=== PATIENT | male | born 1950 | race Two or more races ===

== ENCOUNTER 2018-09-27 13:56 | Inpatient (IN) | payer MEDICARE, OTHER ==
[~2018-09-27] VITALS: Ht 175.3 cm; Wt 74.4 kg
--- NOTE | 2018-09-27 13:52 | Emergency Room Report ---
History of Present Illness General Chief Complaint: Altered Mental Status Source: Patient Present Illness HPI Patient is a 68-year-old male brought in by EMS after increased altered mental status. Patient had recent increased lethargy. Patient a prior history of CVA with right-sided weakness as well as brain tumor. Patient had recently been discharged from [facility]. Patient had been noted to be increased confused for approximate 1 hour. He was noted to have some baseline alteration of his mental status but normally is able to eat as well as to follow simple commands and speak. Allergies: Coded Allergies: No Known Allergies (Unverified , 09/27/18) Patient History Past Medical History: see triage record Reviewed Nursing Documentation: PMH: Agreed; PSxH: Agreed Review of Systems All Other Systems: negative except mentioned in HPI Physical Exam Vital Signs Date Time Temp Pulse Resp B/P (MAP) Pulse Ox O2 Delivery O2 Flow Rate FiO2 09/27/18 13:39 97.5 82 16 118/70 96 Room Air Sp02 EP Interpretation: reviewed, normal General Appearance: alert, Chronically Ill Head: atraumatic ENT: normal ENT inspection, other - nonverbal Neck: supple, no bony tend, limited range of motion Respiratory: normal inspection, lungs clear, normal breath sounds, no respiratory distress, no retraction, no wheezing Cardiovascular #1: regular rate, rhythm, no edema Gastrointestinal: normal inspection, normal bowel sounds, non tender, soft, no guarding, no hernia Genitourinary: no CVA tenderness Neurologic: alert, aphasia, motor weakness - right upper extremity Psychiatric: normal inspection, judgement/insight normal, mood/affect normal Skin: normal inspection, normal color, no rash Medical Decision Making Diagnostic Impression: Primary Impression: Altered mental status Additional Impressions: Brain tumor Seizure disorder ER Course Patient presented for altered mental status. Differential diagnosis included but was not limited to ischemic stroke, subarachnoid hemorrhage, hypoglycemia, spinal cord injury, neurodegenerative disorder, urinary tract infection, hypoxemia. Because of complexity of patient's case laboratory testing and imaging studies were ordered.Laboratory testing was notable for increased Depakote level EKG interpreted by me showed normal sinus rhythm with a rate of [address] or T wave changes. Dr. Camacho Braun was contacted for inpatient management Labs Test 09/27/18 14:10 White Blood Count 6.1 K/UL (4.8-10.8) Red Blood Count 4.25 M/UL (4.70-6.10) Hemoglobin 13.5 G/DL (14.2-18.0) Hematocrit 38.1 % (42.0-52.0) Mean Corpuscular Volume 90 FL (80-99) Mean Corpuscular Hemoglobin 31.7 PG (27.0-31.0) Mean Corpuscular Hemoglobin Concent 35.3 G/DL (32.0-36.0) Red Cell Distribution Width 13.0 % (11.6-14.8) Platelet Count 78 K/UL (150-450) Mean Platelet Volume 8.1 FL (6.5-10.1) Neutrophils (%) (Auto) % (45.0-75.0) Lymphocytes (%) (Auto) % (20.0-45.0) Monocytes (%) (Auto) % (1.0-10.0) Eosinophils (%) (Auto) % (0.0-3.0) Basophils (%) (Auto) % (0.0-2.0) Differential Total Cells Counted 100 Neutrophils % (Manual) 91 % (45-75) Lymphocytes % (Manual) 5 % (20-45) Monocytes % (Manual) 4 % (1-10) Eosinophils % (Manual) 0 % (0-3) Basophils % (Manual) 0 % (0-2) Band Neutrophils 0 % (0-8) Platelet Estimate Decreased Platelet Morphology Normal Red Blood Cell Morphology Normal Prothrombin Time 11.6 SEC (9.30-11.50) Prothromb Time International Ratio 1.1 (0.9-1.1) Activated Partial Thromboplast Time 28 SEC (23-33) Sodium Level 134 MMOL/L (136-145) Potassium Level 4.4 MMOL/L (3.5-5.1) Chloride Level 98 MMOL/L (98-107) Carbon Dioxide Level 27 MMOL/L (21-32) Anion Gap 9 mmol/L (5-15) Blood Urea Nitrogen 18 mg/dL (7-18) Creatinine 0.7 MG/DL (0.55-1.30) Estimat Glomerular Filtration Rate > 60 mL/min (>60) Glucose Level 151 MG/DL (74-106) Lactic Acid Level 3.40 mmol/L (0.4-2.0) Calcium Level 8.4 MG/DL (8.5-10.1) Phosphorus Level 3.3 MG/DL (2.5-4.9) Magnesium Level 1.7 MG/DL (1.8-2.4) Total Bilirubin 0.5 MG/DL (0.2-1.0) Aspartate Amino Transf (AST/SGOT) 25 U/L (15-37) Alanine Aminotransferase (ALT/SGPT) 18 U/L (12-78) Alkaline Phosphatase 43 U/L (46-116) Ammonia 41 umol/L (11-32) Total Creatine Kinase 188 U/L (26-308) Creatine Kinase MB 2.4 NG/ML (0.0-3.6) Creatine Kinase MB Relative Index 1.2 Troponin I 0.165 ng/mL (0.000-0.056) Pro-B-Type Natriuretic Peptide 551 pg/mL (0-125) Total Protein 5.6 G/DL (6.4-8.2) Albumin 2.6 G/DL (3.4-5.0) Globulin 3.0 g/dL Albumin/Globulin Ratio 0.9 (1.0-2.7) Lipase 69 U/L (73-393) Valproic Acid (Depakene) Level 121 MCG/ML (50-100) EKG Diagnostic Results Rate: normal - 75 Rhythm: NSR ST Segments: no acute changes Last Vital Signs Date Time Temp Pulse Resp B/P (MAP) Pulse Ox O2 Delivery O2 Flow Rate FiO2 09/27/18 13:39 97.5 82 16 118/70 96 Room Air Status: unchanged Disposition: ADMITTED INPATIENT Condition: Serious Kristofer Talavera MD Sep 27, 2018 13:52
[2018-09-27 14:00] VITALS: BP 118/70
--- NOTE | 2018-09-27 14:00 | NUR ---
ED Nurse Note: pt brought in to ER by ambulance from [facility] due to AMS. per EMS they got report from [facility] staff that pt has lower mental status which started by 1200 during lunch time. pt non verbal and flat affect. mental status unable to determine at this moment. pt has stroke in the past and has Rt side weakness. pt is at room air and no skin issue noted in anteri Addendum: 09/27/18 at 1614 by [email or web address] ED Nurse Note: pt brought in to ER by ambulance from [facility] due to AMS. per EMS they got report from [facility] staff that pt has lower mental status which started by 1200 during lunch time. pt non verbal and flat affect. mental status unable to determine at this moment. pt has stroke in the past and has Rt side weakness. pt is at room air and no skin issue noted in anterior body. posterior body will be assessed after blood and urine sample collected.
--- NOTE | 2018-09-27 14:20 | NUR ---
ED Nurse Note: Coccyx redness noted. no opened skin lesion noted.
[2018-09-27 14:30] LABS: HEMATOCRIT 38.1 % (42.0-52.0); HEMOGLOBIN 13.5 G/DL (14.2-18.0); MEAN CORPUSCULAR VOLUME 90 FL (80-99); PLATELET COUNT 78 K/UL (150-450); RED BLOOD COUNT 4.25 M/UL (4.70-6.10); WHITE BLOOD COUNT 6.1 K/UL (4.8-10.8)
[2018-09-27 14:38] LABS: ANION GAP 9 mmol/L (5-15); BLOOD UREA NITROGEN 18 mg/dL (7-18); CALCIUM 8.4 MG/DL (8.5-10.1); CARBON DIOXIDE 27 MMOL/L (21-32); CHLORIDE 98 MMOL/L (98-107); CREATININE 0.7 MG/DL (0.55-1.30); INR 1.1 (0.9-1.1); POTASSIUM 4.4 MMOL/L (3.5-5.1); SODIUM 134 MMOL/L (136-145)
[2018-09-27 14:41] LABS: AMMONIA 41 umol/L (11-32)
[2018-09-27 14:55] LABS: ALANINE AMINOTRANSFERASE 18 U/L (12-78); ALBUMIN 2.6 G/DL (3.4-5.0); ALBUMIN/GLOBULIN RATIO 0.9 (1.0-2.7); ALKALINE PHOSPHATASE 43 U/L (46-116); ASPARTATE AMINO TRANSFERASE 25 U/L (15-37); BILIRUBIN,TOTAL 0.5 MG/DL (0.2-1.0); CKMB 2.4 NG/ML (0.0-3.6); CREATINE KINASE 188 U/L (26-308); PHOSPHORUS 3.3 MG/DL (2.5-4.9)
[2018-09-27 15:00] VITALS: BP 126/63
[2018-09-27 15:53] LABS: APPEARANCE,URINE CLEAR; BILIRUBIN, URINE NEGATIVE (NEGATIVE); GLUCOSE, URINE (UA) 1+ (NEGATIVE); KETONES,URINE 3+ (NEGATIVE); LEUKOCYTE ESTERASE ,URINE NEGATIVE (NEGATIVE); NITRITE,URINE NEGATIVE (NEGATIVE); PH,URINE 5 (4.5-8.0); PROTEIN,URINE 1+ (NEGATIVE); UROBILINOGEN,URINE 1 MG/DL (0.0-1.0)
[2018-09-27 15:54] LABS: COLOR,URINE YELLOW
[2018-09-27 16:00] VITALS: BP 129/74
--- NOTE | 2018-09-27 16:34 | NUR ---
ED Nurse Note: Report given to CHIDI Fischer
[2018-09-27] MEDS ORDERED: CARVEDILOL25 MG ORAL (16:55)
[2018-09-27] MEDS ORDERED: GLUCOPHAGE1000 MG ORAL (16:55)
[2018-09-27] MEDS ORDERED: DIVALPROEX SOD500 MG PO (16:55)
[2018-09-27] MEDS ORDERED: LOSARTAN POTAS100 MG ORAL (16:55)
[2018-09-27] MEDS ORDERED: VIMPAT200 MG PO (16:55)
[2018-09-27] MEDS ORDERED: VITAMIN D1000 UNI1 ORAL (16:55)
[2018-09-27] MEDS ORDERED: TEMOZOLOMIDE PO (16:55)
[2018-09-27] MEDS ORDERED: ZANTAC150 MG ORAL (16:55)
[2018-09-27] MEDS ORDERED: ELIQUIS5 MG PO (16:55)
[2018-09-27] MEDS ORDERED: DOCUSATE SODIU100 M2 ORAL (16:55)
[2018-09-27] MEDS ORDERED: LIPITOR80 MG ORAL (16:55)
[2018-09-27] MEDS ORDERED: MIRALAX17 G2 ORAL (16:55)
[2018-09-27] MEDS ORDERED: HUMALOG100 UNIT/4 SUBQ (16:55)
[2018-09-27] MEDS ORDERED: JANUVIA25 MG ORAL (16:55)
[2018-09-27] MEDS ORDERED: DEXAMETHASONE2 MG PO (16:55)
[2018-09-27] MEDS ORDERED: DEPAKOTE125 MG PO ×2 (16:55→16:56)
[2018-09-27 17:00] VITALS: BP 137/82
--- NOTE | 2018-09-27 17:00 | NUR ---
ED Nurse Note: Pt left department with 1 computer system technician and 1 RN in stable condition.
[2018-09-27] MEDS ORDERED: Morphine Sulfate 2mg/ml Inj(IV/IM USE ONLY) IVP PRN (17:45)
[2018-09-27] MEDS ORDERED: Mylanta II UD 30ml ORAL PRN (17:45)
[2018-09-27] MEDS ORDERED: Miralax 17gm pkt ORAL PRN (17:45)
[2018-09-27] MEDS ORDERED: LORazepam Inj 2mg/ml 1ml IV PRN (17:45)
[2018-09-27] MEDS ORDERED: Zolpidem 5mg tab ORAL PRN (17:45)
--- NOTE | 2018-09-27 19:30 | NUR ---
NURSE NOTES: Received report from CHIDI Goodrich. patient seen in bed in semi loza position. alert, but non verbal at this time. no S/Sx of pain is noted via FLACC scale. On room air, no SOB or respiratory distress is noted. IV site is to Left AC 20g and is intact. noted with carroll cath, urine is draining. Bed is in lowest position call light is within easy reach while in bed. will continue to monitor,
[2018-09-27 20:00] VITALS: BP 130/80
--- NOTE | 2018-09-27 20:43 | NUR ---
HAND-OFF: Report given to Radha MURILLO.
[2018-09-27] MEDS: Carvedilol 25mg Tab ORAL SCH (20:52)
[2018-09-27] MEDS: Depakote 500mg tab ORAL SCH (20:53)
[2018-09-27] MEDS: Heparin 5000 units/ml inj SUBQ SCH (20:54)
[2018-09-27] MEDS: NovoLOG Insulin Flexpen SUBQ SCH (20:56)
[2018-09-28] VITALS: BP 131/77
[2018-09-28 04:00] VITALS: BP 122/78
[2018-09-28] MEDS: NovoLOG Insulin Flexpen SUBQ SCH ×4 (06:30→21:33)
--- NOTE | 2018-09-28 07:22 | NUR ---
HAND-OFF: Report given to Jay Kerr RN.
--- NOTE | 2018-09-28 07:31 | NUR ---
NURSE NOTES: Received report from CHIDI Mckoy. Patient in bed resting, no active s/s cardiac, respiratory distress noticed at this time, patient on room air, SR with HR 74, patient nonverbal. Mota catheter draining well to gravity. IV on left AC 20G, asymptomatic, patent, intact. Bed in lowest position, side rails upx3, call light within reach. Will continue to monitor.
[2018-09-28 07:57] LABS: HEMATOCRIT 41.3 % (42.0-52.0); HEMOGLOBIN 14.6 G/DL (14.2-18.0); MEAN CORPUSCULAR VOLUME 89 FL (80-99); PLATELET COUNT 74 K/UL (150-450); RED BLOOD COUNT 4.63 M/UL (4.70-6.10); RED CELL DISTRIBUTION WIDTH 13.1 % (11.6-14.8); WHITE BLOOD COUNT 4.7 K/UL (4.8-10.8)
[2018-09-28 08:00] VITALS: BP 121/66
[2018-09-28 08:29] LABS: ALANINE AMINOTRANSFERASE 16 U/L (12-78); ALBUMIN 2.6 G/DL (3.4-5.0); ALBUMIN/GLOBULIN RATIO 0.9 (1.0-2.7); ALKALINE PHOSPHATASE 38 U/L (46-116); ANION GAP 5 mmol/L (5-15); ASPARTATE AMINO TRANSFERASE 21 U/L (15-37); BILIRUBIN,TOTAL 0.6 MG/DL (0.2-1.0); BLOOD UREA NITROGEN 15 mg/dL (7-18); CALCIUM 8.6 MG/DL (8.5-10.1); CARBON DIOXIDE 31 MMOL/L (21-32); CHLORIDE 100 MMOL/L (98-107); CHOLESTEROL 153 MG/DL (< 200); CREATININE 0.6 MG/DL (0.55-1.30); HDL CHOLESTEROL 29 MG/DL (40-60); POTASSIUM 3.9 MMOL/L (3.5-5.1); SODIUM 136 MMOL/L (136-145); TRIGLYCERIDES 100 MG/DL (30-150)
[2018-09-28] MEDS: Losartan 25mg tab ORAL SCH (08:33)
[2018-09-28] MEDS: sitaGLIPtin 50mg tab ORAL SCH (08:33)
[2018-09-28] MEDS: Heparin 5000 units/ml inj SUBQ SCH ×2 (08:34→21:00)
[2018-09-28] MEDS: Depakote 500mg tab ORAL SCH ×2 (08:34→21:35)
[2018-09-28] MEDS: Carvedilol 25mg Tab ORAL SCH ×2 (08:34→21:35)
--- NOTE | 2018-09-28 10:59 | Consultation ---
History of Present Illness General Date patient seen: Sep 28, 2018 Chief Complaint: Altered Mental Status Present Illness HPI Patient is a 68-year-old male brought in by EMS after increased altered mental status. Patient had recent increased lethargy. Patient a prior history of CVA with right-sided weakness as well as brain tumor. Patient had recently been discharged from [facility]. Patient had been noted to be increased confused for approximate 1 hour. He was noted to have some baseline alteration of his mental status but normally is able to eat as well as to follow simple commands and speak. Allergies: Coded Allergies: No Known Allergies (Unverified , 09/27/18) Medication History Scheduled Atorvastatin (Lipitor), 80 MG ORAL BEDTIME, (Reported) Carvedilol* (Carvedilol*), 25 MG ORAL EVERY 12 HOURS, (Reported) Cholecalciferol (Vitamin D3)* (Vitamin D*), 50,000 UNITS ORAL QWEEK, (Reported) Docusate Sodium (Docusate Sodium), 100 MG ORAL DAILY, (Reported) Lacosamide (Vimpat), 200 MG PO BID, (Reported) Losartan Potassium (Losartan Potassium), 25 MG ORAL DAILY, (Reported) Metformin Hcl (Glucophage), 1,000 MG ORAL DAILY, (Reported) Polyethylene Glycol 3350* (Miralax*), 17 GM ORAL DAILY, (Reported) Ranitidine Hcl* (Zantac*), 150 MG ORAL DAILY, (Reported) Sitagliptin* (Januvia*), 50 MG ORAL DAILY, (Reported) Miscellaneous Medications Apixaban (Eliquis), 5 MG PO, (Reported) Dexamethasone* (Decadron*), 4 MG PO, (Reported) Divalproex Sodium (Depakote), 500 MG PO, (Reported) Divalproex Sodium (Divalproex Sodium), 1,500 MG PO, (Reported) Divalproex Sodium (Depakote), 1,500 MG PO, (Reported) Insulin Lispro (Humalog), 0 SUBQ, (Reported) Temozolomide (Temozolomide), 5 MG PO, (Reported) Patient History Healthcare decision maker N Resuscitation status Full Code Advanced Directive on File No Past Medical/Surgical History Past Medical/Surgical History: (1) Diabetes mellitus (2) Hypertension (3) Brain tumor (4) Seizure disorder Review of Systems Hematologic/Lymphatic: Reports: no symptoms All Other Systems: negative except mentioned in HPI Physical Exam General Appearance: WD/WN Lines, tubes and drains: peripheral HEENT: normocephalic, atraumatic Neck: non-tender, normal alignment Respiratory/Chest: chest wall non-tender, lungs clear Breasts: no masses Cardiovascular/Chest: normal peripheral pulses Abdomen: normal bowel sounds, non tender Genitourinary/Rectal: normal genital exam Extremities: normal range of motion Skin Exam: normal pigmentation Neurologic: core carrier II-XII grossly normal Last 24 Hour Vital Signs Date Time Temp Pulse Resp B/P (MAP) Pulse Ox O2 Delivery O2 Flow Rate FiO2 09/28/18 09:00 Room Air 09/28/18 08:34 78 121/66 09/28/18 08:33 121/66 09/28/18 08:00 80 09/28/18 08:00 96.8 78 19 121/66 (84) 96 09/28/18 04:00 98.1 74 17 122/78 (93) 98 09/28/18 03:22 75 09/28/18 00:00 97.8 79 17 131/77 (95) 97 09/27/18 23:28 79 09/27/18 21:00 Room Air 09/27/18 20:52 90 140/79 09/27/18 20:00 98.0 90 18 130/80 (97) 98 09/27/18 19:40 79 09/27/18 18:00 Room Air 09/27/18 17:00 97.5 93 17 137/82 92 Room Air 09/27/18 17:00 97.5 93 17 137/82 92 Room Air 09/27/18 16:00 98.0 82 16 129/74 96 Room Air 09/27/18 15:00 97.7 80 16 126/63 98 Room Air 09/27/18 14:00 82 16 Room Air 09/27/18 14:00 97.5 73 16 118/70 96 Room Air 09/27/18 13:39 97.5 82 16 118/70 96 Room Air Intake and Output 09/27/18 09/28/18 19:00 07:00 Intake Total 1000 ml 50 ml Output Total 1400 ml 450 ml Balance -400 ml -400 ml Intake Oral 0 ml 50 ml IV Total 1000 ml Output Urine Total 1400 ml 450 ml Laboratory Tests Test 09/27/18 14:10 09/27/18 14:30 09/27/18 17:38 09/28/18 07:25 White Blood Count 6.1 K/UL (4.8-10.8) 4.7 K/UL (4.8-10.8) L Red Blood Count 4.25 M/UL (4.70-6.10) L 4.63 M/UL (4.70-6.10) L Hemoglobin 13.5 G/DL (14.2-18.0) L 14.6 G/DL (14.2-18.0) Hematocrit 38.1 % (42.0-52.0) L 41.3 % (42.0-52.0) L Mean Corpuscular Volume 90 FL (80-99) 89 FL (80-99) Mean Corpuscular Hemoglobin 31.7 PG (27.0-31.0) H 31.6 PG (27.0-31.0) H Mean Corpuscular Hemoglobin Concent 35.3 G/DL (32.0-36.0) 35.4 G/DL (32.0-36.0) Red Cell Distribution Width 13.0 % (11.6-14.8) 13.1 % (11.6-14.8) Platelet Count 78 K/UL (150-450) L 74 K/UL (150-450) L Mean Platelet Volume 8.1 FL (6.5-10.1) 6.9 FL (6.5-10.1) Neutrophils (%) (Auto) % (45.0-75.0) % (45.0-75.0) Lymphocytes (%) (Auto) % (20.0-45.0) % (20.0-45.0) Monocytes (%) (Auto) % (1.0-10.0) % (1.0-10.0) Eosinophils (%) (Auto) % (0.0-3.0) % (0.0-3.0) Basophils (%) (Auto) % (0.0-2.0) % (0.0-2.0) Differential Total Cells Counted 100 100 Neutrophils % (Manual) 91 % (45-75) H 66 % (45-75) Lymphocytes % (Manual) 5 % (20-45) L 8 % (20-45) L Monocytes % (Manual) 4 % (1-10) 15 % (1-10) H Eosinophils % (Manual) 0 % (0-3) 0 % (0-3) Basophils % (Manual) 0 % (0-2) 0 % (0-2) Band Neutrophils 0 % (0-8) 11 % (0-8) H Platelet Estimate Decreased L Decreased L Platelet Morphology Normal Normal Red Blood Cell Morphology Normal Normal Prothrombin Time 11.6 SEC (9.30-11.50) H Prothromb Time International Ratio 1.1 (0.9-1.1) Activated Partial Thromboplast Time 28 SEC (23-33) Sodium Level 134 MMOL/L (136-145) L 136 MMOL/L (136-145) Potassium Level 4.4 MMOL/L (3.5-5.1) 3.9 MMOL/L (3.5-5.1) Chloride Level 98 MMOL/L (98-107) 100 MMOL/L (98-107) Carbon Dioxide Level 27 MMOL/L (21-32) 31 MMOL/L (21-32) Anion Gap 9 mmol/L (5-15) 5 mmol/L (5-15) Blood Urea Nitrogen 18 mg/dL (7-18) 15 mg/dL (7-18) Creatinine 0.7 MG/DL (0.55-1.30) 0.6 MG/DL (0.55-1.30) Estimat Glomerular Filtration Rate > 60 mL/min (>60) > 60 mL/min (>60) Glucose Level 151 MG/DL (74-106) H 89 MG/DL (74-106) Lactic Acid Level 3.40 mmol/L (0.4-2.0) H 3.60 mmol/L (0.66-2.22) H Calcium Level 8.4 MG/DL (8.5-10.1) L 8.6 MG/DL (8.5-10.1) Phosphorus Level 3.3 MG/DL (2.5-4.9) Magnesium Level 1.7 MG/DL (1.8-2.4) L Total Bilirubin 0.5 MG/DL (0.2-1.0) 0.6 MG/DL (0.2-1.0) Aspartate Amino Transf (AST/SGOT) 25 U/L (15-37) 21 U/L (15-37) Alanine Aminotransferase (ALT/SGPT) 18 U/L (12-78) 16 U/L (12-78) Alkaline Phosphatase 43 U/L (46-116) L 38 U/L (46-116) L Ammonia 41 umol/L (11-32) H Total Creatine Kinase 188 U/L (26-308) Creatine Kinase MB 2.4 NG/ML (0.0-3.6) Creatine Kinase MB Relative Index 1.2 Troponin I 0.165 ng/mL (0.000-0.056) Pro-B-Type Natriuretic Peptide 551 pg/mL (0-125) H Total Protein 5.6 G/DL (6.4-8.2) L 5.5 G/DL (6.4-8.2) L Albumin 2.6 G/DL (3.4-5.0) L 2.6 G/DL (3.4-5.0) L Globulin 3.0 g/dL 2.9 g/dL Albumin/Globulin Ratio 0.9 (1.0-2.7) L 0.9 (1.0-2.7) L Lipase 69 U/L (73-393) L Valproic Acid (Depakene) Level 121 MCG/ML (50-100) *H Urine Color Yellow Urine Appearance Clear Urine pH 5 (4.5-8.0) Urine Specific [place] 1.020 (1.005-1.035) Urine Protein 1+ (NEGATIVE) H Urine Glucose (UA) 1+ (NEGATIVE) H Urine Ketones 3+ (NEGATIVE) H Urine Blood Negative (NEGATIVE) Urine Nitrite Negative (NEGATIVE) Urine Bilirubin Negative (NEGATIVE) Urine Urobilinogen 1 MG/DL (0.0-1.0) H Urine Leukocyte Esterase Negative (NEGATIVE) Urine RBC 0-2 /HPF (0 - 0) H Urine WBC 0-2 /HPF (0 - 0) Urine Squamous Epithelial Cells None /LPF (NONE/OCC) Urine Bacteria Few /HPF (NONE) Triglycerides Level 100 MG/DL (30-150) Cholesterol Level 153 MG/DL (< 200) LDL Cholesterol 104 mg/dL (<100) H HDL Cholesterol 29 MG/DL (40-60) L Cholesterol/HDL Ratio 5.3 (3.3-4.4) H Height (Feet): 5 Height (Inches): 9.00 Weight (Pounds): 165 Medications Current Medications Medications (Trade) Dose Ordered Sig/Chace Route PRN Reason Start Time Stop Time Status Last Admin Dose Admin Acetaminophen (Tylenol) 650 mg Q4H PRN ORAL fever 09/27/18 17:45 10/27/18 17:44 Al Hydroxide/Mg Hydroxide (Mylanta II) 30 ml Q6H PRN ORAL dyspepsia 09/27/18 17:45 10/27/18 17:44 Carvedilol (Coreg) 25 mg EVERY 12 HOURS ORAL 09/27/18 21:00 10/27/18 20:59 09/28/18 08:34 Dexamethasone (Decadron) 4 mg DAILY ORAL 09/28/18 09:00 10/28/18 08:59 09/28/18 08:34 Dextrose (Dextrose 50%) 25 ml Q30M PRN IV Hypoglycemia 09/27/18 17:45 10/27/18 17:44 Dextrose (Dextrose 50%) 50 ml Q30M PRN IV Hypoglycemia 09/27/18 17:45 10/27/18 17:44 Divalproex Sodium (Depakote) 1,500 mg EVERY 12 HOURS ORAL 09/27/18 21:00 10/27/18 20:59 09/28/18 08:34 Heparin Sodium (Porcine) (Heparin 5000 units/ml) 5,000 units EVERY 12 HOURS SUBQ 09/27/18 21:00 10/27/18 20:59 Insulin Aspart (NovoLOG) BEFORE MEALS AND HS SUBQ 09/27/18 21:00 10/27/18 20:59 09/27/18 20:56 Lorazepam (Ativan 2mg/ml 1ml) 0.5 mg Q4H PRN IV For Anxiety 09/27/18 17:45 10/04/18 17:44 Losartan Potassium (Cozaar) 25 mg DAILY ORAL 09/28/18 09:00 10/28/18 08:59 09/28/18 08:33 Morphine Sulfate (Morphine Sulfate) 1 mg Q4H PRN IVP For Pain 09/27/18 17:45 10/04/18 17:44 Ondansetron HCl (Zofran) 4 mg Q6H PRN IVP Nausea & Vomiting 09/27/18 17:45 10/27/18 17:44 Polyethylene Glycol (Miralax) 17 gm HSPRN PRN ORAL Constipation 09/27/18 17:45 10/27/18 17:44 Sitagliptin Phosphate (Januvia) 50 mg DAILY ORAL 09/28/18 09:00 10/28/18 08:59 09/28/18 08:33 Zolpidem Tartrate (Ambien) 5 mg HSPRN PRN ORAL Insomnia 09/27/18 17:45 10/04/18 17:44 Assessment/Plan Problem List: (1) Acute encephalopathy ICD Codes: G93.40 - Encephalopathy, unspecified SNOMED: 94871313, 403245898 (2) Seizure disorder ICD Codes: G40.909 - Epilepsy, unspecified, not intractable, without status epilepticus SNOMED: 572851177 (3) Brain tumor ICD Codes: D49.6 - Neoplasm of unspecified behavior of brain SNOMED: 484844447 (4) Hypertension ICD Codes: I10 - Essential (primary) hypertension SNOMED: 32727804 (5) Diabetes mellitus ICD Codes: E11.9 - Type 2 diabetes mellitus without complications SNOMED: 17655953 Assessment/Plan Neuro evaluation check cultures sliding scale unknown baseline mental status. currently not communicating, seems awake On Epixiban, high risk fo fall b/o seizure disorder. => get Echo and doppler of legs. Raul Feng MD Sep 28, 2018 10:59
--- NOTE | 2018-09-28 11:34 | Diagnostic Imaging Report ---
Indication: Chest pain, shortness of breath Technique: One view of the chest Comparison: none Findings: Lungs and pleural spaces are clear. Heart size is normal. Right hemidiaphragm is elevated. There are degenerative changes of the thoracic spine Impression: No acute process
--- NOTE | 2018-09-28 11:39 | Diagnostic Imaging Report ---
Indications: Altered mental status Technique: Spiral acquisitions obtained through the brain. Angled axial and coronal 5 x 5 mm slices were reconstructed. Total dose length product 1467.1 mGycm. CTDI vol(s) 70.38 mGy. Dose reduction achieved using automated exposure control Comparison: None. Findings: There is a large area of encephalomalacia involving the left parietal and temporal lobes, and to a slight extent the fourth posterior frontal lobe. This extends also slightly into the basal ganglia There is a calcification at the periphery of the area of encephalomalacia which may be dystrophic related to such. There is minimal ex vacuo dilatation of the body of the left lateral ventricle has resolved. No acute intracranial hemorrhage nor edema, mass effect, nor midline shift. There is generalized age-related enlargement of the ventricles and extra axial CSF spaces, former somewhat out of proportion to the latter. The calvarium demonstrates a small focal temporal craniotomy/craniectomy defect overlying the calcification and encephalomalacia. The mastoids are clear. The visualized orbits and sinuses are unremarkable. Impression: Negative for acute intracranial bleed or mass effect Evidence of left focal temporal craniotomy. Underlying encephalomalacia, suspect related to such, could also indicate an old infarct. Correlate with clinical and surgical history Small calcification at the periphery of the area of encephalomalacia, probably dystrophic related to such, but could also indicate old cysticercosis or small vascular malformation Ventriculomegaly, somewhat out of proportion to degree of sulcal dilatation. Probably due to predominantly central cerebral volume, normal pressure hydrocephalus also possible This agrees with the preliminary interpretation provided overnight by [facility] teleradiology service. The CT scanner at [facility] is accredited by the [employer] and the scans are performed using protocols designed to limit radiation exposure to as low as reasonably achievable to attain images of sufficient resolution adequate for diagnostic evaluation.
[2018-09-28 12:00] VITALS: BP_SYST 100; BP_SYST 101; BP_DIAS 58
--- NOTE | 2018-09-28 13:16 | NUR ---
CASE MANAGEMENT:REVIEW 68 YR OLD MALE BIBA FROM [facility]; AMS SI:AMS. SEIZURE DISORDER. BRAIN TUMOR 97.5 82 16 118/70 96% ON RA PLT-78 LACTIC ACID+3.40 TROPONIN(+) 0.165 IS: 1L NS BOLUS X1 CT HEAD CHEST XRAY BLOOD CX : TO TELEMETRY PLAN: NEURO CHECKS Q4HRS
[2018-09-28 16:00] VITALS: BP 106/64
--- NOTE | 2018-09-28 18:10 | Physician Query ---
--------- THIS DOCUMENT IS A PERMANENT PART OF THE MEDICAL RECORD --------- PLEASE COMPLETE DOCUMENT BEFORE SIGNING Dear Dr. ROMANO Date: 09/29/2018 Chief Substation Operator/CDS Name:RODOLFO LÓPEZ Exercise your independent professional judgment when responding to query. Question asked do not imply a particular answer is desired/expected. Clinical Documentation States: "Altered Mental Status / Confusion / ALOC" documented in Patient is a 68-year-old male brought in by EMS after increased altered mental status, was diagnosed per cons note with Epilepsy, unspecified, not intractable , without status epilepticus. Lactic acid: 3.4,3.6 H Ammonia: 41H Ca: 8.4L,8.6 Na:134 CT: Evidence of left focal temporal craniotomy. Underlying encephalomalacia, suspect related to such, could also indicate an old infarct. Past Medical/Surgical History: (1) Diabetes mellitus(2) Hypertension(3) Brain tumor (4) Seizure disorder Acute encephalopathy was mentioned as another diagnosis. Please indicate the nature and chronicity of the condition below: [x] Metabolic Encephalopathy [] Toxic Encephalopathy [] Toxic - Metabolic Encephalopathy [] Progressive Encephalopathy [] Encephalopathy, Other [] Other: [] Not Applicable Severity [] Acute [] Chronic [x] Acute on Chronic [] Unable to determine Condition Present on Admission: [x] Yes [] No []Clinically Undeterminable Please also document in your Progress Notes and/or Discharge Summary and indicate if the condition was present on admission. BASILIO ROMANO M.D. DATE & TIME [facility]
--- NOTE | 2018-09-28 19:08 | Cardiology Report ---
APPROVED REPORT EXAM: Two-dimensional and M-mode echocardiogram with Doppler and color Doppler. M-Mode DIMENSIONS IVSd0.8 (0.7-1.1cm)Left Atrium (MM)2.9 (1.6-4.0cm) LVDd5.2 (3.5-5.6cm)Aortic Root3.2 (2.0-3.7cm) PWd1.1 (0.7-1.1cm)Aortic Cusp Exc.1.7 (1.5-2.0cm) IVSs1.0 cm LVDs4.3 (2.5-4.0cm) PWs1.3 cm Other Information Technically limited study due to poor acoustical windows . Normal left ventricular chamber size, inferoseptal wall hypokinesis . Study quality precludes accurate assessment of regional wall motion. Mid to apical anteroseptal wall, apical cap and apical septal wall hypokinesia with left ventricular ejection fraction estimated at 45-50%. Ischemic cardiomyopathy cannot be excluded. Mild left ventricular hypertrophy by 2-D. Anterior Echo-free space, may be due to pericardial fat or effusion. All other cardiac chamber sizes are within normal limits . Aortic valve calcification with normal cusp excursion . Mildly thickened mitral valve leaflets with normal excursion. Mitral annulus and aortic root calcification. Pulmonic valve not well visualized. IVC at normal size with physiologic collapse . A color flow and spectral Doppler study was performed and revealed: No aortic insufficiency . Mitral diastolic velocities suggest reduced left ventricular relaxation c/w mild LV diastolic dysfunction (Grade I ) Trace mitral regurgitation. Trace tricuspid regurgitation. Tricuspid systolic velocities suggests peak right ventricular systolic pressure of 11 mmHg.
--- NOTE | 2018-09-28 19:40 | Cardiology Report ---
APPROVED REPORT EKG Measurement Heart [id number] Normal sinus rhythm Right axis deviation Anteroseptal infarct, age undetermined T wave abnormality, consider inferior ischemia Abnormal ECG
--- NOTE | 2018-09-28 19:42 | NUR ---
HAND-OFF: Report given to CHIDI Miner.
[2018-09-28 20:00] VITALS: BP 112/64
--- NOTE | 2018-09-28 20:53 | History & Physical ---
History and Physical History & Physicial Dictated for Int Med-Dr Carr no. Jesus Kidd MD Sep 28, 2018 20:53
[2018-09-29] VITALS: BP 101/64
--- NOTE | 2018-09-29 02:05 | NUR ---
NURSE NOTES:Patient Transferred from [facility] to [address] [place] [address] 2 received report from Kristofer NavasPatient A/A/OX1 . called by name only . patient non verbal. FLACC scale . no pain .no s/s of distress LAC G#20 H/L Patent and intact carroll catheter draining well to gravity 400cc yellow color urine . sacral redness photo taken by Kristofer Pineda IN [facility] nurse and states he will upload the photo in the computer .sizure precautions side rails are padded . no activity of seizure at this time . call light within reach . bed i low position at all times . Addendum: 09/29/18 at 0749 by JACK HALLMAN LVN Sacral wound cleaned with soap and water skin barrier cream applied and covered with Optifoam .
[2018-09-29 04:00] VITALS: BP 110/66
[2018-09-29] MEDS: NovoLOG Insulin Flexpen SUBQ SCH ×4 (06:30→22:05)
[2018-09-29 06:37] LABS: HEMATOCRIT 38.5 % (42.0-52.0); HEMOGLOBIN 13.6 G/DL (14.2-18.0); MEAN CORPUSCULAR VOLUME 90 FL (80-99); PLATELET COUNT 73 K/UL (150-450); RED BLOOD COUNT 4.28 M/UL (4.70-6.10); WHITE BLOOD COUNT 4.4 K/UL (4.8-10.8)
[2018-09-29 07:00] LABS: ALANINE AMINOTRANSFERASE 21 U/L (12-78); ALBUMIN 2.4 G/DL (3.4-5.0); ALBUMIN/GLOBULIN RATIO 0.8 (1.0-2.7); ALKALINE PHOSPHATASE 36 U/L (46-116); ANION GAP 2 mmol/L (5-15); ASPARTATE AMINO TRANSFERASE 25 U/L (15-37); BILIRUBIN,TOTAL 0.4 MG/DL (0.2-1.0); BLOOD UREA NITROGEN 16 mg/dL (7-18); CALCIUM 8.6 MG/DL (8.5-10.1); CARBON DIOXIDE 35 MMOL/L (21-32); CHLORIDE 102 MMOL/L (98-107); CREATININE 0.9 MG/DL (0.55-1.30); PHOSPHORUS 3.3 MG/DL (2.5-4.9); POTASSIUM 4.1 MMOL/L (3.5-5.1); SODIUM 139 MMOL/L (136-145)
--- NOTE | 2018-09-29 07:20 | NUR ---
HAND-OFF: Report given to SUZIE Pineda AND TO FOLLOW UP AND CONSULT WOUND CARE NURSE..
--- NOTE | 2018-09-29 07:42 | NUR ---
NURSE NOTES: Pt son called at start of shift inquiring on pt status and improvement. Pollo Alberts Jr wanted to know if his father was eating. Family member informed that breakfast has just started . Ocean Biologist informed family member to call back after assessment. Pt fed refused eggs toast required complete assistance, with meal time. Pt ate only hot cereal. Sacral Area redness , requires re-assessment . Wound consult in place , special mattress ordered
[2018-09-29 08:00] VITALS: BP 119/72
[2018-09-29] MEDS: sitaGLIPtin 50mg tab ORAL SCH (08:47)
[2018-09-29] MEDS: Carvedilol 25mg Tab ORAL SCH ×2 (08:47→21:00)
[2018-09-29] MEDS: Heparin 5000 units/ml inj SUBQ SCH (08:47)
[2018-09-29] MEDS: Losartan 25mg tab ORAL SCH (09:00)
--- NOTE | 2018-09-29 09:02 | NUR ---
NURSE NOTES: Dr Braun phoned to report pt platelet at 73, along with routine order of heparin. Heparin not given awaiting Dr phone call for approval. also phoned in [id number] to Depakote 1500 mg per report pt has difficulty swallowing, and Depakote is entercoated non crushable. Call placed to pharmacy for equivalent dose in liquid Depakene. 1500 mg. Pt has sz disorder, bed rails are padded
--- NOTE | 2018-09-29 09:10 | NUR ---
NURSE NOTES: Will reassess pt blood pressure . after use of Coreg , Cozaar not given to monitor potential risk of hypotensive episode
--- NOTE | 2018-09-29 10:08 | NUR ---
NURSE NOTES: Follow call made to Dr. Braun in regards Depakote medication, and Heparin order platelet currently 73
--- NOTE | 2018-09-29 11:01 | Diagnostic Imaging Report ---
APPROVED REPORT CPT Code: 73732 Present Symptoms Comments: BILATERAL LEGS PAIN. BILATERAL: Imaging reveals a patent deep venous system bilaterally. There is no evidence of thrombus within the femoral, popliteal or tibial segments. The greater saphenous veins are also within normal limits. Doppler indicates normal spontaneous flow within these segments.
--- NOTE | 2018-09-29 11:18 | NUR ---
NURSE NOTES: Dr Braun called for microbiology called pt has gram positive cocci in clusters. Mahad Timmydoug palced on ID consult. Pharmacy called typewriter assembly and parts inspector to recommend that dose be divided into Q8 . Depakote order requires clarification 2 to high Valproic Acid level. Pt currently does not have a fever, level of consciousness is clearer. Pt is responding verbally which is an improvement in condition , since pt has been nonverbal since admittance. Will update notes when necessary.
--- NOTE | 2018-09-29 11:49 | NUR ---
NURSE NOTES: Area to sacral area reassessed pictures on admittance note DTI. Measuring at 9.0 x 6.5 . Mattress is pending delivery orders will be clarified as DTI protocol measures
[2018-09-29 12:00] VITALS: BP 128/82
--- NOTE | 2018-09-29 12:05 | Pulmonology Progress Note ---
Assessment/Plan Problems: (1) Acute encephalopathy (2) Seizure disorder (3) Brain tumor (4) Hypertension (5) Diabetes mellitus Assessment/Plan decrease Depakote increase morphin swallow study sliding scale seizure precaution social service consult. Subjective ROS Limited/Unobtainable: No Interval Events: crying and begging, "please kill me" Allergies: Coded Allergies: No Known Allergies (Unverified , 09/27/18) Objective Last 24 Hour Vital Signs Date Time Temp Pulse Resp B/P (MAP) Pulse Ox O2 Delivery O2 Flow Rate FiO2 09/29/18 09:00 Room Air 09/29/18 09:00 119/72 09/29/18 08:47 77 119/72 09/29/18 08:00 97.8 18 119/72 (88) 97 09/29/18 04:00 97.3 80 20 110/66 (81) 97 09/29/18 00:00 97.7 83 20 101/64 (76) 98 09/29/18 00:00 83 09/28/18 21:35 81 112/64 09/28/18 21:00 Room Air 09/28/18 20:00 97.3 85 20 112/64 (80) 97 09/28/18 20:00 85 09/28/18 16:00 84 09/28/18 16:00 96.2 88 20 106/64 (78) 97 Intake and Output 09/28/18 09/29/18 19:00 07:00 Intake Total 720 ml 240 ml Output Total 300 ml 600 ml Balance 420 ml -360 ml Intake Oral 720 ml 240 ml Output Urine Total 300 ml 600 ml # Bowel Movements 1 General Appearance: cachetic HEENT: normocephalic, atraumatic Respiratory/Chest: chest wall non-tender, lungs clear Cardiovascular: normal peripheral pulses, normal rate Abdomen: normal bowel sounds, no organomegaly Genitourinary: normal external genitalia Skin: no rash Neurologic/Psychiatric: marriage performer II-XII grossly normal Lymphatic: no neck adenopathy Microbiology Date/Time Source Procedure Growth Status 09/27/18 14:10 Blood Blood Culture - Preliminary NO GROWTH AFTER 24 HOURS Resulted 09/27/18 13:55 Blood Blood Culture - Preliminary Resulted 09/27/18 16:30 Nasal Nares Left MRSA Culture - Final NO METHICILLIN RESISTANT STAPH AUREUS... Complete 09/27/18 16:30 Rectum VRE Culture - Final NO VANCOMYCIN RESISTANT ENTEROCOCCUS ... Complete 09/27/18 16:30 Rectum - Final NO CARBAPENEM-RESISTANT ENTEROBACTERI... Complete Laboratory Tests 09/29/18 06:00: White Blood Count 4.4L, Red Blood Count 4.28L, Hemoglobin 13.6L, Hematocrit 38.5L, Mean Corpuscular Volume 90, Mean Corpuscular Hemoglobin 31.7H, Mean Corpuscular Hemoglobin Concent 35.2, Red Cell Distribution Width 13.0, Platelet Count 73L, Mean Platelet Volume 7.2, Neutrophils (%) (Auto) , Lymphocytes (%) ( Auto) , Monocytes (%) (Auto) , Eosinophils (%) (Auto) , Basophils (%) (Auto) , Differential Total Cells Counted 100, Neutrophils % (Manual) 77H, Lymphocytes % (Manual) 11L, Monocytes % (Manual) 8, Eosinophils % (Manual) 4H, Basophils % ( Manual) 0, Band Neutrophils 0, Platelet Estimate DecreasedL, Platelet Morphology Normal, Red Blood Cell Morphology Normal, Erythrocyte Sedimentation Rate 8, Sodium Level 139, Potassium Level 4.1, Chloride Level 102, Carbon Dioxide Level 35H, Anion Gap 2L, Blood Urea Nitrogen 16, Creatinine 0.9, Estimat Glomerular Filtration Rate > 60, Glucose Level 110H, Calcium Level 8.6, Phosphorus Level 3.3, Magnesium Level 1.7L, Total Bilirubin 0.4, Aspartate Amino Transf (AST/SGOT) 25, Alanine Aminotransferase (ALT/SGPT) 21, Alkaline Phosphatase 36L, C-Reactive Protein, Quantitative 11.4H, Total Protein 5.3L, Albumin 2.4L, Globulin 2.9, Albumin/Globulin Ratio 0.8L Current Medications Medications (Trade) Dose Ordered Sig/Chace Route PRN Reason Start Time Stop Time Status Last Admin Dose Admin Acetaminophen (Tylenol) 650 mg Q4H PRN ORAL fever 09/27/18 17:45 10/27/18 17:44 Al Hydroxide/Mg Hydroxide (Mylanta II) 30 ml Q6H PRN ORAL dyspepsia 09/27/18 17:45 10/27/18 17:44 Carvedilol (Coreg) 25 mg EVERY 12 HOURS ORAL 09/27/18 21:00 10/27/18 20:59 09/29/18 08:47 Dexamethasone (Decadron) 4 mg DAILY ORAL 4/8/19 09:00 10/28/18 08:59 09/29/18 08:47 Dextrose (Dextrose 50%) 25 ml Q30M PRN IV Hypoglycemia 09/27/18 17:45 10/27/18 17:44 Dextrose (Dextrose 50%) 50 ml Q30M PRN IV Hypoglycemia 09/27/18 17:45 10/27/18 17:44 Heparin Sodium (Porcine) (Heparin 5000 units/ml) 5,000 units EVERY 12 HOURS SUBQ 09/27/18 21:00 10/27/18 20:59 Insulin Aspart (NovoLOG) BEFORE MEALS AND HS SUBQ 09/27/18 21:00 10/27/18 20:59 09/28/18 21:33 Lorazepam (Ativan 2mg/ml 1ml) 0.5 mg Q4H PRN IV For Anxiety 09/27/18 17:45 10/04/18 17:44 Losartan Potassium (Cozaar) 25 mg DAILY ORAL 09/28/18 09:00 10/28/18 08:59 09/28/18 08:33 Morphine Sulfate (Morphine Sulfate) 1 mg Q4H PRN IVP For Pain 09/27/18 17:45 10/04/18 17:44 Ondansetron HCl (Zofran) 4 mg Q6H PRN IVP Nausea & Vomiting 09/27/18 17:45 10/27/18 17:44 Polyethylene Glycol (Miralax) 17 gm HSPRN PRN ORAL Constipation 09/27/18 17:45 10/27/18 17:44 Sitagliptin Phosphate (Januvia) 50 mg DAILY ORAL 09/28/18 09:00 10/28/18 08:59 09/29/18 08:47 Valproic Acid (Depakene) 1,500 mg EVERY 12 HOURS NG 09/29/18 21:00 10/29/18 20:59 UNV Zolpidem Tartrate (Ambien) 5 mg HSPRN PRN ORAL Insomnia 09/27/18 17:45 10/04/18 17:44 Raul Feng MD Sep 29, 2018 12:05
--- NOTE | 2018-09-29 12:11 | NUR ---
NURSE NOTES: Dr Feng here orders reviewed , and changed. Heparin order discontinued DVT prevention changed to SCD. Dr also made aware DTI, and valporic acid level
--- NOTE | 2018-09-29 13:44 | NUR ---
NURSE NOTES: Pt given pain medication visibly restless , is able to verbalize that he is in pain yet unable to clearly understand ,numerical pain scale 1/10. FLACC scale used rated. Pain level 4 when assessment complete. Will reassess pain medication when indicated
[2018-09-29] MEDS ORDERED: Morphine Sulfate 2mg/ml Inj(IV/IM USE ONLY) IVP PRN (13:45)
[2018-09-29] MEDS ORDERED: Valproic Acid 250mg/5ml Liquid ORAL SCH (14:00)
--- NOTE | 2018-09-29 14:18 | NUR ---
NURSE NOTES:WOUND CARE NOTES:Pt presented on admission with DTPI with small opening over coccyx. Base of wound fluctuant,purple with maroon borders. (L)9cm x (W)6.5cm. Non-blanchable erythema without induration periwound. Bilat elbows and bilat heels are pink and blanchable.No other skin concerns noted. Tx.Plan: Cleanse sacral wound with Saline.Apply Triad Paste. Cover with Optifoam drsg. Change every 3 days and prn. Apply Cavilon Skin Barrier to both heels. Cover each heel with Optifoam drsg. Change every 7 days and prn. APM/ADRIAN Mattress overlay. Reposition at least every 2 hours or as tolerated. Off-load heels with pillow.
--- NOTE | 2018-09-29 14:36 | NUR ---
RD ASSESSMENT & RECOMMENDATIONS SEE CARE ACTIVITY FOR COMPLETE ASSESSMENT DAILY ESTIMATED NEEDS: Needs based on Wound, cardiac, DM/ 64.5kg 25-30 kcals/kg 8202-0983 total kcals 1.25-1.5 g protein/kg 80-96 g total protein 25-30 mL/kg 0621-0855 total fluid mLs NUTRITION DIAGNOSIS: * Increased kcal/prot needs R/T wound healing as evidenced by sacral wound, pending eval. * Altered nutrition related lab values R/T h/o DM, clinical condition as evidenced by elev POC glu (81-197), low mag (1.7), elev NH3 (41). CURRENT DIET:CCHO MED, regular PO DIET RECOMMENDATIONS: CCHO MED, LOW NA/ texture per CONCERT OR LECTURE HALL MANAGER ADDITIONAL RECOMMENDATIONS: * Calibrated bedscale wt for accurate CBW * Wound healing: add MVI x 1, Vit C 500mg QD, Ziyad 1pkt BID : f/up w/ WC eval * Monitor lytes, replete as needed (low mag) * Monitor BGs closely- h/o DM, on Decadron * A1C for eval of glycemic control
--- NOTE | 2018-09-29 15:20 | NUR ---
CASE MANAGEMENT:REVIEW 09/29/18 SI: ACUTE ENCEPHALOPATHY SEIZURE D/O 98.3 75 18 128/82 98% ON RA H/H-13.6/38.5 PLT-73 IS: DEPAKENE PO Q12 METHADONE PO Q4HRS PRN DECADRON PO QD : MED/SURG STATUS 3 EAST DCP: FROM [facility]: SWALLOW STUDY SEIZURE PRECAUTIONS
[2018-09-29 16:00] VITALS: BP 108/70
--- NOTE | 2018-09-29 18:50 | Consultation ---
History of Present Illness General Date patient seen: Sep 29, 2018 Chief Complaint: Altered Mental Status Present Illness HPI This is a 68-year-old male who was brought to [facility] for evaluation of altered level of consciousness and lethargy. Patient with history of CVA and brain tumor. On admission patient was identified to have a deep tissue pressure injury on the sacrum. Wound requiring care. Surgery called to evaluate and assist with management. Patient seen, patient evaluated , chart reviewed. Patient awake and alert. From report patient is at times talkative but currently he is not involved in examination or giving history. Allergies: Coded Allergies: No Known Allergies (Unverified , 09/27/18) Medication History Scheduled Atorvastatin (Lipitor), 80 MG ORAL BEDTIME, (Reported) Carvedilol* (Carvedilol*), 25 MG ORAL EVERY 12 HOURS, (Reported) Cholecalciferol (Vitamin D3)* (Vitamin D*), 50,000 UNITS ORAL QWEEK, (Reported) Docusate Sodium (Docusate Sodium), 100 MG ORAL DAILY, (Reported) Lacosamide (Vimpat), 200 MG PO BID, (Reported) Losartan Potassium (Losartan Potassium), 25 MG ORAL DAILY, (Reported) Metformin Hcl (Glucophage), 1,000 MG ORAL DAILY, (Reported) Polyethylene Glycol 3350* (Miralax*), 17 GM ORAL DAILY, (Reported) Ranitidine Hcl* (Zantac*), 150 MG ORAL DAILY, (Reported) Sitagliptin* (Januvia*), 50 MG ORAL DAILY, (Reported) Miscellaneous Medications Apixaban (Eliquis), 5 MG PO, (Reported) Dexamethasone* (Decadron*), 4 MG PO, (Reported) Divalproex Sodium (Depakote), 500 MG PO, (Reported) Divalproex Sodium (Divalproex Sodium), 1,500 MG PO, (Reported) Divalproex Sodium (Depakote), 1,500 MG PO, (Reported) Insulin Lispro (Humalog), 0 SUBQ, (Reported) Temozolomide (Temozolomide), 5 MG PO, (Reported) Patient History Limited by: medical condition History Provided By: Medical Record, PMD Healthcare decision maker N Resuscitation status Full Code Advanced Directive on File No Past Medical/Surgical History Past Medical/Surgical History: (1) Acute encephalopathy (2) Seizure disorder (3) Altered mental status (4) Brain tumor (5) Diabetes mellitus (6) Hypertension Review of Systems ROS Narrative Cannot obtain given patient's current medical condition. Physical Exam General Appearance: no apparent distress, confused Lines, tubes and drains: peripheral HEENT: mucous membranes moist Neck: normal inspection Respiratory/Chest: normal breath sounds, no respiratory distress, no accessory muscle use Cardiovascular/Chest: normal rate, regular rhythm Abdomen: soft, no organomegaly, no mass Extremities: non-tender, normal inspection Skin Exam: warm/dry Neurologic: alert Last 24 Hour Vital Signs Date Time Temp Pulse Resp B/P (MAP) Pulse Ox O2 Delivery O2 Flow Rate FiO2 09/29/18 16:00 98.0 79 18 108/70 (83) 98 09/29/18 12:00 98.3 75 18 128/82 (97) 98 09/29/18 09:00 Room Air 09/29/18 09:00 119/72 09/29/18 08:47 77 119/72 09/29/18 08:00 97.8 18 119/72 (88) 97 09/29/18 04:00 97.3 80 20 110/66 (81) 97 09/29/18 00:00 97.7 83 20 101/64 (76) 98 09/29/18 00:00 83 09/28/18 21:35 81 112/64 09/28/18 21:00 Room Air 09/28/18 20:00 97.3 85 20 112/64 (80) 97 09/28/18 20:00 85 Intake and Output 09/28/18 09/29/18 19:00 07:00 Intake Total 720 ml 240 ml Output Total 300 ml 600 ml Balance 420 ml -360 ml Intake Oral 720 ml 240 ml Output Urine Total 300 ml 600 ml # Bowel Movements 1 Laboratory Tests Test 09/29/18 06:00 White Blood Count 4.4 K/UL (4.8-10.8) L Red Blood Count 4.28 M/UL (4.70-6.10) L Hemoglobin 13.6 G/DL (14.2-18.0) L Hematocrit 38.5 % (42.0-52.0) L Mean Corpuscular Volume 90 FL (80-99) Mean Corpuscular Hemoglobin 31.7 PG (27.0-31.0) H Mean Corpuscular Hemoglobin Concent 35.2 G/DL (32.0-36.0) Red Cell Distribution Width 13.0 % (11.6-14.8) Platelet Count 73 K/UL (150-450) L Mean Platelet Volume 7.2 FL (6.5-10.1) Neutrophils (%) (Auto) % (45.0-75.0) Lymphocytes (%) (Auto) % (20.0-45.0) Monocytes (%) (Auto) % (1.0-10.0) Eosinophils (%) (Auto) % (0.0-3.0) Basophils (%) (Auto) % (0.0-2.0) Differential Total Cells Counted 100 Neutrophils % (Manual) 77 % (45-75) H Lymphocytes % (Manual) 11 % (20-45) L Monocytes % (Manual) 8 % (1-10) Eosinophils % (Manual) 4 % (0-3) H Basophils % (Manual) 0 % (0-2) Band Neutrophils 0 % (0-8) Platelet Estimate Decreased L Platelet Morphology Normal Red Blood Cell Morphology Normal Erythrocyte Sedimentation Rate 8 MM/HR (0-20) Sodium Level 139 MMOL/L (136-145) Potassium Level 4.1 MMOL/L (3.5-5.1) Chloride Level 102 MMOL/L (98-107) Carbon Dioxide Level 35 MMOL/L (21-32) H Anion Gap 2 mmol/L (5-15) L Blood Urea Nitrogen 16 mg/dL (7-18) Creatinine 0.9 MG/DL (0.55-1.30) Estimat Glomerular Filtration Rate > 60 mL/min (>60) Glucose Level 110 MG/DL (74-106) H Calcium Level 8.6 MG/DL (8.5-10.1) Phosphorus Level 3.3 MG/DL (2.5-4.9) Magnesium Level 1.7 MG/DL (1.8-2.4) L Total Bilirubin 0.4 MG/DL (0.2-1.0) Aspartate Amino Transf (AST/SGOT) 25 U/L (15-37) Alanine Aminotransferase (ALT/SGPT) 21 U/L (12-78) Alkaline Phosphatase 36 U/L (46-116) L C-Reactive Protein, Quantitative 11.4 mg/dL (0.00-0.90) H Total Protein 5.3 G/DL (6.4-8.2) L Albumin 2.4 G/DL (3.4-5.0) L Globulin 2.9 g/dL Albumin/Globulin Ratio 0.8 (1.0-2.7) L Height (Feet): 5 Height (Inches): 9.00 Weight (Pounds): 165 Medications Current Medications Medications (Trade) Dose Ordered Sig/Chace Route PRN Reason Start Time Stop Time Status Last Admin Dose Admin Acetaminophen (Tylenol) 650 mg Q4H PRN ORAL fever 09/27/18 17:45 10/27/18 17:44 Al Hydroxide/Mg Hydroxide (Mylanta II) 30 ml Q6H PRN ORAL dyspepsia 09/27/18 17:45 10/27/18 17:44 Carvedilol (Coreg) 25 mg EVERY 12 HOURS ORAL 09/27/18 21:00 10/27/18 20:59 09/29/18 08:47 Clonidine HCl (Catapres Tab) 0.1 mg Q4H PRN ORAL sbp> 160 09/29/18 12:00 10/29/18 11:59 Dexamethasone (Decadron) 4 mg DAILY ORAL 09/28/18 09:00 10/28/18 08:59 09/29/18 08:47 Dextrose (Dextrose 50%) 25 ml Q30M PRN IV Hypoglycemia 09/27/18 17:45 10/27/18 17:44 Dextrose (Dextrose 50%) 50 ml Q30M PRN IV Hypoglycemia 09/27/18 17:45 10/27/18 17:44 Insulin Aspart (NovoLOG) BEFORE MEALS AND HS SUBQ 09/27/18 21:00 10/27/18 20:59 09/29/18 17:39 Lorazepam (Ativan 2mg/ml 1ml) 0.5 mg Q4H PRN IV For Anxiety 09/27/18 17:45 10/04/18 17:44 Methadone HCl (Methadone HCl) 5 mg Q6H PRN ORAL PAIN 4-10 09/29/18 12:00 10/06/18 11:59 09/29/18 13:33 Morphine Sulfate (Morphine Sulfate) 2 mg Q4H PRN IVP SEVERE BREAKTHROUGH PAIN 09/29/18 13:45 10/04/18 17:44 Ondansetron HCl (Zofran) 4 mg Q6H PRN IVP Nausea & Vomiting 09/27/18 17:45 10/27/18 17:44 Polyethylene Glycol (Miralax) 17 gm HSPRN PRN ORAL Constipation 09/27/18 17:45 10/27/18 17:44 Sitagliptin Phosphate (Januvia) 50 mg DAILY ORAL 09/28/18 09:00 10/28/18 08:59 09/29/18 08:47 Valproic Acid (Depakene) 500 mg EVERY 12 HOURS ORAL 09/30/18 09:00 10/30/18 08:59 Valproic Acid (Depakene) 1,000 mg DAILY@1400 ORAL 09/29/18 14:00 10/29/18 13:59 09/29/18 13:28 Zolpidem Tartrate (Ambien) 5 mg HSPRN PRN ORAL Insomnia 09/27/18 17:45 10/04/18 17:44 Assessment/Plan Problem List: (1) Sacral decubitus ulcer Assessment & Plan: Pt presented on admission with DTPI with small opening over coccyx. Base of wound fluctuant,purple with maroon borders. (L)9cm x (W)6.5cm. Non-blanchable erythema without induration periwound. Bilat elbows and bilat heels are pink and blanchable.No other skin concerns noted. Tx.Plan: Cleanse sacral wound with Saline.Apply Triad Paste. Cover with Optifoam drsg. Change every 3 days and prn. Apply Cavilon Skin Barrier to both heels. Cover each heel with Optifoam drsg. Change every 7 days and prn. APM/ADRIAN Mattress overlay. Reposition at least every 2 hours or as tolerated. Off-load heels with pillow. ICD Codes: L89.159 - Pressure ulcer of sacral region, unspecified stage SNOMED: 017984398 (2) Deep tissue injury Assessment & Plan: Nutritional consult ICD Codes: T14.8XXA - Other injury of unspecified body region, initial encounter SNOMED: 902360281 (3) Altered mental status ICD Codes: R41.82 - Altered mental status, unspecified SNOMED: 280165855 (4) Acute encephalopathy ICD Codes: G93.40 - Encephalopathy, unspecified SNOMED: 40191597, 741847273 (5) Seizure disorder ICD Codes: G40.909 - Epilepsy, unspecified, not intractable, without status epilepticus SNOMED: 515926531 (6) Brain tumor ICD Codes: D49.6 - Neoplasm of unspecified behavior of brain SNOMED: 301245183 (7) Diabetes mellitus ICD Codes: E11.9 - Type 2 diabetes mellitus without complications SNOMED: 27574041 (8) Hypertension ICD Codes: I10 - Essential (primary) hypertension SNOMED: 60655953 Harry Rivas Sep 29, 2018 18:50
--- NOTE | 2018-09-29 19:14 | NUR ---
NURSE NOTES: As evening entered pt slightly confused no longer wanted to speak Maltese , began speaking Japanese
--- NOTE | 2018-09-29 19:30 | NUR ---
NURSE NOTES: Received report from CHIDI Gonzalez. Patient alert, oriented only to self. Reoriented to time, place and situation. Bed in low position, locked, side rails up x3, padded. Call light within reach. Communicating well with nurse, in Turkmen. Denies any pain at this time. Encouraged to call as needed.
[2018-09-29 20:00] VITALS: BP 146/90
--- NOTE | 2018-09-29 20:23 | NUR ---
HAND-OFF: Report given to Randall MURILLO.
[2018-09-29] MEDS ORDERED: Valproic Acid 250mg/5ml Liquid NG SCH ×2 (21:00)
[2018-09-30] VITALS: BP 133/93
--- NOTE | 2018-09-30 | History and Physical Report ---
DATE OF ADMISSION: 09/27/2018 CHIEF COMPLAINT: The patient is a 68-year-old male with history of brain tumor, who presents with a chief complaint of altered mental status. HISTORY OF PRESENT ILLNESS: The patient is a resident of [facility]. According to staff at [facility], the patient began to have altered mental status. The patient was transferred to [facility]. The patient was admitted for altered mental status to rule out acute cerebrovascular accident versus urinary tract infection. REVIEW OF SYSTEMS: Unable to assess secondary to the patient's mental status. 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 2. Seizure disorder. 3. Diabetes type 2. 4. History of cerebrovascular accident. 5. Right hemiparesis. 6. Hypertension. 7. Coronary artery disease. 8. Expressive aphasia. PAST SURGICAL HISTORY: Significant for craniotomy secondary to brain tumor as above. CURRENT MEDICATIONS: 1. Apixaban 5 mg p.o. daily. 2. Atorvastatin 80 mg p.o. at bedtime. 3. Carvedilol 25 mg p.o. twice daily. 4. Vitamin D 50,000 units p.o. every week. 5. Dexamethasone 4 mg p.o. daily. 6. Depakote 500 mg p.o. twice daily. 7. Depakote 1500 mg p.o. daily. 8. Lispro sliding scale. 9. Vimpat 200 mg p.o. twice daily. 10. Losartan 25 mg p.o. daily. 11. Metformin 1000 mg p.o. twice daily. 12. Zantac 150 mg p.o. daily. 13. Januvia 50 mg p.o. daily. 14. Temozolomide 5 mg p.o. daily. ALLERGIES: No known drug allergies. SOCIAL HISTORY: The patient is and lives at [facility] as above. The patient denies tobacco or alcohol use. PHYSICAL EXAMINATION: VITAL SIGNS: Temperature 97.5, respirations 16, pulse 82, and blood pressure 118/70. GENERAL: The patient is a well-developed and well-nourished male, in no apparent distress. HEENT: Eyes, pupils are equal and responsive to light and accommodation. Extraocular movements are intact. NECK: Supple without lymphadenopathy. CHEST: Lungs are clear to auscultation bilaterally without wheezes or rales. CARDIOVASCULAR: Regular rhythm and rate. S1 and S2 are normal without murmurs, rubs, or gallops. ABDOMEN: Soft, nontender, and nondistended. Positive bowel sounds. No evidence of hepatosplenomegaly. Currently, no rebound or guarding noted. EXTREMITIES: Negative for clubbing, cyanosis, or edema. RECTAL/GENITAL: Not performed. NEUROLOGICAL: The patient does have a right hemiparesis. Otherwise, cranial nerves II through XII are grossly intact without focal deficits. LABORATORY STUDIES: WBC 6.1, hemoglobin 13.5, hematocrit 38, and platelets 78,000. Sodium 134, potassium 4.4, chloride , CO2 27, BUN 18, creatinine 0.7, and glucose 151. A CT of the brain was reported as negative for acute intracranial bleed or mass effect. There was evidence of left focal temporal craniotomy noted. ASSESSMENT: This is a 68-year-old male. 1. Altered mental status. 2. Oligodendroglioma of the brain. 3. Seizure disorder. 4. Diabetes type 2. 5. Cerebrovascular accident. 6. Right hemiparesis. 7. Hypertension. 8. Coronary artery disease. 9. Expressive aphasia. TREATMENT: 1. Altered mental status. This may be secondary to urinary tract infection. Blood and urine cultures are pending. We will follow recommendations of Infectious Disease. 2. 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 The patient is status post craniotomy. 3. Seizure disorder. Continue Vimpat and Depakote as above. 4. Diabetes type 2. NovoLog sliding scale has been instituted. 5. Cerebrovascular disease. 6. Right hemiparesis. 7. Hypertension. Continue losartan as above. 8. Coronary artery disease. 9. Expressive aphasia. Jesus Kidd M.D. DR: ROXY JOB#: [id number] CC:
[2018-09-30 04:00] VITALS: BP 138/85
[2018-09-30] MEDS: NovoLOG Insulin Flexpen SUBQ SCH ×4 (06:30→21:33)
--- NOTE | 2018-09-30 07:30 | NUR ---
HAND-OFF: Report given to CHIDI Sotomayor. Notified day nurse and charge nurse that patient just now said that he wanted to , that he was "tired of feeling like this". Patient is alert, but oriented only to self. CHIDI Sotomayor will follow up.
--- NOTE | 2018-09-30 07:30 | NUR ---
NURSE NOTES: Patient is in bed awake and able to follow simple commands. Patient stable with no s/s acute distress. Denies pain or SOB at this time. Patient encouraged to use call light for assistance, nodded yes for understanding. Skin is clean and dry. Patient will be turned q2h. Patient is in good spirits with call light within reach. All safety measures provided, seizure precautions provided. Bed in locked and lowest position. Will continue to monitor.
[2018-09-30 08:00] VITALS: BP 118/71
--- NOTE | 2018-09-30 08:56 | NUR ---
ST NOTE: RECEIVED BEDSIDE SWALLOW EVAL ORDER CHART REVIEWED. ATTEMPTED TO SEE PT AT BEDSIDE THIS AM. HOWEVER, PT REFUSED TO PARTICIPATE IN THE EVAL AND HAVING A SUICIDAL THOUGHT, PT SAID,"LET ME ." RN, SIMRAN, MADE AWARE. REFER PT TO SOCIAL SERVICE HOLD OFF THE BEDSIDE SWALLOW EVAL AT THIS TIME.
[2018-09-30] MEDS ORDERED: Valproic Acid 250mg/5ml Liquid ORAL SCH (09:00)
[2018-09-30] MEDS: sitaGLIPtin 50mg tab ORAL SCH (09:04)
[2018-09-30] MEDS: Carvedilol 25mg Tab ORAL SCH ×2 (09:04→21:29)
--- NOTE | 2018-09-30 10:12 | Consultation ---
History of Present Illness General Date patient seen: Sep 30, 2018 Chief Complaint: Altered Mental Status Reason for Consultation: Positive blood Cx Present Illness HPI Mr. Crystal is a 68 yo male with PMHx of Brain CA, Seizures, DM, CVA with deficits and CAD who was sent to the ED for AMS on 09/27/18 from his [facility] home. The patient is still unable to give a history at this time. Per reprots he developed AMS with increased confusion. (baseline is able to follow commands and speak a little.) He was sent to the ED to r/o stroke. In the ED CT head did not show sigh of a stroke. His UA was negative and he had no fever or leukocytosis. Currently he is still confused but reports no N/V/D Abd pain, Fevers, chills or Dysuria. 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 HTN CAD SocHx Lives at a fdc FamHx Unable to obtain due to AMS Allergies: Coded Allergies: No Known Allergies (Unverified , 09/27/18) Medication History Scheduled Atorvastatin (Lipitor), 80 MG ORAL BEDTIME, (Reported) Carvedilol* (Carvedilol*), 25 MG ORAL EVERY 12 HOURS, (Reported) Cholecalciferol (Vitamin D3)* (Vitamin D*), 50,000 UNITS ORAL QWEEK, (Reported) Docusate Sodium (Docusate Sodium), 100 MG ORAL DAILY, (Reported) Lacosamide (Vimpat), 200 MG PO BID, (Reported) Losartan Potassium (Losartan Potassium), 25 MG ORAL DAILY, (Reported) Metformin Hcl (Glucophage), 1,000 MG ORAL DAILY, (Reported) Polyethylene Glycol 3350* (Miralax*), 17 GM ORAL DAILY, (Reported) Ranitidine Hcl* (Zantac*), 150 MG ORAL DAILY, (Reported) Sitagliptin* (Januvia*), 50 MG ORAL DAILY, (Reported) Miscellaneous Medications Apixaban (Eliquis), 5 MG PO, (Reported) Dexamethasone* (Decadron*), 4 MG PO, (Reported) Divalproex Sodium (Depakote), 500 MG PO, (Reported) Divalproex Sodium (Divalproex Sodium), 1,500 MG PO, (Reported) Divalproex Sodium (Depakote), 1,500 MG PO, (Reported) Insulin Lispro (Humalog), 0 SUBQ, (Reported) Temozolomide (Temozolomide), 5 MG PO, (Reported) Patient History Healthcare decision maker N Resuscitation status Full Code Advanced Directive on File No Review of Systems ROS Narrative Unable to obtain fully obtain due to AMS Physical Exam Last 24 Hour Vital Signs Date Time Temp Pulse Resp B/P (MAP) Pulse Ox O2 Delivery O2 Flow Rate FiO2 09/30/18 09:04 74 118/71 09/30/18 04:00 97.4 79 18 138/85 (102) 96 09/30/18 00:00 97.2 74 18 133/93 (106) 97 09/29/18 21:00 Room Air 09/29/18 21:00 82 146/91 09/29/18 20:00 97.6 82 18 146/90 (108) 96 09/29/18 16:00 98.0 79 18 108/70 (83) 98 09/29/18 12:00 98.3 75 18 128/82 (97) 98 Intake and Output 09/29/18 09/30/18 19:00 07:00 Intake Total 200 ml Output Total 700 ml 650 ml Balance -500 ml -650 ml Intake Oral 200 ml Output Urine Total 700 ml 650 ml Height (Feet): 5 Height (Inches): 9.00 Weight (Pounds): 164 Medications Current Medications Medications (Trade) Dose Ordered Sig/Chace Route PRN Reason Start Time Stop Time Status Last Admin Dose Admin Acetaminophen (Tylenol) 650 mg Q4H PRN ORAL fever 09/27/18 17:45 10/27/18 17:44 Al Hydroxide/Mg Hydroxide (Mylanta II) 30 ml Q6H PRN ORAL dyspepsia 09/27/18 17:45 10/27/18 17:44 Carvedilol (Coreg) 25 mg EVERY 12 HOURS ORAL 09/27/18 21:00 10/27/18 20:59 09/30/18 09:04 Clonidine HCl (Catapres Tab) 0.1 mg Q4H PRN ORAL sbp> 160 09/29/18 12:00 10/29/18 11:59 Dexamethasone (Decadron) 4 mg DAILY ORAL 09/28/18 09:00 10/28/18 08:59 09/30/18 09:04 Dextrose (Dextrose 50%) 25 ml Q30M PRN IV Hypoglycemia 09/27/18 17:45 10/27/18 17:44 Dextrose (Dextrose 50%) 50 ml Q30M PRN IV Hypoglycemia 09/27/18 17:45 10/27/18 17:44 Insulin Aspart (NovoLOG) BEFORE MEALS AND HS SUBQ 09/27/18 21:00 10/27/18 20:59 09/29/18 22:05 Lorazepam (Ativan 2mg/ml 1ml) 0.5 mg Q4H PRN IV For Anxiety 09/27/18 17:45 10/04/18 17:44 Methadone HCl (Methadone HCl) 5 mg Q6H PRN ORAL PAIN -09/29/18 12:00 10/06/18 11:59 09/29/18 13:33 Morphine Sulfate (Morphine Sulfate) 2 mg Q4H PRN IVP SEVERE BREAKTHROUGH PAIN 09/29/18 13:45 10/04/18 17:44 Ondansetron HCl (Zofran) 4 mg Q6H PRN IVP Nausea & Vomiting 09/27/18 17:45 10/27/18 17:44 Polyethylene Glycol (Miralax) 17 gm HSPRN PRN ORAL Constipation 09/27/18 17:45 10/27/18 17:44 Sitagliptin Phosphate (Januvia) 50 mg DAILY ORAL 09/28/18 09:00 10/28/18 08:59 09/30/18 09:04 Valproic Acid (Depakene) 500 mg EVERY 12 HOURS ORAL 09/30/18 09:00 10/30/18 08:59 09/30/18 09:04 Valproic Acid (Depakene) 1,000 mg DAILY@1400 ORAL 09/29/18 14:00 10/29/18 13:59 09/29/18 13:28 Zolpidem Tartrate (Ambien) 5 mg HSPRN PRN ORAL Insomnia 09/27/18 17:45 10/04/18 17:44 Objective Narrative Gen: NAD HEENT: NCAT, MMM, EOMI, PERRL, No Oral lesion, no scleral icterus NECK: full range of motion, supple, no meningismus, No LAD, No JVD LUNGS: CTAB, No W/C, No Accessory muscle use CARDS: RRR, S1, S2, No M/R/G, ABD: Soft, NT, ND, No R/G, + BS, No HSM, No Masses : Deferred Ext: C/C/E, Pulses 2+ B/L (DP, Rad): NEURO: Confused A/o x1 Name PSYCH: Mood/affect normal SKIN: Warm/dry, No rashes, Sacral ulcer stage 1 mild erythema Assessment/Plan Assessment/Plan 68 yo male with PMHx of Brain CA, Seizures, DM, CVA with deficits and CAD who was sent to the ED for AMS on 09/27/18 from his [facility]. 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 We will continue to follow the patient during this hospitalization. Ramon Blanca MD Sep 30, 2018 10:12
--- NOTE | 2018-09-30 11:38 | Consultation ---
History of Present Illness General Chief Complaint: Altered Mental Status Reason for Consultation: Positive blood Cx Present Illness HPI 68-year-old male who was brought to [facility] for evaluation of altered level of consciousness and lethargy, CVA and brain tumor. the pt is having memory impairment and waxing and waning of conciseness, The pt was lethargic and earlier he told the nurse that he wanted to . His VA was toxic. the pt was agitated earlier. Allergies: Coded Allergies: No Known Allergies (Unverified , 09/27/18) Medication History Scheduled Atorvastatin (Lipitor), 80 MG ORAL BEDTIME, (Reported) Carvedilol* (Carvedilol*), 25 MG ORAL EVERY 12 HOURS, (Reported) Cholecalciferol (Vitamin D3)* (Vitamin D*), 50,000 UNITS ORAL QWEEK, (Reported) Docusate Sodium (Docusate Sodium), 100 MG ORAL DAILY, (Reported) Lacosamide (Vimpat), 200 MG PO BID, (Reported) Losartan Potassium (Losartan Potassium), 25 MG ORAL DAILY, (Reported) Metformin Hcl (Glucophage), 1,000 MG ORAL DAILY, (Reported) Polyethylene Glycol 3350* (Miralax*), 17 GM ORAL DAILY, (Reported) Ranitidine Hcl* (Zantac*), 150 MG ORAL DAILY, (Reported) Sitagliptin* (Januvia*), 50 MG ORAL DAILY, (Reported) Miscellaneous Medications Apixaban (Eliquis), 5 MG PO, (Reported) Dexamethasone* (Decadron*), 4 MG PO, (Reported) Divalproex Sodium (Depakote), 500 MG PO, (Reported) Divalproex Sodium (Divalproex Sodium), 1,500 MG PO, (Reported) Divalproex Sodium (Depakote), 1,500 MG PO, (Reported) Insulin Lispro (Humalog), 0 SUBQ, (Reported) Temozolomide (Temozolomide), 5 MG PO, (Reported) Patient History Limited by: medical condition History Provided By: Medical Record, PMD Healthcare decision maker N Resuscitation status Full Code Advanced Directive on File No Past Medical/Surgical History Past Medical/Surgical History: (1) Acute encephalopathy (2) Sacral decubitus ulcer (3) Deep tissue injury (4) Valproic acid toxicity (5) acute toxic encephalopathy (6) Seizure disorder (7) Altered mental status (8) Brain tumor (9) Diabetes mellitus (10) Hypertension Review of Systems Psychiatric: Reports: prior hx, anxiety, depressed feelings, emotional problems , hallucinations Physical Exam General Appearance: lethargic, agitated Last 24 Hour Vital Signs Date Time Temp Pulse Resp B/P (MAP) Pulse Ox O2 Delivery O2 Flow Rate FiO2 09/30/18 09:04 74 118/71 09/30/18 08:00 98.1 74 19 118/71 (87) 98 09/30/18 04:00 97.4 79 18 138/85 (102) 96 09/30/18 00:00 97.2 74 18 133/93 (106) 97 09/29/18 21:00 Room Air 09/29/18 21:00 82 146/91 09/29/18 20:00 97.6 82 18 146/90 (108) 96 09/29/18 16:00 98.0 79 18 108/70 (83) 98 09/29/18 12:00 98.3 75 18 128/82 (97) 98 Intake and Output 09/29/18 09/30/18 19:00 07:00 Intake Total 200 ml Output Total 700 ml 650 ml Balance -500 ml -650 ml Intake Oral 200 ml Output Urine Total 700 ml 650 ml Height (Feet): 5 Height (Inches): 9.00 Weight (Pounds): 164 Medications Current Medications Medications (Trade) Dose Ordered Sig/Chace Route PRN Reason Start Time Stop Time Status Last Admin Dose Admin Acetaminophen (Tylenol) 650 mg Q4H PRN ORAL fever 09/27/18 17:45 10/27/18 17:44 Al Hydroxide/Mg Hydroxide (Mylanta II) 30 ml Q6H PRN ORAL dyspepsia 09/27/18 17:45 10/27/18 17:44 Carvedilol (Coreg) 25 mg EVERY 12 HOURS ORAL 09/27/18 21:00 10/27/18 20:59 09/30/18 09:04 Clonidine HCl (Catapres Tab) 0.1 mg Q4H PRN ORAL sbp> 160 09/29/18 12:00 10/29/18 11:59 Dexamethasone (Decadron) 4 mg DAILY ORAL 09/28/18 09:00 10/28/18 08:59 09/30/18 09:04 Dextrose (Dextrose 50%) 25 ml Q30M PRN IV Hypoglycemia 09/27/18 17:45 10/27/18 17:44 Dextrose (Dextrose 50%) 50 ml Q30M PRN IV Hypoglycemia 09/27/18 17:45 10/27/18 17:44 Insulin Aspart (NovoLOG) BEFORE MEALS AND HS SUBQ 09/27/18 21:00 10/27/18 20:59 09/29/18 22:05 Lorazepam (Ativan 2mg/ml 1ml) 0.5 mg Q4H PRN IV For Anxiety 09/27/18 17:45 10/04/18 17:44 Methadone HCl (Methadone HCl) 5 mg Q6H PRN ORAL PAIN 09-3009/29/18 12:00 10/06/18 11:59 09/29/18 13:33 Morphine Sulfate (Morphine Sulfate) 2 mg Q4H PRN IVP SEVERE BREAKTHROUGH PAIN 09/29/18 13:45 10/04/18 17:44 Ondansetron HCl (Zofran) 4 mg Q6H PRN IVP Nausea & Vomiting 09/27/18 17:45 10/27/18 17:44 Polyethylene Glycol (Miralax) 17 gm HSPRN PRN ORAL Constipation 09/27/18 17:45 10/27/18 17:44 Sitagliptin Phosphate (Januvia) 50 mg DAILY ORAL 09/28/18 09:00 10/28/18 08:59 09/30/18 09:04 Valproic Acid (Depakene) 500 mg EVERY 12 HOURS ORAL 09/30/18 09:00 10/30/18 08:59 09/30/18 09:04 Valproic Acid (Depakene) 1,000 mg DAILY@1400 ORAL 09/29/18 14:00 10/29/18 13:59 09/29/18 13:28 Zolpidem Tartrate (Ambien) 5 mg HSPRN PRN ORAL Insomnia 09/27/18 17:45 10/04/18 17:44 Assessment/Plan Problem List: (1) acute toxic encephalopathy (2) Valproic acid toxicity ICD Codes: T42.6X1A - Poisoning by other antiepileptic and sedative-hypnotic drugs, accidental (unintentional), initial encounter SNOMED: [id number] Status: unchanged Assessment/Plan dc Depakote Lexapro seroquekash lamictal repeat VA level tomorrow Kenn Loza MD Sep 30, 2018 11:38
[2018-09-30] MEDS ORDERED: Haloperidol 5mg/ml Inj IM PRN (11:45)
[2018-09-30 12:00] VITALS: BP 90/58
--- NOTE | 2018-09-30 12:40 | NUR ---
RD ASSESSMENT & RECOMMENDATIONS SEE CARE ACTIVITY FOR COMPLETE ASSESSMENT DAILY ESTIMATED NEEDS: Needs based on Wound, cardiac, DM/ 64.5kg 25-30 kcals/kg 0982-5244 total kcals 1.25-1.5 g protein/kg 80-96 g total protein 25-30 mL/kg 9797-9566 total fluid mLs NUTRITION DIAGNOSIS: * Increased kcal/prot needs R/T wound healing as evidenced by DTPI with small opening @ coccyx. * Altered nutrition related lab values R/T h/o DM, clinical condition as evidenced by elev POC glu (109-198), low mag (1.7), elev NH3 (41). CURRENT DIET:CCHO MED, regular PO DIET RECOMMENDATIONS: CCHO MED, LOW NA/ texture per DIE STAMPING PRESS OPERATOR + Glucerna 1 jackie BID in b/w meals ADDITIONAL RECOMMENDATIONS: * Calibrated bedscale wt for accurate CBW * Wound healing: add MVI x 1, Vit C 500mg QD, Ziyad 1pkt BID * Monitor lytes, replete as needed (low mag) * Monitor BGs closely- h/o DM, on Decadron * A1C for eval of glycemic control
--- NOTE | 2018-09-30 12:56 | Surgery Progress Note ---
Surgery Progress Note Subjective Additional Comments patient seen and examined. more cooperative today. able to assist and turn himself for wound care dressing change today. c/o pain at sacral area on palpation Objective Last 24 Hour Vital Signs Date Time Temp Pulse Resp B/P (MAP) Pulse Ox O2 Delivery O2 Flow Rate FiO2 09/30/18 09:04 74 118/71 09/30/18 09:00 Room Air 09/30/18 08:00 98.1 74 19 118/71 (87) 98 09/30/18 04:00 97.4 79 18 138/85 (102) 96 09/30/18 00:00 97.2 74 18 133/93 (106) 97 09/29/18 21:00 Room Air 09/29/18 21:00 82 146/91 09/29/18 20:00 97.6 82 18 146/90 (108) 96 09/29/18 16:00 98.0 79 18 108/70 (83) 98 I&O Intake and Output 09/29/18 09/30/18 19:00 07:00 Intake Total 200 ml Output Total 700 ml 650 ml Balance -500 ml -650 ml Intake Oral 200 ml Output Urine Total 700 ml 650 ml Dressing: dry Wound: clean Cardiovascular: RSR Respiratory: clear Abdomen: soft, flat, non-tender, non-distended Extremities: no tenderness, no cyanosis Plan Problems: (1) Sacral decubitus ulcer Assessment & Plan: Pt presented on admission with DTPI with small opening over coccyx. Base of wound fluctuant,purple with maroon borders. (L)9cm x (W)6.5cm. Non-blanchable erythema without induration periwound. Bilat elbows and bilat heels are pink and blanchable.No other skin concerns noted. Tx.Plan: Cleanse sacral wound with Saline.Apply Triad Paste. Cover with Optifoam drsg. Change every 3 days and prn. Apply Cavilon Skin Barrier to both heels. Cover each heel with Optifoam drsg. Change every 7 days and prn. APM/ADRIAN Mattress overlay. Reposition at least every 2 hours or as tolerated. Off-load heels with pillow. (2) Deep tissue injury Assessment & Plan: DAILY ESTIMATED NEEDS: Needs based on Wound, cardiac, DM/ 64.5kg 25-30 kcals/kg 0690-3355 total kcals 1.25-1.5 g protein/kg 80-96 g total protein 25-30 mL/kg 6827-5636 total fluid mLs NUTRITION DIAGNOSIS: * Increased kcal/prot needs R/T wound healing as evidenced by DTPI with small opening @ coccyx. * Altered nutrition related lab values R/T h/o DM, clinical condition as evidenced by elev POC glu (109-198), low mag (1.7), elev NH3 (41). CURRENT DIET:CCHO MED, regular PO DIET RECOMMENDATIONS: CCHO MED, LOW NA/ texture per BUSINESS DEVELOPMENT PROFESSIONAL + Glucerna 1 jackie BID in b/w meals ADDITIONAL RECOMMENDATIONS: * Calibrated bedscale wt for accurate CBW * Wound healing: add MVI x 1, Vit C 500mg QD, Ziyad 1pkt BID * Monitor lytes, replete as needed (low mag) * Monitor BGs closely- h/o DM, on Decadron * A1C for eval of glycemic control (3) Altered mental status (4) Acute encephalopathy (5) Seizure disorder (6) Brain tumor (7) Diabetes mellitus (8) Hypertension Harry Rivas Sep 30, 2018 12:56
--- NOTE | 2018-09-30 13:40 | Pulmonology Progress Note ---
Assessment/Plan Problems: (1) Acute encephalopathy (2) Seizure disorder (3) Brain tumor (4) Hypertension (5) Diabetes mellitus Assessment/Plan more awake decrease Depakote increase morphin sliding scale seizure precaution social service consult. Subjective ROS Limited/Unobtainable: No Constitutional: Reports: no symptoms HEENT: Repors: no symptoms Allergies: Coded Allergies: No Known Allergies (Unverified , 09/27/18) Objective Last 24 Hour Vital Signs Date Time Temp Pulse Resp B/P (MAP) Pulse Ox O2 Delivery O2 Flow Rate FiO2 09/30/18 12:00 98.7 78 19 90/58 (69) 97 09/30/18 09:04 74 118/71 09/30/18 09:00 Room Air 09/30/18 08:00 98.1 74 19 118/71 (87) 98 09/30/18 04:00 97.4 79 18 138/85 (102) 96 09/30/18 00:00 97.2 74 18 133/93 (106) 97 09/29/18 21:00 Room Air 09/29/18 21:00 82 146/91 09/29/18 20:00 97.6 82 18 146/90 (108) 96 09/29/18 16:00 98.0 79 18 108/70 (83) 98 Intake and Output 09/29/18 09/30/18 19:00 07:00 Intake Total 200 ml Output Total 700 ml 650 ml Balance -500 ml -650 ml Intake Oral 200 ml Output Urine Total 700 ml 650 ml General Appearance: WD/WN HEENT: normocephalic, atraumatic Respiratory/Chest: chest wall non-tender, normal breath sounds Cardiovascular: normal peripheral pulses, normal rate Abdomen: normal bowel sounds, no organomegaly Extremities: no cyanosis Skin: no lesions Microbiology Date/Time Source Procedure Growth Status 09/27/18 14:10 Blood Blood Culture - Preliminary NO GROWTH AFTER 48 HOURS Resulted 09/27/18 13:55 Blood Blood Culture - Preliminary Staphylococcus Sp Coag Neg Resulted 09/27/18 16:30 Nasal Nares Left MRSA Culture - Final NO METHICILLIN RESISTANT STAPH AUREUS... Complete 09/27/18 16:30 Rectum VRE Culture - Final NO VANCOMYCIN RESISTANT ENTEROCOCCUS ... Complete 09/27/18 16:30 Rectum - Final NO CARBAPENEM-RESISTANT ENTEROBACTERI... Complete Current Medications Medications (Trade) Dose Ordered Sig/Chace Route PRN Reason Start Time Stop Time Status Last Admin Dose Admin Acetaminophen (Tylenol) 650 mg Q4H PRN ORAL fever 09/27/18 17:45 10/27/18 17:44 Al Hydroxide/Mg Hydroxide (Mylanta II) 30 ml Q6H PRN ORAL dyspepsia 09/27/18 17:45 10/27/18 17:44 Ascorbic Acid (Vitamin C) 500 mg TWICE A DAY ORAL 09/30/18 18:00 10/30/18 17:59 Carvedilol (Coreg) 25 mg EVERY 12 HOURS ORAL 09/27/18 21:00 10/27/18 20:59 09/30/18 09:04 Clonidine HCl (Catapres Tab) 0.1 mg Q4H PRN ORAL sbp> 160 09/29/18 12:00 10/29/18 11:59 Dexamethasone (Decadron) 4 mg DAILY ORAL 09/28/18 09:00 10/28/18 08:59 09/30/18 09:04 Dextrose (Dextrose 50%) 25 ml Q30M PRN IV Hypoglycemia 09/27/18 17:45 10/27/18 17:44 Dextrose (Dextrose 50%) 50 ml Q30M PRN IV Hypoglycemia 09/27/18 17:45 10/27/18 17:44 Haloperidol Lactate (Haldol) 5 mg Q6H PRN IM Agitation 09/30/18 11:45 10/30/18 11:44 Insulin Aspart (NovoLOG) BEFORE MEALS AND HS SUBQ 09/27/18 21:00 10/27/18 20:59 09/30/18 11:56 Lorazepam (Ativan 2mg/ml 1ml) 0.5 mg Q4H PRN IV For Anxiety 09/27/18 17:45 10/04/18 17:44 Methadone HCl (Methadone HCl) 5 mg Q6H PRN ORAL PAIN 4-10 09/29/18 12:00 10/06/18 11:59 09/29/18 13:33 Morphine Sulfate (Morphine Sulfate) 2 mg Q4H PRN IVP SEVERE BREAKTHROUGH PAIN 09/29/18 13:45 10/04/18 17:44 Multivitamins (Multivitamins) 1 tab DAILY ORAL 10/01/18 09:00 10/31/18 08:59 Ondansetron HCl (Zofran) 4 mg Q6H PRN IVP Nausea & Vomiting 09/27/18 17:45 10/27/18 17:44 Polyethylene Glycol (Miralax) 17 gm HSPRN PRN ORAL Constipation 09/27/18 17:45 10/27/18 17:44 Sitagliptin Phosphate (Januvia) 50 mg DAILY ORAL 09/28/18 09:00 10/28/18 08:59 09/30/18 09:04 Zolpidem Tartrate (Ambien) 5 mg HSPRN PRN ORAL Insomnia 09/27/18 17:45 10/04/18 17:44 Raul Feng MD Sep 30, 2018 13:40
[2018-09-30 16:00] VITALS: BP 109/76
--- NOTE | 2018-09-30 16:32 | NUR ---
Social Service Note ELLE met with patient with CM coordinator for estonian translation. Patient is able to communicate in basic telugu but is more comfortable speaking in estonian. Patient expressed feelings of hopelessness and desperately wants to and be out of suffering. Patient denies suicidal ideations however wishes to . Patient states he has felt this way for 4 years. Patient was tearful. Patient states his family doesn't visit him and that he is alone. Patient asked SW to contact his family. SW provided patient emotional support. Patient is requesting DNR/DNI SW spoke with patient's son Pollo Crystal [phone]. Son confirms patient has expressed multiple times his desire to be DNR/DNI and the desire to . Patient has stopped treatment for his brain tumor. Son states different family members visit him throughout the week. Today his brother and niece visited. Son states family is unable to care for him at home and patient has expressed loneliness living in a facility. POLST provided to primary nurse to review with patient. Psych reviewing medications. Will monitor and assist as needed.
--- NOTE | 2018-09-30 17:45 | NUR ---
NURSE NOTES: Patient is in bed awake and stable. patient pulled carroll catheter out, blood draining into bag. Patient denies pain at this time. Applied pressure to area, patient is still bleeding. Called Dr. Braun to report incident. Awaiting response.
--- NOTE | 2018-09-30 18:00 | NUR ---
NURSE NOTES: Dr. Braun gave new orders to call Dr. Rousseau for urology consult. Paged Dr. Rousseau for orders, awaiting orders. Pt. is stable.
[2018-09-30] MEDS: Ascorbic Acid 500mg tab ORAL SCH (18:27)
--- NOTE | 2018-09-30 18:42 | Internal Med Progress Note ---
Subjective Date of Service: Sep 30, 2018 Physician Name Jesus Kidd Attending Physician Camacho Braun MD Current Medications Medications (Trade) Dose Ordered Sig/Chace Route PRN Reason Start Time Stop Time Status Last Admin Dose Admin Acetaminophen (Tylenol) 650 mg Q4H PRN ORAL fever 09/27/18 17:45 10/27/18 17:44 Al Hydroxide/Mg Hydroxide (Mylanta II) 30 ml Q6H PRN ORAL dyspepsia 09/27/18 17:45 10/27/18 17:44 Ascorbic Acid (Vitamin C) 500 mg TWICE A DAY ORAL 09/30/18 18:00 10/30/18 17:59 09/30/18 18:27 Carvedilol (Coreg) 25 mg EVERY 12 HOURS ORAL 09/27/18 21:00 10/27/18 20:59 09/30/18 09:04 Clonidine HCl (Catapres Tab) 0.1 mg Q4H PRN ORAL sbp> 160 09/29/18 12:00 10/29/18 11:59 Dexamethasone (Decadron) 4 mg DAILY ORAL 09/28/18 09:00 10/28/18 08:59 09/30/18 09:04 Dextrose (Dextrose 50%) 25 ml Q30M PRN IV Hypoglycemia 09/27/18 17:45 10/27/18 17:44 Dextrose (Dextrose 50%) 50 ml Q30M PRN IV Hypoglycemia 09/27/18 17:45 10/27/18 17:44 Haloperidol Lactate (Haldol) 5 mg Q6H PRN IM Agitation 09/30/18 11:45 10/30/18 11:44 Insulin Aspart (NovoLOG) BEFORE MEALS AND HS SUBQ 09/27/18 21:00 10/27/18 20:59 09/30/18 17:00 Lorazepam (Ativan 2mg/ml 1ml) 0.5 mg Q4H PRN IV For Anxiety 09/27/18 17:45 10/04/18 17:44 Methadone HCl (Methadone HCl) 5 mg Q6H PRN ORAL PAIN -09/29/18 12:00 10/06/18 11:59 09/29/18 13:33 Morphine Sulfate (Morphine Sulfate) 2 mg Q4H PRN IVP SEVERE BREAKTHROUGH PAIN 09/29/18 13:45 10/04/18 17:44 Multivitamins (Multivitamins) 1 tab DAILY ORAL 10/01/18 09:00 10/31/18 08:59 Ondansetron HCl (Zofran) 4 mg Q6H PRN IVP Nausea & Vomiting 09/27/18 17:45 10/27/18 17:44 Polyethylene Glycol (Miralax) 17 gm HSPRN PRN ORAL Constipation 09/27/18 17:45 10/27/18 17:44 Sitagliptin Phosphate (Januvia) 50 mg DAILY ORAL 09/28/18 09:00 10/28/18 08:59 09/30/18 09:04 Zolpidem Tartrate (Ambien) 5 mg HSPRN PRN ORAL Insomnia 09/27/18 17:45 10/04/18 17:44 Allergies: Coded Allergies: No Known Allergies (Unverified , 09/27/18) ROS Limited/Unobtainable: Yes Subjective 68 YO M with brain cancer admitted with altered mental status. Cover for Int Med-Dr Braun Objective Last Vital Signs Date Time Temp Pulse Resp B/P (MAP) Pulse Ox O2 Delivery O2 Flow Rate FiO2 09/30/18 16:00 98.0 69 19 109/76 (87) 98 09/30/18 09:00 Room Air Intake and Output 09/29/18 09/30/18 19:00 07:00 Intake Total 200 ml Output Total 700 ml 650 ml Balance -500 ml -650 ml Intake Oral 200 ml Output Urine Total 700 ml 650 ml Objective PHYSICAL EXAMINATION: GENERAL: The patient is a well-developed and well-nourished male, in no apparent distress. HEENT: Eyes, pupils are equal and responsive to light and accommodation. Extraocular movements are intact. NECK: Supple without lymphadenopathy. CHEST: Lungs are clear to auscultation bilaterally without wheezes or rales. CARDIOVASCULAR: Regular rhythm and rate. S1 and S2 are normal without murmurs, rubs, or gallops. ABDOMEN: Soft, nontender, and nondistended. Positive bowel sounds. No evidence of hepatosplenomegaly. Currently, no rebound or guarding noted. EXTREMITIES: Negative for clubbing, cyanosis, or edema. RECTAL/GENITAL: Not performed. NEUROLOGICAL: The patient does have a right hemiparesis. Otherwise, cranial nerves II through XII are grossly intact without focal deficits. Assessment/Plan Assessment/Plan ASSESSMENT: This is a 68-year-old male. 1. Altered mental status. 2. Oligodendroglioma of the brain. 3. Seizure disorder. 4. Diabetes type 2. 5. Cerebrovascular accident. 6. Right hemiparesis. 7. Hypertension. 8. Coronary artery disease. 9. Expressive aphasia. TREATMENT: 1. Altered mental status. This may be secondary to urinary tract infection. Blood and urine cultures are pending. We will follow recommendations of Infectious Disease. Blood Culture=Coag Neg Staph 2. 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 The patient is status post craniotomy. 3. Seizure disorder. Continue Vimpat and Depakote as above. 4. Diabetes type 2. NovoLog sliding scale has been instituted. 5. Cerebrovascular disease. 6. Right hemiparesis. 7. Hypertension. Continue losartan as above. 8. Coronary artery disease. 9. Expressive aphasia. Jesus Kidd MD Sep 30, 2018 18:42
--- NOTE | 2018-09-30 19:00 | NUR ---
NURSE NOTES: Dr. Rousseau reinserted carroll catheter. Patient is stable. Gave new orders to irrigate carroll catheter with NS as needed. Patient is in restraints as ordered. Will continue to monitor.
--- NOTE | 2018-09-30 19:30 | NUR ---
HAND-OFF: Report given to Neela LI. Pt stable.
[2018-09-30 20:00] VITALS: BP 133/88
--- NOTE | 2018-09-30 20:00 | NUR ---
NURSE NOTES: patient received from nila Sotomayor RN, patient pulled out carroll catheter. Dr. Rousseau, at bedside, inserted a new carroll catheter and ordered for bilateral soft wrist restraints to be applied, as well as a sitter to prevent pulling out carroll catheter. Will implement restraint protocol. Addendum: 10/01/18 at 0242 by JACK HALLMAN LVN Sitter 1:1 Tasia Mejias CNA At patient bedside at all times.
[2018-09-30] MEDS ORDERED: Tamsulosin 0.4mg cap ORAL SCH (21:00)
[2018-10-01] VITALS: BP 129/77
[2018-10-01 04:00] VITALS: BP 100/58
--- NOTE | 2018-10-01 05:30 | Consultation ---
DATE OF CONSULTATION: 09/30/2018 CONSULTING PHYSICIAN: Isael Rousseau M.D. REFERRING PHYSICIAN: Camacho Braun M.D. REASON FOR CONSULTATION: Evaluation of urinary retention, Mota trauma, hematuria. HISTORY OF PRESENT ILLNESS: This is a 68-year-old male. He has a history of brain tumor. He was admitted to the hospital because of altered mental status and confusion. Apparently, he had urinary retention and had a Mota catheter indwelling. The patient became confused and pulled the Mota out. Gross hematuria was noted. Nursing staff were not able to re-insert the Mota. Urology evaluation is requested. Most of the history was obtained from the chart. PAST MEDICAL HISTORY: Significant for above, oligodendroglioma, brain cancer, seizure disorder, diabetes, cerebrovascular accident, hypertension, hemiparesis on the right side, coronary artery disease, aphasia, and BPH. PAST SURGICAL HISTORY: He has a previous craniotomy. Other surgeries are unknown. CURRENT MEDICATIONS: Here in the hospital the patient is on multivitamins, Lexapro, , Seroquel, vitamin C, Haldol, morphine, methadone, Catapres, Decadron, Januvia, Coreg, Tylenol, MiraLAX, Zofran, and Ambien. ALLERGIES: No known drug allergies. SOCIAL HISTORY: He is a resident of a SNF. FAMILY HISTORY: Unable to obtain. REVIEW OF SYSTEMS: Unable to obtain. PHYSICAL EXAMINATION: GENERAL: Elderly male, confused. VITAL SIGNS: Temperature is 98, blood pressure is 109/76, pulse is 69, respirations 19. HEENT: Normocephalic. NECK: Supple. ABDOMEN: Soft. GENITOURINARY: Old blood at the meatus. EXTREMITIES: No clubbing or cyanosis. LABORATORY DATA: BUN is 16 and creatinine 0.9, and potassium 4.1. His white blood cell count is 4.4, hemoglobin 13.6, platelets are 73,000. UA on admission shows 1+ protein, 0 to 2 RBC. DIAGNOSTIC IMAGING STUDIES: The patient had a head CT scan, which was negative for acute intracranial bleed. There was evidence of previous craniotomy ventriculomegaly. I do not see any recent renal imaging studies. IMPRESSION: 1. Hematuria secondary to Mota trauma. 2. Urinary retention history. 3. BPH history. 4. Probable neurogenic bladder. 5. Proteinuria. 6. Possible urethral stricture. PLAN AND DISCUSSION: Again as noted above, the patient was evaluated on an urgent basis. I did attempt to pass a new Mota catheter, which was met with some resistance. The urethra was gently dilated. I was eventually able to pass a 20-Welsh Coude catheter into the bladder and it appeared to be in good position. I was able to irrigate it. There was mild bleeding, which did clear a bit with hand irrigation. There was small clots that was evacuated. At this time, I would recommend to keep the Mota catheter indwelling and I did discuss with the nursing staff that the patient will need restraints as well as mittens and possibly a sitter as he is confused and we will need to take all precautions so that he does not pull the catheter out again. I will also add Flomax 0.4 mg nightly and finasteride 5 mg daily and he can have a voiding trial when he is more alert. At this time, we will also try to recommend avoiding any anticoagulants. We will consider renal imaging study and a cystoscopy in the future. The above was also discussed with the patient's sons. Thank you for this consultation. Isael Rousseau M.D. DR: REJI JOB#: [id number] CC:
[2018-10-01] MEDS: NovoLOG Insulin Flexpen SUBQ SCH ×3 (05:58→17:03)
[2018-10-01 06:00] VITALS: BP 120/78
[2018-10-01 06:35] LABS: HEMATOCRIT 37.3 % (42.0-52.0); MEAN CORPUSCULAR VOLUME 89 FL (80-99); PLATELET COUNT 71 K/UL (150-450); RED BLOOD COUNT 4.19 M/UL (4.70-6.10); RED CELL DISTRIBUTION WIDTH 12.8 % (11.6-14.8); WHITE BLOOD COUNT 5.9 K/UL (4.8-10.8)
[2018-10-01 06:54] LABS: ANION GAP 5 mmol/L (5-15); BLOOD UREA NITROGEN 11 mg/dL (7-18); CALCIUM 8.3 MG/DL (8.5-10.1); CARBON DIOXIDE 31 MMOL/L (21-32); CHLORIDE 98 MMOL/L (98-107); CREATININE 0.7 MG/DL (0.55-1.30); POTASSIUM 3.8 MMOL/L (3.5-5.1); SODIUM 134 MMOL/L (136-145)
--- NOTE | 2018-10-01 07:20 | NUR ---
NURSE NOTES:HAND-OFF: Report given to lelia Pineda
[2018-10-01 07:58] VITALS: BP 125/81
[2018-10-01] MEDS: Ascorbic Acid 500mg tab ORAL SCH (09:31)
[2018-10-01] MEDS: Carvedilol 25mg Tab ORAL SCH (09:31)
--- NOTE | 2018-10-01 09:53 | Urology Progress Note ---
Assessment/Plan Assessment/Plan 1. Hematuria secondary to Carroll trauma. 2. Urinary retention history. 3. BPH history. 4. Probable neurogenic bladder. 5. Proteinuria. 6. Possible urethral stricture. keep carroll for now hand irrigated and do PRN small clots flomax and proscar voiding trial later cysto later f/u on blood cx d/w nursing staff Subjective Allergies: Coded Allergies: No Known Allergies (Unverified , 09/27/18) Subjective all noted Objective Last 24 Hour Vital Signs Date Time Temp Pulse Resp B/P (MAP) Pulse Ox O2 Delivery O2 Flow Rate FiO2 10/01/18 09:31 98 125/81 10/01/18 07:58 98.2 98 18 125/81 (96) 98 10/01/18 06:00 98.3 93 20 120/78 (92) 97 10/01/18 00:00 98.4 95 20 129/77 (94) 98 09/30/18 23:14 Room Air 09/30/18 21:29 100 133/88 09/30/18 20:00 99.2 100 17 133/88 (103) 96 09/30/18 16:00 98.0 69 19 109/76 (87) 98 09/30/18 12:00 98.7 78 19 90/58 (69) 97 Intake and Output 09/30/18 10/01/18 19:00 07:00 Intake Total 500 ml 720 ml Output Total 440 ml Balance 500 ml 280 ml Intake Oral 500 ml 660 ml Other 60 ml Output Urine Total 440 ml Microbiology Date/Time Source Procedure Growth Status 09/27/18 14:10 Blood Blood Culture - Preliminary NO GROWTH AFTER 72 HOURS Resulted 09/27/18 16:30 Nasal Nares Left MRSA Culture - Final NO METHICILLIN RESISTANT STAPH AUREUS... Complete 09/27/18 16:30 Rectum VRE Culture - Final NO VANCOMYCIN RESISTANT ENTEROCOCCUS ... Complete 09/27/18 16:30 Rectum - Final NO CARBAPENEM-RESISTANT ENTEROBACTERI... Complete Current Medications Medications (Trade) Dose Ordered Sig/Chace Route PRN Reason Start Time Stop Time Status Last Admin Dose Admin Acetaminophen (Tylenol) 650 mg Q4H PRN ORAL fever 09/27/18 17:45 10/27/18 17:44 Al Hydroxide/Mg Hydroxide (Mylanta II) 30 ml Q6H PRN ORAL dyspepsia 09/27/18 17:45 10/27/18 17:44 Ascorbic Acid (Vitamin C) 500 mg TWICE A DAY ORAL 09/30/18 18:00 10/30/18 17:59 10/01/18 09:31 Carvedilol (Coreg) 25 mg EVERY 12 HOURS ORAL 09/27/18 21:00 10/27/18 20:59 10/01/18 09:31 Clonidine HCl (Catapres Tab) 0.1 mg Q4H PRN ORAL sbp> 160 09/29/18 12:00 10/29/18 11:59 Dexamethasone (Decadron) 4 mg DAILY ORAL 09/28/18 09:00 10/28/18 08:59 10/01/18 09:31 Dextrose (Dextrose 50%) 25 ml Q30M PRN IV Hypoglycemia 09/27/18 17:45 10/27/18 17:44 Dextrose (Dextrose 50%) 50 ml Q30M PRN IV Hypoglycemia 09/27/18 17:45 10/27/18 17:44 Escitalopram Oxalate (Lexapro) 10 mg DAILY ORAL 10/01/18 09:00 10/31/18 08:59 10/01/18 09:31 Finasteride (Proscar) 5 mg DAILY@2100 ORAL 09/30/18 21:00 10/30/18 20:59 09/30/18 21:30 Haloperidol Lactate (Haldol) 5 mg Q6H PRN IM Agitation 09/30/18 11:45 10/30/18 11:44 Insulin Aspart (NovoLOG) BEFORE MEALS AND HS SUBQ 09/27/18 21:00 10/27/18 20:59 10/01/18 05:58 Lamotrigine (LaMICtal) 50 mg DAILY ORAL 10/01/18 09:00 10/31/18 08:59 10/01/18 09:31 Lorazepam (Ativan 2mg/ml 1ml) 0.5 mg Q4H PRN IV For Anxiety 09/27/18 17:45 10/04/18 17:44 09/30/18 19:25 Methadone HCl (Methadone HCl) 5 mg Q6H PRN ORAL PAIN 4-10 09/29/18 12:00 10/06/18 11:59 09/29/18 13:33 Morphine Sulfate (Morphine Sulfate) 2 mg Q4H PRN IVP SEVERE BREAKTHROUGH PAIN 09/29/18 13:45 10/04/18 17:44 10/01/18 09:33 Multivitamins (Multivitamins) 1 tab DAILY ORAL 10/01/18 09:00 10/31/18 08:59 Ondansetron HCl (Zofran) 4 mg Q6H PRN IVP Nausea & Vomiting 09/27/18 17:45 10/27/18 17:44 Polyethylene Glycol (Miralax) 17 gm HSPRN PRN ORAL Constipation 09/27/18 17:45 10/27/18 17:44 Quetiapine Fumarate (SEROquel) 25 mg Q12HR ORAL 09/30/18 21:00 10/30/18 20:59 10/01/18 09:31 Sitagliptin Phosphate (Januvia) 50 mg DAILY ORAL 09/28/18 09:00 10/28/18 08:59 09/30/18 09:04 Tamsulosin HCl (Flomax) 0.4 mg BEDTIME ORAL 09/30/18 21:00 10/30/18 20:59 09/30/18 21:23 Zolpidem Tartrate (Ambien) 5 mg HSPRN PRN ORAL Insomnia 09/27/18 17:45 10/04/18 17:44 Laboratory Tests 10/01/18 05:30: White Blood Count 5.9, Red Blood Count 4.19L, Hemoglobin 13.0L, Hematocrit 37.3L , Mean Corpuscular Volume 89, Mean Corpuscular Hemoglobin 31.1H, Mean Corpuscular Hemoglobin Concent 34.9, Red Cell Distribution Width 12.8, Platelet Count 71L, Mean Platelet Volume 7.9, Neutrophils (%) (Auto) , Lymphocytes (%) ( Auto) , Monocytes (%) (Auto) , Eosinophils (%) (Auto) , Basophils (%) (Auto) , Differential Total Cells Counted 100, Neutrophils % (Manual) 83H, Lymphocytes % (Manual) 6L, Monocytes % (Manual) 7, Eosinophils % (Manual) 0, Basophils % ( Manual) 0, Band Neutrophils 4, Platelet Estimate DecreasedL, Platelet Morphology Normal, Red Blood Cell Morphology Normal, Sodium Level 134L, Potassium Level 3.8, Chloride Level 98, Carbon Dioxide Level 31, Anion Gap 5, Blood Urea Nitrogen 11, Creatinine 0.7, Estimat Glomerular Filtration Rate > 60 , Glucose Level 149H, Calcium Level 8.3L, Valproic Acid (Depakene) Level 21L Height (Feet): 5 Height (Inches): 9.00 Weight (Pounds): 164 Objective exam stable carroll indwelling, blood-tinged urine Isael Rousseau MD Oct 01, 2018 09:53
--- NOTE | 2018-10-01 10:27 | Infectious Diseases Prog Note ---
Assessment/Plan Assessment/Plan 68 yo male with PMHx of Brain CA, Seizures, DM, CVA with deficits and CAD who was sent to the ED for AMS on 09/27/18 from his [facility]. 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 Seizure disorder DM Hx CVA with right hemiparesis and expressive aphasia HTN CAD Plan - Continue to monitor off abx as he is clinically stable - f/u repeat blood Cx - Monitor clinically - Wound care We will continue to follow the patient during this hospitalization. Subjective Allergies: Coded Allergies: No Known Allergies (Unverified , 09/27/18) Subjective Afebrile No leukoctyosis Talking but confused about location and history Objective Vital Signs Last 24 Hour Vital Signs Date Time Temp Pulse Resp B/P (MAP) Pulse Ox O2 Delivery O2 Flow Rate FiO2 10/01/18 09:31 98 125/81 10/01/18 07:58 98.2 98 18 125/81 (96) 98 10/01/18 06:00 98.3 93 20 120/78 (92) 97 10/01/18 00:00 98.4 95 20 129/77 (94) 98 09/30/18 23:14 Room Air 09/30/18 21:29 100 133/88 09/30/18 20:00 99.2 100 17 133/88 (103) 96 09/30/18 16:00 98.0 69 19 109/76 (87) 98 09/30/18 12:00 98.7 78 19 90/58 (69) 97 Height (Feet): 5 Height (Inches): 9.00 Weight (Pounds): 164 Objective Gen: NAD HEENT: NCAT, MMM, EOM LUNGS: CTAB, No W CARDS: RRR, S1, S2, No M/R/G, ABD: Soft, NT, ND, + BS SKIN: Warm/dry, No rashes, Sacral ulcer stage 1 mild erythema Laboratory Tests Test 10/01/18 05:30 White Blood Count 5.9 K/UL (4.8-10.8) Red Blood Count 4.19 M/UL (4.70-6.10) L Hemoglobin 13.0 G/DL (14.2-18.0) L Hematocrit 37.3 % (42.0-52.0) L Mean Corpuscular Volume 89 FL (80-99) Mean Corpuscular Hemoglobin 31.1 PG (27.0-31.0) H Mean Corpuscular Hemoglobin Concent 34.9 G/DL (32.0-36.0) Red Cell Distribution Width 12.8 % (11.6-14.8) Platelet Count 71 K/UL (150-450) L Mean Platelet Volume 7.9 FL (6.5-10.1) Neutrophils (%) (Auto) % (45.0-75.0) Lymphocytes (%) (Auto) % (20.0-45.0) Monocytes (%) (Auto) % (1.0-10.0) Eosinophils (%) (Auto) % (0.0-3.0) Basophils (%) (Auto) % (0.0-2.0) Differential Total Cells Counted 100 Neutrophils % (Manual) 83 % (45-75) H Lymphocytes % (Manual) 6 % (20-45) L Monocytes % (Manual) 7 % (1-10) Eosinophils % (Manual) 0 % (0-3) Basophils % (Manual) 0 % (0-2) Band Neutrophils 4 % (0-8) Platelet Estimate Decreased L Platelet Morphology Normal Red Blood Cell Morphology Normal Sodium Level 134 MMOL/L (136-145) L Potassium Level 3.8 MMOL/L (3.5-5.1) Chloride Level 98 MMOL/L (98-107) Carbon Dioxide Level 31 MMOL/L (21-32) Anion Gap 5 mmol/L (5-15) Blood Urea Nitrogen 11 mg/dL (7-18) Creatinine 0.7 MG/DL (0.55-1.30) Estimat Glomerular Filtration Rate > 60 mL/min (>60) Glucose Level 149 MG/DL (74-106) H Calcium Level 8.3 MG/DL (8.5-10.1) L Valproic Acid (Depakene) Level 21 MCG/ML (50-100) L Current Medications Medications (Trade) Dose Ordered Sig/Chace Route PRN Reason Start Time Stop Time Status Last Admin Dose Admin Acetaminophen (Tylenol) 650 mg Q4H PRN ORAL fever 4/7/19 17:45 10/27/18 17:44 Al Hydroxide/Mg Hydroxide (Mylanta II) 30 ml Q6H PRN ORAL dyspepsia 09/27/18 17:45 10/27/18 17:44 Ascorbic Acid (Vitamin C) 500 mg TWICE A DAY ORAL 09/30/18 18:00 10/30/18 17:59 10/01/18 09:31 Carvedilol (Coreg) 25 mg EVERY 12 HOURS ORAL 09/27/18 21:00 10/27/18 20:59 10/01/18 09:31 Clonidine HCl (Catapres Tab) 0.1 mg Q4H PRN ORAL sbp> 160 09/29/18 12:00 10/29/18 11:59 Dexamethasone (Decadron) 4 mg DAILY ORAL 09/28/18 09:00 10/28/18 08:59 10/01/18 09:31 Dextrose (Dextrose 50%) 25 ml Q30M PRN IV Hypoglycemia 09/27/18 17:45 10/27/18 17:44 Dextrose (Dextrose 50%) 50 ml Q30M PRN IV Hypoglycemia 09/27/18 17:45 10/27/18 17:44 Escitalopram Oxalate (Lexapro) 10 mg DAILY ORAL 10/01/18 09:00 10/31/18 08:59 10/01/18 09:31 Finasteride (Proscar) 5 mg DAILY@2100 ORAL 09/30/18 21:00 10/30/18 20:59 09/30/18 21:30 Haloperidol Lactate (Haldol) 5 mg Q6H PRN IM Agitation 09/30/18 11:45 10/30/18 11:44 Insulin Aspart (NovoLOG) BEFORE MEALS AND HS SUBQ 09/27/18 21:00 10/27/18 20:59 10/01/18 05:58 Lamotrigine (LaMICtal) 50 mg DAILY ORAL 10/01/18 09:00 10/31/18 08:59 10/01/18 09:31 Lorazepam (Ativan 2mg/ml 1ml) 0.5 mg Q4H PRN IV For Anxiety 09/27/18 17:45 10/04/18 17:44 09/30/18 19:25 Methadone HCl (Methadone HCl) 5 mg Q6H PRN ORAL PAIN -09/29/18 12:00 10/06/18 11:59 09/29/18 13:33 Morphine Sulfate (Morphine Sulfate) 2 mg Q4H PRN IVP SEVERE BREAKTHROUGH PAIN 09/29/18 13:45 10/04/18 17:44 10/01/18 09:33 Multivitamins (Multivitamins) 1 tab DAILY ORAL 10/01/18 09:00 10/31/18 08:59 Ondansetron HCl (Zofran) 4 mg Q6H PRN IVP Nausea & Vomiting 09/27/18 17:45 10/27/18 17:44 Polyethylene Glycol (Miralax) 17 gm HSPRN PRN ORAL Constipation 09/27/18 17:45 10/27/18 17:44 Quetiapine Fumarate (SEROquel) 25 mg Q12HR ORAL 09/30/18 21:00 10/30/18 20:59 10/01/18 09:31 Sitagliptin Phosphate (Januvia) 50 mg DAILY ORAL 09/28/18 09:00 10/28/18 08:59 09/30/18 09:04 Tamsulosin HCl (Flomax) 0.4 mg BEDTIME ORAL 09/30/18 21:00 10/30/18 20:59 09/30/18 21:23 Zolpidem Tartrate (Ambien) 5 mg HSPRN PRN ORAL Insomnia 09/27/18 17:45 10/04/18 17:44 Ramon Blanca MD Oct 01, 2018 10:26
[2018-10-01] MEDS: sitaGLIPtin 50mg tab ORAL SCH (10:58)
[2018-10-01 12:00] VITALS: BP 94/60
--- NOTE | 2018-10-01 12:54 | Pulmonology Progress Note ---
Assessment/Plan Problems: (1) Acute encephalopathy (2) Seizure disorder (3) Brain tumor (4) Hypertension (5) Diabetes mellitus Assessment/Plan more awake decrease Depakote increase morphine sliding scale seizure precaution social service consult. d/w niece at the bed site Subjective ROS Limited/Unobtainable: No Constitutional: Reports: no symptoms HEENT: Repors: no symptoms Respiratory: Reports: no symptoms Allergies: Coded Allergies: No Known Allergies (Unverified , 09/27/18) Objective Last 24 Hour Vital Signs Date Time Temp Pulse Resp B/P (MAP) Pulse Ox O2 Delivery O2 Flow Rate FiO2 10/01/18 12:00 98.5 95 18 94/60 (71) 98 10/01/18 10:03 98.2 10/01/18 09:31 98 125/81 10/01/18 07:58 98.2 98 18 125/81 (96) 98 10/01/18 06:00 98.3 93 20 120/78 (92) 97 10/01/18 00:00 98.4 95 20 129/77 (94) 98 09/30/18 23:14 Room Air 09/30/18 21:29 100 133/88 09/30/18 20:00 99.2 100 17 133/88 (103) 96 09/30/18 16:00 98.0 69 19 109/76 (87) 98 Intake and Output 09/30/18 10/01/18 19:00 07:00 Intake Total 500 ml 720 ml Output Total 440 ml Balance 500 ml 280 ml Intake Oral 500 ml 660 ml Other 60 ml Output Urine Total 440 ml General Appearance: WD/WN HEENT: normocephalic, anicteric Respiratory/Chest: chest wall non-tender, normal breath sounds Cardiovascular: normal peripheral pulses, regular rhythm Abdomen: non distended Extremities: no cyanosis, no clubbing Laboratory Tests 10/01/18 05:30: White Blood Count 5.9, Red Blood Count 4.19L, Hemoglobin 13.0L, Hematocrit 37.3L , Mean Corpuscular Volume 89, Mean Corpuscular Hemoglobin 31.1H, Mean Corpuscular Hemoglobin Concent 34.9, Red Cell Distribution Width 12.8, Platelet Count 71L, Mean Platelet Volume 7.9, Neutrophils (%) (Auto) , Lymphocytes (%) ( Auto) , Monocytes (%) (Auto) , Eosinophils (%) (Auto) , Basophils (%) (Auto) , Differential Total Cells Counted 100, Neutrophils % (Manual) 83H, Lymphocytes % (Manual) 6L, Monocytes % (Manual) 7, Eosinophils % (Manual) 0, Basophils % ( Manual) 0, Band Neutrophils 4, Platelet Estimate DecreasedL, Platelet Morphology Normal, Red Blood Cell Morphology Normal, Sodium Level 134L, Potassium Level 3.8, Chloride Level 98, Carbon Dioxide Level 31, Anion Gap 5, Blood Urea Nitrogen 11, Creatinine 0.7, Estimat Glomerular Filtration Rate > 60 , Glucose Level 149H, Calcium Level 8.3L, Valproic Acid (Depakene) Level 21L Current Medications Medications (Trade) Dose Ordered Sig/Chace Route PRN Reason Start Time Stop Time Status Last Admin Dose Admin Acetaminophen (Tylenol) 650 mg Q4H PRN ORAL fever 09/27/18 17:45 10/27/18 17:44 Al Hydroxide/Mg Hydroxide (Mylanta II) 30 ml Q6H PRN ORAL dyspepsia 09/27/18 17:45 10/27/18 17:44 Ascorbic Acid (Vitamin C) 500 mg TWICE A DAY ORAL 09/30/18 18:00 10/30/18 17:59 10/01/18 09:31 Carvedilol (Coreg) 25 mg EVERY 12 HOURS ORAL 09/27/18 21:00 10/27/18 20:59 10/01/18 09:31 Clonidine HCl (Catapres Tab) 0.1 mg Q4H PRN ORAL sbp> 160 09/29/18 12:00 10/29/18 11:59 Dexamethasone (Decadron) 4 mg DAILY ORAL 09/28/18 09:00 10/28/18 08:59 10/01/18 09:31 Dextrose (Dextrose 50%) 25 ml Q30M PRN IV Hypoglycemia 09/27/18 17:45 10/27/18 17:44 Dextrose (Dextrose 50%) 50 ml Q30M PRN IV Hypoglycemia 09/27/18 17:45 10/27/18 17:44 Escitalopram Oxalate (Lexapro) 10 mg DAILY ORAL 10/01/18 09:00 10/31/18 08:59 10/01/18 09:31 Finasteride (Proscar) 5 mg DAILY@2100 ORAL 09/30/18 21:00 5/10/19 20:59 09/30/18 21:30 Haloperidol Lactate (Haldol) 5 mg Q6H PRN IM Agitation 09/30/18 11:45 10/30/18 11:44 Insulin Aspart (NovoLOG) BEFORE MEALS AND HS SUBQ 09/27/18 21:00 10/27/18 20:59 10/01/18 11:22 Lamotrigine (LaMICtal) 50 mg DAILY ORAL 10/01/18 09:00 10/31/18 08:59 10/01/18 09:31 Lorazepam (Ativan 2mg/ml 1ml) 0.5 mg Q4H PRN IV For Anxiety 09/27/18 17:45 10/04/18 17:44 09/30/18 19:25 Methadone HCl (Methadone HCl) 5 mg Q6H PRN ORAL PAIN 09-3009/29/18 12:00 10/06/18 11:59 09/29/18 13:33 Morphine Sulfate (Morphine Sulfate) 2 mg Q4H PRN IVP SEVERE BREAKTHROUGH PAIN 09/29/18 13:45 10/04/18 17:44 10/01/18 09:33 Multivitamins (Multivitamins) 1 tab DAILY ORAL 10/01/18 09:00 10/31/18 08:59 10/01/18 10:58 Ondansetron HCl (Zofran) 4 mg Q6H PRN IVP Nausea & Vomiting 09/27/18 17:45 10/27/18 17:44 Polyethylene Glycol (Miralax) 17 gm HSPRN PRN ORAL Constipation 09/27/18 17:45 10/27/18 17:44 Quetiapine Fumarate (SEROquel) 25 mg Q12HR ORAL 09/30/18 21:00 10/30/18 20:59 10/01/18 09:31 Sitagliptin Phosphate (Januvia) 50 mg DAILY ORAL 09/28/18 09:00 10/28/18 08:59 10/01/18 10:58 Tamsulosin HCl (Flomax) 0.4 mg BEDTIME ORAL 09/30/18 21:00 10/30/18 20:59 09/30/18 21:23 Zolpidem Tartrate (Ambien) 5 mg HSPRN PRN ORAL Insomnia 09/27/18 17:45 10/04/18 17:44 Raul Feng MD Oct 01, 2018 12:54
--- NOTE | 2018-10-01 13:50 | NUR ---
Social Service Note Per Dr. Feng he spoke with patient's son Pollo [phone] and confirmed DNR/DNI status. Patient is anticipated to dc back to facility today.
[2018-10-01] MEDS ORDERED: LAMICTAL25 MG ORAL (13:53)
[2018-10-01] MEDS ORDERED: FLOMAX0.4 MG ORAL (13:53)
[2018-10-01] MEDS ORDERED: JANUVIA50 MG ORAL (13:53)
[2018-10-01] MEDS ORDERED: SEROQUEL25 MG ORAL (13:53)
[2018-10-01] MEDS ORDERED: DECADRON2 MG ORAL (13:53)
[2018-10-01] MEDS ORDERED: COREG25 MG ORAL (13:53)
[2018-10-01] MEDS ORDERED: FINASTERIDE5 MG ORAL (13:53)
--- NOTE | 2018-10-01 15:00 | NUR ---
DISCHARGE PLAN DISCHARGE ORDER NOTED FAXED [facility] TO [facility] T: [phone] F: [phone]
--- NOTE | 2018-10-01 15:24 | NUR ---
ST NOTE: BEDSIDE SWALLOW EVAL RECEIVED BEDSIDE SWALLOW EVAL CHART REVIEWED PRIOR THE EVALUATION PT IS A 68-YEAR-OLD GENTLEMAN WAS ADMITTED DUE TO ALTERED MENTAL STATUS AND BRAIN TUMOR. 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 Underlying encephalomalacia, suspect related to such, could also indicate an old infarct. H/O CRANIOTOMY, HTN, EXPRESSIVE APHASIA. PT RESIDES AT SNF FACILITY, PT WAS PUT ON JHON, CCHO REGULAR WITH THIN LIQUID DIET. PER PT'S PHYSICIAN ORDERS FOR LIFE-SUSTAINING TREATMENT(POLST), PT IS FULL CODE, FULL TREATMENT, OKAY FOR TRIAL PERIOD OF ARTIFICIAL NUTRITION, INCLUDING FEEDING TUBES. PT SEEN BEDSIDE IN PM. AWAKE WITH CUES, NURSING STAFF AT BEDSIDE. PER NURSING STAFF, PT ATE WELL FOR BREAKFAST AND LUNCH WITHOUT OVERT S/S OF ASPIRATION; HOWEVER, PT REQUIRED 1TO1 FEED. PO TRIALS: THIN(STRAW-SEQUENTIAL) ONLY, PT WAS VERY SLEEPY. PT DID NOT PARTICIPATE ORAL MOTOR EXAMINATION. INITIAL IMPRESSION: GOOD OROPHARYNGEAL TRANSIT TIME FROM MOUTH TO PHARYNX OR WHEN HYOID BONE ELEVATE(2 TO 3 SECONDS), LARYNGEAL ELEVATION APPEARS ADEQUATE, NO OVERT S/S OF ASPIRATION WAS NOTED. PER ELLE'S NOTE, SW spoke with patient's son. Son confirms patient has expressed multiple times his desire to be DNR/DNI and the desire to . Patient has stopped treatment for his brain tumor. Son states different family members visit him throughout the week. Today his brother and niece visited. Son states family is unable to care for him at home and patient has expressed loneliness living in a facility. RECOMMENDATIONS: 1. FOR QUALITY OF LIFE, CONTINUE REGULAR WITH THIN LIQUID DIET (MODIFIED/CHOP THE FOOD IN FRONT OF THE PT) 2. STRICT ASPIRATION PRECAUTIONS WITH 1TO1 FEEDING. 3. CONSIDER MODIFIED BARIUM SWALLOW STUDY IP OR OP. D/W THE STAFF POSTED ASPIRATION PRECAUTIONS SIGN.
--- NOTE | 2018-10-01 15:27 | NUR ---
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
[2018-10-01 16:00] VITALS: BP 99/58
--- NOTE | 2018-10-01 16:01 | Surgery Progress Note ---
Surgery Progress Note Subjective Additional Comments no acute events. comfortable. stable. not responsive today. sitter at bedside Objective Last 24 Hour Vital Signs Date Time Temp Pulse Resp B/P (MAP) Pulse Ox O2 Delivery O2 Flow Rate FiO2 10/01/18 12:00 98.5 95 18 94/60 (71) 98 10/01/18 10:03 98.2 10/01/18 09:31 98 125/81 10/01/18 09:00 Room Air 10/01/18 07:58 98.2 98 18 125/81 (96) 98 10/01/18 06:00 98.3 93 20 120/78 (92) 97 10/01/18 00:00 98.4 95 20 129/77 (94) 98 09/30/18 23:14 Room Air 09/30/18 21:29 100 133/88 09/30/18 20:00 99.2 100 17 133/88 (103) 96 I&O Intake and Output 09/30/18 10/01/18 19:00 07:00 Intake Total 500 ml 720 ml Output Total 440 ml Balance 500 ml 280 ml Intake Oral 500 ml 660 ml Other 60 ml Output Urine Total 440 ml Dressing: other Wound: other Drains: other Cardiovascular: RSR Respiratory: clear Abdomen: soft, present bowel sounds, non-distended Extremities: no tenderness, no cyanosis Laboratory Tests Test 10/01/18 05:30 White Blood Count 5.9 K/UL (4.8-10.8) Red Blood Count 4.19 M/UL (4.70-6.10) L Hemoglobin 13.0 G/DL (14.2-18.0) L Hematocrit 37.3 % (42.0-52.0) L Mean Corpuscular Volume 89 FL (80-99) Mean Corpuscular Hemoglobin 31.1 PG (27.0-31.0) H Mean Corpuscular Hemoglobin Concent 34.9 G/DL (32.0-36.0) Red Cell Distribution Width 12.8 % (11.6-14.8) Platelet Count 71 K/UL (150-450) L Mean Platelet Volume 7.9 FL (6.5-10.1) Neutrophils (%) (Auto) % (45.0-75.0) Lymphocytes (%) (Auto) % (20.0-45.0) Monocytes (%) (Auto) % (1.0-10.0) Eosinophils (%) (Auto) % (0.0-3.0) Basophils (%) (Auto) % (0.0-2.0) Differential Total Cells Counted 100 Neutrophils % (Manual) 83 % (45-75) H Lymphocytes % (Manual) 6 % (20-45) L Monocytes % (Manual) 7 % (1-10) Eosinophils % (Manual) 0 % (0-3) Basophils % (Manual) 0 % (0-2) Band Neutrophils 4 % (0-8) Platelet Estimate Decreased L Platelet Morphology Normal Red Blood Cell Morphology Normal Sodium Level 134 MMOL/L (136-145) L Potassium Level 3.8 MMOL/L (3.5-5.1) Chloride Level 98 MMOL/L (98-107) Carbon Dioxide Level 31 MMOL/L (21-32) Anion Gap 5 mmol/L (5-15) Blood Urea Nitrogen 11 mg/dL (7-18) Creatinine 0.7 MG/DL (0.55-1.30) Estimat Glomerular Filtration Rate > 60 mL/min (>60) Glucose Level 149 MG/DL (74-106) H Calcium Level 8.3 MG/DL (8.5-10.1) L Valproic Acid (Depakene) Level 21 MCG/ML (50-100) L Plan Problems: (1) Sacral decubitus ulcer Assessment & Plan: Pt presented on admission with DTPI with small opening over coccyx. Base of wound fluctuant,purple with maroon borders. (L)9cm x (W)6.5cm. Non-blanchable erythema without induration periwound. Bilat elbows and bilat heels are pink and blanchable.No other skin concerns noted. Tx.Plan: Cleanse sacral wound with Saline.Apply Triad Paste. Cover with Optifoam drsg. Change every 3 days and prn. Apply Cavilon Skin Barrier to both heels. Cover each heel with Optifoam drsg. Change every 7 days and prn. APM/ADRIAN Mattress overlay. Reposition at least every 2 hours or as tolerated. Off-load heels with pillow. (2) Deep tissue injury Assessment & Plan: DAILY ESTIMATED NEEDS: Needs based on Wound, cardiac, DM/ 64.5kg 25-30 kcals/kg 8926-3094 total kcals 1.25-1.5 g protein/kg 80-96 g total protein 25-30 mL/kg 5277-4983 total fluid mLs NUTRITION DIAGNOSIS: * Increased kcal/prot needs R/T wound healing as evidenced by DTPI with small opening @ coccyx. * Altered nutrition related lab values R/T h/o DM, clinical condition as evidenced by elev POC glu (109-198), low mag (1.7), elev NH3 (41). CURRENT DIET:CCHO MED, regular PO DIET RECOMMENDATIONS: CCHO MED, LOW NA/ texture per CUSTOMER SALES REPRESENTATIVE + Glucerna 1 jakcie BID in b/w meals ADDITIONAL RECOMMENDATIONS: * Calibrated bedscale wt for accurate CBW * Wound healing: add MVI x 1, Vit C 500mg QD, Ziyad 1pkt BID * Monitor lytes, replete as needed (low mag) * Monitor BGs closely- h/o DM, on Decadron * A1C for eval of glycemic control (3) Altered mental status (4) Acute encephalopathy (5) Seizure disorder (6) Brain tumor (7) Diabetes mellitus (8) Hypertension Harry Rivas Oct 01, 2018 16:01
--- NOTE | 2018-10-01 16:30 | NUR ---
NURSE NOTES: PATIENT REMAINS STABLE. TURNED Q2H. SITTER AT BEDSIDE.DISCHARGE ORDER RECEIVED. REPORT GIVEN TO LUIS ANGEL AT [facility]. PATIENT WILL BE DISCHARGED WITH [facility] IN PLACE PER MD ORDER. WILL BE TRANSFERRED VIA AMBULANCE.
--- NOTE | 2018-10-01 17:45 | NUR ---
NURSE NOTES: PATIENT READY FOR DISCHARGE VIA AMBULANCE.WOUND PHOTO TAKENED OF SACRAL AREA AND REPORTED TO RECEIVING NURSE @ SNF.
[2018-10-01] MEDS ORDERED: Sterile Water Irrig 1000ml IRRIG ONE (17:57)
[2018-10-01] MEDS ORDERED: NS Irrig 1000ml ONE (17:57)
--- NOTE | 2018-10-01 22:22 | General Progress Note ---
Assessment/Plan Problem List: (1) acute toxic encephalopathy (2) Valproic acid toxicity ICD Codes: T42.6X1A - Poisoning by other antiepileptic and sedative-hypnotic drugs, accidental (unintentional), initial encounter SNOMED: 736234479 Assessment/Plan iris Sotelorere marshall lamictal repeat [place] level tomorrow Subjective Neurologic/Psychiatric: Reports: anxiety, depressed, emotional problems Allergies: Coded Allergies: No Known Allergies (Unverified , 09/27/18) Objective Last 24 Hour Vital Signs Date Time Temp Pulse Resp B/P (MAP) Pulse Ox O2 Delivery O2 Flow Rate FiO2 10/01/18 16:00 98.8 94 18 99/58 (72) 96 10/01/18 12:00 98.5 95 18 94/60 (71) 98 10/01/18 10:03 98.2 10/01/18 09:31 98 125/81 10/01/18 09:00 Room Air 10/01/18 07:58 98.2 98 18 125/81 (96) 98 10/01/18 06:00 98.3 93 20 120/78 (92) 97 10/01/18 00:00 98.4 95 20 129/77 (94) 98 09/30/18 23:14 Room Air Intake and Output 09/30/18 10/01/18 19:00 07:00 Intake Total 500 ml 720 ml Output Total 440 ml Balance 500 ml 280 ml Intake Oral 500 ml 660 ml Other 60 ml Output Urine Total 440 ml Laboratory Tests 10/01/18 05:30: White Blood Count 5.9, Red Blood Count 4.19L, Hemoglobin 13.0L, Hematocrit 37.3L , Mean Corpuscular Volume 89, Mean Corpuscular Hemoglobin 31.1H, Mean Corpuscular Hemoglobin Concent 34.9, Red Cell Distribution Width 12.8, Platelet Count 71L, Mean Platelet Volume 7.9, Neutrophils (%) (Auto) , Lymphocytes (%) ( Auto) , Monocytes (%) (Auto) , Eosinophils (%) (Auto) , Basophils (%) (Auto) , Differential Total Cells Counted 100, Neutrophils % (Manual) 83H, Lymphocytes % (Manual) 6L, Monocytes % (Manual) 7, Eosinophils % (Manual) 0, Basophils % ( Manual) 0, Band Neutrophils 4, Platelet Estimate DecreasedL, Platelet Morphology Normal, Red Blood Cell Morphology Normal, Sodium Level 134L, Potassium Level 3.8, Chloride Level 98, Carbon Dioxide Level 31, Anion Gap 5, Blood Urea Nitrogen 11, Creatinine 0.7, Estimat Glomerular Filtration Rate > 60 , Glucose Level 149H, Calcium Level 8.3L, Valproic Acid (Depakene) Level 21L Height (Feet): 5 Height (Inches): 9.00 Weight (Pounds): 164 General Appearance: alert, confused, agitated Kenn Loza MD Oct 01, 2018 22:22
--- NOTE | 2018-10-01 22:23 | General Progress Note ---
Assessment/Plan Problem List: (1) acute toxic encephalopathy (2) Valproic acid toxicity ICD Codes: T42.6X1A - Poisoning by other antiepileptic and sedative-hypnotic drugs, accidental (unintentional), initial encounter SNOMED: 527011240 Status: stable Assessment/Plan Lexshayan marshall lamictal repeat [place] level tomorrow Subjective Date patient seen: Sep 29, 2018 Neurologic/Psychiatric: Reports: anxiety, depressed, emotional problems Allergies: Coded Allergies: No Known Allergies (Unverified , 09/27/18) Objective Last 24 Hour Vital Signs Date Time Temp Pulse Resp B/P (MAP) Pulse Ox O2 Delivery O2 Flow Rate FiO2 10/01/18 16:00 98.8 94 18 99/58 (72) 96 10/01/18 12:00 98.5 95 18 94/60 (71) 98 10/01/18 10:03 98.2 10/01/18 09:31 98 125/81 10/01/18 09:00 Room Air 10/01/18 07:58 98.2 98 18 125/81 (96) 98 10/01/18 06:00 98.3 93 20 120/78 (92) 97 10/01/18 00:00 98.4 95 20 129/77 (94) 98 09/30/18 23:14 Room Air Intake and Output 09/30/18 10/01/18 19:00 07:00 Intake Total 500 ml 720 ml Output Total 440 ml Balance 500 ml 280 ml Intake Oral 500 ml 660 ml Other 60 ml Output Urine Total 440 ml Laboratory Tests 10/01/18 05:30: White Blood Count 5.9, Red Blood Count 4.19L, Hemoglobin 13.0L, Hematocrit 37.3L , Mean Corpuscular Volume 89, Mean Corpuscular Hemoglobin 31.1H, Mean Corpuscular Hemoglobin Concent 34.9, Red Cell Distribution Width 12.8, Platelet Count 71L, Mean Platelet Volume 7.9, Neutrophils (%) (Auto) , Lymphocytes (%) ( Auto) , Monocytes (%) (Auto) , Eosinophils (%) (Auto) , Basophils (%) (Auto) , Differential Total Cells Counted 100, Neutrophils % (Manual) 83H, Lymphocytes % (Manual) 6L, Monocytes % (Manual) 7, Eosinophils % (Manual) 0, Basophils % ( Manual) 0, Band Neutrophils 4, Platelet Estimate DecreasedL, Platelet Morphology Normal, Red Blood Cell Morphology Normal, Sodium Level 134L, Potassium Level 3.8, Chloride Level 98, Carbon Dioxide Level 31, Anion Gap 5, Blood Urea Nitrogen 11, Creatinine 0.7, Estimat Glomerular Filtration Rate > 60 , Glucose Level 149H, Calcium Level 8.3L, Valproic Acid (Depakene) Level 21L Height (Feet): 5 Height (Inches): 9.00 Weight (Pounds): 164 General Appearance: WD/WN, no apparent distress, alert, confused, agitated Kenn Loza MD Oct 01, 2018 22:23
--- NOTE | 2018-10-05 12:01 | Discharge Summary ---
Discharge Summary Discharge Summary _ DATE OF ADMISSION: 09/27/2018 DATE OF DISCHARGE: 10/01/2018 ADMITTING MD: Dr. Camacho Braun DISCHARGED BY: Dr. Raul Feng CONSULTANTS: Dr. Raul Rousseau [facility] COU[facility]SE: Patient is a 68-year-old male, with history of brain tumor, presented to ED with chief complaint of altered mental status. The patient is a resident of [facility]. According to the [facility] at [facility], the patient began to have altered mental status. The patient was transferred to [facility]. He has medical history significant for brain cancer, seizure disorder, diabetes type 2, CVA with right hemiparesis , hypertension, coronary artery disease and expressive aphasia. On evaluation at ED, vital signs were stable. Blood work did not show any leukocytosis, hemoglobin and hematocrit were stable, platelet count was 78. Electrolytes were normal. Lactic acid was elevated to 3.4. Depakote level was elevated to 121. Showed +1 protein, +1 glucose, +3 ketones, negative nitrite, 0 -2 RBC, 0-2 WBC. EKG was in normal sinus rhythm with no acute changes. Head CT was negative for acute intracranial bleed, or mass-effect. There was evidence of left focal temporal craniotomy and underlying encephalomalacia and ventriculomegaly. Chest x-ray did not show any acute process. He was then admitted for evaluation of encephalopathy. He was placed on seizure precautions and frequent neuro checks. Depakote dose was decreased. He was noted to have deep tissue pressure injury of the sacrum. Surgery was called to evaluate and assist with care. He was given wound care. He was placed on APM/ADRIAN mattress overlay with frequent repositioning and offloading. Nutritional status was optimized. He had positive blood culture with coagulase-negative staph, most likely skin contaminant. Urinalysis was negative. Repeat blood culture was obtained. Sacral ulcer did not seem to be infected. Social service was consulted. CODE STATUS was confirmed. Patient DNR/DNI. He was diagnosed with valproic acid toxicity. Depakote was discontinued by psychiatrist. He was started on Lexapro, Seroquel and Lamictal. Patient was confused and pulled out Carroll catheter. There was gross hematuria noted. Nursing staff was unable to reinsert the Carroll. Urologist was consulted and inserted a 20 Ukrainian coud catheter. He was given Flomax and finasteride. He was placed on bilateral wrist restraints to keep him from pulling Carroll catheter. Bilateral venous duplex was negative for acute DVT. Echocardiogram showed mid apical anteroseptal wall hypokinesia with left ventricular ejection fraction estimated 45-50%. Repeat blood cultures did not isolate any growth. He was discharged back to group home with carroll catheter. 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 DISCHARGE MEDICATIONS: Refer to Discharge Medication List. I have been assigned to complete a discharge summary on this account, I was not involved with the patient's management. Rowan Singleton NP Oct 05, 2018 12:01
== END 2018-10-01 17:58 | DRG 71 ==
LOC: EDBD 13:56 → EMR 14:20 → 2E 15:02 → EDBEDREQ 15:32 → 3E 09-29 02:06
DX: G93.41 Metabolic encephalopathy (principal); C71.9 Malignant neoplasm of brain, unspecified; I69.351 Hemiplegia and hemiparesis following cerebral infarction affecting right dominant side; T42.6X1A Poisoning by other antiepileptic and sedative-hypnotic drugs, accidental (unintentional), initial encounter; L89.150 Pressure ulcer of sacral region, unstageable; E11.9 Type 2 diabetes mellitus without complications; I25.10 Atherosclerotic heart disease of native coronary artery without angina pectoris; G40.909 Epilepsy, unspecified, not intractable, without status epilepticus; I69.320 Aphasia following cerebral infarction; I10 Essential (primary) hypertension; R31.0 Gross hematuria; N40.1 Benign prostatic hyperplasia with lower urinary tract symptoms; R33.8 Other retention of urine; N31.9 Neuromuscular dysfunction of bladder, unspecified; N35.919 Unspecified urethral stricture, male, unspecified site; Z79.4 Long term (current) use of insulin
CPT/HCPCS: 36415; 70450; 71045; 80048; 80053; 80061; 80164; 81003; 82140; 82550; 82553; 82962; 83605; 83690; 83735; 83880; 84100; 84484; 85007; 85025; 85060; 85610; 85651; 85730; 86140; 87040; 87081; 87181; 93005; 93306; 93970; 96360; 99285; J1815

== ENCOUNTER 2018-10-10 10:48 | Inpatient (IN) | payer MEDICARE, OTHER ==
[~2018-10-10] VITALS: Ht 170.2 cm; Wt 70.4 kg
[~2018-10-10 10:48] MED LIST: CARVEDILOL25 MG ORAL; COREG25 MG ORAL; DECADRON2 MG ORAL; DEPAKOTE125 MG PO; DEXAMETHASONE2 MG PO; DIVALPROEX SOD500 MG PO; DOCUSATE SODIU100 M2 ORAL; ELIQUIS5 MG PO; FINASTERIDE5 MG ORAL; FLOMAX0.4 MG ORAL; GLUCOPHAGE1000 MG ORAL; HUMALOG100 UNIT/4 SUBQ; JANUVIA25 MG ORAL; JANUVIA50 MG ORAL; LAMICTAL25 MG ORAL; LIPITOR80 MG ORAL; LOSARTAN POTAS100 MG ORAL; MIRALAX17 G2 ORAL; SEROQUEL25 MG ORAL; TEMOZOLOMIDE PO; VIMPAT200 MG PO; VITAMIN D1000 UNI1 ORAL; ZANTAC150 MG ORAL
[2018-10-10] MEDS ORDERED: ACETAMINOPHEN325 M1 ORAL (10:55)
[2018-10-10] MEDS ORDERED: COREG12.5 MG ORAL (10:56)
[2018-10-10] MEDS ORDERED: VITAMIN D1000 UNI1 ORAL (10:56)
[2018-10-10 11:16] VITALS: BP 111/72
[2018-10-10 11:18] LABS: HEMATOCRIT 40.2 % (42.0-52.0); HEMOGLOBIN 13.7 G/DL (14.2-18.0); MEAN CORPUSCULAR VOLUME 91 FL (80-99); PLATELET COUNT 162 K/UL (150-450); RED BLOOD COUNT 4.42 M/UL (4.70-6.10); RED CELL DISTRIBUTION WIDTH 13.3 % (11.6-14.8); WHITE BLOOD COUNT 3.7 K/UL (4.8-10.8)
[2018-10-10 11:23] LABS: ANION GAP 2 mmol/L (5-15); BLOOD UREA NITROGEN 35 mg/dL (7-18); CALCIUM 9.1 MG/DL (8.5-10.1); CARBON DIOXIDE 33 MMOL/L (21-32); CHLORIDE 97 MMOL/L (98-107); CREATININE 0.9 MG/DL (0.55-1.30); POTASSIUM 4.4 MMOL/L (3.5-5.1); SODIUM 132 MMOL/L (136-145)
[2018-10-10 11:36] LABS: ALANINE AMINOTRANSFERASE 27 U/L (12-78); ALBUMIN 2.2 G/DL (3.4-5.0); ALBUMIN/GLOBULIN RATIO 0.5 (1.0-2.7); ALKALINE PHOSPHATASE 51 U/L (46-116); ASPARTATE AMINO TRANSFERASE 33 U/L (15-37); BILIRUBIN,TOTAL 0.6 MG/DL (0.2-1.0); CKMB 2.5 NG/ML (0.0-3.6); CREATINE KINASE 530 U/L (26-308)
[2018-10-10 11:50] VITALS: BP 112/71
[2018-10-10] MEDS ORDERED: cefTRIAXone 1 GM in NS 55 ML IVPB ONE (12:30)
[2018-10-10] MEDS ORDERED: FYCOMPA4 MG PO (12:40)
[2018-10-10] MEDS ORDERED: DEXAMETHASONE2 MG PO (12:40)
[2018-10-10] MEDS ORDERED: MIRALAX17 G2 ORAL (12:41)
--- NOTE | 2018-10-10 12:42 | Emergency Room Report ---
History of Present Illness General Chief Complaint: Altered Level of Consciousness Source: Medical Record Present Illness HPI Patient present from nursing facility with altered mental status The timing of the change in status is unclear From review of medical records patient appears to be getting treated for acute psychosis encephalopathy with different medication Patient himself is nonverbal History of present illness remains limited secondary to that There was no reports of vomiting or diarrhea Review of medical records also reveals a recent brain tumor removal in June with radiation Allergies: Coded Allergies: No Known Allergies (Unverified , 09/27/18) Patient History Limited by: medical condition Past Medical History: see triage record Pertinent Family History: unable to obtain Reviewed Nursing Documentation: PMH: Agreed; PSxH: Agreed Nursing Documentation-PMH Past Medical History: No History, Except For Hx Hypertension: Yes Hx Diabetes: Yes Hx Cancer: Yes - brain cancer Hx Gastrointestinal Problems: No Hx Neurological Problems: Yes - AMS, Brain tumor 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, expressive aphasia Hx Seizures: Yes Review of Systems All Other Systems: limited - Other than the ones mentioned in the history of present illness all others are reviewed however they do stay limited due to the patient's mental status Physical Exam Vital Signs Date Time Temp Pulse Resp B/P (MAP) Pulse Ox O2 Delivery O2 Flow Rate FiO2 10/10/18 10:37 97.0 118 14 103/69 96 Non-Rebreather 15.0 10/10/18 11:50 55 Sp02 EP Interpretation: reviewed, normal General Appearance: mild distress - Appears decreased mentation decreased responsiveness Procedures Critical Care Time Critical Care Time 50 minutes for multiple re-evaluations critical presentation concerning for respiratory, cardiac failure not including any procedural time Medical Decision Making Diagnostic Impression: Primary Impression: Sepsis Additional Impressions: Aspiration into airway Encephalopathy ER Course Patient is a fairly complex patient with multiple differential to consideration including but not limited to cardiac cardiopulmonary and vascular emergencies Other neurological neurovascular, vascular emergencies considered Patient also appears to have received different antipsychotic medications At this time patient's white blood cell count is low x-ray shows question of left lower lobe infiltrate Patient requiring increased oxygenation to maintain appropriate saturation And requires admission for further care Labs Test 10/10/18 11:00 10/10/18 11:05 10/10/18 12:17 10/10/18 12:30 White Blood Count 3.7 K/UL (4.8-10.8) Red Blood Count 4.42 M/UL (4.70-6.10) Hemoglobin 13.7 G/DL (14.2-18.0) Hematocrit 40.2 % (42.0-52.0) Mean Corpuscular Volume 91 FL (80-99) Mean Corpuscular Hemoglobin 31.1 PG (27.0-31.0) Mean Corpuscular Hemoglobin Concent 34.2 G/DL (32.0-36.0) Red Cell Distribution Width 13.3 % (11.6-14.8) Platelet Count 162 K/UL (150-450) Mean Platelet Volume 6.0 FL (6.5-10.1) Neutrophils (%) (Auto) % (45.0-75.0) Lymphocytes (%) (Auto) % (20.0-45.0) Monocytes (%) (Auto) % (1.0-10.0) Eosinophils (%) (Auto) % (0.0-3.0) Basophils (%) (Auto) % (0.0-2.0) Differential Total Cells Counted 100 Neutrophils % (Manual) 76 % (45-75) Lymphocytes % (Manual) 5 % (20-45) Monocytes % (Manual) 2 % (1-10) Eosinophils % (Manual) 0 % (0-3) Basophils % (Manual) 0 % (0-2) Band Neutrophils 17 % (0-8) Platelet Estimate Adequate Platelet Morphology Normal Red Blood Cell Morphology Normal Sodium Level 132 MMOL/L (136-145) Potassium Level 4.4 MMOL/L (3.5-5.1) Chloride Level 97 MMOL/L (98-107) Carbon Dioxide Level 33 MMOL/L (21-32) Anion Gap 2 mmol/L (5-15) Blood Urea Nitrogen 35 mg/dL (7-18) Creatinine 0.9 MG/DL (0.55-1.30) Estimat Glomerular Filtration Rate > 60 mL/min (>60) Glucose Level 213 MG/DL (74-106) Lactic Acid Level 2.20 mmol/L (0.4-2.0) 3.60 mmol/L (0.66-2.22) Calcium Level 9.1 MG/DL (8.5-10.1) Total Bilirubin 0.6 MG/DL (0.2-1.0) Aspartate Amino Transf (AST/SGOT) 33 U/L (15-37) Alanine Aminotransferase (ALT/SGPT) 27 U/L (12-78) Alkaline Phosphatase 51 U/L (46-116) Total Creatine Kinase 530 U/L (26-308) Creatine Kinase MB 2.5 NG/ML (0.0-3.6) Creatine Kinase MB Relative Index 0.4 Troponin I 0.209 ng/mL (0.000-0.056) Pro-B-Type Natriuretic Peptide 830 pg/mL (0-125) Total Protein 6.6 G/DL (6.4-8.2) Albumin 2.2 G/DL (3.4-5.0) Globulin 4.4 g/dL Albumin/Globulin Ratio 0.5 (1.0-2.7) Lipase 64 U/L (73-393) Arterial Blood pH 7.480 (7.350-7.450) Arterial Blood Partial Pressure CO2 43.5 mmHg (35.0-45.0) Arterial Blood Partial Pressure O2 61.4 mmHg (75.0-100.0) Arterial Blood HCO3 31.8 mmol/L (22.0-26.0) Arterial Blood Oxygen Saturation 91.1 % (95-100) Arterial Blood Base Excess 7.5 (-2-2) Martell Test Positive Urine Color Pale yellow Urine Appearance Slightly cloudy Urine pH 5 (4.5-8.0) Urine Specific [place] 1.020 (1.005-1.035) Urine Protein 2+ (NEGATIVE) Urine Glucose (UA) 3+ (NEGATIVE) Urine Ketones 2+ (NEGATIVE) Urine Blood 5+ (NEGATIVE) Urine Nitrite Positive (NEGATIVE) Urine Bilirubin Negative (NEGATIVE) Urine Urobilinogen Normal MG/DL (0.0-1.0) Urine Leukocyte Esterase 3+ (NEGATIVE) Urine RBC 10-15 /HPF (0 - 0) Urine WBC 30-40 /HPF (0 - 0) Urine Squamous Epithelial Cells Occasional /LPF Urine Bacteria Few /HPF (NONE) Test 10/10/18 20:00 10/10/18 22:25 10/11/18 04:40 Lactic Acid Level 2.30 mmol/L (0.4-2.0) 1.60 mmol/L (0.66-2.22) White Blood Count 3.0 K/UL (4.8-10.8) Red Blood Count 3.40 M/UL (4.70-6.10) Hemoglobin 10.8 G/DL (14.2-18.0) Hematocrit 31.1 % (42.0-52.0) Mean Corpuscular Volume 92 FL (80-99) Mean Corpuscular Hemoglobin 31.7 PG (27.0-31.0) Mean Corpuscular Hemoglobin Concent 34.6 G/DL (32.0-36.0) Red Cell Distribution Width 12.9 % (11.6-14.8) Platelet Count 95 K/UL (150-450) Mean Platelet Volume 6.1 FL (6.5-10.1) Neutrophils (%) (Auto) % (45.0-75.0) Lymphocytes (%) (Auto) % (20.0-45.0) Monocytes (%) (Auto) % (1.0-10.0) Eosinophils (%) (Auto) % (0.0-3.0) Basophils (%) (Auto) % (0.0-2.0) Sodium Level 137 MMOL/L (136-145) Potassium Level 3.6 MMOL/L (3.5-5.1) Chloride Level 100 MMOL/L (98-107) Carbon Dioxide Level 35 MMOL/L (21-32) Anion Gap 2 mmol/L (5-15) Blood Urea Nitrogen 15 mg/dL (7-18) Creatinine 0.6 MG/DL (0.55-1.30) Estimat Glomerular Filtration Rate > 60 mL/min (>60) Glucose Level 219 MG/DL (74-106) Calcium Level 8.2 MG/DL (8.5-10.1) Phosphorus Level 2.8 MG/DL (2.5-4.9) Albumin 1.7 G/DL (3.4-5.0) Rhythm Strip Diag. Results EP Interpretation: yes Rate: 88 Rhythm: NSR, no PVC's, no ectopy Chest X-Ray Diagnostic Results Chest X-Ray Diagnostic Results : Chest X-Ray Ordered: Yes # of Views/Limited/Complete: 1 View Indication: Shortness of Breath Interpretation: no effusion, no pneumothorax, other - Left lower lobe infiltrate Impression: Other - Left lower lobe infiltrate Electronically Signed by: Senthil Deras, DO CT/MRI/US Diagnostic Results CT/MRI/US Diagnostic Results : Impression CT head no acute disease Last Vital Signs Date Time Temp Pulse Resp B/P (MAP) Pulse Ox O2 Delivery O2 Flow Rate FiO2 10/10/18 11:50 99.2 113 23 112/71 100 Venturi Mask 14.0 55 Status: improved Disposition: ADMITTED INPATIENT Condition: Serious Referrals: Camacho Braun MD (PCP) Senthil Deras DO Oct 10, 2018 12:42
[2018-10-10 13:08] LABS: APPEARANCE,URINE SLIGHTLY CLOUDY; BILIRUBIN, URINE NEGATIVE (NEGATIVE); COLOR,URINE PALE YELLOW; GLUCOSE, URINE (UA) 3+ (NEGATIVE); KETONES,URINE 2+ (NEGATIVE); LEUKOCYTE ESTERASE ,URINE 3+ (NEGATIVE); NITRITE,URINE POSITIVE (NEGATIVE); PH,URINE 5 (4.5-8.0); PROTEIN,URINE 2+ (NEGATIVE); UROBILINOGEN,URINE NORMAL MG/DL (0.0-1.0)
[2018-10-10] MEDS ORDERED: Albuterol/Ipratropium 3ml neb HHN PRN (13:15)
[2018-10-10] MEDS ORDERED: Promethazine/Codeine 5ml UD ORAL PRN (13:15)
[2018-10-10] MEDS ORDERED: LORazepam Inj 2mg/ml 1ml IV PRN (13:15)
[2018-10-10] MEDS ORDERED: Miralax 17gm pkt ORAL PRN (13:15)
[2018-10-10] MEDS ORDERED: Morphine Sulfate 4mg/ml Inj (IV USE ONLY) IVP PRN (13:15)
[2018-10-10] MEDS ORDERED: Vancomycin 1.25gm Premix IVPB ONE (14:30)
--- NOTE | 2018-10-10 16:23 | Consultation ---
History of Present Illness General Date patient seen: Oct 10, 2018 Chief Complaint: Altered Level of Consciousness Referring physician: Dr. Camacho Braun Present Illness HPI Pollo Crystal is a right hand dominant 68-year-old male with a prior history of both primary brain cancer, left frontal oligodendroglioma, grade II s /p resection as well as left frontal stroke with a baseline right hemiplegia who [place] [facility] of altered mental status. He is currently a resident of [facility] and was previously admitted to [place] in September 2018 for episode of AMS and ddx of psychosis vs Encephalopathy. His CT Brain w/o contrast was abnormal for evidence of left temporal craniotomy as well as diffuse encephalomalacia At the time of his initial assessment he is accompanied by family member and eyes opening to voice. Allergies: Coded Allergies: No Known Allergies (Unverified , 09/27/18) Medication History Scheduled Apixaban (Eliquis), 5 MG PO BID, (Reported) Atorvastatin (Lipitor), 80 MG ORAL BEDTIME, (Reported) Carvedilol (Coreg), 25 MG ORAL EVERY 12 HOURS Carvedilol (Coreg), 12.5 MG ORAL EVERY 12 HOURS, (Reported) Cholecalciferol (Vitamin D3)* (Vitamin D*), 50,000 UNITS ORAL QWEEK, (Reported) Cholecalciferol (Vitamin D3)* (Vitamin D*), 50,000 UNITS ORAL ONCE A WEEK, ( Reported) Dexamethasone (Dexamethasone), 4 MG ORAL DAILY Dexamethasone* (Decadron*), 4 MG PO BID, (Reported) Docusate Sodium (Docusate Sodium), 100 MG ORAL DAILY, (Reported) Finasteride (Finasteride), 5 MG ORAL DAILY@2100 Lacosamide (Vimpat), 200 MG PO BID, (Reported) Lamotrigine* (Lamictal*), 50 MG ORAL DAILY Losartan Potassium (Losartan Potassium), 25 MG ORAL DAILY, (Reported) Metformin Hcl (Glucophage), 1,000 MG ORAL BID, (Reported) Perampanel (Fycompa), 4 MG PO DAILY, (Reported) Polyethylene Glycol 3350* (Miralax*), 17 GM ORAL DAILY, (Reported) Polyethylene Glycol 3350* (Miralax*), 17 GM ORAL DAILY, (Reported) Quetiapine Fumarate* (Seroquel*), 25 MG ORAL Q12HR Ranitidine Hcl* (Zantac*), 150 MG ORAL DAILY, (Reported) Sitagliptin (Januvia), 50 MG ORAL DAILY Tamsulosin HCl (Flomax), 0.4 MG ORAL BEDTIME Scheduled PRN Acetaminophen* (Acetaminophen 325MG Tablet*), 650 MG ORAL Q6H PRN for For Pain, (Reported) Miscellaneous Medications Divalproex Sodium (Depakote), 500 MG PO, (Reported) Divalproex Sodium (Divalproex Sodium), 1,500 MG PO, (Reported) Divalproex Sodium (Depakote), 1,500 MG PO, (Reported) Insulin Lispro (Humalog), 0 SUBQ, (Reported) Temozolomide (Temozolomide), 5 MG PO, (Reported) Patient History Healthcare decision maker Resuscitation status Advanced Directive on File Physical Exam General Appearance: WD/WN, no apparent distress, lethargic Lines, tubes and drains: peripheral HEENT: normocephalic, atraumatic, anicteric, mucous membranes moist, PERRL, EOMI, pharynx normal, supple, no JVD Neck: non-tender Respiratory/Chest: chest wall non-tender, lungs clear Cardiovascular/Chest: normal peripheral pulses, regular rhythm Extremities: trace edema Skin Exam: normal pigmentation, warm/dry Neurologic: no pronator, abnormal CN, motor weakness, sensory deficit, unresponsiveness, aphasia Physical Exam Narrative At present he is deeply obtunded, aphasic, and not opening eyes except to noxious stimuli. He is localizing to noxious stimuli with LUE/LLE and both appear antigravity. Right side appears both plegic, but does move, also appears to have dense sensory deficit. Pupils are PERRL bilaterally with both 1+ and sluggish. No visible facial asymmetry at this time. Aphasic. No muscle rigidity, spasticity or tremulousness. Some mild edema in RUE but no erythema/ pitting. Last 24 Hour Vital Signs Date Time Temp Pulse Resp B/P (MAP) Pulse Ox O2 Delivery O2 Flow Rate FiO2 10/10/18 13:14 99.2 113 23 112/71 100 Venturi Mask 14.0 55 10/10/18 11:50 99.2 113 23 112/71 100 Venturi Mask 14.0 55 10/10/18 11:16 209 28 Non-Rebreather 15.0 10/10/18 11:16 209 28 111/72 96 Non-Rebreather 15.0 10/10/18 10:37 97.0 118 14 103/69 96 Non-Rebreather 15.0 Laboratory Tests Test 10/10/18 11:00 10/10/18 11:05 10/10/18 12:17 10/10/18 12:30 White Blood Count 3.7 K/UL (4.8-10.8) L Red Blood Count 4.42 M/UL (4.70-6.10) L Hemoglobin 13.7 G/DL (14.2-18.0) L Hematocrit 40.2 % (42.0-52.0) L Mean Corpuscular Volume 91 FL (80-99) Mean Corpuscular Hemoglobin 31.1 PG (27.0-31.0) H Mean Corpuscular Hemoglobin Concent 34.2 G/DL (32.0-36.0) Red Cell Distribution Width 13.3 % (11.6-14.8) Platelet Count 162 K/UL (150-450) Mean Platelet Volume 6.0 FL (6.5-10.1) L Neutrophils (%) (Auto) % (45.0-75.0) Lymphocytes (%) (Auto) % (20.0-45.0) Monocytes (%) (Auto) % (1.0-10.0) Eosinophils (%) (Auto) % (0.0-3.0) Basophils (%) (Auto) % (0.0-2.0) Differential Total Cells Counted 100 Neutrophils % (Manual) 76 % (45-75) H Lymphocytes % (Manual) 5 % (20-45) L Monocytes % (Manual) 2 % (1-10) Eosinophils % (Manual) 0 % (0-3) Basophils % (Manual) 0 % (0-2) Band Neutrophils 17 % (0-8) H Platelet Estimate Adequate Platelet Morphology Normal Red Blood Cell Morphology Normal Sodium Level 132 MMOL/L (136-145) L Potassium Level 4.4 MMOL/L (3.5-5.1) Chloride Level 97 MMOL/L (98-107) L Carbon Dioxide Level 33 MMOL/L (21-32) H Anion Gap 2 mmol/L (5-15) L Blood Urea Nitrogen 35 mg/dL (7-18) H Creatinine 0.9 MG/DL (0.55-1.30) Estimat Glomerular Filtration Rate > 60 mL/min (>60) Glucose Level 213 MG/DL (74-106) H Lactic Acid Level 2.20 mmol/L (0.4-2.0) H 3.60 mmol/L (0.66-2.22) H Calcium Level 9.1 MG/DL (8.5-10.1) Total Bilirubin 0.6 MG/DL (0.2-1.0) Aspartate Amino Transf (AST/SGOT) 33 U/L (15-37) Alanine Aminotransferase (ALT/SGPT) 27 U/L (12-78) Alkaline Phosphatase 51 U/L (46-116) Total Creatine Kinase 530 U/L (26-308) H Creatine Kinase MB 2.5 NG/ML (0.0-3.6) Creatine Kinase MB Relative Index 0.4 Troponin I 0.209 ng/mL (0.000-0.056) Pro-B-Type Natriuretic Peptide 830 pg/mL (0-125) H Total Protein 6.6 G/DL (6.4-8.2) Albumin 2.2 G/DL (3.4-5.0) L Globulin 4.4 g/dL Albumin/Globulin Ratio 0.5 (1.0-2.7) L Lipase 64 U/L (73-393) L Arterial Blood pH 7.480 (7.350-7.450) Arterial Blood Partial Pressure CO2 43.5 mmHg (35.0-45.0) Arterial Blood Partial Pressure O2 61.4 mmHg (75.0-100.0) L Arterial Blood HCO3 31.8 mmol/L (22.0-26.0) H Arterial Blood Oxygen Saturation 91.1 % (95-100) L Arterial Blood Base Excess 7.5 (-2-2) H Martell Test Positive Urine Color Pale yellow Urine Appearance Slightly cloudy Urine pH 5 (4.5-8.0) Urine Specific [place] 1.020 (1.005-1.035) Urine Protein 2+ (NEGATIVE) H Urine Glucose (UA) 3+ (NEGATIVE) H Urine Ketones 2+ (NEGATIVE) H Urine Blood 5+ (NEGATIVE) H Urine Nitrite Positive (NEGATIVE) H Urine Bilirubin Negative (NEGATIVE) Urine Urobilinogen Normal MG/DL (0.0-1.0) Urine Leukocyte Esterase 3+ (NEGATIVE) H Urine RBC 10-15 /HPF (0 - 0) H Urine WBC 30-40 /HPF (0 - 0) H Urine Squamous Epithelial Cells Occasional /LPF Urine Bacteria Few /HPF (NONE) Height (Feet): 5 Height (Inches): 7.00 Weight (Pounds): 150 Medications Current Medications Medications (Trade) Dose Ordered Sig/Chace Route PRN Reason Start Time Stop Time Status Last Admin Dose Admin Acetaminophen (Tylenol) 650 mg Q4H PRN ORAL T>100.5 10/10/18 13:15 11/09/18 13:14 Albuterol/ Ipratropium (Albuterol/ Ipratropium) 3 ml Q4H PRN HHN Shortness of Breath 10/10/18 13:15 10/15/18 13:14 Carvedilol (Coreg) 12.5 mg EVERY 12 HOURS ORAL 10/10/18 21:00 11/09/18 20:59 Cefepime HCl 2 gm/ Dextrose 110 ml @ 220 mls/hr EVERY 12 HOURS IV 10/10/18 18:00 10/17/18 17:59 Dexamethasone (Decadron) 4 mg BID ORAL 10/10/18 18:00 11/09/18 17:59 Dextrose (Dextrose 50%) 25 ml Q30M PRN IV Hypoglycemia 10/10/18 13:15 11/09/18 13:14 Dextrose (Dextrose 50%) 50 ml Q30M PRN IV Hypoglycemia 10/10/18 13:15 11/09/18 13:14 Finasteride (Proscar) 5 mg DAILY@2100 ORAL 10/10/18 21:00 11/09/18 20:59 Heparin Sodium (Porcine) (Heparin 5000 units/ml) 5,000 units EVERY 12 HOURS SUBQ 10/10/18 21:00 11/09/18 20:59 Insulin Aspart (NovoLOG) BEFORE MEALS AND HS SUBQ 10/10/18 16:30 11/09/18 16:29 Lamotrigine (LaMICtal) 50 mg DAILY ORAL 10/11/18 09:00 11/10/18 08:59 Lorazepam (Ativan 2mg/ml 1ml) 2 mg Q2H PRN IV For Anxiety 10/10/18 13:15 10/17/18 13:14 Morphine Sulfate (Morphine Sulfate) 4 mg Q4H PRN IVP Severe Pain (Pain Scale 7-10) 10/10/18 13:15 10/17/18 13:14 Ondansetron HCl (Zofran) 4 mg Q6H PRN IVP Nausea & Vomiting 10/10/18 13:15 11/09/18 13:14 Polyethylene Glycol (Miralax) 17 gm DAILYPRN PRN ORAL Constipation 10/10/18 13:15 11/09/18 13:14 Promethazine HCl/ Codeine (Phenergan with Codeine) 5 ml Q4H PRN ORAL For Cough 10/10/18 13:15 11/09/18 13:14 Quetiapine Fumarate (SEROquel) 25 mg Q12HR ORAL 10/10/18 21:00 11/09/18 20:59 Sitagliptin Phosphate (Januvia) 50 mg ACBREAKFAST ORAL 10/11/18 06:30 11/10/18 06:29 Sodium Chloride 1,000 ml @ 50 mls/hr Q20H IV 10/10/18 14:00 11/09/18 13:59 10/10/18 14:33 Tamsulosin HCl (Flomax) 0.4 mg BEDTIME ORAL 10/10/18 21:00 11/09/18 20:59 Valproic Acid (Depakene) 500 mg Q6HR ORAL 10/10/18 18:00 11/09/18 17:59 Vancomycin HCl (Vanco rx to dose) 1 ea DAILY PRN MISC . 10/10/18 13:30 11/09/18 13:29 Vancomycin HCl 1 gm/Dextrose 275 ml @ 183.3 mls/ hr Q12HR@0200,1400 IVPB 10/11/18 02:00 10/16/18 01:59 Assessment/Plan Problem List: (1) Acute encephalopathy ICD Codes: G93.40 - Encephalopathy, unspecified SNOMED: 74804379, 085323564 (2) Deep tissue injury ICD Codes: T14.8XXA - Other injury of unspecified body region, initial encounter SNOMED: 263484516 (3) acute toxic encephalopathy Assessment & Plan: Frequent stimulation of patient Q 4 hour neuro obs (4) Altered level of consciousness Assessment & Plan: PT/ OT Eval Na 135-145 OOB to chair as soon as able. Abx as per ID team Maintain normothermia with Tylenol / coolling blanket as need. MRI Brain w/wo contrast EEG as outpatient ICD Codes: R40.4 - Transient alteration of awareness SNOMED: 4736546 (5) Sepsis Assessment & Plan: Treat with IV abx as per ID ICD Codes: A41.9 - Sepsis, unspecified organism SNOMED: 15569460 (6) Brain tumor Assessment & Plan: MRI Brain w/ Contrast for investigation of recurrent primary tumor . CT taken in September did not demonstrate mass effect but also not the most sensitive test for detecting intraparenchymal masses. ICD Codes: D49.6 - Neoplasm of unspecified behavior of brain SNOMED: 204230486 (7) History of CVA (cerebrovascular accident) Assessment & Plan: Dense right plegia at baseline, no rigidity or spasticity noted Localizing x 2 on left side to noxious stimuli but with dense sensory deficit on right side and limited response, although movement of right side is visible. MRI Brain w/wo for investigation of new CVA vs Mass ICD Codes: Z86.73 - Personal history of transient ischemic attack (TIA), and cerebral infarction without residual deficits SNOMED: 844977518 (8) Diabetes mellitus Assessment & Plan: Normoglycemia with ISS ICD Codes: E11.9 - Type 2 diabetes mellitus without complications SNOMED: 19421191 (9) Hypertension Assessment & Plan: Maintain SBP<140 with antiHTN meds. ICD Codes: I10 - Essential (primary) hypertension SNOMED: 49974825 Vidya Sun N.P. Oct 10, 2018 16:23
[2018-10-10] MEDS ORDERED: Gadavist 7.5mMol/7.5ml vial IV PRN (16:30)
[2018-10-10] MEDS: NovoLOG Insulin Flexpen SUBQ SCH ×2 (16:30→21:23)
--- NOTE | 2018-10-10 17:13 | Consultation ---
History of Present Illness General Date patient seen: Oct 10, 2018 Chief Complaint: Altered Level of Consciousness Present Illness HPI 68 year old male senior care resident with multiple medical comorbidities who is well known to me from recent admission presented with altered mental status and change in condition. Admitted for care and management. On admission noted to have acutely worsened sacral decubitus ulcer requiring care. surgery called to evaluate and assist with care. patient seen, chart reviewed, patient examined. patient unable to cooperate with exam given medical condition Allergies: Coded Allergies: No Known Allergies (Unverified , 09/27/18) Medication History Scheduled Apixaban (Eliquis), 5 MG PO BID, (Reported) Atorvastatin (Lipitor), 80 MG ORAL BEDTIME, (Reported) Carvedilol (Coreg), 25 MG ORAL EVERY 12 HOURS Carvedilol (Coreg), 12.5 MG ORAL EVERY 12 HOURS, (Reported) Cholecalciferol (Vitamin D3)* (Vitamin D*), 50,000 UNITS ORAL QWEEK, (Reported) Cholecalciferol (Vitamin D3)* (Vitamin D*), 50,000 UNITS ORAL ONCE A WEEK, ( Reported) Dexamethasone (Dexamethasone), 4 MG ORAL DAILY Dexamethasone* (Decadron*), 4 MG PO BID, (Reported) Docusate Sodium (Docusate Sodium), 100 MG ORAL DAILY, (Reported) Finasteride (Finasteride), 5 MG ORAL DAILY@2100 Lacosamide (Vimpat), 200 MG PO BID, (Reported) Lamotrigine* (Lamictal*), 50 MG ORAL DAILY Losartan Potassium (Losartan Potassium), 25 MG ORAL DAILY, (Reported) Metformin Hcl (Glucophage), 1,000 MG ORAL BID, (Reported) Perampanel (Fycompa), 4 MG PO DAILY, (Reported) Polyethylene Glycol 3350* (Miralax*), 17 GM ORAL DAILY, (Reported) Polyethylene Glycol 3350* (Miralax*), 17 GM ORAL DAILY, (Reported) Quetiapine Fumarate* (Seroquel*), 25 MG ORAL Q12HR Ranitidine Hcl* (Zantac*), 150 MG ORAL DAILY, (Reported) Sitagliptin (Januvia), 50 MG ORAL DAILY Tamsulosin HCl (Flomax), 0.4 MG ORAL BEDTIME Scheduled PRN Acetaminophen* (Acetaminophen 325MG Tablet*), 650 MG ORAL Q6H PRN for For Pain, (Reported) Miscellaneous Medications Divalproex Sodium (Depakote), 500 MG PO, (Reported) Divalproex Sodium (Divalproex Sodium), 1,500 MG PO, (Reported) Divalproex Sodium (Depakote), 1,500 MG PO, (Reported) Insulin Lispro (Humalog), 0 SUBQ, (Reported) Temozolomide (Temozolomide), 5 MG PO, (Reported) Patient History Limited by: medical condition History Provided By: Medical Record, PMD Healthcare decision maker Resuscitation status Advanced Directive on File Review of Systems ROS Narrative unable to obtain given medical condition Physical Exam General Appearance: no apparent distress Lines, tubes and drains: peripheral HEENT: mucous membranes moist Neck: normal inspection Respiratory/Chest: no respiratory distress, no accessory muscle use Cardiovascular/Chest: regular rhythm Abdomen: soft, no organomegaly, no mass Extremities: no cyanosis, other Skin Exam: warm/dry, other Last 24 Hour Vital Signs Date Time Temp Pulse Resp B/P (MAP) Pulse Ox O2 Delivery O2 Flow Rate FiO2 10/10/18 16:00 120 10/10/18 13:27 112 10/10/18 13:14 99.2 113 23 112/71 100 Venturi Mask 14.0 55 10/10/18 11:50 99.2 113 23 112/71 100 Venturi Mask 14.0 55 10/10/18 11:16 209 28 Non-Rebreather 15.0 10/10/18 11:16 209 28 111/72 96 Non-Rebreather 15.0 10/10/18 10:37 97.0 118 14 103/69 96 Non-Rebreather 15.0 Laboratory Tests Test 10/10/18 11:00 10/10/18 11:05 10/10/18 12:17 10/10/18 12:30 White Blood Count 3.7 K/UL (4.8-10.8) L Red Blood Count 4.42 M/UL (4.70-6.10) L Hemoglobin 13.7 G/DL (14.2-18.0) L Hematocrit 40.2 % (42.0-52.0) L Mean Corpuscular Volume 91 FL (80-99) Mean Corpuscular Hemoglobin 31.1 PG (27.0-31.0) H Mean Corpuscular Hemoglobin Concent 34.2 G/DL (32.0-36.0) Red Cell Distribution Width 13.3 % (11.6-14.8) Platelet Count 162 K/UL (150-450) Mean Platelet Volume 6.0 FL (6.5-10.1) L Neutrophils (%) (Auto) % (45.0-75.0) Lymphocytes (%) (Auto) % (20.0-45.0) Monocytes (%) (Auto) % (1.0-10.0) Eosinophils (%) (Auto) % (0.0-3.0) Basophils (%) (Auto) % (0.0-2.0) Differential Total Cells Counted 100 Neutrophils % (Manual) 76 % (45-75) H Lymphocytes % (Manual) 5 % (20-45) L Monocytes % (Manual) 2 % (1-10) Eosinophils % (Manual) 0 % (0-3) Basophils % (Manual) 0 % (0-2) Band Neutrophils 17 % (0-8) H Platelet Estimate Adequate Platelet Morphology Normal Red Blood Cell Morphology Normal Sodium Level 132 MMOL/L (136-145) L Potassium Level 4.4 MMOL/L (3.5-5.1) Chloride Level 97 MMOL/L (98-107) L Carbon Dioxide Level 33 MMOL/L (21-32) H Anion Gap 2 mmol/L (5-15) L Blood Urea Nitrogen 35 mg/dL (7-18) H Creatinine 0.9 MG/DL (0.55-1.30) Estimat Glomerular Filtration Rate > 60 mL/min (>60) Glucose Level 213 MG/DL (74-106) H Lactic Acid Level 2.20 mmol/L (0.4-2.0) H 3.60 mmol/L (0.66-2.22) H Calcium Level 9.1 MG/DL (8.5-10.1) Total Bilirubin 0.6 MG/DL (0.2-1.0) Aspartate Amino Transf (AST/SGOT) 33 U/L (15-37) Alanine Aminotransferase (ALT/SGPT) 27 U/L (12-78) Alkaline Phosphatase 51 U/L (46-116) Total Creatine Kinase 530 U/L (26-308) H Creatine Kinase MB 2.5 NG/ML (0.0-3.6) Creatine Kinase MB Relative Index 0.4 Troponin I 0.209 ng/mL (0.000-0.056) Pro-B-Type Natriuretic Peptide 830 pg/mL (0-125) H Total Protein 6.6 G/DL (6.4-8.2) Albumin 2.2 G/DL (3.4-5.0) L Globulin 4.4 g/dL Albumin/Globulin Ratio 0.5 (1.0-2.7) L Lipase 64 U/L (73-393) L Arterial Blood pH 7.480 (7.350-7.450) Arterial Blood Partial Pressure CO2 43.5 mmHg (35.0-45.0) Arterial Blood Partial Pressure O2 61.4 mmHg (75.0-100.0) L Arterial Blood HCO3 31.8 mmol/L (22.0-26.0) H Arterial Blood Oxygen Saturation 91.1 % (95-100) L Arterial Blood Base Excess 7.5 (-2-2) H Martell Test Positive Urine Color Pale yellow Urine Appearance Slightly cloudy Urine pH 5 (4.5-8.0) Urine Specific [place] 1.020 (1.005-1.035) Urine Protein 2+ (NEGATIVE) H Urine Glucose (UA) 3+ (NEGATIVE) H Urine Ketones 2+ (NEGATIVE) H Urine Blood 5+ (NEGATIVE) H Urine Nitrite Positive (NEGATIVE) H Urine Bilirubin Negative (NEGATIVE) Urine Urobilinogen Normal MG/DL (0.0-1.0) Urine Leukocyte Esterase 3+ (NEGATIVE) H Urine RBC 10-15 /HPF (0 - 0) H Urine WBC 30-40 /HPF (0 - 0) H Urine Squamous Epithelial Cells Occasional /LPF Urine Bacteria Few /HPF (NONE) Height (Feet): 5 Height (Inches): 7.00 Weight (Pounds): 150 Medications Current Medications Medications (Trade) Dose Ordered Sig/Chace Route PRN Reason Start Time Stop Time Status Last Admin Dose Admin Acetaminophen (Tylenol) 650 mg Q4H PRN ORAL T>100.5 10/10/18 13:15 11/09/18 13:14 Albuterol/ Ipratropium (Albuterol/ Ipratropium) 3 ml Q4H PRN HHN Shortness of Breath 10/10/18 13:15 10/15/18 13:14 Carvedilol (Coreg) 12.5 mg EVERY 12 HOURS ORAL 10/10/18 21:00 11/09/18 20:59 Cefepime HCl 2 gm/ Dextrose 110 ml @ 220 mls/hr EVERY 12 HOURS IV 10/10/18 18:00 10/17/18 17:59 Dexamethasone (Decadron) 4 mg BID ORAL 10/10/18 18:00 11/09/18 17:59 Dextrose (Dextrose 50%) 25 ml Q30M PRN IV Hypoglycemia 10/10/18 13:15 11/09/18 13:14 Dextrose (Dextrose 50%) 50 ml Q30M PRN IV Hypoglycemia 10/10/18 13:15 11/09/18 13:14 Finasteride (Proscar) 5 mg DAILY@2100 ORAL 10/10/18 21:00 11/09/18 20:59 Gadobutrol (Gadavist) 7.5 mmol NOW PRN IV Radiology Procedure 10/10/18 16:30 10/14/18 16:24 Heparin Sodium (Porcine) (Heparin 5000 units/ml) 5,000 units EVERY 12 HOURS SUBQ 10/10/18 21:00 11/09/18 20:59 Insulin Aspart (NovoLOG) BEFORE MEALS AND HS SUBQ 10/10/18 16:30 11/09/18 16:29 Lamotrigine (LaMICtal) 50 mg DAILY ORAL 10/11/18 09:00 11/10/18 08:59 Lorazepam (Ativan 2mg/ml 1ml) 2 mg Q2H PRN IV For Anxiety 10/10/18 13:15 10/17/18 13:14 Morphine Sulfate (Morphine Sulfate) 4 mg Q4H PRN IVP Severe Pain (Pain Scale 7-10) 10/10/18 13:15 10/17/18 13:14 Ondansetron HCl (Zofran) 4 mg Q6H PRN IVP Nausea & Vomiting 10/10/18 13:15 11/09/18 13:14 Polyethylene Glycol (Miralax) 17 gm DAILYPRN PRN ORAL Constipation 10/10/18 13:15 11/09/18 13:14 Promethazine HCl/ Codeine (Phenergan with Codeine) 5 ml Q4H PRN ORAL For Cough 10/10/18 13:15 11/09/18 13:14 Quetiapine Fumarate (SEROquel) 25 mg Q12HR ORAL 10/10/18 21:00 11/09/18 20:59 Sitagliptin Phosphate (Januvia) 50 mg ACBREAKFAST ORAL 10/11/18 06:30 11/10/18 06:29 Sodium Chloride 1,000 ml @ 50 mls/hr Q20H IV 10/10/18 14:00 11/09/18 13:59 10/10/18 14:33 Tamsulosin HCl (Flomax) 0.4 mg BEDTIME ORAL 10/10/18 21:00 11/09/18 20:59 Valproic Acid (Depakene) 500 mg Q6HR ORAL 10/10/18 18:00 11/09/18 17:59 Vancomycin HCl (Vanco rx to dose) 1 ea DAILY PRN MISC . 10/10/18 13:30 11/09/18 13:29 Vancomycin HCl 1 gm/Dextrose 275 ml @ 183.3 mls/ hr Q12HR@0200,1400 IVPB 10/11/18 02:00 10/16/18 01:59 Assessment/Plan Problem List: (1) Acute encephalopathy ICD Codes: G93.40 - Encephalopathy, unspecified SNOMED: 64680649, 421550464 (2) Sacral decubitus ulcer Assessment & Plan: Pt presented on admission with worsening sacral decubitus ulcer. Initially only a DTPI which has since opened and evolved into unstageable necrotic sacral decubitus ulcer. seems to likely be down to coccyx with periwound necrosis of the dermal aspecs and surrounding deep tissue injury. wound fluctuant,purple with maroon borders. no significant drainage or signs of active infection. approximately 12 x 9 cm now. Non-blanchable erythema without induration periwound. Bilat elbows and bilat heels are pink and blanchable.No other skin concerns noted. Tx.Plan: Cleanse sacral wound with Saline.Apply Triad Paste to periwound, apply hydrogel gauze to open portions of wound and Cover with Optifoam drsg. Change day and prn. Apply Cavilon Skin Barrier to both heels. Cover each heel with Optifoam drsg. Change every 7 days and prn. APM/ADRIAN Mattress overlay. Reposition at least every 2 hours or as tolerated. Off-load heels with pillow. Will discuss findings with patients family. recommend excisional debridement of wound for better evaluation and to allow for healing in such early stage. thank you ICD Codes: L89.159 - Pressure ulcer of sacral region, unspecified stage SNOMED: 404311311 (3) Deep tissue injury ICD Codes: T14.8XXA - Other injury of unspecified body region, initial encounter SNOMED: 425580899 (4) Valproic acid toxicity ICD Codes: T42.6X1A - Poisoning by other antiepileptic and sedative-hypnotic drugs, accidental (unintentional), initial encounter SNOMED: 180927414 (5) acute toxic encephalopathy (6) Sepsis Assessment & Plan: unlikely related to wound as not acutely infected cont with Rx as ordered will follow with recs trend labs thank you ICD Codes: A41.9 - Sepsis, unspecified organism SNOMED: 66371068 (7) Diabetes mellitus ICD Codes: E11.9 - Type 2 diabetes mellitus without complications SNOMED: 46942059 (8) Hypertension ICD Codes: I10 - Essential (primary) hypertension SNOMED: 77344011 Harry Rivas Oct 10, 2018 17:13
[2018-10-10] MEDS: Cefepime HCl 2 GM in D5W 110 ML IV SCH (18:56)
[2018-10-10 20:00] VITALS: BP 138/78
--- NOTE | 2018-10-10 20:30 | History and Physical Report ---
DATE OF ADMISSION: 10/10/2018 CHIEF COMPLAINT: The patient is a 68-year-old male who presents with complaint of altered mental status. The patient is a resident of [facility]. The patient was admitted to [facility] from 09/27/2018 to 10/01/2018. Please see history and physical and discharge summary dictated at that time. The patient presented to [facility]. The patient was sent to [facility] emergency room for altered mental status. The patient was evaluated in the emergency room. The patient was found to have acute psychosis versus encephalopathy. The patient was admitted for altered mental status. REVIEW OF SYSTEMS: Unable to assess secondary to the patient's mental status. PAST MEDICAL HISTORY: Significant for: 1. Oligodendroglioma grade 2, brain cancer. 2. Seizure disorder. 3. Diabetes type 2. 4. History of cerebrovascular accident. 5. Right hemiparesis. 6. Hypertension. 7. Coronary artery disease. 8. Expressive aphasia. PAST SURGICAL HISTORY: Significant for: 1. Craniotomy secondary to brain tumor as above. 2. Appendectomy. 3. Tonsillectomy. CURRENT MEDICATIONS: 1. Tylenol 650 mg one tablet p.o. q.6 hours p.r.n. 2. Apixaban 5 mg p.o. twice daily. 3. Lipitor 80 mg p.o. at bedtime. 4. Coreg 25 mg p.o. twice daily. 5. Vitamin D 50,000 units by mouth weekly. 6. Dexamethasone 4 mg p.o. daily. 7. Decadron mg p.o. twice daily. 8. Depakote 500 mg p.o. twice daily. 9. Finasteride 5 mg p.o. daily. 10. Lispro sliding scale. 11. Vimpat 200 mg p.o. twice daily. 12. Lamictal 50 mg p.o. daily. 13. Losartan 25 mg p.o. daily. 14. Glucophage 1000 mg p.o. twice daily. 15. Perampanel 4 mg p.o. daily. 16. Seroquel 25 mg p.o. twice daily. 17. Zantac 150 mg p.o. daily. 18. Januvia 50 mg p.o. daily. 19. Flomax 0.4 mg p.o. at bedtime. 20. Temozolomide 5 mg p.o. daily. ALLERGIES: No known drug allergies. SOCIAL HISTORY: The patient is . Lives at [facility], as above. The patient denies tobacco or alcohol use. PHYSICAL EXAMINATION: VITAL SIGNS: Temperature 97, respirations 14, pulse 118, blood pressure 103/59. GENERAL: The patient is well-developed and well-nourished male, in moderate respiratory distress. HEENT: Eyes, pupils are equal and responsive to light and accommodation. Extraocular movements are intact. NECK: Supple without lymphadenopathy. CHEST: Lungs are clear to auscultation bilaterally without wheezes or rales. CARDIOVASCULAR: Regular rhythm and rate. S1 and S2 normal without murmurs, rubs, or gallops. ABDOMEN: Soft, nontender, and nondistended. Positive bowel sounds. No evidence of hepatosplenomegaly. Currently, no rebound or guarding noted. EXTREMITIES: Negative for clubbing, cyanosis, or edema. RECTAL/GENITAL: Not performed. NEUROLOGICAL: Cranial nerves II through XII are grossly intact without focal deficits LABORATORY STUDIES: WBC 3.7, hemoglobin 13.7, hematocrit 40.2, platelets 162,000. Sodium 132, potassium 4.4, chloride 97, CO2 33, BUN 35, creatinine 0.9, glucose 213. Troponin elevated at 0.209. BNP elevated 830. Urinalysis showed 2+ protein, 3+ glucose 2+ ketones, 5+ blood. Positive nitrite and 30 to 40 wbc's. ASSESSMENT: This is a 68-year-old male. 1. Altered mental status. 2. Urinary tract infection. 3. Brain cancer. 4. Seizure disorder. 5. Diabetes type 2. 6. History of cerebrovascular accident. 7. Right hemiparesis. 8. Hypertension. 9. Coronary artery disease. 10. Expressive aphasia. 11. Hypercholesterolemia. TREATMENT: 1. Altered mental status. This may be secondary to urinary tract infection. Urine culture is pending. The patient has been started empirically on vancomycin and cefepime. Await urine cultures. 2. Urinary tract infection as above. Urine culture is pending. The patient has been started empirically on vancomycin and cefepime. We will follow recommendations of Infectious Diseases. 3. Brain cancer. 4. Seizure disorder. Continue Depakote and Lamictal as above. 5. Diabetes type 2. A NovoLog sliding scale has been instituted. 6. History of cerebrovascular accident. 7. Right hemiparesis. 8. Expressive aphasia. 9. Hypertension. The patient is currently hypotensive. 10. History of coronary artery disease. Jesus Kidd M.D. DR: Ankur JOB#: [id number] CC:
[2018-10-10] MEDS: Carvedilol 12.5mg tab ORAL SCH (20:51)
[2018-10-10] MEDS: Valproic Acid 250mg/5ml Liquid ORAL SCH (20:51)
[2018-10-10] MEDS: Tamsulosin 0.4mg cap ORAL SCH (20:52)
[2018-10-10] MEDS: Heparin 5000 units/ml inj SUBQ SCH (20:53)
[2018-10-11] VITALS: BP 111/78
[2018-10-11] MEDS: Valproic Acid 250mg/5ml Liquid ORAL SCH ×5 (02:28→23:46)
[2018-10-11] MEDS: Vancomycin 1 GM in D5W 275 ML IVPB SCH ×2 (02:28→13:46)
[2018-10-11 04:00] VITALS: BP 150/66
[2018-10-11] MEDS: sitaGLIPtin 50mg tab ORAL SCH (05:49)
[2018-10-11] MEDS: NovoLOG Insulin Flexpen SUBQ SCH ×4 (05:50→20:40)
[2018-10-11 05:51] LABS: HEMATOCRIT 31.1 % (42.0-52.0); HEMOGLOBIN 10.8 G/DL (14.2-18.0); MEAN CORPUSCULAR VOLUME 92 FL (80-99); PLATELET COUNT 95 K/UL (150-450); RED CELL DISTRIBUTION WIDTH 12.9 % (11.6-14.8)
[2018-10-11 06:04] LABS: ALBUMIN 1.7 G/DL (3.4-5.0); ANION GAP 2 mmol/L (5-15); BLOOD UREA NITROGEN 15 mg/dL (7-18); CALCIUM 8.2 MG/DL (8.5-10.1); CARBON DIOXIDE 35 MMOL/L (21-32); CHLORIDE 100 MMOL/L (98-107); CREATININE 0.6 MG/DL (0.55-1.30); PHOSPHORUS 2.8 MG/DL (2.5-4.9); POTASSIUM 3.6 MMOL/L (3.5-5.1); SODIUM 137 MMOL/L (136-145)
[2018-10-11 08:00] VITALS: BP 108/59
[2018-10-11 08:22] LABS: HEMOGLOBIN 10.8 G/DL (14.2-18.0); MEAN CORPUSCULAR VOLUME 91 FL (80-99); PLATELET COUNT 102 K/UL (150-450); WHITE BLOOD COUNT 2.8 K/UL (4.8-10.8)
[2018-10-11 08:51] LABS: ANION GAP 5 mmol/L (5-15); BLOOD UREA NITROGEN 13 mg/dL (7-18); CALCIUM 8.3 MG/DL (8.5-10.1); CARBON DIOXIDE 32 MMOL/L (21-32); CHLORIDE 101 MMOL/L (98-107); CREATININE 0.6 MG/DL (0.55-1.30); POTASSIUM 3.4 MMOL/L (3.5-5.1); SODIUM 138 MMOL/L (136-145)
[2018-10-11] MEDS: Carvedilol 12.5mg tab ORAL SCH ×2 (08:55→20:41)
[2018-10-11] MEDS: Heparin 5000 units/ml inj SUBQ SCH ×3 (08:56→20:37)
[2018-10-11] MEDS: Cefepime HCl 2 GM in D5W 110 ML IV SCH ×2 (08:58→20:37)
--- NOTE | 2018-10-11 09:36 | Consultation ---
History of Present Illness General Date patient seen: Oct 11, 2018 Time patient seen: 09:34 Chief Complaint: Altered Level of Consciousness Referring physician: dr Braun Reason for Consultation: resp failure Present Illness HPI 68 years old male with past medical history of CVA with right-sided hemiparesis and expressive aphasia, brain tumor, diabetes mellitus, hypertension, BPH, was sent from the group home facility for altered mental status. Patient by himself was unable to provide any information. Upon evaluation in emergency department patient was tachycardic and hypoxic. He initially required 100% nonrebreathing mask. Laboratory workup revealed leukopenia with WBC 3.7. Hemoglobin 10.8 hematocrit 21.1. Lactic acid 2.3 Sodium 132, BUN 35, creatinine 0.9. Stable LFT. Troponin elevated 0.209. Pro BNP 830. EKG revealed sinus tachycardia, no acute ischemic changes. Albumin 2.2 Urinalysis revealed evidence of possible UTI Chest x-ray with questionable left lower lobe infiltrate. CT of the head revealed no acute intracranial pathology. Patient was admitted to direct observational unit for further management. Pulmonary consult was requested for management of respiratory status Allergies: Coded Allergies: No Known Allergies (Unverified , 09/27/18) Medication History Scheduled Apixaban (Eliquis), 5 MG PO BID, (Reported) Atorvastatin (Lipitor), 80 MG ORAL BEDTIME, (Reported) Carvedilol (Coreg), 25 MG ORAL EVERY 12 HOURS Carvedilol (Coreg), 12.5 MG ORAL EVERY 12 HOURS, (Reported) Cholecalciferol (Vitamin D3)* (Vitamin D*), 50,000 UNITS ORAL QWEEK, (Reported) Cholecalciferol (Vitamin D3)* (Vitamin D*), 50,000 UNITS ORAL ONCE A WEEK, ( Reported) Dexamethasone (Dexamethasone), 4 MG ORAL DAILY Dexamethasone* (Decadron*), 4 MG PO BID, (Reported) Docusate Sodium (Docusate Sodium), 100 MG ORAL DAILY, (Reported) Finasteride (Finasteride), 5 MG ORAL DAILY@2100 Lacosamide (Vimpat), 200 MG PO BID, (Reported) Lamotrigine* (Lamictal*), 50 MG ORAL DAILY Losartan Potassium (Losartan Potassium), 25 MG ORAL DAILY, (Reported) Metformin Hcl (Glucophage), 1,000 MG ORAL BID, (Reported) Perampanel (Fycompa), 4 MG PO DAILY, (Reported) Polyethylene Glycol 3350* (Miralax*), 17 GM ORAL DAILY, (Reported) Polyethylene Glycol 3350* (Miralax*), 17 GM ORAL DAILY, (Reported) Quetiapine Fumarate* (Seroquel*), 25 MG ORAL Q12HR Ranitidine Hcl* (Zantac*), 150 MG ORAL DAILY, (Reported) Sitagliptin (Januvia), 50 MG ORAL DAILY Tamsulosin HCl (Flomax), 0.4 MG ORAL BEDTIME Scheduled PRN Acetaminophen* (Acetaminophen 325MG Tablet*), 650 MG ORAL Q6H PRN for For Pain, (Reported) Miscellaneous Medications Divalproex Sodium (Depakote), 500 MG PO, (Reported) Divalproex Sodium (Divalproex Sodium), 1,500 MG PO, (Reported) Divalproex Sodium (Depakote), 1,500 MG PO, (Reported) Insulin Lispro (Humalog), 0 SUBQ, (Reported) Temozolomide (Temozolomide), 5 MG PO, (Reported) Patient History History Provided By: Medical Record Healthcare decision maker Resuscitation status Full Code Advanced Directive on File Past Medical/Surgical History Past Medical/Surgical History: (1) History of CVA (cerebrovascular accident) (2) Brain tumor (3) Diabetes mellitus (4) Hypertension Review of Systems ROS Narrative ROS unavailable due to maylin's ALOC Physical Exam General Appearance: no apparent distress, lethargic Lines, tubes and drains: peripheral HEENT: normocephalic, atraumatic, anicteric, other - O2 10 L via VM Neck: normal inspection - trachea midline Respiratory/Chest: lungs clear - with moderate air exchange , no respiratory distress, no accessory muscle use Cardiovascular/Chest: normal rate - SR on tele Abdomen: normal bowel sounds, non tender, soft Neurologic: abnormal gait - bedridden , other - bedridden, R hemiparesis Musculoskeletal: atrophy - BLE Last 24 Hour Vital Signs Date Time Temp Pulse Resp B/P (MAP) Pulse Ox O2 Delivery O2 Flow Rate FiO2 10/11/18 08:55 92 108/59 10/11/18 08:00 97.0 92 21 108/59 (75) 99 10/11/18 08:00 Venturi Mask 10.0 Venturi Mask 10.0 10/11/18 07:01 100 Venturi Mask 10.0 45 10/11/18 07:01 Venturi Mask 10.0 45 10/11/18 04:00 97.5 103 29 150/66 (94) 98 10/11/18 04:00 Venturi Mask 14.0 10/11/18 04:00 103 10/11/18 00:00 Venturi Mask 14.0 10/11/18 00:00 105 10/11/18 00:00 97.5 118 18 111/78 (89) 99 10/10/18 20:51 120 112/71 10/10/18 20:00 Venturi Mask 14.0 10/10/18 20:00 118 10/10/18 20:00 98.2 118 23 138/78 (98) 98 10/10/18 19:55 Venturi Mask 10.0 45 10/10/18 19:54 97 Venturi Mask 10.0 45 10/10/18 16:00 Venturi Mask 14.0 10/10/18 16:00 120 10/10/18 14:00 Venturi Mask 14.0 10/10/18 13:27 112 10/10/18 13:14 99.2 113 23 112/71 100 Venturi Mask 14.0 55 10/10/18 11:50 99.2 113 23 112/71 100 Venturi Mask 14.0 55 10/10/18 11:16 209 28 Non-Rebreather 15.0 10/10/18 11:16 209 28 111/72 96 Non-Rebreather 15.0 10/10/18 10:37 97.0 118 14 103/69 96 Non-Rebreather 15.0 Intake and Output 10/10/18 10/11/18 18:59 06:59 Intake Total 2541.666 ml 990.0 ml Output Total 250 ml 600 ml Balance 2291.666 ml 390.0 ml Intake IV Total 2541.666 ml 960.0 ml Other 30 ml Output Urine Total 250 ml 600 ml # Voids 1 Laboratory Tests Test 10/10/18 11:00 10/10/18 11:05 10/10/18 12:17 10/10/18 12:30 White Blood Count 3.7 K/UL (4.8-10.8) L Red Blood Count 4.42 M/UL (4.70-6.10) L Hemoglobin 13.7 G/DL (14.2-18.0) L Hematocrit 40.2 % (42.0-52.0) L Mean Corpuscular Volume 91 FL (80-99) Mean Corpuscular Hemoglobin 31.1 PG (27.0-31.0) H Mean Corpuscular Hemoglobin Concent 34.2 G/DL (32.0-36.0) Red Cell Distribution Width 13.3 % (11.6-14.8) Platelet Count 162 K/UL (150-450) Mean Platelet Volume 6.0 FL (6.5-10.1) L Neutrophils (%) (Auto) % (45.0-75.0) Lymphocytes (%) (Auto) % (20.0-45.0) Monocytes (%) (Auto) % (1.0-10.0) Eosinophils (%) (Auto) % (0.0-3.0) Basophils (%) (Auto) % (0.0-2.0) Differential Total Cells Counted 100 Neutrophils % (Manual) 76 % (45-75) H Lymphocytes % (Manual) 5 % (20-45) L Monocytes % (Manual) 2 % (1-10) Eosinophils % (Manual) 0 % (0-3) Basophils % (Manual) 0 % (0-2) Band Neutrophils 17 % (0-8) H Platelet Estimate Adequate Platelet Morphology Normal Red Blood Cell Morphology Normal Sodium Level 132 MMOL/L (136-145) L Potassium Level 4.4 MMOL/L (3.5-5.1) Chloride Level 97 MMOL/L (98-107) L Carbon Dioxide Level 33 MMOL/L (21-32) H Anion Gap 2 mmol/L (5-15) L Blood Urea Nitrogen 35 mg/dL (7-18) H Creatinine 0.9 MG/DL (0.55-1.30) Estimat Glomerular Filtration Rate > 60 mL/min (>60) Glucose Level 213 MG/DL (74-106) H Lactic Acid Level 2.20 mmol/L (0.4-2.0) H 3.60 mmol/L (0.66-2.22) H Calcium Level 9.1 MG/DL (8.5-10.1) Total Bilirubin 0.6 MG/DL (0.2-1.0) Aspartate Amino Transf (AST/SGOT) 33 U/L (15-37) Alanine Aminotransferase (ALT/SGPT) 27 U/L (12-78) Alkaline Phosphatase 51 U/L (46-116) Total Creatine Kinase 530 U/L (26-308) H Creatine Kinase MB 2.5 NG/ML (0.0-3.6) Creatine Kinase MB Relative Index 0.4 Troponin I 0.209 ng/mL (0.000-0.056) Pro-B-Type Natriuretic Peptide 830 pg/mL (0-125) H Total Protein 6.6 G/DL (6.4-8.2) Albumin 2.2 G/DL (3.4-5.0) L Globulin 4.4 g/dL Albumin/Globulin Ratio 0.5 (1.0-2.7) L Lipase 64 U/L (73-393) L Arterial Blood pH 7.480 (7.350-7.450) Arterial Blood Partial Pressure CO2 43.5 mmHg (35.0-45.0) Arterial Blood Partial Pressure O2 61.4 mmHg (75.0-100.0) L Arterial Blood HCO3 31.8 mmol/L (22.0-26.0) H Arterial Blood Oxygen Saturation 91.1 % (95-100) L Arterial Blood Base Excess 7.5 (-2-2) H Martell Test Positive Urine Color Pale yellow Urine Appearance Slightly cloudy Urine pH 5 (4.5-8.0) Urine Specific [place] 1.020 (1.005-1.035) Urine Protein 2+ (NEGATIVE) H Urine Glucose (UA) 3+ (NEGATIVE) H Urine Ketones 2+ (NEGATIVE) H Urine Blood 5+ (NEGATIVE) H Urine Nitrite Positive (NEGATIVE) H Urine Bilirubin Negative (NEGATIVE) Urine Urobilinogen Normal MG/DL (0.0-1.0) Urine Leukocyte Esterase 3+ (NEGATIVE) H Urine RBC 10-15 /HPF (0 - 0) H Urine WBC 30-40 /HPF (0 - 0) H Urine Squamous Epithelial Cells Occasional /LPF Urine Bacteria Few /HPF (NONE) Test 10/10/18 20:00 10/10/18 22:25 10/11/18 04:40 10/11/18 08:05 Lactic Acid Level 2.30 mmol/L (0.4-2.0) H 1.60 mmol/L (0.66-2.22) White Blood Count 3.0 K/UL (4.8-10.8) L 2.8 K/UL (4.8-10.8) L Red Blood Count 3.40 M/UL (4.70-6.10) L 3.40 M/UL (4.70-6.10) L Hemoglobin 10.8 G/DL (14.2-18.0) L 10.8 G/DL (14.2-18.0) L Hematocrit 31.1 % (42.0-52.0) L 31.0 % (42.0-52.0) L Mean Corpuscular Volume 92 FL (80-99) 91 FL (80-99) Mean Corpuscular Hemoglobin 31.7 PG (27.0-31.0) H 31.6 PG (27.0-31.0) H Mean Corpuscular Hemoglobin Concent 34.6 G/DL (32.0-36.0) 34.8 G/DL (32.0-36.0) Red Cell Distribution Width 12.9 % (11.6-14.8) 13.0 % (11.6-14.8) Platelet Count 95 K/UL (150-450) L 102 K/UL (150-450) L Mean Platelet Volume 6.1 FL (6.5-10.1) L 5.8 FL (6.5-10.1) L Neutrophils (%) (Auto) % (45.0-75.0) % (45.0-75.0) Lymphocytes (%) (Auto) % (20.0-45.0) % (20.0-45.0) Monocytes (%) (Auto) % (1.0-10.0) % (1.0-10.0) Eosinophils (%) (Auto) % (0.0-3.0) % (0.0-3.0) Basophils (%) (Auto) % (0.0-2.0) % (0.0-2.0) Sodium Level 137 MMOL/L (136-145) 138 MMOL/L (136-145) Potassium Level 3.6 MMOL/L (3.5-5.1) 3.4 MMOL/L (3.5-5.1) L Chloride Level 100 MMOL/L (98-107) 101 MMOL/L (98-107) Carbon Dioxide Level 35 MMOL/L (21-32) H 32 MMOL/L (21-32) Anion Gap 2 mmol/L (5-15) L 5 mmol/L (5-15) Blood Urea Nitrogen 15 mg/dL (7-18) 13 mg/dL (7-18) Creatinine 0.6 MG/DL (0.55-1.30) 0.6 MG/DL (0.55-1.30) Estimat Glomerular Filtration Rate > 60 mL/min (>60) > 60 mL/min (>60) Glucose Level 219 MG/DL (74-106) H 135 MG/DL (74-106) H Calcium Level 8.2 MG/DL (8.5-10.1) L 8.3 MG/DL (8.5-10.1) L Phosphorus Level 2.8 MG/DL (2.5-4.9) Albumin 1.7 G/DL (3.4-5.0) L Differential Total Cells Counted 100 Neutrophils % (Manual) 57 % (45-75) Lymphocytes % (Manual) 12 % (20-45) L Monocytes % (Manual) 11 % (1-10) H Eosinophils % (Manual) 1 % (0-3) Basophils % (Manual) 0 % (0-2) Band Neutrophils 19 % (0-8) H Platelet Estimate Decreased L Platelet Morphology Normal Anisocytosis 1+ Troponin I 0.183 ng/mL (0.000-0.056) Microbiology Date/Time Source Procedure Growth Status 10/10/18 14:30 Sputum Gram Stain - Final Resulted 10/10/18 14:30 Sputum Sputum Culture - Preliminary NORMAL UPPER RESPIRATORY ADITYA AT 24 ... Resulted 10/10/18 12:30 Urine,Clean Catch Urine Culture - Preliminary Gram Negative Cecil Resulted Height (Feet): 5 Height (Inches): 7.00 Weight (Pounds): 131 Medications Current Medications Medications (Trade) Dose Ordered Sig/Chace Route PRN Reason Start Time Stop Time Status Last Admin Dose Admin Acetaminophen (Tylenol) 650 mg Q4H PRN ORAL T>100.5 10/10/18 13:15 11/09/18 13:14 Albuterol/ Ipratropium (Albuterol/ Ipratropium) 3 ml Q4H PRN HHN Shortness of Breath 10/10/18 13:15 10/15/18 13:14 Carvedilol (Coreg) 12.5 mg EVERY 12 HOURS ORAL 10/10/18 21:00 11/09/18 20:59 10/11/18 08:55 Cefepime HCl 2 gm/ Dextrose 110 ml @ 220 mls/hr EVERY 12 HOURS IV 10/10/18 18:00 10/17/18 17:59 10/11/18 08:58 Dexamethasone (Decadron) 4 mg BID ORAL 10/10/18 18:00 11/09/18 17:59 10/11/18 08:55 Dextrose (Dextrose 50%) 25 ml Q30M PRN IV Hypoglycemia 10/10/18 13:15 11/09/18 13:14 Dextrose (Dextrose 50%) 50 ml Q30M PRN IV Hypoglycemia 10/10/18 13:15 11/09/18 13:14 Finasteride (Proscar) 5 mg DAILY@2100 ORAL 10/10/18 21:00 11/09/18 20:59 10/10/18 20:52 Gadobutrol (Gadavist) 7.5 mmol NOW PRN IV Radiology Procedure 10/10/18 16:30 10/14/18 16:24 Heparin Sodium (Porcine) (Heparin 5000 units/ml) 5,000 units EVERY 12 HOURS SUBQ 10/10/18 21:00 11/09/18 20:59 10/11/18 09:29 Insulin Aspart (NovoLOG) BEFORE MEALS AND HS SUBQ 10/10/18 16:30 11/09/18 16:29 10/11/18 05:50 Lamotrigine (LaMICtal) 50 mg DAILY ORAL 10/11/18 09:00 11/10/18 08:59 10/11/18 08:55 Lorazepam (Ativan 2mg/ml 1ml) 2 mg Q2H PRN IV For Anxiety 10/10/18 13:15 10/17/18 13:14 Morphine Sulfate (Morphine Sulfate) 4 mg Q4H PRN IVP Severe Pain (Pain Scale 7-10) 10/10/18 13:15 10/17/18 13:14 Ondansetron HCl (Zofran) 4 mg Q6H PRN IVP Nausea & Vomiting 10/10/18 13:15 11/09/18 13:14 Polyethylene Glycol (Miralax) 17 gm DAILYPRN PRN ORAL Constipation 10/10/18 13:15 11/09/18 13:14 Promethazine HCl/ Codeine (Phenergan with Codeine) 5 ml Q4H PRN ORAL For Cough 10/10/18 13:15 11/09/18 13:14 Quetiapine Fumarate (SEROquel) 25 mg Q12HR ORAL 10/10/18 21:00 11/09/18 20:59 10/10/18 21:21 Sitagliptin Phosphate (Januvia) 50 mg ACBREAKFAST ORAL 10/11/18 06:30 11/10/18 06:29 10/11/18 05:49 Sodium Chloride 1,000 ml @ 50 mls/hr Q20H IV 10/10/18 14:00 11/09/18 13:59 10/10/18 14:33 Tamsulosin HCl (Flomax) 0.4 mg BEDTIME ORAL 10/10/18 21:00 11/09/18 20:59 10/10/18 20:52 Valproic Acid (Depakene) 500 mg Q6HR ORAL 10/10/18 18:00 11/09/18 17:59 10/11/18 06:38 Vancomycin HCl (Vanco rx to dose) 1 ea DAILY PRN MISC . 10/10/18 13:30 11/09/18 13:29 Vancomycin HCl 1 gm/Dextrose 275 ml @ 183.3 mls/ hr Q12HR@0200,1400 IVPB 10/11/18 02:00 10/16/18 01:59 10/11/18 02:28 Assessment/Plan Assessment: ASSESSMENT acute hypoxemic resp failure ( requiring NRM and VM) acute toxic metabolic encephalopathy ( likely due to infection on underlying brain tumor) UTI Possible aspiration PNA Lactic acidosis Possible sepsis Elevated troponin Dehydration Hx of CVA with right sided hemiparesis Seizure disorder Brain Ca DM Anemia Hx of HTN Severe protein calorie malnutrition Sacral decub POA PLAN OF CARE VICKIE NPO IVF empiric abx fup with cx, sputum cx negative, urine cx + GNB supplemental O2 to keep sat above 92%, currently on VM pulm toilet fup with CXR and ABG in am venous Duplex BLE troponin elevated trending down, and ECG abnormal check ECHO cardio eval per primary team give add KCL lactic acid trended down MRI brain pending neuro follows on Decadron seizure precautions continue Lamictal and Depakote BS management with SSI and Starlix , check HgA1c monitor HH with goal to keep Hgb above 7, anemia w/up, stool OB, CEA supportive care hold Seroquel today-lethargic wound care as per surgery recs case discussed and evaluated by supervising physician Sari Madrigal NP Oct 11, 2018 09:36
--- NOTE | 2018-10-11 09:43 | General Progress Note ---
Assessment/Plan Problem List: (1) Brain tumor ICD Codes: D49.6 - Neoplasm of unspecified behavior of brain SNOMED: 579056612 (2) Altered level of consciousness ICD Codes: R40.4 - Transient alteration of awareness SNOMED: 6928400 (3) Diabetes mellitus ICD Codes: E11.9 - Type 2 diabetes mellitus without complications SNOMED: 84331855 (4) Hypertension ICD Codes: I10 - Essential (primary) hypertension SNOMED: 94180686 Assessment: continue Januvia as is add Starlix 60 mg ac tid continue NISS ac / hs Subjective ROS Limited/Unobtainable: Yes Allergies: Coded Allergies: No Known Allergies (Unverified , 09/27/18) Subjective presented from [facility] with AMS glucose is elevated Item Value Date Time Bedside Blood Glucose 204 mg/dl H 10/11/18 0635 Bedside Blood Glucose 192 mg/dl H 10/10/18 2123 Bedside Blood Glucose 194 mg/dl H 10/10/18 1630 Objective Last 24 Hour Vital Signs Date Time Temp Pulse Resp B/P (MAP) Pulse Ox O2 Delivery O2 Flow Rate FiO2 10/11/18 08:55 92 108/59 10/11/18 08:00 97.0 92 21 108/59 (75) 99 10/11/18 08:00 Venturi Mask 10.0 Venturi Mask 10.0 10/11/18 07:51 89 10/11/18 07:01 100 Venturi Mask 10.0 45 10/11/18 07:01 Venturi Mask 10.0 45 10/11/18 04:00 97.5 103 29 150/66 (94) 98 10/11/18 04:00 Venturi Mask 14.0 10/11/18 04:00 103 10/11/18 00:00 Venturi Mask 14.0 10/11/18 00:00 105 10/11/18 00:00 97.5 118 18 111/78 (89) 99 10/10/18 20:51 120 112/71 10/10/18 20:00 Venturi Mask 14.0 10/10/18 20:00 118 10/10/18 20:00 98.2 118 23 138/78 (98) 98 10/10/18 19:55 Venturi Mask 10.0 45 10/10/18 19:54 97 Venturi Mask 10.0 45 10/10/18 16:00 Venturi Mask 14.0 10/10/18 16:00 120 10/10/18 14:00 Venturi Mask 14.0 10/10/18 13:27 112 10/10/18 13:14 99.2 113 23 112/71 100 Venturi Mask 14.0 55 10/10/18 11:50 99.2 113 23 112/71 100 Venturi Mask 14.0 55 10/10/18 11:16 209 28 Non-Rebreather 15.0 10/10/18 11:16 209 28 111/72 96 Non-Rebreather 15.0 10/10/18 10:37 97.0 118 14 103/69 96 Non-Rebreather 15.0 Intake and Output 10/10/18 10/11/18 18:59 06:59 Intake Total 2541.666 ml 990.0 ml Output Total 250 ml 600 ml Balance 2291.666 ml 390.0 ml Intake IV Total 2541.666 ml 960.0 ml Other 30 ml Output Urine Total 250 ml 600 ml # Voids 1 Laboratory Tests 10/10/18 11:00: White Blood Count 3.7L, Red Blood Count 4.42L, Hemoglobin 13.7L, Hematocrit 40.2L, Mean Corpuscular Volume 91, Mean Corpuscular Hemoglobin 31.1H, Mean Corpuscular Hemoglobin Concent 34.2, Red Cell Distribution Width 13.3, Platelet Count 162, Mean Platelet Volume 6.0L, Neutrophils (%) (Auto) , Lymphocytes (%) ( Auto) , Monocytes (%) (Auto) , Eosinophils (%) (Auto) , Basophils (%) (Auto) , Differential Total Cells Counted 100, Neutrophils % (Manual) 76H, Lymphocytes % (Manual) 5L, Monocytes % (Manual) 2, Eosinophils % (Manual) 0, Basophils % ( Manual) 0, Band Neutrophils 17H, Platelet Estimate Adequate, Platelet Morphology Normal, Red Blood Cell Morphology Normal, Sodium Level 132L, Potassium Level 4.4, Chloride Level 97L, Carbon Dioxide Level 33H, Anion Gap 2L , Blood Urea Nitrogen 35H, Creatinine 0.9, Estimat Glomerular Filtration Rate > 60, Glucose Level 213H, Lactic Acid Level 2.20H, Calcium Level 9.1, Total Bilirubin 0.6, Aspartate Amino Transf (AST/SGOT) 33, Alanine Aminotransferase ( ALT/SGPT) 27, Alkaline Phosphatase 51, Total Creatine Kinase 530H, Creatine Kinase MB 2.5, Creatine Kinase MB Relative Index 0.4, Troponin I 0.209H, Pro-B- Type Natriuretic Peptide 830H, Total Protein 6.6, Albumin 2.2L, Globulin 4.4, Albumin/Globulin Ratio 0.5L, Lipase 64L 10/10/18 11:05: Arterial Blood pH 7.480H, Arterial Blood Partial Pressure CO2 43.5, Arterial Blood Partial Pressure O2 61.4L, Arterial Blood HCO3 31.8H, Arterial Blood Oxygen Saturation 91.1L, Arterial Blood Base Excess 7.5H, Martell Test Positive 10/10/18 12:17: Lactic Acid Level 3.60H 10/10/18 12:30: Urine Color Pale yellow, Urine Appearance Slightly cloudy, Urine pH 5, Urine Specific [place] 1.020, Urine Protein 2+H, Urine Glucose (UA) 3+H, Urine Ketones 2+H, Urine Blood 5+H, Urine Nitrite PositiveH, Urine Bilirubin Negative , Urine Urobilinogen Normal, Urine Leukocyte Esterase 3+H, Urine RBC 10-15H, Urine WBC 30-40H, Urine Squamous Epithelial Cells Occasional, Urine Bacteria Few 10/10/18 20:00: Lactic Acid Level 2.30H 10/10/18 22:25: Lactic Acid Level 1.60 10/11/18 04:40: White Blood Count 3.0L, Red Blood Count 3.40L, Hemoglobin 10.8L, Hematocrit 31.1L, Mean Corpuscular Volume 92, Mean Corpuscular Hemoglobin 31.7H, Mean Corpuscular Hemoglobin Concent 34.6, Red Cell Distribution Width 12.9, Platelet Count 95L, Mean Platelet Volume 6.1L, Neutrophils (%) (Auto) , Lymphocytes (%) ( Auto) , Monocytes (%) (Auto) , Eosinophils (%) (Auto) , Basophils (%) (Auto) , Sodium Level 137, Potassium Level 3.6, Chloride Level 100, Carbon Dioxide Level 35H, Anion Gap 2L, Blood Urea Nitrogen 15, Creatinine 0.6, Estimat Glomerular Filtration Rate > 60, Glucose Level 219H, Calcium Level 8.2L, Phosphorus Level 2.8, Albumin 1.7L 10/11/18 08:05: White Blood Count 2.8L, Red Blood Count 3.40L, Hemoglobin 10.8L, Hematocrit 31.0L, Mean Corpuscular Volume 91, Mean Corpuscular Hemoglobin 31.6H, Mean Corpuscular Hemoglobin Concent 34.8, Red Cell Distribution Width 13.0, Platelet Count 102L, Mean Platelet Volume 5.8L, Neutrophils (%) (Auto) , Lymphocytes (%) (Auto) , Monocytes (%) (Auto) , Eosinophils (%) (Auto) , Basophils (%) (Auto) , Sodium Level 138, Potassium Level 3.4L, Chloride Level 101, Carbon Dioxide Level 32, Anion Gap 5, Blood Urea Nitrogen 13, Creatinine 0.6, Estimat Glomerular Filtration Rate > 60, Glucose Level 135H, Calcium Level 8.3L, Differential Total Cells Counted 100, Neutrophils % (Manual) 57, Lymphocytes % ( Manual) 12L, Monocytes % (Manual) 11H, Eosinophils % (Manual) 1, Basophils % ( Manual) 0, Band Neutrophils 19H, Platelet Estimate DecreasedL, Platelet Morphology Normal, Anisocytosis 1+, Troponin I 0.183H Height (Feet): 5 Height (Inches): 7.00 Weight (Pounds): 131 General Appearance: no apparent distress Neck: normal alignment Cardiovascular: normal rate Respiratory/Chest: lungs clear Abdomen: normal bowel sounds Pelvis: normal external exam Objective Current Medications Medications (Trade) Dose Ordered Sig/Chace Route PRN Reason Start Time Stop Time Status Last Admin Dose Admin Acetaminophen (Tylenol) 650 mg Q4H PRN ORAL T>100.5 10/10/18 13:15 11/09/18 13:14 Albuterol/ Ipratropium (Albuterol/ Ipratropium) 3 ml Q4H PRN HHN Shortness of Breath 10/10/18 13:15 10/15/18 13:14 Carvedilol (Coreg) 12.5 mg EVERY 12 HOURS ORAL 10/10/18 21:00 11/09/18 20:59 10/11/18 08:55 Cefepime HCl 2 gm/ Dextrose 110 ml @ 220 mls/hr EVERY 12 HOURS IV 10/10/18 18:00 10/17/18 17:59 10/11/18 08:58 Dexamethasone (Decadron) 4 mg BID ORAL 10/10/18 18:00 11/09/18 17:59 10/11/18 08:55 Dextrose (Dextrose 50%) 25 ml Q30M PRN IV Hypoglycemia 10/10/18 13:15 11/09/18 13:14 Dextrose (Dextrose 50%) 50 ml Q30M PRN IV Hypoglycemia 10/10/18 13:15 11/09/18 13:14 Finasteride (Proscar) 5 mg DAILY@2100 ORAL 10/10/18 21:00 11/09/18 20:59 10/10/18 20:52 Gadobutrol (Gadavist) 7.5 mmol NOW PRN IV Radiology Procedure 10/10/18 16:30 10/14/18 16:24 Heparin Sodium (Porcine) (Heparin 5000 units/ml) 5,000 units EVERY 12 HOURS SUBQ 10/10/18 21:00 11/09/18 20:59 10/11/18 09:29 Insulin Aspart (NovoLOG) BEFORE MEALS AND HS SUBQ 10/10/18 16:30 11/09/18 16:29 10/11/18 05:50 Lamotrigine (LaMICtal) 50 mg DAILY ORAL 10/11/18 09:00 11/10/18 08:59 10/11/18 08:55 Lorazepam (Ativan 2mg/ml 1ml) 2 mg Q2H PRN IV For Anxiety 10/10/18 13:15 10/17/18 13:14 Morphine Sulfate (Morphine Sulfate) 4 mg Q4H PRN IVP Severe Pain (Pain Scale 7-10) 10/10/18 13:15 10/17/18 13:14 Ondansetron HCl (Zofran) 4 mg Q6H PRN IVP Nausea & Vomiting 10/10/18 13:15 11/09/18 13:14 Polyethylene Glycol (Miralax) 17 gm DAILYPRN PRN ORAL Constipation 10/10/18 13:15 11/09/18 13:14 Promethazine HCl/ Codeine (Phenergan with Codeine) 5 ml Q4H PRN ORAL For Cough 10/10/18 13:15 11/09/18 13:14 Quetiapine Fumarate (SEROquel) 25 mg Q12HR ORAL 10/10/18 21:00 11/09/18 20:59 10/10/18 21:21 Sitagliptin Phosphate (Januvia) 50 mg ACBREAKFAST ORAL 10/11/18 06:30 11/10/18 06:29 10/11/18 05:49 Sodium Chloride 1,000 ml @ 50 mls/hr Q20H IV 10/10/18 14:00 11/09/18 13:59 10/11/18 09:33 Tamsulosin HCl (Flomax) 0.4 mg BEDTIME ORAL 10/10/18 21:00 11/09/18 20:59 10/10/18 20:52 Valproic Acid (Depakene) 500 mg Q6HR ORAL 10/10/18 18:00 11/09/18 17:59 10/11/18 06:38 Vancomycin HCl (Vanco rx to dose) 1 ea DAILY PRN MISC . 10/10/18 13:30 11/09/18 13:29 Vancomycin HCl 1 gm/Dextrose 275 ml @ 183.3 mls/ hr Q12HR@0200,1400 IVPB 10/11/18 02:00 10/16/18 01:59 10/11/18 02:28 Richard Lugo MD Oct 11, 2018 09:43
[2018-10-11 12:00] VITALS: BP 103/50
--- NOTE | 2018-10-11 13:10 | Internal Med Progress Note ---
Subjective Date of Service: Oct 11, 2018 Physician Name Jesus Kidd Attending Physician Camacho Braun MD Current Medications Medications (Trade) Dose Ordered Sig/Chace Route PRN Reason Start Time Stop Time Status Last Admin Dose Admin Acetaminophen (Tylenol) 650 mg Q4H PRN ORAL T>100.5 10/10/18 13:15 11/09/18 13:14 Albuterol/ Ipratropium (Albuterol/ Ipratropium) 3 ml Q4H PRN HHN Shortness of Breath 10/10/18 13:15 10/15/18 13:14 Carvedilol (Coreg) 12.5 mg EVERY 12 HOURS ORAL 10/10/18 21:00 11/09/18 20:59 10/11/18 08:55 Cefepime HCl 2 gm/ Dextrose 110 ml @ 220 mls/hr EVERY 12 HOURS IV 10/10/18 18:00 10/17/18 17:59 10/11/18 08:58 Dexamethasone (Decadron) 4 mg BID ORAL 10/10/18 18:00 11/09/18 17:59 10/11/18 08:55 Dextrose (Dextrose 50%) 25 ml Q30M PRN IV Hypoglycemia 10/10/18 13:15 11/09/18 13:14 Dextrose (Dextrose 50%) 50 ml Q30M PRN IV Hypoglycemia 10/10/18 13:15 11/09/18 13:14 Finasteride (Proscar) 5 mg DAILY@2100 ORAL 10/10/18 21:00 11/09/18 20:59 10/10/18 20:52 Gadobutrol (Gadavist) 7.5 mmol NOW PRN IV Radiology Procedure 10/10/18 16:30 10/14/18 16:24 Heparin Sodium (Porcine) (Heparin 5000 units/ml) 5,000 units EVERY 12 HOURS SUBQ 10/10/18 21:00 11/09/18 20:59 10/11/18 09:29 Insulin Aspart (NovoLOG) BEFORE MEALS AND HS SUBQ 10/10/18 16:30 11/09/18 16:29 10/11/18 05:50 Lamotrigine (LaMICtal) 50 mg DAILY ORAL 10/11/18 09:00 11/10/18 08:59 10/11/18 08:55 Lorazepam (Ativan 2mg/ml 1ml) 2 mg Q2H PRN IV For Anxiety 10/10/18 13:15 10/17/18 13:14 Morphine Sulfate (Morphine Sulfate) 4 mg Q4H PRN IVP Severe Pain (Pain Scale 7-10) 10/10/18 13:15 10/17/18 13:14 Ondansetron HCl (Zofran) 4 mg Q6H PRN IVP Nausea & Vomiting 10/10/18 13:15 11/09/18 13:14 Polyethylene Glycol (Miralax) 17 gm DAILYPRN PRN ORAL Constipation 10/10/18 13:15 11/09/18 13:14 Promethazine HCl/ Codeine (Phenergan with Codeine) 5 ml Q4H PRN ORAL For Cough 10/10/18 13:15 11/09/18 13:14 Quetiapine Fumarate (SEROquel) 25 mg Q12HR ORAL 10/10/18 21:00 11/09/18 20:59 10/10/18 21:21 Sitagliptin Phosphate (Januvia) 50 mg ACBREAKFAST ORAL 10/11/18 06:30 11/10/18 06:29 10/11/18 05:49 Sodium Chloride 1,000 ml @ 50 mls/hr Q20H IV 10/10/18 14:00 11/09/18 13:59 10/11/18 09:33 Tamsulosin HCl (Flomax) 0.4 mg BEDTIME ORAL 10/10/18 21:00 11/09/18 20:59 10/10/18 20:52 Valproic Acid (Depakene) 500 mg Q6HR ORAL 10/10/18 18:00 11/09/18 17:59 10/11/18 12:35 Vancomycin HCl (Vanco rx to dose) 1 ea DAILY PRN MISC . 10/10/18 13:30 11/09/18 13:29 Vancomycin HCl 1 gm/Dextrose 275 ml @ 183.3 mls/ hr Q12HR@0200,1400 IVPB 10/11/18 02:00 10/16/18 01:59 10/11/18 02:28 Allergies: Coded Allergies: No Known Allergies (Unverified , 09/27/18) ROS Limited/Unobtainable: Yes Subjective 68 YO M with history of brain cancer admitted with altered mental status. Now UTI. Cover for Int Nicole Braun Objective Last Vital Signs Date Time Temp Pulse Resp B/P (MAP) Pulse Ox O2 Delivery O2 Flow Rate FiO2 10/11/18 12:00 98.9 82 12 103/50 (67) 97 10/11/18 12:00 Venturi Mask 10.0 Venturi Mask 10.0 10/11/18 07:01 45 Laboratory Tests Test 10/10/18 20:00 10/10/18 22:25 10/11/18 04:40 10/11/18 08:05 Lactic Acid Level 2.30 mmol/L (0.4-2.0) H 1.60 mmol/L (0.66-2.22) White Blood Count 3.0 K/UL (4.8-10.8) L 2.8 K/UL (4.8-10.8) L Red Blood Count 3.40 M/UL (4.70-6.10) L 3.40 M/UL (4.70-6.10) L Hemoglobin 10.8 G/DL (14.2-18.0) L 10.8 G/DL (14.2-18.0) L Hematocrit 31.1 % (42.0-52.0) L 31.0 % (42.0-52.0) L Mean Corpuscular Volume 92 FL (80-99) 91 FL (80-99) Mean Corpuscular Hemoglobin 31.7 PG (27.0-31.0) H 31.6 PG (27.0-31.0) H Mean Corpuscular Hemoglobin Concent 34.6 G/DL (32.0-36.0) 34.8 G/DL (32.0-36.0) Red Cell Distribution Width 12.9 % (11.6-14.8) 13.0 % (11.6-14.8) Platelet Count 95 K/UL (150-450) L 102 K/UL (150-450) L Mean Platelet Volume 6.1 FL (6.5-10.1) L 5.8 FL (6.5-10.1) L Neutrophils (%) (Auto) % (45.0-75.0) % (45.0-75.0) Lymphocytes (%) (Auto) % (20.0-45.0) % (20.0-45.0) Monocytes (%) (Auto) % (1.0-10.0) % (1.0-10.0) Eosinophils (%) (Auto) % (0.0-3.0) % (0.0-3.0) Basophils (%) (Auto) % (0.0-2.0) % (0.0-2.0) Sodium Level 137 MMOL/L (136-145) 138 MMOL/L (136-145) Potassium Level 3.6 MMOL/L (3.5-5.1) 3.4 MMOL/L (3.5-5.1) L Chloride Level 100 MMOL/L (98-107) 101 MMOL/L (98-107) Carbon Dioxide Level 35 MMOL/L (21-32) H 32 MMOL/L (21-32) Anion Gap 2 mmol/L (5-15) L 5 mmol/L (5-15) Blood Urea Nitrogen 15 mg/dL (7-18) 13 mg/dL (7-18) Creatinine 0.6 MG/DL (0.55-1.30) 0.6 MG/DL (0.55-1.30) Estimat Glomerular Filtration Rate > 60 mL/min (>60) > 60 mL/min (>60) Glucose Level 219 MG/DL (74-106) H 135 MG/DL (74-106) H Calcium Level 8.2 MG/DL (8.5-10.1) L 8.3 MG/DL (8.5-10.1) L Phosphorus Level 2.8 MG/DL (2.5-4.9) Albumin 1.7 G/DL (3.4-5.0) L Differential Total Cells Counted 100 Neutrophils % (Manual) 57 % (45-75) Lymphocytes % (Manual) 12 % (20-45) L Monocytes % (Manual) 11 % (1-10) H Eosinophils % (Manual) 1 % (0-3) Basophils % (Manual) 0 % (0-2) Band Neutrophils 19 % (0-8) H Platelet Estimate Decreased L Platelet Morphology Normal Anisocytosis 1+ Troponin I 0.183 ng/mL (0.000-0.056) Microbiology Date/Time Source Procedure Growth Status 10/10/18 14:30 Sputum Gram Stain - Final Resulted 4/20/19 14:30 Sputum Sputum Culture - Preliminary NORMAL UPPER RESPIRATORY ADITYA AT 24 ... Resulted 10/10/18 12:30 Urine,Clean Catch Urine Culture - Preliminary Gram Negative Cecil Resulted Intake and Output 10/10/18 10/11/18 19:00 07:00 Intake Total 2591.666 ml 940.0 ml Output Total 250 ml 600 ml Balance 2341.666 ml 340.0 ml Intake IV Total 2591.666 ml 910.0 ml Other 30 ml Output Urine Total 250 ml 600 ml # Voids 1 Objective PHYSICAL EXAMINATION: GENERAL: The patient is well-developed and well-nourished male, in moderate respiratory distress. HEENT: Eyes, pupils are equal and responsive to light and accommodation. Extraocular movements are intact. NECK: Supple without lymphadenopathy. CHEST: Lungs are clear to auscultation bilaterally without wheezes or rales. CARDIOVASCULAR: Regular rhythm and rate. S1 and S2 normal without murmurs, rubs, or gallops. ABDOMEN: Soft, nontender, and nondistended. Positive bowel sounds. No evidence of hepatosplenomegaly, rebound or guarding noted. EXTREMITIES: Negative for clubbing, cyanosis, or edema. RECTAL/GENITAL: Not performed. NEUROLOGICAL: Cranial nerves II through XII are grossly intact without focal deficits Assessment/Plan Assessment/Plan ASSESSMENT: This is a 68-year-old male. 1. Altered mental status. 2. Urinary tract infection-Gram neg cecil 3. Brain cancer. 4. Seizure disorder. 5. Diabetes type 2. 6. History of cerebrovascular accident. 7. Right hemiparesis. 8. Hypertension. 9. Coronary artery disease. 10. Expressive aphasia. 11. Hypercholesterolemia. TREATMENT: 1. Altered mental status. This may be secondary to urinary tract infection. Urine culture is pending. The patient has been started empirically on vancomycin and cefepime. Await urine cultures. 2. Urinary tract infection-gram neg cecil. Urine culture ID and sensitivity is pending. The patient has been started empirically on vancomycin and cefepime. We will follow recommendations of Infectious Diseases. 3. Brain cancer. 4. Seizure disorder. Continue Depakote and Lamictal as above. 5. Diabetes type 2. A NovoLog sliding scale has been instituted. 6. History of cerebrovascular accident. 7. Right hemiparesis. 8. Expressive aphasia. 9. Hypertension. The patient is currently hypotensive. 10. History of coronary artery disease. 11. Urinary tract infection-gram neg Jesus Reynolds MD Oct 11, 2018 13:10
--- NOTE | 2018-10-11 14:58 | Consultation ---
Consult Note Consult Note Cardiology for Dr. Avalos Full consult dictated # [id number] Pt w/ multiple chronic med issues, adm w/ UTI/ urosepsis. Mild troponin elevation without acute ischemic ekg changes - c/w demand ischemia in setting of sepsis. ECHO w/ focal wma, EF 45-50% and EKG changes c/w old infarcts. Would manage medically - continue coreg, add asa, statin if no contraindication. He is not a candidate for invasive cardiac rx due to comorbidities. Dr Avalos to follow. eLsli Mclain MD Oct 11, 2018 14:58
--- NOTE | 2018-10-11 15:07 | Surgery Progress Note ---
Surgery Progress Note Subjective Additional Comments no acute events. exam unchanged. labs improved. comfortable appearing Objective Last 24 Hour Vital Signs Date Time Temp Pulse Resp B/P (MAP) Pulse Ox O2 Delivery O2 Flow Rate FiO2 10/11/18 12:00 98.9 82 12 103/50 (67) 97 10/11/18 12:00 Venturi Mask 10.0 Venturi Mask 10.0 10/11/18 11:38 82 10/11/18 08:55 92 108/59 10/11/18 08:00 97.0 92 21 108/59 (75) 99 10/11/18 08:00 Venturi Mask 10.0 Venturi Mask 10.0 10/11/18 07:51 89 10/11/18 07:01 100 Venturi Mask 10.0 45 10/11/18 07:01 Venturi Mask 10.0 45 10/11/18 04:00 97.5 103 29 150/66 (94) 98 10/11/18 04:00 Venturi Mask 14.0 10/11/18 04:00 103 10/11/18 00:00 Venturi Mask 14.0 10/11/18 00:00 105 10/11/18 00:00 97.5 118 18 111/78 (89) 99 10/10/18 20:51 120 112/71 10/10/18 20:00 Venturi Mask 14.0 10/10/18 20:00 118 10/10/18 20:00 98.2 118 23 138/78 (98) 98 10/10/18 19:55 Venturi Mask 10.0 45 10/10/18 19:54 97 Venturi Mask 10.0 45 10/10/18 16:00 Venturi Mask 14.0 10/10/18 16:00 120 I&O Intake and Output 10/10/18 10/11/18 19:00 07:00 Intake Total 2591.666 ml 990.0 ml Output Total 250 ml 600 ml Balance 2341.666 ml 390.0 ml Intake IV Total 2591.666 ml 960.0 ml Other 30 ml Output Urine Total 250 ml 600 ml # Voids 1 Dressing: saturated Wound: other Drains: other Cardiovascular: RSR Respiratory: decreased breath sounds Abdomen: soft, present bowel sounds, non-distended Extremities: edema, no cyanosis Laboratory Tests Test 10/10/18 20:00 4/20/19 22:25 10/11/18 04:40 10/11/18 08:05 Lactic Acid Level 2.30 mmol/L (0.4-2.0) H 1.60 mmol/L (0.66-2.22) White Blood Count 3.0 K/UL (4.8-10.8) L 2.8 K/UL (4.8-10.8) L Red Blood Count 3.40 M/UL (4.70-6.10) L 3.40 M/UL (4.70-6.10) L Hemoglobin 10.8 G/DL (14.2-18.0) L 10.8 G/DL (14.2-18.0) L Hematocrit 31.1 % (42.0-52.0) L 31.0 % (42.0-52.0) L Mean Corpuscular Volume 92 FL (80-99) 91 FL (80-99) Mean Corpuscular Hemoglobin 31.7 PG (27.0-31.0) H 31.6 PG (27.0-31.0) H Mean Corpuscular Hemoglobin Concent 34.6 G/DL (32.0-36.0) 34.8 G/DL (32.0-36.0) Red Cell Distribution Width 12.9 % (11.6-14.8) 13.0 % (11.6-14.8) Platelet Count 95 K/UL (150-450) L 102 K/UL (150-450) L Mean Platelet Volume 6.1 FL (6.5-10.1) L 5.8 FL (6.5-10.1) L Neutrophils (%) (Auto) % (45.0-75.0) % (45.0-75.0) Lymphocytes (%) (Auto) % (20.0-45.0) % (20.0-45.0) Monocytes (%) (Auto) % (1.0-10.0) % (1.0-10.0) Eosinophils (%) (Auto) % (0.0-3.0) % (0.0-3.0) Basophils (%) (Auto) % (0.0-2.0) % (0.0-2.0) Sodium Level 137 MMOL/L (136-145) 138 MMOL/L (136-145) Potassium Level 3.6 MMOL/L (3.5-5.1) 3.4 MMOL/L (3.5-5.1) L Chloride Level 100 MMOL/L (98-107) 101 MMOL/L (98-107) Carbon Dioxide Level 35 MMOL/L (21-32) H 32 MMOL/L (21-32) Anion Gap 2 mmol/L (5-15) L 5 mmol/L (5-15) Blood Urea Nitrogen 15 mg/dL (7-18) 13 mg/dL (7-18) Creatinine 0.6 MG/DL (0.55-1.30) 0.6 MG/DL (0.55-1.30) Estimat Glomerular Filtration Rate > 60 mL/min (>60) > 60 mL/min (>60) Glucose Level 219 MG/DL (74-106) H 135 MG/DL (74-106) H Calcium Level 8.2 MG/DL (8.5-10.1) L 8.3 MG/DL (8.5-10.1) L Phosphorus Level 2.8 MG/DL (2.5-4.9) Albumin 1.7 G/DL (3.4-5.0) L Differential Total Cells Counted 100 Neutrophils % (Manual) 57 % (45-75) Lymphocytes % (Manual) 12 % (20-45) L Monocytes % (Manual) 11 % (1-10) H Eosinophils % (Manual) 1 % (0-3) Basophils % (Manual) 0 % (0-2) Band Neutrophils 19 % (0-8) H Platelet Estimate Decreased L Platelet Morphology Normal Anisocytosis 1+ Troponin I 0.183 ng/mL (0.000-0.056) Plan Problems: (1) Acute encephalopathy (2) Sacral decubitus ulcer Assessment & Plan: Pt presented on admission with worsening sacral decubitus ulcer. Initially only a DTPI which has since opened and evolved into unstageable necrotic sacral decubitus ulcer. seems to likely be down to coccyx with periwound necrosis of the dermal aspecs and surrounding deep tissue injury. wound fluctuant,purple with maroon borders. no significant drainage or signs of active infection. approximately 12 x 9 cm now. Non-blanchable erythema without induration periwound. Bilat elbows and bilat heels are pink and blanchable.No other skin concerns noted. Tx.Plan: Cleanse sacral wound with Saline.Apply Triad Paste to periwound, apply hydrogel gauze to open portions of wound and Cover with Optifoam drsg. Change day and prn. Apply Cavilon Skin Barrier to both heels. Cover each heel with Optifoam drsg. Change every 7 days and prn. APM/ADRIAN Mattress overlay. Reposition at least every 2 hours or as tolerated. Off-load heels with pillow. Will discuss findings with patients family. recommend excisional debridement of wound for better evaluation and to allow for healing in such early stage. thank you (3) Deep tissue injury (4) Valproic acid toxicity (5) acute toxic encephalopathy (6) Sepsis Assessment & Plan: unlikely related to wound as not acutely infected cont with Rx as ordered will follow with recs trend labs thank you (7) Diabetes mellitus (8) Hypertension Harry Rivas Oct 11, 2018 15:07
[2018-10-11] MEDS ORDERED: Tubing IV Secondary IV ONE (15:22)
[2018-10-11] MEDS ORDERED: 1/2 NS 1000ml IV ONE (15:22)
[2018-10-11] MEDS ORDERED: NS 275ml ONE (15:22)
[2018-10-11 16:00] VITALS: BP 122/67
--- NOTE | 2018-10-11 19:00 | Consultation ---
DATE OF CONSULTATION: 10/11/2018 Cardiology consultation being done as coverage for Dr. Avalos. REASON FOR CONSULTATION: Elevated troponin. HISTORY OF PRESENT ILLNESS: History was obtained from the chart and treating providers as the patient is nonverbal and unable to give any history. The patient is a 68-year-old male with history of brain tumor resected in June 2018 and also treated with radiation therapy. History of CVA with right hemiparesis and aphasia, hypertension, diabetes and coronary artery disease who was admitted, transferred from the convalescent facility with altered mental status. He was found to have a pulse of 118, blood pressure 103/69, pulse oximeter 96% on non-rebreather mask. On admission, his lactic acid was elevated at 3.6. Troponin was elevated at 0.209. Urinalysis was positive for nitrite, leukocyte esterase, and white blood cells. He was admitted for treatment of urinary tract infection and sepsis. Cardiology evaluation was requested for evaluation of possible myocardial ischemia or infarction given the elevated troponin level. CURRENT MEDICATIONS: Lamictal 50 mg daily, Januvia 50 mg daily, vancomycin 1 g IV q.12 h., Coreg 12.5 mg q.12 hours, Proscar 5 mg by p.o. daily, Seroquel 25 mg q.12 hours, Flomax 0.4 mg at bedtime, subcutaneous heparin 5000 units every 12 hours, Decadron 4 mg p.o. b.i.d., Depakene 500 mg p.o. 6.h, cefepime 2 g IV q.12 hours, insulin sliding scale, Gadavist, vancomycin (discontinued), Zofran, MiraLAX, morphine, Tylenol, albuterol/ipratropium inhaler as needed. ALLERGIES: No known drug allergies. PAST MEDICAL HISTORY: As noted above. SOCIAL HISTORY: Not obtainable from the patient or chart. REVIEW OF SYSTEMS: Not obtainable from the patient or chart. PHYSICAL EXAMINATION: VITAL SIGNS: Blood pressure is 103/50, pulse 82 and regular, respirations 20, afebrile, oxygen saturation 97% on face mask oxygen. GENERAL: The patient is sedated but opens eyes to voice. No verbal responses. Follows few simple commands. HEENT: Normocephalic and atraumatic. Pupils are equal, round, and reactive to light. Oral mucosa are dry. NECK: Supple. There is no jugular venous distention. LUNGS: Few crackles at bases. Poor cooperation with deep inspiratory effort. HEART: Regular rate and rhythm. S1 and S2. No murmurs or S3. ABDOMEN: Soft, nontender. No palpable masses. EXTREMITIES: No cyanosis, clubbing, or edema. LABORATORY AND DIAGNOSTIC DATA: Hemoglobin 10.8, white blood count 2800, platelets 102,000. Sodium 138, potassium 3.4, chloride 101, bicarb 32, BUN 13, and creatinine 0.6. Troponin on admission 0.209 and repeat 0.183. Lactic acid on admission 3.6, repeat 1.6. Urine culture preliminary positive gram-negative rods. Urinalysis positive white blood cells, nitrate, and leukocyte esterase. EKG shows sinus rhythm, rate of 94 beats per minute, small inferior Q-waves, poor R-wave progression anteriorly, no ST-segment or T-wave changes. Chest x-ray shows clear lung joe, normal heart size. Echo showed inferior hypokinesis with apical and apical septal hypokinesis, ejection fraction 45% to 50%, mild left ventricular hypertrophy, trace mitral and tricuspid regurgitation. ASSESSMENT AND RECOMMENDATIONS: The patient is a 68-year-old man with multiple chronic medical problems as outlined above, who was admitted with altered mental status, urinary tract infection, urosepsis. In this setting, he has had a mild elevation of troponin level consistent with demand ischemia. His EKG shows old infarcts consistent with the echo findings with inferior septal and apical hypokinesis. He does not appear with evidence for acute ischemia, no acute ischemic ST-segment changes. I would favor continued medical therapy for urosepsis. We would supplement potassium, would give aspirin beta-radha, and statin for probable coronary artery disease. Further evaluation for ischemia will be deferred given the patient's comorbidities and overall functional status. Dr. Avalos will continue to follow the patient when he returns on 10/12/2018. Thank you for allowing us to participate in his care. Lesli Mclain M.D. DR: Lalo JOB#: [id number] CC:
[2018-10-11 20:00] VITALS: BP 120/66
[2018-10-11] MEDS: Tamsulosin 0.4mg cap ORAL SCH (20:40)
[2018-10-12] VITALS: BP 108/60
--- NOTE | 2018-10-12 01:26 | Neurology Progress Note ---
Interim History Interim History ROS Limited/Unobtainable: Yes Events: None reported - MS unchanged . Neuro exam stable. Review of Systems All Systems: reviewed and negative except above Objective Physical Exam Last Vital Signs Date Time Temp Pulse Resp B/P (MAP) Pulse Ox O2 Delivery O2 Flow Rate FiO2 10/11/18 20:41 90 120/66 10/11/18 20:00 Venturi Mask 10.0 Venturi Mask 10.0 10/11/18 20:00 97.9 22 100 10/11/18 19:45 45 Laboratory Tests Test 10/11/18 04:40 10/11/18 08:05 10/11/18 18:15 10/12/18 01:00 White Blood Count 3.0 K/UL (4.8-10.8) L 2.8 K/UL (4.8-10.8) L Red Blood Count 3.40 M/UL (4.70-6.10) L 3.40 M/UL (4.70-6.10) L Hemoglobin 10.8 G/DL (14.2-18.0) L 10.8 G/DL (14.2-18.0) L Hematocrit 31.1 % (42.0-52.0) L 31.0 % (42.0-52.0) L Mean Corpuscular Volume 92 FL (80-99) 91 FL (80-99) Mean Corpuscular Hemoglobin 31.7 PG (27.0-31.0) H 31.6 PG (27.0-31.0) H Mean Corpuscular Hemoglobin Concent 34.6 G/DL (32.0-36.0) 34.8 G/DL (32.0-36.0) Red Cell Distribution Width 12.9 % (11.6-14.8) 13.0 % (11.6-14.8) Platelet Count 95 K/UL (150-450) L 102 K/UL (150-450) L Mean Platelet Volume 6.1 FL (6.5-10.1) L 5.8 FL (6.5-10.1) L Neutrophils (%) (Auto) % (45.0-75.0) % (45.0-75.0) Lymphocytes (%) (Auto) % (20.0-45.0) % (20.0-45.0) Monocytes (%) (Auto) % (1.0-10.0) % (1.0-10.0) Eosinophils (%) (Auto) % (0.0-3.0) % (0.0-3.0) Basophils (%) (Auto) % (0.0-2.0) % (0.0-2.0) Sodium Level 137 MMOL/L (136-145) 138 MMOL/L (136-145) Potassium Level 3.6 MMOL/L (3.5-5.1) 3.4 MMOL/L (3.5-5.1) L Chloride Level 100 MMOL/L (98-107) 101 MMOL/L (98-107) Carbon Dioxide Level 35 MMOL/L (21-32) H 32 MMOL/L (21-32) Anion Gap 2 mmol/L (5-15) L 5 mmol/L (5-15) Blood Urea Nitrogen 15 mg/dL (7-18) 13 mg/dL (7-18) Creatinine 0.6 MG/DL (0.55-1.30) 0.6 MG/DL (0.55-1.30) Estimat Glomerular Filtration Rate > 60 mL/min (>60) > 60 mL/min (>60) Glucose Level 219 MG/DL (74-106) H 135 MG/DL (74-106) H Calcium Level 8.2 MG/DL (8.5-10.1) L 8.3 MG/DL (8.5-10.1) L Phosphorus Level 2.8 MG/DL (2.5-4.9) Albumin 1.7 G/DL (3.4-5.0) L Differential Total Cells Counted 100 Neutrophils % (Manual) 57 % (45-75) Lymphocytes % (Manual) 12 % (20-45) L Monocytes % (Manual) 11 % (1-10) H Eosinophils % (Manual) 1 % (0-3) Basophils % (Manual) 0 % (0-2) Band Neutrophils 19 % (0-8) H Platelet Estimate Decreased L Platelet Morphology Normal Anisocytosis 1+ Troponin I 0.183 ng/mL (0.000-0.056) Stool Occult Blood Pending Thyroid Stimulating Hormone (TSH) Pending Vancomycin Level Trough Pending General: well developed, well nourished Head: normocophalic Neck: no rigidity EENT: benign Neurologic Exam Mental Status: other Cranial Nerves III, IV, : EOMI, pupils Cranial Nerve VII: no facial asymmetry Cranial Nerve IX: normal palate elevation Cranial Nerve XI: SCM symmetric Motor System: normal muscle tone Deep Tendon Reflexes: 2+ bicep (L), 2+ bicep (R), 2+ tricep (L), 2+ tricep (R) , 2+ brachioradialis (L), 2+ brachioradialis (R), 2+ knee (L), 2+ knee (R), 2+ ankle (L), 2+ ankle (R) Stance: normal Gait: stable, normal regular, heel + toe gait Objective Continues to be drowsy only briefly opening eyes to noxious stimuli intermittently and grimacing with equal facial movements. Localizing briskly on left but w/d on RLE and RUE today Impression/Recommendations Problems: (1) Acute encephalopathy Assessment & Plan: CT Brain STAT for increased tone/ rigidity on right side and R pupil 4+ reactive and left pupil 2+ sluggishly reactive to rule out hemorrhage. (2) Deep tissue injury (3) acute toxic encephalopathy Assessment & Plan: Frequent stimulation of patient Q 4 hour neuro obs (4) Altered level of consciousness Assessment & Plan: PT/ OT Eval Na 135-145 OOB to chair as soon as able. Abx as per ID team Maintain normothermia with Tylenol / coolling blanket as need. MRI Brain w/wo contrast EEG as outpatient (5) Sepsis Assessment & Plan: Treat with IV abx as per ID (6) Brain tumor Assessment & Plan: MRI Brain w/ Contrast for investigation of recurrent primary tumor . CT taken in September did not demonstrate mass effect but also not the most sensitive test for detecting intraparenchymal masses. (7) History of CVA (cerebrovascular accident) Assessment & Plan: Dense right plegia at baseline, no rigidity or spasticity noted Localizing x 2 on left side to noxious stimuli but with dense sensory deficit on right side and limited response, although movement of right side is visible. MRI Brain w/wo for investigation of new CVA vs Mass (8) Diabetes mellitus Assessment & Plan: Normoglycemia with ISS (9) Hypertension Assessment & Plan: Maintain SBP<140 with antiHTN meds. CorinneVidya Whitten Oct 12, 2018 01:26
[2018-10-12 04:00] VITALS: BP 118/64
[2018-10-12] MEDS ORDERED: Vancomycin 1.25gm Premix q24h IVPB ONE (04:00)
[2018-10-12 04:41] LABS: HEMATOCRIT 29.8 % (42.0-52.0); HEMOGLOBIN 10.4 G/DL (14.2-18.0); MEAN CORPUSCULAR VOLUME 90 FL (80-99); PLATELET COUNT 103 K/UL (150-450); RED CELL DISTRIBUTION WIDTH 12.6 % (11.6-14.8); WHITE BLOOD COUNT 2.9 K/UL (4.8-10.8)
[2018-10-12 05:09] LABS: % IRON SATURATION 48 % (15-50); IRON 40 ug/dL (50-175); TOTAL IRON BINDING CAPACITY 83 ug/dL (250-450)
[2018-10-12 05:20] LABS: ANION GAP 5 mmol/L (5-15); BLOOD UREA NITROGEN 15 mg/dL (7-18); CALCIUM 8.3 MG/DL (8.5-10.1); CARBON DIOXIDE 33 MMOL/L (21-32); CHLORIDE 100 MMOL/L (98-107); CREATININE 0.5 MG/DL (0.55-1.30); FERRITIN 1470 NG/ML (8-388); POTASSIUM 3.6 MMOL/L (3.5-5.1); SODIUM 138 MMOL/L (136-145)
[2018-10-12] MEDS: Valproic Acid 250mg/5ml Liquid ORAL SCH ×4 (05:35→23:06)
--- NOTE | 2018-10-12 06:34 | General Progress Note ---
Assessment/Plan Problem List: (1) Brain tumor ICD Codes: D49.6 - Neoplasm of unspecified behavior of brain SNOMED: 998357527 (2) Altered level of consciousness ICD Codes: R40.4 - Transient alteration of awareness SNOMED: 6390434 (3) Diabetes mellitus ICD Codes: E11.9 - Type 2 diabetes mellitus without complications SNOMED: 02714261 (4) Hypertension ICD Codes: I10 - Essential (primary) hypertension SNOMED: 98783576 Assessment: continue Januvia as is continue Starlix 60 mg ac tid continue NISS ac / hs Subjective ROS Limited/Unobtainable: Yes Allergies: Coded Allergies: No Known Allergies (Unverified , 09/27/18) All Systems: reviewed and negative except above Subjective events noted Item Value Date Time Glucose Level 171 MG/DL H 10/12/18 0350 Bedside Blood Glucose 152 mg/dl H 10/11/18 2100 Bedside Blood Glucose 210 mg/dl H 10/11/18 1647 Bedside Blood Glucose 121 mg/dl H 10/11/18 1130 Bedside Blood Glucose 204 mg/dl H 10/11/18 0635 Objective Last 24 Hour Vital Signs Date Time Temp Pulse Resp B/P (MAP) Pulse Ox O2 Delivery O2 Flow Rate FiO2 10/12/18 04:00 96.6 80 22 118/64 (82) 100 10/12/18 04:00 Venturi Mask 10.0 Venturi Mask 10.0 10/12/18 04:00 87 10/12/18 00:00 Venturi Mask 10.0 Venturi Mask 10.0 10/12/18 00:00 79 10/12/18 00:00 97.6 79 22 108/60 (76) 100 10/11/18 20:41 90 120/66 10/11/18 20:00 Venturi Mask 10.0 Venturi Mask 10.0 10/11/18 20:00 90 10/11/18 20:00 90 10/11/18 20:00 97.9 90 22 120/66 (84) 100 10/11/18 19:45 Venturi Mask 10.0 45 10/11/18 19:44 100 Venturi Mask 10.0 45 10/11/18 16:00 90 10/11/18 16:00 97.8 92 22 122/67 (85) 100 10/11/18 16:00 Venturi Mask 10.0 Venturi Mask 10.0 10/11/18 12:00 98.9 82 12 103/50 (67) 97 10/11/18 12:00 Venturi Mask 10.0 Venturi Mask 10.0 10/11/18 11:38 82 10/11/18 08:55 92 108/59 10/11/18 08:00 97.0 92 21 108/59 (75) 99 10/11/18 08:00 Venturi Mask 10.0 Venturi Mask 10.0 10/11/18 07:51 89 10/11/18 07:01 100 Venturi Mask 10.0 45 10/11/18 07:01 Venturi Mask 10.0 45 Intake and Output 10/11/18 10/12/18 18:59 06:59 Intake Total 1115.0 ml 110 ml Output Total 300 ml 1000 ml Balance 815.0 ml -890 ml Intake IV Total 985.0 ml 50 ml Other 130 ml 60 ml Output Urine Total 300 ml 1000 ml # Bowel Movements 4 2 Laboratory Tests 10/11/18 08:05: White Blood Count 2.8L, Red Blood Count 3.40L, Hemoglobin 10.8L, Hematocrit 31.0L, Mean Corpuscular Volume 91, Mean Corpuscular Hemoglobin 31.6H, Mean Corpuscular Hemoglobin Concent 34.8, Red Cell Distribution Width 13.0, Platelet Count 102L, Mean Platelet Volume 5.8L, Neutrophils (%) (Auto) , Lymphocytes (%) (Auto) , Monocytes (%) (Auto) , Eosinophils (%) (Auto) , Basophils (%) (Auto) , Differential Total Cells Counted 100, Neutrophils % (Manual) 57, Lymphocytes % ( Manual) 12L, Monocytes % (Manual) 11H, Eosinophils % (Manual) 1, Basophils % ( Manual) 0, Band Neutrophils 19H, Platelet Estimate DecreasedL, Platelet Morphology Normal, Anisocytosis 1+, Sodium Level 138, Potassium Level 3.4L, Chloride Level 101, Carbon Dioxide Level 32, Anion Gap 5, Blood Urea Nitrogen 13 , Creatinine 0.6, Estimat Glomerular Filtration Rate > 60, Glucose Level 135H, Calcium Level 8.3L, Troponin I 0.183H 10/11/18 18:15: Stool Occult Blood [Pending] 10/12/18 01:00: Thyroid Stimulating Hormone (TSH) 0.808, Vancomycin Level Trough 8.9 10/12/18 03:50: White Blood Count 2.9L, Red Blood Count 3.30L, Hemoglobin 10.4L, Hematocrit 29.8L, Mean Corpuscular Volume 90, Mean Corpuscular Hemoglobin 31.5H, Mean Corpuscular Hemoglobin Concent 34.9, Red Cell Distribution Width 12.6, Platelet Count 103L, Mean Platelet Volume 6.2L, Neutrophils (%) (Auto) , Lymphocytes (%) (Auto) , Monocytes (%) (Auto) , Eosinophils (%) (Auto) , Basophils (%) (Auto) , Neutrophils % (Manual) [Pending], Lymphocytes % (Manual) [Pending], Platelet Estimate [Pending], Platelet Morphology [Pending], Sodium Level 138, Potassium Level 3.6, Chloride Level 100, Carbon Dioxide Level 33H, Anion Gap 5, Blood Urea Nitrogen 15, Creatinine 0.5L, Estimat Glomerular Filtration Rate > 60, Glucose Level 171H, Calcium Level 8.3L, Troponin I 0.187H, Hemoglobin A1c 6.8H, Magnesium Level 1.8, Iron Level 40L, Total Iron Binding Capacity 83L, Percent Iron Saturation 48, Unsaturated Iron Binding 43L, Ferritin 1470H, Carcinoembryonic Antigen [Pending], Vitamin B12 Level 1355H, RBC Folate Hemolysate [Pending], Red Blood Cell Folate [Pending], Valproic Acid (Depakene) Level 71 Height (Feet): 5 Height (Inches): 7.00 Weight (Pounds): 131 General Appearance: no apparent distress Neck: normal alignment Cardiovascular: normal peripheral pulses Respiratory/Chest: lungs clear Abdomen: normal bowel sounds Objective Current Medications Medications (Trade) Dose Ordered Sig/Chace Route PRN Reason Start Time Stop Time Status Last Admin Dose Admin Acetaminophen (Tylenol) 650 mg Q4H PRN ORAL T>100.5 10/10/18 13:15 11/09/18 13:14 Albuterol/ Ipratropium (Albuterol/ Ipratropium) 3 ml Q4H PRN HHN Shortness of Breath 10/10/18 13:15 10/15/18 13:14 Carvedilol (Coreg) 12.5 mg EVERY 12 HOURS ORAL 10/10/18 21:00 11/09/18 20:59 10/11/18 20:41 Cefepime HCl 2 gm/ Dextrose 110 ml @ 220 mls/hr EVERY 12 HOURS IV 10/10/18 18:00 10/17/18 17:59 10/11/18 20:37 Dexamethasone (Decadron) 4 mg BID ORAL 10/10/18 18:00 11/09/18 17:59 10/11/18 17:26 Dextrose (Dextrose 50%) 25 ml Q30M PRN IV Hypoglycemia 10/10/18 13:15 11/09/18 13:14 Dextrose (Dextrose 50%) 50 ml Q30M PRN IV Hypoglycemia 10/10/18 13:15 11/09/18 13:14 Finasteride (Proscar) 5 mg DAILY@2100 ORAL 10/10/18 21:00 11/09/18 20:59 10/11/18 20:40 Gadobutrol (Gadavist) 7.5 mmol NOW PRN IV Radiology Procedure 10/10/18 16:30 10/14/18 16:24 Heparin Sodium (Porcine) (Heparin 5000 units/ml) 5,000 units EVERY 12 HOURS SUBQ 10/10/18 21:00 11/09/18 20:59 10/11/18 20:37 Insulin Aspart (NovoLOG) BEFORE MEALS AND HS SUBQ 10/10/18 16:30 11/09/18 16:29 10/11/18 20:40 Lamotrigine (LaMICtal) 50 mg DAILY ORAL 10/11/18 09:00 11/10/18 08:59 10/11/18 08:55 Lorazepam (Ativan 2mg/ml 1ml) 2 mg Q2H PRN IV For Anxiety 10/10/18 13:15 10/17/18 13:14 Morphine Sulfate (Morphine Sulfate) 4 mg Q4H PRN IVP Severe Pain (Pain Scale 7-10) 10/10/18 13:15 10/17/18 13:14 Ondansetron HCl (Zofran) 4 mg Q6H PRN IVP Nausea & Vomiting 10/10/18 13:15 11/09/18 13:14 Polyethylene Glycol (Miralax) 17 gm DAILYPRN PRN ORAL Constipation 10/10/18 13:15 11/09/18 13:14 Promethazine HCl/ Codeine (Phenergan with Codeine) 5 ml Q4H PRN ORAL For Cough 10/10/18 13:15 11/09/18 13:14 Quetiapine Fumarate (SEROquel) 25 mg Q12HR ORAL 10/10/18 21:00 11/09/18 20:59 10/11/18 20:40 Sitagliptin Phosphate (Januvia) 50 mg ACBREAKFAST ORAL 10/11/18 06:30 11/10/18 06:29 10/11/18 05:49 Sodium Chloride 1,000 ml @ 50 mls/hr Q20H IV 10/10/18 14:00 11/09/18 13:59 10/11/18 09:33 Tamsulosin HCl (Flomax) 0.4 mg BEDTIME ORAL 10/10/18 21:00 11/09/18 20:59 10/11/18 20:40 Valproic Acid (Depakene) 500 mg Q6HR ORAL 10/10/18 18:00 11/09/18 17:59 10/12/18 05:35 Vancomycin HCl (Vanco rx to dose) 1 ea DAILY PRN MISC . 10/10/18 13:30 11/09/18 13:29 Richard Lugo MD Oct 12, 2018 06:34
[2018-10-12] MEDS: sitaGLIPtin 50mg tab ORAL SCH (06:38)
[2018-10-12] MEDS: NovoLOG Insulin Flexpen SUBQ SCH ×4 (06:38→20:40)
[2018-10-12 08:00] VITALS: BP 145/85
[2018-10-12] MEDS: Carvedilol 12.5mg tab ORAL SCH ×2 (08:54→20:33)
[2018-10-12] MEDS: Cefepime HCl 2 GM in D5W 110 ML IV SCH (08:55)
[2018-10-12] MEDS: Heparin 5000 units/ml inj SUBQ SCH ×2 (08:57→20:38)
--- NOTE | 2018-10-12 10:17 | Diagnostic Imaging Report ---
Indications: Altered level of consciousness Technique: Spiral acquisitions obtained through the brain. Angled axial and coronal 5 x 5 mm slices were reconstructed. Total dose length product 1390.11 mGycm. CTDI vol(s) 70.38 mGy. Dose reduction achieved using automated exposure control Comparison: For 2018 Findings: Again demonstrated is evidence of prior left temporal craniotomy. There is again demonstrated underlying temporal, parietal opercular, and posterior frontal encephalomalacia, with a single dystrophic calcification again noted. There is age-related enlargement of the ventricles and extra-axial CSF spaces. There is periventricular deep white matter low-attenuation consistent with chronic ischemic change. There is again demonstrated evidence of prior left optic globe cataract surgery. The mastoids are clear. The visualized sinuses are clear. The calvarium is otherwise intact. Findings are unchanged Impression: Chronic and age-related changes as described Postsurgical changes with underlying temporal, parietal, and frontal encephalomalacia. Correlate with surgical history Negative for acute intracranial bleed or mass effect This agrees with the preliminary interpretation provided overnight by [facility] teleradiology service. The CT scanner at [facility] is accredited by the [employer] and the scans are performed using protocols designed to limit radiation exposure to as low as reasonably achievable to attain images of sufficient resolution adequate for diagnostic evaluation.
--- NOTE | 2018-10-12 10:21 | Diagnostic Imaging Report ---
Indication: Cough, shortness of breath Technique: One view of the chest Comparison: 10/10/2018 Findings: Lungs and pleural spaces are clear. Heart size is normal. Interim placement of a nasogastric tube, which is coiled well within the stomach. A band of atelectasis is demonstrated in the left midlung. Heart size is normal. Impression: Minimal left midlung atelectasis. No acute process otherwise Satisfactory nasogastric intubation, also demonstrated on recent abdomen radiograph
--- NOTE | 2018-10-12 10:23 | Pulmonology Progress Note ---
Assessment/Plan Problems: (1) acute toxic encephalopathy (2) Sepsis (3) Brain tumor (4) Sacral decubitus ulcer (5) Hypertension (6) Diabetes mellitus (7) History of CVA (cerebrovascular accident) Assessment/Plan MRI of brain pending swallow study pending f/u cultures continue abx sliding scale monitor BP dvt prophylaxis DC seroquel and morphine Subjective ROS Limited/Unobtainable: No Constitutional: Reports: no symptoms HEENT: Repors: no symptoms Allergies: Coded Allergies: No Known Allergies (Unverified , 09/27/18) Objective Last 24 Hour Vital Signs Date Time Temp Pulse Resp B/P (MAP) Pulse Ox O2 Delivery O2 Flow Rate FiO2 10/12/18 08:54 87 145/85 10/12/18 04:00 96.6 80 22 118/64 (82) 100 10/12/18 04:00 Venturi Mask 10.0 Venturi Mask 10.0 10/12/18 04:00 87 10/12/18 00:00 Venturi Mask 10.0 Venturi Mask 10.0 10/12/18 00:00 79 10/12/18 00:00 97.6 79 22 108/60 (76) 100 10/11/18 20:41 90 120/66 10/11/18 20:00 Venturi Mask 10.0 Venturi Mask 10.0 10/11/18 20:00 90 10/11/18 20:00 90 10/11/18 20:00 97.9 90 22 120/66 (84) 100 10/11/18 19:45 Venturi Mask 10.0 45 10/11/18 19:44 100 Venturi Mask 10.0 45 10/11/18 16:00 90 10/11/18 16:00 97.8 92 22 122/67 (85) 100 10/11/18 16:00 Venturi Mask 10.0 Venturi Mask 10.0 10/11/18 12:00 98.9 82 12 103/50 (67) 97 10/11/18 12:00 Venturi Mask 10.0 Venturi Mask 10.0 10/11/18 11:38 82 Intake and Output 10/11/18 10/12/18 18:59 06:59 Intake Total 1115.0 ml 220 ml Output Total 300 ml 1000 ml Balance 815.0 ml -780 ml Intake IV Total 985.0 ml 160 ml Other 130 ml 60 ml Output Urine Total 300 ml 1000 ml # Bowel Movements 4 2 General Appearance: WD/WN HEENT: normocephalic Respiratory/Chest: chest wall non-tender, lungs clear Cardiovascular: normal peripheral pulses, normal rate Abdomen: normal bowel sounds, soft, non tender Genitourinary: normal external genitalia Extremities: no clubbing Skin: no lesions Microbiology Date/Time Source Procedure Growth Status 10/10/18 11:00 Blood Blood Culture - Preliminary Gram Positive Cocci Resulted 10/10/18 11:00 Blood Blood Culture - Preliminary Gram Positive Cocci Resulted 10/10/18 14:30 Sputum Gram Stain - Final Resulted 10/10/18 14:30 Sputum Culture - Preliminary Staphylococcus Aureus Usual Respiratory Ameena Resulted 10/10/18 12:21 Nasal Nares MRSA Culture - Final NO METHICILLIN RESISTANT STAPH AUREUS... Complete 10/10/18 12:30 Urine,Clean Catch Urine Culture - Final Escherichia Coli Complete 10/10/18 12:21 Rectum VRE Culture - Final NO VANCOMYCIN RESISTANT ENTEROCOCCUS ... Complete 10/10/18 12:21 Rectum - Final NO CARBAPENEM-RESISTANT ENTEROBACTERI... Complete Laboratory Tests 10/11/18 18:15: Stool Occult Blood Negative 10/12/18 01:00: Thyroid Stimulating Hormone (TSH) 0.808, Vancomycin Level Trough 8.9 10/12/18 03:50: White Blood Count 2.9L, Red Blood Count 3.30L, Hemoglobin 10.4L, Hematocrit 29.8L, Mean Corpuscular Volume 90, Mean Corpuscular Hemoglobin 31.5H, Mean Corpuscular Hemoglobin Concent 34.9, Red Cell Distribution Width 12.6, Platelet Count 103L, Mean Platelet Volume 6.2L, Neutrophils (%) (Auto) , Lymphocytes (%) (Auto) , Monocytes (%) (Auto) , Eosinophils (%) (Auto) , Basophils (%) (Auto) , Differential Total Cells Counted 100, Neutrophils % (Manual) 90H, Lymphocytes % (Manual) 4L, Monocytes % (Manual) 3, Eosinophils % (Manual) 0, Basophils % ( Manual) 0, Band Neutrophils 3, Platelet Estimate DecreasedL, Platelet Morphology Normal, Sodium Level 138, Potassium Level 3.6, Chloride Level 100, Carbon Dioxide Level 33H, Anion Gap 5, Blood Urea Nitrogen 15, Creatinine 0.5L, Estimat Glomerular Filtration Rate > 60, Glucose Level 171H, Hemoglobin A1c 6.8H , Calcium Level 8.3L, Magnesium Level 1.8, Iron Level 40L, Total Iron Binding Capacity 83L, Percent Iron Saturation 48, Unsaturated Iron Binding 43L, Ferritin 1470H, Troponin I 0.187H, Carcinoembryonic Antigen [Pending], Vitamin B12 Level 1355H, RBC Folate Hemolysate [Pending], Red Blood Cell Folate [Pending ], Valproic Acid (Depakene) Level 71 10/12/18 06:51: Arterial Blood pH 7.512H, Arterial Blood Partial Pressure CO2 42.3, Arterial Blood Partial Pressure O2 108.4H, Arterial Blood HCO3 33.1H, Arterial Blood Oxygen Saturation 97.5, Arterial Blood Base Excess 9.3*H, Martell Test Positive Current Medications Medications (Trade) Dose Ordered Sig/Chace Route PRN Reason Start Time Stop Time Status Last Admin Dose Admin Acetaminophen (Tylenol) 650 mg Q4H PRN ORAL T>100.5 10/10/18 13:15 11/09/18 13:14 Albuterol/ Ipratropium (Albuterol/ Ipratropium) 3 ml Q4H PRN HHN Shortness of Breath 10/10/18 13:15 10/15/18 13:14 Carvedilol (Coreg) 12.5 mg EVERY 12 HOURS ORAL 10/10/18 21:00 11/09/18 20:59 10/12/18 08:54 Cefepime HCl 2 gm/ Dextrose 110 ml @ 220 mls/hr EVERY 12 HOURS IV 10/10/18 18:00 10/17/18 17:59 10/12/18 08:55 Dexamethasone (Decadron) 4 mg BID ORAL 10/10/18 18:00 11/09/18 17:59 10/12/18 08:51 Dextrose (Dextrose 50%) 25 ml Q30M PRN IV Hypoglycemia 10/10/18 13:15 11/09/18 13:14 Dextrose (Dextrose 50%) 50 ml Q30M PRN IV Hypoglycemia 10/10/18 13:15 11/09/18 13:14 Finasteride (Proscar) 5 mg DAILY@2100 ORAL 10/10/18 21:00 11/09/18 20:59 10/11/18 20:40 Gadobutrol (Gadavist) 7.5 mmol NOW PRN IV Radiology Procedure 10/10/18 16:30 10/14/18 16:24 Heparin Sodium (Porcine) (Heparin 5000 units/ml) 5,000 units EVERY 12 HOURS SUBQ 10/10/18 21:00 11/09/18 20:59 10/12/18 08:57 Insulin Aspart (NovoLOG) BEFORE MEALS AND HS SUBQ 10/10/18 16:30 11/09/18 16:29 10/12/18 06:38 Lamotrigine (LaMICtal) 50 mg DAILY ORAL 10/11/18 09:00 11/10/18 08:59 10/12/18 08:55 Lorazepam (Ativan 2mg/ml 1ml) 2 mg Q2H PRN IV For Anxiety 10/10/18 13:15 10/17/18 13:14 Morphine Sulfate (Morphine Sulfate) 4 mg Q4H PRN IVP Severe Pain (Pain Scale 7-10) 10/10/18 13:15 10/17/18 13:14 Ondansetron HCl (Zofran) 4 mg Q6H PRN IVP Nausea & Vomiting 10/10/18 13:15 11/09/18 13:14 Polyethylene Glycol (Miralax) 17 gm DAILYPRN PRN ORAL Constipation 10/10/18 13:15 11/09/18 13:14 Promethazine HCl/ Codeine (Phenergan with Codeine) 5 ml Q4H PRN ORAL For Cough 10/10/18 13:15 11/09/18 13:14 Quetiapine Fumarate (SEROquel) 25 mg Q12HR ORAL 10/10/18 21:00 11/09/18 20:59 10/11/18 20:40 Sitagliptin Phosphate (Januvia) 50 mg ACBREAKFAST ORAL 10/11/18 06:30 11/10/18 06:29 10/12/18 06:38 Sodium Chloride 1,000 ml @ 50 mls/hr Q20H IV 10/10/18 14:00 11/09/18 13:59 10/11/18 09:33 Tamsulosin HCl (Flomax) 0.4 mg BEDTIME ORAL 10/10/18 21:00 11/09/18 20:59 10/11/18 20:40 Valproic Acid (Depakene) 500 mg Q6HR ORAL 10/10/18 18:00 11/09/18 17:59 10/12/18 05:35 Vancomycin HCl (Vanco rx to dose) 1 ea DAILY PRN MISC . 10/10/18 13:30 11/09/18 13:29 Raul Feng MD Oct 12, 2018 10:23
--- NOTE | 2018-10-12 11:13 | Diagnostic Imaging Report ---
APPROVED REPORT CPT Code: 31742 Present Symptoms Shortness of breath BILATERAL: Imaging reveals a patent deep venous system bilaterally. There is no evidence of thrombus within the common femoral, superficial femoral, popliteal or tibial segments. The greater saphenous veins are within normal limits. Doppler indicates normal spontaneous flow within these segments. INCIDENTAL FINDING: Large Bakers cyst noted near the right popliteal area, measuring (3.0 cm x 1.3 cm).
[2018-10-12 12:00] VITALS: BP 131/67
--- NOTE | 2018-10-12 12:37 | Cardiology Report ---
APPROVED REPORT EKG Measurement Heart [id number] Normal sinus rhythm Inferior infarct, age undetermined Anteroseptal infarct, age undetermined Abnormal ECG
--- NOTE | 2018-10-12 12:39 | Surgery Progress Note ---
Surgery Progress Note Subjective Additional Comments gas poor. comfortable appearing. labs noted. exam unchanged. Objective Last 24 Hour Vital Signs Date Time Temp Pulse Resp B/P (MAP) Pulse Ox O2 Delivery O2 Flow Rate FiO2 10/12/18 08:54 87 145/85 10/12/18 08:00 97.3 84 15 145/85 (105) 95 10/12/18 08:00 82 10/12/18 04:00 96.6 80 22 118/64 (82) 100 10/12/18 04:00 Venturi Mask 10.0 Venturi Mask 10.0 10/12/18 04:00 87 10/12/18 00:00 Venturi Mask 10.0 Venturi Mask 10.0 10/12/18 00:00 79 10/12/18 00:00 97.6 79 22 108/60 (76) 100 10/11/18 20:41 90 120/66 10/11/18 20:00 Venturi Mask 10.0 Venturi Mask 10.0 10/11/18 20:00 90 10/11/18 20:00 90 10/11/18 20:00 97.9 90 22 120/66 (84) 100 10/11/18 19:45 Venturi Mask 10.0 45 10/11/18 19:44 100 Venturi Mask 10.0 45 10/11/18 16:00 90 10/11/18 16:00 97.8 92 22 122/67 (85) 100 10/11/18 16:00 Venturi Mask 10.0 Venturi Mask 10.0 I&O Intake and Output 10/11/18 10/12/18 18:59 06:59 Intake Total 1115.0 ml 220 ml Output Total 300 ml 1000 ml Balance 815.0 ml -780 ml Intake IV Total 985.0 ml 160 ml Other 130 ml 60 ml Output Urine Total 300 ml 1000 ml # Bowel Movements 4 2 Dressing: saturated Wound: other Drains: other Cardiovascular: RSR Respiratory: decreased breath sounds Abdomen: soft, present bowel sounds, non-distended Extremities: no cyanosis Laboratory Tests Test 10/11/18 18:15 10/12/18 01:00 10/12/18 03:50 10/12/18 06:51 Stool Occult Blood Negative (NEGATIVE) Thyroid Stimulating Hormone (TSH) 0.808 uiU/mL (0.358-3.740) Vancomycin Level Trough 8.9 ug/mL (5.0-12.0) White Blood Count 2.9 K/UL (4.8-10.8) L Red Blood Count 3.30 M/UL (4.70-6.10) L Hemoglobin 10.4 G/DL (14.2-18.0) L Hematocrit 29.8 % (42.0-52.0) L Mean Corpuscular Volume 90 FL (80-99) Mean Corpuscular Hemoglobin 31.5 PG (27.0-31.0) H Mean Corpuscular Hemoglobin Concent 34.9 G/DL (32.0-36.0) Red Cell Distribution Width 12.6 % (11.6-14.8) Platelet Count 103 K/UL (150-450) L Mean Platelet Volume 6.2 FL (6.5-10.1) L Neutrophils (%) (Auto) % (45.0-75.0) Lymphocytes (%) (Auto) % (20.0-45.0) Monocytes (%) (Auto) % (1.0-10.0) Eosinophils (%) (Auto) % (0.0-3.0) Basophils (%) (Auto) % (0.0-2.0) Differential Total Cells Counted 100 Neutrophils % (Manual) 90 % (45-75) H Lymphocytes % (Manual) 4 % (20-45) L Monocytes % (Manual) 3 % (1-10) Eosinophils % (Manual) 0 % (0-3) Basophils % (Manual) 0 % (0-2) Band Neutrophils 3 % (0-8) Platelet Estimate Decreased L Platelet Morphology Normal Sodium Level 138 MMOL/L (136-145) Potassium Level 3.6 MMOL/L (3.5-5.1) Chloride Level 100 MMOL/L (98-107) Carbon Dioxide Level 33 MMOL/L (21-32) H Anion Gap 5 mmol/L (5-15) Blood Urea Nitrogen 15 mg/dL (7-18) Creatinine 0.5 MG/DL (0.55-1.30) L Estimat Glomerular Filtration Rate > 60 mL/min (>60) Glucose Level 171 MG/DL (74-106) H Hemoglobin A1c 6.8 % (4.3-6.0) H Calcium Level 8.3 MG/DL (8.5-10.1) L Magnesium Level 1.8 MG/DL (1.8-2.4) Iron Level 40 ug/dL (50-175) L Total Iron Binding Capacity 83 ug/dL (250-450) L Percent Iron Saturation 48 % (15-50) Unsaturated Iron Binding 43 ug/dL (112-346) L Ferritin 1470 NG/ML (8-388) H Troponin I 0.187 ng/mL (0.000-0.056) Carcinoembryonic Antigen Pending Vitamin B12 Level 1355 PG/ML (193-986) H RBC Folate Hemolysate Pending Red Blood Cell Folate Pending Valproic Acid (Depakene) Level 71 MCG/ML (50-100) Arterial Blood pH 7.512 (7.350-7.450) Arterial Blood Partial Pressure CO2 42.3 mmHg (35.0-45.0) Arterial Blood Partial Pressure O2 108.4 mmHg (75.0-100.0) H Arterial Blood HCO3 33.1 mmol/L (22.0-26.0) H Arterial Blood Oxygen Saturation 97.5 % (95-100) Arterial Blood Base Excess 9.3 (-2-2) *H Martell Test Positive Plan Problems: (1) Acute encephalopathy (2) Sacral decubitus ulcer Assessment & Plan: Pt presented on admission with worsening sacral decubitus ulcer. Initially only a DTPI which has since opened and evolved into unstageable necrotic sacral decubitus ulcer. seems to likely be down to coccyx with periwound necrosis of the dermal aspecs and surrounding deep tissue injury. wound fluctuant,purple with maroon borders. no significant drainage or signs of active infection. approximately 12 x 9 cm now. Non-blanchable erythema without induration periwound. Bilat elbows and bilat heels are pink and blanchable.No other skin concerns noted. Tx.Plan: Cleanse sacral wound with Saline.Apply Triad Paste to periwound, apply hydrogel gauze to open portions of wound and Cover with Optifoam drsg. Change day and prn. Apply Cavilon Skin Barrier to both heels. Cover each heel with Optifoam drsg. Change every 7 days and prn. APM/ADRIAN Mattress overlay. Reposition at least every 2 hours or as tolerated. Off-load heels with pillow. Will discuss findings with patients family. recommend excisional debridement of wound for better evaluation and to allow for healing in such early stage. thank you (3) Deep tissue injury (4) Valproic acid toxicity (5) acute toxic encephalopathy (6) Sepsis Assessment & Plan: unlikely related to wound as not acutely infected cont with Rx as ordered will follow with recs trend labs thank you (7) Diabetes mellitus (8) Hypertension Harry Rivas Oct 12, 2018 12:39
--- NOTE | 2018-10-12 14:47 | Consultation ---
History of Present Illness General Date patient seen: Oct 12, 2018 Chief Complaint: Altered Level of Consciousness Referring physician: Dr. 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 Upon admission found to be tachycardic to 118, BP 103/69, lactic acidosis to 3.6, leukopenic and elevated troponin. U/a was also concerning for infection. He required 100% NRB mask. Allergies: Coded Allergies: No Known Allergies (Unverified , 09/27/18) Medication History Scheduled Apixaban (Eliquis), 5 MG PO BID, (Reported) Atorvastatin (Lipitor), 80 MG ORAL BEDTIME, (Reported) Carvedilol (Coreg), 25 MG ORAL EVERY 12 HOURS Carvedilol (Coreg), 12.5 MG ORAL EVERY 12 HOURS, (Reported) Cholecalciferol (Vitamin D3)* (Vitamin D*), 50,000 UNITS ORAL QWEEK, (Reported) Cholecalciferol (Vitamin D3)* (Vitamin D*), 50,000 UNITS ORAL ONCE A WEEK, ( Reported) Dexamethasone (Dexamethasone), 4 MG ORAL DAILY Dexamethasone* (Decadron*), 4 MG PO BID, (Reported) Docusate Sodium (Docusate Sodium), 100 MG ORAL DAILY, (Reported) Finasteride (Finasteride), 5 MG ORAL DAILY@2100 Lacosamide (Vimpat), 200 MG PO BID, (Reported) Lamotrigine* (Lamictal*), 50 MG ORAL DAILY Losartan Potassium (Losartan Potassium), 25 MG ORAL DAILY, (Reported) Metformin Hcl (Glucophage), 1,000 MG ORAL BID, (Reported) Perampanel (Fycompa), 4 MG PO DAILY, (Reported) Polyethylene Glycol 3350* (Miralax*), 17 GM ORAL DAILY, (Reported) Polyethylene Glycol 3350* (Miralax*), 17 GM ORAL DAILY, (Reported) Quetiapine Fumarate* (Seroquel*), 25 MG ORAL Q12HR Ranitidine Hcl* (Zantac*), 150 MG ORAL DAILY, (Reported) Sitagliptin (Januvia), 50 MG ORAL DAILY Tamsulosin HCl (Flomax), 0.4 MG ORAL BEDTIME Scheduled PRN Acetaminophen* (Acetaminophen 325MG Tablet*), 650 MG ORAL Q6H PRN for For Pain, (Reported) Miscellaneous Medications Divalproex Sodium (Depakote), 500 MG PO, (Reported) Divalproex Sodium (Divalproex Sodium), 1,500 MG PO, (Reported) Divalproex Sodium (Depakote), 1,500 MG PO, (Reported) Insulin Lispro (Humalog), 0 SUBQ, (Reported) Temozolomide (Temozolomide), 5 MG PO, (Reported) Patient History Healthcare decision maker Resuscitation status Full Code Advanced Directive on File Patient History Narrative Pmhx: as above Shx: The patient is . Lives at [facility], as above. The patient denies tobacco or alcohol use. Fhx: non contributory Review of Systems All Other Systems: negative except mentioned in HPI Physical Exam Physical Exam Narrative GENERAL: The patient is well-developed and well-nourished male, in moderate respiratory distress. HEENT: Eyes, pupils are equal and responsive to light and accommodation. Extraocular movements are intact. NECK: Supple without lymphadenopathy. CHEST: Lungs are clear to auscultation bilaterally without wheezes or rales. CARDIOVASCULAR: Regular rhythm and rate. S1 and S2 normal without murmurs, rubs, or gallops. ABDOMEN: Soft, nontender, and nondistended. Positive bowel sounds. No evidence of hepatosplenomegaly.Currently, no rebound or guarding noted. EXTREMITIES: Negative for clubbing, cyanosis, or edema. NEUROLOGICAL: Cranial nerves II through XII are grossly intact without focal deficits Last 24 Hour Vital Signs Date Time Temp Pulse Resp B/P (MAP) Pulse Ox O2 Delivery O2 Flow Rate FiO2 10/12/18 12:00 Venturi Mask 10.0 Venturi Mask 10.0 10/12/18 08:54 87 145/85 10/12/18 08:00 Venturi Mask 10.0 Venturi Mask 10.0 10/12/18 08:00 97.3 84 15 145/85 (105) 95 10/12/18 08:00 82 10/12/18 04:00 96.6 80 22 118/64 (82) 100 10/12/18 04:00 Venturi Mask 10.0 Venturi Mask 10.0 10/12/18 04:00 87 10/12/18 00:00 Venturi Mask 10.0 Venturi Mask 10.0 10/12/18 00:00 79 10/12/18 00:00 97.6 79 22 108/60 (76) 100 10/11/18 20:41 90 120/66 10/11/18 20:00 Venturi Mask 10.0 Venturi Mask 10.0 10/11/18 20:00 90 10/11/18 20:00 90 10/11/18 20:00 97.9 90 22 120/66 (84) 100 10/11/18 19:45 Venturi Mask 10.0 45 10/11/18 19:44 100 Venturi Mask 10.0 45 10/11/18 16:00 90 10/11/18 16:00 97.8 92 22 122/67 (85) 100 10/11/18 16:00 Venturi Mask 10.0 Venturi Mask 10.0 Intake and Output 10/11/18 10/12/18 18:59 06:59 Intake Total 1115.0 ml 220 ml Output Total 300 ml 1000 ml Balance 815.0 ml -780 ml Intake IV Total 985.0 ml 160 ml Other 130 ml 60 ml Output Urine Total 300 ml 1000 ml # Bowel Movements 4 2 Laboratory Tests Test 10/11/18 18:15 10/12/18 01:00 10/12/18 03:50 10/12/18 06:51 Stool Occult Blood Negative (NEGATIVE) Thyroid Stimulating Hormone (TSH) 0.808 uiU/mL (0.358-3.740) Vancomycin Level Trough 8.9 ug/mL (5.0-12.0) White Blood Count 2.9 K/UL (4.8-10.8) L Red Blood Count 3.30 M/UL (4.70-6.10) L Hemoglobin 10.4 G/DL (14.2-18.0) L Hematocrit 29.8 % (42.0-52.0) L Mean Corpuscular Volume 90 FL (80-99) Mean Corpuscular Hemoglobin 31.5 PG (27.0-31.0) H Mean Corpuscular Hemoglobin Concent 34.9 G/DL (32.0-36.0) Red Cell Distribution Width 12.6 % (11.6-14.8) Platelet Count 103 K/UL (150-450) L Mean Platelet Volume 6.2 FL (6.5-10.1) L Neutrophils (%) (Auto) % (45.0-75.0) Lymphocytes (%) (Auto) % (20.0-45.0) Monocytes (%) (Auto) % (1.0-10.0) Eosinophils (%) (Auto) % (0.0-3.0) Basophils (%) (Auto) % (0.0-2.0) Differential Total Cells Counted 100 Neutrophils % (Manual) 90 % (45-75) H Lymphocytes % (Manual) 4 % (20-45) L Monocytes % (Manual) 3 % (1-10) Eosinophils % (Manual) 0 % (0-3) Basophils % (Manual) 0 % (0-2) Band Neutrophils 3 % (0-8) Platelet Estimate Decreased L Platelet Morphology Normal Sodium Level 138 MMOL/L (136-145) Potassium Level 3.6 MMOL/L (3.5-5.1) Chloride Level 100 MMOL/L (98-107) Carbon Dioxide Level 33 MMOL/L (21-32) H Anion Gap 5 mmol/L (5-15) Blood Urea Nitrogen 15 mg/dL (7-18) Creatinine 0.5 MG/DL (0.55-1.30) L Estimat Glomerular Filtration Rate > 60 mL/min (>60) Glucose Level 171 MG/DL (74-106) H Hemoglobin A1c 6.8 % (4.3-6.0) H Calcium Level 8.3 MG/DL (8.5-10.1) L Magnesium Level 1.8 MG/DL (1.8-2.4) Iron Level 40 ug/dL (50-175) L Total Iron Binding Capacity 83 ug/dL (250-450) L Percent Iron Saturation 48 % (15-50) Unsaturated Iron Binding 43 ug/dL (112-346) L Ferritin 1470 NG/ML (8-388) H Troponin I 0.187 ng/mL (0.000-0.056) Carcinoembryonic Antigen Pending Vitamin B12 Level 1355 PG/ML (193-986) H RBC Folate Hemolysate Pending Red Blood Cell Folate Pending Valproic Acid (Depakene) Level 71 MCG/ML (50-100) Arterial Blood pH 7.512 (7.350-7.450) Arterial Blood Partial Pressure CO2 42.3 mmHg (35.0-45.0) Arterial Blood Partial Pressure O2 108.4 mmHg (75.0-100.0) H Arterial Blood HCO3 33.1 mmol/L (22.0-26.0) H Arterial Blood Oxygen Saturation 97.5 % (95-100) Arterial Blood Base Excess 9.3 (-2-2) *H Martell Test Positive Height (Feet): 5 Height (Inches): 7.00 Weight (Pounds): 131 Medications Current Medications Medications (Trade) Dose Ordered Sig/Chace Route PRN Reason Start Time Stop Time Status Last Admin Dose Admin Acetaminophen (Tylenol) 650 mg Q4H PRN ORAL T>100.5 10/10/18 13:15 11/09/18 13:14 Albuterol/ Ipratropium (Albuterol/ Ipratropium) 3 ml Q4H PRN HHN Shortness of Breath 10/10/18 13:15 10/15/18 13:14 Carvedilol (Coreg) 12.5 mg EVERY 12 HOURS ORAL 10/10/18 21:00 11/09/18 20:59 10/12/18 08:54 Cefepime HCl 2 gm/ Dextrose 110 ml @ 220 mls/hr EVERY 12 HOURS IV 10/10/18 18:00 10/17/18 17:59 10/12/18 08:55 Dexamethasone (Decadron) 4 mg BID ORAL 10/10/18 18:00 11/09/18 17:59 10/12/18 08:51 Dextrose (Dextrose 50%) 25 ml Q30M PRN IV Hypoglycemia 10/10/18 13:15 11/09/18 13:14 Dextrose (Dextrose 50%) 50 ml Q30M PRN IV Hypoglycemia 10/10/18 13:15 11/09/18 13:14 Finasteride (Proscar) 5 mg DAILY@2100 ORAL 10/10/18 21:00 11/09/18 20:59 10/11/18 20:40 Gadobutrol (Gadavist) 7.5 mmol NOW PRN IV Radiology Procedure 10/10/18 16:30 10/14/18 16:24 Heparin Sodium (Porcine) (Heparin 5000 units/ml) 5,000 units EVERY 12 HOURS SUBQ 10/10/18 21:00 11/09/18 20:59 10/12/18 08:57 Insulin Aspart (NovoLOG) BEFORE MEALS AND HS SUBQ 10/10/18 16:30 11/09/18 16:29 10/12/18 06:38 Lamotrigine (LaMICtal) 50 mg DAILY ORAL 10/11/18 09:00 11/10/18 08:59 10/12/18 08:55 Lorazepam (Ativan 2mg/ml 1ml) 2 mg Q2H PRN IV For Anxiety 10/10/18 13:15 10/17/18 13:14 10/12/18 13:41 Ondansetron HCl (Zofran) 4 mg Q6H PRN IVP Nausea & Vomiting 10/10/18 13:15 11/09/18 13:14 Polyethylene Glycol (Miralax) 17 gm DAILYPRN PRN ORAL Constipation 10/10/18 13:15 11/09/18 13:14 Promethazine HCl/ Codeine (Phenergan with Codeine) 5 ml Q4H PRN ORAL For Cough 10/10/18 13:15 11/09/18 13:14 Sitagliptin Phosphate (Januvia) 50 mg ACBREAKFAST ORAL 10/11/18 06:30 11/10/18 06:29 10/12/18 06:38 Sodium Chloride 1,000 ml @ 50 mls/hr Q20H IV 10/10/18 14:00 11/09/18 13:59 10/11/18 09:33 Tamsulosin HCl (Flomax) 0.4 mg BEDTIME ORAL 10/10/18 21:00 11/09/18 20:59 10/11/18 20:40 Valproic Acid (Depakene) 500 mg Q6HR ORAL 10/10/18 18:00 11/09/18 17:59 10/12/18 12:12 Vancomycin HCl (Vanco rx to dose) 1 ea DAILY PRN MISC . 10/10/18 13:30 11/09/18 13:29 Assessment/Plan Assessment: Abx: IV vancomycin 10/10- Cefepime 10/10- Assessment: Sepsis Probable UTI -u/a wbc 30-40, nit neg, leuk +3; ucx >100K E.coli (R Cipro/Levo; otherwise) Gram positive bacteremia, high grade- r/o S. aureus- -10/10 BCx 09/24 GPC in clusters Infected Sacral decubitus ulcer (necrotic tissue, foul-odor smelling)- r/o OM Afebrile Pancytopenia Acute respiratory failure on VM- no obvious PNA on CXR -CXR: Minimal left midlung atelectasis. No acute process otherwise Satisfactory nasogastric intubation, also demonstrated on recent abdomen radiograph -sp cx S.aureus Acute encephalopathy -CT brain wo: Chronic and age-related changes as described. Postsurgical changes with underlying temporal, parietal, and frontal encephalomalacia. 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 Will continue to follow along with you. Discussed with Brandie Sharpe M.D. Oct 12, 2018 14:47
--- NOTE | 2018-10-12 15:23 | Diagnostic Imaging Report ---
Indication: Altered level of consciousness, abnormal recent head CT Technique: sagittal T1 fast spin echo, axial T1 and T2 FLAIR PROPELLER, axial T2 FS PROPELLER, T2* GRE, axial diffusion weighted images, post contrast axial and coronal T1 FLAIR PROPELLER images. ADC and exponential ADC maps generated Comparison: Head CT dated 10/12/2018. No comparison MRI Findings motion artifact degrades several sequences, particularly the postcontrast sequences. Small left temporal cranial defect is better appreciated on the previous CT scan. There is underlying encephalomalacia of the temporal lobe, extending into the parietal and frontal opercula, also demonstrated on recent CT. There are peripheral areas of susceptibility artifact seen on the GRE images, indicating old peripheral petechial hemorrhages. No acute intracranial hemorrhage nor edema. No mass effect nor midline shift.. No abnormal areas of restricted diffusion to suggest acute infarction. No abnormal contrast enhancement. There is age-related enlargement of the ventricles and extra axial CSF spaces. There is fairly extensive periventricular deep white matter low-attenuation, consistent with chronic microvascular ischemic change. There is evidence of prior cataract surgery on the left. The left internal carotid demonstrates presence of signal rather than a flow void. The included sinuses are clear.. . Impression: Encephalomalacia of the left anterior temporal lobe and adjacent frontal and parietal opercula; reportedly, this was for resection of an oligodendroglioma. No contrast enhancement to suggest recurrent tumor is evident currently. There is evidence of old peripheral hemorrhage, presumably related to the prior surgery. Absence of left internal carotid flow void, presumably indicating left internal carotid artery occlusion, acuity indeterminate Negative for acute intracranial bleed, mass effect, infarct, or contrast enhancing lesion Chronic and age-related changes, as described Findings discussed by phone with Dr. Feng at the time of interpretation
[2018-10-12 16:00] VITALS: BP 108/68
[2018-10-12] MEDS: cefTRIAXone 2 GM in D5W 55 ML IVPB SCH (16:46)
--- NOTE | 2018-10-12 18:24 | Internal Med Progress Note ---
Subjective Date of Service: Oct 12, 2018 Physician Name Jesus Kidd Attending Physician Camacho Braun MD Current Medications Medications (Trade) Dose Ordered Sig/Chace Route PRN Reason Start Time Stop Time Status Last Admin Dose Admin Acetaminophen (Tylenol) 650 mg Q4H PRN ORAL T>100.5 10/10/18 13:15 11/09/18 13:14 Albuterol/ Ipratropium (Albuterol/ Ipratropium) 3 ml Q4H PRN HHN Shortness of Breath 10/10/18 13:15 10/15/18 13:14 Carvedilol (Coreg) 12.5 mg EVERY 12 HOURS ORAL 10/10/18 21:00 11/09/18 20:59 10/12/18 08:54 Ceftriaxone Sodium 2 gm/ Dextrose 55 ml @ 110 mls/hr Q24H IVPB 10/12/18 16:00 10/19/18 15:59 10/12/18 16:46 Dexamethasone (Decadron) 4 mg BID ORAL 10/10/18 18:00 11/09/18 17:59 10/12/18 18:11 Dextrose (Dextrose 50%) 25 ml Q30M PRN IV Hypoglycemia 10/10/18 13:15 11/09/18 13:14 Dextrose (Dextrose 50%) 50 ml Q30M PRN IV Hypoglycemia 10/10/18 13:15 11/09/18 13:14 Finasteride (Proscar) 5 mg DAILY@2100 ORAL 10/10/18 21:00 11/09/18 20:59 10/11/18 20:40 Gadobutrol (Gadavist) 7.5 mmol NOW PRN IV Radiology Procedure 10/10/18 16:30 10/14/18 16:24 Heparin Sodium (Porcine) (Heparin 5000 units/ml) 5,000 units EVERY 12 HOURS SUBQ 10/10/18 21:00 11/09/18 20:59 10/12/18 08:57 Insulin Aspart (NovoLOG) BEFORE MEALS AND HS SUBQ 10/10/18 16:30 11/09/18 16:29 10/12/18 16:52 Lamotrigine (LaMICtal) 50 mg DAILY ORAL 10/11/18 09:00 11/10/18 08:59 10/12/18 08:55 Lorazepam (Ativan 2mg/ml 1ml) 2 mg Q2H PRN IV For Anxiety 10/10/18 13:15 10/17/18 13:14 10/12/18 13:41 Ondansetron HCl (Zofran) 4 mg Q6H PRN IVP Nausea & Vomiting 10/10/18 13:15 11/09/18 13:14 Polyethylene Glycol (Miralax) 17 gm DAILYPRN PRN ORAL Constipation 10/10/18 13:15 11/09/18 13:14 Promethazine HCl/ Codeine (Phenergan with Codeine) 5 ml Q4H PRN ORAL For Cough 10/10/18 13:15 11/09/18 13:14 Sitagliptin Phosphate (Januvia) 50 mg ACBREAKFAST ORAL 10/11/18 06:30 11/10/18 06:29 10/12/18 06:38 Sodium Chloride 1,000 ml @ 50 mls/hr Q20H IV 10/10/18 14:00 11/09/18 13:59 10/11/18 09:33 Tamsulosin HCl (Flomax) 0.4 mg BEDTIME ORAL 10/10/18 21:00 11/09/18 20:59 10/11/18 20:40 Valproic Acid (Depakene) 500 mg Q6HR ORAL 10/10/18 18:00 11/09/18 17:59 10/12/18 18:11 Vancomycin HCl (Vanco rx to dose) 1 ea DAILY PRN MISC . 10/10/18 13:30 11/09/18 13:29 Allergies: Coded Allergies: No Known Allergies (Unverified , 09/27/18) ROS Limited/Unobtainable: Yes Subjective 68 YO M with history of brain cancer admitted with altered mental status. Now UTI and sepsis. Cover for Int Patel-Dr Braun Objective Last Vital Signs Date Time Temp Pulse Resp B/P (MAP) Pulse Ox O2 Delivery O2 Flow Rate FiO2 10/12/18 16:00 97.2 94 23 108/68 (81) 99 10/12/18 16:00 Venturi Mask 10.0 Venturi Mask 10.0 10/11/18 19:45 45 Laboratory Tests Test 10/12/18 01:00 10/12/18 03:50 10/12/18 06:51 Thyroid Stimulating Hormone (TSH) 0.808 uiU/mL (0.358-3.740) Vancomycin Level Trough 8.9 ug/mL (5.0-12.0) White Blood Count 2.9 K/UL (4.8-10.8) L Red Blood Count 3.30 M/UL (4.70-6.10) L Hemoglobin 10.4 G/DL (14.2-18.0) L Hematocrit 29.8 % (42.0-52.0) L Mean Corpuscular Volume 90 FL (80-99) Mean Corpuscular Hemoglobin 31.5 PG (27.0-31.0) H Mean Corpuscular Hemoglobin Concent 34.9 G/DL (32.0-36.0) Red Cell Distribution Width 12.6 % (11.6-14.8) Platelet Count 103 K/UL (150-450) L Mean Platelet Volume 6.2 FL (6.5-10.1) L Neutrophils (%) (Auto) % (45.0-75.0) Lymphocytes (%) (Auto) % (20.0-45.0) Monocytes (%) (Auto) % (1.0-10.0) Eosinophils (%) (Auto) % (0.0-3.0) Basophils (%) (Auto) % (0.0-2.0) Differential Total Cells Counted 100 Neutrophils % (Manual) 90 % (45-75) H Lymphocytes % (Manual) 4 % (20-45) L Monocytes % (Manual) 3 % (1-10) Eosinophils % (Manual) 0 % (0-3) Basophils % (Manual) 0 % (0-2) Band Neutrophils 3 % (0-8) Platelet Estimate Decreased L Platelet Morphology Normal Sodium Level 138 MMOL/L (136-145) Potassium Level 3.6 MMOL/L (3.5-5.1) Chloride Level 100 MMOL/L (98-107) Carbon Dioxide Level 33 MMOL/L (21-32) H Anion Gap 5 mmol/L (5-15) Blood Urea Nitrogen 15 mg/dL (7-18) Creatinine 0.5 MG/DL (0.55-1.30) L Estimat Glomerular Filtration Rate > 60 mL/min (>60) Glucose Level 171 MG/DL (74-106) H Hemoglobin A1c 6.8 % (4.3-6.0) H Calcium Level 8.3 MG/DL (8.5-10.1) L Magnesium Level 1.8 MG/DL (1.8-2.4) Iron Level 40 ug/dL (50-175) L Total Iron Binding Capacity 83 ug/dL (250-450) L Percent Iron Saturation 48 % (15-50) Unsaturated Iron Binding 43 ug/dL (112-346) L Ferritin 1470 NG/ML (8-388) H Troponin I 0.187 ng/mL (0.000-0.056) Carcinoembryonic Antigen Pending Vitamin B12 Level 1355 PG/ML (193-986) H RBC Folate Hemolysate Pending Red Blood Cell Folate Pending Valproic Acid (Depakene) Level 71 MCG/ML (50-100) Arterial Blood pH 7.512 (7.350-7.450) Arterial Blood Partial Pressure CO2 42.3 mmHg (35.0-45.0) Arterial Blood Partial Pressure O2 108.4 mmHg (75.0-100.0) H Arterial Blood HCO3 33.1 mmol/L (22.0-26.0) H Arterial Blood Oxygen Saturation 97.5 % (95-100) Arterial Blood Base Excess 9.3 (-2-2) *H Martell Test Positive Microbiology Date/Time Source Procedure Growth Status 10/10/18 11:00 Blood Blood Culture - Preliminary Gram Positive Cocci Resulted 10/10/18 11:00 Blood Blood Culture - Preliminary Gram Positive Cocci Resulted 10/10/18 14:30 Sputum Gram Stain - Final Resulted 10/10/18 14:30 Sputum Culture - Preliminary Staphylococcus Aureus Usual Respiratory Ameena Resulted 10/10/18 12:21 Nasal Nares MRSA Culture - Final NO METHICILLIN RESISTANT STAPH AUREUS... Complete 10/10/18 12:30 Urine,Clean Catch Urine Culture - Final Escherichia Coli Complete 10/10/18 12:21 Rectum VRE Culture - Final NO VANCOMYCIN RESISTANT ENTEROCOCCUS ... Complete 10/10/18 12:21 Rectum - Final NO CARBAPENEM-RESISTANT ENTEROBACTERI... Complete Intake and Output 10/11/18 10/12/18 19:00 07:00 Intake Total 1115.0 ml 220 ml Output Total 300 ml 1000 ml Balance 815.0 ml -780 ml Intake IV Total 985.0 ml 160 ml Other 130 ml 60 ml Output Urine Total 300 ml 1000 ml # Bowel Movements 4 2 Objective PHYSICAL EXAMINATION: GENERAL: The patient is well-developed and well-nourished male, in moderate respiratory distress. HEENT: Eyes, pupils are equal and responsive to light and accommodation. Extraocular movements are intact. NECK: Supple without lymphadenopathy. CHEST: Lungs are clear to auscultation bilaterally without wheezes or rales. CARDIOVASCULAR: Regular rhythm and rate. S1 and S2 normal without murmurs, rubs, or gallops. ABDOMEN: Soft, nontender, and nondistended. Positive bowel sounds. No evidence of hepatosplenomegaly, rebound or guarding noted. EXTREMITIES: Negative for clubbing, cyanosis, or edema. RECTAL/GENITAL: Not performed. NEUROLOGICAL: Cranial nerves II through XII are grossly intact without focal deficits Assessment/Plan Assessment/Plan ASSESSMENT: This is a 68-year-old male. 1. Altered mental status. 2. Urinary tract infection-E. Coli 3. Brain cancer. 4. Seizure disorder. 5. Diabetes type 2. 6. History of cerebrovascular accident. 7. Right hemiparesis. 8. Hypertension. 9. Coronary artery disease. 10. Expressive aphasia. 11. Hypercholesterolemia. 12. Sepsis-gram pos cocci 13 Sacral decubitus ulcer TREATMENT: 1. Altered mental status. This may be secondary to urinary tract infection. Urine culture is pending. The patient has been started empirically on vancomycin and cefepime. Await urine cultures. 2. Urinary tract infection-E.Coli. Urine culture ID and sensitivity is pending. Abx=ceftriaxone per ID follow recommendations of Infectious Diseases. 3. Brain cancer. 4. Seizure disorder. Continue Depakote and Lamictal as above. 5. Diabetes type 2. A NovoLog sliding scale has been instituted. 6. History of cerebrovascular accident. 7. Right hemiparesis. 8. Expressive aphasia. 9. Hypertension. The patient is currently hypotensive. 10. History of coronary artery disease. 11. Sepsis=gram pos cocci; continue vanco per Jesus Armendariz MD Oct 12, 2018 18:24
--- NOTE | 2018-10-12 19:48 | Neurology Progress Note ---
Interim History Interim History ROS Limited/Unobtainable: Yes Events: No evidence of seizures Interim History Patient's Neurooncologist Naldo Wiseman would like to discuss reducing AEDs to improve LOC Review of Systems All Systems: reviewed and negative except above Objective Physical Exam Last Vital Signs Date Time Temp Pulse Resp B/P (MAP) Pulse Ox O2 Delivery O2 Flow Rate FiO2 10/12/18 16:00 97.2 94 23 108/68 (81) 99 10/12/18 16:00 Venturi Mask 10.0 Venturi Mask 10.0 10/11/18 19:45 45 Laboratory Tests Test 10/12/18 01:00 10/12/18 03:50 10/12/18 06:51 Thyroid Stimulating Hormone (TSH) 0.808 uiU/mL (0.358-3.740) Vancomycin Level Trough 8.9 ug/mL (5.0-12.0) White Blood Count 2.9 K/UL (4.8-10.8) L Red Blood Count 3.30 M/UL (4.70-6.10) L Hemoglobin 10.4 G/DL (14.2-18.0) L Hematocrit 29.8 % (42.0-52.0) L Mean Corpuscular Volume 90 FL (80-99) Mean Corpuscular Hemoglobin 31.5 PG (27.0-31.0) H Mean Corpuscular Hemoglobin Concent 34.9 G/DL (32.0-36.0) Red Cell Distribution Width 12.6 % (11.6-14.8) Platelet Count 103 K/UL (150-450) L Mean Platelet Volume 6.2 FL (6.5-10.1) L Neutrophils (%) (Auto) % (45.0-75.0) Lymphocytes (%) (Auto) % (20.0-45.0) Monocytes (%) (Auto) % (1.0-10.0) Eosinophils (%) (Auto) % (0.0-3.0) Basophils (%) (Auto) % (0.0-2.0) Differential Total Cells Counted 100 Neutrophils % (Manual) 90 % (45-75) H Lymphocytes % (Manual) 4 % (20-45) L Monocytes % (Manual) 3 % (1-10) Eosinophils % (Manual) 0 % (0-3) Basophils % (Manual) 0 % (0-2) Band Neutrophils 3 % (0-8) Platelet Estimate Decreased L Platelet Morphology Normal Sodium Level 138 MMOL/L (136-145) Potassium Level 3.6 MMOL/L (3.5-5.1) Chloride Level 100 MMOL/L (98-107) Carbon Dioxide Level 33 MMOL/L (21-32) H Anion Gap 5 mmol/L (5-15) Blood Urea Nitrogen 15 mg/dL (7-18) Creatinine 0.5 MG/DL (0.55-1.30) L Estimat Glomerular Filtration Rate > 60 mL/min (>60) Glucose Level 171 MG/DL (74-106) H Hemoglobin A1c 6.8 % (4.3-6.0) H Calcium Level 8.3 MG/DL (8.5-10.1) L Magnesium Level 1.8 MG/DL (1.8-2.4) Iron Level 40 ug/dL (50-175) L Total Iron Binding Capacity 83 ug/dL (250-450) L Percent Iron Saturation 48 % (15-50) Unsaturated Iron Binding 43 ug/dL (112-346) L Ferritin 1470 NG/ML (8-388) H Troponin I 0.187 ng/mL (0.000-0.056) Carcinoembryonic Antigen Pending Vitamin B12 Level 1355 PG/ML (193-986) H RBC Folate Hemolysate Pending Red Blood Cell Folate Pending Valproic Acid (Depakene) Level 71 MCG/ML (50-100) Arterial Blood pH 7.512 (7.350-7.450) Arterial Blood Partial Pressure CO2 42.3 mmHg (35.0-45.0) Arterial Blood Partial Pressure O2 108.4 mmHg (75.0-100.0) H Arterial Blood HCO3 33.1 mmol/L (22.0-26.0) H Arterial Blood Oxygen Saturation 97.5 % (95-100) Arterial Blood Base Excess 9.3 (-2-2) *H Martell Test Positive General: well developed, well nourished Head: normocophalic Neck: no rigidity EENT: benign Neurologic Exam Mental Status: other - REmains obtunded with intermittent eye opening and preferential gaze to the left - w/d x 4 PERLL - visual joe unable to be obtained but partial hemianopia also suspected on the right side. Impression/Recommendations Problems: (1) Acute encephalopathy Assessment & Plan: Q4 Hour Neuro OBs (2) acute toxic encephalopathy Assessment & Plan: Frequent stimulation of patient Q 4 hour neuro obs (3) Altered level of consciousness Assessment & Plan: PT/ OT Eval Na 135-145 OOB to chair as soon as able. Abx as per ID team Maintain normothermia with Tylenol / coolling blanket as need. MRI Brain w/wo contrast EEG as outpatient (4) Sepsis Assessment & Plan: Treat with IV abx as per ID (5) Brain tumor Assessment & Plan: MRI Brain w/ Contrast for investigation of recurrent primary tumor . CT taken in September did not demonstrate mass effect but also not the most sensitive test for detecting intraparenchymal masses. MRI 10/12/18 Encephalomalacia of the left anterior temporal lobe and adjacent frontal and parietal opercula; reportedly, this was for resection of an oligodendroglioma. No contrast enhancement to suggest recurrent tumor is evident currently. There is evidence of old peripheral hemorrhage, presumably related to the prior surgery. 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 MRI Brain w/wo for investigation of new CVA vs Mass (7) Diabetes mellitus Assessment & Plan: Normoglycemia with ISS (8) Hypertension Assessment & Plan: Maintain SBP<140 with antiHTN meds. 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 No contrast enhancement to suggest recurrent tumor is evident currently. There is evidence of old peripheral hemorrhage, presumably related to the prior surgery. Absence of left internal carotid flow void, presumably indicating left internal carotid artery occlusion, acuity indeterminate Negative for acute intracranial bleed, mass effect, infarct, or contrast enhancing lesion Chronic and age-related changes, as described Possibly recurrent disease Status: stable, not improved Vidya Sun N.P. Oct 12, 2018 19:48
[2018-10-12 20:00] VITALS: BP 137/66
[2018-10-12] MEDS: Tamsulosin 0.4mg cap ORAL SCH (20:34)
[2018-10-13] VITALS (15 sets, daily range): BP systolic 108–159; BP diastolic 66–92
--- NOTE | 2018-10-13 00:35 | Neurology Progress Note ---
Interim History Interim History ROS Limited/Unobtainable: Yes Complaints: Seizure/ AMS Events: None reported - no seizures or changes Review of Systems All Systems: reviewed and negative except above Objective Physical Exam Last Vital Signs Date Time Temp Pulse Resp B/P (MAP) Pulse Ox O2 Delivery O2 Flow Rate FiO2 10/13/18 00:00 97.9 92 23 149/74 (99) 100 10/13/18 00:00 Venturi Mask 10.0 Venturi Mask 10.0 10/11/18 19:45 45 Laboratory Tests Test 10/12/18 01:00 10/12/18 03:50 10/12/18 06:51 Thyroid Stimulating Hormone (TSH) 0.808 uiU/mL (0.358-3.740) Vancomycin Level Trough 8.9 ug/mL (5.0-12.0) White Blood Count 2.9 K/UL (4.8-10.8) L Red Blood Count 3.30 M/UL (4.70-6.10) L Hemoglobin 10.4 G/DL (14.2-18.0) L Hematocrit 29.8 % (42.0-52.0) L Mean Corpuscular Volume 90 FL (80-99) Mean Corpuscular Hemoglobin 31.5 PG (27.0-31.0) H Mean Corpuscular Hemoglobin Concent 34.9 G/DL (32.0-36.0) Red Cell Distribution Width 12.6 % (11.6-14.8) Platelet Count 103 K/UL (150-450) L Mean Platelet Volume 6.2 FL (6.5-10.1) L Neutrophils (%) (Auto) % (45.0-75.0) Lymphocytes (%) (Auto) % (20.0-45.0) Monocytes (%) (Auto) % (1.0-10.0) Eosinophils (%) (Auto) % (0.0-3.0) Basophils (%) (Auto) % (0.0-2.0) Differential Total Cells Counted 100 Neutrophils % (Manual) 90 % (45-75) H Lymphocytes % (Manual) 4 % (20-45) L Monocytes % (Manual) 3 % (1-10) Eosinophils % (Manual) 0 % (0-3) Basophils % (Manual) 0 % (0-2) Band Neutrophils 3 % (0-8) Platelet Estimate Decreased L Platelet Morphology Normal Sodium Level 138 MMOL/L (136-145) Potassium Level 3.6 MMOL/L (3.5-5.1) Chloride Level 100 MMOL/L (98-107) Carbon Dioxide Level 33 MMOL/L (21-32) H Anion Gap 5 mmol/L (5-15) Blood Urea Nitrogen 15 mg/dL (7-18) Creatinine 0.5 MG/DL (0.55-1.30) L Estimat Glomerular Filtration Rate > 60 mL/min (>60) Glucose Level 171 MG/DL (74-106) H Hemoglobin A1c 6.8 % (4.3-6.0) H Calcium Level 8.3 MG/DL (8.5-10.1) L Magnesium Level 1.8 MG/DL (1.8-2.4) Iron Level 40 ug/dL (50-175) L Total Iron Binding Capacity 83 ug/dL (250-450) L Percent Iron Saturation 48 % (15-50) Unsaturated Iron Binding 43 ug/dL (112-346) L Ferritin 1470 NG/ML (8-388) H Troponin I 0.187 ng/mL (0.000-0.056) Carcinoembryonic Antigen Pending Vitamin B12 Level 1355 PG/ML (193-986) H RBC Folate Hemolysate Pending Red Blood Cell Folate Pending Valproic Acid (Depakene) Level 71 MCG/ML (50-100) Arterial Blood pH 7.512 (7.350-7.450) Arterial Blood Partial Pressure CO2 42.3 mmHg (35.0-45.0) Arterial Blood Partial Pressure O2 108.4 mmHg (75.0-100.0) H Arterial Blood HCO3 33.1 mmol/L (22.0-26.0) H Arterial Blood Oxygen Saturation 97.5 % (95-100) Arterial Blood Base Excess 9.3 (-2-2) *H Martell Test Positive General: well developed, well nourished, no acute distress Head: normocophalic, atraumatic Neurologic Exam Mental Status: other - Patient's MS/ LOC - somewhat worse requiring increased stimulation to arouse withdrawal and now triple flexing only on left. Previously was localizing. Speech: other Cranial Nerve II: other Cranial Nerves III, IV, : pupils - Pupils R 4+ and Left is 2 sluggish - no additional correlating deficits Cranial Nerve VII: other Motor System: normal muscle tone, other - Baseline hemiplegia on right side with some preserved movement. Right side with increased tone/ rigidity on exam today. Impression/Recommendations Problems: (1) Acute encephalopathy Assessment & Plan: Stat CT Brain was normal - pupils have returned to PERRL. Likely toxic/ metabolic cause of temporary anisocoria. (2) Deep tissue injury (3) acute toxic encephalopathy Assessment & Plan: Frequent stimulation of patient Q 4 hour neuro obs (4) Altered level of consciousness Assessment & Plan: PT/ OT Eval Na 135-145 OOB to chair as soon as able. Abx as per ID team Maintain normothermia with Tylenol / coolling blanket as need. MRI Brain w/wo contrast EEG as outpatient (5) Sepsis Assessment & Plan: Treat with IV abx as per ID (6) Brain tumor Assessment & Plan: MRI October 12, 2018 Encephalomalacia of the left anterior temporal lobe and adjacent frontal and parietal opercula; reportedly, this was for resection of an oligodendroglioma. No contrast enhancement to suggest recurrent tumor is evident currently. There is evidence of old peripheral hemorrhage, presumably related to the prior surgery. Absence of left internal carotid flow void, presumably indicating left internal carotid artery occlusion, acuity indeterminate Negative for acute intracranial bleed, mass effect, infarct, or contrast enhancing lesion Chronic and age-related changes, as described CT taken in September did not demonstrate mass effect but also not the most sensitive test for detecting intraparenchymal masses. Reduced left ICA blood flow could be a source of ischemia and dysfunction, including expressive/ receptive aphasia increased density of right hemiparesis . May consider CTA Brain but not urgent at the moment given primary diagnosis. Currently on Lamictal 50mg QD and Valproic Acid 500mg Q 6 - could consider dropping doses of lamictal since Valproate dose is not high and now therapeutic at 71. (7) History of CVA (cerebrovascular accident) Assessment & Plan: Dense right plegia at baseline, no rigidity or spasticity noted Localizing x 2 on left side to noxious stimuli but with dense sensory deficit on right side and limited response, although movement of right side is visible. MRI Brain w/wo for investigation of new CVA vs Mass (8) Diabetes mellitus Assessment & Plan: Normoglycemia with ISS (9) Hypertension Assessment & Plan: Maintain SBP<140 with antiHTN meds. Status: stable, not improved Vidya Sun N.P. Oct 13, 2018 00:35
[2018-10-13 04:31] LABS: HEMATOCRIT 29.3 % (42.0-52.0); HEMOGLOBIN 10.3 G/DL (14.2-18.0); MEAN CORPUSCULAR VOLUME 91 FL (80-99); PLATELET COUNT 90 K/UL (150-450); RED BLOOD COUNT 3.24 M/UL (4.70-6.10); RED CELL DISTRIBUTION WIDTH 12.6 % (11.6-14.8); WHITE BLOOD COUNT 2.9 K/UL (4.8-10.8)
[2018-10-13 04:53] LABS: ANION GAP 4 mmol/L (5-15); BLOOD UREA NITROGEN 13 mg/dL (7-18); CALCIUM 8.2 MG/DL (8.5-10.1); CARBON DIOXIDE 34 MMOL/L (21-32); CHLORIDE 98 MMOL/L (98-107); CREATININE 0.4 MG/DL (0.55-1.30); POTASSIUM 3.6 MMOL/L (3.5-5.1); SODIUM 136 MMOL/L (136-145)
[2018-10-13] MEDS: NovoLOG Insulin Flexpen SUBQ SCH ×4 (05:49→20:50)
[2018-10-13] MEDS: Valproic Acid 250mg/5ml Liquid ORAL SCH ×3 (05:50→17:57)
[2018-10-13] MEDS: sitaGLIPtin 50mg tab ORAL SCH (05:50)
--- NOTE | 2018-10-13 06:37 | General Progress Note ---
Assessment/Plan Problem List: (1) Brain tumor ICD Codes: D49.6 - Neoplasm of unspecified behavior of brain SNOMED: 906689256 (2) Altered level of consciousness ICD Codes: R40.4 - Transient alteration of awareness SNOMED: 0664947 (3) Diabetes mellitus ICD Codes: E11.9 - Type 2 diabetes mellitus without complications SNOMED: 56763018 (4) Hypertension ICD Codes: I10 - Essential (primary) hypertension SNOMED: 14732398 Assessment: continue Januvia 50 mg daily continue Starlix 60 mg ac tid continue NISS ac / hs Subjective Allergies: Coded Allergies: No Known Allergies (Unverified , 09/27/18) All Systems: reviewed and negative except above Subjective events noted Item Value Date Time Bedside Blood Glucose 137 mg/dl H 10/13/18 0630 Bedside Blood Glucose 141 mg/dl H 10/12/18 2100 Bedside Blood Glucose 189 mg/dl H 10/12/18 1652 Bedside Blood Glucose 129 mg/dl H 10/12/18 1130 Bedside Blood Glucose 226 mg/dl H 10/12/18 0638 Objective Last 24 Hour Vital Signs Date Time Temp Pulse Resp B/P (MAP) Pulse Ox O2 Delivery O2 Flow Rate FiO2 10/13/18 04:00 98.2 93 20 143/84 (103) 99 10/13/18 04:00 91 10/13/18 04:00 Venturi Mask 10.0 Venturi Mask 10.0 10/13/18 01:00 99 Venturi Mask 10.0 45 10/13/18 01:00 Venturi Mask 10.0 45 10/13/18 00:00 97.9 92 23 149/74 (99) 100 10/13/18 00:00 94 10/13/18 00:00 Venturi Mask 10.0 Venturi Mask 10.0 10/12/18 20:33 90 137/66 10/12/18 20:00 97.6 90 24 137/66 (89) 100 10/12/18 20:00 92 10/12/18 20:00 Venturi Mask 10.0 Venturi Mask 10.0 10/12/18 20:00 92 10/12/18 16:00 97.2 94 23 108/68 (81) 99 10/12/18 16:00 93 10/12/18 16:00 Venturi Mask 10.0 Venturi Mask 10.0 10/12/18 12:00 80 10/12/18 12:00 Venturi Mask 10.0 Venturi Mask 10.0 10/12/18 12:00 97.0 93 26 131/67 (88) 100 10/12/18 08:54 87 145/85 10/12/18 08:00 Venturi Mask 10.0 Venturi Mask 10.0 10/12/18 08:00 97.3 84 15 145/85 (105) 95 10/12/18 08:00 82 Intake and Output 10/12/18 10/13/18 19:00 07:00 Intake Total 715 ml 460 ml Output Total 500 ml 750 ml Balance 215 ml -290 ml Intake Free Water 200 ml IV Total 615 ml 200 ml Tube Feeding 60 ml Other 100 ml Output Urine Total 500 ml 750 ml # Bowel Movements 1 Laboratory Tests 10/12/18 06:51: Arterial Blood pH 7.512H, Arterial Blood Partial Pressure CO2 42.3, Arterial Blood Partial Pressure O2 108.4H, Arterial Blood HCO3 33.1H, Arterial Blood Oxygen Saturation 97.5, Arterial Blood Base Excess 9.3*H, Martell Test Positive 10/13/18 03:05: White Blood Count 2.9L, Red Blood Count 3.24L, Hemoglobin 10.3L, Hematocrit 29.3L, Mean Corpuscular Volume 91, Mean Corpuscular Hemoglobin 31.7H, Mean Corpuscular Hemoglobin Concent 35.0, Red Cell Distribution Width 12.6, Platelet Count 90L, Mean Platelet Volume 6.2L, Neutrophils (%) (Auto) , Lymphocytes (%) ( Auto) , Monocytes (%) (Auto) , Eosinophils (%) (Auto) , Basophils (%) (Auto) , Neutrophils % (Manual) [Pending], Lymphocytes % (Manual) [Pending], Platelet Estimate [Pending], Platelet Morphology [Pending], Sodium Level 136, Potassium Level 3.6, Chloride Level 98, Carbon Dioxide Level 34H, Anion Gap 4L, Blood Urea Nitrogen 13, Creatinine 0.4L, Estimat Glomerular Filtration Rate > 60, Glucose Level 123H, Calcium Level 8.2L Height (Feet): 5 Height (Inches): 7.00 Weight (Pounds): 131 General Appearance: no apparent distress Neck: normal alignment Cardiovascular: normal rate Respiratory/Chest: lungs clear Abdomen: normal bowel sounds Pelvis: normal external exam Objective Current Medications Medications (Trade) Dose Ordered Sig/Chace Route PRN Reason Start Time Stop Time Status Last Admin Dose Admin Acetaminophen (Tylenol) 650 mg Q4H PRN ORAL T>100.5 10/10/18 13:15 11/09/18 13:14 Albuterol/ Ipratropium (Albuterol/ Ipratropium) 3 ml Q4H PRN HHN Shortness of Breath 10/10/18 13:15 10/15/18 13:14 Carvedilol (Coreg) 12.5 mg EVERY 12 HOURS ORAL 10/10/18 21:00 11/09/18 20:59 10/12/18 20:33 Ceftriaxone Sodium 2 gm/ Dextrose 55 ml @ 110 mls/hr Q24H IVPB 10/12/18 16:00 10/19/18 15:59 10/12/18 16:46 Dexamethasone (Decadron) 4 mg BID ORAL 10/10/18 18:00 11/09/18 17:59 10/12/18 18:11 Dextrose (Dextrose 50%) 25 ml Q30M PRN IV Hypoglycemia 10/10/18 13:15 11/09/18 13:14 Dextrose (Dextrose 50%) 50 ml Q30M PRN IV Hypoglycemia 10/10/18 13:15 11/09/18 13:14 Finasteride (Proscar) 5 mg DAILY@2100 ORAL 10/10/18 21:00 11/09/18 20:59 10/12/18 20:34 Gadobutrol (Gadavist) 7.5 mmol NOW PRN IV Radiology Procedure 10/10/18 16:30 10/14/18 16:24 Heparin Sodium (Porcine) (Heparin 5000 units/ml) 5,000 units EVERY 12 HOURS SUBQ 10/10/18 21:00 11/09/18 20:59 10/12/18 08:57 Insulin Aspart (NovoLOG) BEFORE MEALS AND HS SUBQ 10/10/18 16:30 11/09/18 16:29 10/13/18 05:49 Lamotrigine (LaMICtal) 25 mg DAILY ORAL 10/13/18 09:00 11/12/18 08:59 Lorazepam (Ativan 2mg/ml 1ml) 2 mg Q2H PRN IV For Anxiety 10/10/18 13:15 10/17/18 13:14 10/12/18 13:41 Ondansetron HCl (Zofran) 4 mg Q6H PRN IVP Nausea & Vomiting 10/10/18 13:15 11/09/18 13:14 Polyethylene Glycol (Miralax) 17 gm DAILYPRN PRN ORAL Constipation 10/10/18 13:15 11/09/18 13:14 Promethazine HCl/ Codeine (Phenergan with Codeine) 5 ml Q4H PRN ORAL For Cough 10/10/18 13:15 11/09/18 13:14 Sitagliptin Phosphate (Januvia) 50 mg ACBREAKFAST ORAL 10/11/18 06:30 11/10/18 06:29 10/13/18 05:50 Sodium Chloride 1,000 ml @ 50 mls/hr Q20H IV 10/10/18 14:00 11/09/18 13:59 10/13/18 01:05 Tamsulosin HCl (Flomax) 0.4 mg BEDTIME ORAL 10/10/18 21:00 11/09/18 20:59 10/12/18 20:34 Valproic Acid (Depakene) 500 mg Q6HR ORAL 10/10/18 18:00 11/09/18 17:59 10/13/18 05:50 Vancomycin HCl (Vanco rx to dose) 1 ea DAILY PRN MISC . 10/10/18 13:30 11/09/18 13:29 Richard Lugo MD Oct 13, 2018 06:37
[2018-10-13] MEDS ORDERED: Carvedilol 12.5mg tab NG SCH (09:00)
[2018-10-13] MEDS: Heparin 5000 units/ml inj SUBQ SCH ×2 (09:00→20:36)
[2018-10-13 09:26] LABS: INR 1.1 (0.9-1.1)
--- NOTE | 2018-10-13 10:51 | Pulmonology Progress Note ---
Assessment/Plan Problems: (1) acute toxic encephalopathy (2) Sepsis (3) Brain tumor (4) Sacral decubitus ulcer (5) Hypertension (6) Diabetes mellitus (7) History of CVA (cerebrovascular accident) Assessment/Plan MRI of brain done swallow study pending because pt is too lethargic f/u cultures continue abx sliding scale monitor BP dvt prophylaxis Subjective ROS Limited/Unobtainable: No Constitutional: Reports: no symptoms HEENT: Repors: no symptoms Allergies: Coded Allergies: No Known Allergies (Unverified , 09/27/18) Objective Last 24 Hour Vital Signs Date Time Temp Pulse Resp B/P (MAP) Pulse Ox O2 Delivery O2 Flow Rate FiO2 10/13/18 09:39 90 129/72 10/13/18 08:00 97.5 90 16 129/72 (91) 98 10/13/18 08:00 Venturi Mask 10.0 Venturi Mask 10.0 10/13/18 07:45 97 10/13/18 07:08 100 Venturi Mask 8.0 40 10/13/18 07:08 Venturi Mask 8.0 40 10/13/18 04:00 98.2 93 20 143/84 (103) 99 10/13/18 04:00 91 10/13/18 04:00 Venturi Mask 10.0 Venturi Mask 10.0 10/13/18 01:00 99 Venturi Mask 10.0 45 10/13/18 01:00 Venturi Mask 10.0 45 10/13/18 00:00 97.9 92 23 149/74 (99) 100 10/13/18 00:00 94 10/13/18 00:00 Venturi Mask 10.0 Venturi Mask 10.0 10/12/18 20:33 90 137/66 10/12/18 20:00 97.6 90 24 137/66 (89) 100 10/12/18 20:00 92 10/12/18 20:00 Venturi Mask 10.0 Venturi Mask 10.0 10/12/18 20:00 92 10/12/18 16:00 97.2 94 23 108/68 (81) 99 10/12/18 16:00 93 10/12/18 16:00 Venturi Mask 10.0 Venturi Mask 10.0 10/12/18 12:00 80 10/12/18 12:00 Venturi Mask 10.0 Venturi Mask 10.0 10/12/18 12:00 97.0 93 26 131/67 (88) 100 Intake and Output 10/12/18 10/13/18 18:59 06:59 Intake Total 765 ml 510 ml Output Total 500 ml 750 ml Balance 265 ml -240 ml Intake Free Water 200 ml IV Total 665 ml 250 ml Tube Feeding 60 ml Other 100 ml Output Urine Total 500 ml 750 ml # Bowel Movements 1 General Appearance: WD/WN HEENT: normocephalic, atraumatic Respiratory/Chest: chest wall non-tender, lungs clear Cardiovascular: normal peripheral pulses, regular rhythm Abdomen: normal bowel sounds, soft, non tender Extremities: no cyanosis Skin: no ulcers Neurologic/Psychiatric: home specialist II-XII grossly normal Lymphatic: no neck adenopathy Microbiology Date/Time Source Procedure Growth Status 10/10/18 11:00 Blood Blood Culture - Preliminary Staphylococcus Species Resulted 10/10/18 11:00 Blood Blood Culture - Preliminary Staphylococcus Species Resulted 10/10/18 14:30 Sputum Gram Stain - Final Resulted 10/10/18 14:30 Sputum Culture - Preliminary Staphylococcus Aureus - Mrsa Usual Respiratory Ameena Nadege Albicans Resulted 10/10/18 12:21 Nasal Nares MRSA Culture - Final NO METHICILLIN RESISTANT STAPH AUREUS... Complete 10/10/18 12:30 Urine,Clean Catch Urine Culture - Final Escherichia Coli Complete 10/10/18 12:21 Rectum VRE Culture - Final NO VANCOMYCIN RESISTANT ENTEROCOCCUS ... Complete 10/10/18 12:21 Rectum - Final NO CARBAPENEM-RESISTANT ENTEROBACTERI... Complete Laboratory Tests 10/13/18 03:05: White Blood Count 2.9L, Red Blood Count 3.24L, Hemoglobin 10.3L, Hematocrit 29.3L, Mean Corpuscular Volume 91, Mean Corpuscular Hemoglobin 31.7H, Mean Corpuscular Hemoglobin Concent 35.0, Red Cell Distribution Width 12.6, Platelet Count 90L, Mean Platelet Volume 6.2L, Neutrophils (%) (Auto) , Lymphocytes (%) ( Auto) , Monocytes (%) (Auto) , Eosinophils (%) (Auto) , Basophils (%) (Auto) , Differential Total Cells Counted 100, Neutrophils % (Manual) 87H, Lymphocytes % (Manual) 5L, Monocytes % (Manual) 8, Eosinophils % (Manual) 0, Basophils % ( Manual) 0, Band Neutrophils 0, Platelet Estimate DecreasedL, Platelet Morphology Normal, Hypochromasia 1+, Spherocytes 1+, Sodium Level 136, Potassium Level 3.6, Chloride Level 98, Carbon Dioxide Level 34H, Anion Gap 4L, Blood Urea Nitrogen 13, Creatinine 0.4L, Estimat Glomerular Filtration Rate > 60 , Glucose Level 123H, Calcium Level 8.2L 10/13/18 08:55: Prothrombin Time 11.4, Prothromb Time International Ratio 1.1, Activated Partial Thromboplast Time 33 Current Medications Medications (Trade) Dose Ordered Sig/Chace Route PRN Reason Start Time Stop Time Status Last Admin Dose Admin Acetaminophen (Tylenol) 650 mg Q4H PRN ORAL T>100.5 10/10/18 13:15 11/09/18 13:14 Albuterol/ Ipratropium (Albuterol/ Ipratropium) 3 ml Q4H PRN HHN Shortness of Breath 10/10/18 13:15 10/15/18 13:14 Carvedilol (Coreg) 12.5 mg EVERY 12 HOURS NG 10/13/18 09:00 11/12/18 08:59 10/13/18 09:39 Ceftriaxone Sodium 2 gm/ Dextrose 55 ml @ 110 mls/hr Q24H IVPB 10/12/18 16:00 10/19/18 15:59 10/12/18 16:46 Dexamethasone (Decadron) 4 mg BID NG 10/13/18 09:00 11/12/18 08:59 10/13/18 09:39 Dextrose (Dextrose 50%) 25 ml Q30M PRN IV Hypoglycemia 10/10/18 13:15 11/09/18 13:14 Dextrose (Dextrose 50%) 50 ml Q30M PRN IV Hypoglycemia 10/10/18 13:15 11/09/18 13:14 Finasteride (Proscar) 5 mg DAILY@2100 ORAL 10/10/18 21:00 11/09/18 20:59 10/12/18 20:34 Gadobutrol (Gadavist) 7.5 mmol NOW PRN IV Radiology Procedure 10/10/18 16:30 10/14/18 16:24 Heparin Sodium (Porcine) (Heparin 5000 units/ml) 5,000 units EVERY 12 HOURS SUBQ 10/10/18 21:00 11/09/18 20:59 10/12/18 08:57 Insulin Aspart (NovoLOG) BEFORE MEALS AND HS SUBQ 10/10/18 16:30 11/09/18 16:29 10/13/18 05:49 Lamotrigine (LaMICtal) 25 mg DAILY NG 10/13/18 09:00 11/12/18 08:59 10/13/18 09:39 Lorazepam (Ativan 2mg/ml 1ml) 2 mg Q2H PRN IV For Anxiety 10/10/18 13:15 10/17/18 13:14 10/12/18 13:41 Ondansetron HCl (Zofran) 4 mg Q6H PRN IVP Nausea & Vomiting 10/10/18 13:15 11/09/18 13:14 Polyethylene Glycol (Miralax) 17 gm DAILYPRN PRN ORAL Constipation 10/10/18 13:15 11/09/18 13:14 Promethazine HCl/ Codeine (Phenergan with Codeine) 5 ml Q4H PRN ORAL For Cough 10/10/18 13:15 11/09/18 13:14 Sitagliptin Phosphate (Januvia) 50 mg ACBREAKFAST ORAL 10/11/18 06:30 11/10/18 06:29 10/13/18 05:50 Sodium Chloride 1,000 ml @ 50 mls/hr Q20H IV 10/10/18 14:00 11/09/18 13:59 10/13/18 01:05 Tamsulosin HCl (Flomax) 0.4 mg BEDTIME ORAL 10/10/18 21:00 11/09/18 20:59 10/12/18 20:34 Valproic Acid (Depakene) 500 mg Q6HR ORAL 10/10/18 18:00 11/09/18 17:59 10/13/18 05:50 Vancomycin HCl (Vanco rx to dose) 1 ea DAILY PRN MISC . 10/10/18 13:30 11/09/18 13:29 Raul Feng MD Oct 13, 2018 10:51
--- NOTE | 2018-10-13 11:46 | Infectious Diseases Prog Note ---
Assessment/Plan Assessment/Plan Abx: IV vancomycin 10/10- Cefepime 10/10- Assessment: Sepsis Probable UTI -u/a wbc 30-40, nit neg, leuk +3; ucx >100K E.coli (R Cipro/Levo; otherwise) Gram positive bacteremia, high grade- r/o S. aureus- -10/10 BCx 09/24 Staph sp -2d Echo: no vegetations seen Infected Sacral decubitus ulcer (necrotic tissue, foul-odor smelling)- r/o OM Afebrile Pancytopenia Acute respiratory failure on VM- no obvious PNA on CXR -CXR: Minimal left midlung atelectasis. No acute process otherwise Satisfactory nasogastric intubation, also demonstrated on recent abdomen radiograph -sp cx MRSA, C. albicans (likely colonizers as no PNA on CXR) Acute encephalopathy -CT brain wo: Chronic and age-related changes as described. Postsurgical changes with underlying temporal, parietal, and frontal encephalomalacia. 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 No contrast enhancement to suggest recurrent tumor is evident currently. There is evidence of old peripheral hemorrhage, presumably related to the prior surgery. 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 Negative for acute intracranial bleed, mass effect, infarct, or contrast enhancing lesion. Chronic and age-related changes, as described CVA w/ R hemiparesis and aphasia HTN HLD BPH Dm2 s/p appendectomy s/p tonsillectomy CAD seizure disorder SNF resident Plan: -Continue IV Vancomycin #4 for GPC bacteremia pending ID and sensi -Continue Ceftriaxone #2 (abx d#4) for UTI -10/12 SP Cefepime #3 -f/u cx -Monitor CBC/CMP, temperatures -Bcx x2 (reordered) -wound care per surgical team -aspiration precautions -Sx f/u- for debridement today Thank you for this consultation. Will continue to follow along with you. Discussed with RN. Subjective Allergies: Coded Allergies: No Known Allergies (Unverified , 09/27/18) Subjective afebrile on venturi mask Objective Vital Signs Last 24 Hour Vital Signs Date Time Temp Pulse Resp B/P (MAP) Pulse Ox O2 Delivery O2 Flow Rate FiO2 10/13/18 09:39 90 129/72 10/13/18 08:00 97.5 90 16 129/72 (91) 98 10/13/18 08:00 Venturi Mask 10.0 Venturi Mask 10.0 10/13/18 07:45 97 10/13/18 07:08 100 Venturi Mask 8.0 40 10/13/18 07:08 Venturi Mask 8.0 40 10/13/18 04:00 98.2 93 20 143/84 (103) 99 10/13/18 04:00 91 10/13/18 04:00 Venturi Mask 10.0 Venturi Mask 10.0 10/13/18 01:00 99 Venturi Mask 10.0 45 10/13/18 01:00 Venturi Mask 10.0 45 10/13/18 00:00 97.9 92 23 149/74 (99) 100 10/13/18 00:00 94 10/13/18 00:00 Venturi Mask 10.0 Venturi Mask 10.0 10/12/18 20:33 90 137/66 10/12/18 20:00 97.6 90 24 137/66 (89) 100 10/12/18 20:00 92 10/12/18 20:00 Venturi Mask 10.0 Venturi Mask 10.0 10/12/18 20:00 92 10/12/18 16:00 97.2 94 23 108/68 (81) 99 10/12/18 16:00 93 10/12/18 16:00 Venturi Mask 10.0 Venturi Mask 10.0 10/12/18 12:00 80 10/12/18 12:00 Venturi Mask 10.0 Venturi Mask 10.0 10/12/18 12:00 97.0 93 26 131/67 (88) 100 Height (Feet): 5 Height (Inches): 7.00 Weight (Pounds): 131 Objective GENERAL: The patient is well-developed and well-nourished male, in moderate respiratory distress. HEENT: Eyes, pupils are equal and responsive to light and accommodation. Extraocular movements are intact. NECK: Supple without lymphadenopathy. CHEST: Lungs are clear to auscultation bilaterally without wheezes or rales. CARDIOVASCULAR: Regular rhythm and rate. S1 and S2 normal without murmurs, rubs, or gallops. ABDOMEN: Soft, nontender, and nondistended. Positive bowel sounds. No evidence of hepatosplenomegaly.Currently, no rebound or guarding noted. EXTREMITIES: Negative for clubbing, cyanosis, or edema. NEUROLOGICAL: Cranial nerves II through XII are grossly intact without focal deficits Microbiology Date/Time Source Procedure Growth Status 10/10/18 14:30 Sputum Gram Stain - Final Resulted 10/10/18 14:30 Sputum Culture - Preliminary Staphylococcus Aureus - Mrsa Usual Respiratory Ameena Nadege Albicans Resulted 10/10/18 12:21 Nasal Nares MRSA Culture - Final NO METHICILLIN RESISTANT STAPH AUREUS... Complete 10/10/18 12:30 Urine,Clean Catch Urine Culture - Final Escherichia Coli Complete 10/10/18 12:21 Rectum VRE Culture - Final NO VANCOMYCIN RESISTANT ENTEROCOCCUS ... Complete 10/10/18 12:21 Rectum - Final NO CARBAPENEM-RESISTANT ENTEROBACTERI... Complete Laboratory Tests Test 10/13/18 03:05 10/13/18 08:55 White Blood Count 2.9 K/UL (4.8-10.8) L Red Blood Count 3.24 M/UL (4.70-6.10) L Hemoglobin 10.3 G/DL (14.2-18.0) L Hematocrit 29.3 % (42.0-52.0) L Mean Corpuscular Volume 91 FL (80-99) Mean Corpuscular Hemoglobin 31.7 PG (27.0-31.0) H Mean Corpuscular Hemoglobin Concent 35.0 G/DL (32.0-36.0) Red Cell Distribution Width 12.6 % (11.6-14.8) Platelet Count 90 K/UL (150-450) L Mean Platelet Volume 6.2 FL (6.5-10.1) L Neutrophils (%) (Auto) % (45.0-75.0) Lymphocytes (%) (Auto) % (20.0-45.0) Monocytes (%) (Auto) % (1.0-10.0) Eosinophils (%) (Auto) % (0.0-3.0) Basophils (%) (Auto) % (0.0-2.0) Differential Total Cells Counted 100 Neutrophils % (Manual) 87 % (45-75) H Lymphocytes % (Manual) 5 % (20-45) L Monocytes % (Manual) 8 % (1-10) Eosinophils % (Manual) 0 % (0-3) Basophils % (Manual) 0 % (0-2) Band Neutrophils 0 % (0-8) Platelet Estimate Decreased L Platelet Morphology Normal Hypochromasia 1+ Spherocytes 1+ Sodium Level 136 MMOL/L (136-145) Potassium Level 3.6 MMOL/L (3.5-5.1) Chloride Level 98 MMOL/L (98-107) Carbon Dioxide Level 34 MMOL/L (21-32) H Anion Gap 4 mmol/L (5-15) L Blood Urea Nitrogen 13 mg/dL (7-18) Creatinine 0.4 MG/DL (0.55-1.30) L Estimat Glomerular Filtration Rate > 60 mL/min (>60) Glucose Level 123 MG/DL (74-106) H Calcium Level 8.2 MG/DL (8.5-10.1) L Prothrombin Time 11.4 SEC (9.30-11.50) Prothromb Time International Ratio 1.1 (0.9-1.1) Activated Partial Thromboplast Time 33 SEC (23-33) Current Medications Medications (Trade) Dose Ordered Sig/Chace Route PRN Reason Start Time Stop Time Status Last Admin Dose Admin Acetaminophen (Tylenol) 650 mg Q4H PRN ORAL T>100.5 10/10/18 13:15 11/09/18 13:14 Albuterol/ Ipratropium (Albuterol/ Ipratropium) 3 ml Q4H PRN HHN Shortness of Breath 10/10/18 13:15 10/15/18 13:14 Carvedilol (Coreg) 12.5 mg EVERY 12 HOURS NG 10/13/18 09:00 11/12/18 08:59 10/13/18 09:39 Ceftriaxone Sodium 2 gm/ Dextrose 55 ml @ 110 mls/hr Q24H IVPB 10/12/18 16:00 10/19/18 15:59 10/12/18 16:46 Dexamethasone (Decadron) 4 mg BID NG 10/13/18 09:00 11/12/18 08:59 10/13/18 09:39 Dextrose (Dextrose 50%) 25 ml Q30M PRN IV Hypoglycemia 10/10/18 13:15 11/09/18 13:14 Dextrose (Dextrose 50%) 50 ml Q30M PRN IV Hypoglycemia 10/10/18 13:15 11/09/18 13:14 Finasteride (Proscar) 5 mg DAILY@2100 ORAL 10/10/18 21:00 11/09/18 20:59 10/12/18 20:34 Gadobutrol (Gadavist) 7.5 mmol NOW PRN IV Radiology Procedure 10/10/18 16:30 10/14/18 16:24 Heparin Sodium (Porcine) (Heparin 5000 units/ml) 5,000 units EVERY 12 HOURS SUBQ 10/10/18 21:00 11/09/18 20:59 10/12/18 08:57 Insulin Aspart (NovoLOG) BEFORE MEALS AND HS SUBQ 10/10/18 16:30 11/09/18 16:29 10/13/18 05:49 Lamotrigine (LaMICtal) 25 mg DAILY NG 10/13/18 09:00 11/12/18 08:59 10/13/18 09:39 Lorazepam (Ativan 2mg/ml 1ml) 2 mg Q2H PRN IV For Anxiety 10/10/18 13:15 10/17/18 13:14 10/12/18 13:41 Ondansetron HCl (Zofran) 4 mg Q6H PRN IVP Nausea & Vomiting 10/10/18 13:15 11/09/18 13:14 Polyethylene Glycol (Miralax) 17 gm DAILYPRN PRN ORAL Constipation 10/10/18 13:15 11/09/18 13:14 Promethazine HCl/ Codeine (Phenergan with Codeine) 5 ml Q4H PRN ORAL For Cough 10/10/18 13:15 11/09/18 13:14 Sitagliptin Phosphate (Januvia) 50 mg ACBREAKFAST ORAL 10/11/18 06:30 11/10/18 06:29 10/13/18 05:50 Sodium Chloride 1,000 ml @ 50 mls/hr Q20H IV 10/10/18 14:00 11/09/18 13:59 10/13/18 01:05 Tamsulosin HCl (Flomax) 0.4 mg BEDTIME ORAL 10/10/18 21:00 11/09/18 20:59 10/12/18 20:34 Valproic Acid (Depakene) 500 mg Q6HR ORAL 10/10/18 18:00 11/09/18 17:59 10/13/18 05:50 Vancomycin HCl (Vanco rx to dose) 1 ea DAILY PRN MISC . 10/10/18 13:30 11/09/18 13:29 Brandie Carlos M.D. Oct 13, 2018 11:46
[2018-10-13] MEDS ORDERED: Lidocaine 1% 10mg/ml/Epi 0.005mg/ml 30ml vial INJ ONE (11:53)
[2018-10-13] MEDS ORDERED: Bacitracin Oint 15gm Tube TOPIC ONE (11:53)
[2018-10-13] MEDS ORDERED: Bupivacaine w/Epi 0.5% 30ml Vial INJ ONE (11:54)
[2018-10-13] MEDS ORDERED: Bacitracin 50000 Units Vial ONE (11:54)
[2018-10-13] MEDS ORDERED: Sterile Water Irrig 1000ml IRRIG ONE (12:00)
[2018-10-13] MEDS ORDERED: Alfentanil 2ml Inj ONE (12:00)
[2018-10-13] MEDS ORDERED: LR 1000ml ONE (12:00)
[2018-10-13] MEDS ORDERED: Lidocaine 1% Plain 30 ml INJ ONE (12:03)
[2018-10-13] MEDS ORDERED: Propofol 200mg/20ml IV ONE (12:03)
[2018-10-13] MEDS ORDERED: Sodium Chloride 10ml vial INJ ONE (12:04)
--- NOTE | 2018-10-13 12:11 | Pre-Procedure Note/Attestation ---
Pre-Procedure Note/Attestation Complete Prior to Procedure Procedure Narrative: excisional debridement of sacral decubitus ulcer Indications for Procedure Pre-Operative Diagnosis: sacral decubitus ulcer Attestation I attest that I discussed the nature of the procedure; its benefits; risks and complications; and alternatives (and the risks and benefits of such alternatives ), prior to the procedure, with the patient (or the patient's legal small business representative). I attest that, if there was a reasonable possibility of needing a blood transfusion, the patient (or the patient's legal small business representative) was given the [facility] standardized written summary, pursuant to the Jose Eb Blood Safety Act ([place] Health and Safety Code # 1645, as amended). I attest that I re-evaluated the patient just prior to the surgery and that there has been no change in the patient's H&P, except as documented below: Harry Rivas Oct 13, 2018 12:11
--- NOTE | 2018-10-13 12:15 | Anethesia Preoperative Eval ---
Anesthesia Pre-op PMH/ROS General Date of Evaluation: Oct 13, 2018 Time of Evaluation: 12:11 Anesthesiologist: Karol ASA Score: ASA 3 Mallampati Score Class I : Soft palate, uvula, fauces, pillars visible Class II: Soft palate, uvula, fauces visible Class III: Soft palate, base of uvula visible Class IV: Only hard plate visible Mallampati Classification: Class II Surgeon: Rob Diagnosis: Sacral Ulcer Surgical Procedure: Exsision Sacral Decubitus Ulcer Family History: no anesthesia problems Allergies: Coded Allergies: No Known Allergies (Unverified , 09/27/18) Medications: see eMAR Patient NPO?: Yes NPO Date: Oct 13, 2018 NPO Time: 0850 Past Medical History Cardiovascular: Reports: HTN, CAD Gastrointestinal/Genitourinary: Reports: ESRD - Dialysis, other - BPH Neurologic/Psychiatric: Reports: CVA - R Side Hemiparesis, other - AMS, Seizures Endocrine: Reports: DM Hematology/Immune: Reports: anemia, other - AMS, Brain CA, Heatstroke Anesthesia Pre-op Phys. Exam Physician Exam Last Vital Signs Date Time Temp Pulse Resp B/P (MAP) Pulse Ox O2 Delivery O2 Flow Rate FiO2 10/13/18 09:39 90 129/72 10/13/18 08:00 97.5 16 98 10/13/18 08:00 Venturi Mask 10.0 Venturi Mask 10.0 10/13/18 07:08 40 Constitutional: NAD Neurologic: CN 2-12 intact Cardiovascular: RRR Respiratory: CTA Gastrointestinal: S/NT/ND Airway Exam Mallampati Score: Class II MO: limited ROM: limited Teeth: missing, intact Anesthesia Pre-op A/P Labs Hematology Test 10/13/18 03:05 White Blood Count 2.9 K/UL (4.8-10.8) L Red Blood Count 3.24 M/UL (4.70-6.10) L Hemoglobin 10.3 G/DL (14.2-18.0) L Hematocrit 29.3 % (42.0-52.0) L Mean Corpuscular Volume 91 FL (80-99) Mean Corpuscular Hemoglobin 31.7 PG (27.0-31.0) H Mean Corpuscular Hemoglobin Concent 35.0 G/DL (32.0-36.0) Red Cell Distribution Width 12.6 % (11.6-14.8) Platelet Count 90 K/UL (150-450) L Mean Platelet Volume 6.2 FL (6.5-10.1) L Neutrophils (%) (Auto) % (45.0-75.0) Lymphocytes (%) (Auto) % (20.0-45.0) Monocytes (%) (Auto) % (1.0-10.0) Eosinophils (%) (Auto) % (0.0-3.0) Basophils (%) (Auto) % (0.0-2.0) Differential Total Cells Counted 100 Neutrophils % (Manual) 87 % (45-75) H Lymphocytes % (Manual) 5 % (20-45) L Monocytes % (Manual) 8 % (1-10) Eosinophils % (Manual) 0 % (0-3) Basophils % (Manual) 0 % (0-2) Band Neutrophils 0 % (0-8) Platelet Estimate Decreased L Platelet Morphology Normal Hypochromasia 1+ Spherocytes 1+ Coagulation Test 10/13/18 08:55 Prothrombin Time 11.4 SEC (9.30-11.50) Prothromb Time International Ratio 1.1 (0.9-1.1) Activated Partial Thromboplast Time 33 SEC (23-33) Chemistry Test 10/13/18 03:05 Sodium Level 136 MMOL/L (136-145) Potassium Level 3.6 MMOL/L (3.5-5.1) Chloride Level 98 MMOL/L (98-107) Carbon Dioxide Level 34 MMOL/L (21-32) H Anion Gap 4 mmol/L (5-15) L Blood Urea Nitrogen 13 mg/dL (7-18) Creatinine 0.4 MG/DL (0.55-1.30) L Estimat Glomerular Filtration Rate > 60 mL/min (>60) Glucose Level 123 MG/DL (74-106) H Calcium Level 8.2 MG/DL (8.5-10.1) L Risk Assessment & Plan Assessment: ASA 3 Plan: GA, SED Status Change Before Surgery: No Pre-Antibiotics Dru Gram Ancef IV Given Within 1 Hr of Incision: Yes Time Given: 12:37 Saqib Roberson MD Oct 13, 2018 12:15
[2018-10-13] MEDS ORDERED: Hydromorphone 0.5mg/0.5ml inj IVP PRN (12:19)
[2018-10-13] MEDS ORDERED: HYDROcodone/Acetamin 5/325 tab ORAL PRN (12:19)
[2018-10-13] MEDS ORDERED: fentaNYL 100 mcg/2 mL IV PRN (12:19)
[2018-10-13] MEDS ORDERED: HYDROcodone/Acetamin 7.5/325 tab ORAL PRN (12:20)
[2018-10-13] MEDS ORDERED: DiphenhydrAMINE 50mg/ml Inj IVP PRN (12:20)
[2018-10-13] MEDS ORDERED: Atropine Sulfate 0.4mg/ml inj IVP PRN (12:20)
[2018-10-13] MEDS ORDERED: oxyCODONE HCL/Acetaminophen 5/325mg ORAL PRN (12:21)
[2018-10-13] MEDS ORDERED: LR 1000ml 1,000 ML IVLG SCH ×2 (12:25→16:15)
[2018-10-13] MEDS ORDERED: Labetalol 5mg/ml 20ml vial IV PRN (12:25)
[2018-10-13] MEDS ORDERED: Meperidine 50mg/ml Inj(FOR RIGORS ONLY) IVP PRN (12:26)
--- NOTE | 2018-10-13 12:55 | Immediate Post-Op Evaluation ---
Immediate Post-Op Evalulation Immediate Post-Op Evalulation Procedure: Excision Sacral Ulcer Date of Evaluation: Oct 13, 2018 Time of Evaluation: 13:28 IV Fluids: 200 NS Blood Products: 0 Estimated Blood Loss: 20 Urinary Output: 0 Blood Pressure Systolic: 158 Blood Pressure Diastolic: 92 Pulse Rate: 101 Respiratory Rate: 18 O2 Sat by Pulse Oximetry: 94 Temperature (Fahrenheit): 97.8 Pain Score (1-10): 2 Nausea: No Vomiting: No Complications 0 Patient Status: awake, reacts, patent, none Hydration Status: adequate Dru Gram Ancef IV Given Within 1 Hr of Incision: Yes Time Given: 12:37 Saqib Roberson MD Oct 13, 2018 12:55
[2018-10-13] MEDS ORDERED: NS Irrig 1000ml IRRIG ONE (13:03)
--- NOTE | 2018-10-13 13:10 | Diagnostic Imaging Report ---
APPROVED REPORT CPT Code: 97833 Vascular Symptoms Comments: Altered LOC Doppler Spectral Velocity Analysis RightLeft arteries. The Doppler spectral flow analysis indicates the degree of stenosis is minimal (10%) in the common carotid artery, mild (30%) in the internal carotid artery, and minimal (10%) in the external carotid artery. VERTEBRAL/SUBCLAVIAN- The vertebral and subclavian arteries are within normal limits. LEFT SIDE: ICA - The Doppler spectral flow analysis is abnormal (resistive) in the proximal internal carotid artery, suggestive of an intracranial occlusion, remaining mid to distal segment of the internal carotid artery is occluded. CCA/ECA-Doppler spectral flow analysis indicates the degree of stenosis is minimal (10%) in the common carotid artery, and (10%) in the external carotid artery. VERTEBRAL/SUBCLAVIAN- The vertebral and subclavian arteries are within normal limits. CHIDI Bonilla was notified of abnormal results at 0830 hours.
--- NOTE | 2018-10-13 13:14 | Brief Operative Note ---
Immediate Post Operative Note Operative Note Pre-op Diagnosis: sacral decubitus ulcer Procedure: 1. excision of sacral pressure ulcer with coccygectomy and ostectomy Post-op Diagnosis: necrotic stage 4 sacral decubitus ulcer Surgeon: charly Anesthesiologist: leslie Anesthesia: general, local Specimen: yes Complications: none Condition: stable Fluids: see records Estimated Blood Loss: minimal Implant(s) used?: No Harry Rivas Oct 13, 2018 13:14
[2018-10-13] MEDS ORDERED: Albuterol/Ipratropium 3ml neb HHN PRN (14:30)
[2018-10-13] MEDS: cefTRIAXone 2 GM in D5W 55 ML IVPB SCH (15:07)
--- NOTE | 2018-10-13 15:18 | Cardiology Progress Note ---
Assessment/Plan Assessment/Plan history of brain tumor resected in June 2018 and also treated with radiation therapy. History of CVA with right hemiparesis and aphasia, hypertension, diabetes coronary artery disease abn cardiac enzymes demand related urosepsis pancytopenia labs ntoed tele sinus ekg somis apical infarction not vey communicative neuro following poor candidate for any cv intervention at this point echo doen inthe past 3 weeks noted swma noted being transferred to med surg Subjective ROS Limited/Unobtainable: Yes Objective Last 24 Hour Vital Signs Date Time Temp Pulse Resp B/P (MAP) Pulse Ox O2 Delivery O2 Flow Rate FiO2 10/13/18 14:18 97.2 103 18 117/75 (89) 94 10/13/18 14:10 98.0 101 23 122/80 97 Venturi Mask 10 35 10/13/18 14:00 102 16 113/78 97 Venturi Mask 10 35 10/13/18 13:47 104 19 113/80 97 Venturi Mask 10 35 10/13/18 13:37 104 19 112/83 99 Venturi Mask 10 35 10/13/18 13:27 105 18 108/77 99 Venturi Mask 10 35 10/13/18 13:22 106 23 115/69 99 Venturi Mask 10 35 10/13/18 13:17 97.8 107 31 158/92 95 Venturi Mask 10 35 10/13/18 13:17 101 18 94 10/13/18 12:00 94 10/13/18 12:00 Venturi Mask 10.0 Venturi Mask 10.0 10/13/18 12:00 97.7 93 18 127/77 (94) 96 10/13/18 09:39 90 129/72 10/13/18 08:00 97.5 90 16 129/72 (91) 98 10/13/18 08:00 Venturi Mask 10.0 Venturi Mask 10.0 10/13/18 07:45 97 10/13/18 07:08 100 Venturi Mask 8.0 40 10/13/18 07:08 Venturi Mask 8.0 40 10/13/18 04:00 98.2 93 20 143/84 (103) 99 10/13/18 04:00 91 10/13/18 04:00 Venturi Mask 10.0 Venturi Mask 10.0 10/13/18 01:00 99 Venturi Mask 10.0 45 10/13/18 01:00 Venturi Mask 10.0 45 10/13/18 00:00 97.9 92 23 149/74 (99) 100 10/13/18 00:00 94 10/13/18 00:00 Venturi Mask 10.0 Venturi Mask 10.0 10/12/18 20:33 90 137/66 10/12/18 20:00 97.6 90 24 137/66 (89) 100 10/12/18 20:00 92 10/12/18 20:00 Venturi Mask 10.0 Venturi Mask 10.0 10/12/18 20:00 92 10/12/18 16:00 97.2 94 23 108/68 (81) 99 10/12/18 16:00 93 10/12/18 16:00 Venturi Mask 10.0 Venturi Mask 10.0 Intake and Output 10/12/18 10/13/18 18:59 06:59 Intake Total 765 ml 510 ml Output Total 500 ml 750 ml Balance 265 ml -240 ml Intake Free Water 200 ml IV Total 665 ml 250 ml Tube Feeding 60 ml Other 100 ml Output Urine Total 500 ml 750 ml # Bowel Movements 1 Laboratory Tests Test 10/13/18 03:05 10/13/18 08:55 White Blood Count 2.9 K/UL (4.8-10.8) L Red Blood Count 3.24 M/UL (4.70-6.10) L Hemoglobin 10.3 G/DL (14.2-18.0) L Hematocrit 29.3 % (42.0-52.0) L Mean Corpuscular Volume 91 FL (80-99) Mean Corpuscular Hemoglobin 31.7 PG (27.0-31.0) H Mean Corpuscular Hemoglobin Concent 35.0 G/DL (32.0-36.0) Red Cell Distribution Width 12.6 % (11.6-14.8) Platelet Count 90 K/UL (150-450) L Mean Platelet Volume 6.2 FL (6.5-10.1) L Neutrophils (%) (Auto) % (45.0-75.0) Lymphocytes (%) (Auto) % (20.0-45.0) Monocytes (%) (Auto) % (1.0-10.0) Eosinophils (%) (Auto) % (0.0-3.0) Basophils (%) (Auto) % (0.0-2.0) Differential Total Cells Counted 100 Neutrophils % (Manual) 87 % (45-75) H Lymphocytes % (Manual) 5 % (20-45) L Monocytes % (Manual) 8 % (1-10) Eosinophils % (Manual) 0 % (0-3) Basophils % (Manual) 0 % (0-2) Band Neutrophils 0 % (0-8) Platelet Estimate Decreased L Platelet Morphology Normal Hypochromasia 1+ Spherocytes 1+ Sodium Level 136 MMOL/L (136-145) Potassium Level 3.6 MMOL/L (3.5-5.1) Chloride Level 98 MMOL/L (98-107) Carbon Dioxide Level 34 MMOL/L (21-32) H Anion Gap 4 mmol/L (5-15) L Blood Urea Nitrogen 13 mg/dL (7-18) Creatinine 0.4 MG/DL (0.55-1.30) L Estimat Glomerular Filtration Rate > 60 mL/min (>60) Glucose Level 123 MG/DL (74-106) H Calcium Level 8.2 MG/DL (8.5-10.1) L Prothrombin Time 11.4 SEC (9.30-11.50) Prothromb Time International Ratio 1.1 (0.9-1.1) Activated Partial Thromboplast Time 33 SEC (23-33) Scottie Avalos MD Oct 13, 2018 15:17
[2018-10-13] MEDS ORDERED: 1/2 NS 1000ml IV ONE (15:40)
[2018-10-13] MEDS ORDERED: NS 275ml ONE (15:40)
[2018-10-13] MEDS ORDERED: Tubing IV Secondary IV ONE (15:40)
[2018-10-13] MEDS ORDERED: Promethazine/Codeine 5ml UD ORAL PRN (16:30)
[2018-10-13] MEDS ORDERED: Miralax 17gm pkt ORAL PRN (16:30)
[2018-10-13] MEDS ORDERED: Gadavist 7.5mMol/7.5ml vial IV PRN (16:30)
[2018-10-13] MEDS ORDERED: LORazepam Inj 2mg/ml 1ml IV PRN (16:30)
--- NOTE | 2018-10-13 16:45 | Operative Note - Dictated ---
DATE OF OPERATION: 10/13/2018 PREOPERATIVE DIAGNOSIS: Sacral decubitus ulcer. POSTOPERATIVE DIAGNOSIS: Necrotic stage IV sacral decubitus ulcer. PROCEDURE PERFORMED: Excision of sacral pressure ulcer with coccygectomy and ostectomy. ATTENDING SURGEON: Harry Rivas M.D. ULTIMATE HOOPS SCOREBOARD OPERATOR: None. ANESTHESIOLOGIST: Saqib Roberson M.D. ANESTHESIA: General GETA plus local. ESTIMATED BLOOD LOSS: Minimal. IV FLUIDS: Please see anesthesia records. COMPLICATIONS: None. DRAINS: None. SPECIMENS: 1. Necrotic sacral decubitus tissue. 2. Coccyx and ostectomy from sacrum. DRAINS: None. COMPLICATIONS: None. DRESSINGS: Wet-to-dry packing and dressings. IMPLANTS: None. INDICATIONS FOR PROCEDURE: This is a 68-year-old male who was currently readmitted to [facility] for decompensated condition. The patient was recently admitted in early September where he was identified to have some erythema and skin breakdown near the sacral area and discharged in stable condition to outside facility at which time he returned decompensated approximately 2 to 3 weeks later at which time he was identified to have a worsening unstageable necrotic foul-smelling sacral decubitus ulcer that had significantly progressed since prior admission. Given these findings, excision with debridement and full care plan was initiated and recommended as well as indicated. I discussed with both the patient's sons regarding the condition and the deterioration and the recommendation for excision down to healthy tissue for allowing the viable tissue to granulate and perforate so that we could potentially graft or flap in near future given acute wound that can be managed fairly rapidly. After all risks, benefits, and alternatives were discussed with the patient's family in regards to patient's condition, care plan and potential deterioration or worsening in the future with our plans for active persistent and constant wound care. Consent was obtained for procedure, which was scheduled for October 13, 2018. OPERATIVE NOTE: The patient was taken to the operating room and placed on the operating room table in the prone position with all bony prominences well padded. SCDs were placed. The patient already had a Mota catheter prior to entering the operating room. The patient was given moderate sedation and made comfortable. Local anesthetic was infiltrated in the periwound for patient's comfort. Preoperative time-out taken identifying the patient, procedure, operative and surgical staff. The patient was monitored by the anesthesiologist and made comfortable. The sacral area was prepped and draped in standard surgical fashion. Once this was completed, the area was evaluated and identified, noted to be measuring approximately 10 cm x 7 cm with unknown depth, but clearly visible necrotic tissue with skin breakdown and opening down to likely the sacrum. At this time, a fresh #10 scalpel was used and the necrotic tissue was excised circumferentially around the wound at the level of healthy viable dermis. A minimal amount of healthy viable tissue was excised and was made to keep as much viable tissue as possible and only remove the necrotic tissue. Once passed the dermis and subcutaneous tissue, there was approximately 1 cm tunneling in the lateral aspect inferiorly mainly and some superiorly as well as approximately 0.6 mm tunneling in the superior aspect and no tunneling in the inferior aspect. The excision was carried down to the sacral bone through the subcutaneous tissue laterally to identifying healthy viable fatty tissue. Once the circumferential area of necrotic tissue was dissected down and excised, it was sent to pathology for review. At this time, we clearly identifying the healthy subcutaneous tissue and dermis and at the level of the apex, there was the sacrum and detached loose coccyx. Coccygectomy was performed using #15 scalpel without complication. Once the coccyx was removed, the sacrum was identified and noted to be fairly prominent. Ostectomy was performed of the distal portion of the sacrum was performed using a rongeur down finding the sacrum to minimize pressure. Furthermore, the periosteum of the sacrum was necrotic and required excision as well. Once this was completed and healthy sacral bone was identified, it was filed down to smoothed and flattened with a surgical file. Once this was completed, the remaining tissues were all with good viable backbleeding and no remaining necrotic tissue and only healthy bleeding. Hemostasis was achieved using minimal amount of electrocautery. Once this was completed, it seems very viable for potential skin flap in the near future once some granulation tissue had formed. Remaining subcutaneous tissues in the lateral aspects were fairly healthy, viable, and mobile. Following this, wet-to-dry gauze packing followed by ABD dressings were applied. At this time, we concluded the procedure. The patient was taken to the postanesthetic care unit in a stable condition. Harry Rivas M.D. DR: Florentino JOB#: [id number] CC: EDGAR
--- NOTE | 2018-10-13 18:32 | Internal Med Progress Note ---
Subjective Date of Service: Oct 13, 2018 Physician Name Kidd,Jesus Attending Physician Camacho Braun MD Current Medications Medications (Trade) Dose Ordered Sig/Chace Route PRN Reason Start Time Stop Time Status Last Admin Dose Admin Acetaminophen (Tylenol) 650 mg Q4H PRN ORAL T>100.5 10/13/18 16:30 11/09/18 16:29 Albuterol/ Ipratropium (Albuterol/ Ipratropium) 3 ml Q4H PRN HHN Shortness of Breath 10/13/18 14:30 10/15/18 14:29 Carvedilol (Coreg) 12.5 mg EVERY 12 HOURS NG 10/13/18 21:00 11/12/18 08:59 Ceftriaxone Sodium 2 gm/ Dextrose 55 ml @ 110 mls/hr Q24H IVPB 10/14/18 16:00 10/19/18 15:59 Dexamethasone (Decadron) 4 mg BID NG 10/13/18 18:00 11/12/18 08:59 10/13/18 17:57 Dextrose (Dextrose 50%) 25 ml Q30M PRN IV Hypoglycemia 10/13/18 16:15 11/09/18 13:14 Dextrose (Dextrose 50%) 50 ml Q30M PRN IV Hypoglycemia 10/13/18 16:15 11/09/18 13:14 Finasteride (Proscar) 5 mg DAILY@2100 ORAL 10/13/18 21:00 11/09/18 20:59 Gadobutrol (Gadavist) 7.5 mmol NOW PRN IV Radiology Procedure 10/13/18 16:30 10/14/18 16:24 Heparin Sodium (Porcine) (Heparin 5000 units/ml) 5,000 units EVERY 12 HOURS SUBQ 10/13/18 21:00 11/09/18 20:59 Insulin Aspart (NovoLOG) BEFORE MEALS AND HS SUBQ 10/13/18 16:30 11/09/18 16:29 10/13/18 17:35 Lamotrigine (LaMICtal) 25 mg DAILY NG 10/14/18 09:00 11/12/18 08:59 Lorazepam (Ativan 2mg/ml 1ml) 2 mg Q2H PRN IV For Anxiety 10/13/18 16:30 10/17/18 16:29 Ondansetron HCl (Zofran) 4 mg Q6H PRN IVP Nausea & Vomiting 10/13/18 16:30 11/09/18 16:29 Polyethylene Glycol (Miralax) 17 gm DAILYPRN PRN ORAL Constipation 10/13/18 16:30 11/12/18 16:29 Promethazine HCl/ Codeine (Phenergan with Codeine) 5 ml Q4H PRN ORAL For Cough 10/13/18 16:30 11/09/18 16:29 Sitagliptin Phosphate (Januvia) 50 mg ACBREAKFAST ORAL 10/14/18 06:30 11/10/18 06:29 Sodium Chloride 1,000 ml @ 50 mls/hr Q20H IV 10/13/18 16:15 11/09/18 13:59 10/13/18 17:25 Tamsulosin HCl (Flomax) 0.4 mg BEDTIME ORAL 10/13/18 21:00 11/09/18 20:59 Valproic Acid (Depakene) 500 mg Q6HR ORAL 10/13/18 18:00 11/09/18 17:59 10/13/18 17:57 Vancomycin HCl (Vanco rx to dose) 1 ea DAILY PRN MISC . 10/14/18 09:00 11/09/18 13:29 Allergies: Coded Allergies: No Known Allergies (Unverified , 09/27/18) ROS Limited/Unobtainable: Yes Subjective 68 YO M with history of brain cancer admitted with altered mental status. Now UTI and sepsis. Cover for Int Patel-Dr Braun Objective Last Vital Signs Date Time Temp Pulse Resp B/P (MAP) Pulse Ox O2 Delivery O2 Flow Rate FiO2 10/13/18 16:00 97.0 103 18 146/90 (108) 95 10/13/18 16:00 Venturi Mask 10.0 Venturi Mask 10.0 10/13/18 14:10 35 Laboratory Tests Test 10/13/18 03:05 10/13/18 08:55 White Blood Count 2.9 K/UL (4.8-10.8) L Red Blood Count 3.24 M/UL (4.70-6.10) L Hemoglobin 10.3 G/DL (14.2-18.0) L Hematocrit 29.3 % (42.0-52.0) L Mean Corpuscular Volume 91 FL (80-99) Mean Corpuscular Hemoglobin 31.7 PG (27.0-31.0) H Mean Corpuscular Hemoglobin Concent 35.0 G/DL (32.0-36.0) Red Cell Distribution Width 12.6 % (11.6-14.8) Platelet Count 90 K/UL (150-450) L Mean Platelet Volume 6.2 FL (6.5-10.1) L Neutrophils (%) (Auto) % (45.0-75.0) Lymphocytes (%) (Auto) % (20.0-45.0) Monocytes (%) (Auto) % (1.0-10.0) Eosinophils (%) (Auto) % (0.0-3.0) Basophils (%) (Auto) % (0.0-2.0) Differential Total Cells Counted 100 Neutrophils % (Manual) 87 % (45-75) H Lymphocytes % (Manual) 5 % (20-45) L Monocytes % (Manual) 8 % (1-10) Eosinophils % (Manual) 0 % (0-3) Basophils % (Manual) 0 % (0-2) Band Neutrophils 0 % (0-8) Platelet Estimate Decreased L Platelet Morphology Normal Hypochromasia 1+ Spherocytes 1+ Sodium Level 136 MMOL/L (136-145) Potassium Level 3.6 MMOL/L (3.5-5.1) Chloride Level 98 MMOL/L (98-107) Carbon Dioxide Level 34 MMOL/L (21-32) H Anion Gap 4 mmol/L (5-15) L Blood Urea Nitrogen 13 mg/dL (7-18) Creatinine 0.4 MG/DL (0.55-1.30) L Estimat Glomerular Filtration Rate > 60 mL/min (>60) Glucose Level 123 MG/DL (74-106) H Calcium Level 8.2 MG/DL (8.5-10.1) L Prothrombin Time 11.4 SEC (9.30-11.50) Prothromb Time International Ratio 1.1 (0.9-1.1) Activated Partial Thromboplast Time 33 SEC (23-33) Intake and Output 10/12/18 10/13/18 19:00 07:00 Intake Total 715 ml 530 ml Output Total 500 ml 750 ml Balance 215 ml -220 ml Intake Free Water 200 ml IV Total 615 ml 250 ml Tube Feeding 80 ml Other 100 ml Output Urine Total 500 ml 750 ml # Bowel Movements 1 Objective PHYSICAL EXAMINATION: GENERAL: The patient is well-developed and well-nourished male, in moderate respiratory distress. HEENT: Eyes, pupils are equal and responsive to light and accommodation. Extraocular movements are intact. NECK: Supple without lymphadenopathy. CHEST: Lungs are clear to auscultation bilaterally without wheezes or rales. CARDIOVASCULAR: Regular rhythm and rate. S1 and S2 normal without murmurs, rubs, or gallops. ABDOMEN: Soft, nontender, and nondistended. Positive bowel sounds. No evidence of hepatosplenomegaly, rebound or guarding noted. EXTREMITIES: Negative for clubbing, cyanosis, or edema. RECTAL/GENITAL: Not performed. NEUROLOGICAL: Cranial nerves II through XII are grossly intact without focal deficits Assessment/Plan Assessment/Plan ASSESSMENT: This is a 68-year-old male. 1. Altered mental status. 2. Urinary tract infection-E. Coli 3. Brain cancer. 4. Seizure disorder. 5. Diabetes type 2. 6. History of cerebrovascular accident. 7. Right hemiparesis. 8. Hypertension. 9. Coronary artery disease. 10. Expressive aphasia. 11. Hypercholesterolemia. 12. Sepsis-Staph species 13 Sacral decubitus ulcer TREATMENT: 1. Altered mental status. This may be secondary to urinary tract infection. Urine culture is pending. The patient has been started empirically on vancomycin and cefepime. Await urine cultures. 2. Urinary tract infection-E.Coli. Urine culture ID and sensitivity is pending. Abx=ceftriaxone per ID follow recommendations of Infectious Diseases. 3. Brain cancer. 4. Seizure disorder. Continue Depakote and Lamictal as above. 5. Diabetes type 2. A NovoLog sliding scale has been instituted. 6. History of cerebrovascular accident. 7. Right hemiparesis. 8. Expressive aphasia. 9. Hypertension. The patient is currently hypotensive. 10. History of coronary artery disease. 11. Sepsis=Staph species; continue vanco per Jesus Armendariz MD Oct 13, 2018 18:32
[2018-10-13] MEDS: Tamsulosin 0.4mg cap ORAL SCH (20:34)
[2018-10-13] MEDS: Carvedilol 12.5mg tab NG SCH (20:35)
[2018-10-14] VITALS: BP 146/95
[2018-10-14] MEDS: Valproic Acid 250mg/5ml Liquid ORAL SCH ×4 (00:25→17:13)
[2018-10-14 04:00] VITALS: BP 127/68
[2018-10-14] MEDS: NovoLOG Insulin Flexpen SUBQ SCH ×3 (06:02→17:15)
[2018-10-14] MEDS ORDERED: sitaGLIPtin 50mg tab ORAL SCH (06:30)
[2018-10-14 08:00] VITALS: BP 117/77
[2018-10-14 08:20] LABS: HEMATOCRIT 30.9 % (42.0-52.0); HEMOGLOBIN 10.7 G/DL (14.2-18.0); MEAN CORPUSCULAR VOLUME 90 FL (80-99); PLATELET COUNT 113 K/UL (150-450); RED BLOOD COUNT 3.45 M/UL (4.70-6.10); RED CELL DISTRIBUTION WIDTH 12.7 % (11.6-14.8); WHITE BLOOD COUNT 4.9 K/UL (4.8-10.8)
[2018-10-14 08:27] LABS: INR 1.1 (0.9-1.1)
[2018-10-14 08:51] LABS: ALANINE AMINOTRANSFERASE 20 U/L (12-78); ALBUMIN 1.6 G/DL (3.4-5.0); ALBUMIN/GLOBULIN RATIO 0.4 (1.0-2.7); ALKALINE PHOSPHATASE 50 U/L (46-116); ANION GAP 1 mmol/L (5-15); ASPARTATE AMINO TRANSFERASE 20 U/L (15-37); BILIRUBIN,TOTAL 0.3 MG/DL (0.2-1.0); BLOOD UREA NITROGEN 12 mg/dL (7-18); CALCIUM 8.2 MG/DL (8.5-10.1); CARBON DIOXIDE 36 MMOL/L (21-32); CHLORIDE 97 MMOL/L (98-107); CREATININE 0.6 MG/DL (0.55-1.30); PHOSPHORUS 1.2 MG/DL (2.5-4.9); POTASSIUM 3.9 MMOL/L (3.5-5.1); SODIUM 134 MMOL/L (136-145)
[2018-10-14] MEDS: Heparin 5000 units/ml inj SUBQ SCH ×2 (09:00→21:00)
[2018-10-14] MEDS: Carvedilol 12.5mg tab NG SCH ×2 (10:04→21:18)
[2018-10-14 12:00] VITALS: BP 127/79
[2018-10-14] MEDS ORDERED: Potassium Phosphate 30 MM in NS 275 ML IV SCH (12:00)
--- NOTE | 2018-10-14 13:07 | Pulmonology Progress Note ---
Assessment/Plan Problems: (1) acute toxic encephalopathy (2) Sepsis (3) Brain tumor (4) Sacral decubitus ulcer (5) Hypertension (6) Diabetes mellitus (7) History of CVA (cerebrovascular accident) Assessment/Plan MRI of brain done Encephalomalacia of the left anterior temporal lobe and adjacent frontal and parietal opercula; swallow study pending because pt is still too lethargic f/u cultures continue abx sliding scale monitor BP dvt prophylaxis Subjective ROS Limited/Unobtainable: No Constitutional: Reports: no symptoms HEENT: Repors: no symptoms Allergies: Coded Allergies: No Known Allergies (Unverified , 09/27/18) Objective Last 24 Hour Vital Signs Date Time Temp Pulse Resp B/P (MAP) Pulse Ox O2 Delivery O2 Flow Rate FiO2 10/14/18 10:04 112 122/66 10/14/18 09:45 Venturi Mask 10.0 40 10/14/18 09:45 96 Venturi Mask 10.0 40 10/14/18 09:00 Venturi Mask 10.0 Venturi Mask 10.0 10/14/18 08:00 98.1 106 22 117/77 (90) 96 10/14/18 04:00 97.2 63 18 127/68 (87) 10/14/18 03:49 Venturi Mask 10.0 Venturi Mask 10.0 10/14/18 00:04 Venturi Mask 10.0 Venturi Mask 10.0 10/14/18 00:00 97.7 111 19 146/95 (112) 10/13/18 22:04 97.1 105 18 155/91 (112) 10/13/18 20:35 105 155/91 10/13/18 20:00 Venturi Mask 10.0 Venturi Mask 10.0 10/13/18 20:00 97.1 105 18 159/66 (97) 10/13/18 19:47 96 Venturi Mask 10.0 40 10/13/18 19:47 Venturi Mask 10.0 40 10/13/18 16:00 97.0 103 18 146/90 (108) 95 10/13/18 16:00 Venturi Mask 10.0 Venturi Mask 10.0 10/13/18 14:18 97.2 103 18 117/75 (89) 94 10/13/18 14:10 98.0 101 23 122/80 97 Venturi Mask 10 35 10/13/18 14:00 102 16 113/78 97 Venturi Mask 10 35 10/13/18 13:47 104 19 113/80 97 Venturi Mask 10 35 10/13/18 13:37 104 19 112/83 99 Venturi Mask 10 35 10/13/18 13:27 105 18 108/77 99 Venturi Mask 10 35 10/13/18 13:22 106 23 115/69 99 Venturi Mask 10 35 10/13/18 13:17 97.8 107 31 158/92 95 Venturi Mask 10 35 10/13/18 13:17 101 18 94 Intake and Output 10/13/18 10/14/18 18:59 06:59 Intake Total 785 ml 1090 ml Output Total 770 ml 150 ml Balance 15 ml 940 ml Intake Free Water 30 ml 100 ml IV Total 655 ml 450 ml Tube Feeding 100 ml 540 ml Output Urine Total 750 ml 150 ml Estimated Blood Loss 20 ml General Appearance: WD/WN HEENT: normocephalic, atraumatic Respiratory/Chest: chest wall non-tender, lungs clear Cardiovascular: normal peripheral pulses, normal rate Abdomen: normal bowel sounds, no organomegaly Genitourinary: normal external genitalia Skin: no rash, no lesions Laboratory Tests 10/14/18 08:00: White Blood Count 4.9#, Red Blood Count 3.45L, Hemoglobin 10.7L, Hematocrit 30.9L, Mean Corpuscular Volume 90, Mean Corpuscular Hemoglobin 31.0, Mean Corpuscular Hemoglobin Concent 34.6, Red Cell Distribution Width 12.7, Platelet Count 113L, Mean Platelet Volume 6.7, Neutrophils (%) (Auto) , Lymphocytes (%) ( Auto) , Monocytes (%) (Auto) , Eosinophils (%) (Auto) , Basophils (%) (Auto) , Differential Total Cells Counted 100, Neutrophils % (Manual) 71, Lymphocytes % ( Manual) 13L, Monocytes % (Manual) 6, Eosinophils % (Manual) 0, Basophils % ( Manual) 0, Band Neutrophils 10H, Platelet Estimate DecreasedL, Platelet Morphology Normal, Red Blood Cell Morphology Normal, Prothrombin Time 11.5, Prothromb Time International Ratio 1.1, Activated Partial Thromboplast Time 31, Sodium Level 134L, Potassium Level 3.9, Chloride Level 97L, Carbon Dioxide Level 36H, Anion Gap 1L, Blood Urea Nitrogen 12, Creatinine 0.6, Estimat Glomerular Filtration Rate > 60, Glucose Level 217H, Calcium Level 8.2L, Phosphorus Level 1.2L, Magnesium Level 1.6L, Total Bilirubin 0.3, Aspartate Amino Transf (AST/SGOT) 20, Alanine Aminotransferase (ALT/SGPT) 20, Alkaline Phosphatase 50, Total Protein 5.4L, Albumin 1.6L, Globulin 3.8, Albumin/ Globulin Ratio 0.4L Current Medications Medications (Trade) Dose Ordered Sig/Chace Route PRN Reason Start Time Stop Time Status Last Admin Dose Admin Acetaminophen (Tylenol) 650 mg Q4H PRN ORAL T>100.5 10/13/18 16:30 11/09/18 16:29 Albuterol/ Ipratropium (Albuterol/ Ipratropium) 3 ml Q4H PRN HHN Shortness of Breath 10/13/18 14:30 10/15/18 14:29 Carvedilol (Coreg) 12.5 mg EVERY 12 HOURS NG 10/13/18 21:00 11/12/18 08:59 10/14/18 10:04 Ceftriaxone Sodium 2 gm/ Dextrose 55 ml @ 110 mls/hr Q24H IVPB 10/14/18 16:00 10/19/18 15:59 Dexamethasone (Decadron) 4 mg BID NG 10/13/18 18:00 11/12/18 08:59 10/14/18 10:14 Dextrose (Dextrose 50%) 25 ml Q30M PRN IV Hypoglycemia 10/13/18 16:15 11/09/18 13:14 Dextrose (Dextrose 50%) 50 ml Q30M PRN IV Hypoglycemia 10/13/18 16:15 11/09/18 13:14 Finasteride (Proscar) 5 mg DAILY@2100 ORAL 10/13/18 21:00 11/09/18 20:59 10/13/18 20:34 Gadobutrol (Gadavist) 7.5 mmol NOW PRN IV Radiology Procedure 10/13/18 16:30 10/14/18 16:24 Heparin Sodium (Porcine) (Heparin 5000 units/ml) 5,000 units EVERY 12 HOURS SUBQ 10/13/18 21:00 11/09/18 20:59 Insulin Aspart (NovoLOG) BEFORE MEALS AND HS SUBQ 4/23/19 16:30 11/09/18 16:29 10/14/18 12:09 Lamotrigine (LaMICtal) 25 mg DAILY NG 10/14/18 09:00 11/12/18 08:59 10/14/18 10:15 Lorazepam (Ativan 2mg/ml 1ml) 2 mg Q2H PRN IV For Anxiety 10/13/18 16:30 10/17/18 16:29 Ondansetron HCl (Zofran) 4 mg Q6H PRN IVP Nausea & Vomiting 10/13/18 16:30 11/09/18 16:29 Polyethylene Glycol (Miralax) 17 gm DAILYPRN PRN ORAL Constipation 10/13/18 16:30 11/12/18 16:29 Potassium Phosphate 30 mm/ Sodium Chloride 285 ml @ 47.5 mls/hr ONCE IV 10/14/18 12:00 10/14/18 18:00 10/14/18 12:52 Promethazine HCl/ Codeine (Phenergan with Codeine) 5 ml Q4H PRN ORAL For Cough 10/13/18 16:30 11/09/18 16:29 Sitagliptin Phosphate (Januvia) 50 mg ACBREAKFAST ORAL 10/14/18 06:30 11/10/18 06:29 10/14/18 05:59 Sodium Chloride 1,000 ml @ 50 mls/hr Q20H IV 10/13/18 16:15 11/09/18 13:59 10/14/18 12:52 Tamsulosin HCl (Flomax) 0.4 mg BEDTIME ORAL 10/13/18 21:00 11/09/18 20:59 10/13/18 20:34 Valproic Acid (Depakene) 500 mg Q6HR ORAL 10/13/18 18:00 11/09/18 17:59 10/14/18 12:08 Vancomycin HCl (Vanco rx to dose) 1 ea DAILY PRN MISC . 10/14/18 09:00 11/09/18 13:29 Raul Feng MD Oct 14, 2018 13:06
--- NOTE | 2018-10-14 13:28 | General Progress Note ---
Assessment/Plan Problem List: (1) Brain tumor ICD Codes: D49.6 - Neoplasm of unspecified behavior of brain SNOMED: 345131763 (2) Altered level of consciousness ICD Codes: R40.4 - Transient alteration of awareness SNOMED: 6499416 (3) Diabetes mellitus ICD Codes: E11.9 - Type 2 diabetes mellitus without complications SNOMED: 54672655 (4) Hypertension ICD Codes: I10 - Essential (primary) hypertension SNOMED: 60878334 Assessment: no need for oral diabetic agents since he is not on oral feed glucose values somewhat on higher side change NISS ac / hs to every 6 hours add Levemir 8 units qhs Subjective ROS Limited/Unobtainable: Yes Allergies: Coded Allergies: No Known Allergies (Unverified , 09/27/18) Subjective events noted Item Value Date Time Bedside Blood Glucose 243 mg/dl H 10/14/18 1209 Bedside Blood Glucose 242 mg/dl H 10/14/18 0611 Bedside Blood Glucose 171 mg/dl H 10/13/18 2100 Bedside Blood Glucose 176 mg/dl H 10/13/18 1735 Bedside Blood Glucose 130 mg/dl H 10/13/18 1130 Objective Last 24 Hour Vital Signs Date Time Temp Pulse Resp B/P (MAP) Pulse Ox O2 Delivery O2 Flow Rate FiO2 10/14/18 12:00 98.1 107 18 127/79 (95) 99 10/14/18 10:04 112 122/66 10/14/18 09:45 Venturi Mask 10.0 40 10/14/18 09:45 96 Venturi Mask 10.0 40 10/14/18 09:00 Venturi Mask 10.0 Venturi Mask 10.0 10/14/18 08:00 98.1 106 22 117/77 (90) 96 10/14/18 04:00 97.2 63 18 127/68 (87) 10/14/18 03:49 Venturi Mask 10.0 Venturi Mask 10.0 10/14/18 00:04 Venturi Mask 10.0 Venturi Mask 10.0 10/14/18 00:00 97.7 111 19 146/95 (112) 10/13/18 22:04 97.1 105 18 155/91 (112) 10/13/18 20:35 105 155/91 10/13/18 20:00 Venturi Mask 10.0 Venturi Mask 10.0 10/13/18 20:00 97.1 105 18 159/66 (97) 10/13/18 19:47 96 Venturi Mask 10.0 40 10/13/18 19:47 Venturi Mask 10.0 40 10/13/18 16:00 97.0 103 18 146/90 (108) 95 10/13/18 16:00 Venturi Mask 10.0 Venturi Mask 10.0 10/13/18 14:18 97.2 103 18 117/75 (89) 94 10/13/18 14:10 98.0 101 23 122/80 97 Venturi Mask 10 35 10/13/18 14:00 102 16 113/78 97 Venturi Mask 10 35 10/13/18 13:47 104 19 113/80 97 Venturi Mask 10 35 10/13/18 13:37 104 19 112/83 99 Venturi Mask 10 35 10/13/18 13:27 105 18 108/77 99 Venturi Mask 10 35 Intake and Output 10/13/18 10/14/18 19:00 07:00 Intake Total 785 ml 1070 ml Output Total 920 ml Balance -135 ml 1070 ml Intake Free Water 30 ml 100 ml IV Total 655 ml 450 ml Tube Feeding 100 ml 520 ml Output Urine Total 900 ml Estimated Blood Loss 20 ml Laboratory Tests 10/14/18 08:00: White Blood Count 4.9#, Red Blood Count 3.45L, Hemoglobin 10.7L, Hematocrit 30.9L, Mean Corpuscular Volume 90, Mean Corpuscular Hemoglobin 31.0, Mean Corpuscular Hemoglobin Concent 34.6, Red Cell Distribution Width 12.7, Platelet Count 113L, Mean Platelet Volume 6.7, Neutrophils (%) (Auto) , Lymphocytes (%) ( Auto) , Monocytes (%) (Auto) , Eosinophils (%) (Auto) , Basophils (%) (Auto) , Differential Total Cells Counted 100, Neutrophils % (Manual) 71, Lymphocytes % ( Manual) 13L, Monocytes % (Manual) 6, Eosinophils % (Manual) 0, Basophils % ( Manual) 0, Band Neutrophils 10H, Platelet Estimate DecreasedL, Platelet Morphology Normal, Red Blood Cell Morphology Normal, Prothrombin Time 11.5, Prothromb Time International Ratio 1.1, Activated Partial Thromboplast Time 31, Sodium Level 134L, Potassium Level 3.9, Chloride Level 97L, Carbon Dioxide Level 36H, Anion Gap 1L, Blood Urea Nitrogen 12, Creatinine 0.6, Estimat Glomerular Filtration Rate > 60, Glucose Level 217H, Calcium Level 8.2L, Phosphorus Level 1.2L, Magnesium Level 1.6L, Total Bilirubin 0.3, Aspartate Amino Transf (AST/SGOT) 20, Alanine Aminotransferase (ALT/SGPT) 20, Alkaline Phosphatase 50, Total Protein 5.4L, Albumin 1.6L, Globulin 3.8, Albumin/ Globulin Ratio 0.4L Height (Feet): 5 Height (Inches): 7.00 Weight (Pounds): 148 General Appearance: lethargic Neck: normal alignment Cardiovascular: normal rate Respiratory/Chest: decreased breath sounds Abdomen: normal bowel sounds Pelvis: normal external exam Edema: 1+ Arm (L), 1+ Arm (R), 1+ Leg (L), 1+ Leg (R), 1+ Pedal (L), 1+ Pedal ( R), 1+ Generalized Objective Current Medications Medications (Trade) Dose Ordered Sig/Chace Route PRN Reason Start Time Stop Time Status Last Admin Dose Admin Acetaminophen (Tylenol) 650 mg Q4H PRN ORAL T>100.5 10/13/18 16:30 11/09/18 16:29 Albuterol/ Ipratropium (Albuterol/ Ipratropium) 3 ml Q4H PRN HHN Shortness of Breath 10/13/18 14:30 10/15/18 14:29 Carvedilol (Coreg) 12.5 mg EVERY 12 HOURS NG 10/13/18 21:00 11/12/18 08:59 10/14/18 10:04 Ceftriaxone Sodium 2 gm/ Dextrose 55 ml @ 110 mls/hr Q24H IVPB 10/14/18 16:00 10/19/18 15:59 Dexamethasone (Decadron) 4 mg BID NG 10/13/18 18:00 11/12/18 08:59 10/14/18 10:14 Dextrose (Dextrose 50%) 25 ml Q30M PRN IV Hypoglycemia 10/13/18 16:15 11/09/18 13:14 Dextrose (Dextrose 50%) 50 ml Q30M PRN IV Hypoglycemia 10/13/18 16:15 11/09/18 13:14 Finasteride (Proscar) 5 mg DAILY@2100 ORAL 10/13/18 21:00 11/09/18 20:59 10/13/18 20:34 Gadobutrol (Gadavist) 7.5 mmol NOW PRN IV Radiology Procedure 10/13/18 16:30 10/14/18 16:24 Heparin Sodium (Porcine) (Heparin 5000 units/ml) 5,000 units EVERY 12 HOURS SUBQ 10/13/18 21:00 11/09/18 20:59 Insulin Aspart (NovoLOG) BEFORE MEALS AND HS SUBQ 10/13/18 16:30 11/09/18 16:29 10/14/18 12:09 Lamotrigine (LaMICtal) 25 mg DAILY NG 10/14/18 09:00 11/12/18 08:59 10/14/18 10:15 Lorazepam (Ativan 2mg/ml 1ml) 2 mg Q2H PRN IV For Anxiety 10/13/18 16:30 10/17/18 16:29 Ondansetron HCl (Zofran) 4 mg Q6H PRN IVP Nausea & Vomiting 10/13/18 16:30 11/09/18 16:29 Polyethylene Glycol (Miralax) 17 gm DAILYPRN PRN ORAL Constipation 10/13/18 16:30 11/12/18 16:29 Potassium Phosphate 30 mm/ Sodium Chloride 285 ml @ 47.5 mls/hr ONCE IV 10/14/18 12:00 10/14/18 18:00 10/14/18 12:52 Promethazine HCl/ Codeine (Phenergan with Codeine) 5 ml Q4H PRN ORAL For Cough 10/13/18 16:30 11/09/18 16:29 Sitagliptin Phosphate (Januvia) 50 mg ACBREAKFAST ORAL 10/14/18 06:30 11/10/18 06:29 10/14/18 05:59 Sodium Chloride 1,000 ml @ 50 mls/hr Q20H IV 10/13/18 16:15 11/09/18 13:59 10/14/18 12:52 Tamsulosin HCl (Flomax) 0.4 mg BEDTIME ORAL 10/13/18 21:00 11/09/18 20:59 10/13/18 20:34 Valproic Acid (Depakene) 500 mg Q6HR ORAL 10/13/18 18:00 11/09/18 17:59 10/14/18 12:08 Vancomycin HCl (Vanco rx to dose) 1 ea DAILY PRN MISC . 10/14/18 09:00 11/09/18 13:29 Richard Lugo MD Oct 14, 2018 13:28
--- NOTE | 2018-10-14 13:32 | Infectious Diseases Prog Note ---
Assessment/Plan Assessment/Plan Abx: IV vancomycin 10/10- Cefepime 10/10- Assessment: Sepsis Probable UTI -u/a wbc 30-40, nit neg, leuk +3; ucx >100K E.coli (R Cipro/Levo; otherwise) Gram positive bacteremia, -10/10 BCx 2/ S. hominis, 07/27 S. epi; 10/13 Bcx p -2d Echo: no vegetations seen Infected Sacral decubitus ulcer (necrotic tissue, foul-odor smelling)-chronic OM -10/13 SP Excision of sacral pressure ulcer with coccygectomy and ostectomy. Afebrile Pancytopenia Acute respiratory failure on VM- no obvious PNA on CXR -CXR: Minimal left midlung atelectasis. No acute process otherwise Satisfactory nasogastric intubation, also demonstrated on recent abdomen radiograph -sp cx MRSA, C. albicans (likely colonizers as no PNA on CXR) Acute encephalopathy -CT brain wo: Chronic and age-related changes as described. Postsurgical changes with underlying temporal, parietal, and frontal encephalomalacia. 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 No contrast enhancement to suggest recurrent tumor is evident currently. There is evidence of old peripheral hemorrhage, presumably related to the prior surgery. 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 Negative for acute intracranial bleed, mass effect, infarct, or contrast enhancing lesion. Chronic and age-related changes, as described CVA w/ R hemiparesis and aphasia HTN HLD BPH Dm2 s/p appendectomy s/p tonsillectomy CAD seizure disorder SNF resident Plan: -Continue IV Vancomycin #5 for GPC bacteremia andpending ID and sensi and repeat Bcx and for wound infection -Continue Ceftriaxone #3 (abx d#5) for UTI and for wound infection -10/12 SP Cefepime #3 -f/u cx -Monitor CBC/CMP, temperatures -f/u Bcx x2 (reordered) -wound care per surgical team -aspiration precautions -Sx f/u -f/u wound cx Thank you for this consultation. Will continue to follow along with you. Discussed with RN. Subjective Allergies: Coded Allergies: No Known Allergies (Unverified , 09/27/18) Subjective afebrile on venturi mask no leukocytosis s/p I+D wound yesterday Objective Vital Signs Last 24 Hour Vital Signs Date Time Temp Pulse Resp B/P (MAP) Pulse Ox O2 Delivery O2 Flow Rate FiO2 10/14/18 12:00 98.1 107 18 127/79 (95) 99 10/14/18 10:04 112 122/66 10/14/18 09:45 Venturi Mask 10.0 40 10/14/18 09:45 96 Venturi Mask 10.0 40 10/14/18 09:00 Venturi Mask 10.0 Venturi Mask 10.0 10/14/18 08:00 98.1 106 22 117/77 (90) 96 10/14/18 04:00 97.2 63 18 127/68 (87) 10/14/18 03:49 Venturi Mask 10.0 Venturi Mask 10.0 10/14/18 00:04 Venturi Mask 10.0 Venturi Mask 10.0 10/14/18 00:00 97.7 111 19 146/95 (112) 10/13/18 22:04 97.1 105 18 155/91 (112) 10/13/18 20:35 105 155/91 10/13/18 20:00 Venturi Mask 10.0 Venturi Mask 10.0 10/13/18 20:00 97.1 105 18 159/66 (97) 10/13/18 19:47 96 Venturi Mask 10.0 40 10/13/18 19:47 Venturi Mask 10.0 40 10/13/18 16:00 97.0 103 18 146/90 (108) 95 10/13/18 16:00 Venturi Mask 10.0 Venturi Mask 10.0 10/13/18 14:18 97.2 103 18 117/75 (89) 94 10/13/18 14:10 98.0 101 23 122/80 97 Venturi Mask 10 35 10/13/18 14:00 102 16 113/78 97 Venturi Mask 10 35 10/13/18 13:47 104 19 113/80 97 Venturi Mask 10 35 10/13/18 13:37 104 19 112/83 99 Venturi Mask 10 35 10/13/18 13:27 105 18 108/77 99 Venturi Mask 10 35 Height (Feet): 5 Height (Inches): 7.00 Weight (Pounds): 148 Objective GENERAL: The patient is well-developed and well-nourished male, in moderate respiratory distress. HEENT: Eyes, pupils are equal and responsive to light and accommodation. Extraocular movements are intact. NECK: Supple without lymphadenopathy. CHEST: Lungs are clear to auscultation bilaterally without wheezes or rales. CARDIOVASCULAR: Regular rhythm and rate. S1 and S2 normal without murmurs, rubs, or gallops. ABDOMEN: Soft, nontender, and nondistended. Positive bowel sounds. No evidence of hepatosplenomegaly.Currently, no rebound or guarding noted. EXTREMITIES: Negative for clubbing, cyanosis, or edema. NEUROLOGICAL: Cranial nerves II through XII are grossly intact without focal deficits Laboratory Tests Test 10/14/18 08:00 White Blood Count 4.9 K/UL (4.8-10.8) # Red Blood Count 3.45 M/UL (4.70-6.10) L Hemoglobin 10.7 G/DL (14.2-18.0) L Hematocrit 30.9 % (42.0-52.0) L Mean Corpuscular Volume 90 FL (80-99) Mean Corpuscular Hemoglobin 31.0 PG (27.0-31.0) Mean Corpuscular Hemoglobin Concent 34.6 G/DL (32.0-36.0) Red Cell Distribution Width 12.7 % (11.6-14.8) Platelet Count 113 K/UL (150-450) L Mean Platelet Volume 6.7 FL (6.5-10.1) Neutrophils (%) (Auto) % (45.0-75.0) Lymphocytes (%) (Auto) % (20.0-45.0) Monocytes (%) (Auto) % (1.0-10.0) Eosinophils (%) (Auto) % (0.0-3.0) Basophils (%) (Auto) % (0.0-2.0) Differential Total Cells Counted 100 Neutrophils % (Manual) 71 % (45-75) Lymphocytes % (Manual) 13 % (20-45) L Monocytes % (Manual) 6 % (1-10) Eosinophils % (Manual) 0 % (0-3) Basophils % (Manual) 0 % (0-2) Band Neutrophils 10 % (0-8) H Platelet Estimate Decreased L Platelet Morphology Normal Red Blood Cell Morphology Normal Prothrombin Time 11.5 SEC (9.30-11.50) Prothromb Time International Ratio 1.1 (0.9-1.1) Activated Partial Thromboplast Time 31 SEC (23-33) Sodium Level 134 MMOL/L (136-145) L Potassium Level 3.9 MMOL/L (3.5-5.1) Chloride Level 97 MMOL/L (98-107) L Carbon Dioxide Level 36 MMOL/L (21-32) H Anion Gap 1 mmol/L (5-15) L Blood Urea Nitrogen 12 mg/dL (7-18) Creatinine 0.6 MG/DL (0.55-1.30) Estimat Glomerular Filtration Rate > 60 mL/min (>60) Glucose Level 217 MG/DL (74-106) H Calcium Level 8.2 MG/DL (8.5-10.1) L Phosphorus Level 1.2 MG/DL (2.5-4.9) L Magnesium Level 1.6 MG/DL (1.8-2.4) L Total Bilirubin 0.3 MG/DL (0.2-1.0) Aspartate Amino Transf (AST/SGOT) 20 U/L (15-37) Alanine Aminotransferase (ALT/SGPT) 20 U/L (12-78) Alkaline Phosphatase 50 U/L (46-116) Total Protein 5.4 G/DL (6.4-8.2) L Albumin 1.6 G/DL (3.4-5.0) L Globulin 3.8 g/dL Albumin/Globulin Ratio 0.4 (1.0-2.7) L Current Medications Medications (Trade) Dose Ordered Sig/Chace Route PRN Reason Start Time Stop Time Status Last Admin Dose Admin Acetaminophen (Tylenol) 650 mg Q4H PRN ORAL T>100.5 10/13/18 16:30 11/09/18 16:29 Albuterol/ Ipratropium (Albuterol/ Ipratropium) 3 ml Q4H PRN HHN Shortness of Breath 10/13/18 14:30 10/15/18 14:29 Carvedilol (Coreg) 12.5 mg EVERY 12 HOURS NG 10/13/18 21:00 11/12/18 08:59 10/14/18 10:04 Ceftriaxone Sodium 2 gm/ Dextrose 55 ml @ 110 mls/hr Q24H IVPB 10/14/18 16:00 10/19/18 15:59 Dexamethasone (Decadron) 4 mg BID NG 10/13/18 18:00 11/12/18 08:59 10/14/18 10:14 Dextrose (Dextrose 50%) 25 ml Q30M PRN IV Hypoglycemia 10/13/18 16:15 11/09/18 13:14 Dextrose (Dextrose 50%) 50 ml Q30M PRN IV Hypoglycemia 10/13/18 16:15 11/09/18 13:14 Finasteride (Proscar) 5 mg DAILY@2100 ORAL 10/13/18 21:00 11/09/18 20:59 10/13/18 20:34 Gadobutrol (Gadavist) 7.5 mmol NOW PRN IV Radiology Procedure 10/13/18 16:30 10/14/18 16:24 Heparin Sodium (Porcine) (Heparin 5000 units/ml) 5,000 units EVERY 12 HOURS SUBQ 10/13/18 21:00 11/09/18 20:59 Insulin Aspart (NovoLOG) BEFORE MEALS AND HS SUBQ 10/13/18 16:30 11/09/18 16:29 10/14/18 12:09 Lamotrigine (LaMICtal) 25 mg DAILY NG 10/14/18 09:00 11/12/18 08:59 10/14/18 10:15 Lorazepam (Ativan 2mg/ml 1ml) 2 mg Q2H PRN IV For Anxiety 10/13/18 16:30 10/17/18 16:29 Ondansetron HCl (Zofran) 4 mg Q6H PRN IVP Nausea & Vomiting 10/13/18 16:30 11/09/18 16:29 Polyethylene Glycol (Miralax) 17 gm DAILYPRN PRN ORAL Constipation 10/13/18 16:30 11/12/18 16:29 Potassium Phosphate 30 mm/ Sodium Chloride 285 ml @ 47.5 mls/hr ONCE IV 10/14/18 12:00 10/14/18 18:00 10/14/18 12:52 Promethazine HCl/ Codeine (Phenergan with Codeine) 5 ml Q4H PRN ORAL For Cough 10/13/18 16:30 11/09/18 16:29 Sitagliptin Phosphate (Januvia) 50 mg ACBREAKFAST ORAL 10/14/18 06:30 11/10/18 06:29 10/14/18 05:59 Sodium Chloride 1,000 ml @ 50 mls/hr Q20H IV 10/13/18 16:15 11/09/18 13:59 10/14/18 12:52 Tamsulosin HCl (Flomax) 0.4 mg BEDTIME ORAL 10/13/18 21:00 11/09/18 20:59 10/13/18 20:34 Valproic Acid (Depakene) 500 mg Q6HR ORAL 10/13/18 18:00 11/09/18 17:59 10/14/18 12:08 Vancomycin HCl (Vanco rx to dose) 1 ea DAILY PRN MISC . 10/14/18 09:00 11/09/18 13:29 Brandie Carlos M.D. Oct 14, 2018 13:32
--- NOTE | 2018-10-14 13:37 | 48 Hour Post Anesthesia Eval ---
Post Anesthesia Evaluation Procedure: Excision Sacral Ulcer Date of Evaluation: Oct 14, 2018 Time of Evaluation: 13:35 Blood Pressure Systolic: 127 0: 79 Pulse Rate: 107 Respiratory Rate: 18 Temperature (Fahrenheit): 98.1 O2 Sat by Pulse Oximetry: 99 Airway: patent Nausea: No Vomiting: No Pain Intensity: 1 Hydration Status: adequate Cardiopulmonary Status: Stable Mental Status/LOC: patient returned to baseline Follow-up Care/Observations: 0 Post-Anesthesia Complications: 0 Follow-up care needed: N/A Saqib Roberson MD Oct 14, 2018 13:37
[2018-10-14] MEDS: cefTRIAXone 2 GM in D5W 55 ML IVPB SCH (15:18)
[2018-10-14 16:00] VITALS: BP 130/82
--- NOTE | 2018-10-14 16:37 | General Progress Note ---
Progress Note Progress Note Surgery: doing well. comfortable. no n/v/f/c. wound looks much better today. clean without necrotic tissue. no foul odor. good bleeding tissue noted nurses doing great job with dressings cont with dressing changes TID thank you Harry Rivas Oct 14, 2018 16:37
[2018-10-14] MEDS ORDERED: 1/2 NS 1000ml IV ONE (17:22)
[2018-10-14] MEDS ORDERED: Tubing IV Secondary IV ONE (17:22)
--- NOTE | 2018-10-14 19:31 | Internal Med Progress Note ---
Subjective Date of Service: Oct 14, 2018 Physician Name Jesus Kidd Attending Physician Camacho Braun MD Current Medications Medications (Trade) Dose Ordered Sig/Chace Route PRN Reason Start Time Stop Time Status Last Admin Dose Admin Acetaminophen (Tylenol) 650 mg Q4H PRN ORAL T>100.5 10/13/18 16:30 11/09/18 16:29 Albuterol/ Ipratropium (Albuterol/ Ipratropium) 3 ml Q4H PRN HHN Shortness of Breath 10/13/18 14:30 10/15/18 14:29 Carvedilol (Coreg) 12.5 mg EVERY 12 HOURS NG 10/13/18 21:00 11/12/18 08:59 10/14/18 10:04 Ceftriaxone Sodium 2 gm/ Dextrose 55 ml @ 110 mls/hr Q24H IVPB 10/14/18 16:00 10/19/18 15:59 10/14/18 15:18 Dexamethasone (Decadron) 4 mg BID NG 10/13/18 18:00 11/12/18 08:59 10/14/18 17:13 Dextrose (Dextrose 50%) 25 ml Q30M PRN IV Hypoglycemia 10/14/18 13:30 11/13/18 13:29 Dextrose (Dextrose 50%) 50 ml Q30M PRN IV Hypoglycemia 10/14/18 13:30 11/13/18 13:29 Finasteride (Proscar) 5 mg DAILY@2100 ORAL 10/13/18 21:00 11/09/18 20:59 10/13/18 20:34 Heparin Sodium (Porcine) (Heparin 5000 units/ml) 5,000 units EVERY 12 HOURS SUBQ 10/13/18 21:00 11/09/18 20:59 Insulin Aspart (NovoLOG) EVERY 6 HOURS SUBQ 10/14/18 18:00 11/09/18 16:29 10/14/18 17:15 Insulin Detemir (Levemir) 8 units BEDTIME SUBQ 10/14/18 21:00 11/13/18 20:59 Lamotrigine (LaMICtal) 25 mg DAILY NG 10/14/18 09:00 11/12/18 08:59 10/14/18 10:15 Lorazepam (Ativan 2mg/ml 1ml) 2 mg Q2H PRN IV For Anxiety 10/13/18 16:30 10/17/18 16:29 Ondansetron HCl (Zofran) 4 mg Q6H PRN IVP Nausea & Vomiting 10/13/18 16:30 11/09/18 16:29 Polyethylene Glycol (Miralax) 17 gm DAILYPRN PRN ORAL Constipation 10/13/18 16:30 11/12/18 16:29 Promethazine HCl/ Codeine (Phenergan with Codeine) 5 ml Q4H PRN ORAL For Cough 10/13/18 16:30 11/09/18 16:29 Sodium Chloride 1,000 ml @ 50 mls/hr Q20H IV 10/13/18 16:15 11/09/18 13:59 10/14/18 12:52 Tamsulosin HCl (Flomax) 0.4 mg BEDTIME ORAL 10/13/18 21:00 11/09/18 20:59 10/13/18 20:34 Valproic Acid (Depakene) 500 mg Q6HR ORAL 10/13/18 18:00 11/09/18 17:59 10/14/18 17:13 Vancomycin HCl (Vanco rx to dose) 1 ea DAILY PRN MISC . 10/14/18 09:00 11/09/18 13:29 Allergies: Coded Allergies: No Known Allergies (Unverified , 09/27/18) ROS Limited/Unobtainable: Yes Subjective 68 YO M with history of brain cancer admitted with altered mental status. Now UTI and sepsis. Cover for Int Patel-Dr Braun Objective Last Vital Signs Date Time Temp Pulse Resp B/P (MAP) Pulse Ox O2 Delivery O2 Flow Rate FiO2 10/14/18 16:00 97.7 102 20 130/82 (98) 97 10/14/18 09:45 Venturi Mask 10.0 40 Laboratory Tests Test 10/14/18 08:00 White Blood Count 4.9 K/UL (4.8-10.8) # Red Blood Count 3.45 M/UL (4.70-6.10) L Hemoglobin 10.7 G/DL (14.2-18.0) L Hematocrit 30.9 % (42.0-52.0) L Mean Corpuscular Volume 90 FL (80-99) Mean Corpuscular Hemoglobin 31.0 PG (27.0-31.0) Mean Corpuscular Hemoglobin Concent 34.6 G/DL (32.0-36.0) Red Cell Distribution Width 12.7 % (11.6-14.8) Platelet Count 113 K/UL (150-450) L Mean Platelet Volume 6.7 FL (6.5-10.1) Neutrophils (%) (Auto) % (45.0-75.0) Lymphocytes (%) (Auto) % (20.0-45.0) Monocytes (%) (Auto) % (1.0-10.0) Eosinophils (%) (Auto) % (0.0-3.0) Basophils (%) (Auto) % (0.0-2.0) Differential Total Cells Counted 100 Neutrophils % (Manual) 71 % (45-75) Lymphocytes % (Manual) 13 % (20-45) L Monocytes % (Manual) 6 % (1-10) Eosinophils % (Manual) 0 % (0-3) Basophils % (Manual) 0 % (0-2) Band Neutrophils 10 % (0-8) H Platelet Estimate Decreased L Platelet Morphology Normal Red Blood Cell Morphology Normal Prothrombin Time 11.5 SEC (9.30-11.50) Prothromb Time International Ratio 1.1 (0.9-1.1) Activated Partial Thromboplast Time 31 SEC (23-33) Sodium Level 134 MMOL/L (136-145) L Potassium Level 3.9 MMOL/L (3.5-5.1) Chloride Level 97 MMOL/L (98-107) L Carbon Dioxide Level 36 MMOL/L (21-32) H Anion Gap 1 mmol/L (5-15) L Blood Urea Nitrogen 12 mg/dL (7-18) Creatinine 0.6 MG/DL (0.55-1.30) Estimat Glomerular Filtration Rate > 60 mL/min (>60) Glucose Level 217 MG/DL (74-106) H Calcium Level 8.2 MG/DL (8.5-10.1) L Phosphorus Level 1.2 MG/DL (2.5-4.9) L Magnesium Level 1.6 MG/DL (1.8-2.4) L Total Bilirubin 0.3 MG/DL (0.2-1.0) Aspartate Amino Transf (AST/SGOT) 20 U/L (15-37) Alanine Aminotransferase (ALT/SGPT) 20 U/L (12-78) Alkaline Phosphatase 50 U/L (46-116) Total Protein 5.4 G/DL (6.4-8.2) L Albumin 1.6 G/DL (3.4-5.0) L Globulin 3.8 g/dL Albumin/Globulin Ratio 0.4 (1.0-2.7) L Intake and Output 10/13/18 10/14/18 18:59 06:59 Intake Total 785 ml 1090 ml Output Total 770 ml 150 ml Balance 15 ml 940 ml Intake Free Water 30 ml 100 ml IV Total 655 ml 450 ml Tube Feeding 100 ml 540 ml Output Urine Total 750 ml 150 ml Estimated Blood Loss 20 ml Objective PHYSICAL EXAMINATION: GENERAL: The patient is well-developed and well-nourished male, in moderate respiratory distress. HEENT: Eyes, pupils are equal and responsive to light and accommodation. Extraocular movements are intact. NECK: Supple without lymphadenopathy. CHEST: Lungs are clear to auscultation bilaterally without wheezes or rales. CARDIOVASCULAR: Regular rhythm and rate. S1 and S2 normal without murmurs, rubs, or gallops. ABDOMEN: Soft, nontender, and nondistended. Positive bowel sounds. No evidence of hepatosplenomegaly, rebound or guarding noted. EXTREMITIES: Negative for clubbing, cyanosis, or edema. RECTAL/GENITAL: Not performed. NEUROLOGICAL: Cranial nerves II through XII are grossly intact without focal deficits Assessment/Plan Assessment/Plan ASSESSMENT: This is a 68-year-old male. 1. Altered mental status. 2. Urinary tract infection-E. Coli 3. Brain cancer. 4. Seizure disorder. 5. Diabetes type 2. 6. History of cerebrovascular accident. 7. Right hemiparesis. 8. Hypertension. 9. Coronary artery disease. 10. Expressive aphasia. 11. Hypercholesterolemia. 12. Sepsis-Staph species 13 Sacral decubitus ulcer TREATMENT: 1. Altered mental status. This may be secondary to urinary tract infection. Urine culture is pending. The patient has been started empirically on vancomycin and cefepime. Await urine cultures. 2. Urinary tract infection-E.Coli. Urine culture ID and sensitivity is pending. Abx=ceftriaxone per ID follow recommendations of Infectious Diseases. 3. Brain cancer. 4. Seizure disorder. Continue Depakote and Lamictal as above. 5. Diabetes type 2. A NovoLog sliding scale has been instituted. 6. History of cerebrovascular accident. 7. Right hemiparesis. 8. Expressive aphasia. 9. Hypertension. The patient is currently hypotensive. 10. History of coronary artery disease. 11. Sepsis=Staph species; continue vanco per ID 12. Hospice Jesus Carranza MD Oct 14, 2018 19:31
[2018-10-14 20:00] VITALS: BP 126/73
[2018-10-14] MEDS ORDERED: Levemir Flexpen SUBQ SCH (21:00)
[2018-10-14] MEDS: Tamsulosin 0.4mg cap ORAL SCH (21:20)
[2018-10-15] VITALS (7 sets, daily range): BP systolic 109–119; BP diastolic 64–78
[2018-10-15] MEDS: NovoLOG Insulin Flexpen SUBQ SCH ×4 (01:06→17:50)
[2018-10-15] MEDS: Valproic Acid 250mg/5ml Liquid ORAL SCH ×4 (01:07→17:47)
--- NOTE | 2018-10-15 06:35 | General Progress Note ---
Assessment/Plan Problem List: (1) Brain tumor ICD Codes: D49.6 - Neoplasm of unspecified behavior of brain SNOMED: 110242946 (2) Altered level of consciousness ICD Codes: R40.4 - Transient alteration of awareness SNOMED: 1238133 (3) Diabetes mellitus ICD Codes: E11.9 - Type 2 diabetes mellitus without complications SNOMED: 51519547 (4) Hypertension ICD Codes: I10 - Essential (primary) hypertension SNOMED: 22137866 Status: stable, not improved Assessment/Plan: increase Levemir to 8 units bid continue NISS every 6 hours Subjective ROS Limited/Unobtainable: Yes Allergies: Coded Allergies: No Known Allergies (Unverified , 09/27/18) Subjective events noted Item Value Date Time Bedside Blood Glucose 227 mg/dl H 10/15/18 0617 Bedside Blood Glucose 262 mg/dl H 10/15/18 0106 Bedside Blood Glucose 256 mg/dl H 10/14/18 2120 Bedside Blood Glucose 294 mg/dl H 10/14/18 1715 Bedside Blood Glucose 243 mg/dl H 10/14/18 1209 Bedside Blood Glucose 242 mg/dl H 10/14/18 0611 Objective Last 24 Hour Vital Signs Date Time Temp Pulse Resp B/P (MAP) Pulse Ox O2 Delivery O2 Flow Rate FiO2 10/15/18 04:00 98.3 101 19 113/64 (80) 97 10/15/18 00:00 98.9 98 18 118/75 (89) 95 10/14/18 21:18 107 126/73 10/14/18 21:00 Venturi Mask 10.0 Venturi Mask 10.0 10/14/18 20:00 98.8 107 18 126/73 (90) 98 10/14/18 19:46 102 20 Venturi Mask 10.0 40 10/14/18 19:46 Venturi Mask 10.0 40 10/14/18 19:46 97 Venturi Mask 10.0 40 10/14/18 16:00 97.7 102 20 130/82 (98) 97 10/14/18 13:37 107 18 99 10/14/18 12:00 98.1 107 18 127/79 (95) 99 10/14/18 10:04 112 122/66 10/14/18 09:45 Venturi Mask 10.0 40 10/14/18 09:45 96 Venturi Mask 10.0 40 10/14/18 09:00 Venturi Mask 10.0 Venturi Mask 10.0 10/14/18 08:00 98.1 106 22 117/77 (90) 96 Intake and Output 10/14/18 10/15/18 18:59 06:59 Intake Total 367.5 ml 1395 ml Output Total 2200 ml 1600 ml Balance -1832.5 ml -205 ml Intake Free Water 200 ml 180 ml IV Total 102.5 ml 500 ml Tube Feeding 65 ml 715 ml Output Urine Total 2200 ml 1600 ml # Bowel Movements 1 Laboratory Tests 10/14/18 08:00: White Blood Count 4.9#, Red Blood Count 3.45L, Hemoglobin 10.7L, Hematocrit 30.9L, Mean Corpuscular Volume 90, Mean Corpuscular Hemoglobin 31.0, Mean Corpuscular Hemoglobin Concent 34.6, Red Cell Distribution Width 12.7, Platelet Count 113L, Mean Platelet Volume 6.7, Neutrophils (%) (Auto) , Lymphocytes (%) ( Auto) , Monocytes (%) (Auto) , Eosinophils (%) (Auto) , Basophils (%) (Auto) , Differential Total Cells Counted 100, Neutrophils % (Manual) 71, Lymphocytes % ( Manual) 13L, Monocytes % (Manual) 6, Eosinophils % (Manual) 0, Basophils % ( Manual) 0, Band Neutrophils 10H, Platelet Estimate DecreasedL, Platelet Morphology Normal, Red Blood Cell Morphology Normal, Prothrombin Time 11.5, Prothromb Time International Ratio 1.1, Activated Partial Thromboplast Time 31, Sodium Level 134L, Potassium Level 3.9, Chloride Level 97L, Carbon Dioxide Level 36H, Anion Gap 1L, Blood Urea Nitrogen 12, Creatinine 0.6, Estimat Glomerular Filtration Rate > 60, Glucose Level 217H, Calcium Level 8.2L, Phosphorus Level 1.2L, Magnesium Level 1.6L, Total Bilirubin 0.3, Aspartate Amino Transf (AST/SGOT) 20, Alanine Aminotransferase (ALT/SGPT) 20, Alkaline Phosphatase 50, Total Protein 5.4L, Albumin 1.6L, Globulin 3.8, Albumin/ Globulin Ratio 0.4L Height (Feet): 5 Height (Inches): 7.00 Weight (Pounds): 148 General Appearance: lethargic Neck: normal alignment Cardiovascular: normal rate Respiratory/Chest: decreased breath sounds Abdomen: normal bowel sounds Pelvis: normal external exam Objective Current Medications Medications (Trade) Dose Ordered Sig/Chace Route PRN Reason Start Time Stop Time Status Last Admin Dose Admin Acetaminophen (Tylenol) 650 mg Q4H PRN ORAL T>100.5 10/13/18 16:30 11/09/18 16:29 Albuterol/ Ipratropium (Albuterol/ Ipratropium) 3 ml Q4H PRN HHN Shortness of Breath 10/13/18 14:30 10/15/18 14:29 Carvedilol (Coreg) 12.5 mg EVERY 12 HOURS NG 10/13/18 21:00 11/12/18 08:59 10/14/18 21:18 Ceftriaxone Sodium 2 gm/ Dextrose 55 ml @ 110 mls/hr Q24H IVPB 10/14/18 16:00 10/19/18 15:59 10/14/18 15:18 Dexamethasone (Decadron) 4 mg BID NG 10/13/18 18:00 11/12/18 08:59 10/14/18 17:13 Dextrose (Dextrose 50%) 25 ml Q30M PRN IV Hypoglycemia 10/14/18 13:30 11/13/18 13:29 Dextrose (Dextrose 50%) 50 ml Q30M PRN IV Hypoglycemia 10/14/18 13:30 11/13/18 13:29 Finasteride (Proscar) 5 mg DAILY@2100 ORAL 10/13/18 21:00 11/09/18 20:59 10/14/18 21:18 Heparin Sodium (Porcine) (Heparin 5000 units/ml) 5,000 units EVERY 12 HOURS SUBQ 10/13/18 21:00 11/09/18 20:59 Insulin Aspart (NovoLOG) EVERY 6 HOURS SUBQ 10/14/18 18:00 11/09/18 16:29 10/15/18 06:09 Insulin Detemir (Levemir) 8 units BEDTIME SUBQ 10/14/18 21:00 11/13/18 20:59 10/14/18 21:20 Lamotrigine (LaMICtal) 25 mg DAILY NG 10/14/18 09:00 11/12/18 08:59 10/14/18 10:15 Lorazepam (Ativan 2mg/ml 1ml) 2 mg Q2H PRN IV For Anxiety 10/13/18 16:30 10/17/18 16:29 Ondansetron HCl (Zofran) 4 mg Q6H PRN IVP Nausea & Vomiting 10/13/18 16:30 11/09/18 16:29 Polyethylene Glycol (Miralax) 17 gm DAILYPRN PRN ORAL Constipation 10/13/18 16:30 11/12/18 16:29 Promethazine HCl/ Codeine (Phenergan with Codeine) 5 ml Q4H PRN ORAL For Cough 10/13/18 16:30 11/09/18 16:29 Sodium Chloride 1,000 ml @ 50 mls/hr Q20H IV 10/13/18 16:15 11/09/18 13:59 10/14/18 12:52 Tamsulosin HCl (Flomax) 0.4 mg BEDTIME ORAL 10/13/18 21:00 11/09/18 20:59 10/14/18 21:20 Valproic Acid (Depakene) 500 mg Q6HR ORAL 10/13/18 18:00 11/09/18 17:59 10/15/18 06:03 Vancomycin HCl (Vanco rx to dose) 1 ea DAILY PRN MISC . 10/14/18 09:00 11/09/18 13:29 Richard Lugo MD Oct 15, 2018 06:35
[2018-10-15 07:21] LABS: BASOPHILS % (AUTO) 1.1 % (0.0-2.0); EOSINOPHILS % (AUTO) 0.4 % (0.0-3.0); HEMATOCRIT 29.6 % (42.0-52.0); HEMOGLOBIN 10.1 G/DL (14.2-18.0); LYMPHOCYTES % (AUTO) 8.7 % (20.0-45.0); MEAN CORPUSCULAR VOLUME 91 FL (80-99); MONOCYTES % (AUTO) 6.9 % (1.0-10.0); NEUTROPHILS % (AUTO) 82.9 % (45.0-75.0); PLATELET COUNT 116 K/UL (150-450); RED BLOOD COUNT 3.26 M/UL (4.70-6.10); WHITE BLOOD COUNT 4.5 K/UL (4.8-10.8)
[2018-10-15 07:32] LABS: ANION GAP 3 mmol/L (5-15); BLOOD UREA NITROGEN 12 mg/dL (7-18); CALCIUM 8.4 MG/DL (8.5-10.1); CARBON DIOXIDE 34 MMOL/L (21-32); CHLORIDE 98 MMOL/L (98-107); CREATININE 0.6 MG/DL (0.55-1.30); POTASSIUM 4.2 MMOL/L (3.5-5.1); SODIUM 135 MMOL/L (136-145)
[2018-10-15] MEDS: Carvedilol 12.5mg tab NG SCH ×2 (08:47→21:51)
[2018-10-15] MEDS: Heparin 5000 units/ml inj SUBQ SCH ×2 (08:49→21:00)
[2018-10-15] MEDS: Levemir Flexpen SUBQ SCH ×2 (08:55→17:49)
[2018-10-15 11:17] LABS: PHOSPHORUS 2.6 MG/DL (2.5-4.9)
--- NOTE | 2018-10-15 12:51 | Infectious Diseases Prog Note ---
Assessment/Plan Assessment/Plan Abx: IV vancomycin 10/10- Cefepime 10/10- Assessment: Sepsis Probable UTI -u/a wbc 30-40, nit neg, leuk +3; ucx >100K E.coli (R Cipro/Levo; otherwise) Gram positive bacteremia, -10/10 BCx 09/24 S. hominis, S. epi; 10/13 Bcx NTD -2d Echo: no vegetations seen Infected Sacral decubitus ulcer (necrotic tissue, foul-odor smelling)-chronic OM -10/13 SP Excision of sacral pressure ulcer with coccygectomy and ostectomy. Afebrile Pancytopenia Acute respiratory failure on VM- no obvious PNA on CXR -CXR: Minimal left midlung atelectasis. No acute process otherwise Satisfactory nasogastric intubation, also demonstrated on recent abdomen radiograph -sp cx MRSA, C. albicans (likely colonizers as no PNA on CXR) Acute encephalopathy -CT brain wo: Chronic and age-related changes as described. Postsurgical changes with underlying temporal, parietal, and frontal encephalomalacia. 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 No contrast enhancement to suggest recurrent tumor is evident currently. There is evidence of old peripheral hemorrhage, presumably related to the prior surgery. 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 Negative for acute intracranial bleed, mass effect, infarct, or contrast enhancing lesion. Chronic and age-related changes, as described CVA w/ R hemiparesis and aphasia HTN HLD BPH Dm2 s/p appendectomy s/p tonsillectomy CAD seizure disorder SNF resident Plan: -Continue IV Vancomycin #11/30- for wound infection -Continue Ceftriaxone #4 (abx d#11/30-) for UTI and for wound infection -10/12 SP Cefepime #3 -f/u cx -Monitor CBC/CMP, temperatures -f/u Bcx x2 (reordered) -wound care per surgical team -aspiration precautions -Sx f/u -f/u wound cx Thank you for this consultation. Will continue to follow along with you. Discussed with RN. Subjective Allergies: Coded Allergies: No Known Allergies (Unverified , 09/27/18) Subjective afebrile no leukocytosis Objective Vital Signs Last 24 Hour Vital Signs Date Time Temp Pulse Resp B/P (MAP) Pulse Ox O2 Delivery O2 Flow Rate FiO2 10/15/18 09:00 Venturi Mask 10.0 Venturi Mask 10.0 10/15/18 08:47 96 115/68 10/15/18 08:20 98.1 96 19 115/68 (84) 96 10/15/18 07:25 105 18 Venturi Mask 10.0 40 10/15/18 07:25 97 Venturi Mask 10.0 40 10/15/18 07:25 Venturi Mask 10.0 40 10/15/18 04:00 98.3 101 19 113/64 (80) 97 10/15/18 00:00 98.9 98 18 118/75 (89) 95 10/14/18 21:18 107 126/73 10/14/18 21:00 Venturi Mask 10.0 Venturi Mask 10.0 10/14/18 20:00 98.8 107 18 126/73 (90) 98 10/14/18 19:46 102 20 Venturi Mask 10.0 40 10/14/18 19:46 Venturi Mask 10.0 40 10/14/18 19:46 97 Venturi Mask 10.0 40 10/14/18 16:00 97.7 102 20 130/82 (98) 97 10/14/18 13:37 107 18 99 Height (Feet): 5 Height (Inches): 7.00 Weight (Pounds): 148 Objective GENERAL: The patient is well-developed and well-nourished male, in moderate respiratory distress. HEENT: Eyes, pupils are equal and responsive to light and accommodation. Extraocular movements are intact. NECK: Supple without lymphadenopathy. CHEST: Lungs are clear to auscultation bilaterally without wheezes or rales. CARDIOVASCULAR: Regular rhythm and rate. S1 and S2 normal without murmurs, rubs, or gallops. ABDOMEN: Soft, nontender, and nondistended. Positive bowel sounds. No evidence of hepatosplenomegaly.Currently, no rebound or guarding noted. EXTREMITIES: Negative for clubbing, cyanosis, or edema. NEUROLOGICAL: Cranial nerves II through XII are grossly intact without focal deficits Microbiology Date/Time Source Procedure Growth Status 10/13/18 17:35 Blood Blood Culture - Preliminary NO GROWTH AFTER 24 HOURS Resulted 10/13/18 17:20 Blood Blood Culture - Preliminary NO GROWTH AFTER 24 HOURS Resulted Laboratory Tests Test 10/15/18 05:24 White Blood Count 4.5 K/UL (4.8-10.8) L Red Blood Count 3.26 M/UL (4.70-6.10) L Hemoglobin 10.1 G/DL (14.2-18.0) L Hematocrit 29.6 % (42.0-52.0) L Mean Corpuscular Volume 91 FL (80-99) Mean Corpuscular Hemoglobin 31.0 PG (27.0-31.0) Mean Corpuscular Hemoglobin Concent 34.2 G/DL (32.0-36.0) Red Cell Distribution Width 13.0 % (11.6-14.8) Platelet Count 116 K/UL (150-450) L Mean Platelet Volume 6.5 FL (6.5-10.1) Neutrophils (%) (Auto) 82.9 % (45.0-75.0) H Lymphocytes (%) (Auto) 8.7 % (20.0-45.0) L Monocytes (%) (Auto) 6.9 % (1.0-10.0) Eosinophils (%) (Auto) 0.4 % (0.0-3.0) Basophils (%) (Auto) 1.1 % (0.0-2.0) Sodium Level 135 MMOL/L (136-145) L Potassium Level 4.2 MMOL/L (3.5-5.1) Chloride Level 98 MMOL/L (98-107) Carbon Dioxide Level 34 MMOL/L (21-32) H Anion Gap 3 mmol/L (5-15) L Blood Urea Nitrogen 12 mg/dL (7-18) Creatinine 0.6 MG/DL (0.55-1.30) Estimat Glomerular Filtration Rate > 60 mL/min (>60) Glucose Level 251 MG/DL (74-106) H Calcium Level 8.4 MG/DL (8.5-10.1) L Phosphorus Level 2.6 MG/DL (2.5-4.9) Magnesium Level 1.8 MG/DL (1.8-2.4) Current Medications Medications (Trade) Dose Ordered Sig/Chace Route PRN Reason Start Time Stop Time Status Last Admin Dose Admin Acetaminophen (Tylenol) 650 mg Q4H PRN ORAL T>100.5 10/13/18 16:30 11/09/18 16:29 Albuterol/ Ipratropium (Albuterol/ Ipratropium) 3 ml Q4H PRN HHN Shortness of Breath 10/13/18 14:30 10/15/18 14:29 Carvedilol (Coreg) 12.5 mg EVERY 12 HOURS NG 10/13/18 21:00 11/12/18 08:59 10/15/18 08:47 Ceftriaxone Sodium 2 gm/ Dextrose 55 ml @ 110 mls/hr Q24H IVPB 10/14/18 16:00 10/19/18 15:59 10/14/18 15:18 Dexamethasone (Decadron) 4 mg BID NG 10/13/18 18:00 11/12/18 08:59 10/15/18 08:48 Dextrose (Dextrose 50%) 25 ml Q30M PRN IV Hypoglycemia 10/14/18 13:30 11/13/18 13:29 Dextrose (Dextrose 50%) 50 ml Q30M PRN IV Hypoglycemia 10/14/18 13:30 11/13/18 13:29 Finasteride (Proscar) 5 mg DAILY@2100 ORAL 10/13/18 21:00 11/09/18 20:59 10/14/18 21:18 Heparin Sodium (Porcine) (Heparin 5000 units/ml) 5,000 units EVERY 12 HOURS SUBQ 10/13/18 21:00 11/09/18 20:59 Insulin Aspart (NovoLOG) EVERY 6 HOURS SUBQ 10/14/18 18:00 11/09/18 16:29 10/15/18 06:09 Insulin Detemir (Levemir) 8 units BID SUBQ 10/15/18 09:00 11/13/18 20:59 10/15/18 08:55 Lamotrigine (LaMICtal) 25 mg DAILY NG 10/14/18 09:00 11/12/18 08:59 10/15/18 08:48 Lorazepam (Ativan 2mg/ml 1ml) 2 mg Q2H PRN IV For Anxiety 10/13/18 16:30 10/17/18 16:29 Ondansetron HCl (Zofran) 4 mg Q6H PRN IVP Nausea & Vomiting 10/13/18 16:30 11/09/18 16:29 Polyethylene Glycol (Miralax) 17 gm DAILYPRN PRN ORAL Constipation 10/13/18 16:30 11/12/18 16:29 Promethazine HCl/ Codeine (Phenergan with Codeine) 5 ml Q4H PRN ORAL For Cough 10/13/18 16:30 11/09/18 16:29 Sodium Chloride 1,000 ml @ 50 mls/hr Q20H IV 10/13/18 16:15 11/09/18 13:59 10/15/18 08:49 Tamsulosin HCl (Flomax) 0.4 mg BEDTIME ORAL 10/13/18 21:00 11/09/18 20:59 10/14/18 21:20 Valproic Acid (Depakene) 500 mg Q6HR ORAL 10/13/18 18:00 11/09/18 17:59 10/15/18 06:03 Vancomycin HCl (Vanco rx to dose) 1 ea DAILY PRN MISC . 10/14/18 09:00 11/09/18 13:29 Brandie Carlos M.D. Oct 15, 2018 12:51
--- NOTE | 2018-10-15 13:26 | Pulmonology Progress Note ---
Assessment/Plan Problems: (1) acute toxic encephalopathy (2) Sepsis (3) Brain tumor (4) Sacral decubitus ulcer (5) Hypertension (6) Diabetes mellitus (7) History of CVA (cerebrovascular accident) Assessment/Plan still somnolent ON NG tube feeding MRI of brain done Encephalomalacia of the left anterior temporal lobe and adjacent frontal and parietal opercula; swallow study pending because pt is still too lethargic f/u cultures continue abx sliding scale monitor BP dvt prophylaxis Subjective ROS Limited/Unobtainable: No Constitutional: Reports: no symptoms HEENT: Repors: no symptoms Allergies: Coded Allergies: No Known Allergies (Unverified , 09/27/18) Objective Last 24 Hour Vital Signs Date Time Temp Pulse Resp B/P (MAP) Pulse Ox O2 Delivery O2 Flow Rate FiO2 10/15/18 09:00 Venturi Mask 10.0 Venturi Mask 10.0 10/15/18 08:47 96 115/68 10/15/18 08:20 98.1 96 19 115/68 (84) 96 10/15/18 07:25 105 18 Venturi Mask 10.0 40 10/15/18 07:25 97 Venturi Mask 10.0 40 10/15/18 07:25 Venturi Mask 10.0 40 10/15/18 04:00 98.3 101 19 113/64 (80) 97 10/15/18 00:00 98.9 98 18 118/75 (89) 95 10/14/18 21:18 107 126/73 10/14/18 21:00 Venturi Mask 10.0 Venturi Mask 10.0 10/14/18 20:00 98.8 107 18 126/73 (90) 98 10/14/18 19:46 102 20 Venturi Mask 10.0 40 10/14/18 19:46 Venturi Mask 10.0 40 10/14/18 19:46 97 Venturi Mask 10.0 40 10/14/18 16:00 97.7 102 20 130/82 (98) 97 10/14/18 13:37 107 18 99 Intake and Output 10/14/18 10/15/18 19:00 07:00 Intake Total 482.5 ml 1445 ml Output Total 2200 ml 1600 ml Balance -1717.5 ml -155 ml Intake Free Water 200 ml 180 ml IV Total 152.5 ml 550 ml Tube Feeding 130 ml 715 ml Output Urine Total 2200 ml 1600 ml # Bowel Movements 1 General Appearance: WD/WN HEENT: normocephalic, atraumatic Respiratory/Chest: chest wall non-tender, lungs clear Cardiovascular: normal peripheral pulses, regular rhythm Abdomen: normal bowel sounds, soft, non tender Genitourinary: normal external genitalia Skin: no lesions Microbiology Date/Time Source Procedure Growth Status 10/13/18 17:35 Blood Blood Culture - Preliminary NO GROWTH AFTER 24 HOURS Resulted 10/13/18 17:20 Blood Blood Culture - Preliminary NO GROWTH AFTER 24 HOURS Resulted Laboratory Tests 10/15/18 05:24: White Blood Count 4.5L, Red Blood Count 3.26L, Hemoglobin 10.1L, Hematocrit 29.6L, Mean Corpuscular Volume 91, Mean Corpuscular Hemoglobin 31.0, Mean Corpuscular Hemoglobin Concent 34.2, Red Cell Distribution Width 13.0, Platelet Count 116L, Mean Platelet Volume 6.5, Neutrophils (%) (Auto) 82.9H, Lymphocytes (%) (Auto) 8.7L, Monocytes (%) (Auto) 6.9, Eosinophils (%) (Auto) 0.4, Basophils (%) (Auto) 1.1, Sodium Level 135L, Potassium Level 4.2, Chloride Level 98, Carbon Dioxide Level 34H, Anion Gap 3L, Blood Urea Nitrogen 12, Creatinine 0.6, Estimat Glomerular Filtration Rate > 60, Glucose Level 251H, Calcium Level 8.4L, Phosphorus Level 2.6, Magnesium Level 1.8 Current Medications Medications (Trade) Dose Ordered Sig/Chace Route PRN Reason Start Time Stop Time Status Last Admin Dose Admin Acetaminophen (Tylenol) 650 mg Q4H PRN ORAL T>100.5 10/13/18 16:30 11/09/18 16:29 Albuterol/ Ipratropium (Albuterol/ Ipratropium) 3 ml Q4H PRN HHN Shortness of Breath 10/13/18 14:30 10/15/18 14:29 Carvedilol (Coreg) 12.5 mg EVERY 12 HOURS NG 10/13/18 21:00 11/12/18 08:59 10/15/18 08:47 Ceftriaxone Sodium 2 gm/ Dextrose 55 ml @ 110 mls/hr Q24H IVPB 4/24/19 16:00 10/19/18 15:59 10/14/18 15:18 Dexamethasone (Decadron) 4 mg BID NG 10/13/18 18:00 11/12/18 08:59 10/15/18 08:48 Dextrose (Dextrose 50%) 25 ml Q30M PRN IV Hypoglycemia 10/14/18 13:30 11/13/18 13:29 Dextrose (Dextrose 50%) 50 ml Q30M PRN IV Hypoglycemia 10/14/18 13:30 11/13/18 13:29 Finasteride (Proscar) 5 mg DAILY@2100 ORAL 10/13/18 21:00 11/09/18 20:59 10/14/18 21:18 Heparin Sodium (Porcine) (Heparin 5000 units/ml) 5,000 units EVERY 12 HOURS SUBQ 10/13/18 21:00 11/09/18 20:59 Insulin Aspart (NovoLOG) EVERY 6 HOURS SUBQ 10/14/18 18:00 11/09/18 16:29 10/15/18 12:52 Insulin Detemir (Levemir) 8 units BID SUBQ 10/15/18 09:00 11/13/18 20:59 10/15/18 08:55 Lamotrigine (LaMICtal) 25 mg DAILY NG 10/14/18 09:00 11/12/18 08:59 10/15/18 08:48 Lorazepam (Ativan 2mg/ml 1ml) 2 mg Q2H PRN IV For Anxiety 10/13/18 16:30 10/17/18 16:29 Ondansetron HCl (Zofran) 4 mg Q6H PRN IVP Nausea & Vomiting 10/13/18 16:30 11/09/18 16:29 Polyethylene Glycol (Miralax) 17 gm DAILYPRN PRN ORAL Constipation 10/13/18 16:30 11/12/18 16:29 Promethazine HCl/ Codeine (Phenergan with Codeine) 5 ml Q4H PRN ORAL For Cough 10/13/18 16:30 11/09/18 16:29 Sodium Chloride 1,000 ml @ 50 mls/hr Q20H IV 10/13/18 16:15 11/09/18 13:59 10/15/18 08:49 Tamsulosin HCl (Flomax) 0.4 mg BEDTIME ORAL 10/13/18 21:00 11/09/18 20:59 10/14/18 21:20 Valproic Acid (Depakene) 500 mg Q6HR ORAL 10/13/18 18:00 11/09/18 17:59 10/15/18 12:53 Vancomycin HCl (Vanco rx to dose) 1 ea DAILY PRN MISC . 10/14/18 09:00 11/09/18 13:29 Raul Feng MD Oct 15, 2018 13:26
[2018-10-15] MEDS ORDERED: Vancomycin 1.25gm Premix IVPB SCH (16:00)
[2018-10-15] MEDS: cefTRIAXone 2 GM in D5W 55 ML IVPB SCH (16:21)
--- NOTE | 2018-10-15 18:40 | Neurology Progress Note ---
Interim History Interim History ROS Limited/Unobtainable: Yes Complaints: Seizure/ AMS Events: More alert and wakeful with eyes tracking now Interim History Lowered Lamictal by 25mg BID and today reduced Valproate from 2g / day to 1g/ day- no evidence of seizures at this time. Objective Physical Exam Last Vital Signs Date Time Temp Pulse Resp B/P (MAP) Pulse Ox O2 Delivery O2 Flow Rate FiO2 10/15/18 16:00 98.6 104 18 109/68 (82) 99 10/15/18 09:00 Venturi Mask 10.0 Venturi Mask 10.0 10/15/18 07:25 40 Laboratory Tests Test 10/15/18 05:24 White Blood Count 4.5 K/UL (4.8-10.8) L Red Blood Count 3.26 M/UL (4.70-6.10) L Hemoglobin 10.1 G/DL (14.2-18.0) L Hematocrit 29.6 % (42.0-52.0) L Mean Corpuscular Volume 91 FL (80-99) Mean Corpuscular Hemoglobin 31.0 PG (27.0-31.0) Mean Corpuscular Hemoglobin Concent 34.2 G/DL (32.0-36.0) Red Cell Distribution Width 13.0 % (11.6-14.8) Platelet Count 116 K/UL (150-450) L Mean Platelet Volume 6.5 FL (6.5-10.1) Neutrophils (%) (Auto) 82.9 % (45.0-75.0) H Lymphocytes (%) (Auto) 8.7 % (20.0-45.0) L Monocytes (%) (Auto) 6.9 % (1.0-10.0) Eosinophils (%) (Auto) 0.4 % (0.0-3.0) Basophils (%) (Auto) 1.1 % (0.0-2.0) Sodium Level 135 MMOL/L (136-145) L Potassium Level 4.2 MMOL/L (3.5-5.1) Chloride Level 98 MMOL/L (98-107) Carbon Dioxide Level 34 MMOL/L (21-32) H Anion Gap 3 mmol/L (5-15) L Blood Urea Nitrogen 12 mg/dL (7-18) Creatinine 0.6 MG/DL (0.55-1.30) Estimat Glomerular Filtration Rate > 60 mL/min (>60) Glucose Level 251 MG/DL (74-106) H Calcium Level 8.4 MG/DL (8.5-10.1) L Phosphorus Level 2.6 MG/DL (2.5-4.9) Magnesium Level 1.8 MG/DL (1.8-2.4) General: well developed, well nourished Head: normocophalic Neck: no rigidity EENT: benign Neurologic Exam Mental Status: awake, alert, other - Still non verbal and not following commands but significantly more alert than previously. Speech: other Cranial Nerve II: other Cranial Nerves III, IV, : PERRLA, EOMI, pupils Cranial Nerve VII: other - Some baseline facial asymmetry - due to previous infarct Cranial Nerve IX: normal palate elevation Cranial Nerve XI: SCM symmetric Motor System: normal muscle tone Sensory: normal pinprick, normal light touch, other - Some sensory loss on right side but not completely - requiring increased intensity of stimuli to be felt though. Deep Tendon Reflexes: 2+ bicep (L), 2+ bicep (R), 2+ tricep (L), 2+ tricep (R) , 2+ brachioradialis (L), 2+ brachioradialis (R), 2+ knee (L), 2+ knee (R), 2+ ankle (L), 2+ ankle (R) Stance: normal Gait: stable, normal regular, heel + toe gait Objective Awake and alert now but not following commands and non verbal- only making sounds Localizing on left side/ withdrawal only on right side . Impression/Recommendations Problems: (1) Acute encephalopathy Assessment & Plan: CT Brain normal and pupils have returned to PERLL Increasingly alert with AED reduction 10/13/18 Reduced Lamictal 25mg BID 10/15/18 Reduced Valproate 500mg QID to 500mg BID (2) Deep tissue injury (3) acute toxic encephalopathy Assessment & Plan: Frequent stimulation of patient Q 4 hour neuro obs (4) Altered level of consciousness Assessment & Plan: PT/ OT Eval Na 135-145 OOB to chair as soon as able. Abx as per ID team Maintain normothermia with Tylenol / coolling blanket as need. MRI Brain with no evidence of infact but questionable area of met disease recurrence within original resection site vs pseudoprogression (5) Sepsis Assessment & Plan: Treat with IV abx as per ID (6) Brain tumor Assessment & Plan: MRI Brain w/ Contrast for investigation of recurrent primary tumor . CT taken in September did not demonstrate mass effect but also not the most sensitive test for detecting intraparenchymal masses. (7) History of CVA (cerebrovascular accident) Assessment & Plan: Dense right plegia at baseline, no rigidity or spasticity noted Localizing x 2 on left side to noxious stimuli but with dense sensory deficit on right side and limited response, although movement of right side is visible. MRI Brain w/wo for investigation of new CVA vs Mass (8) Diabetes mellitus Assessment & Plan: Normoglycemia with ISS (9) Hypertension Assessment & Plan: Maintain SBP<140 with antiHTN meds. Status: stable, progressing, not improved Recommendations Reduced Valproic Acid dose today. Now on 500mg BID - Will monitor for seizure activity - Renewed Q4 hour neuro obs DR. JIMENEZ will discuss MRI and managment with patient's neuro-oncologist Dr. Naldo Wiseman at [facility] Vidya Sun N.P. Oct 15, 2018 18:40
--- NOTE | 2018-10-15 20:34 | Internal Med Progress Note ---
Subjective Date of Service: Oct 15, 2018 Physician Name Jesus Kidd Attending Physician Camacho Braun MD Current Medications Medications (Trade) Dose Ordered Sig/Chace Route PRN Reason Start Time Stop Time Status Last Admin Dose Admin Acetaminophen (Tylenol) 650 mg Q4H PRN ORAL T>100.5 10/13/18 16:30 11/09/18 16:29 Carvedilol (Coreg) 12.5 mg EVERY 12 HOURS NG 10/13/18 21:00 11/12/18 08:59 10/15/18 08:47 Ceftriaxone Sodium 2 gm/ Dextrose 55 ml @ 110 mls/hr Q24H IVPB 10/14/18 16:00 10/19/18 15:59 10/15/18 16:21 Dexamethasone (Decadron) 4 mg BID NG 10/13/18 18:00 11/12/18 08:59 10/15/18 17:47 Dextrose (Dextrose 50%) 25 ml Q30M PRN IV Hypoglycemia 10/14/18 13:30 11/13/18 13:29 Dextrose (Dextrose 50%) 50 ml Q30M PRN IV Hypoglycemia 10/14/18 13:30 11/13/18 13:29 Finasteride (Proscar) 5 mg DAILY@2100 ORAL 10/13/18 21:00 11/09/18 20:59 10/14/18 21:18 Heparin Sodium (Porcine) (Heparin 5000 units/ml) 5,000 units EVERY 12 HOURS SUBQ 10/13/18 21:00 11/09/18 20:59 Insulin Aspart (NovoLOG) EVERY 6 HOURS SUBQ 10/14/18 18:00 11/09/18 16:29 10/15/18 17:50 Insulin Detemir (Levemir) 8 units BID SUBQ 10/15/18 09:00 11/13/18 20:59 10/15/18 17:49 Lamotrigine (LaMICtal) 25 mg DAILY NG 10/14/18 09:00 11/12/18 08:59 10/15/18 08:48 Lorazepam (Ativan 2mg/ml 1ml) 2 mg Q2H PRN IV For Anxiety 10/13/18 16:30 10/17/18 16:29 Ondansetron HCl (Zofran) 4 mg Q6H PRN IVP Nausea & Vomiting 10/13/18 16:30 11/09/18 16:29 Polyethylene Glycol (Miralax) 17 gm DAILYPRN PRN ORAL Constipation 10/13/18 16:30 11/12/18 16:29 Promethazine HCl/ Codeine (Phenergan with Codeine) 5 ml Q4H PRN ORAL For Cough 10/13/18 16:30 11/09/18 16:29 Sodium Chloride 1,000 ml @ 50 mls/hr Q20H IV 10/13/18 16:15 11/09/18 13:59 10/15/18 08:49 Tamsulosin HCl (Flomax) 0.4 mg BEDTIME ORAL 10/13/18 21:00 11/09/18 20:59 10/14/18 21:20 Valproic Acid (Depakene) 500 mg BID ORAL 10/16/18 09:00 11/09/18 17:59 Vancomycin HCl (Vanco rx to dose) 1 ea DAILY PRN MISC . 10/14/18 09:00 11/09/18 13:29 Vancomycin HCl 750 mg/Sodium Chloride 275 ml @ 183.333 mls/hr Q8H IVPB 10/16/18 00:00 10/21/18 00:00 Allergies: Coded Allergies: No Known Allergies (Unverified , 09/27/18) Subjective 68 YO M with history of brain cancer admitted with altered mental status. Now UTI and sepsis. Cover for Int Med-Dr Braun Objective Last Vital Signs Date Time Temp Pulse Resp B/P (MAP) Pulse Ox O2 Delivery O2 Flow Rate FiO2 10/15/18 19:36 99 Venturi Mask 10.0 40 10/15/18 19:36 96 18 10/15/18 16:00 98.6 109/68 (82) Laboratory Tests Test 10/15/18 05:24 White Blood Count 4.5 K/UL (4.8-10.8) L Red Blood Count 3.26 M/UL (4.70-6.10) L Hemoglobin 10.1 G/DL (14.2-18.0) L Hematocrit 29.6 % (42.0-52.0) L Mean Corpuscular Volume 91 FL (80-99) Mean Corpuscular Hemoglobin 31.0 PG (27.0-31.0) Mean Corpuscular Hemoglobin Concent 34.2 G/DL (32.0-36.0) Red Cell Distribution Width 13.0 % (11.6-14.8) Platelet Count 116 K/UL (150-450) L Mean Platelet Volume 6.5 FL (6.5-10.1) Neutrophils (%) (Auto) 82.9 % (45.0-75.0) H Lymphocytes (%) (Auto) 8.7 % (20.0-45.0) L Monocytes (%) (Auto) 6.9 % (1.0-10.0) Eosinophils (%) (Auto) 0.4 % (0.0-3.0) Basophils (%) (Auto) 1.1 % (0.0-2.0) Sodium Level 135 MMOL/L (136-145) L Potassium Level 4.2 MMOL/L (3.5-5.1) Chloride Level 98 MMOL/L (98-107) Carbon Dioxide Level 34 MMOL/L (21-32) H Anion Gap 3 mmol/L (5-15) L Blood Urea Nitrogen 12 mg/dL (7-18) Creatinine 0.6 MG/DL (0.55-1.30) Estimat Glomerular Filtration Rate > 60 mL/min (>60) Glucose Level 251 MG/DL (74-106) H Calcium Level 8.4 MG/DL (8.5-10.1) L Phosphorus Level 2.6 MG/DL (2.5-4.9) Magnesium Level 1.8 MG/DL (1.8-2.4) Microbiology Date/Time Source Procedure Growth Status 10/13/18 17:35 Blood Blood Culture - Preliminary NO GROWTH AFTER 24 HOURS Resulted 10/13/18 17:20 Blood Blood Culture - Preliminary NO GROWTH AFTER 24 HOURS Resulted Intake and Output 10/14/18 10/15/18 18:59 06:59 Intake Total 367.5 ml 1560 ml Output Total 2200 ml 1600 ml Balance -1832.5 ml -40 ml Intake Free Water 200 ml 180 ml IV Total 102.5 ml 600 ml Tube Feeding 65 ml 780 ml Output Urine Total 2200 ml 1600 ml # Bowel Movements 1 Objective PHYSICAL EXAMINATION: GENERAL: The patient is well-developed and well-nourished male, in moderate respiratory distress. HEENT: Eyes, pupils are equal and responsive to light and accommodation. Extraocular movements are intact. NECK: Supple without lymphadenopathy. CHEST: Lungs are clear to auscultation bilaterally without wheezes or rales. CARDIOVASCULAR: Regular rhythm and rate. S1 and S2 normal without murmurs, rubs, or gallops. ABDOMEN: Soft, nontender, and nondistended. Positive bowel sounds. No evidence of hepatosplenomegaly, rebound or guarding noted. EXTREMITIES: Negative for clubbing, cyanosis, or edema. RECTAL/GENITAL: Not performed. NEUROLOGICAL: Cranial nerves II through XII are grossly intact without focal deficits Assessment/Plan Assessment/Plan ASSESSMENT: This is a 68-year-old male. 1. Altered mental status. 2. Urinary tract infection-E. Coli 3. Brain cancer. 4. Seizure disorder. 5. Diabetes type 2. 6. History of cerebrovascular accident. 7. Right hemiparesis. 8. Hypertension. 9. Coronary artery disease. 10. Expressive aphasia. 11. Hypercholesterolemia. 12. Sepsis-Staph Epidermidis and Staph Hominis 13 Sacral decubitus ulcer TREATMENT: 1. Altered mental status. This may be secondary to urinary tract infection. Urine culture is pending. The patient has been started empirically on vancomycin and cefepime. Await urine cultures. 2. Urinary tract infection-E.Coli. Urine culture ID and sensitivity is pending. Abx=ceftriaxone per ID follow recommendations of Infectious Diseases. 3. Brain cancer. 4. Seizure disorder. Continue Depakote and Lamictal as above. 5. Diabetes type 2. A NovoLog sliding scale has been instituted. 6. History of cerebrovascular accident. 7. Right hemiparesis. 8. Expressive aphasia. 9. Hypertension. The patient is currently hypotensive. 10. History of coronary artery disease. 11. Sepsis=Staph species; continue vanco per ID 12. Hospice Jesus Carranza MD Oct 15, 2018 20:34
[2018-10-15] MEDS: Tamsulosin 0.4mg cap ORAL SCH (21:50)
[2018-10-16] VITALS (7 sets, daily range): BP systolic 121–161; BP diastolic 69–95
[2018-10-16] MEDS: Vancomycin 750mg/NS 275ml IVPB SCH ×4 (00:48→08:33)
[2018-10-16] MEDS: NovoLOG Insulin Flexpen SUBQ SCH ×5 (01:29→23:58)
--- NOTE | 2018-10-16 06:50 | General Progress Note ---
Assessment/Plan Problem List: (1) Brain tumor ICD Codes: D49.6 - Neoplasm of unspecified behavior of brain SNOMED: 547535330 (2) Altered level of consciousness ICD Codes: R40.4 - Transient alteration of awareness SNOMED: 2905653 (3) Diabetes mellitus ICD Codes: E11.9 - Type 2 diabetes mellitus without complications SNOMED: 52285364 (4) Hypertension ICD Codes: I10 - Essential (primary) hypertension SNOMED: 63995019 Status: stable, not improved Assessment/Plan: increase Levemir to 10 units bid continue NISS every 6 hours Subjective ROS Limited/Unobtainable: Yes Allergies: Coded Allergies: No Known Allergies (Unverified , 09/27/18) Subjective events noted Item Value Date Time Bedside Blood Glucose 217 mg/dl H 10/16/18 0636 Bedside Blood Glucose 177 mg/dl H 10/16/18 0129 Bedside Blood Glucose 195 mg/dl H 10/15/18 2100 Bedside Blood Glucose 227 mg/dl H 10/15/18 1750 Bedside Blood Glucose 277 mg/dl H 10/15/18 1252 Bedside Blood Glucose 227 mg/dl H 10/15/18 0855 Bedside Blood Glucose 227 mg/dl H 10/15/18 0617 Bedside Blood Glucose 262 mg/dl H 10/15/18 0106 Objective Last 24 Hour Vital Signs Date Time Temp Pulse Resp B/P (MAP) Pulse Ox O2 Delivery O2 Flow Rate FiO2 10/16/18 04:00 98.3 111 18 161/95 (117) 99 10/16/18 00:00 97.3 106 19 121/71 (88) 99 10/15/18 21:51 96 109/68 10/15/18 21:00 98.0 18 119/78 (92) 96 10/15/18 21:00 Venturi Mask 10.0 Venturi Mask 10.0 10/15/18 20:00 98.0 103 18 119/78 (92) 96 10/15/18 19:36 99 Venturi Mask 10.0 40 10/15/18 19:36 96 18 Venturi Mask 10.0 40 10/15/18 19:36 Venturi Mask 10.0 40 10/15/18 16:00 98.6 104 18 109/68 (82) 99 10/15/18 12:00 98.1 100 18 115/72 (86) 98 10/15/18 09:00 Venturi Mask 10.0 Venturi Mask 10.0 10/15/18 08:47 96 115/68 10/15/18 08:20 98.1 96 19 115/ (84) 96 10/15/18 07:25 105 18 Venturi Mask 10.0 40 10/15/18 07:25 97 Venturi Mask 10.0 40 10/15/18 07:25 Venturi Mask 10.0 40 Intake and Output 10/15/18 10/16/18 19:00 07:00 Intake Total 190 ml 850 ml Output Total 2800 ml Balance -2610 ml 850 ml Intake Free Water 60 ml 200 ml Tube Feeding 130 ml 650 ml Output Urine Total 2800 ml # Bowel Movements 1 Laboratory Tests 10/16/18 05:35: White Blood Count [Pending], Red Blood Count [Pending], Hemoglobin [Pending], Hematocrit [Pending], Mean Corpuscular Volume [Pending], Mean Corpuscular Hemoglobin [Pending], Mean Corpuscular Hemoglobin Concent [Pending], Red Cell Distribution Width [Pending], Platelet Count [Pending], Mean Platelet Volume [ Pending], Neutrophils (%) (Auto) [Pending], Lymphocytes (%) (Auto) [Pending], Monocytes (%) (Auto) [Pending], Eosinophils (%) (Auto) [Pending], Basophils (%) (Auto) [Pending], Sodium Level [Pending], Potassium Level [Pending], Chloride Level [Pending], Carbon Dioxide Level [Pending], Blood Urea Nitrogen [Pending], Creatinine [Pending], Estimat Glomerular Filtration Rate [Pending], Glucose Level [Pending], Calcium Level [Pending] Height (Feet): 5 Height (Inches): 7.00 Weight (Pounds): 148 General Appearance: lethargic Neck: normal alignment Cardiovascular: normal rate Respiratory/Chest: decreased breath sounds Abdomen: normal bowel sounds Edema: 1+ Arm (L), 1+ Arm (R), 1+ Leg (L), 1+ Leg (R), 1+ Pedal (L), 1+ Pedal ( R), 1+ Generalized Objective Current Medications Medications (Trade) Dose Ordered Sig/Chace Route PRN Reason Start Time Stop Time Status Last Admin Dose Admin Acetaminophen (Tylenol) 650 mg Q4H PRN ORAL T>100.5 10/13/18 16:30 11/09/18 16:29 Carvedilol (Coreg) 12.5 mg EVERY 12 HOURS NG 10/13/18 21:00 11/12/18 08:59 10/15/18 21:51 Ceftriaxone Sodium 2 gm/ Dextrose 55 ml @ 110 mls/hr Q24H IVPB 10/14/18 16:00 10/19/18 15:59 10/15/18 16:21 Dexamethasone (Decadron) 4 mg BID NG 10/13/18 18:00 11/12/18 08:59 10/15/18 17:47 Dextrose (Dextrose 50%) 25 ml Q30M PRN IV Hypoglycemia 10/14/18 13:30 11/13/18 13:29 Dextrose (Dextrose 50%) 50 ml Q30M PRN IV Hypoglycemia 10/14/18 13:30 11/13/18 13:29 Finasteride (Proscar) 5 mg DAILY@2100 ORAL 10/13/18 21:00 11/09/18 20:59 10/15/18 21:50 Heparin Sodium (Porcine) (Heparin 5000 units/ml) 5,000 units EVERY 12 HOURS SUBQ 10/13/18 21:00 11/09/18 20:59 Insulin Aspart (NovoLOG) EVERY 6 HOURS SUBQ 10/14/18 18:00 11/09/18 16:29 10/16/18 06:36 Insulin Detemir (Levemir) 8 units BID SUBQ 10/15/18 09:00 11/13/18 20:59 10/15/18 17:49 Lamotrigine (LaMICtal) 25 mg DAILY NG 10/14/18 09:00 11/12/18 08:59 10/15/18 08:48 Lorazepam (Ativan 2mg/ml 1ml) 2 mg Q2H PRN IV For Anxiety 10/13/18 16:30 10/17/18 16:29 Ondansetron HCl (Zofran) 4 mg Q6H PRN IVP Nausea & Vomiting 10/13/18 16:30 11/09/18 16:29 Polyethylene Glycol (Miralax) 17 gm DAILYPRN PRN ORAL Constipation 10/13/18 16:30 11/12/18 16:29 Promethazine HCl/ Codeine (Phenergan with Codeine) 5 ml Q4H PRN ORAL For Cough 10/13/18 16:30 11/09/18 16:29 Sodium Chloride 1,000 ml @ 50 mls/hr Q20H IV 10/13/18 16:15 11/09/18 13:59 10/15/18 08:49 Tamsulosin HCl (Flomax) 0.4 mg BEDTIME ORAL 10/13/18 21:00 11/09/18 20:59 10/15/18 21:50 Valproic Acid (Depakene) 500 mg BID ORAL 10/16/18 09:00 11/09/18 17:59 Vancomycin HCl (Vanco rx to dose) 1 ea DAILY PRN MISC . 10/14/18 09:00 11/09/18 13:29 Vancomycin HCl 750 mg/Sodium Chloride 275 ml @ 183.333 mls/hr Q8H IVPB 10/16/18 00:00 10/21/18 00:00 10/16/18 00:48 Richard Lugo MD Oct 16, 2018 06:50
[2018-10-16 06:59] LABS: ANION GAP 2 mmol/L (5-15); BLOOD UREA NITROGEN 12 mg/dL (7-18); CALCIUM 8.5 MG/DL (8.5-10.1); CARBON DIOXIDE 34 MMOL/L (21-32); CHLORIDE 97 MMOL/L (98-107); CREATININE 0.6 MG/DL (0.55-1.30); HEMATOCRIT 31.4 % (42.0-52.0); HEMOGLOBIN 11.1 G/DL (14.2-18.0); MEAN CORPUSCULAR VOLUME 90 FL (80-99); PLATELET COUNT 125 K/UL (150-450); POTASSIUM 4.4 MMOL/L (3.5-5.1); RED BLOOD COUNT 3.48 M/UL (4.70-6.10); RED CELL DISTRIBUTION WIDTH 12.9 % (11.6-14.8); SODIUM 133 MMOL/L (136-145); WHITE BLOOD COUNT 5.5 K/UL (4.8-10.8)
[2018-10-16] MEDS: Carvedilol 12.5mg tab NG SCH ×2 (08:33→20:57)
[2018-10-16] MEDS: Heparin 5000 units/ml inj SUBQ SCH ×2 (08:49→20:58)
[2018-10-16] MEDS ORDERED: Valproic Acid 250mg/5ml Liquid ORAL SCH (09:00)
[2018-10-16] MEDS: Levemir Flexpen SUBQ SCH ×2 (09:26→18:20)
--- NOTE | 2018-10-16 15:07 | Cardiology Report ---
APPROVED REPORT EXAM: Two-dimensional and M-mode echocardiogram with Doppler and color Doppler. M-Mode DIMENSIONS IVSd1.1 (0.7-1.1cm)Left Atrium (MM)2.3 (1.6-4.0cm) LVDd3.3 (3.5-5.6cm)Aortic Root2.8 (2.0-3.7cm) PWd1.0 (0.7-1.1cm)Aortic Cusp Exc.1.7 (1.5-2.0cm) IVSs1.1 cm LVDs2.6 (2.5-4.0cm) PWs1.1 cm Other Information Technically limited study due to combative patient . Normal left ventricular chamber size with anteroseptal wall hypokinesis and apical akinesis . Left ventricular ejection fraction estimated to be 20-25 %. Mild left ventricular hypertrophy. Anterior Echo-free space, may be due to pericardial fat or effusion. All other cardiac chamber sizes are within normal limits. Focal aortic valve sclerosis with normal cusp excursion. Thickened mitral valve leaflets with normal excursion. Mitral annulus and aortic root calcification. Normal pulmonic valve structure. Normal tricuspid valve structure. IVC at normal size with physiologic collapse. A color flow and spectral Doppler study was performed and revealed: No aortic regurgitation. Trace mitral regurgitation. Mitral diastolic velocities suggest reduced left ventricular relaxation c/w mild LV diastolic dysfunction (Grade I ). Trace tricuspid regurgitation. Tricuspid systolic velocities suggests peak right ventricular systolic pressure of 14mmHg.
[2018-10-16] MEDS: cefTRIAXone 2 GM in D5W 55 ML IVPB SCH (15:47)
--- NOTE | 2018-10-16 16:03 | Cardiology Report ---
APPROVED REPORT EKG Measurement Heart [id number] Sinus tachycardia Left axis deviation Low voltage QRS Inferior infarct, age undetermined Cannot rule out Anteroseptal infarct, age undetermined Abnormal ECG
[2018-10-16] MEDS ORDERED: LORazepam Inj 2mg/ml 1ml IV PRN (16:22)
--- NOTE | 2018-10-16 16:30 | Pulmonology Progress Note ---
Assessment/Plan Problems: (1) acute toxic encephalopathy (2) Sepsis (3) Brain tumor (4) Sacral decubitus ulcer (5) Hypertension (6) Diabetes mellitus (7) History of CVA (cerebrovascular accident) Assessment/Plan more awake ON NG tube feeding MRI of brain done Encephalomalacia of the left anterior temporal lobe and adjacent frontal and parietal opercula; swallow study pending because pt is still too lethargic f/u cultures continue abx sliding scale monitor BP dvt prophylaxis talked to pts son, he doens't want his father to be on any seizure meds. Subjective ROS Limited/Unobtainable: No Constitutional: Reports: no symptoms HEENT: Repors: no symptoms Allergies: Coded Allergies: No Known Allergies (Unverified , 09/27/18) Objective Last 24 Hour Vital Signs Date Time Temp Pulse Resp B/P (MAP) Pulse Ox O2 Delivery O2 Flow Rate FiO2 10/16/18 12:00 98.6 101 18 149/87 (107) 99 10/16/18 10:55 99 Venturi Mask 10.0 40 10/16/18 10:55 99 18 Venturi Mask 10.0 40 10/16/18 10:55 Venturi Mask 10.0 40 10/16/18 09:00 Venturi Mask 10.0 Venturi Mask 10.0 10/16/18 08:33 100 133/80 10/16/18 08:00 98.3 99 18 155/89 (111) 99 10/16/18 05:23 100 133/80 (97) 10/16/18 04:00 98.3 111 18 161/95 (117) 99 10/16/18 00:00 97.3 106 19 121/71 (88) 99 10/15/18 21:51 96 109/68 10/15/18 21:00 98.0 18 119/78 (92) 96 10/15/18 21:00 Venturi Mask 10.0 Venturi Mask 10.0 10/15/18 20:00 98.0 103 18 119/78 (92) 96 10/15/18 19:36 99 Venturi Mask 10.0 40 10/15/18 19:36 96 18 Venturi Mask 10.0 40 10/15/18 19:36 Venturi Mask 10.0 40 Intake and Output 10/15/18 10/16/18 19:00 07:00 Intake Total 190 ml 850 ml Output Total 2800 ml Balance -2610 ml 850 ml Intake Free Water 60 ml 200 ml Tube Feeding 130 ml 650 ml Output Urine Total 2800 ml # Bowel Movements 1 Objective General Appearance: WD/WN HEENT: normocephalic, atraumatic Respiratory/Chest: chest wall non-tender, normal breath sounds Cardiovascular: normal peripheral pulses, normal rate Abdomen: normal bowel sounds, soft, non tender, no organomegaly, non distended Extremities: no cyanosis Skin: no rash, no lesions, no ulcers Microbiology Date/Time Source Procedure Growth Status 10/13/18 17:35 Blood Blood Culture - Preliminary NO GROWTH AFTER 48 HOURS Resulted 10/13/18 17:20 Blood Blood Culture - Preliminary NO GROWTH AFTER 48 HOURS Resulted Laboratory Tests 10/16/18 05:35: White Blood Count 5.5, Red Blood Count 3.48L, Hemoglobin 11.1L, Hematocrit 31.4L , Mean Corpuscular Volume 90, Mean Corpuscular Hemoglobin 31.8H, Mean Corpuscular Hemoglobin Concent 35.2, Red Cell Distribution Width 12.9, Platelet Count 125L, Mean Platelet Volume 6.0L, Neutrophils (%) (Auto) , Lymphocytes (%) (Auto) , Monocytes (%) (Auto) , Eosinophils (%) (Auto) , Basophils (%) (Auto) , Differential Total Cells Counted 100, Neutrophils % (Manual) 55, Lymphocytes % ( Manual) 7L, Monocytes % (Manual) 5, Eosinophils % (Manual) 0, Basophils % ( Manual) 0, Metamyelocytes % 1H, Myelocytes % 4H, Band Neutrophils 28H, Platelet Estimate DecreasedL, Platelet Morphology Normal, Red Blood Cell Morphology Normal, Sodium Level 133L, Potassium Level 4.4, Chloride Level 97L, Carbon Dioxide Level 34H, Anion Gap 2L, Blood Urea Nitrogen 12, Creatinine 0.6, Estimat Glomerular Filtration Rate > 60, Glucose Level 217H, Calcium Level 8.5 10/16/18 14:50: Vancomycin Level Trough 9.1 Current Medications Medications (Trade) Dose Ordered Sig/Chace Route PRN Reason Start Time Stop Time Status Last Admin Dose Admin Acetaminophen (Tylenol) 650 mg Q4H PRN ORAL T>100.5 10/13/18 16:30 11/09/18 16:29 Carvedilol (Coreg) 12.5 mg EVERY 12 HOURS NG 10/13/18 21:00 11/12/18 08:59 10/16/18 08:33 Ceftriaxone Sodium 2 gm/ Dextrose 55 ml @ 110 mls/hr Q24H IVPB 10/14/18 16:00 10/19/18 15:59 10/16/18 15:47 Dexamethasone (Decadron) 4 mg BID NG 10/13/18 18:00 11/12/18 08:59 10/16/18 08:33 Dextrose (Dextrose 50%) 25 ml Q30M PRN IV Hypoglycemia 10/14/18 13:30 11/13/18 13:29 Dextrose (Dextrose 50%) 50 ml Q30M PRN IV Hypoglycemia 10/14/18 13:30 11/13/18 13:29 Finasteride (Proscar) 5 mg DAILY@2100 ORAL 10/13/18 21:00 11/09/18 20:59 10/15/18 21:50 Heparin Sodium (Porcine) (Heparin 5000 units/ml) 5,000 units EVERY 12 HOURS SUBQ 10/13/18 21:00 11/09/18 20:59 Insulin Aspart (NovoLOG) EVERY 6 HOURS SUBQ 10/14/18 18:00 11/09/18 16:29 10/16/18 13:00 Insulin Detemir (Levemir) 10 units BID SUBQ 10/16/18 09:00 11/13/18 20:59 10/16/18 09:26 Lorazepam (Ativan 2mg/ml 1ml) 1 mg Q2H PRN IV For Anxiety 10/16/18 16:22 10/23/18 16:21 Ondansetron HCl (Zofran) 4 mg Q6H PRN IVP Nausea & Vomiting 10/13/18 16:30 11/09/18 16:29 Polyethylene Glycol (Miralax) 17 gm DAILYPRN PRN ORAL Constipation 10/13/18 16:30 11/12/18 16:29 Promethazine HCl/ Codeine (Phenergan with Codeine) 5 ml Q4H PRN ORAL For Cough 10/13/18 16:30 11/09/18 16:29 Sodium Chloride 1,000 ml @ 50 mls/hr Q20H IV 10/13/18 16:15 11/09/18 13:59 10/15/18 08:49 Tamsulosin HCl (Flomax) 0.4 mg BEDTIME ORAL 10/13/18 21:00 11/09/18 20:59 10/15/18 21:50 Vancomycin HCl (Vanco rx to dose) 1 ea DAILY PRN MISC . 10/14/18 09:00 11/09/18 13:29 Vancomycin HCl/ Dextrose 275 ml @ 183.333 mls/hr Q12HR@0500,1700 IVPB 10/16/18 17:00 10/21/18 16:59 Raul Feng MD Oct 16, 2018 16:30
--- NOTE | 2018-10-16 17:20 | Infectious Diseases Prog Note ---
Assessment/Plan Assessment/Plan Abx: IV vancomycin 10/10- Cefepime 10/10- Assessment: Sepsis Probable UTI -u/a wbc 30-40, nit neg, leuk +3; ucx >100K E.coli (R Cipro/Levo; otherwise) Gram positive bacteremia, -10/10 BCx 09/24 S. hominis, S. epi; 10/13 Bcx NTD -2d Echo: no vegetations seen Infected Sacral decubitus ulcer (necrotic tissue, foul-odor smelling)-chronic OM -10/13 SP Excision of sacral pressure ulcer with coccygectomy and ostectomy. Afebrile Pancytopenia Acute respiratory failure on VM- no obvious PNA on CXR -CXR: Minimal left midlung atelectasis. No acute process otherwise Satisfactory nasogastric intubation, also demonstrated on recent abdomen radiograph -sp cx MRSA, C. albicans (likely colonizers as no PNA on CXR) Acute encephalopathy -CT brain wo: Chronic and age-related changes as described. Postsurgical changes with underlying temporal, parietal, and frontal encephalomalacia. 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 No contrast enhancement to suggest recurrent tumor is evident currently. There is evidence of old peripheral hemorrhage, presumably related to the prior surgery. 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 Negative for acute intracranial bleed, mass effect, infarct, or contrast enhancing lesion. Chronic and age-related changes, as described CVA w/ R hemiparesis and aphasia HTN HLD BPH Dm2 s/p appendectomy s/p tonsillectomy CAD seizure disorder SNF resident Plan: -Continue IV Vancomycin #12/30- for wound infection -Continue Ceftriaxone #5 (abx d#12/30-) for UTI and for wound infection -10/12 SP Cefepime #3 -f/u cx -Monitor CBC/CMP, temperatures -f/u Bcx x2 (reordered) -wound care per surgical team -aspiration precautions -Sx f/u -f/u wound cx Thank you for this consultation. Will continue to follow along with you. Discussed with RN. Subjective Allergies: Coded Allergies: No Known Allergies (Unverified , 09/27/18) Subjective afebrile no leukocytosis Objective Vital Signs Last 24 Hour Vital Signs Date Time Temp Pulse Resp B/P (MAP) Pulse Ox O2 Delivery O2 Flow Rate FiO2 10/16/18 12:00 98.6 101 18 149/87 (107) 99 10/16/18 10:55 99 Venturi Mask 10.0 40 10/16/18 10:55 99 18 Venturi Mask 10.0 40 10/16/18 10:55 Venturi Mask 10.0 40 10/16/18 09:00 Venturi Mask 10.0 Venturi Mask 10.0 10/16/18 08:33 100 133/80 10/16/18 08:00 98.3 99 18 155/89 (111) 99 10/16/18 05:23 100 133/80 (97) 10/16/18 04:00 98.3 111 18 161/95 (117) 99 10/16/18 00:00 97.3 106 19 121/71 (88) 99 10/15/18 21:51 96 109/68 10/15/18 21:00 98.0 18 119/78 (92) 96 10/15/18 21:00 Venturi Mask 10.0 Venturi Mask 10.0 10/15/18 20:00 98.0 103 18 119/78 (92) 96 10/15/18 19:36 99 Venturi Mask 10.0 40 10/15/18 19:36 96 18 Venturi Mask 10.0 40 10/15/18 19:36 Venturi Mask 10.0 40 Height (Feet): 5 Height (Inches): 7.00 Weight (Pounds): 148 Objective GENERAL: The patient is well-developed and well-nourished male, in moderate respiratory distress. HEENT: Eyes, pupils are equal and responsive to light and accommodation. Extraocular movements are intact. NECK: Supple without lymphadenopathy. CHEST: Lungs are clear to auscultation bilaterally without wheezes or rales. CARDIOVASCULAR: Regular rhythm and rate. S1 and S2 normal without murmurs, rubs, or gallops. ABDOMEN: Soft, nontender, and nondistended. Positive bowel sounds. No evidence of hepatosplenomegaly.Currently, no rebound or guarding noted. EXTREMITIES: Negative for clubbing, cyanosis, or edema. NEUROLOGICAL: Cranial nerves II through XII are grossly intact without focal deficits Microbiology Date/Time Source Procedure Growth Status 10/13/18 17:35 Blood Blood Culture - Preliminary NO GROWTH AFTER 48 HOURS Resulted 10/13/18 17:20 Blood Blood Culture - Preliminary NO GROWTH AFTER 48 HOURS Resulted Laboratory Tests Test 10/16/18 05:35 10/16/18 14:50 White Blood Count 5.5 K/UL (4.8-10.8) Red Blood Count 3.48 M/UL (4.70-6.10) L Hemoglobin 11.1 G/DL (14.2-18.0) L Hematocrit 31.4 % (42.0-52.0) L Mean Corpuscular Volume 90 FL (80-99) Mean Corpuscular Hemoglobin 31.8 PG (27.0-31.0) H Mean Corpuscular Hemoglobin Concent 35.2 G/DL (32.0-36.0) Red Cell Distribution Width 12.9 % (11.6-14.8) Platelet Count 125 K/UL (150-450) L Mean Platelet Volume 6.0 FL (6.5-10.1) L Neutrophils (%) (Auto) % (45.0-75.0) Lymphocytes (%) (Auto) % (20.0-45.0) Monocytes (%) (Auto) % (1.0-10.0) Eosinophils (%) (Auto) % (0.0-3.0) Basophils (%) (Auto) % (0.0-2.0) Differential Total Cells Counted 100 Neutrophils % (Manual) 55 % (45-75) Lymphocytes % (Manual) 7 % (20-45) L Monocytes % (Manual) 5 % (1-10) Eosinophils % (Manual) 0 % (0-3) Basophils % (Manual) 0 % (0-2) Metamyelocytes % 1 % (0-0) H Myelocytes % 4 % (0-0) H Band Neutrophils 28 % (0-8) H Platelet Estimate Decreased L Platelet Morphology Normal Red Blood Cell Morphology Normal Sodium Level 133 MMOL/L (136-145) L Potassium Level 4.4 MMOL/L (3.5-5.1) Chloride Level 97 MMOL/L (98-107) L Carbon Dioxide Level 34 MMOL/L (21-32) H Anion Gap 2 mmol/L (5-15) L Blood Urea Nitrogen 12 mg/dL (7-18) Creatinine 0.6 MG/DL (0.55-1.30) Estimat Glomerular Filtration Rate > 60 mL/min (>60) Glucose Level 217 MG/DL (74-106) H Calcium Level 8.5 MG/DL (8.5-10.1) Vancomycin Level Trough 9.1 ug/mL (5.0-12.0) Current Medications Medications (Trade) Dose Ordered Sig/Chace Route PRN Reason Start Time Stop Time Status Last Admin Dose Admin Acetaminophen (Tylenol) 650 mg Q4H PRN ORAL T>100.5 10/13/18 16:30 11/09/18 16:29 Carvedilol (Coreg) 12.5 mg EVERY 12 HOURS NG 10/13/18 21:00 11/12/18 08:59 10/16/18 08:33 Ceftriaxone Sodium 2 gm/ Dextrose 55 ml @ 110 mls/hr Q24H IVPB 10/14/18 16:00 10/19/18 15:59 10/16/18 15:47 Dexamethasone (Decadron) 4 mg BID NG 10/13/18 18:00 11/12/18 08:59 10/16/18 08:33 Dextrose (Dextrose 50%) 25 ml Q30M PRN IV Hypoglycemia 10/14/18 13:30 11/13/18 13:29 Dextrose (Dextrose 50%) 50 ml Q30M PRN IV Hypoglycemia 10/14/18 13:30 11/13/18 13:29 Finasteride (Proscar) 5 mg DAILY@2100 ORAL 10/13/18 21:00 11/09/18 20:59 10/15/18 21:50 Heparin Sodium (Porcine) (Heparin 5000 units/ml) 5,000 units EVERY 12 HOURS SUBQ 10/13/18 21:00 11/09/18 20:59 Insulin Aspart (NovoLOG) EVERY 6 HOURS SUBQ 10/14/18 18:00 11/09/18 16:29 10/16/18 13:00 Insulin Detemir (Levemir) 10 units BID SUBQ 10/16/18 09:00 11/13/18 20:59 10/16/18 09:26 Lorazepam (Ativan 2mg/ml 1ml) 1 mg Q2H PRN IV For Anxiety 10/16/18 16:22 10/23/18 16:21 Ondansetron HCl (Zofran) 4 mg Q6H PRN IVP Nausea & Vomiting 10/13/18 16:30 11/09/18 16:29 Polyethylene Glycol (Miralax) 17 gm DAILYPRN PRN ORAL Constipation 10/13/18 16:30 11/12/18 16:29 Promethazine HCl/ Codeine (Phenergan with Codeine) 5 ml Q4H PRN ORAL For Cough 10/13/18 16:30 11/09/18 16:29 Sodium Chloride 1,000 ml @ 50 mls/hr Q20H IV 10/13/18 16:15 11/09/18 13:59 10/15/18 08:49 Tamsulosin HCl (Flomax) 0.4 mg BEDTIME ORAL 10/13/18 21:00 11/09/18 20:59 10/15/18 21:50 Vancomycin HCl (Vanco rx to dose) 1 ea DAILY PRN MISC . 10/14/18 09:00 11/09/18 13:29 Vancomycin HCl/ Dextrose 275 ml @ 183.333 mls/hr Q12HR@0500,1700 IVPB 10/16/18 17:00 10/21/18 16:59 Brandie Carlos M.D. Oct 16, 2018 17:20
[2018-10-16] MEDS: Vancomycin 1.25gm Premix IVPB SCH (17:49)
--- NOTE | 2018-10-16 18:16 | Internal Med Progress Note ---
Subjective Date of Service: Oct 16, 2018 Physician Name Jesus Kidd Attending Physician Camacho Braun MD Current Medications Medications (Trade) Dose Ordered Sig/Chace Route PRN Reason Start Time Stop Time Status Last Admin Dose Admin Acetaminophen (Tylenol) 650 mg Q4H PRN ORAL T>100.5 10/13/18 16:30 11/09/18 16:29 Carvedilol (Coreg) 12.5 mg EVERY 12 HOURS NG 10/13/18 21:00 11/12/18 08:59 10/16/18 08:33 Ceftriaxone Sodium 2 gm/ Dextrose 55 ml @ 110 mls/hr Q24H IVPB 10/14/18 16:00 10/19/18 15:59 10/16/18 15:47 Dexamethasone (Decadron) 4 mg BID NG 10/13/18 18:00 11/12/18 08:59 10/16/18 08:33 Dextrose (Dextrose 50%) 25 ml Q30M PRN IV Hypoglycemia 10/14/18 13:30 11/13/18 13:29 Dextrose (Dextrose 50%) 50 ml Q30M PRN IV Hypoglycemia 10/14/18 13:30 11/13/18 13:29 Finasteride (Proscar) 5 mg DAILY@2100 ORAL 10/13/18 21:00 11/09/18 20:59 10/15/18 21:50 Heparin Sodium (Porcine) (Heparin 5000 units/ml) 5,000 units EVERY 12 HOURS SUBQ 10/13/18 21:00 11/09/18 20:59 Insulin Aspart (NovoLOG) EVERY 6 HOURS SUBQ 10/14/18 18:00 11/09/18 16:29 10/16/18 13:00 Insulin Detemir (Levemir) 10 units BID SUBQ 10/16/18 09:00 11/13/18 20:59 10/16/18 09:26 Lorazepam (Ativan 2mg/ml 1ml) 1 mg Q2H PRN IV For Anxiety 10/16/18 16:22 10/23/18 16:21 Ondansetron HCl (Zofran) 4 mg Q6H PRN IVP Nausea & Vomiting 10/13/18 16:30 11/09/18 16:29 Polyethylene Glycol (Miralax) 17 gm DAILYPRN PRN ORAL Constipation 10/13/18 16:30 11/12/18 16:29 Promethazine HCl/ Codeine (Phenergan with Codeine) 5 ml Q4H PRN ORAL For Cough 10/13/18 16:30 11/09/18 16:29 Sodium Chloride 1,000 ml @ 50 mls/hr Q20H IV 10/13/18 16:15 11/09/18 13:59 10/15/18 08:49 Tamsulosin HCl (Flomax) 0.4 mg BEDTIME ORAL 10/13/18 21:00 11/09/18 20:59 10/15/18 21:50 Vancomycin HCl (Vanco rx to dose) 1 ea DAILY PRN MISC . 10/14/18 09:00 11/09/18 13:29 Vancomycin HCl/ Dextrose 275 ml @ 183.333 mls/hr Q12HR@0500,1700 IVPB 10/16/18 17:00 10/21/18 16:59 10/16/18 17:49 Allergies: Coded Allergies: No Known Allergies (Unverified , 09/27/18) ROS Limited/Unobtainable: Yes Subjective 68 YO M with history of brain cancer admitted with altered mental status. Now UTI and sepsis. Cover for Int Med-Dr Braun Objective Last Vital Signs Date Time Temp Pulse Resp B/P (MAP) Pulse Ox O2 Delivery O2 Flow Rate FiO2 10/16/18 16:00 98.0 70 18 125/69 (87) 97 10/16/18 10:55 Venturi Mask 10.0 40 Laboratory Tests Test 10/16/18 05:35 10/16/18 14:50 White Blood Count 5.5 K/UL (4.8-10.8) Red Blood Count 3.48 M/UL (4.70-6.10) L Hemoglobin 11.1 G/DL (14.2-18.0) L Hematocrit 31.4 % (42.0-52.0) L Mean Corpuscular Volume 90 FL (80-99) Mean Corpuscular Hemoglobin 31.8 PG (27.0-31.0) H Mean Corpuscular Hemoglobin Concent 35.2 G/DL (32.0-36.0) Red Cell Distribution Width 12.9 % (11.6-14.8) Platelet Count 125 K/UL (150-450) L Mean Platelet Volume 6.0 FL (6.5-10.1) L Neutrophils (%) (Auto) % (45.0-75.0) Lymphocytes (%) (Auto) % (20.0-45.0) Monocytes (%) (Auto) % (1.0-10.0) Eosinophils (%) (Auto) % (0.0-3.0) Basophils (%) (Auto) % (0.0-2.0) Differential Total Cells Counted 100 Neutrophils % (Manual) 55 % (45-75) Lymphocytes % (Manual) 7 % (20-45) L Monocytes % (Manual) 5 % (1-10) Eosinophils % (Manual) 0 % (0-3) Basophils % (Manual) 0 % (0-2) Metamyelocytes % 1 % (0-0) H Myelocytes % 4 % (0-0) H Band Neutrophils 28 % (0-8) H Platelet Estimate Decreased L Platelet Morphology Normal Red Blood Cell Morphology Normal Sodium Level 133 MMOL/L (136-145) L Potassium Level 4.4 MMOL/L (3.5-5.1) Chloride Level 97 MMOL/L (98-107) L Carbon Dioxide Level 34 MMOL/L (21-32) H Anion Gap 2 mmol/L (5-15) L Blood Urea Nitrogen 12 mg/dL (7-18) Creatinine 0.6 MG/DL (0.55-1.30) Estimat Glomerular Filtration Rate > 60 mL/min (>60) Glucose Level 217 MG/DL (74-106) H Calcium Level 8.5 MG/DL (8.5-10.1) Vancomycin Level Trough 9.1 ug/mL (5.0-12.0) Intake and Output 10/15/18 10/16/18 19:00 07:00 Intake Total 190 ml 850 ml Output Total 2800 ml Balance -2610 ml 850 ml Intake Free Water 60 ml 200 ml Tube Feeding 130 ml 650 ml Output Urine Total 2800 ml # Bowel Movements 1 Objective PHYSICAL EXAMINATION: GENERAL: The patient is well-developed and well-nourished male, in moderate respiratory distress. HEENT: Eyes, pupils are equal and responsive to light and accommodation. Extraocular movements are intact. NECK: Supple without lymphadenopathy. CHEST: venturi mask; Lungs with coarse breath sounds bilaterally CARDIOVASCULAR: Regular rhythm and rate. S1 and S2 normal without murmurs, rubs, or gallops. ABDOMEN: Soft, nontender, and nondistended. Positive bowel sounds. No evidence of hepatosplenomegaly, rebound or guarding noted. EXTREMITIES: Negative for clubbing, cyanosis, or edema. RECTAL/GENITAL: Not performed. NEUROLOGICAL: Cranial nerves II through XII are grossly intact without focal deficits Assessment/Plan Assessment/Plan ASSESSMENT: This is a 68-year-old male. 1. Altered mental status. 2. Urinary tract infection-E. Coli 3. Brain cancer. 4. Seizure disorder. 5. Diabetes type 2. 6. History of cerebrovascular accident. 7. Right hemiparesis. 8. Hypertension. 9. Coronary artery disease. 10. Expressive aphasia. 11. Hypercholesterolemia. 12. Sepsis-Staph Epidermidis and Staph Hominis 13 Sacral decubitus ulcer TREATMENT: 1. Altered mental status. This may be secondary to urinary tract infection. Urine culture is pending. The patient has been started empirically on vancomycin and cefepime. Await urine cultures. 2. Urinary tract infection-E.Coli. Abx=ceftriaxone per ID follow recommendations of Infectious Diseases. 3. Brain cancer. 4. Seizure disorder. Continue Depakote and Lamictal as above. 5. Diabetes type 2. A NovoLog sliding scale has been instituted. 6. History of cerebrovascular accident. 7. Right hemiparesis. 8. Expressive aphasia. 9. Hypertension. The patient is currently hypotensive. 10. History of coronary artery disease. 11. Sepsis=Staph species; continue vanco per ID 12. Hospice Jesus Carranza MD Oct 16, 2018 18:16
[2018-10-16] MEDS: Tamsulosin 0.4mg cap ORAL SCH (20:58)
[2018-10-17] VITALS: BP 134/87
[2018-10-17 04:00] VITALS: BP 125/72
[2018-10-17] MEDS: Vancomycin 1.25gm Premix IVPB SCH ×2 (05:54→17:23)
[2018-10-17] MEDS: NovoLOG Insulin Flexpen SUBQ SCH ×3 (06:03→17:34)
[2018-10-17 07:44] LABS: HEMATOCRIT 31.9 % (42.0-52.0); HEMOGLOBIN 11.3 G/DL (14.2-18.0); MEAN CORPUSCULAR VOLUME 89 FL (80-99); PLATELET COUNT 123 K/UL (150-450); RED BLOOD COUNT 3.59 M/UL (4.70-6.10); RED CELL DISTRIBUTION WIDTH 12.5 % (11.6-14.8); WHITE BLOOD COUNT 7.1 K/UL (4.8-10.8)
[2018-10-17 08:00] VITALS: BP 124/78
--- NOTE | 2018-10-17 08:03 | General Progress Note ---
Assessment/Plan Problem List: (1) Brain tumor ICD Codes: D49.6 - Neoplasm of unspecified behavior of brain SNOMED: 733277378 (2) Altered level of consciousness ICD Codes: R40.4 - Transient alteration of awareness SNOMED: 8693791 (3) Diabetes mellitus ICD Codes: E11.9 - Type 2 diabetes mellitus without complications SNOMED: 60462665 (4) Hypertension ICD Codes: I10 - Essential (primary) hypertension SNOMED: 90920958 Status: stable, not improved Assessment/Plan: DC Levemir - no longer on TF continue NISS every 6 hours Subjective ROS Limited/Unobtainable: Yes Allergies: Coded Allergies: No Known Allergies (Unverified , 09/27/18) Subjective events noted not on TF - he pulled his NGT Item Value Date Time Bedside Blood Glucose 139 mg/dl H 10/17/18 0603 Bedside Blood Glucose 150 mg/dl H 10/17/18 0000 Bedside Blood Glucose 214 mg/dl H 10/16/18 1820 Bedside Blood Glucose 285 mg/dl H 10/16/18 1300 Objective Last 24 Hour Vital Signs Date Time Temp Pulse Resp B/P (MAP) Pulse Ox O2 Delivery O2 Flow Rate FiO2 10/17/18 06:33 Venturi Mask 10.0 40 10/17/18 06:33 92 16 Venturi Mask 10.0 40 10/17/18 06:33 98 Venturi Mask 10.0 40 10/17/18 04:00 98.0 107 22 125/72 (89) 99 10/17/18 00:00 98.0 117 20 134/87 (103) 98 10/16/18 21:53 97 Venturi Mask 10.0 40 10/16/18 21:53 Venturi Mask 10.0 40 10/16/18 21:53 108 18 Venturi Mask 10.0 40 10/16/18 21:00 Venturi Mask 10.0 Venturi Mask 10.0 10/16/18 20:00 99.7 107 20 140/85 (103) 98 10/16/18 16:00 98.0 70 18 125/69 (87) 97 10/16/18 12:00 98.6 101 18 149/87 (107) 99 10/16/18 10:55 99 Venturi Mask 10.0 40 10/16/18 10:55 99 18 Venturi Mask 10.0 40 10/16/18 10:55 Venturi Mask 10.0 40 10/16/18 09:00 Venturi Mask 10.0 Venturi Mask 10.0 10/16/18 08:33 100 133/80 Intake and Output 10/16/18 10/17/18 19:00 07:00 Intake Total 670 ml 683.33 ml Output Total 1000 ml 350 ml Balance -330 ml 333.33 ml Intake Free Water 100 ml IV Total 50 ml 683.33 ml Tube Feeding 520 ml Output Urine Total 1000 ml 350 ml Laboratory Tests 10/16/18 14:50: Vancomycin Level Trough 9.1 10/17/18 05:30: White Blood Count 7.1, Red Blood Count 3.59L, Hemoglobin 11.3L, Hematocrit 31.9L , Mean Corpuscular Volume 89, Mean Corpuscular Hemoglobin 31.6H, Mean Corpuscular Hemoglobin Concent 35.6, Red Cell Distribution Width 12.5, Platelet Count 123L, Mean Platelet Volume 6.2L, Neutrophils (%) (Auto) , Lymphocytes (%) (Auto) , Monocytes (%) (Auto) , Eosinophils (%) (Auto) , Basophils (%) (Auto) , Neutrophils % (Manual) [Pending], Lymphocytes % (Manual) [Pending], Platelet Estimate [Pending], Platelet Morphology [Pending], Sodium Level [Pending], Potassium Level [Pending], Chloride Level [Pending], Carbon Dioxide Level [ Pending], Blood Urea Nitrogen [Pending], Creatinine [Pending], Estimat Glomerular Filtration Rate [Pending], Glucose Level [Pending], Calcium Level [ Pending] Height (Feet): 5 Height (Inches): 7.00 Weight (Pounds): 148 General Appearance: no apparent distress, lethargic Neck: normal alignment Cardiovascular: normal rate Respiratory/Chest: lungs clear Abdomen: normal bowel sounds Objective Current Medications Medications (Trade) Dose Ordered Sig/Chace Route PRN Reason Start Time Stop Time Status Last Admin Dose Admin Acetaminophen (Tylenol) 650 mg Q4H PRN ORAL T>100.5 10/13/18 16:30 11/09/18 16:29 Carvedilol (Coreg) 12.5 mg EVERY 12 HOURS NG 10/13/18 21:00 11/12/18 08:59 10/16/18 08:33 Ceftriaxone Sodium 2 gm/ Dextrose 55 ml @ 110 mls/hr Q24H IVPB 10/14/18 16:00 10/19/18 15:59 10/16/18 15:47 Dexamethasone (Decadron) 4 mg BID NG 10/13/18 18:00 11/12/18 08:59 10/16/18 08:33 Dextrose (Dextrose 50%) 25 ml Q30M PRN IV Hypoglycemia 10/14/18 13:30 11/13/18 13:29 Dextrose (Dextrose 50%) 50 ml Q30M PRN IV Hypoglycemia 10/14/18 13:30 11/13/18 13:29 Finasteride (Proscar) 5 mg DAILY@2100 ORAL 10/13/18 21:00 11/09/18 20:59 10/16/18 20:58 Heparin Sodium (Porcine) (Heparin 5000 units/ml) 5,000 units EVERY 12 HOURS SUBQ 10/13/18 21:00 11/09/18 20:59 Insulin Aspart (NovoLOG) EVERY 6 HOURS SUBQ 10/14/18 18:00 11/09/18 16:29 10/17/18 06:03 Insulin Detemir (Levemir) 10 units BID SUBQ 10/16/18 09:00 11/13/18 20:59 10/16/18 18:20 Lorazepam (Ativan 2mg/ml 1ml) 1 mg Q2H PRN IV For Anxiety 10/16/18 16:22 10/23/18 16:21 Ondansetron HCl (Zofran) 4 mg Q6H PRN IVP Nausea & Vomiting 10/13/18 16:30 11/09/18 16:29 Polyethylene Glycol (Miralax) 17 gm DAILYPRN PRN ORAL Constipation 10/13/18 16:30 11/12/18 16:29 Promethazine HCl/ Codeine (Phenergan with Codeine) 5 ml Q4H PRN ORAL For Cough 10/13/18 16:30 11/09/18 16:29 Sodium Chloride 1,000 ml @ 50 mls/hr Q20H IV 10/13/18 16:15 11/09/18 13:59 10/17/18 05:54 Tamsulosin HCl (Flomax) 0.4 mg BEDTIME ORAL 10/13/18 21:00 11/09/18 20:59 10/15/18 21:50 Vancomycin HCl (Vanco rx to dose) 1 ea DAILY PRN MISC . 10/14/18 09:00 11/09/18 13:29 Vancomycin HCl/ Dextrose 275 ml @ 183.333 mls/hr Q12HR@0500,1700 IVPB 10/16/18 17:00 10/21/18 16:59 10/17/18 05:54 Richard Lugo MD Oct 17, 2018 08:03
[2018-10-17 08:17] LABS: ANION GAP 2 mmol/L (5-15); BLOOD UREA NITROGEN 11 mg/dL (7-18); CALCIUM 8.5 MG/DL (8.5-10.1); CARBON DIOXIDE 34 MMOL/L (21-32); CHLORIDE 94 MMOL/L (98-107); CREATININE 0.5 MG/DL (0.55-1.30); SODIUM 130 MMOL/L (136-145)
[2018-10-17] MEDS ORDERED: NS 275ml ONE (08:54)
[2018-10-17] MEDS ORDERED: 1/2 NS 1000ml IV ONE (08:54)
[2018-10-17] MEDS: Carvedilol 12.5mg tab NG SCH ×2 (09:00→20:46)
--- NOTE | 2018-10-17 10:23 | Infectious Diseases Prog Note ---
Assessment/Plan Assessment/Plan Abx: IV vancomycin 10/10- Cefepime 10/10- Assessment: Sepsis Probable UTI -u/a wbc 30-40, nit neg, leuk +3; ucx >100K E.coli (R Cipro/Levo; otherwise) Gram positive bacteremia, -10/10 BCx 09/24 S. hominis, S. epi; 10/13 Bcx NTD -2d Echo: no vegetations seen Infected Sacral decubitus ulcer (necrotic tissue, foul-odor smelling)-chronic OM -10/13 SP Excision of sacral pressure ulcer with coccygectomy and ostectomy. Afebrile Pancytopenia Acute respiratory failure on VM- no obvious PNA on CXR -CXR: Minimal left midlung atelectasis. No acute process otherwise Satisfactory nasogastric intubation, also demonstrated on recent abdomen radiograph -sp cx MRSA, C. albicans (likely colonizers as no PNA on CXR) Acute encephalopathy -CT brain wo: Chronic and age-related changes as described. Postsurgical changes with underlying temporal, parietal, and frontal encephalomalacia. 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 No contrast enhancement to suggest recurrent tumor is evident currently. There is evidence of old peripheral hemorrhage, presumably related to the prior surgery. 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 Negative for acute intracranial bleed, mass effect, infarct, or contrast enhancing lesion. Chronic and age-related changes, as described CVA w/ R hemiparesis and aphasia HTN HLD BPH Dm2 s/p appendectomy s/p tonsillectomy CAD seizure disorder SNF resident Plan: -Continue IV Vancomycin #01/30- for wound infection -Continue Ceftriaxone #6 (abx d#01/30-) for UTI and for wound infection -10/12 SP Cefepime #3 -f/u cx -Monitor CBC/CMP, temperatures -f/u Bcx x2 (reordered) -wound care per surgical team -aspiration precautions -Sx f/u -f/u wound cx Thank you for this consultation. Will continue to follow along with you. Discussed with RN. Subjective Allergies: Coded Allergies: No Known Allergies (Unverified , 09/27/18) Subjective afebrile no leukocytosis Bcx NTD Objective Vital Signs Last 24 Hour Vital Signs Date Time Temp Pulse Resp B/P (MAP) Pulse Ox O2 Delivery O2 Flow Rate FiO2 10/17/18 09:00 98 124/78 10/17/18 08:45 Venturi Mask 10.0 Venturi Mask 10.0 10/17/18 08:00 98.2 98 20 124/78 (93) 98 10/17/18 06:33 Venturi Mask 10.0 40 10/17/18 06:33 92 16 Venturi Mask 10.0 40 10/17/18 06:33 98 Venturi Mask 10.0 40 10/17/18 04:00 98.0 107 22 125/72 (89) 99 10/17/18 00:00 98.0 117 20 134/87 (103) 98 10/16/18 21:53 97 Venturi Mask 10.0 40 10/16/18 21:53 Venturi Mask 10.0 40 10/16/18 21:53 108 18 Venturi Mask 10.0 40 10/16/18 21:00 Venturi Mask 10.0 Venturi Mask 10.0 10/16/18 20:00 99.7 107 20 140/85 (103) 98 10/16/18 16:00 98.0 70 18 125/69 (87) 97 10/16/18 12:00 98.6 101 18 149/87 (107) 99 10/16/18 10:55 99 Venturi Mask 10.0 40 10/16/18 10:55 99 18 Venturi Mask 10.0 40 10/16/18 10:55 Venturi Mask 10.0 40 Height (Feet): 5 Height (Inches): 7.00 Weight (Pounds): 148 Objective GENERAL: The patient is well-developed and well-nourished male, in moderate respiratory distress. HEENT: Eyes, pupils are equal and responsive to light and accommodation. Extraocular movements are intact. NECK: Supple without lymphadenopathy. CHEST: Lungs are clear to auscultation bilaterally without wheezes or rales. CARDIOVASCULAR: Regular rhythm and rate. S1 and S2 normal without murmurs, rubs, or gallops. ABDOMEN: Soft, nontender, and nondistended. Positive bowel sounds. No evidence of hepatosplenomegaly.Currently, no rebound or guarding noted. EXTREMITIES: Negative for clubbing, cyanosis, or edema. NEUROLOGICAL: Cranial nerves II through XII are grossly intact without focal deficits Laboratory Tests Test 10/16/18 14:50 10/17/18 05:30 Vancomycin Level Trough 9.1 ug/mL (5.0-12.0) White Blood Count 7.1 K/UL (4.8-10.8) Red Blood Count 3.59 M/UL (4.70-6.10) L Hemoglobin 11.3 G/DL (14.2-18.0) L Hematocrit 31.9 % (42.0-52.0) L Mean Corpuscular Volume 89 FL (80-99) Mean Corpuscular Hemoglobin 31.6 PG (27.0-31.0) H Mean Corpuscular Hemoglobin Concent 35.6 G/DL (32.0-36.0) Red Cell Distribution Width 12.5 % (11.6-14.8) Platelet Count 123 K/UL (150-450) L Mean Platelet Volume 6.2 FL (6.5-10.1) L Neutrophils (%) (Auto) % (45.0-75.0) Lymphocytes (%) (Auto) % (20.0-45.0) Monocytes (%) (Auto) % (1.0-10.0) Eosinophils (%) (Auto) % (0.0-3.0) Basophils (%) (Auto) % (0.0-2.0) Differential Total Cells Counted 100 Neutrophils % (Manual) 59 % (45-75) Lymphocytes % (Manual) 8 % (20-45) L Monocytes % (Manual) 6 % (1-10) Eosinophils % (Manual) 0 % (0-3) Basophils % (Manual) 0 % (0-2) Myelocytes % 3 % (0-0) H Band Neutrophils 24 % (0-8) H Platelet Estimate Decreased L Platelet Morphology Normal Red Blood Cell Morphology Normal Sodium Level 130 MMOL/L (136-145) L Potassium Level 4.0 MMOL/L (3.5-5.1) Chloride Level 94 MMOL/L (98-107) L Carbon Dioxide Level 34 MMOL/L (21-32) H Anion Gap 2 mmol/L (5-15) L Blood Urea Nitrogen 11 mg/dL (7-18) Creatinine 0.5 MG/DL (0.55-1.30) L Estimat Glomerular Filtration Rate > 60 mL/min (>60) Glucose Level 131 MG/DL (74-106) H Calcium Level 8.5 MG/DL (8.5-10.1) Current Medications Medications (Trade) Dose Ordered Sig/Chace Route PRN Reason Start Time Stop Time Status Last Admin Dose Admin Acetaminophen (Tylenol) 650 mg Q4H PRN ORAL T>100.5 10/13/18 16:30 11/09/18 16:29 Carvedilol (Coreg) 12.5 mg EVERY 12 HOURS NG 10/13/18 21:00 11/12/18 08:59 10/16/18 08:33 Ceftriaxone Sodium 2 gm/ Dextrose 55 ml @ 110 mls/hr Q24H IVPB 10/14/18 16:00 10/19/18 15:59 10/16/18 15:47 Dexamethasone (Decadron) 4 mg BID NG 10/13/18 18:00 11/12/18 08:59 10/16/18 08:33 Dextrose (Dextrose 50%) 25 ml Q30M PRN IV Hypoglycemia 10/14/18 13:30 11/13/18 13:29 Dextrose (Dextrose 50%) 50 ml Q30M PRN IV Hypoglycemia 10/14/18 13:30 11/13/18 13:29 Finasteride (Proscar) 5 mg DAILY@2100 ORAL 10/13/18 21:00 11/09/18 20:59 10/16/18 20:58 Heparin Sodium (Porcine) (Heparin 5000 units/ml) 5,000 units EVERY 12 HOURS SUBQ 10/13/18 21:00 11/09/18 20:59 Insulin Aspart (NovoLOG) EVERY 6 HOURS SUBQ 10/14/18 18:00 11/09/18 16:29 10/17/18 06:03 Lorazepam (Ativan 2mg/ml 1ml) 1 mg Q2H PRN IV For Anxiety 10/16/18 16:22 10/23/18 16:21 Ondansetron HCl (Zofran) 4 mg Q6H PRN IVP Nausea & Vomiting 10/13/18 16:30 11/09/18 16:29 Polyethylene Glycol (Miralax) 17 gm DAILYPRN PRN ORAL Constipation 10/13/18 16:30 11/12/18 16:29 Promethazine HCl/ Codeine (Phenergan with Codeine) 5 ml Q4H PRN ORAL For Cough 10/13/18 16:30 11/09/18 16:29 Sodium Chloride 1,000 ml @ 50 mls/hr Q20H IV 10/13/18 16:15 11/09/18 13:59 10/17/18 05:54 Tamsulosin HCl (Flomax) 0.4 mg BEDTIME ORAL 10/13/18 21:00 11/09/18 20:59 10/15/18 21:50 Vancomycin HCl (Vanco rx to dose) 1 ea DAILY PRN MISC . 10/14/18 09:00 11/09/18 13:29 Vancomycin HCl/ Dextrose 275 ml @ 183.333 mls/hr Q12HR@0500,1700 IVPB 10/16/18 17:00 10/21/18 16:59 10/17/18 05:54 Brandie Carlos M.D. Oct 17, 2018 10:23
[2018-10-17] MEDS: Heparin 5000 units/ml inj SUBQ SCH ×2 (10:33→20:52)
--- NOTE | 2018-10-17 11:24 | Pulmonology Progress Note ---
Assessment/Plan Problems: (1) acute toxic encephalopathy (2) Sepsis (3) Brain tumor (4) Sacral decubitus ulcer (5) Hypertension (6) Diabetes mellitus (7) History of CVA (cerebrovascular accident) Assessment/Plan more awake ON NG tube feeding MRI of brain done Encephalomalacia of the left anterior temporal lobe and adjacent frontal and parietal opercula; swallow study pending because pt is still too lethargic f/u cultures continue abx sliding scale monitor BP dvt prophylaxis talked to pts son, he doens't want his father to be on any seizure meds. Subjective ROS Limited/Unobtainable: No Constitutional: Reports: no symptoms HEENT: Repors: no symptoms Allergies: Coded Allergies: No Known Allergies (Unverified , 09/27/18) Objective Last 24 Hour Vital Signs Date Time Temp Pulse Resp B/P (MAP) Pulse Ox O2 Delivery O2 Flow Rate FiO2 10/17/18 09:00 98 124/78 10/17/18 08:45 Venturi Mask 10.0 Venturi Mask 10.0 10/17/18 08:00 98.2 98 20 124/78 (93) 98 10/17/18 06:33 Venturi Mask 10.0 40 10/17/18 06:33 92 16 Venturi Mask 10.0 40 10/17/18 06:33 98 Venturi Mask 10.0 40 10/17/18 04:00 98.0 107 22 125/72 (89) 99 10/17/18 00:00 98.0 117 20 134/87 (103) 98 10/16/18 21:53 97 Venturi Mask 10.0 40 10/16/18 21:53 Venturi Mask 10.0 40 10/16/18 21:53 108 18 Venturi Mask 10.0 40 10/16/18 21:00 Venturi Mask 10.0 Venturi Mask 10.0 10/16/18 20:00 99.7 107 20 140/85 (103) 98 10/16/18 16:00 98.0 70 18 125/69 (87) 97 10/16/18 12:00 98.6 101 18 149/87 (107) 99 Intake and Output 10/16/18 10/17/18 19:00 07:00 Intake Total 670 ml 683.33 ml Output Total 1000 ml 350 ml Balance -330 ml 333.33 ml Intake Free Water 100 ml IV Total 50 ml 683.33 ml Tube Feeding 520 ml Output Urine Total 1000 ml 350 ml Objective General Appearance: WD/WN HEENT: normocephalic, atraumatic Respiratory/Chest: chest wall non-tender, normal breath sounds Cardiovascular: normal peripheral pulses, normal rate Abdomen: normal bowel sounds, soft, non tender, no organomegaly, non distended Extremities: no cyanosis Skin: no rash, no lesions, no ulcers Laboratory Tests 10/16/18 14:50: Vancomycin Level Trough 9.1 10/17/18 05:30: White Blood Count 7.1, Red Blood Count 3.59L, Hemoglobin 11.3L, Hematocrit 31.9L , Mean Corpuscular Volume 89, Mean Corpuscular Hemoglobin 31.6H, Mean Corpuscular Hemoglobin Concent 35.6, Red Cell Distribution Width 12.5, Platelet Count 123L, Mean Platelet Volume 6.2L, Neutrophils (%) (Auto) , Lymphocytes (%) (Auto) , Monocytes (%) (Auto) , Eosinophils (%) (Auto) , Basophils (%) (Auto) , Differential Total Cells Counted 100, Neutrophils % (Manual) 59, Lymphocytes % ( Manual) 8L, Monocytes % (Manual) 6, Eosinophils % (Manual) 0, Basophils % ( Manual) 0, Myelocytes % 3H, Band Neutrophils 24H, Platelet Estimate DecreasedL, Platelet Morphology Normal, Red Blood Cell Morphology Normal, Sodium Level 130L , Potassium Level 4.0, Chloride Level 94L, Carbon Dioxide Level 34H, Anion Gap 2L, Blood Urea Nitrogen 11, Creatinine 0.5L, Estimat Glomerular Filtration Rate > 60, Glucose Level 131H, Calcium Level 8.5 Current Medications Medications (Trade) Dose Ordered Sig/Chace Route PRN Reason Start Time Stop Time Status Last Admin Dose Admin Acetaminophen (Tylenol) 650 mg Q4H PRN ORAL T>100.5 10/13/18 16:30 11/09/18 16:29 Carvedilol (Coreg) 12.5 mg EVERY 12 HOURS NG 10/13/18 21:00 11/12/18 08:59 10/16/18 08:33 Ceftriaxone Sodium 2 gm/ Dextrose 55 ml @ 110 mls/hr Q24H IVPB 10/14/18 16:00 10/19/18 15:59 10/16/18 15:47 Dexamethasone (Decadron) 4 mg BID NG 10/13/18 18:00 11/12/18 08:59 10/16/18 08:33 Dextrose (Dextrose 50%) 25 ml Q30M PRN IV Hypoglycemia 10/14/18 13:30 11/13/18 13:29 Dextrose (Dextrose 50%) 50 ml Q30M PRN IV Hypoglycemia 10/14/18 13:30 11/13/18 13:29 Finasteride (Proscar) 5 mg DAILY@2100 ORAL 10/13/18 21:00 11/09/18 20:59 10/16/18 20:58 Heparin Sodium (Porcine) (Heparin 5000 units/ml) 5,000 units EVERY 12 HOURS SUBQ 10/13/18 21:00 11/09/18 20:59 10/17/18 10:33 Insulin Aspart (NovoLOG) EVERY 6 HOURS SUBQ 10/14/18 18:00 11/09/18 16:29 10/17/18 06:03 Lorazepam (Ativan 2mg/ml 1ml) 1 mg Q2H PRN IV For Anxiety 10/16/18 16:22 10/23/18 16:21 Ondansetron HCl (Zofran) 4 mg Q6H PRN IVP Nausea & Vomiting 10/13/18 16:30 11/09/18 16:29 Polyethylene Glycol (Miralax) 17 gm DAILYPRN PRN ORAL Constipation 10/13/18 16:30 11/12/18 16:29 Promethazine HCl/ Codeine (Phenergan with Codeine) 5 ml Q4H PRN ORAL For Cough 10/13/18 16:30 11/09/18 16:29 Sodium Chloride 1,000 ml @ 50 mls/hr Q20H IV 10/13/18 16:15 11/09/18 13:59 10/17/18 05:54 Tamsulosin HCl (Flomax) 0.4 mg BEDTIME ORAL 10/13/18 21:00 11/09/18 20:59 10/15/18 21:50 Vancomycin HCl (Vanco rx to dose) 1 ea DAILY PRN MISC . 10/14/18 09:00 11/09/18 13:29 Vancomycin HCl/ Dextrose 275 ml @ 183.333 mls/hr Q12HR@0500,1700 IVPB 10/16/18 17:00 10/21/18 16:59 10/17/18 05:54 Raul Feng MD Oct 17, 2018 11:23
[2018-10-17 12:00] VITALS: BP 125/77
--- NOTE | 2018-10-17 15:57 | Internal Med Progress Note ---
Subjective Date of Service: Oct 17, 2018 Physician Name Jesus Kidd Attending Physician Camacho Braun MD Current Medications Medications (Trade) Dose Ordered Sig/Chace Route PRN Reason Start Time Stop Time Status Last Admin Dose Admin Acetaminophen (Tylenol) 650 mg Q4H PRN ORAL T>100.5 10/13/18 16:30 11/09/18 16:29 Carvedilol (Coreg) 12.5 mg EVERY 12 HOURS NG 10/13/18 21:00 11/12/18 08:59 10/16/18 08:33 Ceftriaxone Sodium 2 gm/ Dextrose 55 ml @ 110 mls/hr Q24H IVPB 10/14/18 16:00 10/19/18 15:59 10/16/18 15:47 Dexamethasone (Decadron) 4 mg BID NG 10/13/18 18:00 11/12/18 08:59 10/16/18 08:33 Dextrose (Dextrose 50%) 25 ml Q30M PRN IV Hypoglycemia 10/14/18 13:30 11/13/18 13:29 Dextrose (Dextrose 50%) 50 ml Q30M PRN IV Hypoglycemia 10/14/18 13:30 11/13/18 13:29 Finasteride (Proscar) 5 mg DAILY@2100 ORAL 10/13/18 21:00 11/09/18 20:59 10/16/18 20:58 Heparin Sodium (Porcine) (Heparin 5000 units/ml) 5,000 units EVERY 12 HOURS SUBQ 10/13/18 21:00 11/09/18 20:59 10/17/18 10:33 Insulin Aspart (NovoLOG) EVERY 6 HOURS SUBQ 10/14/18 18:00 11/09/18 16:29 10/17/18 06:03 Lorazepam (Ativan 2mg/ml 1ml) 1 mg Q2H PRN IV For Anxiety 10/16/18 16:22 10/23/18 16:21 Ondansetron HCl (Zofran) 4 mg Q6H PRN IVP Nausea & Vomiting 10/13/18 16:30 11/09/18 16:29 Polyethylene Glycol (Miralax) 17 gm DAILYPRN PRN ORAL Constipation 10/13/18 16:30 11/12/18 16:29 Promethazine HCl/ Codeine (Phenergan with Codeine) 5 ml Q4H PRN ORAL For Cough 10/13/18 16:30 11/09/18 16:29 Sodium Chloride 1,000 ml @ 50 mls/hr Q20H IV 10/13/18 16:15 11/09/18 13:59 10/17/18 05:54 Tamsulosin HCl (Flomax) 0.4 mg BEDTIME ORAL 10/13/18 21:00 11/09/18 20:59 10/15/18 21:50 Vancomycin HCl (Vanco rx to dose) 1 ea DAILY PRN MISC . 10/14/18 09:00 11/09/18 13:29 Vancomycin HCl/ Dextrose 275 ml @ 183.333 mls/hr Q12HR@0500,1700 IVPB 10/16/18 17:00 10/21/18 16:59 10/17/18 05:54 Allergies: Coded Allergies: No Known Allergies (Unverified , 09/27/18) ROS Limited/Unobtainable: Yes Subjective 68 YO M with history of brain cancer admitted with altered mental status. Now UTI and sepsis. On venturi mask. Cover for Int Med-Dr Braun Objective Last Vital Signs Date Time Temp Pulse Resp B/P (MAP) Pulse Ox O2 Delivery O2 Flow Rate FiO2 10/17/18 12:00 98.2 99 20 125/77 (93) 95 10/17/18 08:45 Venturi Mask 10.0 Venturi Mask 10.0 10/17/18 06:33 40 Laboratory Tests Test 10/17/18 05:30 White Blood Count 7.1 K/UL (4.8-10.8) Red Blood Count 3.59 M/UL (4.70-6.10) L Hemoglobin 11.3 G/DL (14.2-18.0) L Hematocrit 31.9 % (42.0-52.0) L Mean Corpuscular Volume 89 FL (80-99) Mean Corpuscular Hemoglobin 31.6 PG (27.0-31.0) H Mean Corpuscular Hemoglobin Concent 35.6 G/DL (32.0-36.0) Red Cell Distribution Width 12.5 % (11.6-14.8) Platelet Count 123 K/UL (150-450) L Mean Platelet Volume 6.2 FL (6.5-10.1) L Neutrophils (%) (Auto) % (45.0-75.0) Lymphocytes (%) (Auto) % (20.0-45.0) Monocytes (%) (Auto) % (1.0-10.0) Eosinophils (%) (Auto) % (0.0-3.0) Basophils (%) (Auto) % (0.0-2.0) Differential Total Cells Counted 100 Neutrophils % (Manual) 59 % (45-75) Lymphocytes % (Manual) 8 % (20-45) L Monocytes % (Manual) 6 % (1-10) Eosinophils % (Manual) 0 % (0-3) Basophils % (Manual) 0 % (0-2) Myelocytes % 3 % (0-0) H Band Neutrophils 24 % (0-8) H Platelet Estimate Decreased L Platelet Morphology Normal Red Blood Cell Morphology Normal Sodium Level 130 MMOL/L (136-145) L Potassium Level 4.0 MMOL/L (3.5-5.1) Chloride Level 94 MMOL/L (98-107) L Carbon Dioxide Level 34 MMOL/L (21-32) H Anion Gap 2 mmol/L (5-15) L Blood Urea Nitrogen 11 mg/dL (7-18) Creatinine 0.5 MG/DL (0.55-1.30) L Estimat Glomerular Filtration Rate > 60 mL/min (>60) Glucose Level 131 MG/DL (74-106) H Calcium Level 8.5 MG/DL (8.5-10.1) Intake and Output 10/16/18 10/17/18 19:00 07:00 Intake Total 670 ml 683.33 ml Output Total 1000 ml 350 ml Balance -330 ml 333.33 ml Intake Free Water 100 ml IV Total 50 ml 683.33 ml Tube Feeding 520 ml Output Urine Total 1000 ml 350 ml Objective PHYSICAL EXAMINATION: GENERAL: The patient is well-developed and well-nourished male, in moderate respiratory distress. HEENT: Eyes, pupils are equal and responsive to light and accommodation. Extraocular movements are intact. NECK: Supple without lymphadenopathy. CHEST: venturi mask; Lungs with coarse breath sounds bilaterally CARDIOVASCULAR: Regular rhythm and rate. S1 and S2 normal without murmurs, rubs, or gallops. ABDOMEN: Soft, nontender, and nondistended. Positive bowel sounds. No evidence of hepatosplenomegaly, rebound or guarding noted. EXTREMITIES: Negative for clubbing, cyanosis, or edema. RECTAL/GENITAL: Not performed. NEUROLOGICAL: Cranial nerves II through XII are grossly intact without focal deficits Assessment/Plan Assessment/Plan ASSESSMENT: This is a 68-year-old male. 1. Altered mental status. 2. Urinary tract infection-E. Coli 3. Brain cancer. 4. Seizure disorder. 5. Diabetes type 2. 6. History of cerebrovascular accident. 7. Right hemiparesis. 8. Hypertension. 9. Coronary artery disease. 10. Expressive aphasia. 11. Hypercholesterolemia. 12. Sepsis-Staph Epidermidis and Staph Hominis 13 Sacral decubitus ulcer TREATMENT: 1. Altered mental status. This may be secondary to urinary tract infection. Urine culture is pending. The patient has been started empirically on vancomycin and cefepime. Await urine cultures. 2. Urinary tract infection-E.Coli. Abx=ceftriaxone per ID follow recommendations of Infectious Diseases. 3. Brain cancer. 4. Seizure disorder. Continue Depakote and Lamictal as above. 5. Diabetes type 2. A NovoLog sliding scale has been instituted. 6. History of cerebrovascular accident. 7. Right hemiparesis. 8. Expressive aphasia. 9. Hypertension. The patient is currently hypotensive. 10. History of coronary artery disease. 11. Sepsis=Staph species; continue vanco per ID 12. Hospice Jesus Carranza MD Oct 17, 2018 15:57
[2018-10-17 16:00] VITALS: BP 109/73
[2018-10-17] MEDS: cefTRIAXone 2 GM in D5W 55 ML IVPB SCH (16:18)
[2018-10-17 20:00] VITALS: BP 124/81
[2018-10-17] MEDS: Tamsulosin 0.4mg cap ORAL SCH (20:46)
--- NOTE | 2018-10-17 23:05 | Neurology Progress Note ---
Interim History Interim History ROS Limited/Unobtainable: Yes Complaints: Seizure/ AMS Events: THIS VISIT WAS CONDUCTED ON OCTOBER 16, 2018. Interim History Request by family to remove all AED medications for patient. Objective Physical Exam Last Vital Signs Date Time Temp Pulse Resp B/P (MAP) Pulse Ox O2 Delivery O2 Flow Rate FiO2 10/17/18 21:00 Room Air Room Air 10/17/18 20:46 109 124/81 10/17/18 20:00 98.6 18 97 10/17/18 08:45 10.0 10.0 10/17/18 06:33 40 Laboratory Tests Test 10/17/18 05:30 White Blood Count 7.1 K/UL (4.8-10.8) Red Blood Count 3.59 M/UL (4.70-6.10) L Hemoglobin 11.3 G/DL (14.2-18.0) L Hematocrit 31.9 % (42.0-52.0) L Mean Corpuscular Volume 89 FL (80-99) Mean Corpuscular Hemoglobin 31.6 PG (27.0-31.0) H Mean Corpuscular Hemoglobin Concent 35.6 G/DL (32.0-36.0) Red Cell Distribution Width 12.5 % (11.6-14.8) Platelet Count 123 K/UL (150-450) L Mean Platelet Volume 6.2 FL (6.5-10.1) L Neutrophils (%) (Auto) % (45.0-75.0) Lymphocytes (%) (Auto) % (20.0-45.0) Monocytes (%) (Auto) % (1.0-10.0) Eosinophils (%) (Auto) % (0.0-3.0) Basophils (%) (Auto) % (0.0-2.0) Differential Total Cells Counted 100 Neutrophils % (Manual) 59 % (45-75) Lymphocytes % (Manual) 8 % (20-45) L Monocytes % (Manual) 6 % (1-10) Eosinophils % (Manual) 0 % (0-3) Basophils % (Manual) 0 % (0-2) Myelocytes % 3 % (0-0) H Band Neutrophils 24 % (0-8) H Platelet Estimate Decreased L Platelet Morphology Normal Red Blood Cell Morphology Normal Sodium Level 130 MMOL/L (136-145) L Potassium Level 4.0 MMOL/L (3.5-5.1) Chloride Level 94 MMOL/L (98-107) L Carbon Dioxide Level 34 MMOL/L (21-32) H Anion Gap 2 mmol/L (5-15) L Blood Urea Nitrogen 11 mg/dL (7-18) Creatinine 0.5 MG/DL (0.55-1.30) L Estimat Glomerular Filtration Rate > 60 mL/min (>60) Glucose Level 131 MG/DL (74-106) H Calcium Level 8.5 MG/DL (8.5-10.1) General: well developed, well nourished Head: normocophalic Neck: no rigidity EENT: benign Neurologic Exam Mental Status: other - REmains obtunded with intermittent eye opening and preferential gaze to the left - w/d x 4 PERLL - visual joe unable to be obtained but partial hemianopia also suspected on the right side. Speech: other Cranial Nerve II: other Cranial Nerves III, IV, : PERRLA, EOMI, pupils Cranial Nerve VII: other - Some baseline facial asymmetry - due to previous infarct Cranial Nerve IX: normal palate elevation Cranial Nerve XI: SCM symmetric Motor System: normal muscle tone Sensory: normal pinprick, normal light touch, other - Some sensory loss on right side but not completely - requiring increased intensity of stimuli to be felt though. Deep Tendon Reflexes: 2+ bicep (L), 2+ bicep (R), 2+ tricep (L), 2+ tricep (R) , 2+ brachioradialis (L), 2+ brachioradialis (R), 2+ knee (L), 2+ knee (R), 2+ ankle (L), 2+ ankle (R) Stance: normal Gait: stable, normal regular, heel + toe gait Objective Awake and alert now but not following commands and non verbal- only making sounds Localizing on left side/ withdrawal only on right side . Impression/Recommendations Problems: (1) Acute encephalopathy Assessment & Plan: Q4 Hour Neuro OBs (2) acute toxic encephalopathy Assessment & Plan: Frequent stimulation of patient Q 4 hour neuro obs (3) Altered level of consciousness Assessment & Plan: PT/ OT Eval Na 135-145 OOB to chair as soon as able. Abx as per ID team Maintain normothermia with Tylenol / coolling blanket as need. MRI Brain w/wo contrast EEG as outpatient (4) Sepsis Assessment & Plan: Treat with IV abx as per ID (5) Brain tumor Assessment & Plan: MRI Brain w/ Contrast for investigation of recurrent primary tumor . CT taken in September did not demonstrate mass effect but also not the most sensitive test for detecting intraparenchymal masses. MRI 10/12/18 Encephalomalacia of the left anterior temporal lobe and adjacent frontal and parietal opercula; reportedly, this was for resection of an oligodendroglioma. No contrast enhancement to suggest recurrent tumor is evident currently. There is evidence of old peripheral hemorrhage, presumably related to the prior surgery. 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 MRI Brain w/wo for investigation of new CVA vs Mass (7) Diabetes mellitus Assessment & Plan: Normoglycemia with ISS (8) Hypertension Assessment & Plan: Maintain SBP<140 with antiHTN meds. 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 No contrast enhancement to suggest recurrent tumor is evident currently. There is evidence of old peripheral hemorrhage, presumably related to the prior surgery. 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 Now on 500mg BID - Will monitor for seizure activity - Renewed Q4 hour neuro obs DR. JIMENEZ will discuss MRI and managment with patient's neuro-oncologist Dr. Naldo Wiseman at [facility] Vidya Sun N.P. Oct 17, 2018 23:05
[2018-10-18] VITALS: BP 128/80
[2018-10-18] MEDS: NovoLOG Insulin Flexpen SUBQ SCH ×4 (00:55→17:52)
[2018-10-18 04:00] VITALS: BP 121/80
[2018-10-18 04:27] LABS: HEMATOCRIT 29.2 % (42.0-52.0); HEMOGLOBIN 10.6 G/DL (14.2-18.0); MEAN CORPUSCULAR VOLUME 87 FL (80-99); PLATELET COUNT 124 K/UL (150-450); RED BLOOD COUNT 3.34 M/UL (4.70-6.10); RED CELL DISTRIBUTION WIDTH 12.2 % (11.6-14.8); WHITE BLOOD COUNT 6.5 K/UL (4.8-10.8)
[2018-10-18 04:40] LABS: ANION GAP 4 mmol/L (5-15); BLOOD UREA NITROGEN 12 mg/dL (7-18); CALCIUM 8.1 MG/DL (8.5-10.1); CARBON DIOXIDE 32 MMOL/L (21-32); CHLORIDE 93 MMOL/L (98-107); CREATININE 0.5 MG/DL (0.55-1.30); SODIUM 129 MMOL/L (136-145)
[2018-10-18] MEDS: Vancomycin 1.25gm Premix IVPB SCH (05:00)
[2018-10-18] MEDS: Vancomycin 750mg/NS 275ml IVPB SCH ×6 (06:23→21:10)
--- NOTE | 2018-10-18 07:41 | General Progress Note ---
Assessment/Plan Problem List: (1) Brain tumor ICD Codes: D49.6 - Neoplasm of unspecified behavior of brain SNOMED: 968215668 (2) Altered level of consciousness ICD Codes: R40.4 - Transient alteration of awareness SNOMED: 7039382 (3) Diabetes mellitus ICD Codes: E11.9 - Type 2 diabetes mellitus without complications SNOMED: 45046277 (4) Hypertension ICD Codes: I10 - Essential (primary) hypertension SNOMED: 02108822 Status: stable, not improved Assessment/Plan: no need for basal insulin continue NISS every 6 hours Subjective ROS Limited/Unobtainable: Yes Allergies: Coded Allergies: No Known Allergies (Unverified , 09/27/18) Subjective events noted continues to be off TF Item Value Date Time Bedside Blood Glucose 148 mg/dl H 10/18/18 0624 Bedside Blood Glucose 158 mg/dl H 10/18/18 0055 Bedside Blood Glucose 176 mg/dl H 10/17/18 1732 Bedside Blood Glucose 149 mg/dl H 10/17/18 1200 Objective Last 24 Hour Vital Signs Date Time Temp Pulse Resp B/P (MAP) Pulse Ox O2 Delivery O2 Flow Rate FiO2 10/18/18 07:12 Nasal Cannula 2.0 28 10/18/18 07:12 105 18 Nasal Cannula 2.0 28 10/18/18 07:12 97 Nasal Cannula 2.0 28 10/18/18 04:00 97.7 105 18 121/80 (94) 97 10/18/18 00:00 97.9 109 20 128/80 (96) 97 10/17/18 21:00 Room Air Room Air 10/17/18 20:46 109 124/81 10/17/18 20:00 98.6 109 18 124/81 (95) 97 10/17/18 16:00 97.7 109 20 109/73 (85) 96 10/17/18 12:00 98.2 99 20 125/77 (93) 95 10/17/18 09:00 98 124/78 10/17/18 08:45 Venturi Mask 10.0 Venturi Mask 10.0 10/17/18 08:00 98.2 98 20 124/78 (93) 98 Intake and Output 10/17/18 10/18/18 19:00 07:00 Intake Total 196.67 ml 500 ml Output Total 600 ml 650 ml Balance -403.33 ml -150 ml IV Total 196.67 ml 500 ml Output Urine Total 600 ml 650 ml Laboratory Tests 10/18/18 04:15: White Blood Count 6.5, Red Blood Count 3.34L, Hemoglobin 10.6L, Hematocrit 29.2L , Mean Corpuscular Volume 87, Mean Corpuscular Hemoglobin 31.8H, Mean Corpuscular Hemoglobin Concent 36.3H, Red Cell Distribution Width 12.2, Platelet Count 124L, Mean Platelet Volume 5.4L, Neutrophils (%) (Auto) , Lymphocytes (%) (Auto) , Monocytes (%) (Auto) , Eosinophils (%) (Auto) , Basophils (%) (Auto) , Differential Total Cells Counted 100, Neutrophils % ( Manual) 91H, Lymphocytes % (Manual) 5L, Monocytes % (Manual) 3, Eosinophils % ( Manual) 1, Basophils % (Manual) 0, Band Neutrophils 0, Platelet Estimate DecreasedL, Platelet Morphology Normal, Hypochromasia 1+, Anisocytosis 1+, Sodium Level 129L, Potassium Level 4.0, Chloride Level 93L, Carbon Dioxide Level 32, Anion Gap 4L, Blood Urea Nitrogen 12, Creatinine 0.5L, Estimat Glomerular Filtration Rate > 60, Glucose Level 145H, Calcium Level 8.1L, Vancomycin Level Trough 13.4H Height (Feet): 5 Height (Inches): 7.00 Weight (Pounds): 148 General Appearance: lethargic Neck: normal alignment Cardiovascular: normal rate Respiratory/Chest: lungs clear Abdomen: normal bowel sounds Edema: no edema noted Arm (L), no edema noted Arm (R), no edema noted Leg (L), no edema noted Leg (R), no edema noted Pedal (L), no edema noted Pedal (R), no edema noted Generalized Objective Current Medications Medications (Trade) Dose Ordered Sig/Chace Route PRN Reason Start Time Stop Time Status Last Admin Dose Admin Acetaminophen (Tylenol) 650 mg Q4H PRN ORAL T>100.5 10/13/18 16:30 11/09/18 16:29 Carvedilol (Coreg) 12.5 mg EVERY 12 HOURS NG 10/13/18 21:00 11/12/18 08:59 10/16/18 08:33 Ceftriaxone Sodium 2 gm/ Dextrose 55 ml @ 110 mls/hr Q24H IVPB 10/14/18 16:00 10/19/18 15:59 10/17/18 16:18 Dexamethasone (Decadron) 4 mg BID NG 10/13/18 18:00 11/12/18 08:59 10/16/18 08:33 Dextrose (Dextrose 50%) 25 ml Q30M PRN IV Hypoglycemia 10/14/18 13:30 11/13/18 13:29 Dextrose (Dextrose 50%) 50 ml Q30M PRN IV Hypoglycemia 10/14/18 13:30 11/13/18 13:29 Finasteride (Proscar) 5 mg DAILY@2100 ORAL 10/13/18 21:00 11/09/18 20:59 10/16/18 20:58 Heparin Sodium (Porcine) (Heparin 5000 units/ml) 5,000 units EVERY 12 HOURS SUBQ 10/13/18 21:00 11/09/18 20:59 10/17/18 20:52 Insulin Aspart (NovoLOG) EVERY 6 HOURS SUBQ 10/14/18 18:00 11/09/18 16:29 10/18/18 06:24 Lorazepam (Ativan 2mg/ml 1ml) 1 mg Q2H PRN IV For Anxiety 10/16/18 16:22 10/23/18 16:21 Ondansetron HCl (Zofran) 4 mg Q6H PRN IVP Nausea & Vomiting 10/13/18 16:30 11/09/18 16:29 Polyethylene Glycol (Miralax) 17 gm DAILYPRN PRN ORAL Constipation 10/13/18 16:30 11/12/18 16:29 Promethazine HCl/ Codeine (Phenergan with Codeine) 5 ml Q4H PRN ORAL For Cough 10/13/18 16:30 11/09/18 16:29 Sodium Chloride 1,000 ml @ 50 mls/hr Q20H IV 10/17/18 16:00 11/16/18 15:59 10/17/18 16:18 Tamsulosin HCl (Flomax) 0.4 mg BEDTIME ORAL 10/13/18 21:00 11/09/18 20:59 10/15/18 21:50 Vancomycin HCl (Vanco rx to dose) 1 ea DAILY PRN MISC . 10/14/18 09:00 11/09/18 13:29 Vancomycin HCl 750 mg/Sodium Chloride 275 ml @ 183.333 mls/hr Q8H IVPB 10/18/18 06:00 10/23/18 05:59 10/18/18 06:23 Richard Lugo MD Oct 18, 2018 07:41
[2018-10-18 08:00] VITALS: BP 136/85
[2018-10-18] MEDS: Carvedilol 12.5mg tab NG SCH ×2 (08:05→21:00)
[2018-10-18] MEDS: Heparin 5000 units/ml inj SUBQ SCH ×2 (08:28→21:13)
[2018-10-18 12:00] VITALS: BP 147/96
--- NOTE | 2018-10-18 14:38 | Pulmonology Progress Note ---
Assessment/Plan Problems: (1) acute toxic encephalopathy (2) Sepsis (3) Brain tumor (4) Sacral decubitus ulcer (5) Hypertension (6) Diabetes mellitus (7) History of CVA (cerebrovascular accident) Assessment/Plan more awake ON NG tube feeding MRI of brain done Encephalomalacia of the left anterior temporal lobe and adjacent frontal and parietal opercula; swallow study pending because pt is still too lethargic f/u cultures continue abx sliding scale monitor BP dvt prophylaxis talked to pts son, he doens't want his father to be on any seizure meds. Subjective ROS Limited/Unobtainable: No Constitutional: Reports: no symptoms HEENT: Repors: no symptoms Allergies: Coded Allergies: No Known Allergies (Unverified , 09/27/18) Objective Last 24 Hour Vital Signs Date Time Temp Pulse Resp B/P (MAP) Pulse Ox O2 Delivery O2 Flow Rate FiO2 10/18/18 08:00 Venturi Mask 10.0 Venturi Mask 10.0 10/18/18 08:00 97.2 107 20 136/85 (102) 98 10/18/18 07:12 Nasal Cannula 2.0 28 10/18/18 07:12 105 18 Nasal Cannula 2.0 28 10/18/18 07:12 97 Nasal Cannula 2.0 28 10/18/18 04:00 97.7 105 18 121/80 (94) 97 10/18/18 00:00 97.9 109 20 128/80 (96) 97 10/17/18 21:00 Room Air Room Air 10/17/18 20:46 109 124/81 10/17/18 20:00 98.6 109 18 124/81 (95) 97 10/17/18 16:00 97.7 109 20 109/73 (85) 96 Intake and Output 10/17/18 10/18/18 19:00 07:00 Intake Total 196.67 ml 500 ml Output Total 600 ml 650 ml Balance -403.33 ml -150 ml IV Total 196.67 ml 500 ml Output Urine Total 600 ml 650 ml Objective General Appearance: WD/WN HEENT: normocephalic, atraumatic Respiratory/Chest: chest wall non-tender, normal breath sounds Cardiovascular: normal peripheral pulses, normal rate Abdomen: normal bowel sounds, soft, non tender, no organomegaly, non distended Extremities: no cyanosis Skin: no rash, no lesions, no ulcers Laboratory Tests 10/18/18 04:15: White Blood Count 6.5, Red Blood Count 3.34L, Hemoglobin 10.6L, Hematocrit 29.2L , Mean Corpuscular Volume 87, Mean Corpuscular Hemoglobin 31.8H, Mean Corpuscular Hemoglobin Concent 36.3H, Red Cell Distribution Width 12.2, Platelet Count 124L, Mean Platelet Volume 5.4L, Neutrophils (%) (Auto) , Lymphocytes (%) (Auto) , Monocytes (%) (Auto) , Eosinophils (%) (Auto) , Basophils (%) (Auto) , Differential Total Cells Counted 100, Neutrophils % ( Manual) 91H, Lymphocytes % (Manual) 5L, Monocytes % (Manual) 3, Eosinophils % ( Manual) 1, Basophils % (Manual) 0, Band Neutrophils 0, Platelet Estimate DecreasedL, Platelet Morphology Normal, Hypochromasia 1+, Anisocytosis 1+, Sodium Level 129L, Potassium Level 4.0, Chloride Level 93L, Carbon Dioxide Level 32, Anion Gap 4L, Blood Urea Nitrogen 12, Creatinine 0.5L, Estimat Glomerular Filtration Rate > 60, Glucose Level 145H, Calcium Level 8.1L, Vancomycin Level Trough 13.4H Current Medications Medications (Trade) Dose Ordered Sig/Chace Route PRN Reason Start Time Stop Time Status Last Admin Dose Admin Acetaminophen (Tylenol) 650 mg Q4H PRN ORAL T>100.5 10/13/18 16:30 11/09/18 16:29 Carvedilol (Coreg) 12.5 mg EVERY 12 HOURS NG 10/13/18 21:00 11/12/18 08:59 10/16/18 08:33 Ceftriaxone Sodium 2 gm/ Dextrose 55 ml @ 110 mls/hr Q24H IVPB 10/14/18 16:00 10/19/18 23:59 10/17/18 16:18 Dexamethasone (Decadron) 4 mg BID NG 10/13/18 18:00 11/12/18 08:59 10/16/18 08:33 Dextrose (Dextrose 50%) 25 ml Q30M PRN IV Hypoglycemia 10/14/18 13:30 11/13/18 13:29 Dextrose (Dextrose 50%) 50 ml Q30M PRN IV Hypoglycemia 10/14/18 13:30 11/13/18 13:29 Finasteride (Proscar) 5 mg DAILY@2100 ORAL 10/13/18 21:00 11/09/18 20:59 10/16/18 20:58 Heparin Sodium (Porcine) (Heparin 5000 units/ml) 5,000 units EVERY 12 HOURS SUBQ 10/13/18 21:00 11/09/18 20:59 10/18/18 08:28 Insulin Aspart (NovoLOG) EVERY 6 HOURS SUBQ 10/14/18 18:00 11/09/18 16:29 10/18/18 06:24 Lorazepam (Ativan 2mg/ml 1ml) 1 mg Q2H PRN IV For Anxiety 10/16/18 16:22 10/23/18 16:21 Ondansetron HCl (Zofran) 4 mg Q6H PRN IVP Nausea & Vomiting 10/13/18 16:30 11/09/18 16:29 Polyethylene Glycol (Miralax) 17 gm DAILYPRN PRN ORAL Constipation 10/13/18 16:30 11/12/18 16:29 Promethazine HCl/ Codeine (Phenergan with Codeine) 5 ml Q4H PRN ORAL For Cough 10/13/18 16:30 11/09/18 16:29 Sodium Chloride 1,000 ml @ 50 mls/hr Q20H IV 10/17/18 16:00 11/16/18 15:59 10/18/18 12:58 Tamsulosin HCl (Flomax) 0.4 mg BEDTIME ORAL 10/13/18 21:00 11/09/18 20:59 10/15/18 21:50 Vancomycin HCl (Vanco rx to dose) 1 ea DAILY PRN MISC . 10/14/18 09:00 11/09/18 13:29 Vancomycin HCl 750 mg/Sodium Chloride 275 ml @ 183.333 mls/hr Q8H IVPB 10/18/18 06:00 10/23/18 05:59 10/18/18 14:16 Raul Feng MD Oct 18, 2018 14:38
[2018-10-18 16:00] VITALS: BP 140/76
[2018-10-18] MEDS: cefTRIAXone 2 GM in D5W 55 ML IVPB SCH (16:11)
--- NOTE | 2018-10-18 16:14 | Internal Med Progress Note ---
Subjective Date of Service: Oct 18, 2018 Physician Name Jesus Kidd Attending Physician Camacho Braun MD Current Medications Medications (Trade) Dose Ordered Sig/Chace Route PRN Reason Start Time Stop Time Status Last Admin Dose Admin Acetaminophen (Tylenol) 650 mg Q4H PRN ORAL T>100.5 10/13/18 16:30 11/09/18 16:29 Carvedilol (Coreg) 12.5 mg EVERY 12 HOURS NG 10/13/18 21:00 11/12/18 08:59 10/16/18 08:33 Ceftriaxone Sodium 2 gm/ Dextrose 55 ml @ 110 mls/hr Q24H IVPB 10/14/18 16:00 10/19/18 23:59 10/18/18 16:11 Dexamethasone (Decadron) 4 mg BID NG 10/13/18 18:00 11/12/18 08:59 10/16/18 08:33 Dextrose (Dextrose 50%) 25 ml Q30M PRN IV Hypoglycemia 10/14/18 13:30 11/13/18 13:29 Dextrose (Dextrose 50%) 50 ml Q30M PRN IV Hypoglycemia 10/14/18 13:30 11/13/18 13:29 Finasteride (Proscar) 5 mg DAILY@2100 ORAL 10/13/18 21:00 11/09/18 20:59 10/16/18 20:58 Heparin Sodium (Porcine) (Heparin 5000 units/ml) 5,000 units EVERY 12 HOURS SUBQ 10/13/18 21:00 11/09/18 20:59 10/18/18 08:28 Insulin Aspart (NovoLOG) EVERY 6 HOURS SUBQ 10/14/18 18:00 11/09/18 16:29 10/18/18 06:24 Lorazepam (Ativan 2mg/ml 1ml) 1 mg Q2H PRN IV For Anxiety 10/16/18 16:22 10/23/18 16:21 Ondansetron HCl (Zofran) 4 mg Q6H PRN IVP Nausea & Vomiting 10/13/18 16:30 11/09/18 16:29 Polyethylene Glycol (Miralax) 17 gm DAILYPRN PRN ORAL Constipation 10/13/18 16:30 11/12/18 16:29 Promethazine HCl/ Codeine (Phenergan with Codeine) 5 ml Q4H PRN ORAL For Cough 10/13/18 16:30 11/09/18 16:29 Sodium Chloride 1,000 ml @ 50 mls/hr Q20H IV 10/17/18 16:00 11/16/18 15:59 10/18/18 12:58 Tamsulosin HCl (Flomax) 0.4 mg BEDTIME ORAL 10/13/18 21:00 11/09/18 20:59 10/15/18 21:50 Vancomycin HCl (Vanco rx to dose) 1 ea DAILY PRN MISC . 10/14/18 09:00 11/09/18 13:29 Vancomycin HCl 750 mg/Sodium Chloride 275 ml @ 183.333 mls/hr Q8H IVPB 10/18/18 06:00 10/23/18 05:59 10/18/18 14:16 Allergies: Coded Allergies: No Known Allergies (Unverified , 09/27/18) ROS Limited/Unobtainable: Yes Subjective 68 YO M with history of brain cancer admitted with altered mental status. Now UTI and sepsis. On venturi mask. Cover for Int Med-Dr Braun Objective Last Vital Signs Date Time Temp Pulse Resp B/P (MAP) Pulse Ox O2 Delivery O2 Flow Rate FiO2 10/18/18 12:00 98.1 114 20 147/96 (113) 100 10/18/18 08:00 Venturi Mask 10.0 Venturi Mask 10.0 10/18/18 07:12 28 Laboratory Tests Test 10/18/18 04:15 White Blood Count 6.5 K/UL (4.8-10.8) Red Blood Count 3.34 M/UL (4.70-6.10) L Hemoglobin 10.6 G/DL (14.2-18.0) L Hematocrit 29.2 % (42.0-52.0) L Mean Corpuscular Volume 87 FL (80-99) Mean Corpuscular Hemoglobin 31.8 PG (27.0-31.0) H Mean Corpuscular Hemoglobin Concent 36.3 G/DL (32.0-36.0) H Red Cell Distribution Width 12.2 % (11.6-14.8) Platelet Count 124 K/UL (150-450) L Mean Platelet Volume 5.4 FL (6.5-10.1) L Neutrophils (%) (Auto) % (45.0-75.0) Lymphocytes (%) (Auto) % (20.0-45.0) Monocytes (%) (Auto) % (1.0-10.0) Eosinophils (%) (Auto) % (0.0-3.0) Basophils (%) (Auto) % (0.0-2.0) Differential Total Cells Counted 100 Neutrophils % (Manual) 91 % (45-75) H Lymphocytes % (Manual) 5 % (20-45) L Monocytes % (Manual) 3 % (1-10) Eosinophils % (Manual) 1 % (0-3) Basophils % (Manual) 0 % (0-2) Band Neutrophils 0 % (0-8) Platelet Estimate Decreased L Platelet Morphology Normal Hypochromasia 1+ Anisocytosis 1+ Sodium Level 129 MMOL/L (136-145) L Potassium Level 4.0 MMOL/L (3.5-5.1) Chloride Level 93 MMOL/L (98-107) L Carbon Dioxide Level 32 MMOL/L (21-32) Anion Gap 4 mmol/L (5-15) L Blood Urea Nitrogen 12 mg/dL (7-18) Creatinine 0.5 MG/DL (0.55-1.30) L Estimat Glomerular Filtration Rate > 60 mL/min (>60) Glucose Level 145 MG/DL (74-106) H Calcium Level 8.1 MG/DL (8.5-10.1) L Vancomycin Level Trough 13.4 ug/mL (5.0-12.0) H Intake and Output 10/17/18 10/18/18 19:00 07:00 Intake Total 196.67 ml 500 ml Output Total 600 ml 650 ml Balance -403.33 ml -150 ml IV Total 196.67 ml 500 ml Output Urine Total 600 ml 650 ml Objective PHYSICAL EXAMINATION: GENERAL: The patient is well-developed and well-nourished male, in moderate respiratory distress. HEENT: Eyes, pupils are equal and responsive to light and accommodation. Extraocular movements are intact. NECK: Supple without lymphadenopathy. CHEST: venturi mask; Lungs with coarse breath sounds bilaterally CARDIOVASCULAR: Regular rhythm and rate. S1 and S2 normal without murmurs, rubs, or gallops. ABDOMEN: Soft, nontender, and nondistended. Positive bowel sounds. No evidence of hepatosplenomegaly, rebound or guarding noted. EXTREMITIES: Negative for clubbing, cyanosis, or edema. RECTAL/GENITAL: Not performed. NEUROLOGICAL: Cranial nerves II through XII are grossly intact without focal deficits Assessment/Plan Assessment/Plan ASSESSMENT: This is a 68-year-old male. 1. Altered mental status. 2. Urinary tract infection-E. Coli 3. Brain cancer. 4. Seizure disorder. 5. Diabetes type 2. 6. History of cerebrovascular accident. 7. Right hemiparesis. 8. Hypertension. 9. Coronary artery disease. 10. Expressive aphasia. 11. Hypercholesterolemia. 12. Sepsis-Staph Epidermidis and Staph Hominis 13 Sacral decubitus ulcer TREATMENT: 1. Altered mental status. This may be secondary to urinary tract infection. Urine culture is pending. The patient has been started empirically on vancomycin and cefepime. Await urine cultures. 2. Urinary tract infection-E.Coli. Abx=ceftriaxone per ID follow recommendations of Infectious Diseases. 3. Brain cancer. 4. Seizure disorder. D/C Depakote and Lamictal per family request 5. Diabetes type 2. A NovoLog sliding scale has been instituted. 6. History of cerebrovascular accident. 7. Right hemiparesis. 8. Expressive aphasia. 9. Hypertension. The patient is currently hypotensive. 10. History of coronary artery disease. 11. Sepsis=Staph species; continue vanco per ID 12. Hospice Jesus Carranza MD Oct 18, 2018 16:14
--- NOTE | 2018-10-18 18:15 | Consultation ---
Consult Note Consult Note asked to eval for HypoNatremia admitted 8 days ago 68 years old male with past medical history of CVA with right-sided hemiparesis and expressive aphasia, brain tumor, diabetes mellitus, hypertension, BPH, was sent from the halfway facility for altered mental status. Patient by himself was unable to provide any information. Upon evaluation in emergency department patient was tachycardic and hypoxic. He initially required 100% nonrebreathing mask. examined data reviewed Assessment/Plan HypoNatremia, ? Etiology further comments after intial blood and urine test results Cardiomyopathy with Ej Fx 25% HypoAlbuminemia Anemia Previously low Phos and Mag UTI Proteinuria other significant conditions: Altered mental status. Brain cancer. Seizure disorder. Diabetes type 2. History of cerebrovascular accident. Right hemiparesis. Hypertension. Coronary artery disease. Expressive aphasia. Hypercholesterolemia. Sepsis-Staph Epidermidis and Staph Hominis Sacral decubitus ulcer Plan: at this time patient has no NGT due ST in am Will change PO meds to IV Low Na downs ordered Per orders Juan Hopkins MD Oct 18, 2018 18:14
[2018-10-18] MEDS: D5NS 1,000 ML IV SCH (18:48)
[2018-10-18 20:00] VITALS: BP 147/96
[2018-10-18] MEDS: Pantoprazole Inj IVP SCH (21:10)
--- NOTE | 2018-10-18 23:38 | Neurology Progress Note ---
Interim History Interim History ROS Limited/Unobtainable: Yes Complaints: Seizure/ AMS Events: THIS VISIT WAS CONDUCTED ON OCTOBER 18, 2018. Objective Physical Exam Last Vital Signs Date Time Temp Pulse Resp B/P (MAP) Pulse Ox O2 Delivery O2 Flow Rate FiO2 10/18/18 21:00 Room Air Room Air 10/18/18 21:00 108 147/96 10/18/18 20:00 97.9 18 100 10/18/18 08:00 10.0 10.0 10/18/18 07:12 28 Laboratory Tests Test 10/18/18 04:15 White Blood Count 6.5 K/UL (4.8-10.8) Red Blood Count 3.34 M/UL (4.70-6.10) L Hemoglobin 10.6 G/DL (14.2-18.0) L Hematocrit 29.2 % (42.0-52.0) L Mean Corpuscular Volume 87 FL (80-99) Mean Corpuscular Hemoglobin 31.8 PG (27.0-31.0) H Mean Corpuscular Hemoglobin Concent 36.3 G/DL (32.0-36.0) H Red Cell Distribution Width 12.2 % (11.6-14.8) Platelet Count 124 K/UL (150-450) L Mean Platelet Volume 5.4 FL (6.5-10.1) L Neutrophils (%) (Auto) % (45.0-75.0) Lymphocytes (%) (Auto) % (20.0-45.0) Monocytes (%) (Auto) % (1.0-10.0) Eosinophils (%) (Auto) % (0.0-3.0) Basophils (%) (Auto) % (0.0-2.0) Differential Total Cells Counted 100 Neutrophils % (Manual) 91 % (45-75) H Lymphocytes % (Manual) 5 % (20-45) L Monocytes % (Manual) 3 % (1-10) Eosinophils % (Manual) 1 % (0-3) Basophils % (Manual) 0 % (0-2) Band Neutrophils 0 % (0-8) Platelet Estimate Decreased L Platelet Morphology Normal Hypochromasia 1+ Anisocytosis 1+ Sodium Level 129 MMOL/L (136-145) L Potassium Level 4.0 MMOL/L (3.5-5.1) Chloride Level 93 MMOL/L (98-107) L Carbon Dioxide Level 32 MMOL/L (21-32) Anion Gap 4 mmol/L (5-15) L Blood Urea Nitrogen 12 mg/dL (7-18) Creatinine 0.5 MG/DL (0.55-1.30) L Estimat Glomerular Filtration Rate > 60 mL/min (>60) Glucose Level 145 MG/DL (74-106) H Calcium Level 8.1 MG/DL (8.5-10.1) L Vancomycin Level Trough 13.4 ug/mL (5.0-12.0) H General: well developed, well nourished Head: normocophalic Neck: no rigidity EENT: benign Neurologic Exam Mental Status: other - REmains obtunded with intermittent eye opening and preferential gaze to the left - w/d x 4 PERLL - visual joe unable to be obtained but partial hemianopia also suspected on the right side. Speech: other Cranial Nerve II: other Cranial Nerves III, IV, : PERRLA, EOMI, pupils Cranial Nerve VII: other - Some baseline facial asymmetry - due to previous infarct Cranial Nerve IX: normal palate elevation Cranial Nerve XI: SCM symmetric Motor System: normal muscle tone Sensory: normal pinprick, normal light touch, other - Some sensory loss on right side but not completely - requiring increased intensity of stimuli to be felt though. Deep Tendon Reflexes: 2+ bicep (L), 2+ bicep (R), 2+ tricep (L), 2+ tricep (R) , 2+ brachioradialis (L), 2+ brachioradialis (R), 2+ knee (L), 2+ knee (R), 2+ ankle (L), 2+ ankle (R) Stance: normal Gait: stable, normal regular, heel + toe gait Objective Awake and alert now but not following commands and non verbal- only making sounds Localizing on left side/ withdrawal only on right side . Impression/Recommendations Problems: (1) Acute encephalopathy Assessment & Plan: Q4 Hour Neuro OBs (2) acute toxic encephalopathy Assessment & Plan: Frequent stimulation of patient Q 4 hour neuro obs (3) Altered level of consciousness Assessment & Plan: PT/ OT Eval Na 135-145 OOB to chair as soon as able. Abx as per ID team Maintain normothermia with Tylenol / coolling blanket as need. MRI Brain w/wo contrast EEG as outpatient (4) Sepsis Assessment & Plan: Treat with IV abx as per ID (5) Brain tumor Assessment & Plan: MRI Brain w/ Contrast for investigation of recurrent primary tumor . CT taken in September did not demonstrate mass effect but also not the most sensitive test for detecting intraparenchymal masses. MRI 10/12/18 Encephalomalacia of the left anterior temporal lobe and adjacent frontal and parietal opercula; reportedly, this was for resection of an oligodendroglioma. No contrast enhancement to suggest recurrent tumor is evident currently. There is evidence of old peripheral hemorrhage, presumably related to the prior surgery. 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 MRI Brain w/wo for investigation of new CVA vs Mass (7) Diabetes mellitus Assessment & Plan: Normoglycemia with ISS (8) Hypertension Assessment & Plan: Maintain SBP<140 with antiHTN meds. 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 No contrast enhancement to suggest recurrent tumor is evident currently. There is evidence of old peripheral hemorrhage, presumably related to the prior surgery. 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 Now on 500mg BID - Will monitor for seizure activity - Renewed Q4 hour neuro obs DR. JIMENEZ will discuss MRI and managment with patient's neuro-oncologist Dr. Naldo Wiseman at [facility] Vidya Sun N.P. Oct 18, 2018 23:38
[2018-10-19] VITALS: BP 128/77
[2018-10-19] MEDS: NovoLOG Insulin Flexpen SUBQ SCH ×4 (00:13→18:00)
[2018-10-19 04:00] VITALS: BP 131/83
[2018-10-19 06:10] LABS: HEMATOCRIT 27.9 % (42.0-52.0); MEAN CORPUSCULAR VOLUME 88 FL (80-99); PLATELET COUNT 129 K/UL (150-450); RED BLOOD COUNT 3.15 M/UL (4.70-6.10); RED CELL DISTRIBUTION WIDTH 12.4 % (11.6-14.8); WHITE BLOOD COUNT 5.7 K/UL (4.8-10.8)
[2018-10-19 06:32] LABS: CREATINE KINASE 61 U/L (26-308); GAMMA GLUTAMYL TRANSPEPTIDASE 23 U/L (5-85); PHOSPHORUS 2.5 MG/DL (2.5-4.9)
--- NOTE | 2018-10-19 06:39 | General Progress Note ---
Assessment/Plan Problem List: (1) Brain tumor ICD Codes: D49.6 - Neoplasm of unspecified behavior of brain SNOMED: 824011747 (2) Altered level of consciousness ICD Codes: R40.4 - Transient alteration of awareness SNOMED: 3524486 (3) Diabetes mellitus ICD Codes: E11.9 - Type 2 diabetes mellitus without complications SNOMED: 04150366 (4) Hypertension ICD Codes: I10 - Essential (primary) hypertension SNOMED: 82493169 Status: stable, not improved Assessment/Plan: no need for basal insulin continue NISS every 6 hours Subjective ROS Limited/Unobtainable: Yes Allergies: Coded Allergies: No Known Allergies (Unverified , 09/27/18) Subjective events noted Item Value Date Time Bedside Blood Glucose 151 mg/dl H 10/19/18 0615 Bedside Blood Glucose 170 mg/dl H 10/19/18 0013 Bedside Blood Glucose 159 mg/dl H 10/18/18 1752 Bedside Blood Glucose 147 mg/dl H 10/18/18 1200 Bedside Blood Glucose 148 mg/dl H 10/18/18 0624 Bedside Blood Glucose 158 mg/dl H 10/18/18 0055 Objective Last 24 Hour Vital Signs Date Time Temp Pulse Resp B/P (MAP) Pulse Ox O2 Delivery O2 Flow Rate FiO2 10/19/18 04:00 97.6 110 18 131/83 (99) 96 10/19/18 00:00 98.5 111 18 128/77 (94) 98 10/18/18 21:00 Room Air Room Air 10/18/18 21:00 108 147/96 10/18/18 20:00 97.9 108 18 147/96 (113) 100 10/18/18 16:00 98.2 103 20 140/76 (97) 98 10/18/18 12:00 98.1 114 20 147/96 (113) 100 10/18/18 08:00 Venturi Mask 10.0 Venturi Mask 10.0 10/18/18 08:00 97.2 107 20 136/85 (102) 98 10/18/18 07:12 Nasal Cannula 2.0 28 10/18/18 07:12 105 18 Nasal Cannula 2.0 28 10/18/18 07:12 97 Nasal Cannula 2.0 28 Intake and Output 10/18/18 10/19/18 18:59 06:59 Intake Total 630 ml 816.6 ml Output Total 600 ml 1400 ml Balance 30 ml -583.4 ml IV Total 630 ml 816.6 ml Output Urine Total 600 ml 1400 ml Laboratory Tests 10/18/18 23:48: Urine Osmolality 456H, Urine Random Sodium 73 10/19/18 05:00: White Blood Count 5.7, Red Blood Count 3.15L, Hemoglobin 10.0L, Hematocrit 27.9L , Mean Corpuscular Volume 88, Mean Corpuscular Hemoglobin 31.7H, Mean Corpuscular Hemoglobin Concent 35.8, Red Cell Distribution Width 12.4, Platelet Count 129L, Mean Platelet Volume 5.1L, Neutrophils (%) (Auto) , Lymphocytes (%) (Auto) , Monocytes (%) (Auto) , Eosinophils (%) (Auto) , Basophils (%) (Auto) , Neutrophils % (Manual) [Pending], Lymphocytes % (Manual) [Pending], Platelet Estimate [Pending], Platelet Morphology [Pending], Sodium Level [Pending], Potassium Level [Pending], Chloride Level [Pending], Carbon Dioxide Level [ Pending], Blood Urea Nitrogen [Pending], Creatinine [Pending], Estimat Glomerular Filtration Rate [Pending], Glucose Level [Pending], Hemoglobin A1c 7.4H, Osmolality [Pending], Uric Acid 2.4L, Calcium Level [Pending], Phosphorus Level 2.5, Magnesium Level 1.6L, Iron Level [Pending], Unsaturated Iron Binding [Pending], Ferritin [Pending], Total Bilirubin [Pending], Gamma Glutamyl Transpeptidase 23, Aspartate Amino Transf (AST/SGOT) [Pending], Alanine Aminotransferase (ALT/SGPT) [Pending], Alkaline Phosphatase [Pending], Total Creatine Kinase 61, C-Reactive Protein, Quantitative 16.2H, Pro-B-Type Natriuretic Peptide 1221H, Total Protein [Pending], Albumin [Pending], Globulin [Pending], Triglycerides Level [Pending], Cholesterol Level [Pending], LDL Cholesterol [Pending], HDL Cholesterol [Pending], Cholesterol/HDL Ratio [Pending ], Vitamin B12 Level [Pending], Folate [Pending], Thyroid Stimulating Hormone ( TSH) [Pending], Cortisol AM Sample [Pending], Vancomycin Level Trough [Pending] Height (Feet): 5 Height (Inches): 7.00 Weight (Pounds): 148 General Appearance: no apparent distress Neck: normal alignment Cardiovascular: normal rate Respiratory/Chest: decreased breath sounds Abdomen: normal bowel sounds Pelvis: normal external exam Edema: no edema noted Arm (L), no edema noted Arm (R), no edema noted Leg (L), no edema noted Leg (R), no edema noted Pedal (L), no edema noted Pedal (R), no edema noted Generalized Objective Current Medications Medications (Trade) Dose Ordered Sig/Chace Route PRN Reason Start Time Stop Time Status Last Admin Dose Admin Acetaminophen (Tylenol) 650 mg Q4H PRN ORAL T>100.5 10/13/18 16:30 11/09/18 16:29 Carvedilol (Coreg) 12.5 mg EVERY 12 HOURS NG 10/13/18 21:00 11/12/18 08:59 10/16/18 08:33 Ceftriaxone Sodium 2 gm/ Dextrose 55 ml @ 110 mls/hr Q24H IVPB 10/14/18 16:00 10/19/18 23:59 10/18/18 16:11 Dexamethasone (Decadron) 4 mg BID NG 10/13/18 18:00 11/12/18 08:59 10/16/18 08:33 Dextrose (Dextrose 50%) 25 ml Q30M PRN IV Hypoglycemia 10/14/18 13:30 11/13/18 13:29 Dextrose (Dextrose 50%) 50 ml Q30M PRN IV Hypoglycemia 10/14/18 13:30 11/13/18 13:29 Dextrose/Sodium Chloride 1,000 ml @ 50 mls/hr Q20H IV 10/18/18 18:30 11/17/18 18:29 10/18/18 18:48 Heparin Sodium (Porcine) (Heparin 5000 units/ml) 5,000 units EVERY 12 HOURS SUBQ 10/13/18 21:00 11/09/18 20:59 10/18/18 21:13 Insulin Aspart (NovoLOG) EVERY 6 HOURS SUBQ 10/14/18 18:00 11/09/18 16:29 10/19/18 06:10 Lorazepam (Ativan 2mg/ml 1ml) 1 mg Q2H PRN IV For Anxiety 10/16/18 16:22 10/23/18 16:21 Ondansetron HCl (Zofran) 4 mg Q6H PRN IVP Nausea & Vomiting 10/13/18 16:30 11/09/18 16:29 Pantoprazole (Protonix) 40 mg EVERY 12 HOURS IVP 10/18/18 21:00 11/17/18 20:59 10/18/18 21:10 Polyethylene Glycol (Miralax) 17 gm DAILYPRN PRN ORAL Constipation 10/13/18 16:30 11/12/18 16:29 Promethazine HCl/ Codeine (Phenergan with Codeine) 5 ml Q4H PRN ORAL For Cough 10/13/18 16:30 11/09/18 16:29 Vancomycin HCl (Vanco rx to dose) 1 ea DAILY PRN MISC . 10/14/18 09:00 11/09/18 13:29 Vancomycin HCl 750 mg/Sodium Chloride 275 ml @ 183.333 mls/hr Q8H IVPB 10/18/18 06:00 10/23/18 05:59 10/18/18 21:10 Richard Lugo MD Oct 19, 2018 06:39
[2018-10-19 06:50] LABS: ALANINE AMINOTRANSFERASE 20 U/L (12-78); ALBUMIN 1.6 G/DL (3.4-5.0); ALBUMIN/GLOBULIN RATIO 0.4 (1.0-2.7); ALKALINE PHOSPHATASE 54 U/L (46-116); ANION GAP 4 mmol/L (5-15); ASPARTATE AMINO TRANSFERASE 23 U/L (15-37); BILIRUBIN,TOTAL 0.4 MG/DL (0.2-1.0); BLOOD UREA NITROGEN 8 mg/dL (7-18); CALCIUM 7.9 MG/DL (8.5-10.1); CARBON DIOXIDE 31 MMOL/L (21-32); CHLORIDE 97 MMOL/L (98-107); CHOLESTEROL 90 MG/DL (< 200); CREATININE 0.5 MG/DL (0.55-1.30); HDL CHOLESTEROL 24 MG/DL (40-60); POTASSIUM 3.6 MMOL/L (3.5-5.1); SODIUM 132 MMOL/L (136-145); TRIGLYCERIDES 89 MG/DL (30-150)
[2018-10-19 07:29] LABS: FERRITIN 1105 NG/ML (8-388)
[2018-10-19] MEDS: Vancomycin 750mg/NS 275ml IVPB SCH ×6 (07:34→23:22)
[2018-10-19 08:00] VITALS: BP 130/79
[2018-10-19 08:15] LABS: % IRON SATURATION 27 % (15-50); IRON 26 ug/dL (50-175); TOTAL IRON BINDING CAPACITY 96 ug/dL (250-450)
[2018-10-19] MEDS: Heparin 5000 units/ml inj SUBQ SCH ×2 (09:00→23:30)
[2018-10-19] MEDS: Carvedilol 12.5mg tab NG SCH ×2 (09:00→21:00)
[2018-10-19] MEDS: Pantoprazole Inj IVP SCH ×2 (10:44→21:00)
--- NOTE | 2018-10-19 10:46 | Nephrology Progress Note ---
Assessment/Plan Problem List: (1) Hyponatremia (2) Cardiomyopathy (3) Diabetes mellitus (4) Encephalopathy (5) Anemia Assessment HypoNatremia, ? Etiology further comments after intial blood and urine test results Cardiomyopathy with Ej Fx 25% HypoAlbuminemia Anemia Previously low Phos and Mag UTI Proteinuria other significant conditions: Altered mental status. Brain cancer. Seizure disorder. Diabetes type 2. History of cerebrovascular accident. Right hemiparesis. Hypertension. Coronary artery disease. Expressive aphasia. Hypercholesterolemia. Sepsis-Staph Epidermidis and Staph Hominis Sacral decubitus ulcer Plan Plan: at this time patient has no NGT due ST Will change PO meds to IV Low Na downs ordered, likely related to low Albumin and cardiomyopathy trial 3% and Lasix start digoxin Per orders Subjective ROS Limited/Unobtainable: No Constitutional: Reports: malaise, weakness Objective Objective Last 24 Hour Vital Signs Date Time Temp Pulse Resp B/P (MAP) Pulse Ox O2 Delivery O2 Flow Rate FiO2 10/19/18 09:00 100 130/79 10/19/18 08:12 Nasal Cannula 2.0 28 10/19/18 08:11 96 Nasal Cannula 2.0 28 10/19/18 04:00 97.6 110 18 131/83 (99) 96 10/19/18 00:00 98.5 111 18 128/77 (94) 98 10/18/18 21:00 Room Air Room Air 10/18/18 21:00 108 147/96 10/18/18 20:00 97.9 108 18 147/96 (113) 100 10/18/18 16:00 98.2 103 20 140/76 (97) 98 10/18/18 12:00 98.1 114 20 147/96 (113) 100 Intake and Output 10/18/18 10/19/18 19:00 07:00 Intake Total 580 ml 941.6 ml Output Total 600 ml 1400 ml Balance -20 ml -458.4 ml IV Total 580 ml 941.6 ml Output Urine Total 600 ml 1400 ml Laboratory Tests 10/18/18 23:48: Urine Osmolality 456H, Urine Random Sodium 73 10/19/18 05:00: White Blood Count 5.7, Red Blood Count 3.15L, Hemoglobin 10.0L, Hematocrit 27.9L , Mean Corpuscular Volume 88, Mean Corpuscular Hemoglobin 31.7H, Mean Corpuscular Hemoglobin Concent 35.8, Red Cell Distribution Width 12.4, Platelet Count 129L, Mean Platelet Volume 5.1L, Neutrophils (%) (Auto) , Lymphocytes (%) (Auto) , Monocytes (%) (Auto) , Eosinophils (%) (Auto) , Basophils (%) (Auto) , Differential Total Cells Counted 100, Neutrophils % (Manual) 85H, Lymphocytes % (Manual) 4L, Monocytes % (Manual) 4, Eosinophils % (Manual) 1, Basophils % ( Manual) 0, Band Neutrophils 6, Platelet Estimate DecreasedL, Platelet Morphology Normal, Polychromasia 1+, Sodium Level 132L, Potassium Level 3.6, Chloride Level 97L, Carbon Dioxide Level 31, Anion Gap 4L, Blood Urea Nitrogen 8 , Creatinine 0.5L, Estimat Glomerular Filtration Rate > 60, Glucose Level 140H, Hemoglobin A1c 7.4H, Osmolality 273L, Uric Acid 2.4L, Calcium Level 7.9L, Phosphorus Level 2.5, Magnesium Level 1.6L, Iron Level 26L, Total Iron Binding Capacity 96L, Percent Iron Saturation 27, Unsaturated Iron Binding 70L, Ferritin 1105H, Total Bilirubin 0.4, Gamma Glutamyl Transpeptidase 23, Aspartate Amino Transf (AST/SGOT) 23, Alanine Aminotransferase (ALT/SGPT) 20, Alkaline Phosphatase 54, Total Creatine Kinase 61, C-Reactive Protein, Quantitative 16.2H, Pro-B-Type Natriuretic Peptide 1221H, Total Protein 5.6L, Albumin 1.6L, Globulin 4.0, Albumin/Globulin Ratio 0.4L, Triglycerides Level 89 , Cholesterol Level 90, LDL Cholesterol 60, HDL Cholesterol 24L, Cholesterol/ HDL Ratio 3.8, Vitamin B12 Level > 2000H, Folate 9.9, Thyroid Stimulating Hormone (TSH) 1.939, Cortisol AM Sample [Pending], Vancomycin Level Trough 14.9H Height (Feet): 5 Height (Inches): 7.00 Weight (Pounds): 148 General Appearance: no apparent distress Cardiovascular: tachycardia Respiratory/Chest: decreased breath sounds Abdomen: soft Juan Hopkins MD Oct 19, 2018 10:46
--- NOTE | 2018-10-19 10:50 | Infectious Diseases Prog Note ---
Assessment/Plan Assessment/Plan ssessment: Sepsis Probable UTI -u/a wbc 30-40, nit neg, leuk +3; ucx >100K E.coli (R Cipro/Levo; otherwise) Gram positive bacteremia, -10/10 BCx 09/24 S. hominis, S. epi; 10/13 Bcx NTD -2d Echo: no vegetations seen Infected Sacral decubitus ulcer ( Path findings : acute OM ) -10/13 SP Excision of sacral pressure ulcer with coccygectomy and ostectomy. Afebrile Pancytopenia Acute respiratory failure on VM- no obvious PNA on CXR -CXR: Minimal left midlung atelectasis. No acute process otherwise Satisfactory nasogastric intubation, also demonstrated on recent abdomen radiograph -sp cx MRSA, C. albicans (likely colonizers as no PNA on CXR) Acute encephalopathy -CT brain wo: Chronic and age-related changes as described. Postsurgical changes with underlying temporal, parietal, and frontal encephalomalacia. 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 No contrast enhancement to suggest recurrent tumor is evident currently. There is evidence of old peripheral hemorrhage, presumably related to the prior surgery. 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 Negative for acute intracranial bleed, mass effect, infarct, or contrast enhancing lesion. Chronic and age-related changes, as described CVA w/ R hemiparesis and aphasia HTN HLD BPH Dm2 s/p appendectomy s/p tonsillectomy CAD seizure disorder SNF resident Plan: - Continue IV Vancomycin # and start IV zosyn d# 07/22 - DC Ceftriaxone #8 (abx d# 04/01-) for UTI and for wound infection -10/12 SP Cefepime #3 -Monitor CBC/CMP, temperatures -f/u Bcx x2 (reordered) -wound care per surgical team -aspiration precautions -Sx f/u -f/u wound cx case was DW Surg. Subjective Allergies: Coded Allergies: No Known Allergies (Unverified , 09/27/18) Subjective Afebrile Objective Vital Signs Last 24 Hour Vital Signs Date Time Temp Pulse Resp B/P (MAP) Pulse Ox O2 Delivery O2 Flow Rate FiO2 10/19/18 08:12 Nasal Cannula 2.0 10/19/18 08:11 96 Nasal Cannula 2.0 10/19/18 04:00 97.6 110 18 131/83 (99) 96 10/19/18 00:00 98.5 111 18 128/77 (94) 98 10/18/18 21:00 Room Air Room Air 10/18/18 21:00 108 147/96 10/18/18 20:00 97.9 108 18 147/96 (113) 100 10/18/18 16:00 98.2 103 20 140/76 (97) 98 10/18/18 12:00 98.1 114 20 147/96 (113) 100 Height (Feet): 5 Height (Inches): 7.00 Weight (Pounds): 148 HEENT: anicteric Respiratory/Chest: normal breath sounds Cardiovascular: regularly irregular Laboratory Tests Test 10/18/18 23:48 10/19/18 05:00 Urine Osmolality 456 mOsm/kg (429-449) H Urine Random Sodium 73 mmol/L (20-110) White Blood Count 5.7 K/UL (4.8-10.8) Red Blood Count 3.15 M/UL (4.70-6.10) L Hemoglobin 10.0 G/DL (14.2-18.0) L Hematocrit 27.9 % (42.0-52.0) L Mean Corpuscular Volume 88 FL (80-99) Mean Corpuscular Hemoglobin 31.7 PG (27.0-31.0) H Mean Corpuscular Hemoglobin Concent 35.8 G/DL (32.0-36.0) Red Cell Distribution Width 12.4 % (11.6-14.8) Platelet Count 129 K/UL (150-450) L Mean Platelet Volume 5.1 FL (6.5-10.1) L Neutrophils (%) (Auto) % (45.0-75.0) Lymphocytes (%) (Auto) % (20.0-45.0) Monocytes (%) (Auto) % (1.0-10.0) Eosinophils (%) (Auto) % (0.0-3.0) Basophils (%) (Auto) % (0.0-2.0) Differential Total Cells Counted 100 Neutrophils % (Manual) 85 % (45-75) H Lymphocytes % (Manual) 4 % (20-45) L Monocytes % (Manual) 4 % (1-10) Eosinophils % (Manual) 1 % (0-3) Basophils % (Manual) 0 % (0-2) Band Neutrophils 6 % (0-8) Platelet Estimate Decreased L Platelet Morphology Normal Polychromasia 1+ Sodium Level 132 MMOL/L (136-145) L Potassium Level 3.6 MMOL/L (3.5-5.1) Chloride Level 97 MMOL/L (98-107) L Carbon Dioxide Level 31 MMOL/L (21-32) Anion Gap 4 mmol/L (5-15) L Blood Urea Nitrogen 8 mg/dL (7-18) Creatinine 0.5 MG/DL (0.55-1.30) L Estimat Glomerular Filtration Rate > 60 mL/min (>60) Glucose Level 140 MG/DL (74-106) H Hemoglobin A1c 7.4 % (4.3-6.0) H Osmolality 273 mOsm/kg (297-317) L Uric Acid 2.4 MG/DL (2.6-7.2) L Calcium Level 7.9 MG/DL (8.5-10.1) L Phosphorus Level 2.5 MG/DL (2.5-4.9) Magnesium Level 1.6 MG/DL (1.8-2.4) L Iron Level 26 ug/dL (50-175) L Total Iron Binding Capacity 96 ug/dL (250-450) L Percent Iron Saturation 27 % (15-50) Unsaturated Iron Binding 70 ug/dL (112-346) L Ferritin 1105 NG/ML (8-388) H Total Bilirubin 0.4 MG/DL (0.2-1.0) Gamma Glutamyl Transpeptidase 23 U/L (5-85) Aspartate Amino Transf (AST/SGOT) 23 U/L (15-37) Alanine Aminotransferase (ALT/SGPT) 20 U/L (12-78) Alkaline Phosphatase 54 U/L (46-116) Total Creatine Kinase 61 U/L (26-308) C-Reactive Protein, Quantitative 16.2 mg/dL (0.00-0.90) H Pro-B-Type Natriuretic Peptide 1221 pg/mL (0-125) H Total Protein 5.6 G/DL (6.4-8.2) L Albumin 1.6 G/DL (3.4-5.0) L Globulin 4.0 g/dL Albumin/Globulin Ratio 0.4 (1.0-2.7) L Triglycerides Level 89 MG/DL (30-150) Cholesterol Level 90 MG/DL (< 200) LDL Cholesterol 60 mg/dL (<100) HDL Cholesterol 24 MG/DL (40-60) L Cholesterol/HDL Ratio 3.8 (3.3-4.4) Vitamin B12 Level > 2000 PG/ML (193-986) H Folate 9.9 NG/ML (8.6-58.9) Thyroid Stimulating Hormone (TSH) 1.939 uiU/mL (0.358-3.740) Cortisol AM Sample Pending Vancomycin Level Trough 14.9 ug/mL (5.0-12.0) H Current Medications Medications (Trade) Dose Ordered Sig/Chace Route PRN Reason Start Time Stop Time Status Last Admin Dose Admin Acetaminophen (Tylenol) 650 mg Q4H PRN ORAL T>100.5 10/13/18 16:30 11/09/18 16:29 Carvedilol (Coreg) 12.5 mg EVERY 12 HOURS NG 10/13/18 21:00 11/12/18 08:59 10/16/18 08:33 Ceftriaxone Sodium 2 gm/ Dextrose 55 ml @ 110 mls/hr Q24H IVPB 10/14/18 16:00 10/23/18 15:59 10/18/18 16:11 Dexamethasone (Decadron) 4 mg BID NG 10/13/18 18:00 11/12/18 08:59 10/16/18 08:33 Dextrose (Dextrose 50%) 25 ml Q30M PRN IV Hypoglycemia 10/14/18 13:30 11/13/18 13:29 Dextrose (Dextrose 50%) 50 ml Q30M PRN IV Hypoglycemia 10/14/18 13:30 11/13/18 13:29 Dextrose/Sodium Chloride 1,000 ml @ 50 mls/hr Q20H IV 10/18/18 18:30 11/17/18 18:29 10/18/18 18:48 Heparin Sodium (Porcine) (Heparin 5000 units/ml) 5,000 units EVERY 12 HOURS SUBQ 10/13/18 21:00 11/09/18 20:59 10/18/18 21:13 Insulin Aspart (NovoLOG) EVERY 6 HOURS SUBQ 10/14/18 18:00 11/09/18 16:29 10/19/18 06:10 Lorazepam (Ativan 2mg/ml 1ml) 1 mg Q2H PRN IV For Anxiety 10/16/18 16:22 10/23/18 16:21 Ondansetron HCl (Zofran) 4 mg Q6H PRN IVP Nausea & Vomiting 10/13/18 16:30 11/09/18 16:29 Pantoprazole (Protonix) 40 mg EVERY 12 HOURS IVP 10/18/18 21:00 11/17/18 20:59 10/18/18 21:10 Polyethylene Glycol (Miralax) 17 gm DAILYPRN PRN ORAL Constipation 10/13/18 16:30 11/12/18 16:29 Promethazine HCl/ Codeine (Phenergan with Codeine) 5 ml Q4H PRN ORAL For Cough 10/13/18 16:30 11/09/18 16:29 Vancomycin HCl (Vanco rx to dose) 1 ea DAILY PRN MISC . 10/14/18 09:00 11/09/18 13:29 Vancomycin HCl 750 mg/Sodium Chloride 275 ml @ 183.333 mls/hr Q8H IVPB 10/18/18 06:00 10/23/18 05:59 10/19/18 07:34 Alex Carias MD Oct 19, 2018 10:50
[2018-10-19 12:09] VITALS: BP 136/84
--- NOTE | 2018-10-19 12:50 | Pulmonology Progress Note ---
Assessment/Plan Problems: (1) acute toxic encephalopathy (2) Sepsis (3) Brain tumor (4) Sacral decubitus ulcer (5) Hypertension (6) Diabetes mellitus (7) History of CVA (cerebrovascular accident) Assessment/Plan talked to pts son, Juan, he needs to talk to his brother, Denis Garcia [phone] to make a decision about Gtube ON NG tube feeding MRI of brain done Encephalomalacia of the left anterior temporal lobe and adjacent frontal and parietal opercula; f/u cultures continue abx sliding scale monitor BP Subjective ROS Limited/Unobtainable: No Constitutional: Reports: no symptoms HEENT: Repors: no symptoms Respiratory: Reports: no symptoms Allergies: Coded Allergies: No Known Allergies (Unverified , 09/27/18) Objective Last 24 Hour Vital Signs Date Time Temp Pulse Resp B/P (MAP) Pulse Ox O2 Delivery O2 Flow Rate FiO2 10/19/18 12:09 98.9 103 18 136/84 (101) 98 10/19/18 09:00 100 130/79 10/19/18 09:00 Room Air Room Air 10/19/18 08:12 Nasal Cannula 2.0 28 10/19/18 08:11 96 Nasal Cannula 2.0 28 10/19/18 08:00 96.8 100 130/79 (96) 10/19/18 04:00 97.6 110 18 131/83 (99) 96 10/19/18 00:00 98.5 111 18 128/77 (94) 98 10/18/18 21:00 Room Air Room Air 10/18/18 21:00 108 147/96 10/18/18 20:00 97.9 108 18 147/96 (113) 100 10/18/18 16:00 98.2 103 20 140/76 (97) 98 Intake and Output 10/18/18 10/19/18 19:00 07:00 Intake Total 580 ml 941.6 ml Output Total 600 ml 1400 ml Balance -20 ml -458.4 ml IV Total 580 ml 941.6 ml Output Urine Total 600 ml 1400 ml Objective General Appearance: WD/WN HEENT: normocephalic, atraumatic Respiratory/Chest: chest wall non-tender, normal breath sounds Cardiovascular: normal peripheral pulses, normal rate Abdomen: normal bowel sounds, soft, non tender, no organomegaly, non distended Extremities: no cyanosis Skin: no rash, no lesions, no ulcers Laboratory Tests 10/18/18 23:48: Urine Osmolality 456H, Urine Random Sodium 73 10/19/18 05:00: White Blood Count 5.7, Red Blood Count 3.15L, Hemoglobin 10.0L, Hematocrit 27.9L , Mean Corpuscular Volume 88, Mean Corpuscular Hemoglobin 31.7H, Mean Corpuscular Hemoglobin Concent 35.8, Red Cell Distribution Width 12.4, Platelet Count 129L, Mean Platelet Volume 5.1L, Neutrophils (%) (Auto) , Lymphocytes (%) (Auto) , Monocytes (%) (Auto) , Eosinophils (%) (Auto) , Basophils (%) (Auto) , Differential Total Cells Counted 100, Neutrophils % (Manual) 85H, Lymphocytes % (Manual) 4L, Monocytes % (Manual) 4, Eosinophils % (Manual) 1, Basophils % ( Manual) 0, Band Neutrophils 6, Platelet Estimate DecreasedL, Platelet Morphology Normal, Polychromasia 1+, Sodium Level 132L, Potassium Level 3.6, Chloride Level 97L, Carbon Dioxide Level 31, Anion Gap 4L, Blood Urea Nitrogen 8 , Creatinine 0.5L, Estimat Glomerular Filtration Rate > 60, Glucose Level 140H, Hemoglobin A1c 7.4H, Osmolality 273L, Uric Acid 2.4L, Calcium Level 7.9L, Phosphorus Level 2.5, Magnesium Level 1.6L, Iron Level 26L, Total Iron Binding Capacity 96L, Percent Iron Saturation 27, Unsaturated Iron Binding 70L, Ferritin 1105H, Total Bilirubin 0.4, Gamma Glutamyl Transpeptidase 23, Aspartate Amino Transf (AST/SGOT) 23, Alanine Aminotransferase (ALT/SGPT) 20, Alkaline Phosphatase 54, Total Creatine Kinase 61, C-Reactive Protein, Quantitative 16.2H, Pro-B-Type Natriuretic Peptide 1221H, Total Protein 5.6L, Albumin 1.6L, Globulin 4.0, Albumin/Globulin Ratio 0.4L, Triglycerides Level 89 , Cholesterol Level 90, LDL Cholesterol 60, HDL Cholesterol 24L, Cholesterol/ HDL Ratio 3.8, Vitamin B12 Level > 2000H, Folate 9.9, Thyroid Stimulating Hormone (TSH) 1.939, Cortisol AM Sample [Pending], Vancomycin Level Trough 14.9H Current Medications Medications (Trade) Dose Ordered Sig/Chace Route PRN Reason Start Time Stop Time Status Last Admin Dose Admin Acetaminophen (Tylenol) 650 mg Q4H PRN ORAL T>100.5 10/13/18 16:30 11/09/18 16:29 Carvedilol (Coreg) 12.5 mg EVERY 12 HOURS NG 10/13/18 21:00 11/12/18 08:59 10/16/18 08:33 Dexamethasone (Decadron) 4 mg EVERY 6 HOURS NG 10/19/18 12:00 11/12/18 08:59 Dextrose (Dextrose 50%) 25 ml Q30M PRN IV Hypoglycemia 10/14/18 13:30 11/13/18 13:29 Dextrose (Dextrose 50%) 50 ml Q30M PRN IV Hypoglycemia 10/14/18 13:30 11/13/18 13:29 Dextrose/Sodium Chloride 1,000 ml @ 50 mls/hr Q20H IV 10/18/18 18:30 11/17/18 18:29 10/18/18 18:48 Digoxin (Lanoxin) 0.25 mg DAILY ORAL 10/20/18 09:00 11/19/18 08:59 Furosemide (Lasix) 10 mg EVERY 8 HOURS IV 10/19/18 14:00 11/18/18 13:59 Heparin Sodium (Porcine) (Heparin 5000 units/ml) 5,000 units EVERY 12 HOURS SUBQ 10/13/18 21:00 11/09/18 20:59 10/18/18 21:13 Insulin Aspart (NovoLOG) EVERY 6 HOURS SUBQ 10/14/18 18:00 11/09/18 16:29 10/19/18 06:10 Lorazepam (Ativan 2mg/ml 1ml) 1 mg Q2H PRN IV For Anxiety 10/16/18 16:22 10/23/18 16:21 Ondansetron HCl (Zofran) 4 mg Q6H PRN IVP Nausea & Vomiting 10/13/18 16:30 11/09/18 16:29 Pantoprazole (Protonix) 40 mg EVERY 12 HOURS IVP 10/18/18 21:00 11/17/18 20:59 10/19/18 10:44 Piperacillin Sod/ Tazobactam Sod 3.375 gm/Sodium Chloride 110 ml @ 27.5 mls/hr EVERY 8 HOURS IVPB 10/19/18 14:00 10/24/18 13:59 Polyethylene Glycol (Miralax) 17 gm DAILYPRN PRN ORAL Constipation 10/13/18 16:30 11/12/18 16:29 Promethazine HCl/ Codeine (Phenergan with Codeine) 5 ml Q4H PRN ORAL For Cough 10/13/18 16:30 11/09/18 16:29 Vancomycin HCl (Vanco rx to dose) 1 ea DAILY PRN MISC . 10/14/18 09:00 11/09/18 13:29 Vancomycin HCl 750 mg/Sodium Chloride 275 ml @ 183.333 mls/hr Q8H IVPB 10/18/18 06:00 10/23/18 05:59 10/19/18 07:34 Raul Feng MD Oct 19, 2018 12:50
[2018-10-19] MEDS: D5NS 1,000 ML IV SCH (14:30)
[2018-10-19 16:17] VITALS: BP 100/60
[2018-10-19] MEDS: Piperacillin/Tazobactam 3.375 GM in NS 110 ML IVPB SCH (16:30)
--- NOTE | 2018-10-19 19:15 | Internal Med Progress Note ---
Subjective Date of Service: Oct 19, 2018 Physician Name Jesus Kidd Attending Physician Camacho Braun MD Current Medications Medications (Trade) Dose Ordered Sig/Chace Route PRN Reason Start Time Stop Time Status Last Admin Dose Admin Acetaminophen (Tylenol) 650 mg Q4H PRN ORAL T>100.5 10/13/18 16:30 11/09/18 16:29 Carvedilol (Coreg) 12.5 mg EVERY 12 HOURS NG 10/13/18 21:00 11/12/18 08:59 10/16/18 08:33 Dexamethasone (Decadron) 4 mg EVERY 6 HOURS NG 10/19/18 12:00 11/12/18 08:59 Dextrose (Dextrose 50%) 25 ml Q30M PRN IV Hypoglycemia 10/14/18 13:30 11/13/18 13:29 Dextrose (Dextrose 50%) 50 ml Q30M PRN IV Hypoglycemia 10/14/18 13:30 11/13/18 13:29 Dextrose/Sodium Chloride 1,000 ml @ 50 mls/hr Q20H IV 10/18/18 18:30 11/17/18 18:29 10/18/18 18:48 Digoxin (Lanoxin) 0.25 mg DAILY ORAL 10/20/18 09:00 11/19/18 08:59 Furosemide (Lasix) 10 mg EVERY 8 HOURS IV 10/19/18 14:00 11/18/18 13:59 Heparin Sodium (Porcine) (Heparin 5000 units/ml) 5,000 units EVERY 12 HOURS SUBQ 10/13/18 21:00 11/09/18 20:59 10/18/18 21:13 Insulin Aspart (NovoLOG) EVERY 6 HOURS SUBQ 10/14/18 18:00 11/09/18 16:29 10/19/18 06:10 Lorazepam (Ativan 2mg/ml 1ml) 1 mg Q2H PRN IV For Anxiety 10/16/18 16:22 10/23/18 16:21 Ondansetron HCl (Zofran) 4 mg Q6H PRN IVP Nausea & Vomiting 10/13/18 16:30 11/09/18 16:29 Pantoprazole (Protonix) 40 mg EVERY 12 HOURS IVP 10/18/18 21:00 11/17/18 20:59 10/19/18 10:44 Piperacillin Sod/ Tazobactam Sod 3.375 gm/Sodium Chloride 110 ml @ 27.5 mls/hr EVERY 8 HOURS IVPB 10/19/18 14:00 10/24/18 13:59 10/19/18 16:30 Polyethylene Glycol (Miralax) 17 gm DAILYPRN PRN ORAL Constipation 10/13/18 16:30 11/12/18 16:29 Promethazine HCl/ Codeine (Phenergan with Codeine) 5 ml Q4H PRN ORAL For Cough 10/13/18 16:30 11/09/18 16:29 Vancomycin HCl (Vanco rx to dose) 1 ea DAILY PRN MISC . 10/14/18 09:00 11/09/18 13:29 Vancomycin HCl 750 mg/Sodium Chloride 275 ml @ 183.333 mls/hr Q8H IVPB 10/18/18 06:00 10/23/18 05:59 10/19/18 15:10 Allergies: Coded Allergies: No Known Allergies (Unverified , 09/27/18) ROS Limited/Unobtainable: Yes Subjective 68 YO M with history of brain cancer admitted with altered mental status. Now UTI and sepsis. On venturi mask. Cover for Int Med-Dr Braun Objective Last Vital Signs Date Time Temp Pulse Resp B/P (MAP) Pulse Ox O2 Delivery O2 Flow Rate FiO2 10/19/18 16:17 99.3 112 18 100/60 (73) 97 10/19/18 09:00 Room Air Room Air 10/19/18 08:12 2.0 28 Laboratory Tests Test 10/18/18 23:48 10/19/18 05:00 Urine Osmolality 456 mOsm/kg (429-449) H Urine Random Sodium 73 mmol/L (20-110) White Blood Count 5.7 K/UL (4.8-10.8) Red Blood Count 3.15 M/UL (4.70-6.10) L Hemoglobin 10.0 G/DL (14.2-18.0) L Hematocrit 27.9 % (42.0-52.0) L Mean Corpuscular Volume 88 FL (80-99) Mean Corpuscular Hemoglobin 31.7 PG (27.0-31.0) H Mean Corpuscular Hemoglobin Concent 35.8 G/DL (32.0-36.0) Red Cell Distribution Width 12.4 % (11.6-14.8) Platelet Count 129 K/UL (150-450) L Mean Platelet Volume 5.1 FL (6.5-10.1) L Neutrophils (%) (Auto) % (45.0-75.0) Lymphocytes (%) (Auto) % (20.0-45.0) Monocytes (%) (Auto) % (1.0-10.0) Eosinophils (%) (Auto) % (0.0-3.0) Basophils (%) (Auto) % (0.0-2.0) Differential Total Cells Counted 100 Neutrophils % (Manual) 85 % (45-75) H Lymphocytes % (Manual) 4 % (20-45) L Monocytes % (Manual) 4 % (1-10) Eosinophils % (Manual) 1 % (0-3) Basophils % (Manual) 0 % (0-2) Band Neutrophils 6 % (0-8) Platelet Estimate Decreased L Platelet Morphology Normal Polychromasia 1+ Sodium Level 132 MMOL/L (136-145) L Potassium Level 3.6 MMOL/L (3.5-5.1) Chloride Level 97 MMOL/L (98-107) L Carbon Dioxide Level 31 MMOL/L (21-32) Anion Gap 4 mmol/L (5-15) L Blood Urea Nitrogen 8 mg/dL (7-18) Creatinine 0.5 MG/DL (0.55-1.30) L Estimat Glomerular Filtration Rate > 60 mL/min (>60) Glucose Level 140 MG/DL (74-106) H Hemoglobin A1c 7.4 % (4.3-6.0) H Osmolality 273 mOsm/kg (297-317) L Uric Acid 2.4 MG/DL (2.6-7.2) L Calcium Level 7.9 MG/DL (8.5-10.1) L Phosphorus Level 2.5 MG/DL (2.5-4.9) Magnesium Level 1.6 MG/DL (1.8-2.4) L Iron Level 26 ug/dL (50-175) L Total Iron Binding Capacity 96 ug/dL (250-450) L Percent Iron Saturation 27 % (15-50) Unsaturated Iron Binding 70 ug/dL (112-346) L Ferritin 1105 NG/ML (8-388) H Total Bilirubin 0.4 MG/DL (0.2-1.0) Gamma Glutamyl Transpeptidase 23 U/L (5-85) Aspartate Amino Transf (AST/SGOT) 23 U/L (15-37) Alanine Aminotransferase (ALT/SGPT) 20 U/L (12-78) Alkaline Phosphatase 54 U/L (46-116) Total Creatine Kinase 61 U/L (26-308) C-Reactive Protein, Quantitative 16.2 mg/dL (0.00-0.90) H Pro-B-Type Natriuretic Peptide 1221 pg/mL (0-125) H Total Protein 5.6 G/DL (6.4-8.2) L Albumin 1.6 G/DL (3.4-5.0) L Globulin 4.0 g/dL Albumin/Globulin Ratio 0.4 (1.0-2.7) L Triglycerides Level 89 MG/DL (30-150) Cholesterol Level 90 MG/DL (< 200) LDL Cholesterol 60 mg/dL (<100) HDL Cholesterol 24 MG/DL (40-60) L Cholesterol/HDL Ratio 3.8 (3.3-4.4) Vitamin B12 Level > 2000 PG/ML (193-986) H Folate 9.9 NG/ML (8.6-58.9) Thyroid Stimulating Hormone (TSH) 1.939 uiU/mL (0.358-3.740) Cortisol AM Sample 14.1 UG/DL Vancomycin Level Trough 14.9 ug/mL (5.0-12.0) H Intake and Output 10/18/18 10/19/18 19:00 07:00 Intake Total 580 ml 941.6 ml Output Total 600 ml 1400 ml Balance -20 ml -458.4 ml IV Total 580 ml 941.6 ml Output Urine Total 600 ml 1400 ml Objective PHYSICAL EXAMINATION: GENERAL: The patient is well-developed and well-nourished male, in moderate respiratory distress. HEENT: Eyes, pupils are equal and responsive to light and accommodation. Extraocular movements are intact. NECK: Supple without lymphadenopathy. CHEST: venturi mask; Lungs with coarse breath sounds bilaterally CARDIOVASCULAR: Regular rhythm and rate. S1 and S2 normal without murmurs, rubs, or gallops. ABDOMEN: Soft, nontender, and nondistended. Positive bowel sounds. No evidence of hepatosplenomegaly, rebound or guarding noted. EXTREMITIES: Negative for clubbing, cyanosis, or edema. RECTAL/GENITAL: Not performed. NEUROLOGICAL: Cranial nerves II through XII are grossly intact without focal deficits Assessment/Plan Assessment/Plan ASSESSMENT: This is a 68-year-old male. 1. Altered mental status. 2. Urinary tract infection-E. Coli 3. Brain cancer. 4. Seizure disorder. 5. Diabetes type 2. 6. History of cerebrovascular accident. 7. Right hemiparesis. 8. Hypertension. 9. Coronary artery disease. 10. Expressive aphasia. 11. Hypercholesterolemia. 12. Sepsis-Staph Epidermidis and Staph Hominis 13 Sacral decubitus ulcer TREATMENT: 1. Altered mental status. This may be secondary to urinary tract infection. Urine culture is pending. The patient has been started empirically on vancomycin and cefepime. Await urine cultures. 2. Urinary tract infection-E.Coli. Abx=zosyn and vanco per ID follow recommendations of Infectious Diseases. 3. Brain cancer. 4. Seizure disorder. D/C Depakote and Lamictal per family request 5. Diabetes type 2. A NovoLog sliding scale has been instituted. 6. History of cerebrovascular accident. 7. Right hemiparesis. 8. Expressive aphasia. 9. Hypertension. The patient is currently hypotensive. 10. History of coronary artery disease. 11. Sepsis=Staph species; continue vanco per ID 12. Hospice Jesus Carranza MD Oct 19, 2018 19:15
[2018-10-19 20:00] VITALS: BP 105/69
--- NOTE | 2018-10-19 21:27 | Neurology Progress Note ---
Interim History Interim History ROS Limited/Unobtainable: Yes Complaints: Seizure/ AMS Events: THIS VISIT WAS CONDUCTED ON OCTOBER 19, 2018. Objective Physical Exam Last Vital Signs Date Time Temp Pulse Resp B/P (MAP) Pulse Ox O2 Delivery O2 Flow Rate FiO2 10/19/18 16:17 99.3 112 18 100/60 (73) 97 10/19/18 09:00 Room Air Room Air 10/19/18 08:12 2.0 28 Laboratory Tests Test 10/18/18 23:48 10/19/18 05:00 Urine Osmolality 456 mOsm/kg (429-449) H Urine Random Sodium 73 mmol/L (20-110) White Blood Count 5.7 K/UL (4.8-10.8) Red Blood Count 3.15 M/UL (4.70-6.10) L Hemoglobin 10.0 G/DL (14.2-18.0) L Hematocrit 27.9 % (42.0-52.0) L Mean Corpuscular Volume 88 FL (80-99) Mean Corpuscular Hemoglobin 31.7 PG (27.0-31.0) H Mean Corpuscular Hemoglobin Concent 35.8 G/DL (32.0-36.0) Red Cell Distribution Width 12.4 % (11.6-14.8) Platelet Count 129 K/UL (150-450) L Mean Platelet Volume 5.1 FL (6.5-10.1) L Neutrophils (%) (Auto) % (45.0-75.0) Lymphocytes (%) (Auto) % (20.0-45.0) Monocytes (%) (Auto) % (1.0-10.0) Eosinophils (%) (Auto) % (0.0-3.0) Basophils (%) (Auto) % (0.0-2.0) Differential Total Cells Counted 100 Neutrophils % (Manual) 85 % (45-75) H Lymphocytes % (Manual) 4 % (20-45) L Monocytes % (Manual) 4 % (1-10) Eosinophils % (Manual) 1 % (0-3) Basophils % (Manual) 0 % (0-2) Band Neutrophils 6 % (0-8) Platelet Estimate Decreased L Platelet Morphology Normal Polychromasia 1+ Sodium Level 132 MMOL/L (136-145) L Potassium Level 3.6 MMOL/L (3.5-5.1) Chloride Level 97 MMOL/L (98-107) L Carbon Dioxide Level 31 MMOL/L (21-32) Anion Gap 4 mmol/L (5-15) L Blood Urea Nitrogen 8 mg/dL (7-18) Creatinine 0.5 MG/DL (0.55-1.30) L Estimat Glomerular Filtration Rate > 60 mL/min (>60) Glucose Level 140 MG/DL (74-106) H Hemoglobin A1c 7.4 % (4.3-6.0) H Osmolality 273 mOsm/kg (297-317) L Uric Acid 2.4 MG/DL (2.6-7.2) L Calcium Level 7.9 MG/DL (8.5-10.1) L Phosphorus Level 2.5 MG/DL (2.5-4.9) Magnesium Level 1.6 MG/DL (1.8-2.4) L Iron Level 26 ug/dL (50-175) L Total Iron Binding Capacity 96 ug/dL (250-450) L Percent Iron Saturation 27 % (15-50) Unsaturated Iron Binding 70 ug/dL (112-346) L Ferritin 1105 NG/ML (8-388) H Total Bilirubin 0.4 MG/DL (0.2-1.0) Gamma Glutamyl Transpeptidase 23 U/L (5-85) Aspartate Amino Transf (AST/SGOT) 23 U/L (15-37) Alanine Aminotransferase (ALT/SGPT) 20 U/L (12-78) Alkaline Phosphatase 54 U/L (46-116) Total Creatine Kinase 61 U/L (26-308) C-Reactive Protein, Quantitative 16.2 mg/dL (0.00-0.90) H Pro-B-Type Natriuretic Peptide 1221 pg/mL (0-125) H Total Protein 5.6 G/DL (6.4-8.2) L Albumin 1.6 G/DL (3.4-5.0) L Globulin 4.0 g/dL Albumin/Globulin Ratio 0.4 (1.0-2.7) L Triglycerides Level 89 MG/DL (30-150) Cholesterol Level 90 MG/DL (< 200) LDL Cholesterol 60 mg/dL (<100) HDL Cholesterol 24 MG/DL (40-60) L Cholesterol/HDL Ratio 3.8 (3.3-4.4) Vitamin B12 Level > 2000 PG/ML (193-986) H Folate 9.9 NG/ML (8.6-58.9) Thyroid Stimulating Hormone (TSH) 1.939 uiU/mL (0.358-3.740) Cortisol AM Sample 14.1 UG/DL Vancomycin Level Trough 14.9 ug/mL (5.0-12.0) H General: well developed, well nourished Head: normocophalic Neck: no rigidity EENT: benign Neurologic Exam Mental Status: other - REmains obtunded with intermittent eye opening and preferential gaze to the left - w/d x 4 PERLL - visual joe unable to be obtained but partial hemianopia also suspected on the right side. Speech: other Cranial Nerve II: other Cranial Nerves III, IV, : PERRLA, EOMI, pupils Cranial Nerve VII: other - Some baseline facial asymmetry - due to previous infarct Cranial Nerve IX: normal palate elevation Cranial Nerve XI: SCM symmetric Motor System: normal muscle tone Sensory: normal pinprick, normal light touch, other - Some sensory loss on right side but not completely - requiring increased intensity of stimuli to be felt though. Deep Tendon Reflexes: 2+ bicep (L), 2+ bicep (R), 2+ tricep (L), 2+ tricep (R) , 2+ brachioradialis (L), 2+ brachioradialis (R), 2+ knee (L), 2+ knee (R), 2+ ankle (L), 2+ ankle (R) Stance: normal Gait: stable, normal regular, heel + toe gait Objective Awake and alert now but not following commands and non verbal- only making sounds Localizing on left side/ withdrawal only on right side . Impression/Recommendations Problems: (1) Acute encephalopathy Assessment & Plan: Q4 Hour Neuro OBs (2) acute toxic encephalopathy Assessment & Plan: Frequent stimulation of patient Q 4 hour neuro obs (3) Altered level of consciousness Assessment & Plan: PT/ OT Eval Na 135-145 OOB to chair as soon as able. Abx as per ID team Maintain normothermia with Tylenol / coolling blanket as need. MRI Brain w/wo contrast EEG as outpatient (4) Sepsis Assessment & Plan: Treat with IV abx as per ID (5) Brain tumor Assessment & Plan: MRI Brain w/ Contrast for investigation of recurrent primary tumor . CT taken in September did not demonstrate mass effect but also not the most sensitive test for detecting intraparenchymal masses. MRI 10/12/18 Encephalomalacia of the left anterior temporal lobe and adjacent frontal and parietal opercula; reportedly, this was for resection of an oligodendroglioma. No contrast enhancement to suggest recurrent tumor is evident currently. There is evidence of old peripheral hemorrhage, presumably related to the prior surgery. 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 MRI Brain w/wo for investigation of new CVA vs Mass (7) Diabetes mellitus Assessment & Plan: Normoglycemia with ISS (8) Hypertension Assessment & Plan: Maintain SBP<140 with antiHTN meds. 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 No contrast enhancement to suggest recurrent tumor is evident currently. There is evidence of old peripheral hemorrhage, presumably related to the prior surgery. 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 Now on 500mg BID - Will monitor for seizure activity - Renewed Q4 hour neuro obs DR. JIMENEZ will discuss MRI and managment with patient's neuro-oncologist Dr. Naldo Wiseman at [facility] Vidya Sun N.P. Oct 19, 2018 21:27
[2018-10-20] VITALS: BP 120/77
[2018-10-20] MEDS: Piperacillin/Tazobactam 3.375 GM in NS 110 ML IVPB SCH ×3 (01:29→16:21)
[2018-10-20] MEDS: D5NS 1,000 ML IV SCH (01:29)
[2018-10-20] MEDS: NovoLOG Insulin Flexpen SUBQ SCH ×4 (01:30→19:05)
[2018-10-20 04:00] VITALS: BP 109/74
[2018-10-20] MEDS: Vancomycin 750mg/NS 275ml IVPB SCH ×4 (05:44→14:19)
--- NOTE | 2018-10-20 06:23 | General Progress Note ---
Assessment/Plan Problem List: (1) Brain tumor ICD Codes: D49.6 - Neoplasm of unspecified behavior of brain SNOMED: 231245577 (2) Altered level of consciousness ICD Codes: R40.4 - Transient alteration of awareness SNOMED: 6216974 (3) Diabetes mellitus ICD Codes: E11.9 - Type 2 diabetes mellitus without complications SNOMED: 29676011 (4) Hypertension ICD Codes: I10 - Essential (primary) hypertension SNOMED: 03377326 Status: stable, not improved Assessment/Plan: no need for basal insulin continue NISS every 6 hours Subjective ROS Limited/Unobtainable: Yes Allergies: Coded Allergies: No Known Allergies (Unverified , 09/27/18) Subjective events noted Item Value Date Time Bedside Blood Glucose 171 mg/dl H 10/20/18 0546 Bedside Blood Glucose 177 mg/dl H 10/20/18 0130 Bedside Blood Glucose 170 mg/dl H 10/19/18 1845 Bedside Blood Glucose 143 mg/dl H 10/19/18 1205 Objective Last 24 Hour Vital Signs Date Time Temp Pulse Resp B/P (MAP) Pulse Ox O2 Delivery O2 Flow Rate FiO2 10/20/18 00:00 98.3 100 17 120/77 (91) 99 10/19/18 21:00 106 105/69 10/19/18 21:00 Venturi Mask 10.0 Venturi Mask 10.0 10/19/18 20:10 Venturi Mask 10.0 40 10/19/18 20:10 97 Venturi Mask 10.0 40 10/19/18 20:00 98.3 106 18 105/69 (81) 99 10/19/18 16:17 99.3 112 18 100/60 (73) 97 10/19/18 12:09 98.9 103 18 136/84 (101) 98 10/19/18 10:52 112 10/19/18 09:00 100 130/79 10/19/18 09:00 Room Air Room Air 10/19/18 08:12 Nasal Cannula 2.0 28 10/19/18 08:11 96 Nasal Cannula 2.0 28 10/19/18 08:00 96.8 100 130/79 (96) Intake and Output 10/19/18 10/20/18 19:00 07:00 Intake Total 1145 ml 621.666 ml Output Total 750 ml Balance 1145 ml -128.334 ml Intake Oral 820 ml IV Total 325 ml 621.666 ml Output Urine Total 750 ml # Voids 7 # Bowel Movements 2 Height (Feet): 5 Height (Inches): 7.00 Weight (Pounds): 148 General Appearance: no apparent distress Neck: normal alignment Cardiovascular: normal rate Respiratory/Chest: decreased breath sounds Abdomen: normal bowel sounds Objective Current Medications Medications (Trade) Dose Ordered Sig/Chace Route PRN Reason Start Time Stop Time Status Last Admin Dose Admin Acetaminophen (Tylenol) 650 mg Q4H PRN ORAL T>100.5 10/13/18 16:30 11/09/18 16:29 Carvedilol (Coreg) 12.5 mg EVERY 12 HOURS NG 10/13/18 21:00 11/12/18 08:59 10/16/18 08:33 Dexamethasone (Decadron) 4 mg EVERY 6 HOURS NG 10/19/18 12:00 11/12/18 08:59 Dextrose (Dextrose 50%) 25 ml Q30M PRN IV Hypoglycemia 10/14/18 13:30 11/13/18 13:29 Dextrose (Dextrose 50%) 50 ml Q30M PRN IV Hypoglycemia 10/14/18 13:30 11/13/18 13:29 Dextrose/Sodium Chloride 1,000 ml @ 50 mls/hr Q20H IV 10/18/18 18:30 11/17/18 18:29 10/20/18 01:29 Digoxin (Lanoxin) 0.25 mg DAILY ORAL 10/20/18 09:00 11/19/18 08:59 Furosemide (Lasix) 10 mg EVERY 8 HOURS IV 10/19/18 14:00 11/18/18 13:59 10/20/18 05:44 Heparin Sodium (Porcine) (Heparin 5000 units/ml) 5,000 units EVERY 12 HOURS SUBQ 10/13/18 21:00 11/09/18 20:59 10/19/18 23:30 Insulin Aspart (NovoLOG) EVERY 6 HOURS SUBQ 10/14/18 18:00 11/09/18 16:29 10/20/18 05:46 Lorazepam (Ativan 2mg/ml 1ml) 1 mg Q2H PRN IV For Anxiety 10/16/18 16:22 10/23/18 16:21 Ondansetron HCl (Zofran) 4 mg Q6H PRN IVP Nausea & Vomiting 10/13/18 16:30 11/09/18 16:29 Pantoprazole (Protonix) 40 mg EVERY 12 HOURS IVP 10/18/18 21:00 11/17/18 20:59 10/19/18 10:44 Piperacillin Sod/ Tazobactam Sod 3.375 gm/Sodium Chloride 110 ml @ 27.5 mls/hr EVERY 8 HOURS IVPB 10/19/18 14:00 10/24/18 13:59 10/20/18 01:29 Polyethylene Glycol (Miralax) 17 gm DAILYPRN PRN ORAL Constipation 10/13/18 16:30 11/12/18 16:29 Promethazine HCl/ Codeine (Phenergan with Codeine) 5 ml Q4H PRN ORAL For Cough 10/13/18 16:30 11/09/18 16:29 Vancomycin HCl (Vanco rx to dose) 1 ea DAILY PRN MISC . 10/14/18 09:00 11/09/18 13:29 Vancomycin HCl 750 mg/Sodium Chloride 275 ml @ 183.333 mls/hr Q8H IVPB 10/18/18 06:00 10/23/18 05:59 10/20/18 05:44 Richard Lugo MD Oct 20, 2018 06:23
[2018-10-20 07:05] LABS: HEMATOCRIT 29.1 % (42.0-52.0); HEMOGLOBIN 10.4 G/DL (14.2-18.0); MEAN CORPUSCULAR VOLUME 88 FL (80-99); PLATELET COUNT 149 K/UL (150-450); RED BLOOD COUNT 3.31 M/UL (4.70-6.10); RED CELL DISTRIBUTION WIDTH 12.6 % (11.6-14.8); WHITE BLOOD COUNT 5.2 K/UL (4.8-10.8)
[2018-10-20 07:06] LABS: ALANINE AMINOTRANSFERASE 18 U/L (12-78); ALBUMIN 1.7 G/DL (3.4-5.0); ALBUMIN/GLOBULIN RATIO 0.4 (1.0-2.7); ALKALINE PHOSPHATASE 62 U/L (46-116); ANION GAP 3 mmol/L (5-15); ASPARTATE AMINO TRANSFERASE 20 U/L (15-37); BILIRUBIN,TOTAL 0.6 MG/DL (0.2-1.0); BLOOD UREA NITROGEN 8 mg/dL (7-18); CALCIUM 8.1 MG/DL (8.5-10.1); CARBON DIOXIDE 33 MMOL/L (21-32); CHLORIDE 99 MMOL/L (98-107); CREATININE 0.5 MG/DL (0.55-1.30); PHOSPHORUS 2.9 MG/DL (2.5-4.9); POTASSIUM 3.2 MMOL/L (3.5-5.1); SODIUM 135 MMOL/L (136-145)
[2018-10-20 08:00] VITALS: BP 105/70
[2018-10-20] MEDS: Carvedilol 12.5mg tab NG SCH ×2 (09:00→21:00)
[2018-10-20] MEDS: Pantoprazole Inj IVP SCH ×2 (10:04→21:19)
[2018-10-20] MEDS: Heparin 5000 units/ml inj SUBQ SCH ×2 (10:09→21:21)
[2018-10-20 12:00] VITALS: BP 129/68
--- NOTE | 2018-10-20 12:47 | Pulmonology Progress Note ---
Assessment/Plan Problems: (1) acute toxic encephalopathy (2) Sepsis (3) Brain tumor (4) Sacral decubitus ulcer (5) Hypertension (6) Diabetes mellitus (7) History of CVA (cerebrovascular accident) Assessment/Plan talked to pts son, Juan, he needs to talk to his brother, Denis Garcia [phone] to make a decision about Gtube ON NG tube feeding MRI of brain done Encephalomalacia of the left anterior temporal lobe and adjacent frontal and parietal opercula; f/u cultures continue abx sliding scale monitor BP Subjective ROS Limited/Unobtainable: Yes Constitutional: Reports: no symptoms HEENT: Repors: no symptoms Allergies: Coded Allergies: No Known Allergies (Unverified , 09/27/18) Objective Last 24 Hour Vital Signs Date Time Temp Pulse Resp B/P (MAP) Pulse Ox O2 Delivery O2 Flow Rate FiO2 10/20/18 09:00 Room Air Room Air 10/20/18 08:00 98.3 105 16 105/70 (82) 99 10/20/18 04:00 97.7 105 17 109/74 (86) 99 10/20/18 00:00 98.3 100 17 120/77 (91) 99 10/19/18 21:00 106 105/69 10/19/18 21:00 Venturi Mask 10.0 Venturi Mask 10.0 10/19/18 20:10 Venturi Mask 10.0 40 10/19/18 20:10 97 Venturi Mask 10.0 40 10/19/18 20:00 98.3 106 18 105/69 (81) 99 10/19/18 16:17 99.3 112 18 100/60 (73) 97 Intake and Output 10/19/18 10/20/18 18:59 06:59 Intake Total 1095 ml 1059.999 ml Output Total 2750 ml Balance 1095 ml -1690.001 ml Intake Oral 820 ml IV Total 275 ml 1059.999 ml Output Urine Total 2750 ml # Voids 7 # Bowel Movements 2 Objective General Appearance: WD/WN HEENT: normocephalic, atraumatic Respiratory/Chest: chest wall non-tender, normal breath sounds Cardiovascular: normal peripheral pulses, normal rate Abdomen: normal bowel sounds, soft, non tender, no organomegaly, non distended Extremities: no cyanosis Skin: no rash, no lesions, no ulcers Laboratory Tests 10/20/18 06:15: White Blood Count 5.2, Red Blood Count 3.31L, Hemoglobin 10.4L, Hematocrit 29.1L , Mean Corpuscular Volume 88, Mean Corpuscular Hemoglobin 31.3H, Mean Corpuscular Hemoglobin Concent 35.7, Red Cell Distribution Width 12.6, Platelet Count 149L, Mean Platelet Volume 5.5L, Neutrophils (%) (Auto) , Lymphocytes (%) (Auto) , Monocytes (%) (Auto) , Eosinophils (%) (Auto) , Basophils (%) (Auto) , Differential Total Cells Counted 100, Neutrophils % (Manual) 85H, Lymphocytes % (Manual) 5L, Monocytes % (Manual) 8, Eosinophils % (Manual) 0, Basophils % ( Manual) 0, Band Neutrophils 2, Platelet Estimate DecreasedL, Platelet Morphology Normal, Hypochromasia 1+, Anisocytosis 1+, Spherocytes 2+, Sodium Level 135L, Potassium Level 3.2L, Chloride Level 99, Carbon Dioxide Level 33H, Anion Gap 3L, Blood Urea Nitrogen 8, Creatinine 0.5L, Estimat Glomerular Filtration Rate > 60, Glucose Level 170H, Uric Acid 1.7L, Calcium Level 8.1L, Phosphorus Level 2.9, Magnesium Level 1.5L, Total Bilirubin 0.6, Aspartate Amino Transf (AST/SGOT) 20, Alanine Aminotransferase (ALT/SGPT) 18, Alkaline Phosphatase 62, Total Protein 6.0L, Albumin 1.7L, Globulin 4.3, Albumin/ Globulin Ratio 0.4L Current Medications Medications (Trade) Dose Ordered Sig/Chace Route PRN Reason Start Time Stop Time Status Last Admin Dose Admin Acetaminophen (Tylenol) 650 mg Q4H PRN ORAL T>100.5 10/13/18 16:30 11/09/18 16:29 Carvedilol (Coreg) 12.5 mg EVERY 12 HOURS NG 10/13/18 21:00 11/12/18 08:59 10/16/18 08:33 Dexamethasone (Decadron) 4 mg EVERY 6 HOURS NG 10/19/18 12:00 11/12/18 08:59 Dextrose (Dextrose 50%) 25 ml Q30M PRN IV Hypoglycemia 10/14/18 13:30 11/13/18 13:29 Dextrose (Dextrose 50%) 50 ml Q30M PRN IV Hypoglycemia 10/14/18 13:30 11/13/18 13:29 Dextrose/Sodium Chloride 1,000 ml @ 50 mls/hr Q20H IV 10/18/18 18:30 11/17/18 18:29 10/20/18 01:29 Digoxin (Lanoxin) 0.25 mg DAILY ORAL 10/20/18 09:00 11/19/18 08:59 Furosemide (Lasix) 10 mg EVERY 8 HOURS IV 10/19/18 14:00 11/18/18 13:59 10/20/18 05:44 Heparin Sodium (Porcine) (Heparin 5000 units/ml) 5,000 units EVERY 12 HOURS SUBQ 10/13/18 21:00 11/09/18 20:59 10/20/18 10:09 Insulin Aspart (NovoLOG) EVERY 6 HOURS SUBQ 10/14/18 18:00 11/09/18 16:29 10/20/18 12:41 Lorazepam (Ativan 2mg/ml 1ml) 1 mg Q2H PRN IV For Anxiety 10/16/18 16:22 10/23/18 16:21 Magnesium Sulfate 100 ml @ 100 mls/hr Q1H IVPB 10/20/18 11:00 10/20/18 13:59 10/20/18 11:55 Ondansetron HCl (Zofran) 4 mg Q6H PRN IVP Nausea & Vomiting 10/13/18 16:30 11/09/18 16:29 Pantoprazole (Protonix) 40 mg EVERY 12 HOURS IVP 10/18/18 21:00 11/17/18 20:59 10/20/18 10:04 Piperacillin Sod/ Tazobactam Sod 3.375 gm/Sodium Chloride 110 ml @ 27.5 mls/hr EVERY 8 HOURS IVPB 10/19/18 14:00 10/24/18 13:59 10/20/18 07:30 Polyethylene Glycol (Miralax) 17 gm DAILYPRN PRN ORAL Constipation 10/13/18 16:30 11/12/18 16:29 Potassium Chloride 100 ml @ 100 mls/hr Q1HR IVPB 10/20/18 11:00 10/20/18 13:59 Promethazine HCl/ Codeine (Phenergan with Codeine) 5 ml Q4H PRN ORAL For Cough 10/13/18 16:30 11/09/18 16:29 Vancomycin HCl (Vanco rx to dose) 1 ea DAILY PRN MISC . 10/14/18 09:00 11/09/18 13:29 Vancomycin HCl 750 mg/Sodium Chloride 275 ml @ 183.333 mls/hr Q8H IVPB 10/18/18 06:00 10/23/18 05:59 10/20/18 05:44 Raul Feng MD Oct 20, 2018 12:47
--- NOTE | 2018-10-20 13:25 | GI Initial Consult Note ---
History of Present Illness General Date patient seen: Oct 20, 2018 Time patient seen: 13:12 Reason for Hospitalization: Altered Level of Consciousness Referring physician: Dr. Camacho Braun Reason for Consultation: PEG evaluation Present Illness HPI Patient present from nursing facility with altered mental status The timing of the change in status is unclear From review of medical records patient appears to be getting treated for acute psychosis encephalopathy with different medication Patient himself is nonverbal History of present illness remains limited secondary to that There was no reports of vomiting or diarrhea Review of medical records also reveals a recent brain tumor removal in June with radiation GI consulted for PEG evaluation. ROS limited, patient seen awake alert NAD with no active s/sx of N/V/D. Per ST report, patient has unable to participate in video swallow study. Currently receiving non oral feedings at this time. Labs reviewed, Hgb 10.4, K-3.2, OB negative. Unknown history of endoscopy and colonoscopy at this time. Home Meds Active Scripts Quetiapine Fumarate* (SEROQUEL*) 25 Mg Tablet, 25 MG ORAL Q12HR for 30 Days, TAB Prov:Raul Feng MD 10/01/18 Sitagliptin (Januvia) 50 Mg Tablet, 50 MG ORAL DAILY for 30 Days, TAB Prov:Raul Feng MD 10/01/18 Tamsulosin HCl (Flomax) 0.4 Mg Cap.er.24h, 0.4 MG ORAL BEDTIME for 30 Days, CAP Prov:Raul Feng MD 10/01/18 Lamotrigine* (LAMICTAL*) 25 Mg Tablet, 50 MG ORAL DAILY for 30 Days, TAB Prov:Raul Feng MD 10/01/18 Finasteride (FINASTERIDE) 5 Mg Tablet, 5 MG ORAL DAILY@2100 for 30 Days, TAB Prov:Raul Feng MD 10/01/18 Dexamethasone (Dexamethasone) 2 Mg Tablet, 4 MG ORAL DAILY for 30 Days, TAB Prov:Raul Feng MD 10/01/18 Carvedilol (Coreg) 25 Mg Tablet, 25 MG ORAL EVERY 12 HOURS for 30 Days, TAB Prov:Raul Feng MD 10/01/18 Reported Medications Polyethylene Glycol 3350* (MIRALAX*) 17 Gm Powd.pack, 17 GM ORAL DAILY, PACKET 10/10/18 Perampanel (Fycompa) 4 Mg Tablet, 4 MG PO DAILY, TAB 10/10/18 Dexamethasone* (DECADRON*) 2 Mg Tablet, 4 MG PO BID, TAB 10/10/18 Cholecalciferol (Vitamin D3)* (VITAMIN D*) 1,000 Unit Tablet, 34271 UNITS ORAL ONCE A WEEK, TAB 10/10/18 Carvedilol (Coreg) 12.5 Mg Tablet, 12.5 MG ORAL EVERY 12 HOURS, TAB 10/10/18 Acetaminophen* (ACETAMINOPHEN 325MG TABLET*) 325 Mg Tablet, 650 MG ORAL Q6H PRN for For Pain, TAB 10/10/18 Divalproex Sodium (DEPAKOTE) 125 Mg Tablet.dr, 1500 MG PO, TAB 09/27/18 Insulin Lispro (HUMALOG) 100 Unit/1 Ml Cartridge, 0 SUBQ, #1 UNITS 0 Refills 09/27/18 Polyethylene Glycol 3350* (MIRALAX*) 17 Gm Powd.pack, 17 GM ORAL DAILY, PACKET 09/27/18 Lacosamide (VIMPAT) 200 Mg Tablet, 200 MG PO BID, TAB 09/27/18 Temozolomide (Temozolomide) 5 Mg Capsule, 5 MG PO, CAP 09/27/18 Ranitidine Hcl* (ZANTAC*) 150 Mg Tablet, 150 MG ORAL DAILY, #30 TAB 0 Refills 09/27/18 Metformin Hcl (GLUCOPHAGE) 1,000 Mg Tablet, 1000 MG ORAL BID, TAB 09/27/18 Losartan Potassium (LOSARTAN POTASSIUM) 100 Mg Tablet, 25 MG ORAL DAILY, TAB 09/27/18 Docusate Sodium (DOCUSATE SODIUM) 100 Mg Tablet, 100 MG ORAL DAILY, #30 TAB 0 Refills 09/27/18 Divalproex Sodium (DIVALPROEX SODIUM) 500 Mg Tablet.dr, 1500 MG PO, TAB 09/27/18 Divalproex Sodium (DEPAKOTE) 125 Mg Tablet.dr, 500 MG PO, TAB 09/27/18 Cholecalciferol (Vitamin D3)* (VITAMIN D*) 1,000 Unit Tablet, 93170 UNITS ORAL QWEEK, TAB 09/27/18 Atorvastatin (Lipitor) 80 Mg Tablet, 80 MG ORAL BEDTIME, #30 TAB 0 Refills 09/27/18 Apixaban (ELIQUIS) 5 Mg Tablet, 5 MG PO BID, TAB 09/27/18 Med list reviewed/reconciled: Yes Allergies: Coded Allergies: No Known Allergies (Unverified , 09/27/18) Patient History Limited by: medical condition History Provided By: Patient, Medical Record PMH Narrative Limited by: medical condition Past Medical History: see triage record Pertinent Family History: unable to obtain Reviewed Nursing Documentation: PMH: Agreed; PSxH: Agreed Nursing Documentation-PMH Past Medical History: No History, Except For Hx Hypertension: Yes Hx Diabetes: Yes Hx Cancer: Yes - brain cancer Hx Gastrointestinal Problems: No Hx Neurological Problems: Yes - AMS, Brain tumor 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, expressive aphasia Hx Seizures: Yes Social History: Denies: smoking, alcohol use, drug use, other Review of Systems All Other Systems: negative except mentioned in HPI Physical Exam Vital Signs Date Time Temp Pulse Resp B/P (MAP) Pulse Ox O2 Delivery O2 Flow Rate FiO2 10/16/18 08:00 98.3 99 18 155/89 (111) 99 10/16/18 09:00 Venturi Mask 10.0 Venturi Mask 10.0 10/16/18 10:55 40 Sp02 EP Interpretation: reviewed, normal Labs Laboratory Tests Test 10/20/18 06:15 White Blood Count 5.2 K/UL (4.8-10.8) Red Blood Count 3.31 M/UL (4.70-6.10) L Hemoglobin 10.4 G/DL (14.2-18.0) L Hematocrit 29.1 % (42.0-52.0) L Mean Corpuscular Volume 88 FL (80-99) Mean Corpuscular Hemoglobin 31.3 PG (27.0-31.0) H Mean Corpuscular Hemoglobin Concent 35.7 G/DL (32.0-36.0) Red Cell Distribution Width 12.6 % (11.6-14.8) Platelet Count 149 K/UL (150-450) L Mean Platelet Volume 5.5 FL (6.5-10.1) L Neutrophils (%) (Auto) % (45.0-75.0) Lymphocytes (%) (Auto) % (20.0-45.0) Monocytes (%) (Auto) % (1.0-10.0) Eosinophils (%) (Auto) % (0.0-3.0) Basophils (%) (Auto) % (0.0-2.0) Differential Total Cells Counted 100 Neutrophils % (Manual) 85 % (45-75) H Lymphocytes % (Manual) 5 % (20-45) L Monocytes % (Manual) 8 % (1-10) Eosinophils % (Manual) 0 % (0-3) Basophils % (Manual) 0 % (0-2) Band Neutrophils 2 % (0-8) Platelet Estimate Decreased L Platelet Morphology Normal Hypochromasia 1+ Anisocytosis 1+ Spherocytes 2+ Sodium Level 135 MMOL/L (136-145) L Potassium Level 3.2 MMOL/L (3.5-5.1) L Chloride Level 99 MMOL/L (98-107) Carbon Dioxide Level 33 MMOL/L (21-32) H Anion Gap 3 mmol/L (5-15) L Blood Urea Nitrogen 8 mg/dL (7-18) Creatinine 0.5 MG/DL (0.55-1.30) L Estimat Glomerular Filtration Rate > 60 mL/min (>60) Glucose Level 170 MG/DL (74-106) H Uric Acid 1.7 MG/DL (2.6-7.2) L Calcium Level 8.1 MG/DL (8.5-10.1) L Phosphorus Level 2.9 MG/DL (2.5-4.9) Magnesium Level 1.5 MG/DL (1.8-2.4) L Total Bilirubin 0.6 MG/DL (0.2-1.0) Aspartate Amino Transf (AST/SGOT) 20 U/L (15-37) Alanine Aminotransferase (ALT/SGPT) 18 U/L (12-78) Alkaline Phosphatase 62 U/L (46-116) Total Protein 6.0 G/DL (6.4-8.2) L Albumin 1.7 G/DL (3.4-5.0) L Globulin 4.3 g/dL Albumin/Globulin Ratio 0.4 (1.0-2.7) L General Appearance: well appearing, no apparent distress, alert Head: normocephalic EENT: PERRL/EOMI, normal ENT inspection Neck: supple Respiratory: normal breath sounds, no respiratory distress Cardiovascular: normal rate Gastrointestinal: normal inspection, non tender, soft, normal bowel sounds, non -distended Rectal: deferred Genitourinary: deferred Musculoskeletal: normal inspection, back normal Neurologic: alert, responsive Skin: normal inspection, normal color, no rash, warm/dry, palpation normal, well hydrated Current Medications Current Medications Medications (Trade) Dose Ordered Sig/Chace Route PRN Reason Start Time Stop Time Status Last Admin Dose Admin Acetaminophen (Tylenol) 650 mg Q4H PRN ORAL T>100.5 10/13/18 16:30 11/09/18 16:29 Carvedilol (Coreg) 12.5 mg EVERY 12 HOURS NG 10/13/18 21:00 11/12/18 08:59 10/16/18 08:33 Dexamethasone (Decadron) 4 mg EVERY 6 HOURS NG 10/19/18 12:00 11/12/18 08:59 Dextrose (Dextrose 50%) 25 ml Q30M PRN IV Hypoglycemia 10/14/18 13:30 11/13/18 13:29 Dextrose (Dextrose 50%) 50 ml Q30M PRN IV Hypoglycemia 10/14/18 13:30 11/13/18 13:29 Dextrose/Sodium Chloride 1,000 ml @ 50 mls/hr Q20H IV 10/18/18 18:30 11/17/18 18:29 10/20/18 01:29 Digoxin (Lanoxin) 0.25 mg DAILY ORAL 10/20/18 09:00 11/19/18 08:59 Furosemide (Lasix) 10 mg EVERY 8 HOURS IV 10/19/18 14:00 11/18/18 13:59 10/20/18 05:44 Heparin Sodium (Porcine) (Heparin 5000 units/ml) 5,000 units EVERY 12 HOURS SUBQ 10/13/18 21:00 11/09/18 20:59 10/20/18 10:09 Insulin Aspart (NovoLOG) EVERY 6 HOURS SUBQ 10/14/18 18:00 11/09/18 16:29 10/20/18 12:41 Lorazepam (Ativan 2mg/ml 1ml) 1 mg Q2H PRN IV For Anxiety 10/16/18 16:22 10/23/18 16:21 Magnesium Sulfate 100 ml @ 100 mls/hr Q1H IVPB 10/20/18 11:00 10/20/18 13:59 10/20/18 11:55 Ondansetron HCl (Zofran) 4 mg Q6H PRN IVP Nausea & Vomiting 10/13/18 16:30 11/09/18 16:29 Pantoprazole (Protonix) 40 mg EVERY 12 HOURS IVP 10/18/18 21:00 11/17/18 20:59 10/20/18 10:04 Piperacillin Sod/ Tazobactam Sod 3.375 gm/Sodium Chloride 110 ml @ 27.5 mls/hr EVERY 8 HOURS IVPB 10/19/18 14:00 10/24/18 13:59 10/20/18 07:30 Polyethylene Glycol (Miralax) 17 gm DAILYPRN PRN ORAL Constipation 10/13/18 16:30 11/12/18 16:29 Potassium Chloride 100 ml @ 100 mls/hr Q1HR IVPB 10/20/18 11:00 10/20/18 13:59 Promethazine HCl/ Codeine (Phenergan with Codeine) 5 ml Q4H PRN ORAL For Cough 10/13/18 16:30 11/09/18 16:29 Vancomycin HCl (Vanco rx to dose) 1 ea DAILY PRN MISC . 10/14/18 09:00 11/09/18 13:29 Vancomycin HCl 750 mg/Sodium Chloride 275 ml @ 183.333 mls/hr Q8H IVPB 10/18/18 06:00 10/23/18 05:59 10/20/18 05:44 GI: Plan Problems: (1) PEG (percutaneous endoscopic gastrostomy) adjustment/replacement/removal (2) Dysphagia (3) Severe malnutrition (4) Anemia Plan PEG on hold, daughter refuses at this time. patient needs ST follow up, possible video swallow study. cont non-oral feedings prn transfusions ppi GTFs per RD follow labs Discussed with Dr. Burnett. Thank you for this patient referral, we will follow. The patient was seen and examined at bedside and all new and available data was reviewed in the patients chart. I agree with the above findings, impression and plan. (Patient seen earlier today. Signature stamp does not reflect patient encounter time.). - MD Vero Blevins,[facility] PROCEDURE ANALYST Oct 20, 2018 13:24
--- NOTE | 2018-10-20 14:04 | Neurology Progress Note ---
Interim History Interim History ROS Limited/Unobtainable: Yes Complaints: Seizure/ AMS Events: THIS VISIT WAS CONDUCTED ON OCTOBER 19, 2018. Objective Physical Exam Last Vital Signs Date Time Temp Pulse Resp B/P (MAP) Pulse Ox O2 Delivery O2 Flow Rate FiO2 10/20/18 09:00 Room Air Room Air 10/20/18 08:00 98.3 105 16 105/70 (82) 99 10/19/18 21:00 10.0 10.0 10/19/18 20:10 40 Laboratory Tests Test 10/20/18 06:15 White Blood Count 5.2 K/UL (4.8-10.8) Red Blood Count 3.31 M/UL (4.70-6.10) L Hemoglobin 10.4 G/DL (14.2-18.0) L Hematocrit 29.1 % (42.0-52.0) L Mean Corpuscular Volume 88 FL (80-99) Mean Corpuscular Hemoglobin 31.3 PG (27.0-31.0) H Mean Corpuscular Hemoglobin Concent 35.7 G/DL (32.0-36.0) Red Cell Distribution Width 12.6 % (11.6-14.8) Platelet Count 149 K/UL (150-450) L Mean Platelet Volume 5.5 FL (6.5-10.1) L Neutrophils (%) (Auto) % (45.0-75.0) Lymphocytes (%) (Auto) % (20.0-45.0) Monocytes (%) (Auto) % (1.0-10.0) Eosinophils (%) (Auto) % (0.0-3.0) Basophils (%) (Auto) % (0.0-2.0) Differential Total Cells Counted 100 Neutrophils % (Manual) 85 % (45-75) H Lymphocytes % (Manual) 5 % (20-45) L Monocytes % (Manual) 8 % (1-10) Eosinophils % (Manual) 0 % (0-3) Basophils % (Manual) 0 % (0-2) Band Neutrophils 2 % (0-8) Platelet Estimate Decreased L Platelet Morphology Normal Hypochromasia 1+ Anisocytosis 1+ Spherocytes 2+ Sodium Level 135 MMOL/L (136-145) L Potassium Level 3.2 MMOL/L (3.5-5.1) L Chloride Level 99 MMOL/L (98-107) Carbon Dioxide Level 33 MMOL/L (21-32) H Anion Gap 3 mmol/L (5-15) L Blood Urea Nitrogen 8 mg/dL (7-18) Creatinine 0.5 MG/DL (0.55-1.30) L Estimat Glomerular Filtration Rate > 60 mL/min (>60) Glucose Level 170 MG/DL (74-106) H Uric Acid 1.7 MG/DL (2.6-7.2) L Calcium Level 8.1 MG/DL (8.5-10.1) L Phosphorus Level 2.9 MG/DL (2.5-4.9) Magnesium Level 1.5 MG/DL (1.8-2.4) L Total Bilirubin 0.6 MG/DL (0.2-1.0) Aspartate Amino Transf (AST/SGOT) 20 U/L (15-37) Alanine Aminotransferase (ALT/SGPT) 18 U/L (12-78) Alkaline Phosphatase 62 U/L (46-116) Total Protein 6.0 G/DL (6.4-8.2) L Albumin 1.7 G/DL (3.4-5.0) L Globulin 4.3 g/dL Albumin/Globulin Ratio 0.4 (1.0-2.7) L General: well developed, well nourished Head: normocophalic Neck: no rigidity EENT: benign Neurologic Exam Mental Status: other - REmains obtunded with intermittent eye opening and preferential gaze to the left - w/d x 4 PERLL - visual joe unable to be obtained but partial hemianopia also suspected on the right side. Speech: other Cranial Nerve II: other Cranial Nerves III, IV, : PERRLA, EOMI, pupils Cranial Nerve VII: other - Some baseline facial asymmetry - due to previous infarct Cranial Nerve IX: normal palate elevation Cranial Nerve XI: SCM symmetric Motor System: normal muscle tone Sensory: normal pinprick, normal light touch, other - Some sensory loss on right side but not completely - requiring increased intensity of stimuli to be felt though. Deep Tendon Reflexes: 2+ bicep (L), 2+ bicep (R), 2+ tricep (L), 2+ tricep (R) , 2+ brachioradialis (L), 2+ brachioradialis (R), 2+ knee (L), 2+ knee (R), 2+ ankle (L), 2+ ankle (R) Stance: normal Gait: stable, normal regular, heel + toe gait Objective Awake and alert now but not following commands and non verbal- only making sounds Localizing on left side/ withdrawal only on right side . Impression/Recommendations Problems: (1) Acute encephalopathy Assessment & Plan: Q4 Hour Neuro OBs (2) acute toxic encephalopathy Assessment & Plan: Frequent stimulation of patient Q 4 hour neuro obs (3) Altered level of consciousness Assessment & Plan: PT/ OT Eval Na 135-145 OOB to chair as soon as able. Abx as per ID team Maintain normothermia with Tylenol / coolling blanket as need. MRI Brain w/wo contrast EEG as outpatient (4) Sepsis Assessment & Plan: Treat with IV abx as per ID (5) Brain tumor Assessment & Plan: MRI Brain w/ Contrast for investigation of recurrent primary tumor . CT taken in September did not demonstrate mass effect but also not the most sensitive test for detecting intraparenchymal masses. MRI 10/12/18 Encephalomalacia of the left anterior temporal lobe and adjacent frontal and parietal opercula; reportedly, this was for resection of an oligodendroglioma. No contrast enhancement to suggest recurrent tumor is evident currently. There is evidence of old peripheral hemorrhage, presumably related to the prior surgery. 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 MRI Brain w/wo for investigation of new CVA vs Mass (7) Diabetes mellitus Assessment & Plan: Normoglycemia with ISS (8) Hypertension Assessment & Plan: Maintain SBP<140 with antiHTN meds. 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 No contrast enhancement to suggest recurrent tumor is evident currently. There is evidence of old peripheral hemorrhage, presumably related to the prior surgery. 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 Now on 500mg BID - Will monitor for seizure activity - Renewed Q4 hour neuro obs DR. JIMENEZ will discuss MRI and managment with patient's neuro-oncologist Dr. Naldo Wiseman at [facility] Vidya Sun N.P. Oct 20, 2018 14:04
[2018-10-20] MEDS ORDERED: Dexamethasone 4mg/ml vial IVP SCH (14:30)
[2018-10-20] MEDS: Dexamethasone 4mg/ml vial IVP SCH ×2 (14:43→21:18)
--- NOTE | 2018-10-20 14:53 | Nephrology Progress Note ---
Assessment/Plan Problem List: (1) Hyponatremia (2) Cardiomyopathy (3) Diabetes mellitus (4) Encephalopathy (5) Anemia Assessment HypoNatremia, ? Etiology further comments after intial blood and urine test results Cardiomyopathy with Ej Fx 25% HypoAlbuminemia Anemia Previously low Phos and Mag UTI Proteinuria other significant conditions: Altered mental status. Brain cancer. Seizure disorder. Diabetes type 2. History of cerebrovascular accident. Right hemiparesis. Hypertension. Coronary artery disease. Expressive aphasia. Hypercholesterolemia. Sepsis-Staph Epidermidis and Staph Hominis Sacral decubitus ulcer Plan Plan: at this time patient has no NGT due ST Will change PO meds to IV Low Na downs ordered, likely related to low Albumin and cardiomyopathy trial 3% and Lasix start digoxin Per orders due PEG Subjective ROS Limited/Unobtainable: No Constitutional: Reports: malaise, weakness Objective Objective Last 24 Hour Vital Signs Date Time Temp Pulse Resp B/P (MAP) Pulse Ox O2 Delivery O2 Flow Rate FiO2 10/20/18 09:00 105 10/20/18 09:00 Room Air Room Air 10/20/18 08:00 98.3 105 16 105/70 (82) 99 10/20/18 04:00 97.7 105 17 109/74 (86) 99 10/20/18 00:00 98.3 100 17 120/77 (91) 99 10/19/18 21:00 106 105/69 10/19/18 21:00 Venturi Mask 10.0 Venturi Mask 10.0 10/19/18 20:10 Venturi Mask 10.0 40 10/19/18 20:10 97 Venturi Mask 10.0 40 10/19/18 20:00 98.3 106 18 105/69 (81) 99 10/19/18 16:17 99.3 112 18 100/60 (73) 97 Intake and Output 10/19/18 10/20/18 19:00 07:00 Intake Total 1145 ml 1009.999 ml Output Total 2750 ml Balance 1145 ml -1740.001 ml Intake Oral 820 ml IV Total 325 ml 1009.999 ml Output Urine Total 2750 ml # Voids 7 # Bowel Movements 2 Laboratory Tests 10/20/18 06:15: White Blood Count 5.2, Red Blood Count 3.31L, Hemoglobin 10.4L, Hematocrit 29.1L , Mean Corpuscular Volume 88, Mean Corpuscular Hemoglobin 31.3H, Mean Corpuscular Hemoglobin Concent 35.7, Red Cell Distribution Width 12.6, Platelet Count 149L, Mean Platelet Volume 5.5L, Neutrophils (%) (Auto) , Lymphocytes (%) (Auto) , Monocytes (%) (Auto) , Eosinophils (%) (Auto) , Basophils (%) (Auto) , Differential Total Cells Counted 100, Neutrophils % (Manual) 85H, Lymphocytes % (Manual) 5L, Monocytes % (Manual) 8, Eosinophils % (Manual) 0, Basophils % ( Manual) 0, Band Neutrophils 2, Platelet Estimate DecreasedL, Platelet Morphology Normal, Hypochromasia 1+, Anisocytosis 1+, Spherocytes 2+, Sodium Level 135L, Potassium Level 3.2L, Chloride Level 99, Carbon Dioxide Level 33H, Anion Gap 3L, Blood Urea Nitrogen 8, Creatinine 0.5L, Estimat Glomerular Filtration Rate > 60, Glucose Level 170H, Uric Acid 1.7L, Calcium Level 8.1L, Phosphorus Level 2.9, Magnesium Level 1.5L, Total Bilirubin 0.6, Aspartate Amino Transf (AST/SGOT) 20, Alanine Aminotransferase (ALT/SGPT) 18, Alkaline Phosphatase 62, Total Protein 6.0L, Albumin 1.7L, Globulin 4.3, Albumin/ Globulin Ratio 0.4L Height (Feet): 5 Height (Inches): 7.00 Weight (Pounds): 148 Cardiovascular: tachycardia Respiratory/Chest: decreased breath sounds Abdomen: distended Juan Hopkins MD Oct 20, 2018 14:53
[2018-10-20] MEDS ORDERED: NS 500ML ONE (14:58)
[2018-10-20] MEDS ORDERED: Tubing IV Secondary IV ONE (14:58)
[2018-10-20] MEDS ORDERED: D5 1/2NS 1000ml IV ONE ×2 (14:58)
[2018-10-20 16:00] VITALS: BP 122/75
--- NOTE | 2018-10-20 17:51 | Internal Med Progress Note ---
Subjective Date of Service: Oct 20, 2018 Physician Name Jesus Kidd Attending Physician Camacho Braun MD Current Medications Medications (Trade) Dose Ordered Sig/Chace Route PRN Reason Start Time Stop Time Status Last Admin Dose Admin Acetaminophen (Tylenol) 650 mg Q4H PRN ORAL T>100.5 10/13/18 16:30 11/09/18 16:29 Carvedilol (Coreg) 12.5 mg EVERY 12 HOURS NG 10/13/18 21:00 11/12/18 08:59 10/16/18 08:33 Dexamethasone Sodium Phosphate (Decadron 4mg/ml vial) 4 mg Q6H IVP 10/20/18 14:30 11/19/18 14:29 10/20/18 14:43 Dextrose (Dextrose 50%) 25 ml Q30M PRN IV Hypoglycemia 10/14/18 13:30 11/13/18 13:29 Dextrose (Dextrose 50%) 50 ml Q30M PRN IV Hypoglycemia 10/14/18 13:30 11/13/18 13:29 Dextrose/Sodium Chloride 1,000 ml @ 50 mls/hr Q20H IV 10/18/18 18:30 11/17/18 18:29 10/20/18 01:29 Digoxin (Lanoxin) 0.25 mg DAILY ORAL 10/20/18 09:00 11/19/18 08:59 Heparin Sodium (Porcine) (Heparin 5000 units/ml) 5,000 units EVERY 12 HOURS SUBQ 10/13/18 21:00 11/09/18 20:59 10/20/18 10:09 Insulin Aspart (NovoLOG) EVERY 6 HOURS SUBQ 10/14/18 18:00 11/09/18 16:29 10/20/18 12:41 Lorazepam (Ativan 2mg/ml 1ml) 1 mg Q2H PRN IV For Anxiety 10/16/18 16:22 10/23/18 16:21 Ondansetron HCl (Zofran) 4 mg Q6H PRN IVP Nausea & Vomiting 10/13/18 16:30 11/09/18 16:29 Pantoprazole (Protonix) 40 mg EVERY 12 HOURS IVP 10/18/18 21:00 11/17/18 20:59 10/20/18 10:04 Piperacillin Sod/ Tazobactam Sod 3.375 gm/Sodium Chloride 110 ml @ 27.5 mls/hr EVERY 8 HOURS IVPB 10/19/18 14:00 10/24/18 13:59 10/20/18 16:21 Polyethylene Glycol (Miralax) 17 gm DAILYPRN PRN ORAL Constipation 10/13/18 16:30 11/12/18 16:29 Potassium Chloride 100 ml @ 100 mls/hr Q1H IVPB 10/20/18 17:15 10/20/18 20:14 10/20/18 17:37 Promethazine HCl/ Codeine (Phenergan with Codeine) 5 ml Q4H PRN ORAL For Cough 10/13/18 16:30 11/09/18 16:29 Vancomycin HCl (Vanco rx to dose) 1 ea DAILY PRN MISC . 10/14/18 09:00 11/09/18 13:29 Vancomycin HCl 750 mg/Sodium Chloride 275 ml @ 183.333 mls/hr Q8H IVPB 10/18/18 06:00 10/23/18 05:59 10/20/18 14:19 Allergies: Coded Allergies: No Known Allergies (Unverified , 09/27/18) ROS Limited/Unobtainable: Yes Subjective 68 YO M with history of brain cancer admitted with altered mental status. Now UTI and sepsis. On venturi mask. Cover for Int Patel-Dr Braun Objective Last Vital Signs Date Time Temp Pulse Resp B/P (MAP) Pulse Ox O2 Delivery O2 Flow Rate FiO2 10/20/18 16:00 99.1 99 19 122/75 (91) 99 10/20/18 09:00 Room Air Room Air 10/19/18 21:00 10.0 10.0 10/19/18 20:10 40 Laboratory Tests Test 10/20/18 06:15 White Blood Count 5.2 K/UL (4.8-10.8) Red Blood Count 3.31 M/UL (4.70-6.10) L Hemoglobin 10.4 G/DL (14.2-18.0) L Hematocrit 29.1 % (42.0-52.0) L Mean Corpuscular Volume 88 FL (80-99) Mean Corpuscular Hemoglobin 31.3 PG (27.0-31.0) H Mean Corpuscular Hemoglobin Concent 35.7 G/DL (32.0-36.0) Red Cell Distribution Width 12.6 % (11.6-14.8) Platelet Count 149 K/UL (150-450) L Mean Platelet Volume 5.5 FL (6.5-10.1) L Neutrophils (%) (Auto) % (45.0-75.0) Lymphocytes (%) (Auto) % (20.0-45.0) Monocytes (%) (Auto) % (1.0-10.0) Eosinophils (%) (Auto) % (0.0-3.0) Basophils (%) (Auto) % (0.0-2.0) Differential Total Cells Counted 100 Neutrophils % (Manual) 85 % (45-75) H Lymphocytes % (Manual) 5 % (20-45) L Monocytes % (Manual) 8 % (1-10) Eosinophils % (Manual) 0 % (0-3) Basophils % (Manual) 0 % (0-2) Band Neutrophils 2 % (0-8) Platelet Estimate Decreased L Platelet Morphology Normal Hypochromasia 1+ Anisocytosis 1+ Spherocytes 2+ Sodium Level 135 MMOL/L (136-145) L Potassium Level 3.2 MMOL/L (3.5-5.1) L Chloride Level 99 MMOL/L (98-107) Carbon Dioxide Level 33 MMOL/L (21-32) H Anion Gap 3 mmol/L (5-15) L Blood Urea Nitrogen 8 mg/dL (7-18) Creatinine 0.5 MG/DL (0.55-1.30) L Estimat Glomerular Filtration Rate > 60 mL/min (>60) Glucose Level 170 MG/DL (74-106) H Uric Acid 1.7 MG/DL (2.6-7.2) L Calcium Level 8.1 MG/DL (8.5-10.1) L Phosphorus Level 2.9 MG/DL (2.5-4.9) Magnesium Level 1.5 MG/DL (1.8-2.4) L Total Bilirubin 0.6 MG/DL (0.2-1.0) Aspartate Amino Transf (AST/SGOT) 20 U/L (15-37) Alanine Aminotransferase (ALT/SGPT) 18 U/L (12-78) Alkaline Phosphatase 62 U/L (46-116) Total Protein 6.0 G/DL (6.4-8.2) L Albumin 1.7 G/DL (3.4-5.0) L Globulin 4.3 g/dL Albumin/Globulin Ratio 0.4 (1.0-2.7) L Intake and Output 10/19/18 10/20/18 19:00 07:00 Intake Total 1145 ml 1009.999 ml Output Total 2750 ml Balance 1145 ml -1740.001 ml Intake Oral 820 ml IV Total 325 ml 1009.999 ml Output Urine Total 2750 ml # Voids 7 # Bowel Movements 2 Objective PHYSICAL EXAMINATION: GENERAL: The patient is well-developed and well-nourished male, in moderate respiratory distress. HEENT: Eyes, pupils are equal and responsive to light and accommodation. Extraocular movements are intact. NECK: Supple without lymphadenopathy. CHEST: venturi mask; Lungs with coarse breath sounds bilaterally CARDIOVASCULAR: Regular rhythm and rate. S1 and S2 normal without murmurs, rubs, or gallops. ABDOMEN: Soft, nontender, and nondistended. Positive bowel sounds. No evidence of hepatosplenomegaly, rebound or guarding noted. EXTREMITIES: Negative for clubbing, cyanosis, or edema. RECTAL/GENITAL: Not performed. NEUROLOGICAL: Cranial nerves II through XII are grossly intact without focal deficits Assessment/Plan Assessment/Plan ASSESSMENT: This is a 68-year-old male. 1. Altered mental status. 2. Urinary tract infection-E. Coli 3. Brain cancer. 4. Seizure disorder. 5. Diabetes type 2. 6. History of cerebrovascular accident. 7. Right hemiparesis. 8. Hypertension. 9. Coronary artery disease. 10. Expressive aphasia. 11. Hypercholesterolemia. 12. Sepsis-Staph Epidermidis and Staph Hominis 13 Sacral decubitus ulcer TREATMENT: 1. Altered mental status. This may be secondary to urinary tract infection. Urine culture is pending. The patient has been started empirically on vancomycin and cefepime. Await urine cultures. 2. Urinary tract infection-E.Coli. Abx=zosyn and vanco per ID follow recommendations of Infectious Diseases. 3. Brain cancer. 4. Seizure disorder. D/C Depakote and Lamictal per family request 5. Diabetes type 2. A NovoLog sliding scale has been instituted. 6. History of cerebrovascular accident. 7. Right hemiparesis. 8. Expressive aphasia. 9. Hypertension. The patient is currently hypotensive. 10. History of coronary artery disease. 11. Sepsis=Staph species; continue vanco per ID 12. Hospice Jesus Carranza MD Oct 20, 2018 17:51
--- NOTE | 2018-10-20 18:13 | Infectious Diseases Prog Note ---
Assessment/Plan Assessment/Plan ssessment: Sepsis Probable UTI -u/a wbc 30-40, nit neg, leuk +3; ucx >100K E.coli (R Cipro/Levo; otherwise) Gram positive bacteremia, -10/10 BCx 09/24 S. hominis, S. epi; 10/13 Bcx NTD -2d Echo: no vegetations seen Infected Sacral decubitus ulcer ( Path findings : acute OM ) -10/13 SP Excision of sacral pressure ulcer with coccygectomy and ostectomy. Afebrile Pancytopenia Acute respiratory failure on VM- no obvious PNA on CXR -CXR: Minimal left midlung atelectasis. No acute process otherwise Satisfactory nasogastric intubation, also demonstrated on recent abdomen radiograph -sp cx MRSA, C. albicans (likely colonizers as no PNA on CXR) Acute encephalopathy -CT brain wo: Chronic and age-related changes as described. Postsurgical changes with underlying temporal, parietal, and frontal encephalomalacia. 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 No contrast enhancement to suggest recurrent tumor is evident currently. There is evidence of old peripheral hemorrhage, presumably related to the prior surgery. 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 Negative for acute intracranial bleed, mass effect, infarct, or contrast enhancing lesion. Chronic and age-related changes, as described CVA w/ R hemiparesis and aphasia HTN HLD BPH Dm2 s/p appendectomy s/p tonsillectomy CAD seizure disorder SNF resident Plan: - Continue IV Vancomycin # and start IV zosyn d# - 10/19 Sp Ceftriaxone #8 (abx d# 04/01-14) for UTI and for wound infection -10/12 SP Cefepime #3 -Monitor CBC/CMP, temperatures -f/u Bcx x2 (reordered) -wound care per surgical team -aspiration precautions -Sx f/u -f/u wound cx Subjective Constitutional: Denies: no symptoms, fever, chills, fatigue, anorexia, drenching sweats, other Allergies: Coded Allergies: No Known Allergies (Unverified , 09/27/18) Subjective Afebrile Objective Vital Signs Last 24 Hour Vital Signs Date Time Temp Pulse Resp B/P (MAP) Pulse Ox O2 Delivery O2 Flow Rate FiO2 10/20/18 16:00 99.1 99 19 122/75 (91) 99 10/20/18 12:00 98.1 108 20 129/68 (88) 100 10/20/18 09:00 105 10/20/18 09:00 Room Air Room Air 10/20/18 08:00 98.3 105 16 105/70 (82) 99 10/20/18 04:00 97.7 105 17 109/74 (86) 99 10/20/18 00:00 98.3 100 17 120/77 (91) 99 10/19/18 21:00 106 105/69 10/19/18 21:00 Venturi Mask 10.0 Venturi Mask 10.0 10/19/18 20:10 Venturi Mask 10.0 40 10/19/18 20:10 97 Venturi Mask 10.0 40 10/19/18 20:00 98.3 106 18 105/69 (81) 99 Height (Feet): 5 Height (Inches): 7.00 Weight (Pounds): 148 Respiratory/Chest: lungs clear Cardiovascular: regular rhythm Abdomen: no organomegaly Laboratory Tests Test 10/20/18 06:15 White Blood Count 5.2 K/UL (4.8-10.8) Red Blood Count 3.31 M/UL (4.70-6.10) L Hemoglobin 10.4 G/DL (14.2-18.0) L Hematocrit 29.1 % (42.0-52.0) L Mean Corpuscular Volume 88 FL (80-99) Mean Corpuscular Hemoglobin 31.3 PG (27.0-31.0) H Mean Corpuscular Hemoglobin Concent 35.7 G/DL (32.0-36.0) Red Cell Distribution Width 12.6 % (11.6-14.8) Platelet Count 149 K/UL (150-450) L Mean Platelet Volume 5.5 FL (6.5-10.1) L Neutrophils (%) (Auto) % (45.0-75.0) Lymphocytes (%) (Auto) % (20.0-45.0) Monocytes (%) (Auto) % (1.0-10.0) Eosinophils (%) (Auto) % (0.0-3.0) Basophils (%) (Auto) % (0.0-2.0) Differential Total Cells Counted 100 Neutrophils % (Manual) 85 % (45-75) H Lymphocytes % (Manual) 5 % (20-45) L Monocytes % (Manual) 8 % (1-10) Eosinophils % (Manual) 0 % (0-3) Basophils % (Manual) 0 % (0-2) Band Neutrophils 2 % (0-8) Platelet Estimate Decreased L Platelet Morphology Normal Hypochromasia 1+ Anisocytosis 1+ Spherocytes 2+ Sodium Level 135 MMOL/L (136-145) L Potassium Level 3.2 MMOL/L (3.5-5.1) L Chloride Level 99 MMOL/L (98-107) Carbon Dioxide Level 33 MMOL/L (21-32) H Anion Gap 3 mmol/L (5-15) L Blood Urea Nitrogen 8 mg/dL (7-18) Creatinine 0.5 MG/DL (0.55-1.30) L Estimat Glomerular Filtration Rate > 60 mL/min (>60) Glucose Level 170 MG/DL (74-106) H Uric Acid 1.7 MG/DL (2.6-7.2) L Calcium Level 8.1 MG/DL (8.5-10.1) L Phosphorus Level 2.9 MG/DL (2.5-4.9) Magnesium Level 1.5 MG/DL (1.8-2.4) L Total Bilirubin 0.6 MG/DL (0.2-1.0) Aspartate Amino Transf (AST/SGOT) 20 U/L (15-37) Alanine Aminotransferase (ALT/SGPT) 18 U/L (12-78) Alkaline Phosphatase 62 U/L (46-116) Total Protein 6.0 G/DL (6.4-8.2) L Albumin 1.7 G/DL (3.4-5.0) L Globulin 4.3 g/dL Albumin/Globulin Ratio 0.4 (1.0-2.7) L Current Medications Medications (Trade) Dose Ordered Sig/Chace Route PRN Reason Start Time Stop Time Status Last Admin Dose Admin Acetaminophen (Tylenol) 650 mg Q4H PRN ORAL T>100.5 10/13/18 16:30 11/09/18 16:29 Carvedilol (Coreg) 12.5 mg EVERY 12 HOURS NG 10/13/18 21:00 11/12/18 08:59 10/16/18 08:33 Dexamethasone Sodium Phosphate (Decadron 4mg/ml vial) 4 mg Q6H IVP 10/20/18 14:30 11/19/18 14:29 10/20/18 14:43 Dextrose (Dextrose 50%) 25 ml Q30M PRN IV Hypoglycemia 10/14/18 13:30 11/13/18 13:29 Dextrose (Dextrose 50%) 50 ml Q30M PRN IV Hypoglycemia 10/14/18 13:30 11/13/18 13:29 Dextrose/ Electrolytes 1,000 ml @ 50 mls/hr Q20H IV 10/20/18 19:30 11/19/18 19:29 Digoxin (Lanoxin) 0.25 mg DAILY ORAL 10/20/18 09:00 11/19/18 08:59 Heparin Sodium (Porcine) (Heparin 5000 units/ml) 5,000 units EVERY 12 HOURS SUBQ 10/13/18 21:00 11/09/18 20:59 10/20/18 10:09 Insulin Aspart (NovoLOG) EVERY 6 HOURS SUBQ 10/14/18 18:00 11/09/18 16:29 10/20/18 12:41 Lorazepam (Ativan 2mg/ml 1ml) 1 mg Q2H PRN IV For Anxiety 10/16/18 16:22 10/23/18 16:21 Ondansetron HCl (Zofran) 4 mg Q6H PRN IVP Nausea & Vomiting 10/13/18 16:30 11/09/18 16:29 Pantoprazole (Protonix) 40 mg EVERY 12 HOURS IVP 10/18/18 21:00 11/17/18 20:59 10/20/18 10:04 Piperacillin Sod/ Tazobactam Sod 3.375 gm/Sodium Chloride 110 ml @ 27.5 mls/hr EVERY 8 HOURS IVPB 10/19/18 14:00 10/24/18 13:59 10/20/18 16:21 Polyethylene Glycol (Miralax) 17 gm DAILYPRN PRN ORAL Constipation 10/13/18 16:30 11/12/18 16:29 Potassium Chloride 100 ml @ 100 mls/hr Q1H IVPB 10/20/18 17:15 10/20/18 20:14 10/20/18 17:37 Promethazine HCl/ Codeine (Phenergan with Codeine) 5 ml Q4H PRN ORAL For Cough 10/13/18 16:30 11/09/18 16:29 Vancomycin HCl (Vanco rx to dose) 1 ea DAILY PRN MISC . 10/14/18 09:00 11/09/18 13:29 Vancomycin HCl 750 mg/Sodium Chloride 275 ml @ 183.333 mls/hr Q8H IVPB 10/18/18 06:00 10/23/18 05:59 10/20/18 14:19 Alex Carias MD Oct 20, 2018 18:13
[2018-10-20 20:00] VITALS: BP 133/73
[2018-10-21] VITALS: BP 111/72
[2018-10-21] MEDS: Vancomycin 750mg/NS 275ml IVPB SCH ×8 (00:31→22:40)
[2018-10-21] MEDS: Piperacillin/Tazobactam 3.375 GM in NS 110 ML IVPB SCH ×4 (00:34→22:40)
[2018-10-21] MEDS: NovoLOG Insulin Flexpen SUBQ SCH ×4 (00:43→17:36)
[2018-10-21 04:00] VITALS: BP 108/71
[2018-10-21] MEDS: Dexamethasone 4mg/ml vial IVP SCH ×4 (04:03→22:39)
[2018-10-21 05:45] LABS: HEMATOCRIT 24.4 % (42.0-52.0); HEMOGLOBIN 8.6 G/DL (14.2-18.0); MEAN CORPUSCULAR VOLUME 90 FL (80-99); PLATELET COUNT 169 K/UL (150-450); RED BLOOD COUNT 2.72 M/UL (4.70-6.10); RED CELL DISTRIBUTION WIDTH 12.7 % (11.6-14.8); WHITE BLOOD COUNT 4.1 K/UL (4.8-10.8)
[2018-10-21 05:58] LABS: ANION GAP 3 mmol/L (5-15); BLOOD UREA NITROGEN 11 mg/dL (7-18); CARBON DIOXIDE 31 MMOL/L (21-32); CHLORIDE 101 MMOL/L (98-107); CREATININE 0.6 MG/DL (0.55-1.30); SODIUM 135 MMOL/L (136-145)
[2018-10-21 06:00] LABS: INR 1.1 (0.9-1.1)
--- NOTE | 2018-10-21 06:42 | General Progress Note ---
Assessment/Plan Problem List: (1) Brain tumor ICD Codes: D49.6 - Neoplasm of unspecified behavior of brain SNOMED: 567823731 (2) Altered level of consciousness ICD Codes: R40.4 - Transient alteration of awareness SNOMED: 7357014 (3) Diabetes mellitus ICD Codes: E11.9 - Type 2 diabetes mellitus without complications SNOMED: 47705696 (4) Hypertension ICD Codes: I10 - Essential (primary) hypertension SNOMED: 26384322 Status: stable, not improved Assessment/Plan: add Levemir 6 units daily continue NISS every 6 hours Subjective ROS Limited/Unobtainable: Yes Allergies: Coded Allergies: No Known Allergies (Unverified , 09/27/18) Subjective events noted glucose values on higher side Item Value Date Time Bedside Blood Glucose 235 mg/dl H 10/21/18 0619 Bedside Blood Glucose 248 mg/dl H 10/21/18 0043 Bedside Blood Glucose 183 mg/dl H 10/20/18 1905 Bedside Blood Glucose 183 mg/dl H 10/20/18 1858 Bedside Blood Glucose 174 mg/dl H 10/20/18 1241 Bedside Blood Glucose 171 mg/dl H 10/20/18 0600 Objective Last 24 Hour Vital Signs Date Time Temp Pulse Resp B/P (MAP) Pulse Ox O2 Delivery O2 Flow Rate FiO2 10/21/18 04:00 98.2 94 18 108/71 (83) 96 10/21/18 00:00 97.2 90 18 111/72 (85) 96 10/20/18 21:00 Room Air Room Air 10/20/18 21:00 96 133/73 10/20/18 20:00 98.5 96 17 133/73 (93) 96 10/20/18 16:00 99.1 99 19 122/75 (91) 99 10/20/18 12:00 98.1 108 20 129/68 (88) 100 10/20/18 09:00 105 10/20/18 09:00 Room Air Room Air 10/20/18 08:00 98.3 105 16 105/70 (82) 99 Intake and Output 10/20/18 10/21/18 19:00 07:00 Intake Total 491.667 ml Output Total 1400 ml Balance -908.333 ml IV Total 491.667 ml Output Urine Total 1400 ml Laboratory Tests 10/21/18 04:47: White Blood Count 4.1L, Red Blood Count 2.72L, Hemoglobin 8.6L, Hematocrit 24.4L , Mean Corpuscular Volume 90, Mean Corpuscular Hemoglobin 31.7H, Mean Corpuscular Hemoglobin Concent 35.4, Red Cell Distribution Width 12.7, Platelet Count 169, Mean Platelet Volume 5.5L, Neutrophils (%) (Auto) , Lymphocytes (%) ( Auto) , Monocytes (%) (Auto) , Eosinophils (%) (Auto) , Basophils (%) (Auto) , Neutrophils % (Manual) [Pending], Lymphocytes % (Manual) [Pending], Platelet Estimate [Pending], Platelet Morphology [Pending], Prothrombin Time 11.9H, Prothromb Time International Ratio 1.1, Activated Partial Thromboplast Time 39H , Sodium Level 135L, Potassium Level 4.0, Chloride Level 101, Carbon Dioxide Level 31, Anion Gap 3L, Blood Urea Nitrogen 11, Creatinine 0.6, Estimat Glomerular Filtration Rate > 60, Glucose Level 239H, Calcium Level 8.0L Height (Feet): 5 Height (Inches): 7.00 Weight (Pounds): 148 General Appearance: no apparent distress Neck: normal alignment Cardiovascular: normal rate Respiratory/Chest: decreased breath sounds Abdomen: normal bowel sounds Pelvis: normal external exam Objective Current Medications Medications (Trade) Dose Ordered Sig/Chace Route PRN Reason Start Time Stop Time Status Last Admin Dose Admin Acetaminophen (Tylenol) 650 mg Q4H PRN ORAL T>100.5 10/13/18 16:30 11/09/18 16:29 Carvedilol (Coreg) 12.5 mg EVERY 12 HOURS NG 10/13/18 21:00 11/12/18 08:59 10/16/18 08:33 Dexamethasone Sodium Phosphate (Decadron 4mg/ml vial) 4 mg Q6H IVP 10/20/18 14:30 11/19/18 14:29 10/21/18 04:03 Dextrose (Dextrose 50%) 25 ml Q30M PRN IV Hypoglycemia 10/14/18 13:30 11/13/18 13:29 Dextrose (Dextrose 50%) 50 ml Q30M PRN IV Hypoglycemia 10/14/18 13:30 11/13/18 13:29 Dextrose/ Electrolytes 1,000 ml @ 50 mls/hr Q20H IV 10/20/18 19:30 11/19/18 19:29 10/20/18 21:19 Digoxin (Lanoxin) 0.25 mg DAILY ORAL 10/20/18 09:00 11/19/18 08:59 Heparin Sodium (Porcine) (Heparin 5000 units/ml) 5,000 units EVERY 12 HOURS SUBQ 10/13/18 21:00 11/09/18 20:59 10/20/18 21:21 Insulin Aspart (NovoLOG) EVERY 6 HOURS SUBQ 10/14/18 18:00 11/09/18 16:29 10/21/18 06:19 Lorazepam (Ativan 2mg/ml 1ml) 1 mg Q2H PRN IV For Anxiety 10/16/18 16:22 10/23/18 16:21 Ondansetron HCl (Zofran) 4 mg Q6H PRN IVP Nausea & Vomiting 10/13/18 16:30 11/09/18 16:29 Pantoprazole (Protonix) 40 mg EVERY 12 HOURS IVP 10/18/18 21:00 11/17/18 20:59 10/20/18 21:19 Piperacillin Sod/ Tazobactam Sod 3.375 gm/Sodium Chloride 110 ml @ 27.5 mls/hr EVERY 8 HOURS IVPB 10/19/18 14:00 10/24/18 13:59 10/21/18 06:18 Polyethylene Glycol (Miralax) 17 gm DAILYPRN PRN ORAL Constipation 10/13/18 16:30 11/12/18 16:29 Promethazine HCl/ Codeine (Phenergan with Codeine) 5 ml Q4H PRN ORAL For Cough 10/13/18 16:30 11/09/18 16:29 Vancomycin HCl (Vanco rx to dose) 1 ea DAILY PRN MISC . 10/14/18 09:00 11/09/18 13:29 Vancomycin HCl 750 mg/Sodium Chloride 275 ml @ 183.333 mls/hr Q8H IVPB 10/18/18 06:00 10/23/18 05:59 10/21/18 06:18 Richard Lugo MD October 21, 2018 06:42
[2018-10-21 08:00] VITALS: BP 132/80
[2018-10-21] MEDS ORDERED: Levemir Flexpen SUBQ SCH (09:00)
[2018-10-21] MEDS: Carvedilol 12.5mg tab NG SCH ×2 (09:42→22:39)
[2018-10-21] MEDS: Pantoprazole Inj IVP SCH (09:43)
[2018-10-21] MEDS: Heparin 5000 units/ml inj SUBQ SCH ×2 (09:44→22:41)
--- NOTE | 2018-10-21 10:45 | GI Progress Note ---
Assessment/Plan Problems: (1) PEG (percutaneous endoscopic gastrostomy) adjustment/replacement/removal ICD Codes: Z43.1 - Encounter for attention to gastrostomy SNOMED: 929658185, 010316500 (2) Severe malnutrition ICD Codes: E43 - Unspecified severe protein-calorie malnutrition SNOMED: 95931002 (3) Dysphagia ICD Codes: R13.10 - Dysphagia, unspecified SNOMED: 56611982, 057066775 (4) Anemia ICD Codes: D64.9 - Anemia, unspecified SNOMED: 002304317 Status: stable Status Narrative Discussed with Dr. Burnett Assessment/Plan Patient passed ST evaluation, on mechanical soft diet Will defer PEG, family also wishing to advance diet Okay to advance diet per ST PT evaluation Strict aspiration precautions prn transfusions ppi follow labs dc planning The patient was seen and examined at bedside and all new and available data was reviewed in the patients chart. I agree with the above findings, impression and plan. (Patient seen earlier today. Signature stamp does not reflect patient encounter time.). - Baldev Burnett MD Subjective Gastrointestinal/Abdominal: Reports: no symptoms Objective Last 24 Hour Vital Signs Date Time Temp Pulse Resp B/P (MAP) Pulse Ox O2 Delivery O2 Flow Rate FiO2 10/21/18 09:42 100 10/21/18 09:42 100 132/80 10/21/18 09:00 Room Air Room Air 10/21/18 08:00 97.5 100 18 132/80 (97) 98 10/21/18 04:00 98.2 94 18 108/71 (83) 96 10/21/18 00:00 97.2 90 18 111/72 (85) 96 10/20/18 21:00 Room Air Room Air 10/20/18 21:00 96 133/73 10/20/18 20:00 98.5 96 17 133/73 (93) 96 10/20/18 16:00 99.1 99 19 122/75 (91) 99 10/20/18 12:00 98.1 108 20 129/68 (88) 100 Intake and Output 10/20/18 10/21/18 19:00 07:00 Intake Total 491.667 ml 2161.666 ml Output Total 1400 ml 970 ml Balance -908.333 ml 1191.666 ml Intake Oral 820 ml Free Water 100 ml IV Total 491.667 ml 1076.666 ml Tube Feeding 65 ml Other 100 ml Output Urine Total 1400 ml 950 ml Estimated Blood Loss 20 ml # Voids 2 # Bowel Movements 2 Laboratory Tests Test 10/21/18 04:47 White Blood Count 4.1 K/UL (4.8-10.8) L Red Blood Count 2.72 M/UL (4.70-6.10) L Hemoglobin 8.6 G/DL (14.2-18.0) L Hematocrit 24.4 % (42.0-52.0) L Mean Corpuscular Volume 90 FL (80-99) Mean Corpuscular Hemoglobin 31.7 PG (27.0-31.0) H Mean Corpuscular Hemoglobin Concent 35.4 G/DL (32.0-36.0) Red Cell Distribution Width 12.7 % (11.6-14.8) Platelet Count 169 K/UL (150-450) Mean Platelet Volume 5.5 FL (6.5-10.1) L Neutrophils (%) (Auto) % (45.0-75.0) Lymphocytes (%) (Auto) % (20.0-45.0) Monocytes (%) (Auto) % (1.0-10.0) Eosinophils (%) (Auto) % (0.0-3.0) Basophils (%) (Auto) % (0.0-2.0) Differential Total Cells Counted 100 Neutrophils % (Manual) 92 % (45-75) H Lymphocytes % (Manual) 6 % (20-45) L Monocytes % (Manual) 2 % (1-10) Eosinophils % (Manual) 0 % (0-3) Basophils % (Manual) 0 % (0-2) Band Neutrophils 0 % (0-8) Platelet Estimate Adequate Platelet Morphology Normal Polychromasia 1+ Prothrombin Time 11.9 SEC (9.30-11.50) H Prothromb Time International Ratio 1.1 (0.9-1.1) Activated Partial Thromboplast Time 39 SEC (23-33) H Sodium Level 135 MMOL/L (136-145) L Potassium Level 4.0 MMOL/L (3.5-5.1) Chloride Level 101 MMOL/L (98-107) Carbon Dioxide Level 31 MMOL/L (21-32) Anion Gap 3 mmol/L (5-15) L Blood Urea Nitrogen 11 mg/dL (7-18) Creatinine 0.6 MG/DL (0.55-1.30) Estimat Glomerular Filtration Rate > 60 mL/min (>60) Glucose Level 239 MG/DL (74-106) H Calcium Level 8.0 MG/DL (8.5-10.1) L Height (Feet): 5 Height (Inches): 7.00 Weight (Pounds): 155 General Appearance: WD/WN, no apparent distress, alert Cardiovascular: normal rate Respiratory/Chest: normal breath sounds, no respiratory distress Abdominal Exam: normal bowel sounds, non tender, soft Extremities: non-tender Benny Pham NP October 21, 2018 10:45
[2018-10-21 12:00] VITALS: BP 125/76
--- NOTE | 2018-10-21 12:35 | Internal Med Progress Note ---
Subjective Date of Service: October 21, 2018 Physician Name Jesus Kidd Attending Physician Camacho Braun MD Current Medications Medications (Trade) Dose Ordered Sig/Chace Route PRN Reason Start Time Stop Time Status Last Admin Dose Admin Acetaminophen (Tylenol) 650 mg Q4H PRN ORAL T>100.5 10/13/18 16:30 11/09/18 16:29 Carvedilol (Coreg) 12.5 mg EVERY 12 HOURS NG 10/13/18 21:00 11/12/18 08:59 10/21/18 09:42 Dexamethasone Sodium Phosphate (Decadron 4mg/ml vial) 4 mg Q6H IVP 10/20/18 14:30 11/19/18 14:29 10/21/18 09:58 Dextrose (Dextrose 50%) 25 ml Q30M PRN IV Hypoglycemia 10/21/18 06:45 11/20/18 06:44 Dextrose (Dextrose 50%) 50 ml Q30M PRN IV Hypoglycemia 10/21/18 06:45 11/20/18 06:44 Dextrose/ Electrolytes 1,000 ml @ 50 mls/hr Q20H IV 10/20/18 19:30 11/19/18 19:29 10/20/18 21:19 Digoxin (Lanoxin) 0.25 mg DAILY ORAL 10/20/18 09:00 11/19/18 08:59 10/21/18 09:42 Heparin Sodium (Porcine) (Heparin 5000 units/ml) 5,000 units EVERY 12 HOURS SUBQ 10/13/18 21:00 11/09/18 20:59 10/21/18 09:44 Insulin Aspart (NovoLOG) EVERY 6 HOURS SUBQ 10/14/18 18:00 11/09/18 16:29 10/21/18 06:19 Insulin Detemir (Levemir) 6 units DAILY SUBQ 10/21/18 09:00 11/20/18 08:59 10/21/18 09:45 Lorazepam (Ativan 2mg/ml 1ml) 1 mg Q2H PRN IV For Anxiety 10/16/18 16:22 10/23/18 16:21 Ondansetron HCl (Zofran) 4 mg Q6H PRN IVP Nausea & Vomiting 10/13/18 16:30 11/09/18 16:29 Pantoprazole (Protonix) 40 mg EVERY 12 HOURS IVP 4/28/19 21:00 11/17/18 20:59 10/21/18 09:43 Piperacillin Sod/ Tazobactam Sod 3.375 gm/Sodium Chloride 110 ml @ 27.5 mls/hr EVERY 8 HOURS IVPB 10/19/18 14:00 10/24/18 13:59 10/21/18 06:18 Polyethylene Glycol (Miralax) 17 gm DAILYPRN PRN ORAL Constipation 10/13/18 16:30 11/12/18 16:29 Promethazine HCl/ Codeine (Phenergan with Codeine) 5 ml Q4H PRN ORAL For Cough 10/13/18 16:30 11/09/18 16:29 Vancomycin HCl (Vanco rx to dose) 1 ea DAILY PRN MISC . 10/14/18 09:00 11/09/18 13:29 Vancomycin HCl 750 mg/Sodium Chloride 275 ml @ 183.333 mls/hr Q8H IVPB 10/18/18 06:00 10/23/18 05:59 10/21/18 06:18 Allergies: Coded Allergies: No Known Allergies (Unverified , 09/27/18) ROS Limited/Unobtainable: Yes Subjective 68 YO M with history of brain cancer admitted with altered mental status. Now UTI and sepsis. On venturi mask. Cover for Int Patel-Dr Braun Objective Last Vital Signs Date Time Temp Pulse Resp B/P (MAP) Pulse Ox O2 Delivery O2 Flow Rate FiO2 10/21/18 12:00 97.5 94 20 125/76 (92) 97 10/21/18 09:00 Room Air Room Air 10/19/18 21:00 10.0 10.0 10/19/18 20:10 40 Laboratory Tests Test 10/21/18 04:47 White Blood Count 4.1 K/UL (4.8-10.8) L Red Blood Count 2.72 M/UL (4.70-6.10) L Hemoglobin 8.6 G/DL (14.2-18.0) L Hematocrit 24.4 % (42.0-52.0) L Mean Corpuscular Volume 90 FL (80-99) Mean Corpuscular Hemoglobin 31.7 PG (27.0-31.0) H Mean Corpuscular Hemoglobin Concent 35.4 G/DL (32.0-36.0) Red Cell Distribution Width 12.7 % (11.6-14.8) Platelet Count 169 K/UL (150-450) Mean Platelet Volume 5.5 FL (6.5-10.1) L Neutrophils (%) (Auto) % (45.0-75.0) Lymphocytes (%) (Auto) % (20.0-45.0) Monocytes (%) (Auto) % (1.0-10.0) Eosinophils (%) (Auto) % (0.0-3.0) Basophils (%) (Auto) % (0.0-2.0) Differential Total Cells Counted 100 Neutrophils % (Manual) 92 % (45-75) H Lymphocytes % (Manual) 6 % (20-45) L Monocytes % (Manual) 2 % (1-10) Eosinophils % (Manual) 0 % (0-3) Basophils % (Manual) 0 % (0-2) Band Neutrophils 0 % (0-8) Platelet Estimate Adequate Platelet Morphology Normal Polychromasia 1+ Prothrombin Time 11.9 SEC (9.30-11.50) H Prothromb Time International Ratio 1.1 (0.9-1.1) Activated Partial Thromboplast Time 39 SEC (23-33) H Sodium Level 135 MMOL/L (136-145) L Potassium Level 4.0 MMOL/L (3.5-5.1) Chloride Level 101 MMOL/L (98-107) Carbon Dioxide Level 31 MMOL/L (21-32) Anion Gap 3 mmol/L (5-15) L Blood Urea Nitrogen 11 mg/dL (7-18) Creatinine 0.6 MG/DL (0.55-1.30) Estimat Glomerular Filtration Rate > 60 mL/min (>60) Glucose Level 239 MG/DL (74-106) H Calcium Level 8.0 MG/DL (8.5-10.1) L Intake and Output 10/20/18 10/21/18 18:59 06:59 Intake Total 491.667 ml 2161.666 ml Output Total 1400 ml 970 ml Balance -908.333 ml 1191.666 ml Intake Oral 820 ml Free Water 100 ml IV Total 491.667 ml 1076.666 ml Tube Feeding 65 ml Other 100 ml Output Urine Total 1400 ml 950 ml Estimated Blood Loss 20 ml # Voids 2 # Bowel Movements 2 Objective PHYSICAL EXAMINATION: GENERAL: The patient is well-developed and well-nourished male, in moderate respiratory distress. HEENT: Eyes, pupils are equal and responsive to light and accommodation. Extraocular movements are intact. NECK: Supple without lymphadenopathy. CHEST: venturi mask; Lungs with coarse breath sounds bilaterally CARDIOVASCULAR: Regular rhythm and rate. S1 and S2 normal without murmurs, rubs, or gallops. ABDOMEN: Soft, nontender, and nondistended. Positive bowel sounds. No evidence of hepatosplenomegaly, rebound or guarding noted. EXTREMITIES: Negative for clubbing, cyanosis, or edema. RECTAL/GENITAL: Not performed. NEUROLOGICAL: Cranial nerves II through XII are grossly intact without focal deficits Assessment/Plan Assessment/Plan ASSESSMENT: This is a 68-year-old male. 1. Altered mental status. 2. Urinary tract infection-E. Coli 3. Brain cancer. 4. Seizure disorder. 5. Diabetes type 2. 6. History of cerebrovascular accident. 7. Right hemiparesis. 8. Hypertension. 9. Coronary artery disease. 10. Expressive aphasia. 11. Hypercholesterolemia. 12. Sepsis-Staph Epidermidis and Staph Hominis 13 Sacral decubitus ulcer TREATMENT: 1. Altered mental status. This may be secondary to urinary tract infection. Urine culture is pending. The patient has been started empirically on vancomycin and cefepime. Await urine cultures. 2. Urinary tract infection-E.Coli. Abx=zosyn and vanco per ID follow recommendations of Infectious Diseases. 3. Brain cancer. 4. Seizure disorder. D/C Depakote and Lamictal per family request 5. Diabetes type 2. A NovoLog sliding scale has been instituted. 6. History of cerebrovascular accident. 7. Right hemiparesis. 8. Expressive aphasia. 9. Hypertension. The patient is currently hypotensive. 10. History of coronary artery disease. 11. Sepsis=Staph species; continue vanco per ID 12. Hospice eval 13. PEG Jesus Carranza MD October 21, 2018 12:35
[2018-10-21] MEDS ORDERED: LEVEMIR FL100 UNIT/1 SUBQ (13:26)
[2018-10-21] MEDS ORDERED: DIGOXIN250 MCG ORAL (13:26)
[2018-10-21] MEDS ORDERED: NOVOLOG100 UNITS1 SUBQ (13:26)
--- NOTE | 2018-10-21 13:29 | Pulmonology Progress Note ---
Assessment/Plan Problems: (1) acute toxic encephalopathy (2) Sepsis (3) Brain tumor (4) Sacral decubitus ulcer (5) Hypertension (6) Diabetes mellitus (7) History of CVA (cerebrovascular accident) Assessment/Plan pt woke up. eating well. MRI of brain done Encephalomalacia of the left anterior temporal lobe and adjacent frontal and parietal opercula; f/u cultures continue abx sliding scale monitor BP dc to long-term Subjective ROS Limited/Unobtainable: No Constitutional: Reports: no symptoms HEENT: Repors: no symptoms Allergies: Coded Allergies: No Known Allergies (Unverified , 09/27/18) Objective Last 24 Hour Vital Signs Date Time Temp Pulse Resp B/P (MAP) Pulse Ox O2 Delivery O2 Flow Rate FiO2 10/21/18 12:00 97.5 94 20 125/76 (92) 97 10/21/18 09:42 100 10/21/18 09:42 100 132/80 10/21/18 09:00 Room Air Room Air 10/21/18 08:00 97.5 100 18 132/80 (97) 98 10/21/18 04:00 98.2 94 18 108/71 (83) 96 10/21/18 00:00 97.2 90 18 111/72 (85) 96 10/20/18 21:00 Room Air Room Air 10/20/18 21:00 96 133/73 10/20/18 20:00 98.5 96 17 133/73 (93) 96 10/20/18 16:00 99.1 99 19 122/75 (91) 99 Intake and Output 10/20/18 10/21/18 18:59 06:59 Intake Total 491.667 ml 2161.666 ml Output Total 1400 ml 970 ml Balance -908.333 ml 1191.666 ml Intake Oral 820 ml Free Water 100 ml IV Total 491.667 ml 1076.666 ml Tube Feeding 65 ml Other 100 ml Output Urine Total 1400 ml 950 ml Estimated Blood Loss 20 ml # Voids 2 # Bowel Movements 2 Objective General Appearance: WD/WN HEENT: normocephalic, atraumatic Respiratory/Chest: chest wall non-tender, normal breath sounds Cardiovascular: normal peripheral pulses, normal rate Abdomen: normal bowel sounds, soft, non tender, no organomegaly, non distended Extremities: no cyanosis Skin: no rash, no lesions, no ulcers Laboratory Tests 10/21/18 04:47: White Blood Count 4.1L, Red Blood Count 2.72L, Hemoglobin 8.6L, Hematocrit 24.4L , Mean Corpuscular Volume 90, Mean Corpuscular Hemoglobin 31.7H, Mean Corpuscular Hemoglobin Concent 35.4, Red Cell Distribution Width 12.7, Platelet Count 169, Mean Platelet Volume 5.5L, Neutrophils (%) (Auto) , Lymphocytes (%) ( Auto) , Monocytes (%) (Auto) , Eosinophils (%) (Auto) , Basophils (%) (Auto) , Differential Total Cells Counted 100, Neutrophils % (Manual) 92H, Lymphocytes % (Manual) 6L, Monocytes % (Manual) 2, Eosinophils % (Manual) 0, Basophils % ( Manual) 0, Band Neutrophils 0, Platelet Estimate Adequate, Platelet Morphology Normal, Polychromasia 1+, Prothrombin Time 11.9H, Prothromb Time International Ratio 1.1, Activated Partial Thromboplast Time 39H, Sodium Level 135L, Potassium Level 4.0, Chloride Level 101, Carbon Dioxide Level 31, Anion Gap 3L, Blood Urea Nitrogen 11, Creatinine 0.6, Estimat Glomerular Filtration Rate > 60 , Glucose Level 239H, Calcium Level 8.0L Current Medications Medications (Trade) Dose Ordered Sig/Chace Route PRN Reason Start Time Stop Time Status Last Admin Dose Admin Acetaminophen (Tylenol) 650 mg Q4H PRN ORAL T>100.5 10/13/18 16:30 11/09/18 16:29 Carvedilol (Coreg) 12.5 mg EVERY 12 HOURS NG 10/13/18 21:00 11/12/18 08:59 10/21/18 09:42 Dexamethasone Sodium Phosphate (Decadron 4mg/ml vial) 4 mg Q6H IVP 10/20/18 14:30 11/19/18 14:29 10/21/18 09:58 Dextrose (Dextrose 50%) 25 ml Q30M PRN IV Hypoglycemia 10/21/18 06:45 11/20/18 06:44 Dextrose (Dextrose 50%) 50 ml Q30M PRN IV Hypoglycemia 10/21/18 06:45 11/20/18 06:44 Dextrose/ Electrolytes 1,000 ml @ 50 mls/hr Q20H IV 10/20/18 19:30 11/19/18 19:29 10/20/18 21:19 Digoxin (Lanoxin) 0.25 mg DAILY ORAL 10/20/18 09:00 11/19/18 08:59 10/21/18 09:42 Heparin Sodium (Porcine) (Heparin 5000 units/ml) 5,000 units EVERY 12 HOURS SUBQ 10/13/18 21:00 11/09/18 20:59 10/21/18 09:44 Insulin Aspart (NovoLOG) EVERY 6 HOURS SUBQ 10/14/18 18:00 11/09/18 16:29 10/21/18 13:02 Insulin Detemir (Levemir) 6 units DAILY SUBQ 10/21/18 09:00 11/20/18 08:59 10/21/18 09:45 Lorazepam (Ativan 2mg/ml 1ml) 1 mg Q2H PRN IV For Anxiety 10/16/18 16:22 10/23/18 16:21 Ondansetron HCl (Zofran) 4 mg Q6H PRN IVP Nausea & Vomiting 10/13/18 16:30 11/09/18 16:29 Pantoprazole (Protonix) 40 mg EVERY 12 HOURS IVP 10/18/18 21:00 11/17/18 20:59 10/21/18 09:43 Piperacillin Sod/ Tazobactam Sod 3.375 gm/Sodium Chloride 110 ml @ 27.5 mls/hr EVERY 8 HOURS IVPB 10/19/18 14:00 10/24/18 13:59 10/21/18 13:04 Polyethylene Glycol (Miralax) 17 gm DAILYPRN PRN ORAL Constipation 10/13/18 16:30 11/12/18 16:29 Promethazine HCl/ Codeine (Phenergan with Codeine) 5 ml Q4H PRN ORAL For Cough 10/13/18 16:30 11/09/18 16:29 Vancomycin HCl (Vanco rx to dose) 1 ea DAILY PRN MISC . 10/14/18 09:00 11/09/18 13:29 Vancomycin HCl 750 mg/Sodium Chloride 275 ml @ 183.333 mls/hr Q8H IVPB 10/18/18 06:00 10/23/18 05:59 10/21/18 06:18 Raul Feng MD October 21, 2018 13:29
--- NOTE | 2018-10-21 14:46 | Nephrology Progress Note ---
Assessment/Plan Problem List: (1) Hyponatremia (2) Cardiomyopathy (3) Diabetes mellitus (4) Encephalopathy (5) Anemia Assessment HypoNatremia, ? Etiology further comments after intial blood and urine test results Cardiomyopathy with Ej Fx 25% HypoAlbuminemia Anemia Previously low Phos and Mag UTI Proteinuria other significant conditions: Altered mental status. Brain cancer. Seizure disorder. Diabetes type 2. History of cerebrovascular accident. Right hemiparesis. Hypertension. Coronary artery disease. Expressive aphasia. Hypercholesterolemia. Sepsis-Staph Epidermidis and Staph Hominis Sacral decubitus ulcer Plan Plan: at this time patient back on po intake Low Na downs ordered, likely related to low Albumin and cardiomyopathy trial 3% and Lasix as needed start digoxin Per orders Subjective ROS Limited/Unobtainable: No Constitutional: Reports: malaise Objective Objective Last 24 Hour Vital Signs Date Time Temp Pulse Resp B/P (MAP) Pulse Ox O2 Delivery O2 Flow Rate FiO2 10/21/18 12:00 97.5 94 20 125/76 (92) 97 10/21/18 09:42 100 10/21/18 09:42 100 132/80 10/21/18 09:00 Room Air Room Air 10/21/18 08:00 97.5 100 18 132/80 (97) 98 10/21/18 04:00 98.2 94 18 108/71 (83) 96 10/21/18 00:00 97.2 90 18 111/72 (85) 96 10/20/18 21:00 Room Air Room Air 10/20/18 21:00 96 133/73 10/20/18 20:00 98.5 96 17 133/73 (93) 96 10/20/18 16:00 99.1 99 19 122/75 (91) 99 Intake and Output 10/20/18 10/21/18 18:59 06:59 Intake Total 491.667 ml 2161.666 ml Output Total 1400 ml 970 ml Balance -908.333 ml 1191.666 ml Intake Oral 820 ml Free Water 100 ml IV Total 491.667 ml 1076.666 ml Tube Feeding 65 ml Other 100 ml Output Urine Total 1400 ml 950 ml Estimated Blood Loss 20 ml # Voids 2 # Bowel Movements 2 Laboratory Tests 10/21/18 04:47: White Blood Count 4.1L, Red Blood Count 2.72L, Hemoglobin 8.6L, Hematocrit 24.4L , Mean Corpuscular Volume 90, Mean Corpuscular Hemoglobin 31.7H, Mean Corpuscular Hemoglobin Concent 35.4, Red Cell Distribution Width 12.7, Platelet Count 169, Mean Platelet Volume 5.5L, Neutrophils (%) (Auto) , Lymphocytes (%) ( Auto) , Monocytes (%) (Auto) , Eosinophils (%) (Auto) , Basophils (%) (Auto) , Differential Total Cells Counted 100, Neutrophils % (Manual) 92H, Lymphocytes % (Manual) 6L, Monocytes % (Manual) 2, Eosinophils % (Manual) 0, Basophils % ( Manual) 0, Band Neutrophils 0, Platelet Estimate Adequate, Platelet Morphology Normal, Polychromasia 1+, Prothrombin Time 11.9H, Prothromb Time International Ratio 1.1, Activated Partial Thromboplast Time 39H, Sodium Level 135L, Potassium Level 4.0, Chloride Level 101, Carbon Dioxide Level 31, Anion Gap 3L, Blood Urea Nitrogen 11, Creatinine 0.6, Estimat Glomerular Filtration Rate > 60 , Glucose Level 239H, Calcium Level 8.0L Height (Feet): 5 Height (Inches): 7.00 Weight (Pounds): 155 General Appearance: no apparent distress Cardiovascular: tachycardia Respiratory/Chest: decreased breath sounds Abdomen: soft Juan Hopkins MD October 21, 2018 14:46
--- NOTE | 2018-10-21 14:56 | Diagnostic Imaging Report ---
APPROVED REPORT CPT Code: 35773 Present Symptoms Comments: RIGHT ARM SWELLING. RIGHT UPPER EXTREMITY: Venous imaging reveals patency of the internal jugular, subclavian, axillary and brachial veins. The cephalic and basilic veins are also patent. Doppler indicates normal spontaneous flow within these venous segments.
[2018-10-21 16:00] VITALS: BP 116/70
--- NOTE | 2018-10-21 16:18 | Infectious Diseases Prog Note ---
Assessment/Plan Assessment/Plan ssessment: Sepsis Probable UTI -u/a wbc 30-40, nit neg, leuk +3; ucx >100K E.coli (R Cipro/Levo; otherwise) Gram positive bacteremia, -10/10 BCx 09/24 S. hominis, S. epi; 10/13 Bcx NTD -2d Echo: no vegetations seen Infected Sacral decubitus ulcer ( Path findings : acute OM ) -10/13 SP Excision of sacral pressure ulcer with coccygectomy and ostectomy. Afebrile Pancytopenia Acute respiratory failure on VM- no obvious PNA on CXR -CXR: Minimal left midlung atelectasis. No acute process otherwise Satisfactory nasogastric intubation, also demonstrated on recent abdomen radiograph -sp cx MRSA, C. albicans (likely colonizers as no PNA on CXR) Acute encephalopathy -CT brain wo: Chronic and age-related changes as described. Postsurgical changes with underlying temporal, parietal, and frontal encephalomalacia. 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 No contrast enhancement to suggest recurrent tumor is evident currently. There is evidence of old peripheral hemorrhage, presumably related to the prior surgery. 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 Negative for acute intracranial bleed, mass effect, infarct, or contrast enhancing lesion. Chronic and age-related changes, as described CVA w/ R hemiparesis and aphasia HTN HLD BPH Dm2 s/p appendectomy s/p tonsillectomy CAD seizure disorder SNF resident Plan: - Continue IV Vancomycin # and cont IV zosyn d# 09/19 - 10/19 Sp Ceftriaxone #8 (abx d# 04/01-14) for UTI and for wound infection -10/12 SP Cefepime #3 -Monitor CBC/CMP, temperatures -wound care per surgical team -aspiration precautions -Sx f/u -f/u wound cx Subjective Allergies: Coded Allergies: No Known Allergies (Unverified , 09/27/18) Subjective Afebrile Objective Vital Signs Last 24 Hour Vital Signs Date Time Temp Pulse Resp B/P (MAP) Pulse Ox O2 Delivery O2 Flow Rate FiO2 10/21/18 15:06 94 10/21/18 12:00 97.5 94 20 125/76 (92) 97 10/21/18 09:42 100 10/21/18 09:42 100 132/80 10/21/18 09:00 Room Air Room Air 10/21/18 08:00 97.5 100 18 132/80 (97) 98 10/21/18 04:00 98.2 94 18 108/71 (83) 96 10/21/18 00:00 97.2 90 18 111/72 (85) 96 10/20/18 21:00 Room Air Room Air 10/20/18 21:00 96 133/73 10/20/18 20:00 98.5 96 17 133/73 (93) 96 Height (Feet): 5 Height (Inches): 7.00 Weight (Pounds): 155 HEENT: anicteric Respiratory/Chest: no accessory muscle use Cardiovascular: regularly irregular Abdomen: no organomegaly Laboratory Tests Test 10/21/18 04:47 White Blood Count 4.1 K/UL (4.8-10.8) L Red Blood Count 2.72 M/UL (4.70-6.10) L Hemoglobin 8.6 G/DL (14.2-18.0) L Hematocrit 24.4 % (42.0-52.0) L Mean Corpuscular Volume 90 FL (80-99) Mean Corpuscular Hemoglobin 31.7 PG (27.0-31.0) H Mean Corpuscular Hemoglobin Concent 35.4 G/DL (32.0-36.0) Red Cell Distribution Width 12.7 % (11.6-14.8) Platelet Count 169 K/UL (150-450) Mean Platelet Volume 5.5 FL (6.5-10.1) L Neutrophils (%) (Auto) % (45.0-75.0) Lymphocytes (%) (Auto) % (20.0-45.0) Monocytes (%) (Auto) % (1.0-10.0) Eosinophils (%) (Auto) % (0.0-3.0) Basophils (%) (Auto) % (0.0-2.0) Differential Total Cells Counted 100 Neutrophils % (Manual) 92 % (45-75) H Lymphocytes % (Manual) 6 % (20-45) L Monocytes % (Manual) 2 % (1-10) Eosinophils % (Manual) 0 % (0-3) Basophils % (Manual) 0 % (0-2) Band Neutrophils 0 % (0-8) Platelet Estimate Adequate Platelet Morphology Normal Polychromasia 1+ Prothrombin Time 11.9 SEC (9.30-11.50) H Prothromb Time International Ratio 1.1 (0.9-1.1) Activated Partial Thromboplast Time 39 SEC (23-33) H Sodium Level 135 MMOL/L (136-145) L Potassium Level 4.0 MMOL/L (3.5-5.1) Chloride Level 101 MMOL/L (98-107) Carbon Dioxide Level 31 MMOL/L (21-32) Anion Gap 3 mmol/L (5-15) L Blood Urea Nitrogen 11 mg/dL (7-18) Creatinine 0.6 MG/DL (0.55-1.30) Estimat Glomerular Filtration Rate > 60 mL/min (>60) Glucose Level 239 MG/DL (74-106) H Calcium Level 8.0 MG/DL (8.5-10.1) L Current Medications Medications (Trade) Dose Ordered Sig/Chace Route PRN Reason Start Time Stop Time Status Last Admin Dose Admin Acetaminophen (Tylenol) 650 mg Q4H PRN ORAL T>100.5 10/13/18 16:30 11/09/18 16:29 Carvedilol (Coreg) 12.5 mg EVERY 12 HOURS NG 10/13/18 21:00 11/12/18 08:59 10/21/18 09:42 Dexamethasone Sodium Phosphate (Decadron 4mg/ml vial) 4 mg Q6H IVP 10/20/18 14:30 11/19/18 14:29 10/21/18 14:42 Dextrose (Dextrose 50%) 25 ml Q30M PRN IV Hypoglycemia 10/21/18 06:45 11/20/18 06:44 Dextrose (Dextrose 50%) 50 ml Q30M PRN IV Hypoglycemia 10/21/18 06:45 11/20/18 06:44 Digoxin (Lanoxin) 0.25 mg DAILY ORAL 10/20/18 09:00 11/19/18 08:59 10/21/18 09:42 Heparin Sodium (Porcine) (Heparin 5000 units/ml) 5,000 units EVERY 12 HOURS SUBQ 10/13/18 21:00 11/09/18 20:59 10/21/18 09:44 Insulin Aspart (NovoLOG) EVERY 6 HOURS SUBQ 10/14/18 18:00 11/09/18 16:29 10/21/18 13:02 Insulin Detemir (Levemir) 6 units DAILY SUBQ 10/21/18 09:00 11/20/18 08:59 10/21/18 09:45 Lorazepam (Ativan 2mg/ml 1ml) 1 mg Q2H PRN IV For Anxiety 10/16/18 16:22 10/23/18 16:21 Ondansetron HCl (Zofran) 4 mg Q6H PRN IVP Nausea & Vomiting 10/13/18 16:30 11/09/18 16:29 Pantoprazole (Protonix) 40 mg EVERY 12 HOURS ORAL 10/21/18 21:00 11/20/18 20:59 Piperacillin Sod/ Tazobactam Sod 3.375 gm/Sodium Chloride 110 ml @ 27.5 mls/hr EVERY 8 HOURS IVPB 10/19/18 14:00 10/24/18 13:59 10/21/18 13:04 Polyethylene Glycol (Miralax) 17 gm DAILYPRN PRN ORAL Constipation 10/13/18 16:30 11/12/18 16:29 Promethazine HCl/ Codeine (Phenergan with Codeine) 5 ml Q4H PRN ORAL For Cough 10/13/18 16:30 11/09/18 16:29 Vancomycin HCl (Vanco rx to dose) 1 ea DAILY PRN MISC . 10/14/18 09:00 11/09/18 13:29 Vancomycin HCl 750 mg/Sodium Chloride 275 ml @ 183.333 mls/hr Q8H IVPB 10/18/18 06:00 10/23/18 05:59 10/21/18 14:43 Alex Carias MD October 21, 2018 16:18
[2018-10-21] MEDS ORDERED: VANCOMYCIN HCL125 MG PO (19:07)
[2018-10-21] MEDS ORDERED: VANCOMYCIN HCL125 MG IV (19:09)
[2018-10-21 20:00] VITALS: BP 121/74
--- NOTE | 2018-10-21 23:24 | Neurology Progress Note ---
Interim History Interim History ROS Limited/Unobtainable: No Complaints: Seizure/ AMS Events: THIS VISIT WAS CONDUCTED ON October 21, 2018. Objective Physical Exam Last Vital Signs Date Time Temp Pulse Resp B/P (MAP) Pulse Ox O2 Delivery O2 Flow Rate FiO2 10/21/18 22:39 96 121/74 10/21/18 21:00 Room Air Room Air 10/21/18 20:00 98.5 20 97 10/19/18 21:00 10.0 10.0 10/19/18 20:10 40 Laboratory Tests Test 10/21/18 04:47 White Blood Count 4.1 K/UL (4.8-10.8) L Red Blood Count 2.72 M/UL (4.70-6.10) L Hemoglobin 8.6 G/DL (14.2-18.0) L Hematocrit 24.4 % (42.0-52.0) L Mean Corpuscular Volume 90 FL (80-99) Mean Corpuscular Hemoglobin 31.7 PG (27.0-31.0) H Mean Corpuscular Hemoglobin Concent 35.4 G/DL (32.0-36.0) Red Cell Distribution Width 12.7 % (11.6-14.8) Platelet Count 169 K/UL (150-450) Mean Platelet Volume 5.5 FL (6.5-10.1) L Neutrophils (%) (Auto) % (45.0-75.0) Lymphocytes (%) (Auto) % (20.0-45.0) Monocytes (%) (Auto) % (1.0-10.0) Eosinophils (%) (Auto) % (0.0-3.0) Basophils (%) (Auto) % (0.0-2.0) Differential Total Cells Counted 100 Neutrophils % (Manual) 92 % (45-75) H Lymphocytes % (Manual) 6 % (20-45) L Monocytes % (Manual) 2 % (1-10) Eosinophils % (Manual) 0 % (0-3) Basophils % (Manual) 0 % (0-2) Band Neutrophils 0 % (0-8) Platelet Estimate Adequate Platelet Morphology Normal Polychromasia 1+ Prothrombin Time 11.9 SEC (9.30-11.50) H Prothromb Time International Ratio 1.1 (0.9-1.1) Activated Partial Thromboplast Time 39 SEC (23-33) H Sodium Level 135 MMOL/L (136-145) L Potassium Level 4.0 MMOL/L (3.5-5.1) Chloride Level 101 MMOL/L (98-107) Carbon Dioxide Level 31 MMOL/L (21-32) Anion Gap 3 mmol/L (5-15) L Blood Urea Nitrogen 11 mg/dL (7-18) Creatinine 0.6 MG/DL (0.55-1.30) Estimat Glomerular Filtration Rate > 60 mL/min (>60) Glucose Level 239 MG/DL (74-106) H Calcium Level 8.0 MG/DL (8.5-10.1) L General: well developed, well nourished Head: normocophalic Neck: no rigidity EENT: benign Neurologic Exam Mental Status: other - REmains obtunded with intermittent eye opening and preferential gaze to the left - w/d x 4 PERLL - visual joe unable to be obtained but partial hemianopia also suspected on the right side. Speech: other Cranial Nerve II: other Cranial Nerves III, IV, : PERRLA, EOMI, pupils Cranial Nerve VII: other - Some baseline facial asymmetry - due to previous infarct Cranial Nerve IX: normal palate elevation Cranial Nerve XI: SCM symmetric Motor System: normal muscle tone Sensory: normal pinprick, normal light touch, other - Some sensory loss on right side but not completely - requiring increased intensity of stimuli to be felt though. Deep Tendon Reflexes: 2+ bicep (L), 2+ bicep (R), 2+ tricep (L), 2+ tricep (R) , 2+ brachioradialis (L), 2+ brachioradialis (R), 2+ knee (L), 2+ knee (R), 2+ ankle (L), 2+ ankle (R) Stance: normal Gait: stable, normal regular, heel + toe gait Objective Awake and alert now but not following commands and non verbal- only making sounds Localizing on left side/ withdrawal only on right side . Impression/Recommendations Problems: (1) Acute encephalopathy Assessment & Plan: Q4 Hour Neuro OBs (2) acute toxic encephalopathy Assessment & Plan: Frequent stimulation of patient Q 4 hour neuro obs (3) Altered level of consciousness Assessment & Plan: PT/ OT Eval Na 135-145 OOB to chair as soon as able. Abx as per ID team Maintain normothermia with Tylenol / coolling blanket as need. MRI Brain w/wo contrast EEG as outpatient (4) Sepsis Assessment & Plan: Treat with IV abx as per ID (5) Brain tumor Assessment & Plan: MRI Brain w/ Contrast for investigation of recurrent primary tumor . CT taken in September did not demonstrate mass effect but also not the most sensitive test for detecting intraparenchymal masses. MRI 10/12/18 Encephalomalacia of the left anterior temporal lobe and adjacent frontal and parietal opercula; reportedly, this was for resection of an oligodendroglioma. No contrast enhancement to suggest recurrent tumor is evident currently. There is evidence of old peripheral hemorrhage, presumably related to the prior surgery. 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 MRI Brain w/wo for investigation of new CVA vs Mass (7) Diabetes mellitus Assessment & Plan: Normoglycemia with ISS (8) Hypertension Assessment & Plan: Maintain SBP<140 with antiHTN meds. 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 No contrast enhancement to suggest recurrent tumor is evident currently. There is evidence of old peripheral hemorrhage, presumably related to the prior surgery. 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 Now on 500mg BID - Will monitor for seizure activity - Renewed Q4 hour neuro obs DR. JIMENEZ will discuss MRI and managment with patient's neuro-oncologist Dr. Naldo Wiseman at [facility] Vidya Sun N.P. October 21, 2018 23:24
[2018-10-22] VITALS: BP 129/76
[2018-10-22] MEDS: Dexamethasone 4mg/ml vial IVP SCH ×2 (02:33→09:27)
[2018-10-22 04:00] VITALS: BP 151/77
[2018-10-22] MEDS: Piperacillin/Tazobactam 3.375 GM in NS 110 ML IVPB SCH (05:23)
[2018-10-22] MEDS: Vancomycin 750mg/NS 275ml IVPB SCH ×2 (05:24)
[2018-10-22] MEDS: NovoLOG Insulin Flexpen SUBQ SCH ×3 (05:24→12:00)
--- NOTE | 2018-10-22 06:49 | General Progress Note ---
Assessment/Plan Problem List: (1) Brain tumor ICD Codes: D49.6 - Neoplasm of unspecified behavior of brain SNOMED: 132475297 (2) Altered level of consciousness ICD Codes: R40.4 - Transient alteration of awareness SNOMED: 1634779 (3) Diabetes mellitus ICD Codes: E11.9 - Type 2 diabetes mellitus without complications SNOMED: 92669412 (4) Hypertension ICD Codes: I10 - Essential (primary) hypertension SNOMED: 45632117 Status: stable Assessment/Plan: increase Levemir to 10 units daily continue NISS every 6 hours Subjective ROS Limited/Unobtainable: Yes Allergies: Coded Allergies: No Known Allergies (Unverified , 09/27/18) Subjective events noted Item Value Date Time Bedside Blood Glucose 190 mg/dl H 10/22/18 0524 Bedside Blood Glucose 185 mg/dl H 10/21/18 1736 Bedside Blood Glucose 254 mg/dl H 10/21/18 1302 Bedside Blood Glucose 235 mg/dl H 10/21/18 0945 Bedside Blood Glucose 235 mg/dl H 10/21/18 0619 Bedside Blood Glucose 248 mg/dl H 10/21/18 0043 Objective Last 24 Hour Vital Signs Date Time Temp Pulse Resp B/P (MAP) Pulse Ox O2 Delivery O2 Flow Rate FiO2 10/22/18 04:00 98.4 72 18 151/77 (101) 100 10/22/18 00:00 98.6 77 17 129/76 (93) 98 10/21/18 22:39 96 121/74 10/21/18 21:00 Room Air Room Air 10/21/18 20:00 98.5 96 20 121/74 (90) 97 10/21/18 16:00 97.5 82 20 116/70 (85) 97 10/21/18 15:06 94 10/21/18 12:00 97.5 94 20 125/76 (92) 97 10/21/18 09:42 100 10/21/18 09:42 100 132/80 10/21/18 09:00 Room Air Room Air 10/21/18 08:00 97.5 100 18 132/80 (97) 98 Intake and Output 10/21/18 10/22/18 19:00 07:00 Intake Total 1543.332 ml 385.000 ml Output Total 600 ml Balance 943.332 ml 385.000 ml Intake Oral 240 ml IV Total 1303.332 ml 385.000 ml Output Urine Total 600 ml # Bowel Movements 2 Height (Feet): 5 Height (Inches): 7.00 Weight (Pounds): 155 General Appearance: no apparent distress Neck: normal alignment Cardiovascular: normal rate Respiratory/Chest: decreased breath sounds Abdomen: normal bowel sounds Objective Current Medications Medications (Trade) Dose Ordered Sig/Chace Route PRN Reason Start Time Stop Time Status Last Admin Dose Admin Acetaminophen (Tylenol) 650 mg Q4H PRN ORAL T>100.5 10/13/18 16:30 11/09/18 16:29 Carvedilol (Coreg) 12.5 mg EVERY 12 HOURS NG 10/13/18 21:00 11/12/18 08:59 10/21/18 22:39 Dexamethasone Sodium Phosphate (Decadron 4mg/ml vial) 4 mg Q6H IVP 10/20/18 14:30 11/19/18 14:29 10/22/18 02:33 Dextrose (Dextrose 50%) 25 ml Q30M PRN IV Hypoglycemia 10/21/18 06:45 11/20/18 06:44 Dextrose (Dextrose 50%) 50 ml Q30M PRN IV Hypoglycemia 10/21/18 06:45 11/20/18 06:44 Digoxin (Lanoxin) 0.25 mg DAILY ORAL 10/20/18 09:00 11/19/18 08:59 10/21/18 09:42 Heparin Sodium (Porcine) (Heparin 5000 units/ml) 5,000 units EVERY 12 HOURS SUBQ 10/13/18 21:00 11/09/18 20:59 10/21/18 22:41 Insulin Aspart (NovoLOG) EVERY 6 HOURS SUBQ 10/14/18 18:00 11/09/18 16:29 10/22/18 05:24 Insulin Detemir (Levemir) 6 units DAILY SUBQ 10/21/18 09:00 11/20/18 08:59 10/21/18 09:45 Lorazepam (Ativan 2mg/ml 1ml) 1 mg Q2H PRN IV For Anxiety 10/16/18 16:22 10/23/18 16:21 Ondansetron HCl (Zofran) 4 mg Q6H PRN IVP Nausea & Vomiting 10/13/18 16:30 11/09/18 16:29 Pantoprazole (Protonix) 40 mg EVERY 12 HOURS ORAL 10/21/18 21:00 11/20/18 20:59 10/21/18 22:39 Piperacillin Sod/ Tazobactam Sod 3.375 gm/Sodium Chloride 110 ml @ 27.5 mls/hr EVERY 8 HOURS IVPB 10/19/18 14:00 10/24/18 13:59 10/22/18 05:23 Polyethylene Glycol (Miralax) 17 gm DAILYPRN PRN ORAL Constipation 10/13/18 16:30 11/12/18 16:29 Promethazine HCl/ Codeine (Phenergan with Codeine) 5 ml Q4H PRN ORAL For Cough 10/13/18 16:30 11/09/18 16:29 Vancomycin HCl (Vanco rx to dose) 1 ea DAILY PRN MISC . 10/14/18 09:00 11/09/18 13:29 Vancomycin HCl 750 mg/Sodium Chloride 275 ml @ 183.333 mls/hr Q8H IVPB 10/18/18 06:00 10/23/18 05:59 10/22/18 05:24 Richard Lugo MD October 22, 2018 06:49
[2018-10-22 08:00] VITALS: BP 132/78
[2018-10-22] MEDS ORDERED: Levemir Flexpen SUBQ SCH (09:00)
[2018-10-22] MEDS: Carvedilol 12.5mg tab NG SCH (09:28)
[2018-10-22] MEDS: Heparin 5000 units/ml inj SUBQ SCH (09:29)
[2018-10-22 09:53] LABS: HEMATOCRIT 27.1 % (42.0-52.0); HEMOGLOBIN 9.3 G/DL (14.2-18.0); MEAN CORPUSCULAR VOLUME 90 FL (80-99); PLATELET COUNT 251 K/UL (150-450); RED CELL DISTRIBUTION WIDTH 12.9 % (11.6-14.8); WHITE BLOOD COUNT 5.4 K/UL (4.8-10.8)
[2018-10-22 10:15] LABS: ANION GAP 2 mmol/L (5-15); BLOOD UREA NITROGEN 13 mg/dL (7-18); CALCIUM 8.2 MG/DL (8.5-10.1); CARBON DIOXIDE 33 MMOL/L (21-32); CHLORIDE 103 MMOL/L (98-107); CREATININE 0.6 MG/DL (0.55-1.30); POTASSIUM 4.1 MMOL/L (3.5-5.1); SODIUM 138 MMOL/L (136-145)
[2018-10-22 10:46] LABS: ALANINE AMINOTRANSFERASE 19 U/L (12-78); ALBUMIN 1.7 G/DL (3.4-5.0); ALKALINE PHOSPHATASE 58 U/L (46-116); ASPARTATE AMINO TRANSFERASE 19 U/L (15-37); BILIRUBIN,DIRECT 0.1 MG/DL (0.0-0.3); BILIRUBIN,TOTAL 0.4 MG/DL (0.2-1.0); PHOSPHORUS 2.7 MG/DL (2.5-4.9)
--- NOTE | 2018-10-22 11:31 | GI Progress Note ---
Assessment/Plan Problems: (1) PEG (percutaneous endoscopic gastrostomy) adjustment/replacement/removal ICD Codes: Z43.1 - Encounter for attention to gastrostomy SNOMED: 023636678, 115121957 (2) Severe malnutrition ICD Codes: E43 - Unspecified severe protein-calorie malnutrition SNOMED: 24496345 (3) Dysphagia ICD Codes: R13.10 - Dysphagia, unspecified SNOMED: 18267574, 577346712 (4) Anemia ICD Codes: D64.9 - Anemia, unspecified SNOMED: 615555357 Status: stable Status Narrative Discussed with Dr. Burnett Assessment/Plan Patient passed ST evaluation, on mechanical soft diet Will defer PEG, family also wishing to advance diet Okay to advance diet per ST PT evaluation Strict aspiration precautions prn transfusions ppi follow labs dc planning The patient was seen and examined at bedside and all new and available data was reviewed in the patients chart. I agree with the above findings, impression and plan. (Patient seen earlier today. Signature stamp does not reflect patient encounter time.). - Baldev Burnett MD Subjective Gastrointestinal/Abdominal: Reports: no symptoms Objective Last 24 Hour Vital Signs Date Time Temp Pulse Resp B/P (MAP) Pulse Ox O2 Delivery O2 Flow Rate FiO2 10/22/18 09:28 69 132/78 10/22/18 09:27 69 10/22/18 08:30 Room Air Room Air 10/22/18 08:00 98.4 69 18 132/78 (96) 95 10/22/18 04:00 98.4 72 18 151/77 (101) 100 10/22/18 00:00 98.6 77 17 129/76 (93) 98 10/21/18 22:39 96 121/74 10/21/18 21:00 Room Air Room Air 10/21/18 20:00 98.5 96 20 121/74 (90) 97 10/21/18 16:00 97.5 82 20 116/70 (85) 97 10/21/18 15:06 94 10/21/18 12:00 97.5 94 20 125/76 (92) 97 Intake and Output 10/21/18 10/22/18 19:00 07:00 Intake Total 1543.332 ml 835.833 ml Output Total 600 ml 1200 ml Balance 943.332 ml -364.167 ml Intake Oral 240 ml 240 ml IV Total 1303.332 ml 595.833 ml Output Urine Total 600 ml 1200 ml # Bowel Movements 2 Laboratory Tests Test 10/22/18 09:30 White Blood Count 5.4 K/UL (4.8-10.8) Red Blood Count 3.00 M/UL (4.70-6.10) L Hemoglobin 9.3 G/DL (14.2-18.0) L Hematocrit 27.1 % (42.0-52.0) L Mean Corpuscular Volume 90 FL (80-99) Mean Corpuscular Hemoglobin 31.1 PG (27.0-31.0) H Mean Corpuscular Hemoglobin Concent 34.5 G/DL (32.0-36.0) Red Cell Distribution Width 12.9 % (11.6-14.8) Platelet Count 251 K/UL (150-450) Mean Platelet Volume 5.4 FL (6.5-10.1) L Neutrophils (%) (Auto) % (45.0-75.0) Lymphocytes (%) (Auto) % (20.0-45.0) Monocytes (%) (Auto) % (1.0-10.0) Eosinophils (%) (Auto) % (0.0-3.0) Basophils (%) (Auto) % (0.0-2.0) Neutrophils % (Manual) Pending Lymphocytes % (Manual) Pending Platelet Estimate Pending Platelet Morphology Pending Sodium Level 138 MMOL/L (136-145) Potassium Level 4.1 MMOL/L (3.5-5.1) Chloride Level 103 MMOL/L (98-107) Carbon Dioxide Level 33 MMOL/L (21-32) H Anion Gap 2 mmol/L (5-15) L Blood Urea Nitrogen 13 mg/dL (7-18) Creatinine 0.6 MG/DL (0.55-1.30) Estimat Glomerular Filtration Rate > 60 mL/min (>60) Glucose Level 179 MG/DL (74-106) H Osmolality 294 mOsm/kg (297-317) L Uric Acid 1.3 MG/DL (2.6-7.2) L Calcium Level 8.2 MG/DL (8.5-10.1) L Phosphorus Level 2.7 MG/DL (2.5-4.9) Magnesium Level 1.9 MG/DL (1.8-2.4) Total Bilirubin 0.4 MG/DL (0.2-1.0) Direct Bilirubin 0.1 MG/DL (0.0-0.3) Aspartate Amino Transf (AST/SGOT) 19 U/L (15-37) Alanine Aminotransferase (ALT/SGPT) 19 U/L (12-78) Alkaline Phosphatase 58 U/L (46-116) Total Protein 5.8 G/DL (6.4-8.2) L Albumin 1.7 G/DL (3.4-5.0) L Microbiology Date/Time Source Procedure Growth Status 10/21/18 18:20 Sacral Abscess Gram Stain - Final Resulted 10/21/18 18:20 Sacral Abscess Wound Culture Pending Resulted Height (Feet): 5 Height (Inches): 7.00 Weight (Pounds): 155 General Appearance: WD/WN, no apparent distress, alert Cardiovascular: normal rate Respiratory/Chest: normal breath sounds, no respiratory distress Abdominal Exam: normal bowel sounds, non tender, soft Extremities: non-tender Benny Pham FUSION ANALYST October 22, 2018 11:30
[2018-10-22 12:00] VITALS: BP 129/74
--- NOTE | 2018-10-22 12:36 | Pulmonology Progress Note ---
Assessment/Plan Problems: (1) acute toxic encephalopathy (2) Sepsis (3) Brain tumor (4) Sacral decubitus ulcer (5) Hypertension (6) Diabetes mellitus (7) History of CVA (cerebrovascular accident) Assessment/Plan pt woke up. eating well. MRI of brain done Encephalomalacia of the left anterior temporal lobe and adjacent frontal and parietal opercula; f/u cultures continue abx sliding scale monitor BP dc to intermediate Subjective ROS Limited/Unobtainable: No Constitutional: Reports: no symptoms HEENT: Repors: no symptoms Allergies: Coded Allergies: No Known Allergies (Unverified , 09/27/18) Objective Last 24 Hour Vital Signs Date Time Temp Pulse Resp B/P (MAP) Pulse Ox O2 Delivery O2 Flow Rate FiO2 10/22/18 12:00 97.9 70 18 129/74 (92) 96 10/22/18 09:28 69 132/78 10/22/18 09:27 69 10/22/18 08:30 Room Air Room Air 10/22/18 08:00 98.4 69 18 132/78 (96) 95 10/22/18 04:00 98.4 72 18 151/77 (101) 100 10/22/18 00:00 98.6 77 17 129/76 (93) 98 10/21/18 22:39 96 121/74 10/21/18 21:00 Room Air Room Air 10/21/18 20:00 98.5 96 20 121/74 (90) 97 10/21/18 16:00 97.5 82 20 116/70 (85) 97 10/21/18 15:06 94 Intake and Output 10/21/18 10/22/18 19:00 07:00 Intake Total 1543.332 ml 835.833 ml Output Total 600 ml 1200 ml Balance 943.332 ml -364.167 ml Intake Oral 240 ml 240 ml IV Total 1303.332 ml 595.833 ml Output Urine Total 600 ml 1200 ml # Bowel Movements 2 Objective General Appearance: WD/WN HEENT: normocephalic, atraumatic Respiratory/Chest: chest wall non-tender, normal breath sounds Cardiovascular: normal peripheral pulses, normal rate Abdomen: normal bowel sounds, soft, non tender, no organomegaly, non distended Extremities: no cyanosis Skin: no rash, no lesions, no ulcers Microbiology Date/Time Source Procedure Growth Status 10/21/18 18:20 Sacral Abscess Gram Stain - Final Resulted 10/21/18 18:20 Wound Culture - Preliminary Gram Negative Bacillus 1 Resulted Laboratory Tests 10/22/18 09:30: White Blood Count 5.4, Red Blood Count 3.00L, Hemoglobin 9.3L, Hematocrit 27.1L , Mean Corpuscular Volume 90, Mean Corpuscular Hemoglobin 31.1H, Mean Corpuscular Hemoglobin Concent 34.5, Red Cell Distribution Width 12.9, Platelet Count 251, Mean Platelet Volume 5.4L, Neutrophils (%) (Auto) , Lymphocytes (%) ( Auto) , Monocytes (%) (Auto) , Eosinophils (%) (Auto) , Basophils (%) (Auto) , Neutrophils % (Manual) [Pending], Lymphocytes % (Manual) [Pending], Platelet Estimate [Pending], Platelet Morphology [Pending], Sodium Level 138, Potassium Level 4.1, Chloride Level 103, Carbon Dioxide Level 33H, Anion Gap 2L, Blood Urea Nitrogen 13, Creatinine 0.6, Estimat Glomerular Filtration Rate > 60, Glucose Level 179H, Osmolality 294L, Uric Acid 1.3L, Calcium Level 8.2L, Phosphorus Level 2.7, Magnesium Level 1.9, Total Bilirubin 0.4, Direct Bilirubin 0.1, Aspartate Amino Transf (AST/SGOT) 19, Alanine Aminotransferase ( ALT/SGPT) 19, Alkaline Phosphatase 58, Total Protein 5.8L, Albumin 1.7L Current Medications Medications (Trade) Dose Ordered Sig/Chace Route PRN Reason Start Time Stop Time Status Last Admin Dose Admin Acetaminophen (Tylenol) 650 mg Q4H PRN ORAL T>100.5 10/13/18 16:30 11/09/18 16:29 Carvedilol (Coreg) 12.5 mg EVERY 12 HOURS NG 10/13/18 21:00 11/12/18 08:59 10/22/18 09:28 Dexamethasone Sodium Phosphate (Decadron 4mg/ml vial) 4 mg Q6H IVP 10/20/18 14:30 11/19/18 14:29 10/22/18 09:27 Dextrose (Dextrose 50%) 25 ml Q30M PRN IV Hypoglycemia 10/21/18 06:45 11/20/18 06:44 Dextrose (Dextrose 50%) 50 ml Q30M PRN IV Hypoglycemia 10/21/18 06:45 11/20/18 06:44 Digoxin (Lanoxin) 0.25 mg DAILY ORAL 10/20/18 09:00 11/19/18 08:59 10/22/18 09:27 Heparin Sodium (Porcine) (Heparin 5000 units/ml) 5,000 units EVERY 12 HOURS SUBQ 10/13/18 21:00 11/09/18 20:59 10/22/18 09:29 Insulin Aspart (NovoLOG) EVERY 6 HOURS SUBQ 10/14/18 18:00 11/09/18 16:29 10/22/18 05:24 Insulin Detemir (Levemir) 10 units DAILY SUBQ 10/22/18 09:00 11/20/18 08:59 10/22/18 09:00 Lorazepam (Ativan 2mg/ml 1ml) 1 mg Q2H PRN IV For Anxiety 10/16/18 16:22 10/23/18 16:21 Ondansetron HCl (Zofran) 4 mg Q6H PRN IVP Nausea & Vomiting 10/13/18 16:30 11/09/18 16:29 Pantoprazole (Protonix) 40 mg EVERY 12 HOURS ORAL 10/21/18 21:00 11/20/18 20:59 10/22/18 09:28 Piperacillin Sod/ Tazobactam Sod 3.375 gm/Sodium Chloride 110 ml @ 27.5 mls/hr EVERY 8 HOURS IVPB 10/19/18 14:00 10/24/18 13:59 10/22/18 05:23 Polyethylene Glycol (Miralax) 17 gm DAILYPRN PRN ORAL Constipation 10/13/18 16:30 11/12/18 16:29 Promethazine HCl/ Codeine (Phenergan with Codeine) 5 ml Q4H PRN ORAL For Cough 10/13/18 16:30 11/09/18 16:29 Vancomycin HCl (Vanco rx to dose) 1 ea DAILY PRN MISC . 10/14/18 09:00 11/09/18 13:29 Vancomycin HCl 750 mg/Sodium Chloride 275 ml @ 183.333 mls/hr Q8H IVPB 10/18/18 06:00 10/23/18 05:59 10/22/18 05:24 Raul Feng MD October 22, 2018 12:36
--- NOTE | 2018-10-22 13:16 | Infectious Diseases Prog Note ---
Assessment/Plan Assessment/Plan Assessment: Sepsis Probable UTI -u/a wbc 30-40, nit neg, leuk +3; ucx >100K E.coli (R Cipro/Levo; otherwise) Gram positive bacteremia, -10/10 BCx 09/24 S. hominis, S. epi; 10/13 Bcx NTD -2d Echo: no vegetations seen Infected Sacral decubitus ulcer ( Path findings : acute OM ) Wnd CX : GNR -10/13 SP Excision of sacral pressure ulcer with coccygectomy and ostectomy. Afebrile Pancytopenia Acute respiratory failure on VM- no obvious PNA on CXR -CXR: Minimal left midlung atelectasis. No acute process otherwise Satisfactory nasogastric intubation, also demonstrated on recent abdomen radiograph -sp cx MRSA, C. albicans (likely colonizers as no PNA on CXR) passed ST evaluation, Acute encephalopathy -CT brain wo: Chronic and age-related changes as described. Postsurgical changes with underlying temporal, parietal, and frontal encephalomalacia. 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 No contrast enhancement to suggest recurrent tumor is evident currently. There is evidence of old peripheral hemorrhage, presumably related to the prior surgery. 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 Negative for acute intracranial bleed, mass effect, infarct, or contrast enhancing lesion. Chronic and age-related changes, as described CVA w/ R hemiparesis and aphasia HTN HLD BPH Dm2 s/p appendectomy s/p tonsillectomy CAD seizure disorder SNF resident Plan: - Continue IV Vancomycin # / and cont IV Zosyn d# 10/20 - 10/19 Sp Ceftriaxone #8 (abx d# 04/01-14) for UTI and for wound infection -10/12 SP Cefepime #3 -Monitor CBC/CMP, temperatures -wound care per surgical team -aspiration precautions -Sx f/u -f/u wound cx Subjective Allergies: Coded Allergies: No Known Allergies (Unverified , 09/27/18) Subjective comfortable Afebrile Objective Vital Signs Last 24 Hour Vital Signs Date Time Temp Pulse Resp B/P (MAP) Pulse Ox O2 Delivery O2 Flow Rate FiO2 10/22/18 12:00 97.9 70 18 129/74 (92) 96 10/22/18 09:28 69 132/78 10/22/18 09:27 69 10/22/18 08:30 Room Air Room Air 10/22/18 08:00 98.4 69 18 132/78 (96) 95 10/22/18 04:00 98.4 72 18 151/77 (101) 100 10/22/18 00:00 98.6 77 17 129/76 (93) 98 10/21/18 22:39 96 121/74 10/21/18 21:00 Room Air Room Air 10/21/18 20:00 98.5 96 20 121/74 (90) 97 10/21/18 16:00 97.5 82 20 116/70 (85) 97 10/21/18 15:06 94 Height (Feet): 5 Height (Inches): 7.00 Weight (Pounds): 155 HEENT: atraumatic Respiratory/Chest: no respiratory distress Cardiovascular: regularly irregular Microbiology Date/Time Source Procedure Growth Status 10/21/18 18:20 Sacral Abscess Gram Stain - Final Resulted 10/21/18 18:20 Wound Culture - Preliminary Gram Negative Bacillus 1 Resulted Laboratory Tests Test 10/22/18 09:30 White Blood Count 5.4 K/UL (4.8-10.8) Red Blood Count 3.00 M/UL (4.70-6.10) L Hemoglobin 9.3 G/DL (14.2-18.0) L Hematocrit 27.1 % (42.0-52.0) L Mean Corpuscular Volume 90 FL (80-99) Mean Corpuscular Hemoglobin 31.1 PG (27.0-31.0) H Mean Corpuscular Hemoglobin Concent 34.5 G/DL (32.0-36.0) Red Cell Distribution Width 12.9 % (11.6-14.8) Platelet Count 251 K/UL (150-450) Mean Platelet Volume 5.4 FL (6.5-10.1) L Neutrophils (%) (Auto) % (45.0-75.0) Lymphocytes (%) (Auto) % (20.0-45.0) Monocytes (%) (Auto) % (1.0-10.0) Eosinophils (%) (Auto) % (0.0-3.0) Basophils (%) (Auto) % (0.0-2.0) Differential Total Cells Counted 100 Neutrophils % (Manual) 82 % (45-75) H Lymphocytes % (Manual) 7 % (20-45) L Monocytes % (Manual) 3 % (1-10) Eosinophils % (Manual) 0 % (0-3) Basophils % (Manual) 0 % (0-2) Band Neutrophils 8 % (0-8) Platelet Estimate Adequate Platelet Morphology Normal Red Blood Cell Morphology Normal Sodium Level 138 MMOL/L (136-145) Potassium Level 4.1 MMOL/L (3.5-5.1) Chloride Level 103 MMOL/L (98-107) Carbon Dioxide Level 33 MMOL/L (21-32) H Anion Gap 2 mmol/L (5-15) L Blood Urea Nitrogen 13 mg/dL (7-18) Creatinine 0.6 MG/DL (0.55-1.30) Estimat Glomerular Filtration Rate > 60 mL/min (>60) Glucose Level 179 MG/DL (74-106) H Osmolality 294 mOsm/kg (297-317) L Uric Acid 1.3 MG/DL (2.6-7.2) L Calcium Level 8.2 MG/DL (8.5-10.1) L Phosphorus Level 2.7 MG/DL (2.5-4.9) Magnesium Level 1.9 MG/DL (1.8-2.4) Total Bilirubin 0.4 MG/DL (0.2-1.0) Direct Bilirubin 0.1 MG/DL (0.0-0.3) Aspartate Amino Transf (AST/SGOT) 19 U/L (15-37) Alanine Aminotransferase (ALT/SGPT) 19 U/L (12-78) Alkaline Phosphatase 58 U/L (46-116) Total Protein 5.8 G/DL (6.4-8.2) L Albumin 1.7 G/DL (3.4-5.0) L Current Medications Medications (Trade) Dose Ordered Sig/Chace Route PRN Reason Start Time Stop Time Status Last Admin Dose Admin Acetaminophen (Tylenol) 650 mg Q4H PRN ORAL T>100.5 10/13/18 16:30 11/09/18 16:29 Carvedilol (Coreg) 12.5 mg EVERY 12 HOURS NG 10/13/18 21:00 11/12/18 08:59 10/22/18 09:28 Dexamethasone Sodium Phosphate (Decadron 4mg/ml vial) 4 mg Q6H IVP 10/20/18 14:30 11/19/18 14:29 10/22/18 09:27 Dextrose (Dextrose 50%) 25 ml Q30M PRN IV Hypoglycemia 10/21/18 06:45 11/20/18 06:44 Dextrose (Dextrose 50%) 50 ml Q30M PRN IV Hypoglycemia 10/21/18 06:45 11/20/18 06:44 Digoxin (Lanoxin) 0.25 mg DAILY ORAL 10/20/18 09:00 11/19/18 08:59 10/22/18 09:27 Heparin Sodium (Porcine) (Heparin 5000 units/ml) 5,000 units EVERY 12 HOURS SUBQ 10/13/18 21:00 11/09/18 20:59 10/22/18 09:29 Insulin Aspart (NovoLOG) EVERY 6 HOURS SUBQ 10/14/18 18:00 11/09/18 16:29 10/22/18 05:24 Insulin Detemir (Levemir) 10 units DAILY SUBQ 10/22/18 09:00 11/20/18 08:59 10/22/18 09:00 Lorazepam (Ativan 2mg/ml 1ml) 1 mg Q2H PRN IV For Anxiety 10/16/18 16:22 10/23/18 16:21 Ondansetron HCl (Zofran) 4 mg Q6H PRN IVP Nausea & Vomiting 10/13/18 16:30 11/09/18 16:29 Pantoprazole (Protonix) 40 mg EVERY 12 HOURS ORAL 10/21/18 21:00 11/20/18 20:59 10/22/18 09:28 Piperacillin Sod/ Tazobactam Sod 3.375 gm/Sodium Chloride 110 ml @ 27.5 mls/hr EVERY 8 HOURS IVPB 10/19/18 14:00 10/24/18 13:59 10/22/18 05:23 Polyethylene Glycol (Miralax) 17 gm DAILYPRN PRN ORAL Constipation 10/13/18 16:30 11/12/18 16:29 Promethazine HCl/ Codeine (Phenergan with Codeine) 5 ml Q4H PRN ORAL For Cough 10/13/18 16:30 11/09/18 16:29 Vancomycin HCl (Vanco rx to dose) 1 ea DAILY PRN MISC . 10/14/18 09:00 11/09/18 13:29 Vancomycin HCl 750 mg/Sodium Chloride 275 ml @ 183.333 mls/hr Q8H IVPB 10/18/18 06:00 10/23/18 05:59 10/22/18 05:24 Alex Carias MD October 22, 2018 13:16
--- NOTE | 2018-10-22 13:41 | Nephrology Progress Note ---
Assessment/Plan Problem List: (1) Hyponatremia (2) Cardiomyopathy (3) Diabetes mellitus (4) Encephalopathy (5) Anemia Assessment HypoNatremia, ? Etiology further comments after intial blood and urine test results Cardiomyopathy with Ej Fx 25% HypoAlbuminemia Anemia Previously low Phos and Mag UTI Proteinuria other significant conditions: Altered mental status. Brain cancer. Seizure disorder. Diabetes type 2. History of cerebrovascular accident. Right hemiparesis. Hypertension. Coronary artery disease. Expressive aphasia. Hypercholesterolemia. Sepsis-Staph Epidermidis and Staph Hominis Sacral decubitus ulcer Plan Plan: at this time patient back on po intake Low Na downs ordered, likely related to low Albumin and cardiomyopathy trial 3% and Lasix as needed on digoxin Dc plan Per orders Subjective ROS Limited/Unobtainable: No Interval Events/Complaints seen at 10.30 am Objective Objective Last 24 Hour Vital Signs Date Time Temp Pulse Resp B/P (MAP) Pulse Ox O2 Delivery O2 Flow Rate FiO2 10/22/18 12:00 97.9 70 18 129/74 (92) 96 10/22/18 09:28 69 132/78 10/22/18 09:27 69 10/22/18 08:30 Room Air Room Air 10/22/18 08:00 98.4 69 18 132/78 (96) 95 10/22/18 04:00 98.4 72 18 151/77 (101) 100 10/22/18 00:00 98.6 77 17 129/76 (93) 98 10/21/18 22:39 96 121/74 10/21/18 21:00 Room Air Room Air 10/21/18 20:00 98.5 96 20 121/74 (90) 97 10/21/18 16:00 97.5 82 20 116/70 (85) 97 10/21/18 15:06 94 Intake and Output 10/21/18 10/22/18 19:00 07:00 Intake Total 1543.332 ml 835.833 ml Output Total 600 ml 1200 ml Balance 943.332 ml -364.167 ml Intake Oral 240 ml 240 ml IV Total 1303.332 ml 595.833 ml Output Urine Total 600 ml 1200 ml # Bowel Movements 2 Laboratory Tests 10/22/18 09:30: White Blood Count 5.4, Red Blood Count 3.00L, Hemoglobin 9.3L, Hematocrit 27.1L , Mean Corpuscular Volume 90, Mean Corpuscular Hemoglobin 31.1H, Mean Corpuscular Hemoglobin Concent 34.5, Red Cell Distribution Width 12.9, Platelet Count 251, Mean Platelet Volume 5.4L, Neutrophils (%) (Auto) , Lymphocytes (%) ( Auto) , Monocytes (%) (Auto) , Eosinophils (%) (Auto) , Basophils (%) (Auto) , Differential Total Cells Counted 100, Neutrophils % (Manual) 82H, Lymphocytes % (Manual) 7L, Monocytes % (Manual) 3, Eosinophils % (Manual) 0, Basophils % ( Manual) 0, Band Neutrophils 8, Platelet Estimate Adequate, Platelet Morphology Normal, Red Blood Cell Morphology Normal, Sodium Level 138, Potassium Level 4.1 , Chloride Level 103, Carbon Dioxide Level 33H, Anion Gap 2L, Blood Urea Nitrogen 13, Creatinine 0.6, Estimat Glomerular Filtration Rate > 60, Glucose Level 179H, Osmolality 294L, Uric Acid 1.3L, Calcium Level 8.2L, Phosphorus Level 2.7, Magnesium Level 1.9, Total Bilirubin 0.4, Direct Bilirubin 0.1, Aspartate Amino Transf (AST/SGOT) 19, Alanine Aminotransferase (ALT/SGPT) 19, Alkaline Phosphatase 58, Total Protein 5.8L, Albumin 1.7L Height (Feet): 5 Height (Inches): 7.00 Weight (Pounds): 155 General Appearance: no apparent distress Cardiovascular: normal rate Respiratory/Chest: decreased breath sounds Abdomen: soft Juan Hopkins MD October 22, 2018 13:41
--- NOTE | 2018-10-23 12:34 | Discharge Summary ---
Discharge Summary Discharge Summary _ DATE OF ADMISSION: 10/10/2018 DATE OF DISCHARGE: 10/22/2018 ADMITTING MD: Dr. Camacho Braun DISCHARGED BY: Dr. Raul Feng CONSULTANTS: Dr. Raul Dias [facility] HOSPITAL COURSE: Patient is a 68-year-old gentleman, who presented with chief complaint of altered mental status. Patient is a resident of [facility]. Patient was admitted to [facility] from 0 09/27/2018 to 10/01/2018. At the nursing facility, patient was sent to [place] for evaluation of altered mental status. He has medical history significant for oligodendroglioma brain CA, seizure disorder, type 2 diabetes mellitus, CVA with right hemiparesis, hypertension, coronary artery disease and expressive aphasia. On evaluation at the ED, patient had decreased mentation and decreased responsiveness. Blood pressure was 103/69, heart rate was 118. He was saturating 96% on 15 L nonrebreather mask. Blood work showed WBC of 3.7, hemoglobin 14, hematocrit 40. Sodium was 132, potassium 4.4. Carbon dioxide 33 , anion gap of 2 oh. BUN was elevated to 35. Lactic acid was 2.2. Troponin elevated to 0.209. proBNP 830. Urinalysis showed 30-40 WBC, 10-15 RBC, 2+ leukocyte esterase, positive nitrite. Chest x-ray showed left lower lobe infiltrate as read by ED physician. CT of the head did not show any acute disease. He was started on IV Rocephin. He was then admitted to [facility] for sepsis and encephalopathy. Patient was placed on Ventimask. Surety Bond Agent was consulted. Patient was placed on n.p.o. He was given nebulizer treatment and pulmonary toilet. [employer] Tube Bender was consulted for evaluation of troponin elevation. EKG did not show any acute ischemic changes. Consistent with demand ischemia in the setting of sepsis. Echocardiogram showed inferior hypokinesis with apical and apical septal hypokinesis, EF 45 to 50% with EKG changes consistent with old infarcts. Patient did not have evidence of acute ischemia and there were no acute ischemic ST changes seen. He was given medical management. He was given aspirin, Coreg and statin. Patient is not a candidate for invasive cardiac therapy due to morbidities. ID was consulted. Urine culture showed growth of E. coli. Blood culture showed gram-positive bacteremia /. Patient had acute respiratory failure, on Ventimask, although no obvious pneumonia on x-ray. Sputum culture with growth of staph aureus. He was given IV vancomycin. Cefepime was switched to ceftriaxone. Surveillance blood cultures obtained. Hyponatremia work-up was done. Hyponatremia was likely related to low albumin and cardiomyopathy. He was given trial of 3% saline and Lasix. Blood glucose was monitored. He was given Levemir and NovoLog. He came in with sacral decubitus ulcer. Initially DTPI, which has since opened and evolved into unstageable necrotic sacral decubitus ulcer. Surgeon was called to assist with care. He was provided wound care. He underwent excision of sacral pressure ulcer with coccygectomy and ostectomy. 10/13/2018. Patient was unable to participate with swallow evaluation. GI was consulted possible PEG placement. NGT was inserted. Family refused PEG. Repeat blood culture did not isolate any growth. Echocardiogram done did not show any vegetations. Patient was finally able to participate with swallow evaluation patient passed and was a started on mechanical soft diet. He was placed on strict aspiration precautions. Pathology results showed no acute osteomyelitis. Wound culture with gram- negative rods. Patient would require prolonged IV antibiotic treatment. Zosyn was added to his regimen. FINAL DIAGNOSES: Sepsis Probable UTI with E. coli Gram-positive bacteremia Infected unstageable sacral decubitus ulcer, present on admission, status post excisional debridement on 10/13/2018 Acute osteomyelitis of coccyx Pancytopenia Acute respiratory failure, resolved Acute toxic metabolic encephalopathy Brain tumor status post resection on June 2018 and radiation therapy Severe protein calorie malnutrition Dysphasia Anemia Old CVA with right hemiparesis and aphasia Hypertension Hyperlipidemia BPH Type 2 diabetes mellitus Coronary artery disease Abnormal elevation in troponin, demand related Seizure disorder Status post appendectomy Status post tonsillectomy SNF resident DISPOSITION: Patient was discharged to a SNF. DISCHARGE MEDICATIONS: Refer to Discharge Medication List. To continue IV vancomycin for 30 more days. Weekly CBC and BMP x4 weeks. I have been assigned to complete a discharge summary on this account, I was not involved with the patient's management. Rowan Singleton NP October 23, 2018 12:34
== END 2018-10-22 13:25 | DRG 853 ==
LOC: EDBD 10:48 → EMR 12:26 → EDBEDREQ 12:42 → 2W 12:53 → 4E 10-13 16:09
PROC: 0QBS0ZZ Excision of Coccyx, Open Approach (ICD-10-PCS; principal; 2018-10-13 13:00)
PROC: 0QB10ZZ Excision of Sacrum, Open Approach (ICD-10-PCS; principal; 2018-10-13 13:00)
DX: A41.9 Sepsis, unspecified organism (principal); L89.154 Pressure ulcer of sacral region, stage 4; G92 Toxic encephalopathy; E43 Unspecified severe protein-calorie malnutrition; J96.01 Acute respiratory failure with hypoxia; J69.0 Pneumonitis due to inhalation of food and vomit; N39.0 Urinary tract infection, site not specified; I69.951 Hemiplegia and hemiparesis following unspecified cerebrovascular disease affecting right dominant side; I24.8 Other forms of acute ischemic heart disease; D61.818 Other pancytopenia; E87.1 Hypo-osmolality and hyponatremia; M86.18 Other acute osteomyelitis, other site; Z85.841 Personal history of malignant neoplasm of brain; G40.909 Epilepsy, unspecified, not intractable, without status epilepticus; E11.9 Type 2 diabetes mellitus without complications; I69.920 Aphasia following unspecified cerebrovascular disease; I10 Essential (primary) hypertension; I25.10 Atherosclerotic heart disease of native coronary artery without angina pectoris; B96.20 Unspecified Escherichia coli [E. coli] as the cause of diseases classified elsewhere; E78.00 Pure hypercholesterolemia, unspecified; G93.89 Other specified disorders of brain; Z68.24 Body mass index [BMI] 24.0-24.9, adult; E86.0 Dehydration; N40.0 Benign prostatic hyperplasia without lower urinary tract symptoms; R13.10 Dysphagia, unspecified; D64.9 Anemia, unspecified
CPT/HCPCS: 36415; 36600; 70450; 70553; 71045; 74018; 80048; 80053; 80061; 80069; 80076; 80164; 80202; 81003; 82270; 82378; 82533; 82550; 82553; 82607; 82728; 82746; 82747; 82803; 82962; 82977; 83036; 83540; 83550; 83605; 83690; 83735; 83880; 83930; 83935; 84100; 84300; 84443; 84484; 84550; 85007; 85025; 85610; 85730; 86140; 87040; 87070; 87081; 87086; 87181; 87205; 93005; 93306; 93880; 93970; 93971; 94003; 94150; 94664; 94760; 96361; 96365; 97802; 99291; A9585; J1815; J3490; S5561

== ENCOUNTER 2018-11-04 11:12 | Inpatient (IN) | payer MEDICARE, OTHER ==
[~2018-11-04] VITALS: Ht 165.1 cm; Wt 68.0 kg
[~2018-11-04 11:12] MED LIST changes: +ACETAMINOPHEN325 M1 ORAL; +COREG12.5 MG ORAL; +DIGOXIN250 MCG ORAL; +FYCOMPA4 MG PO; +LEVEMIR FL100 UNIT/1 SUBQ; +NOVOLOG100 UNITS1 SUBQ; +VANCOMYCIN HCL125 MG IV; +VANCOMYCIN HCL125 MG PO
--- NOTE | 2018-11-04 11:31 | NUR ---
ED Nurse Note: Spoke to CHIDI Lebron at the facility and patient was sent for G-tube placement.
[2018-11-04] MEDS ORDERED: VITAMIN D250000 UNI1 ORAL (11:34)
[2018-11-04] MEDS ORDERED: VIMPAT200 MG PO (11:36)
[2018-11-04] MEDS ORDERED: GLUCOPHAGE500 MG ORAL (11:36)
[2018-11-04] MEDS ORDERED: MULTIVITAMINS1 EAC8 ORAL (11:38)
[2018-11-04] MEDS ORDERED: VITAMIN C500 M1 ORAL (11:38)
[2018-11-04] MEDS ORDERED: ZINC SULFATE220 M1 ORAL (11:38)
[2018-11-04] MEDS ORDERED: Morphine Sulfate 4mg/ml Inj (IV USE ONLY) IVP ONE (11:45)
--- NOTE | 2018-11-04 11:49 | Emergency Room Report ---
History of Present Illness General Chief Complaint: General Complaint Source: Patient, Medical Record, PMD Present Illness HPI 68-year-old male with a history of stroke, toxic Metabolic encephalopathy, sent for failure to thrive in need of PEG tube by Dr. Braun. History is very limited secondary to patient's history of encephalopathy, but patient does report discomfort in his sacral area has a known decubitus ulcer. Allergies: Coded Allergies: No Known Allergies (Unverified , 09/27/18) Patient History Past Medical History: see triage record Reviewed Nursing Documentation: PMH: Agreed; PSxH: Agreed Nursing Documentation-PMH Past Medical History: No History, Except For Hx Hypertension: Yes Hx Diabetes: Yes Hx Cancer: Yes - brain cancer Hx Gastrointestinal Problems: No - GERD, pancreatits Hx Neurological Problems: Yes - AMS, cerebral edema 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, expressive aphasia Hx Seizures: Yes Review of Systems All Other Systems: limited - 2/2 medical condition Physical Exam Vital Signs Date Time Temp Pulse Resp B/P (MAP) Pulse Ox O2 Delivery O2 Flow Rate FiO2 11/04/18 11:16 97.7 109 19 94 Room Air Sp02 EP Interpretation: reviewed, normal General Appearance: no apparent distress, alert, non-toxic Head: normocephalic Eyes: bilateral eye normal inspection, bilateral eye PERRL, bilateral eye EOMI ENT: normal ENT inspection, hearing grossly normal, normal pharynx, no angioedema, normal voice, moist mucus membranes Neck: normal inspection, full range of motion, supple, supple/symm/no masses Respiratory: chest non-tender, lungs clear, normal breath sounds, chest symmetrical, palpation of chest normal Cardiovascular #1: normal peripheral pulses, regular rate, rhythm, tachycardia Cardiovascular #2: 2+ radial (R), 2+ radial (L) Gastrointestinal: normal inspection, non tender, soft, no mass, no guarding, no rebound Rectal: deferred Genitourinary: normal inspection, no CVA tenderness Musculoskeletal: back normal, normal range of motion, non-tender, no calf tenderness Neurologic: alert, responsive, brush machine setter III-XII nml as tested - R facial droop, motor strength/tone normal, sensory intact, speech normal Psychiatric: judgement/insight normal, memory normal, mood/affect normal Skin: normal color, no rash, warm/dry, normal turgor, other - sacral decubitus without odor, banadaged cleanly, no purulence Lymphatic: no adenopathy Medical Decision Making Diagnostic Impression: Primary Impression: Dysphagia ER Course Patient given IV fluids, IV analgesics due to pain from his sacral decubitus ulcer, will be admitted for feeding tube placement for failure to thrive, stable for MedSurg. Rhythm Strip Diag. Results Rhythm Strip Time: 11:49 EP Interpretation: yes Rate: 49 Rhythm: NSR, no PVC's, no ectopy Last Vital Signs Date Time Temp Pulse Resp B/P (MAP) Pulse Ox O2 Delivery O2 Flow Rate FiO2 11/04/18 11:16 97.7 109 19 94 Room Air Disposition: ADMITTED INPATIENT Condition: Stable Signed Out To: MARQUISE Lorenzo M.D November 04, 2018 11:49
--- NOTE | 2018-11-04 11:55 | NUR ---
ED Nurse Note: Pt. brought in by ambulance from [facility] for possible GT placement with Dr. Burnett.Pt.'s PCP is Dr. Braun. Per EMS, pt. is confused and has decubitus wound on the coccyx area. Pt. is here for G-tube placement due to FTT
--- NOTE | 2018-11-04 12:13 | NUR ---
ED Nurse Note: called lab for labdraw
[2018-11-04 12:26] LABS: APPEARANCE,URINE CLOUDY; BILIRUBIN, URINE NEGATIVE (NEGATIVE); GLUCOSE, URINE (UA) 2+ (NEGATIVE); KETONES,URINE NEGATIVE (NEGATIVE); LEUKOCYTE ESTERASE ,URINE 3+ (NEGATIVE); NITRITE,URINE POSITIVE (NEGATIVE); PH,URINE 6 (4.5-8.0); PROTEIN,URINE 2+ (NEGATIVE); UROBILINOGEN,URINE 4 MG/DL (0.0-1.0)
[2018-11-04 12:28] LABS: COLOR,URINE YELLOW
--- NOTE | 2018-11-04 12:53 | NUR ---
ED Nurse Note: lab drawn by track laborer, sent to lab
[2018-11-04 12:55] VITALS: BP 117/79
[2018-11-04 13:00] LABS: HEMATOCRIT 30.3 % (42.0-52.0); HEMOGLOBIN 10.1 G/DL (14.2-18.0); MEAN CORPUSCULAR VOLUME 93 FL (80-99); PLATELET COUNT 176 K/UL (150-450); RED BLOOD COUNT 3.27 M/UL (4.70-6.10); RED CELL DISTRIBUTION WIDTH 15.1 % (11.6-14.8); WHITE BLOOD COUNT 5.7 K/UL (4.8-10.8)
[2018-11-04 13:09] LABS: INR 1.1 (0.9-1.1)
[2018-11-04 13:11] LABS: ANION GAP 6 mmol/L (5-15); BLOOD UREA NITROGEN 19 mg/dL (7-18); CALCIUM 8.5 MG/DL (8.5-10.1); CARBON DIOXIDE 33 MMOL/L (21-32); CHLORIDE 103 MMOL/L (98-107); CREATININE 0.5 MG/DL (0.55-1.30); POTASSIUM 3.5 MMOL/L (3.5-5.1); SODIUM 141 MMOL/L (136-145)
--- NOTE | 2018-11-04 13:13 | NUR ---
ED Nurse Note: attempted to take wound care photo but unable to, due to no battery in the camera CN made aware, called IT for battery replacement.
[2018-11-04 13:16] LABS: ALANINE AMINOTRANSFERASE 19 U/L (12-78); ALBUMIN 2.1 G/DL (3.4-5.0); ALBUMIN/GLOBULIN RATIO 0.6 (1.0-2.7); ALKALINE PHOSPHATASE 68 U/L (46-116); ASPARTATE AMINO TRANSFERASE 19 U/L (15-37); BILIRUBIN,TOTAL 0.7 MG/DL (0.2-1.0)
--- NOTE | 2018-11-04 13:39 | NUR ---
ED Nurse Note: Dr. Purcell ok for the patient to go up to 4E. Called 4 E spoke with Criselda, nurse Ramon is going to take the patient, but on break now, unable to get report, was told to call back in 15 minutes
[2018-11-04] MEDS ORDERED: D5 1/2NS 1,000 ML IV SCH (14:06)
--- NOTE | 2018-11-04 14:06 | NUR ---
ED Nurse Note: report given to Ramon MURILLO Endorsed all care to RAMON MURILLO
--- NOTE | 2018-11-04 14:10 | Consultation ---
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 Previously pt has failed swallow studies, but family didn't agree with Gtube feeding. It seems now that they changed their mind. Allergies: Coded Allergies: No Known Allergies (Unverified , 09/27/18) Medication History Scheduled Apixaban (Eliquis), 5 MG PO BID, (Reported) Ascorbic Acid* (Vitamin C*), 500 MG ORAL DAILY, (Reported) Atorvastatin (Lipitor), 80 MG ORAL BEDTIME, (Reported) Carvedilol (Coreg), 25 MG ORAL EVERY 12 HOURS Carvedilol (Coreg), 12.5 MG ORAL EVERY 12 HOURS, (Reported) Cholecalciferol (Vitamin D3)* (Vitamin D*), 50,000 UNITS ORAL QWEEK, (Reported) Cholecalciferol (Vitamin D3)* (Vitamin D*), 50,000 UNITS ORAL ONCE A WEEK, ( Reported) Dexamethasone (Dexamethasone), 4 MG ORAL DAILY Dexamethasone* (Decadron*), 4 MG PO BID, (Reported) Digoxin* (Digoxin*), 0.25 MG ORAL DAILY Divalproex Sodium (Depakote), 500 MG PO BID, (Reported) Docusate Sodium (Docusate Sodium), 100 MG ORAL DAILY, (Reported) Ergocalciferol (Vitamin D2)* (Vitamin D*), 50,000 UNIT ORAL ONCE A WEEK, ( Reported) Finasteride (Finasteride), 5 MG ORAL DAILY@2100 Insulin Aspart (Novolog Flexpen), 0 UNITS SUBQ EVERY 6 HOURS Insulin Detemir (Levemir Flexpen), 6 UNITS SUBQ DAILY Lacosamide (Vimpat), 200 MG PO BID, (Reported) Lacosamide (Vimpat), 200 MG PO BID, (Reported) Lamotrigine* (Lamictal*), 50 MG ORAL DAILY Losartan Potassium (Losartan Potassium), 25 MG ORAL DAILY, (Reported) Metformin Hcl (Glucophage), 1,000 MG ORAL BID, (Reported) Metformin Hcl* (Glucophage*), 100 MG ORAL TWICE A DAY, (Reported) Multivitamin With Minerals (Multivitamins With Minerals*), 1 TAB ORAL DAILY, ( Reported) Perampanel (Fycompa), 4 MG PO DAILY, (Reported) Polyethylene Glycol 3350* (Miralax*), 17 GM ORAL DAILY, (Reported) Polyethylene Glycol 3350* (Miralax*), 17 GM ORAL DAILY, (Reported) Quetiapine Fumarate* (Seroquel*), 25 MG ORAL Q12HR Ranitidine Hcl* (Zantac*), 150 MG ORAL DAILY, (Reported) Sitagliptin (Januvia), 50 MG ORAL DAILY Tamsulosin HCl (Flomax), 0.4 MG ORAL BEDTIME Temozolomide (Temozolomide), 5 MG PO DAILY, (Reported) Vancomycin Hcl (Vancomycin Hcl), 125 MG PO DAILY, (Reported) Vancomycin Hcl (Vancomycin Hcl), 125 MG IV DAILY, (Reported) Zinc Sulfate (Zinc Sulfate*), 220 MG ORAL DAILY, (Reported) Scheduled PRN Acetaminophen* (Acetaminophen 325MG Tablet*), 650 MG ORAL Q6H PRN for For Pain, (Reported) Miscellaneous Medications Divalproex Sodium (Divalproex Sodium), 1,500 MG PO, (Reported) Divalproex Sodium (Depakote), 1,500 MG PO, (Reported) Insulin Lispro (Humalog), 0 SUBQ, (Reported) Patient History Healthcare decision maker Resuscitation status Advanced Directive on File Past Medical/Surgical History Past Medical/Surgical History: (1) Anemia (2) Severe malnutrition (3) History of CVA (cerebrovascular accident) (4) Sacral decubitus ulcer (5) Cardiomyopathy (6) Brain tumor (7) Oligodendroglioma (8) Diabetes mellitus (9) Hypertension Review of Systems All Other Systems: negative except mentioned in HPI Physical Exam General Appearance: cachetic, thin Lines, tubes and drains: peripheral HEENT: normocephalic, atraumatic Neck: non-tender, normal alignment Respiratory/Chest: chest wall non-tender, lungs clear Breasts: no masses Cardiovascular/Chest: normal rate Abdomen: normal bowel sounds Genitourinary/Rectal: normal genital exam Extremities: normal range of motion Last 24 Hour Vital Signs Date Time Temp Pulse Resp B/P (MAP) Pulse Ox O2 Delivery O2 Flow Rate FiO2 11/04/18 12:56 102 19 Room Air 11/04/18 12:55 97.7 102 19 117/79 100 Room Air 11/04/18 12:48 97.7 11/04/18 11:16 97.7 109 19 94 Room Air Laboratory Tests Test 11/04/18 12:14 11/04/18 12:50 Urine Color Yellow Urine Appearance Cloudy Urine pH 6 (4.5-8.0) Urine Specific [place] 1.010 (1.005-1.035) Urine Protein 2+ (NEGATIVE) H Urine Glucose (UA) 2+ (NEGATIVE) H Urine Ketones Negative (NEGATIVE) Urine Blood 5+ (NEGATIVE) H Urine Nitrite Positive (NEGATIVE) H Urine Bilirubin Negative (NEGATIVE) Urine Urobilinogen 4 MG/DL (0.0-1.0) H Urine Leukocyte Esterase 3+ (NEGATIVE) H Urine RBC 10-15 /HPF (0 - 0) H Urine WBC 30-40 /HPF (0 - 0) H Urine Squamous Epithelial Cells None /LPF (NONE/OCC) Urine Bacteria Moderate /HPF (NONE) H White Blood Count 5.7 K/UL (4.8-10.8) Red Blood Count 3.27 M/UL (4.70-6.10) L Hemoglobin 10.1 G/DL (14.2-18.0) L Hematocrit 30.3 % (42.0-52.0) L Mean Corpuscular Volume 93 FL (80-99) Mean Corpuscular Hemoglobin 30.8 PG (27.0-31.0) Mean Corpuscular Hemoglobin Concent 33.3 G/DL (32.0-36.0) Red Cell Distribution Width 15.1 % (11.6-14.8) H Platelet Count 176 K/UL (150-450) Mean Platelet Volume 6.5 FL (6.5-10.1) Neutrophils (%) (Auto) % (45.0-75.0) Lymphocytes (%) (Auto) % (20.0-45.0) Monocytes (%) (Auto) % (1.0-10.0) Eosinophils (%) (Auto) % (0.0-3.0) Basophils (%) (Auto) % (0.0-2.0) Differential Total Cells Counted 100 Neutrophils % (Manual) 95 % (45-75) H Lymphocytes % (Manual) 3 % (20-45) L Monocytes % (Manual) 2 % (1-10) Eosinophils % (Manual) 0 % (0-3) Basophils % (Manual) 0 % (0-2) Band Neutrophils 0 % (0-8) Platelet Estimate Adequate Platelet Morphology Normal Hypochromasia 1+ Anisocytosis 1+ Spherocytes 1+ Prothrombin Time 11.3 SEC (9.30-11.50) Prothromb Time International Ratio 1.1 (0.9-1.1) Activated Partial Thromboplast Time 33 SEC (23-33) Sodium Level 141 MMOL/L (136-145) Potassium Level 3.5 MMOL/L (3.5-5.1) Chloride Level 103 MMOL/L (98-107) Carbon Dioxide Level 33 MMOL/L (21-32) H Anion Gap 6 mmol/L (5-15) Blood Urea Nitrogen 19 mg/dL (7-18) H Creatinine 0.5 MG/DL (0.55-1.30) L Estimat Glomerular Filtration Rate > 60 mL/min (>60) Glucose Level 115 MG/DL (74-106) H Calcium Level 8.5 MG/DL (8.5-10.1) Total Bilirubin 0.7 MG/DL (0.2-1.0) Aspartate Amino Transf (AST/SGOT) 19 U/L (15-37) Alanine Aminotransferase (ALT/SGPT) 19 U/L (12-78) Alkaline Phosphatase 68 U/L (46-116) Total Protein 5.8 G/DL (6.4-8.2) L Albumin 2.1 G/DL (3.4-5.0) L Globulin 3.7 g/dL Albumin/Globulin Ratio 0.6 (1.0-2.7) L Lipase 150 U/L (73-393) Height (Feet): 5 Height (Inches): 8.00 Weight (Pounds): 160 Medications Current Medications Medications (Trade) Dose Ordered Sig/Chace Route PRN Reason Start Time Stop Time Status Last Admin Dose Admin Sodium Chloride 1,000 ml @ 100 mls/hr Q10H ONCE IV 11/04/18 11:44 11/04/18 21:43 11/04/18 12:38 Assessment/Plan Problem List: (1) Severe malnutrition ICD Codes: E43 - Unspecified severe protein-calorie malnutrition SNOMED: 02929942 (2) Sacral decubitus ulcer ICD Codes: L89.159 - Pressure ulcer of sacral region, unspecified stage SNOMED: 328483063 (3) Oligodendroglioma ICD Codes: C71.9 - Malignant neoplasm of brain, unspecified SNOMED: 31145702, 791659613 (4) History of CVA (cerebrovascular accident) ICD Codes: Z86.73 - Personal history of transient ischemic attack (TIA), and cerebral infarction without residual deficits SNOMED: 299742544 (5) Cardiomyopathy ICD Codes: I42.9 - Cardiomyopathy, unspecified SNOMED: 68343956 (6) Diabetes mellitus ICD Codes: E11.9 - Type 2 diabetes mellitus without complications SNOMED: 30686052 (7) Hypertension ICD Codes: I10 - Essential (primary) hypertension SNOMED: 05027648 (8) Brain tumor ICD Codes: D49.6 - Neoplasm of unspecified behavior of brain SNOMED: 517243902 Assessment/Plan: iv fluids NPO GI evaluation seizure precaution family doesn't want any seizure meds nutrition evaluation dvt prophylaxis check coagulation family not amenable to comfort care Raul Feng MD November 04, 2018 14:10
[2018-11-04] MEDS ORDERED: LORazepam Inj 2mg/ml 1ml IV PRN (14:15)
[2018-11-04] MEDS ORDERED: cefTRIAXone 1 GM in D5W 55 ML IVPB ONE (14:15)
[2018-11-04] MEDS ORDERED: Morphine Sulfate 2mg/ml Inj(IV/IM USE ONLY) IVP PRN (14:15)
--- NOTE | 2018-11-04 14:15 | NUR ---
ED Nurse Note: patient transferred to 4E with PLUG GROWERIVETTE BUNN endorsed all care to Ramon MURILLO
--- NOTE | 2018-11-04 15:07 | GI Initial Consult Note ---
History of Present Illness General Date patient seen: November 04, 2018 Time patient seen: 15:06 Reason for Hospitalization: General Complaint Referring physician: MJ WHITE Reason for Consultation: PEG EVALUATION Present Illness HPI 68-year-old male with a history of stroke, toxic Metabolic encephalopathy, sent for failure to thrive in need of PEG tube by Dr. Braun. History is very limited secondary to patient's history of encephalopathy, but patient does report discomfort in his sacral area has a known decubitus ulcer. GI consulted for PEG evaluation. ROS limited, patient seen awake alert with no apparent distress with no active signs symptoms of nausea vomiting. The patient had a recent admission here at [facility] in which the patient passed the swallow evaluation and was placed on a mechanical soft diet and discharged. The patient presents today with a diagnosis of failure to thrive, reported poor p.o. intake and weight loss. Home Meds Active Scripts Digoxin* (DIGOXIN*) 250 Mcg Tablet, 0.25 MG ORAL DAILY for 30 Days, TAB Prov:Mj Feng MD 10/21/18 Insulin Aspart (Novolog Flexpen) 100 Unit/1 Ml Insuln.pen, 0 UNITS SUBQ EVERY 6 HOURS for 30 Days, EA Prov:Mj Feng MD 10/21/18 Insulin Detemir (LEVEMIR FLEXPEN) 100 Unit/1 Ml Insuln.pen, 6 UNITS SUBQ DAILY for 30 Days, EA Prov:Mj eFng MD 10/21/18 Quetiapine Fumarate* (SEROQUEL*) 25 Mg Tablet, 25 MG ORAL Q12HR for 30 Days, TAB Prov:Mj Feng MD 10/01/18 Sitagliptin (Januvia) 50 Mg Tablet, 50 MG ORAL DAILY for 30 Days, TAB Prov:Mj Feng MD 10/01/18 Tamsulosin HCl (Flomax) 0.4 Mg Cap.er.24h, 0.4 MG ORAL BEDTIME for 30 Days, CAP Prov:Mj Feng MD 10/01/18 Lamotrigine* (LAMICTAL*) 25 Mg Tablet, 50 MG ORAL DAILY for 30 Days, TAB Prov:Mj Feng MD 10/01/18 Finasteride (FINASTERIDE) 5 Mg Tablet, 5 MG ORAL DAILY@2100 for 30 Days, TAB Prov:Mj Feng MD 10/01/18 Dexamethasone (Dexamethasone) 2 Mg Tablet, 4 MG ORAL DAILY for 30 Days, TAB Prov:Mj Feng MD 10/01/18 Carvedilol (Coreg) 25 Mg Tablet, 25 MG ORAL EVERY 12 HOURS for 30 Days, TAB Prov:Mj Feng MD 10/01/18 Reported Medications Ascorbic Acid* (VITAMIN C*) 500 Mg Tablet, 500 MG ORAL DAILY, #30 TAB 0 Refills 11/04/18 Zinc Sulfate (ZINC SULFATE*) 220 Mg Capsule, 220 MG ORAL DAILY, CAP 0 Refills 11/04/18 Multivitamin With Minerals (MULTIVITAMINS WITH MINERALS*) 1 Each Tablet, 1 TAB ORAL DAILY, TAB 11/04/18 Metformin Hcl* (GLUCOPHAGE*) 500 Mg Tablet, 100 MG ORAL TWICE A DAY, TAB 11/04/18 Lacosamide (VIMPAT) 200 Mg Tablet, 200 MG PO BID, TAB 11/04/18 Ergocalciferol (Vitamin D2)* (VITAMIN D*) 50,000 Unit Capsule, 48942 UNIT ORAL ONCE A WEEK, CAP 11/04/18 Vancomycin Hcl (VANCOMYCIN HCL) 125 Mg Capsule, 125 MG IV DAILY for pahrmacy to dose for 30 Days, CAP 10/21/18 Vancomycin Hcl (VANCOMYCIN HCL) 125 Mg Capsule, 125 MG PO DAILY for frequency to dose for 30 Days, CAP 10/21/18 Polyethylene Glycol 3350* (MIRALAX*) 17 Gm Powd.pack, 17 GM ORAL DAILY, PACKET 10/10/18 Perampanel (Fycompa) 4 Mg Tablet, 4 MG PO DAILY, TAB 10/10/18 Dexamethasone* (DECADRON*) 2 Mg Tablet, 4 MG PO BID, TAB 10/10/18 Cholecalciferol (Vitamin D3)* (VITAMIN D*) 1,000 Unit Tablet, 96256 UNITS ORAL ONCE A WEEK, TAB 10/10/18 Carvedilol (Coreg) 12.5 Mg Tablet, 12.5 MG ORAL EVERY 12 HOURS, TAB 10/10/18 Acetaminophen* (ACETAMINOPHEN 325MG TABLET*) 325 Mg Tablet, 650 MG ORAL Q6H PRN for For Pain, TAB 10/10/18 Divalproex Sodium (DEPAKOTE) 125 Mg Tablet.dr, 1500 MG PO, TAB 09/27/18 Insulin Lispro (HUMALOG) 100 Unit/1 Ml Cartridge, 0 SUBQ, #1 UNITS 0 Refills 09/27/18 Polyethylene Glycol 3350* (MIRALAX*) 17 Gm Powd.pack, 17 GM ORAL DAILY, PACKET 09/27/18 Lacosamide (VIMPAT) 200 Mg Tablet, 200 MG PO BID, TAB 09/27/18 Temozolomide (Temozolomide) 5 Mg Capsule, 5 MG PO DAILY, CAP 09/27/18 Ranitidine Hcl* (ZANTAC*) 150 Mg Tablet, 150 MG ORAL DAILY, #30 TAB 0 Refills 09/27/18 Metformin Hcl (GLUCOPHAGE) 1,000 Mg Tablet, 1000 MG ORAL BID, TAB 09/27/18 Losartan Potassium (LOSARTAN POTASSIUM) 100 Mg Tablet, 25 MG ORAL DAILY, TAB 09/27/18 Docusate Sodium (DOCUSATE SODIUM) 100 Mg Tablet, 100 MG ORAL DAILY, #30 TAB 0 Refills 09/27/18 Divalproex Sodium (DIVALPROEX SODIUM) 500 Mg Tablet.dr, 1500 MG PO, TAB 09/27/18 Divalproex Sodium (DEPAKOTE) 125 Mg Tablet.dr, 500 MG PO BID, TAB 09/27/18 Cholecalciferol (Vitamin D3)* (VITAMIN D*) 1,000 Unit Tablet, 98672 UNITS ORAL QWEEK, TAB 09/27/18 Atorvastatin (Lipitor) 80 Mg Tablet, 80 MG ORAL BEDTIME, #30 TAB 0 Refills 09/27/18 Apixaban (ELIQUIS) 5 Mg Tablet, 5 MG PO BID, TAB 09/27/18 Med list reviewed/reconciled: Yes Allergies: Coded Allergies: No Known Allergies (Unverified , 09/27/18) Patient History Limited by: medical condition History Provided By: Medical Record [facility] Narrative Past Medical History: No History, Except For Hx Hypertension: Yes Hx Diabetes: Yes Hx Cancer: Yes - brain cancer Hx Gastrointestinal Problems: No - GERD, pancreatits Hx Neurological Problems: Yes - AMS, cerebral edema 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, expressive aphasia Hx Seizures: Yes Social History: Denies: smoking, alcohol use, drug use, other Review of Systems All Other Systems: limited Physical Exam Vital Signs Date Time Temp Pulse Resp B/P (MAP) Pulse Ox O2 Delivery O2 Flow Rate FiO2 11/04/18 11:16 97.7 109 19 94 Room Air 11/04/18 12:55 117/79 Labs Laboratory Tests Test 11/04/18 12:14 11/04/18 12:50 Urine Color Yellow Urine Appearance Cloudy Urine pH 6 (4.5-8.0) Urine Specific [place] 1.010 (1.005-1.035) Urine Protein 2+ (NEGATIVE) H Urine Glucose (UA) 2+ (NEGATIVE) H Urine Ketones Negative (NEGATIVE) Urine Blood 5+ (NEGATIVE) H Urine Nitrite Positive (NEGATIVE) H Urine Bilirubin Negative (NEGATIVE) Urine Urobilinogen 4 MG/DL (0.0-1.0) H Urine Leukocyte Esterase 3+ (NEGATIVE) H Urine RBC 10-15 /HPF (0 - 0) H Urine WBC 30-40 /HPF (0 - 0) H Urine Squamous Epithelial Cells None /LPF (NONE/OCC) Urine Bacteria Moderate /HPF (NONE) H White Blood Count 5.7 K/UL (4.8-10.8) Red Blood Count 3.27 M/UL (4.70-6.10) L Hemoglobin 10.1 G/DL (14.2-18.0) L Hematocrit 30.3 % (42.0-52.0) L Mean Corpuscular Volume 93 FL (80-99) Mean Corpuscular Hemoglobin 30.8 PG (27.0-31.0) Mean Corpuscular Hemoglobin Concent 33.3 G/DL (32.0-36.0) Red Cell Distribution Width 15.1 % (11.6-14.8) H Platelet Count 176 K/UL (150-450) Mean Platelet Volume 6.5 FL (6.5-10.1) Neutrophils (%) (Auto) % (45.0-75.0) Lymphocytes (%) (Auto) % (20.0-45.0) Monocytes (%) (Auto) % (1.0-10.0) Eosinophils (%) (Auto) % (0.0-3.0) Basophils (%) (Auto) % (0.0-2.0) Differential Total Cells Counted 100 Neutrophils % (Manual) 95 % (45-75) H Lymphocytes % (Manual) 3 % (20-45) L Monocytes % (Manual) 2 % (1-10) Eosinophils % (Manual) 0 % (0-3) Basophils % (Manual) 0 % (0-2) Band Neutrophils 0 % (0-8) Platelet Estimate Adequate Platelet Morphology Normal Hypochromasia 1+ Anisocytosis 1+ Spherocytes 1+ Prothrombin Time 11.3 SEC (9.30-11.50) Prothromb Time International Ratio 1.1 (0.9-1.1) Activated Partial Thromboplast Time 33 SEC (23-33) Sodium Level 141 MMOL/L (136-145) Potassium Level 3.5 MMOL/L (3.5-5.1) Chloride Level 103 MMOL/L (98-107) Carbon Dioxide Level 33 MMOL/L (21-32) H Anion Gap 6 mmol/L (5-15) Blood Urea Nitrogen 19 mg/dL (7-18) H Creatinine 0.5 MG/DL (0.55-1.30) L Estimat Glomerular Filtration Rate > 60 mL/min (>60) Glucose Level 115 MG/DL (74-106) H Calcium Level 8.5 MG/DL (8.5-10.1) Total Bilirubin 0.7 MG/DL (0.2-1.0) Aspartate Amino Transf (AST/SGOT) 19 U/L (15-37) Alanine Aminotransferase (ALT/SGPT) 19 U/L (12-78) Alkaline Phosphatase 68 U/L (46-116) Total Protein 5.8 G/DL (6.4-8.2) L Albumin 2.1 G/DL (3.4-5.0) L Globulin 3.7 g/dL Albumin/Globulin Ratio 0.6 (1.0-2.7) L Lipase 150 U/L (73-393) General Appearance: no apparent distress, thin Head: normocephalic Neck: supple Respiratory: no respiratory distress Musculoskeletal: other - Generalized weakness Neurologic: alert Skin: normal color Lymphatic: normal inspection Current Medications Current Medications Medications (Trade) Dose Ordered Sig/Chace Route PRN Reason Start Time Stop Time Status Last Admin Dose Admin Dexamethasone (Decadron) 4 mg BID ORAL 11/04/18 18:00 12/04/18 17:59 Dextrose (Dextrose 50%) 25 ml Q30M PRN IV Hypoglycemia 11/04/18 14:15 12/04/18 14:14 Dextrose (Dextrose 50%) 50 ml Q30MIN PRN IV Hypoglycemia 11/04/18 14:15 12/04/18 14:14 Dextrose/Sodium Chloride 1,000 ml @ 50 mls/hr Q20H IV 11/04/18 14:06 12/04/18 14:05 Digoxin (Lanoxin) 0.25 mg DAILY ORAL 11/05/18 09:00 12/05/18 08:59 Finasteride (Proscar) 5 mg DAILY@2100 ORAL 11/04/18 21:00 12/04/18 20:59 Heparin Sodium (Porcine) (Heparin 5000 units/ml) 5,000 units EVERY 12 HOURS SUBQ 11/04/18 21:00 12/04/18 20:59 Lorazepam (Ativan 2mg/ml 1ml) 0.5 mg Q4H PRN IV For Anxiety 11/04/18 14:15 11/11/18 14:14 Morphine Sulfate (Morphine Sulfate) 1 mg Q4H PRN IVP For Pain 11/04/18 14:15 11/11/18 14:14 Ondansetron HCl (Zofran) 4 mg Q6H PRN IVP Nausea & Vomiting 11/04/18 14:15 12/04/18 14:14 Sitagliptin Phosphate (Januvia) 50 mg DAILY ORAL 11/05/18 09:00 12/05/18 08:59 GI: Plan Problems: (1) Severe malnutrition (2) Dysphagia (3) Anemia (4) PEG (percutaneous endoscopic gastrostomy) adjustment/replacement/removal (5) Failure to thrive (6) Dehydration Plan Patient to be scheduled for PEG tomorrow -Puree diet now, NPO @ CO. - hold all blood thinners -Okay for patient to be on mechanical soft diet post procedure for oral gratification with strict aspiration precautions PRN transfusions PPI We will follow with additional recommendations postprocedure Discussed with Dr. Burnett. Thank you for this patient referral, we will follow. The patient was seen and examined at bedside and all new and available data was reviewed in the patients chart. I agree with the above findings, impression and plan. (Patient seen earlier today. Signature stamp does not reflect patient encounter time.). - MD Vero Blevins Anh-Brendan MANAGER OF COMPENSATION November 04, 2018 15:07
--- NOTE | 2018-11-04 15:16 | NUR ---
NURSE NOTES:WOUND CARE NOTES:Pt presented on admission with full thickness sacral pressure injury with undermining. Base of viable with trace amt of slough .Bone is visible. undermining clockwise 9-6o'clock ,at 12 o'clock base of wound is necrotic.mixed slough and soft necrosis noted along borders. Periwound erythematous and indurated.Mild odor resolved after cleansing of wound. No exudate noted. Both heels are firm and blanchable. No evidence of skin breakdown noted to all other bony prominences. Tx.Plan: Cleanse wound with Saline. Loosely pack with Hydrogel impregnated Kerlix packing .Apply Triad paste periwound. Cover with Optifoam drsg Every shift (Q12Hr). Apply Cavilon Skin Barrier to both heels .Cover each heel with Optifoam drsg. Change every 7 days and prn Apply Cavilon Skin Barrier to both hips. Cover each hip with Optifoam drsg. Change every 7 days and prn. Air fluidized mattress. Reposition at least every 2hours or as tolerated. Off-load heels with pillow.
[2018-11-04 16:00] VITALS: BP 112/73
--- NOTE | 2018-11-04 17:12 | Consultation ---
History of Present Illness General Date patient seen: November 04, 2018 Chief Complaint: General Complaint Referring physician: MJ WHITE Present Illness HPI 68 year old male known to me from prior admissions where he requiring care and wound management. Has been at outside facility until requiring readmission for care. He has not been taking in much oral intake, dehydrated, and weak. on this admission noted to have worsening wound and surgery called to evaluate. patient seen, chart reviewed, patient examined. he is seemingly comfortable but does look ill compared to prior visits. Allergies: Coded Allergies: No Known Allergies (Unverified , 09/27/18) Medication History Scheduled Apixaban (Eliquis), 5 MG PO BID, (Reported) Ascorbic Acid* (Vitamin C*), 500 MG ORAL DAILY, (Reported) Atorvastatin (Lipitor), 80 MG ORAL BEDTIME, (Reported) Carvedilol (Coreg), 25 MG ORAL EVERY 12 HOURS Carvedilol (Coreg), 12.5 MG ORAL EVERY 12 HOURS, (Reported) Cholecalciferol (Vitamin D3)* (Vitamin D*), 50,000 UNITS ORAL QWEEK, (Reported) Cholecalciferol (Vitamin D3)* (Vitamin D*), 50,000 UNITS ORAL ONCE A WEEK, ( Reported) Dexamethasone (Dexamethasone), 4 MG ORAL DAILY Dexamethasone* (Decadron*), 4 MG PO BID, (Reported) Digoxin* (Digoxin*), 0.25 MG ORAL DAILY Divalproex Sodium (Depakote), 500 MG PO BID, (Reported) Docusate Sodium (Docusate Sodium), 100 MG ORAL DAILY, (Reported) Ergocalciferol (Vitamin D2)* (Vitamin D*), 50,000 UNIT ORAL ONCE A WEEK, ( Reported) Finasteride (Finasteride), 5 MG ORAL DAILY@2100 Insulin Aspart (Novolog Flexpen), 0 UNITS SUBQ EVERY 6 HOURS Insulin Detemir (Levemir Flexpen), 6 UNITS SUBQ DAILY Lacosamide (Vimpat), 200 MG PO BID, (Reported) Lacosamide (Vimpat), 200 MG PO BID, (Reported) Lamotrigine* (Lamictal*), 50 MG ORAL DAILY Losartan Potassium (Losartan Potassium), 25 MG ORAL DAILY, (Reported) Metformin Hcl (Glucophage), 1,000 MG ORAL BID, (Reported) Metformin Hcl* (Glucophage*), 100 MG ORAL TWICE A DAY, (Reported) Multivitamin With Minerals (Multivitamins With Minerals*), 1 TAB ORAL DAILY, ( Reported) Perampanel (Fycompa), 4 MG PO DAILY, (Reported) Polyethylene Glycol 3350* (Miralax*), 17 GM ORAL DAILY, (Reported) Polyethylene Glycol 3350* (Miralax*), 17 GM ORAL DAILY, (Reported) Quetiapine Fumarate* (Seroquel*), 25 MG ORAL Q12HR Ranitidine Hcl* (Zantac*), 150 MG ORAL DAILY, (Reported) Sitagliptin (Januvia), 50 MG ORAL DAILY Tamsulosin HCl (Flomax), 0.4 MG ORAL BEDTIME Temozolomide (Temozolomide), 5 MG PO DAILY, (Reported) Vancomycin Hcl (Vancomycin Hcl), 125 MG PO DAILY, (Reported) Vancomycin Hcl (Vancomycin Hcl), 125 MG IV DAILY, (Reported) Zinc Sulfate (Zinc Sulfate*), 220 MG ORAL DAILY, (Reported) Scheduled PRN Acetaminophen* (Acetaminophen 325MG Tablet*), 650 MG ORAL Q6H PRN for For Pain, (Reported) Miscellaneous Medications Divalproex Sodium (Divalproex Sodium), 1,500 MG PO, (Reported) Divalproex Sodium (Depakote), 1,500 MG PO, (Reported) Insulin Lispro (Humalog), 0 SUBQ, (Reported) Patient History Limited by: medical condition History Provided By: Medical Record, PMD Healthcare decision maker Son Resuscitation status Full Code Advanced Directive on File No Past Medical/Surgical History Past Medical/Surgical History: (1) Diabetes mellitus (2) Hypertension (3) Dysphagia (4) Oligodendroglioma (5) Brain tumor (6) Cardiomyopathy (7) Sacral decubitus ulcer (8) History of CVA (cerebrovascular accident) (9) Severe malnutrition (10) Anemia (11) PEG (percutaneous endoscopic gastrostomy) adjustment/replacement/removal (12) Sepsis (13) Acute encephalopathy (14) acute toxic encephalopathy (15) Failure to thrive Review of Systems ROS Narrative cannot obtain given medical condition Physical Exam General Appearance: no apparent distress Lines, tubes and drains: peripheral HEENT: mucous membranes moist Neck: normal inspection Respiratory/Chest: normal breath sounds, no respiratory distress, no accessory muscle use Cardiovascular/Chest: normal rate, regular rhythm Abdomen: normal bowel sounds, soft, no organomegaly, no mass Extremities: normal inspection Skin Exam: other Neurologic: alert Last 24 Hour Vital Signs Date Time Temp Pulse Resp B/P (MAP) Pulse Ox O2 Delivery O2 Flow Rate FiO2 11/04/18 15:43 Room Air 11/04/18 14:47 97.7 95 17 115/72 98 Room Air 11/04/18 12:56 102 19 Room Air 11/04/18 12:55 97.7 102 19 117/79 100 Room Air 11/04/18 12:48 97.7 11/04/18 11:16 97.7 109 19 94 Room Air Laboratory Tests Test 11/04/18 12:14 11/04/18 12:50 Urine Color Yellow Urine Appearance Cloudy Urine pH 6 (4.5-8.0) Urine Specific [place] 1.010 (1.005-1.035) Urine Protein 2+ (NEGATIVE) H Urine Glucose (UA) 2+ (NEGATIVE) H Urine Ketones Negative (NEGATIVE) Urine Blood 5+ (NEGATIVE) H Urine Nitrite Positive (NEGATIVE) H Urine Bilirubin Negative (NEGATIVE) Urine Urobilinogen 4 MG/DL (0.0-1.0) H Urine Leukocyte Esterase 3+ (NEGATIVE) H Urine RBC 10-15 /HPF (0 - 0) H Urine WBC 30-40 /HPF (0 - 0) H Urine Squamous Epithelial Cells None /LPF (NONE/OCC) Urine Bacteria Moderate /HPF (NONE) H White Blood Count 5.7 K/UL (4.8-10.8) Red Blood Count 3.27 M/UL (4.70-6.10) L Hemoglobin 10.1 G/DL (14.2-18.0) L Hematocrit 30.3 % (42.0-52.0) L Mean Corpuscular Volume 93 FL (80-99) Mean Corpuscular Hemoglobin 30.8 PG (27.0-31.0) Mean Corpuscular Hemoglobin Concent 33.3 G/DL (32.0-36.0) Red Cell Distribution Width 15.1 % (11.6-14.8) H Platelet Count 176 K/UL (150-450) Mean Platelet Volume 6.5 FL (6.5-10.1) Neutrophils (%) (Auto) % (45.0-75.0) Lymphocytes (%) (Auto) % (20.0-45.0) Monocytes (%) (Auto) % (1.0-10.0) Eosinophils (%) (Auto) % (0.0-3.0) Basophils (%) (Auto) % (0.0-2.0) Differential Total Cells Counted 100 Neutrophils % (Manual) 95 % (45-75) H Lymphocytes % (Manual) 3 % (20-45) L Monocytes % (Manual) 2 % (1-10) Eosinophils % (Manual) 0 % (0-3) Basophils % (Manual) 0 % (0-2) Band Neutrophils 0 % (0-8) Platelet Estimate Adequate Platelet Morphology Normal Hypochromasia 1+ Anisocytosis 1+ Spherocytes 1+ Prothrombin Time 11.3 SEC (9.30-11.50) Prothromb Time International Ratio 1.1 (0.9-1.1) Activated Partial Thromboplast Time 33 SEC (23-33) Sodium Level 141 MMOL/L (136-145) Potassium Level 3.5 MMOL/L (3.5-5.1) Chloride Level 103 MMOL/L (98-107) Carbon Dioxide Level 33 MMOL/L (21-32) H Anion Gap 6 mmol/L (5-15) Blood Urea Nitrogen 19 mg/dL (7-18) H Creatinine 0.5 MG/DL (0.55-1.30) L Estimat Glomerular Filtration Rate > 60 mL/min (>60) Glucose Level 115 MG/DL (74-106) H Calcium Level 8.5 MG/DL (8.5-10.1) Total Bilirubin 0.7 MG/DL (0.2-1.0) Aspartate Amino Transf (AST/SGOT) 19 U/L (15-37) Alanine Aminotransferase (ALT/SGPT) 19 U/L (12-78) Alkaline Phosphatase 68 U/L (46-116) Total Protein 5.8 G/DL (6.4-8.2) L Albumin 2.1 G/DL (3.4-5.0) L Globulin 3.7 g/dL Albumin/Globulin Ratio 0.6 (1.0-2.7) L Lipase 150 U/L (73-393) Height (Feet): 5 Height (Inches): 8.00 Weight (Pounds): 160 Medications Current Medications Medications (Trade) Dose Ordered Sig/Chace Route PRN Reason Start Time Stop Time Status Last Admin Dose Admin Dexamethasone (Decadron) 4 mg BID ORAL 11/04/18 18:00 12/04/18 17:59 Dextrose (Dextrose 50%) 25 ml Q30M PRN IV Hypoglycemia 11/04/18 14:15 12/04/18 14:14 Dextrose (Dextrose 50%) 50 ml Q30MIN PRN IV Hypoglycemia 11/04/18 14:15 12/04/18 14:14 Dextrose/Sodium Chloride 1,000 ml @ 50 mls/hr Q20H IV 11/04/18 14:06 12/04/18 14:05 Digoxin (Lanoxin) 0.25 mg DAILY ORAL 11/05/18 09:00 12/05/18 08:59 Finasteride (Proscar) 5 mg DAILY@2100 ORAL 11/04/18 21:00 12/04/18 20:59 Heparin Sodium (Porcine) (Heparin 5000 units/ml) 5,000 units EVERY 12 HOURS SUBQ 11/04/18 21:00 12/04/18 20:59 Lorazepam (Ativan 2mg/ml 1ml) 0.5 mg Q4H PRN IV For Anxiety 11/04/18 14:15 11/11/18 14:14 Morphine Sulfate (Morphine Sulfate) 1 mg Q4H PRN IVP For Pain 11/04/18 14:15 11/11/18 14:14 Ondansetron HCl (Zofran) 4 mg Q6H PRN IVP Nausea & Vomiting 11/04/18 14:15 12/04/18 14:14 Sitagliptin Phosphate (Januvia) 50 mg DAILY ORAL 11/05/18 09:00 12/05/18 08:59 Assessment/Plan Problem List: (1) Valproic acid toxicity ICD Codes: T42.6X1A - Poisoning by other antiepileptic and sedative-hypnotic drugs, accidental (unintentional), initial encounter SNOMED: 910664595 (2) Acute encephalopathy ICD Codes: G93.40 - Encephalopathy, unspecified SNOMED: 81352831, 204065498 (3) Deep tissue injury ICD Codes: T14.8XXA - Other injury of unspecified body region, initial encounter SNOMED: 784745661 (4) acute toxic encephalopathy (5) Altered level of consciousness ICD Codes: R40.4 - Transient alteration of awareness SNOMED: 6519270 (6) Sepsis ICD Codes: A41.9 - Sepsis, unspecified organism SNOMED: 72266671 (7) Hyponatremia ICD Codes: E87.1 - Hypo-osmolality and hyponatremia SNOMED: 16615767 (8) Dysphagia ICD Codes: R13.10 - Dysphagia, unspecified SNOMED: 91674090, 602687195 (9) Oligodendroglioma ICD Codes: C71.9 - Malignant neoplasm of brain, unspecified SNOMED: 85278534, 170562924 (10) Brain tumor ICD Codes: D49.6 - Neoplasm of unspecified behavior of brain SNOMED: 613774762 (11) Cardiomyopathy ICD Codes: I42.9 - Cardiomyopathy, unspecified SNOMED: 76463079 (12) Sacral decubitus ulcer Assessment & Plan: Pt presented on admission with full thickness sacral pressure injury with undermining. Base of viable with trace amt of slough .Bone is visible. undermining clockwise 9-6o'clock ,at 12 o'clock base of wound is necrotic.mixed slough and soft necrosis noted along borders. Periwound erythematous and indurated.Mild odor resolved after cleansing of wound. No exudate noted. Both heels are firm and blanchable. No evidence of skin breakdown noted to all other bony prominences. Tx.Plan: Cleanse wound with Saline. Loosely pack with Hydrogel impregnated Kerlix packing .Apply Triad paste periwound. Cover with Optifoam drsg Every shift ( Q12Hr). Apply Cavilon Skin Barrier to both heels .Cover each heel with Optifoam drsg. Change every 7 days and prn Apply Cavilon Skin Barrier to both hips. Cover each hip with Optifoam drsg. Change every 7 days and prn. Air fluidized mattress. Reposition at least every 2hours or as tolerated. Off-load heels with pillow. ICD Codes: L89.159 - Pressure ulcer of sacral region, unspecified stage SNOMED: 773304651 (13) History of CVA (cerebrovascular accident) ICD Codes: Z86.73 - Personal history of transient ischemic attack (TIA), and cerebral infarction without residual deficits SNOMED: 120825470 (14) Severe malnutrition Assessment & Plan: Needs PEG. planned for tomorrow. appreciate GI input nutrition input ICD Codes: E43 - Unspecified severe protein-calorie malnutrition SNOMED: 91156931 (15) Anemia ICD Codes: D64.9 - Anemia, unspecified SNOMED: 246536492 (16) PEG (percutaneous endoscopic gastrostomy) adjustment/replacement/removal ICD Codes: Z43.1 - Encounter for attention to gastrostomy SNOMED: 334614066, 292239181 (17) Dehydration ICD Codes: E86.0 - Dehydration SNOMED: 12968763 (18) Failure to thrive SNOMED: 53036300 (19) Diabetes mellitus ICD Codes: E11.9 - Type 2 diabetes mellitus without complications SNOMED: 37952406 (20) Hypertension ICD Codes: I10 - Essential (primary) hypertension SNOMED: 56467212 Harry Rivas November 04, 2018 17:12
--- NOTE | 2018-11-04 19:31 | NUR ---
HAND-OFF: Report given to CHIDI Sheth.
--- NOTE | 2018-11-04 19:37 | History & Physical ---
History and Physical History & Physicial Dictated for Int Med-Dr Braun no. [id number]. Jesus Kidd MD November 04, 2018 19:37
--- NOTE | 2018-11-04 19:51 | NUR ---
NURSE NOTES: Pt is in bed, asleep. No acute distress noted. D5 1/2 NS running at 50ml/hr. Mota draining yellow urine. Pt on room air. Pt is scheduled for EGD with PEG placement tomorrow. Consent signed. Bed locked low in position,side rails up, call light within reach. Bed alarm on. Wound dressing dry and intact. Fall precaution implemented.
[2018-11-04 20:00] VITALS: BP 122/73
[2018-11-04] MEDS: Heparin 5000 units/ml inj SUBQ SCH (21:00)
--- NOTE | 2018-11-04 21:00 | History and Physical Report ---
DATE OF ADMISSION: 11/04/2018 CHIEF COMPLAINT: The patient is a 68-year-old male with history of brain cancer, who presents with chief complaint of dysphagia and need for PEG placement. HISTORY OF PRESENT ILLNESS: The patient has history of oligodendroglioma, WHO grade 2 brain cancer. The patient was admitted to [facility] in September 2018. Please see history and physical and discharge summary dictated at that time. The patient presented to [facility]. The patient has been unable to eat at home. The patient was evaluated in [facility]. The patient is admitted for failure to thrive and PEG placement evaluation. REVIEW OF SYSTEMS: Unable to assess secondary to the patient's mental status. PAST MEDICAL HISTORY: Significant for: 1. Oligodendroglioma, WHO grade 2 brain cancer. 2. Seizure disorder. 3. Diabetes type 2. 4. History of cerebrovascular accident. 5. Right hemiparesis. 6. Hypertension. 7. Coronary artery disease. 8. Expressive aphasia. PAST SURGICAL HISTORY: Significant for: 1. Craniotomy secondary to brain tumor as above. 2. Appendectomy. 3. Tonsillectomy. 4. Debridement of sacral decubitus ulcer on October 13, 2018, at [facility]. CURRENT MEDICATIONS: 1. Eliquis 5 mg one tablet p.o. twice daily. 2. Vitamin C 500 mg p.o. daily. 3. Lipitor 80 mg p.o. nightly. 4. Carvedilol 25 mg p.o. twice daily. 5. Vitamin D 50,000 units p.o. weekly. 6. Dexamethasone 4 mg p.o. daily. 7. Digoxin 0.25 mg p.o. daily. 8. Depakote 500 mg p.o. twice daily. 9. Finasteride 5 mg p.o. daily. 10. Insulin sliding scale. 11. Levemir 6 units subcutaneously daily. 12. Vimpat 200 mg p.o. twice daily. 13. Lamotrigine 25 mg p.o. daily. 14. Losartan 25 mg p.o. daily. 15. Glucophage 1000 mg p.o. twice daily. 16. Fycompa 4 mg p.o. daily. 17. Seroquel 25 mg p.o. twice daily. 18. Zantac 150 mg p.o. daily. 19. Januvia 50 mg p.o. daily. 20. Flomax 0.4 mg p.o. nightly. 21. Temozolomide 5 mg p.o. daily. 22. Zinc sulfate 220 mg p.o. daily. ALLERGIES: No known drug allergies. SOCIAL HISTORY: The patient is . The patient is currently a resident of [facility]. The patient denies tobacco or alcohol use. PHYSICAL EXAMINATION: VITAL SIGNS: Temperature 97.7, respirations 19, pulse 102, blood pressure 117/79. GENERAL: The patient is a well-developed, well-nourished male, in no apparent distress. HEENT: Eyes, pupils are equal and responsive to light and accommodation. Extraocular movements are intact. NECK: Supple without lymphadenopathy. CHEST: Lungs are clear to auscultation bilaterally without wheezes or rales. CARDIOVASCULAR: Regular rhythm and rate. S1 and S2 are normal without murmurs, rubs, or gallops. ABDOMEN: Soft, nontender, nondistended. Positive bowel sounds. No evidence of hepatosplenomegaly. Currently, no rebound or guarding noted. RECTAL: Not performed. GENITAL: Not performed. NEUROLOGIC: Unable to assess secondary to the patient's mental status. LABORATORY STUDIES: WBC 5.7, hemoglobin 10.1, hematocrit 30.3, platelets 176,000. Sodium 141, potassium 3.5, chloride 103, CO2 33, BUN 19, creatinine 0.5, glucose 115. ASSESSMENT: This is a 68-year-old male with: 1. Dysphagia. 2. Failure to thrive. 3. Oligodendroglioma, WHO grade 2 brain cancer. 4. Seizure disorder. 5. History of cerebrovascular accident. 6. Right hemiparesis. 7. Hypertension. 8. Coronary artery disease. 9. Expressive aphasia. TREATMENT: 1. Dysphagia. A Gastroenterology consultation has been obtained with Dr. Baldev Burnett. The patient may require PEG placement for parenteral feeding. We will follow recommendation of Gastroenterology. 2. Oligodendroglioma, WHO grade 2 brain cancer. The patient is status post resection at [facility]. The patient is followed by Neurology. 3. Seizure disorder. Continue Vimpat as above. 4. Diabetes type 2. Continue NovoLog sliding scale. 5. History of cerebrovascular accident. 6. Right hemiparesis. 7. Hypertension. Continue losartan as above. 8. Coronary artery disease. 9. Expressive aphasia. Jesus Kidd M.D. DR: Shweta JOB#: [id number] CC:
[2018-11-05] VITALS (13 sets, daily range): BP systolic 117–152; BP diastolic 76–97
[2018-11-05 05:10] LABS: HEMATOCRIT 28.8 % (42.0-52.0); HEMOGLOBIN 9.6 G/DL (14.2-18.0); MEAN CORPUSCULAR VOLUME 94 FL (80-99); PLATELET COUNT 146 K/UL (150-450); RED BLOOD COUNT 3.08 M/UL (4.70-6.10); RED CELL DISTRIBUTION WIDTH 14.8 % (11.6-14.8); WHITE BLOOD COUNT 4.4 K/UL (4.8-10.8)
[2018-11-05 05:31] LABS: ALANINE AMINOTRANSFERASE 18 U/L (12-78); ALBUMIN 1.9 G/DL (3.4-5.0); ALBUMIN/GLOBULIN RATIO 0.5 (1.0-2.7); ALKALINE PHOSPHATASE 68 U/L (46-116); ANION GAP 4 mmol/L (5-15); ASPARTATE AMINO TRANSFERASE 18 U/L (15-37); BILIRUBIN,TOTAL 0.5 MG/DL (0.2-1.0); BLOOD UREA NITROGEN 13 mg/dL (7-18); CALCIUM 8.3 MG/DL (8.5-10.1); CARBON DIOXIDE 32 MMOL/L (21-32); CHLORIDE 103 MMOL/L (98-107); CREATININE 0.5 MG/DL (0.55-1.30); SODIUM 139 MMOL/L (136-145)
--- NOTE | 2018-11-05 06:00 | NUR ---
NURSE NOTES: Pt is in bed, awake and verbal. No acute distress noted. Sacral wound care provided, dressing changed. Morphine 1mg IVP given for pain as ordered PRN. Pt is now NPO for EGD today. D5 1/2 Ns running at 50ml/hr. Pt is on a p200 matrass. Fall precaution in place. Pt will be monitored.
--- NOTE | 2018-11-05 07:20 | NUR ---
HAND-OFF: Report given to Leo Bailey RN.
--- NOTE | 2018-11-05 07:45 | NUR ---
NURSE NOTES: Patient awake, on room air, no sign of distress and shortness of breath; IV Left-Wrist D51/2NS running at 50cc; plan for EGD and G-Tube placement, consent of file; NPO for EGD; side rails up x2, breaks engaged, bed at lowest position. call light within reach; will keep monitoring.
[2018-11-05] MEDS: sitaGLIPtin 50mg tab ORAL SCH (08:28)
[2018-11-05] MEDS: Heparin 5000 units/ml inj SUBQ SCH ×2 (08:29→21:00)
--- NOTE | 2018-11-05 08:29 | NUR ---
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 UTI VS: BP 129/81, P 109, T 97.7, RR 19, SpO2 94 WBC 4.4, RBC 3.08, H&H 9.6/28.8, BUIN 19, CR 0.5, URINE: Protein, Blood 5+, Nitrite POSITIVE IS:MORPHINE SULFATE 4mg IVP NS x1L IV ADMITTED TO MED/SURG
--- NOTE | 2018-11-05 09:30 | Pre-Procedure Note/Attestation ---
Pre-Procedure Note/Attestation Complete Prior to Procedure Planned Procedure: not applicable Procedure Narrative: egd/peg Indications for Procedure Pre-Operative Diagnosis: dysphagia Attestation I attest that I discussed the nature of the procedure; its benefits; risks and complications; and alternatives (and the risks and benefits of such alternatives ), prior to the procedure, with the patient (or the patient's legal office services representative). I attest that, if there was a reasonable possibility of needing a blood transfusion, the patient (or the patient's legal office services representative) was given the [facility] standardized written summary, pursuant to the Jose Eb Blood Safety Act ([place] Health and Safety Code # 1645, as amended). I attest that I re-evaluated the patient just prior to the surgery and that there has been no change in the patient's H&P, except as documented below: Baldev Burnett MD November 05, 2018 09:30
--- NOTE | 2018-11-05 09:31 | General Progress Note ---
Assessment/Plan Problem List: (1) Hypertension ICD Codes: I10 - Essential (primary) hypertension SNOMED: 86550244 (2) Diabetes mellitus ICD Codes: E11.9 - Type 2 diabetes mellitus without complications SNOMED: 40012562 (3) Failure to thrive SNOMED: 11007682 Assessment/Plan: plan PEG for today Subjective ROS Limited/Unobtainable: No Allergies: Coded Allergies: No Known Allergies (Unverified , 09/27/18) Objective Last 24 Hour Vital Signs Date Time Temp Pulse Resp B/P (MAP) Pulse Ox O2 Delivery O2 Flow Rate FiO2 11/05/18 09:00 Room Air 11/05/18 08:00 98.5 96 20 125/80 (95) 99 11/05/18 04:00 98.3 99 20 120/83 (95) 100 11/05/18 00:00 98.6 106 18 117/76 (90) 100 11/04/18 21:00 Room Air 11/04/18 20:00 98.4 102 18 122/73 (89) 95 11/04/18 16:00 98.0 101 18 112/73 (86) 95 11/04/18 15:43 Room Air 11/04/18 14:47 97.7 95 17 115/72 98 Room Air 11/04/18 12:56 102 19 Room Air 11/04/18 12:55 97.7 102 19 117/79 100 Room Air 11/04/18 12:48 97.7 11/04/18 11:16 97.7 109 19 94 Room Air Intake and Output 11/04/18 11/05/18 18:59 06:59 Intake Total 50 ml 600 ml Output Total 200 ml 500 ml Balance -150 ml 100 ml Intake IV Total 50 ml 600 ml Output Urine Total 200 ml 500 ml # Bowel Movements 2 Laboratory Tests 11/04/18 12:14: Urine Color Yellow, Urine Appearance Cloudy, Urine pH 6, Urine Specific [place] 1.010, Urine Protein 2+H, Urine Glucose (UA) 2+H, Urine Ketones Negative, Urine Blood 5+H, Urine Nitrite PositiveH, Urine Bilirubin Negative, Urine Urobilinogen 4H, Urine Leukocyte Esterase 3+H, Urine RBC 10-15H, Urine WBC 30- 40H, Urine Squamous Epithelial Cells None, Urine Bacteria ModerateH 11/04/18 12:50: White Blood Count 5.7, Red Blood Count 3.27L, Hemoglobin 10.1L, Hematocrit 30.3L , Mean Corpuscular Volume 93, Mean Corpuscular Hemoglobin 30.8, Mean Corpuscular Hemoglobin Concent 33.3, Red Cell Distribution Width 15.1H, Platelet Count 176, Mean Platelet Volume 6.5, Neutrophils (%) (Auto) , Lymphocytes (%) (Auto) , Monocytes (%) (Auto) , Eosinophils (%) (Auto) , Basophils (%) (Auto) , Differential Total Cells Counted 100, Neutrophils % ( Manual) 95H, Lymphocytes % (Manual) 3L, Monocytes % (Manual) 2, Eosinophils % ( Manual) 0, Basophils % (Manual) 0, Band Neutrophils 0, Platelet Estimate Adequate, Platelet Morphology Normal, Hypochromasia 1+, Anisocytosis 1+, Spherocytes 1+, Prothrombin Time 11.3, Prothromb Time International Ratio 1.1, Activated Partial Thromboplast Time 33, Sodium Level 141, Potassium Level 3.5, Chloride Level 103, Carbon Dioxide Level 33H, Anion Gap 6, Blood Urea Nitrogen 19H, Creatinine 0.5L, Estimat Glomerular Filtration Rate > 60, Glucose Level 115H, Calcium Level 8.5, Total Bilirubin 0.7, Aspartate Amino Transf (AST/SGOT) 19, Alanine Aminotransferase (ALT/SGPT) 19, Alkaline Phosphatase 68, Total Protein 5.8L, Albumin 2.1L, Globulin 3.7, Albumin/Globulin Ratio 0.6L, Lipase 150 11/05/18 04:37: White Blood Count 4.4L, Red Blood Count 3.08L, Hemoglobin 9.6L, Hematocrit 28.8L , Mean Corpuscular Volume 94, Mean Corpuscular Hemoglobin 31.2H, Mean Corpuscular Hemoglobin Concent 33.4, Red Cell Distribution Width 14.8, Platelet Count 146L, Mean Platelet Volume 7.2, Neutrophils (%) (Auto) , Lymphocytes (%) ( Auto) , Monocytes (%) (Auto) , Eosinophils (%) (Auto) , Basophils (%) (Auto) , Neutrophils % (Manual) [Pending], Lymphocytes % (Manual) [Pending], Platelet Estimate [Pending], Platelet Morphology [Pending], Prothrombin Time 11.0, Prothromb Time International Ratio 1.0, Activated Partial Thromboplast Time 32, Sodium Level 139, Potassium Level 4.0, Chloride Level 103, Carbon Dioxide Level 32, Anion Gap 4L, Blood Urea Nitrogen 13, Creatinine 0.5L, Estimat Glomerular Filtration Rate > 60, Glucose Level 264#H, Calcium Level 8.3L, Total Bilirubin 0.5, Aspartate Amino Transf (AST/SGOT) 18, Alanine Aminotransferase (ALT/SGPT) 18, Alkaline Phosphatase 68, Total Protein 5.7L, Albumin 1.9L, Globulin 3.8, Albumin/Globulin Ratio 0.5L Height (Feet): 5 Height (Inches): 5.00 Weight (Pounds): 150 General Appearance: no apparent distress EENT: normal ENT inspection Neck: supple Cardiovascular: normal rate Respiratory/Chest: decreased breath sounds Abdomen: normal bowel sounds, non tender, soft Extremities: non-tender Baldev Burnett MD November 05, 2018 09:31
--- NOTE | 2018-11-05 09:59 | NUR ---
NURSE NOTES: I received a call from GI lab, that Adam RICO, ordered NS 1000cc; I communicated MD Feng regarding this new order. Patient been getting D51/2NS 1000cc which is ordered by MD Feng. I asked MD Feng that wether I need to DC the previous D51/2NS 1000cc bag; or patient is going to get the NS at the GI lab?
--- NOTE | 2018-11-05 10:25 | NUR ---
NURSE NOTES: Order received from MD Feng to EMI D51/2NS and rhiannon ANTUNEZ. Order carried out as MD's order.
[2018-11-05] MEDS ORDERED: cefOXitin Sod 1 GM in D5W 55 ML IVPB ONE (12:00)
--- NOTE | 2018-11-05 12:14 | NUR ---
RD ASSESSMENT & RECOMMENDATIONS SEE CARE ACTIVITY FOR COMPLETE ASSESSMENT DAILY ESTIMATED NEEDS: Needs based on Advanced wound, wt loss/ 56kg 30-35 kcals/kg 6041-1629 total kcals 1.5-2.0 g protein/kg 84-112 g total protein 25-30 mL/kg 8555-2171 total fluid mLs NUTRITION DIAGNOSIS: * Increased kcal/prot needs R/T wound healing, wt loss as evidenced by sacral stage 4 wound, possible significant wt loss of 19lbs/ 13.4% in <1 month. * Swallowing difficulty R/T dysphagia w/ h/o brain tumor and CVA as evidenced by pt on [facility] soft texture, NTL GRINDER, admitted w/ FTT, now NPO, pending PEG placement. CURRENT TF:NPO ENTERAL NUTRITION RECOMMENDATIONS: Glucerna 1.5 @ 50ml/hr x 24 hrs to provide 1200ml, 1800kcal, 99g prot, 911ml free water * S/p PEG placement, as medically appropriate, initiate TF * Initiate Glucerna 1.5 @ 10ml/hr x 6 hrs, advance 10ml q 4-6 hrs as tolerated to goal rate. * HOB over 30 degrees/ water fluhs per MD ADDITIONAL RECOMMENDATIONS: * TXR PT TO BED WITH BEDSCALE, OBTAIN CALIBRATED BEDSCALE WT * Check lytes daily w/ TF, replete as needed - PT AT HIGH RISK FOR REFEEDING SYNDROME * Wound healing: add Vit C 500mg BID and Ziyad 1pkt BID * Add accucheck w/ SSI once TF initiates -> Monitor BGs closely- h/o DM, on decadron, on TF
--- NOTE | 2018-11-05 12:49 | Pulmonology Progress Note ---
Assessment/Plan Problems: (1) Severe malnutrition (2) Sacral decubitus ulcer (3) Oligodendroglioma (4) History of CVA (cerebrovascular accident) (5) Cardiomyopathy (6) Diabetes mellitus (7) Hypertension (8) Brain tumor Assessment/Plan all reviewediv fluids NPO GI evaluation appreciated seizure precaution, no seizures so far family doesn't want any seizure meds nutrition evaluation dvt prophylaxis check coagulation family not amenable to comfort care Subjective ROS Limited/Unobtainable: Yes Interval Events: awake, not coherent Allergies: Coded Allergies: No Known Allergies (Unverified , 09/27/18) Objective Last 24 Hour Vital Signs Date Time Temp Pulse Resp B/P (MAP) Pulse Ox O2 Delivery O2 Flow Rate FiO2 11/05/18 09:00 Room Air 11/05/18 08:00 98.5 96 20 125/80 (95) 99 11/05/18 04:00 98.3 99 20 120/83 (95) 100 11/05/18 00:00 98.6 106 18 117/76 (90) 100 11/04/18 21:00 Room Air 11/04/18 20:00 98.4 102 18 122/73 (89) 95 11/04/18 16:00 98.0 101 18 112/73 (86) 95 11/04/18 15:43 Room Air 11/04/18 14:47 97.7 95 17 115/72 98 Room Air 11/04/18 12:56 102 19 Room Air 11/04/18 12:55 97.7 102 19 117/79 100 Room Air Intake and Output 11/04/18 11/05/18 19:00 07:00 Intake Total 50 ml 600 ml Output Total 200 ml 500 ml Balance -150 ml 100 ml Intake IV Total 50 ml 600 ml Output Urine Total 200 ml 500 ml # Bowel Movements 2 General Appearance: WD/WN HEENT: normocephalic, atraumatic Respiratory/Chest: chest wall non-tender, lungs clear Cardiovascular: normal peripheral pulses, normal rate Abdomen: normal bowel sounds, soft, non tender Genitourinary: normal external genitalia Extremities: no clubbing Skin: no lesions 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 normal Microbiology Date/Time Source Procedure Growth Status 11/04/18 12:14 Urine,Clean Catch Urine Culture - Preliminary Gram Negative Bacillus 1 Resulted Laboratory Tests 11/04/18 12:50: White Blood Count 5.7, Red Blood Count 3.27L, Hemoglobin 10.1L, Hematocrit 30.3L , Mean Corpuscular Volume 93, Mean Corpuscular Hemoglobin 30.8, Mean Corpuscular Hemoglobin Concent 33.3, Red Cell Distribution Width 15.1H, Platelet Count 176, Mean Platelet Volume 6.5, Neutrophils (%) (Auto) , Lymphocytes (%) (Auto) , Monocytes (%) (Auto) , Eosinophils (%) (Auto) , Basophils (%) (Auto) , Differential Total Cells Counted 100, Neutrophils % ( Manual) 95H, Lymphocytes % (Manual) 3L, Monocytes % (Manual) 2, Eosinophils % ( Manual) 0, Basophils % (Manual) 0, Band Neutrophils 0, Platelet Estimate Adequate, Platelet Morphology Normal, Hypochromasia 1+, Anisocytosis 1+, Spherocytes 1+, Prothrombin Time 11.3, Prothromb Time International Ratio 1.1, Activated Partial Thromboplast Time 33, Sodium Level 141, Potassium Level 3.5, Chloride Level 103, Carbon Dioxide Level 33H, Anion Gap 6, Blood Urea Nitrogen 19H, Creatinine 0.5L, Estimat Glomerular Filtration Rate > 60, Glucose Level 115H, Calcium Level 8.5, Total Bilirubin 0.7, Aspartate Amino Transf (AST/SGOT) 19, Alanine Aminotransferase (ALT/SGPT) 19, Alkaline Phosphatase 68, Total Protein 5.8L, Albumin 2.1L, Globulin 3.7, Albumin/Globulin Ratio 0.6L, Lipase 150 11/05/18 04:37: White Blood Count 4.4L, Red Blood Count 3.08L, Hemoglobin 9.6L, Hematocrit 28.8L , Mean Corpuscular Volume 94, Mean Corpuscular Hemoglobin 31.2H, Mean Corpuscular Hemoglobin Concent 33.4, Red Cell Distribution Width 14.8, Platelet Count 146L, Mean Platelet Volume 7.2, Neutrophils (%) (Auto) , Lymphocytes (%) ( Auto) , Monocytes (%) (Auto) , Eosinophils (%) (Auto) , Basophils (%) (Auto) , Differential Total Cells Counted 100, Neutrophils % (Manual) 90H, Lymphocytes % (Manual) 6L, Monocytes % (Manual) 4, Eosinophils % (Manual) 0, Basophils % ( Manual) 0, Band Neutrophils 0, Platelet Estimate DecreasedL, Platelet Morphology Normal, Hypochromasia 2+, Prothrombin Time 11.0, Prothromb Time International Ratio 1.0, Activated Partial Thromboplast Time 32, Sodium Level 139, Potassium Level 4.0, Chloride Level 103, Carbon Dioxide Level 32, Anion Gap 4L, Blood Urea Nitrogen 13, Creatinine 0.5L, Estimat Glomerular Filtration Rate > 60, Glucose Level 264#H, Calcium Level 8.3L, Total Bilirubin 0.5, Aspartate Amino Transf (AST/SGOT) 18, Alanine Aminotransferase (ALT/SGPT) 18, Alkaline Phosphatase 68, Total Protein 5.7L, Albumin 1.9L, Globulin 3.8, Albumin /Globulin Ratio 0.5L Current Medications Medications (Trade) Dose Ordered Sig/Chace Route PRN Reason Start Time Stop Time Status Last Admin Dose Admin Dexamethasone (Decadron) 4 mg BID ORAL 11/04/18 18:00 12/04/18 17:59 11/04/18 17:44 Dextrose (Dextrose 50%) 25 ml Q30M PRN IV Hypoglycemia 11/04/18 14:15 12/04/18 14:14 Dextrose (Dextrose 50%) 50 ml Q30MIN PRN IV Hypoglycemia 11/04/18 14:15 12/04/18 14:14 Digoxin (Lanoxin) 0.25 mg DAILY ORAL 11/05/18 09:00 12/05/18 08:59 Finasteride (Proscar) 5 mg DAILY@2100 ORAL 11/04/18 21:00 12/04/18 20:59 11/04/18 21:23 Heparin Sodium (Porcine) (Heparin 5000 units/ml) 5,000 units EVERY 12 HOURS SUBQ 11/04/18 21:00 12/04/18 20:59 Lorazepam (Ativan 2mg/ml 1ml) 0.5 mg Q4H PRN IV For Anxiety 11/04/18 14:15 11/11/18 14:14 Morphine Sulfate (Morphine Sulfate) 1 mg Q4H PRN IVP For Pain 11/04/18 14:15 11/11/18 14:14 11/05/18 05:50 Ondansetron HCl (Zofran) 4 mg Q6H PRN IVP Nausea & Vomiting 11/04/18 14:15 12/04/18 14:14 Sitagliptin Phosphate (Januvia) 50 mg DAILY ORAL 11/05/18 09:00 12/05/18 08:59 Sodium Chloride 1,000 ml @ 50 mls/hr Q20H IV 11/05/18 09:30 11/05/18 15:00 11/05/18 09:30 Raul Feng MD November 05, 2018 12:49
--- NOTE | 2018-11-05 12:55 | NUR ---
NURSE NOTES: Wound care provided, patient tolerated well. Patient left for EGD and PEG placement.
[2018-11-05] MEDS ORDERED: Propofol 200mg/20ml IV ONE (13:00)
[2018-11-05] MEDS ORDERED: Lidocaine 1% MPF 10mg/ml 5ml ONE (13:00)
[2018-11-05] MEDS ORDERED: fentaNYL 100 mcg/2 mL IV ONE (13:01)
--- NOTE | 2018-11-05 13:45 | Anethesia Preoperative Eval ---
Anesthesia Pre-op PMH/ROS General Date of Evaluation: November 05, 2018 Time of Evaluation: 12:45 Anesthesiologist: Rubina Edwards CRNA ASA Score: ASA 3 Mallampati Score Class I : Soft palate, uvula, fauces, pillars visible Class II: Soft palate, uvula, fauces visible Class III: Soft palate, base of uvula visible Class IV: Only hard plate visible Mallampati Classification: Class II Surgeon: Hortencia Diagnosis: FTT, dysphagia Surgical Procedure: EGD, PEG insertion Anesthesia History: none Social History: smoking Family History: no anesthesia problems Allergies: Coded Allergies: No Known Allergies (Unverified , 09/27/18) Medications: see eMAR Patient NPO?: Yes NPO Date: November 05, 2018 NPO Time: 00:00 Past Medical History Cardiovascular: Reports: HTN, other - cardiomyopathy; Denies: CAD, [place], valve dz, arrhythmia Pulmonary: Denies: asthma, COPD, MELANIA, other Gastrointestinal/Genitourinary: Denies: GERD, CRI, ESRD, other Neurologic/Psychiatric: Reports: dementia, other - Brain tumor, encephalopathy , CVA; Denies: CVA, depression/anxiety, TIA Endocrine: Denies: DM, hypothyroidism, steroids, other HEENT: Denies: cataract (L), cataract (R), glaucoma, [place] (L), [place] (R), other Hematology/Immune: Denies: anemia, DVT, bleeding disorder, other Musculoskeletal/Integumentary: Reports: OA, other - Decubitus ulcer; Denies: RA, DJD, DDD, edema PMH Narrative: as noted above PSxH Narrative: see H & P Anesthesia Pre-op Phys. Exam Physician Exam Last Vital Signs Date Time Temp Pulse Resp B/P (MAP) Pulse Ox O2 Delivery O2 Flow Rate FiO2 11/05/18 12:00 98.0 90 20 120/77 (91) 99 11/05/18 09:00 Room Air Constitutional: NAD Neurologic: other - dementia, confused Cardiovascular: RRR Respiratory: CTA Gastrointestinal: S/NT/ND Airway Exam Mallampati Score: Class II MO: full Neck: FROM TMD: > 3 FB ROM: full Teeth: intact Dentures: no upper, no lower Anesthesia Pre-op A/P Labs Hematology Test 11/05/18 04:37 White Blood Count 4.4 K/UL (4.8-10.8) L Red Blood Count 3.08 M/UL (4.70-6.10) L Hemoglobin 9.6 G/DL (14.2-18.0) L Hematocrit 28.8 % (42.0-52.0) L Mean Corpuscular Volume 94 FL (80-99) Mean Corpuscular Hemoglobin 31.2 PG (27.0-31.0) H Mean Corpuscular Hemoglobin Concent 33.4 G/DL (32.0-36.0) Red Cell Distribution Width 14.8 % (11.6-14.8) Platelet Count 146 K/UL (150-450) L Mean Platelet Volume 7.2 FL (6.5-10.1) Neutrophils (%) (Auto) % (45.0-75.0) Lymphocytes (%) (Auto) % (20.0-45.0) Monocytes (%) (Auto) % (1.0-10.0) Eosinophils (%) (Auto) % (0.0-3.0) Basophils (%) (Auto) % (0.0-2.0) Differential Total Cells Counted 100 Neutrophils % (Manual) 90 % (45-75) H Lymphocytes % (Manual) 6 % (20-45) L Monocytes % (Manual) 4 % (1-10) Eosinophils % (Manual) 0 % (0-3) Basophils % (Manual) 0 % (0-2) Band Neutrophils 0 % (0-8) Platelet Estimate Decreased L Platelet Morphology Normal Hypochromasia 2+ Coagulation Test 11/05/18 04:37 Prothrombin Time 11.0 SEC (9.30-11.50) Prothromb Time International Ratio 1.0 (0.9-1.1) Activated Partial Thromboplast Time 32 SEC (23-33) Chemistry Test 11/05/18 04:37 Sodium Level 139 MMOL/L (136-145) Potassium Level 4.0 MMOL/L (3.5-5.1) Chloride Level 103 MMOL/L (98-107) Carbon Dioxide Level 32 MMOL/L (21-32) Anion Gap 4 mmol/L (5-15) L Blood Urea Nitrogen 13 mg/dL (7-18) Creatinine 0.5 MG/DL (0.55-1.30) L Estimat Glomerular Filtration Rate > 60 mL/min (>60) Glucose Level 264 MG/DL (74-106) #H Calcium Level 8.3 MG/DL (8.5-10.1) L Total Bilirubin 0.5 MG/DL (0.2-1.0) Aspartate Amino Transf (AST/SGOT) 18 U/L (15-37) Alanine Aminotransferase (ALT/SGPT) 18 U/L (12-78) Alkaline Phosphatase 68 U/L (46-116) Total Protein 5.7 G/DL (6.4-8.2) L Albumin 1.9 G/DL (3.4-5.0) L Globulin 3.8 g/dL Albumin/Globulin Ratio 0.5 (1.0-2.7) L Studies Pre-op Studies: CXR - LEFT atelectasis, no acute disease Risk Assessment & Plan Assessment: ASA 3, OK to proceed Plan: MAC Status Change Before Surgery: No Pre-Antibiotics Given Within 1 Hr of Incision: No Rubina Edwards CRNA November 05, 2018 13:45
--- NOTE | 2018-11-05 13:46 | Immediate Post-Op Evaluation ---
Immediate Post-Op Evalulation Immediate Post-Op Evalulation Procedure: EGD, PEG insertion Date of Evaluation: November 05, 2018 Time of Evaluation: 13:25 IV Fluids: 0.9 NS 50 ml Blood Pressure Systolic: 119 Blood Pressure Diastolic: 93 Pulse Rate: 102 Respiratory Rate: 16 O2 Sat by Pulse Oximetry: 99 Temperature (Fahrenheit): 97.0 Pain Score (1-10): 0 Nausea: No Vomiting: No Complications none Patient Status: awake, reacts Hydration Status: adequate Drug: Cefoxitin 1 gm IV Given Within 1 Hr of Incision: Yes Time Given: 13:05 Rubina Edwards CRNA November 05, 2018 13:46
--- NOTE | 2018-11-05 14:01 | Endoscopy Procedure Note ---
Endoscopy Procedure Note General Indication for Procedure: dysphagia Procedures Performed: EGD, PEG Operative Findings/Diagnosis: same Specimen: yes Pt Tolerated Procedure Well: Yes Estimated Blood Loss: none Anesthesia Anesthesiologist: khadar Anesthesia: MAC Inserted Devices Implant(s) used?: No GI Core Measures 50 yrs or older w/o bx or poly: Not Applicable 10yrs. F/U recommended: Not Applicable Baldev Burnett MD November 05, 2018 14:01
--- NOTE | 2018-11-05 14:25 | Surgery Progress Note ---
Surgery Progress Note Subjective Additional Comments no acute events. comfortable. planned for PEG today. Objective Last 24 Hour Vital Signs Date Time Temp Pulse Resp B/P (MAP) Pulse Ox O2 Delivery O2 Flow Rate FiO2 11/05/18 13:46 102 16 99 11/05/18 12:00 98.0 90 20 120/77 (91) 99 11/05/18 09:00 Room Air 11/05/18 08:00 98.5 96 20 125/80 (95) 99 11/05/18 04:00 98.3 99 20 120/83 (95) 100 11/05/18 00:00 98.6 106 18 117/76 (90) 100 11/04/18 21:00 Room Air 11/04/18 20:00 98.4 102 18 122/73 (89) 95 11/04/18 16:00 98.0 101 18 112/73 (86) 95 11/04/18 15:43 Room Air 11/04/18 14:47 97.7 95 17 115/72 98 Room Air I&O Intake and Output 11/04/18 11/05/18 19:00 07:00 Intake Total 50 ml 600 ml Output Total 200 ml 500 ml Balance -150 ml 100 ml Intake IV Total 50 ml 600 ml Output Urine Total 200 ml 500 ml # Bowel Movements 2 Dressing: saturated Wound: other Drains: other Cardiovascular: RSR Respiratory: clear Abdomen: soft, present bowel sounds, non-distended Extremities: no tenderness, no cyanosis Laboratory Tests Test 11/05/18 04:37 White Blood Count 4.4 K/UL (4.8-10.8) L Red Blood Count 3.08 M/UL (4.70-6.10) L Hemoglobin 9.6 G/DL (14.2-18.0) L Hematocrit 28.8 % (42.0-52.0) L Mean Corpuscular Volume 94 FL (80-99) Mean Corpuscular Hemoglobin 31.2 PG (27.0-31.0) H Mean Corpuscular Hemoglobin Concent 33.4 G/DL (32.0-36.0) Red Cell Distribution Width 14.8 % (11.6-14.8) Platelet Count 146 K/UL (150-450) L Mean Platelet Volume 7.2 FL (6.5-10.1) Neutrophils (%) (Auto) % (45.0-75.0) Lymphocytes (%) (Auto) % (20.0-45.0) Monocytes (%) (Auto) % (1.0-10.0) Eosinophils (%) (Auto) % (0.0-3.0) Basophils (%) (Auto) % (0.0-2.0) Differential Total Cells Counted 100 Neutrophils % (Manual) 90 % (45-75) H Lymphocytes % (Manual) 6 % (20-45) L Monocytes % (Manual) 4 % (1-10) Eosinophils % (Manual) 0 % (0-3) Basophils % (Manual) 0 % (0-2) Band Neutrophils 0 % (0-8) Platelet Estimate Decreased L Platelet Morphology Normal Hypochromasia 2+ Prothrombin Time 11.0 SEC (9.30-11.50) Prothromb Time International Ratio 1.0 (0.9-1.1) Activated Partial Thromboplast Time 32 SEC (23-33) Sodium Level 139 MMOL/L (136-145) Potassium Level 4.0 MMOL/L (3.5-5.1) Chloride Level 103 MMOL/L (98-107) Carbon Dioxide Level 32 MMOL/L (21-32) Anion Gap 4 mmol/L (5-15) L Blood Urea Nitrogen 13 mg/dL (7-18) Creatinine 0.5 MG/DL (0.55-1.30) L Estimat Glomerular Filtration Rate > 60 mL/min (>60) Glucose Level 264 MG/DL (74-106) #H Calcium Level 8.3 MG/DL (8.5-10.1) L Total Bilirubin 0.5 MG/DL (0.2-1.0) Aspartate Amino Transf (AST/SGOT) 18 U/L (15-37) Alanine Aminotransferase (ALT/SGPT) 18 U/L (12-78) Alkaline Phosphatase 68 U/L (46-116) Total Protein 5.7 G/DL (6.4-8.2) L Albumin 1.9 G/DL (3.4-5.0) L Globulin 3.8 g/dL Albumin/Globulin Ratio 0.5 (1.0-2.7) L Plan Problems: (1) Acute encephalopathy (2) acute toxic encephalopathy (3) Sepsis (4) Dysphagia (5) Oligodendroglioma (6) Brain tumor (7) Cardiomyopathy (8) Sacral decubitus ulcer Assessment & Plan: Pt presented on admission with full thickness sacral pressure injury with undermining. Base of viable with trace amt of slough .Bone is visible. undermining clockwise 9-6o'clock ,at 12 o'clock base of wound is necrotic.mixed slough and soft necrosis noted along borders. Periwound erythematous and indurated.Mild odor resolved after cleansing of wound. No exudate noted. Both heels are firm and blanchable. No evidence of skin breakdown noted to all other bony prominences. Tx.Plan: Cleanse wound with Saline. Loosely pack with Hydrogel impregnated Kerlix packing .Apply Triad paste periwound. Cover with Optifoam drsg Every shift ( Q12Hr). Apply Cavilon Skin Barrier to both heels .Cover each heel with Optifoam drsg. Change every 7 days and prn Apply Cavilon Skin Barrier to both hips. Cover each hip with Optifoam drsg. Change every 7 days and prn. Air fluidized mattress. Reposition at least every 2hours or as tolerated. Off-load heels with pillow. (9) History of CVA (cerebrovascular accident) (10) Severe malnutrition Assessment & Plan: Needs PEG. planned for today appreciate GI input nutrition input (11) Anemia (12) PEG (percutaneous endoscopic gastrostomy) adjustment/replacement/removal (13) Failure to thrive Assessment & Plan: DAILY ESTIMATED NEEDS: Needs based on Advanced wound, wt loss/ 56kg 30-35 kcals/kg 2253-2431 total kcals 1.5-2.0 g protein/kg 84-112 g total protein 25-30 mL/kg 2610-2106 total fluid mLs NUTRITION DIAGNOSIS: * Increased kcal/prot needs R/T wound healing, wt loss as evidenced by sacral stage 4 wound, possible significant wt loss of 19lbs/ 13.4% in <1 month. * Swallowing difficulty R/T dysphagia w/ h/o brain tumor and CVA as evidenced by pt on [facility] soft texture, NTL [employer], admitted w/ FTT, now NPO, pending PEG placement. CURRENT TF:NPO ENTERAL NUTRITION RECOMMENDATIONS: Glucerna 1.5 @ 50ml/hr x 24 hrs to provide 1200ml, 1800kcal, 99g prot, 911ml free water * S/p PEG placement, as medically appropriate, initiate TF * Initiate Glucerna 1.5 @ 10ml/hr x 6 hrs, advance 10ml q 4-6 hrs as tolerated to goal rate. * HOB over 30 degrees/ water fluhs per MD ADDITIONAL RECOMMENDATIONS: * TXR PT TO BED WITH BEDSCALE, OBTAIN CALIBRATED BEDSCALE WT * Check lytes daily w/ TF, replete as needed - PT AT HIGH RISK FOR REFEEDING SYNDROME * Wound healing: add Vit C 500mg BID and Ziyad 1pkt BID * Add accucheck w/ SSI once TF initiates -> Monitor BGs closely- h/o DM, on decadron, on TF (14) Diabetes mellitus (15) Hypertension Harry Rivas November 05, 2018 14:25
--- NOTE | 2018-11-05 16:22 | NUR ---
NURSE NOTES: G-Tube started running at 1600 rate of 20, the goal for the rate 50cc; will advance the rate as tolerated.
--- NOTE | 2018-11-05 18:39 | Internal Med Progress Note ---
Subjective Date of Service: November 05, 2018 Physician Name Jesus Kidd Attending Physician Camacho Braun MD Current Medications Medications (Trade) Dose Ordered Sig/Chace Route PRN Reason Start Time Stop Time Status Last Admin Dose Admin Dexamethasone (Decadron) 4 mg BID ORAL 11/04/18 18:00 12/04/18 17:59 11/05/18 17:00 Dextrose (Dextrose 50%) 25 ml Q30M PRN IV Hypoglycemia 11/04/18 14:15 12/04/18 14:14 Dextrose (Dextrose 50%) 50 ml Q30MIN PRN IV Hypoglycemia 11/04/18 14:15 12/04/18 14:14 Digoxin (Lanoxin) 0.25 mg DAILY ORAL 11/05/18 09:00 12/05/18 08:59 Finasteride (Proscar) 5 mg DAILY@2100 ORAL 11/04/18 21:00 12/04/18 20:59 11/04/18 21:23 Heparin Sodium (Porcine) (Heparin 5000 units/ml) 5,000 units EVERY 12 HOURS SUBQ 11/04/18 21:00 12/04/18 20:59 Lorazepam (Ativan 2mg/ml 1ml) 0.5 mg Q4H PRN IV For Anxiety 11/04/18 14:15 11/11/18 14:14 Morphine Sulfate (Morphine Sulfate) 1 mg Q4H PRN IVP For Pain 11/04/18 14:15 11/11/18 14:14 11/05/18 05:50 Ondansetron HCl (Zofran) 4 mg Q6H PRN IVP Nausea & Vomiting 11/04/18 14:15 12/04/18 14:14 Sitagliptin Phosphate (Januvia) 50 mg DAILY ORAL 11/05/18 09:00 12/05/18 08:59 Allergies: Coded Allergies: No Known Allergies (Unverified , 09/27/18) ROS Limited/Unobtainable: Yes Subjective 68 YO M with brain cancer admitted for failure to thrive. Cover for Int med-Dr Braun. S/P PEG 11/05/18 Objective Last Vital Signs Date Time Temp Pulse Resp B/P (MAP) Pulse Ox O2 Delivery O2 Flow Rate FiO2 11/05/18 16:00 97.6 88 19 128/80 (96) 99 11/05/18 14:30 Room Air 11/05/18 13:45 6 Laboratory Tests Test 11/05/18 04:37 White Blood Count 4.4 K/UL (4.8-10.8) L Red Blood Count 3.08 M/UL (4.70-6.10) L Hemoglobin 9.6 G/DL (14.2-18.0) L Hematocrit 28.8 % (42.0-52.0) L Mean Corpuscular Volume 94 FL (80-99) Mean Corpuscular Hemoglobin 31.2 PG (27.0-31.0) H Mean Corpuscular Hemoglobin Concent 33.4 G/DL (32.0-36.0) Red Cell Distribution Width 14.8 % (11.6-14.8) Platelet Count 146 K/UL (150-450) L Mean Platelet Volume 7.2 FL (6.5-10.1) Neutrophils (%) (Auto) % (45.0-75.0) Lymphocytes (%) (Auto) % (20.0-45.0) Monocytes (%) (Auto) % (1.0-10.0) Eosinophils (%) (Auto) % (0.0-3.0) Basophils (%) (Auto) % (0.0-2.0) Differential Total Cells Counted 100 Neutrophils % (Manual) 90 % (45-75) H Lymphocytes % (Manual) 6 % (20-45) L Monocytes % (Manual) 4 % (1-10) Eosinophils % (Manual) 0 % (0-3) Basophils % (Manual) 0 % (0-2) Band Neutrophils 0 % (0-8) Platelet Estimate Decreased L Platelet Morphology Normal Hypochromasia 2+ Prothrombin Time 11.0 SEC (9.30-11.50) Prothromb Time International Ratio 1.0 (0.9-1.1) Activated Partial Thromboplast Time 32 SEC (23-33) Sodium Level 139 MMOL/L (136-145) Potassium Level 4.0 MMOL/L (3.5-5.1) Chloride Level 103 MMOL/L (98-107) Carbon Dioxide Level 32 MMOL/L (21-32) Anion Gap 4 mmol/L (5-15) L Blood Urea Nitrogen 13 mg/dL (7-18) Creatinine 0.5 MG/DL (0.55-1.30) L Estimat Glomerular Filtration Rate > 60 mL/min (>60) Glucose Level 264 MG/DL (74-106) #H Calcium Level 8.3 MG/DL (8.5-10.1) L Total Bilirubin 0.5 MG/DL (0.2-1.0) Aspartate Amino Transf (AST/SGOT) 18 U/L (15-37) Alanine Aminotransferase (ALT/SGPT) 18 U/L (12-78) Alkaline Phosphatase 68 U/L (46-116) Total Protein 5.7 G/DL (6.4-8.2) L Albumin 1.9 G/DL (3.4-5.0) L Globulin 3.8 g/dL Albumin/Globulin Ratio 0.5 (1.0-2.7) L Microbiology Date/Time Source Procedure Growth Status 11/04/18 12:14 Urine,Clean Catch Urine Culture - Preliminary Gram Negative Bacillus 1 Resulted Intake and Output 11/04/18 11/05/18 19:00 07:00 Intake Total 50 ml 600 ml Output Total 200 ml 500 ml Balance -150 ml 100 ml IV Total 50 ml 600 ml Output Urine Total 200 ml 500 ml # Bowel Movements 2 Objective PHYSICAL EXAMINATION: GENERAL: The patient is a well-developed, well-nourished male, in no apparent distress. HEENT: Eyes, pupils are equal and responsive to light and accommodation. Extraocular movements are intact. NECK: Supple without lymphadenopathy. CHEST: Lungs are clear to auscultation bilaterally without wheezes or rales. CARDIOVASCULAR: Regular rhythm and rate. S1 and S2 are normal without murmurs, rubs, or gallops. ABDOMEN: Soft, nontender, nondistended. Positive bowel sounds. No evidence of hepatosplenomegaly. Currently, no rebound or guarding noted. RECTAL: Not performed. GENITAL: Not performed. NEUROLOGIC: Unable to assess secondary to the patient's mental status. Assessment/Plan Assessment/Plan ASSESSMENT: This is a 68-year-old male with: 1. Dysphagia. 2. Failure to thrive. 3. Oligodendroglioma, WHO grade 2 brain cancer. 4. Seizure disorder. 5. History of cerebrovascular accident. 6. Right hemiparesis. 7. Hypertension. 8. Coronary artery disease. 9. Expressive aphasia. TREATMENT: 1. Dysphagia. A Gastroenterology consultation has been obtained with Dr. Baldev Burnett. S/P PEG placement 11/05/18. We will follow recommendation of Gastroenterology. 2. Oligodendroglioma, WHO grade 2 brain cancer. The patient is status post resection at [facility]. The patient is followed by Neurology. 3. Seizure disorder. Continue Vimpat as above. 4. Diabetes type 2. Continue NovoLog sliding scale. 5. History of cerebrovascular accident. 6. Right hemiparesis. 7. Hypertension. Continue losartan as above. 8. Coronary artery disease. 9. Expressive aphasia. Jesus Kidd MD November 05, 2018 18:39
--- NOTE | 2018-11-05 19:41 | NUR ---
HAND-OFF: Report given to CHIDI Cook.
--- NOTE | 2018-11-05 19:45 | Procedure Note ---
DATE OF PROCEDURE: 11/05/2018 SURGEON: Baldev Burnett M.D. REFERRING PHYSICIAN: Camacho Braun M.D. PROCEDURE: Upper endoscopy with biopsy and PEG placement. ANESTHESIA: Per Rubina RICO. INSTRUMENT: Olympus adult flexible upper endoscope. INDICATIONS: 1. Dysphagia. 2. Failure to thrive. REASON FOR PROCEDURE: The procedure, risks, benefits, and possible consequences, including hemorrhage, aspiration, perforation and infection, and alternative treatments, were explained to the patient/legal guardian by Dr. Baldev Burnett and the patient/legal guardian understood and accepted these risks. PROCEDURE IN DETAIL: After informed consent was obtained and the patient was adequately sedated, Olympus upper endoscope was advanced from mouth into the second portion of duodenum and retroflexion was performed in the stomach. The patient with one small gastric polyp, which was biopsied. Then under endoscopic guidance and under sterile condition, a 20-Hungarian pull type of G-tube was successfully placed in the epigastric area. The distance from the tip of the tube to skin was about 3 cm in size. The patient tolerated the procedure very well without any complication. SUMMARY OF FINDINGS: 1. Gastric polyp, status post biopsy. 2. Status post successful percutaneous endoscopic gastrostomy placement. RECOMMENDATIONS: 1. Abdominal binder. 2. Elevate the head of the bed at all times. 3. G-tube flush. 4. G-tube care. 5. Start tube feeding later today. 6. The patient received a dose of antibiotics prior to this procedure. I want to thank Dr. Braun for this kind referral. Baldev Burnett M.D. DR: MAYKEL JOB#: [id number] CC:
--- NOTE | 2018-11-05 20:05 | NUR ---
NURSE NOTES: Received patient in bed, bed bound, total care, on p 200 mattress, no acute distress at this time, VSS, afebrile. On g tube feeding. Call light is within reach, bed is in low position, locked and alarm is on, will continue to monitor for safety and comfort.
[2018-11-06] VITALS: BP 144/81
[2018-11-06 04:00] VITALS: BP 134/93
[2018-11-06 05:58] LABS: HEMATOCRIT 32.6 % (42.0-52.0); HEMOGLOBIN 11.2 G/DL (14.2-18.0); MEAN CORPUSCULAR VOLUME 93 FL (80-99); PLATELET COUNT 215 K/UL (150-450); RED BLOOD COUNT 3.52 M/UL (4.70-6.10); RED CELL DISTRIBUTION WIDTH 14.5 % (11.6-14.8); WHITE BLOOD COUNT 4.5 K/UL (4.8-10.8)
[2018-11-06 06:12] LABS: ANION GAP 6 mmol/L (5-15); BLOOD UREA NITROGEN 12 mg/dL (7-18); CALCIUM 8.7 MG/DL (8.5-10.1); CARBON DIOXIDE 32 MMOL/L (21-32); CHLORIDE 100 MMOL/L (98-107); CREATININE 0.5 MG/DL (0.55-1.30); POTASSIUM 3.6 MMOL/L (3.5-5.1); SODIUM 138 MMOL/L (136-145)
--- NOTE | 2018-11-06 06:53 | NUR ---
HAND-OFF: Report given to Jaqueline MURILLO.
--- NOTE | 2018-11-06 07:31 | NUR ---
NURSE NOTES: Patient received resting in bed. Breathing unlabored on room air. No signs of pain or respiratory distress observed. Glucerna 1.5 running at 50cc/hr with abdominal binder in place. Mota catheter patent and intact. Bed alarm on. Bed locked in lowest position with hob elevated for aspiration precaution. Call light within reach, will continue to monitor.
[2018-11-06 08:00] VITALS: BP 141/85
[2018-11-06] MEDS: sitaGLIPtin 50mg tab ORAL SCH (08:50)
[2018-11-06] MEDS: Heparin 5000 units/ml inj SUBQ SCH ×2 (09:08→21:32)
--- NOTE | 2018-11-06 10:01 | GI Progress Note ---
Assessment/Plan Problems: (1) Failure to thrive SNOMED: 17059264 (2) Anemia ICD Codes: D64.9 - Anemia, unspecified SNOMED: 720896189 (3) PEG (percutaneous endoscopic gastrostomy) adjustment/replacement/removal ICD Codes: Z43.1 - Encounter for attention to gastrostomy SNOMED: 541024180, 406952551 (4) Dysphagia ICD Codes: R13.10 - Dysphagia, unspecified SNOMED: 28212850, 981367224 Status: stable Status Narrative Discussed with Dr. Burnett. Assessment/Plan SUMMARY OF FINDINGS: 1. Gastric polyp, status post biopsy. 2. Status post successful percutaneous endoscopic gastrostomy placement. RECOMMENDATIONS: Okay for patient to be on mechanical soft diet for oral gratification with strict aspiration precautions PRN transfusions PPI GT site care daily/prn follow labs dc planning The patient was seen and examined at bedside and all new and available data was reviewed in the patients chart. I agree with the above findings, impression and plan. (Patient seen earlier today. Signature stamp does not reflect patient encounter time.). - Baldev Burnett MD Subjective Subjective limited Objective Last 24 Hour Vital Signs Date Time Temp Pulse Resp B/P (MAP) Pulse Ox O2 Delivery O2 Flow Rate FiO2 11/06/18 09:00 Room Air 11/06/18 08:48 95 11/06/18 08:00 97.8 121 18 141/85 (103) 95 11/06/18 04:00 97.8 95 19 134/93 (107) 11/06/18 00:00 98.0 113 18 144/81 (102) 11/05/18 21:00 Room Air 11/05/18 20:00 98.0 99 19 130/81 (97) 11/05/18 16:00 97.6 88 19 128/80 (96) 99 11/05/18 14:30 97.0 101 18 132/87 97 Room Air 11/05/18 14:15 103 16 147/88 95 Room Air 11/05/18 14:00 104 17 137/97 95 Room Air 11/05/18 13:46 102 16 99 11/05/18 13:45 103 18 147/87 98 Simple Mask 6 11/05/18 13:35 109 16 140/96 98 Simple Mask 6 11/05/18 13:30 109 15 152/87 98 Simple Mask 6 11/05/18 13:25 97.0 102 16 119/93 99 Simple Mask 6 11/05/18 12:00 98.0 90 20 120/77 (91) 99 Intake and Output 11/05/18 11/06/18 18:59 06:59 Intake Total 505 ml 340 ml Output Total 450 ml Balance 505 ml -110 ml Intake Free Water 150 ml 150 ml IV Total 325 ml Tube Feeding 30 ml 190 ml Output Urine Total 450 ml # Bowel Movements 1 Laboratory Tests Test 11/06/18 05:15 White Blood Count 4.5 K/UL (4.8-10.8) L Red Blood Count 3.52 M/UL (4.70-6.10) L Hemoglobin 11.2 G/DL (14.2-18.0) L Hematocrit 32.6 % (42.0-52.0) L Mean Corpuscular Volume 93 FL (80-99) Mean Corpuscular Hemoglobin 31.8 PG (27.0-31.0) H Mean Corpuscular Hemoglobin Concent 34.3 G/DL (32.0-36.0) Red Cell Distribution Width 14.5 % (11.6-14.8) Platelet Count 215 K/UL (150-450) Mean Platelet Volume 6.9 FL (6.5-10.1) Neutrophils (%) (Auto) % (45.0-75.0) Lymphocytes (%) (Auto) % (20.0-45.0) Monocytes (%) (Auto) % (1.0-10.0) Eosinophils (%) (Auto) % (0.0-3.0) Basophils (%) (Auto) % (0.0-2.0) Differential Total Cells Counted 100 Neutrophils % (Manual) 91 % (45-75) H Lymphocytes % (Manual) 5 % (20-45) L Monocytes % (Manual) 4 % (1-10) Eosinophils % (Manual) 0 % (0-3) Basophils % (Manual) 0 % (0-2) Band Neutrophils 0 % (0-8) Platelet Estimate Adequate Platelet Morphology Normal Anisocytosis 1+ Sodium Level 138 MMOL/L (136-145) Potassium Level 3.6 MMOL/L (3.5-5.1) Chloride Level 100 MMOL/L (98-107) Carbon Dioxide Level 32 MMOL/L (21-32) Anion Gap 6 mmol/L (5-15) Blood Urea Nitrogen 12 mg/dL (7-18) Creatinine 0.5 MG/DL (0.55-1.30) L Estimat Glomerular Filtration Rate > 60 mL/min (>60) Glucose Level 273 MG/DL (74-106) H Calcium Level 8.7 MG/DL (8.5-10.1) Height (Feet): 5 Height (Inches): 5.00 Weight (Pounds): 150 General Appearance: WD/WN, no apparent distress, alert Cardiovascular: normal rate Respiratory/Chest: normal breath sounds, no respiratory distress Abdominal Exam: normal bowel sounds, non tender, soft, GT site - c/d/i Extremities: non-tender Benny Pham NP November 06, 2018 10:01
--- NOTE | 2018-11-06 11:25 | Surgery Progress Note ---
Surgery Progress Note Subjective Additional Comments no acute events. on his side today. wound evaluated and dressings being changed. fortunately patient able to assist with off loading, incontinent Objective Last 24 Hour Vital Signs Date Time Temp Pulse Resp B/P (MAP) Pulse Ox O2 Delivery O2 Flow Rate FiO2 11/06/18 09:00 Room Air 11/06/18 08:48 95 11/06/18 08:00 97.8 121 18 141/85 (103) 95 11/06/18 04:00 97.8 95 19 134/93 (107) 11/06/18 00:00 98.0 113 18 144/81 (102) 11/05/18 21:00 Room Air 11/05/18 20:00 98.0 99 19 130/81 (97) 11/05/18 16:00 97.6 88 19 128/80 (96) 99 11/05/18 14:30 97.0 101 18 132/87 97 Room Air 11/05/18 14:15 103 16 147/88 95 Room Air 11/05/18 14:00 104 17 137/97 95 Room Air 11/05/18 13:46 102 16 99 11/05/18 13:45 103 18 147/87 98 Simple Mask 6 11/05/18 13:35 109 16 140/96 98 Simple Mask 6 11/05/18 13:30 109 15 152/87 98 Simple Mask 6 11/05/18 13:25 97.0 102 16 119/93 99 Simple Mask 6 11/05/18 12:00 98.0 90 20 120/77 (91) 99 I&O Intake and Output 11/05/18 11/06/18 18:59 06:59 Intake Total 505 ml 340 ml Output Total 450 ml Balance 505 ml -110 ml Intake Free Water 150 ml 150 ml IV Total 325 ml Tube Feeding 30 ml 190 ml Output Urine Total 450 ml # Bowel Movements 1 Dressing: saturated Wound: other Drains: other Cardiovascular: RSR Respiratory: clear Abdomen: soft, present bowel sounds, non-distended Extremities: no tenderness, no cyanosis Laboratory Tests Test 11/06/18 05:15 White Blood Count 4.5 K/UL (4.8-10.8) L Red Blood Count 3.52 M/UL (4.70-6.10) L Hemoglobin 11.2 G/DL (14.2-18.0) L Hematocrit 32.6 % (42.0-52.0) L Mean Corpuscular Volume 93 FL (80-99) Mean Corpuscular Hemoglobin 31.8 PG (27.0-31.0) H Mean Corpuscular Hemoglobin Concent 34.3 G/DL (32.0-36.0) Red Cell Distribution Width 14.5 % (11.6-14.8) Platelet Count 215 K/UL (150-450) Mean Platelet Volume 6.9 FL (6.5-10.1) Neutrophils (%) (Auto) % (45.0-75.0) Lymphocytes (%) (Auto) % (20.0-45.0) Monocytes (%) (Auto) % (1.0-10.0) Eosinophils (%) (Auto) % (0.0-3.0) Basophils (%) (Auto) % (0.0-2.0) Differential Total Cells Counted 100 Neutrophils % (Manual) 91 % (45-75) H Lymphocytes % (Manual) 5 % (20-45) L Monocytes % (Manual) 4 % (1-10) Eosinophils % (Manual) 0 % (0-3) Basophils % (Manual) 0 % (0-2) Band Neutrophils 0 % (0-8) Platelet Estimate Adequate Platelet Morphology Normal Anisocytosis 1+ Sodium Level 138 MMOL/L (136-145) Potassium Level 3.6 MMOL/L (3.5-5.1) Chloride Level 100 MMOL/L (98-107) Carbon Dioxide Level 32 MMOL/L (21-32) Anion Gap 6 mmol/L (5-15) Blood Urea Nitrogen 12 mg/dL (7-18) Creatinine 0.5 MG/DL (0.55-1.30) L Estimat Glomerular Filtration Rate > 60 mL/min (>60) Glucose Level 273 MG/DL (74-106) H Calcium Level 8.7 MG/DL (8.5-10.1) Plan Problems: (1) Acute encephalopathy (2) acute toxic encephalopathy (3) Sepsis (4) Dysphagia (5) Oligodendroglioma (6) Brain tumor (7) Cardiomyopathy (8) Sacral decubitus ulcer Assessment & Plan: Pt presented on admission with full thickness sacral pressure injury with undermining. Base of viable with trace amt of slough .Bone is visible. undermining clockwise 9-6o'clock ,at 12 o'clock base of wound is necrotic.mixed slough and soft necrosis noted along borders. Periwound erythematous and indurated.Mild odor resolved after cleansing of wound. No exudate noted. Both heels are firm and blanchable. No evidence of skin breakdown noted to all other bony prominences. Tx.Plan: Cleanse wound with Saline. Loosely pack with Hydrogel impregnated Kerlix packing .Apply Triad paste periwound. Cover with Optifoam drsg Every shift ( Q12Hr). Apply Cavilon Skin Barrier to both heels .Cover each heel with Optifoam drsg. Change every 7 days and prn Apply Cavilon Skin Barrier to both hips. Cover each hip with Optifoam drsg. Change every 7 days and prn. Air fluidized mattress. Reposition at least every 2hours or as tolerated. Off-load heels with pillow. Can plan for continued care based on above recommendations when discharged. (9) History of CVA (cerebrovascular accident) (10) Severe malnutrition Assessment & Plan: s/p PEG appreciate GI input nutrition input (11) Anemia (12) PEG (percutaneous endoscopic gastrostomy) adjustment/replacement/removal (13) Failure to thrive Assessment & Plan: DAILY ESTIMATED NEEDS: Needs based on Advanced wound, wt loss/ 56kg 30-35 kcals/kg 1353-7678 total kcals 1.5-2.0 g protein/kg 84-112 g total protein 25-30 mL/kg 6070-9421 total fluid mLs NUTRITION DIAGNOSIS: * Increased kcal/prot needs R/T wound healing, wt loss as evidenced by sacral stage 4 wound, possible significant wt loss of 19lbs/ 13.4% in <1 month. * Swallowing difficulty R/T dysphagia w/ h/o brain tumor and CVA as evidenced by pt on [facility] soft texture, [facility], admitted w/ FTT, now NPO, pending PEG placement. CURRENT TF:NPO ENTERAL NUTRITION RECOMMENDATIONS: Glucerna 1.5 @ 50ml/hr x 24 hrs to provide 1200ml, 1800kcal, 99g prot, 911ml free water * S/p PEG placement, as medically appropriate, initiate TF * Initiate Glucerna 1.5 @ 10ml/hr x 6 hrs, advance 10ml q 4-6 hrs as tolerated to goal rate. * HOB over 30 degrees/ water fluhs per MD ADDITIONAL RECOMMENDATIONS: * TXR PT TO BED WITH BEDSCALE, OBTAIN CALIBRATED BEDSCALE WT * Check lytes daily w/ TF, replete as needed - PT AT HIGH RISK FOR REFEEDING SYNDROME * Wound healing: add Vit C 500mg BID and Ziyad 1pkt BID * Add accucheck w/ SSI once TF initiates -> Monitor BGs closely- h/o DM, on decadron, on TF (14) Diabetes mellitus (15) Hypertension Harry Rivas November 06, 2018 11:25
--- NOTE | 2018-11-06 11:46 | Internal Med Progress Note ---
Subjective Physician Name Camacho Braun Attending Physician Camacho Braun MD Current Medications Medications (Trade) Dose Ordered Sig/Chace Route PRN Reason Start Time Stop Time Status Last Admin Dose Admin Dexamethasone (Decadron) 4 mg BID ORAL 11/04/18 18:00 12/04/18 17:59 11/06/18 08:47 Dextrose (Dextrose 50%) 25 ml Q30M PRN IV Hypoglycemia 11/04/18 14:15 12/04/18 14:14 Dextrose (Dextrose 50%) 50 ml Q30MIN PRN IV Hypoglycemia 11/04/18 14:15 12/04/18 14:14 Digoxin (Lanoxin) 0.25 mg DAILY ORAL 11/05/18 09:00 12/05/18 08:59 11/06/18 08:48 Finasteride (Proscar) 5 mg DAILY@2100 ORAL 11/04/18 21:00 12/04/18 20:59 11/05/18 21:50 Heparin Sodium (Porcine) (Heparin 5000 units/ml) 5,000 units EVERY 12 HOURS SUBQ 11/04/18 21:00 12/04/18 20:59 11/06/18 09:08 Lorazepam (Ativan 2mg/ml 1ml) 0.5 mg Q4H PRN IV For Anxiety 11/04/18 14:15 11/11/18 14:14 Morphine Sulfate (Morphine Sulfate) 1 mg Q4H PRN IVP For Pain 11/04/18 14:15 11/11/18 14:14 11/05/18 05:50 Ondansetron HCl (Zofran) 4 mg Q6H PRN IVP Nausea & Vomiting 11/04/18 14:15 12/04/18 14:14 Sitagliptin Phosphate (Januvia) 50 mg DAILY ORAL 11/05/18 09:00 12/05/18 08:59 11/06/18 08:50 Allergies: Coded Allergies: No Known Allergies (Unverified , 09/27/18) Subjective Awake, alert, responsive, no acute distress, tolerated tube feeding. Objective Last Vital Signs Date Time Temp Pulse Resp B/P (MAP) Pulse Ox O2 Delivery O2 Flow Rate FiO2 11/06/18 09:00 Room Air 11/06/18 08:48 95 11/06/18 08:00 97.8 18 141/85 (103) 95 11/05/18 13:45 6 Laboratory Tests Test 11/06/18 05:15 White Blood Count 4.5 K/UL (4.8-10.8) L Red Blood Count 3.52 M/UL (4.70-6.10) L Hemoglobin 11.2 G/DL (14.2-18.0) L Hematocrit 32.6 % (42.0-52.0) L Mean Corpuscular Volume 93 FL (80-99) Mean Corpuscular Hemoglobin 31.8 PG (27.0-31.0) H Mean Corpuscular Hemoglobin Concent 34.3 G/DL (32.0-36.0) Red Cell Distribution Width 14.5 % (11.6-14.8) Platelet Count 215 K/UL (150-450) Mean Platelet Volume 6.9 FL (6.5-10.1) Neutrophils (%) (Auto) % (45.0-75.0) Lymphocytes (%) (Auto) % (20.0-45.0) Monocytes (%) (Auto) % (1.0-10.0) Eosinophils (%) (Auto) % (0.0-3.0) Basophils (%) (Auto) % (0.0-2.0) Differential Total Cells Counted 100 Neutrophils % (Manual) 91 % (45-75) H Lymphocytes % (Manual) 5 % (20-45) L Monocytes % (Manual) 4 % (1-10) Eosinophils % (Manual) 0 % (0-3) Basophils % (Manual) 0 % (0-2) Band Neutrophils 0 % (0-8) Platelet Estimate Adequate Platelet Morphology Normal Anisocytosis 1+ Sodium Level 138 MMOL/L (136-145) Potassium Level 3.6 MMOL/L (3.5-5.1) Chloride Level 100 MMOL/L (98-107) Carbon Dioxide Level 32 MMOL/L (21-32) Anion Gap 6 mmol/L (5-15) Blood Urea Nitrogen 12 mg/dL (7-18) Creatinine 0.5 MG/DL (0.55-1.30) L Estimat Glomerular Filtration Rate > 60 mL/min (>60) Glucose Level 273 MG/DL (74-106) H Calcium Level 8.7 MG/DL (8.5-10.1) Microbiology Date/Time Source Procedure Growth Status 11/04/18 14:10 Nasal Nares MRSA Culture - Final Staphylococcus Aureus - Mrsa Complete 11/04/18 12:14 Urine,Clean Catch Urine Culture - Final Pseudomonas Aeruginosa Complete 11/04/18 14:10 Rectum VRE Culture - Final Enterococcus Faecium - Vre Resulted 11/04/18 14:10 Rectum Pending Resulted Intake and Output 11/05/18 11/06/18 18:59 06:59 Intake Total 505 ml 340 ml Output Total 450 ml Balance 505 ml -110 ml Intake Free Water 150 ml 150 ml IV Total 325 ml Tube Feeding 30 ml 190 ml Output Urine Total 450 ml # Bowel Movements 1 Objective General: No acute distress, awake and alert HEENT: NCAT, sclera anicteric, PERRL, EOMI. Neck: Supple, no significant jugular venous distention, Lungs: Fair inspiratory effort, decreased air at the bases, no Wheeze or Rales. Heart: Regular rate and rhythm, normal S1/S2, no murmur. Abdomen: soft, nontender, nondistended. Normoactive bowel sounds, PEG site is intact. : Mota catheter. Extremities: No Cyanosis , clubbing or edema. Muscle atrophy bilateral lower extremity. Neuro: A&O x 3, Able to move all extremities. Assessment/Plan Assessment/Plan ASSESSMENT: This is a 68-year-old male with: 1. Dysphagia. 2. Failure to thrive. 3. Oligodendroglioma, WHO grade 2 brain cancer. 4. Seizure disorder. 5. History of cerebrovascular accident. 6. Right hemiparesis. 7. Hypertension. 8. Coronary artery disease. 9. Expressive aphasia. 10. Severe protein calorie malnutrition. TREATMENT: 1. Dysphagia. A Gastroenterology consultation has been obtained with Dr. Baldev Burnett. S/P PEG placement 11/05/18. We will follow recommendation of Gastroenterology. 2. Oligodendroglioma, WHO grade 2 brain cancer. The patient is status post resection at [facility]. The patient is followed by Neurology. 3. Seizure disorder. Continue Vimpat as above. 4. Diabetes type 2. Continue NovoLog sliding scale. 5. History of cerebrovascular accident. 6. Right hemiparesis. 7. Hypertension. Continue losartan as above. 8. Coronary artery disease. 9. Expressive aphasia. DC planning to SNF. Continue tube feeding at the rate of 50 cc/hr Kade,Camacho MD November 06, 2018 11:46
[2018-11-06 12:00] VITALS: BP 134/82
--- NOTE | 2018-11-06 13:07 | Pulmonology Progress Note ---
Assessment/Plan Problems: (1) Severe malnutrition (2) Sacral decubitus ulcer (3) Oligodendroglioma (4) History of CVA (cerebrovascular accident) (5) Cardiomyopathy (6) Diabetes mellitus (7) Hypertension (8) Brain tumor Assessment/Plan all reviewediv fluids tolerated Gtube very well seizure precaution, no seizures so far family doesn't want any seizure meds nutrition evaluation dvt prophylaxis check coagulation family not amenable to comfort care Subjective ROS Limited/Unobtainable: No Constitutional: Reports: no symptoms HEENT: Repors: no symptoms Respiratory: Reports: no symptoms Allergies: Coded Allergies: No Known Allergies (Unverified , 09/27/18) Objective Last 24 Hour Vital Signs Date Time Temp Pulse Resp B/P (MAP) Pulse Ox O2 Delivery O2 Flow Rate FiO2 11/06/18 12:00 98.2 119 19 134/82 (99) 95 11/06/18 09:00 Room Air 11/06/18 08:48 95 11/06/18 08:00 97.8 121 18 141/85 (103) 95 11/06/18 04:00 97.8 95 19 134/93 (107) 11/06/18 00:00 98.0 113 18 144/81 (102) 11/05/18 21:00 Room Air 11/05/18 20:00 98.0 99 19 130/81 (97) 11/05/18 16:00 97.6 88 19 128/80 (96) 99 11/05/18 14:30 97.0 101 18 132/87 97 Room Air 11/05/18 14:15 103 16 147/88 95 Room Air 11/05/18 14:00 104 17 137/97 95 Room Air 11/05/18 13:46 102 16 99 11/05/18 13:45 103 18 147/87 98 Simple Mask 6 11/05/18 13:35 109 16 140/96 98 Simple Mask 6 11/05/18 13:30 109 15 152/87 98 Simple Mask 6 11/05/18 13:25 97.0 102 16 119/93 99 Simple Mask 6 Intake and Output 11/05/18 11/06/18 18:59 06:59 Intake Total 505 ml 340 ml Output Total 450 ml Balance 505 ml -110 ml Intake Free Water 150 ml 150 ml IV Total 325 ml Tube Feeding 30 ml 190 ml Output Urine Total 450 ml # Bowel Movements 1 General Appearance: WD/WN Respiratory/Chest: chest wall non-tender, lungs clear Cardiovascular: normal peripheral pulses, regular rhythm Abdomen: normal bowel sounds, soft, non tender Genitourinary: normal external genitalia Extremities: no clubbing Skin: no rash Microbiology Date/Time Source Procedure Growth Status 11/04/18 14:10 Nasal Nares MRSA Culture - Final Staphylococcus Aureus - Mrsa Complete 11/04/18 12:14 Urine,Clean Catch Urine Culture - Final Pseudomonas Aeruginosa Complete 11/04/18 14:10 Rectum VRE Culture - Final Enterococcus Faecium - Vre Resulted 11/04/18 14:10 Rectum Pending Resulted Laboratory Tests 11/06/18 05:15: White Blood Count 4.5L, Red Blood Count 3.52L, Hemoglobin 11.2L, Hematocrit 32.6L, Mean Corpuscular Volume 93, Mean Corpuscular Hemoglobin 31.8H, Mean Corpuscular Hemoglobin Concent 34.3, Red Cell Distribution Width 14.5, Platelet Count 215, Mean Platelet Volume 6.9, Neutrophils (%) (Auto) , Lymphocytes (%) ( Auto) , Monocytes (%) (Auto) , Eosinophils (%) (Auto) , Basophils (%) (Auto) , Differential Total Cells Counted 100, Neutrophils % (Manual) 91H, Lymphocytes % (Manual) 5L, Monocytes % (Manual) 4, Eosinophils % (Manual) 0, Basophils % ( Manual) 0, Band Neutrophils 0, Platelet Estimate Adequate, Platelet Morphology Normal, Anisocytosis 1+, Sodium Level 138, Potassium Level 3.6, Chloride Level 100, Carbon Dioxide Level 32, Anion Gap 6, Blood Urea Nitrogen 12, Creatinine 0.5L, Estimat Glomerular Filtration Rate > 60, Glucose Level 273H, Calcium Level 8.7 Current Medications Medications (Trade) Dose Ordered Sig/Chace Route PRN Reason Start Time Stop Time Status Last Admin Dose Admin Dexamethasone (Decadron) 4 mg BID ORAL 11/04/18 18:00 12/04/18 17:59 11/06/18 08:47 Dextrose (Dextrose 50%) 25 ml Q30M PRN IV Hypoglycemia 11/06/18 12:00 12/06/18 11:59 Dextrose (Dextrose 50%) 50 ml Q30M PRN IV Hypoglycemia 11/06/18 12:00 12/06/18 11:59 Digoxin (Lanoxin) 0.25 mg DAILY ORAL 11/05/18 09:00 12/05/18 08:59 11/06/18 08:48 Finasteride (Proscar) 5 mg DAILY@2100 ORAL 11/04/18 21:00 12/04/18 20:59 11/05/18 21:50 Heparin Sodium (Porcine) (Heparin 5000 units/ml) 5,000 units EVERY 12 HOURS SUBQ 11/04/18 21:00 12/04/18 20:59 11/06/18 09:08 Insulin Aspart (NovoLOG) BEFORE MEALS AND HS SUBQ 11/06/18 16:30 12/06/18 16:29 Lorazepam (Ativan 2mg/ml 1ml) 0.5 mg Q4H PRN IV For Anxiety 11/04/18 14:15 11/11/18 14:14 Morphine Sulfate (Morphine Sulfate) 1 mg Q4H PRN IVP For Pain 11/04/18 14:15 11/11/18 14:14 11/05/18 05:50 Ondansetron HCl (Zofran) 4 mg Q6H PRN IVP Nausea & Vomiting 11/04/18 14:15 12/04/18 14:14 Sitagliptin Phosphate (Januvia) 50 mg DAILY ORAL 11/05/18 09:00 12/05/18 08:59 11/06/18 08:50 Raul Feng MD November 06, 2018 13:07
[2018-11-06 16:00] VITALS: BP 122/80
[2018-11-06] MEDS: NovoLOG Insulin Flexpen SUBQ SCH ×2 (17:10→21:33)
--- NOTE | 2018-11-06 19:15 | NUR ---
HAND-OFF: Report given to Cathi RN.
--- NOTE | 2018-11-06 19:20 | NUR ---
NURSE NOTES: RECEIVED PT FROM CHIDI BARRAZA. PT IS AWAKE, RESTING IN BED. AAOX3. FALL RISK PRECAUTION, YELLOW SOCKS, YELLOW GOWN IMPLEMENTED. SIDE RAILS ARE PADDED FOR SEIZURE PRECAUTION. HOB >35 DEGREES IMPLEMENTED FOR ASPIRATION PRECAUTION. PT IS ON TUBE FEEDING GLUCERNA 1.5 50CC/HR, TOLERATING WELL. ENCOURAGED PT TO EAT HIS [facility] DINNER. DRESSINGS ON A SACRAL IS DRY AND INTACT. OPTIFOAM NOTED ON BILATERAL HEELS, AND BILATERAL HIPS. PT IS ON P200 MATTRESS. CHANG CATH IS INTACT, DRAINING WELL, CHANG ANCHOR IS IN PLACE. IV ON L WRIST 22G IS INTACT AND PATENT. BED IS LOCKED AT THE LOWEST POSITION, BED ALARMS ACTIVE, SIDE RAILS UP X2, AND CALL LIGHT IS WITHIN REACH. WILL CONTINUE TO MONITOR.
[2018-11-06 20:00] VITALS: BP 105/74
[2018-11-06] MEDS ORDERED: DEXAMETHASONE4 MG PO (20:33)
[2018-11-06] MEDS ORDERED: LOSARTAN POTASS25 MG ORAL (20:33)
[2018-11-07] VITALS (7 sets, daily range): BP systolic 101–167; BP diastolic 65–105
--- NOTE | 2018-11-07 03:30 | NUR ---
NURSE NOTES: D/C IV ON LEFT WRIST D/T LEAKING. UNABLE TO OBTAIN NEW IV ACCESS AFTER MULTIPLE ATTEMPTS. CHARGE NURSE AWARE.
--- NOTE | 2018-11-07 03:40 | NUR ---
NURSE NOTES: CHANGED DRESSINGS ON SACRAL WOUND. NEW DRESSING INTACT AND DRY. WILL CONTINUE TO MONITOR.
[2018-11-07 06:14] LABS: HEMATOCRIT 28.9 % (42.0-52.0); HEMOGLOBIN 9.8 G/DL (14.2-18.0); MEAN CORPUSCULAR VOLUME 93 FL (80-99); PLATELET COUNT 197 K/UL (150-450); RED BLOOD COUNT 3.11 M/UL (4.70-6.10); RED CELL DISTRIBUTION WIDTH 14.4 % (11.6-14.8); WHITE BLOOD COUNT 5.1 K/UL (4.8-10.8)
[2018-11-07 06:21] LABS: ANION GAP 4 mmol/L (5-15); BLOOD UREA NITROGEN 17 mg/dL (7-18); CALCIUM 8.9 MG/DL (8.5-10.1); CARBON DIOXIDE 34 MMOL/L (21-32); CHLORIDE 104 MMOL/L (98-107); CREATININE 0.5 MG/DL (0.55-1.30); POTASSIUM 4.3 MMOL/L (3.5-5.1); SODIUM 142 MMOL/L (136-145)
[2018-11-07] MEDS: NovoLOG Insulin Flexpen SUBQ SCH ×4 (07:17→22:01)
--- NOTE | 2018-11-07 07:45 | General Progress Note ---
Assessment/Plan Problem List: (1) Hypertension ICD Codes: I10 - Essential (primary) hypertension SNOMED: 42889619 (2) Diabetes mellitus ICD Codes: E11.9 - Type 2 diabetes mellitus without complications SNOMED: 15967321 (3) Failure to thrive SNOMED: 29800588 Status: stable Assessment/Plan: SUMMARY OF FINDINGS: 1. Gastric polyp, status post biopsy. 2. Status post successful percutaneous endoscopic gastrostomy placement. RECOMMENDATIONS: Okay for patient to be on mechanical soft diet for oral gratification with strict aspiration precautions PRN transfusions PPI GT site care daily/prn follow labs GTF dc planning Subjective ROS Limited/Unobtainable: No Allergies: Coded Allergies: No Known Allergies (Unverified , 09/27/18) Objective Last 24 Hour Vital Signs Date Time Temp Pulse Resp B/P (MAP) Pulse Ox O2 Delivery O2 Flow Rate FiO2 11/07/18 04:00 98.2 110 19 101/65 (77) 100 11/07/18 00:54 120 110/70 (83) 11/07/18 00:00 98.3 114 19 167/105 (125) 95 11/06/18 21:00 Room Air 11/06/18 20:00 98.5 120 19 105/74 (84) 11/06/18 16:00 98.0 119 19 122/80 (94) 98 11/06/18 12:00 98.2 119 19 134/82 (99) 95 11/06/18 09:00 Room Air 11/06/18 08:48 95 11/06/18 08:00 97.8 121 18 141/85 (103) 95 Intake and Output 11/06/18 11/07/18 19:00 07:00 Output Total 800 ml 900 ml Balance -800 ml -900 ml Output Urine Total 800 ml 900 ml # Voids 1 # Bowel Movements 2 5 Laboratory Tests 11/07/18 05:05: White Blood Count 5.1, Red Blood Count 3.11L, Hemoglobin 9.8L, Hematocrit 28.9L , Mean Corpuscular Volume 93, Mean Corpuscular Hemoglobin 31.4H, Mean Corpuscular Hemoglobin Concent 33.8, Red Cell Distribution Width 14.4, Platelet Count 197, Mean Platelet Volume 6.8, Neutrophils (%) (Auto) , Lymphocytes (%) ( Auto) , Monocytes (%) (Auto) , Eosinophils (%) (Auto) , Basophils (%) (Auto) , Differential Total Cells Counted 100, Neutrophils % (Manual) 90H, Lymphocytes % (Manual) 6L, Monocytes % (Manual) 4, Eosinophils % (Manual) 0, Basophils % ( Manual) 0, Band Neutrophils 0, Platelet Estimate Adequate, Platelet Morphology Normal, Anisocytosis 1+, Sodium Level 142, Potassium Level 4.3, Chloride Level 104, Carbon Dioxide Level 34H, Anion Gap 4L, Blood Urea Nitrogen 17, Creatinine 0.5L, Estimat Glomerular Filtration Rate > 60, Glucose Level 234H, Calcium Level 8.9 Height (Feet): 5 Height (Inches): 5.00 Weight (Pounds): 150 General Appearance: no apparent distress, alert EENT: normal ENT inspection Neck: supple Cardiovascular: normal rate Respiratory/Chest: decreased breath sounds Abdomen: normal bowel sounds, non tender, soft Extremities: non-tender Baldev Burnett MD November 07, 2018 07:45
--- NOTE | 2018-11-07 07:50 | NUR ---
HAND-OFF: Report given to CHIDI BARRAZA. ENDORSED TO CHRISTI TO OBTAIN NEW IV ACCESS IF NEEDED.
--- NOTE | 2018-11-07 08:32 | Pulmonology Progress Note ---
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 hypertension coronary artery disease severe protein calorie malnutrition sacral decubitus ulcer present on admission anemia PLAN OF CARE MS floor s/p PEG strict aspiration precaution G-tube feeding , G-tube site care tube feeding type , goal rate and protein supplements as per RD recommendation BS management with Januvia and SSI prn seizure precaution, continue Vimpat, Lamictal and Depakote follow-up with neurologist as outpatient, continue Decadron BP management with BB and ARB and optimize further as needed continue digoxin urine culture with Pseudomonas,start on Zosyn wound care as per surgeon recommendation pain management bowel regimen supportive care monitor H&H with goal to keep hemoglobin above 7 , monitor renal parameters and electrolytes , correct electrolytes as needed case discussed and evaluated by supervising physician Subjective Allergies: Coded Allergies: No Known Allergies (Unverified , 09/27/18) Subjective weak, awake, no signs of resp distress, pulse ox stable on RA Objective Last 24 Hour Vital Signs Date Time Temp Pulse Resp B/P (MAP) Pulse Ox O2 Delivery O2 Flow Rate FiO2 11/07/18 04:00 98.2 110 19 101/65 (77) 100 11/07/18 00:54 120 110/70 (83) 11/07/18 00:00 98.3 114 19 167/105 (125) 95 11/06/18 21:00 Room Air 11/06/18 20:00 98.5 120 19 105/74 (84) 11/06/18 16:00 98.0 119 19 122/80 (94) 98 11/06/18 12:00 98.2 119 19 134/82 (99) 95 11/06/18 09:00 Room Air 11/06/18 08:48 95 Intake and Output 11/06/18 11/07/18 19:00 07:00 Output Total 800 ml 900 ml Balance -800 ml -900 ml Output Urine Total 800 ml 900 ml # Voids 1 # Bowel Movements 2 5 General Appearance: no acute distress, other - weak, chronically ill looking male, awake, HEENT: normocephalic, anicteric, PERRL Respiratory/Chest: lungs clear, no respiratory distress Abdomen: soft, non tender, non distended Extremities: no edema, pedal pulses normal Skin: other - sacral decub Neurologic/Psychiatric: abnormal gait, other - awake, , not able to verbalize needs Musculoskeletal: atrophy - BLE Microbiology Date/Time Source Procedure Growth Status 11/04/18 14:10 Nasal Nares MRSA Culture - Final Staphylococcus Aureus - Mrsa Complete 11/04/18 12:14 Urine,Clean Catch Urine Culture - Final Pseudomonas Aeruginosa Complete 11/04/18 14:10 Rectum VRE Culture - Final Enterococcus Faecium - Vre Complete 11/04/18 14:10 Rectum - Final NO CARBAPENEM-RESISTANT ENTEROBACTERI... Complete Laboratory Tests 11/07/18 05:05: White Blood Count 5.1, Red Blood Count 3.11L, Hemoglobin 9.8L, Hematocrit 28.9L , Mean Corpuscular Volume 93, Mean Corpuscular Hemoglobin 31.4H, Mean Corpuscular Hemoglobin Concent 33.8, Red Cell Distribution Width 14.4, Platelet Count 197, Mean Platelet Volume 6.8, Neutrophils (%) (Auto) , Lymphocytes (%) ( Auto) , Monocytes (%) (Auto) , Eosinophils (%) (Auto) , Basophils (%) (Auto) , Differential Total Cells Counted 100, Neutrophils % (Manual) 90H, Lymphocytes % (Manual) 6L, Monocytes % (Manual) 4, Eosinophils % (Manual) 0, Basophils % ( Manual) 0, Band Neutrophils 0, Platelet Estimate Adequate, Platelet Morphology Normal, Anisocytosis 1+, Sodium Level 142, Potassium Level 4.3, Chloride Level 104, Carbon Dioxide Level 34H, Anion Gap 4L, Blood Urea Nitrogen 17, Creatinine 0.5L, Estimat Glomerular Filtration Rate > 60, Glucose Level 234H, Calcium Level 8.9 Current Medications Medications (Trade) Dose Ordered Sig/Chace Route PRN Reason Start Time Stop Time Status Last Admin Dose Admin Dexamethasone (Decadron) 4 mg BID ORAL 11/04/18 18:00 12/04/18 17:59 11/06/18 17:06 Dextrose (Dextrose 50%) 25 ml Q30M PRN IV Hypoglycemia 11/06/18 12:00 12/06/18 11:59 Dextrose (Dextrose 50%) 50 ml Q30M PRN IV Hypoglycemia 11/06/18 12:00 12/06/18 11:59 Digoxin (Lanoxin) 0.25 mg DAILY ORAL 11/05/18 09:00 12/05/18 08:59 11/06/18 08:48 Finasteride (Proscar) 5 mg DAILY@2100 ORAL 11/04/18 21:00 12/04/18 20:59 11/06/18 21:33 Heparin Sodium (Porcine) (Heparin 5000 units/ml) 5,000 units EVERY 12 HOURS SUBQ 11/04/18 21:00 12/04/18 20:59 11/06/18 21:32 Insulin Aspart (NovoLOG) BEFORE MEALS AND HS SUBQ 11/06/18 16:30 12/06/18 16:29 11/07/18 07:17 Lorazepam (Ativan 2mg/ml 1ml) 0.5 mg Q4H PRN IV For Anxiety 11/04/18 14:15 11/11/18 14:14 11/07/18 00:53 Morphine Sulfate (Morphine Sulfate) 1 mg Q4H PRN IVP For Pain 11/04/18 14:15 11/11/18 14:14 11/05/18 05:50 Ondansetron HCl (Zofran) 4 mg Q6H PRN IVP Nausea & Vomiting 11/04/18 14:15 12/04/18 14:14 Sitagliptin Phosphate (Januvia) 50 mg DAILY ORAL 11/05/18 09:00 12/05/18 08:59 11/06/18 08:50 Sari Madrigal NP November 07, 2018 08:32
[2018-11-07] MEDS: Heparin 5000 units/ml inj SUBQ SCH ×2 (09:00→20:52)
[2018-11-07] MEDS: sitaGLIPtin 50mg tab ORAL SCH (09:26)
[2018-11-07] MEDS ORDERED: D5 1/2NS 1000ml IV ONE (10:08)
--- NOTE | 2018-11-07 11:29 | Surgery Progress Note ---
Surgery Progress Note Subjective Additional Comments doing well. comfortable labs okay path with hyperplastic polyp Objective Last 24 Hour Vital Signs Date Time Temp Pulse Resp B/P (MAP) Pulse Ox O2 Delivery O2 Flow Rate FiO2 11/07/18 09:26 120 11/07/18 09:00 Room Air 11/07/18 08:00 97.9 120 19 132/93 (106) 100 11/07/18 04:00 98.2 110 19 101/65 (77) 100 11/07/18 00:54 120 110/70 (83) 11/07/18 00:00 98.3 114 19 167/105 (125) 95 11/06/18 21:00 Room Air 11/06/18 20:00 98.5 120 19 105/74 (84) 11/06/18 16:00 98.0 119 19 122/80 (94) 98 11/06/18 12:00 98.2 119 19 134/82 (99) 95 I&O Intake and Output 11/06/18 11/07/18 18:59 06:59 Output Total 800 ml 900 ml Balance -800 ml -900 ml Output Urine Total 800 ml 900 ml # Voids 1 # Bowel Movements 2 5 Dressing: saturated Wound: clean Drains: other Cardiovascular: RSR Respiratory: decreased breath sounds Abdomen: soft, non-tender, present bowel sounds, non-distended Extremities: no cyanosis Laboratory Tests Test 11/07/18 05:05 White Blood Count 5.1 K/UL (4.8-10.8) Red Blood Count 3.11 M/UL (4.70-6.10) L Hemoglobin 9.8 G/DL (14.2-18.0) L Hematocrit 28.9 % (42.0-52.0) L Mean Corpuscular Volume 93 FL (80-99) Mean Corpuscular Hemoglobin 31.4 PG (27.0-31.0) H Mean Corpuscular Hemoglobin Concent 33.8 G/DL (32.0-36.0) Red Cell Distribution Width 14.4 % (11.6-14.8) Platelet Count 197 K/UL (150-450) Mean Platelet Volume 6.8 FL (6.5-10.1) Neutrophils (%) (Auto) % (45.0-75.0) Lymphocytes (%) (Auto) % (20.0-45.0) Monocytes (%) (Auto) % (1.0-10.0) Eosinophils (%) (Auto) % (0.0-3.0) Basophils (%) (Auto) % (0.0-2.0) Differential Total Cells Counted 100 Neutrophils % (Manual) 90 % (45-75) H Lymphocytes % (Manual) 6 % (20-45) L Monocytes % (Manual) 4 % (1-10) Eosinophils % (Manual) 0 % (0-3) Basophils % (Manual) 0 % (0-2) Band Neutrophils 0 % (0-8) Platelet Estimate Adequate Platelet Morphology Normal Anisocytosis 1+ Sodium Level 142 MMOL/L (136-145) Potassium Level 4.3 MMOL/L (3.5-5.1) Chloride Level 104 MMOL/L (98-107) Carbon Dioxide Level 34 MMOL/L (21-32) H Anion Gap 4 mmol/L (5-15) L Blood Urea Nitrogen 17 mg/dL (7-18) Creatinine 0.5 MG/DL (0.55-1.30) L Estimat Glomerular Filtration Rate > 60 mL/min (>60) Glucose Level 234 MG/DL (74-106) H Calcium Level 8.9 MG/DL (8.5-10.1) Plan Problems: (1) Acute encephalopathy (2) acute toxic encephalopathy (3) Sepsis (4) Dysphagia (5) Oligodendroglioma (6) Brain tumor (7) Cardiomyopathy (8) Sacral decubitus ulcer Assessment & Plan: Pt presented on admission with full thickness sacral pressure injury with undermining. Base of viable with trace amt of slough .Bone is visible. undermining clockwise 9-6o'clock ,at 12 o'clock base of wound is necrotic.mixed slough and soft necrosis noted along borders. Periwound erythematous and indurated.Mild odor resolved after cleansing of wound. No exudate noted. Both heels are firm and blanchable. No evidence of skin breakdown noted to all other bony prominences. Tx.Plan: Cleanse wound with Saline. Loosely pack with Hydrogel impregnated Kerlix packing .Apply Triad paste periwound. Cover with Optifoam drsg Every shift ( Q12Hr). Apply Cavilon Skin Barrier to both heels .Cover each heel with Optifoam drsg. Change every 7 days and prn Apply Cavilon Skin Barrier to both hips. Cover each hip with Optifoam drsg. Change every 7 days and prn. Air fluidized mattress. Reposition at least every 2hours or as tolerated. Off-load heels with pillow. Can plan for continued care based on above recommendations when discharged. (9) History of CVA (cerebrovascular accident) (10) Severe malnutrition Assessment & Plan: s/p PEG appreciate GI input nutrition input (11) Anemia (12) PEG (percutaneous endoscopic gastrostomy) adjustment/replacement/removal (13) Failure to thrive Assessment & Plan: DAILY ESTIMATED NEEDS: Needs based on Advanced wound, wt loss/ 56kg 30-35 kcals/kg 1076-2656 total kcals 1.5-2.0 g protein/kg 84-112 g total protein 25-30 mL/kg 8592-6264 total fluid mLs NUTRITION DIAGNOSIS: * Increased kcal/prot needs R/T wound healing, wt loss as evidenced by sacral stage 4 wound, possible significant wt loss of 19lbs/ 13.4% in <1 month. * Swallowing difficulty R/T dysphagia w/ h/o brain tumor and CVA as evidenced by pt on [facility] soft texture, [employer], admitted w/ FTT, now NPO, pending PEG placement. CURRENT TF:NPO ENTERAL NUTRITION RECOMMENDATIONS: Glucerna 1.5 @ 50ml/hr x 24 hrs to provide 1200ml, 1800kcal, 99g prot, 911ml free water * S/p PEG placement, as medically appropriate, initiate TF * Initiate Glucerna 1.5 @ 10ml/hr x 6 hrs, advance 10ml q 4-6 hrs as tolerated to goal rate. * HOB over 30 degrees/ water fluhs per MD ADDITIONAL RECOMMENDATIONS: * TXR PT TO BED WITH BEDSCALE, OBTAIN CALIBRATED BEDSCALE WT * Check lytes daily w/ TF, replete as needed - PT AT HIGH RISK FOR REFEEDING SYNDROME * Wound healing: add Vit C 500mg BID and Ziyad 1pkt BID * Add accucheck w/ SSI once TF initiates -> Monitor BGs closely- h/o DM, on decadron, on TF (14) Diabetes mellitus (15) Hypertension Harry Rivas November 07, 2018 11:28
[2018-11-07] MEDS: Lacosamide 50mg tablet ORAL SCH ×2 (12:31→21:55)
[2018-11-07] MEDS ORDERED: Piperacillin/Tazobactam 3.375 GM in NS 110 ML IVPB SCH (14:00)
--- NOTE | 2018-11-07 15:46 | Internal Med Progress Note ---
Subjective Date of Service: November 07, 2018 Physician Name Jesus Kidd Attending Physician Camacho Braun MD Current Medications Medications (Trade) Dose Ordered Sig/Chace Route PRN Reason Start Time Stop Time Status Last Admin Dose Admin Carvedilol (Coreg) 25 mg EVERY 12 HOURS ORAL 11/07/18 21:00 12/07/18 20:59 Ciprofloxacin (Cipro 500mg tab) 500 mg EVERY 12 HOURS ORAL 11/07/18 21:00 11/14/18 21:00 Dexamethasone (Decadron) 4 mg BID ORAL 11/04/18 18:00 12/04/18 17:59 11/07/18 09:26 Dextrose (Dextrose 50%) 25 ml Q30M PRN IV Hypoglycemia 11/06/18 12:00 12/06/18 11:59 Dextrose (Dextrose 50%) 50 ml Q30M PRN IV Hypoglycemia 11/06/18 12:00 12/06/18 11:59 Digoxin (Lanoxin) 0.25 mg DAILY ORAL 11/05/18 09:00 12/05/18 08:59 11/07/18 09:26 Divalproex Sodium (Depakote) 500 mg Q12HR ORAL 11/07/18 21:00 12/07/18 20:59 Finasteride (Proscar) 5 mg DAILY@2100 ORAL 11/04/18 21:00 12/04/18 20:59 11/06/18 21:33 Heparin Sodium (Porcine) (Heparin 5000 units/ml) 5,000 units EVERY 12 HOURS SUBQ 11/04/18 21:00 12/04/18 20:59 11/07/18 09:00 Insulin Aspart (NovoLOG) BEFORE MEALS AND HS SUBQ 11/06/18 16:30 12/06/18 16:29 11/07/18 12:12 Lacosamide (Vimpat) 200 mg Q12HR ORAL 11/07/18 12:30 12/07/18 12:29 11/07/18 12:31 Lamotrigine (LaMICtal) 50 mg DAILY ORAL 11/08/18 09:00 12/08/18 08:59 Lorazepam (Ativan 2mg/ml 1ml) 0.5 mg Q4H PRN IV For Anxiety 11/04/18 14:15 11/11/18 14:14 11/07/18 00:53 Losartan Potassium (Cozaar) 25 mg DAILY ORAL 11/08/18 09:00 12/08/18 08:59 Morphine Sulfate (Morphine Sulfate) 1 mg Q4H PRN IVP For Pain 11/04/18 14:15 11/11/18 14:14 11/05/18 05:50 Ondansetron HCl (Zofran) 4 mg Q6H PRN IVP Nausea & Vomiting 11/04/18 14:15 12/04/18 14:14 Sitagliptin Phosphate (Januvia) 50 mg DAILY ORAL 11/05/18 09:00 12/05/18 08:59 11/07/18 09:26 Tamsulosin HCl (Flomax) 0.4 mg BEDTIME ORAL 11/07/18 21:00 12/07/18 20:59 Allergies: Coded Allergies: No Known Allergies (Unverified , 09/27/18) ROS Limited/Unobtainable: Yes Subjective 68 YO M with brain cancer admitted for failure to thrive. Cover for Int med-Dr Braun. S/P PEG 11/05/18 Objective Last Vital Signs Date Time Temp Pulse Resp B/P (MAP) Pulse Ox O2 Delivery O2 Flow Rate FiO2 11/07/18 12:00 97.8 125 18 152/94 (113) 99 11/07/18 09:00 Room Air 11/05/18 13:45 6 Laboratory Tests Test 11/07/18 05:05 White Blood Count 5.1 K/UL (4.8-10.8) Red Blood Count 3.11 M/UL (4.70-6.10) L Hemoglobin 9.8 G/DL (14.2-18.0) L Hematocrit 28.9 % (42.0-52.0) L Mean Corpuscular Volume 93 FL (80-99) Mean Corpuscular Hemoglobin 31.4 PG (27.0-31.0) H Mean Corpuscular Hemoglobin Concent 33.8 G/DL (32.0-36.0) Red Cell Distribution Width 14.4 % (11.6-14.8) Platelet Count 197 K/UL (150-450) Mean Platelet Volume 6.8 FL (6.5-10.1) Neutrophils (%) (Auto) % (45.0-75.0) Lymphocytes (%) (Auto) % (20.0-45.0) Monocytes (%) (Auto) % (1.0-10.0) Eosinophils (%) (Auto) % (0.0-3.0) Basophils (%) (Auto) % (0.0-2.0) Differential Total Cells Counted 100 Neutrophils % (Manual) 90 % (45-75) H Lymphocytes % (Manual) 6 % (20-45) L Monocytes % (Manual) 4 % (1-10) Eosinophils % (Manual) 0 % (0-3) Basophils % (Manual) 0 % (0-2) Band Neutrophils 0 % (0-8) Platelet Estimate Adequate Platelet Morphology Normal Anisocytosis 1+ Sodium Level 142 MMOL/L (136-145) Potassium Level 4.3 MMOL/L (3.5-5.1) Chloride Level 104 MMOL/L (98-107) Carbon Dioxide Level 34 MMOL/L (21-32) H Anion Gap 4 mmol/L (5-15) L Blood Urea Nitrogen 17 mg/dL (7-18) Creatinine 0.5 MG/DL (0.55-1.30) L Estimat Glomerular Filtration Rate > 60 mL/min (>60) Glucose Level 234 MG/DL (74-106) H Calcium Level 8.9 MG/DL (8.5-10.1) Intake and Output 11/06/18 11/07/18 18:59 06:59 Output Total 800 ml 900 ml Balance -800 ml -900 ml Output Urine Total 800 ml 900 ml # Voids 1 # Bowel Movements 2 5 Objective PHYSICAL EXAMINATION: GENERAL: The patient is a well-developed, well-nourished male, in no apparent distress. HEENT: Eyes, pupils are equal and responsive to light and accommodation. Extraocular movements are intact. NECK: Supple without lymphadenopathy. CHEST: Lungs are clear to auscultation bilaterally without wheezes or rales. CARDIOVASCULAR: Regular rhythm and rate. S1 and S2 are normal without murmurs, rubs, or gallops. ABDOMEN: Soft, nontender, nondistended. Positive bowel sounds. No evidence of hepatosplenomegaly. Currently, no rebound or guarding noted. RECTAL: Not performed. GENITAL: Not performed. NEUROLOGIC: Unable to assess secondary to the patient's mental status. Assessment/Plan Assessment/Plan ASSESSMENT: This is a 68-year-old male with: 1. Dysphagia. 2. Failure to thrive. 3. Oligodendroglioma, WHO grade 2 brain cancer. 4. Seizure disorder. 5. History of cerebrovascular accident. 6. Right hemiparesis. 7. Hypertension. 8. Coronary artery disease. 9. Expressive aphasia. TREATMENT: 1. Dysphagia. A Gastroenterology consultation has been obtained with Dr. Baldev Burnett. S/P PEG placement 11/05/18. We will follow recommendation of Gastroenterology. 2. Oligodendroglioma, WHO grade 2 brain cancer. The patient is status post resection at [facility]. The patient is followed by Neurology. 3. Seizure disorder. Continue Vimpat as above. 4. Diabetes type 2. Continue NovoLog sliding scale. 5. History of cerebrovascular accident. 6. Right hemiparesis. 7. Hypertension. Continue losartan as above. 8. Coronary artery disease. 9. Expressive aphasia. Jesus Kidd MD November 07, 2018 15:46
[2018-11-07] MEDS ORDERED: LORazepam 0.5mg tab ORAL PRN (17:00)
--- NOTE | 2018-11-07 19:30 | NUR ---
NURSE NOTES: RECEIVED PATIENT LYING IN BED, AWAKE, NON VERBAL, HEAD OF BED ELEVATED/ASPIRATION PRECAUTION. NO SIGNS OF PAIN. NO SIGNS AND SYMPTOMS OF ACUTE CARDIO RESPIRATORY DISTRESS/SHORTNESS OF BREATH, NO PERIPHERAL EDEMA NOTED. ABDOMEN SOFT/AUDIBLE SOUNDS IN ALL QUADRANTS/G TUBE INTACT, TOLERATING FEEDING, NO GASTRIC RESIDUAL ASPIRATED/ABDOMINAL BINDER INTACT. SKIN ASSESSMENT; SACRAL DRESSING DRY AND INTACT/OPTIFOAM BILATERAL HEELS/BILATERAL HIPS/P200 MATTRESS. REPOSITIONED FOR COMFORT/PRESSURE RELIEF, TOLERATED WELL. SEIZURE PRECAUTIONS OBSERVED/SIDE RAILS PADDED. SIDE RAILS UP X3/BED IN LOWEST POSITION FOR SAFETY. CALL LIGHT WITHIN REACH. FREQUENT ROUNDING FOR SAFETY/NEEDS. NAD.
[2018-11-07] MEDS: Depakote 500mg tab ORAL SCH (20:48)
[2018-11-07] MEDS: Ciprofloxacin 500mg tab ORAL SCH (20:49)
[2018-11-07] MEDS: Tamsulosin 0.4mg cap ORAL SCH (20:49)
[2018-11-07] MEDS: Carvedilol 25mg Tab ORAL SCH (20:49)
[2018-11-07] MEDS ORDERED: Lacosamide 50mg tablet ORAL SCH (21:00)
[2018-11-07] MEDS ORDERED: Ciprofloxacin 500mg tab ORAL SCH (21:00)
--- NOTE | 2018-11-07 22:30 | NUR ---
NURSE NOTES: PM SACRAL WOUND CARE; NOTED WITH FOUL ODER, MINIMAL DRAINAGE, CLEANSED WITH NSS, PAT DRY, LIGHTLY PACKED WITH HYDROGEL IMPREGNATED KERLIX PACKING, TRIAD PASTE TO YANNICK WOUND, COVERED WITH OPTIFOAM DRESSING, TOLERATED WELL, REPOSITIONED FOR COMFORT/PRESSURE RELIEF.
[2018-11-08] VITALS: BP 139/94
[2018-11-08 04:00] VITALS: BP 104/71
[2018-11-08] MEDS: NovoLOG Insulin Flexpen SUBQ SCH ×4 (06:20→21:53)
--- NOTE | 2018-11-08 06:40 | NUR ---
NURSE NOTES: BLOOD GLUCOSE LEVEL MONITORED VIA GLUCOMETER WITH RESULT 285MG/DL, ASSESSED FOR SIGNS AND SYMPTOMS OF HYPERGLYCEMIA, NONE NOTED, ADM. 8 UNITS NOVOLOG INSULIN VIA SLIDING SCALE, TOLERATED WELL, NO ADVERSE REACTION NOTED AFTER 15 MINUTES. RESTING WELL.
--- NOTE | 2018-11-08 07:10 | NUR ---
HAND-OFF: Report given to CHIDI LINTON.
[2018-11-08 08:00] VITALS: BP 121/62
--- NOTE | 2018-11-08 08:15 | General Progress Note ---
Assessment/Plan Problem List: (1) Hypertension ICD Codes: I10 - Essential (primary) hypertension SNOMED: 13567866 (2) Diabetes mellitus ICD Codes: E11.9 - Type 2 diabetes mellitus without complications SNOMED: 92550076 (3) Failure to thrive SNOMED: 23366372 Status: stable Assessment/Plan: SUMMARY OF FINDINGS: 1. Gastric polyp, status post biopsy. 2. Status post successful percutaneous endoscopic gastrostomy placement. RECOMMENDATIONS: Okay for patient to be on mechanical soft diet for oral gratification with strict aspiration precautions PRN transfusions PPI GT site care daily/prn follow labs GTF dc planning Subjective ROS Limited/Unobtainable: No Allergies: Coded Allergies: No Known Allergies (Unverified , 09/27/18) Objective Last 24 Hour Vital Signs Date Time Temp Pulse Resp B/P (MAP) Pulse Ox O2 Delivery O2 Flow Rate FiO2 11/08/18 04:00 97.0 88 18 104/71 (82) 97 11/08/18 00:00 97.3 112 19 139/94 (109) 99 11/07/18 21:00 Room Air 11/07/18 20:49 106 162/85 11/07/18 20:00 98.3 106 19 117/77 (90) 100 11/07/18 16:00 98.0 118 19 134/88 (103) 98 11/07/18 12:00 97.8 125 18 152/94 (113) 99 11/07/18 09:26 120 11/07/18 09:00 Room Air Intake and Output 11/07/18 11/08/18 19:00 07:00 Intake Total 660 ml 850 ml Output Total 850 ml 800 ml Balance -190 ml 50 ml Intake Free Water 60 ml 300 ml Tube Feeding 600 ml 550 ml Output Urine Total 850 ml 800 ml # Bowel Movements 2 2 Height (Feet): 5 Height (Inches): 5.00 Weight (Pounds): 150 General Appearance: no apparent distress EENT: normal ENT inspection Neck: supple Cardiovascular: normal rate Respiratory/Chest: decreased breath sounds Abdomen: normal bowel sounds, non tender, soft Extremities: non-tender Baldev Burnett MD November 08, 2018 08:15
[2018-11-08] MEDS: Carvedilol 25mg Tab ORAL SCH ×2 (09:00→21:47)
--- NOTE | 2018-11-08 09:01 | Pulmonology Progress Note ---
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 hypertension coronary artery disease severe protein calorie malnutrition sacral decubitus ulcer present on admission anemia PLAN OF CARE MS floor s/p PEG strict aspiration precaution G-tube feeding , G-tube site care tube feeding type , goal rate and protein supplements as per RD recommendation BS management with Januvia and SSI prn seizure precaution, continue Vimpat, Lamictal and Depakote follow-up with neurologist as outpatient, continue Decadron BP management with BB and ARB and optimize further as needed continue digoxin urine culture with Pseudomonas, no IV access, Zosyn changed to Cipro wound care as per surgeon recommendation pain management bowel regimen supportive care monitor H&H with goal to keep hemoglobin above 7 , monitor renal parameters and electrolytes , correct electrolytes as needed case discussed and evaluated by supervising physician Subjective Allergies: Coded Allergies: No Known Allergies (Unverified , 09/27/18) Subjective weak, awake, no signs of resp distress, pulse ox stable on RA Objective Last 24 Hour Vital Signs Date Time Temp Pulse Resp B/P (MAP) Pulse Ox O2 Delivery O2 Flow Rate FiO2 11/08/18 08:00 98.7 89 18 121/62 (81) 96 11/08/18 04:00 97.0 88 18 104/71 (82) 97 11/08/18 00:00 97.3 112 19 139/94 (109) 99 11/07/18 21:00 Room Air 11/07/18 20:49 106 162/85 11/07/18 20:00 98.3 106 19 117/77 (90) 100 11/07/18 16:00 98.0 118 19 134/88 (103) 98 11/07/18 12:00 97.8 125 18 152/94 (113) 99 11/07/18 09:26 120 11/07/18 09:00 Room Air Intake and Output 11/07/18 11/08/18 19:00 07:00 Intake Total 660 ml 850 ml Output Total 850 ml 800 ml Balance -190 ml 50 ml Intake Free Water 60 ml 300 ml Tube Feeding 600 ml 550 ml Output Urine Total 850 ml 800 ml # Bowel Movements 2 2 Objective General Appearance: no acute distress, weak, chronically ill looking male, awake, HEENT: normocephalic, anicteric, PERRL Respiratory/Chest: lungs clear, no respiratory distress Abdomen: soft, non tender, non distended Extremities: no edema, pedal pulses normal Skin: sacral decub Neurologic/Psychiatric: abnormal gait, awake, but not able to verbalize needs Musculoskeletal: atrophy - BLE Current Medications Medications (Trade) Dose Ordered Sig/Chace Route PRN Reason Start Time Stop Time Status Last Admin Dose Admin Carvedilol (Coreg) 25 mg EVERY 12 HOURS ORAL 11/07/18 21:00 12/07/18 20:59 11/07/18 20:49 Ciprofloxacin (Cipro 500mg tab) 500 mg EVERY 12 HOURS ORAL 11/07/18 21:00 11/14/18 21:00 11/07/18 20:49 Dexamethasone (Decadron) 4 mg BID ORAL 11/04/18 18:00 12/04/18 17:59 11/07/18 17:12 Dextrose (Dextrose 50%) 25 ml Q30M PRN IV Hypoglycemia 11/06/18 12:00 12/06/18 11:59 Dextrose (Dextrose 50%) 50 ml Q30M PRN IV Hypoglycemia 11/06/18 12:00 12/06/18 11:59 Digoxin (Lanoxin) 0.25 mg DAILY ORAL 11/05/18 09:00 12/05/18 08:59 11/07/18 09:26 Divalproex Sodium (Depakote) 500 mg Q12HR ORAL 11/07/18 21:00 12/07/18 20:59 11/07/18 20:48 Finasteride (Proscar) 5 mg DAILY@2100 ORAL 11/04/18 21:00 12/04/18 20:59 11/07/18 20:49 Heparin Sodium (Porcine) (Heparin 5000 units/ml) 5,000 units EVERY 12 HOURS SUBQ 11/04/18 21:00 12/04/18 20:59 11/07/18 20:52 Insulin Aspart (NovoLOG) BEFORE MEALS AND HS SUBQ 11/06/18 16:30 12/06/18 16:29 11/08/18 06:20 Lacosamide (Vimpat) 200 mg Q12HR ORAL 11/07/18 12:30 12/07/18 12:29 11/07/18 21:55 Lamotrigine (LaMICtal) 50 mg DAILY ORAL 11/08/18 09:00 12/08/18 08:59 Lorazepam (Ativan) 0.5 mg Q4H PRN ORAL For Anxiety 11/07/18 17:00 11/14/18 16:59 Losartan Potassium (Cozaar) 25 mg DAILY ORAL 11/08/18 09:00 12/08/18 08:59 Morphine Sulfate (Morphine Sulfate) 1 mg Q4H PRN IVP For Pain 11/04/18 14:15 11/11/18 14:14 11/05/18 05:50 Ondansetron HCl (Zofran) 4 mg Q6H PRN IVP Nausea & Vomiting 11/04/18 14:15 12/04/18 14:14 Sitagliptin Phosphate (Januvia) 50 mg DAILY ORAL 11/05/18 09:00 12/05/18 08:59 11/07/18 09:26 Tamsulosin HCl (Flomax) 0.4 mg BEDTIME ORAL 11/07/18 21:00 12/07/18 20:59 11/07/18 20:49 Sari Madrigal NP November 08, 2018 09:01
[2018-11-08] MEDS: Losartan 25mg tab ORAL SCH (09:10)
[2018-11-08] MEDS: Depakote 500mg tab ORAL SCH ×2 (09:10→21:47)
[2018-11-08] MEDS: Lacosamide 50mg tablet ORAL SCH ×2 (09:11→21:46)
[2018-11-08] MEDS: sitaGLIPtin 50mg tab ORAL SCH (09:11)
[2018-11-08] MEDS: Ciprofloxacin 500mg tab ORAL SCH ×2 (09:11→21:46)
[2018-11-08] MEDS: Heparin 5000 units/ml inj SUBQ SCH ×2 (09:13→21:52)
[2018-11-08 09:57] LABS: HEMATOCRIT 28.3 % (42.0-52.0); HEMOGLOBIN 9.5 G/DL (14.2-18.0); MEAN CORPUSCULAR VOLUME 93 FL (80-99); PLATELET COUNT 171 K/UL (150-450); RED BLOOD COUNT 3.05 M/UL (4.70-6.10); RED CELL DISTRIBUTION WIDTH 14.1 % (11.6-14.8); WHITE BLOOD COUNT 5.5 K/UL (4.8-10.8)
[2018-11-08 10:19] LABS: ANION GAP 3 mmol/L (5-15); BLOOD UREA NITROGEN 17 mg/dL (7-18); CALCIUM 8.7 MG/DL (8.5-10.1); CARBON DIOXIDE 33 MMOL/L (21-32); CHLORIDE 101 MMOL/L (98-107); CREATININE 0.5 MG/DL (0.55-1.30); POTASSIUM 4.5 MMOL/L (3.5-5.1); SODIUM 137 MMOL/L (136-145)
[2018-11-08 12:00] VITALS: BP 121/69
--- NOTE | 2018-11-08 14:32 | Internal Med Progress Note ---
Subjective Date of Service: November 08, 2018 Physician Name Jesus Kidd Attending Physician Camacho Braun MD Current Medications Medications (Trade) Dose Ordered Sig/Chace Route PRN Reason Start Time Stop Time Status Last Admin Dose Admin Carvedilol (Coreg) 25 mg EVERY 12 HOURS ORAL 11/07/18 21:00 12/07/18 20:59 11/07/18 20:49 Ciprofloxacin (Cipro 500mg tab) 500 mg EVERY 12 HOURS ORAL 11/07/18 21:00 11/14/18 21:00 11/08/18 09:11 Dexamethasone (Decadron) 4 mg BID ORAL 11/04/18 18:00 12/04/18 17:59 11/08/18 09:09 Dextrose (Dextrose 50%) 25 ml Q30M PRN IV Hypoglycemia 11/06/18 12:00 12/06/18 11:59 Dextrose (Dextrose 50%) 50 ml Q30M PRN IV Hypoglycemia 11/06/18 12:00 12/06/18 11:59 Digoxin (Lanoxin) 0.25 mg DAILY ORAL 11/05/18 09:00 12/05/18 08:59 11/08/18 09:10 Divalproex Sodium (Depakote) 500 mg Q12HR ORAL 11/07/18 21:00 12/07/18 20:59 11/08/18 09:10 Finasteride (Proscar) 5 mg DAILY@2100 ORAL 11/04/18 21:00 12/04/18 20:59 11/07/18 20:49 Heparin Sodium (Porcine) (Heparin 5000 units/ml) 5,000 units EVERY 12 HOURS SUBQ 11/04/18 21:00 12/04/18 20:59 11/08/18 09:13 Insulin Aspart (NovoLOG) BEFORE MEALS AND HS SUBQ 11/06/18 16:30 12/06/18 16:29 11/08/18 11:40 Lacosamide (Vimpat) 200 mg Q12HR ORAL 11/07/18 12:30 12/07/18 12:29 11/08/18 09:11 Lamotrigine (LaMICtal) 50 mg DAILY ORAL 11/08/18 09:00 12/08/18 08:59 11/08/18 09:11 Lorazepam (Ativan) 0.5 mg Q4H PRN ORAL For Anxiety 11/07/18 17:00 11/14/18 16:59 Losartan Potassium (Cozaar) 25 mg DAILY ORAL 11/08/18 09:00 12/08/18 08:59 11/08/18 09:10 Morphine Sulfate (Morphine Sulfate) 1 mg Q4H PRN IVP For Pain 11/04/18 14:15 11/11/18 14:14 11/05/18 05:50 Ondansetron HCl (Zofran) 4 mg Q6H PRN IVP Nausea & Vomiting 11/04/18 14:15 12/04/18 14:14 Sitagliptin Phosphate (Januvia) 50 mg DAILY ORAL 11/05/18 09:00 12/05/18 08:59 11/08/18 09:11 Tamsulosin HCl (Flomax) 0.4 mg BEDTIME ORAL 11/07/18 21:00 12/07/18 20:59 11/07/18 20:49 Allergies: Coded Allergies: No Known Allergies (Unverified , 09/27/18) ROS Limited/Unobtainable: No Constitutional: Reports: no symptoms HEENT: Reports: no symptoms Cardiovascular: Reports: no symptoms Respiratory: Reports: no symptoms Gastrointestinal/Abdominal: Reports: no symptoms Genitourinary: Reports: no symptoms Neurologic/Psychiatric: Reports: no symptoms Subjective 68 YO M with brain cancer admitted for failure to thrive. Cover for Int gage-Dr Braun. S/P PEG 11/05/18 Objective Last Vital Signs Date Time Temp Pulse Resp B/P (MAP) Pulse Ox O2 Delivery O2 Flow Rate FiO2 11/08/18 12:00 98.5 76 18 121/69 (86) 97 11/08/18 09:00 Room Air 11/05/18 13:45 6 Laboratory Tests Test 11/08/18 08:00 White Blood Count 5.5 K/UL (4.8-10.8) Red Blood Count 3.05 M/UL (4.70-6.10) L Hemoglobin 9.5 G/DL (14.2-18.0) L Hematocrit 28.3 % (42.0-52.0) L Mean Corpuscular Volume 93 FL (80-99) Mean Corpuscular Hemoglobin 31.1 PG (27.0-31.0) H Mean Corpuscular Hemoglobin Concent 33.6 G/DL (32.0-36.0) Red Cell Distribution Width 14.1 % (11.6-14.8) Platelet Count 171 K/UL (150-450) Mean Platelet Volume 7.5 FL (6.5-10.1) Neutrophils (%) (Auto) % (45.0-75.0) Lymphocytes (%) (Auto) % (20.0-45.0) Monocytes (%) (Auto) % (1.0-10.0) Eosinophils (%) (Auto) % (0.0-3.0) Basophils (%) (Auto) % (0.0-2.0) Differential Total Cells Counted 100 Neutrophils % (Manual) 71 % (45-75) Lymphocytes % (Manual) 5 % (20-45) L Monocytes % (Manual) 6 % (1-10) Eosinophils % (Manual) 0 % (0-3) Basophils % (Manual) 0 % (0-2) Band Neutrophils 18 % (0-8) H Platelet Estimate Adequate Platelet Morphology Normal Anisocytosis 1+ Sodium Level 137 MMOL/L (136-145) Potassium Level 4.5 MMOL/L (3.5-5.1) Chloride Level 101 MMOL/L (98-107) Carbon Dioxide Level 33 MMOL/L (21-32) H Anion Gap 3 mmol/L (5-15) L Blood Urea Nitrogen 17 mg/dL (7-18) Creatinine 0.5 MG/DL (0.55-1.30) L Estimat Glomerular Filtration Rate > 60 mL/min (>60) Glucose Level 232 MG/DL (74-106) H Calcium Level 8.7 MG/DL (8.5-10.1) Intake and Output 11/07/18 11/08/18 18:59 06:59 Intake Total 600 ml 960 ml Output Total 850 ml 800 ml Balance -250 ml 160 ml Intake Free Water 360 ml Tube Feeding 600 ml 600 ml Output Urine Total 850 ml 800 ml # Bowel Movements 2 2 Objective PHYSICAL EXAMINATION: GENERAL: The patient is a well-developed, well-nourished male, in no apparent distress. HEENT: Eyes, pupils are equal and responsive to light and accommodation. Extraocular movements are intact. NECK: Supple without lymphadenopathy. CHEST: Lungs are clear to auscultation bilaterally without wheezes or rales. CARDIOVASCULAR: Regular rhythm and rate. S1 and S2 are normal without murmurs, rubs, or gallops. ABDOMEN: Soft, nontender, nondistended. Positive bowel sounds. No evidence of hepatosplenomegaly. Currently, no rebound or guarding noted. RECTAL: Not performed. GENITAL: Not performed. NEUROLOGIC: Unable to assess secondary to the patient's mental status. Assessment/Plan Assessment/Plan ASSESSMENT: This is a 68-year-old male with: 1. Dysphagia. 2. Failure to thrive. 3. Oligodendroglioma, WHO grade 2 brain cancer. 4. Seizure disorder. 5. History of cerebrovascular accident. 6. Right hemiparesis. 7. Hypertension. 8. Coronary artery disease. 9. Expressive aphasia. TREATMENT: 1. Dysphagia. A Gastroenterology consultation has been obtained with Dr. Baldev Burnett. S/P PEG placement 11/05/18. We will follow recommendation of Gastroenterology. 2. Oligodendroglioma, WHO grade 2 brain cancer. The patient is status post resection at [facility]. The patient is followed by Neurology. 3. Seizure disorder. Continue Vimpat as above. 4. Diabetes type 2. Continue NovoLog sliding scale. 5. History of cerebrovascular accident. 6. Right hemiparesis. 7. Hypertension. Continue losartan as above. 8. Coronary artery disease. 9. Expressive aphasia. Jesus Kidd MD November 08, 2018 14:32
[2018-11-08 16:00] VITALS: BP 126/74
--- NOTE | 2018-11-08 16:25 | NUR ---
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
--- NOTE | 2018-11-08 17:24 | Surgery Progress Note ---
Surgery Progress Note Subjective Additional Comments no acute events. stable. comfortable. Objective Last 24 Hour Vital Signs Date Time Temp Pulse Resp B/P (MAP) Pulse Ox O2 Delivery O2 Flow Rate FiO2 11/08/18 16:00 97.5 97 18 126/74 (91) 97 11/08/18 12:00 98.5 76 18 121/69 (86) 97 11/08/18 09:10 121/62 11/08/18 09:10 89 11/08/18 09:00 89 121/62 11/08/18 09:00 Room Air 11/08/18 08:00 98.7 89 18 121/62 (81) 96 11/08/18 04:00 97.0 88 18 104/71 (82) 97 11/08/18 00:00 97.3 112 19 139/94 (109) 99 11/07/18 21:00 Room Air 11/07/18 20:49 106 162/85 11/07/18 20:00 98.3 106 19 117/77 (90) 100 I&O Intake and Output 11/07/18 11/08/18 18:59 06:59 Intake Total 600 ml 960 ml Output Total 850 ml 800 ml Balance -250 ml 160 ml Intake Free Water 360 ml Tube Feeding 600 ml 600 ml Output Urine Total 850 ml 800 ml # Bowel Movements 2 2 Dressing: saturated Wound: clean, other Drains: other Cardiovascular: RSR Respiratory: clear Abdomen: soft, present bowel sounds, non-distended Extremities: no tenderness, no cyanosis Laboratory Tests Test 11/08/18 08:00 White Blood Count 5.5 K/UL (4.8-10.8) Red Blood Count 3.05 M/UL (4.70-6.10) L Hemoglobin 9.5 G/DL (14.2-18.0) L Hematocrit 28.3 % (42.0-52.0) L Mean Corpuscular Volume 93 FL (80-99) Mean Corpuscular Hemoglobin 31.1 PG (27.0-31.0) H Mean Corpuscular Hemoglobin Concent 33.6 G/DL (32.0-36.0) Red Cell Distribution Width 14.1 % (11.6-14.8) Platelet Count 171 K/UL (150-450) Mean Platelet Volume 7.5 FL (6.5-10.1) Neutrophils (%) (Auto) % (45.0-75.0) Lymphocytes (%) (Auto) % (20.0-45.0) Monocytes (%) (Auto) % (1.0-10.0) Eosinophils (%) (Auto) % (0.0-3.0) Basophils (%) (Auto) % (0.0-2.0) Differential Total Cells Counted 100 Neutrophils % (Manual) 71 % (45-75) Lymphocytes % (Manual) 5 % (20-45) L Monocytes % (Manual) 6 % (1-10) Eosinophils % (Manual) 0 % (0-3) Basophils % (Manual) 0 % (0-2) Band Neutrophils 18 % (0-8) H Platelet Estimate Adequate Platelet Morphology Normal Anisocytosis 1+ Sodium Level 137 MMOL/L (136-145) Potassium Level 4.5 MMOL/L (3.5-5.1) Chloride Level 101 MMOL/L (98-107) Carbon Dioxide Level 33 MMOL/L (21-32) H Anion Gap 3 mmol/L (5-15) L Blood Urea Nitrogen 17 mg/dL (7-18) Creatinine 0.5 MG/DL (0.55-1.30) L Estimat Glomerular Filtration Rate > 60 mL/min (>60) Glucose Level 232 MG/DL (74-106) H Calcium Level 8.7 MG/DL (8.5-10.1) Plan Problems: (1) Acute encephalopathy (2) acute toxic encephalopathy (3) Sepsis (4) Dysphagia (5) Oligodendroglioma (6) Brain tumor (7) Cardiomyopathy (8) Sacral decubitus ulcer Assessment & Plan: Pt presented on admission with full thickness sacral pressure injury with undermining. Base of viable with trace amt of slough .Bone is visible. undermining clockwise 9-6o'clock ,at 12 o'clock base of wound is necrotic.mixed slough and soft necrosis noted along borders. Periwound erythematous and indurated.Mild odor resolved after cleansing of wound. No exudate noted. Both heels are firm and blanchable. No evidence of skin breakdown noted to all other bony prominences. Tx.Plan: Cleanse wound with Saline. Loosely pack with Hydrogel impregnated Kerlix packing .Apply Triad paste periwound. Cover with Optifoam drsg Every shift ( Q12Hr). Apply Cavilon Skin Barrier to both heels .Cover each heel with Optifoam drsg. Change every 7 days and prn Apply Cavilon Skin Barrier to both hips. Cover each hip with Optifoam drsg. Change every 7 days and prn. Air fluidized mattress. Reposition at least every 2hours or as tolerated. Off-load heels with pillow. Can plan for continued care based on above recommendations when discharged. (9) History of CVA (cerebrovascular accident) (10) Severe malnutrition Assessment & Plan: s/p PEG appreciate GI input nutrition input (11) Anemia (12) PEG (percutaneous endoscopic gastrostomy) adjustment/replacement/removal (13) Failure to thrive Assessment & Plan: DAILY ESTIMATED NEEDS: Needs based on Advanced wound, wt loss/ 56kg 30-35 kcals/kg 6478-2499 total kcals 1.5-2.0 g protein/kg 84-112 g total protein 25-30 mL/kg 9875-1504 total fluid mLs NUTRITION DIAGNOSIS: * Increased kcal/prot needs R/T wound healing, wt loss as evidenced by sacral stage 4 wound, possible significant wt loss of 19lbs/ 13.4% in <1 month. 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 CURRENT TF:NPO ENTERAL NUTRITION RECOMMENDATIONS: Glucerna 1.5 @ 50ml/hr x 24 hrs to provide 1200ml, 1800kcal, 99g prot, 911ml free water * S/p PEG placement, as medically appropriate, initiate TF * Initiate Glucerna 1.5 @ 10ml/hr x 6 hrs, advance 10ml q 4-6 hrs as tolerated to goal rate. * HOB over 30 degrees/ water fluhs per MD ADDITIONAL RECOMMENDATIONS: * TXR PT TO BED WITH BEDSCALE, OBTAIN CALIBRATED BEDSCALE WT * Check lytes daily w/ TF, replete as needed - PT AT HIGH RISK FOR REFEEDING SYNDROME * Wound healing: add Vit C 500mg BID and Ziyad 1pkt BID * Add accucheck w/ SSI once TF initiates -> Monitor BGs closely- h/o DM, on decadron, on TF (14) Diabetes mellitus (15) Hypertension Benyamini,Harry November 08, 2018 17:24
--- NOTE | 2018-11-08 18:58 | NUR ---
HAND-OFF: Report given to GUILLERMO Palafox.
--- NOTE | 2018-11-08 19:30 | NUR ---
NURSE NOTES: RECEIVED PATIENT LYING IN BED, AWAKE, EYES OPEN, NON VERBAL, HEAD OF BED ELEVATED/ASPIRATION PRECAUTION, ALL NEEDS ANTICIPATED AND MET BY NURSING STAFF. NO SIGNS AND SYMPTOMS OF PAIN, NO FACIAL GRIMACING NOTED. NO SIGNS AND SYMPTOMS OF ACUTE CARDIO RESPIRATORY DISTRESS/SHORTNESS OF BREATH, NO EDEMA NOTED. G TUBE INTACT/PATENT, TOLERATING G TUBE FEEDING, NO GASTRIC RESIDUAL ASPIRATED, NO REPORT OF N/V. DRESSINGS DRY AND INTACT TO SACRAL/BILATERAL HIPS/BILATERAL HEELS/LEFT MEDIAL KNEE. SIDE RAILS UP X3/BED IN LOWEST POSITION FOR SAFETY. FREQUENT ROUNDING FOR SAFETY/NEEDS. NAD.
[2018-11-08 20:00] VITALS: BP 121/75
[2018-11-08] MEDS: Tamsulosin 0.4mg cap ORAL SCH (21:47)
--- NOTE | 2018-11-08 22:00 | NUR ---
NURSE NOTES: SACRAL WOUND CARE, TOLERATED WELL. NAD.
[2018-11-09] VITALS: BP 115/67
[2018-11-09 04:00] VITALS: BP 117/66
--- NOTE | 2018-11-09 06:17 | NUR ---
NURSE NOTES: MONITORED BLOOD GLUCOSE LEVEL VIA GLUCOMETER WITH RESULT 331MG/DL, ASSESSED FOR SIGNS AND SYMPTOMS OF HYPERGLYCEMIA, NONE NOTED. ADM. 10 UNITS NOVOLOG INSULIN VIA SLIDING SCALE, TOLERATED WELL, NO ADVERSE REACTION NOTED AFTER 15 MINUTES.
[2018-11-09] MEDS: NovoLOG Insulin Flexpen SUBQ SCH ×2 (06:25→11:35)
[2018-11-09 07:17] LABS: HEMATOCRIT 31.8 % (42.0-52.0); HEMOGLOBIN 10.7 G/DL (14.2-18.0); MEAN CORPUSCULAR VOLUME 93 FL (80-99); PLATELET COUNT 200 K/UL (150-450); RED BLOOD COUNT 3.41 M/UL (4.70-6.10); RED CELL DISTRIBUTION WIDTH 14.2 % (11.6-14.8); WHITE BLOOD COUNT 6.9 K/UL (4.8-10.8)
[2018-11-09 07:44] LABS: ANION GAP 5 mmol/L (5-15); BLOOD UREA NITROGEN 21 mg/dL (7-18); CALCIUM 9.2 MG/DL (8.5-10.1); CARBON DIOXIDE 33 MMOL/L (21-32); CHLORIDE 98 MMOL/L (98-107); CREATININE 0.7 MG/DL (0.55-1.30); PHOSPHORUS 2.5 MG/DL (2.5-4.9); POTASSIUM 4.5 MMOL/L (3.5-5.1); SODIUM 136 MMOL/L (136-145)
--- NOTE | 2018-11-09 07:46 | NUR ---
NURSE NOTES: RN received pt in stable condition. No acute distress or SOB. Pt tolerating G-Tube feeding well; tube flushing without resistance; no residual. Head of bed elevated for aspiration precautions. Wound dressings dry and intact. Will continue to turn pt Q2. Case management consult for SNF placement; RN to f/u. Will continue plan of care.
[2018-11-09 08:00] VITALS: BP 121/79
[2018-11-09] MEDS: Lacosamide 50mg tablet ORAL SCH (09:04)
[2018-11-09] MEDS: Depakote 500mg tab ORAL SCH (09:05)
[2018-11-09] MEDS: Carvedilol 25mg Tab ORAL SCH (09:05)
[2018-11-09] MEDS: sitaGLIPtin 50mg tab ORAL SCH (09:05)
[2018-11-09] MEDS: Ciprofloxacin 500mg tab ORAL SCH (09:05)
[2018-11-09] MEDS: Losartan 25mg tab ORAL SCH (09:05)
[2018-11-09] MEDS: Heparin 5000 units/ml inj SUBQ SCH (09:08)
--- NOTE | 2018-11-09 11:41 | GI Progress Note ---
Assessment/Plan Problems: (1) Failure to thrive SNOMED: 21949513 (2) Anemia ICD Codes: D64.9 - Anemia, unspecified SNOMED: 797671355 (3) PEG (percutaneous endoscopic gastrostomy) adjustment/replacement/removal ICD Codes: Z43.1 - Encounter for attention to gastrostomy SNOMED: 974840144, 237823846 (4) Dysphagia ICD Codes: R13.10 - Dysphagia, unspecified SNOMED: 73831690, 213973447 Status: stable Status Narrative Discussed with Dr. Burnett. Assessment/Plan SUMMARY OF FINDINGS: 1. Gastric polyp, status post biopsy. 2. Status post successful percutaneous endoscopic gastrostomy placement. RECOMMENDATIONS: Okay for patient to be on mechanical soft diet for oral gratification with strict aspiration precautions PRN transfusions PPI GT site care daily/prn follow labs dc planning The patient was seen and examined at bedside and all new and available data was reviewed in the patients chart. I agree with the above findings, impression and plan. (Patient seen earlier today. Signature stamp does not reflect patient encounter time.). - Baldev Burnett MD Subjective Subjective limited Objective Last 24 Hour Vital Signs Date Time Temp Pulse Resp B/P (MAP) Pulse Ox O2 Delivery O2 Flow Rate FiO2 11/09/18 09:09 90 11/09/18 09:05 121/79 11/09/18 09:05 90 121/79 11/09/18 09:00 Room Air 11/09/18 08:00 98.0 90 20 121/79 (93) 98 11/09/18 04:00 97.4 88 18 117/66 (83) 98 11/09/18 00:00 96.9 86 18 115/67 (83) 96 11/08/18 21:47 95 129/78 11/08/18 21:00 Room Air 11/08/18 20:00 95.8 98 18 121/75 (90) 98 11/08/18 16:00 97.5 97 18 126/74 (91) 97 11/08/18 12:00 98.5 76 18 121/69 (86) 97 Intake and Output 11/08/18 11/09/18 19:00 07:00 Intake Total 50 ml 850 ml Output Total 850 ml 1000 ml Balance -800 ml -150 ml Intake Free Water 300 ml Tube Feeding 50 ml 550 ml Output Urine Total 850 ml 1000 ml # Bowel Movements 1 4 Laboratory Tests Test 11/09/18 06:35 White Blood Count 6.9 K/UL (4.8-10.8) Red Blood Count 3.41 M/UL (4.70-6.10) L Hemoglobin 10.7 G/DL (14.2-18.0) L Hematocrit 31.8 % (42.0-52.0) L Mean Corpuscular Volume 93 FL (80-99) Mean Corpuscular Hemoglobin 31.3 PG (27.0-31.0) H Mean Corpuscular Hemoglobin Concent 33.5 G/DL (32.0-36.0) Red Cell Distribution Width 14.2 % (11.6-14.8) Platelet Count 200 K/UL (150-450) Mean Platelet Volume 7.0 FL (6.5-10.1) Neutrophils (%) (Auto) % (45.0-75.0) Lymphocytes (%) (Auto) % (20.0-45.0) Monocytes (%) (Auto) % (1.0-10.0) Eosinophils (%) (Auto) % (0.0-3.0) Basophils (%) (Auto) % (0.0-2.0) Differential Total Cells Counted 100 Neutrophils % (Manual) 89 % (45-75) H Lymphocytes % (Manual) 7 % (20-45) L Monocytes % (Manual) 4 % (1-10) Eosinophils % (Manual) 0 % (0-3) Basophils % (Manual) 0 % (0-2) Band Neutrophils 0 % (0-8) Platelet Estimate Adequate Platelet Morphology Normal Anisocytosis 1+ Sodium Level 136 MMOL/L (136-145) Potassium Level 4.5 MMOL/L (3.5-5.1) Chloride Level 98 MMOL/L (98-107) Carbon Dioxide Level 33 MMOL/L (21-32) H Anion Gap 5 mmol/L (5-15) Blood Urea Nitrogen 21 mg/dL (7-18) H Creatinine 0.7 MG/DL (0.55-1.30) Estimat Glomerular Filtration Rate > 60 mL/min (>60) Glucose Level 347 MG/DL (74-106) #H Calcium Level 9.2 MG/DL (8.5-10.1) Phosphorus Level 2.5 MG/DL (2.5-4.9) Height (Feet): 5 Height (Inches): 5.00 Weight (Pounds): 150 General Appearance: WD/WN, no apparent distress, alert Cardiovascular: normal rate Respiratory/Chest: normal breath sounds, no respiratory distress Abdominal Exam: normal bowel sounds, non tender, soft, GT site - c/d/i Extremities: non-tender Benny Pham NP November 09, 2018 11:40
[2018-11-09 12:00] VITALS: BP 129/86
--- NOTE | 2018-11-09 12:33 | Surgery Progress Note ---
Surgery Progress Note Subjective Symptoms: improved, tolerating diet, passing flatus, BM Objective Last 24 Hour Vital Signs Date Time Temp Pulse Resp B/P (MAP) Pulse Ox O2 Delivery O2 Flow Rate FiO2 11/09/18 12:00 98.0 83 20 129/86 (100) 98 11/09/18 09:09 90 11/09/18 09:05 121/79 11/09/18 09:05 90 121/79 11/09/18 09:00 Room Air 11/09/18 08:00 98.0 90 20 121/79 (93) 98 11/09/18 04:00 97.4 88 18 117/66 (83) 98 11/09/18 00:00 96.9 86 18 115/67 (83) 96 11/08/18 21:47 95 129/78 11/08/18 21:00 Room Air 11/08/18 20:00 95.8 98 18 121/75 (90) 98 11/08/18 16:00 97.5 97 18 126/74 (91) 97 I&O Intake and Output 11/08/18 11/09/18 19:00 07:00 Intake Total 50 ml 850 ml Output Total 850 ml 1000 ml Balance -800 ml -150 ml Intake Free Water 300 ml Tube Feeding 50 ml 550 ml Output Urine Total 850 ml 1000 ml # Bowel Movements 1 4 Dressing: saturated Wound: clean, other Cardiovascular: RSR Respiratory: clear Abdomen: soft, present bowel sounds, non-distended Extremities: no tenderness, no cyanosis Laboratory Tests Test 11/09/18 06:35 White Blood Count 6.9 K/UL (4.8-10.8) Red Blood Count 3.41 M/UL (4.70-6.10) L Hemoglobin 10.7 G/DL (14.2-18.0) L Hematocrit 31.8 % (42.0-52.0) L Mean Corpuscular Volume 93 FL (80-99) Mean Corpuscular Hemoglobin 31.3 PG (27.0-31.0) H Mean Corpuscular Hemoglobin Concent 33.5 G/DL (32.0-36.0) Red Cell Distribution Width 14.2 % (11.6-14.8) Platelet Count 200 K/UL (150-450) Mean Platelet Volume 7.0 FL (6.5-10.1) Neutrophils (%) (Auto) % (45.0-75.0) Lymphocytes (%) (Auto) % (20.0-45.0) Monocytes (%) (Auto) % (1.0-10.0) Eosinophils (%) (Auto) % (0.0-3.0) Basophils (%) (Auto) % (0.0-2.0) Differential Total Cells Counted 100 Neutrophils % (Manual) 89 % (45-75) H Lymphocytes % (Manual) 7 % (20-45) L Monocytes % (Manual) 4 % (1-10) Eosinophils % (Manual) 0 % (0-3) Basophils % (Manual) 0 % (0-2) Band Neutrophils 0 % (0-8) Platelet Estimate Adequate Platelet Morphology Normal Anisocytosis 1+ Sodium Level 136 MMOL/L (136-145) Potassium Level 4.5 MMOL/L (3.5-5.1) Chloride Level 98 MMOL/L (98-107) Carbon Dioxide Level 33 MMOL/L (21-32) H Anion Gap 5 mmol/L (5-15) Blood Urea Nitrogen 21 mg/dL (7-18) H Creatinine 0.7 MG/DL (0.55-1.30) Estimat Glomerular Filtration Rate > 60 mL/min (>60) Glucose Level 347 MG/DL (74-106) #H Calcium Level 9.2 MG/DL (8.5-10.1) Phosphorus Level 2.5 MG/DL (2.5-4.9) Plan Problems: (1) Acute encephalopathy (2) acute toxic encephalopathy (3) Sepsis (4) Dysphagia (5) Oligodendroglioma (6) Brain tumor (7) Cardiomyopathy (8) Sacral decubitus ulcer Assessment & Plan: Pt presented on admission with full thickness sacral pressure injury with undermining. Base of viable with trace amt of slough .Bone is visible. undermining clockwise 9-6o'clock ,at 12 o'clock base of wound is necrotic.mixed slough and soft necrosis noted along borders. Periwound erythematous and indurated.Mild odor resolved after cleansing of wound. No exudate noted. Both heels are firm and blanchable. No evidence of skin breakdown noted to all other bony prominences. Tx.Plan: Cleanse wound with Saline. Loosely pack with Hydrogel impregnated Kerlix packing .Apply Triad paste periwound. Cover with Optifoam drsg Every shift ( Q12Hr). Apply Cavilon Skin Barrier to both heels .Cover each heel with Optifoam drsg. Change every 7 days and prn Apply Cavilon Skin Barrier to both hips. Cover each hip with Optifoam drsg. Change every 7 days and prn. Air fluidized mattress. Reposition at least every 2hours or as tolerated. Off-load heels with pillow. Can plan for continued care based on above recommendations when discharged. (9) History of CVA (cerebrovascular accident) (10) Severe malnutrition Assessment & Plan: s/p PEG appreciate GI input nutrition input (11) Anemia (12) PEG (percutaneous endoscopic gastrostomy) adjustment/replacement/removal (13) Failure to thrive Assessment & Plan: DAILY ESTIMATED NEEDS: Needs based on Advanced wound, wt loss/ 56kg 30-35 kcals/kg 7865-1943 total kcals 1.5-2.0 g protein/kg 84-112 g total protein 25-30 mL/kg 9044-9098 total fluid mLs NUTRITION DIAGNOSIS: * Increased kcal/prot needs R/T wound healing, wt loss as evidenced by sacral stage 4 wound, possible significant wt loss of 19lbs/ 13.4% in <1 month. * Swallowing difficulty R/T dysphagia w/ h/o brain tumor and CVA as evidenced by pt on [facility] soft texture, [employer], admitted w/ FTT, now NPO, pending PEG placement. CURRENT TF:NPO ENTERAL NUTRITION RECOMMENDATIONS: Glucerna 1.5 @ 50ml/hr x 24 hrs to provide 1200ml, 1800kcal, 99g prot, 911ml free water * S/p PEG placement, as medically appropriate, initiate TF * Initiate Glucerna 1.5 @ 10ml/hr x 6 hrs, advance 10ml q 4-6 hrs as tolerated to goal rate. * HOB over 30 degrees/ water fluhs per MD ADDITIONAL RECOMMENDATIONS: * TXR PT TO BED WITH BEDSCALE, OBTAIN CALIBRATED BEDSCALE WT * Check lytes daily w/ TF, replete as needed - PT AT HIGH RISK FOR REFEEDING SYNDROME * Wound healing: add Vit C 500mg BID and Ziyad 1pkt BID * Add accucheck w/ SSI once TF initiates -> Monitor BGs closely- h/o DM, on decadron, on TF (14) Diabetes mellitus (15) Hypertension Harry Rivas November 09, 2018 12:33
--- NOTE | 2018-11-09 13:23 | Pulmonology Progress Note ---
Assessment/Plan Problems: (1) Severe malnutrition (2) Sacral decubitus ulcer (3) Oligodendroglioma (4) History of CVA (cerebrovascular accident) (5) Cardiomyopathy (6) Diabetes mellitus (7) Hypertension (8) Brain tumor Assessment/Plan all reviewediv fluids tolerated Gtube very well seizure precaution, no seizures so far family doesn't want any seizure meds nutrition evaluation dvt prophylaxis check coagulation dc planning All medications and treatment were reviewed.r family not amenable to comfort care Subjective ROS Limited/Unobtainable: No Constitutional: Reports: no symptoms HEENT: Repors: no symptoms Respiratory: Reports: no symptoms Allergies: Coded Allergies: No Known Allergies (Unverified , 09/27/18) Objective Last 24 Hour Vital Signs Date Time Temp Pulse Resp B/P (MAP) Pulse Ox O2 Delivery O2 Flow Rate FiO2 11/09/18 12:00 98.0 83 20 129/86 (100) 98 11/09/18 09:09 90 11/09/18 09:05 121/79 11/09/18 09:05 90 121/79 11/09/18 09:00 Room Air 11/09/18 08:00 98.0 90 20 121/79 (93) 98 11/09/18 04:00 97.4 88 18 117/66 (83) 98 11/09/18 00:00 96.9 86 18 115/67 (83) 96 11/08/18 21:47 95 129/78 11/08/18 21:00 Room Air 11/08/18 20:00 95.8 98 18 121/75 (90) 98 11/08/18 16:00 97.5 97 18 126/74 (91) 97 Intake and Output 11/08/18 11/09/18 19:00 07:00 Intake Total 50 ml 850 ml Output Total 850 ml 1000 ml Balance -800 ml -150 ml Intake Free Water 300 ml Tube Feeding 50 ml 550 ml Output Urine Total 850 ml 1000 ml # Bowel Movements 1 4 General Appearance: cachetic HEENT: normocephalic, atraumatic Respiratory/Chest: chest wall non-tender, lungs clear Cardiovascular: normal peripheral pulses, normal rate Abdomen: normal bowel sounds, soft, non tender Genitourinary: normal external genitalia Skin: no rash Laboratory Tests 11/09/18 06:35: White Blood Count 6.9, Red Blood Count 3.41L, Hemoglobin 10.7L, Hematocrit 31.8L , Mean Corpuscular Volume 93, Mean Corpuscular Hemoglobin 31.3H, Mean Corpuscular Hemoglobin Concent 33.5, Red Cell Distribution Width 14.2, Platelet Count 200, Mean Platelet Volume 7.0, Neutrophils (%) (Auto) , Lymphocytes (%) ( Auto) , Monocytes (%) (Auto) , Eosinophils (%) (Auto) , Basophils (%) (Auto) , Differential Total Cells Counted 100, Neutrophils % (Manual) 89H, Lymphocytes % (Manual) 7L, Monocytes % (Manual) 4, Eosinophils % (Manual) 0, Basophils % ( Manual) 0, Band Neutrophils 0, Platelet Estimate Adequate, Platelet Morphology Normal, Anisocytosis 1+, Sodium Level 136, Potassium Level 4.5, Chloride Level 98, Carbon Dioxide Level 33H, Anion Gap 5, Blood Urea Nitrogen 21H, Creatinine 0.7, Estimat Glomerular Filtration Rate > 60, Glucose Level 347#H, Calcium Level 9.2, Phosphorus Level 2.5 Current Medications Medications (Trade) Dose Ordered Sig/Chace Route PRN Reason Start Time Stop Time Status Last Admin Dose Admin Carvedilol (Coreg) 25 mg EVERY 12 HOURS ORAL 11/07/18 21:00 12/07/18 20:59 11/09/18 09:05 Ciprofloxacin (Cipro 500mg tab) 500 mg EVERY 12 HOURS ORAL 11/07/18 21:00 11/14/18 21:00 11/09/18 09:05 Dexamethasone (Decadron) 4 mg BID ORAL 11/04/18 18:00 12/04/18 17:59 11/09/18 09:06 Dextrose (Dextrose 50%) 25 ml Q30M PRN IV Hypoglycemia 11/06/18 12:00 12/06/18 11:59 Dextrose (Dextrose 50%) 50 ml Q30M PRN IV Hypoglycemia 11/06/18 12:00 12/06/18 11:59 Digoxin (Lanoxin) 0.25 mg DAILY ORAL 11/05/18 09:00 12/05/18 08:59 11/09/18 09:09 Divalproex Sodium (Depakote) 500 mg Q12HR ORAL 11/07/18 21:00 12/07/18 20:59 11/09/18 09:05 Finasteride (Proscar) 5 mg DAILY@2100 ORAL 11/04/18 21:00 12/04/18 20:59 11/08/18 21:46 Heparin Sodium (Porcine) (Heparin 5000 units/ml) 5,000 units EVERY 12 HOURS SUBQ 11/04/18 21:00 12/04/18 20:59 11/09/18 09:08 Insulin Aspart (NovoLOG) BEFORE MEALS AND HS SUBQ 11/06/18 16:30 12/06/18 16:29 11/09/18 11:35 Lacosamide (Vimpat) 200 mg Q12HR ORAL 11/07/18 12:30 12/07/18 12:29 11/09/18 09:04 Lamotrigine (LaMICtal) 50 mg DAILY ORAL 11/08/18 09:00 12/08/18 08:59 11/09/18 09:05 Lorazepam (Ativan) 0.5 mg Q4H PRN ORAL For Anxiety 11/07/18 17:00 11/14/18 16:59 Losartan Potassium (Cozaar) 25 mg DAILY ORAL 11/08/18 09:00 12/08/18 08:59 11/09/18 09:05 Morphine Sulfate (Morphine Sulfate) 1 mg Q4H PRN IVP For Pain 11/04/18 14:15 11/11/18 14:14 11/05/18 05:50 Ondansetron HCl (Zofran) 4 mg Q6H PRN IVP Nausea & Vomiting 11/04/18 14:15 12/04/18 14:14 Sitagliptin Phosphate (Januvia) 50 mg DAILY ORAL 11/05/18 09:00 12/05/18 08:59 11/09/18 09:05 Tamsulosin HCl (Flomax) 0.4 mg BEDTIME ORAL 11/07/18 21:00 12/07/18 20:59 11/08/18 21:47 Raul Feng MD November 09, 2018 13:23
--- NOTE | 2018-11-09 14:06 | NUR ---
RD ASSESSMENT & RECOMMENDATIONS SEE CARE ACTIVITY FOR COMPLETE ASSESSMENT DAILY ESTIMATED NEEDS: Needs based on Advanced wound, wt loss/ 56kg 30-35 kcals/kg 0940-3081 total kcals 1.5-2.0 g protein/kg 84-112 g total protein 25-30 mL/kg 9554-0365 total fluid mLs NUTRITION DIAGNOSIS: * Increased kcal/prot needs R/T wound healing, wt loss as evidenced by sacral stage 4 wound, possible significant wt loss of 19lbs/ 13.4% in <1 month. * Swallowing difficulty R/T dysphagia w/ h/o brain tumor and CVA as evidenced by pt on [facility] soft texture, [employer], admitted w/ FTT, now s/p PEG placement. CURRENT DIET: ms chopped diet - oral grat CURRENT TF: Glucerna 1.5 @50ml ENTERAL NUTRITION RECOMMENDATIONS: Glucerna 1.5 @ 50ml/hr x 24 hrs to provide 1200ml, 1800kcal, 99g prot, 911ml free water * S/p PEG placement, as medically appropriate, initiate TF * Initiate Glucerna 1.5 @ 10ml/hr x 6 hrs, advance 10ml q 4-6 hrs as tolerated to goal rate. * HOB over 30 degrees/ water fluhs per MD ADDITIONAL RECOMMENDATIONS: * TXR PT TO BED WITH BEDSCALE, OBTAIN CALIBRATED WT * Check lytes daily w/ TF, replete as needed -PT AT HIGH RISK FOR REFEEDING SYNDROME * Wound healing: add Vit C 500mg BID and Ziyad 1pkt BID * Add accucheck w/ SSI once TF initiates -> Monitor BGs closely- h/o DM, on decadron, on TF * REC additional hypoglycemics- BG in 200's, 300's.
--- NOTE | 2018-11-09 16:16 | NUR ---
NURSE NOTES: Pt discharged in stable condition. Report given to River at [facility]; notified pt admission status FTT with G-tube placement on 11/04. Running Glucerna 1.5 continuous with water flush of 150 cc Q6. Pt arrived and is returning with stage 4 sacral wound; clean with saline, hydrogel - impregnate kerlex, pack wound, cover with Optifoam. Dressing cleaned and changed prior to departure, pt tolerated well. Photo of wound taken on discharge. Last BM on 11/09. Pt alert x 1, non-verbal, fall risk, aspiration precautions, seizure precautions. Pt had no belongings. Family notified via VM by RN. Case Management note states family was notified and agreed to discharge plan. Discharge packet with medication list sent with [facility]. No IV, arm band removed.
--- NOTE | 2018-11-10 12:54 | Discharge Summary ---
Discharge Summary Discharge Summary _ DATE OF ADMISSION: 11/04/2018 DATE OF DISCHARGE: 11/09/2018 DISCHARGED BY: Dr. Braun REASON FOR ADMISSION: 68 years old male with past medical history of CVA with right-sided hemiparesis , expressive aphasia, brain tumor, diabetes mellitus, hypertension, BPH, was sent from the alf facility for evaluation due to poor oral intake and weight loss. Patient previously failed swallow evaluation , but family did not agree to G- tube feeding. Apparently they changed their mind at this time , since patient was losing weight and was not eating. Upon evaluation patient was mildly tachycardic. Urinalysis revealed +2 protein, and was grossly consistent with UTI. No leukocytosis , hemoglobin 10.1 , hematocrit 30.3. Platelet count 176. Stable electrolytes . Glucose 115. Stable LFT. Albumin 2.1. EKG revealed sinus rhythm , no PVC no ectopy. BUN 19 , creatinine 0.5. Patient started on the IV fluids, pancultured and started on empiric antibiotic for UTI . Patient was admitted for further management. CONSULTANTS: pulmonary Dr. Feng GI specialist Dr. Burnett psychiatrist Dr. Rivas HOSPITAL COURSE: Patient admitted to medical surgical floor and started on the IV hydration. Supportive care provided. GI consult was requested. Patient subsequently undergone on 11/05 upper endoscopy with biopsy and PEG placement due to dysphagia and failure to thrive. Patient tolerated procedure well. During procedure also found gastric polyp, status post biopsy. Abdominal binder was applied. Head of bed was elevated at all times. G-tube site care and G-tube flushes provided. Patient later started on tube feeding according to telemetry registered nurse recommendation to meet patient's nutritional needs. Protein supplements implemented in plan of care as per telemetry registered nurse recommendation. Biopsy of gastric polyp revealed hyperplastic polyp. Hemoglobin and hematocrit were closely monitored with goal to keep hemoglobin above 7. Hemoglobin and hematocrit remained at baseline, prior to discharge hemoglobin 10.7, hematocrit 31.8. Strict aspiration precaution maintained. Patient also started on oral diet for oral gratification with strict aspiration precaution and one-to-one supervision. Blood sugar was managed with Januvia and sliding scale of insulin as needed. Seizure precaution maintained. Vimpat, Lamictal, and Depakote were continued. Follow-up with neurologist as outpatient. Decadron was continued. Blood pressure was managed with beta-radha and ARB and further optimized as needed. Digoxin continued. Urine culture revealed Pseudomonas aeruginosa. Patient initially was started on IV antibiotic and then changed to oral, since he had no IV access. Wound care provided as per surgeon recommendation. Decubitus ulcer did not appear to be infected. Pain management was addressed , and pain was controlled. Bowel regimen instituted. Renal parameters and electrolytes were closely monitored, electrolytes corrected as needed, and nephrotoxins were avoided. Patient clinically stabilized and was ready for transfer to alf facility for continuation of care. 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 DISCHARGE INSTRUCTIONS: Patient was discharged to the alf facility. Follow up with medical doctor at the facility. Sari Madrigal NP November 10, 2018 12:54
== END 2018-11-09 16:15 | DRG 391 ==
LOC: EDBD 11:12 → EDBEDREQ 12:05 → EMR 13:12 → 4E 13:22 → EDBEDREQ 13:40 → 4E 14:32
PROC: 0DB68ZX Excision of Stomach, Via Natural or Artificial Opening Endoscopic, Diagnostic (ICD-10-PCS; principal; 2018-11-05 13:10)
PROC: 0DH63UZ Insertion of Feeding Device into Stomach, Percutaneous Approach (ICD-10-PCS; principal; 2018-11-05 13:10)
DX: R13.10 Dysphagia, unspecified (principal); L89.154 Pressure ulcer of sacral region, stage 4; G92 Toxic encephalopathy; E43 Unspecified severe protein-calorie malnutrition; C71.9 Malignant neoplasm of brain, unspecified; E87.1 Hypo-osmolality and hyponatremia; N39.0 Urinary tract infection, site not specified; I69.351 Hemiplegia and hemiparesis following cerebral infarction affecting right dominant side; I42.9 Cardiomyopathy, unspecified; Z68.1 Body mass index [BMI] 19.9 or less, adult; I69.320 Aphasia following cerebral infarction; Z68.25 Body mass index [BMI] 25.0-25.9, adult; E86.0 Dehydration; Z86.73 Personal history of transient ischemic attack (TIA), and cerebral infarction without residual deficits; D64.9 Anemia, unspecified; E11.9 Type 2 diabetes mellitus without complications; I10 Essential (primary) hypertension; I25.10 Atherosclerotic heart disease of native coronary artery without angina pectoris; B96.5 Pseudomonas (aeruginosa) (mallei) (pseudomallei) as the cause of diseases classified elsewhere; L89.159 Pressure ulcer of sacral region, unspecified stage; R62.7 Adult failure to thrive; Z79.01 Long term (current) use of anticoagulants; G40.909 Epilepsy, unspecified, not intractable, without status epilepticus; Z79.4 Long term (current) use of insulin; K31.7 Polyp of stomach and duodenum
CPT/HCPCS: 36415; 80048; 80053; 81003; 82962; 83690; 84100; 85007; 85025; 85610; 85730; 87081; 87086; 87181; 94003; 94150; 96361; 96374; 99285; J1815

== ENCOUNTER 2018-11-10 13:58 | Inpatient (IN) | payer MEDICARE, OTHER ==
[~2018-11-10] VITALS: Ht 167.6 cm; Wt 68.1 kg
[~2018-11-10 13:58] MED LIST changes: +DEXAMETHASONE4 MG PO; +GLUCOPHAGE500 MG ORAL; +LOSARTAN POTASS25 MG ORAL; +MULTIVITAMINS1 EAC8 ORAL; +VITAMIN C500 M1 ORAL; +VITAMIN D250000 UNI1 ORAL; +ZINC SULFATE220 M1 ORAL
--- NOTE | 2018-11-10 14:13 | NUR ---
CALLED [facility] TO GET THE CODE STATUS OF PT. PER CHIDI MOSLEY. PT. IS FULL CODE AND WILL FAX US THE COPY POLST
[2018-11-10] MEDS ORDERED: Sodium Chloride 2,200 ML IVLG ONE (14:15)
[2018-11-10] MEDS ORDERED: D5 1/2NS 1,000 ML IV SCH (14:22)
[2018-11-10] MEDS ORDERED: LORazepam Inj 2mg/ml 1ml IV PRN (14:30)
[2018-11-10] MEDS ORDERED: Morphine Sulfate 2mg/ml Inj(IV/IM USE ONLY) IVP PRN (14:30)
--- NOTE | 2018-11-10 14:30 | NUR ---
ED Nurse Note:pt. was BIBA from SNF with ALOC and apnea hypotension, pt. is lethargic on arrival, BP 71/47, given IV fluids and blood with cultures and urine sent to labs
--- NOTE | 2018-11-10 14:35 | NUR ---
ED Nurse Note:pt. has sacral decube with dry dressing
[2018-11-10 14:47] LABS: APPEARANCE,URINE CLEAR; BILIRUBIN, URINE NEGATIVE (NEGATIVE); GLUCOSE, URINE (UA) 4+ (NEGATIVE); KETONES,URINE 1+ (NEGATIVE); LEUKOCYTE ESTERASE ,URINE 3+ (NEGATIVE); NITRITE,URINE NEGATIVE (NEGATIVE); PH,URINE 5 (4.5-8.0); PROTEIN,URINE 3+ (NEGATIVE); UROBILINOGEN,URINE 4 MG/DL (0.0-1.0)
--- NOTE | 2018-11-10 14:50 | Emergency Room Report ---
History of Present Illness General Chief Complaint: Altered Level of Consciousness Source: Medical Record, EMS Present Illness HPI 68-year-old male presents ED for evaluation. [facility] Noted to be altered more than baseline since this morning. Patient was discharged yesterday from [facility]. On arrival patient is nonverbal. Unable to provide any additional history at this time. Per EMS patient was hypoxic and was placed on oxygen. Was also noted be hypotensive. No reported fevers or chills. No other aggravating relieving factors. No other associated symptoms Allergies: Coded Allergies: No Known Allergies (Unverified , 09/27/18) Patient History Past Medical History: DM, dementia, other - brain cancer Pertinent Family History: none Social History: Denies: smoking, alcohol use, drug use Immunizations: UTD Reviewed Nursing Documentation: PMH: Agreed; PSxH: Agreed Nursing Documentation-PMH Past Medical History: No History, Except For Hx Cardiac Problems: Yes - CAD, hyperlipidemia Hx Hypertension: Yes Hx Diabetes: Yes Hx Cancer: Yes - brain cancer Hx Gastrointestinal Problems: Yes - GERD, pancreatits Hx Neurological Problems: Yes - AMS, cerebral edema 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, expressive aphasia Hx Seizures: Yes Review of Systems All Other Systems: limited Physical Exam Vital Signs Date Time Temp Pulse Resp B/P (MAP) Pulse Ox O2 Delivery O2 Flow Rate FiO2 11/10/18 13:53 98.2 110 16 97 Non-Rebreather 15.0 Sp02 EP Interpretation: reviewed, abnormal General Appearance: cachetic, lethargic Head: normocephalic, atraumatic Eyes: bilateral eye normal inspection, bilateral eye PERRL ENT: hearing grossly normal, normal pharynx, no angioedema, normal voice Neck: full range of motion, supple/symm/no masses Respiratory: chest non-tender, lungs clear, normal breath sounds, speaking full sentences Cardiovascular #1: regular rate, rhythm, no edema Cardiovascular #2: 2+ carotid (R), 2+ carotid (L), 2+ radial (R), 2+ radial (L) , 2+ dorsalis pedis (R), 2+ dorsalis pedis (L) Gastrointestinal: normal bowel sounds, non tender, soft, non-distended, no guarding, no rebound Rectal: deferred Genitourinary: normal inspection, no CVA tenderness Musculoskeletal: back normal Neurologic: other - nonverbal Psychiatric: other - nonverbal Reflexes: 3+ bicep (R), 3+ bicep (L), 3+ tricep (R), 3+ tricep (L), 3+ knee (R) , 3+ knee (L) Skin: normal color, no rash, warm/dry, well hydrated Lymphatic: no adenopathy Procedures Critical Care Time Critical Care Time i. I feel this is a highly complex case requiring extensive working including EKG/Rhythm strip, Xray/CT/US, Blood/urine lab work, repeat exams while in ED, and administration of strong opiates/narcotics for pain control, admission to hospital or close patient follow up. Total time: 60 min bedside evaluation and treatment excludes procedures (EKG). Reason for critical care: hypotensive, sepsis, elevated troponin Possible complications: hypotension, hypertension, IL, shock, arrhythmias, metabolic acidosis, end organ damage, respiratory failure. Interventions: labs, IVFS, EKG, CXR, central line, broad spectrum abx. discussion with [facility] Course: Patient presenting with hypoxia, hypotension. History of brain cancer. Labs show significant leukopenia, potassium 5.7 troponin 0.297, BNP greater than 9000. Chest x-ray shows no acute infiltrate. Central line placed by surgery. broad spectrum abx given. Discussed with [facility] for possible transfer for higher level of care. No beds available patient will be kept here Consultations: nursing staff, EMS, family Performed by: Dr Rocha Tolerated well condition = critical j. because of unstable vital signs this patient had a condition that could potentially threaten life or limb. I feel this is a critical patient who required my full attention while patient was considered critical. Total Critical Care Time excluding procedures was greater than 60 minutes Medical Decision Making Diagnostic Impression: Primary Impression: Hypotension Qualified Codes: I95.9 - Hypotension, unspecified Additional Impressions: Elevated troponin CHF (congestive heart failure) Qualified Codes: I50.9 - Heart failure, unspecified UTI (urinary tract infection) Qualified Codes: N39.0 - Urinary tract infection, site not specified Acute encephalopathy Sepsis Qualified Codes: A41.9 - Sepsis, unspecified organism Brain tumor ER Course Hospital Course 68-year-old male comes [facility] with hypoxia, [facility]ensive [facility]. History of brain tumor. Discharged from here yesterday Differential diagnoses include: Pneumonia, UTI, sepsis, dehydration, IL/ unstable angina Clinical course Patient placed on stretcher. On monitoring coordinator with hypotension, hypoxia. Oxygen started. abg ordered. After initial history and physical, I ordered labs , IV fluids, EKG, chest x-ray, blood cultures, UA. Labs - significant leukopenia, hb/hct stable, K 5.7, Trop 0.297, lactic > 3, BNP > 9000, UA + bacteria EKG - NSR, no acute ischemic changes interpreted by va Dr Rivas at bedside - placed subclavian central line CXR - no acute process. central line in place Abx given. Given 30 mL per Kg bolus with blood pressure improved Discussed case with [facility] for higher level of care and continuity of care because patient requires oncology service. States that beds are not available at this time. Case discussed with Dr Braun and they agreed to admit patient to their service for further care and support I feel this is a highly complex case requiring extensive working including EKG/ Rhythm strip, Xray/CT/US, Blood/urine lab work, repeat exams while in ED, and administration of strong opiates/narcotics for pain control, admission to hospital or close patient follow up. Diagnosis - hypotension, elevated troponin, CHF, UTI, acute encpehlopathy, sepsis, brain tumor Patient admitted to SDU in critical condition Labs Test 11/10/18 14:30 11/10/18 14:35 11/10/18 14:40 11/10/18 15:40 Urine Color Yellow Urine Appearance Clear Urine pH 5 (4.5-8.0) Urine Specific [place] 1.010 (1.005-1.035) Urine Protein 3+ (NEGATIVE) Urine Glucose (UA) 4+ (NEGATIVE) Urine Ketones 1+ (NEGATIVE) Urine Blood 5+ (NEGATIVE) Urine Nitrite Negative (NEGATIVE) Urine Bilirubin Negative (NEGATIVE) Urine Urobilinogen 4 MG/DL (0.0-1.0) Urine Leukocyte Esterase 3+ (NEGATIVE) Urine RBC 10-15 /HPF (0 - 0) Urine WBC 10-15 /HPF (0 - 0) Urine Squamous Epithelial Cells Occasional /LPF Urine Bacteria Few /HPF (NONE) Arterial Blood pH 7.515 (7.350-7.450) Arterial Blood Partial Pressure CO2 33.8 mmHg (35.0-45.0) Arterial Blood Partial Pressure O2 78.9 mmHg (75.0-100.0) Arterial Blood HCO3 26.7 mmol/L (22.0-26.0) Arterial Blood Oxygen Saturation 95.6 % (95-100) Arterial Blood Base Excess 3.8 (-2-2) Martell Test Positive White Blood Count 1.4 K/UL (4.8-10.8) Red Blood Count 3.59 M/UL (4.70-6.10) Hemoglobin 11.1 G/DL (14.2-18.0) Hematocrit 33.2 % (42.0-52.0) Mean Corpuscular Volume 93 FL (80-99) Mean Corpuscular Hemoglobin 30.9 PG (27.0-31.0) Mean Corpuscular Hemoglobin Concent 33.3 G/DL (32.0-36.0) Red Cell Distribution Width 14.6 % (11.6-14.8) Platelet Count 191 K/UL (150-450) Mean Platelet Volume 7.2 FL (6.5-10.1) Neutrophils (%) (Auto) % (45.0-75.0) Lymphocytes (%) (Auto) % (20.0-45.0) Monocytes (%) (Auto) % (1.0-10.0) Eosinophils (%) (Auto) % (0.0-3.0) Basophils (%) (Auto) % (0.0-2.0) Differential Total Cells Counted 50 Neutrophils % (Manual) 48 % (45-75) Lymphocytes % (Manual) 20 % (20-45) Monocytes % (Manual) 6 % (1-10) Eosinophils % (Manual) 0 % (0-3) Basophils % (Manual) 0 % (0-2) Band Neutrophils 26 % (0-8) Nucleated Red Blood Cells 5 /100 WBC Platelet Estimate Adequate Platelet Morphology Normal Polychromasia 1+ Anisocytosis 1+ Sodium Level 131 MMOL/L (136-145) Potassium Level 5.7 MMOL/L (3.5-5.1) Chloride Level 98 MMOL/L (98-107) Carbon Dioxide Level 31 MMOL/L (21-32) Anion Gap 2 mmol/L (5-15) Blood Urea Nitrogen 35 mg/dL (7-18) Creatinine 0.9 MG/DL (0.55-1.30) Estimat Glomerular Filtration Rate > 60 mL/min (>60) Glucose Level 271 MG/DL (74-106) Lactic Acid Level 3.10 mmol/L (0.4-2.0) 2.30 mmol/L (0.66-2.22) Calcium Level 8.9 MG/DL (8.5-10.1) Total Bilirubin 0.6 MG/DL (0.2-1.0) Aspartate Amino Transf (AST/SGOT) 34 U/L (15-37) Alanine Aminotransferase (ALT/SGPT) 24 U/L (12-78) Alkaline Phosphatase 95 U/L (46-116) Ammonia 38 umol/L (11-32) Total Creatine Kinase 56 U/L (26-308) Creatine Kinase MB 3.0 NG/ML (0.0-3.6) Creatine Kinase MB Relative Index 5.3 Troponin I 0.297 ng/mL (0.000-0.056) Pro-B-Type Natriuretic Peptide 9398 pg/mL (0-125) Total Protein 5.9 G/DL (6.4-8.2) Albumin 1.8 G/DL (3.4-5.0) Globulin 4.1 g/dL Albumin/Globulin Ratio 0.4 (1.0-2.7) EKG Diagnostic Results Rate: tachycardiac Rhythm: NSR ST Segments: no acute changes ASA given to the pt in ED: No Rhythm Strip Diag. Results EP Interpretation: yes Rhythm: NSR, no PVC's, no ectopy Chest X-Ray Diagnostic Results Chest X-Ray Diagnostic Results : Chest X-Ray Ordered: Yes # of Views/Limited/Complete: 1 View Indication: Other EP Interpretation: Yes Interpretation: no consolidation, no effusion, no pneumothorax, no acute cardiopulmonary disease, other - subclavian line in place Impression: No acute disease Electronically Signed by: Electronically signed by Romeo Rocha MD Last Vital Signs Date Time Temp Pulse Resp B/P (MAP) Pulse Ox O2 Delivery O2 Flow Rate FiO2 11/10/18 14:39 110 16 Non-Rebreather 15.0 11/10/18 13:53 98.2 97 Status: improved Disposition: ADMITTED INPATIENT Condition: Critical Referrals: Camacho Braun MD (PCP) Romeo Rocha MD November 10, 2018 14:50
[2018-11-10 14:55] LABS: COLOR,URINE YELLOW
--- NOTE | 2018-11-10 15:00 | NUR ---
ED Nurse Note:left subclavian central line was placed by Dr. Cardoza
[2018-11-10 15:12] LABS: HEMATOCRIT 33.2 % (42.0-52.0); HEMOGLOBIN 11.1 G/DL (14.2-18.0); MEAN CORPUSCULAR VOLUME 93 FL (80-99); PLATELET COUNT 191 K/UL (150-450); RED BLOOD COUNT 3.59 M/UL (4.70-6.10); RED CELL DISTRIBUTION WIDTH 14.6 % (11.6-14.8)
[2018-11-10 15:16] LABS: WHITE BLOOD COUNT 1.4 K/UL (4.8-10.8)
[2018-11-10 15:20] VITALS: BP 117/64
[2018-11-10 15:26] LABS: AMMONIA 38 umol/L (11-32); ANION GAP 2 mmol/L (5-15); BLOOD UREA NITROGEN 35 mg/dL (7-18); CALCIUM 8.9 MG/DL (8.5-10.1); CARBON DIOXIDE 31 MMOL/L (21-32); CHLORIDE 98 MMOL/L (98-107); CREATININE 0.9 MG/DL (0.55-1.30); POTASSIUM 5.7 MMOL/L (3.5-5.1); SODIUM 131 MMOL/L (136-145)
--- NOTE | 2018-11-10 15:28 | Operative Note - PDOC ---
Operative Note Operative Note Date of Operation/Procedure: November 10, 2018 Pre-op Diagnosis: hypotension, tachycardia, poor venous access Procedure: left subclavian central venous catheter insertion Post-op Diagnosis: same as pre-op Surgeon: charly Anesthesia: local Specimen: none Complications: none Condition: unstable Estimated Blood Loss: minimal Drains: none Implant(s) used?: No Indications for Procedure 68M presented to ED for evaluation and was noted to be hypotensive, tachycardic , unresponsive with abnormal labs. poor peripheral access and multiple attempts to obtain peripheral venous line unsuccessful. surgery called to assist with central venous line placement. patient unresponsive, patient full code, procedure medically necessary and emergency. Description of Procedure patient made comfortable at bedside in ED in supine position. placed in Trendelenburg. systolic BP in the 60's and HR in the 110's. left chest wall prepped and draped in standard surgical fashion. 1% lido infiltrated. using finder needle the left subclavian vein cannulated with dark venous flow. guide wire placed and needle removed. small skin incision made and dilator used. triple lumen catheter placed and guidewire discarded. all ports flushed and aspirated. line sutured in place and dressings applied. CXR with line in good position and no complication. okay to use line. dressings daily and prn. okay for pressors Harry Rivas November 10, 2018 15:28
[2018-11-10 15:41] LABS: ALANINE AMINOTRANSFERASE 24 U/L (12-78); ALBUMIN 1.8 G/DL (3.4-5.0); ALBUMIN/GLOBULIN RATIO 0.4 (1.0-2.7); ALKALINE PHOSPHATASE 95 U/L (46-116); ASPARTATE AMINO TRANSFERASE 34 U/L (15-37); BILIRUBIN,TOTAL 0.6 MG/DL (0.2-1.0); CREATINE KINASE 56 U/L (26-308)
--- NOTE | 2018-11-10 15:44 | NUR ---
ED Nurse Note:BP 117/64, sent lactic reflax to labs
--- NOTE | 2018-11-10 15:49 | Diagnostic Imaging Report ---
Indication: Dyspnea Comparison: 10/12/2018 A single view chest radiograph was obtained. Findings: Development of mild atelectasis in the right midlung noted. Borderline cardiomegaly is present. A left subclavian stent is present in good position. There is no pneumothorax. IMPRESSION: Subclavian line in good position. Mild right basal atelectasis
[2018-11-10] MEDS ORDERED: Piperacillin/Tazobactam 3.375 GM in NS 110 ML IVPB ONE (16:15)
[2018-11-10] MEDS ORDERED: NovoLOG Insulin Flexpen SUBQ SCH (16:30)
[2018-11-10 16:43] VITALS: BP 126/62
--- NOTE | 2018-11-10 17:13 | NUR ---
ED Nurse Note: REPORT GIVEN TO CHIDI BRIDGES
[2018-11-10 17:30] VITALS: BP 125/93
--- NOTE | 2018-11-10 17:30 | NUR ---
NURSE NOTES: Patient arrived to unit via gurney accompanied with RN. Report received from CHIDI Valenzuela from ER. Patient is open eyes spontaneously but non-verbal. No s/s of pain at this time. Vitals are stable. No belongings noted. personnel monitor applied to the patient. Skin assessment done and noted with sacral area pressure ulcer. Wound photo uploaded. GT site and F/C intact and patent. TLC noted on left subclavian and IV site on right hand intact and patent. Bed in lowest position. Call light within reach. Will continue to monitor.
--- NOTE | 2018-11-10 17:32 | NUR ---
ED Nurse Note: TRANSFERREDPT. TO SDU WITH TEA BAG PACKER OM. ENDORSED PT. CARE TO CHIDI BRIDGES
--- NOTE | 2018-11-10 17:42 | History & Physical ---
History and Physical History & Physicial Dictated for Int Med-Dr Braun no. [id number]. Jesus Kidd MD November 10, 2018 17:42
[2018-11-10] MEDS: NovoLOG Insulin Flexpen SUBQ SCH ×2 (18:49→23:58)
--- NOTE | 2018-11-10 19:20 | NUR ---
HAND-OFF: Report given to CHIDI Bradford. Stable condition.
--- NOTE | 2018-11-10 19:21 | NUR ---
NURSE NOTES: Received patient from Heather MURILLO. Patient is awake in bed and nonverbal with no signs of acute distress. Bed is at its lowest position, call light in reach and X3 bed rails up.
[2018-11-10 20:00] VITALS: BP 108/70
[2018-11-10] MEDS ORDERED: Dyna-Hex 2% Top Sol 2oz TOPIC SCH (20:00)
[2018-11-10] MEDS ORDERED: Tamsulosin 0.4mg cap ORAL SCH (21:00)
--- NOTE | 2018-11-10 21:30 | History and Physical Report ---
DATE OF ADMISSION: 11/10/2018 CHIEF COMPLAINT: The patient is a 68-year-old male, who presents with a chief complaint of altered mental status. HISTORY OF PRESENT ILLNESS: The patient was admitted to [facility] from 09/04/2018 to 11/09/2018. The patient is status post PEG placement on 11/05/2018 for failure to thrive. 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 The patient is a resident of [facility]. According to staff at [facility], the patient was more altered than usual after arriving on 11/09/2018. The patient was sent to [facility] for evaluation. The patient is admitted for altered mental status and hypotension. REVIEW OF SYSTEMS: Unable to assess secondary to the patient's mental status. 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 2. Seizure disorder. 3. Diabetes type 2. 4. History of cerebrovascular accident. 5. Right hemiparesis. 6. Hypertension. 7. Coronary artery disease. 8. Expressive aphasia. PAST SURGICAL HISTORY: Significant for, 1. Craniotomy secondary to brain tumor as above. 2. Appendectomy. 3. Tonsillectomy. 4. Debridement of sacral decubitus ulcer on 10/13/2018 at [facility]. 5. PEG placement on 11/05/2018 at [facility]. CURRENT MEDICATIONS: 1. Apixaban 5 mg p.o. twice daily. 2. Atorvastatin 80 mg p.o. at bedtime. 3. Carvedilol 25 mg p.o. twice daily. 4. Dexamethasone 4 mg p.o. twice daily. 5. Depakote 500 mg p.o. twice daily. 6. Finasteride 5 mg p.o. daily. 7. Humalog sliding scale. 8. Vimpat 200 mg p.o. twice daily. 9. Lamictal 50 mg p.o. daily. 10. Losartan 25 mg p.o. daily. 11. Glucophage 1000 mg p.o. twice daily. 12. Fycompa 4 mg p.o. daily. 13. Seroquel 25 mg p.o. twice daily. 14. Zantac 150 mg p.o. daily. 15. Januvia 50 mg p.o. daily. 16. Flomax 0.4 mg p.o. at bedtime. 17. Temozolomide 5 mg p.o. daily. 18. Zinc sulfate 220 mg p.o. daily. ALLERGIES: No known drug allergies. SOCIAL HISTORY: The patient is and has 2 grown children. The patient is currently a resident of [facility]. The patient denies tobacco or alcohol use. PHYSICAL EXAMINATION: VITAL SIGNS: Temperature 98.2, respirations 16, pulse 110, and blood pressure 117/64. GENERAL: The patient is a well-developed and well-nourished male, in no apparent distress. HEENT: Eyes, pupils are equal and responsive to light and accommodation. Extraocular movements are intact. NECK: Supple without lymphadenopathy. CHEST: Lungs are clear to auscultation bilaterally without wheezes or rales. CARDIOVASCULAR: Regular rhythm and rate. S1 and S2 are normal without murmurs, rubs, or gallops. ABDOMEN: Soft, nontender, and nondistended. Positive bowel sounds. No evidence of hepatosplenomegaly. Currently, no rebound or guarding noted. EXTREMITIES: Negative for clubbing, cyanosis, or edema. RECTAL/GENITAL: Not performed. NEUROLOGIC: Unable to assess. LABORATORY STUDIES: WBC 1.4, hemoglobin 11.1, hematocrit 33.2, and platelets 191,000. Sodium 131, potassium 5.7, chloride 98, CO2 31, BUN 35, creatinine 0.9, and glucose 271. Troponin 0.297. BNP elevated at 9398. ASSESSMENT: This is a 68-year-old male. 1. Altered mental status. 2. Respiratory failure. 3. Hypertension. 4. Dysphagia. 5. Failure to thrive. 6. Encephalopathy. 7. Brain cancer. 8. Seizure disorder. 9. Diabetes type 2. 10. Cerebrovascular disease. 11. Right hemiparesis. 12. Hypertension. 13. Coronary artery disease. 14. Expressive aphasia. TREATMENT: 1. Respiratory failure. Pulmonary consultation has been obtained with Dr. Raul Feng. The patient is currently on a non-rebreather mask. We will follow recommendations of Pulmonary. 2. Altered mental status is probably secondary to hypoxia as above. 3. Dysphagia. The patient is status post PEG placement on 11/05/2018. 4. Failure to thrive. 5. Encephalopathy. 6. Brain cancer. 7. Seizure disorder. Continue Depakote and Vimpat as above. 8. Diabetes type 2. Continue Humalog sliding scale as above. 9. Cerebrovascular disease. 10. Right hemiparesis. 11. Hypertension. 12. Coronary artery disease. 13. Expressive aphasia. Jesus Kidd M.D. DR: ROXY JOB#: [id number] CC:
[2018-11-10] MEDS: Heparin 5000 units/ml inj SUBQ SCH (21:40)
[2018-11-11] VITALS (24 sets, daily range): BP systolic 74–182; BP diastolic 45–84
--- NOTE | 2018-11-11 00:30 | NUR ---
NURSE NOTES: [id number]/46 levo drip .30 mcg/min tube feeding off on flat on bed
[2018-11-11 05:13] LABS: HEMATOCRIT 27.1 % (42.0-52.0); HEMOGLOBIN 9.3 G/DL (14.2-18.0); MEAN CORPUSCULAR VOLUME 92 FL (80-99); PLATELET COUNT 140 K/UL (150-450); RED BLOOD COUNT 2.96 M/UL (4.70-6.10); RED CELL DISTRIBUTION WIDTH 14.5 % (11.6-14.8)
[2018-11-11 05:53] LABS: ALANINE AMINOTRANSFERASE 23 U/L (12-78); ALBUMIN 1.6 G/DL (3.4-5.0); ALBUMIN/GLOBULIN RATIO 0.5 (1.0-2.7); ALKALINE PHOSPHATASE 72 U/L (46-116); ANION GAP 1 mmol/L (5-15); ASPARTATE AMINO TRANSFERASE 25 U/L (15-37); BILIRUBIN,TOTAL 0.5 MG/DL (0.2-1.0); BLOOD UREA NITROGEN 21 mg/dL (7-18); CALCIUM 8.3 MG/DL (8.5-10.1); CARBON DIOXIDE 36 MMOL/L (21-32); CHLORIDE 99 MMOL/L (98-107); CREATININE 0.6 MG/DL (0.55-1.30); POTASSIUM 3.6 MMOL/L (3.5-5.1); SODIUM 136 MMOL/L (136-145)
[2018-11-11] MEDS: NovoLOG Insulin Flexpen SUBQ SCH ×3 (06:01→18:00)
--- NOTE | 2018-11-11 07:22 | NUR ---
HAND-OFF: Report given to Heather MURILLO.
--- NOTE | 2018-11-11 07:45 | NUR ---
NURSE NOTES: received patient from CHIDI Bradford. patient is awake and A/O X1, nonverbal but responds to name. no s/s of pain at this time. Patient is on 2 liters of oxygen via nasal cannula. G-tube is patent and intact with ongoing feeding. HOB elevated, no residual noted. F/C is patent and draining well. TLC is patent and intact. no signs or symptoms of distress noted. bed in lowest position and locked, padded siderails up X3, call light within reach. will continue to monitor.
[2018-11-11] MEDS ORDERED: Vancomycin 750mg/NS 275ml IVPB SCH ×2 (08:00)
[2018-11-11] MEDS: Heparin 5000 units/ml inj SUBQ SCH ×2 (08:59→22:00)
[2018-11-11] MEDS ORDERED: sitaGLIPtin 50mg tab ORAL SCH (09:00)
--- NOTE | 2018-11-11 09:01 | NUR ---
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 HYPOTENSION . ELEVATED TROPONIN I VS: BP 117/64, P 110, T 98.2, RR 16, SpO2 97 on NON-REBREATHER 15.0L O2 WBC 1.4, RBC 3.59, H&H 11.1/33.2, Na 131, K 5.7, BUN 35, TROPONIN I 0.297 CXR:Mild right basal atelectasis IS:NS x1L IV ZOSYN 110ml IVPB D5/NS x1L IV ADMITTED TO SDU DCP: [facility]
--- NOTE | 2018-11-11 10:43 | Consultation ---
History of Present Illness General Date patient seen: November 11, 2018 Chief Complaint: Altered Level of Consciousness Present Illness HPI 68 years old male with past medical history of CVA with right-sided hemiparesis and expressive aphasia, brain tumor, diabetes mellitus, hypertension, BPH, recent PEG placement, with chronic seizure, off seizure meds as requested by family members, she was sent from the nursing home facility for altered mental status and possible seizures. Patient was unable to provide any information on admission. He is still lethargic. Allergies: Coded Allergies: No Known Allergies (Unverified , 09/27/18) Medication History Scheduled Apixaban (Eliquis), 5 MG PO BID, (Reported) Atorvastatin (Lipitor), 80 MG ORAL BEDTIME, (Reported) Carvedilol (Coreg), 25 MG ORAL EVERY 12 HOURS Dexamethasone* (Dexamethasone*), 4 MG PO BID, (Reported) Divalproex Sodium (Divalproex Sodium), 500 MG PO BID, (Reported) Ergocalciferol (Vitamin D2)* (Vitamin D*), 50,000 UNIT ORAL ONCE A WEEK, ( Reported) Finasteride (Finasteride), 5 MG ORAL DAILY@2100 Lacosamide (Vimpat), 200 MG PO BID, (Reported) Lamotrigine* (Lamictal*), 50 MG ORAL DAILY Losartan Potassium* (Losartan Potassium*), 25 MG ORAL DAILY, (Reported) Metformin Hcl (Glucophage), 1,000 MG ORAL BID, (Reported) Perampanel (Fycompa), 4 MG PO DAILY, (Reported) Quetiapine Fumarate* (Seroquel*), 25 MG ORAL Q12HR Ranitidine Hcl* (Zantac*), 150 MG ORAL DAILY, (Reported) Sitagliptin (Januvia), 50 MG ORAL DAILY Tamsulosin HCl (Flomax), 0.4 MG ORAL BEDTIME Temozolomide (Temozolomide), 5 MG PO DAILY, (Reported) Zinc Sulfate (Zinc Sulfate*), 220 MG ORAL DAILY, (Reported) Scheduled PRN Acetaminophen* (Acetaminophen 325MG Tablet*), 650 MG ORAL Q6H PRN for For Pain, (Reported) Miscellaneous Medications Insulin Lispro (Humalog), 0 SUBQ, (Reported) Discontinued Medications Ascorbic Acid* (Vitamin C*), 500 MG ORAL DAILY, (Reported) Discontinued Reason: Pt had allergic rxn Carvedilol (Coreg), 12.5 MG ORAL EVERY 12 HOURS, (Reported) Discontinued Reason: Therapy completed Cholecalciferol (Vitamin D3)* (Vitamin D*), 50,000 UNITS ORAL QWEEK, (Reported) Discontinued Reason: Therapy completed Dexamethasone (Dexamethasone), 4 MG ORAL DAILY Discontinued Reason: Therapy completed Dexamethasone* (Decadron*), 4 MG PO BID, (Reported) Discontinued Reason: Prescription changed Digoxin* (Digoxin*), 0.25 MG ORAL DAILY Discontinued Reason: Therapy completed Divalproex Sodium (Depakote), 500 MG PO BID, (Reported) Discontinued Reason: Therapy completed Divalproex Sodium (Depakote), 1,500 MG PO, (Reported) Discontinued Reason: Therapy completed Docusate Sodium (Docusate Sodium), 100 MG ORAL DAILY, (Reported) Discontinued Reason: Therapy completed Insulin Aspart (Novolog Flexpen), 0 UNITS SUBQ EVERY 6 HOURS Discontinued Reason: Therapy completed Insulin Detemir (Levemir Flexpen), 6 UNITS SUBQ DAILY Discontinued Reason: Therapy completed Losartan Potassium (Losartan Potassium), 25 MG ORAL DAILY, (Reported) Discontinued Reason: Prescription changed Metformin Hcl* (Glucophage*), 100 MG ORAL TWICE A DAY, (Reported) Discontinued Reason: Therapy completed Multivitamin With Minerals (Multivitamins With Minerals*), 1 TAB ORAL DAILY, ( Reported) Discontinued Reason: Therapy completed Polyethylene Glycol 3350* (Miralax*), 17 GM ORAL DAILY, (Reported) Discontinued Reason: Therapy completed Polyethylene Glycol 3350* (Miralax*), 17 GM ORAL DAILY, (Reported) Discontinued Reason: Therapy completed Vancomycin Hcl (Vancomycin Hcl), 125 MG PO DAILY, (Reported) Discontinued Reason: Therapy completed Vancomycin Hcl (Vancomycin Hcl), 125 MG IV DAILY, (Reported) Discontinued Reason: Therapy completed Patient History Healthcare decision maker Resuscitation status Full Code Advanced Directive on File Yes Past Medical/Surgical History Past Medical/Surgical History: (1) Diabetes mellitus (2) Hypertension (3) Dysphagia (4) Oligodendroglioma (5) Brain tumor (6) Sacral decubitus ulcer (7) History of CVA (cerebrovascular accident) (8) Severe malnutrition Review of Systems All Other Systems: negative except mentioned in HPI Physical Exam General Appearance: cachetic, thin Lines, tubes and drains: peripheral HEENT: normocephalic, anicteric Neck: non-tender, normal alignment Respiratory/Chest: chest wall non-tender, lungs clear Breasts: no masses Cardiovascular/Chest: normal peripheral pulses Abdomen: normal bowel sounds, non tender Genitourinary/Rectal: normal genital exam, normal rectal exam Extremities: normal range of motion, non-tender Skin Exam: normal pigmentation 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 Last 24 Hour Vital Signs Date Time Temp Pulse Resp B/P (MAP) Pulse Ox O2 Delivery O2 Flow Rate FiO2 11/11/18 08:00 120 11/11/18 08:00 2.0 11/11/18 08:00 97.5 113 26 96/56 (69) 95 11/11/18 08:00 Nasal Cannula 2.0 11/11/18 05:16 2.0 11/11/18 04:00 98.7 105 22 106/60 (75) 100 11/11/18 04:00 Nasal Cannula 2.0 11/11/18 03:24 102 11/11/18 00:00 98.4 110 21 106/59 (75) 100 11/11/18 00:00 Nasal Cannula 2.0 11/10/18 23:39 110 11/10/18 20:00 Nasal Cannula 2.0 11/10/18 20:00 4.0 11/10/18 20:00 97.5 105 20 108/70 (83) 100 11/10/18 19:04 105 11/10/18 18:25 Simple Mask 4.0 11/10/18 17:30 97.9 109 24 125/93 (104) 100 11/10/18 17:17 98.2 115 18 126/62 100 Simple Mask 6.0 11/10/18 16:43 98.2 115 18 126/62 100 Simple Mask 6.0 11/10/18 15:20 98.2 108 18 117/64 100 Simple Mask 6.0 11/10/18 15:18 107 18 Simple Mask 6.0 11/10/18 14:45 98.2 110 16 94 Simple Mask 6.0 11/10/18 13:53 98.2 110 16 97 Non-Rebreather 15.0 Intake and Output 11/10/18 11/11/18 19:00 07:00 Intake Total 210 ml 60 ml Output Total 550 ml 850 ml Balance -340 ml -790 ml Intake Free Water 100 ml IV Total 50 ml Tube Feeding 60 ml 60 ml Output Urine Total 550 ml 850 ml # Bowel Movements 2 1 Laboratory Tests Test 11/10/18 14:30 11/10/18 14:35 11/10/18 14:40 11/10/18 15:40 Urine Color Yellow Urine Appearance Clear Urine pH 5 (4.5-8.0) Urine Specific [place] 1.010 (1.005-1.035) Urine Protein 3+ (NEGATIVE) H Urine Glucose (UA) 4+ (NEGATIVE) H Urine Ketones 1+ (NEGATIVE) H Urine Blood 5+ (NEGATIVE) H Urine Nitrite Negative (NEGATIVE) Urine Bilirubin Negative (NEGATIVE) Urine Urobilinogen 4 MG/DL (0.0-1.0) H Urine Leukocyte Esterase 3+ (NEGATIVE) H Urine RBC 10-15 /HPF (0 - 0) H Urine WBC 10-15 /HPF (0 - 0) H Urine Squamous Epithelial Cells Occasional /LPF Urine Bacteria Few /HPF (NONE) Arterial Blood pH 7.515 (7.350-7.450) Arterial Blood Partial Pressure CO2 33.8 mmHg (35.0-45.0) L Arterial Blood Partial Pressure O2 78.9 mmHg (75.0-100.0) Arterial Blood HCO3 26.7 mmol/L (22.0-26.0) H Arterial Blood Oxygen Saturation 95.6 % (95-100) Arterial Blood Base Excess 3.8 (-2-2) H Martell Test Positive White Blood Count 1.4 K/UL (4.8-10.8) #*L Red Blood Count 3.59 M/UL (4.70-6.10) L Hemoglobin 11.1 G/DL (14.2-18.0) L Hematocrit 33.2 % (42.0-52.0) L Mean Corpuscular Volume 93 FL (80-99) Mean Corpuscular Hemoglobin 30.9 PG (27.0-31.0) Mean Corpuscular Hemoglobin Concent 33.3 G/DL (32.0-36.0) Red Cell Distribution Width 14.6 % (11.6-14.8) Platelet Count 191 K/UL (150-450) Mean Platelet Volume 7.2 FL (6.5-10.1) Neutrophils (%) (Auto) % (45.0-75.0) Lymphocytes (%) (Auto) % (20.0-45.0) Monocytes (%) (Auto) % (1.0-10.0) Eosinophils (%) (Auto) % (0.0-3.0) Basophils (%) (Auto) % (0.0-2.0) Differential Total Cells Counted 50 Neutrophils % (Manual) 48 % (45-75) Lymphocytes % (Manual) 20 % (20-45) Monocytes % (Manual) 6 % (1-10) Eosinophils % (Manual) 0 % (0-3) Basophils % (Manual) 0 % (0-2) Band Neutrophils 26 % (0-8) H Nucleated Red Blood Cells 5 /100 WBC Platelet Estimate Adequate Platelet Morphology Normal Polychromasia 1+ Anisocytosis 1+ Sodium Level 131 MMOL/L (136-145) L Potassium Level 5.7 MMOL/L (3.5-5.1) H Chloride Level 98 MMOL/L (98-107) Carbon Dioxide Level 31 MMOL/L (21-32) Anion Gap 2 mmol/L (5-15) L Blood Urea Nitrogen 35 mg/dL (7-18) H Creatinine 0.9 MG/DL (0.55-1.30) Estimat Glomerular Filtration Rate > 60 mL/min (>60) Glucose Level 271 MG/DL (74-106) H Lactic Acid Level 3.10 mmol/L (0.4-2.0) H 2.30 mmol/L (0.66-2.22) H Calcium Level 8.9 MG/DL (8.5-10.1) Total Bilirubin 0.6 MG/DL (0.2-1.0) Aspartate Amino Transf (AST/SGOT) 34 U/L (15-37) Alanine Aminotransferase (ALT/SGPT) 24 U/L (12-78) Alkaline Phosphatase 95 U/L (46-116) Ammonia 38 umol/L (11-32) H Total Creatine Kinase 56 U/L (26-308) Creatine Kinase MB 3.0 NG/ML (0.0-3.6) Creatine Kinase MB Relative Index 5.3 Troponin I 0.297 ng/mL (0.000-0.056) Pro-B-Type Natriuretic Peptide 9398 pg/mL (0-125) H Total Protein 5.9 G/DL (6.4-8.2) L Albumin 1.8 G/DL (3.4-5.0) L Globulin 4.1 g/dL Albumin/Globulin Ratio 0.4 (1.0-2.7) L Test 11/11/18 04:00 White Blood Count 3.0 K/UL (4.8-10.8) #L Red Blood Count 2.96 M/UL (4.70-6.10) L Hemoglobin 9.3 G/DL (14.2-18.0) L Hematocrit 27.1 % (42.0-52.0) L Mean Corpuscular Volume 92 FL (80-99) Mean Corpuscular Hemoglobin 31.4 PG (27.0-31.0) H Mean Corpuscular Hemoglobin Concent 34.3 G/DL (32.0-36.0) Red Cell Distribution Width 14.5 % (11.6-14.8) Platelet Count 140 K/UL (150-450) L Mean Platelet Volume 7.7 FL (6.5-10.1) Neutrophils (%) (Auto) % (45.0-75.0) Lymphocytes (%) (Auto) % (20.0-45.0) Monocytes (%) (Auto) % (1.0-10.0) Eosinophils (%) (Auto) % (0.0-3.0) Basophils (%) (Auto) % (0.0-2.0) Differential Total Cells Counted 100 Neutrophils % (Manual) 67 % (45-75) Lymphocytes % (Manual) 7 % (20-45) L Monocytes % (Manual) 5 % (1-10) Eosinophils % (Manual) 0 % (0-3) Basophils % (Manual) 0 % (0-2) Band Neutrophils 21 % (0-8) H Platelet Estimate Decreased L Platelet Morphology Normal Hypochromasia 2+ Anisocytosis 1+ Spherocytes 2+ Sodium Level 136 MMOL/L (136-145) Potassium Level 3.6 MMOL/L (3.5-5.1) Chloride Level 99 MMOL/L (98-107) Carbon Dioxide Level 36 MMOL/L (21-32) H Anion Gap 1 mmol/L (5-15) L Blood Urea Nitrogen 21 mg/dL (7-18) H Creatinine 0.6 MG/DL (0.55-1.30) Estimat Glomerular Filtration Rate > 60 mL/min (>60) Glucose Level 210 MG/DL (74-106) H Calcium Level 8.3 MG/DL (8.5-10.1) L Total Bilirubin 0.5 MG/DL (0.2-1.0) Aspartate Amino Transf (AST/SGOT) 25 U/L (15-37) Alanine Aminotransferase (ALT/SGPT) 23 U/L (12-78) Alkaline Phosphatase 72 U/L (46-116) Total Protein 5.1 G/DL (6.4-8.2) L Albumin 1.6 G/DL (3.4-5.0) L Globulin 3.5 g/dL Albumin/Globulin Ratio 0.5 (1.0-2.7) L Microbiology Date/Time Source Procedure Growth Status 11/10/18 14:30 Urine,Clean Catch Urine Culture - Preliminary NO GROWTH Resulted Height (Feet): 5 Height (Inches): 6.00 Weight (Pounds): 137 Medications Current Medications Medications (Trade) Dose Ordered Sig/Chace Route PRN Reason Start Time Stop Time Status Last Admin Dose Admin Chlorhexidine Gluconate (Susannah-Hex 2%) 1 applic DAILY@2000 TOPIC 11/10/18 20:00 12/10/18 19:59 11/10/18 20:07 Dextrose (Dextrose 50%) 25 ml Q30M PRN IV Hypoglycemia 11/10/18 14:30 12/10/18 14:29 Dextrose (Dextrose 50%) 50 ml Q30MIN PRN IV Hypoglycemia 11/10/18 14:30 12/10/18 14:29 Dextrose/Sodium Chloride 1,000 ml @ 50 mls/hr Q20H IV 11/10/18 14:22 12/10/18 14:21 11/10/18 17:53 Heparin Sodium (Porcine) (Heparin 5000 units/ml) 5,000 units EVERY 12 HOURS SUBQ 11/10/18 21:00 12/10/18 20:59 11/11/18 08:59 Insulin Aspart (NovoLOG) EVERY 6 HOURS SUBQ 11/10/18 18:00 12/10/18 17:59 11/11/18 06:01 Lorazepam (Ativan 2mg/ml 1ml) 0.5 mg Q4H PRN IV For Anxiety 11/10/18 14:30 11/17/18 14:29 Morphine Sulfate (Morphine Sulfate) 1 mg Q4H PRN IVP For Pain 11/10/18 14:30 11/17/18 14:29 Ondansetron HCl (Zofran) 4 mg Q6H PRN IVP Nausea & Vomiting 11/10/18 14:30 12/10/18 14:29 Sitagliptin Phosphate (Januvia) 50 mg DAILY ORAL 11/11/18 09:00 12/11/18 08:59 11/11/18 08:58 Tamsulosin HCl (Flomax) 0.4 mg BEDTIME ORAL 11/10/18 21:00 12/10/18 20:59 11/10/18 21:39 Assessment/Plan Problem List: (1) Acute encephalopathy ICD Codes: G93.40 - Encephalopathy, unspecified SNOMED: 84518424, 399424431 (2) Uncontrolled seizures ICD Codes: R56.9 - Unspecified convulsions SNOMED: 59452258 (3) Sacral decubitus ulcer ICD Codes: L89.159 - Pressure ulcer of sacral region, unspecified stage SNOMED: 767053480 (4) Severe malnutrition ICD Codes: E43 - Unspecified severe protein-calorie malnutrition SNOMED: 70007896 (5) History of CVA (cerebrovascular accident) ICD Codes: Z86.73 - Personal history of transient ischemic attack (TIA), and cerebral infarction without residual deficits SNOMED: 672297466 (6) Brain tumor ICD Codes: D49.6 - Neoplasm of unspecified behavior of brain SNOMED: 054506265 (7) Oligodendroglioma ICD Codes: C71.9 - Malignant neoplasm of brain, unspecified SNOMED: 98068149, 925339408 (8) Hypertension ICD Codes: I10 - Essential (primary) hypertension SNOMED: 56917064 (9) Diabetes mellitus ICD Codes: E11.9 - Type 2 diabetes mellitus without complications SNOMED: 84710041 (10) Anemia ICD Codes: D64.9 - Anemia, unspecified SNOMED: 043360093 Assessment/Plan: Neuro evaluation symptomatic treatment Gtube site care resume Gtube wound care f/u electrolytes dvt prphylaxis. Raul Feng MD November 11, 2018 10:43
--- NOTE | 2018-11-11 11:00 | NUR ---
NURSE NOTES: Informed Dr. Feng regarding elevated HR 120' with no new order at this time.
--- NOTE | 2018-11-11 11:48 | NUR ---
RD ASSESSMENT & RECOMMENDATIONS SEE CARE ACTIVITY FOR COMPLETE ASSESSMENT DAILY ESTIMATED NEEDS: Needs based on Advanced wound, wt loss/ 57kg 30-35 kcals/kg 6502-4329 total kcals 1.5-2.0 g protein/kg 86-114 g total protein 25-30 mL/kg 3118-4306 total fluid mLs NUTRITION DIAGNOSIS: * Increased kcal/prot needs R/T wound healing, wt loss as evidenced by sacral stage 4 wound, possible significant wt loss of 19lbs/ 13.4% in ~1 month. * Swallowing difficulty R/T dysphagia w/ h/o brain tumor and CVA as evidenced by s/p recent PEG placement, on GT feeding. CURRENT TF:Glucerna 1.2 @ 30ml/hr x 24 hrs- meets 51% est kcal, 50% est prot needs ENTERAL NUTRITION RECOMMENDATIONS: Glucerna 1.5 @ 50ml/hr x 24 hrs to provide 1200ml, 1800kcal, 99g prot, 911ml free water * Rec TF change to Glucerna 1.5 for increased kcal/prot needs * Initiate Glucerna 1.5 @ 20ml/hr x 6 hrs, advance 10ml q 4-6 hrs as tolerated to goal rate. * HOB over 30 degrees/ water fluhs per MD ADDITIONAL RECOMMENDATIONS: * Calibrated bedscale wt for accurate CBW- w/ added P200 mattress * Check lytes daily w/ TF, replete as needed * Wound healing: add Vit C 500mg BID and Ziyad 1pkt BID * Monitor BGs closely, need for tighter regimen (BGs in the 200's) . .
--- NOTE | 2018-11-11 12:00 | NUR ---
NURSE NOTES: Noted with episode of desaturation with 4L of oxygen via N/C. O2 saturation was in between 88-90%. RT called and changed oxygen to non-rebreather 100%. O2 saturation went up to 94% with non-rebreather mask. Informed Dr. Feng with new order of STAT chest x-ray and ABG. Order carried out.
--- NOTE | 2018-11-11 12:42 | NUR ---
NURSE NOTES: Called and left message to Dr. Feng regarding result of ABG. Awaiting for call back.
--- NOTE | 2018-11-11 13:23 | Diagnostic Imaging Report ---
Indication: Dyspnea Comparison: 11/10/2018 A single view chest radiograph was obtained. Findings: There is density at the retrocardiac aspect of the left lung base with faint air bronchograms. A left subclavian line is noted unchanged in good position. Heart size remains normal. IMPRESSION: Development of pneumonia versus atelectasis at the left lung base. Correlate clinically
--- NOTE | 2018-11-11 14:30 | Consultation ---
History of Present Illness General Date patient seen: November 11, 2018 Chief Complaint: Altered Level of Consciousness Present Illness HPI 68 year old male shelter resident with multiple medical comorbidities who is well known to me from recent admission presented with altered mental status and change in condition with possible seizures. On admission was hypotensive, tachycardic, and unresponsive. Initially urgent central venous catheter placed in ED at request for meds, fluids, pressors prn. since he was admitted for care and management. On admission noted to have acutely worsened sacral decubitus ulcer requiring care. surgery called to evaluate and assist with care. patient seen, chart reviewed, patient examined. patient unable to cooperate with exam given medical condition. wound with necrotic edges now. Allergies: Coded Allergies: No Known Allergies (Unverified , 09/27/18) Medication History Scheduled Apixaban (Eliquis), 5 MG PO BID, (Reported) Atorvastatin (Lipitor), 80 MG ORAL BEDTIME, (Reported) Carvedilol (Coreg), 25 MG ORAL EVERY 12 HOURS Dexamethasone* (Dexamethasone*), 4 MG PO BID, (Reported) Divalproex Sodium (Divalproex Sodium), 500 MG PO BID, (Reported) Ergocalciferol (Vitamin D2)* (Vitamin D*), 50,000 UNIT ORAL ONCE A WEEK, ( Reported) Finasteride (Finasteride), 5 MG ORAL DAILY@2100 Lacosamide (Vimpat), 200 MG PO BID, (Reported) Lamotrigine* (Lamictal*), 50 MG ORAL DAILY Losartan Potassium* (Losartan Potassium*), 25 MG ORAL DAILY, (Reported) Metformin Hcl (Glucophage), 1,000 MG ORAL BID, (Reported) Perampanel (Fycompa), 4 MG PO DAILY, (Reported) Quetiapine Fumarate* (Seroquel*), 25 MG ORAL Q12HR Ranitidine Hcl* (Zantac*), 150 MG ORAL DAILY, (Reported) Sitagliptin (Januvia), 50 MG ORAL DAILY Tamsulosin HCl (Flomax), 0.4 MG ORAL BEDTIME Temozolomide (Temozolomide), 5 MG PO DAILY, (Reported) Zinc Sulfate (Zinc Sulfate*), 220 MG ORAL DAILY, (Reported) Scheduled PRN Acetaminophen* (Acetaminophen 325MG Tablet*), 650 MG ORAL Q6H PRN for For Pain, (Reported) Miscellaneous Medications Insulin Lispro (Humalog), 0 SUBQ, (Reported) Discontinued Medications Ascorbic Acid* (Vitamin C*), 500 MG ORAL DAILY, (Reported) Discontinued Reason: Pt had allergic rxn Carvedilol (Coreg), 12.5 MG ORAL EVERY 12 HOURS, (Reported) Discontinued Reason: Therapy completed Cholecalciferol (Vitamin D3)* (Vitamin D*), 50,000 UNITS ORAL QWEEK, (Reported) Discontinued Reason: Therapy completed Dexamethasone (Dexamethasone), 4 MG ORAL DAILY Discontinued Reason: Therapy completed Dexamethasone* (Decadron*), 4 MG PO BID, (Reported) Discontinued Reason: Prescription changed Digoxin* (Digoxin*), 0.25 MG ORAL DAILY Discontinued Reason: Therapy completed Divalproex Sodium (Depakote), 500 MG PO BID, (Reported) Discontinued Reason: Therapy completed Divalproex Sodium (Depakote), 1,500 MG PO, (Reported) Discontinued Reason: Therapy completed Docusate Sodium (Docusate Sodium), 100 MG ORAL DAILY, (Reported) Discontinued Reason: Therapy completed Insulin Aspart (Novolog Flexpen), 0 UNITS SUBQ EVERY 6 HOURS Discontinued Reason: Therapy completed Insulin Detemir (Levemir Flexpen), 6 UNITS SUBQ DAILY Discontinued Reason: Therapy completed Losartan Potassium (Losartan Potassium), 25 MG ORAL DAILY, (Reported) Discontinued Reason: Prescription changed Metformin Hcl* (Glucophage*), 100 MG ORAL TWICE A DAY, (Reported) Discontinued Reason: Therapy completed Multivitamin With Minerals (Multivitamins With Minerals*), 1 TAB ORAL DAILY, ( Reported) Discontinued Reason: Therapy completed Polyethylene Glycol 3350* (Miralax*), 17 GM ORAL DAILY, (Reported) Discontinued Reason: Therapy completed Polyethylene Glycol 3350* (Miralax*), 17 GM ORAL DAILY, (Reported) Discontinued Reason: Therapy completed Vancomycin Hcl (Vancomycin Hcl), 125 MG PO DAILY, (Reported) Discontinued Reason: Therapy completed Vancomycin Hcl (Vancomycin Hcl), 125 MG IV DAILY, (Reported) Discontinued Reason: Therapy completed Patient History Limited by: medical condition History Provided By: Medical Record, PMD Healthcare decision maker Resuscitation status Full Code Advanced Directive on File Yes Past Medical/Surgical History Past Medical/Surgical History: (1) Uncontrolled seizures (2) Diabetes mellitus (3) Hypertension (4) Dysphagia (5) Oligodendroglioma (6) Brain tumor (7) Sacral decubitus ulcer (8) History of CVA (cerebrovascular accident) (9) Severe malnutrition (10) Anemia (11) PEG (percutaneous endoscopic gastrostomy) adjustment/replacement/removal (12) Sepsis (13) Acute encephalopathy (14) acute toxic encephalopathy (15) Failure to thrive (16) UTI (urinary tract infection) (17) Hypotension Review of Systems ROS Narrative cannot obtain given medical condition Physical Exam General Appearance: no apparent distress Lines, tubes and drains: central line HEENT: mucous membranes moist Neck: normal inspection Respiratory/Chest: no respiratory distress, no accessory muscle use Cardiovascular/Chest: tachycardia Abdomen: soft, no organomegaly, no mass, other Extremities: normal inspection Skin Exam: other Neurologic: unresponsiveness Last 24 Hour Vital Signs Date Time Temp Pulse Resp B/P (MAP) Pulse Ox O2 Delivery O2 Flow Rate FiO2 11/11/18 12:00 98.4 120 24 113/58 (76) 93 11/11/18 12:00 Non-Rebreather 15.0 11/11/18 12:00 121 11/11/18 12:00 15.0 100 11/11/18 08:00 120 11/11/18 08:00 2.0 11/11/18 08:00 97.5 113 26 96/56 (69) 95 11/11/18 08:00 Nasal Cannula 2.0 11/11/18 05:16 2.0 11/11/18 04:00 98.7 105 22 106/60 (75) 100 11/11/18 04:00 Nasal Cannula 2.0 11/11/18 03:24 102 11/11/18 00:00 98.4 110 21 106/59 (75) 100 11/11/18 00:00 Nasal Cannula 2.0 11/10/18 23:39 110 11/10/18 20:00 Nasal Cannula 2.0 11/10/18 20:00 4.0 11/10/18 20:00 97.5 105 20 108/70 (83) 100 11/10/18 19:04 105 11/10/18 18:25 Simple Mask 4.0 11/10/18 17:30 97.9 109 24 125/93 (104) 100 11/10/18 17:17 98.2 115 18 126/62 100 Simple Mask 6.0 11/10/18 16:43 98.2 115 18 126/62 100 Simple Mask 6.0 11/10/18 15:20 98.2 108 18 117/64 100 Simple Mask 6.0 11/10/18 15:18 107 18 Simple Mask 6.0 11/10/18 14:45 98.2 110 16 94 Simple Mask 6.0 Intake and Output 11/10/18 11/11/18 19:00 07:00 Intake Total 210 ml 60 ml Output Total 550 ml 850 ml Balance -340 ml -790 ml Intake Free Water 100 ml IV Total 50 ml Tube Feeding 60 ml 60 ml Output Urine Total 550 ml 850 ml # Bowel Movements 2 1 Laboratory Tests Test 11/10/18 14:30 11/10/18 14:35 11/10/18 14:40 11/10/18 15:40 Urine Color Yellow Urine Appearance Clear Urine pH 5 (4.5-8.0) Urine Specific [place] 1.010 (1.005-1.035) Urine Protein 3+ (NEGATIVE) H Urine Glucose (UA) 4+ (NEGATIVE) H Urine Ketones 1+ (NEGATIVE) H Urine Blood 5+ (NEGATIVE) H Urine Nitrite Negative (NEGATIVE) Urine Bilirubin Negative (NEGATIVE) Urine Urobilinogen 4 MG/DL (0.0-1.0) H Urine Leukocyte Esterase 3+ (NEGATIVE) H Urine RBC 10-15 /HPF (0 - 0) H Urine WBC 10-15 /HPF (0 - 0) H Urine Squamous Epithelial Cells Occasional /LPF Urine Bacteria Few /HPF (NONE) Arterial Blood pH 7.515 (7.350-7.450) Arterial Blood Partial Pressure CO2 33.8 mmHg (35.0-45.0) L Arterial Blood Partial Pressure O2 78.9 mmHg (75.0-100.0) Arterial Blood HCO3 26.7 mmol/L (22.0-26.0) H Arterial Blood Oxygen Saturation 95.6 % (95-100) Arterial Blood Base Excess 3.8 (-2-2) H Martell Test Positive White Blood Count 1.4 K/UL (4.8-10.8) #*L Red Blood Count 3.59 M/UL (4.70-6.10) L Hemoglobin 11.1 G/DL (14.2-18.0) L Hematocrit 33.2 % (42.0-52.0) L Mean Corpuscular Volume 93 FL (80-99) Mean Corpuscular Hemoglobin 30.9 PG (27.0-31.0) Mean Corpuscular Hemoglobin Concent 33.3 G/DL (32.0-36.0) Red Cell Distribution Width 14.6 % (11.6-14.8) Platelet Count 191 K/UL (150-450) Mean Platelet Volume 7.2 FL (6.5-10.1) Neutrophils (%) (Auto) % (45.0-75.0) Lymphocytes (%) (Auto) % (20.0-45.0) Monocytes (%) (Auto) % (1.0-10.0) Eosinophils (%) (Auto) % (0.0-3.0) Basophils (%) (Auto) % (0.0-2.0) Differential Total Cells Counted 50 Neutrophils % (Manual) 48 % (45-75) Lymphocytes % (Manual) 20 % (20-45) Monocytes % (Manual) 6 % (1-10) Eosinophils % (Manual) 0 % (0-3) Basophils % (Manual) 0 % (0-2) Band Neutrophils 26 % (0-8) H Nucleated Red Blood Cells 5 /100 WBC Platelet Estimate Adequate Platelet Morphology Normal Polychromasia 1+ Anisocytosis 1+ Sodium Level 131 MMOL/L (136-145) L Potassium Level 5.7 MMOL/L (3.5-5.1) H Chloride Level 98 MMOL/L (98-107) Carbon Dioxide Level 31 MMOL/L (21-32) Anion Gap 2 mmol/L (5-15) L Blood Urea Nitrogen 35 mg/dL (7-18) H Creatinine 0.9 MG/DL (0.55-1.30) Estimat Glomerular Filtration Rate > 60 mL/min (>60) Glucose Level 271 MG/DL (74-106) H Lactic Acid Level 3.10 mmol/L (0.4-2.0) H 2.30 mmol/L (0.66-2.22) H Calcium Level 8.9 MG/DL (8.5-10.1) Total Bilirubin 0.6 MG/DL (0.2-1.0) Aspartate Amino Transf (AST/SGOT) 34 U/L (15-37) Alanine Aminotransferase (ALT/SGPT) 24 U/L (12-78) Alkaline Phosphatase 95 U/L (46-116) Ammonia 38 umol/L (11-32) H Total Creatine Kinase 56 U/L (26-308) Creatine Kinase MB 3.0 NG/ML (0.0-3.6) Creatine Kinase MB Relative Index 5.3 Troponin I 0.297 ng/mL (0.000-0.056) Pro-B-Type Natriuretic Peptide 9398 pg/mL (0-125) H Total Protein 5.9 G/DL (6.4-8.2) L Albumin 1.8 G/DL (3.4-5.0) L Globulin 4.1 g/dL Albumin/Globulin Ratio 0.4 (1.0-2.7) L Test 11/11/18 04:00 11/11/18 12:16 White Blood Count 3.0 K/UL (4.8-10.8) #L Red Blood Count 2.96 M/UL (4.70-6.10) L Hemoglobin 9.3 G/DL (14.2-18.0) L Hematocrit 27.1 % (42.0-52.0) L Mean Corpuscular Volume 92 FL (80-99) Mean Corpuscular Hemoglobin 31.4 PG (27.0-31.0) H Mean Corpuscular Hemoglobin Concent 34.3 G/DL (32.0-36.0) Red Cell Distribution Width 14.5 % (11.6-14.8) Platelet Count 140 K/UL (150-450) L Mean Platelet Volume 7.7 FL (6.5-10.1) Neutrophils (%) (Auto) % (45.0-75.0) Lymphocytes (%) (Auto) % (20.0-45.0) Monocytes (%) (Auto) % (1.0-10.0) Eosinophils (%) (Auto) % (0.0-3.0) Basophils (%) (Auto) % (0.0-2.0) Differential Total Cells Counted 100 Neutrophils % (Manual) 67 % (45-75) Lymphocytes % (Manual) 7 % (20-45) L Monocytes % (Manual) 5 % (1-10) Eosinophils % (Manual) 0 % (0-3) Basophils % (Manual) 0 % (0-2) Band Neutrophils 21 % (0-8) H Platelet Estimate Decreased L Platelet Morphology Normal Hypochromasia 2+ Anisocytosis 1+ Spherocytes 2+ Sodium Level 136 MMOL/L (136-145) Potassium Level 3.6 MMOL/L (3.5-5.1) Chloride Level 99 MMOL/L (98-107) Carbon Dioxide Level 36 MMOL/L (21-32) H Anion Gap 1 mmol/L (5-15) L Blood Urea Nitrogen 21 mg/dL (7-18) H Creatinine 0.6 MG/DL (0.55-1.30) Estimat Glomerular Filtration Rate > 60 mL/min (>60) Glucose Level 210 MG/DL (74-106) H Calcium Level 8.3 MG/DL (8.5-10.1) L Total Bilirubin 0.5 MG/DL (0.2-1.0) Aspartate Amino Transf (AST/SGOT) 25 U/L (15-37) Alanine Aminotransferase (ALT/SGPT) 23 U/L (12-78) Alkaline Phosphatase 72 U/L (46-116) Total Protein 5.1 G/DL (6.4-8.2) L Albumin 1.6 G/DL (3.4-5.0) L Globulin 3.5 g/dL Albumin/Globulin Ratio 0.5 (1.0-2.7) L Arterial Blood pH 7.513 (7.350-7.450) Arterial Blood Partial Pressure CO2 34.7 mmHg (35.0-45.0) L Arterial Blood Partial Pressure O2 68.7 mmHg (75.0-100.0) L Arterial Blood HCO3 27.3 mmol/L (22.0-26.0) H Arterial Blood Oxygen Saturation 93.0 % (95-100) L Arterial Blood Base Excess 4.3 (-2-2) H Martell Test Positive Microbiology Date/Time Source Procedure Growth Status 11/10/18 14:30 Urine,Clean Catch Urine Culture - Preliminary NO GROWTH Resulted Height (Feet): 5 Height (Inches): 6.00 Weight (Pounds): 137 Medications Current Medications Medications (Trade) Dose Ordered Sig/Chace Route PRN Reason Start Time Stop Time Status Last Admin Dose Admin Chlorhexidine Gluconate (Susannah-Hex 2%) 1 applic DAILY@1999 TOPIC 11/10/18 20:00 12/10/18 19:59 11/10/18 20:07 Dextrose (Dextrose 50%) 25 ml Q30M PRN IV Hypoglycemia 11/10/18 14:30 12/10/18 14:29 Dextrose (Dextrose 50%) 50 ml Q30MIN PRN IV Hypoglycemia 11/10/18 14:30 12/10/18 14:29 Heparin Sodium (Porcine) (Heparin 5000 units/ml) 5,000 units EVERY 12 HOURS SUBQ 11/10/18 21:00 12/10/18 20:59 11/11/18 08:59 Insulin Aspart (NovoLOG) EVERY 6 HOURS SUBQ 11/10/18 18:00 12/10/18 17:59 11/11/18 11:51 Lorazepam (Ativan 2mg/ml 1ml) 0.5 mg Q4H PRN IV For Anxiety 11/10/18 14:30 11/17/18 14:29 Morphine Sulfate (Morphine Sulfate) 1 mg Q4H PRN IVP For Pain 11/10/18 14:30 11/17/18 14:29 Ondansetron HCl (Zofran) 4 mg Q6H PRN IVP Nausea & Vomiting 11/10/18 14:30 12/10/18 14:29 Sitagliptin Phosphate (Januvia) 50 mg DAILY ORAL 11/11/18 09:00 12/11/18 08:59 11/11/18 08:58 Sodium Chloride 1,000 ml @ 50 mls/hr Q20H IV 11/11/18 11:00 12/11/18 10:59 11/11/18 11:36 Tamsulosin HCl (Flomax) 0.4 mg BEDTIME ORAL 11/10/18 21:00 12/10/18 20:59 11/10/18 21:39 Assessment/Plan Problem List: (1) Sacral decubitus ulcer Assessment & Plan: Pt presented on admission with 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 Base is viable with some slough .Bone is palpable. undermining clockwise 9-6o'clock ,at 12 o'clock base of wound is necrotic.mixed slough and soft necrosis noted along borders. Periwound erythematous and indurated.Mild odor resolved after cleansing of wound. No exudate noted. Both heels are firm and blanchable. No evidence of skin breakdown noted to all other bony prominences. Tx.Plan: Cleanse wound with Saline. pleurogel q3day .Apply Triad paste periwound. Cover with Optifoam drsg Apply Cavilon Skin Barrier to both heels .Cover each heel with Optifoam drsg. Change every 7 days and prn Apply Cavilon Skin Barrier to both hips. Cover each hip with Optifoam drsg. Change every 7 days and prn. Air fluidized mattress. Reposition at least every 2hours or as tolerated. Off-load heels with pillow. Can plan for continued care based on above recommendations when discharged. ICD Codes: L89.159 - Pressure ulcer of sacral region, unspecified stage SNOMED: 495172837 (2) Severe malnutrition Assessment & Plan: DAILY ESTIMATED NEEDS: Needs based on Advanced wound, wt loss/ 57kg 30-35 kcals/kg 7558-6468 total kcals 1.5-2.0 g protein/kg 86-114 g total protein 25-30 mL/kg 1750-2166 total fluid mLs NUTRITION DIAGNOSIS: * Increased kcal/prot needs R/T wound healing, wt loss as evidenced by sacral stage 4 wound, possible significant wt loss of 19lbs/ 13.4% in ~1 month. * Swallowing difficulty R/T dysphagia w/ h/o brain tumor and CVA as evidenced by s/p recent PEG placement, on GT feeding. CURRENT TF:Glucerna 1.2 @ 30ml/hr x 24 hrs- meets 51% est kcal, 50% est prot needs ENTERAL NUTRITION RECOMMENDATIONS: Glucerna 1.5 @ 50ml/hr x 24 hrs to provide 1200ml, 1800kcal, 99g prot, 911ml free water * Rec TF change to Glucerna 1.5 for increased kcal/prot needs * Initiate Glucerna 1.5 @ 20ml/hr x 6 hrs, advance 10ml q 4-6 hrs as tolerated to goal rate. * HOB over 30 degrees/ water fluhs per MD ADDITIONAL RECOMMENDATIONS: * Calibrated bedscale wt for accurate CBW- w/ added P200 mattress * Check lytes daily w/ TF, replete as needed * Wound healing: add Vit C 500mg BID and Ziyad 1pkt BID * Monitor BGs closely, need for tighter regimen (BGs in the 200's) . ICD Codes: E43 - Unspecified severe protein-calorie malnutrition SNOMED: 97282192 (3) Failure to thrive SNOMED: [id number] Harry Rivas November 11, 2018 14:29
--- NOTE | 2018-11-11 14:43 | NUR ---
NURSE NOTES: Called and left message to Dr. Feng again regarding ABG result, elevated HR, and became more lethargic. Still awaiting for call back.
[2018-11-11] MEDS ORDERED: [UNRECOGNIZED DRUG - SUPPLY] TOPIC SCH (16:00)
--- NOTE | 2018-11-11 16:00 | NUR ---
NURSE NOTES: Dr. Feng ordered BIPAP and transfer the patient to ICU. Order carried out.
--- NOTE | 2018-11-11 16:57 | NUR ---
NURSE NOTES: Received call from Charli Crystal (son) that he wants to change code status to DNR/DNI. Called and left message to Dr. Feng. Awaiting for call back.
--- NOTE | 2018-11-11 17:18 | Cardiac Electrophysiology PN ---
Subjective Subjective [id number] Objective Last 24 Hour Vital Signs Date Time Temp Pulse Resp B/P (MAP) Pulse Ox O2 Delivery O2 Flow Rate FiO2 11/11/18 17:07 139 16 100 Facial 80 11/11/18 16:33 138 31 100 Bi-pap 100 11/11/18 16:23 138 31 100 Facial 100 11/11/18 16:00 131 11/11/18 16:00 100 11/11/18 16:00 98.2 131 30 121/62 (81) 100 11/11/18 16:00 Bi-pap 11/11/18 12:00 98.4 120 24 113/58 (76) 93 11/11/18 12:00 Non-Rebreather 15.0 11/11/18 12:00 121 11/11/18 12:00 15.0 100 11/11/18 08:00 120 11/11/18 08:00 2.0 11/11/18 08:00 97.5 113 26 96/56 (69) 95 11/11/18 08:00 Nasal Cannula 2.0 11/11/18 05:16 2.0 11/11/18 04:00 98.7 105 22 106/60 (75) 100 11/11/18 04:00 Nasal Cannula 2.0 11/11/18 03:24 102 11/11/18 00:00 98.4 110 21 106/59 (75) 100 11/11/18 00:00 Nasal Cannula 2.0 11/10/18 23:39 110 11/10/18 20:00 Nasal Cannula 2.0 11/10/18 20:00 4.0 11/10/18 20:00 97.5 105 20 108/70 (83) 100 11/10/18 19:04 105 11/10/18 18:25 Simple Mask 4.0 11/10/18 17:30 97.9 109 24 125/93 (104) 100 Intake and Output 11/10/18 11/11/18 19:00 07:00 Intake Total 210 ml 60 ml Output Total 550 ml 850 ml Balance -340 ml -790 ml Intake Free Water 100 ml IV Total 50 ml Tube Feeding 60 ml 60 ml Output Urine Total 550 ml 850 ml # Bowel Movements 2 1 Laboratory Tests Test 11/11/18 04:00 11/11/18 12:16 White Blood Count 3.0 K/UL (4.8-10.8) #L Red Blood Count 2.96 M/UL (4.70-6.10) L Hemoglobin 9.3 G/DL (14.2-18.0) L Hematocrit 27.1 % (42.0-52.0) L Mean Corpuscular Volume 92 FL (80-99) Mean Corpuscular Hemoglobin 31.4 PG (27.0-31.0) H Mean Corpuscular Hemoglobin Concent 34.3 G/DL (32.0-36.0) Red Cell Distribution Width 14.5 % (11.6-14.8) Platelet Count 140 K/UL (150-450) L Mean Platelet Volume 7.7 FL (6.5-10.1) Neutrophils (%) (Auto) % (45.0-75.0) Lymphocytes (%) (Auto) % (20.0-45.0) Monocytes (%) (Auto) % (1.0-10.0) Eosinophils (%) (Auto) % (0.0-3.0) Basophils (%) (Auto) % (0.0-2.0) Differential Total Cells Counted 100 Neutrophils % (Manual) 67 % (45-75) Lymphocytes % (Manual) 7 % (20-45) L Monocytes % (Manual) 5 % (1-10) Eosinophils % (Manual) 0 % (0-3) Basophils % (Manual) 0 % (0-2) Band Neutrophils 21 % (0-8) H Platelet Estimate Decreased L Platelet Morphology Normal Hypochromasia 2+ Anisocytosis 1+ Spherocytes 2+ Sodium Level 136 MMOL/L (136-145) Potassium Level 3.6 MMOL/L (3.5-5.1) Chloride Level 99 MMOL/L (98-107) Carbon Dioxide Level 36 MMOL/L (21-32) H Anion Gap 1 mmol/L (5-15) L Blood Urea Nitrogen 21 mg/dL (7-18) H Creatinine 0.6 MG/DL (0.55-1.30) Estimat Glomerular Filtration Rate > 60 mL/min (>60) Glucose Level 210 MG/DL (74-106) H Calcium Level 8.3 MG/DL (8.5-10.1) L Total Bilirubin 0.5 MG/DL (0.2-1.0) Aspartate Amino Transf (AST/SGOT) 25 U/L (15-37) Alanine Aminotransferase (ALT/SGPT) 23 U/L (12-78) Alkaline Phosphatase 72 U/L (46-116) Total Protein 5.1 G/DL (6.4-8.2) L Albumin 1.6 G/DL (3.4-5.0) L Globulin 3.5 g/dL Albumin/Globulin Ratio 0.5 (1.0-2.7) L Arterial Blood pH 7.513 (7.350-7.450) Arterial Blood Partial Pressure CO2 34.7 mmHg (35.0-45.0) L Arterial Blood Partial Pressure O2 68.7 mmHg (75.0-100.0) L Arterial Blood HCO3 27.3 mmol/L (22.0-26.0) H Arterial Blood Oxygen Saturation 93.0 % (95-100) L Arterial Blood Base Excess 4.3 (-2-2) H Martell Test Positive Microbiology Date/Time Source Procedure Growth Status 11/10/18 14:30 Urine,Clean Catch Urine Culture - Preliminary NO GROWTH Resulted Huy Valladares MD November 11, 2018 17:18
--- NOTE | 2018-11-11 17:53 | NUR ---
TRANSFER TO FLOOR: Patient transferred to ICU via hospital bed. Report given to CHIDI Ortega. Belongings and medications given to RN. Family informed of transfer.
--- NOTE | 2018-11-11 17:59 | NUR ---
NURSE NOTES: Report received from Pam MURILLO. Pt asleep, does not respond. Pt connected to court monitor, ST 130s. Pt on bipap 25/5, 100% fiO2 100% saturating 100%. GT noted and intact with glucerna 1.2 running at 30 cc/hr. Mota noted and intact with clear, yellow urine to gravity. Pt has sacral stage 4 ulcer with dressing clear, dry and intact and redness on heels. Left subclavian TLC noted with NS running at 50 cc/hr. Safety measures in place with bed locked and in lowest position, padded siderails x3 up and bed alarm on. Will continue to monitor and continue plan of care.
[2018-11-11] MEDS ORDERED: Morphine Sulfate 2mg/ml Inj(IV/IM USE ONLY) IVP PRN (18:30)
[2018-11-11] MEDS ORDERED: LORazepam Inj 2mg/ml 1ml IV PRN (18:30)
--- NOTE | 2018-11-11 18:33 | NUR ---
NURSE NOTES: Dr Kidd here to see pt. Son is here visiting with pt. Son is considering DNR with intubation ok but needs to discuss with his brother the other power of litigation attorney associate before making that kind of decision. Pt still sinus tach at 130s. Will continue to monitor.
--- NOTE | 2018-11-11 18:35 | Internal Med Progress Note ---
Subjective Date of Service: November 11, 2018 Physician Name Jesus Kidd Attending Physician Camacho Braun MD Current Medications Medications (Trade) Dose Ordered Sig/Chace Route PRN Reason Start Time Stop Time Status Last Admin Dose Admin Chlorhexidine Gluconate (Susannah-Hex 2%) 1 applic DAILY@2000 TOPIC 11/11/18 20:00 12/10/18 19:59 Dextrose (Dextrose 50%) 25 ml Q30M PRN IV Hypoglycemia 11/11/18 18:00 12/10/18 14:29 Dextrose (Dextrose 50%) 50 ml Q30M PRN IV Hypoglycemia 11/11/18 18:00 12/11/18 17:59 Heparin Sodium (Porcine) (Heparin 5000 units/ml) 5,000 units EVERY 12 HOURS SUBQ 11/11/18 21:00 12/10/18 20:59 Insulin Aspart (NovoLOG) EVERY 6 HOURS SUBQ 11/11/18 18:00 12/10/18 17:59 Lorazepam (Ativan 2mg/ml 1ml) 0.5 mg Q4H PRN IV For Anxiety 11/11/18 18:30 11/17/18 14:29 Metoprolol Tartrate (Lopressor) 25 mg Q12HR PEG 11/11/18 21:00 12/11/18 20:59 Morphine Sulfate (Morphine Sulfate) 1 mg Q4H PRN IVP For Pain 11/11/18 18:30 11/17/18 14:29 Ondansetron HCl (Zofran) 4 mg Q6H PRN IVP Nausea & Vomiting 11/11/18 18:30 12/10/18 18:29 Poloxamer (PluroGel) 1 applic Q3D TOPIC 11/14/18 16:00 12/11/18 15:59 Sitagliptin Phosphate (Januvia) 50 mg DAILY ORAL 11/12/18 09:00 12/11/18 08:59 Sodium Chloride 1,000 ml @ 50 mls/hr Q20H IV 11/11/18 18:00 12/11/18 10:59 Tamsulosin HCl (Flomax) 0.4 mg BEDTIME ORAL 11/11/18 21:00 12/10/18 20:59 Allergies: Coded Allergies: No Known Allergies (Unverified , 09/27/18) ROS Limited/Unobtainable: Yes Subjective 68 YO M admitted with respiratory failure. Now Pneumonia and sinus tachycardia. Cover for Int Med-Dr Braun. On BIPAP Objective Last Vital Signs Date Time Temp Pulse Resp B/P (MAP) Pulse Ox O2 Delivery O2 Flow Rate FiO2 11/11/18 17:07 139 16 100 Facial 80 11/11/18 16:00 98.2 121/62 (81) 11/11/18 12:00 15.0 General Appearance: WD/WN, moderate distress EENT: PERRL/EOMI, normal ENT inspection Neck: non-tender, normal alignment, supple, normal inspection Cardiovascular: normal peripheral pulses, regular rhythm, no gallop/murmur, no JVD, tachycardia Respiratory/Chest: chest wall non-tender, crackles/rales, rhonchi - bilaterally , expiratory wheezing Abdomen: normal bowel sounds, non tender, soft, no organomegaly, no mass Extremities: normal range of motion, non-tender Neurologic: 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 II-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 grossly normal Skin: normal pigmentation Laboratory Tests Test 11/11/18 04:00 11/11/18 12:16 White Blood Count 3.0 K/UL (4.8-10.8) #L Red Blood Count 2.96 M/UL (4.70-6.10) L Hemoglobin 9.3 G/DL (14.2-18.0) L Hematocrit 27.1 % (42.0-52.0) L Mean Corpuscular Volume 92 FL (80-99) Mean Corpuscular Hemoglobin 31.4 PG (27.0-31.0) H Mean Corpuscular Hemoglobin Concent 34.3 G/DL (32.0-36.0) Red Cell Distribution Width 14.5 % (11.6-14.8) Platelet Count 140 K/UL (150-450) L Mean Platelet Volume 7.7 FL (6.5-10.1) Neutrophils (%) (Auto) % (45.0-75.0) Lymphocytes (%) (Auto) % (20.0-45.0) Monocytes (%) (Auto) % (1.0-10.0) Eosinophils (%) (Auto) % (0.0-3.0) Basophils (%) (Auto) % (0.0-2.0) Differential Total Cells Counted 100 Neutrophils % (Manual) 67 % (45-75) Lymphocytes % (Manual) 7 % (20-45) L Monocytes % (Manual) 5 % (1-10) Eosinophils % (Manual) 0 % (0-3) Basophils % (Manual) 0 % (0-2) Band Neutrophils 21 % (0-8) H Platelet Estimate Decreased L Platelet Morphology Normal Hypochromasia 2+ Anisocytosis 1+ Spherocytes 2+ Sodium Level 136 MMOL/L (136-145) Potassium Level 3.6 MMOL/L (3.5-5.1) Chloride Level 99 MMOL/L (98-107) Carbon Dioxide Level 36 MMOL/L (21-32) H Anion Gap 1 mmol/L (5-15) L Blood Urea Nitrogen 21 mg/dL (7-18) H Creatinine 0.6 MG/DL (0.55-1.30) Estimat Glomerular Filtration Rate > 60 mL/min (>60) Glucose Level 210 MG/DL (74-106) H Calcium Level 8.3 MG/DL (8.5-10.1) L Total Bilirubin 0.5 MG/DL (0.2-1.0) Aspartate Amino Transf (AST/SGOT) 25 U/L (15-37) Alanine Aminotransferase (ALT/SGPT) 23 U/L (12-78) Alkaline Phosphatase 72 U/L (46-116) Total Protein 5.1 G/DL (6.4-8.2) L Albumin 1.6 G/DL (3.4-5.0) L Globulin 3.5 g/dL Albumin/Globulin Ratio 0.5 (1.0-2.7) L Arterial Blood pH 7.513 (7.350-7.450) Arterial Blood Partial Pressure CO2 34.7 mmHg (35.0-45.0) L Arterial Blood Partial Pressure O2 68.7 mmHg (75.0-100.0) L Arterial Blood HCO3 27.3 mmol/L (22.0-26.0) H Arterial Blood Oxygen Saturation 93.0 % (95-100) L Arterial Blood Base Excess 4.3 (-2-2) H Martell Test Positive Microbiology Date/Time Source Procedure Growth Status 11/10/18 14:30 Urine,Clean Catch Urine Culture - Preliminary NO GROWTH Resulted Intake and Output 11/10/18 11/11/18 19:00 07:00 Intake Total 210 ml 60 ml Output Total 550 ml 850 ml Balance -340 ml -790 ml Intake Free Water 100 ml IV Total 50 ml Tube Feeding 60 ml 60 ml Output Urine Total 550 ml 850 ml # Bowel Movements 2 1 Assessment/Plan Assessment/Plan ASSESSMENT: This is a 68-year-old male. 1. Altered mental status. 2. Respiratory failure. 3. Hypertension. 4. Dysphagia. 5. Failure to thrive. 6. Encephalopathy. 7. Brain cancer. 8. Seizure disorder. 9. Diabetes type 2. 10. Cerebrovascular disease. 11. Right hemiparesis. 12. Hypertension. 13. Coronary artery disease. 14. Expressive aphasia. 15. Pneumonia TREATMENT: 1. Respiratory failure. BIPAP. Pulmonary consultation has been obtained with Dr. Raul Feng. The patient is currently on a non-rebreather mask. We will follow recommendations of Pulmonary. 2. Altered mental status is probably secondary to hypoxia as above. 3. Dysphagia. The patient is status post PEG placement on 11/05/2018. 4. Failure to thrive. 5. Encephalopathy. 6. Brain cancer. 7. Seizure disorder. Continue Depakote and Vimpat as above. 8. Diabetes type 2. Continue Humalog sliding scale as above. 9. Cerebrovascular disease. 10. Right hemiparesis. 11. Hypertension. 12. Coronary artery disease. 13. Expressive aphasia. 14. Start vanco and cefepime; await ID consult 15. D/W son Charli at bedside Jesus Kidd MD November 11, 2018 18:35
--- NOTE | 2018-11-11 18:52 | NUR ---
NURSE NOTES: Pt's son along with his brother decided to change pt status to DNR/DNI. Dr Kidd placed order. Polst signed by and pt's son. Will continue to monitor.
--- NOTE | 2018-11-11 19:06 | NUR ---
RESPIRATORY NOTE: Received pt on BiPAP 25/5, backup rate 16, 80%. Pt on a Facial mask, skin intact, no redness/breakdowns noted. Foam tape applied on pt's nosebridge/cheeks/chin to prevent any mask irritations. Pt drowsy/lethargic, responds to stimuli. B/S ayana. diminished, nonproductive cough. BiPAP plugged into red outlet. Pt tolerating current settings, in no apparent distress at this time. Will continue to monitor pt.
--- NOTE | 2018-11-11 19:30 | Consultation ---
DATE OF CONSULTATION: 11/11/2018 CARDIOLOGY CONSULTATION CONSULTING PHYSICIAN: Huy Valladares M.D. REFERRING PHYSICIAN: Camacho Braun M.D. REASON FOR CONSULTATION: Tachycardia. HISTORY OF PRESENT ILLNESS: The patient is a 68-year-old gentleman who was admitted to [facility] from September 04 through November 09, 2018, and underwent PEG placement on November 05, 2018, for failure to thrive. The patient has history of oligodendroglioma, WHO grade 2 brain cancer and resident of [facility]. The patient was more altered than usual after arriving on November 09, 2018, and was sent to [facility] for reevaluation. The patient is on telemetry and initially was mildly tachycardic with heart rate of 110. Today, he was severely tachycardic with heart rate of 140. At the time of my evaluation, the patient is altered, on BiPAP, and is unable to provide any information. REVIEW OF SYSTEMS: Cannot be obtained. PAST MEDICAL HISTORY: Includes: 1. Hypertension. 2. Diabetes. 3. History of CVA. 4. Oligodendroglioma brain cancer. 5. Seizure disorder. 6. Coronary artery disease. 7. Expressive aphasia. 8. Status post G-tube placement. PAST SURGICAL HISTORY: Includes craniotomy for brain tumor as above, appendectomy, tonsillectomy, sacral decubitus debridement on October 13 at [facility], and PEG placement on November 05, 2018, at [facility]. MEDICATIONS: Per reconciliation. SOCIAL HISTORY: He is , has 2 grown children, and lives in a cardiac rehab shelter facility. Does not smoke or drink alcohol. PHYSICAL EXAMINATION: VITAL SIGNS: Show blood pressure of 120/62, pulse 139, respirations 18, and temperature 98.2. HEAD AND NECK: Shows no JVD. He has BiPAP on. LUNGS: Coarse rhonchi bilaterally. CARDIOVASCULAR: Shows tachycardic S1, S2 with no gallop or murmur. ABDOMEN: Soft. Status post G-tube. EXTREMITIES: No pitting edema. LABORATORY AND DIAGNOSTIC DATA: His labs show white count initially was 1.4 and today it is 3, hemoglobin 9.2, hematocrit of 27.1, and platelet count of 140,000. Sodium is 136, potassium 3.6, BUN of 21, creatinine 0.6, and glucose of 210. Lactic acid is 3.1. Troponin is 0.297. Urinalysis showed 3+ leukocyte esterase and many bacteria. ASSESSMENT AND PLAN: 1. Tachycardia. Telemetry strip shows actually the patient has sinus tachycardia, rate of 140. This is likely secondary to underlying respiratory sepsis. Currently on BiPAP. We will completely rule out DC protocol for further evaluation as the patient's troponin is elevated. 2. Troponin elevation at 0.297. The patient does not have renal failure. We will repeat cardiac enzymes. We will repeat EKG and echocardiogram for further evaluation. 3. Brain tumor, status post surgery. 4. Diabetes. 5. History of CVA. 6. Dysphagia, status post PEG placement. 7. Status post sacral decubitus debridement. 8. Seizure disorder, on Depakote. 9. Hypertension. The patient is to be on losartan 25 mg daily and Coreg 25 mg b.i.d. This may be due to beta-radha withdrawal. Resume his Coreg and do further evaluation. Thank you very much, Dr. Braun, for allowing me to participate in the care of this patient. Please do not hesitate to contact me for any questions regarding my evaluation. Huy Valladares M.D. DR: Issa JOB#: [id number] CC:
--- NOTE | 2018-11-11 19:35 | NUR ---
HAND-OFF: Report given to Emilee MURILLO.
[2018-11-11] MEDS ORDERED: Vancomycin 1.25gm Premix IVPB SCH (20:00)
--- NOTE | 2018-11-11 20:00 | NUR ---
NURSE NOTE pt transfer fr sdu resp distress and hypotention dr hilton was notify with made levo drip stared at 20mcg/min on b-pap 25/ with 02 sat 100 iv infusing well dressing dry and intact lt ij tlc reposition and suction
--- NOTE | 2018-11-11 20:23 | Cardiology Report ---
APPROVED REPORT EKG Measurement Heart [id number] Sinus tachycardia Left axis deviation Low voltage QRS Inferior infarct, age undetermined Cannot rule out Anteroseptal infarct, age undetermined Abnormal ECG
[2018-11-11] MEDS: Vancomycin 750mg/NS 275ml IVPB SCH ×4 (20:47→20:52)
[2018-11-11] MEDS: Dyna-Hex 2% Top Sol 2oz TOPIC SCH (20:49)
[2018-11-11] MEDS ORDERED: Tamsulosin 0.4mg cap ORAL SCH (21:00)
[2018-11-11] MEDS ORDERED: Metoprolol 25mg tab PEG SCH ×2 (21:00)
[2018-11-11] MEDS: Metoprolol 25mg tab PEG SCH (21:00)
[2018-11-11] MEDS: Cefepime HCl 1 GM in D5W 55 ML IVPB SCH (21:57)
--- NOTE | 2018-11-11 22:00 | NUR ---
NURSE NOTES: b- pap 70 0/0 fio2 o2 sat 100o/o urinary output 10-20 per/hr nan verbal responsive to pain
[2018-11-12] VITALS (22 sets, daily range): BP systolic 77–150; BP diastolic 49–82
--- NOTE | 2018-11-12 | NUR ---
NURSE NOTES: BP 76/56 LEVO DRIP .30MCG /MIN TUBE FEEDING OFF
[2018-11-12] MEDS: NovoLOG Insulin Flexpen SUBQ SCH ×4 (00:10→18:09)
--- NOTE | 2018-11-12 04:00 | NUR ---
NURSE NOTES: COMPLETE BED BATH ORAL CARE DONE REPOSITION AND SUCTION LEVO DRIP AT 20 MCG /MIN REPOSITION AND SUCTION
[2018-11-12 05:08] LABS: HEMATOCRIT 24.3 % (42.0-52.0); HEMOGLOBIN 8.3 G/DL (14.2-18.0); MEAN CORPUSCULAR VOLUME 91 FL (80-99); PLATELET COUNT 154 K/UL (150-450); RED BLOOD COUNT 2.66 M/UL (4.70-6.10); WHITE BLOOD COUNT 5.7 K/UL (4.8-10.8)
[2018-11-12 05:40] LABS: ALANINE AMINOTRANSFERASE 22 U/L (12-78); ALBUMIN 1.3 G/DL (3.4-5.0); ALBUMIN/GLOBULIN RATIO 0.4 (1.0-2.7); ALKALINE PHOSPHATASE 80 U/L (46-116); ANION GAP 8 mmol/L (5-15); ASPARTATE AMINO TRANSFERASE 28 U/L (15-37); BILIRUBIN,TOTAL 1.1 MG/DL (0.2-1.0); BLOOD UREA NITROGEN 19 mg/dL (7-18); CALCIUM 7.4 MG/DL (8.5-10.1); CARBON DIOXIDE 28 MMOL/L (21-32); CHLORIDE 99 MMOL/L (98-107); CREATININE 0.6 MG/DL (0.55-1.30); PHOSPHORUS 2.4 MG/DL (2.5-4.9); POTASSIUM 3.6 MMOL/L (3.5-5.1); SODIUM 135 MMOL/L (136-145)
[2018-11-12 05:42] LABS: BILIRUBIN,DIRECT 0.6 MG/DL (0.0-0.3)
--- NOTE | 2018-11-12 06:00 | NUR ---
NURSE NOTES: levo drip at 5mcg with bp 120/60
--- NOTE | 2018-11-12 06:31 | NUR ---
RESPIRATORY NOTE: Received pt on Bipap 25/5 rate 16- 50%FiO2, pt is sleeping, tolerating well the setting, no SOB or resp distress noted. No redness or skin breakdown noted on pt's face, foam tapes are applied on nose bridge, cheeks and chin to prevent skin breakdown. Alarms are on and audible, Bipap is plugged into the red outlet, ambu bag is at bedside. Will continue to monitor pt.
--- NOTE | 2018-11-12 07:28 | NUR ---
HAND-OFF: Report given to .miky wharton using sbar
--- NOTE | 2018-11-12 08:00 | NUR ---
RESPIRATORY NOTE: Took pt off Bipap and placed on 4L NC 36%FiO2 per Dr. Feng's order due to ABG result. Bipap standby, pt is tolerating well, no SOB or resp distress noted. Will continue to monitor pt closely.
--- NOTE | 2018-11-12 08:00 | NUR ---
NURSE NOTES: Opens eyes, non responsive. Levophed on 5 mcg/hr. NS at 50. Off bipap, now on 4 L NC saturating 100%. L subclavian TLC. VSS at this time. 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 Glucerna 1.5 at 30 cc/hr. Lung sounds diminished bilaterally. Will continue plan of care.
--- NOTE | 2018-11-12 08:22 | NUR ---
RADIOLOGY DEPT., CHEST X-RAY DONE.-P.DYE
[2018-11-12] MEDS: Metoprolol 25mg tab PEG SCH (08:44)
[2018-11-12] MEDS: Cefepime HCl 1 GM in D5W 55 ML IVPB SCH (08:52)
[2018-11-12] MEDS: Heparin 5000 units/ml inj SUBQ SCH ×2 (08:57→21:10)
[2018-11-12] MEDS ORDERED: sitaGLIPtin 50mg tab ORAL SCH (09:00)
--- NOTE | 2018-11-12 10:00 | NUR ---
NURSE NOTES: Turned and repositioned. No new orders at this time. 2Decho has been done. Dr. Valladares notified of troponin level. Will continue plan of care.
--- NOTE | 2018-11-12 10:19 | Cardiac Electrophysiology PN ---
Assessment/Plan Assessment/Plan 1. Sinus tachycardia at rate of 140. This is likely secondary to underlying respiratory sepsis. Was on BiPAP. ECG no acute ST-T changes 2. Troponin elevation at 0.297 increased to 0.86. The patient does not have renal failure. Echocardiogram pending. 3. Septic shock on Levophed and Abx. Echo pending 4. Diabetes. 5. History of CVA. 6. Dysphagia, status post PEG placement. 7. Status post sacral decubitus debridement. 8. Seizure disorder, on Depakote. 9. Hypertension. Was on losartan 25 mg daily and Coreg 25 mg b.i.d. that were DCed 10. Brain tumor, status post surgery. 11. DNR DW RN Subjective Subjective Transferred to ICU on Levophed 5 mcg. Nonverbal. Remained in SR. On NS 50cc/hr Objective Last 24 Hour Vital Signs Date Time Temp Pulse Resp B/P (MAP) Pulse Ox O2 Delivery O2 Flow Rate FiO2 11/12/18 09:22 4 Nasal Cannula 4.0 36 11/12/18 08:44 105 96/58 11/12/18 08:00 102 23 100 11/12/18 07:00 96/50 11/12/18 06:31 97 16 100 Facial 50 11/12/18 06:00 122/45 11/12/18 05:10 110 17 100 Facial 50 11/12/18 05:00 94 16 136/73 (94) 100 11/12/18 05:00 136/73 11/12/18 04:45 97 16 135/71 (92) 100 11/12/18 04:30 91 16 136/70 (92) 100 11/12/18 04:15 91 15 138/64 (88) 100 11/12/18 04:00 Bi-pap 11/12/18 04:00 138/64 11/12/18 04:00 94 11/12/18 04:00 50 11/12/18 04:00 98.6 94 16 129/64 (85) 100 11/12/18 03:45 95 17 127/66 (86) 100 11/12/18 03:30 93 16 112/67 (82) 100 11/12/18 03:23 87/54 11/12/18 03:15 103 16 99/66 (77) 100 11/12/18 03:12 104 16 100 Facial 50 11/12/18 03:00 113 138/82 (100) 100 11/12/18 02:45 112 17 89/70 (76) 100 11/12/18 02:30 99 16 150/71 (97) 100 11/12/18 02:15 107 18 150/76 (100) 99 11/12/18 02:00 101 16 130/73 (92) 99 11/12/18 02:00 150/76 11/12/18 01:45 98 16 136/68 (90) 100 11/12/18 01:30 95 17 135/68 (90) 100 11/12/18 01:15 106 77/49 (58) 100 11/12/18 01:11 107 16 100 Facial 60 11/12/18 01:00 108 28 111/60 (77) 100 11/12/18 01:00 150/76 11/12/18 00:45 108 17 99/61 (74) 100 11/12/18 00:30 109 25 97/64 (75) 100 11/12/18 00:15 107 15 119/62 (81) 100 11/12/18 00:00 98.0 113 26 97/64 (75) 100 11/12/18 00:00 60 11/12/18 00:00 Bi-pap 11/12/18 00:00 108 11/12/18 00:00 112/62 11/11/18 23:45 115 24 109/67 (81) 100 11/11/18 23:30 116 23 111/63 (79) 100 11/11/18 23:15 115 21 106/62 (77) 100 11/11/18 23:04 115 24 100 Facial 60 11/11/18 23:00 113 22 103/67 (79) 100 11/11/18 23:00 106/62 11/11/18 22:45 115 25 110/61 (77) 100 11/11/18 22:30 116 31 96/63 (74) 100 11/11/18 22:15 114 30 112/63 (79) 100 11/11/18 22:15 114 30 112/63 (79) 100 11/11/18 22:00 112/63 11/11/18 22:00 Bi-pap 11/11/18 22:00 116 25 102/59 (73) 100 11/11/18 21:45 118 27 106/62 (77) 100 11/11/18 21:30 117 23 86/52 (63) 100 11/11/18 21:15 119 28 90/57 (68) 100 11/11/18 21:00 117 24 108/65 (79) 100 11/11/18 21:00 86/57 11/11/18 21:00 110 84/40 11/11/18 20:59 118 20 100 Facial 70 11/11/18 20:49 84/47 11/11/18 20:45 117 24 78/49 (59) 100 11/11/18 20:30 105 18 182/84 (116) 100 11/11/18 20:15 124 20 74/50 (58) 100 11/11/18 20:00 70 11/11/18 20:00 98.4 126 22 74/45 (55) 100 11/11/18 20:00 129 11/11/18 20:00 Bi-pap 11/11/18 19:04 135 22 100 Facial 80 11/11/18 19:00 134 26 82/57 (65) 100 11/11/18 18:00 137 27 75/52 (60) 100 11/11/18 17:30 98.0 139 25 86/56 (66) 100 11/11/18 17:07 139 16 100 Facial 80 11/11/18 16:33 138 31 100 Bi-pap 100 11/11/18 16:23 138 31 100 Facial 100 11/11/18 16:00 131 11/11/18 16:00 100 11/11/18 16:00 98.2 131 30 121/62 (81) 100 11/11/18 16:00 Bi-pap 11/11/18 12:00 98.4 120 24 113/58 (76) 93 11/11/18 12:00 Non-Rebreather 15.0 11/11/18 12:00 121 11/11/18 12:00 15.0 100 Intake and Output 11/11/18 11/12/18 19:00 07:00 Intake Total 770 ml 1983.250 ml Balance 770 ml 1983.250 ml Intake Free Water 160 ml 300 ml IV Total 250 ml 1394.250 ml Tube Feeding 360 ml 290 ml # Voids 435 # Bowel Movements 1 4 Laboratory Tests Test 11/11/18 12:16 11/11/18 23:45 11/12/18 04:10 11/12/18 07:35 Arterial Blood pH 7.513 (7.350-7.450) 7.655 (7.350-7.450) Arterial Blood Partial Pressure CO2 34.7 mmHg (35.0-45.0) L 22.0 mmHg (35.0-45.0) *L Arterial Blood Partial Pressure O2 68.7 mmHg (75.0-100.0) L 188.1 mmHg (75.0-100.0) H Arterial Blood HCO3 27.3 mmol/L (22.0-26.0) H 24.0 mmol/L (22.0-26.0) Arterial Blood Oxygen Saturation 93.0 % (95-100) L 99.0 % (95-100) Arterial Blood Base Excess 4.3 (-2-2) H 3.7 (-2-2) H Martell Test Positive Positive Lactic Acid Level 1.70 mmol/L (0.4-2.0) White Blood Count 5.7 K/UL (4.8-10.8) # Red Blood Count 2.66 M/UL (4.70-6.10) L Hemoglobin 8.3 G/DL (14.2-18.0) L Hematocrit 24.3 % (42.0-52.0) L Mean Corpuscular Volume 91 FL (80-99) Mean Corpuscular Hemoglobin 31.1 PG (27.0-31.0) H Mean Corpuscular Hemoglobin Concent 34.1 G/DL (32.0-36.0) Red Cell Distribution Width 14.0 % (11.6-14.8) Platelet Count 154 K/UL (150-450) Mean Platelet Volume 7.1 FL (6.5-10.1) Neutrophils (%) (Auto) % (45.0-75.0) Lymphocytes (%) (Auto) % (20.0-45.0) Monocytes (%) (Auto) % (1.0-10.0) Eosinophils (%) (Auto) % (0.0-3.0) Basophils (%) (Auto) % (0.0-2.0) Differential Total Cells Counted 100 Neutrophils % (Manual) 62 % (45-75) Lymphocytes % (Manual) 7 % (20-45) L Monocytes % (Manual) 4 % (1-10) Eosinophils % (Manual) 0 % (0-3) Basophils % (Manual) 0 % (0-2) Band Neutrophils 27 % (0-8) H Platelet Estimate Adequate Platelet Morphology Normal Anisocytosis 1+ Sodium Level 135 MMOL/L (136-145) L Potassium Level 3.6 MMOL/L (3.5-5.1) Chloride Level 99 MMOL/L (98-107) Carbon Dioxide Level 28 MMOL/L (21-32) Anion Gap 8 mmol/L (5-15) Blood Urea Nitrogen 19 mg/dL (7-18) H Creatinine 0.6 MG/DL (0.55-1.30) Estimat Glomerular Filtration Rate > 60 mL/min (>60) Glucose Level 366 MG/DL (74-106) #H Calcium Level 7.4 MG/DL (8.5-10.1) L Phosphorus Level 2.4 MG/DL (2.5-4.9) L Magnesium Level 1.4 MG/DL (1.8-2.4) L Total Bilirubin 1.1 MG/DL (0.2-1.0) H Direct Bilirubin 0.6 MG/DL (0.0-0.3) H Aspartate Amino Transf (AST/SGOT) 28 U/L (15-37) Alanine Aminotransferase (ALT/SGPT) 22 U/L (12-78) Alkaline Phosphatase 80 U/L (46-116) Troponin I 0.869 ng/mL (0.000-0.056) Pro-B-Type Natriuretic Peptide 5426 pg/mL (0-125) H Total Protein 4.2 G/DL (6.4-8.2) L Albumin 1.3 G/DL (3.4-5.0) L Globulin 2.9 g/dL Albumin/Globulin Ratio 0.4 (1.0-2.7) L Microbiology Date/Time Source Procedure Growth Status 11/10/18 15:05 Blood Blood Culture - Preliminary NO GROWTH AFTER 24 HOURS Resulted 11/10/18 14:48 Blood Blood Culture - Preliminary NO GROWTH AFTER 24 HOURS Resulted 11/10/18 14:30 Urine,Clean Catch Urine Culture - Preliminary Gram Negative Cecil Resulted Objective HEAD AND NECK: No JVD. Off BiPAP on Nasal cannula 4 liters. LUNGS: Coarse rhonchi bilaterally. CARDIOVASCULAR: Tachycardic S1, S2 with no gallop or murmur. ABDOMEN: Soft. Status post G-tube. EXTREMITIES: No pitting edema. Huy Valladares MD November 12, 2018 10:19
--- NOTE | 2018-11-12 11:06 | Pulmonolgy Critical Care Note ---
Critical Care - Asmt/Plan Problems: (1) Acute respiratory failure (2) acute toxic encephalopathy (3) Oligodendroglioma (4) Diabetes mellitus (5) Sacral decubitus ulcer (6) History of CVA (cerebrovascular accident) (7) Severe malnutrition (8) Failure to thrive Respiratory: monitor respiratory rate, adjust FIO2, CXR Cardiac: continue pressors - taper off Levophed, continue to monitor HR/BP Renal: F/U I&O Infectious Disease: check cultures Gastrointestinal: continue feedings/current rate Endocrine: monitor blood sugar Hematologic: monitor H/H Neurologic: PRN Ativan Affect: PRN ativan Prophylaxis: Protonix Notes Reviewed: cna ltc, renal Discussed with: nurses, mental health case manager, other - family signed DNR form, will transfer to floor once pt is off levophed drip. Critical Care - Objective Last 24 Hour Vital Signs Date Time Temp Pulse Resp B/P (MAP) Pulse Ox O2 Delivery O2 Flow Rate FiO2 11/12/18 09:22 4 Nasal Cannula 4.0 36 11/12/18 08:44 105 96/58 11/12/18 08:00 Bi-pap 11/12/18 08:00 102 23 100 11/12/18 08:00 110 11/12/18 07:00 96/50 11/12/18 06:31 97 16 100 Facial 50 11/12/18 06:00 122/45 11/12/18 05:10 110 17 100 Facial 50 11/12/18 05:00 94 16 136/73 (94) 100 11/12/18 05:00 136/73 11/12/18 04:45 97 16 135/71 (92) 100 11/12/18 04:30 91 16 136/70 (92) 100 11/12/18 04:15 91 15 138/64 (88) 100 11/12/18 04:00 Bi-pap 11/12/18 04:00 138/64 11/12/18 04:00 94 11/12/18 04:00 50 11/12/18 04:00 98.6 94 16 129/64 (85) 100 11/12/18 03:45 95 17 127/66 (86) 100 11/12/18 03:30 93 16 112/67 (82) 100 11/12/18 03:23 87/54 11/12/18 03:15 103 16 99/66 (77) 100 11/12/18 03:12 104 16 100 Facial 50 11/12/18 03:00 113 138/82 (100) 100 11/12/18 02:45 112 17 89/70 (76) 100 11/12/18 02:30 99 16 150/71 (97) 100 11/12/18 02:15 107 18 150/76 (100) 99 11/12/18 02:00 101 16 130/73 (92) 99 11/12/18 02:00 150/76 11/12/18 01:45 98 16 136/68 (90) 100 11/12/18 01:30 95 17 135/68 (90) 100 11/12/18 01:15 106 77/49 (58) 100 11/12/18 01:11 107 16 100 Facial 60 11/12/18 01:00 108 28 111/60 (77) 100 11/12/18 01:00 150/76 11/12/18 00:45 108 17 99/61 (74) 100 11/12/18 00:30 109 25 97/64 (75) 100 11/12/18 00:15 107 15 119/62 (81) 100 11/12/18 00:00 98.0 113 26 97/64 (75) 100 11/12/18 00:00 60 11/12/18 00:00 Bi-pap 11/12/18 00:00 108 11/12/18 00:00 112/62 11/11/18 23:45 115 24 109/67 (81) 100 11/11/18 23:30 116 23 111/63 (79) 100 11/11/18 23:15 115 21 106/62 (77) 100 11/11/18 23:04 115 24 100 Facial 60 11/11/18 23:00 113 22 103/67 (79) 100 11/11/18 23:00 106/62 11/11/18 22:45 115 25 110/61 (77) 100 11/11/18 22:30 116 31 96/63 (74) 100 11/11/18 22:15 114 30 112/63 (79) 100 11/11/18 22:15 114 30 112/63 (79) 100 11/11/18 22:00 112/63 11/11/18 22:00 Bi-pap 11/11/18 22:00 116 25 102/59 (73) 100 11/11/18 21:45 118 27 106/62 (77) 100 11/11/18 21:30 117 23 86/52 (63) 100 11/11/18 21:15 119 28 90/57 (68) 100 11/11/18 21:00 117 24 108/65 (79) 100 11/11/18 21:00 86/57 11/11/18 21:00 110 84/40 11/11/18 20:59 118 20 100 Facial 70 11/11/18 20:49 84/47 11/11/18 20:45 117 24 78/49 (59) 100 11/11/18 20:30 105 18 182/84 (116) 100 11/11/18 20:15 124 20 74/50 (58) 100 11/11/18 20:00 70 11/11/18 20:00 98.4 126 22 74/45 (55) 100 11/11/18 20:00 129 11/11/18 20:00 Bi-pap 11/11/18 19:04 135 22 100 Facial 80 11/11/18 19:00 134 26 82/57 (65) 100 11/11/18 18:00 137 27 75/52 (60) 100 11/11/18 17:30 98.0 139 25 86/56 (66) 100 11/11/18 17:07 139 16 100 Facial 80 11/11/18 16:33 138 31 100 Bi-pap 100 11/11/18 16:23 138 31 100 Facial 100 11/11/18 16:00 131 11/11/18 16:00 100 11/11/18 16:00 98.2 131 30 121/62 (81) 100 11/11/18 16:00 Bi-pap 11/11/18 12:00 98.4 120 24 113/58 (76) 93 11/11/18 12:00 Non-Rebreather 15.0 11/11/18 12:00 121 11/11/18 12:00 15.0 100 Status: awake Condition: critical, improving HEENT: atraumatic Neck: full ROM Lungs: chest wall tender Heart: HR/BP stable, HR/BP unstable Abdomen: soft, feeding tube Extremities: edema Decubiti: stage Micro: Microbiology Date/Time Source Procedure Growth Status 11/10/18 15:05 Blood Blood Culture - Preliminary NO GROWTH AFTER 24 HOURS Resulted 11/10/18 14:48 Blood Blood Culture - Preliminary NO GROWTH AFTER 24 HOURS Resulted 11/10/18 14:30 Urine,Clean Catch Urine Culture - Preliminary Gram Negative Cecil Resulted Accucheck: 353 Critical Care - Subjective ROS Limited/Unobtainable: Yes ICU Day: 2 FI02: 36 Vent Support Mode: BiLevel Sputum Amount: None Fluids: NS 50 cc/hour Tube Feeding Amount: 30 I&O: Intake and Output 11/11/18 11/12/18 19:00 07:00 Intake Total 770 ml 1983.250 ml Balance 770 ml 1983.250 ml Intake Free Water 160 ml 300 ml IV Total 250 ml 1394.250 ml Tube Feeding 360 ml 290 ml # Voids 435 # Bowel Movements 1 4 CXR: no infiltrate Labs: Laboratory Tests Test 11/11/18 12:16 11/11/18 23:45 11/12/18 04:10 11/12/18 07:35 Arterial Blood pH 7.513 (7.350-7.450) 7.655 (7.350-7.450) Arterial Blood Partial Pressure CO2 34.7 mmHg (35.0-45.0) L 22.0 mmHg (35.0-45.0) *L Arterial Blood Partial Pressure O2 68.7 mmHg (75.0-100.0) L 188.1 mmHg (75.0-100.0) H Arterial Blood HCO3 27.3 mmol/L (22.0-26.0) H 24.0 mmol/L (22.0-26.0) Arterial Blood Oxygen Saturation 93.0 % (95-100) L 99.0 % (95-100) Arterial Blood Base Excess 4.3 (-2-2) H 3.7 (-2-2) H Martell Test Positive Positive Lactic Acid Level 1.70 mmol/L (0.4-2.0) White Blood Count 5.7 K/UL (4.8-10.8) # Red Blood Count 2.66 M/UL (4.70-6.10) L Hemoglobin 8.3 G/DL (14.2-18.0) L Hematocrit 24.3 % (42.0-52.0) L Mean Corpuscular Volume 91 FL (80-99) Mean Corpuscular Hemoglobin 31.1 PG (27.0-31.0) H Mean Corpuscular Hemoglobin Concent 34.1 G/DL (32.0-36.0) Red Cell Distribution Width 14.0 % (11.6-14.8) Platelet Count 154 K/UL (150-450) Mean Platelet Volume 7.1 FL (6.5-10.1) Neutrophils (%) (Auto) % (45.0-75.0) Lymphocytes (%) (Auto) % (20.0-45.0) Monocytes (%) (Auto) % (1.0-10.0) Eosinophils (%) (Auto) % (0.0-3.0) Basophils (%) (Auto) % (0.0-2.0) Differential Total Cells Counted 100 Neutrophils % (Manual) 62 % (45-75) Lymphocytes % (Manual) 7 % (20-45) L Monocytes % (Manual) 4 % (1-10) Eosinophils % (Manual) 0 % (0-3) Basophils % (Manual) 0 % (0-2) Band Neutrophils 27 % (0-8) H Platelet Estimate Adequate Platelet Morphology Normal Anisocytosis 1+ Sodium Level 135 MMOL/L (136-145) L Potassium Level 3.6 MMOL/L (3.5-5.1) Chloride Level 99 MMOL/L (98-107) Carbon Dioxide Level 28 MMOL/L (21-32) Anion Gap 8 mmol/L (5-15) Blood Urea Nitrogen 19 mg/dL (7-18) H Creatinine 0.6 MG/DL (0.55-1.30) Estimat Glomerular Filtration Rate > 60 mL/min (>60) Glucose Level 366 MG/DL (74-106) #H Calcium Level 7.4 MG/DL (8.5-10.1) L Phosphorus Level 2.4 MG/DL (2.5-4.9) L Magnesium Level 1.4 MG/DL (1.8-2.4) L Total Bilirubin 1.1 MG/DL (0.2-1.0) H Direct Bilirubin 0.6 MG/DL (0.0-0.3) H Aspartate Amino Transf (AST/SGOT) 28 U/L (15-37) Alanine Aminotransferase (ALT/SGPT) 22 U/L (12-78) Alkaline Phosphatase 80 U/L (46-116) Troponin I 0.869 ng/mL (0.000-0.056) Pro-B-Type Natriuretic Peptide 5426 pg/mL (0-125) H Total Protein 4.2 G/DL (6.4-8.2) L Albumin 1.3 G/DL (3.4-5.0) L Globulin 2.9 g/dL Albumin/Globulin Ratio 0.4 (1.0-2.7) L Raul Feng MD November 12, 2018 11:06
--- NOTE | 2018-11-12 12:00 | NUR ---
NURSE NOTES: VSS. No distress noted. Will continue plan of care.
--- NOTE | 2018-11-12 12:10 | Diagnostic Imaging Report ---
Indication: Dyspnea Comparison: 11/11/2018 A single view chest radiograph was obtained. Findings: There is increasing infiltrate at both lung bases. Correlate clinically for pneumonia. Subclavian line is stable. Heart size is stable. IMPRESSION: Suspicion of basilar pneumonia increasing over the last day. Please correlate clinically.
--- NOTE | 2018-11-12 12:22 | Consultation ---
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 Patient admitted to ICU Of note, patient recently admitted here from 10/10-10/22 for AMS, sepsis, UTI, infected sacral ulcer/OM s/p debridemetn was sent to SNF to complate a total of 6 weeks of IV abx. Allergies: Coded Allergies: No Known Allergies (Unverified , 09/27/18) Medication History Scheduled Apixaban (Eliquis), 5 MG PO BID, (Reported) Atorvastatin (Lipitor), 80 MG ORAL BEDTIME, (Reported) Carvedilol (Coreg), 25 MG ORAL EVERY 12 HOURS Dexamethasone* (Dexamethasone*), 4 MG PO BID, (Reported) Divalproex Sodium (Divalproex Sodium), 500 MG PO BID, (Reported) Ergocalciferol (Vitamin D2)* (Vitamin D*), 50,000 UNIT ORAL ONCE A WEEK, ( Reported) Finasteride (Finasteride), 5 MG ORAL DAILY@2100 Lacosamide (Vimpat), 200 MG PO BID, (Reported) Lamotrigine* (Lamictal*), 50 MG ORAL DAILY Losartan Potassium* (Losartan Potassium*), 25 MG ORAL DAILY, (Reported) Metformin Hcl (Glucophage), 1,000 MG ORAL BID, (Reported) Perampanel (Fycompa), 4 MG PO DAILY, (Reported) Quetiapine Fumarate* (Seroquel*), 25 MG ORAL Q12HR Ranitidine Hcl* (Zantac*), 150 MG ORAL DAILY, (Reported) Sitagliptin (Januvia), 50 MG ORAL DAILY Tamsulosin HCl (Flomax), 0.4 MG ORAL BEDTIME Temozolomide (Temozolomide), 5 MG PO DAILY, (Reported) Scheduled PRN Acetaminophen* (Acetaminophen 325MG Tablet*), 650 MG ORAL Q6H PRN for For Pain, (Reported) Miscellaneous Medications Insulin Lispro (Humalog), 0 SUBQ, (Reported) Discontinued Medications Ascorbic Acid* (Vitamin C*), 500 MG ORAL DAILY, (Reported) Discontinued Reason: Pt had allergic rxn Carvedilol (Coreg), 12.5 MG ORAL EVERY 12 HOURS, (Reported) Discontinued Reason: Therapy completed Cholecalciferol (Vitamin D3)* (Vitamin D*), 50,000 UNITS ORAL QWEEK, (Reported) Discontinued Reason: Therapy completed Dexamethasone (Dexamethasone), 4 MG ORAL DAILY Discontinued Reason: Therapy completed Dexamethasone* (Decadron*), 4 MG PO BID, (Reported) Discontinued Reason: Prescription changed Digoxin* (Digoxin*), 0.25 MG ORAL DAILY Discontinued Reason: Therapy completed Divalproex Sodium (Depakote), 500 MG PO BID, (Reported) Discontinued Reason: Therapy completed Divalproex Sodium (Depakote), 1,500 MG PO, (Reported) Discontinued Reason: Therapy completed Docusate Sodium (Docusate Sodium), 100 MG ORAL DAILY, (Reported) Discontinued Reason: Therapy completed Insulin Aspart (Novolog Flexpen), 0 UNITS SUBQ EVERY 6 HOURS Discontinued Reason: Therapy completed Insulin Detemir (Levemir Flexpen), 6 UNITS SUBQ DAILY Discontinued Reason: Therapy completed Losartan Potassium (Losartan Potassium), 25 MG ORAL DAILY, (Reported) Discontinued Reason: Prescription changed Metformin Hcl* (Glucophage*), 100 MG ORAL TWICE A DAY, (Reported) Discontinued Reason: Therapy completed Multivitamin With Minerals (Multivitamins With Minerals*), 1 TAB ORAL DAILY, ( Reported) Discontinued Reason: Therapy completed Polyethylene Glycol 3350* (Miralax*), 17 GM ORAL DAILY, (Reported) Discontinued Reason: Therapy completed Polyethylene Glycol 3350* (Miralax*), 17 GM ORAL DAILY, (Reported) Discontinued Reason: Therapy completed Vancomycin Hcl (Vancomycin Hcl), 125 MG PO DAILY, (Reported) Discontinued Reason: Therapy completed Vancomycin Hcl (Vancomycin Hcl), 125 MG IV DAILY, (Reported) Discontinued Reason: Therapy completed Zinc Sulfate (Zinc Sulfate*), 220 MG ORAL DAILY, (Reported) Discontinued Reason: Therapy completed Patient History Healthcare decision maker Resuscitation status Full Code Advanced Directive on File Yes Patient History Narrative PMhx: as above Shx: He is , has 2 grown children, and lives in a cardiac rehab group home facility. Does not smoke or drink alcohol. Fhx: non contributory Review of Systems All Other Systems: negative except mentioned in HPI Physical Exam Physical Exam Narrative GENERAL: The patient is a well-developed and well-nourished male, in no apparent distress. HEENT: Eyes, pupils are equal and responsive to light and accommodation. Extraocular movements are intact. NECK: Supple without lymphadenopathy. CHEST: Lungs are clear to auscultation bilaterally without wheezes or rales. CARDIOVASCULAR: Regular rhythm and rate. S1 and S2 are normal without murmurs, rubs, or gallops. ABDOMEN: Soft, nontender, and nondistended. Positive bowel sounds. No evidence of hepatosplenomegaly. Currently, no rebound or guarding noted. EXTREMITIES: Negative for clubbing, cyanosis, or edema. RECTAL/GENITAL: Not performed. NEUROLOGIC: Unable to assess. Last 24 Hour Vital Signs Date Time Temp Pulse Resp B/P (MAP) Pulse Ox O2 Delivery O2 Flow Rate FiO2 11/12/18 09:22 4 Nasal Cannula 4.0 36 11/12/18 08:44 105 96/58 11/12/18 08:00 Bi-pap 11/12/18 08:00 102 23 100 11/12/18 08:00 110 11/12/18 07:00 96/50 11/12/18 06:31 97 16 100 Facial 50 11/12/18 06:00 122/45 11/12/18 05:10 110 17 100 Facial 50 11/12/18 05:00 94 16 136/73 (94) 100 11/12/18 05:00 136/73 11/12/18 04:45 97 16 135/71 (92) 100 11/12/18 04:30 91 16 136/70 (92) 100 11/12/18 04:15 91 15 138/64 (88) 100 11/12/18 04:00 Bi-pap 11/12/18 04:00 138/64 11/12/18 04:00 94 11/12/18 04:00 50 11/12/18 04:00 98.6 94 16 129/64 (85) 100 11/12/18 03:45 95 17 127/66 (86) 100 11/12/18 03:30 93 16 112/67 (82) 100 11/12/18 03:23 87/54 11/12/18 03:15 103 16 99/66 (77) 100 11/12/18 03:12 104 16 100 Facial 50 11/12/18 03:00 113 138/82 (100) 100 11/12/18 02:45 112 17 89/70 (76) 100 11/12/18 02:30 99 16 150/71 (97) 100 11/12/18 02:15 107 18 150/76 (100) 99 11/12/18 02:00 101 16 130/73 (92) 99 11/12/18 02:00 150/76 11/12/18 01:45 98 16 136/68 (90) 100 11/12/18 01:30 95 17 135/68 (90) 100 11/12/18 01:15 106 77/49 (58) 100 11/12/18 01:11 107 16 100 Facial 60 11/12/18 01:00 108 28 111/60 (77) 100 11/12/18 01:00 150/76 11/12/18 00:45 108 17 99/61 (74) 100 11/12/18 00:30 109 25 97/64 (75) 100 11/12/18 00:15 107 15 119/62 (81) 100 11/12/18 00:00 98.0 113 26 97/64 (75) 100 11/12/18 00:00 60 11/12/18 00:00 Bi-pap 11/12/18 00:00 108 11/12/18 00:00 112/62 11/11/18 23:45 115 24 109/67 (81) 100 11/11/18 23:30 116 23 111/63 (79) 100 11/11/18 23:15 115 21 106/62 (77) 100 11/11/18 23:04 115 24 100 Facial 60 11/11/18 23:00 113 22 103/67 (79) 100 11/11/18 23:00 106/62 11/11/18 22:45 115 25 110/61 (77) 100 11/11/18 22:30 116 31 96/63 (74) 100 11/11/18 22:15 114 30 112/63 (79) 100 11/11/18 22:15 114 30 112/63 (79) 100 11/11/18 22:00 112/63 11/11/18 22:00 Bi-pap 11/11/18 22:00 116 25 102/59 (73) 100 11/11/18 21:45 118 27 106/62 (77) 100 11/11/18 21:30 117 23 86/52 (63) 100 11/11/18 21:15 119 28 90/57 (68) 100 11/11/18 21:00 117 24 108/65 (79) 100 11/11/18 21:00 86/57 11/11/18 21:00 110 84/40 11/11/18 20:59 118 20 100 Facial 70 11/11/18 20:49 84/47 11/11/18 20:45 117 24 78/49 (59) 100 11/11/18 20:30 105 18 182/84 (116) 100 11/11/18 20:15 124 20 74/50 (58) 100 11/11/18 20:00 70 11/11/18 20:00 98.4 126 22 74/45 (55) 100 11/11/18 20:00 129 11/11/18 20:00 Bi-pap 11/11/18 19:04 135 22 100 Facial 80 11/11/18 19:00 134 26 82/57 (65) 100 11/11/18 18:00 137 27 75/52 (60) 100 11/11/18 17:30 98.0 139 25 86/56 (66) 100 11/11/18 17:07 139 16 100 Facial 80 11/11/18 16:33 138 31 100 Bi-pap 100 11/11/18 16:23 138 31 100 Facial 100 11/11/18 16:00 131 11/11/18 16:00 100 11/11/18 16:00 98.2 131 30 121/62 (81) 100 11/11/18 16:00 Bi-pap 11/11/18 12:00 98.4 120 24 113/58 (76) 93 11/11/18 12:00 Non-Rebreather 15.0 11/11/18 12:00 121 11/11/18 12:00 15.0 100 Intake and Output 11/11/18 11/12/18 19:00 07:00 Intake Total 770 ml 1983.250 ml Balance 770 ml 1983.250 ml Intake Free Water 160 ml 300 ml IV Total 250 ml 1394.250 ml Tube Feeding 360 ml 290 ml # Voids 435 # Bowel Movements 1 4 Laboratory Tests Test 11/11/18 12:16 11/11/18 23:45 11/12/18 04:10 11/12/18 07:35 Arterial Blood pH 7.513 (7.350-7.450) 7.655 (7.350-7.450) Arterial Blood Partial Pressure CO2 34.7 mmHg (35.0-45.0) L 22.0 mmHg (35.0-45.0) *L Arterial Blood Partial Pressure O2 68.7 mmHg (75.0-100.0) L 188.1 mmHg (75.0-100.0) H Arterial Blood HCO3 27.3 mmol/L (22.0-26.0) H 24.0 mmol/L (22.0-26.0) Arterial Blood Oxygen Saturation 93.0 % (95-100) L 99.0 % (95-100) Arterial Blood Base Excess 4.3 (-2-2) H 3.7 (-2-2) H Martell Test Positive Positive Lactic Acid Level 1.70 mmol/L (0.4-2.0) White Blood Count 5.7 K/UL (4.8-10.8) # Red Blood Count 2.66 M/UL (4.70-6.10) L Hemoglobin 8.3 G/DL (14.2-18.0) L Hematocrit 24.3 % (42.0-52.0) L Mean Corpuscular Volume 91 FL (80-99) Mean Corpuscular Hemoglobin 31.1 PG (27.0-31.0) H Mean Corpuscular Hemoglobin Concent 34.1 G/DL (32.0-36.0) Red Cell Distribution Width 14.0 % (11.6-14.8) Platelet Count 154 K/UL (150-450) Mean Platelet Volume 7.1 FL (6.5-10.1) Neutrophils (%) (Auto) % (45.0-75.0) Lymphocytes (%) (Auto) % (20.0-45.0) Monocytes (%) (Auto) % (1.0-10.0) Eosinophils (%) (Auto) % (0.0-3.0) Basophils (%) (Auto) % (0.0-2.0) Differential Total Cells Counted 100 Neutrophils % (Manual) 62 % (45-75) Lymphocytes % (Manual) 7 % (20-45) L Monocytes % (Manual) 4 % (1-10) Eosinophils % (Manual) 0 % (0-3) Basophils % (Manual) 0 % (0-2) Band Neutrophils 27 % (0-8) H Platelet Estimate Adequate Platelet Morphology Normal Anisocytosis 1+ Sodium Level 135 MMOL/L (136-145) L Potassium Level 3.6 MMOL/L (3.5-5.1) Chloride Level 99 MMOL/L (98-107) Carbon Dioxide Level 28 MMOL/L (21-32) Anion Gap 8 mmol/L (5-15) Blood Urea Nitrogen 19 mg/dL (7-18) H Creatinine 0.6 MG/DL (0.55-1.30) Estimat Glomerular Filtration Rate > 60 mL/min (>60) Glucose Level 366 MG/DL (74-106) #H Calcium Level 7.4 MG/DL (8.5-10.1) L Phosphorus Level 2.4 MG/DL (2.5-4.9) L Magnesium Level 1.4 MG/DL (1.8-2.4) L Total Bilirubin 1.1 MG/DL (0.2-1.0) H Direct Bilirubin 0.6 MG/DL (0.0-0.3) H Aspartate Amino Transf (AST/SGOT) 28 U/L (15-37) Alanine Aminotransferase (ALT/SGPT) 22 U/L (12-78) Alkaline Phosphatase 80 U/L (46-116) Troponin I 0.869 ng/mL (0.000-0.056) Pro-B-Type Natriuretic Peptide 5426 pg/mL (0-125) H Total Protein 4.2 G/DL (6.4-8.2) L Albumin 1.3 G/DL (3.4-5.0) L Globulin 2.9 g/dL Albumin/Globulin Ratio 0.4 (1.0-2.7) L Height (Feet): 5 Height (Inches): 6.00 Weight (Pounds): 150 Medications Current Medications Medications (Trade) Dose Ordered Sig/Chace Route PRN Reason Start Time Stop Time Status Last Admin Dose Admin Cefepime HCl 1 gm/ Dextrose 55 ml @ 110 mls/hr EVERY 12 HOURS IVPB 11/11/18 21:00 11/18/18 20:59 11/12/18 08:52 Chlorhexidine Gluconate (Susannah-Hex 2%) 1 applic DAILY@2000 TOPIC 11/11/18 20:00 12/10/18 19:59 11/11/18 20:49 Dextrose (Dextrose 50%) 25 ml Q30M PRN IV Hypoglycemia 11/11/18 18:00 12/10/18 14:29 Dextrose (Dextrose 50%) 50 ml Q30M PRN IV Hypoglycemia 11/11/18 18:00 12/11/18 17:59 Heparin Sodium (Porcine) (Heparin 5000 units/ml) 5,000 units EVERY 12 HOURS SUBQ 11/11/18 21:00 12/10/18 20:59 11/12/18 08:57 Insulin Aspart (NovoLOG) EVERY 6 HOURS SUBQ 11/11/18 18:00 12/10/18 17:59 11/12/18 06:02 Lorazepam (Ativan 2mg/ml 1ml) 0.5 mg Q4H PRN IV For Anxiety 11/11/18 18:30 11/17/18 14:29 Midodrine (Pro-Amatine) 10 mg THREE TIMES A DAY ORAL 11/12/18 13:00 12/12/18 12:59 Morphine Sulfate (Morphine Sulfate) 1 mg Q4H PRN IVP For Pain 11/11/18 18:30 11/17/18 14:29 Norepinephrine Bitartrate 4 mg/ Dextrose 250 ml @ 0 mls/hr Q24H IV 11/11/18 20:15 12/11/18 20:14 11/12/18 03:23 Ondansetron HCl (Zofran) 4 mg Q6H PRN IVP Nausea & Vomiting 11/11/18 18:30 12/10/18 18:29 Poloxamer (PluroGel) 1 applic Q3D TOPIC 11/14/18 16:00 12/11/18 15:59 Sitagliptin Phosphate (Januvia) 50 mg DAILY ORAL 11/12/18 09:00 12/11/18 08:59 11/12/18 08:51 Sodium Chloride 1,000 ml @ 100 mls/hr Q10H IV 11/12/18 11:08 12/11/18 11:07 11/12/18 11:10 Tamsulosin HCl (Flomax) 0.4 mg BEDTIME ORAL 11/11/18 21:00 12/10/18 20:59 11/11/18 21:00 Vancomycin HCl (Vanco rx to dose) 1 ea DAILY PRN MISC Per rx protocol 11/11/18 18:30 12/11/18 18:29 Vancomycin HCl 750 mg/Sodium Chloride 275 ml @ 183.333 mls/hr Q12H IVPB 11/12/18 08:00 11/17/18 07:59 11/11/18 20:52 Assessment/Plan Assessment/Plan: Abx: IV Vancomycin 11/11- Cefepime 11/11- Zosyn x1 11/10 Assessment: Septic Shock- 2ry to UTI and PNA -u/a wbc 10-15, nit neg, leuk +3; ucx 50-60k GNR -CXR" Development of pneumonia versus atelectasis at the left lung base. Correlate clinically -BCx NTD Afebrile Leukopenia, SP Acute respiratory failure s/p Bipap- now on NC Recent Sepsis 2ry to UTI (09/2018) -u/a wbc 30-40, nit neg, leuk +3; ucx >100K E.coli (R Cipro/Levo; otherwise) Recent Gram positive bacteremia, likely contaminant -10/10 BCx 09/24 S. hominis, S. epi; 10/13 Bcx Neg -2d Echo: no vegetations seen Recent Infected Sacral decubitus ulcer ( Path findings : acute OM ) Wnd CX : PsA (R Ceftazidime; I Cefepime; S Cipro/levo, meropenem) -10/13 SP Excision of sacral pressure ulcer with coccygectomy and ostectomy. 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 No contrast enhancement to suggest recurrent tumor is evident currently. There is evidence of old peripheral hemorrhage, presumably related to the prior surgery. 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 Negative for acute intracranial bleed, mass effect, infarct, or contrast enhancing lesion. 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 HTN HLD BPH Dm2 s/p appendectomy s/p tonsillectomy CAD seizure disorder SNF resident sacral decubitus ulcer, FTT s/p PEG 11/05/18 Plan: -Continue empiric IV Vancomycin #2 for PNA pending sp cx -Switch Empiric Cefepime #2 to MEropenem for UTI and pNA (abx d #24/42 for PsA sacral OM) -11/10 SP IV Vancomycin #32, Zosyn #23 - 10/19 Sp Ceftriaxone #8 -10/12/18 SP Cefepime #3 -sp cx -f/u cx -Monitor CBC/CMP, temperatures -wound care per surgical team -ICU/PEG care -aspiration precautions Thank you for this consulation. [facility] continue to follow along with you. Discussed with Brandie Douglas M.D. November 12, 2018 12:22
[2018-11-12] MEDS: Midodrine 10mg tab ORAL SCH ×2 (12:41→18:08)
[2018-11-12] MEDS ORDERED: Meropenem 1 GM in NS 55 ML IVPB SCH (14:00)
--- NOTE | 2018-11-12 14:00 | NUR ---
NURSE NOTES: Patient pulled out Subclavian TLC. R hand 20 inserted. Patent flushing. Fluids connected. Levophed titrated off. BP stable.
--- NOTE | 2018-11-12 15:35 | NUR ---
Social Service Note SW familiar with patient from previous admissions. Code status occurred multiple times with patient sons. 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 Patient will return to [facility] upon discharge. Possible hospice. Will continue to monitor and assist as needed.
--- NOTE | 2018-11-12 16:00 | NUR ---
NURSE NOTES: VSS. No distress noted. Will continue plan of care.
--- NOTE | 2018-11-12 17:02 | Surgery Progress Note ---
Surgery Progress Note Subjective Procedure Performed left subclavian central venous catheter insertion Additional Comments patient ill appearing in ICU labs noted exam stable. line okay Objective Last 24 Hour Vital Signs Date Time Temp Pulse Resp B/P (MAP) Pulse Ox O2 Delivery O2 Flow Rate FiO2 11/12/18 16:00 4.0 11/12/18 16:00 Bi-pap 11/12/18 16:00 108 11/12/18 16:00 96 11/12/18 12:00 112 11/12/18 12:00 Bi-pap 11/12/18 09:22 4 Nasal Cannula 4.0 36 11/12/18 08:44 105 96/58 11/12/18 08:00 Bi-pap 11/12/18 08:00 102 23 100 11/12/18 08:00 110 11/12/18 07:00 96/50 11/12/18 06:31 97 16 100 Facial 50 11/12/18 06:00 122/45 11/12/18 05:10 110 17 100 Facial 50 11/12/18 05:00 94 16 136/73 (94) 100 11/12/18 05:00 136/73 11/12/18 04:45 97 16 135/71 (92) 100 11/12/18 04:30 91 16 136/70 (92) 100 11/12/18 04:15 91 15 138/64 (88) 100 11/12/18 04:00 Bi-pap 11/12/18 04:00 138/64 11/12/18 04:00 94 11/12/18 04:00 50 11/12/18 04:00 98.6 94 16 129/64 (85) 100 11/12/18 03:45 95 17 127/66 (86) 100 11/12/18 03:30 93 16 112/67 (82) 100 11/12/18 03:23 87/54 11/12/18 03:15 103 16 99/66 (77) 100 11/12/18 03:12 104 16 100 Facial 50 11/12/18 03:00 113 138/82 (100) 100 11/12/18 02:45 112 17 89/70 (76) 100 11/12/18 02:30 99 16 150/71 (97) 100 11/12/18 02:15 107 18 150/76 (100) 99 11/12/18 02:00 101 16 130/73 (92) 99 11/12/18 02:00 150/76 11/12/18 01:45 98 16 136/68 (90) 100 11/12/18 01:30 95 17 135/68 (90) 100 11/12/18 01:15 106 77/49 (58) 100 11/12/18 01:11 107 16 100 Facial 60 11/12/18 01:00 108 28 111/60 (77) 100 11/12/18 01:00 150/76 11/12/18 00:45 108 17 99/61 (74) 100 11/12/18 00:30 109 25 97/64 (75) 100 11/12/18 00:15 107 15 119/62 (81) 100 11/12/18 00:00 98.0 113 26 97/64 (75) 100 11/12/18 00:00 60 11/12/18 00:00 Bi-pap 11/12/18 00:00 108 11/12/18 00:00 112/62 11/11/18 23:45 115 24 109/67 (81) 100 11/11/18 23:30 116 23 111/63 (79) 100 11/11/18 23:15 115 21 106/62 (77) 100 11/11/18 23:04 115 24 100 Facial 60 11/11/18 23:00 113 22 103/67 (79) 100 11/11/18 23:00 106/62 11/11/18 22:45 115 25 110/61 (77) 100 11/11/18 22:30 116 31 96/63 (74) 100 11/11/18 22:15 114 30 112/63 (79) 100 11/11/18 22:15 114 30 112/63 (79) 100 11/11/18 22:00 112/63 11/11/18 22:00 Bi-pap 11/11/18 22:00 116 25 102/59 (73) 100 11/11/18 21:45 118 27 106/62 (77) 100 11/11/18 21:30 117 23 86/52 (63) 100 11/11/18 21:15 119 28 90/57 (68) 100 11/11/18 21:00 117 24 108/65 (79) 100 11/11/18 21:00 86/57 11/11/18 21:00 110 84/40 11/11/18 20:59 118 20 100 Facial 70 11/11/18 20:49 84/47 11/11/18 20:45 117 24 78/49 (59) 100 11/11/18 20:30 105 18 182/84 (116) 100 11/11/18 20:15 124 20 74/50 (58) 100 11/11/18 20:00 70 11/11/18 20:00 98.4 126 22 74/45 (55) 100 11/11/18 20:00 129 11/11/18 20:00 Bi-pap 11/11/18 19:04 135 22 100 Facial 80 11/11/18 19:00 134 26 82/57 (65) 100 11/11/18 18:00 137 27 75/52 (60) 100 11/11/18 17:30 98.0 139 25 86/56 (66) 100 11/11/18 17:07 139 16 100 Facial 80 I&O Intake and Output 11/11/18 11/12/18 19:00 07:00 Intake Total 770 ml 1983.250 ml Balance 770 ml 1983.250 ml Intake Free Water 160 ml 300 ml IV Total 250 ml 1394.250 ml Tube Feeding 360 ml 290 ml # Voids 435 # Bowel Movements 1 4 Dressing: saturated Wound: other Drains: other Cardiovascular: RSR Respiratory: clear, decreased breath sounds Abdomen: soft, present bowel sounds, non-distended Extremities: no tenderness, no cyanosis Laboratory Tests Test 11/11/18 23:45 11/12/18 04:10 11/12/18 07:35 Lactic Acid Level 1.70 mmol/L (0.4-2.0) White Blood Count 5.7 K/UL (4.8-10.8) # Red Blood Count 2.66 M/UL (4.70-6.10) L Hemoglobin 8.3 G/DL (14.2-18.0) L Hematocrit 24.3 % (42.0-52.0) L Mean Corpuscular Volume 91 FL (80-99) Mean Corpuscular Hemoglobin 31.1 PG (27.0-31.0) H Mean Corpuscular Hemoglobin Concent 34.1 G/DL (32.0-36.0) Red Cell Distribution Width 14.0 % (11.6-14.8) Platelet Count 154 K/UL (150-450) Mean Platelet Volume 7.1 FL (6.5-10.1) Neutrophils (%) (Auto) % (45.0-75.0) Lymphocytes (%) (Auto) % (20.0-45.0) Monocytes (%) (Auto) % (1.0-10.0) Eosinophils (%) (Auto) % (0.0-3.0) Basophils (%) (Auto) % (0.0-2.0) Differential Total Cells Counted 100 Neutrophils % (Manual) 62 % (45-75) Lymphocytes % (Manual) 7 % (20-45) L Monocytes % (Manual) 4 % (1-10) Eosinophils % (Manual) 0 % (0-3) Basophils % (Manual) 0 % (0-2) Band Neutrophils 27 % (0-8) H Platelet Estimate Adequate Platelet Morphology Normal Anisocytosis 1+ Sodium Level 135 MMOL/L (136-145) L Potassium Level 3.6 MMOL/L (3.5-5.1) Chloride Level 99 MMOL/L (98-107) Carbon Dioxide Level 28 MMOL/L (21-32) Anion Gap 8 mmol/L (5-15) Blood Urea Nitrogen 19 mg/dL (7-18) H Creatinine 0.6 MG/DL (0.55-1.30) Estimat Glomerular Filtration Rate > 60 mL/min (>60) Glucose Level 366 MG/DL (74-106) #H Calcium Level 7.4 MG/DL (8.5-10.1) L Phosphorus Level 2.4 MG/DL (2.5-4.9) L Magnesium Level 1.4 MG/DL (1.8-2.4) L Total Bilirubin 1.1 MG/DL (0.2-1.0) H Direct Bilirubin 0.6 MG/DL (0.0-0.3) H Aspartate Amino Transf (AST/SGOT) 28 U/L (15-37) Alanine Aminotransferase (ALT/SGPT) 22 U/L (12-78) Alkaline Phosphatase 80 U/L (46-116) Troponin I 0.869 ng/mL (0.000-0.056) Pro-B-Type Natriuretic Peptide 5426 pg/mL (0-125) H Total Protein 4.2 G/DL (6.4-8.2) L Albumin 1.3 G/DL (3.4-5.0) L Globulin 2.9 g/dL Albumin/Globulin Ratio 0.4 (1.0-2.7) L Arterial Blood pH 7.655 (7.350-7.450) Arterial Blood Partial Pressure CO2 22.0 mmHg (35.0-45.0) *L Arterial Blood Partial Pressure O2 188.1 mmHg (75.0-100.0) H Arterial Blood HCO3 24.0 mmol/L (22.0-26.0) Arterial Blood Oxygen Saturation 99.0 % (95-100) Arterial Blood Base Excess 3.7 (-2-2) H Martell Test Positive Plan Problems: (1) Sacral decubitus ulcer Assessment & Plan: Pt presented on admission with 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 Base is viable with some slough .Bone is palpable. undermining clockwise 9-6o'clock ,at 12 o'clock base of wound is necrotic.mixed slough and soft necrosis noted along borders. Periwound erythematous and indurated.Mild odor resolved after cleansing of wound. No exudate noted. Both heels are firm and blanchable. No evidence of skin breakdown noted to all other bony prominences. Tx.Plan: Cleanse wound with Saline. pleurogel q3day .Apply Triad paste periwound. Cover with Optifoam drsg Apply Cavilon Skin Barrier to both heels .Cover each heel with Optifoam drsg. Change every 7 days and prn Apply Cavilon Skin Barrier to both hips. Cover each hip with Optifoam drsg. Change every 7 days and prn. Air fluidized mattress. Reposition at least every 2hours or as tolerated. Off-load heels with pillow. Can plan for continued care based on above recommendations when discharged. (2) Severe malnutrition Assessment & Plan: DAILY ESTIMATED NEEDS: Needs based on Advanced wound, wt loss/ 57kg 30-35 kcals/kg 5334-5280 total kcals 1.5-2.0 g protein/kg 86-114 g total protein 25-30 mL/kg 1530-7969 total fluid mLs NUTRITION DIAGNOSIS: * Increased kcal/prot needs R/T wound healing, wt loss as evidenced by sacral stage 4 wound, possible significant wt loss of 19lbs/ 13.4% in ~1 month. * Swallowing difficulty R/T dysphagia w/ h/o brain tumor and CVA as evidenced by s/p recent PEG placement, on GT feeding. CURRENT TF:Glucerna 1.2 @ 30ml/hr x 24 hrs- meets 51% est kcal, 50% est prot needs ENTERAL NUTRITION RECOMMENDATIONS: Glucerna 1.5 @ 50ml/hr x 24 hrs to provide 1200ml, 1800kcal, 99g prot, 911ml free water * Rec TF change to Glucerna 1.5 for increased kcal/prot needs * Initiate Glucerna 1.5 @ 20ml/hr x 6 hrs, advance 10ml q 4-6 hrs as tolerated to goal rate. * HOB over 30 degrees/ water fluhs per MD ADDITIONAL RECOMMENDATIONS: * Calibrated bedscale wt for accurate CBW- w/ added P200 mattress * Check lytes daily w/ TF, replete as needed * Wound healing: add Vit C 500mg BID and Ziyad 1pkt BID * Monitor BGs closely, need for tighter regimen (BGs in the 200's) . (3) Failure to thrive (4) Sepsis Assessment & Plan: Cont IV Abx Care as per ICU Harry Rivas November 12, 2018 17:02
--- NOTE | 2018-11-12 18:00 | NUR ---
NURSE NOTES: No new orders at this time. Will continue plan of care.
--- NOTE | 2018-11-12 18:11 | Internal Med Progress Note ---
Subjective Date of Service: November 12, 2018 Physician Name Jesus Kidd Attending Physician Camacho Braun MD Current Medications Medications (Trade) Dose Ordered Sig/Chace Route PRN Reason Start Time Stop Time Status Last Admin Dose Admin Chlorhexidine Gluconate (Susannah-Hex 2%) 1 applic DAILY@2000 TOPIC 11/11/18 20:00 12/10/18 19:59 11/11/18 20:49 Dextrose (Dextrose 50%) 25 ml Q30M PRN IV Hypoglycemia 11/11/18 18:00 12/10/18 14:29 Dextrose (Dextrose 50%) 50 ml Q30M PRN IV Hypoglycemia 11/11/18 18:00 12/11/18 17:59 Heparin Sodium (Porcine) (Heparin 5000 units/ml) 5,000 units EVERY 12 HOURS SUBQ 11/11/18 21:00 12/10/18 20:59 11/12/18 08:57 Insulin Aspart (NovoLOG) EVERY 6 HOURS SUBQ 11/11/18 18:00 12/10/18 17:59 11/12/18 12:00 Lorazepam (Ativan 2mg/ml 1ml) 0.5 mg Q4H PRN IV For Anxiety 11/11/18 18:30 11/17/18 14:29 Meropenem 1 gm/ Sodium Chloride 55 ml @ 110 mls/hr Q8HR IVPB 11/12/18 14:00 11/17/18 13:59 11/12/18 14:14 Midodrine (Pro-Amatine) 10 mg THREE TIMES A DAY ORAL 11/12/18 13:00 12/12/18 12:59 11/12/18 12:41 Morphine Sulfate (Morphine Sulfate) 1 mg Q4H PRN IVP For Pain 11/11/18 18:30 11/17/18 14:29 Norepinephrine Bitartrate 4 mg/ Dextrose 250 ml @ 0 mls/hr Q24H IV 11/11/18 20:15 12/11/18 20:14 11/12/18 03:23 Ondansetron HCl (Zofran) 4 mg Q6H PRN IVP Nausea & Vomiting 11/11/18 18:30 12/10/18 18:29 Poloxamer (PluroGel) 1 applic Q3D TOPIC 11/14/18 16:00 12/11/18 15:59 Sitagliptin Phosphate (Januvia) 50 mg DAILY ORAL 11/12/18 09:00 12/11/18 08:59 11/12/18 08:51 Sodium Chloride 1,000 ml @ 100 mls/hr Q10H IV 11/12/18 11:08 12/11/18 11:07 11/12/18 11:10 Tamsulosin HCl (Flomax) 0.4 mg BEDTIME ORAL 11/11/18 21:00 12/10/18 20:59 11/11/18 21:00 Vancomycin HCl (Vanco rx to dose) 1 ea DAILY PRN MISC Per rx protocol 11/11/18 18:30 12/11/18 18:29 Vancomycin HCl 750 mg/Sodium Chloride 275 ml @ 183.333 mls/hr Q12H IVPB 11/12/18 08:00 11/17/18 07:59 11/11/18 20:52 Zinc Sulfate (Zinc Sulfate) 220 mg DAILY ORAL 11/13/18 09:00 11/23/18 08:59 Allergies: Coded Allergies: No Known Allergies (Unverified , 09/27/18) Subjective 68 YO M admitted with respiratory failure. Now Pneumonia and sinus tachycardia. Cover for Int Med-Dr Braun. On BIPAP. ICU Objective Last Vital Signs Date Time Temp Pulse Resp B/P (MAP) Pulse Ox O2 Delivery O2 Flow Rate FiO2 11/12/18 16:00 4.0 11/12/18 16:00 Bi-pap 11/12/18 16:00 108 11/12/18 09:22 4 36 11/12/18 08:44 96/58 11/12/18 08:00 23 11/12/18 04:00 98.6 Laboratory Tests Test 11/11/18 23:45 11/12/18 04:10 11/12/18 07:35 Lactic Acid Level 1.70 mmol/L (0.4-2.0) White Blood Count 5.7 K/UL (4.8-10.8) # Red Blood Count 2.66 M/UL (4.70-6.10) L Hemoglobin 8.3 G/DL (14.2-18.0) L Hematocrit 24.3 % (42.0-52.0) L Mean Corpuscular Volume 91 FL (80-99) Mean Corpuscular Hemoglobin 31.1 PG (27.0-31.0) H Mean Corpuscular Hemoglobin Concent 34.1 G/DL (32.0-36.0) Red Cell Distribution Width 14.0 % (11.6-14.8) Platelet Count 154 K/UL (150-450) Mean Platelet Volume 7.1 FL (6.5-10.1) Neutrophils (%) (Auto) % (45.0-75.0) Lymphocytes (%) (Auto) % (20.0-45.0) Monocytes (%) (Auto) % (1.0-10.0) Eosinophils (%) (Auto) % (0.0-3.0) Basophils (%) (Auto) % (0.0-2.0) Differential Total Cells Counted 100 Neutrophils % (Manual) 62 % (45-75) Lymphocytes % (Manual) 7 % (20-45) L Monocytes % (Manual) 4 % (1-10) Eosinophils % (Manual) 0 % (0-3) Basophils % (Manual) 0 % (0-2) Band Neutrophils 27 % (0-8) H Platelet Estimate Adequate Platelet Morphology Normal Anisocytosis 1+ Sodium Level 135 MMOL/L (136-145) L Potassium Level 3.6 MMOL/L (3.5-5.1) Chloride Level 99 MMOL/L (98-107) Carbon Dioxide Level 28 MMOL/L (21-32) Anion Gap 8 mmol/L (5-15) Blood Urea Nitrogen 19 mg/dL (7-18) H Creatinine 0.6 MG/DL (0.55-1.30) Estimat Glomerular Filtration Rate > 60 mL/min (>60) Glucose Level 366 MG/DL (74-106) #H Calcium Level 7.4 MG/DL (8.5-10.1) L Phosphorus Level 2.4 MG/DL (2.5-4.9) L Magnesium Level 1.4 MG/DL (1.8-2.4) L Total Bilirubin 1.1 MG/DL (0.2-1.0) H Direct Bilirubin 0.6 MG/DL (0.0-0.3) H Aspartate Amino Transf (AST/SGOT) 28 U/L (15-37) Alanine Aminotransferase (ALT/SGPT) 22 U/L (12-78) Alkaline Phosphatase 80 U/L (46-116) Troponin I 0.869 ng/mL (0.000-0.056) Pro-B-Type Natriuretic Peptide 5426 pg/mL (0-125) H Total Protein 4.2 G/DL (6.4-8.2) L Albumin 1.3 G/DL (3.4-5.0) L Globulin 2.9 g/dL Albumin/Globulin Ratio 0.4 (1.0-2.7) L Arterial Blood pH 7.655 (7.350-7.450) Arterial Blood Partial Pressure CO2 22.0 mmHg (35.0-45.0) *L Arterial Blood Partial Pressure O2 188.1 mmHg (75.0-100.0) H Arterial Blood HCO3 24.0 mmol/L (22.0-26.0) Arterial Blood Oxygen Saturation 99.0 % (95-100) Arterial Blood Base Excess 3.7 (-2-2) H Martell Test Positive Microbiology Date/Time Source Procedure Growth Status 11/10/18 15:05 Blood Blood Culture - Preliminary NO GROWTH AFTER 24 HOURS Resulted 11/10/18 14:48 Blood Blood Culture - Preliminary NO GROWTH AFTER 24 HOURS Resulted 11/10/18 14:30 Urine,Clean Catch Urine Culture - Preliminary Gram Negative Cecil Resulted Intake and Output 11/11/18 11/12/18 19:00 07:00 Intake Total 770 ml 1983.250 ml Balance 770 ml 1983.250 ml Intake Free Water 160 ml 300 ml IV Total 250 ml 1394.250 ml Tube Feeding 360 ml 290 ml # Voids 435 # Bowel Movements 1 4 Assessment/Plan Assessment/Plan ASSESSMENT: This is a 68-year-old male. 1. Altered mental status. 2. Respiratory failure. 3. Hypertension. 4. Dysphagia. 5. Failure to thrive. 6. Encephalopathy. 7. Brain cancer. 8. Seizure disorder. 9. Diabetes type 2. 10. Cerebrovascular disease. 11. Right hemiparesis. 12. Hypertension. 13. Coronary artery disease. 14. Expressive aphasia. 15. Pneumonia TREATMENT: 1. Respiratory failure. BIPAP. Pulmonary consultation has been obtained with Dr. Raul Feng. The patient is currently on a non-rebreather mask. We will follow recommendations of Pulmonary. 2. Altered mental status is probably secondary to hypoxia as above. 3. Dysphagia. The patient is status post PEG placement on 11/05/2018. 4. Failure to thrive. 5. Encephalopathy. 6. Brain cancer. 7. Seizure disorder. Continue Depakote and Vimpat as above. 8. Diabetes type 2. Continue Humalog sliding scale as above. 9. Cerebrovascular disease. 10. Right hemiparesis. 11. Hypertension. 12. Coronary artery disease. 13. Expressive aphasia. 14. Continue vanco and meropenem per Inf Dis 15. D/W son Charli at bedside Jesus Kidd MD November 12, 2018 18:11
--- NOTE | 2018-11-12 19:18 | NUR ---
HAND-OFF: Report given to Mila MURILLO using SBAR. VSS. No distres noted.
--- NOTE | 2018-11-12 19:30 | NUR ---
NURSE NOTES: Received report from Sharoni RN. Patient awake alert with slurred speech. Off Levophed. On midodrine tablet. on 4 L NC saturating 100%. Right wrist #20 intact running NS at 100cc/hr. No s/s of acute distress. HOB elevated. ST on teletypesetter monitor. Glucerna 1.5 at 30 cc/hr no residual. Mota draining. Lung sounds diminished bilaterally. Contact isolation maintained and observed. Will continue plan of care.
[2018-11-12] MEDS: Dyna-Hex 2% Top Sol 2oz TOPIC SCH (20:00)
--- NOTE | 2018-11-12 20:23 | NUR ---
TRANSFER TO FLOOR: Patient transferred to [address] [place] [address], per . Report given to . No Belongings and medications given to . Family and or S/O informed of transfer.
--- NOTE | 2018-11-12 20:24 | NUR ---
NURSE NOTES: Pt transferred to med surg from ICU to bed 415-1. Patient awake, yet confused, slightly slurred speech, mostly nods in agreement, withdraws to pain , on 4 L NC saturating at 97%. Right wrist #20 intact, yet IV was not fully on. Resumed and flushed and now IV patent running NS at 100ml./h. No s/s of acute distress. HOB elevated. GT tube clamped. Carroll draining, carroll anchor in place. Lung sounds diminished bilaterally. No belongings, HOB elevated, aspiration precautions maintained. Contact isolation maintained and observed. Will continue plan of care, monitor BP which was reported as low. Upon entrance to the unit 100/63. Will continue to monitor.
[2018-11-12] MEDS ORDERED: Morphine Sulfate 2mg/ml Inj(IV/IM USE ONLY) IVP PRN (20:30)
[2018-11-12] MEDS ORDERED: LORazepam Inj 2mg/ml 1ml IV PRN (20:30)
[2018-11-12] MEDS: Tamsulosin 0.4mg cap ORAL SCH ×2 (20:51→21:00)
[2018-11-12] MEDS: Meropenem 1 GM in NS 55 ML IVPB SCH (21:16)
--- NOTE | 2018-11-12 21:22 | NUR ---
RESPIRATORY NOTE: Patient was moved to 4th floor [id number] bed 1 which room does not have a red outlet for Bipap. Patient on 4L nasal canula sating 98%. I told nurse to move patient to room with red outlet for Bipap use. RN made aware. Will continue to monitor.
--- NOTE | 2018-11-12 21:30 | NUR ---
NURSE NOTES: Informed charge nurse that respiratory said we need to move patient to a room with a red outlet as patient has bipap q hs and prn. At this point satting well but may need it in the future.
[2018-11-13] MEDS: NovoLOG Insulin Flexpen SUBQ SCH ×5 (01:09→23:17)
[2018-11-13] MEDS: Meropenem 1 GM in NS 55 ML IVPB SCH ×3 (05:15→22:20)
--- NOTE | 2018-11-13 07:00 | NUR ---
NURSE NOTES: pt awake alert, no distress. no residual on gtf , hob elevated 30 degrees, dressing intact, iv patent and intact, call light within reach. will monitor. bed in lowest position locked.
--- NOTE | 2018-11-13 07:33 | NUR ---
HAND-OFF: Report given to CHIDI Liu.
[2018-11-13 08:00] VITALS: BP 109/70
[2018-11-13] MEDS ORDERED: Vancomycin 750 MG in NS 275 ML IVPB SCH ×2 (08:00→09:00)
[2018-11-13] MEDS: sitaGLIPtin 50mg tab ORAL SCH (08:10)
[2018-11-13] MEDS: Zinc Sulfate 220mg cap ORAL SCH (08:10)
[2018-11-13] MEDS: Midodrine 10mg tab ORAL SCH ×3 (08:10→17:16)
[2018-11-13] MEDS: Heparin 5000 units/ml inj SUBQ SCH ×2 (08:14→20:52)
[2018-11-13] MEDS ORDERED: Zinc Sulfate 220mg cap ORAL SCH (09:00)
--- NOTE | 2018-11-13 11:43 | Cardiac Electrophysiology PN ---
Assessment/Plan Assessment/Plan 1. Sinus tachycardia at rate of 140 likely secondary to underlying respiratory sepsis. Was on BiPAP. ECG no acute ST-T changes 2. Troponin elevation at 0.297 increased to 0.86. The patient does not have renal failure. Echocardiogram pending. 3. S/P Septic shock . Echo EF 45-50%. On iv Abx per ID 4. Diabetes. 5. History of CVA. 6. Dysphagia, status post PEG placement. 7. Status post sacral decubitus debridement. 8. Seizure disorder, on Depakote. 9. Hypertension. Losartan and Coreg were DCed 10. Brain tumor, status post surgery. 11. DNR DW RN Subjective Subjective Transferred to nonmonitored bed. Nonverbal. Objective Last 24 Hour Vital Signs Date Time Temp Pulse Resp B/P (MAP) Pulse Ox O2 Delivery O2 Flow Rate FiO2 11/13/18 08:00 98.6 100 18 109/70 (83) 97 11/13/18 08:00 96 Nasal Cannula 4.0 36 11/13/18 07:56 Bi-pap 11/13/18 04:55 111 20 97 11/13/18 04:24 4.0 11/13/18 03:41 Bi-pap 11/13/18 03:07 110 20 99 11/13/18 00:32 105 19 100 Facial 50 11/13/18 00:00 Bi-pap 11/13/18 00:00 50 11/12/18 20:20 98.4 100 18 103/63 (76) 97 11/12/18 20:06 100 Nasal Cannula 4.0 36 11/12/18 20:00 Bi-pap 11/12/18 20:00 4.0 11/12/18 20:00 100 11/12/18 16:00 4.0 11/12/18 16:00 Bi-pap 11/12/18 16:00 108 11/12/18 16:00 96 11/12/18 12:00 112 11/12/18 12:00 Bi-pap Intake and Output 11/12/18 11/13/18 19:00 07:00 Intake Total 360 ml 1340 ml Output Total 350 ml Balance 360 ml 990 ml IV Total 1010 ml Tube Feeding 360 ml 330 ml Output Urine Total 350 ml # Voids 750 50 # Bowel Movements 3 Laboratory Tests Test 11/13/18 06:45 Vancomycin Level Trough 0.8 ug/mL (5.0-12.0) L Microbiology Date/Time Source Procedure Growth Status 11/10/18 15:05 Blood Blood Culture - Preliminary NO GROWTH AFTER 48 HOURS Resulted 11/10/18 14:48 Blood Blood Culture - Preliminary NO GROWTH AFTER 48 HOURS Resulted 11/12/18 18:00 Sputum Induced Gram Stain - Final Resulted 11/12/18 18:00 Sputum Induced Sputum Culture Pending Resulted 11/10/18 14:30 Urine,Clean Catch Urine Culture - Final Pseudomonas Aeruginosa Complete Objective HEAD AND NECK: No JVD on Nasal cannula . LUNGS: Coarse rhonchi bilaterally. CARDIOVASCULAR: Regular S1, S2 with no gallop or murmur. ABDOMEN: Soft. Status post G-tube. EXTREMITIES: No pitting edema. Huy Valladares MD November 13, 2018 11:43
--- NOTE | 2018-11-13 11:45 | NUR ---
NURSE NOTES: pt is pulling n gt and iv and removing nasal cannula multiple times, reorientation ineffective. made aware rec'd order for restraint on left wrist.
--- NOTE | 2018-11-13 11:53 | Pulmonology Progress Note ---
Assessment/Plan Problems: (1) Acute encephalopathy (2) Uncontrolled seizures (3) Sacral decubitus ulcer (4) Severe malnutrition (5) History of CVA (cerebrovascular accident) (6) Brain tumor (7) Oligodendroglioma (8) Hypertension (9) Diabetes mellitus (10) Anemia Assessment/Plan mental status better needs restrains, since pulling on Gtube no more seizures for the last 24 hours getting abx every 3 hours Subjective ROS Limited/Unobtainable: Yes Interval Events: awake, confused Constitutional: Reports: no symptoms HEENT: Repors: no symptoms Respiratory: Reports: no symptoms Allergies: Coded Allergies: No Known Allergies (Unverified , 09/27/18) Objective Last 24 Hour Vital Signs Date Time Temp Pulse Resp B/P (MAP) Pulse Ox O2 Delivery O2 Flow Rate FiO2 11/13/18 08:00 98.6 100 18 109/70 (83) 97 11/13/18 08:00 96 Nasal Cannula 4.0 36 11/13/18 07:56 Bi-pap 11/13/18 04:55 111 20 97 11/13/18 04:24 4.0 11/13/18 03:41 Bi-pap 11/13/18 03:07 110 20 99 11/13/18 00:32 105 19 100 Facial 50 11/13/18 00:00 Bi-pap 11/13/18 00:00 50 11/12/18 20:20 98.4 100 18 103/63 (76) 97 11/12/18 20:06 100 Nasal Cannula 4.0 36 11/12/18 20:00 Bi-pap 11/12/18 20:00 4.0 11/12/18 20:00 100 11/12/18 16:00 4.0 11/12/18 16:00 Bi-pap 11/12/18 16:00 108 11/12/18 16:00 96 11/12/18 12:00 112 11/12/18 12:00 Bi-pap Intake and Output 11/12/18 11/13/18 19:00 07:00 Intake Total 360 ml 1340 ml Output Total 350 ml Balance 360 ml 990 ml IV Total 1010 ml Tube Feeding 360 ml 330 ml Output Urine Total 350 ml # Voids 750 50 # Bowel Movements 3 General Appearance: cachetic HEENT: normocephalic, atraumatic Respiratory/Chest: chest wall non-tender, lungs clear Cardiovascular: normal peripheral pulses, normal rate Abdomen: normal bowel sounds, no organomegaly Extremities: no cyanosis Skin: no lesions Microbiology Date/Time Source Procedure Growth Status 11/10/18 15:05 Blood Blood Culture - Preliminary NO GROWTH AFTER 48 HOURS Resulted 11/10/18 14:48 Blood Blood Culture - Preliminary NO GROWTH AFTER 48 HOURS Resulted 11/12/18 18:00 Sputum Induced Gram Stain - Final Resulted 11/12/18 18:00 Sputum Induced Sputum Culture Pending Resulted 11/10/18 14:30 Urine,Clean Catch Urine Culture - Final Pseudomonas Aeruginosa Complete Laboratory Tests 11/13/18 06:45: Vancomycin Level Trough 0.8L Current Medications Medications (Trade) Dose Ordered Sig/Chace Route PRN Reason Start Time Stop Time Status Last Admin Dose Admin Chlorhexidine Gluconate (Susannah-Hex 2%) 1 applic DAILY@2000 TOPIC 11/13/18 20:00 12/10/18 19:59 Dextrose (Dextrose 50%) 25 ml Q30M PRN IV Hypoglycemia 11/12/18 20:30 12/10/18 14:29 Dextrose (Dextrose 50%) 50 ml Q30M PRN IV Hypoglycemia 11/12/18 20:30 12/11/18 17:59 Heparin Sodium (Porcine) (Heparin 5000 units/ml) 5,000 units EVERY 12 HOURS SUBQ 11/12/18 21:00 12/10/18 20:59 11/13/18 08:14 Insulin Aspart (NovoLOG) EVERY 6 HOURS SUBQ 11/13/18 00:00 12/10/18 17:59 11/13/18 05:51 Lorazepam (Ativan 2mg/ml 1ml) 0.5 mg Q4H PRN IV For Anxiety 11/12/18 20:30 11/17/18 20:29 Meropenem 1 gm/ Sodium Chloride 55 ml @ 110 mls/hr Q8HR IVPB 11/12/18 22:00 11/17/18 13:59 11/13/18 05:15 Midodrine (Pro-Amatine) 10 mg THREE TIMES A DAY ORAL 11/13/18 09:00 12/12/18 12:59 11/13/18 08:10 Morphine Sulfate (Morphine Sulfate) 1 mg Q4H PRN IVP For Pain 11/12/18 20:30 11/17/18 20:29 Ondansetron HCl (Zofran) 4 mg Q6H PRN IVP Nausea & Vomiting 11/12/18 20:30 12/12/18 20:29 Poloxamer (PluroGel) 1 applic Q3D TOPIC 11/14/18 16:00 12/11/18 15:59 Sitagliptin Phosphate (Januvia) 50 mg DAILY ORAL 11/13/18 09:00 12/11/18 08:59 11/13/18 08:10 Sodium Chloride 1,000 ml @ 100 mls/hr Q10H IV 11/12/18 20:30 12/11/18 11:07 11/13/18 05:50 Tamsulosin HCl (Flomax) 0.4 mg BEDTIME ORAL 11/12/18 21:00 12/10/18 20:59 Vancomycin HCl (Vanco rx to dose) 1 ea DAILY PRN MISC Per rx protocol 11/12/18 20:30 12/12/18 20:29 Vancomycin HCl 750 mg/Sodium Chloride 275 ml @ 183.333 mls/hr Q12HR IVPB 11/13/18 21:00 11/18/18 20:59 Zinc Sulfate (Zinc Sulfate) 220 mg DAILY ORAL 11/13/18 09:00 11/23/18 08:59 11/13/18 08:10 Raul Feng MD November 13, 2018 11:53
[2018-11-13 11:55] VITALS: BP 110/72
--- NOTE | 2018-11-13 12:07 | Infectious Diseases Prog Note ---
Assessment/Plan Assessment/Plan Abx: IV Vancomycin 11/11- Cefepime 11/11- Zosyn x1 11/10 Assessment: Septic Shock- 2ry to UTI and PNA- n ow off pressors -u/a wbc 10-15, nit neg, leuk +3; ucx 50-60k Psa (dsouza S) -CXR" Development of pneumonia versus atelectasis at the left lung base. Correlate clinically -BCx NTD -sp cx p Afebrile Leukopenia, SP Acute respiratory failure s/p Bipap- now on NC Recent Sepsis 2ry to UTI (09/2018) -u/a wbc 30-40, nit neg, leuk +3; ucx >100K E.coli (R Cipro/Levo; otherwise) Recent Gram positive bacteremia, likely contaminant -10/10 BCx 09/24 S. hominis, S. epi; 10/13 Bcx Neg -2d Echo: no vegetations seen Recent Infected Sacral decubitus ulcer ( Path findings : acute OM ) Wnd CX : PsA (R Ceftazidime; I Cefepime; S Cipro/levo, meropenem) -10/13 SP Excision of sacral pressure ulcer with coccygectomy and ostectomy. 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 No contrast enhancement to suggest recurrent tumor is evident currently. There is evidence of old peripheral hemorrhage, presumably related to the prior surgery. 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 Negative for acute intracranial bleed, mass effect, infarct, or contrast enhancing lesion. 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 Willc continue to follow along with you. Discussed with RN Subjective Allergies: Coded Allergies: No Known Allergies (Unverified , 09/27/18) Subjective afebrile transferred out of ICU to [facility] Objective Vital Signs Last 24 Hour Vital Signs Date Time Temp Pulse Resp B/P (MAP) Pulse Ox O2 Delivery O2 Flow Rate FiO2 11/13/18 08:00 98.6 100 18 109/70 (83) 97 11/13/18 08:00 96 Nasal Cannula 4.0 36 11/13/18 07:56 Bi-pap 11/13/18 04:55 111 20 97 11/13/18 04:24 4.0 11/13/18 03:41 Bi-pap 11/13/18 03:07 110 20 99 11/13/18 00:32 105 19 100 Facial 50 11/13/18 00:00 Bi-pap 11/13/18 00:00 50 11/12/18 20:20 98.4 100 18 103/63 (76) 97 11/12/18 20:06 100 Nasal Cannula 4.0 36 11/12/18 20:00 Bi-pap 11/12/18 20:00 4.0 11/12/18 20:00 100 11/12/18 16:00 4.0 11/12/18 16:00 Bi-pap 11/12/18 16:00 108 11/12/18 16:00 96 11/12/18 12:00 112 11/12/18 12:00 Bi-pap Height (Feet): 5 Height (Inches): 6.00 Weight (Pounds): 150 Objective GENERAL: The patient is a well-developed and well-nourished male, in no apparent distress. HEENT: Eyes, pupils are equal and responsive to light and accommodation. Extraocular movements are intact. NECK: Supple without lymphadenopathy. CHEST: Lungs are clear to auscultation bilaterally without wheezes or rales. CARDIOVASCULAR: Regular rhythm and rate. S1 and S2 are normal without murmurs, rubs, or gallops. ABDOMEN: Soft, nontender, and nondistended. Positive bowel sounds. No evidence of hepatosplenomegaly. Currently, no rebound or guarding noted. EXTREMITIES: Negative for clubbing, cyanosis, or edema. NEUROLOGIC: Unable to assess. Microbiology Date/Time Source Procedure Growth Status 11/10/18 15:05 Blood Blood Culture - Preliminary NO GROWTH AFTER 48 HOURS Resulted 11/10/18 14:48 Blood Blood Culture - Preliminary NO GROWTH AFTER 48 HOURS Resulted 11/12/18 18:00 Sputum Induced Gram Stain - Final Resulted 11/12/18 18:00 Sputum Induced Sputum Culture Pending Resulted 11/10/18 14:30 Urine,Clean Catch Urine Culture - Final Pseudomonas Aeruginosa Complete Laboratory Tests Test 11/13/18 06:45 Vancomycin Level Trough 0.8 ug/mL (5.0-12.0) L Current Medications Medications (Trade) Dose Ordered Sig/Chace Route PRN Reason Start Time Stop Time Status Last Admin Dose Admin Chlorhexidine Gluconate (Susannah-Hex 2%) 1 applic DAILY@2000 TOPIC 11/13/18 20:00 12/10/18 19:59 Dextrose (Dextrose 50%) 25 ml Q30M PRN IV Hypoglycemia 11/12/18 20:30 12/10/18 14:29 Dextrose (Dextrose 50%) 50 ml Q30M PRN IV Hypoglycemia 11/12/18 20:30 12/11/18 17:59 Heparin Sodium (Porcine) (Heparin 5000 units/ml) 5,000 units EVERY 12 HOURS SUBQ 11/12/18 21:00 12/10/18 20:59 11/13/18 08:14 Insulin Aspart (NovoLOG) EVERY 6 HOURS SUBQ 11/13/18 00:00 12/10/18 17:59 11/13/18 11:52 Lorazepam (Ativan 2mg/ml 1ml) 0.5 mg Q4H PRN IV For Anxiety 11/12/18 20:30 11/17/18 20:29 Meropenem 1 gm/ Sodium Chloride 55 ml @ 110 mls/hr Q8HR IVPB 11/12/18 22:00 11/17/18 13:59 11/13/18 05:15 Midodrine (Pro-Amatine) 10 mg THREE TIMES A DAY ORAL 11/13/18 09:00 12/12/18 12:59 11/13/18 08:10 Morphine Sulfate (Morphine Sulfate) 1 mg Q4H PRN IVP For Pain 11/12/18 20:30 11/17/18 20:29 Ondansetron HCl (Zofran) 4 mg Q6H PRN IVP Nausea & Vomiting 11/12/18 20:30 12/12/18 20:29 Poloxamer (PluroGel) 1 applic Q3D TOPIC 11/14/18 16:00 12/11/18 15:59 Sitagliptin Phosphate (Januvia) 50 mg DAILY ORAL 11/13/18 09:00 12/11/18 08:59 11/13/18 08:10 Sodium Chloride 1,000 ml @ 100 mls/hr Q10H IV 11/12/18 20:30 12/11/18 11:07 11/13/18 05:50 Tamsulosin HCl (Flomax) 0.4 mg BEDTIME ORAL 11/12/18 21:00 12/10/18 20:59 Vancomycin HCl (Vanco rx to dose) 1 ea DAILY PRN MISC Per rx protocol 11/12/18 20:30 12/12/18 20:29 Vancomycin HCl 750 mg/Sodium Chloride 275 ml @ 183.333 mls/hr Q12HR IVPB 11/13/18 21:00 11/18/18 20:59 Zinc Sulfate (Zinc Sulfate) 220 mg DAILY ORAL 11/13/18 09:00 11/23/18 08:59 11/13/18 08:10 Brandie Carlos M.D. November 13, 2018 12:07
--- NOTE | 2018-11-13 13:12 | NUR ---
RD ASSESSMENT & RECOMMENDATIONS SEE CARE ACTIVITY FOR COMPLETE ASSESSMENT DAILY ESTIMATED NEEDS: Needs based on Advanced wound, wt loss/ 57kg 30-35 kcals/kg 2812-0109 total kcals 1.5-2.0 g protein/kg 86-114 g total protein 25-30 mL/kg 9137-0786 total fluid mLs NUTRITION DIAGNOSIS: * Increased kcal/prot needs R/T wound healing, wt loss as evidenced by sacral stage 4 wound, possible significant wt loss of 19lbs/ 13.4% in ~1 month. * Swallowing difficulty R/T dysphagia w/ h/o brain tumor and CVA as evidenced by s/p recent PEG placement, on GT feeding. CURRENT TF:Glucerna 1.2 @ 30ml/hr x 24 hrs- meets 51% est kcal, 50% est prot needs ENTERAL NUTRITION RECOMMENDATIONS: Glucerna 1.5 @ 50ml/hr x 24 hrs to provide 1200ml, 1800kcal, 99g prot, 911ml free water * Rec TF change to Glucerna 1.5 for increased kcal/prot needs * Initiate Glucerna 1.5 @ 20ml/hr x 6 hrs, advance 10ml q 4-6 hrs as tolerated to goal rate. * HOB over 30 degrees/ water flush per MD ADDITIONAL RECOMMENDATIONS: * Calibrated bedscale wt for accurate CBW- w/ added P200 mattress * Check lytes daily w/ TF, replete as needed * Wound healing: add Vit C 500mg BID and Ziyad 1pkt BID + Zn so4 220 mg daily x10 days. * Monitor BGs closely, need for tighter regimen (BGs in the 200's) -> consider long acting insulin
--- NOTE | 2018-11-13 13:45 | Surgery Progress Note ---
Surgery Progress Note Subjective Procedure Performed left subclavian central venous catheter insertion Additional Comments no acute events. stable. comfortable no complaints Objective Last 24 Hour Vital Signs Date Time Temp Pulse Resp B/P (MAP) Pulse Ox O2 Delivery O2 Flow Rate FiO2 11/13/18 11:55 98.6 94 18 110/72 (85) 97 11/13/18 08:00 98.6 100 18 109/70 (83) 97 11/13/18 08:00 96 Nasal Cannula 4.0 36 11/13/18 07:56 Bi-pap 11/13/18 04:55 111 20 97 11/13/18 04:24 4.0 11/13/18 03:41 Bi-pap 11/13/18 03:07 110 20 99 11/13/18 00:32 105 19 100 Facial 50 11/13/18 00:00 Bi-pap 11/13/18 00:00 50 11/12/18 20:20 98.4 100 18 103/63 (76) 97 11/12/18 20:06 100 Nasal Cannula 4.0 36 11/12/18 20:00 Bi-pap 11/12/18 20:00 4.0 11/12/18 20:00 100 11/12/18 16:00 4.0 11/12/18 16:00 Bi-pap 11/12/18 16:00 108 11/12/18 16:00 96 I&O Intake and Output 11/12/18 11/13/18 19:00 07:00 Intake Total 360 ml 1340 ml Output Total 350 ml Balance 360 ml 990 ml IV Total 1010 ml Tube Feeding 360 ml 330 ml Output Urine Total 350 ml # Voids 750 50 # Bowel Movements 3 Dressing: saturated Wound: clean Cardiovascular: RSR Respiratory: clear Abdomen: soft, present bowel sounds, other - feeding tube , non-distended Extremities: no tenderness, no cyanosis Laboratory Tests Test 11/13/18 06:45 Vancomycin Level Trough 0.8 ug/mL (5.0-12.0) L Plan Problems: (1) Sacral decubitus ulcer Assessment & Plan: Pt presented on admission with 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 Base is viable with some slough .Bone is palpable. undermining clockwise 9-6o'clock ,at 12 o'clock base of wound is necrotic.mixed slough and soft necrosis noted along borders. Periwound erythematous and indurated.Mild odor resolved after cleansing of wound. No exudate noted. Both heels are firm and blanchable. No evidence of skin breakdown noted to all other bony prominences. Tx.Plan: Cleanse wound with Saline. pleurogel q3day .Apply Triad paste periwound. Cover with Optifoam drsg Apply Cavilon Skin Barrier to both heels .Cover each heel with Optifoam drsg. Change every 7 days and prn Apply Cavilon Skin Barrier to both hips. Cover each hip with Optifoam drsg. Change every 7 days and prn. Air fluidized mattress. Reposition at least every 2hours or as tolerated. Off-load heels with pillow. Can plan for continued care based on above recommendations when discharged. (2) Severe malnutrition Assessment & Plan: DAILY ESTIMATED NEEDS: Needs based on Advanced wound, wt loss/ 57kg 30-35 kcals/kg 2396-4539 total kcals 1.5-2.0 g protein/kg 86-114 g total protein 25-30 mL/kg 1012-6431 total fluid mLs NUTRITION DIAGNOSIS: * Increased kcal/prot needs R/T wound healing, wt loss as evidenced by sacral stage 4 wound, possible significant wt loss of 19lbs/ 13.4% in ~1 month. * Swallowing difficulty R/T dysphagia w/ h/o brain tumor and CVA as evidenced by s/p recent PEG placement, on GT feeding. CURRENT TF:Glucerna 1.2 @ 30ml/hr x 24 hrs- meets 51% est kcal, 50% est prot needs ENTERAL NUTRITION RECOMMENDATIONS: Glucerna 1.5 @ 50ml/hr x 24 hrs to provide 1200ml, 1800kcal, 99g prot, 911ml free water * Rec TF change to Glucerna 1.5 for increased kcal/prot needs * Initiate Glucerna 1.5 @ 20ml/hr x 6 hrs, advance 10ml q 4-6 hrs as tolerated to goal rate. * HOB over 30 degrees/ water fluhs per MD ADDITIONAL RECOMMENDATIONS: * Calibrated bedscale wt for accurate CBW- w/ added P200 mattress * Check lytes daily w/ TF, replete as needed * Wound healing: add Vit C 500mg BID and Ziyad 1pkt BID * Monitor BGs closely, need for tighter regimen (BGs in the 200's) . (3) Failure to thrive (4) Sepsis Assessment & Plan: Cont IV Abx cont tube feeds improving Harry Rivas November 13, 2018 13:45
--- NOTE | 2018-11-13 15:21 | Cardiology Report ---
APPROVED REPORT EXAM: Two-dimensional and M-mode echocardiogram with Doppler and color Doppler. INDICATION Tachycardia M-Mode DIMENSIONS IVSd0.8 (0.7-1.1cm)Left Atrium (MM)3.0 (1.6-4.0cm) LVDd4.5 (3.5-5.6cm)Aortic Root3.1 (2.0-3.7cm) PWd0.9 (0.7-1.1cm)Aortic Cusp Exc.1.5 (1.5-2.0cm) IVSs0.9 cm LVDs3.2 (2.5-4.0cm) PWs1.4 cm Normal left ventricular chamber size . Apical inferolateral and anteroseptal wall hypokinesia along with apical cap akinesia. Left ventricular ejection fraction is estimated to be 45-50%. Ischemic cardiomyopathy cannot be excluded. No evidence of left ventricular hypertrophy . Small posterior pericardial effusion along with RV wall . All other cardiac chamber sizes are within normal limits. Aortic valve calcification with normal cusp excursion . Mildly thickened mitral valve leaflets with normal excursion. Mild mitral annulus and aortic root calcification. Echogenic material noted in apex . Pulmonic valve not well visualized. IVC at normal size without physiologic collapse. A color flow and spectral Doppler study was performed and revealed: No aortic insufficiency . Mitral diastolic velocities suggest reduced left ventricular relaxation c/w mild LV diastolic dysfunction (Grade I ) Trace mitral regurgitation. Mild tricuspid regurgitation. Tricuspid systolic velocities suggests peak right ventricular systolic pressure of 26mmHg.
--- NOTE | 2018-11-13 15:28 | Cardiology Report ---
APPROVED REPORT EKG Measurement Heart [id number] CA [id number] Sinus tachycardia Low voltage QRS Cannot rule out Anteroseptal infarct, age undetermined Abnormal ECG
[2018-11-13 16:12] VITALS: BP 118/82
--- NOTE | 2018-11-13 16:30 | Internal Med Progress Note ---
Subjective Date of Service: November 13, 2018 Physician Name Jesus Kidd Attending Physician Camacho Braun MD Current Medications Medications (Trade) Dose Ordered Sig/Chace Route PRN Reason Start Time Stop Time Status Last Admin Dose Admin Chlorhexidine Gluconate (Susannah-Hex 2%) 1 applic DAILY@2000 TOPIC 11/13/18 20:00 12/10/18 19:59 Dextrose (Dextrose 50%) 25 ml Q30M PRN IV Hypoglycemia 11/12/18 20:30 12/10/18 14:29 Dextrose (Dextrose 50%) 50 ml Q30M PRN IV Hypoglycemia 11/12/18 20:30 12/11/18 17:59 Heparin Sodium (Porcine) (Heparin 5000 units/ml) 5,000 units EVERY 12 HOURS SUBQ 11/12/18 21:00 12/10/18 20:59 11/13/18 08:14 Insulin Aspart (NovoLOG) EVERY 6 HOURS SUBQ 11/13/18 00:00 12/10/18 17:59 11/13/18 11:52 Lorazepam (Ativan 2mg/ml 1ml) 0.5 mg Q4H PRN IV For Anxiety 11/12/18 20:30 11/17/18 20:29 Meropenem 1 gm/ Sodium Chloride 55 ml @ 110 mls/hr Q8HR IVPB 11/12/18 22:00 11/17/18 13:59 11/13/18 13:17 Midodrine (Pro-Amatine) 10 mg THREE TIMES A DAY ORAL 11/13/18 09:00 12/12/18 12:59 11/13/18 13:17 Morphine Sulfate (Morphine Sulfate) 1 mg Q4H PRN IVP For Pain 11/12/18 20:30 11/17/18 20:29 Ondansetron HCl (Zofran) 4 mg Q6H PRN IVP Nausea & Vomiting 11/12/18 20:30 12/12/18 20:29 Poloxamer (PluroGel) 1 applic Q3D TOPIC 11/14/18 16:00 12/11/18 15:59 Sitagliptin Phosphate (Januvia) 50 mg DAILY ORAL 11/13/18 09:00 12/11/18 08:59 11/13/18 08:10 Sodium Chloride 1,000 ml @ 100 mls/hr Q10H IV 11/12/18 20:30 12/11/18 11:07 11/13/18 05:50 Tamsulosin HCl (Flomax) 0.4 mg BEDTIME ORAL 11/12/18 21:00 12/10/18 20:59 Vancomycin HCl (Vanco rx to dose) 1 ea DAILY PRN MISC Per rx protocol 11/12/18 20:30 12/12/18 20:29 Vancomycin HCl 750 mg/Sodium Chloride 275 ml @ 183.333 mls/hr Q12HR IVPB 11/13/18 21:00 11/18/18 20:59 Zinc Sulfate (Zinc Sulfate) 220 mg DAILY ORAL 11/13/18 09:00 11/23/18 08:59 11/13/18 08:10 Allergies: Coded Allergies: No Known Allergies (Unverified , 09/27/18) ROS Limited/Unobtainable: Yes Subjective 68 YO M admitted with respiratory failure. Now Pneumonia and sinus tachycardia. Cover for Int Med-Dr Braun. Off BIPAP. Objective Last Vital Signs Date Time Temp Pulse Resp B/P (MAP) Pulse Ox O2 Delivery O2 Flow Rate FiO2 11/13/18 16:12 98.6 86 18 118/82 (94) 97 11/13/18 16:00 Bi-pap 11/13/18 16:00 4.0 11/13/18 08:00 Laboratory Tests Test 11/13/18 06:45 Vancomycin Level Trough 0.8 ug/mL (5.0-12.0) L Microbiology Date/Time Source Procedure Growth Status 11/12/18 18:00 Sputum Induced Gram Stain - Final Resulted 11/12/18 18:00 Sputum Induced Sputum Culture Pending Resulted Intake and Output 11/12/18 11/13/18 19:00 07:00 Intake Total 360 ml 1340 ml Output Total 350 ml Balance 360 ml 990 ml IV Total 1010 ml Tube Feeding 360 ml 330 ml Output Urine Total 350 ml # Voids 750 50 # Bowel Movements 3 Objective General Appearance: WD/WN, moderate distress EENT: PERRL/EOMI, normal ENT inspection Neck: non-tender, normal alignment, supple, normal inspection Cardiovascular: normal peripheral pulses, regular rhythm, no gallop/murmur, no JVD, tachycardia Respiratory/Chest: chest wall non-tender, crackles/rales, rhonchi - bilaterally , expiratory wheezing Abdomen: normal bowel sounds, non tender, soft, no organomegaly, no mass Extremities: normal range of motion, non-tender Neurologic: brush hand II-XII grossly normal Skin: normal pigmentation Assessment/Plan Assessment/Plan ASSESSMENT: This is a 68-year-old male. 1. Altered mental status. 2. Respiratory failure. 3. Hypertension. 4. Dysphagia. 5. Failure to thrive. 6. Encephalopathy. 7. Brain cancer. 8. Seizure disorder. 9. Diabetes type 2. 10. Cerebrovascular disease. 11. Right hemiparesis. 12. Hypertension. 13. Coronary artery disease. 14. Expressive aphasia. 15. Pneumonia TREATMENT: 1. Respiratory failure. Off BIPAP. Pulmonary consultation has been obtained with Dr. Raul Feng. The patient is currently on a non-rebreather mask. We will follow recommendations of Pulmonary. 2. Altered mental status is probably secondary to hypoxia as above. 3. Dysphagia. The patient is status post PEG placement on 11/05/2018. 4. Failure to thrive. 5. Encephalopathy. 6. Brain cancer. 7. Seizure disorder. Continue Depakote and Vimpat as above. 8. Diabetes type 2. Continue Humalog sliding scale as above. 9. Cerebrovascular disease. 10. Right hemiparesis. 11. Hypertension. 12. Coronary artery disease. 13. Expressive aphasia. 14. Continue vanco and meropenem per Inf Dis 15. D/W son Charli at bedside Jesus Kidd MD November 13, 2018 16:30
--- NOTE | 2018-11-13 19:34 | NUR ---
HAND-OFF: Report given to JEANIE MURILLO.
[2018-11-13 20:00] VITALS: BP 128/79
[2018-11-13] MEDS ORDERED: Dyna-Hex 2% Top Sol 2oz TOPIC SCH (20:00)
--- NOTE | 2018-11-13 20:00 | NUR ---
NURSE NOTES: PATIENT IN BED. ON 4L O2 VIA N/C. NO SOB, NO ACUTE DISTRESS, NO S/SX OF PAIN. ON GT FEEDING, TOLERATING WELL. HOB REMAINING UP. ABAD SOFT RESTRAINTS IN USE. CIRCULATION CHECKED. F/C DRAINING CLEAR YELLOWISH URINE BY GRAVITY. RH IV INTACT PATENT RUNNING FLUIDS. BED IN LOWEST POSITION, LOCKED, ALARMS ON, SIDE RAILS PADDED. CALL LIGHT IN REACH.
[2018-11-13] MEDS: Tamsulosin 0.4mg cap ORAL SCH (20:42)
[2018-11-13] MEDS: Vancomycin 750 MG in NS 275 ML IVPB SCH (20:43)
[2018-11-14] VITALS: BP 123/78
[2018-11-14 04:00] VITALS: BP 120/77
[2018-11-14] MEDS: Meropenem 1 GM in NS 55 ML IVPB SCH ×3 (06:32→21:41)
[2018-11-14] MEDS: NovoLOG Insulin Flexpen SUBQ SCH ×3 (06:37→17:27)
--- NOTE | 2018-11-14 07:24 | NUR ---
HAND-OFF: Report given to Patt Mancera RN.
--- NOTE | 2018-11-14 07:30 | NUR ---
NURSE NOTES: Received patient in bed, awake, patient opens his eyes but does not answer to questions. No s/s of pain or discomfort per FLACC pain scale. On restraints, no swelling, bruise or skin break on wrists. Will continue to monitor. Mota intact, draining well to gravity and GT intact, HOB elevated. on P200 mattress. side rails padded for seizure precaution. Will continue plan of care.
[2018-11-14 08:00] VITALS: BP 127/76
[2018-11-14] MEDS: sitaGLIPtin 50mg tab ORAL SCH (09:05)
[2018-11-14] MEDS: Midodrine 10mg tab ORAL SCH ×3 (09:05→17:25)
[2018-11-14] MEDS: Zinc Sulfate 220mg cap ORAL SCH (09:05)
[2018-11-14] MEDS: Heparin 5000 units/ml inj SUBQ SCH ×2 (09:06→21:58)
[2018-11-14] MEDS: Vancomycin 750 MG in NS 275 ML IVPB SCH ×2 (09:57→22:34)
--- NOTE | 2018-11-14 10:00 | NUR ---
NURSE NOTES: RN changed sacral wound dressing. No changes in wound. Picture obtained.
[2018-11-14] MEDS ORDERED: NS 275ml ONE ×2 (10:52→10:55)
[2018-11-14] MEDS ORDERED: Tubing IV Secondary IV ONE ×2 (10:52→10:55)
[2018-11-14] MEDS ORDERED: NS 500ML ONE (10:55)
[2018-11-14 12:00] VITALS: BP 141/84
--- NOTE | 2018-11-14 15:01 | Internal Med Progress Note ---
Subjective Date of Service: November 14, 2018 Physician Name Jesus Kidd Attending Physician Camacho Braun MD Current Medications Medications (Trade) Dose Ordered Sig/Chace Route PRN Reason Start Time Stop Time Status Last Admin Dose Admin Dextrose (Dextrose 50%) 25 ml Q30M PRN IV Hypoglycemia 11/12/18 20:30 12/10/18 14:29 Dextrose (Dextrose 50%) 50 ml Q30M PRN IV Hypoglycemia 11/12/18 20:30 12/11/18 17:59 Heparin Sodium (Porcine) (Heparin 5000 units/ml) 5,000 units EVERY 12 HOURS SUBQ 11/12/18 21:00 12/10/18 20:59 11/14/18 09:06 Insulin Aspart (NovoLOG) EVERY 6 HOURS SUBQ 11/13/18 00:00 12/10/18 17:59 11/14/18 12:14 Lorazepam (Ativan 2mg/ml 1ml) 0.5 mg Q4H PRN IV For Anxiety 11/12/18 20:30 11/17/18 20:29 Meropenem 1 gm/ Sodium Chloride 55 ml @ 110 mls/hr Q8HR IVPB 11/12/18 22:00 11/17/18 13:59 11/14/18 13:05 Midodrine (Pro-Amatine) 10 mg THREE TIMES A DAY ORAL 11/13/18 09:00 12/12/18 12:59 11/14/18 13:05 Morphine Sulfate (Morphine Sulfate) 1 mg Q4H PRN IVP For Pain 11/12/18 20:30 11/17/18 20:29 Ondansetron HCl (Zofran) 4 mg Q6H PRN IVP Nausea & Vomiting 11/12/18 20:30 12/12/18 20:29 Poloxamer (PluroGel) 1 applic Q3D TOPIC 11/14/18 16:00 12/11/18 15:59 Sitagliptin Phosphate (Januvia) 50 mg DAILY ORAL 11/13/18 09:00 12/11/18 08:59 11/14/18 09:05 Sodium Chloride 1,000 ml @ 100 mls/hr Q10H IV 11/12/18 20:30 12/11/18 11:07 11/14/18 06:00 Tamsulosin HCl (Flomax) 0.4 mg BEDTIME ORAL 11/12/18:00 12/10/18 20:59 11/13/18 20:42 Vancomycin HCl (Vanco rx to dose) 1 ea DAILY PRN MISC Per rx protocol 11/12/18 20:30 12/12/18 20:29 Vancomycin HCl 750 mg/Sodium Chloride 275 ml @ 183.333 mls/hr Q12HR IVPB 11/13/18 21:00 11/18/18 20:59 11/14/18 09:57 Zinc Sulfate (Zinc Sulfate) 220 mg DAILY ORAL 11/13/18 09:00 11/23/18 08:59 11/14/18 09:05 Allergies: Coded Allergies: No Known Allergies (Unverified , 09/27/18) ROS Limited/Unobtainable: Yes Subjective 68 YO M admitted with respiratory failure. Now Pneumonia and sinus tachycardia. Cover for Int Med-Dr Braun. Off BIPAP; tolerating nasal canula Objective Last Vital Signs Date Time Temp Pulse Resp B/P (MAP) Pulse Ox O2 Delivery O2 Flow Rate FiO2 11/14/18 12:00 98.6 111 22 141/84 (103) 97 11/14/18 12:00 4.0 11/14/18 09:00 Nasal Cannula 11/14/18 07:40 36 Microbiology Date/Time Source Procedure Growth Status 11/12/18 18:00 Sputum Induced Gram Stain - Final Resulted 11/12/18 18:00 Sputum Culture - Preliminary Staphylococcus Aureus Resulted Intake and Output 11/13/18 11/14/18 19:00 07:00 Intake Total 520 ml 950 ml Output Total 500 ml 500 ml Balance 20 ml 450 ml Intake Free Water 200 ml 200 ml IV Total 100 ml Tube Feeding 320 ml 650 ml Output Urine Total 500 ml 500 ml # Bowel Movements 1 Objective General Appearance: WD/WN, moderate distress EENT: PERRL/EOMI, normal ENT inspection Neck: non-tender, normal alignment, supple, normal inspection Cardiovascular: normal peripheral pulses, regular rhythm, no gallop/murmur, no JVD, tachycardia Respiratory/Chest: Nasal canula; chest wall non-tender, crackles/rales, rhonchi - bilaterally, expiratory wheezing Abdomen: normal bowel sounds, non tender, soft, no organomegaly, no mass Extremities: normal range of motion, non-tender Neurologic: executive legal secretary II-XII grossly normal Skin: normal pigmentation Assessment/Plan Assessment/Plan ASSESSMENT: This is a 68-year-old male. 1. Altered mental status. 2. Respiratory failure. 3. Hypertension. 4. Dysphagia. 5. Failure to thrive. 6. Encephalopathy. 7. Brain cancer. 8. Seizure disorder. 9. Diabetes type 2. 10. Cerebrovascular disease. 11. Right hemiparesis. 12. Hypertension. 13. Coronary artery disease. 14. Expressive aphasia. 15. Pneumonia=staph aureus 16. UTI=pseudamonas TREATMENT: 1. Respiratory failure. Off BIPAP; tolerating nasal canula. Pulmonary consultation has been obtained with Dr. Raul Feng. We will follow recommendations of Pulmonary. 2. Altered mental status is probably secondary to hypoxia as above. 3. Dysphagia. The patient is status post PEG placement on 11/05/2018. 4. Failure to thrive. 5. Encephalopathy. 6. Brain cancer. 7. Seizure disorder. Continue Depakote and Vimpat as above. 8. Diabetes type 2. Continue Humalog sliding scale as above. 9. Cerebrovascular disease. 10. Right hemiparesis. 11. Hypertension. 12. Coronary artery disease. 13. Expressive aphasia. 14. Continue vanco and meropenem per Inf Dis 15. D/W son Charli at bedside Jesus Kidd MD November 14, 2018 15:01
--- NOTE | 2018-11-14 15:21 | Cardiac Electrophysiology PN ---
Assessment/Plan Assessment/Plan 1. Sinus tachycardia at rate of 140 likely secondary to underlying respiratory sepsis. Was on BiPAP. ECG no acute ST-T changes 2. Troponin elevation at 0.297 increased to 0.86. The patient does not have renal failure. Echo EF 45% 3. S/P Septic shock . Echo EF 45-50%. On iv Abx per ID 4. Diabetes. 5. History of CVA. 6. Dysphagia, status post PEG placement. 7. Status post sacral decubitus debridement. 8. Seizure disorder, on Depakote. 9. Hypertension. Losartan and Coreg were DCed 10. Brain tumor, status post surgery. 11. DNR DW RN Subjective Subjective Nonverbal. Awaiting placement Objective Last 24 Hour Vital Signs Date Time Temp Pulse Resp B/P (MAP) Pulse Ox O2 Delivery O2 Flow Rate FiO2 11/14/18 12:00 98.6 111 22 141/84 (103) 97 11/14/18 12:00 4.0 11/14/18 09:00 Nasal Cannula 4.0 11/14/18 08:00 97.8 103 19 127/76 (93) 97 11/14/18 08:00 4.0 11/14/18 07:40 95 Nasal Cannula 4.0 36 11/14/18 05:08 101 19 100 Facial 45 11/14/18 04:00 4.0 11/14/18 04:00 99.0 107 18 120/77 (91) 99 11/14/18 01:29 97 20 99 Facial 50 11/14/18 00:00 98.9 103 18 123/78 (93) 98 11/13/18 23:12 108 21 97 Facial 50 11/13/18 20:59 95 Nasal Cannula 4.0 36 11/13/18 20:00 4.0 11/13/18 20:00 97.5 100 20 128/79 (95) 97 11/13/18 20:00 Bi-pap 11/13/18 16:12 98.6 86 18 118/82 (94) 97 11/13/18 16:00 Bi-pap 11/13/18 16:00 4.0 Intake and Output 11/13/18 11/14/18 19:00 07:00 Intake Total 520 ml 950 ml Output Total 500 ml 500 ml Balance 20 ml 450 ml Intake Free Water 200 ml 200 ml IV Total 100 ml Tube Feeding 320 ml 650 ml Output Urine Total 500 ml 500 ml # Bowel Movements 1 Microbiology Date/Time Source Procedure Growth Status 11/12/18 18:00 Sputum Induced Gram Stain - Final Resulted 11/12/18 18:00 Sputum Culture - Preliminary Staphylococcus Aureus Resulted Objective HEAD AND NECK: No JVD on Nasal cannula . LUNGS: Coarse rhonchi bilaterally. CARDIOVASCULAR: Regular S1, S2 with no gallop or murmur. ABDOMEN: Soft. Status post G-tube. EXTREMITIES: No pitting edema. Huy Valladares MD November 14, 2018 15:21
[2018-11-14 16:00] VITALS: BP 131/76
[2018-11-14] MEDS ORDERED: [UNRECOGNIZED DRUG - SUPPLY] TOPIC SCH (16:00)
[2018-11-14] MEDS: [UNRECOGNIZED DRUG - SUPPLY] TOPIC SCH (16:50)
--- NOTE | 2018-11-14 18:00 | NUR ---
NURSE NOTES: Re-position done Q 2hr, oral care, restraint care, wound care done. IV intact, no s/s of infiltration.
--- NOTE | 2018-11-14 19:22 | Pulmonology Progress Note ---
Assessment/Plan Problems: (1) Acute encephalopathy (2) Uncontrolled seizures (3) Sacral decubitus ulcer (4) Severe malnutrition (5) History of CVA (cerebrovascular accident) (6) Brain tumor (7) Oligodendroglioma (8) Hypertension (9) Diabetes mellitus (10) Anemia Assessment/Plan mental status better needs restrains, since pulling on Gtube no more seizures for the last 24 hours no new complains continue current regimen Subjective ROS Limited/Unobtainable: No Allergies: Coded Allergies: No Known Allergies (Unverified , 09/27/18) Objective Last 24 Hour Vital Signs Date Time Temp Pulse Resp B/P (MAP) Pulse Ox O2 Delivery O2 Flow Rate FiO2 11/14/18 16:00 98.0 76 18 131/76 (94) 97 11/14/18 16:00 4.0 11/14/18 12:00 98.6 111 22 141/84 (103) 97 11/14/18 12:00 4.0 11/14/18 09:00 Nasal Cannula 4.0 11/14/18 08:00 97.8 103 19 127/76 (93) 97 11/14/18 08:00 4.0 11/14/18 07:40 95 Nasal Cannula 4.0 36 11/14/18 05:08 101 19 100 Facial 45 11/14/18 04:00 4.0 11/14/18 04:00 99.0 107 18 120/77 (91) 99 11/14/18 01:29 97 20 99 Facial 50 11/14/18 00:00 98.9 103 18 123/78 (93) 98 11/13/18 23:12 108 21 97 Facial 50 11/13/18 20:59 95 Nasal Cannula 4.0 36 11/13/18 20:00 4.0 11/13/18 20:00 97.5 100 20 128/79 (95) 97 11/13/18 20:00 Bi-pap Intake and Output 11/13/18 11/14/18 19:00 07:00 Intake Total 520 ml 950 ml Output Total 500 ml 500 ml Balance 20 ml 450 ml Intake Free Water 200 ml 200 ml IV Total 100 ml Tube Feeding 320 ml 650 ml Output Urine Total 500 ml 500 ml # Bowel Movements 1 Objective General Appearance: cachetic HEENT: normocephalic, atraumatic Respiratory/Chest: chest wall non-tender, lungs clear Cardiovascular: normal peripheral pulses, normal rate Abdomen: normal bowel sounds, no organomegaly Extremities: no cyanosis Skin: no lesions Microbiology Date/Time Source Procedure Growth Status 11/12/18 18:00 Sputum Induced Gram Stain - Final Resulted 11/12/18 18:00 Sputum Culture - Preliminary Staphylococcus Aureus Resulted Current Medications Medications (Trade) Dose Ordered Sig/Chace Route PRN Reason Start Time Stop Time Status Last Admin Dose Admin Dextrose (Dextrose 50%) 25 ml Q30M PRN IV Hypoglycemia 11/12/18 20:30 12/10/18 14:29 Dextrose (Dextrose 50%) 50 ml Q30M PRN IV Hypoglycemia 11/12/18 20:30 12/11/18 17:59 Heparin Sodium (Porcine) (Heparin 5000 units/ml) 5,000 units EVERY 12 HOURS SUBQ 11/12/18 21:00 12/10/18 20:59 11/14/18 09:06 Insulin Aspart (NovoLOG) EVERY 6 HOURS SUBQ 11/13/18 00:00 12/10/18 17:59 11/14/18 17:27 Lorazepam (Ativan 2mg/ml 1ml) 0.5 mg Q4H PRN IV For Anxiety 11/12/18 20:30 11/17/18 20:29 Meropenem 1 gm/ Sodium Chloride 55 ml @ 110 mls/hr Q8HR IVPB 11/12/18 22:00 11/17/18 13:59 11/14/18 13:05 Midodrine (Pro-Amatine) 10 mg THREE TIMES A DAY ORAL 11/13/18 09:00 12/12/18 12:59 11/14/18 17:25 Morphine Sulfate (Morphine Sulfate) 1 mg Q4H PRN IVP For Pain 11/12/18 20:30 11/17/18 20:29 Ondansetron HCl (Zofran) 4 mg Q6H PRN IVP Nausea & Vomiting 11/12/18 20:30 12/12/18 20:29 Poloxamer (PluroGel) 1 applic Q3D TOPIC 11/14/18 16:00 12/11/18 15:59 11/14/18 16:50 Sitagliptin Phosphate (Januvia) 50 mg DAILY ORAL 11/13/18 09:00 12/11/18 08:59 11/14/18 09:05 Sodium Chloride 1,000 ml @ 100 mls/hr Q10H IV 11/12/18 20:30 12/11/18 11:07 11/14/18 18:56 Tamsulosin HCl (Flomax) 0.4 mg BEDTIME ORAL 11/12/18 21:00 12/10/18 20:59 11/13/18 20:42 Vancomycin HCl (Vanco rx to dose) 1 ea DAILY PRN MISC Per rx protocol 11/12/18 20:30 12/12/18 20:29 Vancomycin HCl 750 mg/Sodium Chloride 275 ml @ 183.333 mls/hr Q12HR IVPB 11/13/18 21:00 11/18/18 20:59 11/14/18 09:57 Zinc Sulfate (Zinc Sulfate) 220 mg DAILY ORAL 11/13/18 09:00 11/23/18 08:59 11/14/18 09:05 Raul Feng MD November 14, 2018 19:22
--- NOTE | 2018-11-14 19:28 | NUR ---
HAND-OFF: Report given to Kinza.
[2018-11-14 20:00] VITALS: BP 125/80
--- NOTE | 2018-11-14 20:00 | NUR ---
NURSE NOTES: PATIENT IN BED. ON GT FEEDING, TOLERATING WELL. HOB REMAINING UP. ON 4L O2 VIA N/C. NO SOB, NO ACUTE DISTRESS, NO S/SX OF PAIN. ABAD SOFT RESTRAINTS IN USE. CIRCULATION CHECKED. F/C DRAINING CLEAR YELLOWISH URINE BY GRAVITY. RH IV INTACT PATENT RUNNING FLUIDS. BED IN LOWEST POSITION, LOCKED, ALARMS ON, SIDE RAILS PADDED. CALL LIGHT IN REACH.
[2018-11-14] MEDS: Tamsulosin 0.4mg cap ORAL SCH (21:49)
[2018-11-15] VITALS (7 sets, daily range): BP systolic 119–141; BP diastolic 77–89
[2018-11-15] MEDS: NovoLOG Insulin Flexpen SUBQ SCH ×5 (00:16→23:28)
[2018-11-15] MEDS: Meropenem 1 GM in NS 55 ML IVPB SCH ×3 (05:05→20:45)
[2018-11-15] MEDS: Vancomycin 750 MG in NS 275 ML IVPB SCH ×2 (05:32→15:10)
--- NOTE | 2018-11-15 07:20 | NUR ---
HAND-OFF: Report given to KATINA BAIRES RN.
--- NOTE | 2018-11-15 07:25 | NUR ---
NURSE NOTES: Received patient in bed, awake, patient opens his eyes but does not answer to questions. No s/s of pain or discomfort per FLACC pain scale. On restraints, no swelling, bruise or skin break on left wrist. Will continue to monitor. Mota intact, draining well to gravity and GT intact, HOB elevated. on P200 mattress. side rails padded for seizure precaution. IV Will continue plan of care.
--- NOTE | 2018-11-15 08:00 | NUR ---
NURSE NOTES: V/S obtained, heart rate is 121,Blood pressure stable. Patient is calm, no s/s of pain or discomfort per FLACC pain scale. Afebrile. Re-position done.No SOB. Patient unable to do vagal maneuver. Dr. Valladares was paged. Will follow up.
[2018-11-15 08:09] LABS: MEAN CORPUSCULAR VOLUME 92 FL (80-99); PLATELET COUNT 180 K/UL (150-450); RED BLOOD COUNT 2.61 M/UL (4.70-6.10); RED CELL DISTRIBUTION WIDTH 14.4 % (11.6-14.8); WHITE BLOOD COUNT 5.3 K/UL (4.8-10.8)
[2018-11-15] MEDS: Zinc Sulfate 220mg cap ORAL SCH (08:09)
[2018-11-15] MEDS: sitaGLIPtin 50mg tab ORAL SCH (08:09)
[2018-11-15] MEDS: Midodrine 10mg tab ORAL SCH ×3 (08:09→17:51)
[2018-11-15 08:15] LABS: ANION GAP 4 mmol/L (5-15); BLOOD UREA NITROGEN 16 mg/dL (7-18); CALCIUM 7.7 MG/DL (8.5-10.1); CARBON DIOXIDE 31 MMOL/L (21-32); CHLORIDE 106 MMOL/L (98-107); CREATININE 0.5 MG/DL (0.55-1.30); POTASSIUM 3.7 MMOL/L (3.5-5.1); SODIUM 141 MMOL/L (136-145)
[2018-11-15] MEDS: Heparin 5000 units/ml inj SUBQ SCH ×2 (08:18→20:52)
--- NOTE | 2018-11-15 09:00 | NUR ---
NURSE NOTES: Re checked pulse rate. Pulse rate is 115, patient is calm, No SOB, or s/s of distress. Will continue to monitor.
--- NOTE | 2018-11-15 13:00 | NUR ---
NURSE NOTES: Patient was seen by Dr. Valladares and EKG was done. He checked the EKG and will take care of it.
--- NOTE | 2018-11-15 13:06 | Cardiac Electrophysiology PN ---
Assessment/Plan Assessment/Plan 1. Sinus tachycardia at rate of 140 likely secondary to underlying respiratory sepsis. Was on BiPAP. ECG no acute ST-T changes. Repeat ECG today 11/15/18 showed sinus tach 110. Likely Beta radha withdrawal. Start Metoprolol 25 GT bid 2. Troponin elevation at 0.297 increased to 0.86. The patient does not have renal failure. Echo EF 45% 3. S/P Septic shock . Echo EF 45-50%. On iv Abx per ID 4. Diabetes. 5. History of CVA. 6. Dysphagia, status post PEG placement. 7. Status post sacral decubitus debridement. 8. Seizure disorder, on Depakote. 9. Hypertension. Start Metoprolol 25 bid 10. Brain tumor, status post surgery. 11. DNR DW RN Subjective Subjective Nonverbal.Mildly tachycardic. Placement pending Objective Last 24 Hour Vital Signs Date Time Temp Pulse Resp B/P (MAP) Pulse Ox O2 Delivery O2 Flow Rate FiO2 11/15/18 09:00 98.3 115 16 140/82 (101) 94 11/15/18 09:00 Nasal Cannula 4.0 11/15/18 08:15 98 Nasal Cannula 4.0 36 11/15/18 08:00 4.0 11/15/18 08:00 97.6 119 16 140/88 (105) 94 11/15/18 05:16 105 17 98 Facial 45 11/15/18 04:00 98.6 102 16 119/77 (91) 97 11/15/18 04:00 4.0 11/15/18 02:51 107 17 98 Facial 45 11/15/18 01:14 105 16 98 Facial 45 11/15/18 00:00 99.2 100 20 128/85 (99) 95 11/14/18 23:24 111 18 97 Facial 45 11/14/18 21:00 Nasal Cannula 4.0 11/14/18 20:00 4.0 11/14/18 20:00 97.8 108 16 125/80 (95) 99 11/14/18 19:25 97 Nasal Cannula 4.0 36 11/14/18 16:00 98.0 76 18 131/76 (94) 97 11/14/18 16:00 4.0 Intake and Output 11/14/18 11/15/18 18:59 06:59 Intake Total 2080.000 ml 800 ml Output Total 1000 ml 600 ml Balance 1080.000 ml 200 ml Intake Free Water 150 ml 200 ml IV Total 1330.000 ml Tube Feeding 600 ml 600 ml Output Urine Total 1000 ml 600 ml Laboratory Tests Test 11/14/18 20:18 11/15/18 06:48 Vancomycin Level Trough 7.2 ug/mL (5.0-12.0) White Blood Count 5.3 K/UL (4.8-10.8) Red Blood Count 2.61 M/UL (4.70-6.10) L Hemoglobin 8.0 G/DL (14.2-18.0) L Hematocrit 24.0 % (42.0-52.0) L Mean Corpuscular Volume 92 FL (80-99) Mean Corpuscular Hemoglobin 30.5 PG (27.0-31.0) Mean Corpuscular Hemoglobin Concent 33.3 G/DL (32.0-36.0) Red Cell Distribution Width 14.4 % (11.6-14.8) Platelet Count 180 K/UL (150-450) Mean Platelet Volume 6.9 FL (6.5-10.1) Neutrophils (%) (Auto) % (45.0-75.0) Lymphocytes (%) (Auto) % (20.0-45.0) Monocytes (%) (Auto) % (1.0-10.0) Eosinophils (%) (Auto) % (0.0-3.0) Basophils (%) (Auto) % (0.0-2.0) Differential Total Cells Counted 100 Neutrophils % (Manual) 92 % (45-75) H Lymphocytes % (Manual) 4 % (20-45) L Monocytes % (Manual) 4 % (1-10) Eosinophils % (Manual) 0 % (0-3) Basophils % (Manual) 0 % (0-2) Band Neutrophils 0 % (0-8) Platelet Estimate Adequate Platelet Morphology Normal Polychromasia 1+ Anisocytosis 1+ Sodium Level 141 MMOL/L (136-145) Potassium Level 3.7 MMOL/L (3.5-5.1) Chloride Level 106 MMOL/L (98-107) Carbon Dioxide Level 31 MMOL/L (21-32) Anion Gap 4 mmol/L (5-15) L Blood Urea Nitrogen 16 mg/dL (7-18) Creatinine 0.5 MG/DL (0.55-1.30) L Estimat Glomerular Filtration Rate > 60 mL/min (>60) Glucose Level 256 MG/DL (74-106) H Calcium Level 7.7 MG/DL (8.5-10.1) L Microbiology Date/Time Source Procedure Growth Status 11/12/18 18:00 Sputum Induced Gram Stain - Final Resulted 11/12/18 18:00 Sputum Culture - Preliminary Staphylococcus Aureus - Mrsa Gram Negative Bacillus 1 Gram Negative Bacillus 2 Resulted Objective HEAD AND NECK: No JVD on Nasal cannula . LUNGS: Coarse rhonchi bilaterally. CARDIOVASCULAR: Regular S1, S2 with no gallop or murmur. ABDOMEN: Soft. Status post G-tube. EXTREMITIES: No pitting edema. Huy Valladares MD November 15, 2018 13:06
--- NOTE | 2018-11-15 13:34 | Internal Med Progress Note ---
Subjective Date of Service: November 15, 2018 Physician Name Jesus Kidd Attending Physician Camacho Braun MD Current Medications Medications (Trade) Dose Ordered Sig/Chace Route PRN Reason Start Time Stop Time Status Last Admin Dose Admin Dextrose (Dextrose 50%) 25 ml Q30M PRN IV Hypoglycemia 11/12/18 20:30 12/10/18 14:29 Dextrose (Dextrose 50%) 50 ml Q30M PRN IV Hypoglycemia 11/12/18 20:30 12/11/18 17:59 Heparin Sodium (Porcine) (Heparin 5000 units/ml) 5,000 units EVERY 12 HOURS SUBQ 11/12/18 21:00 12/10/18 20:59 11/15/18 08:18 Insulin Aspart (NovoLOG) EVERY 6 HOURS SUBQ 11/13/18 00:00 12/10/18 17:59 11/15/18 12:15 Lorazepam (Ativan 2mg/ml 1ml) 0.5 mg Q4H PRN IV For Anxiety 11/12/18 20:30 11/17/18 20:29 Meropenem 1 gm/ Sodium Chloride 55 ml @ 110 mls/hr Q8HR IVPB 11/12/18 22:00 11/17/18 13:59 11/15/18 05:05 Midodrine (Pro-Amatine) 10 mg THREE TIMES A DAY ORAL 11/13/18 09:00 12/12/18 12:59 11/15/18 12:14 Morphine Sulfate (Morphine Sulfate) 1 mg Q4H PRN IVP For Pain 11/12/18 20:30 11/17/18 20:29 Ondansetron HCl (Zofran) 4 mg Q6H PRN IVP Nausea & Vomiting 11/12/18 20:30 12/12/18 20:29 Poloxamer (PluroGel) 1 applic Q3D TOPIC 11/14/18 16:00 12/11/18 15:59 11/14/18 16:50 Sitagliptin Phosphate (Januvia) 50 mg DAILY ORAL 11/13/18 09:00 12/11/18 08:59 11/15/18 08:09 Sodium Chloride 1,000 ml @ 100 mls/hr Q10H IV 11/12/18 20:30 12/11/18 11:07 11/15/18 06:30 Tamsulosin HCl (Flomax) 0.4 mg BEDTIME ORAL 11/12/18 21:00 12/10/18 20:59 11/14/18 21:49 Vancomycin HCl (Vanco rx to dose) 1 ea DAILY PRN MISC Per rx protocol 11/12/18 20:30 12/12/18 20:29 Vancomycin HCl 750 mg/Sodium Chloride 275 ml @ 183.333 mls/hr Q8HR IVPB 11/14/18 22:30 11/19/18 22:29 11/15/18 05:32 Zinc Sulfate (Zinc Sulfate) 220 mg DAILY ORAL 11/13/18 09:00 11/23/18 08:59 11/15/18 08:09 Allergies: Coded Allergies: No Known Allergies (Unverified , 09/27/18) ROS Limited/Unobtainable: Yes Subjective 68 YO M admitted with respiratory failure. Now Pneumonia and sinus tachycardia. Cover for Int Med-Dr Braun. Off BIPAP; tolerating nasal canula Objective Last Vital Signs Date Time Temp Pulse Resp B/P (MAP) Pulse Ox O2 Delivery O2 Flow Rate FiO2 11/15/18 09:00 98.3 115 16 140/82 (101) 94 11/15/18 09:00 Nasal Cannula 4.0 11/15/18 08:15 36 Laboratory Tests Test 11/14/18 20:18 11/15/18 06:48 Vancomycin Level Trough 7.2 ug/mL (5.0-12.0) White Blood Count 5.3 K/UL (4.8-10.8) Red Blood Count 2.61 M/UL (4.70-6.10) L Hemoglobin 8.0 G/DL (14.2-18.0) L Hematocrit 24.0 % (42.0-52.0) L Mean Corpuscular Volume 92 FL (80-99) Mean Corpuscular Hemoglobin 30.5 PG (27.0-31.0) Mean Corpuscular Hemoglobin Concent 33.3 G/DL (32.0-36.0) Red Cell Distribution Width 14.4 % (11.6-14.8) Platelet Count 180 K/UL (150-450) Mean Platelet Volume 6.9 FL (6.5-10.1) Neutrophils (%) (Auto) % (45.0-75.0) Lymphocytes (%) (Auto) % (20.0-45.0) Monocytes (%) (Auto) % (1.0-10.0) Eosinophils (%) (Auto) % (0.0-3.0) Basophils (%) (Auto) % (0.0-2.0) Differential Total Cells Counted 100 Neutrophils % (Manual) 92 % (45-75) H Lymphocytes % (Manual) 4 % (20-45) L Monocytes % (Manual) 4 % (1-10) Eosinophils % (Manual) 0 % (0-3) Basophils % (Manual) 0 % (0-2) Band Neutrophils 0 % (0-8) Platelet Estimate Adequate Platelet Morphology Normal Polychromasia 1+ Anisocytosis 1+ Sodium Level 141 MMOL/L (136-145) Potassium Level 3.7 MMOL/L (3.5-5.1) Chloride Level 106 MMOL/L (98-107) Carbon Dioxide Level 31 MMOL/L (21-32) Anion Gap 4 mmol/L (5-15) L Blood Urea Nitrogen 16 mg/dL (7-18) Creatinine 0.5 MG/DL (0.55-1.30) L Estimat Glomerular Filtration Rate > 60 mL/min (>60) Glucose Level 256 MG/DL (74-106) H Calcium Level 7.7 MG/DL (8.5-10.1) L Microbiology Date/Time Source Procedure Growth Status 11/12/18 18:00 Sputum Induced Gram Stain - Final Resulted 11/12/18 18:00 Sputum Culture - Preliminary Staphylococcus Aureus - Mrsa Gram Negative Bacillus 1 Gram Negative Bacillus 2 Resulted Intake and Output 11/14/18 11/15/18 18:59 06:59 Intake Total 2080.000 ml 800 ml Output Total 1000 ml 600 ml Balance 1080.000 ml 200 ml Intake Free Water 150 ml 200 ml IV Total 1330.000 ml Tube Feeding 600 ml 600 ml Output Urine Total 1000 ml 600 ml Objective General Appearance: WD/WN, moderate distress EENT: PERRL/EOMI, normal ENT inspection Neck: non-tender, normal alignment, supple, normal inspection Cardiovascular: normal peripheral pulses, regular rhythm, no gallop/murmur, no JVD, tachycardia Respiratory/Chest: Nasal canula; chest wall non-tender, crackles/rales, rhonchi - bilaterally, expiratory wheezing Abdomen: normal bowel sounds, non tender, soft, no organomegaly, no mass Extremities: normal range of motion, non-tender Neurologic: government affairs fellow II-XII grossly normal Skin: normal pigmentation Assessment/Plan Assessment/Plan ASSESSMENT: This is a 68-year-old male. 1. Altered mental status. 2. Respiratory failure. 3. Hypertension. 4. Dysphagia. 5. Failure to thrive. 6. Encephalopathy. 7. Brain cancer. 8. Seizure disorder. 9. Diabetes type 2. 10. Cerebrovascular disease. 11. Right hemiparesis. 12. Hypertension. 13. Coronary artery disease. 14. Expressive aphasia. 15. Pneumonia=staph aureus 16. UTI=pseudamonas TREATMENT: 1. Respiratory failure. Off BIPAP; tolerating nasal canula. Pulmonary consultation has been obtained with Dr. Raul Feng. We will follow recommendations of Pulmonary. 2. Altered mental status is probably secondary to hypoxia as above. 3. Dysphagia. The patient is status post PEG placement on 11/05/2018. 4. Failure to thrive. 5. Encephalopathy. 6. Brain cancer. 7. Seizure disorder. Continue Depakote and Vimpat as above. 8. Diabetes type 2. Continue Humalog sliding scale as above. 9. Cerebrovascular disease. 10. Right hemiparesis. 11. Hypertension. 12. Coronary artery disease. 13. Expressive aphasia. 14. Continue vanco and meropenem per Inf Dis 15. D/W son Charli at bedside Jesus Kidd MD November 15, 2018 13:34
--- NOTE | 2018-11-15 16:11 | Surgery Progress Note ---
Surgery Progress Note Subjective Procedure Performed left subclavian central venous catheter insertion Additional Comments no acute events. comfortable. stable. Objective Last 24 Hour Vital Signs Date Time Temp Pulse Resp B/P (MAP) Pulse Ox O2 Delivery O2 Flow Rate FiO2 11/15/18 16:00 98.7 112 20 137/86 (103) 94 11/15/18 16:00 4.0 11/15/18 12:00 4.0 11/15/18 12:00 97.7 115 18 141/89 (106) 97 11/15/18 09:00 98.3 115 16 140/82 (101) 94 11/15/18 09:00 Nasal Cannula 4.0 11/15/18 08:15 98 Nasal Cannula 4.0 36 11/15/18 08:00 4.0 11/15/18 08:00 97.6 119 16 140/88 (105) 94 11/15/18 05:16 105 17 98 Facial 45 11/15/18 04:00 98.6 102 16 119/77 (91) 97 11/15/18 04:00 4.0 11/15/18 02:51 107 17 98 Facial 45 11/15/18 01:14 105 16 98 Facial 45 11/15/18 00:00 99.2 100 20 128/85 (99) 95 11/14/18 23:24 111 18 97 Facial 45 11/14/18 21:00 Nasal Cannula 4.0 11/14/18 20:00 4.0 11/14/18 20:00 97.8 108 16 125/80 (95) 99 11/14/18 19:25 97 Nasal Cannula 4.0 36 I&O Intake and Output 11/14/18 11/15/18 18:59 06:59 Intake Total 2080.000 ml 800 ml Output Total 1000 ml 600 ml Balance 1080.000 ml 200 ml Intake Free Water 150 ml 200 ml IV Total 1330.000 ml Tube Feeding 600 ml 600 ml Output Urine Total 1000 ml 600 ml Dressing: saturated Wound: other Drains: other Cardiovascular: RSR Respiratory: clear Abdomen: soft, non-tender, present bowel sounds, non-distended Extremities: no tenderness, no cyanosis Laboratory Tests Test 11/14/18 20:18 11/15/18 06:48 Vancomycin Level Trough 7.2 ug/mL (5.0-12.0) White Blood Count 5.3 K/UL (4.8-10.8) Red Blood Count 2.61 M/UL (4.70-6.10) L Hemoglobin 8.0 G/DL (14.2-18.0) L Hematocrit 24.0 % (42.0-52.0) L Mean Corpuscular Volume 92 FL (80-99) Mean Corpuscular Hemoglobin 30.5 PG (27.0-31.0) Mean Corpuscular Hemoglobin Concent 33.3 G/DL (32.0-36.0) Red Cell Distribution Width 14.4 % (11.6-14.8) Platelet Count 180 K/UL (150-450) Mean Platelet Volume 6.9 FL (6.5-10.1) Neutrophils (%) (Auto) % (45.0-75.0) Lymphocytes (%) (Auto) % (20.0-45.0) Monocytes (%) (Auto) % (1.0-10.0) Eosinophils (%) (Auto) % (0.0-3.0) Basophils (%) (Auto) % (0.0-2.0) Differential Total Cells Counted 100 Neutrophils % (Manual) 92 % (45-75) H Lymphocytes % (Manual) 4 % (20-45) L Monocytes % (Manual) 4 % (1-10) Eosinophils % (Manual) 0 % (0-3) Basophils % (Manual) 0 % (0-2) Band Neutrophils 0 % (0-8) Platelet Estimate Adequate Platelet Morphology Normal Polychromasia 1+ Anisocytosis 1+ Sodium Level 141 MMOL/L (136-145) Potassium Level 3.7 MMOL/L (3.5-5.1) Chloride Level 106 MMOL/L (98-107) Carbon Dioxide Level 31 MMOL/L (21-32) Anion Gap 4 mmol/L (5-15) L Blood Urea Nitrogen 16 mg/dL (7-18) Creatinine 0.5 MG/DL (0.55-1.30) L Estimat Glomerular Filtration Rate > 60 mL/min (>60) Glucose Level 256 MG/DL (74-106) H Calcium Level 7.7 MG/DL (8.5-10.1) L Plan Problems: (1) Sacral decubitus ulcer Assessment & Plan: Pt presented on admission with 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 Base is viable with some slough .Bone is palpable. undermining clockwise 9-6o'clock ,at 12 o'clock base of wound is necrotic.mixed slough and soft necrosis noted along borders. Periwound erythematous and indurated.Mild odor resolved after cleansing of wound. No exudate noted. Both heels are firm and blanchable. No evidence of skin breakdown noted to all other bony prominences. Tx.Plan: Cleanse wound with Saline. pleurogel q3day .Apply Triad paste periwound. Cover with Optifoam drsg Apply Cavilon Skin Barrier to both heels .Cover each heel with Optifoam drsg. Change every 7 days and prn Apply Cavilon Skin Barrier to both hips. Cover each hip with Optifoam drsg. Change every 7 days and prn. Air fluidized mattress. Reposition at least every 2hours or as tolerated. Off-load heels with pillow. Can plan for continued care based on above recommendations when discharged. (2) Severe malnutrition Assessment & Plan: DAILY ESTIMATED NEEDS: Needs based on Advanced wound, wt loss/ 57kg 30-35 kcals/kg 9538-1163 total kcals 1.5-2.0 g protein/kg 86-114 g total protein 25-30 mL/kg 3175-1140 total fluid mLs NUTRITION DIAGNOSIS: * Increased kcal/prot needs R/T wound healing, wt loss as evidenced by sacral stage 4 wound, possible significant wt loss of 19lbs/ 13.4% in ~1 month. * Swallowing difficulty R/T dysphagia w/ h/o brain tumor and CVA as evidenced by s/p recent PEG placement, on GT feeding. CURRENT TF:Glucerna 1.2 @ 30ml/hr x 24 hrs- meets 51% est kcal, 50% est prot needs ENTERAL NUTRITION RECOMMENDATIONS: Glucerna 1.5 @ 50ml/hr x 24 hrs to provide 1200ml, 1800kcal, 99g prot, 911ml free water * Rec TF change to Glucerna 1.5 for increased kcal/prot needs * Initiate Glucerna 1.5 @ 20ml/hr x 6 hrs, advance 10ml q 4-6 hrs as tolerated to goal rate. * HOB over 30 degrees/ water fluhs per MD ADDITIONAL RECOMMENDATIONS: * Calibrated bedscale wt for accurate CBW- w/ added P200 mattress * Check lytes daily w/ TF, replete as needed * Wound healing: add Vit C 500mg BID and Ziyad 1pkt BID * Monitor BGs closely, need for tighter regimen (BGs in the 200's) . (3) Failure to thrive (4) Sepsis Assessment & Plan: Cont IV Abx cont tube feeds improving Harry Rivas November 15, 2018 16:11
--- NOTE | 2018-11-15 17:10 | NUR ---
NURSE NOTES: Rn received order from Dr. Valladares to start metoprolol tartrate 25mg BID due to elevated pulse rate. Order read back and carried out.
[2018-11-15] MEDS ORDERED: Metoprolol 25mg tab ORAL SCH ×2 (18:30→21:00)
--- NOTE | 2018-11-15 19:25 | NUR ---
HAND-OFF: Report given to Kinza.
--- NOTE | 2018-11-15 20:00 | NUR ---
NURSE NOTES: PATIENT IN BED. NO SOB, NO ACUTE DISTRESS, ON 4L O2 VIA N/C. IV ON RH INTACT, PATENT RUNNING IVF. ON GT FEEDING, TOLERATING WELL. HOB UP. F/C DRAINING URINE BY GRAVITY. BED IN LOWEST POSITION, LOCKED, ALARMS ON. CALL LIGHT IN REACH.
--- NOTE | 2018-11-15 20:03 | Infectious Diseases Prog Note ---
Assessment/Plan Assessment/Plan Assessment: Septic Shock- 2ry to UTI - n ow off pressors -u/a wbc 10-15, nit neg, leuk +3; ucx 50-60k Psa (dsouza S) Pneum -CXR" Development of pneumonia versus atelectasis at the left lung base. Correlate clinically -BCx NTD -sp cx MRSA and GNRx 2 Afebrile Leukopenia, SP Acute respiratory failure s/p Bipap- now on NC Recent Sepsis 2ry to UTI (09/2018) -u/a wbc 30-40, nit neg, leuk +3; ucx >100K E.coli (R Cipro/Levo; otherwise) Recent Gram positive bacteremia, likely contaminant -10/10 BCx 09/24 S. hominis, S. epi; 10/13 Bcx Neg -2d Echo: no vegetations seen Recent Infected Sacral decubitus ulcer ( Path findings : acute OM ) Wnd CX : PsA (R Ceftazidime; I Cefepime; S Cipro/levo, meropenem) -10/13 SP Excision of sacral pressure ulcer with coccygectomy and ostectomy. 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 No contrast enhancement to suggest recurrent tumor is evident currently. There is evidence of old peripheral hemorrhage, presumably related to the prior surgery. 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 Negative for acute intracranial bleed, mass effect, infarct, or contrast enhancing lesion. 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 HTN HLD BPH Dm2 s/p appendectomy s/p tonsillectomy CAD seizure disorder [facility] resident sacral decubitus ulcer, FTT s/p PEG 11/05/18 Plan: -Continue empiric IV Vancomycin #11/03 for PNA pending sp cx -Cont Empiric MEropenem #4/ for UTI and pNA (abx d #/ for PsA sacral OM) -11/12 SP Cefepime #2 -11/10 SP IV Vancomycin #32, Zosyn #23 - 10/19 Sp Ceftriaxone #8 -10/12/18 SP Cefepime #3 -f/u sp cx -Monitor CBC/CMP, temperatures -wound care per surgical team -PEG care -aspiration precautions Subjective Constitutional: Denies: no symptoms, fever, chills, fatigue, anorexia, drenching sweats, other Allergies: Coded Allergies: No Known Allergies (Unverified , 09/27/18) Objective Vital Signs Last 24 Hour Vital Signs Date Time Temp Pulse Resp B/P (MAP) Pulse Ox O2 Delivery O2 Flow Rate FiO2 11/15/18 19:16 96 Nasal Cannula 4.0 36 11/15/18 18:48 118 134/81 11/15/18 16:00 98.7 112 20 137/86 (103) 94 11/15/18 16:00 4.0 11/15/18 12:00 4.0 11/15/18 12:00 97.7 115 18 141/89 (106) 97 11/15/18 09:00 98.3 115 16 140/82 (101) 94 11/15/18 09:00 Nasal Cannula 4.0 11/15/18 08:15 98 Nasal Cannula 4.0 36 11/15/18 08:00 4.0 11/15/18 08:00 97.6 119 16 140/88 (105) 94 11/15/18 05:16 105 17 98 Facial 45 11/15/18 04:00 98.6 102 16 119/77 (91) 97 11/15/18 04:00 4.0 11/15/18 02:51 107 17 98 Facial 45 11/15/18 01:14 105 16 98 Facial 45 11/15/18 00:00 99.2 100 20 128/85 (99) 95 11/14/18 23:24 111 18 97 Facial 45 11/14/18 21:00 Nasal Cannula 4.0 Height (Feet): 5 Height (Inches): 6.00 Weight (Pounds): 150 HEENT: atraumatic Respiratory/Chest: no accessory muscle use Cardiovascular: regularly irregular Abdomen: no organomegaly Laboratory Tests Test 11/14/18 20:18 11/15/18 06:48 Vancomycin Level Trough 7.2 ug/mL (5.0-12.0) White Blood Count 5.3 K/UL (4.8-10.8) Red Blood Count 2.61 M/UL (4.70-6.10) L Hemoglobin 8.0 G/DL (14.2-18.0) L Hematocrit 24.0 % (42.0-52.0) L Mean Corpuscular Volume 92 FL (80-99) Mean Corpuscular Hemoglobin 30.5 PG (27.0-31.0) Mean Corpuscular Hemoglobin Concent 33.3 G/DL (32.0-36.0) Red Cell Distribution Width 14.4 % (11.6-14.8) Platelet Count 180 K/UL (150-450) Mean Platelet Volume 6.9 FL (6.5-10.1) Neutrophils (%) (Auto) % (45.0-75.0) Lymphocytes (%) (Auto) % (20.0-45.0) Monocytes (%) (Auto) % (1.0-10.0) Eosinophils (%) (Auto) % (0.0-3.0) Basophils (%) (Auto) % (0.0-2.0) Differential Total Cells Counted 100 Neutrophils % (Manual) 92 % (45-75) H Lymphocytes % (Manual) 4 % (20-45) L Monocytes % (Manual) 4 % (1-10) Eosinophils % (Manual) 0 % (0-3) Basophils % (Manual) 0 % (0-2) Band Neutrophils 0 % (0-8) Platelet Estimate Adequate Platelet Morphology Normal Polychromasia 1+ Anisocytosis 1+ Sodium Level 141 MMOL/L (136-145) Potassium Level 3.7 MMOL/L (3.5-5.1) Chloride Level 106 MMOL/L (98-107) Carbon Dioxide Level 31 MMOL/L (21-32) Anion Gap 4 mmol/L (5-15) L Blood Urea Nitrogen 16 mg/dL (7-18) Creatinine 0.5 MG/DL (0.55-1.30) L Estimat Glomerular Filtration Rate > 60 mL/min (>60) Glucose Level 256 MG/DL (74-106) H Calcium Level 7.7 MG/DL (8.5-10.1) L Current Medications Medications (Trade) Dose Ordered Sig/Chace Route PRN Reason Start Time Stop Time Status Last Admin Dose Admin Dextrose (Dextrose 50%) 25 ml Q30M PRN IV Hypoglycemia 11/12/18 20:30 12/10/18 14:29 Dextrose (Dextrose 50%) 50 ml Q30M PRN IV Hypoglycemia 11/12/18 20:30 12/11/18 17:59 Heparin Sodium (Porcine) (Heparin 5000 units/ml) 5,000 units EVERY 12 HOURS SUBQ 11/12/18 21:00 12/10/18 20:59 11/15/18 08:18 Insulin Aspart (NovoLOG) EVERY 6 HOURS SUBQ 11/13/18 00:00 12/10/18 17:59 11/15/18 17:54 Lorazepam (Ativan 2mg/ml 1ml) 0.5 mg Q4H PRN IV For Anxiety 11/12/18 20:30 11/17/18 20:29 Meropenem 1 gm/ Sodium Chloride 55 ml @ 110 mls/hr Q8HR IVPB 11/12/18 22:00 11/17/18 13:59 11/15/18 14:15 Metoprolol Tartrate (Lopressor) 25 mg Q12HR GT 11/16/18 09:00 12/15/18 20:59 Midodrine (Pro-Amatine) 10 mg THREE TIMES A DAY GT 11/16/18 09:00 12/12/18 12:59 Morphine Sulfate (Morphine Sulfate) 1 mg Q4H PRN IVP For Pain 11/12/18 20:30 11/17/18 20:29 Ondansetron HCl (Zofran) 4 mg Q6H PRN IVP Nausea & Vomiting 11/12/18 20:30 12/12/18 20:29 Poloxamer (PluroGel) 1 applic Q3D TOPIC 11/14/18 16:00 12/11/18 15:59 11/14/18 16:50 Sitagliptin Phosphate (Januvia) 50 mg DAILY GT 11/16/18 09:00 12/11/18 08:59 Sodium Chloride 1,000 ml @ 100 mls/hr Q10H IV 11/12/18 20:30 12/11/18 11:07 11/15/18 06:30 Tamsulosin HCl (Flomax) 0.4 mg BEDTIME ORAL 11/12/18 21:00 12/10/18 20:59 11/14/18 21:49 Vancomycin HCl (Vanco rx to dose) 1 ea DAILY PRN MISC Per rx protocol 11/12/18 20:30 6/22/19 20:29 Vancomycin HCl 750 mg/Sodium Chloride 275 ml @ 183.333 mls/hr Q8HR IVPB 11/14/18 22:30 11/19/18 22:29 11/15/18 15:10 Zinc Sulfate (Zinc Sulfate) 220 mg DAILY GT 11/16/18 09:00 11/22/18 08:59 Alex Carias MD November 15, 2018 20:03
--- NOTE | 2018-11-15 20:40 | NUR ---
NURSE NOTES: PATIENT NOTED WITH FEVER OF 100.7, NOTIFIED DR BARBOZA, RECEIVED ORDER FOR STAT BLOOD CULTURE. CARRIED OUT. TYLENOL GIVEN WITH COOLING MEASURES.
[2018-11-15] MEDS: Tamsulosin 0.4mg cap ORAL SCH (20:45)
[2018-11-15] MEDS ORDERED: Metoprolol 25mg tab GT SCH (21:00)
--- NOTE | 2018-11-15 21:20 | NUR ---
NURSE NOTES: TEMP DROPPED TO 99.5, WILL CONT MONITOR CLOSELY.
[2018-11-15] MEDS: Vancomycin 1gm/D5W 275ml IVPB SCH ×2 (22:47)
[2018-11-16] VITALS (7 sets, daily range): BP systolic 104–149; BP diastolic 66–97
[2018-11-16] MEDS: Vancomycin 1gm/D5W 275ml IVPB SCH ×6 (00:18→15:27)
[2018-11-16] MEDS: Meropenem 1 GM in NS 55 ML IVPB SCH ×3 (04:52→21:54)
[2018-11-16] MEDS: NovoLOG Insulin Flexpen SUBQ SCH ×3 (05:25→18:16)
[2018-11-16 06:48] LABS: HEMATOCRIT 23.8 % (42.0-52.0); MEAN CORPUSCULAR VOLUME 92 FL (80-99); PLATELET COUNT 199 K/UL (150-450); RED BLOOD COUNT 2.58 M/UL (4.70-6.10); RED CELL DISTRIBUTION WIDTH 14.7 % (11.6-14.8); WHITE BLOOD COUNT 5.7 K/UL (4.8-10.8)
[2018-11-16 07:09] LABS: ANION GAP 3 mmol/L (5-15); BLOOD UREA NITROGEN 15 mg/dL (7-18); CALCIUM 7.9 MG/DL (8.5-10.1); CARBON DIOXIDE 32 MMOL/L (21-32); CHLORIDE 104 MMOL/L (98-107); CREATININE 0.6 MG/DL (0.55-1.30); POTASSIUM 4.1 MMOL/L (3.5-5.1); SODIUM 139 MMOL/L (136-145)
--- NOTE | 2018-11-16 07:24 | NUR ---
NURSE NOTES: received report from CHIDI Kohler. patient in bed. non verbal. alert. no respiratory distress noted with O2 4L via NC. GTF running at 50/hr. dressing intact. F/c for retention draining. IV RH running NS100/hr. HOB at all times. bed in the lowest position . call light within reach. alarm on. will continue to monitor.
[2018-11-16] MEDS: Midodrine 10mg tab GT SCH ×3 (08:45→18:12)
[2018-11-16] MEDS: sitaGLIPtin 50mg tab GT SCH (08:45)
[2018-11-16] MEDS: Zinc Sulfate 220mg cap GT SCH (08:45)
[2018-11-16] MEDS: Metoprolol 25mg tab GT SCH ×2 (08:46→21:53)
[2018-11-16] MEDS: Heparin 5000 units/ml inj SUBQ SCH ×2 (08:47→21:54)
--- NOTE | 2018-11-16 11:00 | NUR ---
NURSE NOTES: RN changed the dressing on sacral area pressure injury d/t soiled. provide tx as ordered. keep dressing clean and dry.
--- NOTE | 2018-11-16 13:34 | Internal Med Progress Note ---
Subjective Date of Service: November 16, 2018 Physician Name Jesus Kidd Attending Physician Camacho Braun MD Current Medications Medications (Trade) Dose Ordered Sig/Chace Route PRN Reason Start Time Stop Time Status Last Admin Dose Admin Acetaminophen (Tylenol) 650 mg Q4H PRN ORAL Mild Pain/Temp > 100.5 11/15/18 20:45 12/15/18 20:44 11/15/18 20:45 Dextrose (Dextrose 50%) 25 ml Q30M PRN IV Hypoglycemia 11/12/18 20:30 12/10/18 14:29 Dextrose (Dextrose 50%) 50 ml Q30M PRN IV Hypoglycemia 11/12/18 20:30 12/11/18 17:59 Heparin Sodium (Porcine) (Heparin 5000 units/ml) 5,000 units EVERY 12 HOURS SUBQ 11/12/18 21:00 12/10/18 20:59 11/16/18 08:47 Insulin Aspart (NovoLOG) EVERY 6 HOURS SUBQ 11/13/18 00:00 12/10/18 17:59 11/16/18 12:02 Lorazepam (Ativan 2mg/ml 1ml) 0.5 mg Q4H PRN IV For Anxiety 11/12/18 20:30 11/17/18 20:29 Meropenem 1 gm/ Sodium Chloride 55 ml @ 110 mls/hr Q8HR IVPB 11/12/18 22:00 11/17/18 13:59 11/16/18 13:29 Metoprolol Tartrate (Lopressor) 25 mg Q12HR GT 11/16/18 09:00 12/15/18 20:59 11/16/18 08:46 Midodrine (Pro-Amatine) 10 mg THREE TIMES A DAY GT 11/16/18 09:00 12/12/18 12:59 11/16/18 12:56 Morphine Sulfate (Morphine Sulfate) 1 mg Q4H PRN IVP For Pain 11/12/18 20:30 11/17/18 20:29 11/16/18 11:56 Ondansetron HCl (Zofran) 4 mg Q6H PRN IVP Nausea & Vomiting 11/12/18 20:30 12/12/18 20:29 Poloxamer (PluroGel) 1 applic Q3D TOPIC 11/14/18 16:00 12/11/18 15:59 11/14/18 16:50 Sitagliptin Phosphate (Januvia) 50 mg DAILY GT 11/16/18 09:00 12/11/18 08:59 11/16/18 08:45 Sodium Chloride 1,000 ml @ 100 mls/hr Q10H IV 11/12/18 20:30 12/11/18 11:07 11/16/18 04:47 Tamsulosin HCl (Flomax) 0.4 mg BEDTIME ORAL 11/12/18 21:00 12/10/18 20:59 11/15/18 20:45 Vancomycin HCl (Vanco rx to dose) 1 ea DAILY PRN MISC Per rx protocol 11/12/18 20:30 12/12/18 20:29 Vancomycin HCl 1 gm/Dextrose 275 ml @ 183.708 mls/hr Q8H IVPB 11/15/18 23:00 11/20/18 22:59 11/16/18 06:00 Zinc Sulfate (Zinc Sulfate) 220 mg DAILY GT 11/16/18 09:00 11/22/18 08:59 11/16/18 08:45 Allergies: Coded Allergies: No Known Allergies (Unverified , 09/27/18) ROS Limited/Unobtainable: Yes Subjective 68 YO M admitted with respiratory failure. Now Pneumonia and sinus tachycardia. Cover for Int Med-Dr Braun. Off BIPAP; tolerating nasal canula Objective Last Vital Signs Date Time Temp Pulse Resp B/P (MAP) Pulse Ox O2 Delivery O2 Flow Rate FiO2 11/16/18 12:59 98.3 105 21 104/66 (79) 93 11/16/18 12:00 4.0 11/16/18 09:00 Nasal Cannula 11/16/18 06:58 36 Laboratory Tests Test 11/15/18 21:10 11/16/18 05:25 Vancomycin Level Trough 12.3 ug/mL (5.0-12.0) H White Blood Count 5.7 K/UL (4.8-10.8) Red Blood Count 2.58 M/UL (4.70-6.10) L Hemoglobin 8.0 G/DL (14.2-18.0) L Hematocrit 23.8 % (42.0-52.0) L Mean Corpuscular Volume 92 FL (80-99) Mean Corpuscular Hemoglobin 30.9 PG (27.0-31.0) Mean Corpuscular Hemoglobin Concent 33.5 G/DL (32.0-36.0) Red Cell Distribution Width 14.7 % (11.6-14.8) Platelet Count 199 K/UL (150-450) Mean Platelet Volume 7.1 FL (6.5-10.1) Neutrophils (%) (Auto) % (45.0-75.0) Lymphocytes (%) (Auto) % (20.0-45.0) Monocytes (%) (Auto) % (1.0-10.0) Eosinophils (%) (Auto) % (0.0-3.0) Basophils (%) (Auto) % (0.0-2.0) Differential Total Cells Counted 100 Neutrophils % (Manual) 73 % (45-75) Lymphocytes % (Manual) 6 % (20-45) L Monocytes % (Manual) 5 % (1-10) Eosinophils % (Manual) 1 % (0-3) Basophils % (Manual) 0 % (0-2) Band Neutrophils 15 % (0-8) H Platelet Estimate Adequate Platelet Morphology Normal Polychromasia 1+ Anisocytosis 1+ Sodium Level 139 MMOL/L (136-145) Potassium Level 4.1 MMOL/L (3.5-5.1) Chloride Level 104 MMOL/L (98-107) Carbon Dioxide Level 32 MMOL/L (21-32) Anion Gap 3 mmol/L (5-15) L Blood Urea Nitrogen 15 mg/dL (7-18) Creatinine 0.6 MG/DL (0.55-1.30) Estimat Glomerular Filtration Rate > 60 mL/min (>60) Glucose Level 259 MG/DL (74-106) H Calcium Level 7.9 MG/DL (8.5-10.1) L Intake and Output 11/15/18 11/16/18 19:00 07:00 Intake Total 1560.000 ml 750 ml Output Total 700 ml 600 ml Balance 860.000 ml 150 ml Intake Free Water 230 ml 200 ml IV Total 730.000 ml Tube Feeding 600 ml 550 ml Output Urine Total 700 ml 600 ml Objective General Appearance: WD/WN, moderate distress EENT: PERRL/EOMI, normal ENT inspection Neck: non-tender, normal alignment, supple, normal inspection Cardiovascular: normal peripheral pulses, regular rhythm, no gallop/murmur, no JVD, tachycardia Respiratory/Chest: Nasal canula; chest wall non-tender, crackles/rales, rhonchi - bilaterally, expiratory wheezing Abdomen: normal bowel sounds, non tender, soft, no organomegaly, no mass Extremities: normal range of motion, non-tender 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 1. Altered mental status. 2. Respiratory failure. 3. Hypertension. 4. Dysphagia. 5. Failure to thrive. 6. Encephalopathy. 7. Brain cancer. 8. Seizure disorder. 9. Diabetes type 2. 10. Cerebrovascular disease. 11. Right hemiparesis. 12. Hypertension. 13. Coronary artery disease. 14. Expressive aphasia. 15. Pneumonia=staph aureus 16. UTI=pseudamonas TREATMENT: 1. Respiratory failure. Off BIPAP; tolerating nasal canula. Pulmonary consultation has been obtained with Dr. Raul Feng. We will follow recommendations of Pulmonary. 2. Altered mental status is probably secondary to hypoxia as above. 3. Dysphagia. The patient is status post PEG placement on 11/05/2018. 4. Failure to thrive. 5. Encephalopathy. 6. Brain cancer. 7. Seizure disorder. Continue Depakote and Vimpat as above. 8. Diabetes type 2. Continue Humalog sliding scale as above. 9. Cerebrovascular disease. 10. Right hemiparesis. 11. Hypertension. 12. Coronary artery disease. 13. Expressive aphasia. 14. Continue vanco and meropenem per Inf Dis 15. D/W son Charli at bedside Jesus Kidd MD November 16, 2018 13:34
--- NOTE | 2018-11-16 13:59 | Cardiac Electrophysiology PN ---
Assessment/Plan Assessment/Plan 1. Sinus tachycardia 140s due to sepsis. Was on BiPAP. ECG no acute ST-T changes. Repeat ECG 11/15/18 showed sinus tach 110. Likely Beta radha withdrawal. Better on Metoprolol 25 GT bid 2. Troponin elevation at 0.297 increased to 0.86. The patient does not have renal failure. Echo EF 45% 3. S/P Septic shock . Echo EF 45-50%. On iv Abx per ID 4. Diabetes. 5. History of CVA. 6. Dysphagia, status post PEG placement. 7. Status post sacral decubitus debridement. 8. Seizure disorder, on Depakote. 9. Hypertension.On Metoprolol 25 bid 10. Brain tumor, status post surgery. 11. DNR DW RN Subjective Subjective Nonverbal. No events. Placement pending Objective Last 24 Hour Vital Signs Date Time Temp Pulse Resp B/P (MAP) Pulse Ox O2 Delivery O2 Flow Rate FiO2 11/16/18 12:59 98.3 105 21 104/66 (79) 93 11/16/18 12:00 4.0 11/16/18 12:00 98.3 105 21 149/97 (114) 93 11/16/18 09:00 Nasal Cannula 4.0 11/16/18 08:46 105 129/80 11/16/18 08:00 98.8 105 21 129/80 (96) 96 11/16/18 08:00 4.0 11/16/18 06:58 95 Nasal Cannula 4.0 36 11/16/18 04:40 102 17 97 Facial 45 11/16/18 04:00 4.0 11/16/18 04:00 99.1 104 18 122/75 (91) 100 11/16/18 03:22 101 16 96 Facial 45 11/16/18 01:27 106 16 94 Facial 45 11/16/18 00:00 98.5 102 18 107/69 (82) 98 11/15/18 23:09 104 22 94 Facial 45 11/15/18 21:15 99.5 11/15/18 21:15 99.5 11/15/18 21:00 Nasal Cannula 4.0 11/15/18 20:00 4.0 11/15/18 20:00 100.7 102 20 132/77 (95) 94 11/15/18 19:16 96 Nasal Cannula 4.0 36 11/15/18 18:48 118 134/81 11/15/18 16:00 98.7 112 20 137/86 (103) 94 11/15/18 16:00 4.0 Intake and Output 11/15/18 11/16/18 18:59 06:59 Intake Total 1560.000 ml 800 ml Output Total 700 ml 600 ml Balance 860.000 ml 200 ml Intake Free Water 230 ml 200 ml IV Total 730.000 ml Tube Feeding 600 ml 600 ml Output Urine Total 700 ml 600 ml Laboratory Tests Test 11/15/18 21:10 11/16/18 05:25 Vancomycin Level Trough 12.3 ug/mL (5.0-12.0) H White Blood Count 5.7 K/UL (4.8-10.8) Red Blood Count 2.58 M/UL (4.70-6.10) L Hemoglobin 8.0 G/DL (14.2-18.0) L Hematocrit 23.8 % (42.0-52.0) L Mean Corpuscular Volume 92 FL (80-99) Mean Corpuscular Hemoglobin 30.9 PG (27.0-31.0) Mean Corpuscular Hemoglobin Concent 33.5 G/DL (32.0-36.0) Red Cell Distribution Width 14.7 % (11.6-14.8) Platelet Count 199 K/UL (150-450) Mean Platelet Volume 7.1 FL (6.5-10.1) Neutrophils (%) (Auto) % (45.0-75.0) Lymphocytes (%) (Auto) % (20.0-45.0) Monocytes (%) (Auto) % (1.0-10.0) Eosinophils (%) (Auto) % (0.0-3.0) Basophils (%) (Auto) % (0.0-2.0) Differential Total Cells Counted 100 Neutrophils % (Manual) 73 % (45-75) Lymphocytes % (Manual) 6 % (20-45) L Monocytes % (Manual) 5 % (1-10) Eosinophils % (Manual) 1 % (0-3) Basophils % (Manual) 0 % (0-2) Band Neutrophils 15 % (0-8) H Platelet Estimate Adequate Platelet Morphology Normal Polychromasia 1+ Anisocytosis 1+ Sodium Level 139 MMOL/L (136-145) Potassium Level 4.1 MMOL/L (3.5-5.1) Chloride Level 104 MMOL/L (98-107) Carbon Dioxide Level 32 MMOL/L (21-32) Anion Gap 3 mmol/L (5-15) L Blood Urea Nitrogen 15 mg/dL (7-18) Creatinine 0.6 MG/DL (0.55-1.30) Estimat Glomerular Filtration Rate > 60 mL/min (>60) Glucose Level 259 MG/DL (74-106) H Calcium Level 7.9 MG/DL (8.5-10.1) L Objective HEAD AND NECK: No JVD on Nasal cannula . LUNGS: Coarse rhonchi bilaterally. CARDIOVASCULAR: Regular S1, S2 with no gallop or murmur. ABDOMEN: Soft. Status post G-tube. EXTREMITIES: No pitting edema. Huy Valladares MD November 16, 2018 13:59
--- NOTE | 2018-11-16 15:34 | Pulmonology Progress Note ---
Assessment/Plan Problems: (1) Acute encephalopathy (2) Uncontrolled seizures (3) Sacral decubitus ulcer (4) Severe malnutrition (5) History of CVA (cerebrovascular accident) (6) Brain tumor (7) Oligodendroglioma (8) Hypertension (9) Diabetes mellitus (10) Anemia Assessment/Plan mental status better needs restrains, since pulling on Gtube no more seizures for the last 24 hours no new complains continue current regimen dc planning Subjective ROS Limited/Unobtainable: No Constitutional: Reports: no symptoms HEENT: Repors: no symptoms Respiratory: Reports: no symptoms Allergies: Coded Allergies: No Known Allergies (Unverified , 09/27/18) Objective Last 24 Hour Vital Signs Date Time Temp Pulse Resp B/P (MAP) Pulse Ox O2 Delivery O2 Flow Rate FiO2 11/16/18 12:59 98.3 105 21 104/66 (79) 93 11/16/18 12:00 4.0 11/16/18 12:00 98.3 105 21 149/97 (114) 93 11/16/18 09:00 Nasal Cannula 4.0 11/16/18 08:46 105 129/80 11/16/18 08:00 98.8 105 21 129/80 (96) 96 11/16/18 08:00 4.0 11/16/18 06:58 95 Nasal Cannula 4.0 36 11/16/18 04:40 102 17 97 Facial 45 11/16/18 04:00 4.0 11/16/18 04:00 99.1 104 18 122/75 (91) 100 11/16/18 03:22 101 16 96 Facial 45 11/16/18 01:27 106 16 94 Facial 45 11/16/18 00:00 98.5 102 18 107/69 (82) 98 11/15/18 23:09 104 22 94 Facial 45 11/15/18 21:15 99.5 11/15/18 21:15 99.5 11/15/18 21:00 Nasal Cannula 4.0 11/15/18 20:00 4.0 11/15/18 20:00 100.7 102 20 132/77 (95) 94 11/15/18 19:16 96 Nasal Cannula 4.0 36 11/15/18 18:48 118 134/81 11/15/18 16:00 98.7 112 20 137/86 (103) 94 11/15/18 16:00 4.0 Intake and Output 11/15/18 11/16/18 18:59 06:59 Intake Total 1560.000 ml 800 ml Output Total 700 ml 600 ml Balance 860.000 ml 200 ml Intake Free Water 230 ml 200 ml IV Total 730.000 ml Tube Feeding 600 ml 600 ml Output Urine Total 700 ml 600 ml Objective General Appearance: cachetic HEENT: normocephalic, atraumatic Respiratory/Chest: chest wall non-tender, lungs clear Cardiovascular: normal peripheral pulses, normal rate Abdomen: normal bowel sounds, no organomegaly Extremities: no cyanosis Skin: no lesions Laboratory Tests 11/15/18 21:10: Vancomycin Level Trough 12.3H 11/16/18 05:25: White Blood Count 5.7, Red Blood Count 2.58L, Hemoglobin 8.0L, Hematocrit 23.8L , Mean Corpuscular Volume 92, Mean Corpuscular Hemoglobin 30.9, Mean Corpuscular Hemoglobin Concent 33.5, Red Cell Distribution Width 14.7, Platelet Count 199, Mean Platelet Volume 7.1, Neutrophils (%) (Auto) , Lymphocytes (%) ( Auto) , Monocytes (%) (Auto) , Eosinophils (%) (Auto) , Basophils (%) (Auto) , Differential Total Cells Counted 100, Neutrophils % (Manual) 73, Lymphocytes % ( Manual) 6L, Monocytes % (Manual) 5, Eosinophils % (Manual) 1, Basophils % ( Manual) 0, Band Neutrophils 15H, Platelet Estimate Adequate, Platelet Morphology Normal, Polychromasia 1+, Anisocytosis 1+, Sodium Level 139, Potassium Level 4.1, Chloride Level 104, Carbon Dioxide Level 32, Anion Gap 3L, Blood Urea Nitrogen 15, Creatinine 0.6, Estimat Glomerular Filtration Rate > 60 , Glucose Level 259H, Calcium Level 7.9L Current Medications Medications (Trade) Dose Ordered Sig/Chace Route PRN Reason Start Time Stop Time Status Last Admin Dose Admin Acetaminophen (Tylenol) 650 mg Q4H PRN ORAL Mild Pain/Temp > 100.5 11/15/18 20:45 12/15/18 20:44 11/15/18 20:45 Dextrose (Dextrose 50%) 25 ml Q30M PRN IV Hypoglycemia 11/12/18 20:30 12/10/18 14:29 Dextrose (Dextrose 50%) 50 ml Q30M PRN IV Hypoglycemia 11/12/18 20:30 12/11/18 17:59 Heparin Sodium (Porcine) (Heparin 5000 units/ml) 5,000 units EVERY 12 HOURS SUBQ 11/12/18 21:00 12/10/18 20:59 11/16/18 08:47 Insulin Aspart (NovoLOG) EVERY 6 HOURS SUBQ 11/13/18 00:00 12/10/18 17:59 11/16/18 12:02 Lorazepam (Ativan 2mg/ml 1ml) 0.5 mg Q4H PRN IV For Anxiety 11/12/18 20:30 11/17/18 20:29 Meropenem 1 gm/ Sodium Chloride 55 ml @ 110 mls/hr Q8HR IVPB 11/12/18 22:00 11/21/18 21:59 11/16/18 13:29 Metoprolol Tartrate (Lopressor) 25 mg Q12HR GT 11/16/18 09:00 12/15/18 20:59 11/16/18 08:46 Midodrine (Pro-Amatine) 10 mg THREE TIMES A DAY GT 11/16/18 09:00 12/12/18 12:59 11/16/18 12:56 Morphine Sulfate (Morphine Sulfate) 1 mg Q4H PRN IVP For Pain 11/12/18 20:30 11/17/18 20:29 11/16/18 11:56 Ondansetron HCl (Zofran) 4 mg Q6H PRN IVP Nausea & Vomiting 11/12/18 20:30 12/12/18 20:29 Poloxamer (PluroGel) 1 applic Q3D TOPIC 11/14/18 16:00 12/11/18 15:59 11/14/18 16:50 Sitagliptin Phosphate (Januvia) 50 mg DAILY GT 11/16/18 09:00 12/11/18 08:59 11/16/18 08:45 Sodium Chloride 1,000 ml @ 100 mls/hr Q10H IV 11/12/18 20:30 12/11/18 11:07 11/16/18 14:26 Tamsulosin HCl (Flomax) 0.4 mg BEDTIME ORAL 11/12/18 21:00 12/10/18 20:59 11/15/18 20:45 Vancomycin HCl (Vanco rx to dose) 1 ea DAILY PRN MISC Per rx protocol 11/12/18 20:30 12/12/18 20:29 Vancomycin HCl 1 gm/Dextrose 275 ml @ 183.708 mls/hr Q8H IVPB 11/15/18 23:00 11/20/18 22:59 11/16/18 15:27 Zinc Sulfate (Zinc Sulfate) 220 mg DAILY GT 11/16/18 09:00 11/22/18 08:59 11/16/18 08:45 Raul Feng MD November 16, 2018 15:34
--- NOTE | 2018-11-16 19:28 | NUR ---
HAND-OFF: Report given to CHIDI Murrell.
--- NOTE | 2018-11-16 19:29 | NUR ---
NURSE NOTES: PATIENT IN BED. NO SOB, NO ACUTE DISTRESS, ON 4L O2 VIA N/C. IV ON Right hand INTACT, PATENT RUNNING IVF. ON GT FEEDING, TOLERATING WELL. HOB UP. F/C DRAINING URINE BY GRAVITY. BED IN LOWEST POSITION, LOCKED, ALARMS ON. CALL LIGHT IN REACH.
--- NOTE | 2018-11-16 19:39 | Surgery Progress Note ---
Surgery Progress Note Subjective Procedure Performed left subclavian central venous catheter insertion Additional Comments afebrile, HD Stable, tachy, labs improved. no n/v/f/c. tolerating feeds. no complaints. Objective Last 24 Hour Vital Signs Date Time Temp Pulse Resp B/P (MAP) Pulse Ox O2 Delivery O2 Flow Rate FiO2 11/16/18 16:00 98.8 104 21 122/67 (85) 96 11/16/18 16:00 4.0 11/16/18 12:59 98.3 105 21 104/66 (79) 93 11/16/18 12:00 4.0 11/16/18 12:00 98.3 105 21 149/97 (114) 93 11/16/18 09:00 Nasal Cannula 4.0 11/16/18 08:46 105 129/80 11/16/18 08:00 98.8 105 21 129/80 (96) 96 11/16/18 08:00 4.0 11/16/18 06:58 95 Nasal Cannula 4.0 36 11/16/18 04:40 102 17 97 Facial 45 11/16/18 04:00 4.0 11/16/18 04:00 99.1 104 18 122/75 (91) 100 11/16/18 03:22 101 16 96 Facial 45 11/16/18 01:27 106 16 94 Facial 45 11/16/18 00:00 98.5 102 18 107/69 (82) 98 11/15/18 23:09 104 22 94 Facial 45 11/15/18 21:15 99.5 11/15/18 21:15 99.5 11/15/18 21:00 Nasal Cannula 4.0 11/15/18 20:00 4.0 11/15/18 20:00 100.7 102 20 132/77 (95) 94 I&O Intake and Output 11/15/18 11/16/18 18:59 06:59 Intake Total 1560.000 ml 800 ml Output Total 700 ml 600 ml Balance 860.000 ml 200 ml Intake Free Water 230 ml 200 ml IV Total 730.000 ml Tube Feeding 600 ml 600 ml Output Urine Total 700 ml 600 ml Dressing: saturated Wound: other Drains: other Cardiovascular: RSR Respiratory: clear Abdomen: soft, present bowel sounds, non-distended Extremities: no cyanosis Laboratory Tests Test 11/15/18 21:10 11/16/18 05:25 Vancomycin Level Trough 12.3 ug/mL (5.0-12.0) H White Blood Count 5.7 K/UL (4.8-10.8) Red Blood Count 2.58 M/UL (4.70-6.10) L Hemoglobin 8.0 G/DL (14.2-18.0) L Hematocrit 23.8 % (42.0-52.0) L Mean Corpuscular Volume 92 FL (80-99) Mean Corpuscular Hemoglobin 30.9 PG (27.0-31.0) Mean Corpuscular Hemoglobin Concent 33.5 G/DL (32.0-36.0) Red Cell Distribution Width 14.7 % (11.6-14.8) Platelet Count 199 K/UL (150-450) Mean Platelet Volume 7.1 FL (6.5-10.1) Neutrophils (%) (Auto) % (45.0-75.0) Lymphocytes (%) (Auto) % (20.0-45.0) Monocytes (%) (Auto) % (1.0-10.0) Eosinophils (%) (Auto) % (0.0-3.0) Basophils (%) (Auto) % (0.0-2.0) Differential Total Cells Counted 100 Neutrophils % (Manual) 73 % (45-75) Lymphocytes % (Manual) 6 % (20-45) L Monocytes % (Manual) 5 % (1-10) Eosinophils % (Manual) 1 % (0-3) Basophils % (Manual) 0 % (0-2) Band Neutrophils 15 % (0-8) H Platelet Estimate Adequate Platelet Morphology Normal Polychromasia 1+ Anisocytosis 1+ Sodium Level 139 MMOL/L (136-145) Potassium Level 4.1 MMOL/L (3.5-5.1) Chloride Level 104 MMOL/L (98-107) Carbon Dioxide Level 32 MMOL/L (21-32) Anion Gap 3 mmol/L (5-15) L Blood Urea Nitrogen 15 mg/dL (7-18) Creatinine 0.6 MG/DL (0.55-1.30) Estimat Glomerular Filtration Rate > 60 mL/min (>60) Glucose Level 259 MG/DL (74-106) H Calcium Level 7.9 MG/DL (8.5-10.1) L Plan Problems: (1) Sacral decubitus ulcer Assessment & Plan: Pt presented on admission with 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 Base is viable with some slough .Bone is palpable. undermining clockwise 9-6o'clock ,at 12 o'clock base of wound is necrotic.mixed slough and soft necrosis noted along borders. Periwound erythematous and indurated.Mild odor resolved after cleansing of wound. No exudate noted. Both heels are firm and blanchable. No evidence of skin breakdown noted to all other bony prominences. Tx.Plan: Cleanse wound with Saline. pleurogel q3day .Apply Triad paste periwound. Cover with Optifoam drsg Apply Cavilon Skin Barrier to both heels .Cover each heel with Optifoam drsg. Change every 7 days and prn Apply Cavilon Skin Barrier to both hips. Cover each hip with Optifoam drsg. Change every 7 days and prn. Air fluidized mattress. Reposition at least every 2hours or as tolerated. Off-load heels with pillow. Can plan for continued care based on above recommendations when discharged. (2) Severe malnutrition Assessment & Plan: DAILY ESTIMATED NEEDS: Needs based on Advanced wound, wt loss/ 57kg 30-35 kcals/kg 1216-2287 total kcals 1.5-2.0 g protein/kg 86-114 g total protein 25-30 mL/kg 9660-0557 total fluid mLs NUTRITION DIAGNOSIS: * Increased kcal/prot needs R/T wound healing, wt loss as evidenced by sacral stage 4 wound, possible significant wt loss of 19lbs/ 13.4% in ~1 month. * Swallowing difficulty R/T dysphagia w/ h/o brain tumor and CVA as evidenced by s/p recent PEG placement, on GT feeding. CURRENT TF:Glucerna 1.2 @ 30ml/hr x 24 hrs- meets 51% est kcal, 50% est prot needs ENTERAL NUTRITION RECOMMENDATIONS: Glucerna 1.5 @ 50ml/hr x 24 hrs to provide 1200ml, 1800kcal, 99g prot, 911ml free water * Rec TF change to Glucerna 1.5 for increased kcal/prot needs * Initiate Glucerna 1.5 @ 20ml/hr x 6 hrs, advance 10ml q 4-6 hrs as tolerated to goal rate. * HOB over 30 degrees/ water fluhs per MD ADDITIONAL RECOMMENDATIONS: * Calibrated bedscale wt for accurate CBW- w/ added P200 mattress * Check lytes daily w/ TF, replete as needed * Wound healing: add Vit C 500mg BID and Ziyad 1pkt BID * Monitor BGs closely, need for tighter regimen (BGs in the 200's) . (3) Failure to thrive (4) Sepsis Assessment & Plan: Cont IV Abx cont tube feeds labs improved Micro with sputum culture improving Harry Rivas November 16, 2018 19:39
--- NOTE | 2018-11-16 20:41 | NUR ---
RESPIRATORY NOTE: UPON DOING O2 ROUNDS PT WAS FOUND WITH AN INCREASED HR OF 118 -121. SPO2 WAS WNL WELL RR. OK DOES NOT APPEAR IN DISTRESS. CHIDI BLOOD WAS NOTIFIED OF INCREASED HR. WILL CONTINNUE TO CLOSELY MONITOR PT.
[2018-11-16] MEDS: Tamsulosin 0.4mg cap ORAL SCH (21:53)
--- NOTE | 2018-11-16 23:48 | NUR ---
RESPIRATORY NOTE: PT PLACED ON BIPAP WITH CURRENT SETTINGS. 25/5, BACK UP RATE OF 16, 45% FIO2. ALARMS ON AND AUDIBLE. PT PLACED ON FACIAL MASK. NO WOUNDS OR REDNESS FOUND UPON FACIAL INSPECTION. NO S/S PF RESPIRATORY DISTRESS NOTED AT THIS TIME. WILL CONTINUE TO MONITOR.
[2018-11-17] VITALS: BP 98/61
[2018-11-17] MEDS: NovoLOG Insulin Flexpen SUBQ SCH ×4 (00:21→18:14)
[2018-11-17 04:00] VITALS: BP 131/86
[2018-11-17] MEDS: Meropenem 1 GM in NS 55 ML IVPB SCH (05:18)
--- NOTE | 2018-11-17 05:42 | NUR ---
RESPIRATORY NOTE: PT TOLERATED NOC BIPAP WELL. FOAM TAPE REMOVED, NO WOUNDS OR REDNESS WERE FOUND UPON FACIAL INSPECTION. PT PLACED ON 4LPM N/C. ALL VS WNL. NO S/S OF RESPIRATORY DISTRESS NOTED AT THIS TIME.
[2018-11-17] MEDS: Vancomycin 1gm/D5W 275ml IVPB SCH ×4 (06:00→14:30)
[2018-11-17 06:23] LABS: HEMATOCRIT 23.5 % (42.0-52.0); HEMOGLOBIN 7.9 G/DL (14.2-18.0); MEAN CORPUSCULAR VOLUME 92 FL (80-99); PLATELET COUNT 219 K/UL (150-450); RED BLOOD COUNT 2.55 M/UL (4.70-6.10); RED CELL DISTRIBUTION WIDTH 14.5 % (11.6-14.8); WHITE BLOOD COUNT 6.9 K/UL (4.8-10.8)
[2018-11-17 07:13] LABS: ANION GAP 5 mmol/L (5-15); BLOOD UREA NITROGEN 13 mg/dL (7-18); CALCIUM 7.8 MG/DL (8.5-10.1); CARBON DIOXIDE 29 MMOL/L (21-32); CHLORIDE 100 MMOL/L (98-107); CREATININE 0.7 MG/DL (0.55-1.30); POTASSIUM 4.2 MMOL/L (3.5-5.1); SODIUM 134 MMOL/L (136-145)
--- NOTE | 2018-11-17 07:40 | NUR ---
NURSE NOTES: Received patient on bed, awake. IV site intact and patent. Dressing dry and intact. Soft wrist restraint on left hand present. Pulse present, no redness or swelling observed. temperature and sensation is normal. Bed in low and locked position, call light in reach. Gtube present and intact and patent. Mota catheter intact and patent. No signs of respiratory distress or pain. Room board updated, will continue to monitor.
--- NOTE | 2018-11-17 07:45 | NUR ---
NURSE NOTES: Received patient on bed, awake. Family at bedside, IV site intact and patent. Bed in low and locked position, call light in reach. No signs of respiratory distress or pain. Room board updated, will continue to monitor.
[2018-11-17 08:00] VITALS: BP 111/75
[2018-11-17] MEDS: Midodrine 10mg tab GT SCH ×3 (09:35→18:13)
[2018-11-17] MEDS: Zinc Sulfate 220mg cap GT SCH (09:35)
[2018-11-17] MEDS: sitaGLIPtin 50mg tab GT SCH (09:35)
[2018-11-17] MEDS: Metoprolol 25mg tab GT SCH (09:36)
[2018-11-17] MEDS: Heparin 5000 units/ml inj SUBQ SCH (09:37)
--- NOTE | 2018-11-17 09:40 | NUR ---
NURSE NOTES: Sacral dressing was changed. Heels and hips dressing also intact
--- NOTE | 2018-11-17 10:40 | NUR ---
NURSE NOTES: MD Valladares made aware of heartrate at 0800 hours (114). Awaiting any new orders.
--- NOTE | 2018-11-17 10:47 | Cardiac Electrophysiology PN ---
Assessment/Plan Assessment/Plan 1. Sinus tachycardia 140s due to sepsis. Was on BiPAP. ECG no acute ST-T changes. Repeat ECG 11/15/18 showed sinus tach 110. Likely Beta radha withdrawal. Now better on Metoprolol 25 bid 2. Troponin elevation at 0.297 increased to 0.86. The patient does not have renal failure. Echo EF 45%. On Lopressor 3. S/P Septic shock . Echo EF 45-50%. On iv Abx per ID 4. Diabetes. 5. History of CVA. 6. Dysphagia, status post PEG placement. 7. Status post sacral decubitus debridement. 8. Seizure disorder, on Depakote. 9. Hypertension.On Metoprolol 25 bid 10. Brain tumor, status post surgery. 11. 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 Was slightly tachycardic earlier Objective Last 24 Hour Vital Signs Date Time Temp Pulse Resp B/P (MAP) Pulse Ox O2 Delivery O2 Flow Rate FiO2 11/17/18 09:36 114 111/75 11/17/18 09:00 95 Nasal Cannula 4.0 36 11/17/18 09:00 Nasal Cannula 4.0 11/17/18 08:00 4.0 11/17/18 08:00 97.1 114 24 111/75 (87) 99 11/17/18 05:42 107 16 94 11/17/18 04:35 105 16 96 Facial 45 11/17/18 04:00 50 11/17/18 04:00 98.9 110 20 131/86 (101) 98 11/17/18 03:05 102 16 93 Facial 45 11/17/18 01:06 96 16 95 Facial 45 11/17/18 00:00 50 11/17/18 00:00 99.8 99 16 98/61 (73) 97 11/16/18 23:48 98 17 93 Facial 45 11/16/18 21:53 114 118/73 11/16/18 21:00 Nasal Cannula 4.0 11/16/18 20:41 118 22 94 Nasal Cannula 4.0 36 11/16/18 20:41 94 Nasal Cannula 4.0 36 11/16/18 20:00 99.8 114 20 118/73 (88) 96 11/16/18 20:00 4.0 11/16/18 16:00 98.8 104 21 122/67 (85) 96 11/16/18 16:00 4.0 11/16/18 12:59 98.3 105 21 104/66 (79) 93 11/16/18 12:00 4.0 11/16/18 12:00 98.3 105 21 149/97 (114) 93 Intake and Output 11/16/18 11/17/18 19:00 07:00 Intake Total 2161.124 ml Output Total 1850 ml Balance 2161.124 ml -1850 ml Intake Free Water 200 ml IV Total 1361.124 ml Tube Feeding 600 ml Output Urine Total 1850 ml Laboratory Tests Test 11/17/18 05:40 White Blood Count 6.9 K/UL (4.8-10.8) Red Blood Count 2.55 M/UL (4.70-6.10) L Hemoglobin 7.9 G/DL (14.2-18.0) L Hematocrit 23.5 % (42.0-52.0) L Mean Corpuscular Volume 92 FL (80-99) Mean Corpuscular Hemoglobin 30.9 PG (27.0-31.0) Mean Corpuscular Hemoglobin Concent 33.5 G/DL (32.0-36.0) Red Cell Distribution Width 14.5 % (11.6-14.8) Platelet Count 219 K/UL (150-450) Mean Platelet Volume 6.9 FL (6.5-10.1) Neutrophils (%) (Auto) % (45.0-75.0) Lymphocytes (%) (Auto) % (20.0-45.0) Monocytes (%) (Auto) % (1.0-10.0) Eosinophils (%) (Auto) % (0.0-3.0) Basophils (%) (Auto) % (0.0-2.0) Differential Total Cells Counted 100 Neutrophils % (Manual) 88 % (45-75) H Lymphocytes % (Manual) 3 % (20-45) L Monocytes % (Manual) 4 % (1-10) Eosinophils % (Manual) 0 % (0-3) Basophils % (Manual) 0 % (0-2) Band Neutrophils 5 % (0-8) Platelet Estimate Adequate Platelet Morphology Normal Polychromasia 1+ Sodium Level 134 MMOL/L (136-145) L Potassium Level 4.2 MMOL/L (3.5-5.1) Chloride Level 100 MMOL/L (98-107) Carbon Dioxide Level 29 MMOL/L (21-32) Anion Gap 5 mmol/L (5-15) Blood Urea Nitrogen 13 mg/dL (7-18) Creatinine 0.7 MG/DL (0.55-1.30) Estimat Glomerular Filtration Rate > 60 mL/min (>60) Glucose Level 247 MG/DL (74-106) H Calcium Level 7.8 MG/DL (8.5-10.1) L Microbiology Date/Time Source Procedure Growth Status 11/15/18 21:10 Blood Blood Culture - Preliminary NO GROWTH AFTER 24 HOURS Resulted Objective HEAD AND NECK: No JVD on Nasal cannula . LUNGS: Coarse rhonchi CARDIOVASCULAR: Regular S1, S2 with no gallop or murmur. ABDOMEN: Soft. Status post G-tube. EXTREMITIES: No pitting edema. Huy Valladares MD November 17, 2018 10:47
[2018-11-17 12:00] VITALS: BP 130/79
--- NOTE | 2018-11-17 13:00 | Pulmonology Progress Note ---
Assessment/Plan Problems: (1) Acute encephalopathy (2) Uncontrolled seizures (3) Sacral decubitus ulcer (4) Severe malnutrition (5) History of CVA (cerebrovascular accident) (6) Brain tumor (7) Oligodendroglioma (8) Hypertension (9) Diabetes mellitus (10) Anemia Assessment/Plan mental status better needs restrains, since pulling on Gtube no more seizures for the last 24 hours no new complains continue current regimen dc planning Subjective ROS Limited/Unobtainable: No Constitutional: Reports: no symptoms HEENT: Repors: no symptoms Respiratory: Reports: no symptoms Allergies: Coded Allergies: No Known Allergies (Unverified , 09/27/18) Objective Last 24 Hour Vital Signs Date Time Temp Pulse Resp B/P (MAP) Pulse Ox O2 Delivery O2 Flow Rate FiO2 11/17/18 09:36 114 111/75 11/17/18 09:00 95 Nasal Cannula 4.0 36 11/17/18 09:00 Nasal Cannula 4.0 11/17/18 08:00 4.0 11/17/18 08:00 97.1 114 24 111/75 (87) 99 11/17/18 05:42 107 16 94 11/17/18 04:35 105 16 96 Facial 45 11/17/18 04:00 50 11/17/18 04:00 98.9 110 20 131/86 (101) 98 11/17/18 03:05 102 16 93 Facial 45 11/17/18 01:06 96 16 95 Facial 45 11/17/18 00:00 50 11/17/18 00:00 99.8 99 16 98/61 (73) 97 11/16/18 23:48 98 17 93 Facial 45 11/16/18 21:53 114 118/73 11/16/18 21:00 Nasal Cannula 4.0 11/16/18 20:41 118 22 94 Nasal Cannula 4.0 36 11/16/18 20:41 94 Nasal Cannula 4.0 36 11/16/18 20:00 99.8 114 20 118/73 (88) 96 11/16/18 20:00 4.0 11/16/18 16:00 98.8 104 21 122/67 (85) 96 11/16/18 16:00 4.0 Intake and Output 11/16/18 11/17/18 19:00 07:00 Intake Total 2161.124 ml 183.708 ml Output Total 1850 ml Balance 2161.124 ml -1666.292 ml Intake Free Water 200 ml IV Total 1361.124 ml 183.708 ml Tube Feeding 600 ml Output Urine Total 1850 ml Objective General Appearance: cachetic HEENT: normocephalic, atraumatic Respiratory/Chest: chest wall non-tender, lungs clear Cardiovascular: normal peripheral pulses, normal rate Abdomen: normal bowel sounds, no organomegaly Extremities: no cyanosis Skin: no lesions Microbiology Date/Time Source Procedure Growth Status 11/15/18 21:10 Blood Blood Culture - Preliminary NO GROWTH AFTER 24 HOURS Resulted Laboratory Tests 11/17/18 05:40: White Blood Count 6.9, Red Blood Count 2.55L, Hemoglobin 7.9L, Hematocrit 23.5L , Mean Corpuscular Volume 92, Mean Corpuscular Hemoglobin 30.9, Mean Corpuscular Hemoglobin Concent 33.5, Red Cell Distribution Width 14.5, Platelet Count 219, Mean Platelet Volume 6.9, Neutrophils (%) (Auto) , Lymphocytes (%) ( Auto) , Monocytes (%) (Auto) , Eosinophils (%) (Auto) , Basophils (%) (Auto) , Differential Total Cells Counted 100, Neutrophils % (Manual) 88H, Lymphocytes % (Manual) 3L, Monocytes % (Manual) 4, Eosinophils % (Manual) 0, Basophils % ( Manual) 0, Band Neutrophils 5, Platelet Estimate Adequate, Platelet Morphology Normal, Polychromasia 1+, Sodium Level 134L, Potassium Level 4.2, Chloride Level 100, Carbon Dioxide Level 29, Anion Gap 5, Blood Urea Nitrogen 13, Creatinine 0.7, Estimat Glomerular Filtration Rate > 60, Glucose Level 247H, Calcium Level 7.8L Current Medications Medications (Trade) Dose Ordered Sig/Chace Route PRN Reason Start Time Stop Time Status Last Admin Dose Admin Acetaminophen (Tylenol) 650 mg Q4H PRN ORAL Mild Pain/Temp > 100.5 11/15/18 20:45 12/15/18 20:44 11/15/18 20:45 Dextrose (Dextrose 50%) 25 ml Q30M PRN IV Hypoglycemia 11/12/18 20:30 12/10/18 14:29 Dextrose (Dextrose 50%) 50 ml Q30M PRN IV Hypoglycemia 11/12/18 20:30 12/11/18 17:59 Heparin Sodium (Porcine) (Heparin 5000 units/ml) 5,000 units EVERY 12 HOURS SUBQ 11/12/18 21:00 12/10/18 20:59 11/17/18 09:37 Insulin Aspart (NovoLOG) EVERY 6 HOURS SUBQ 11/13/18 00:00 12/10/18 17:59 11/17/18 12:50 Lorazepam (Ativan 2mg/ml 1ml) 0.5 mg Q4H PRN IV For Anxiety 11/12/18 20:30 11/17/18 20:29 Meropenem 1 gm/ Sodium Chloride 55 ml @ 110 mls/hr Q8HR IVPB 11/12/18 22:00 11/21/18 21:59 11/17/18 05:18 Metoprolol Tartrate (Lopressor) 25 mg Q12HR GT 11/16/18 09:00 12/15/18 20:59 11/17/18 09:36 Midodrine (Pro-Amatine) 10 mg THREE TIMES A DAY GT 11/16/18 09:00 12/12/18 12:59 11/17/18 12:45 Morphine Sulfate (Morphine Sulfate) 1 mg Q4H PRN IVP For Pain 11/12/18 20:30 11/17/18 20:29 11/16/18 11:56 Ondansetron HCl (Zofran) 4 mg Q6H PRN IVP Nausea & Vomiting 11/12/18 20:30 12/12/18 20:29 Poloxamer (PluroGel) 1 applic Q3D TOPIC 11/14/18 16:00 12/11/18 15:59 11/14/18 16:50 Sitagliptin Phosphate (Januvia) 50 mg DAILY GT 11/16/18 09:00 12/11/18 08:59 11/17/18 09:35 Sodium Chloride 1,000 ml @ 100 mls/hr Q10H IV 11/12/18 20:30 12/11/18 11:07 11/17/18 00:19 Tamsulosin HCl (Flomax) 0.4 mg BEDTIME ORAL 11/12/18 21:00 12/10/18 20:59 11/16/18 21:53 Vancomycin HCl (Vanco rx to dose) 1 ea DAILY PRN MISC Per rx protocol 11/12/18 20:30 12/12/18 20:29 Vancomycin HCl 1 gm/Dextrose 275 ml @ 183.708 mls/hr Q8H IVPB 11/15/18 23:00 11/20/18 22:59 11/17/18 06:00 Zinc Sulfate (Zinc Sulfate) 220 mg DAILY GT 11/16/18 09:00 11/22/18 08:59 11/17/18 09:35 Raul Feng MD November 17, 2018 13:00
--- NOTE | 2018-11-17 13:13 | Infectious Diseases Prog Note ---
Assessment/Plan Assessment/Plan Assessment: Septic Shock- 2ry to UTI - n ow off pressors -u/a wbc 10-15, nit neg, leuk +3; ucx 50-60k Psa (dsouza S) Pneum -CXR" Development of pneumonia versus atelectasis at the left lung base. Correlate clinically -BCx NTD -sp cx MRSA and )PsA #1 and #2 (S Cefepime) Fever, improving Leukopenia, SP Acute respiratory failure s/p Bipap- now on UT Recent Sepsis 2ry to UTI (09/2018) -u/a wbc 30-40, nit neg, leuk +3; ucx >100K E.coli (R Cipro/Levo; otherwise) Recent Gram positive bacteremia, likely contaminant -10/10 BCx 09/24 S. hominis, S. epi; 10/13 Bcx Neg -2d Echo: no vegetations seen Recent Infected Sacral decubitus ulcer ( Path findings : acute OM ) Wnd CX : PsA (R Ceftazidime; I Cefepime; S Cipro/levo, meropenem) -10/13 SP Excision of sacral pressure ulcer with coccygectomy and ostectomy. 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 No contrast enhancement to suggest recurrent tumor is evident currently. There is evidence of old peripheral hemorrhage, presumably related to the prior surgery. 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 Negative for acute intracranial bleed, mass effect, infarct, or contrast enhancing lesion. 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 HTN HLD BPH Dm2 s/p appendectomy s/p tonsillectomy CAD seizure disorder [facility] resident sacral decubitus ulcer, FTT s/p PEG 11/05/18 Plan: -Continue IV Vancomycin #7/ for MRSA PNA -Switch MEropenem #6 to PO Cipro for PsA UTI and pNA (abx d #/ for PsA sacral OM) -11/12 SP Cefepime #2 -11/10 SP IV Vancomycin #32, Zosyn #23 - 10/19 Sp Ceftriaxone #8 -10/12/18 SP Cefepime #3 -f/u sp cx -Monitor CBC/CMP, temperatures -wound care per surgical team -PEG care -aspiration precautions Subjective Allergies: Coded Allergies: No Known Allergies (Unverified , 09/27/18) Subjective afebrile transferred out of ICU to [facility] Objective Vital Signs Last 24 Hour Vital Signs Date Time Temp Pulse Resp B/P (MAP) Pulse Ox O2 Delivery O2 Flow Rate FiO2 11/17/18 09:36 114 111/75 11/17/18 09:00 95 Nasal Cannula 4.0 36 11/17/18 09:00 Nasal Cannula 4.0 11/17/18 08:00 4.0 11/17/18 08:00 97.1 114 24 111/75 (87) 99 11/17/18 05:42 107 16 94 11/17/18 04:35 105 16 96 Facial 45 11/17/18 04:00 50 11/17/18 04:00 98.9 110 20 131/86 (101) 98 11/17/18 03:05 102 16 93 Facial 45 11/17/18 01:06 96 16 95 Facial 45 11/17/18 00:00 50 11/17/18 00:00 99.8 99 16 98/61 (73) 97 11/16/18 23:48 98 17 93 Facial 45 11/16/18 21:53 114 118/73 11/16/18 21:00 Nasal Cannula 4.0 11/16/18 20:41 118 22 94 Nasal Cannula 4.0 36 11/16/18 20:41 94 Nasal Cannula 4.0 36 11/16/18 20:00 99.8 114 20 118/73 (88) 96 11/16/18 20:00 4.0 11/16/18 16:00 98.8 104 21 122/67 (85) 96 11/16/18 16:00 4.0 Height (Feet): 5 Height (Inches): 6.00 Weight (Pounds): 150 Objective GENERAL: The patient is a well-developed and well-nourished male, in no apparent distress. HEENT: Eyes, pupils are equal and responsive to light and accommodation. Extraocular movements are intact. NECK: Supple without lymphadenopathy. CHEST: Lungs are clear to auscultation bilaterally without wheezes or rales. CARDIOVASCULAR: Regular rhythm and rate. S1 and S2 are normal without murmurs, rubs, or gallops. ABDOMEN: Soft, nontender, and nondistended. Positive bowel sounds. No evidence of hepatosplenomegaly. Currently, no rebound or guarding noted. EXTREMITIES: Negative for clubbing, cyanosis, or edema. NEUROLOGIC: Unable to assess. Microbiology Date/Time Source Procedure Growth Status 11/15/18 21:10 Blood Blood Culture - Preliminary NO GROWTH AFTER 24 HOURS Resulted Laboratory Tests Test 11/17/18 05:40 White Blood Count 6.9 K/UL (4.8-10.8) Red Blood Count 2.55 M/UL (4.70-6.10) L Hemoglobin 7.9 G/DL (14.2-18.0) L Hematocrit 23.5 % (42.0-52.0) L Mean Corpuscular Volume 92 FL (80-99) Mean Corpuscular Hemoglobin 30.9 PG (27.0-31.0) Mean Corpuscular Hemoglobin Concent 33.5 G/DL (32.0-36.0) Red Cell Distribution Width 14.5 % (11.6-14.8) Platelet Count 219 K/UL (150-450) Mean Platelet Volume 6.9 FL (6.5-10.1) Neutrophils (%) (Auto) % (45.0-75.0) Lymphocytes (%) (Auto) % (20.0-45.0) Monocytes (%) (Auto) % (1.0-10.0) Eosinophils (%) (Auto) % (0.0-3.0) Basophils (%) (Auto) % (0.0-2.0) Differential Total Cells Counted 100 Neutrophils % (Manual) 88 % (45-75) H Lymphocytes % (Manual) 3 % (20-45) L Monocytes % (Manual) 4 % (1-10) Eosinophils % (Manual) 0 % (0-3) Basophils % (Manual) 0 % (0-2) Band Neutrophils 5 % (0-8) Platelet Estimate Adequate Platelet Morphology Normal Polychromasia 1+ Sodium Level 134 MMOL/L (136-145) L Potassium Level 4.2 MMOL/L (3.5-5.1) Chloride Level 100 MMOL/L (98-107) Carbon Dioxide Level 29 MMOL/L (21-32) Anion Gap 5 mmol/L (5-15) Blood Urea Nitrogen 13 mg/dL (7-18) Creatinine 0.7 MG/DL (0.55-1.30) Estimat Glomerular Filtration Rate > 60 mL/min (>60) Glucose Level 247 MG/DL (74-106) H Calcium Level 7.8 MG/DL (8.5-10.1) L Current Medications Medications (Trade) Dose Ordered Sig/Chace Route PRN Reason Start Time Stop Time Status Last Admin Dose Admin Acetaminophen (Tylenol) 650 mg Q4H PRN ORAL Mild Pain/Temp > 100.5 11/15/18 20:45 12/15/18 20:44 11/15/18 20:45 Dextrose (Dextrose 50%) 25 ml Q30M PRN IV Hypoglycemia 11/12/18 20:30 12/10/18 14:29 Dextrose (Dextrose 50%) 50 ml Q30M PRN IV Hypoglycemia 11/12/18 20:30 12/11/18 17:59 Heparin Sodium (Porcine) (Heparin 5000 units/ml) 5,000 units EVERY 12 HOURS SUBQ 11/12/18 21:00 12/10/18 20:59 11/17/18 09:37 Insulin Aspart (NovoLOG) EVERY 6 HOURS SUBQ 11/13/18 00:00 12/10/18 17:59 11/17/18 12:50 Lorazepam (Ativan 2mg/ml 1ml) 0.5 mg Q4H PRN IV For Anxiety 11/12/18 20:30 11/17/18 20:29 Meropenem 1 gm/ Sodium Chloride 55 ml @ 110 mls/hr Q8HR IVPB 11/12/18 22:00 11/21/18 21:59 11/17/18 05:18 Metoprolol Tartrate (Lopressor) 25 mg Q12HR GT 11/16/18 09:00 12/15/18 20:59 11/17/18 09:36 Midodrine (Pro-Amatine) 10 mg THREE TIMES A DAY GT 11/16/18 09:00 12/12/18 12:59 11/17/18 12:45 Poloxamer (PluroGel) 1 applic Q3D TOPIC 11/14/18 16:00 12/11/18 15:59 11/14/18 16:50 Sitagliptin Phosphate (Januvia) 50 mg DAILY GT 11/16/18 09:00 12/11/18 08:59 11/17/18 09:35 Tamsulosin HCl (Flomax) 0.4 mg BEDTIME ORAL 11/12/18 21:00 12/10/18 20:59 11/16/18 21:53 Vancomycin HCl (Vanco rx to dose) 1 ea DAILY PRN MISC Per rx protocol 11/12/18 20:30 12/12/18 20:29 Vancomycin HCl 1 gm/Dextrose 275 ml @ 183.708 mls/hr Q8H IVPB 11/15/18 23:00 11/20/18 22:59 11/17/18 06:00 Brandie Carlos M.D. November 17, 2018 13:13
[2018-11-17] MEDS ORDERED: Ciprofloxacin 500mg tab ORAL SCH (14:00)
--- NOTE | 2018-11-17 15:21 | NUR ---
RD ASSESSMENT & RECOMMENDATIONS SEE CARE ACTIVITY FOR COMPLETE ASSESSMENT DAILY ESTIMATED NEEDS: Needs based on Advanced wound, wt loss/ 57kg 30-35 kcals/kg 1430-5825 total kcals 1.5-2.0 g protein/kg 86-114 g total protein 25-30 mL/kg 9676-8132 total fluid mLs NUTRITION DIAGNOSIS: * Increased kcal/prot needs R/T wound healing, wt loss as evidenced by sacral stage 4 wound, possible significant wt loss of 19lbs/ 13.4% in ~1 month. * Swallowing difficulty R/T dysphagia w/ h/o brain tumor and CVA as evidenced by s/p recent PEG placement, on GT feeding. ENTERAL NUTRITION RECOMMENDATIONS: Glucerna 1.5 @ 50ml/hr x 24 hrs to provide 1200ml, 1800kcal, 99g prot, 911ml free water * Maintain Glucerna 1.5 as tolerated * HOB over 30 degrees/ water flush per MD ------ ADDITIONAL RECOMMENDATIONS: * Calibrated bedscale wt for accurate CBW- w/ added P200 mattress * Check lytes daily w/ TF, replete as needed * Wound healing: add Vit C 500mg BID and Ziyad 1pkt BID + Zn so4 220 mg daily x10 days. * Monitor BGs closely, need for tighter regimen (BGs in the 200's) -> consider long acting insulin
--- NOTE | 2018-11-17 15:26 | NUR ---
CLERK TRAVEL RESERVATIONS NOTES PT ACCEPTED BACK TO [facility] ROOM [address] BED B. [facility] TO TRANSPORT PT.NCM TO SCHEDULE RESIDENCE DIRECTOR. MOLDED [employer]ER [employer] CUTTER LEVEL OF CARE.
[2018-11-17 16:00] VITALS: BP 128/76
[2018-11-17] MEDS ORDERED: HEPARIN SO5000 UNIT2 SUBQ (16:35)
[2018-11-17] MEDS ORDERED: CIPRO500 MG/51 GT (16:35)
[2018-11-17] MEDS ORDERED: NOVOLOG100 UNITS1 SUBQ (16:36)
[2018-11-17] MEDS ORDERED: METOPROLOL TART25 MG ORAL (16:37)
[2018-11-17] MEDS ORDERED: PRO-AMATINE10 MG GT (16:38)
[2018-11-17] MEDS ORDERED: [UNRECOGNIZED DRUG - OTHER] TOPIC (16:40)
--- NOTE | 2018-11-17 16:59 | Surgery Progress Note ---
Surgery Progress Note Subjective Procedure Performed left subclavian central venous catheter insertion Additional Comments no acute events. comfortable. stable. labs noted. exam unchanged. Objective Last 24 Hour Vital Signs Date Time Temp Pulse Resp B/P (MAP) Pulse Ox O2 Delivery O2 Flow Rate FiO2 11/17/18 12:00 98.1 96 18 130/79 (96) 95 11/17/18 12:00 4.0 11/17/18 09:36 114 111/75 11/17/18 09:00 95 Nasal Cannula 4.0 36 11/17/18 09:00 Nasal Cannula 4.0 11/17/18 08:00 4.0 11/17/18 08:00 97.1 114 24 111/75 (87) 99 11/17/18 05:42 107 16 94 11/17/18 04:35 105 16 96 Facial 45 11/17/18 04:00 50 11/17/18 04:00 98.9 110 20 131/86 (101) 98 11/17/18 03:05 102 16 93 Facial 45 11/17/18 01:06 96 16 95 Facial 45 11/17/18 00:00 50 11/17/18 00:00 99.8 99 16 98/61 (73) 97 11/16/18 23:48 98 17 93 Facial 45 11/16/18 21:53 114 118/73 11/16/18 21:00 Nasal Cannula 4.0 11/16/18 20:41 118 22 94 Nasal Cannula 4.0 36 11/16/18 20:41 94 Nasal Cannula 4.0 36 11/16/18 20:00 99.8 114 20 118/73 (88) 96 11/16/18 20:00 4.0 I&O Intake and Output 11/16/18 11/17/18 19:00 07:00 Intake Total 2161.124 ml 183.708 ml Output Total 1850 ml Balance 2161.124 ml -1666.292 ml Intake Free Water 200 ml IV Total 1361.124 ml 183.708 ml Tube Feeding 600 ml Output Urine Total 1850 ml Dressing: saturated Wound: other Drains: other Cardiovascular: RSR Respiratory: decreased breath sounds Abdomen: soft, non-tender, present bowel sounds, other, non-distended Extremities: no tenderness, no cyanosis Laboratory Tests Test 11/17/18 05:40 White Blood Count 6.9 K/UL (4.8-10.8) Red Blood Count 2.55 M/UL (4.70-6.10) L Hemoglobin 7.9 G/DL (14.2-18.0) L Hematocrit 23.5 % (42.0-52.0) L Mean Corpuscular Volume 92 FL (80-99) Mean Corpuscular Hemoglobin 30.9 PG (27.0-31.0) Mean Corpuscular Hemoglobin Concent 33.5 G/DL (32.0-36.0) Red Cell Distribution Width 14.5 % (11.6-14.8) Platelet Count 219 K/UL (150-450) Mean Platelet Volume 6.9 FL (6.5-10.1) Neutrophils (%) (Auto) % (45.0-75.0) Lymphocytes (%) (Auto) % (20.0-45.0) Monocytes (%) (Auto) % (1.0-10.0) Eosinophils (%) (Auto) % (0.0-3.0) Basophils (%) (Auto) % (0.0-2.0) Differential Total Cells Counted 100 Neutrophils % (Manual) 88 % (45-75) H Lymphocytes % (Manual) 3 % (20-45) L Monocytes % (Manual) 4 % (1-10) Eosinophils % (Manual) 0 % (0-3) Basophils % (Manual) 0 % (0-2) Band Neutrophils 5 % (0-8) Platelet Estimate Adequate Platelet Morphology Normal Polychromasia 1+ Sodium Level 134 MMOL/L (136-145) L Potassium Level 4.2 MMOL/L (3.5-5.1) Chloride Level 100 MMOL/L (98-107) Carbon Dioxide Level 29 MMOL/L (21-32) Anion Gap 5 mmol/L (5-15) Blood Urea Nitrogen 13 mg/dL (7-18) Creatinine 0.7 MG/DL (0.55-1.30) Estimat Glomerular Filtration Rate > 60 mL/min (>60) Glucose Level 247 MG/DL (74-106) H Calcium Level 7.8 MG/DL (8.5-10.1) L Plan Problems: (1) Sacral decubitus ulcer Assessment & Plan: Pt presented on admission with 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 Base is viable with some slough .Bone is palpable. undermining clockwise 9-6o'clock ,at 12 o'clock base of wound is necrotic.mixed slough and soft necrosis noted along borders. Periwound erythematous and indurated.Mild odor resolved after cleansing of wound. No exudate noted. Both heels are firm and blanchable. No evidence of skin breakdown noted to all other bony prominences. Tx.Plan: Cleanse wound with Saline. pleurogel q3day .Apply Triad paste periwound. Cover with Optifoam drsg Apply Cavilon Skin Barrier to both heels .Cover each heel with Optifoam drsg. Change every 7 days and prn Apply Cavilon Skin Barrier to both hips. Cover each hip with Optifoam drsg. Change every 7 days and prn. Air fluidized mattress. Reposition at least every 2hours or as tolerated. Off-load heels with pillow. Can plan for continued care based on above recommendations when discharged. (2) Severe malnutrition Assessment & Plan: DAILY ESTIMATED NEEDS: Needs based on Advanced wound, wt loss/ 57kg 30-35 kcals/kg 2667-2454 total kcals 1.5-2.0 g protein/kg 86-114 g total protein 25-30 mL/kg 7620-3569 total fluid mLs NUTRITION DIAGNOSIS: * Increased kcal/prot needs R/T wound healing, wt loss as evidenced by sacral stage 4 wound, possible significant wt loss of 19lbs/ 13.4% in ~1 month. * Swallowing difficulty R/T dysphagia w/ h/o brain tumor and CVA as evidenced by s/p recent PEG placement, on GT feeding. CURRENT TF:Glucerna 1.2 @ 30ml/hr x 24 hrs- meets 51% est kcal, 50% est prot needs ENTERAL NUTRITION RECOMMENDATIONS: Glucerna 1.5 @ 50ml/hr x 24 hrs to provide 1200ml, 1800kcal, 99g prot, 911ml free water * Rec TF change to Glucerna 1.5 for increased kcal/prot needs * Initiate Glucerna 1.5 @ 20ml/hr x 6 hrs, advance 10ml q 4-6 hrs as tolerated to goal rate. * HOB over 30 degrees/ water fluhs per MD ADDITIONAL RECOMMENDATIONS: * Calibrated bedscale wt for accurate CBW- w/ added P200 mattress * Check lytes daily w/ TF, replete as needed * Wound healing: add Vit C 500mg BID and Ziyad 1pkt BID * Monitor BGs closely, need for tighter regimen (BGs in the 200's) . (3) Failure to thrive (4) Sepsis Assessment & Plan: Cont IV Abx cont tube feeds labs improved Micro with sputum culture overall improving with care plan Harry Rivas November 17, 2018 16:59
[2018-11-17] MEDS: [UNRECOGNIZED DRUG - SUPPLY] TOPIC SCH (17:12)
--- NOTE | 2018-11-17 18:37 | Internal Med Progress Note ---
Subjective Date of Service: November 17, 2018 Physician Name Jesus Kidd Attending Physician Camacho Braun MD Current Medications Medications (Trade) Dose Ordered Sig/Chace Route PRN Reason Start Time Stop Time Status Last Admin Dose Admin Acetaminophen (Tylenol) 650 mg Q4H PRN ORAL Mild Pain/Temp > 100.5 11/15/18 20:45 12/15/18 20:44 11/15/18 20:45 Ciprofloxacin (Cipro 500mg tab) 750 mg EVERY 12 HOURS ORAL 11/17/18 14:00 11/24/18 13:59 11/17/18 14:30 Dextrose (Dextrose 50%) 25 ml Q30M PRN IV Hypoglycemia 11/12/18 20:30 12/10/18 14:29 Dextrose (Dextrose 50%) 50 ml Q30M PRN IV Hypoglycemia 11/12/18 20:30 12/11/18 17:59 Heparin Sodium (Porcine) (Heparin 5000 units/ml) 5,000 units EVERY 12 HOURS SUBQ 11/12/18 21:00 12/10/18 20:59 11/17/18 09:37 Insulin Aspart (NovoLOG) EVERY 6 HOURS SUBQ 11/13/18 00:00 12/10/18 17:59 11/17/18 18:14 Lorazepam (Ativan 2mg/ml 1ml) 0.5 mg Q4H PRN IV For Anxiety 11/12/18 20:30 11/17/18 20:29 Metoprolol Tartrate (Lopressor) 25 mg Q12HR GT 11/16/18 09:00 12/15/18 20:59 11/17/18 09:36 Midodrine (Pro-Amatine) 10 mg THREE TIMES A DAY GT 11/16/18 09:00 12/12/18 12:59 11/17/18 18:13 Poloxamer (PluroGel) 1 applic Q3D TOPIC 11/14/18 16:00 12/11/18 15:59 11/17/18 17:12 Sitagliptin Phosphate (Januvia) 50 mg DAILY GT 11/16/18 09:00 12/11/18 08:59 11/17/18 09:35 Tamsulosin HCl (Flomax) 0.4 mg BEDTIME ORAL 11/12/18 21:00 12/10/18 20:59 11/16/18 21:53 Vancomycin HCl (Vanco rx to dose) 1 ea DAILY PRN MISC Per rx protocol 11/12/18 20:30 12/12/18 20:29 Vancomycin HCl 1 gm/Dextrose 275 ml @ 183.708 mls/hr Q8H IVPB 11/15/18 23:00 11/20/18 22:59 11/17/18 14:30 Allergies: Coded Allergies: No Known Allergies (Unverified , 09/27/18) ROS Limited/Unobtainable: Yes Subjective 68 YO M admitted with respiratory failure. Now Pneumonia and sinus tachycardia. Cover for Int Med-Dr Braun. Off BIPAP; tolerating nasal canula Objective Last Vital Signs Date Time Temp Pulse Resp B/P (MAP) Pulse Ox O2 Delivery O2 Flow Rate FiO2 11/17/18 16:00 98.3 99 18 128/76 (93) 97 11/17/18 16:00 4.0 11/17/18 09:00 Nasal Cannula 36 Laboratory Tests Test 11/17/18 05:40 White Blood Count 6.9 K/UL (4.8-10.8) Red Blood Count 2.55 M/UL (4.70-6.10) L Hemoglobin 7.9 G/DL (14.2-18.0) L Hematocrit 23.5 % (42.0-52.0) L Mean Corpuscular Volume 92 FL (80-99) Mean Corpuscular Hemoglobin 30.9 PG (27.0-31.0) Mean Corpuscular Hemoglobin Concent 33.5 G/DL (32.0-36.0) Red Cell Distribution Width 14.5 % (11.6-14.8) Platelet Count 219 K/UL (150-450) Mean Platelet Volume 6.9 FL (6.5-10.1) Neutrophils (%) (Auto) % (45.0-75.0) Lymphocytes (%) (Auto) % (20.0-45.0) Monocytes (%) (Auto) % (1.0-10.0) Eosinophils (%) (Auto) % (0.0-3.0) Basophils (%) (Auto) % (0.0-2.0) Differential Total Cells Counted 100 Neutrophils % (Manual) 88 % (45-75) H Lymphocytes % (Manual) 3 % (20-45) L Monocytes % (Manual) 4 % (1-10) Eosinophils % (Manual) 0 % (0-3) Basophils % (Manual) 0 % (0-2) Band Neutrophils 5 % (0-8) Platelet Estimate Adequate Platelet Morphology Normal Polychromasia 1+ Sodium Level 134 MMOL/L (136-145) L Potassium Level 4.2 MMOL/L (3.5-5.1) Chloride Level 100 MMOL/L (98-107) Carbon Dioxide Level 29 MMOL/L (21-32) Anion Gap 5 mmol/L (5-15) Blood Urea Nitrogen 13 mg/dL (7-18) Creatinine 0.7 MG/DL (0.55-1.30) Estimat Glomerular Filtration Rate > 60 mL/min (>60) Glucose Level 247 MG/DL (74-106) H Calcium Level 7.8 MG/DL (8.5-10.1) L Microbiology Date/Time Source Procedure Growth Status 11/15/18 21:10 Blood Blood Culture - Preliminary NO GROWTH AFTER 24 HOURS Resulted Intake and Output 11/16/18 11/17/18 18:59 06:59 Intake Total 2444.832 ml 50 ml Output Total 1850 ml Balance 2444.832 ml -1800 ml Intake Free Water 200 ml IV Total 1644.832 ml Tube Feeding 600 ml 50 ml Output Urine Total 1850 ml Objective General Appearance: WD/WN, moderate distress EENT: PERRL/EOMI, normal ENT inspection Neck: non-tender, normal alignment, supple, normal inspection Cardiovascular: normal peripheral pulses, regular rhythm, no gallop/murmur, no JVD, tachycardia Respiratory/Chest: Nasal canula; chest wall non-tender, crackles/rales, rhonchi - bilaterally, expiratory wheezing Abdomen: normal bowel sounds, non tender, soft, no organomegaly, no mass Extremities: normal range of motion, non-tender Neurologic: extension professor II-XII grossly normal Skin: normal pigmentation Assessment/Plan Assessment/Plan ASSESSMENT: This is a 68-year-old male. 1. Altered mental status. 2. Respiratory failure. 3. Hypertension. 4. Dysphagia. 5. Failure to thrive. 6. Encephalopathy. 7. Brain cancer. 8. Seizure disorder. 9. Diabetes type 2. 10. Cerebrovascular disease. 11. Right hemiparesis. 12. Hypertension. 13. Coronary artery disease. 14. Expressive aphasia. 15. Pneumonia=staph aureus 16. UTI=pseudamonas TREATMENT: 1. Respiratory failure. Tolerating nasal canula. Pulmonary consultation has been obtained with Dr. Raul Feng. We will follow recommendations of Pulmonary. 2. Altered mental status is probably secondary to hypoxia as above. 3. Dysphagia. The patient is status post PEG placement on 11/05/2018. 4. Failure to thrive. 5. Encephalopathy. 6. Brain cancer. 7. Seizure disorder. Continue Depakote and Vimpat as above. 8. Diabetes type 2. Continue Humalog sliding scale as above. 9. Cerebrovascular disease. 10. Right hemiparesis. 11. Hypertension. 12. Coronary artery disease. 13. Expressive aphasia. 14. Continue vanco and meropenem per Inf Dis 15. D/W son Charli at bedside Jesus Kidd MD November 17, 2018 18:37
--- NOTE | 2018-11-17 19:29 | NUR ---
NURSE NOTES: Patient discharged. IV removed and site covered. No personal belongigns. Mota catheter left in by MD order. Patient kept comfortable at all times and patient needs met. Patient departed in BLS ambulance.
--- NOTE | 2018-11-18 07:49 | Discharge Summary ---
Discharge Summary Discharge Summary _ DATE OF ADMISSION: 11/10/2018 DATE OF DISCHARGE: 11/17/2018 DISCHARGED BY: Dr. Braun REASON FOR ADMISSION: 68 years old male with past medical history of hypertension, diabetes mellitus, coronary artery disease, hyperlipidemia, brain cancer/oligodendroglioma, dementia, DNR status, presented from the [facility] facility for evaluation. Patient noted to be altered more than his baseline since the supplemental oxygen. Patient also noted to be hypotensive. No reported fever and chills. Upon arrival patient had 100% nonrebreathing mask and was tachycardic and hypotensive. Laboratory work-up revealed leukopenia, stable hemoglobin and hematocrit. Potassium 5.7. Troponin- 0.297. ProBNP more than 9000. EKG revealed normal sinus rhythm, no acute ischemic changes. Lactic acid more than 3. Urinalysis with evidence of UTI. Surgeon at the bedside in the emergency department placed left subclavian catheter in anticipation for pressors. Chest x-ray revealed no acute process and confirmed correct placement of central line. Septic work-up initiated in emergency department. Patient received fluid challenge with improvement in blood pressure. Patient pancultured and started on empiric antibiotics. Case was discussed with the [facility] medical personnel for transfer to higher level of care , since patient required oncology service, which was not available at this facility. However per [facility] report, no beds were available at this time. Patient subsequently was admitted for further management. CONSULTANTS: resolution rep Dr. Gutierrez pulmonary Dr. Feng ID specialist Dr. Carias wildlife technician/oncologist surgery Dr. Rivas [facility] COURSE: Patient admitted and started on Levophed for hemodynamic support to keep mean arterial blood pressure above 65. Patient started on empiric antibiotic as per ID specialist recommendations. [employer] Report Developer closely followed. Hemodynamic status was closely monitored. Patient was able soon to be weaned from pressors and started on midodrine. Blood pressure was closely monitored Second troponin elevated- 0.869. Echocardiogram revealed reduced ejection fraction 45 to 50% ; ischemic cardiomyopathy could not be excluded. No evidence of left ventricular hypertrophy. Apical inferolateral and anteroseptal wall hypokinesia along with apical hypokinesia. Right ventricular systolic pressure of 26. Patient exhibited tachycardia up to 140s due to sepsis, as per resolution rep. EKG revealed no acute ST changes. Repeated EKG showed sinus tachycardia. After blood pressure stabilized, patient was placed on beta-radha. Heart rate and blood pressure stabilized . Medical Aides Teacher followed. Supplemental oxygen titrated to keep pulse oximetry above 92%. Patient was followed -up with ABGs. Patient was on nonrebreathing mask , on face mask , on the BiPAP , and prior to discharge was able to be weaned to oxygen via nasal cannula. Pulmonary toilet provided. Follow-up chest x-ray revealed development of pneumonia versus atelectasis at the left lung base. Patient was continued on antibiotic as per ID recommendations. Follow-up chest x-ray revealed increasing infiltrate in both lung bases with suspicion of basilar pneumonia. Urine culture revealed Pseudomonas Aeruginosa. Blood cultures were negative. Sputum culture revealed MRSA and Pseudomonas Aeruginosa /2 different species. Patient was on IV antibiotics while in the hospital . Antibiotic regimen further adjusted as per ID specialist recommendation to complete the course of treatment at the facility. Aspiration precaution maintained. G-tube feeding continued with input from registered art therapist as to the type of the tube formula and goal rate. Protein supplements implemented in plan of care. Patient was able to tolerate tube feeding Hemoglobin and hematocrit were closely monitored with goal to keep hemoglobin above 7. Leukopenia resolved, WBC 6.9 prior to discharge. Renal parameter and electrolytes were closely monitored , and electrolytes were corrected as needed. Nephrotoxins were avoided. Blood sugar was managed with sliding scale of insulin and Januvia. DVT prophylaxis provided. Wound care provided as per surgeon recommendation. Continue wound care at the facility. Seizure precautions maintained. Patient clinically stabilized. Prior to discharge heart rate 99 , blood pressure 128/76. Pulse oximetry on 4 L of oxygen via nasal cannula 95%. Pro-BNP down to 5426. Patient subsequently was discharged to [facility] facility for continuation of care. Patient with DNR status, overall prognosis poor. FINAL DIAGNOSES: Septic shock ( due to pneumoniae and UTI) Respiratory failure ( present on admission0 , requiring nonrebreathing mask and BiPAP Elevated troponin Sinus tachycardia, likely due to sepsis Pseudomonas UTI MRSA pneumonia Acute encephalopathy Brain tumor/oligodendroglioma Coronary artery disease Severe protein calorie malnutrition Cerebrovascular disease with history of CVA and right hemiparesis Dysphasia status , s/p PEG placement Seizure disorder Sacral decubitus ulcer, stage IV, present on admission Expressive aphasia DISCHARGE MEDICATIONS: See Medication Reconciliation list. DISCHARGE INSTRUCTIONS: Patient was discharged to the [facility] facility. Follow up with medical doctor at the facility. I have been assigned to dictate discharge summary for this account. I was not involved in the patient's management. Sari Madrigal NP November 18, 2018 07:49
== END 2018-11-17 19:20 | DRG 871 ==
LOC: EDBD 13:58 → EMR 14:30 → 2W 15:18 → EDBEDREQ 16:28 → ICU 11-11 16:42 → 4E 11-12 20:19
PROC: 05H633Z Insertion of Infusion Device into Left Subclavian Vein, Percutaneous Approach (ICD-10-PCS; principal; 2018-11-10)
DX: A41.02 Sepsis due to Methicillin resistant Staphylococcus aureus (principal); L89.154 Pressure ulcer of sacral region, stage 4; E43 Unspecified severe protein-calorie malnutrition; R65.21 Severe sepsis with septic shock; J15.212 Pneumonia due to Methicillin resistant Staphylococcus aureus; J96.01 Acute respiratory failure with hypoxia; G92 Toxic encephalopathy; N39.0 Urinary tract infection, site not specified; I69.951 Hemiplegia and hemiparesis following unspecified cerebrovascular disease affecting right dominant side; A41.52 Sepsis due to Pseudomonas; Z85.841 Personal history of malignant neoplasm of brain; G40.909 Epilepsy, unspecified, not intractable, without status epilepticus; E11.9 Type 2 diabetes mellitus without complications; I69.920 Aphasia following unspecified cerebrovascular disease; I11.0 Hypertensive heart disease with heart failure; I50.9 Heart failure, unspecified; R13.10 Dysphagia, unspecified; D64.9 Anemia, unspecified; R62.7 Adult failure to thrive; Z68.24 Body mass index [BMI] 24.0-24.9, adult; N40.0 Benign prostatic hyperplasia without lower urinary tract symptoms; Z93.1 Gastrostomy status; Z66 Do not resuscitate; I25.10 Atherosclerotic heart disease of native coronary artery without angina pectoris; R79.89 Other specified abnormal findings of blood chemistry
CPT/HCPCS: 36415; 36600; 71045; 80048; 80053; 80202; 81003; 82140; 82248; 82550; 82553; 82803; 82962; 83605; 83735; 83880; 84100; 84484; 85007; 85025; 87040; 87070; 87086; 87181; 87205; 93005; 93306; 94660; 94664; 96361; 96365; 99291; J1815

== ENCOUNTER 2018-12-10 01:02 | Inpatient (IN) | payer MEDICARE, OTHER ==
[~2018-12-10] VITALS: Ht 177.8 cm; Wt 57.6 kg
[2018-12-10] VITALS (18 sets, daily range): BP systolic 85–129; BP diastolic 55–109
[~2018-12-10 01:02] MED LIST changes: +CIPRO500 MG/51 GT; +HEPARIN SO5000 UNIT2 SUBQ; +METOPROLOL TART25 MG ORAL; +PRO-AMATINE10 MG GT; +[UNRECOGNIZED DRUG - OTHER] TOPIC
--- NOTE | 2018-12-10 01:05 | NUR ---
ED Nurse Note: Received report. Pt LEA from [facility] on iesha Wilman . Ambulance personnel states that he had elevated temp of 102 but was given tylenol at SNF and is now 97.9 upon arrival. Pt also has gross hematuria as observed in Mota and elevated WBC. Will assess and carry out ER MD's orders.
[2018-12-10 01:45] LABS: APPEARANCE,URINE CLOUDY; BILIRUBIN, URINE NEGATIVE (NEGATIVE); GLUCOSE, URINE (UA) NEGATIVE (NEGATIVE); KETONES,URINE 1+ (NEGATIVE); LEUKOCYTE ESTERASE ,URINE 3+ (NEGATIVE); NITRITE,URINE NEGATIVE (NEGATIVE); PH,URINE 5 (4.5-8.0); PROTEIN,URINE 3+ (NEGATIVE); UROBILINOGEN,URINE 1 MG/DL (0.0-1.0)
[2018-12-10 01:58] LABS: COLOR,URINE AMBER
[2018-12-10 02:33] LABS: HEMOGLOBIN 11.8 G/DL (14.2-18.0); MEAN CORPUSCULAR VOLUME 92 FL (80-99); PLATELET COUNT 239 K/UL (150-450); RED BLOOD COUNT 3.93 M/UL (4.70-6.10); RED CELL DISTRIBUTION WIDTH 15.7 % (11.6-14.8); WHITE BLOOD COUNT 21.2 K/UL (4.8-10.8)
[2018-12-10] MEDS ORDERED: cefTRIAXone 1 GM in NS 55 ML IVPB ONE (02:45)
[2018-12-10 02:47] LABS: ANION GAP 9 mmol/L (5-15); BLOOD UREA NITROGEN 22 mg/dL (7-18); CALCIUM 9.3 MG/DL (8.5-10.1); CARBON DIOXIDE 28 MMOL/L (21-32); CHLORIDE 93 MMOL/L (98-107); CREATININE 0.7 MG/DL (0.55-1.30); SODIUM 130 MMOL/L (136-145)
--- NOTE | 2018-12-10 03:00 | NUR ---
ED Nurse Note: Pt in bed resting with IVF running at prescribed rate. Will continue to monitor.
[2018-12-10 03:01] LABS: ALANINE AMINOTRANSFERASE 28 U/L (12-78); ALBUMIN 2.3 G/DL (3.4-5.0); ALBUMIN/GLOBULIN RATIO 0.5 (1.0-2.7); ALKALINE PHOSPHATASE 116 U/L (46-116); ASPARTATE AMINO TRANSFERASE 45 U/L (15-37); BILIRUBIN,TOTAL 0.4 MG/DL (0.2-1.0); CKMB 20.9 NG/ML (0.0-3.6); CREATINE KINASE 239 U/L (26-308)
--- NOTE | 2018-12-10 03:57 | NUR ---
ED Nurse Note: Report given to Hannah MURILLO. Endorsed admit to tele unit once room assigned, reflex lactic blood draw and sacral wound photo to rn shift mgr RN. Pt stable.
--- NOTE | 2018-12-10 04:45 | NUR ---
ED Nurse Note: Pt transferred to telemetry unit. Pt connected to concrete bucket unloader and accompanied by RN and pin cleaner. No belongings present. IV patent and asymptomatic. VSS aside from noted tachycardia of 105.
--- NOTE | 2018-12-10 04:48 | Emergency Room Report ---
History of Present Illness General Chief Complaint: Fever Source: Medical Record, EMS Present Illness HPI 68-year-old male presents ED for evaluation. Patient sent in from [facility] for abnormal labs. Noted to have hematuria and elevated white cell count and fever today. On arrival patient not in distress. States he feels weak. Denies chest pain or shortness of breath. Denies abdominal pain. No other aggravating relieving factors. Denies any other associated symptoms Allergies: Coded Allergies: No Known Allergies (Unverified , 09/27/18) Patient History Past Medical History: DM, HTN, CVA/TIA, seizures, other - encephalopathy Past Surgical History: none Pertinent Family History: none Social History: Denies: smoking, alcohol use, drug use Immunizations: UTD Reviewed Nursing Documentation: PMH: Agreed; PSxH: Agreed Nursing Documentation-PMH Past Medical History: No History, Except For Hx Cardiac Problems: Yes - hyperlipidemia Hx Hypertension: Yes Hx Diabetes: Yes Hx Cancer: Yes - brain cancer Hx Gastrointestinal Problems: Yes Hx Neurological Problems: Yes - AMS, cerebral edema 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, expressive aphasia Hx Seizures: Yes Review of Systems All Other Systems: negative except mentioned in HPI Physical Exam Vital Signs Date Time Temp Pulse Resp B/P (MAP) Pulse Ox O2 Delivery O2 Flow Rate FiO2 12/10/18 01:03 97.7 78 14 104/71 (82) 98 Room Air 12/10/18 01:08 2.0 100 Sp02 EP Interpretation: reviewed, normal General Appearance: alert, GCS 15, non-toxic, cachetic Head: normocephalic Eyes: bilateral eye normal inspection, bilateral eye PERRL ENT: normal ENT inspection Neck: normal inspection Respiratory: chest non-tender, lungs clear, normal breath sounds, speaking full sentences Cardiovascular #1: regular rate, rhythm, no edema Gastrointestinal: normal bowel sounds, non tender, soft, non-distended, no guarding, no rebound Rectal: deferred Genitourinary: no CVA tenderness Musculoskeletal: normal inspection Neurologic: alert, oriented x3, responsive, motor strength/tone normal, sensory intact, speech normal Psychiatric: mood/affect normal, no suicidal/homicidal ideation, no delusions Skin: normal inspection Lymphatic: normal inspection Medical Decision Making Diagnostic Impression: Primary Impression: UTI (urinary tract infection) Qualified Codes: N39.0 - Urinary tract infection, site not specified; R31.9 - Hematuria, unspecified Additional Impressions: Elevated troponin Sepsis Qualified Codes: A41.9 - Sepsis, unspecified organism Pneumonia Qualified Codes: J18.1 - Lobar pneumonia, unspecified organism ER Course Hospital Course 68 yo M presents to ED with hematuria. fever. Differential diagnoses include: Pneumonia, UTI, sepsis, dehydration, PA/ unstable angina Clinical course Patient placed on stretcher. On study hall supervisor with stable vitals are ED course. After initial history and physical, I ordered labs, IV fluids, EKG, chest x-ray, blood cultures, UA. Labs - electrolytes ok, noted leukocytosis, troponins 0.197, UA grossly positive for UTI, lactic 2.8 EKg - NSR, no acute ischemic changes interpreted by me CXR - haziness in lower lung joe no reported chest pain. Abx given. given 30cc/kg fluid bolus. given aspirin Case discussed with Dr Braun and they agreed to admit patient to their service for further care and support I feel this is a highly complex case requiring extensive working including EKG/ Rhythm strip, Xray/CT/US, Blood/urine lab work, repeat exams while in ED, and administration of strong opiates/narcotics for pain control, admission to hospital or close patient follow up. Diagnosis - UTI, elevated troponin, sepsis, pneumonia Patient admitted to telemetry in serious condition Labs Test 12/10/18 01:30 12/10/18 02:21 12/10/18 02:45 12/10/18 04:00 Urine Color Dionne Urine Appearance Cloudy Urine pH 5 (4.5-8.0) Urine Specific [place] 1.020 (1.005-1.035) Urine Protein 3+ (NEGATIVE) Urine Glucose (UA) Negative (NEGATIVE) Urine Ketones 1+ (NEGATIVE) Urine Blood 5+ (NEGATIVE) Urine Nitrite Negative (NEGATIVE) Urine Bilirubin Negative (NEGATIVE) Urine Ictotest Negative (NEGATIVE) Urine Urobilinogen 1 MG/DL (0.0-1.0) Urine Leukocyte Esterase 3+ (NEGATIVE) Urine RBC Tntc /HPF (0 - 0) Urine WBC 30-40 /HPF (0 - 0) Urine Squamous Epithelial Cells None /LPF (NONE/OCC) Urine Bacteria Few /HPF (NONE) White Blood Count 21.2 K/UL (4.8-10.8) Red Blood Count 3.93 M/UL (4.70-6.10) Hemoglobin 11.8 G/DL (14.2-18.0) Hematocrit 36.0 % (42.0-52.0) Mean Corpuscular Volume 92 FL (80-99) Mean Corpuscular Hemoglobin 30.0 PG (27.0-31.0) Mean Corpuscular Hemoglobin Concent 32.7 G/DL (32.0-36.0) Red Cell Distribution Width 15.7 % (11.6-14.8) Platelet Count 239 K/UL (150-450) Mean Platelet Volume 5.8 FL (6.5-10.1) Neutrophils (%) (Auto) % (45.0-75.0) Lymphocytes (%) (Auto) % (20.0-45.0) Monocytes (%) (Auto) % (1.0-10.0) Eosinophils (%) (Auto) % (0.0-3.0) Basophils (%) (Auto) % (0.0-2.0) Sodium Level 130 MMOL/L (136-145) Potassium Level 5.0 MMOL/L (3.5-5.1) Chloride Level 93 MMOL/L (98-107) Carbon Dioxide Level 28 MMOL/L (21-32) Anion Gap 9 mmol/L (5-15) Blood Urea Nitrogen 22 mg/dL (7-18) Creatinine 0.7 MG/DL (0.55-1.30) Estimat Glomerular Filtration Rate > 60 mL/min (>60) Glucose Level 293 MG/DL (74-106) Calcium Level 9.3 MG/DL (8.5-10.1) Total Bilirubin 0.4 MG/DL (0.2-1.0) Aspartate Amino Transf (AST/SGOT) 45 U/L (15-37) Alanine Aminotransferase (ALT/SGPT) 28 U/L (12-78) Alkaline Phosphatase 116 U/L (46-116) Total Creatine Kinase 239 U/L (26-308) Creatine Kinase MB 20.9 NG/ML (0.0-3.6) Creatine Kinase MB Relative Index 8.7 Troponin I 0.178 ng/mL (0.000-0.056) Pro-B-Type Natriuretic Peptide 2434 pg/mL (0-125) Total Protein 6.9 G/DL (6.4-8.2) Albumin 2.3 G/DL (3.4-5.0) Globulin 4.6 g/dL Albumin/Globulin Ratio 0.5 (1.0-2.7) Lactic Acid Level 2.80 mmol/L (0.4-2.0) EKG Diagnostic Results Rate: normal Rhythm: NSR ST Segments: no acute changes ASA given to the pt in ED: No Rhythm Strip Diag. Results EP Interpretation: yes Rhythm: NSR, no PVC's, no ectopy Chest X-Ray Diagnostic Results Chest X-Ray Diagnostic Results : Chest X-Ray Ordered: Yes # of Views/Limited/Complete: 1 View Indication: Other EP Interpretation: Yes Interpretation: no pneumothorax, other - atelectasis lower lung joe Impression: Other - ? pneumonia Electronically Signed by: Electronically signed by Romeo Rocha MD Last Vital Signs Date Time Temp Pulse Resp B/P (MAP) Pulse Ox O2 Delivery O2 Flow Rate FiO2 12/10/18 03:30 97.7 103 17 115/70 100 Room Air 2.0 12/10/18 01:08 100 Status: improved Disposition: ADMITTED INPATIENT Condition: Serious Referrals: Camacho Braun MD (PCP) Romeo Rocha MD Dec 10, 2018 04:48
--- NOTE | 2018-12-10 05:10 | NUR ---
NURSE NOTES: Received pt. and report from Abimbola from ED via iesha. Patient awake AOx1. No signs of acute distress. Pt. afebrile, V/S stable. Pt. came in with 2L NC O2. No sob noted. Respiration even and non labored. GT patent and intact. IV on Left hand running on NS @500cc/hr. environmental monitoring technician on showing SR. Oriented to room and location. Bed in lowest position, wheels locked, alarm on. Call light within reach. All needs attended and met. Called Dr. Braun for admission orders. Awaiting call back.
[2018-12-10] MEDS: NovoLOG Insulin Flexpen SUBQ SCH ×4 (06:30→21:00)
--- NOTE | 2018-12-10 07:30 | NUR ---
nurse note received patient resting in bed, breathing even and unlabored on 2 L NC. oriented x1-2. denies pain. ST on monitor 120-130. call light in reach.
--- NOTE | 2018-12-10 08:00 | NUR ---
HAND-OFF: Report given to CHIDI Calderon.
[2018-12-10] MEDS ORDERED: metFORMIN 500mg tab ORAL SCH (09:00)
[2018-12-10] MEDS ORDERED: Midodrine 10mg tab GT SCH ×2 (09:00→13:00)
[2018-12-10] MEDS ORDERED: Cefepime HCl 1 GM in D5W 55 ML IVPB SCH (09:00)
[2018-12-10] MEDS ORDERED: sitaGLIPtin 50mg tab ORAL SCH (09:00)
[2018-12-10] MEDS ORDERED: Losartan 25mg tab ORAL SCH (09:00)
[2018-12-10] MEDS ORDERED: Depakote 500mg tab ORAL SCH (09:00)
--- NOTE | 2018-12-10 09:30 | NUR ---
nurse note pending RD rec for tube feeding. Glytrol not available, pending equivalent. held anti-glycemic meds d/t feeding not starting.
--- NOTE | 2018-12-10 09:51 | NUR ---
RD ASSESSMENT & RECOMMENDATIONS SEE CARE ACTIVITY FOR COMPLETE ASSESSMENT DAILY ESTIMATED NEEDS: Needs based on wound, wasting, DM / 59kg 30-35 kcals/kg 8638-2864 total kcals 1.25-2 g protein/kg 74-118 g total protein 25-30 mL/kg 7017-7611 total fluid mLs NUTRITION DIAGNOSIS: * Increased kcal/prot needs R/T wound healing, wt loss as evidenced by recent history of sacral stage 4 wound, severe BL LE wasting, 91% [place] Body Weight. month. * Swallowing difficulty R/T dysphagia w/ h/o brain tumor and CVA as evidenced by s/p recent PEG placement, pending GT feeding. (CURRENT TF:Glytrol @45) ENTERAL NUTRITION RECOMMENDATIONS: Glucerna 1.5 @ 50ml/hr x 24 hrs to provide 1200ml, 1800kcal, 99g prot, 911ml free water * Start @30ml/hr, advance as tolerated 10ml/hr q4-6 hrs to goal * HOB over 30 degrees/ water flush per MD ------ ADDITIONAL RECOMMENDATIONS: * Calibrated bedscale wt for accurate CBW * Check lytes daily w/ TF, replete as needed * Wound healing: Ziyad 1pkt BID F/up w/ WC eval * Monitor BGs closely, need for tighter regimen (BGs in the 200's) -> consider long acting insulin
[2018-12-10] MEDS ORDERED: Morphine Sulfate 4mg/ml Inj (IV USE ONLY) IVP PRN ×2 (10:10→13:00)
[2018-12-10] MEDS ORDERED: dilTIAZem HCl 25mg/5ml Inj IVP SCH ×2 (10:10→13:30)
--- NOTE | 2018-12-10 10:50 | NUR ---
NURSE NOTES: Librado Vo called md Feng, due to the patient heart rate was 208. Pt was also in pain, ordered Cardizem for heart rate and Morphine sulfate 4mg for pain. Also ordered for the patient to go to the ICU
[2018-12-10] MEDS ORDERED: dilTIAZem HCl 50mg/10ml Inj IVP SCH (11:00)
--- NOTE | 2018-12-10 11:00 | NUR ---
Transfer Note Gave report to CHIDI Tovar in ICU.
--- NOTE | 2018-12-10 11:01 | NUR ---
NURSE NOTES: Received patient from CHIDI Calderon. Patient HR 142, blood pressure 94/55, temp 103, and oxygen saturation 99%. Patient sweating and covered in multiple blankets. All blankets taken off of patient. Patient has been given tylenol on telemetry. Cooling blanket ordered for this patient. Will apply when possible. Patient denies pain at this time. Patient is on 2L NC with no sign of respiratory distress. Patient has gastrostomy tube that is patent with reddened area around the g-tube insertion site. Patient NPO at this time. The tube feeding ordered for the patient is not stocked in this hospital. Will follow up with roadability machine operator regarding their recommendation for a substitute. Patient has carroll that was inserted prior to admission. Patient was admitted with hematuria. No evidence of hematuria at this time. Patient has sacral full thickness pressure ulcer with undermining and slough. Patient has bilateral heel stage one pressure ulcer. Dressing placed for protection. Patient bed in low position with bed alarm on and call light in reach.
--- NOTE | 2018-12-10 11:10 | Consultation ---
History of Present Illness General Date patient seen: Dec 10, 2018 Chief Complaint: Fever Present Illness HPI 68-year-old male with DM, HTN, CVA/TIA, seizures, Glioblastoma, s/p radiation presented to ED last night for evaluation of high temperature and leucocytosis. He was also noted to have hematuria. On arrival to ER he denied chest pain or shortness of breath. Denies abdominal pain. No other aggravating relieving factors. This morning he developed tachycardia of 180's, which seemed to be SVT. He got cardizem 10 mg IV and transferred to ICU. Allergies: Coded Allergies: No Known Allergies (Unverified , 09/27/18) Medication History Scheduled Apixaban (Eliquis), 5 MG PO BID, (Reported) Atorvastatin (Lipitor), 80 MG ORAL BEDTIME, (Reported) Carvedilol (Coreg), 25 MG ORAL EVERY 12 HOURS Ciprofloxacin (Cipro), 750 MG GT Q12HR, (Reported) Dexamethasone* (Dexamethasone*), 4 MG PO BID, (Reported) Divalproex Sodium (Divalproex Sodium), 500 MG PO BID, (Reported) Ergocalciferol (Vitamin D2)* (Vitamin D*), 50,000 UNIT ORAL ONCE A WEEK, ( Reported) Finasteride (Finasteride), 5 MG ORAL DAILY@2100 Heparin Sod (Porcine) (Heparin Sodium*), 5,000 UNITS SUBQ EVERY 12 HOURS, ( Reported) Lacosamide (Vimpat), 200 MG PO BID, (Reported) Lamotrigine* (Lamictal*), 50 MG ORAL DAILY Losartan Potassium* (Losartan Potassium*), 25 MG ORAL DAILY, (Reported) Metformin Hcl (Glucophage), 1,000 MG ORAL BID, (Reported) Metoprolol Tartrate* (Metoprolol Tartrate*), 25 MG ORAL EVERY 12 HOURS, ( Reported) Midodrine (Midodrine HCl), 10 MG GT THREE TIMES A DAY, (Reported) Perampanel (Fycompa), 4 MG PO DAILY, (Reported) Poloxamer (Poloxamer 407), 2,500 GM TOPIC Q3days, (Reported) Quetiapine Fumarate* (Seroquel*), 25 MG ORAL Q12HR Ranitidine Hcl* (Zantac*), 150 MG ORAL DAILY, (Reported) Sitagliptin (Januvia), 50 MG ORAL DAILY Tamsulosin HCl (Flomax), 0.4 MG ORAL BEDTIME Temozolomide (Temozolomide), 5 MG PO DAILY, (Reported) Scheduled PRN Acetaminophen* (Acetaminophen 325MG Tablet*), 650 MG ORAL Q6H PRN for For Pain, (Reported) Insulin Aspart (Novolog Flexpen), SUBQ Q6HR PRN for Per rx protocol, (Reported) Miscellaneous Medications Insulin Lispro (Humalog), 0 SUBQ, (Reported) Patient History Healthcare decision maker Resuscitation status Full Code Advanced Directive on File Past Medical/Surgical History Past Medical/Surgical History: (1) Diabetes mellitus (2) Hypertension (3) Oligodendroglioma (4) Sacral decubitus ulcer (5) History of CVA (cerebrovascular accident) (6) Anemia (7) PEG (percutaneous endoscopic gastrostomy) adjustment/replacement/removal (8) Uncontrolled seizures Review of Systems All Other Systems: negative except mentioned in HPI Physical Exam General Appearance: cachetic, thin Lines, tubes and drains: peripheral, central line HEENT: normocephalic, atraumatic Neck: non-tender, normal alignment, supple Respiratory/Chest: chest wall non-tender, lungs clear Breasts: no masses Cardiovascular/Chest: normal peripheral pulses Abdomen: normal bowel sounds, non tender Genitourinary/Rectal: normal genital exam Extremities: normal range of motion Skin Exam: normal pigmentation Last 24 Hour Vital Signs Date Time Temp Pulse Resp B/P (MAP) Pulse Ox O2 Delivery O2 Flow Rate FiO2 12/10/18 10:20 98.6 180 30 129/109 (116) 12/10/18 10:19 190 129/109 12/10/18 10:01 95 Room Air 21 12/10/18 09:15 123/78 12/10/18 08:00 97.5 124 20 123/78 (93) 93 12/10/18 05:30 Nasal Cannula 2.0 12/10/18 05:19 110 12/10/18 04:45 98.6 105 22 115/69 99 Nasal Cannula 2.0 12/10/18 03:30 97.7 103 17 115/70 100 Room Air 2.0 12/10/18 02:10 97.7 96 17 105/65 100 Room Air 2.0 12/10/18 01:08 97.7 105 18 100/76 100 Room Air 2.0 12/10/18 01:08 2.0 100 12/10/18 01:03 97.7 78 14 104/71 (82) 98 Room Air Intake and Output 12/09/18 12/10/18 18:59 06:59 # Voids 1 Laboratory Tests Test 12/10/18 01:30 12/10/18 02:21 12/10/18 02:45 12/10/18 04:00 Urine Color Dionne Urine Appearance Cloudy Urine pH 5 (4.5-8.0) Urine Specific [place] 1.020 (1.005-1.035) Urine Protein 3+ (NEGATIVE) H Urine Glucose (UA) Negative (NEGATIVE) Urine Ketones 1+ (NEGATIVE) H Urine Blood 5+ (NEGATIVE) H Urine Nitrite Negative (NEGATIVE) Urine Bilirubin Negative (NEGATIVE) Urine Ictotest Negative (NEGATIVE) Urine Urobilinogen 1 MG/DL (0.0-1.0) H Urine Leukocyte Esterase 3+ (NEGATIVE) H Urine RBC Tntc /HPF (0 - 0) H Urine WBC 30-40 /HPF (0 - 0) H Urine Squamous Epithelial Cells None /LPF (NONE/OCC) Urine Bacteria Few /HPF (NONE) White Blood Count 21.2 K/UL (4.8-10.8) H Red Blood Count 3.93 M/UL (4.70-6.10) L Hemoglobin 11.8 G/DL (14.2-18.0) L Hematocrit 36.0 % (42.0-52.0) L Mean Corpuscular Volume 92 FL (80-99) Mean Corpuscular Hemoglobin 30.0 PG (27.0-31.0) Mean Corpuscular Hemoglobin Concent 32.7 G/DL (32.0-36.0) Red Cell Distribution Width 15.7 % (11.6-14.8) H Platelet Count 239 K/UL (150-450) Mean Platelet Volume 5.8 FL (6.5-10.1) L Neutrophils (%) (Auto) % (45.0-75.0) Lymphocytes (%) (Auto) % (20.0-45.0) Monocytes (%) (Auto) % (1.0-10.0) Eosinophils (%) (Auto) % (0.0-3.0) Basophils (%) (Auto) % (0.0-2.0) Sodium Level 130 MMOL/L (136-145) L Potassium Level 5.0 MMOL/L (3.5-5.1) Chloride Level 93 MMOL/L (98-107) L Carbon Dioxide Level 28 MMOL/L (21-32) Anion Gap 9 mmol/L (5-15) Blood Urea Nitrogen 22 mg/dL (7-18) H Creatinine 0.7 MG/DL (0.55-1.30) Estimat Glomerular Filtration Rate > 60 mL/min (>60) Glucose Level 293 MG/DL (74-106) H Calcium Level 9.3 MG/DL (8.5-10.1) Total Bilirubin 0.4 MG/DL (0.2-1.0) Aspartate Amino Transf (AST/SGOT) 45 U/L (15-37) H Alanine Aminotransferase (ALT/SGPT) 28 U/L (12-78) Alkaline Phosphatase 116 U/L (46-116) Total Creatine Kinase 239 U/L (26-308) Creatine Kinase MB 20.9 NG/ML (0.0-3.6) H Creatine Kinase MB Relative Index 8.7 Troponin I 0.178 ng/mL (0.000-0.056) Pro-B-Type Natriuretic Peptide 2434 pg/mL (0-125) H Total Protein 6.9 G/DL (6.4-8.2) Albumin 2.3 G/DL (3.4-5.0) L Globulin 4.6 g/dL Albumin/Globulin Ratio 0.5 (1.0-2.7) L Lactic Acid Level 2.80 mmol/L (0.4-2.0) H 2.80 mmol/L (0.66-2.22) H Microbiology Date/Time Source Procedure Growth Status 12/10/18 03:24 Rectum Received Height (Feet): 5 Height (Inches): 10.00 Weight (Pounds): 150 Medications Current Medications Medications (Trade) Dose Ordered Sig/Chace Route PRN Reason Start Time Stop Time Status Last Admin Dose Admin Acetaminophen (Tylenol) 650 mg Q4H PRN ORAL Mild Pain/Temp > 100.5 12/10/18 07:45 01/09/19 07:44 12/10/18 10:03 Atorvastatin Calcium (Lipitor) 80 mg BEDTIME ORAL 12/10/18 21:00 01/09/19 20:59 Cefepime HCl 1 gm/ Dextrose 55 ml @ 110 mls/hr EVERY 12 HOURS IVPB 12/10/18 09:00 12/17/18 08:59 Dextrose (Dextrose 50%) 25 ml Q30M PRN IV Hypoglycemia 12/10/18 06:30 01/09/19 06:29 Dextrose (Dextrose 50%) 50 ml Q30M PRN IV Hypoglycemia 12/10/18 06:30 01/09/19 06:29 Diltiazem HCl (Cardizem) 10 mg ONCE IVP 12/10/18 11:00 12/10/18 12:00 Divalproex Sodium (Depakote) 500 mg BID ORAL 12/10/18 09:00 01/09/19 08:59 12/10/18 09:15 Finasteride (Proscar) 5 mg DAILY@2100 ORAL 12/10/18 21:00 01/09/19 20:59 Insulin Aspart (NovoLOG) BEFORE MEALS AND HS SUBQ 12/10/18 06:30 01/09/19 06:29 Lamotrigine (LaMICtal) 50 mg DAILY ORAL 12/10/18 09:00 01/09/19 08:59 12/10/18 09:14 Losartan Potassium (Cozaar) 25 mg DAILY ORAL 12/10/18 09:00 01/09/19 08:59 12/10/18 09:15 Metformin HCl (Glucophage) 1,000 mg BID ORAL 12/10/18 09:00 01/09/19 08:59 Metronidazole 100 ml @ 100 mls/hr Q8HR@0000,0800,1600 IVPB 12/10/18 08:00 12/17/18 07:59 12/10/18 09:09 Midodrine (Pro-Amatine) 10 mg THREE TIMES A DAY GT 12/10/18 09:00 01/09/19 08:59 UNV Morphine Sulfate (Morphine Sulfate) 4 mg Q6H PRN IVP Severe Pain (Pain Scale 7-10) 12/10/18 10:10 12/17/18 10:09 12/10/18 10:15 Sitagliptin Phosphate (Januvia) 50 mg DAILY ORAL 12/10/18 09:00 01/09/19 08:59 Tamsulosin HCl (Flomax) 0.4 mg BEDTIME ORAL 12/10/18 21:00 01/09/19 20:59 Assessment/Plan Problem List: (1) Sepsis ICD Codes: A41.9 - Sepsis, unspecified organism SNOMED: 11510591 Qualifiers: Qualified Codes: A41.9 - Sepsis, unspecified organism (2) Tachycardia ICD Codes: R00.0 - Tachycardia, unspecified SNOMED: 0916553 (3) Acute encephalopathy ICD Codes: G93.40 - Encephalopathy, unspecified SNOMED: 41099930, 846772962 (4) Hematuria ICD Codes: R31.9 - Hematuria, unspecified SNOMED: 56716369 (5) Oligodendroglioma ICD Codes: C71.9 - Malignant neoplasm of brain, unspecified SNOMED: 88081673, 024796383 (6) Severe malnutrition ICD Codes: E43 - Unspecified severe protein-calorie malnutrition SNOMED: 02464759 (7) Diabetes mellitus ICD Codes: E11.9 - Type 2 diabetes mellitus without complications SNOMED: 75356539 (8) Hypertension ICD Codes: I10 - Essential (primary) hypertension SNOMED: 23889335 (9) History of CVA (cerebrovascular accident) ICD Codes: Z86.73 - Personal history of transient ischemic attack (TIA), and cerebral infarction without residual deficits SNOMED: 791413983 Assessment/Plan: iv fluids iv abx cardiac evaluation ID evaluation resume seizure meds prn analgesics dvt prophylaxis Raul Feng MD Dec 10, 2018 11:10
--- NOTE | 2018-12-10 11:10 | NUR ---
NURSE NOTES: Cooling blanket placed under patient. Patient rectal temp 101.3. Will continue to monitor.
--- NOTE | 2018-12-10 12:00 | NUR ---
NURSE NOTES: Patient temp now 98.8. HR 133. blood pressure 77/51. Dr Feng ordered 1 liter bolus of NS. Will administer at this time. Patient bed in low position with bed alarm on and call light in reach.
--- NOTE | 2018-12-10 12:46 | NUR ---
CASE MANAGEMENT:REVIEW 12/10/18 68YR OLD MALE BIBA FROM [facility] CC: FEVER OF 102.0 AND WBC OF 18.7 SI: SEPSIS. PNA. UTI. ELEVATED TROPONIN 97.7 78 14 104/51 98% ON RA WBC+21.2 NA-130 TROPONIN(+) 0.178 IS: TYLENOL GIVEN AT [facility] 1L NS BOLUS IV ROCEPHIN ASA PO IV LEVAQUIN URINE CX BLOOD CX : TO TELEMETRY UNIT @ 0510 TRANSFERRED TO ICU @ 1100 SI: SVT HR~190 IS: IV CARDIZEM X2 1L NS BOLUS IV CEFEPIME Q12 IV FLAGYL Q8HRS INTERQUAL CRITERIA MET
[2018-12-10] MEDS ORDERED: Heparin1,000 units/500ml Premix(Conc:2 units/ml) IV PRN (13:00)
[2018-12-10] MEDS ORDERED: Lidocaine 1% Plain 30 ml INJ PRN (13:00)
--- NOTE | 2018-12-10 13:09 | NUR ---
NURSE NOTES: Obtained consent for PICC from Patient's son Pollo Crystal.
--- NOTE | 2018-12-10 14:30 | NUR ---
NURSE NOTES: Lactic acid 6.0. Redraw ordered for 1800. Dr Feng notified. Received order for consult for infectious disease, Dr Carias. Order placed.
--- NOTE | 2018-12-10 15:16 | NUR ---
NURSE NOTES: Patient's blood pressure is 88/[address] Feng notified. No new orders.
--- NOTE | 2018-12-10 15:32 | NUR ---
NURSE NOTES:WOUND CARE NOTES:Pt presented on admission with full thickness sacral pressure injury with undermining and bone visible at base of wound.Base of wound 90% granular with an area of 10% loose slough noted at undermined area at 11-12o'clock. Wound is malodorous. Small amt. brown exudate noted. Dark brown borders noted. (L)8.5cm x (W)7cm x (D)1.9cm undermining 9-5 by 3.5cm @9o'clock. Bilat groin areas and scrotum erythematous. Non-blanchable erythema without fluctuance noted to R heel and plantar R heel. Non-blanchable erythema without fluctuance noted to L heel. Tx.Plan:Cleanse sacral wound with Saline. Loosely pack with Hydrogel infused Kerlix. Apply Moisture Barrier periwound. Cover with Optifoam.Change Twice Daily and PRN. Apply Moisture Barrier Paste to Bilat groin areas and Scrotum with each Incontinence care. Apply Cavilon Skin Barrier to both Heels. Cover each heel with Optifoam drsg. Change every 7 days and prn. Dolphin Air Fluidized Mattress. Reposition at least every 2hours or as tolerated. Position with Pillow between knees. Off-load heels with Pillow.
--- NOTE | 2018-12-10 15:44 | Diagnostic Imaging Report ---
Indication: Shortness of breath Technique: One view of the chest Comparison: 11/12/2018 Findings: There is atelectasis and possibly some reticular infiltrate at the right lung base. The lungs and pleural spaces are otherwise clear. The heart size is normal. There are degenerative changes of the thoracic spine again noted. Previously demonstrated left subclavian central venous catheter has been removed Impression: Right basilar atelectasis and possibly some reticular infiltrate.
--- NOTE | 2018-12-10 16:10 | Cardiac Electrophysiology PN ---
Subjective Subjective [id number] Objective Last 24 Hour Vital Signs Date Time Temp Pulse Resp B/P (MAP) Pulse Ox O2 Delivery O2 Flow Rate FiO2 12/10/18 13:37 131 106/61 12/10/18 12:00 98.8 133 13 106/61 (76) 100 12/10/18 11:20 Nasal Cannula 2.0 12/10/18 10:45 98.6 12/10/18 10:33 98.6 12/10/18 10:20 98.6 180 30 129/109 (116) 12/10/18 10:19 190 129/109 12/10/18 10:01 95 Room Air 21 12/10/18 09:15 123/78 12/10/18 08:00 97.5 124 20 123/78 (93) 93 12/10/18 05:30 Nasal Cannula 2.0 12/10/18 05:19 110 12/10/18 04:45 98.6 105 22 115/69 99 Nasal Cannula 2.0 12/10/18 03:30 97.7 103 17 115/70 100 Room Air 2.0 12/10/18 02:10 97.7 96 17 105/65 100 Room Air 2.0 12/10/18 01:08 97.7 105 18 100/76 100 Room Air 2.0 12/10/18 01:08 2.0 100 12/10/18 01:03 97.7 78 14 104/71 (82) 98 Room Air Intake and Output 12/09/18 12/10/18 18:59 06:59 # Voids 1 Laboratory Tests Test 12/10/18 01:30 12/10/18 02:21 12/10/18 02:45 12/10/18 04:00 Urine Color [place] Urine Appearance Cloudy Urine pH 5 (4.5-8.0) Urine Specific [place] 1.020 (1.005-1.035) Urine Protein 3+ (NEGATIVE) H Urine Glucose (UA) Negative (NEGATIVE) Urine Ketones 1+ (NEGATIVE) H Urine Blood 5+ (NEGATIVE) H Urine Nitrite Negative (NEGATIVE) Urine Bilirubin Negative (NEGATIVE) Urine Ictotest Negative (NEGATIVE) Urine Urobilinogen 1 MG/DL (0.0-1.0) H Urine Leukocyte Esterase 3+ (NEGATIVE) H Urine RBC Tntc /HPF (0 - 0) H Urine WBC 30-40 /HPF (0 - 0) H Urine Squamous Epithelial Cells None /LPF (NONE/OCC) Urine Bacteria Few /HPF (NONE) White Blood Count 21.2 K/UL (4.8-10.8) H Red Blood Count 3.93 M/UL (4.70-6.10) L Hemoglobin 11.8 G/DL (14.2-18.0) L Hematocrit 36.0 % (42.0-52.0) L Mean Corpuscular Volume 92 FL (80-99) Mean Corpuscular Hemoglobin 30.0 PG (27.0-31.0) Mean Corpuscular Hemoglobin Concent 32.7 G/DL (32.0-36.0) Red Cell Distribution Width 15.7 % (11.6-14.8) H Platelet Count 239 K/UL (150-450) Mean Platelet Volume 5.8 FL (6.5-10.1) L Neutrophils (%) (Auto) % (45.0-75.0) Lymphocytes (%) (Auto) % (20.0-45.0) Monocytes (%) (Auto) % (1.0-10.0) Eosinophils (%) (Auto) % (0.0-3.0) Basophils (%) (Auto) % (0.0-2.0) Sodium Level 130 MMOL/L (136-145) L Potassium Level 5.0 MMOL/L (3.5-5.1) Chloride Level 93 MMOL/L (98-107) L Carbon Dioxide Level 28 MMOL/L (21-32) Anion Gap 9 mmol/L (5-15) Blood Urea Nitrogen 22 mg/dL (7-18) H Creatinine 0.7 MG/DL (0.55-1.30) Estimat Glomerular Filtration Rate > 60 mL/min (>60) Glucose Level 293 MG/DL (74-106) H Calcium Level 9.3 MG/DL (8.5-10.1) Total Bilirubin 0.4 MG/DL (0.2-1.0) Aspartate Amino Transf (AST/SGOT) 45 U/L (15-37) H Alanine Aminotransferase (ALT/SGPT) 28 U/L (12-78) Alkaline Phosphatase 116 U/L (46-116) Total Creatine Kinase 239 U/L (26-308) Creatine Kinase MB 20.9 NG/ML (0.0-3.6) H Creatine Kinase MB Relative Index 8.7 Troponin I 0.178 ng/mL (0.000-0.056) Pro-B-Type Natriuretic Peptide 2434 pg/mL (0-125) H Total Protein 6.9 G/DL (6.4-8.2) Albumin 2.3 G/DL (3.4-5.0) L Globulin 4.6 g/dL Albumin/Globulin Ratio 0.5 (1.0-2.7) L Lactic Acid Level 2.80 mmol/L (0.4-2.0) H 2.80 mmol/L (0.66-2.22) H Test 12/10/18 12:15 12/10/18 14:55 Lactic Acid Level 6.00 mmol/L (0.4-2.0) H 4.90 mmol/L (0.66-2.22) H Microbiology Date/Time Source Procedure Growth Status 12/10/18 03:24 Rectum Received Huy Valladares MD Dec 10, 2018 16:10
--- NOTE | 2018-12-10 16:20 | Diagnostic Imaging Report ---
Indications: Needs long-term IV access Technique: Procedure performed at bedside. Procedural timeout performed. Ultrasound confirms patent compressible left basilic vein. Total sterile technique, including sterile probe cover and sterile gel, sterile gloves, hand hygiene, hat, mask,, sterile gown, large sterile drape, and preparation with 2% chlorhexidine utilized. Local anesthesia with 1% lidocaine. Under real-time ultrasound guidance, puncture basilic vein using 21-gauge needle, passage 0.018 guidewire, exchange for 4 Wolof peel-away sheath. 4 Wolof Bard dual-lumen power PICC cut to 46 cm. It was inserted through the peel-away sheath. Peel-away sheath and guidewire removed. Catheter fixed to the skin. Both catheter ports aspirated and flushed. Patient tolerated procedure well, without immediate complication. Followup chest x-ray obtained, documents catheter tip position at the deep right atrium. The catheter was withdrawn 3 cm, and a repeat chest radiograph obtained demonstrating catheter tip position at the cavoatrial junction Impression: Successful bedside placement of left arm PICC under sonographic guidance, as described above.
--- NOTE | 2018-12-10 17:30 | NUR ---
NURSE NOTES: Patient complaining of sacral pain at this time. Patient only has tylenol and morphine ordered. Patient blood pressure too low for morphine to be given. Will follow up with Dr Kidd for medication order.
[2018-12-10] MEDS: dilTIAZem HCl 60mg tab ORAL SCH ×2 (18:00→18:16)
--- NOTE | 2018-12-10 18:00 | NUR ---
NURSE NOTES: Notified Dr Valladares regarding patient's low blood pressure.
--- NOTE | 2018-12-10 18:22 | History & Physical ---
History and Physical History & Physicial Dictated for Int Med-Dr Braun no. [id number]. ICU Jesus Kidd MD Dec 10, 2018 18:22
[2018-12-10] MEDS: HYDROcodone/Acetamin 5/325 tab ORAL PRN (18:57)
--- NOTE | 2018-12-10 19:00 | NUR ---
NURSE NOTES: Dr Kidd ordered Plato 5mg Q4Hr as needed. Will administer medication at this time. Patient repositioned and states that he feels more comfortable at this time.
--- NOTE | 2018-12-10 19:15 | NUR ---
HAND-OFF: Report given to CHIDI Hebert. Patient blood pressure 98/71. Temperature 98.6. HR 124. Patient restless and tossing around in the bed and complaining of pain. Medication already given. Endorsed to follow up.
[2018-12-10] MEDS ORDERED: Dyna-Hex 2% Top Sol 2oz TOPIC SCH (20:00)
--- NOTE | 2018-12-10 20:00 | NUR ---
NURSE NOTES: pt transfer from tele with hr 120 -130 stachy pt confuse and restless infusing well reposition and oral care done
--- NOTE | 2018-12-10 20:00 | Consultation ---
DATE OF CONSULTATION: 12/10/2018 CARDIOLOGY CONSULTATION CONSULTING PHYSICIAN: Huy Valladares M.D. REFERRING PHYSICIAN: Camacho Braun M.D. REASON FOR CONSULTATION: SVT at a rate up to 200s. HISTORY OF PRESENT ILLNESS: The patient is a 68-year-old gentleman with history of hypertension, diabetes, coronary artery disease, prior myocardial infarction as well as history of CVA, TIA, seizures, and glioblastoma status post radiation as well as dysphagia, status post PEG placement who presented to the emergency room for leukocytosis and fever. He was noted to have hematuria. The patient did not have any chest pain or shortness of breath on arrival to the emergency room. In the morning, the patient developed tachycardia with heart rate 180 to 200. The patient received 10 mg IV Cardizem and transferred to intensive care unit. Eliquis as well as metoprolol. Stated that he might have atrial fibrillation before. REVIEW OF SYSTEMS: Negative other than what is mentioned in the history of present illness. PAST MEDICAL HISTORY: As mentioned above. FAMILY HISTORY: Noncontributory. PHYSICAL EXAMINATION: VITAL SIGNS: Show blood pressure of 106/61, pulse was in the 180s, currently 110 to 120, respirations 18, temperature 98.8. HEAD AND NECK: No JVD. LUNGS: Clear. CARDIOVASCULAR: Tachycardic. S1 and S2 with no gallop or murmur. ABDOMEN: Status post G-tube. EXTREMITIES: No pitting edema. LABORATORY DATA: White count 21,000, hemoglobin of 11.8, hematocrit 36, and platelet count is 239. His troponin is 0.178. Sodium 130, potassium 5, BUN of 22, creatinine 0.7, glucose of 293. Bilirubin is 0.4. BNP is 2434. ASSESSMENT AND PLAN: 1. SVT with rapid ventricular response. The patient received Cardizem. We will discontinue Cozaar and maximize his AV-veto radha with Cardizem. We will get an echocardiogram and completely rule out IA protocol. 2. Hypertension. Discontinue losartan. Start on Cardizem 60 t.i.d. 3. History of glioblastoma. 4. Dysphagia, status post PEG placement. 5. Diabetes. 6. Encephalopathy. Thank you very much for allowing me to participate in the care of this patient. Please do not hesitate to contact me for any questions regarding my evaluation. Huy Valladares M.D. DR: OXANA JOB#: [id number] CC:
--- NOTE | 2018-12-10 20:45 | History and Physical Report ---
DATE OF ADMISSION: 12/10/2018 CHIEF COMPLAINT: The patient is a 68-year-old male with history of brain cancer presents with a chief complaint of hematuria, fever, and abnormal laboratories. HISTORY OF PRESENT ILLNESS: The patient was admitted to [facility] from 11/10/2018 to 11/17/2018. Please see history and physical and discharge summary dictated at that time. The patient is a resident of [facility]. According to staff at [facility], the patient began to experience fevers on 12/09/2018. The patient also had hematuria through his Mota. The patient also was noted to have leukocytosis. The patient was transferred to [facility] emergency room. The patient was admitted for fever, hematuria, and leukocytosis to rule out sepsis. REVIEW OF SYSTEMS: Unable to assess secondary to the patient's mental status. 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 2. Seizure disorder. 3. Diabetes type 2. 4. History of cerebrovascular accident. 5. Right hemiparesis. 6. Hypertension. 7. Coronary artery disease. 8. Expressive aphasia. PAST SURGICAL HISTORY: Significant for: 1. Craniotomy secondary to the brain tumor as above. 2. Appendectomy. 3. Tonsillectomy. 4. Debridement of sacral decubitus ulcer on 10/13/2018 at [facility]. 5. PEG placement on 11/05/2018 at [facility]. CURRENT MEDICATIONS: 1. Apixaban 5 mg p.o. twice daily. 2. Atorvastatin 80 mg p.o. at bedtime. 3. Coreg 25 mg p.o. twice daily. 4. Dexamethasone 4 mg p.o. twice daily. 5. Depakote 500 mg p.o. twice daily. 6. Vitamin D 50,000 units. p.o. weekly. 7. Finasteride 5 mg p.o. daily. 8. NovoLog sliding scale. 9. Vimpat 200 mg p.o. twice daily. 10. Lamictal 50 mg p.o. daily. 11. Losartan 25 mg p.o. daily. 12. Metformin 1000 mg p.o. twice daily. 13. Metoprolol 25 mg p.o. twice daily. 14. Midodrine 10 mg per G-tube 3 times daily. 15. Fycompa 4 mg per G-tube daily. 16. Poloxamer 25,000 grams topically every 3 days. 17. Seroquel 25 mg p.o. twice daily. 18. Zantac 150 mg p.o. daily. 19. Januvia 50 mg p.o. daily. 20. Flomax 0.4 mg p.o. at bedtime. 21. Temozolomide 5 mg p.o. daily. ALLERGIES: No known drug allergies. SOCIAL HISTORY: The patient is and has 2 grown sons. The patient is currently a resident of [facility]. The patient denies tobacco or alcohol use. PHYSICAL EXAMINATION: VITAL SIGNS: Temperature 98.6, respirations 30, pulse 130, and blood pressure 129/109. GENERAL: The patient is a well-developed and well-nourished thin-appearing male, in no apparent distress. HEENT: Eyes, pupils are equal and responsive to light and accommodation. Extraocular movements are intact. NECK: Supple without lymphadenopathy. CHEST: Lungs are clear to auscultation bilaterally without wheezes or rales. CARDIOVASCULAR: Regular rhythm and rate. S1 and S2 are normal without murmurs, rubs, or gallops. ABDOMEN: Soft, nontender, and nondistended. Positive bowel sounds. No evidence of hepatosplenomegaly. Currently, no rebound or guarding noted. EXTREMITIES: Negative for clubbing, cyanosis, or edema. RECTAL/GENITAL: Not performed. NEUROLOGIC: Cranial nerves II through XII are grossly intact without focal deficits. LABORATORY STUDIES: WBC 21.2, hemoglobin 11.8, hematocrit 36.0, and platelets 239,000. Sodium 130, potassium 5.0, chloride 93, CO2 28, BUN 22, creatinine 0.7, and glucose 293. Troponin 0.178. BNP elevated at 34. Urinalysis showed 3+ protein, 1+ ketones, 5+ blood, 3+ leukocyte esterase, rbc's too numerous to count, and 30 to 40 wbc's. ASSESSMENT: This is a 68-year-old male. 1. Fever. 2. Hematuria. 3. Leukocytosis. 4. Brain cancer. 5. Seizure disorder. 6. Diabetes type 2. 7. Cerebrovascular disease. 8. Right hemiparesis. 9. Hypertension. 10. Coronary artery disease. 11. Expressive aphasia. TREATMENT: 1. Fever/hematuria/leukocytosis, may be secondary to urinary tract infection versus sepsis. Urine culture is pending. The patient has been started empirically on intravenous cefepime. Await urine culture results. 2. Brain cancer. 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 3. Seizure disorder. Continue Depakote and Vimpat as above. 4. Diabetes type 2. NovoLog sliding scale has been instituted. 5. Cerebrovascular disease/right hemiparesis. 6. Hypertension. 7. Coronary artery disease. 8. Expressive aphasia. Jesus Kidd M.D. DR: ROXY JOB#: [id number] CC:
[2018-12-10] MEDS: Depakote 500mg tab ORAL SCH (21:00)
[2018-12-10] MEDS: Cefepime HCl 1 GM in D5W 55 ML IVPB SCH (21:00)
[2018-12-10] MEDS ORDERED: Atorvastatin 80mg tab ORAL SCH (21:00)
[2018-12-10] MEDS ORDERED: Tamsulosin 0.4mg cap ORAL SCH ×2 (21:00)
--- NOTE | 2018-12-10 22:00 | NUR ---
NURSE NOTES: dr epstein in and seen pt and reposition carroll cath and order restraints andpain medication`
--- NOTE | 2018-12-10 23:11 | Diagnostic Imaging Report ---
APPROVED REPORT CPT Code: 39693 Present Symptoms Comments: BILATERAL LEGS PAIN. BILATERAL: Imaging reveals a patent deep venous system bilaterally. There is no evidence of thrombus within the femoral, popliteal or tibial segments. The greater saphenous veins are also within normal limits. Doppler indicates normal spontaneous flow within these segments.
--- NOTE | 2018-12-10 23:15 | Consultation ---
DATE OF CONSULTATION: 12/10/2018 CONSULTING PHYSICIAN: Isael Rousseau M.D. REFERRING PHYSICIAN: Camacho Braun M.D. REASON FOR CONSULTATION: Evaluation of hematuria. HISTORY OF PRESENT ILLNESS: This is a 68-year-old male who [facility] a [facility]. The patient has a history of BPH, urinary retention, and chronic Mota. He was brought to the hospital because of fevers and hematuria. Urology evaluation is requested. The patient's Mota is draining. Urine has been reportedly felipe. He is confused. He had some tachycardia and was transferred to the ICU. Most of the history was obtained from the chart. PAST MEDICAL HISTORY: Significant for oligodendroglioma, seizure disorder, diabetes, cerebrovascular accident, hemiparesis, hypertension, coronary artery disease, and expressive aphasia. PAST SURGICAL HISTORY: He has had craniotomy, appendectomy, tonsillectomy, debridement of decubitus ulcers, and PEG placement. CURRENT MEDICATIONS: Here in the hospital, the patient is on Lamictal and Januvia. He is on cefepime, Depakote, finasteride, Proscar, [place], Cardizem, Tylenol, and subcutaneous heparin. ALLERGIES: No known drug allergies. SOCIAL HISTORY: He is a resident of [facility]. FAMILY HISTORY: Unable to obtain. REVIEW OF SYSTEMS: Unable to obtain. PHYSICAL EXAMINATION: GENERAL: An elderly male, confused. VITAL SIGNS: Temperature is 97.9, blood pressure 92/56, and pulse 121. HEENT: Normocephalic. NECK: Supple. ABDOMEN: Soft. GENITOURINARY: A 16-Welsh Mota in place. Urine is felipe. LABORATORY DATA: UA showed too numerous to count rbc's, 30 to 40 wbc's, and 3+ protein. White count is 21.2, hemoglobin 11.8, and platelets 239. BUN is 22, creatinine 0.7. DIAGNOSTIC IMAGING STUDIES: There are no renal imaging studies here at [place]. IMPRESSION: 1. Hematuria. 2. Benign prostatic hypertrophy. 3. Urinary retention. 4. Probable neurogenic bladder. 5. Pyuria. 6. Proteinuria. PLAN AND DISCUSSION: The patient was evaluated upon initial inspection. It appeared that the Mota catheter was not in the bladder and as such I deflated the balloon. I was able to push it back into the bladder in correct position and irrigated. There was some mild bleeding noted at the meatus probably from his urethral trauma, but the urine in the bladder appears to be felipe yellow without active bleeding. The patient is confused and I did talk to the nursing staff to place the patient in restraints so that he would not pull the catheter out and cause trauma. At this time, I would recommend to continue with Flomax and finasteride as well as antibiotics as ordered, and I would limit his anticoagulation. He is currently not on subcutaneous heparin. He can be watched, his Mota catheter can be irrigated, as needed cystoscopy in the future, and we will consider renal imaging studies. Thank you for this consultation. Isael Rousseau M.D. DR: NISSA JOB#: [id number] CC:
[2018-12-11] VITALS (19 sets, daily range): BP systolic 89–121; BP diastolic 40–89
--- NOTE | 2018-12-11 | NUR ---
NURSE NOTES: asleep at interval
[2018-12-11] MEDS: dilTIAZem HCl 60mg tab ORAL SCH ×5 (00:17→23:53)
--- NOTE | 2018-12-11 04:00 | NUR ---
NURSE NOTES: complete bed bath and wound care done
[2018-12-11] MEDS: NovoLOG Insulin Flexpen SUBQ SCH ×4 (05:47→20:53)
[2018-12-11 06:25] LABS: HEMATOCRIT 30.2 % (42.0-52.0); HEMOGLOBIN 9.8 G/DL (14.2-18.0); MEAN CORPUSCULAR VOLUME 93 FL (80-99); PLATELET COUNT 276 K/UL (150-450); RED BLOOD COUNT 3.26 M/UL (4.70-6.10); RED CELL DISTRIBUTION WIDTH 15.3 % (11.6-14.8); WHITE BLOOD COUNT 18.7 K/UL (4.8-10.8)
[2018-12-11 06:42] LABS: ALANINE AMINOTRANSFERASE 22 U/L (12-78); ALBUMIN 2.1 G/DL (3.4-5.0); ALBUMIN/GLOBULIN RATIO 0.7 (1.0-2.7); ALKALINE PHOSPHATASE 92 U/L (46-116); ANION GAP 8 mmol/L (5-15); ASPARTATE AMINO TRANSFERASE 25 U/L (15-37); BILIRUBIN,TOTAL 0.3 MG/DL (0.2-1.0); BLOOD UREA NITROGEN 11 mg/dL (7-18); CALCIUM 8.3 MG/DL (8.5-10.1); CARBON DIOXIDE 29 MMOL/L (21-32); CHLORIDE 103 MMOL/L (98-107); CREATININE 0.4 MG/DL (0.55-1.30); POTASSIUM 3.7 MMOL/L (3.5-5.1); SODIUM 140 MMOL/L (136-145)
--- NOTE | 2018-12-11 07:32 | NUR ---
HAND-OFF: Report give jairo parekh
--- NOTE | 2018-12-11 08:06 | NUR ---
NURSE NOTES: Patient received from CHIDI Hebert. Patient awake and restless when received.Saturate well on the monitor at 98% and HR at 124 t this time.On Cardizem tablet 60mg Q6hrs. GT in place and placement intact with no residual.Patient NPO at this time with feeding recommendation by 21 dealer of Glucereliecer 1.5 at 50cc, will follow up with MD. Mota catheter in place and draining yellowish urine with no hematuria nor sediment noted. Turned and repositioned for skin management.Bilateral lower extremities floated on pillows.Bilateral soft wrist restraint with no skin impairment due to removal of device.Bed in lower position,kept clean dry and comfortable.Will continue to monitor.
[2018-12-11] MEDS: Depakote 500mg tab ORAL SCH (08:24)
[2018-12-11] MEDS: HYDROcodone/Acetamin 5/325 tab ORAL PRN (08:26)
[2018-12-11] MEDS ORDERED: Losartan 25mg tab ORAL SCH (09:00)
[2018-12-11] MEDS ORDERED: sitaGLIPtin 50mg tab ORAL SCH (09:00)
--- NOTE | 2018-12-11 09:58 | Cardiac Electrophysiology PN ---
Assessment/Plan Assessment/Plan 1. SVT with rapid ventricular response. No recurrence on Cardizem 60 q 6. Echocardiogram report pending 2. Troponin leak 1.7> 1.3 2. Hypertension. On Cardizem 60 q6 3. History of glioblastoma. 4. Dysphagia, status post PEG placement. 5. Diabetes. 6. Encephalopathy. 7. Hematuria. Resolved after Mota was advanced and positioned in bladder by Dr Rousseau OK to transfer to [facility] Subjective Subjective In ICU. HR better on PO Cardizem. In SR. Hematuria resolved after Mota advanced Objective Last 24 Hour Vital Signs Date Time Temp Pulse Resp B/P (MAP) Pulse Ox O2 Delivery O2 Flow Rate FiO2 12/11/18 06:00 124 24 107/42 (63) 98 12/11/18 05:47 114 103/69 12/11/18 05:00 106 22 100/42 (61) 98 12/11/18 04:00 124 12/11/18 04:00 98.0 122 16 103/42 (62) 98 12/11/18 03:00 120 18 120/40 (66) 98 12/11/18 02:00 115 19 103/42 (62) 98 12/11/18 01:00 106 22 93/42 (59) 98 12/11/18 00:17 113 116/36 12/11/18 00:00 110 12/11/18 00:00 Nasal Cannula 2.0 12/11/18 00:00 98.0 124 22 116/66 (83) 98 12/10/18 23:00 125 22 113/64 (80) 98 12/10/18 22:00 120 22 101/58 (72) 98 12/10/18 21:00 122 20 113/56 (75) 98 12/10/18 20:36 97 Room Air 21 12/10/18 20:00 98.6 120 21 113/57 (75) 98 12/10/18 20:00 Nasal Cannula 2.0 12/10/18 20:00 120 12/10/18 19:00 121 20 93/56 (68) 98 12/10/18 18:00 121 21 93/56 (68) 100 12/10/18 18:00 118 93/56 12/10/18 17:00 114 18 97/62 (74) 100 12/10/18 16:00 110 12/10/18 16:00 97.9 115 19 98/55 (69) 100 12/10/18 15:00 117 15 85/61 (69) 100 12/10/18 14:00 124 19 101/58 (72) 100 12/10/18 13:37 131 106/61 12/10/18 13:00 132 16 106/61 (76) 100 12/10/18 12:00 98.8 133 13 106/61 (76) 100 12/10/18 12:00 131 12/10/18 11:20 Nasal Cannula 2.0 12/10/18 11:00 101.3 142 20 94/55 (68) 99 12/10/18 11:00 142 12/10/18 10:45 98.6 12/10/18 10:33 98.6 12/10/18 10:20 98.6 180 30 129/109 (116) 12/10/18 10:19 190 129/109 12/10/18 10:01 95 Room Air 21 Intake and Output 12/10/18 12/11/18 19:00 07:00 Intake Total 1155 ml 55 ml Output Total 600 ml 476 ml Balance 555 ml -421 ml Intake Oral 0 ml 0 ml IV Total 1155 ml 55 ml Output Urine Total 600 ml 476 ml # Bowel Movements 1 2 Laboratory Tests Test 12/10/18 12:15 12/10/18 14:55 12/10/18 17:58 12/11/18 00:10 Lactic Acid Level 6.00 mmol/L (0.4-2.0) H 4.90 mmol/L (0.66-2.22) H 3.20 mmol/L (0.4-2.0) H 1.30 mmol/L (0.4-2.0) Test 12/11/18 06:00 White Blood Count 18.7 K/UL (4.8-10.8) H Red Blood Count 3.26 M/UL (4.70-6.10) L Hemoglobin 9.8 G/DL (14.2-18.0) L Hematocrit 30.2 % (42.0-52.0) L Mean Corpuscular Volume 93 FL (80-99) Mean Corpuscular Hemoglobin 30.1 PG (27.0-31.0) Mean Corpuscular Hemoglobin Concent 32.5 G/DL (32.0-36.0) Red Cell Distribution Width 15.3 % (11.6-14.8) H Platelet Count 276 K/UL (150-450) Mean Platelet Volume 6.2 FL (6.5-10.1) L Neutrophils (%) (Auto) % (45.0-75.0) Lymphocytes (%) (Auto) % (20.0-45.0) Monocytes (%) (Auto) % (1.0-10.0) Eosinophils (%) (Auto) % (0.0-3.0) Basophils (%) (Auto) % (0.0-2.0) Differential Total Cells Counted 100 Neutrophils % (Manual) 91 % (45-75) H Lymphocytes % (Manual) 5 % (20-45) L Monocytes % (Manual) 4 % (1-10) Eosinophils % (Manual) 0 % (0-3) Basophils % (Manual) 0 % (0-2) Band Neutrophils 0 % (0-8) Platelet Estimate Adequate Platelet Morphology Normal Anisocytosis 1+ Sodium Level 140 MMOL/L (136-145) Potassium Level 3.7 MMOL/L (3.5-5.1) Chloride Level 103 MMOL/L (98-107) Carbon Dioxide Level 29 MMOL/L (21-32) Anion Gap 8 mmol/L (5-15) Blood Urea Nitrogen 11 mg/dL (7-18) Creatinine 0.4 MG/DL (0.55-1.30) L Estimat Glomerular Filtration Rate > 60 mL/min (>60) Glucose Level 96 MG/DL (74-106) # Lactic Acid Level 1.30 mmol/L (0.4-2.0) Calcium Level 8.3 MG/DL (8.5-10.1) L Phosphorus Level 3.0 MG/DL (2.5-4.9) Magnesium Level 1.7 MG/DL (1.8-2.4) L Total Bilirubin 0.3 MG/DL (0.2-1.0) Aspartate Amino Transf (AST/SGOT) 25 U/L (15-37) Alanine Aminotransferase (ALT/SGPT) 22 U/L (12-78) Alkaline Phosphatase 92 U/L (46-116) Troponin I 0.129 ng/mL (0.000-0.056) Total Protein 5.3 G/DL (6.4-8.2) L Albumin 2.1 G/DL (3.4-5.0) L Globulin 3.2 g/dL Albumin/Globulin Ratio 0.7 (1.0-2.7) L Microbiology Date/Time Source Procedure Growth Status 12/10/18 01:30 Urine,Clean Catch Urine Culture - Preliminary Gram Negative Bacillus 1 Resulted 12/10/18 03:24 Rectum Received Objective HEAD AND NECK: No JVD. LUNGS: Clear. CARDIOVASCULAR: Regular S1 and S2 with no gallop or murmur. ABDOMEN: Status post G-tube. EXTREMITIES: No pitting edema. Huy Valladares MD Dec 11, 2018 09:58
--- NOTE | 2018-12-11 09:58 | NUR ---
NURSE NOTES: Seen by Dr Valladares order to transfer to [facility].Received call from Dr Rousseau and update given on pt status.Will continue to monitor
--- NOTE | 2018-12-11 10:01 | Urology Progress Note ---
Assessment/Plan Assessment/Plan: 1. Hematuria. 2. Benign prostatic hypertrophy. 3. Urinary retention. 4. Probable neurogenic bladder. 5. Pyuria. 6. Proteinuria. keep carroll hand irrigated and do PRN restraints to prevent carroll trauma flomax and proscar abx as ordered f/u on urine cx consider renal imaging cysto later Subjective Allergies: Coded Allergies: No Known Allergies (Unverified , 09/27/18) Subjective all noted Objective Last 24 Hour Vital Signs Date Time Temp Pulse Resp B/P (MAP) Pulse Ox O2 Delivery O2 Flow Rate FiO2 12/11/18 06:00 124 24 107/42 (63) 98 12/11/18 05:47 114 103/69 12/11/18 05:00 106 22 100/42 (61) 98 12/11/18 04:00 124 12/11/18 04:00 98.0 122 16 103/42 (62) 98 12/11/18 03:00 120 18 120/40 (66) 98 12/11/18 02:00 115 19 103/42 (62) 98 12/11/18 01:00 106 22 93/42 (59) 98 12/11/18 00:17 113 116/36 12/11/18 00:00 110 12/11/18 00:00 Nasal Cannula 2.0 12/11/18 00:00 98.0 124 22 116/66 (83) 98 12/10/18 23:00 125 22 113/64 (80) 98 12/10/18 22:00 120 22 101/58 (72) 98 12/10/18 21:00 122 20 113/56 (75) 98 12/10/18 20:36 97 Room Air 21 12/10/18 20:00 98.6 120 21 113/57 (75) 98 12/10/18 20:00 Nasal Cannula 2.0 12/10/18 20:00 120 12/10/18 19:00 121 20 93/56 (68) 98 12/10/18 18:00 121 21 93/56 (68) 100 12/10/18 18:00 118 93/56 12/10/18 17:00 114 18 97/62 (74) 100 12/10/18 16:00 110 12/10/18 16:00 97.9 115 19 98/55 (69) 100 12/10/18 15:00 117 15 85/61 (69) 100 12/10/18 14:00 124 19 101/58 (72) 100 12/10/18 13:37 131 106/61 12/10/18 13:00 132 16 106/61 (76) 100 12/10/18 12:00 98.8 133 13 106/61 (76) 100 12/10/18 12:00 131 12/10/18 11:20 Nasal Cannula 2.0 12/10/18 11:00 101.3 142 20 94/55 (68) 99 12/10/18 11:00 142 12/10/18 10:45 98.6 12/10/18 10:33 98.6 12/10/18 10:20 98.6 180 30 129/109 (116) 12/10/18 10:19 190 129/109 Intake and Output 12/10/18 12/11/18 19:00 07:00 Intake Total 1155 ml 55 ml Output Total 600 ml 476 ml Balance 555 ml -421 ml Intake Oral 0 ml 0 ml IV Total 1155 ml 55 ml Output Urine Total 600 ml 476 ml # Bowel Movements 1 2 Microbiology Date/Time Source Procedure Growth Status 12/10/18 01:30 Urine,Clean Catch Urine Culture - Preliminary Gram Negative Bacillus 1 Resulted 12/10/18 03:24 Rectum Received Current Medications Medications (Trade) Dose Ordered Sig/Chace Route PRN Reason Start Time Stop Time Status Last Admin Dose Admin Acetaminophen (Tylenol) 650 mg Q4H PRN ORAL Mild Pain/Temp > 100.5 12/10/18 13:00 01/09/19 12:59 Acetaminophen/ Hydrocodone Bitart ([place] 5/325) 1 tab Q4H PRN ORAL Severe Pain (Pain Scale 7-10) 12/10/18 19:00 12/17/18 18:59 12/11/18 08:26 Cefepime HCl 1 gm/ Dextrose 55 ml @ 110 mls/hr EVERY 12 HOURS IVPB 12/10/18 21:00 12/17/18 08:59 12/10/18 21:00 Chlorhexidine Gluconate (Susannah-Hex 2%) 1 applic DAILY@2000 TOPIC 12/10/18 20:00 01/09/19 19:59 12/10/18 20:00 Dextrose (Dextrose 50%) 25 ml Q30M PRN IV Hypoglycemia 12/10/18 12:30 01/09/19 06:29 Dextrose (Dextrose 50%) 50 ml Q30M PRN IV Hypoglycemia 12/10/18 12:30 01/09/19 06:29 Diltiazem HCl (Cardizem) 60 mg EVERY 6 HOURS ORAL 12/10/18 18:00 01/09/19 17:59 12/11/18 05:47 Divalproex Sodium (Depakote) 500 mg Q12HR ORAL 12/10/18 21:00 01/09/19 20:59 12/11/18 08:24 Finasteride (Proscar) 5 mg DAILY@2100 ORAL 12/10/18 21:00 01/09/19 20:59 12/10/18 21:00 Insulin Aspart (NovoLOG) BEFORE MEALS AND HS SUBQ 12/10/18 16:30 01/09/19 06:29 12/10/18 21:00 Lamotrigine (LaMICtal) 50 mg DAILY ORAL 12/11/18 09:00 01/09/19 08:59 12/11/18 08:22 Metronidazole 100 ml @ 100 mls/hr Q8HR@0000,0800,1600 IVPB 12/10/18 16:00 12/17/18 07:59 12/11/18 08:21 Morphine Sulfate (Morphine Sulfate) 4 mg Q6H PRN IVP Severe Pain (Pain Scale 7-10) 12/10/18 13:00 12/17/18 12:59 12/10/18 22:44 Sitagliptin Phosphate (Januvia) 50 mg DAILY ORAL 12/11/18 09:00 01/09/19 08:59 12/11/18 08:22 Tamsulosin HCl (Flomax) 0.4 mg BEDTIME ORAL 12/10/18 21:00 01/09/19 20:59 12/10/18 21:00 Laboratory Tests 12/10/18 12:15: Lactic Acid Level 6.00H 12/10/18 14:55: Lactic Acid Level 4.90H 12/10/18 17:58: Lactic Acid Level 3.20H 12/11/18 00:10: Lactic Acid Level 1.30 12/11/18 06:00: White Blood Count 18.7H, Red Blood Count 3.26L, Hemoglobin 9.8L, Hematocrit 30.2L, Mean Corpuscular Volume 93, Mean Corpuscular Hemoglobin 30.1, Mean Corpuscular Hemoglobin Concent 32.5, Red Cell Distribution Width 15.3H, Platelet Count 276, Mean Platelet Volume 6.2L, Neutrophils (%) (Auto) , Lymphocytes (%) (Auto) , Monocytes (%) (Auto) , Eosinophils (%) (Auto) , Basophils (%) (Auto) , Differential Total Cells Counted 100, Neutrophils % ( Manual) 91H, Lymphocytes % (Manual) 5L, Monocytes % (Manual) 4, Eosinophils % ( Manual) 0, Basophils % (Manual) 0, Band Neutrophils 0, Platelet Estimate Adequate, Platelet Morphology Normal, Anisocytosis 1+, Sodium Level 140, Potassium Level 3.7, Chloride Level 103, Carbon Dioxide Level 29, Anion Gap 8, Blood Urea Nitrogen 11, Creatinine 0.4L, Estimat Glomerular Filtration Rate > 60 , Glucose Level 96#, Lactic Acid Level 1.30, Calcium Level 8.3L, Phosphorus Level 3.0, Magnesium Level 1.7L, Total Bilirubin 0.3, Aspartate Amino Transf ( AST/SGOT) 25, Alanine Aminotransferase (ALT/SGPT) 22, Alkaline Phosphatase 92, Troponin I 0.129H, Total Protein 5.3L, Albumin 2.1L, Globulin 3.2, Albumin/ Globulin Ratio 0.7L Height (Feet): 5 Height (Inches): 10.00 Weight (Pounds): 123 Objective exam stable, urine felipe, old blood at [facility],Isael Licona MD Dec 11, 2018 10:01
[2018-12-11] MEDS: Cefepime HCl 1 GM in D5W 55 ML IVPB SCH ×2 (10:10→21:03)
--- NOTE | 2018-12-11 10:12 | NUR ---
NURSE NOTES: Patient turned and repositioned.HOB elevated to prevent aspiration.Kept clean dry and comfortable.Will continue to monitor, call light within easy raech.
--- NOTE | 2018-12-11 10:45 | Pulmonolgy Critical Care Note ---
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, 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 Discussed with: nurses, consultants, 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 - Objective Last 24 Hour Vital Signs Date Time Temp Pulse Resp B/P (MAP) Pulse Ox O2 Delivery O2 Flow Rate FiO2 12/11/18 09:00 118 19 97/54 (68) 99 12/11/18 08:00 124 12/11/18 08:00 113 27 91/54 (66) 99 12/11/18 07:00 98.2 121 24 100/50 (67) 99 12/11/18 06:00 124 24 107/42 (63) 98 12/11/18 05:47 114 103/69 12/11/18 05:00 106 22 100/42 (61) 98 12/11/18 04:00 124 12/11/18 04:00 98.0 122 16 103/42 (62) 98 12/11/18 03:00 120 18 120/40 (66) 98 12/11/18 02:00 115 19 103/42 (62) 98 12/11/18 01:00 106 22 93/42 (59) 98 12/11/18 00:17 113 116/36 12/11/18 00:00 110 12/11/18 00:00 Nasal Cannula 2.0 12/11/18 00:00 98.0 124 22 116/66 (83) 98 12/10/18 23:00 125 22 113/64 (80) 98 12/10/18 22:00 120 22 101/58 (72) 98 12/10/18 21:00 122 20 113/56 (75) 98 12/10/18 20:36 97 Room Air 21 12/10/18 20:00 98.6 120 21 113/57 (75) 98 12/10/18 20:00 Nasal Cannula 2.0 12/10/18 20:00 120 12/10/18 19:00 121 20 93/56 (68) 98 12/10/18 18:00 121 21 93/56 (68) 100 12/10/18 18:00 118 93/56 12/10/18 17:00 114 18 97/62 (74) 100 12/10/18 16:00 110 12/10/18 16:00 97.9 115 19 98/55 (69) 100 12/10/18 15:00 117 15 85/61 (69) 100 12/10/18 14:00 124 19 101/58 (72) 100 12/10/18 13:37 131 106/61 12/10/18 13:00 132 16 106/61 (76) 100 12/10/18 12:00 98.8 133 13 106/61 (76) 100 12/10/18 12:00 131 12/10/18 11:20 Nasal Cannula 2.0 12/10/18 11:00 101.3 142 20 94/55 (68) 99 12/10/18 11:00 142 12/10/18 10:45 98.6 Status: awake Condition: improving HEENT: atraumatic Lungs: clear Heart: HR/BP stable Abdomen: soft, active bowel sounds Extremities: edema Decubiti: stage Micro: Microbiology Date/Time Source Procedure Growth Status 12/10/18 01:30 Urine,Clean Catch Urine Culture - Preliminary Gram Negative Bacillus 1 Resulted 12/10/18 03:24 Rectum Received Accucheck: 110 Critical Care - Subjective ROS Limited/Unobtainable: Yes Interval Events: heart rate is controlled Condition: critical FI02: 21 I&O: Intake and Output 12/10/18 12/11/18 19:00 07:00 Intake Total 1155 ml 55 ml Output Total 600 ml 476 ml Balance 555 ml -421 ml Intake Oral 0 ml 0 ml IV Total 1155 ml 55 ml Output Urine Total 600 ml 476 ml # Bowel Movements 1 2 CXR: no change Labs: Laboratory Tests Test 12/10/18 12:15 12/10/18 14:55 12/10/18 17:58 12/11/18 00:10 Lactic Acid Level 6.00 mmol/L (0.4-2.0) H 4.90 mmol/L (0.66-2.22) H 3.20 mmol/L (0.4-2.0) H 1.30 mmol/L (0.4-2.0) Test 12/11/18 06:00 White Blood Count 18.7 K/UL (4.8-10.8) H Red Blood Count 3.26 M/UL (4.70-6.10) L Hemoglobin 9.8 G/DL (14.2-18.0) L Hematocrit 30.2 % (42.0-52.0) L Mean Corpuscular Volume 93 FL (80-99) Mean Corpuscular Hemoglobin 30.1 PG (27.0-31.0) Mean Corpuscular Hemoglobin Concent 32.5 G/DL (32.0-36.0) Red Cell Distribution Width 15.3 % (11.6-14.8) H Platelet Count 276 K/UL (150-450) Mean Platelet Volume 6.2 FL (6.5-10.1) L Neutrophils (%) (Auto) % (45.0-75.0) Lymphocytes (%) (Auto) % (20.0-45.0) Monocytes (%) (Auto) % (1.0-10.0) Eosinophils (%) (Auto) % (0.0-3.0) Basophils (%) (Auto) % (0.0-2.0) Differential Total Cells Counted 100 Neutrophils % (Manual) 91 % (45-75) H Lymphocytes % (Manual) 5 % (20-45) L Monocytes % (Manual) 4 % (1-10) Eosinophils % (Manual) 0 % (0-3) Basophils % (Manual) 0 % (0-2) Band Neutrophils 0 % (0-8) Platelet Estimate Adequate Platelet Morphology Normal Anisocytosis 1+ Sodium Level 140 MMOL/L (136-145) Potassium Level 3.7 MMOL/L (3.5-5.1) Chloride Level 103 MMOL/L (98-107) Carbon Dioxide Level 29 MMOL/L (21-32) Anion Gap 8 mmol/L (5-15) Blood Urea Nitrogen 11 mg/dL (7-18) Creatinine 0.4 MG/DL (0.55-1.30) L Estimat Glomerular Filtration Rate > 60 mL/min (>60) Glucose Level 96 MG/DL (74-106) # Lactic Acid Level 1.30 mmol/L (0.4-2.0) Calcium Level 8.3 MG/DL (8.5-10.1) L Phosphorus Level 3.0 MG/DL (2.5-4.9) Magnesium Level 1.7 MG/DL (1.8-2.4) L Total Bilirubin 0.3 MG/DL (0.2-1.0) Aspartate Amino Transf (AST/SGOT) 25 U/L (15-37) Alanine Aminotransferase (ALT/SGPT) 22 U/L (12-78) Alkaline Phosphatase 92 U/L (46-116) Troponin I 0.129 ng/mL (0.000-0.056) Total Protein 5.3 G/DL (6.4-8.2) L Albumin 2.1 G/DL (3.4-5.0) L Globulin 3.2 g/dL Albumin/Globulin Ratio 0.7 (1.0-2.7) L Raul Feng MD Dec 11, 2018 10:45
--- NOTE | 2018-12-11 11:29 | Consultation ---
History of Present Illness General Date patient seen: Dec 11, 2018 Chief Complaint: Fever Reason for Consultation: UTI Present Illness HPI Mr. 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 He was d/c to a SNF but is now returning with fever and hematuria. History obtained form the chart as he has aphasia. In the ED he was afebrile ( Had a single high temp of 101.3) but WBCs were elevated a 21. He was started on Cefepime and Flagyl. Leukocytosis is now improving. He was admitted to the ICU with hypotension. ID was consulted for fever and leukocytosis PMHx/PSHx SocHx Lives in a cardiac rehab detention facility No E/T/D FamHx Unable to Allergies: Coded Allergies: No Known Allergies (Unverified , 09/27/18) Medication History Scheduled Apixaban (Eliquis), 5 MG PO BID, (Reported) Atorvastatin (Lipitor), 80 MG ORAL BEDTIME, (Reported) Carvedilol (Coreg), 25 MG ORAL EVERY 12 HOURS Ciprofloxacin (Cipro), 750 MG GT Q12HR, (Reported) Dexamethasone* (Dexamethasone*), 4 MG PO BID, (Reported) Divalproex Sodium (Divalproex Sodium), 500 MG PO BID, (Reported) Ergocalciferol (Vitamin D2)* (Vitamin D*), 50,000 UNIT ORAL ONCE A WEEK, ( Reported) Finasteride (Finasteride), 5 MG ORAL DAILY@2100 Heparin Sod (Porcine) (Heparin Sodium*), 5,000 UNITS SUBQ EVERY 12 HOURS, ( Reported) Lacosamide (Vimpat), 200 MG PO BID, (Reported) Lamotrigine* (Lamictal*), 50 MG ORAL DAILY Losartan Potassium* (Losartan Potassium*), 25 MG ORAL DAILY, (Reported) Metformin Hcl (Glucophage), 1,000 MG ORAL BID, (Reported) Metoprolol Tartrate* (Metoprolol Tartrate*), 25 MG ORAL EVERY 12 HOURS, ( Reported) Midodrine (Midodrine HCl), 10 MG GT THREE TIMES A DAY, (Reported) Perampanel (Fycompa), 4 MG PO DAILY, (Reported) Poloxamer (Poloxamer 407), 2,500 GM TOPIC Q3days, (Reported) Quetiapine Fumarate* (Seroquel*), 25 MG ORAL Q12HR Ranitidine Hcl* (Zantac*), 150 MG ORAL DAILY, (Reported) Sitagliptin (Januvia), 50 MG ORAL DAILY Tamsulosin HCl (Flomax), 0.4 MG ORAL BEDTIME Temozolomide (Temozolomide), 5 MG PO DAILY, (Reported) Scheduled PRN Acetaminophen* (Acetaminophen 325MG Tablet*), 650 MG ORAL Q6H PRN for For Pain, (Reported) Insulin Aspart (Novolog Flexpen), SUBQ Q6HR PRN for Per rx protocol, (Reported) Miscellaneous Medications Insulin Lispro (Humalog), 0 SUBQ, (Reported) Patient History Healthcare decision maker Resuscitation status Full Code Advanced Directive on File Review of Systems ROS Narrative Unable to obtain as patient aphasic Physical Exam Last 24 Hour Vital Signs Date Time Temp Pulse Resp B/P (MAP) Pulse Ox O2 Delivery O2 Flow Rate FiO2 12/11/18 09:00 118 19 97/54 (68) 99 12/11/18 08:56 98.2 12/11/18 08:00 124 12/11/18 08:00 113 27 91/54 (66) 99 12/11/18 07:00 98.2 121 24 100/50 (67) 99 12/11/18 06:00 124 24 107/42 (63) 98 12/11/18 05:47 114 103/69 12/11/18 05:00 106 22 100/42 (61) 98 12/11/18 04:00 124 12/11/18 04:00 98.0 122 16 103/42 (62) 98 12/11/18 03:00 120 18 120/40 (66) 98 12/11/18 02:00 115 19 103/42 (62) 98 12/11/18 01:00 106 22 93/42 (59) 98 12/11/18 00:17 113 116/36 12/11/18 00:00 110 12/11/18 00:00 Nasal Cannula 2.0 12/11/18 00:00 98.0 124 22 116/66 (83) 98 12/10/18 23:00 125 22 113/64 (80) 98 12/10/18 22:00 120 22 101/58 (72) 98 12/10/18 21:00 122 20 113/56 (75) 98 12/10/18 20:36 97 Room Air 21 12/10/18 20:00 98.6 120 21 113/57 (75) 98 12/10/18 20:00 Nasal Cannula 2.0 12/10/18 20:00 120 12/10/18 19:00 121 20 93/56 (68) 98 12/10/18 18:00 121 21 93/56 (68) 100 12/10/18 18:00 118 93/56 12/10/18 17:00 114 18 97/62 (74) 100 12/10/18 16:00 110 12/10/18 16:00 97.9 115 19 98/55 (69) 100 12/10/18 15:00 117 15 85/61 (69) 100 12/10/18 14:00 124 19 101/58 (72) 100 12/10/18 13:37 131 106/61 12/10/18 13:00 132 16 106/61 (76) 100 12/10/18 12:00 98.8 133 13 106/61 (76) 100 12/10/18 12:00 131 Intake and Output 12/10/18 12/11/18 19:00 07:00 Intake Total 1155 ml 55 ml Output Total 600 ml 476 ml Balance 555 ml -421 ml Intake Oral 0 ml 0 ml IV Total 1155 ml 55 ml Output Urine Total 600 ml 476 ml # Bowel Movements 1 2 Laboratory Tests Test 12/10/18 12:15 12/10/18 14:55 12/10/18 17:58 12/11/18 00:10 Lactic Acid Level 6.00 mmol/L (0.4-2.0) H 4.90 mmol/L (0.66-2.22) H 3.20 mmol/L (0.4-2.0) H 1.30 mmol/L (0.4-2.0) Test 12/11/18 06:00 White Blood Count 18.7 K/UL (4.8-10.8) H Red Blood Count 3.26 M/UL (4.70-6.10) L Hemoglobin 9.8 G/DL (14.2-18.0) L Hematocrit 30.2 % (42.0-52.0) L Mean Corpuscular Volume 93 FL (80-99) Mean Corpuscular Hemoglobin 30.1 PG (27.0-31.0) Mean Corpuscular Hemoglobin Concent 32.5 G/DL (32.0-36.0) Red Cell Distribution Width 15.3 % (11.6-14.8) H Platelet Count 276 K/UL (150-450) Mean Platelet Volume 6.2 FL (6.5-10.1) L Neutrophils (%) (Auto) % (45.0-75.0) Lymphocytes (%) (Auto) % (20.0-45.0) Monocytes (%) (Auto) % (1.0-10.0) Eosinophils (%) (Auto) % (0.0-3.0) Basophils (%) (Auto) % (0.0-2.0) Differential Total Cells Counted 100 Neutrophils % (Manual) 91 % (45-75) H Lymphocytes % (Manual) 5 % (20-45) L Monocytes % (Manual) 4 % (1-10) Eosinophils % (Manual) 0 % (0-3) Basophils % (Manual) 0 % (0-2) Band Neutrophils 0 % (0-8) Platelet Estimate Adequate Platelet Morphology Normal Anisocytosis 1+ Sodium Level 140 MMOL/L (136-145) Potassium Level 3.7 MMOL/L (3.5-5.1) Chloride Level 103 MMOL/L (98-107) Carbon Dioxide Level 29 MMOL/L (21-32) Anion Gap 8 mmol/L (5-15) Blood Urea Nitrogen 11 mg/dL (7-18) Creatinine 0.4 MG/DL (0.55-1.30) L Estimat Glomerular Filtration Rate > 60 mL/min (>60) Glucose Level 96 MG/DL (74-106) # Lactic Acid Level 1.30 mmol/L (0.4-2.0) Calcium Level 8.3 MG/DL (8.5-10.1) L Phosphorus Level 3.0 MG/DL (2.5-4.9) Magnesium Level 1.7 MG/DL (1.8-2.4) L Total Bilirubin 0.3 MG/DL (0.2-1.0) Aspartate Amino Transf (AST/SGOT) 25 U/L (15-37) Alanine Aminotransferase (ALT/SGPT) 22 U/L (12-78) Alkaline Phosphatase 92 U/L (46-116) Troponin I 0.129 ng/mL (0.000-0.056) Total Protein 5.3 G/DL (6.4-8.2) L Albumin 2.1 G/DL (3.4-5.0) L Globulin 3.2 g/dL Albumin/Globulin Ratio 0.7 (1.0-2.7) L Height (Feet): 5 Height (Inches): 10.00 Weight (Pounds): 123 Medications Current Medications Medications (Trade) Dose Ordered Sig/Chace Route PRN Reason Start Time Stop Time Status Last Admin Dose Admin Acetaminophen (Tylenol) 650 mg Q4H PRN ORAL Mild Pain/Temp > 100.5 12/10/18 13:00 01/09/19 12:59 Acetaminophen/ Hydrocodone Bitart ([place] 5/325) 1 tab Q4H PRN ORAL Severe Pain (Pain Scale 7-10) 12/10/18 19:00 12/17/18 18:59 12/11/18 08:26 Cefepime HCl 1 gm/ Dextrose 55 ml @ 110 mls/hr EVERY 12 HOURS IVPB 12/10/18 21:00 12/17/18 08:59 12/11/18 10:10 Chlorhexidine Gluconate (Susannah-Hex 2%) 1 applic DAILY@2000 TOPIC 12/10/18 20:00 01/09/19 19:59 12/10/18 20:00 Dextrose (Dextrose 50%) 25 ml Q30M PRN IV Hypoglycemia 12/10/18 12:30 01/09/19 06:29 Dextrose (Dextrose 50%) 50 ml Q30M PRN IV Hypoglycemia 12/10/18 12:30 01/09/19 06:29 Diltiazem HCl (Cardizem) 60 mg EVERY 6 HOURS ORAL 12/10/18 18:00 01/09/19 17:59 12/11/18 05:47 Divalproex Sodium (Depakote) 500 mg Q12HR ORAL 12/10/18 21:00 01/09/19 20:59 12/11/18 08:24 Finasteride (Proscar) 5 mg DAILY@2100 ORAL 12/10/18 21:00 01/09/19 20:59 12/10/18 21:00 Insulin Aspart (NovoLOG) BEFORE MEALS AND HS SUBQ 12/10/18 16:30 01/09/19 06:29 12/10/18 21:00 Lamotrigine (LaMICtal) 50 mg DAILY ORAL 12/11/18 09:00 01/09/19 08:59 12/11/18 08:22 Metronidazole 100 ml @ 100 mls/hr Q8HR@0000,0800,1600 IVPB 12/10/18 16:00 12/17/18 07:59 12/11/18 08:21 Morphine Sulfate (Morphine Sulfate) 4 mg Q6H PRN IVP Severe Pain (Pain Scale 7-10) 12/10/18 13:00 12/17/18 12:59 12/10/18 22:44 Sitagliptin Phosphate (Januvia) 50 mg DAILY ORAL 12/11/18 09:00 01/09/19 08:59 12/11/18 08:22 Tamsulosin HCl (Flomax) 0.4 mg BEDTIME ORAL 12/10/18 21:00 01/09/19 20:59 12/10/18 21:00 Objective Narrative Gen: NAD on NC HEENT: NCAT, MMM, EOMI, PERRL, No Oral lesion, no scleral icterus NECK: full range of motion, supple, no meningismus, No LAD, No JVD LUNGS: CTAB, No W/C, No Accessory muscle use CARDS: RRR, S1, S2, No M/R/G, ABD: Soft, NT, ND, No R/G, + BS, No HSM, No Masses, PEG ( No e/p) : Deferred Ext: C/C/E, Pulses 2+ B/L (DP, Rad): NEURO: A/O x 1, Strength and Sensation Grossly intact PSYCH: Normal mood and affect SKIN: Warm/dry, No rashes Assessment/Plan Assessment/Plan: 68 yo male who was recently admitted 11/12/18 - 11/17/18 with PNA, UTI and sacral OM. Now returing with Fever and hematuria Sepsis Likely Secondary to UTI UCx 12/10/18 - GNR UCx 11/10/18 - P.a. 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 No contrast enhancement to suggest recurrent tumor is evident currently. There is evidence of old peripheral hemorrhage, presumably related to the prior surgery. 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 Negative for acute intracranial bleed, mass effect, infarct, or contrast enhancing lesion. 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 HTN HLD BPH Dm2 s/p appendectomy s/p tonsillectomy CAD seizure disorder SNF resident sacral decubitus ulcer, FTT s/p PEG 11/05/18 S/P Peg Plan: - Continue Cefepime #1 and flagyl #1 - pending Cx - f/u cultures - Monitor CBC and Temps - /10 S/P Meropenem #6 to PO Cipro for PsA UTI and PNA (abx d # for PsA sacral OM) - 6/ S/P Vancomycin #14 -11/12 SP Cefepime #2 -11/10 SP IV Vancomycin #32, Zosyn #23 - 10/19 Sp Ceftriaxone #8 -10/12/18 SP Cefepime #3 -wound care per surgical team -PEG care -aspiration precautions Thank you for this consult. We will continue to follow the patient during this hospitalization. Ramon Blanca MD Dec 11, 2018 11:29
--- NOTE | 2018-12-11 12:04 | NUR ---
NURSE NOTES: ADLS done, turned and repositioned.Kept clean and dry.Mouth care provided.Bilateral soft wrist restraints release with no skin impairment.
--- NOTE | 2018-12-11 14:10 | NUR ---
NURSE NOTES: Patient turned and repositioned.Spoke with Anais from Dr Anderson office and made aware of blood culture result.Kept clean dry and comfortable.Will continue to monitor.Call light within easy reach.
--- NOTE | 2018-12-11 14:50 | NUR ---
NURSE NOTES: Left message to Dr Blanca for blood culture result.Awaiting call back
--- NOTE | 2018-12-11 15:16 | NUR ---
NURSE NOTES: Seen by Dr Braun,will follow up with new order
--- NOTE | 2018-12-11 15:29 | Internal Med Progress Note ---
Subjective Physician Name Camacho Braun Attending Physician Camacho Braun MD Current Medications Medications (Trade) Dose Ordered Sig/Chace Route PRN Reason Start Time Stop Time Status Last Admin Dose Admin Acetaminophen (Tylenol) 650 mg Q4H PRN ORAL Mild Pain/Temp > 100.5 12/10/18 13:00 01/09/19 12:59 Acetaminophen/ Hydrocodone Bitart ([place] 5/325) 1 tab Q4H PRN ORAL Severe Pain (Pain Scale 7-10) 12/10/18 19:00 12/17/18 18:59 12/11/18 08:26 Cefepime HCl 1 gm/ Dextrose 55 ml @ 110 mls/hr EVERY 12 HOURS IVPB 12/10/18 21:00 12/17/18 08:59 12/11/18 10:10 Chlorhexidine Gluconate (Susannah-Hex 2%) 1 applic DAILY@2000 TOPIC 12/10/18 20:00 01/09/19 19:59 12/10/18 20:00 Dextrose (Dextrose 50%) 25 ml Q30M PRN IV Hypoglycemia 12/10/18 12:30 01/09/19 06:29 Dextrose (Dextrose 50%) 50 ml Q30M PRN IV Hypoglycemia 12/10/18 12:30 01/09/19 06:29 Diltiazem HCl (Cardizem) 60 mg EVERY 6 HOURS ORAL 12/10/18 18:00 01/09/19 17:59 12/11/18 12:00 Divalproex Sodium (Depakote) 500 mg Q12HR ORAL 12/10/18 21:00 01/09/19 20:59 12/11/18 08:24 Finasteride (Proscar) 5 mg DAILY@2100 ORAL 12/10/18 21:00 01/09/19 20:59 12/10/18 21:00 Insulin Aspart (NovoLOG) BEFORE MEALS AND HS SUBQ 12/10/18 16:30 01/09/19 06:29 12/10/18 21:00 Lamotrigine (LaMICtal) 50 mg DAILY ORAL 12/11/18 09:00 01/09/19 08:59 12/11/18 08:22 Metronidazole 100 ml @ 100 mls/hr Q8HR@0000,0800,1600 IVPB 12/10/18 16:00 12/17/18 07:59 12/11/18 08:21 Morphine Sulfate (Morphine Sulfate) 4 mg Q6H PRN IVP Severe Pain (Pain Scale 7-10) 12/10/18 13:00 12/17/18 12:59 12/10/18 22:44 Sitagliptin Phosphate (Januvia) 50 mg DAILY ORAL 12/11/18 09:00 01/09/19 08:59 12/11/18 08:22 Tamsulosin HCl (Flomax) 0.4 mg BEDTIME ORAL 12/10/18 21:00 01/09/19 20:59 12/10/18 21:00 Allergies: Coded Allergies: No Known Allergies (Unverified , 09/27/18) Subjective In ICU, awake, alert, responsive, denies any headache, no chest pain or shortness of breath, no hematuria. Friends at the bedside. Objective Last Vital Signs Date Time Temp Pulse Resp B/P (MAP) Pulse Ox O2 Delivery O2 Flow Rate FiO2 12/11/18 14:00 92 19 91/53 (66) 99 12/11/18 13:00 98.0 12/11/18 00:00 Nasal Cannula 2.0 12/10/18 20:36 21 Laboratory Tests Test 12/10/18 17:58 12/11/18 00:10 12/11/18 06:00 Lactic Acid Level 3.20 mmol/L (0.4-2.0) H 1.30 mmol/L (0.4-2.0) 1.30 mmol/L (0.4-2.0) White Blood Count 18.7 K/UL (4.8-10.8) H Red Blood Count 3.26 M/UL (4.70-6.10) L Hemoglobin 9.8 G/DL (14.2-18.0) L Hematocrit 30.2 % (42.0-52.0) L Mean Corpuscular Volume 93 FL (80-99) Mean Corpuscular Hemoglobin 30.1 PG (27.0-31.0) Mean Corpuscular Hemoglobin Concent 32.5 G/DL (32.0-36.0) Red Cell Distribution Width 15.3 % (11.6-14.8) H Platelet Count 276 K/UL (150-450) Mean Platelet Volume 6.2 FL (6.5-10.1) L Neutrophils (%) (Auto) % (45.0-75.0) Lymphocytes (%) (Auto) % (20.0-45.0) Monocytes (%) (Auto) % (1.0-10.0) Eosinophils (%) (Auto) % (0.0-3.0) Basophils (%) (Auto) % (0.0-2.0) Differential Total Cells Counted 100 Neutrophils % (Manual) 91 % (45-75) H Lymphocytes % (Manual) 5 % (20-45) L Monocytes % (Manual) 4 % (1-10) Eosinophils % (Manual) 0 % (0-3) Basophils % (Manual) 0 % (0-2) Band Neutrophils 0 % (0-8) Platelet Estimate Adequate Platelet Morphology Normal Anisocytosis 1+ Sodium Level 140 MMOL/L (136-145) Potassium Level 3.7 MMOL/L (3.5-5.1) Chloride Level 103 MMOL/L (98-107) Carbon Dioxide Level 29 MMOL/L (21-32) Anion Gap 8 mmol/L (5-15) Blood Urea Nitrogen 11 mg/dL (7-18) Creatinine 0.4 MG/DL (0.55-1.30) L Estimat Glomerular Filtration Rate > 60 mL/min (>60) Glucose Level 96 MG/DL (74-106) # Calcium Level 8.3 MG/DL (8.5-10.1) L Phosphorus Level 3.0 MG/DL (2.5-4.9) Magnesium Level 1.7 MG/DL (1.8-2.4) L Total Bilirubin 0.3 MG/DL (0.2-1.0) Aspartate Amino Transf (AST/SGOT) 25 U/L (15-37) Alanine Aminotransferase (ALT/SGPT) 22 U/L (12-78) Alkaline Phosphatase 92 U/L (46-116) Troponin I 0.129 ng/mL (0.000-0.056) Total Protein 5.3 G/DL (6.4-8.2) L Albumin 2.1 G/DL (3.4-5.0) L Globulin 3.2 g/dL Albumin/Globulin Ratio 0.7 (1.0-2.7) L Microbiology Date/Time Source Procedure Growth Status 12/10/18 02:45 Blood Blood Culture - Preliminary Resulted 12/10/18 02:30 Blood Blood Culture - Preliminary Resulted 12/10/18 01:30 Urine,Clean Catch Urine Culture - Preliminary Gram Negative Bacillus 1 Resulted 12/10/18 03:24 Rectum Received Intake and Output 12/10/18 12/11/18 18:59 06:59 Intake Total 1055 ml 155 ml Output Total 550 ml 526 ml Balance 505 ml -371 ml Intake Oral 0 ml 0 ml IV Total 1055 ml 155 ml Output Urine Total 550 ml 526 ml # Bowel Movements 1 2 Objective General: No acute distress, awake and alert HEENT: NCAT, sclera anicteric, PERRL, EOMI. Neck: Supple, no significant jugular venous distention, Lungs: Fair inspiratory effort, clear to auscultation bilaterally, no Wheeze or Rales. Heart: Regular rate and rhythm, normal S1/S2, no murmur. Abdomen: soft, nontender, nondistended. Normoactive bowel sounds, PEG site intact. : Mota catheter without any blood, yellow urine. Extremities: No Cyanosis , clubbing or edema. Neuro: A&O x 3, Able to move all extremities spontaneously. Skin: warm, no rash. 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 Seizure disorder. 3. Diabetes type 2. 4. History of cerebrovascular accident. 5. Right hemiparesis. 6. Hypertension. 7. Coronary artery disease. 8. Expressive aphasia. 9. Debridement of sacral decubitus ulcer on 10/13/2018 at [facility], [place]. 10. PEG placement on 11/05/2018 at [facility], [place]. 11. Hematuria. 12. Sepsis secondary to gram-negative bacilli urinary tract infection. Plan: Transferred from ICU to [facility]. Follow-up with the urine culture. Monitor laboratory. Start DVT prophylaxis with heparin subcu every 8 hours. Antibiotic: Cefepime IV. F/U with ID recommendation. Restart the tube feeding in conjunction to oral feeding. Camacho Braun MD Dec 11, 2018 15:29
--- NOTE | 2018-12-11 15:44 | Consultation ---
History of Present Illness General Date patient seen: Dec 11, 2018 Chief Complaint: Fever Present Illness HPI 68 yo male with multiple medical comorbidities such as prior CVA w/ R hemiparesis and aphasia and R side hemiparesis, HTN, HLD, BPH, DM, sacral decubitus ulcer, CVA w/ expressive aphasia, failure to thrive with PEG, hx ofappendectomy, hx of tonsillectomy, CAD, seizure disorder, brain tumor( oligodendroglioma) s/p resection Jun 2018 and radiation therapy who presents with fever and hematuria. Patient well known to me from prior visits. has wounds requiring care. surgery called to evaluate and assist with care. patient seen, chart reviewed, patient examined Allergies: Coded Allergies: No Known Allergies (Unverified , 09/27/18) Medication History Scheduled Apixaban (Eliquis), 5 MG PO BID, (Reported) Atorvastatin (Lipitor), 80 MG ORAL BEDTIME, (Reported) Carvedilol (Coreg), 25 MG ORAL EVERY 12 HOURS Ciprofloxacin (Cipro), 750 MG GT Q12HR, (Reported) Dexamethasone* (Dexamethasone*), 4 MG PO BID, (Reported) Divalproex Sodium (Divalproex Sodium), 500 MG PO BID, (Reported) Ergocalciferol (Vitamin D2)* (Vitamin D*), 50,000 UNIT ORAL ONCE A WEEK, ( Reported) Finasteride (Finasteride), 5 MG ORAL DAILY@2100 Heparin Sod (Porcine) (Heparin Sodium*), 5,000 UNITS SUBQ EVERY 12 HOURS, ( Reported) Lacosamide (Vimpat), 200 MG PO BID, (Reported) Lamotrigine* (Lamictal*), 50 MG ORAL DAILY Losartan Potassium* (Losartan Potassium*), 25 MG ORAL DAILY, (Reported) Metformin Hcl (Glucophage), 1,000 MG ORAL BID, (Reported) Metoprolol Tartrate* (Metoprolol Tartrate*), 25 MG ORAL EVERY 12 HOURS, ( Reported) Midodrine (Midodrine HCl), 10 MG GT THREE TIMES A DAY, (Reported) Perampanel (Fycompa), 4 MG PO DAILY, (Reported) Poloxamer (Poloxamer 407), 2,500 GM TOPIC Q3days, (Reported) Quetiapine Fumarate* (Seroquel*), 25 MG ORAL Q12HR Ranitidine Hcl* (Zantac*), 150 MG ORAL DAILY, (Reported) Sitagliptin (Januvia), 50 MG ORAL DAILY Tamsulosin HCl (Flomax), 0.4 MG ORAL BEDTIME Temozolomide (Temozolomide), 5 MG PO DAILY, (Reported) Scheduled PRN Acetaminophen* (Acetaminophen 325MG Tablet*), 650 MG ORAL Q6H PRN for For Pain, (Reported) Insulin Aspart (Novolog Flexpen), SUBQ Q6HR PRN for Per rx protocol, (Reported) Miscellaneous Medications Insulin Lispro (Humalog), 0 SUBQ, (Reported) Patient History Limited by: medical condition History Provided By: Medical Record, PMD Healthcare decision maker Resuscitation status Full Code Advanced Directive on File Past Medical/Surgical History Past Medical/Surgical History: (1) Lactic acid increased (2) Diabetes mellitus (3) Hypertension (4) Dysphagia (5) Oligodendroglioma (6) Sacral decubitus ulcer (7) History of CVA (cerebrovascular accident) (8) Severe malnutrition (9) Anemia (10) PEG (percutaneous endoscopic gastrostomy) adjustment/replacement/removal (11) Sepsis (12) Acute encephalopathy (13) acute toxic encephalopathy (14) Uncontrolled seizures (15) Tachycardia (16) Acute respiratory failure (17) UTI (urinary tract infection) (18) Hematuria Review of Systems ROS Narrative cannot obtain given medical condition Physical Exam General Appearance: no apparent distress Lines, tubes and drains: other HEENT: other Neck: normal inspection, other Respiratory/Chest: no respiratory distress, decreased breath sounds Cardiovascular/Chest: irregularly irregular Abdomen: normal bowel sounds, no organomegaly, no mass, feeding tube Extremities: other Skin Exam: other Neurologic: unresponsiveness Last 24 Hour Vital Signs Date Time Temp Pulse Resp B/P (MAP) Pulse Ox O2 Delivery O2 Flow Rate FiO2 12/11/18 15:00 107 19 98/55 (69) 99 12/11/18 14:00 92 19 91/53 (66) 99 12/11/18 13:00 98.0 88 16 89/51 (64) 98 12/11/18 12:00 99 12/11/18 12:00 100 19 97/53 (68) 99 12/11/18 12:00 106 100/60 12/11/18 11:00 101 19 100/60 (73) 99 12/11/18 10:00 101 19 100/60 (73) 99 12/11/18 09:00 118 19 97/54 (68) 99 12/11/18 08:56 98.2 12/11/18 08:00 124 12/11/18 08:00 113 27 91/54 (66) 99 12/11/18 07:00 98.2 121 24 100/50 (67) 99 12/11/18 06:00 124 24 107/42 (63) 98 12/11/18 05:47 114 103/69 12/11/18 05:00 106 22 100/42 (61) 98 12/11/18 04:00 124 12/11/18 04:00 98.0 122 16 103/42 (62) 98 12/11/18 03:00 120 18 120/40 (66) 98 12/11/18 02:00 115 19 103/42 (62) 98 12/11/18 01:00 106 22 93/42 (59) 98 12/11/18 00:17 113 116/36 12/11/18 00:00 110 12/11/18 00:00 Nasal Cannula 2.0 12/11/18 00:00 98.0 124 22 116/66 (83) 98 12/10/18 23:00 125 22 113/64 (80) 98 12/10/18 22:00 120 22 101/58 (72) 98 12/10/18 21:00 122 20 113/56 (75) 98 12/10/18 20:36 97 Room Air 21 12/10/18 20:00 98.6 120 21 113/57 (75) 98 12/10/18 20:00 Nasal Cannula 2.0 12/10/18 20:00 120 12/10/18 19:00 121 20 93/56 (68) 98 12/10/18 18:00 121 21 93/56 (68) 100 12/10/18 18:00 118 93/56 12/10/18 17:00 114 18 97/62 (74) 100 12/10/18 16:00 110 12/10/18 16:00 97.9 115 19 98/55 (69) 100 Intake and Output 12/10/18 12/11/18 18:59 06:59 Intake Total 1055 ml 155 ml Output Total 550 ml 526 ml Balance 505 ml -371 ml Intake Oral 0 ml 0 ml IV Total 1055 ml 155 ml Output Urine Total 550 ml 526 ml # Bowel Movements 1 2 Laboratory Tests Test 12/10/18 17:58 12/11/18 00:10 12/11/18 06:00 Lactic Acid Level 3.20 mmol/L (0.4-2.0) H 1.30 mmol/L (0.4-2.0) 1.30 mmol/L (0.4-2.0) White Blood Count 18.7 K/UL (4.8-10.8) H Red Blood Count 3.26 M/UL (4.70-6.10) L Hemoglobin 9.8 G/DL (14.2-18.0) L Hematocrit 30.2 % (42.0-52.0) L Mean Corpuscular Volume 93 FL (80-99) Mean Corpuscular Hemoglobin 30.1 PG (27.0-31.0) Mean Corpuscular Hemoglobin Concent 32.5 G/DL (32.0-36.0) Red Cell Distribution Width 15.3 % (11.6-14.8) H Platelet Count 276 K/UL (150-450) Mean Platelet Volume 6.2 FL (6.5-10.1) L Neutrophils (%) (Auto) % (45.0-75.0) Lymphocytes (%) (Auto) % (20.0-45.0) Monocytes (%) (Auto) % (1.0-10.0) Eosinophils (%) (Auto) % (0.0-3.0) Basophils (%) (Auto) % (0.0-2.0) Differential Total Cells Counted 100 Neutrophils % (Manual) 91 % (45-75) H Lymphocytes % (Manual) 5 % (20-45) L Monocytes % (Manual) 4 % (1-10) Eosinophils % (Manual) 0 % (0-3) Basophils % (Manual) 0 % (0-2) Band Neutrophils 0 % (0-8) Platelet Estimate Adequate Platelet Morphology Normal Anisocytosis 1+ Sodium Level 140 MMOL/L (136-145) Potassium Level 3.7 MMOL/L (3.5-5.1) Chloride Level 103 MMOL/L (98-107) Carbon Dioxide Level 29 MMOL/L (21-32) Anion Gap 8 mmol/L (5-15) Blood Urea Nitrogen 11 mg/dL (7-18) Creatinine 0.4 MG/DL (0.55-1.30) L Estimat Glomerular Filtration Rate > 60 mL/min (>60) Glucose Level 96 MG/DL (74-106) # Calcium Level 8.3 MG/DL (8.5-10.1) L Phosphorus Level 3.0 MG/DL (2.5-4.9) Magnesium Level 1.7 MG/DL (1.8-2.4) L Total Bilirubin 0.3 MG/DL (0.2-1.0) Aspartate Amino Transf (AST/SGOT) 25 U/L (15-37) Alanine Aminotransferase (ALT/SGPT) 22 U/L (12-78) Alkaline Phosphatase 92 U/L (46-116) Troponin I 0.129 ng/mL (0.000-0.056) Total Protein 5.3 G/DL (6.4-8.2) L Albumin 2.1 G/DL (3.4-5.0) L Globulin 3.2 g/dL Albumin/Globulin Ratio 0.7 (1.0-2.7) L Height (Feet): 5 Height (Inches): 10.00 Weight (Pounds): 123 Medications Current Medications Medications (Trade) Dose Ordered Sig/Chace Route PRN Reason Start Time Stop Time Status Last Admin Dose Admin Acetaminophen (Tylenol) 650 mg Q4H PRN ORAL Mild Pain/Temp > 100.5 12/10/18 13:00 01/09/19 12:59 Acetaminophen/ Hydrocodone Bitart ([place] 5/325) 1 tab Q4H PRN ORAL Severe Pain (Pain Scale 7-10) 12/10/18 19:00 12/17/18 18:59 12/11/18 08:26 Cefepime HCl 1 gm/ Dextrose 55 ml @ 110 mls/hr EVERY 12 HOURS IVPB 12/10/18 21:00 12/17/18 08:59 12/11/18 10:10 Chlorhexidine Gluconate ([place]-Hex 2%) 1 applic DAILY@2000 TOPIC 12/10/18 20:00 01/09/19 19:59 12/10/18 20:00 Dextrose (Dextrose 50%) 25 ml Q30M PRN IV Hypoglycemia 12/10/18 12:30 01/09/19 06:29 Dextrose (Dextrose 50%) 50 ml Q30M PRN IV Hypoglycemia 12/10/18 12:30 01/09/19 06:29 Diltiazem HCl (Cardizem) 60 mg EVERY 6 HOURS ORAL 12/10/18 18:00 01/09/19 17:59 12/11/18 12:00 Divalproex Sodium (Depakote) 500 mg Q12HR ORAL 12/10/18 21:00 01/09/19 20:59 12/11/18 08:24 Finasteride (Proscar) 5 mg DAILY@2100 ORAL 12/10/18 21:00 01/09/19 20:59 12/10/18 21:00 Heparin Sodium (Porcine) (Heparin 5000 units/ml) 5,000 units EVERY 8 HOURS SUBQ 12/11/18 22:00 01/10/19 21:59 Insulin Aspart (NovoLOG) BEFORE MEALS AND HS SUBQ 12/10/18 16:30 01/09/19 06:29 12/10/18 21:00 Lamotrigine (LaMICtal) 50 mg DAILY ORAL 12/11/18 09:00 01/09/19 08:59 12/11/18 08:22 Metronidazole 100 ml @ 100 mls/hr Q8HR@0000,0800,1600 IVPB 12/10/18 16:00 12/17/18 07:59 12/11/18 08:21 Morphine Sulfate (Morphine Sulfate) 4 mg Q6H PRN IVP Severe Pain (Pain Scale 7-10) 12/10/18 13:00 12/17/18 12:59 12/10/18 22:44 Sitagliptin Phosphate (Januvia) 50 mg DAILY ORAL 12/11/18 09:00 01/09/19 08:59 12/11/18 08:22 Tamsulosin HCl (Flomax) 0.4 mg BEDTIME ORAL 12/10/18 21:00 01/09/19 20:59 12/10/18 21:00 Assessment/Plan Problem List: (1) Lactic acid increased ICD Codes: E87.2 - Acidosis SNOMED: 82779107 (2) Diabetes mellitus ICD Codes: E11.9 - Type 2 diabetes mellitus without complications SNOMED: 79416267 (3) Hypertension ICD Codes: I10 - Essential (primary) hypertension SNOMED: 25204586 (4) Dysphagia ICD Codes: R13.10 - Dysphagia, unspecified SNOMED: 15924680, 902259026 (5) Oligodendroglioma ICD Codes: C71.9 - Malignant neoplasm of brain, unspecified SNOMED: 22671393, 328600347 (6) Sacral decubitus ulcer Assessment & Plan: Pt presented on admission with full thickness sacral pressure injury with undermining and bone visible at base of wound.Base of wound 90% granular with an area of 10% loose slough noted at undermined area at 11-12o'clock. Wound is malodorous. Small amt. brown exudate noted. Dark brown borders noted. (L)8.5cm x (W)7cm x (D)1.9cm undermining 9-5 by 3.5cm @9o'clock. Bilat groin areas and scrotum erythematous. Non-blanchable erythema without fluctuance noted to R heel and plantar R heel. Non-blanchable erythema without fluctuance noted to L heel. Tx.Plan: Cleanse sacral wound with Saline. Loosely pack with Hydrogel infused Kerlix. Apply Moisture Barrier periwound. Cover with Optifoam.Change Twice Daily and PRN. Apply Moisture Barrier Paste to Bilat groin areas and Scrotum with each Incontinence care. Apply Cavilon Skin Barrier to both Heels. Cover each heel with Optifoam drsg. Change every 7 days and prn. Air Fluidized Mattress. Reposition at least every 2hours or as tolerated. Position with Pillow between knees. Off-load heels with Pillow. ICD Codes: L89.159 - Pressure ulcer of sacral region, unspecified stage SNOMED: 806435411 (7) History of CVA (cerebrovascular accident) ICD Codes: Z86.73 - Personal history of transient ischemic attack (TIA), and cerebral infarction without residual deficits SNOMED: 777463176 (8) Severe malnutrition Assessment & Plan: DAILY ESTIMATED NEEDS: Needs based on wound, wasting, DM / 59kg 30-35 kcals/kg 7983-1479 total kcals 1.25-2 g protein/kg 74-118 g total protein 25-30 mL/kg 7269-9765 total fluid mLs NUTRITION DIAGNOSIS: * Increased kcal/prot needs R/T wound healing, wt loss as evidenced by recent history of sacral stage 4 wound, severe BL LE wasting, 91% [place] Body Weight. month. * Swallowing difficulty R/T dysphagia w/ h/o brain tumor and CVA as evidenced by s/p recent PEG placement, pending GT feeding. (CURRENT TF:Glytrol @45) ENTERAL NUTRITION RECOMMENDATIONS: Glucerna 1.5 @ 50ml/hr x 24 hrs to provide 1200ml, 1800kcal, 99g prot, 911ml free water * Start @30ml/hr, advance as tolerated 10ml/hr q4-6 hrs to goal * HOB over 30 degrees/ water flush per MD ------ ADDITIONAL RECOMMENDATIONS: * Calibrated bedscale wt for accurate CBW * Check lytes daily w/ TF, replete as needed * Wound healing: Ziyad 1pkt BID F/up w/ WC eval * Monitor BGs closely, need for tighter regimen (BGs in the 200's) -> consider long acting insulin ICD Codes: E43 - Unspecified severe protein-calorie malnutrition SNOMED: 71852615 (9) Anemia ICD Codes: D64.9 - Anemia, unspecified SNOMED: 412962145 (10) PEG (percutaneous endoscopic gastrostomy) adjustment/replacement/removal ICD Codes: Z43.1 - Encounter for attention to gastrostomy SNOMED: 868392326, 896377456 (11) Sepsis Assessment & Plan: leukocytosis anemia lactic acidosis on IV abx improving wounds unlikely etiology as chronic no acute infection noted in wounds will monitor ICD Codes: A41.9 - Sepsis, unspecified organism SNOMED: 99602143 Qualifiers: Qualified Codes: A41.9 - Sepsis, unspecified organism (12) Acute encephalopathy ICD Codes: G93.40 - Encephalopathy, unspecified SNOMED: 61995033, 943175099 (13) acute toxic encephalopathy (14) Uncontrolled seizures ICD Codes: R56.9 - Unspecified convulsions SNOMED: 56272765 (15) Tachycardia ICD Codes: R00.0 - Tachycardia, unspecified SNOMED: 4768421 (16) Acute respiratory failure ICD Codes: J96.00 - Acute respiratory failure, unspecified whether with hypoxia or hypercapnia SNOMED: 77387770 (17) UTI (urinary tract infection) ICD Codes: N39.0 - Urinary tract infection, site not specified SNOMED: 70751945, 912002460, 126523095 Qualifiers: Qualified Codes: N39.0 - Urinary tract infection, site not specified; R31.9 - Hematuria, unspecified (18) Hematuria ICD Codes: R31.9 - Hematuria, unspecified SNOMED: 95982059 Harry Rivas Dec 11, 2018 15:44
--- NOTE | 2018-12-11 16:08 | NUR ---
NURSE NOTES: ADls done,turned and repositioned,Feeding Glucerna 1.5 started goal 5occ/hr.Per Dr Braun pt was on regular diabetic diet and can have both.Order noted and carried out. To be transfer to [facility].
--- NOTE | 2018-12-11 16:36 | NUR ---
CASE MANAGEMENT:REVIEW 12/11/18 SI: SEPSIS. ELEVATED TROPONIN 98.0 107 19 98/55 99% ON RA WBC+18.7 H/H-9.8/30.2 TROPONIN(+) 0.129 IS: IV CEFEPIME Q12 IV FLAGYL Q8HRS CARDIZEM GT Q6HRS HEPARIN SQ Q8HRS : ICU STATUS DCP: FROM [facility]
--- NOTE | 2018-12-11 17:50 | NUR ---
NURSE NOTES: Transferred to [facility] and report given to CHIDI Nicolas
--- NOTE | 2018-12-11 18:13 | NUR ---
Social Service Note SW very familiar with patient and family. On previous admission patient's son Denis signed a POLST indicating DNR/DNI on 11/11 and code status was changed. SW contacted [facility] [phone] medical records and they couldn't locate and updated POLST. SW at [facility] unavailable to discuss. Message left for Joseph [phone], no return call at this time. SW discussed with Dr. Feng. Code status to be readdressed with family. Patient will continue to require jail placement upon discharge. Will continue to monitor and follow up with code status.
--- NOTE | 2018-12-11 18:51 | NUR ---
NURSE NOTES: Received pt from CHIDI Teixeira in stable condition with no cardiopulmonary distress noted. Pt is AAOx2 on RA, hooked to cubing machine tender 115bpm, GT noted running Glucerna 1.5 at 30cc/hr. F/C noted draining yellow urine. Skin alterations noted, pictures taken and uploaded, wound care performed. Pt has a PHILLIP PICC. Pt belongings at bedside. Side rails padded per seizure precaution, bed is in lowest position with alarm on, call light within reach. Will continue to monitor. Addendum: 12/11/18 at 1942 by Maria Isabel Nolasco RN Late entry: Pt has bilat soft wrist restraints and mittens. Skin of bilat wrists intact. Pulses present bilat.
[2018-12-11] MEDS ORDERED: HYDROcodone/Acetamin 5/325 tab ORAL PRN (19:00)
--- NOTE | 2018-12-11 19:51 | NUR ---
HAND-OFF: Report given to CHIDI Abad. Pt in stable condition.
[2018-12-11] MEDS ORDERED: Dyna-Hex 2% Top Sol 2oz TOPIC SCH (20:00)
--- NOTE | 2018-12-11 20:00 | NUR ---
NURSE NOTES: Received pt from CHIDI Nicolas Patient in stable condition with no cardiopulmonary distress noted. Pt is AAOx2, patient is confused,agitated, restless. hooked to environmental monitoring technician 111bpm, GT noted running Glucerna 1.5 at 30cc/hr. F/C noted draining yellow urine. Skin alterations noted. Pt has a PHILLIP PICC. Peripheral IV noted. Pt belongings at bedside. Side rails padded per seizure precaution, bed is in lowest position with alarm on, call light within reach. Patient closes to nurses station, Will continue to monitor. Addendum: 12/12/18 at 0736 by DAYTON LOCKE RN Patient also has bilateral soft wrist restraints, pulses noted, skin intact, no swelling. Active range of motion provided.
[2018-12-11] MEDS: Morphine Sulfate 4mg/ml Inj (IV USE ONLY) IVP PRN (20:18)
--- NOTE | 2018-12-11 20:18 | NUR ---
NURSE NOTES: Morphine 4mg IVP provided for pain 10/10 pain scale.
--- NOTE | 2018-12-11 20:30 | NUR ---
NURSE NOTES: Patient is able to take in PO meds by mouth, no gag or coughing noted.
[2018-12-11] MEDS ORDERED: Tamsulosin 0.4mg cap ORAL SCH (21:00)
[2018-12-11] MEDS ORDERED: Depakote 500mg tab ORAL SCH (21:00)
--- NOTE | 2018-12-11 21:00 | NUR ---
NURSE NOTES: Glucoses noted to be 95, no coverage needed. Patient remained agitated and restless, RN at bedside as a sitter.
[2018-12-11] MEDS: Heparin 5000 units/ml inj SUBQ SCH (21:04)
[2018-12-11] MEDS ORDERED: Heparin 5000 units/ml inj SUBQ SCH (22:00)
--- NOTE | 2018-12-11 22:00 | NUR ---
NURSE NOTES: Patient repositioned, given nectar thick water. Patient is less agitated but awake. Remains on bilateral wrist restraints. Pulse noted, skin at wrist remains in intact, no swelling. Feed increased by 10ml/hr. Now at 40ml/hr.
[2018-12-12] VITALS: BP 120/66
[2018-12-12] MEDS: Morphine Sulfate 4mg/ml Inj (IV USE ONLY) IVP PRN ×2 (03:03→14:59)
--- NOTE | 2018-12-12 03:03 | NUR ---
NURSE NOTES: Morphine 4mg IVP provided for pain 10/10 pain scale. Patient VSS at this time.
[2018-12-12 04:01] VITALS: BP 113/64
[2018-12-12] MEDS: dilTIAZem HCl 60mg tab ORAL SCH ×3 (05:06→17:19)
[2018-12-12] MEDS: Heparin 5000 units/ml inj SUBQ SCH ×3 (05:07→22:02)
[2018-12-12] MEDS: NovoLOG Insulin Flexpen SUBQ SCH ×4 (05:07→22:00)
[2018-12-12 06:01] LABS: HEMATOCRIT 27.4 % (42.0-52.0); HEMOGLOBIN 9.1 G/DL (14.2-18.0); MEAN CORPUSCULAR VOLUME 92 FL (80-99); PLATELET COUNT 229 K/UL (150-450); RED BLOOD COUNT 2.99 M/UL (4.70-6.10); RED CELL DISTRIBUTION WIDTH 15.1 % (11.6-14.8)
--- NOTE | 2018-12-12 06:01 | Pulmonology Progress Note ---
Assessment/Plan Problems: (1) Bacteremia (2) Sepsis (3) Acute encephalopathy (4) Hematuria (5) Oligodendroglioma (6) Severe malnutrition (7) Diabetes mellitus (8) Hypertension (9) History of CVA (cerebrovascular accident) (10) Sacral decubitus ulcer Assessment/Plan sinus rhythm now wbc decreasing continue abx check electrolytes no more seizure tolerating feeding Subjective ROS Limited/Unobtainable: No Constitutional: Reports: no symptoms Respiratory: Reports: no symptoms Allergies: Coded Allergies: No Known Allergies (Unverified , 09/27/18) Objective Last 24 Hour Vital Signs Date Time Temp Pulse Resp B/P (MAP) Pulse Ox O2 Delivery O2 Flow Rate FiO2 12/12/18 05:06 114 113/64 12/12/18 04:01 97.8 114 20 113/64 (80) 96 12/12/18 04:00 95 12/12/18 02:30 98 Room Air 21 12/12/18 00:00 97.8 100 20 120/66 (84) 99 12/12/18 00:00 Nasal Cannula 2.0 12/12/18 00:00 109 12/11/18 23:53 116 121/70 12/11/18 20:00 116 12/11/18 20:00 97.8 113 20 121/70 (87) 99 12/11/18 20:00 Nasal Cannula 2.0 12/11/18 17:06 106 114/64 12/11/18 17:00 113 19 114/64 (81) 99 12/11/18 16:00 98.0 108 16 116/89 (98) 98 12/11/18 16:00 88 12/11/18 16:00 Room Air 12/11/18 15:00 107 19 98/55 (69) 99 12/11/18 14:00 92 19 91/53 (66) 99 12/11/18 13:00 98.0 88 16 89/51 (64) 98 12/11/18 12:00 99 12/11/18 12:00 Room Air 12/11/18 12:00 100 19 97/53 (68) 99 12/11/18 12:00 106 100/60 12/11/18 11:00 101 19 100/60 (73) 99 12/11/18 10:00 101 19 100/60 (73) 99 12/11/18 09:00 118 19 97/54 (68) 99 12/11/18 08:56 98.2 12/11/18 08:00 Room Air 12/11/18 08:00 124 12/11/18 08:00 113 27 91/54 (66) 99 12/11/18 07:00 98.2 121 24 100/50 (67) 99 12/11/18 06:00 124 24 107/42 (63) 98 Intake and Output 12/11/18 12/12/18 19:00 07:00 Intake Total 265 ml 115 ml Output Total 360 ml 700 ml Balance -95 ml -585 ml Intake Oral 0 ml Free Water 50 ml IV Total 155 ml 55 ml Tube Feeding 60 ml 60 ml Output Urine Total 360 ml 700 ml General Appearance: WD/WN HEENT: normocephalic, atraumatic Respiratory/Chest: lungs clear, normal breath sounds Cardiovascular: normal peripheral pulses, regular rhythm Abdomen: normal bowel sounds, no organomegaly 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 Lymphatic: no neck adenopathy Microbiology Date/Time Source Procedure Growth Status 12/10/18 02:45 Blood Blood Culture - Preliminary Resulted 12/10/18 02:30 Blood Blood Culture - Preliminary Resulted 12/10/18 03:24 Nasal Nares MRSA Culture - Final Staphylococcus Aureus - Mrsa Complete 12/10/18 01:30 Urine,Clean Catch Urine Culture - Preliminary Gram Negative Bacillus 1 Resulted 12/10/18 03:24 Rectum Received Laboratory Tests 12/11/18 06:00: White Blood Count 18.7H, Red Blood Count 3.26L, Hemoglobin 9.8L, Hematocrit 30.2L, Mean Corpuscular Volume 93, Mean Corpuscular Hemoglobin 30.1, Mean Corpuscular Hemoglobin Concent 32.5, Red Cell Distribution Width 15.3H, Platelet Count 276, Mean Platelet Volume 6.2L, Neutrophils (%) (Auto) , Lymphocytes (%) (Auto) , Monocytes (%) (Auto) , Eosinophils (%) (Auto) , Basophils (%) (Auto) , Differential Total Cells Counted 100, Neutrophils % ( Manual) 91H, Lymphocytes % (Manual) 5L, Monocytes % (Manual) 4, Eosinophils % ( Manual) 0, Basophils % (Manual) 0, Band Neutrophils 0, Platelet Estimate Adequate, Platelet Morphology Normal, Anisocytosis 1+, Sodium Level 140, Potassium Level 3.7, Chloride Level 103, Carbon Dioxide Level 29, Anion Gap 8, Blood Urea Nitrogen 11, Creatinine 0.4L, Estimat Glomerular Filtration Rate > 60 , Glucose Level 96#, Lactic Acid Level 1.30, Calcium Level 8.3L, Phosphorus Level 3.0, Magnesium Level 1.7L, Total Bilirubin 0.3, Aspartate Amino Transf ( AST/SGOT) 25, Alanine Aminotransferase (ALT/SGPT) 22, Alkaline Phosphatase 92, Troponin I 0.129H, Total Protein 5.3L, Albumin 2.1L, Globulin 3.2, Albumin/ Globulin Ratio 0.7L 12/12/18 05:00: White Blood Count [Pending], Red Blood Count [Pending], Hemoglobin [Pending], Hematocrit [Pending], Mean Corpuscular Volume [Pending], Mean Corpuscular Hemoglobin [Pending], Mean Corpuscular Hemoglobin Concent [Pending], Red Cell Distribution Width [Pending], Platelet Count [Pending], Mean Platelet Volume [ Pending], Neutrophils (%) (Auto) [Pending], Lymphocytes (%) (Auto) [Pending], Monocytes (%) (Auto) [Pending], Eosinophils (%) (Auto) [Pending], Basophils (%) (Auto) [Pending], Sodium Level [Pending], Potassium Level [Pending], Chloride Level [Pending], Carbon Dioxide Level [Pending], Blood Urea Nitrogen [Pending], Creatinine [Pending], Estimat Glomerular Filtration Rate [Pending], Glucose Level [Pending], Calcium Level [Pending], Phosphorus Level [Pending], Magnesium Level [Pending], Total Bilirubin [Pending], Aspartate Amino Transf (AST/SGOT) [ Pending], Alanine Aminotransferase (ALT/SGPT) [Pending], Alkaline Phosphatase [ Pending], Total Protein [Pending], Albumin [Pending], Globulin [Pending], Erythrocyte Sedimentation Rate [Pending], C-Reactive Protein, Quantitative [ Pending] Current Medications Medications (Trade) Dose Ordered Sig/Chace Route PRN Reason Start Time Stop Time Status Last Admin Dose Admin Acetaminophen (Tylenol) 650 mg Q4H PRN ORAL Mild Pain/Temp > 100.5 12/11/18 19:00 7/20/19 18:59 Acetaminophen/ Hydrocodone Bitart ([place] 5/325) 1 tab Q4H PRN ORAL Severe Pain (Pain Scale 7-10) 12/11/18 19:00 12/17/18 18:59 Cefepime HCl 1 gm/ Dextrose 55 ml @ 110 mls/hr EVERY 12 HOURS IVPB 12/11/18 21:00 12/17/18 08:59 12/11/18 21:03 Chlorhexidine Gluconate ([place]-Hex 2%) 1 applic DAILY@2000 TOPIC 12/11/18 20:00 01/09/19 19:59 12/11/18 20:19 Dextrose (Dextrose 50%) 25 ml Q30M PRN IV Hypoglycemia 12/11/18 18:30 01/09/19 06:29 Dextrose (Dextrose 50%) 50 ml Q30M PRN IV Hypoglycemia 12/11/18 18:30 01/09/19 06:29 Diltiazem HCl (Cardizem) 60 mg EVERY 6 HOURS ORAL 12/12/18 00:00 01/09/19 17:59 12/12/18 05:06 Divalproex Sodium (Depakote) 500 mg Q12HR ORAL 12/11/18 21:00 01/09/19 20:59 12/11/18 20:18 Finasteride (Proscar) 5 mg DAILY@2100 ORAL 12/11/18 21:00 01/09/19 20:59 12/11/18 20:19 Heparin Sodium (Porcine) (Heparin 5000 units/ml) 5,000 units EVERY 8 HOURS SUBQ 12/11/18 22:00 01/10/19 21:59 12/12/18 05:07 Insulin Aspart (NovoLOG) BEFORE MEALS AND HS SUBQ 12/11/18 21:00 01/09/19 06:29 12/12/18 05:07 Lamotrigine (LaMICtal) 50 mg DAILY ORAL 12/12/18 09:00 01/09/19 08:59 Metronidazole 100 ml @ 100 mls/hr Q8HR@0000,0800,1600 IVPB 12/12/18 00:00 12/17/18 07:59 12/11/18 23:54 Morphine Sulfate (Morphine Sulfate) 4 mg Q6H PRN IVP Severe Pain (Pain Scale 7-10) 12/11/18 19:00 12/17/18 12:59 12/12/18 03:03 Sitagliptin Phosphate (Januvia) 50 mg DAILY ORAL 12/12/18 09:00 01/09/19 08:59 Tamsulosin HCl (Flomax) 0.4 mg BEDTIME ORAL 12/11/18 21:00 01/09/19 20:59 12/11/18 20:18 Raul Feng MD Dec 12, 2018 06:01
[2018-12-12 06:24] LABS: ALANINE AMINOTRANSFERASE 18 U/L (12-78); ALBUMIN 1.9 G/DL (3.4-5.0); ALBUMIN/GLOBULIN RATIO 0.5 (1.0-2.7); ALKALINE PHOSPHATASE 87 U/L (46-116); ANION GAP 6 mmol/L (5-15); ASPARTATE AMINO TRANSFERASE 17 U/L (15-37); BILIRUBIN,TOTAL 0.3 MG/DL (0.2-1.0); BLOOD UREA NITROGEN 7 mg/dL (7-18); CALCIUM 8.4 MG/DL (8.5-10.1); CARBON DIOXIDE 30 MMOL/L (21-32); CHLORIDE 104 MMOL/L (98-107); CREATININE 0.4 MG/DL (0.55-1.30); PHOSPHORUS 2.5 MG/DL (2.5-4.9); POTASSIUM 3.1 MMOL/L (3.5-5.1); SODIUM 140 MMOL/L (136-145)
--- NOTE | 2018-12-12 07:10 | NUR ---
NURSE NOTES: Received pt from CHIDI Abad in stable condition with no cardiopulmonary distress noted. Pt is asleep on 2L NC, hooked to athletic monitor 113 bpm. GT noted running Glucerna 1.5 at 50cc/hr. F/C noted draining yellow urine. Skin alterations noted. Pt has a PHILLIP PICC and L hand 20g IV. Side rails padded per seizure precaution and up x3, bed is in lowest position with alarm on, call light within reach. Will continue to monitor. Addendum: 12/12/18 at 0739 by Maria Isabel Nolasco RN Addition: Bilt soft wrist restraints noted, bilat wrist skin intact and radial pulses present.
--- NOTE | 2018-12-12 07:34 | NUR ---
HAND-OFF: Report given to Corinne Nolasco RN.
[2018-12-12 08:00] VITALS: BP 107/66
[2018-12-12] MEDS ORDERED: sitaGLIPtin 50mg tab ORAL SCH (09:00)
[2018-12-12] MEDS: Cefepime HCl 1 GM in D5W 55 ML IVPB SCH ×2 (09:43→22:04)
[2018-12-12 12:00] VITALS: BP 104/64
--- NOTE | 2018-12-12 12:46 | Cardiac Electrophysiology PN ---
Assessment/Plan Assessment/Plan 1. SVT with rapid ventricular response. No recurrence on Cardizem 60 q 6. EF 50% 2. Troponin leak 1.7> 1.3 2. Hypertension. On Cardizem 60 q6 3. History of glioblastoma. 4. Dysphagia, status post PEG placement. 5. Diabetes. 6. Encephalopathy. 7. Hematuria. Resolved after Mota was advanced and positioned in bladder by Dr Soham arango Subjective Subjective Transferred to [facility]. HR better on PO Cardizem. In SR. Objective Last 24 Hour Vital Signs Date Time Temp Pulse Resp B/P (MAP) Pulse Ox O2 Delivery O2 Flow Rate FiO2 12/12/18 12:00 97.3 103 18 104/64 (77) 97 12/12/18 12:00 Nasal Cannula 2.0 12/12/18 11:48 109 110/71 12/12/18 08:00 Nasal Cannula 2.0 12/12/18 08:00 97.3 107 20 107/66 (80) 100 12/12/18 07:46 116 12/12/18 05:06 114 113/64 12/12/18 04:01 97.8 114 20 113/64 (80) 96 12/12/18 04:00 Nasal Cannula 2.0 12/12/18 04:00 95 12/12/18 02:30 98 Room Air 21 12/12/18 00:00 97.8 100 20 120/66 (84) 99 12/12/18 00:00 Nasal Cannula 2.0 12/12/18 00:00 109 12/11/18 23:53 116 121/70 12/11/18 20:00 116 12/11/18 20:00 97.8 113 20 121/70 (87) 99 12/11/18 20:00 Nasal Cannula 2.0 12/11/18 17:06 106 114/64 12/11/18 17:00 113 19 114/64 (81) 99 12/11/18 16:00 98.0 108 16 116/89 (98) 98 12/11/18 16:00 88 12/11/18 16:00 Room Air 12/11/18 15:00 107 19 98/55 (69) 99 12/11/18 14:00 92 19 91/53 (66) 99 12/11/18 13:00 98.0 88 16 89/51 (64) 98 Intake and Output 12/11/18 12/12/18 19:00 07:00 Intake Total 265 ml 775 ml Output Total 360 ml 700 ml Balance -95 ml 75 ml Intake Oral 0 ml Free Water 50 ml 200 ml IV Total 155 ml 55 ml Tube Feeding 60 ml 520 ml Output Urine Total 360 ml 700 ml Laboratory Tests Test 12/12/18 05:00 White Blood Count 10.0 K/UL (4.8-10.8) Red Blood Count 2.99 M/UL (4.70-6.10) L Hemoglobin 9.1 G/DL (14.2-18.0) L Hematocrit 27.4 % (42.0-52.0) L Mean Corpuscular Volume 92 FL (80-99) Mean Corpuscular Hemoglobin 30.3 PG (27.0-31.0) Mean Corpuscular Hemoglobin Concent 33.1 G/DL (32.0-36.0) Red Cell Distribution Width 15.1 % (11.6-14.8) H Platelet Count 229 K/UL (150-450) Mean Platelet Volume 6.0 FL (6.5-10.1) L Neutrophils (%) (Auto) % (45.0-75.0) Lymphocytes (%) (Auto) % (20.0-45.0) Monocytes (%) (Auto) % (1.0-10.0) Eosinophils (%) (Auto) % (0.0-3.0) Basophils (%) (Auto) % (0.0-2.0) Differential Total Cells Counted 100 Neutrophils % (Manual) 82 % (45-75) H Lymphocytes % (Manual) 8 % (20-45) L Monocytes % (Manual) 9 % (1-10) Eosinophils % (Manual) 0 % (0-3) Basophils % (Manual) 0 % (0-2) Band Neutrophils 1 % (0-8) Platelet Estimate Adequate Platelet Morphology Normal Anisocytosis 1+ Erythrocyte Sedimentation Rate 95 MM/HR (0-20) H Sodium Level 140 MMOL/L (136-145) Potassium Level 3.1 MMOL/L (3.5-5.1) L Chloride Level 104 MMOL/L (98-107) Carbon Dioxide Level 30 MMOL/L (21-32) Anion Gap 6 mmol/L (5-15) Blood Urea Nitrogen 7 mg/dL (7-18) Creatinine 0.4 MG/DL (0.55-1.30) L Estimat Glomerular Filtration Rate > 60 mL/min (>60) Glucose Level 154 MG/DL (74-106) H Calcium Level 8.4 MG/DL (8.5-10.1) L Phosphorus Level 2.5 MG/DL (2.5-4.9) Magnesium Level 1.7 MG/DL (1.8-2.4) L Total Bilirubin 0.3 MG/DL (0.2-1.0) Aspartate Amino Transf (AST/SGOT) 17 U/L (15-37) Alanine Aminotransferase (ALT/SGPT) 18 U/L (12-78) Alkaline Phosphatase 87 U/L (46-116) C-Reactive Protein, Quantitative 17.0 mg/dL (0.00-0.90) H Total Protein 5.4 G/DL (6.4-8.2) L Albumin 1.9 G/DL (3.4-5.0) L Globulin 3.5 g/dL Albumin/Globulin Ratio 0.5 (1.0-2.7) L Microbiology Date/Time Source Procedure Growth Status 12/10/18 02:45 Blood Blood Culture - Preliminary Resulted 12/10/18 02:30 Blood Blood Culture - Preliminary Resulted 12/10/18 03:24 Nasal Nares MRSA Culture - Final Staphylococcus Aureus - Mrsa Complete 12/10/18 01:30 Urine,Clean Catch Urine Culture - Final Escherichia Coli Complete 12/10/18 03:24 Rectum - Final NO CARBAPENEM-RESISTANT ENTEROBACTERI... Complete 12/10/18 03:24 Rectum VRE Culture - Final Enterococcus Faecium - Vre Complete Objective HEAD AND NECK: No JVD. LUNGS: Clear. CARDIOVASCULAR: Regular S1 and S2 with no gallop or murmur. ABDOMEN: Status post G-tube. EXTREMITIES: No pitting edema. Huy Valladares MD Dec 12, 2018 12:46
[2018-12-12] MEDS ORDERED: HYDROcodone/Acetamin 5/325 tab ORAL PRN (14:07)
--- NOTE | 2018-12-12 14:16 | Internal Med Progress Note ---
Subjective Date of Service: Dec 12, 2018 Physician Name Jesus Kidd Attending Physician Camacho Braun MD Current Medications Medications (Trade) Dose Ordered Sig/Chace Route PRN Reason Start Time Stop Time Status Last Admin Dose Admin Acetaminophen (Tylenol) 650 mg Q4H PRN ORAL Mild Pain/Temp > 100.5 12/12/18 14:06 01/11/19 14:05 Acetaminophen/ Hydrocodone Bitart ([place] 5/325) 1 tab Q4H PRN ORAL Severe Pain (Pain Scale 7-10) 12/12/18 14:07 12/19/18 14:06 Cefepime HCl 1 gm/ Dextrose 55 ml @ 110 mls/hr EVERY 12 HOURS IVPB 12/12/18 21:00 12/17/18 08:59 UNV Chlorhexidine Gluconate (Susannah-Hex 2%) 1 applic DAILY@2000 TOPIC 12/12/18 20:00 01/09/19 19:59 Dextrose (Dextrose 50%) 25 ml Q30M PRN IV Hypoglycemia 12/12/18 14:30 01/09/19 06:29 Dextrose (Dextrose 50%) 50 ml Q30M PRN IV Hypoglycemia 12/12/18 14:30 01/09/19 06:29 Diltiazem HCl (Cardizem) 60 mg EVERY 6 HOURS ORAL 12/12/18 18:00 01/09/19 17:59 UNV Divalproex Sodium (Depakote) 500 mg Q12HR ORAL 12/12/18 21:00 01/09/19 20:59 Finasteride (Proscar) 5 mg DAILY@2100 ORAL 12/12/18 21:00 01/09/19 20:59 Heparin Sodium (Porcine) (Heparin 5000 units/ml) 5,000 units EVERY 8 HOURS SUBQ 12/12/18 22:00 01/10/19 21:59 Insulin Aspart (NovoLOG) BEFORE MEALS AND HS SUBQ 12/12/18 16:30 01/09/19 06:29 UNV Lamotrigine (LaMICtal) 50 mg DAILY ORAL 12/13/18 09:00 01/09/19 08:59 Metronidazole 100 ml @ 100 mls/hr Q8HR@0000,0800,1600 IVPB 12/12/18 16:00 12/17/18 07:59 UNV Morphine Sulfate (Morphine Sulfate) 4 mg Q6H PRN IVP Severe Pain (Pain Scale 7-10) 12/12/18 14:07 12/19/18 14:06 Sitagliptin Phosphate (Januvia) 50 mg Q24H ORAL 12/13/18 06:30 01/12/19 06:29 Tamsulosin HCl (Flomax) 0.4 mg BEDTIME ORAL 12/12/18 21:00 01/09/19 20:59 Allergies: Coded Allergies: No Known Allergies (Unverified , 09/27/18) ROS Limited/Unobtainable: No Constitutional: Reports: no symptoms HEENT: Reports: no symptoms Cardiovascular: Reports: no symptoms Respiratory: Reports: no symptoms Gastrointestinal/Abdominal: Reports: no symptoms Genitourinary: Reports: no symptoms Neurologic/Psychiatric: Reports: no symptoms Subjective 68 YO M admitted with hematuria and fever, Now UTI. Cover for Int gage-Dr Braun Objective Last Vital Signs Date Time Temp Pulse Resp B/P (MAP) Pulse Ox O2 Delivery O2 Flow Rate FiO2 12/12/18 12:00 97.3 103 18 104/64 (77) 97 12/12/18 12:00 Nasal Cannula 2.0 12/12/18 02:30 21 Laboratory Tests Test 12/12/18 05:00 White Blood Count 10.0 K/UL (4.8-10.8) Red Blood Count 2.99 M/UL (4.70-6.10) L Hemoglobin 9.1 G/DL (14.2-18.0) L Hematocrit 27.4 % (42.0-52.0) L Mean Corpuscular Volume 92 FL (80-99) Mean Corpuscular Hemoglobin 30.3 PG (27.0-31.0) Mean Corpuscular Hemoglobin Concent 33.1 G/DL (32.0-36.0) Red Cell Distribution Width 15.1 % (11.6-14.8) H Platelet Count 229 K/UL (150-450) Mean Platelet Volume 6.0 FL (6.5-10.1) L Neutrophils (%) (Auto) % (45.0-75.0) Lymphocytes (%) (Auto) % (20.0-45.0) Monocytes (%) (Auto) % (1.0-10.0) Eosinophils (%) (Auto) % (0.0-3.0) Basophils (%) (Auto) % (0.0-2.0) Differential Total Cells Counted 100 Neutrophils % (Manual) 82 % (45-75) H Lymphocytes % (Manual) 8 % (20-45) L Monocytes % (Manual) 9 % (1-10) Eosinophils % (Manual) 0 % (0-3) Basophils % (Manual) 0 % (0-2) Band Neutrophils 1 % (0-8) Platelet Estimate Adequate Platelet Morphology Normal Anisocytosis 1+ Erythrocyte Sedimentation Rate 95 MM/HR (0-20) H Sodium Level 140 MMOL/L (136-145) Potassium Level 3.1 MMOL/L (3.5-5.1) L Chloride Level 104 MMOL/L (98-107) Carbon Dioxide Level 30 MMOL/L (21-32) Anion Gap 6 mmol/L (5-15) Blood Urea Nitrogen 7 mg/dL (7-18) Creatinine 0.4 MG/DL (0.55-1.30) L Estimat Glomerular Filtration Rate > 60 mL/min (>60) Glucose Level 154 MG/DL (74-106) H Calcium Level 8.4 MG/DL (8.5-10.1) L Phosphorus Level 2.5 MG/DL (2.5-4.9) Magnesium Level 1.7 MG/DL (1.8-2.4) L Total Bilirubin 0.3 MG/DL (0.2-1.0) Aspartate Amino Transf (AST/SGOT) 17 U/L (15-37) Alanine Aminotransferase (ALT/SGPT) 18 U/L (12-78) Alkaline Phosphatase 87 U/L (46-116) C-Reactive Protein, Quantitative 17.0 mg/dL (0.00-0.90) H Total Protein 5.4 G/DL (6.4-8.2) L Albumin 1.9 G/DL (3.4-5.0) L Globulin 3.5 g/dL Albumin/Globulin Ratio 0.5 (1.0-2.7) L Microbiology Date/Time Source Procedure Growth Status 12/10/18 02:45 Blood Blood Culture - Preliminary Resulted 12/10/18 02:30 Blood Blood Culture - Preliminary Resulted 12/10/18 03:24 Nasal Nares MRSA Culture - Final Staphylococcus Aureus - Mrsa Complete 12/10/18 01:30 Urine,Clean Catch Urine Culture - Final Escherichia Coli Complete 12/10/18 03:24 Rectum - Final NO CARBAPENEM-RESISTANT ENTEROBACTERI... Complete 12/10/18 03:24 Rectum VRE Culture - Final Enterococcus Faecium - Vre Complete Intake and Output 12/11/18 12/12/18 19:00 07:00 Intake Total 265 ml 775 ml Output Total 360 ml 700 ml Balance -95 ml 75 ml Intake Oral 0 ml Free Water 50 ml 200 ml IV Total 155 ml 55 ml Tube Feeding 60 ml 520 ml Output Urine Total 360 ml 700 ml Objective PHYSICAL EXAMINATION: GENERAL: The patient is a well-developed and well-nourished thin-appearing male, in no apparent distress. HEENT: Eyes, pupils are equal and responsive to light and accommodation. Extraocular movements are intact. NECK: Supple without lymphadenopathy. CHEST: Lungs are clear to auscultation bilaterally without wheezes or rales. CARDIOVASCULAR: Regular rhythm and rate. S1 and S2 are normal without murmurs, rubs, or gallops. ABDOMEN: Soft, nontender, and nondistended. Positive bowel sounds. No evidence of hepatosplenomegaly. Currently, no rebound or guarding noted. EXTREMITIES: Negative for clubbing, cyanosis, or edema. RECTAL/GENITAL: Not performed. NEUROLOGIC: Cranial nerves II through XII are grossly intact without focal deficits. Assessment/Plan Assessment/Plan ASSESSMENT: This is a 68-year-old male. 1. Fever. 2. Hematuria. 3. Leukocytosis. 4. Brain cancer. 5. Seizure disorder. 6. Diabetes type 2. 7. Cerebrovascular disease. 8. Right hemiparesis. 9. Hypertension. 10. Coronary artery disease. 11. Expressive aphasia. 12. Urinary tract infection=E. Coli TREATMENT: 1. Fever/hematuria/leukocytosis, may be secondary to urinary tract infection versus sepsis. Urine culture is pending. The patient has been started empirically on intravenous cefepime. Await urine culture results. 2. Brain cancer. 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 3. Seizure disorder. Continue Depakote and Vimpat as above. 4. Diabetes type 2. NovoLog sliding scale has been instituted. 5. Cerebrovascular disease/right hemiparesis. 6. Hypertension. 7. Coronary artery disease. 8. Expressive aphasia. 9. aBX=cefepime Kidd,Jesus MD Dec 12, 2018 14:16
--- NOTE | 2018-12-12 14:30 | NUR ---
TRANSFER TO FLOOR: Patient transferred to [facility] in stable condition, per Dr. Valladares via hospital bed and O2 tank, cardiac catheterization technician remains on. Report given to CHIDI Kerr. Belongings and medications given to CHIDI Kerr.
--- NOTE | 2018-12-12 14:33 | NUR ---
NURSE NOTES: Received report from CHIDI Nicolas. Patient on 2L oxygen via NC, no active s/s cardiac, respiratory distress noticed at this time. Patient belonging checked with RN, IV on left hand 20G, asymptomatic, patent, intact. PICC line on left upper arm inserted on 12/10/18, dressing changed on 12/11/18, asymptomatic, patent, intact. Patient on Bilateral soft wrist restraints, cap refill <3 sec, able to move, Patient on Mota Catheter, draining well to gravity, scant amount of blood around the Mota Catheter due to trauma from insertion, Picture taken for wound, sacral stage 4, 9cm x 7cm x 2cm, undermining 9-5 o'clock. Bilateral heels unbalanceable redness, Optifoam applied. VS at the time of arrival, T 98.7, HR 112, RR 19, BP 103/70, O2 sat 98%. Bed in lowest position, side rails upx3, call light within reach. Will continue to monitor.
[2018-12-12 16:00] VITALS: BP 103/70
--- NOTE | 2018-12-12 16:38 | Surgery Progress Note ---
Surgery Progress Note Subjective Additional Comments afebrile, tachycardic, leukocytosis resolved Objective Last 24 Hour Vital Signs Date Time Temp Pulse Resp B/P (MAP) Pulse Ox O2 Delivery O2 Flow Rate FiO2 12/12/18 12:00 97.3 103 18 104/64 (77) 97 12/12/18 12:00 103 12/12/18 12:00 Nasal Cannula 2.0 12/12/18 11:48 109 110/71 12/12/18 08:00 Nasal Cannula 2.0 12/12/18 08:00 97.3 107 20 107/66 (80) 100 12/12/18 07:46 116 12/12/18 05:06 114 113/64 12/12/18 04:01 97.8 114 20 113/64 (80) 96 12/12/18 04:00 Nasal Cannula 2.0 12/12/18 04:00 95 12/12/18 02:30 98 Room Air 21 12/12/18 00:00 97.8 100 20 120/66 (84) 99 12/12/18 00:00 Nasal Cannula 2.0 12/12/18 00:00 109 12/11/18 23:53 116 121/70 12/11/18 20:00 116 12/11/18 20:00 97.8 113 20 121/70 (87) 99 12/11/18 20:00 Nasal Cannula 2.0 12/11/18 17:06 106 114/64 12/11/18 17:00 113 19 114/64 (81) 99 I&O Intake and Output 12/11/18 12/12/18 19:00 07:00 Intake Total 265 ml 775 ml Output Total 360 ml 700 ml Balance -95 ml 75 ml Intake Oral 0 ml Free Water 50 ml 200 ml IV Total 155 ml 55 ml Tube Feeding 60 ml 520 ml Output Urine Total 360 ml 700 ml Dressing: saturated Wound: other Drains: other Cardiovascular: RSR Respiratory: decreased breath sounds Abdomen: soft, present bowel sounds, non-distended Extremities: other Laboratory Tests Test 12/12/18 05:00 White Blood Count 10.0 K/UL (4.8-10.8) Red Blood Count 2.99 M/UL (4.70-6.10) L Hemoglobin 9.1 G/DL (14.2-18.0) L Hematocrit 27.4 % (42.0-52.0) L Mean Corpuscular Volume 92 FL (80-99) Mean Corpuscular Hemoglobin 30.3 PG (27.0-31.0) Mean Corpuscular Hemoglobin Concent 33.1 G/DL (32.0-36.0) Red Cell Distribution Width 15.1 % (11.6-14.8) H Platelet Count 229 K/UL (150-450) Mean Platelet Volume 6.0 FL (6.5-10.1) L Neutrophils (%) (Auto) % (45.0-75.0) Lymphocytes (%) (Auto) % (20.0-45.0) Monocytes (%) (Auto) % (1.0-10.0) Eosinophils (%) (Auto) % (0.0-3.0) Basophils (%) (Auto) % (0.0-2.0) Differential Total Cells Counted 100 Neutrophils % (Manual) 82 % (45-75) H Lymphocytes % (Manual) 8 % (20-45) L Monocytes % (Manual) 9 % (1-10) Eosinophils % (Manual) 0 % (0-3) Basophils % (Manual) 0 % (0-2) Band Neutrophils 1 % (0-8) Platelet Estimate Adequate Platelet Morphology Normal Anisocytosis 1+ Erythrocyte Sedimentation Rate 95 MM/HR (0-20) H Sodium Level 140 MMOL/L (136-145) Potassium Level 3.1 MMOL/L (3.5-5.1) L Chloride Level 104 MMOL/L (98-107) Carbon Dioxide Level 30 MMOL/L (21-32) Anion Gap 6 mmol/L (5-15) Blood Urea Nitrogen 7 mg/dL (7-18) Creatinine 0.4 MG/DL (0.55-1.30) L Estimat Glomerular Filtration Rate > 60 mL/min (>60) Glucose Level 154 MG/DL (74-106) H Calcium Level 8.4 MG/DL (8.5-10.1) L Phosphorus Level 2.5 MG/DL (2.5-4.9) Magnesium Level 1.7 MG/DL (1.8-2.4) L Total Bilirubin 0.3 MG/DL (0.2-1.0) Aspartate Amino Transf (AST/SGOT) 17 U/L (15-37) Alanine Aminotransferase (ALT/SGPT) 18 U/L (12-78) Alkaline Phosphatase 87 U/L (46-116) C-Reactive Protein, Quantitative 17.0 mg/dL (0.00-0.90) H Total Protein 5.4 G/DL (6.4-8.2) L Albumin 1.9 G/DL (3.4-5.0) L Globulin 3.5 g/dL Albumin/Globulin Ratio 0.5 (1.0-2.7) L Plan Problems: (1) Lactic acid increased (2) Diabetes mellitus (3) Hypertension (4) Dysphagia (5) Oligodendroglioma (6) Sacral decubitus ulcer Assessment & Plan: Pt presented on admission with full thickness sacral pressure injury with undermining and bone visible at base of wound.Base of wound 90% granular with an area of 10% loose slough noted at undermined area at 11-12o'clock. Wound is malodorous. Small amt. brown exudate noted. Dark brown borders noted. (L)8.5cm x (W)7cm x (D)1.9cm undermining 9-5 by 3.5cm @9o'clock. Bilat groin areas and scrotum erythematous. Non-blanchable erythema without fluctuance noted to R heel and plantar R heel. Non-blanchable erythema without fluctuance noted to L heel. Tx.Plan: Cleanse sacral wound with Saline. Loosely pack with Hydrogel infused Kerlix. Apply Moisture Barrier periwound. Cover with Optifoam.Change Twice Daily and PRN. Apply Moisture Barrier Paste to Bilat groin areas and Scrotum with each Incontinence care. Apply Cavilon Skin Barrier to both Heels. Cover each heel with Optifoam drsg. Change every 7 days and prn. Air Fluidized Mattress. Reposition at least every 2hours or as tolerated. Position with Pillow between knees. Off-load heels with Pillow. (7) History of CVA (cerebrovascular accident) (8) Severe malnutrition Assessment & Plan: DAILY ESTIMATED NEEDS: Needs based on wound, wasting, DM / 59kg 30-35 kcals/kg 3879-5138 total kcals 1.25-2 g protein/kg 74-118 g total protein 25-30 mL/kg 1046-2482 total fluid mLs NUTRITION DIAGNOSIS: * Increased kcal/prot needs R/T wound healing, wt loss as evidenced by recent history of sacral stage 4 wound, severe BL LE wasting, 91% [place] Body Weight. month. * Swallowing difficulty R/T dysphagia w/ h/o brain tumor and CVA as evidenced by s/p recent PEG placement, pending GT feeding. (CURRENT TF:Glytrol @45) ENTERAL NUTRITION RECOMMENDATIONS: Glucerna 1.5 @ 50ml/hr x 24 hrs to provide 1200ml, 1800kcal, 99g prot, 911ml free water * Start @30ml/hr, advance as tolerated 10ml/hr q4-6 hrs to goal * HOB over 30 degrees/ water flush per MD ------ ADDITIONAL RECOMMENDATIONS: * Calibrated bedscale wt for accurate CBW * Check lytes daily w/ TF, replete as needed * Wound healing: Ziyad 1pkt BID F/up w/ WC eval * Monitor BGs closely, need for tighter regimen (BGs in the 200's) -> consider long acting insulin (9) Anemia (10) PEG (percutaneous endoscopic gastrostomy) adjustment/replacement/removal (11) Sepsis Assessment & Plan: leukocytosis - resolved anemia lactic acidosis - resolved on IV abx improving wounds unlikely etiology as chronic no acute infection noted in wounds will monitor (12) Acute encephalopathy (13) acute toxic encephalopathy (14) Uncontrolled seizures (15) Tachycardia (16) Acute respiratory failure (17) UTI (urinary tract infection) (18) Hematuria Harry Rivas Dec 12, 2018 16:38
[2018-12-12] MEDS ORDERED: JANUVIA50 MG GT (17:47)
[2018-12-12] MEDS ORDERED: ACETAMINOP160 MG/5 M GT ×2 (17:52→17:53)
[2018-12-12] MEDS ORDERED: MULTI-DELYN237 ML GT (17:54)
[2018-12-12] MEDS ORDERED: VITAMIN C GT (17:56)
[2018-12-12] MEDS ORDERED: ZINC SULFATE220 M1 GT (17:57)
[2018-12-12] MEDS ORDERED: NORCO 5-325 TA1 EACH GT ×2 (18:02→18:04)
--- NOTE | 2018-12-12 19:35 | Cardiology Report ---
APPROVED REPORT EKG Measurement Heart [id number] Normal sinus rhythm Low voltage QRS Left anterior fascicular block Inferior infarct, age undetermined Cannot rule out Anteroseptal infarct, age undetermined Abnormal ECG
--- NOTE | 2018-12-12 19:41 | NUR ---
HAND-OFF: Report given to CHIDI San.
--- NOTE | 2018-12-12 19:45 | NUR ---
NURSE NOTES: Received report from CHIDI Kerr. Patient in bed showing no signs of acute distress. AOx2. Cardiac rhythm showing ST. Respiration even and non labored on 2L NC 02. No SOB noted. PICC line at is patent and intact. no signs of infection. IV on left hand 20g patent and intact. Bilateral soft wrist restraints are on, cap refill <3sec. Pt. on air mattress for sacral stage 4 press. ulcer. Optifoam dressing intact. Mota cath patent and intact, draining. Urine Clear yellow noted. Bed in lowest position, wheels locked, and alarm on. All needs attended and met. Will continue plan of care.
[2018-12-12 20:00] VITALS: BP 111/71
[2018-12-12] MEDS: Dyna-Hex 2% Top Sol 2oz TOPIC SCH (21:57)
[2018-12-12] MEDS: Tamsulosin 0.4mg cap ORAL SCH (21:58)
--- NOTE | 2018-12-12 22:01 | Consultation ---
History of Present Illness General Date patient seen: Dec 12, 2018 Chief Complaint: AMS Referring physician: Dr. Camacho Braun Present Illness HPI Pollo Crystal is a 68-year-old male with history of brain cancer presents who presents with a chief complaint of hematuria, fever , and abnormal laboratories. He is a resident of [facility]. According to staff at [facility], the patient began to experience fevers on 12/09/2018. The patient also had hematuria through his Mota. The patient also was noted to have leukocytosis. The patient was transferred to [facility] emergency room. The patient was admitted for fever, hematuria, and leukocytosis to rule out sepsis. Allergies: Coded Allergies: No Known Allergies (Unverified , 09/27/18) Medication History Scheduled Heparin Sod (Porcine) (Heparin Sodium*), 5,000 UNITS SUBQ EVERY 12 HOURS, ( Reported) Hydrocodone Bit/Acetaminophen 5-325* (Morley 5-325*), 1 TAB GT 30-60MIN, ( Reported) Metoprolol Tartrate* (Metoprolol Tartrate*), 25 MG ORAL EVERY 12 HOURS, ( Reported) Midodrine (Midodrine HCl), 10 MG GT THREE TIMES A DAY, (Reported) Multivitamin Liquid* (Multi-Delyn*), 5 ML GT DAILY, (Reported) Sitagliptin (Januvia), 50 MG GT DAILY, (Reported) Tamsulosin HCl (Flomax), 0.4 MG ORAL BEDTIME Zinc Sulfate (Zinc Sulfate*), 220 MG GT DAILY, (Reported) [Vitamin C 500MG/5ML ], 5 ML GT DAILY, (Reported) Scheduled PRN Acetaminophen 160MG/5ML* (Acetaminophen*), 16 ML GT Q6HR PRN for Mild Pain ( Pain Scale 1-3), (Reported) Acetaminophen 160MG/5ML* (Acetaminophen*), 21 ML GT Q6HR PRN for Moderate Pain ( Pain Scale 4-6), (Reported) Hydrocodone Bit/Acetaminophen 5-325* (Morley 5-325*), 1 TAB GT Q6H PRN for Severe Pain (Pain Scale 7-10), (Reported) Insulin Aspart (Novolog Flexpen), SUBQ Q6HR PRN for Per rx protocol, (Reported) Discontinued Medications Acetaminophen 160MG/5ML* (Acetaminophen*), 32 ML GT Q6HR PRN for Severe Pain ( Pain Scale 7-10), (Reported) Discontinued Reason: MD discontinued med Ciprofloxacin (Cipro), 750 MG GT Q12HR, (Reported) Discontinued Reason: Therapy completed Poloxamer (Poloxamer 407), 2,500 GM TOPIC Q3days, (Reported) Discontinued Reason: MD discontinued med Patient History Limited by: medical condition History Provided By: Medical Record Healthcare decision maker Resuscitation status Full Code Advanced Directive on File Past Medical/Surgical History Past Medical/Surgical History: (1) Diabetes mellitus (2) Hypertension (3) Dysphagia (4) Oligodendroglioma (5) Sacral decubitus ulcer (6) History of CVA (cerebrovascular accident) (7) Anemia (8) Severe malnutrition (9) PEG (percutaneous endoscopic gastrostomy) adjustment/replacement/removal (10) Uncontrolled seizures Review of Systems Constitutional: Denies: no symptoms, see HPI, chills, sweats, fever, malaise, weakness, other Eye: Denies: no symptoms, see HPI, eye pain, blurred vision, tearing, double vision, nose pain, nose congestion, acuity changes, discharge, other ENT: Denies: no symptoms, see HPI, ear pain, ear discharge, nose pain, nose congestion, throat pain, throat swelling, mouth pain, hearing loss, nasal discharge, other Respiratory: Denies: no symptoms, see HPI, cough, orthopnea, shortness of breath, stridor, wheezing, QUINONES, sputum, other Cardiovascular: Denies: no symptoms, see HPI, chest pain, edema, palpitations, syncope, PND, other Gastrointestinal: Denies: no symptoms, see HPI, abdominal pain, constipation, diarrhea, nausea, vomiting, melena, hematemesis, other Genitourinary: Denies: no symptoms, see HPI, discharge, dysuria, frequency, hematuria, pain, retention, incontinence, urgency, vag bleed/dc, other Musculoskeletal: Denies: no symptoms, see HPI, back pain, gout, joint pain, joint swelling, muscle pain, muscle stiffness, other Skin: Denies: no symptoms, see HPI, rash, change in color, change in hair/nails , dryness, lesions, other Psychiatric: Denies: no symptoms, see HPI, prior hx, anxiety, depressed feelings, emotional problems, SI, HI, hallucinations, other Neurological: Denies: no symptoms, see HPI, headache, numbness, paresthesia, seizure, tingling, tremors, focal weakness, syncope, dizziness, other Endocrine: Denies: no symptoms, see HPI, excessive sweating, flushing, intolerance to temperature, increased thirst, increased urine, unexplained weight loss, other Hematologic/Lymphatic: Denies: no symptoms, see HPI, anemia, blood clots, easy bleeding, easy bruising, swollen glands, diathesis, other All Other Systems: negative except mentioned in HPI Physical Exam General Appearance: WD/WN, alert, lethargic, confused Lines, tubes and drains: peripheral HEENT: normocephalic, atraumatic, anicteric, mucous membranes moist, PERRL, EOMI, pharynx normal, supple, no JVD Neck: non-tender, normal alignment, supple, normal inspection Respiratory/Chest: normal breath sounds, no respiratory distress, no accessory muscle use Cardiovascular/Chest: normal peripheral pulses, regular rhythm Extremities: normal inspection, no calf tenderness, normal capillary refill, non-pitting Skin Exam: normal pigmentation, warm/dry Neurologic: abnormal CN, motor weakness, sensory deficit, unresponsiveness, aphasia, other Musculoskeletal: normal muscle bulk, no effusion Physical Exam Narrative left frontal oligodendroglioma, grade II s/p resection as well as left frontal stroke with a baseline right hemiplegia intermittent eye opening and preferential gaze to the left - w/d x 4 PERLL - visual joe unable to be obtained but partial hemianopia also suspected on the right side. Does not follow commands. Last 24 Hour Vital Signs Date Time Temp Pulse Resp B/P (MAP) Pulse Ox O2 Delivery O2 Flow Rate FiO2 12/12/18 17:19 112 103/70 12/12/18 16:00 98.7 112 19 103/70 (81) 96 12/12/18 16:00 106 12/12/18 16:00 Nasal Cannula 2.0 12/12/18 12:00 97.3 103 18 104/64 (77) 97 12/12/18 12:00 103 12/12/18 12:00 Nasal Cannula 2.0 12/12/18 11:48 109 110/71 12/12/18 08:00 Nasal Cannula 2.0 12/12/18 08:00 97.3 107 20 107/66 (80) 100 12/12/18 07:46 116 12/12/18 05:06 114 113/64 12/12/18 04:01 97.8 114 20 113/64 (80) 96 12/12/18 04:00 Nasal Cannula 2.0 12/12/18 04:00 95 12/12/18 02:30 98 Room Air 21 12/12/18 00:00 97.8 100 20 120/66 (84) 99 12/12/18 00:00 Nasal Cannula 2.0 12/12/18 00:00 109 12/11/18 23:53 116 121/70 Intake and Output 12/11/18 12/12/18 18:59 06:59 Intake Total 235 ml 755 ml Output Total 360 ml 700 ml Balance -125 ml 55 ml Intake Oral 0 ml Free Water 50 ml 200 ml IV Total 155 ml 55 ml Tube Feeding 30 ml 500 ml Output Urine Total 360 ml 700 ml Laboratory Tests Test 12/12/18 05:00 White Blood Count 10.0 K/UL (4.8-10.8) Red Blood Count 2.99 M/UL (4.70-6.10) L Hemoglobin 9.1 G/DL (14.2-18.0) L Hematocrit 27.4 % (42.0-52.0) L Mean Corpuscular Volume 92 FL (80-99) Mean Corpuscular Hemoglobin 30.3 PG (27.0-31.0) Mean Corpuscular Hemoglobin Concent 33.1 G/DL (32.0-36.0) Red Cell Distribution Width 15.1 % (11.6-14.8) H Platelet Count 229 K/UL (150-450) Mean Platelet Volume 6.0 FL (6.5-10.1) L Neutrophils (%) (Auto) % (45.0-75.0) Lymphocytes (%) (Auto) % (20.0-45.0) Monocytes (%) (Auto) % (1.0-10.0) Eosinophils (%) (Auto) % (0.0-3.0) Basophils (%) (Auto) % (0.0-2.0) Differential Total Cells Counted 100 Neutrophils % (Manual) 82 % (45-75) H Lymphocytes % (Manual) 8 % (20-45) L Monocytes % (Manual) 9 % (1-10) Eosinophils % (Manual) 0 % (0-3) Basophils % (Manual) 0 % (0-2) Band Neutrophils 1 % (0-8) Platelet Estimate Adequate Platelet Morphology Normal Anisocytosis 1+ Erythrocyte Sedimentation Rate 95 MM/HR (0-20) H Sodium Level 140 MMOL/L (136-145) Potassium Level 3.1 MMOL/L (3.5-5.1) L Chloride Level 104 MMOL/L (98-107) Carbon Dioxide Level 30 MMOL/L (21-32) Anion Gap 6 mmol/L (5-15) Blood Urea Nitrogen 7 mg/dL (7-18) Creatinine 0.4 MG/DL (0.55-1.30) L Estimat Glomerular Filtration Rate > 60 mL/min (>60) Glucose Level 154 MG/DL (74-106) H Calcium Level 8.4 MG/DL (8.5-10.1) L Phosphorus Level 2.5 MG/DL (2.5-4.9) Magnesium Level 1.7 MG/DL (1.8-2.4) L Total Bilirubin 0.3 MG/DL (0.2-1.0) Aspartate Amino Transf (AST/SGOT) 17 U/L (15-37) Alanine Aminotransferase (ALT/SGPT) 18 U/L (12-78) Alkaline Phosphatase 87 U/L (46-116) C-Reactive Protein, Quantitative 17.0 mg/dL (0.00-0.90) H Total Protein 5.4 G/DL (6.4-8.2) L Albumin 1.9 G/DL (3.4-5.0) L Globulin 3.5 g/dL Albumin/Globulin Ratio 0.5 (1.0-2.7) L Height (Feet): 5 Height (Inches): 10.00 Weight (Pounds): 123 Medications Current Medications Medications (Trade) Dose Ordered Sig/Chace Route PRN Reason Start Time Stop Time Status Last Admin Dose Admin Acetaminophen (Tylenol) 650 mg Q4H PRN ORAL Mild Pain/Temp > 100.5 12/12/18 14:06 01/11/19 14:05 Acetaminophen/ Hydrocodone Bitart (Morley 5/325) 1 tab Q4H PRN ORAL Severe Pain (Pain Scale 7-10) 12/12/18 14:07 12/19/18 14:06 Cefepime HCl 1 gm/ Dextrose 55 ml @ 110 mls/hr EVERY 12 HOURS IVPB 12/12/18 21:00 12/17/18 08:59 Chlorhexidine Gluconate (Susannah-Hex 2%) 1 applic DAILY@2000 TOPIC 12/12/18 20:00 01/09/19 19:59 Dextrose (Dextrose 50%) 25 ml Q30M PRN IV Hypoglycemia 12/12/18 14:30 01/09/19 06:29 Dextrose (Dextrose 50%) 50 ml Q30M PRN IV Hypoglycemia 12/12/18 14:30 01/09/19 06:29 Diltiazem HCl (Cardizem) 60 mg EVERY 6 HOURS ORAL 12/12/18 18:00 01/09/19 17:59 12/12/18 17:19 Divalproex Sodium (Depakote) 500 mg Q12HR ORAL 12/12/18 21:00 01/09/19 20:59 Finasteride (Proscar) 5 mg DAILY@2100 ORAL 12/12/18 21:00 01/09/19 20:59 Heparin Sodium (Porcine) (Heparin 5000 units/ml) 5,000 units EVERY 8 HOURS SUBQ 12/12/18 22:00 01/10/19 21:59 Insulin Aspart (NovoLOG) BEFORE MEALS AND HS SUBQ 12/12/18 16:30 01/09/19 06:29 12/12/18 16:46 Lamotrigine (LaMICtal) 50 mg DAILY ORAL 12/13/18 09:00 01/09/19 08:59 Metronidazole 100 ml @ 100 mls/hr Q8HR@0000,0800,1600 IVPB 12/12/18 16:00 12/17/18 07:59 12/12/18 16:44 Morphine Sulfate (Morphine Sulfate) 4 mg Q6H PRN IVP Severe Pain (Pain Scale 7-10) 12/12/18 14:07 12/19/18 14:06 12/12/18 14:59 Sitagliptin Phosphate (Januvia) 50 mg Q24H ORAL 12/13/18 06:30 01/12/19 06:29 Tamsulosin HCl (Flomax) 0.4 mg BEDTIME ORAL 12/12/18 21:00 01/09/19 20:59 Assessment/Plan Problem List: (1) Lactic acid increased ICD Codes: E87.2 - Acidosis SNOMED: 85249924 (2) Bacteremia ICD Codes: R78.81 - Bacteremia SNOMED: 9419316 (3) Diabetes mellitus ICD Codes: E11.9 - Type 2 diabetes mellitus without complications SNOMED: 39061125 (4) Hypertension ICD Codes: I10 - Essential (primary) hypertension SNOMED: 19361300 (5) Dysphagia ICD Codes: R13.10 - Dysphagia, unspecified SNOMED: 84303327, 982490551 (6) Oligodendroglioma ICD Codes: C71.9 - Malignant neoplasm of brain, unspecified SNOMED: 19439133, 619957873 (7) Sacral decubitus ulcer ICD Codes: L89.159 - Pressure ulcer of sacral region, unspecified stage SNOMED: 657907397 (8) History of CVA (cerebrovascular accident) ICD Codes: Z86.73 - Personal history of transient ischemic attack (TIA), and cerebral infarction without residual deficits SNOMED: 366396346 (9) Severe malnutrition ICD Codes: E43 - Unspecified severe protein-calorie malnutrition SNOMED: 53041887 (10) Anemia ICD Codes: D64.9 - Anemia, unspecified SNOMED: 771258388 (11) PEG (percutaneous endoscopic gastrostomy) adjustment/replacement/removal ICD Codes: Z43.1 - Encounter for attention to gastrostomy SNOMED: 139114650, 142159263 (12) Sepsis ICD Codes: A41.9 - Sepsis, unspecified organism SNOMED: 62309219 Qualifiers: Qualified Codes: A41.9 - Sepsis, unspecified organism (13) Acute encephalopathy ICD Codes: G93.40 - Encephalopathy, unspecified SNOMED: 71799875, 043223838 (14) acute toxic encephalopathy (15) Uncontrolled seizures ICD Codes: R56.9 - Unspecified convulsions SNOMED: 77046590 (16) Tachycardia ICD Codes: R00.0 - Tachycardia, unspecified SNOMED: 3993261 (17) Acute respiratory failure ICD Codes: J96.00 - Acute respiratory failure, unspecified whether with hypoxia or hypercapnia SNOMED: 42319860 (18) UTI (urinary tract infection) ICD Codes: N39.0 - Urinary tract infection, site not specified SNOMED: 74440610, 094056153, 262567505 Qualifiers: Qualified Codes: N39.0 - Urinary tract infection, site not specified; R31.9 - Hematuria, unspecified (19) Hematuria ICD Codes: R31.9 - Hematuria, unspecified SNOMED: 92191785 Status: unchanged Assessment/Plan: Maintain normoglycemia with ISS Na 135-145 HgB>8Maintain SBP<140 Na 135-145 PT Eval w/ oxygen Maintain normothermia with Tylenol Ensure patient has Respiratory therapy/chest physiotherapy Prevent Delirium: Frequently reorient patient Maintain good sleep hygiene by making room dark and quiet at night and minimizing non essential care during evening. Vidya Sun N.P. Dec 12, 2018 22:01
[2018-12-13] VITALS: BP 115/72
[2018-12-13] MEDS: dilTIAZem HCl 60mg tab ORAL SCH ×4 (00:34→17:15)
[2018-12-13 04:00] VITALS: BP 109/75
[2018-12-13] MEDS: sitaGLIPtin 50mg tab ORAL SCH (06:08)
[2018-12-13] MEDS: NovoLOG Insulin Flexpen SUBQ SCH ×4 (06:11→20:32)
[2018-12-13] MEDS: Heparin 5000 units/ml inj SUBQ SCH ×3 (06:12→21:13)
--- NOTE | 2018-12-13 07:17 | NUR ---
HAND-OFF: Report given to CHIDI Kerr.
[2018-12-13 07:22] LABS: HEMOGLOBIN 10.1 G/DL (14.2-18.0); MEAN CORPUSCULAR VOLUME 92 FL (80-99); PLATELET COUNT 231 K/UL (150-450); RED BLOOD COUNT 3.37 M/UL (4.70-6.10); RED CELL DISTRIBUTION WIDTH 15.3 % (11.6-14.8); WHITE BLOOD COUNT 19.4 K/UL (4.8-10.8)
--- NOTE | 2018-12-13 07:27 | NUR ---
NURSE NOTES: Received report from CHIDI Park. Patient in bed resting, no active s/s cardiac, respiratory distress noticed at this time. Patient on 2L oxygen via NC, AOx1, ST with HR 122. Patient on bilateral soft restraints, cap refill <3 sec, able to move, Mota Catheter draining well to gravity, G-tube feeding, running as prescribed, 20ml residual, HOB elevated. IV on left hand 20G, asymptomatic, patent, intact, PICC line on left upper arm, asymptomatic, patent, intact. Bed in lowest position, on air mattress, side rails upx3, call light within reach. Will continue to monitor.
[2018-12-13 07:36] LABS: ALANINE AMINOTRANSFERASE 11 U/L (12-78); ALBUMIN 1.9 G/DL (3.4-5.0); ALBUMIN/GLOBULIN RATIO 0.5 (1.0-2.7); ALKALINE PHOSPHATASE 90 U/L (46-116); ANION GAP 7 mmol/L (5-15); ASPARTATE AMINO TRANSFERASE 15 U/L (15-37); BILIRUBIN,TOTAL 0.2 MG/DL (0.2-1.0); BLOOD UREA NITROGEN 8 mg/dL (7-18); CALCIUM 8.6 MG/DL (8.5-10.1); CARBON DIOXIDE 32 MMOL/L (21-32); CHLORIDE 100 MMOL/L (98-107); CREATININE 0.5 MG/DL (0.55-1.30); PHOSPHORUS 2.1 MG/DL (2.5-4.9); POTASSIUM 3.9 MMOL/L (3.5-5.1); SODIUM 139 MMOL/L (136-145)
[2018-12-13 08:00] VITALS: BP 124/78
--- NOTE | 2018-12-13 08:26 | Infectious Diseases Prog Note ---
Assessment/Plan Assessment/Plan 68 yo male who was recently admitted 11/12/18 - 11/17/18 with PNA, UTI and sacral OM. Now returning with Fever and hematuria Sepsis - Urosepsis Likely Secondary to UTI UCx 12/10/18 - E. coli Blood Cx 12/10/18 - E .coli UCx 11/10/18 - P.a. 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 No contrast enhancement to suggest recurrent tumor is evident currently. There is evidence of old peripheral hemorrhage, presumably related to the prior surgery. 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 Negative for acute intracranial bleed, mass effect, infarct, or contrast enhancing lesion. 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 We will continue to follow the patient during this hospitalization. Subjective Allergies: Coded Allergies: No Known Allergies (Unverified , 09/27/18) Subjective Blood and Urine Cx growing E. coli No Afebrile WBCs not checked today Objective Vital Signs Last 24 Hour Vital Signs Date Time Temp Pulse Resp B/P (MAP) Pulse Ox O2 Delivery O2 Flow Rate FiO2 12/13/18 06:09 122 109/75 12/13/18 04:00 Nasal Cannula 2.0 12/13/18 04:00 122 12/13/18 04:00 97.1 111 18 109/75 (86) 97 12/13/18 00:34 123 115/72 12/13/18 00:00 98.0 123 19 115/72 (86) 99 12/13/18 00:00 Nasal Cannula 2.0 12/13/18 00:00 119 12/12/18 20:00 98.3 109 19 111/71 (84) 96 12/12/18 20:00 Nasal Cannula 2.0 12/12/18 20:00 105 12/12/18 17:19 112 103/70 12/12/18 16:00 98.7 112 19 103/70 (81) 96 12/12/18 16:00 106 12/12/18 16:00 Nasal Cannula 2.0 12/12/18 12:00 97.3 103 18 104/64 (77) 97 12/12/18 12:00 103 12/12/18 12:00 Nasal Cannula 2.0 12/12/18 11:48 109 110/71 Height (Feet): 5 Height (Inches): 10.00 Weight (Pounds): 123 Objective Gen: NAD on NC HEENT: NCAT, MMM, EOMI LUNGS: CTAB, No W CARDS: RRR, S1, S2 ABD: Soft, NT, ND, PEG ( No e/p) Laboratory Tests Test 12/13/18 06:15 White Blood Count 19.4 K/UL (4.8-10.8) #H Red Blood Count 3.37 M/UL (4.70-6.10) L Hemoglobin 10.1 G/DL (14.2-18.0) L Hematocrit 31.0 % (42.0-52.0) L Mean Corpuscular Volume 92 FL (80-99) Mean Corpuscular Hemoglobin 29.8 PG (27.0-31.0) Mean Corpuscular Hemoglobin Concent 32.4 G/DL (32.0-36.0) Red Cell Distribution Width 15.3 % (11.6-14.8) H Platelet Count 231 K/UL (150-450) Mean Platelet Volume 6.3 FL (6.5-10.1) L Neutrophils (%) (Auto) % (45.0-75.0) Lymphocytes (%) (Auto) % (20.0-45.0) Monocytes (%) (Auto) % (1.0-10.0) Eosinophils (%) (Auto) % (0.0-3.0) Basophils (%) (Auto) % (0.0-2.0) Neutrophils % (Manual) Pending Lymphocytes % (Manual) Pending Platelet Estimate Pending Platelet Morphology Pending Sodium Level 139 MMOL/L (136-145) Potassium Level 3.9 MMOL/L (3.5-5.1) Chloride Level 100 MMOL/L (98-107) Carbon Dioxide Level 32 MMOL/L (21-32) Anion Gap 7 mmol/L (5-15) Blood Urea Nitrogen 8 mg/dL (7-18) Creatinine 0.5 MG/DL (0.55-1.30) L Estimat Glomerular Filtration Rate > 60 mL/min (>60) Glucose Level 187 MG/DL (74-106) H Calcium Level 8.6 MG/DL (8.5-10.1) Phosphorus Level 2.1 MG/DL (2.5-4.9) L Magnesium Level 1.6 MG/DL (1.8-2.4) L Total Bilirubin 0.2 MG/DL (0.2-1.0) Aspartate Amino Transf (AST/SGOT) 15 U/L (15-37) Alanine Aminotransferase (ALT/SGPT) 11 U/L (12-78) L Alkaline Phosphatase 90 U/L (46-116) Total Protein 5.7 G/DL (6.4-8.2) L Albumin 1.9 G/DL (3.4-5.0) L Globulin 3.8 g/dL Albumin/Globulin Ratio 0.5 (1.0-2.7) L Current Medications Medications (Trade) Dose Ordered Sig/Chace Route PRN Reason Start Time Stop Time Status Last Admin Dose Admin Acetaminophen (Tylenol) 650 mg Q4H PRN ORAL Mild Pain/Temp > 100.5 12/12/18 14:06 01/11/19 14:05 Acetaminophen/ Hydrocodone Bitart ([place] 5/325) 1 tab Q4H PRN ORAL Severe Pain (Pain Scale 7-10) 12/12/18 14:07 12/19/18 14:06 Cefepime HCl 1 gm/ Dextrose 55 ml @ 110 mls/hr EVERY 12 HOURS IVPB 12/12/18 21:00 12/17/18 08:59 12/12/18 22:04 Chlorhexidine Gluconate (Susannah-Hex 2%) 1 applic DAILY@2000 TOPIC 12/12/18 20:00 01/09/19 19:59 12/12/18 21:57 Dextrose (Dextrose 50%) 25 ml Q30M PRN IV Hypoglycemia 12/12/18 14:30 01/09/19 06:29 Dextrose (Dextrose 50%) 50 ml Q30M PRN IV Hypoglycemia 12/12/18 14:30 01/09/19 06:29 Diltiazem HCl (Cardizem) 60 mg EVERY 6 HOURS ORAL 12/12/18 18:00 01/09/19 17:59 12/13/18 06:09 Divalproex Sodium (Depakote) 500 mg Q12HR ORAL 12/12/18 21:00 01/09/19 20:59 12/12/18 21:58 Finasteride (Proscar) 5 mg DAILY@2100 ORAL 12/12/18 21:00 01/09/19 20:59 12/12/18 21:58 Heparin Sodium (Porcine) (Heparin 5000 units/ml) 5,000 units EVERY 8 HOURS SUBQ 12/12/18 22:00 01/10/19 21:59 12/13/18 06:12 Insulin Aspart (NovoLOG) BEFORE MEALS AND HS SUBQ 12/12/18 16:30 01/09/19 06:29 12/13/18 06:11 Lamotrigine (LaMICtal) 50 mg DAILY ORAL 12/13/18 09:00 01/09/19 08:59 Metronidazole 100 ml @ 100 mls/hr Q8HR@0000,0800,1600 IVPB 12/12/18 16:00 12/17/18 07:59 12/13/18 00:33 Morphine Sulfate (Morphine Sulfate) 4 mg Q6H PRN IVP Severe Pain (Pain Scale 7-10) 12/12/18 14:07 12/19/18 14:06 12/12/18 14:59 Sitagliptin Phosphate (Januvia) 50 mg Q24H ORAL 12/13/18 06:30 01/12/19 06:29 12/13/18 06:08 Tamsulosin HCl (Flomax) 0.4 mg BEDTIME ORAL 12/12/18 21:00 01/09/19 20:59 12/12/18 21:58 Ramon Blanca MD Dec 13, 2018 08:25
[2018-12-13] MEDS: Cefepime HCl 1 GM in D5W 55 ML IVPB SCH (08:46)
--- NOTE | 2018-12-13 09:10 | NUR ---
NURSE NOTES: Per Dr. Feng, change Depakote 500mg PO to Depakote sprinkles via G-tube. Order noted, entered, carried out. Dr. Blanca at the bedside, made aware of WBC level today 19.4. No order given at this time. Will continue to monitor.
[2018-12-13] MEDS ORDERED: Depakote 125mg Sprinkles GT SCH (09:30)
[2018-12-13] MEDS: cefTRIAXone 2 GM in D5W 55 ML IVPB SCH (09:46)
[2018-12-13 12:00] VITALS: BP 117/78
--- NOTE | 2018-12-13 12:29 | NUR ---
NURSE NOTES: Dr. Feng made aware Mg level 1.6 today, Per Dr. Feng, Mg sulfate 2g IV times one.
--- NOTE | 2018-12-13 13:03 | Surgery Progress Note ---
Surgery Progress Note Subjective Additional Comments Patient tachycardic, low-grade fevers, leukocytosis 19,000, bandemia of 10 started on IV antibiotics as per infectious disease Objective Last 24 Hour Vital Signs Date Time Temp Pulse Resp B/P (MAP) Pulse Ox O2 Delivery O2 Flow Rate FiO2 12/13/18 12:40 123 117/78 12/13/18 12:00 99.2 123 20 117/78 (91) 99 12/13/18 12:00 Nasal Cannula 2.0 12/13/18 08:00 Nasal Cannula 2.0 12/13/18 08:00 122 12/13/18 08:00 99.4 125 22 124/78 (93) 98 12/13/18 06:09 122 109/75 12/13/18 04:00 Nasal Cannula 2.0 12/13/18 04:00 122 12/13/18 04:00 97.1 111 18 109/75 (86) 97 12/13/18 00:34 123 115/72 12/13/18 00:00 98.0 123 19 115/72 (86) 99 12/13/18 00:00 Nasal Cannula 2.0 12/13/18 00:00 119 12/12/18 20:00 98.3 109 19 111/71 (84) 96 12/12/18 20:00 Nasal Cannula 2.0 12/12/18 20:00 105 12/12/18 17:19 112 103/70 12/12/18 16:00 98.7 112 19 103/70 (81) 96 12/12/18 16:00 106 12/12/18 16:00 Nasal Cannula 2.0 I&O Intake and Output 12/12/18 12/13/18 19:00 07:00 Intake Total 655 ml Output Total 1100 ml 1500 ml Balance -445 ml -1500 ml Free Water 100 ml IV Total 155 ml Tube Feeding 400 ml Output Urine Total 1100 ml 1500 ml Dressing: saturated Wound: other Drains: other Cardiovascular: RSR Respiratory: decreased breath sounds Abdomen: soft, non-tender, present bowel sounds, non-distended Extremities: no cyanosis, other Laboratory Tests Test 12/13/18 06:15 White Blood Count 19.4 K/UL (4.8-10.8) #H Red Blood Count 3.37 M/UL (4.70-6.10) L Hemoglobin 10.1 G/DL (14.2-18.0) L Hematocrit 31.0 % (42.0-52.0) L Mean Corpuscular Volume 92 FL (80-99) Mean Corpuscular Hemoglobin 29.8 PG (27.0-31.0) Mean Corpuscular Hemoglobin Concent 32.4 G/DL (32.0-36.0) Red Cell Distribution Width 15.3 % (11.6-14.8) H Platelet Count 231 K/UL (150-450) Mean Platelet Volume 6.3 FL (6.5-10.1) L Neutrophils (%) (Auto) % (45.0-75.0) Lymphocytes (%) (Auto) % (20.0-45.0) Monocytes (%) (Auto) % (1.0-10.0) Eosinophils (%) (Auto) % (0.0-3.0) Basophils (%) (Auto) % (0.0-2.0) Differential Total Cells Counted 100 Neutrophils % (Manual) 80 % (45-75) H Lymphocytes % (Manual) 4 % (20-45) L Monocytes % (Manual) 5 % (1-10) Eosinophils % (Manual) 1 % (0-3) Basophils % (Manual) 0 % (0-2) Band Neutrophils 10 % (0-8) H Platelet Estimate Adequate Platelet Morphology Normal Anisocytosis 1+ Sodium Level 139 MMOL/L (136-145) Potassium Level 3.9 MMOL/L (3.5-5.1) Chloride Level 100 MMOL/L (98-107) Carbon Dioxide Level 32 MMOL/L (21-32) Anion Gap 7 mmol/L (5-15) Blood Urea Nitrogen 8 mg/dL (7-18) Creatinine 0.5 MG/DL (0.55-1.30) L Estimat Glomerular Filtration Rate > 60 mL/min (>60) Glucose Level 187 MG/DL (74-106) H Calcium Level 8.6 MG/DL (8.5-10.1) Phosphorus Level 2.1 MG/DL (2.5-4.9) L Magnesium Level 1.6 MG/DL (1.8-2.4) L Total Bilirubin 0.2 MG/DL (0.2-1.0) Aspartate Amino Transf (AST/SGOT) 15 U/L (15-37) Alanine Aminotransferase (ALT/SGPT) 11 U/L (12-78) L Alkaline Phosphatase 90 U/L (46-116) Total Protein 5.7 G/DL (6.4-8.2) L Albumin 1.9 G/DL (3.4-5.0) L Globulin 3.8 g/dL Albumin/Globulin Ratio 0.5 (1.0-2.7) L Plan Problems: (1) Lactic acid increased (2) Diabetes mellitus (3) Hypertension (4) Dysphagia (5) Oligodendroglioma (6) Sacral decubitus ulcer Assessment & Plan: Pt presented on admission with full thickness sacral pressure injury with undermining and bone visible at base of wound.Base of wound 90% granular with an area of 10% loose slough noted at undermined area at 11-12o'clock. Wound is malodorous. Small amt. brown exudate noted. Dark brown borders noted. (L)8.5cm x (W)7cm x (D)1.9cm undermining 9-5 by 3.5cm @9o'clock. Bilat groin areas and scrotum erythematous. Non-blanchable erythema without fluctuance noted to R heel and plantar R heel. Non-blanchable erythema without fluctuance noted to L heel. Tx.Plan: Cleanse sacral wound with Saline. Loosely pack with Hydrogel infused Kerlix. Apply Moisture Barrier periwound. Cover with Optifoam.Change Twice Daily and PRN. Apply Moisture Barrier Paste to Bilat groin areas and Scrotum with each Incontinence care. Apply Cavilon Skin Barrier to both Heels. Cover each heel with Optifoam drsg. Change every 7 days and prn. Air Fluidized Mattress. Reposition at least every 2hours or as tolerated. Position with Pillow between knees. Off-load heels with Pillow. (7) History of CVA (cerebrovascular accident) (8) Severe malnutrition Assessment & Plan: DAILY ESTIMATED NEEDS: Needs based on wound, wasting, DM / 59kg 30-35 kcals/kg 4133-8213 total kcals 1.25-2 g protein/kg 74-118 g total protein 25-30 mL/kg 0893-1779 total fluid mLs NUTRITION DIAGNOSIS: * Increased kcal/prot needs R/T wound healing, wt loss as evidenced by recent history of sacral stage 4 wound, severe BL LE wasting, 91% [place] Body Weight. month. * Swallowing difficulty R/T dysphagia w/ h/o brain tumor and CVA as evidenced by s/p recent PEG placement, pending GT feeding. (CURRENT TF:Glytrol @45) ENTERAL NUTRITION RECOMMENDATIONS: Glucerna 1.5 @ 50ml/hr x 24 hrs to provide 1200ml, 1800kcal, 99g prot, 911ml free water * Start @30ml/hr, advance as tolerated 10ml/hr q4-6 hrs to goal * HOB over 30 degrees/ water flush per MD ------ ADDITIONAL RECOMMENDATIONS: * Calibrated bedscale wt for accurate CBW * Check lytes daily w/ TF, replete as needed * Wound healing: Ziyad 1pkt BID F/up w/ WC eval * Monitor BGs closely, need for tighter regimen (BGs in the 200's) -> consider long acting insulin (9) Anemia (10) PEG (percutaneous endoscopic gastrostomy) adjustment/replacement/removal (11) Sepsis Assessment & Plan: leukocytosis 19k with bands anemia lactic acidosis - resolved on IV abx as per ID improving wounds unlikely etiology as chronic no acute infection noted in wounds will monitor (12) Acute encephalopathy (13) acute toxic encephalopathy (14) Uncontrolled seizures (15) Tachycardia (16) Acute respiratory failure (17) UTI (urinary tract infection) (18) Hematuria Harry Rivas Dec 13, 2018 13:03
[2018-12-13] MEDS ORDERED: Sterile Water Irrig 1000ml IRRIG ONE (13:14)
[2018-12-13] MEDS ORDERED: NS 275ml ONE ×2 (13:14→15:57)
[2018-12-13] MEDS ORDERED: Tubing IV Secondary IV ONE (13:14)
--- NOTE | 2018-12-13 13:59 | Internal Med Progress Note ---
Subjective Date of Service: Dec 13, 2018 Physician Name KiddJesus Attending Physician Camacho Braun MD Current Medications Medications (Trade) Dose Ordered Sig/Chace Route PRN Reason Start Time Stop Time Status Last Admin Dose Admin Acetaminophen (Tylenol) 650 mg Q4H PRN ORAL Mild Pain/Temp > 100.5 12/12/18 14:06 01/11/19 14:05 Acetaminophen/ Hydrocodone Bitart ([place] 5/325) 1 tab Q4H PRN ORAL Severe Pain (Pain Scale 7-10) 12/12/18 14:07 12/19/18 14:06 Ceftriaxone Sodium 2 gm/ Dextrose 55 ml @ 110 mls/hr DAILY IVPB 12/13/18 10:00 12/20/18 09:59 12/13/18 09:46 Chlorhexidine Gluconate (Susannah-Hex 2%) 1 applic DAILY@2000 TOPIC 12/12/18 20:00 01/09/19 19:59 12/12/18 21:57 Dextrose (Dextrose 50%) 25 ml Q30M PRN IV Hypoglycemia 12/12/18 14:30 01/09/19 06:29 Dextrose (Dextrose 50%) 50 ml Q30M PRN IV Hypoglycemia 12/12/18 14:30 01/09/19 06:29 Diltiazem HCl (Cardizem) 60 mg EVERY 6 HOURS ORAL 12/12/18 18:00 01/09/19 17:59 12/13/18 12:40 Divalproex Sodium (Depakote Sprinkles) 500 mg Q12HR GT 12/13/18 21:00 01/12/19 20:59 Finasteride (Proscar) 5 mg DAILY@2100 ORAL 12/12/18 21:00 01/09/19 20:59 12/12/18 21:58 Heparin Sodium (Porcine) (Heparin 5000 units/ml) 5,000 units EVERY 8 HOURS SUBQ 12/12/18 22:00 01/10/19 21:59 12/13/18 06:12 Insulin Aspart (NovoLOG) BEFORE MEALS AND HS SUBQ 12/12/18 16:30 01/09/19 06:29 12/13/18 12:41 Lamotrigine (LaMICtal) 50 mg DAILY ORAL 12/13/18 09:00 01/09/19 08:59 12/13/18 08:28 Magnesium Sulfate 100 ml @ 100 mls/hr Q1H IVPB 12/13/18 13:00 12/13/18 14:59 12/13/18 12:40 Morphine Sulfate (Morphine Sulfate) 4 mg Q6H PRN IVP Severe Pain (Pain Scale 7-10) 12/12/18 14:07 12/19/18 14:06 12/12/18 14:59 Sitagliptin Phosphate (Januvia) 50 mg Q24H ORAL 12/13/18 06:30 01/12/19 06:29 12/13/18 06:08 Tamsulosin HCl (Flomax) 0.4 mg BEDTIME ORAL 12/12/18 21:00 01/09/19 20:59 12/12/18 21:58 Allergies: Coded Allergies: No Known Allergies (Unverified , 09/27/18) ROS Limited/Unobtainable: No Constitutional: Reports: no symptoms HEENT: Reports: no symptoms Cardiovascular: Reports: no symptoms Respiratory: Reports: no symptoms Gastrointestinal/Abdominal: Reports: no symptoms Genitourinary: Reports: no symptoms Neurologic/Psychiatric: Reports: no symptoms Subjective 68 YO M admitted with hematuria and fever, Now UTI and sepsis. Cover for Int gage-Dr Braun Objective Last Vital Signs Date Time Temp Pulse Resp B/P (MAP) Pulse Ox O2 Delivery O2 Flow Rate FiO2 12/13/18 12:40 123 117/78 12/13/18 12:00 99.2 20 99 12/13/18 12:00 Nasal Cannula 2.0 12/12/18 02:30 21 Laboratory Tests Test 12/13/18 06:15 White Blood Count 19.4 K/UL (4.8-10.8) #H Red Blood Count 3.37 M/UL (4.70-6.10) L Hemoglobin 10.1 G/DL (14.2-18.0) L Hematocrit 31.0 % (42.0-52.0) L Mean Corpuscular Volume 92 FL (80-99) Mean Corpuscular Hemoglobin 29.8 PG (27.0-31.0) Mean Corpuscular Hemoglobin Concent 32.4 G/DL (32.0-36.0) Red Cell Distribution Width 15.3 % (11.6-14.8) H Platelet Count 231 K/UL (150-450) Mean Platelet Volume 6.3 FL (6.5-10.1) L Neutrophils (%) (Auto) % (45.0-75.0) Lymphocytes (%) (Auto) % (20.0-45.0) Monocytes (%) (Auto) % (1.0-10.0) Eosinophils (%) (Auto) % (0.0-3.0) Basophils (%) (Auto) % (0.0-2.0) Differential Total Cells Counted 100 Neutrophils % (Manual) 80 % (45-75) H Lymphocytes % (Manual) 4 % (20-45) L Monocytes % (Manual) 5 % (1-10) Eosinophils % (Manual) 1 % (0-3) Basophils % (Manual) 0 % (0-2) Band Neutrophils 10 % (0-8) H Platelet Estimate Adequate Platelet Morphology Normal Anisocytosis 1+ Sodium Level 139 MMOL/L (136-145) Potassium Level 3.9 MMOL/L (3.5-5.1) Chloride Level 100 MMOL/L (98-107) Carbon Dioxide Level 32 MMOL/L (21-32) Anion Gap 7 mmol/L (5-15) Blood Urea Nitrogen 8 mg/dL (7-18) Creatinine 0.5 MG/DL (0.55-1.30) L Estimat Glomerular Filtration Rate > 60 mL/min (>60) Glucose Level 187 MG/DL (74-106) H Calcium Level 8.6 MG/DL (8.5-10.1) Phosphorus Level 2.1 MG/DL (2.5-4.9) L Magnesium Level 1.6 MG/DL (1.8-2.4) L Total Bilirubin 0.2 MG/DL (0.2-1.0) Aspartate Amino Transf (AST/SGOT) 15 U/L (15-37) Alanine Aminotransferase (ALT/SGPT) 11 U/L (12-78) L Alkaline Phosphatase 90 U/L (46-116) Total Protein 5.7 G/DL (6.4-8.2) L Albumin 1.9 G/DL (3.4-5.0) L Globulin 3.8 g/dL Albumin/Globulin Ratio 0.5 (1.0-2.7) L Intake and Output 12/12/18 12/13/18 19:00 07:00 Intake Total 655 ml Output Total 1100 ml 1500 ml Balance -445 ml -1500 ml Free Water 100 ml IV Total 155 ml Tube Feeding 400 ml Output Urine Total 1100 ml 1500 ml Objective PHYSICAL EXAMINATION: GENERAL: The patient is a well-developed and well-nourished thin-appearing male, in no apparent distress. HEENT: Eyes, pupils are equal and responsive to light and accommodation. Extraocular movements are intact. NECK: Supple without lymphadenopathy. CHEST: Lungs are clear to auscultation bilaterally without wheezes or rales. CARDIOVASCULAR: Regular rhythm and rate. S1 and S2 are normal without murmurs, rubs, or gallops. ABDOMEN: Soft, nontender, and nondistended. Positive bowel sounds. No evidence of hepatosplenomegaly. Currently, no rebound or guarding noted. EXTREMITIES: Negative for clubbing, cyanosis, or edema. RECTAL/GENITAL: Not performed. NEUROLOGIC: Cranial nerves II through XII are grossly intact without focal deficits. Assessment/Plan Assessment/Plan ASSESSMENT: This is a 68-year-old male. 1. Fever. 2. Hematuria. 3. Leukocytosis. 4. Brain cancer. 5. Seizure disorder. 6. Diabetes type 2. 7. Cerebrovascular disease. 8. Right hemiparesis. 9. Hypertension. 10. Coronary artery disease. 11. Expressive aphasia. 12. Urinary tract infection=E. Coli 13. Sepsis=E. Coli TREATMENT: 1. Fever/hematuria/leukocytosis, may be secondary to urinary tract infection versus sepsis. Urine culture is pending. The patient has been started empirically on intravenous cefepime. Await urine culture results. 2. Brain cancer. 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 3. Seizure disorder. Continue Depakote and Vimpat as above. 4. Diabetes type 2. NovoLog sliding scale has been instituted. 5. Cerebrovascular disease/right hemiparesis. 6. Hypertension. 7. Coronary artery disease. 8. Expressive aphasia. 9. aBX=ceftriaxone Jesus Kidd MD Dec 13, 2018 13:59
--- NOTE | 2018-12-13 13:59 | Pulmonology Progress Note ---
Assessment/Plan Problems: (1) Bacteremia (2) Sepsis (3) Acute encephalopathy (4) Hematuria (5) Oligodendroglioma (6) Severe malnutrition (7) Diabetes mellitus (8) Hypertension (9) History of CVA (cerebrovascular accident) (10) Sacral decubitus ulcer Assessment/Plan looks better heart rate still tachy, sinus rhythm now wbc decreasing continue abx check electrolytes no more seizure tolerating feeding Subjective ROS Limited/Unobtainable: No Constitutional: Reports: no symptoms HEENT: Repors: no symptoms Respiratory: Reports: no symptoms Cardiovascular: Reports: no symptoms Gastrointestinal/Abdominal: Reports: no symptoms Genitourinary: Reports: no symptoms Allergies: Coded Allergies: No Known Allergies (Unverified , 09/27/18) Objective Last 24 Hour Vital Signs Date Time Temp Pulse Resp B/P (MAP) Pulse Ox O2 Delivery O2 Flow Rate FiO2 12/13/18 12:40 123 117/78 12/13/18 12:00 118 12/13/18 12:00 99.2 123 20 117/78 (91) 99 12/13/18 12:00 Nasal Cannula 2.0 12/13/18 08:00 Nasal Cannula 2.0 12/13/18 08:00 122 12/13/18 08:00 99.4 125 22 124/78 (93) 98 12/13/18 06:09 122 109/75 12/13/18 04:00 Nasal Cannula 2.0 12/13/18 04:00 122 12/13/18 04:00 97.1 111 18 109/75 (86) 97 12/13/18 00:34 123 115/72 12/13/18 00:00 98.0 123 19 115/72 (86) 99 12/13/18 00:00 Nasal Cannula 2.0 12/13/18 00:00 119 12/12/18 20:00 98.3 109 19 111/71 (84) 96 12/12/18 20:00 Nasal Cannula 2.0 12/12/18 20:00 105 12/12/18 17:19 112 103/70 12/12/18 16:00 98.7 112 19 103/70 (81) 96 12/12/18 16:00 106 12/12/18 16:00 Nasal Cannula 2.0 Intake and Output 12/12/18 12/13/18 19:00 07:00 Intake Total 655 ml Output Total 1100 ml 1500 ml Balance -445 ml -1500 ml Free Water 100 ml IV Total 155 ml Tube Feeding 400 ml Output Urine Total 1100 ml 1500 ml General Appearance: cachetic HEENT: normocephalic, atraumatic Respiratory/Chest: chest wall non-tender, lungs clear, normal breath sounds Cardiovascular: normal peripheral pulses, normal rate Abdomen: normal bowel sounds, soft, non tender Skin: no ulcers 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, abnormal gait Lymphatic: no neck adenopathy Laboratory Tests 12/13/18 06:15: White Blood Count 19.4#H, Red Blood Count 3.37L, Hemoglobin 10.1L, Hematocrit 31.0L, Mean Corpuscular Volume 92, Mean Corpuscular Hemoglobin 29.8, Mean Corpuscular Hemoglobin Concent 32.4, Red Cell Distribution Width 15.3H, Platelet Count 231, Mean Platelet Volume 6.3L, Neutrophils (%) (Auto) , Lymphocytes (%) (Auto) , Monocytes (%) (Auto) , Eosinophils (%) (Auto) , Basophils (%) (Auto) , Differential Total Cells Counted 100, Neutrophils % ( Manual) 80H, Lymphocytes % (Manual) 4L, Monocytes % (Manual) 5, Eosinophils % ( Manual) 1, Basophils % (Manual) 0, Band Neutrophils 10H, Platelet Estimate Adequate, Platelet Morphology Normal, Anisocytosis 1+, Sodium Level 139, Potassium Level 3.9, Chloride Level 100, Carbon Dioxide Level 32, Anion Gap 7, Blood Urea Nitrogen 8, Creatinine 0.5L, Estimat Glomerular Filtration Rate > 60 , Glucose Level 187H, Calcium Level 8.6, Phosphorus Level 2.1L, Magnesium Level 1.6L, Total Bilirubin 0.2, Aspartate Amino Transf (AST/SGOT) 15, Alanine Aminotransferase (ALT/SGPT) 11L, Alkaline Phosphatase 90, Total Protein 5.7L, Albumin 1.9L, Globulin 3.8, Albumin/Globulin Ratio 0.5L Current Medications Medications (Trade) Dose Ordered Sig/Chace Route PRN Reason Start Time Stop Time Status Last Admin Dose Admin Acetaminophen (Tylenol) 650 mg Q4H PRN ORAL Mild Pain/Temp > 100.5 12/12/18 14:06 01/11/19 14:05 Acetaminophen/ Hydrocodone Bitart ([place] 5/325) 1 tab Q4H PRN ORAL Severe Pain (Pain Scale 7-10) 12/12/18 14:07 12/19/18 14:06 Ceftriaxone Sodium 2 gm/ Dextrose 55 ml @ 110 mls/hr DAILY IVPB 12/13/18 10:00 12/20/18 09:59 12/13/18 09:46 Chlorhexidine Gluconate ([place]-Hex 2%) 1 applic DAILY@2000 TOPIC 12/12/18 20:00 01/09/19 19:59 12/12/18 21:57 Dextrose (Dextrose 50%) 25 ml Q30M PRN IV Hypoglycemia 12/12/18 14:30 01/09/19 06:29 Dextrose (Dextrose 50%) 50 ml Q30M PRN IV Hypoglycemia 12/12/18 14:30 01/09/19 06:29 Diltiazem HCl (Cardizem) 60 mg EVERY 6 HOURS ORAL 12/12/18 18:00 01/09/19 17:59 12/13/18 12:40 Divalproex Sodium (Depakote Sprinkles) 500 mg Q12HR GT 12/13/18 21:00 01/12/19 20:59 Finasteride (Proscar) 5 mg DAILY@2100 ORAL 12/12/18 21:00 01/09/19 20:59 12/12/18 21:58 Heparin Sodium (Porcine) (Heparin 5000 units/ml) 5,000 units EVERY 8 HOURS SUBQ 12/12/18 22:00 01/10/19 21:59 12/13/18 06:12 Insulin Aspart (NovoLOG) BEFORE MEALS AND HS SUBQ 12/12/18 16:30 01/09/19 06:29 12/13/18 12:41 Lamotrigine (LaMICtal) 50 mg DAILY ORAL 12/13/18 09:00 01/09/19 08:59 12/13/18 08:28 Magnesium Sulfate 100 ml @ 100 mls/hr Q1H IVPB 12/13/18 13:00 12/13/18 14:59 12/13/18 12:40 Morphine Sulfate (Morphine Sulfate) 4 mg Q6H PRN IVP Severe Pain (Pain Scale 7-10) 12/12/18 14:07 12/19/18 14:06 12/12/18 14:59 Sitagliptin Phosphate (Januvia) 50 mg Q24H ORAL 12/13/18 06:30 01/12/19 06:29 12/13/18 06:08 Tamsulosin HCl (Flomax) 0.4 mg BEDTIME ORAL 12/12/18 21:00 01/09/19 20:59 12/12/18 21:58 Raul Feng MD Dec 13, 2018 13:59
--- NOTE | 2018-12-13 14:07 | NUR ---
NURSE NOTES: Dr. Feng at the nursing station, clarified with MD regarding Heparin SQ, per Dr. Feng, okay to give heparin since hematuria resolved.
[2018-12-13 16:00] VITALS: BP 120/77
--- NOTE | 2018-12-13 19:07 | NUR ---
HAND-OFF: Report given to CHIDI San.
--- NOTE | 2018-12-13 19:15 | NUR ---
NURSE NOTES: Received report from CHIDI Kerr. Patient in bed awake showing no signs of acute distress. AOx2. Cardiac rhythm showing ST. Respiration even and non labored on 2L NC 02. No SOB noted. PICC line at is patent and intact, TKO. no signs of infection. IV on left hand 20g patent and intact SL. Bilateral soft wrist restraints are on, cap refill <3sec. Pt. on air mattress for sacral stage 4 press. ulcer. Optifoam dressing intact. Mota cath patent and intact, draining. Urine Clear yellow noted. Bed in lowest position, wheels locked, and alarm on. All needs attended and met. Will continue plan of care.
[2018-12-13 20:00] VITALS: BP 119/81
[2018-12-13] MEDS: Dyna-Hex 2% Top Sol 2oz TOPIC SCH (20:29)
[2018-12-13] MEDS: Tamsulosin 0.4mg cap ORAL SCH (20:30)
[2018-12-13] MEDS: Depakote 125mg Sprinkles GT SCH (20:30)
--- NOTE | 2018-12-13 23:20 | Neurology Progress Note ---
Interim History Interim History ROS Limited/Unobtainable: No Complaints: AMS Interim History This visit was performed on December 12, [address] Denis Dias. Review of Systems All Systems: reviewed and negative except above Objective Physical Exam Last Vital Signs Date Time Temp Pulse Resp B/P (MAP) Pulse Ox O2 Delivery O2 Flow Rate FiO2 12/13/18 20:00 Nasal Cannula 2.0 12/13/18 20:00 97.7 118 18 119/81 (94) 98 12/12/18 02:30 21 Laboratory Tests Test 12/13/18 06:15 White Blood Count 19.4 K/UL (4.8-10.8) #H Red Blood Count 3.37 M/UL (4.70-6.10) L Hemoglobin 10.1 G/DL (14.2-18.0) L Hematocrit 31.0 % (42.0-52.0) L Mean Corpuscular Volume 92 FL (80-99) Mean Corpuscular Hemoglobin 29.8 PG (27.0-31.0) Mean Corpuscular Hemoglobin Concent 32.4 G/DL (32.0-36.0) Red Cell Distribution Width 15.3 % (11.6-14.8) H Platelet Count 231 K/UL (150-450) Mean Platelet Volume 6.3 FL (6.5-10.1) L Neutrophils (%) (Auto) % (45.0-75.0) Lymphocytes (%) (Auto) % (20.0-45.0) Monocytes (%) (Auto) % (1.0-10.0) Eosinophils (%) (Auto) % (0.0-3.0) Basophils (%) (Auto) % (0.0-2.0) Differential Total Cells Counted 100 Neutrophils % (Manual) 80 % (45-75) H Lymphocytes % (Manual) 4 % (20-45) L Monocytes % (Manual) 5 % (1-10) Eosinophils % (Manual) 1 % (0-3) Basophils % (Manual) 0 % (0-2) Band Neutrophils 10 % (0-8) H Platelet Estimate Adequate Platelet Morphology Normal Anisocytosis 1+ Sodium Level 139 MMOL/L (136-145) Potassium Level 3.9 MMOL/L (3.5-5.1) Chloride Level 100 MMOL/L (98-107) Carbon Dioxide Level 32 MMOL/L (21-32) Anion Gap 7 mmol/L (5-15) Blood Urea Nitrogen 8 mg/dL (7-18) Creatinine 0.5 MG/DL (0.55-1.30) L Estimat Glomerular Filtration Rate > 60 mL/min (>60) Glucose Level 187 MG/DL (74-106) H Calcium Level 8.6 MG/DL (8.5-10.1) Phosphorus Level 2.1 MG/DL (2.5-4.9) L Magnesium Level 1.6 MG/DL (1.8-2.4) L Total Bilirubin 0.2 MG/DL (0.2-1.0) Aspartate Amino Transf (AST/SGOT) 15 U/L (15-37) Alanine Aminotransferase (ALT/SGPT) 11 U/L (12-78) L Alkaline Phosphatase 90 U/L (46-116) Total Protein 5.7 G/DL (6.4-8.2) L Albumin 1.9 G/DL (3.4-5.0) L Globulin 3.8 g/dL Albumin/Globulin Ratio 0.5 (1.0-2.7) L General: well developed Head: normocophalic Neck: no rigidity EENT: benign Neurologic Exam Mental Status: awake, other Speech: other Language: other Cranial Nerve II: other Cranial Nerves III, IV, : other Cranial Nerve V: other Cranial Nerve VII: other Cranial Nerve VIII: other Cranial Nerve IX: other Cranial Nerve XI: other Cranial Nerve XII: other Motor System: other Sensory: other Coordination: other Stance: other Gait: other Objective REmains obtunded with intermittent eye opening and preferential gaze to the left - w/d x 4 PERLL - visual joe unable to be obtained but partial hemianopia also suspected on the right side. Impression/Recommendations Problems: (1) Lactic acid increased (2) Bacteremia (3) Diabetes mellitus (4) Hypertension (5) Dysphagia (6) Oligodendroglioma (7) Sacral decubitus ulcer (8) History of CVA (cerebrovascular accident) (9) Severe malnutrition (10) Anemia (11) PEG (percutaneous endoscopic gastrostomy) adjustment/replacement/removal (12) Sepsis (13) Acute encephalopathy (14) acute toxic encephalopathy (15) Uncontrolled seizures (16) Tachycardia (17) Acute respiratory failure (18) UTI (urinary tract infection) (19) Hematuria Status: stable Diagnostic Impression Afebrile, normotensive, with leukocytosis- neurological exam largely stable. Recommendations Continue Q 4 Neuro OBs No need for imaging at this time. Correct/ Replete Lytes Maintain normothermia Maintain normoglycemia with ISS Na 135-145 HgB>8Maintain SBP<140 Maintain good sleep hygiene by making room dark and quiet at night and minimizing non essential care during evening. Vidya Sun N.P. Dec 13, 2018 23:20
--- NOTE | 2018-12-13 23:59 | Neurology Progress Note ---
Interim History Interim History ROS Limited/Unobtainable: No Complaints: AMS Interim History This visit was performed on December 13, [address] Dias. Objective Physical Exam Last Vital Signs Date Time Temp Pulse Resp B/P (MAP) Pulse Ox O2 Delivery O2 Flow Rate FiO2 12/13/18 20:00 Nasal Cannula 2.0 12/13/18 20:00 97.7 118 18 119/81 (94) 98 12/12/18 02:30 21 Laboratory Tests Test 12/13/18 06:15 White Blood Count 19.4 K/UL (4.8-10.8) #H Red Blood Count 3.37 M/UL (4.70-6.10) L Hemoglobin 10.1 G/DL (14.2-18.0) L Hematocrit 31.0 % (42.0-52.0) L Mean Corpuscular Volume 92 FL (80-99) Mean Corpuscular Hemoglobin 29.8 PG (27.0-31.0) Mean Corpuscular Hemoglobin Concent 32.4 G/DL (32.0-36.0) Red Cell Distribution Width 15.3 % (11.6-14.8) H Platelet Count 231 K/UL (150-450) Mean Platelet Volume 6.3 FL (6.5-10.1) L Neutrophils (%) (Auto) % (45.0-75.0) Lymphocytes (%) (Auto) % (20.0-45.0) Monocytes (%) (Auto) % (1.0-10.0) Eosinophils (%) (Auto) % (0.0-3.0) Basophils (%) (Auto) % (0.0-2.0) Differential Total Cells Counted 100 Neutrophils % (Manual) 80 % (45-75) H Lymphocytes % (Manual) 4 % (20-45) L Monocytes % (Manual) 5 % (1-10) Eosinophils % (Manual) 1 % (0-3) Basophils % (Manual) 0 % (0-2) Band Neutrophils 10 % (0-8) H Platelet Estimate Adequate Platelet Morphology Normal Anisocytosis 1+ Sodium Level 139 MMOL/L (136-145) Potassium Level 3.9 MMOL/L (3.5-5.1) Chloride Level 100 MMOL/L (98-107) Carbon Dioxide Level 32 MMOL/L (21-32) Anion Gap 7 mmol/L (5-15) Blood Urea Nitrogen 8 mg/dL (7-18) Creatinine 0.5 MG/DL (0.55-1.30) L Estimat Glomerular Filtration Rate > 60 mL/min (>60) Glucose Level 187 MG/DL (74-106) H Calcium Level 8.6 MG/DL (8.5-10.1) Phosphorus Level 2.1 MG/DL (2.5-4.9) L Magnesium Level 1.6 MG/DL (1.8-2.4) L Total Bilirubin 0.2 MG/DL (0.2-1.0) Aspartate Amino Transf (AST/SGOT) 15 U/L (15-37) Alanine Aminotransferase (ALT/SGPT) 11 U/L (12-78) L Alkaline Phosphatase 90 U/L (46-116) Total Protein 5.7 G/DL (6.4-8.2) L Albumin 1.9 G/DL (3.4-5.0) L Globulin 3.8 g/dL Albumin/Globulin Ratio 0.5 (1.0-2.7) L General: well developed, other Head: normocophalic, other Neck: no rigidity EENT: benign Neurologic Exam Mental Status: awake, other Speech: other Language: other Cranial Nerve II: other Cranial Nerves III, IV, : other Cranial Nerve V: other Cranial Nerve VII: other Cranial Nerve VIII: other Cranial Nerve IX: other Cranial Nerve XI: other Cranial Nerve XII: other Motor System: other Sensory: other Coordination: other Stance: other Gait: other Objective intermittent eye opening and preferential gaze to the left - w/d x 4 PERLL - visual joe unable to be obtained but partial hemianopia also suspected on the right side. Impression/Recommendations Problems: (1) Lactic acid increased (2) Bacteremia (3) Diabetes mellitus (4) Hypertension (5) Dysphagia (6) Oligodendroglioma (7) Sacral decubitus ulcer (8) History of CVA (cerebrovascular accident) (9) Severe malnutrition (10) Anemia (11) PEG (percutaneous endoscopic gastrostomy) adjustment/replacement/removal (12) Sepsis (13) Acute encephalopathy (14) acute toxic encephalopathy (15) Uncontrolled seizures (16) Tachycardia (17) Acute respiratory failure (18) UTI (urinary tract infection) (19) Hematuria Recommendations COntinue PEG feeds Nutritional consult may help SBP<140 Maintain normothermia Maintain normoglycemia with ISS Na 135-145 HgB>8 Replace/ Replete Lytes - Magnesium/ Calcium No indication for neuroimaging at this time Q4 hr Neuro Obs Vidya Sun N.P. Dec 13, 2018 23:59
[2018-12-14] VITALS: BP 122/80
[2018-12-14] MEDS: dilTIAZem HCl 60mg tab ORAL SCH ×4 (00:20→17:55)
[2018-12-14 04:00] VITALS: BP 126/81
[2018-12-14] MEDS: sitaGLIPtin 50mg tab ORAL SCH (06:21)
[2018-12-14] MEDS: Heparin 5000 units/ml inj SUBQ SCH ×3 (06:23→21:16)
[2018-12-14] MEDS: NovoLOG Insulin Flexpen SUBQ SCH ×4 (06:23→20:39)
[2018-12-14 06:33] LABS: HEMATOCRIT 32.4 % (42.0-52.0); HEMOGLOBIN 10.5 G/DL (14.2-18.0); MEAN CORPUSCULAR VOLUME 92 FL (80-99); PLATELET COUNT 258 K/UL (150-450); RED BLOOD COUNT 3.51 M/UL (4.70-6.10); RED CELL DISTRIBUTION WIDTH 15.5 % (11.6-14.8); WHITE BLOOD COUNT 13.4 K/UL (4.8-10.8)
[2018-12-14 06:58] LABS: ALANINE AMINOTRANSFERASE 15 U/L (12-78); ALBUMIN 1.9 G/DL (3.4-5.0); ALBUMIN/GLOBULIN RATIO 0.4 (1.0-2.7); ALKALINE PHOSPHATASE 97 U/L (46-116); ANION GAP 5 mmol/L (5-15); ASPARTATE AMINO TRANSFERASE 16 U/L (15-37); BILIRUBIN,TOTAL 0.2 MG/DL (0.2-1.0); BLOOD UREA NITROGEN 11 mg/dL (7-18); CALCIUM 9.1 MG/DL (8.5-10.1); CARBON DIOXIDE 34 MMOL/L (21-32); CHLORIDE 102 MMOL/L (98-107); CREATININE 0.5 MG/DL (0.55-1.30); PHOSPHORUS 2.4 MG/DL (2.5-4.9); POTASSIUM 4.2 MMOL/L (3.5-5.1); SODIUM 141 MMOL/L (136-145)
--- NOTE | 2018-12-14 07:10 | NUR ---
NURSE NOTES: Received report from CHIDI San. Patient is in bed awake AAO x 2 to name and purpose. Patient is showing no signs of acute distress. Cardiac rhythm showing ST. Respiration even and non labored on 2L NC 02. No SOB noted. PICC line of upper arm is patent and intact. no signs of infection. IV on left hand 20g patent and intact SL. Bilateral soft wrist restraints are on, cap refill <3sec. Pt. on air mattress for sacral stage 4 pressure ulcer. Optifoam dressing intact. Mota cath patent and intact, draining. Urine Clear yellow noted. Bed in lowest position, wheels locked, and alarm on. Will continue plan of care.
--- NOTE | 2018-12-14 07:20 | NUR ---
HAND-OFF: Report given to CHIDI Bowers.
[2018-12-14 08:00] VITALS: BP 110/69
[2018-12-14] MEDS: cefTRIAXone 2 GM in D5W 55 ML IVPB SCH (08:28)
[2018-12-14] MEDS: Depakote 125mg Sprinkles GT SCH ×2 (08:29→20:35)
--- NOTE | 2018-12-14 09:55 | NUR ---
NURSE NOTES: Left message to Dr. Feng to clarify diet order.
--- NOTE | 2018-12-14 11:01 | Pulmonology Progress Note ---
Assessment/Plan Problems: (1) Bacteremia (2) Sepsis (3) Acute encephalopathy (4) Hematuria (5) Oligodendroglioma (6) Severe malnutrition (7) Diabetes mellitus (8) Hypertension (9) History of CVA (cerebrovascular accident) (10) Sacral decubitus ulcer (11) Tachycardia Assessment/Plan PHos supplement looks better heart rate still tachy, sinus rhythm now wbc decreasing continue abx check electrolytes no more seizure tolerating feeding Subjective ROS Limited/Unobtainable: No Constitutional: Reports: no symptoms HEENT: Repors: no symptoms Respiratory: Reports: no symptoms Allergies: Coded Allergies: No Known Allergies (Unverified , 09/27/18) Objective Last 24 Hour Vital Signs Date Time Temp Pulse Resp B/P (MAP) Pulse Ox O2 Delivery O2 Flow Rate FiO2 12/14/18 08:00 98.5 121 22 110/69 (83) 94 12/14/18 07:42 120 12/14/18 07:40 Nasal Cannula 2.0 12/14/18 06:21 119 126/81 12/14/18 04:00 Nasal Cannula 2.0 12/14/18 04:00 97.9 119 18 126/81 (96) 98 12/14/18 04:00 120 12/14/18 00:20 112 122/80 12/14/18 00:00 114 12/14/18 00:00 Nasal Cannula 2.0 12/14/18 00:00 97.9 112 17 122/80 (94) 98 12/13/18 20:00 Nasal Cannula 2.0 12/13/18 20:00 97.7 118 18 119/81 (94) 98 12/13/18 20:00 116 12/13/18 17:15 116 120/77 12/13/18 16:00 99.0 116 20 120/77 (91) 99 12/13/18 16:00 109 12/13/18 16:00 Nasal Cannula 2.0 12/13/18 12:40 123 117/78 12/13/18 12:00 118 12/13/18 12:00 99.2 123 20 117/78 (91) 99 12/13/18 12:00 Nasal Cannula 2.0 Intake and Output 12/13/18 12/14/18 19:00 07:00 Output Total 1200 ml 1050 ml Balance -1200 ml -1050 ml Output Urine Total 1200 ml 1050 ml # Voids 1 General Appearance: WD/WN, no acute distress HEENT: normocephalic, atraumatic Respiratory/Chest: chest wall non-tender, lungs clear Cardiovascular: normal peripheral pulses, normal rate, no gallop/murmur Abdomen: soft, non tender, no organomegaly Laboratory Tests 12/14/18 05:20: White Blood Count 13.4H, Red Blood Count 3.51L, Hemoglobin 10.5L, Hematocrit 32.4L, Mean Corpuscular Volume 92, Mean Corpuscular Hemoglobin 30.0, Mean Corpuscular Hemoglobin Concent 32.6, Red Cell Distribution Width 15.5H, Platelet Count 258, Mean Platelet Volume 6.1L, Neutrophils (%) (Auto) , Lymphocytes (%) (Auto) , Monocytes (%) (Auto) , Eosinophils (%) (Auto) , Basophils (%) (Auto) , Prothrombin Time 10.8, Prothromb Time International Ratio 1.0, Activated Partial Thromboplast Time 31, Sodium Level 141, Potassium Level 4.2, Chloride Level 102, Carbon Dioxide Level 34H, Anion Gap 5, Blood Urea Nitrogen 11, Creatinine 0.5L, Estimat Glomerular Filtration Rate > 60, Glucose Level 215H, Calcium Level 9.1, Phosphorus Level 2.4L, Magnesium Level 2.0, Total Bilirubin 0.2, Aspartate Amino Transf (AST/SGOT) 16, Alanine Aminotransferase (ALT/SGPT) 15, Alkaline Phosphatase 97, Total Protein 6.2L, Albumin 1.9L, Globulin 4.3, Albumin/Globulin Ratio 0.4L Current Medications Medications (Trade) Dose Ordered Sig/Chace Route PRN Reason Start Time Stop Time Status Last Admin Dose Admin Acetaminophen (Tylenol) 650 mg Q4H PRN ORAL Mild Pain/Temp > 100.5 12/12/18 14:06 01/11/19 14:05 Acetaminophen/ Hydrocodone Bitart ([place] 5/325) 1 tab Q4H PRN ORAL Severe Pain (Pain Scale 7-10) 12/12/18 14:07 12/19/18 14:06 Ceftriaxone Sodium 2 gm/ Dextrose 55 ml @ 110 mls/hr DAILY IVPB 12/13/18 10:00 12/20/18 09:59 12/14/18 08:28 Chlorhexidine Gluconate ([place]-Hex 2%) 1 applic DAILY@2000 TOPIC 12/12/18 20:00 01/09/19 19:59 12/13/18 20:29 Dextrose (Dextrose 50%) 25 ml Q30M PRN IV Hypoglycemia 12/12/18 14:30 01/09/19 06:29 Dextrose (Dextrose 50%) 50 ml Q30M PRN IV Hypoglycemia 12/12/18 14:30 01/09/19 06:29 Diltiazem HCl (Cardizem) 60 mg EVERY 6 HOURS ORAL 12/12/18 18:00 01/09/19 17:59 12/14/18 06:21 Divalproex Sodium (Depakote Sprinkles) 500 mg Q12HR GT 12/13/18 21:00 01/12/19 20:59 12/14/18 08:29 Finasteride (Proscar) 5 mg DAILY@2100 ORAL 12/12/18 21:00 01/09/19 20:59 12/13/18 20:30 Heparin Sodium (Porcine) (Heparin 5000 units/ml) 5,000 units EVERY 8 HOURS SUBQ 12/12/18 22:00 01/10/19 21:59 12/14/18 06:23 Insulin Aspart (NovoLOG) BEFORE MEALS AND HS SUBQ 12/12/18 16:30 01/09/19 06:29 12/14/18 06:23 Lamotrigine (LaMICtal) 50 mg DAILY ORAL 12/13/18 09:00 01/09/19 08:59 12/14/18 08:29 Morphine Sulfate (Morphine Sulfate) 4 mg Q6H PRN IVP Severe Pain (Pain Scale 7-10) 12/12/18 14:07 12/19/18 14:06 12/12/18 14:59 Sitagliptin Phosphate (Januvia) 50 mg Q24H ORAL 12/13/18 06:30 01/12/19 06:29 12/14/18 06:21 Tamsulosin HCl (Flomax) 0.4 mg BEDTIME ORAL 12/12/18 21:00 01/09/19 20:59 12/13/18 20:30 Raul Feng MD Dec 14, 2018 11:01
[2018-12-14 12:00] VITALS: BP 114/75
[2018-12-14] MEDS ORDERED: Sodium Phosphate 30 MM in NS 275 ML IV SCH (12:00)
--- NOTE | 2018-12-14 12:02 | Infectious Diseases Prog Note ---
Assessment/Plan Assessment/Plan 68 yo male who was recently admitted 11/12/18 - 11/17/18 with PNA, UTI and sacral OM. Now returning with Fever and hematuria Sepsis - Urosepsis Likely Secondary to UTI c/w bacteremia UCx 12/10/18 - E. coli Blood Cx 12/10/18 - E .coli UCx 11/10/18 - P.a. 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 No contrast enhancement to suggest recurrent tumor is evident currently. There is evidence of old peripheral hemorrhage, presumably related to the prior surgery. 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 Negative for acute intracranial bleed, mass effect, infarct, or contrast enhancing lesion. 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 We will continue to follow the patient during this hospitalization. Subjective Allergies: Coded Allergies: No Known Allergies (Unverified , 09/27/18) Subjective afebrile >72hr leukocytosis improving Objective Vital Signs Last 24 Hour Vital Signs Date Time Temp Pulse Resp B/P (MAP) Pulse Ox O2 Delivery O2 Flow Rate FiO2 12/14/18 08:00 98.5 121 22 110/69 (83) 94 12/14/18 07:42 120 12/14/18 07:40 Nasal Cannula 2.0 12/14/18 06:21 119 126/81 12/14/18 04:00 Nasal Cannula 2.0 12/14/18 04:00 97.9 119 18 126/81 (96) 98 12/14/18 04:00 120 12/14/18 00:20 112 122/80 12/14/18 00:00 114 12/14/18 00:00 Nasal Cannula 2.0 12/14/18 00:00 97.9 112 17 122/80 (94) 98 12/13/18 20:00 Nasal Cannula 2.0 12/13/18 20:00 97.7 118 18 119/81 (94) 98 12/13/18 20:00 116 12/13/18 17:15 116 120/77 12/13/18 16:00 99.0 116 20 120/77 (91) 99 12/13/18 16:00 109 12/13/18 16:00 Nasal Cannula 2.0 12/13/18 12:40 123 117/78 12/13/18 12:00 118 12/13/18 12:00 99.2 123 20 117/78 (91) 99 12/13/18 12:00 Nasal Cannula 2.0 Height (Feet): 5 Height (Inches): 10.00 Weight (Pounds): 130 Objective Gen: NAD on NC HEENT: NCAT, MMM, EOMI LUNGS: CTAB, No W CARDS: RRR, S1, S2 ABD: Soft, NT, ND, PEG ( No e/p) Laboratory Tests Test 12/14/18 05:20 White Blood Count 13.4 K/UL (4.8-10.8) H Red Blood Count 3.51 M/UL (4.70-6.10) L Hemoglobin 10.5 G/DL (14.2-18.0) L Hematocrit 32.4 % (42.0-52.0) L Mean Corpuscular Volume 92 FL (80-99) Mean Corpuscular Hemoglobin 30.0 PG (27.0-31.0) Mean Corpuscular Hemoglobin Concent 32.6 G/DL (32.0-36.0) Red Cell Distribution Width 15.5 % (11.6-14.8) H Platelet Count 258 K/UL (150-450) Mean Platelet Volume 6.1 FL (6.5-10.1) L Neutrophils (%) (Auto) % (45.0-75.0) Lymphocytes (%) (Auto) % (20.0-45.0) Monocytes (%) (Auto) % (1.0-10.0) Eosinophils (%) (Auto) % (0.0-3.0) Basophils (%) (Auto) % (0.0-2.0) Prothrombin Time 10.8 SEC (9.30-11.50) Prothromb Time International Ratio 1.0 (0.9-1.1) Activated Partial Thromboplast Time 31 SEC (23-33) Sodium Level 141 MMOL/L (136-145) Potassium Level 4.2 MMOL/L (3.5-5.1) Chloride Level 102 MMOL/L (98-107) Carbon Dioxide Level 34 MMOL/L (21-32) H Anion Gap 5 mmol/L (5-15) Blood Urea Nitrogen 11 mg/dL (7-18) Creatinine 0.5 MG/DL (0.55-1.30) L Estimat Glomerular Filtration Rate > 60 mL/min (>60) Glucose Level 215 MG/DL (74-106) H Calcium Level 9.1 MG/DL (8.5-10.1) Phosphorus Level 2.4 MG/DL (2.5-4.9) L Magnesium Level 2.0 MG/DL (1.8-2.4) Total Bilirubin 0.2 MG/DL (0.2-1.0) Aspartate Amino Transf (AST/SGOT) 16 U/L (15-37) Alanine Aminotransferase (ALT/SGPT) 15 U/L (12-78) Alkaline Phosphatase 97 U/L (46-116) Total Protein 6.2 G/DL (6.4-8.2) L Albumin 1.9 G/DL (3.4-5.0) L Globulin 4.3 g/dL Albumin/Globulin Ratio 0.4 (1.0-2.7) L Current Medications Medications (Trade) Dose Ordered Sig/Chace Route PRN Reason Start Time Stop Time Status Last Admin Dose Admin Acetaminophen (Tylenol) 650 mg Q4H PRN ORAL Mild Pain/Temp > 100.5 12/12/18 14:06 01/11/19 14:05 Acetaminophen/ Hydrocodone Bitart ([place] 5/325) 1 tab Q4H PRN ORAL Severe Pain (Pain Scale 7-10) 12/12/18 14:07 12/19/18 14:06 Ceftriaxone Sodium 2 gm/ Dextrose 55 ml @ 110 mls/hr DAILY IVPB 12/13/18 10:00 12/20/18 09:59 12/14/18 08:28 Chlorhexidine Gluconate ([place]-Hex 2%) 1 applic DAILY@2000 TOPIC 12/12/18 20:00 01/09/19 19:59 12/13/18 20:29 Dextrose (Dextrose 50%) 25 ml Q30M PRN IV Hypoglycemia 12/12/18 14:30 01/09/19 06:29 Dextrose (Dextrose 50%) 50 ml Q30M PRN IV Hypoglycemia 12/12/18 14:30 01/09/19 06:29 Diltiazem HCl (Cardizem) 60 mg EVERY 6 HOURS ORAL 12/12/18 18:00 01/09/19 17:59 12/14/18 06:21 Divalproex Sodium (Depakote Sprinkles) 500 mg Q12HR GT 12/13/18 21:00 01/12/19 20:59 12/14/18 08:29 Finasteride (Proscar) 5 mg DAILY@2100 ORAL 12/12/18 21:00 01/09/19 20:59 12/13/18 20:30 Heparin Sodium (Porcine) (Heparin 5000 units/ml) 5,000 units EVERY 8 HOURS SUBQ 12/12/18 22:00 01/10/19 21:59 12/14/18 06:23 Insulin Aspart (NovoLOG) BEFORE MEALS AND HS SUBQ 12/12/18 16:30 01/09/19 06:29 12/14/18 11:23 Lamotrigine (LaMICtal) 50 mg DAILY ORAL 12/13/18 09:00 01/09/19 08:59 12/14/18 08:29 Morphine Sulfate (Morphine Sulfate) 4 mg Q6H PRN IVP Severe Pain (Pain Scale 7-10) 12/12/18 14:07 12/19/18 14:06 12/12/18 14:59 Sitagliptin Phosphate (Januvia) 50 mg Q24H ORAL 12/13/18 06:30 01/12/19 06:29 12/14/18 06:21 Sodium Phosphate 30 mm/Sodium Chloride 285 ml @ 47.5 mls/hr ONCE IV 12/14/18 12:00 12/14/18 18:00 Tamsulosin HCl (Flomax) 0.4 mg BEDTIME ORAL 12/12/18 21:00 01/09/19 20:59 12/13/18 20:30 Brandie Carlos M.D. Dec 14, 2018 12:02
--- NOTE | 2018-12-14 12:27 | Cardiac Electrophysiology PN ---
Assessment/Plan Assessment/Plan 1. SVT with rapid ventricular response. No recurrence on Cardizem 60 q 6. EF 50% 2. Troponin leak 1.7> 1.3. No CP 3. Hypertension. On Cardizem 60 q6 4. Sinus tach likely due to sepsis as WBC was almost 20K yesterday on 12/13/18 . On Abx 5. Dysphagia, status post PEG placement. 6. Diabetes. 7. Encephalopathy. 8. Hematuria. Resolved after Mota was advanced and positioned in bladder by Dr Rousseau 9. History of glioblastoma. 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 In Sinus tach 120s despite on GT Cardizem. Confused in restraints Objective Last 24 Hour Vital Signs Date Time Temp Pulse Resp B/P (MAP) Pulse Ox O2 Delivery O2 Flow Rate FiO2 12/14/18 08:00 98.5 121 22 110/69 (83) 94 12/14/18 07:42 120 12/14/18 07:40 Nasal Cannula 2.0 12/14/18 06:21 119 126/81 12/14/18 04:00 Nasal Cannula 2.0 12/14/18 04:00 97.9 119 18 126/81 (96) 98 12/14/18 04:00 120 12/14/18 00:20 112 122/80 12/14/18 00:00 114 12/14/18 00:00 Nasal Cannula 2.0 12/14/18 00:00 97.9 112 17 122/80 (94) 98 12/13/18 20:00 Nasal Cannula 2.0 12/13/18 20:00 97.7 118 18 119/81 (94) 98 12/13/18 20:00 116 12/13/18 17:15 116 120/77 12/13/18 16:00 99.0 116 20 120/77 (91) 99 12/13/18 16:00 109 12/13/18 16:00 Nasal Cannula 2.0 12/13/18 12:40 123 117/78 Intake and Output 12/13/18 12/14/18 19:00 07:00 Output Total 1200 ml 1050 ml Balance -1200 ml -1050 ml Output Urine Total 1200 ml 1050 ml # Voids 1 Laboratory Tests Test 12/14/18 05:20 White Blood Count 13.4 K/UL (4.8-10.8) H Red Blood Count 3.51 M/UL (4.70-6.10) L Hemoglobin 10.5 G/DL (14.2-18.0) L Hematocrit 32.4 % (42.0-52.0) L Mean Corpuscular Volume 92 FL (80-99) Mean Corpuscular Hemoglobin 30.0 PG (27.0-31.0) Mean Corpuscular Hemoglobin Concent 32.6 G/DL (32.0-36.0) Red Cell Distribution Width 15.5 % (11.6-14.8) H Platelet Count 258 K/UL (150-450) Mean Platelet Volume 6.1 FL (6.5-10.1) L Neutrophils (%) (Auto) % (45.0-75.0) Lymphocytes (%) (Auto) % (20.0-45.0) Monocytes (%) (Auto) % (1.0-10.0) Eosinophils (%) (Auto) % (0.0-3.0) Basophils (%) (Auto) % (0.0-2.0) Prothrombin Time 10.8 SEC (9.30-11.50) Prothromb Time International Ratio 1.0 (0.9-1.1) Activated Partial Thromboplast Time 31 SEC (23-33) Sodium Level 141 MMOL/L (136-145) Potassium Level 4.2 MMOL/L (3.5-5.1) Chloride Level 102 MMOL/L (98-107) Carbon Dioxide Level 34 MMOL/L (21-32) H Anion Gap 5 mmol/L (5-15) Blood Urea Nitrogen 11 mg/dL (7-18) Creatinine 0.5 MG/DL (0.55-1.30) L Estimat Glomerular Filtration Rate > 60 mL/min (>60) Glucose Level 215 MG/DL (74-106) H Calcium Level 9.1 MG/DL (8.5-10.1) Phosphorus Level 2.4 MG/DL (2.5-4.9) L Magnesium Level 2.0 MG/DL (1.8-2.4) Total Bilirubin 0.2 MG/DL (0.2-1.0) Aspartate Amino Transf (AST/SGOT) 16 U/L (15-37) Alanine Aminotransferase (ALT/SGPT) 15 U/L (12-78) Alkaline Phosphatase 97 U/L (46-116) Total Protein 6.2 G/DL (6.4-8.2) L Albumin 1.9 G/DL (3.4-5.0) L Globulin 4.3 g/dL Albumin/Globulin Ratio 0.4 (1.0-2.7) L Objective HEAD AND NECK: No JVD. LUNGS: Clear. CARDIOVASCULAR: Regular S1 and S2 with no gallop or murmur. ABDOMEN: Status post G-tube. EXTREMITIES: No pitting edema. Huy Valladares MD Dec 14, 2018 12:27
--- NOTE | 2018-12-14 14:20 | NUR ---
RD ASSESSMENT & RECOMMENDATIONS SEE CARE ACTIVITY FOR COMPLETE ASSESSMENT DAILY ESTIMATED NEEDS: Needs based on wound, wasting, DM / 59kg 30-35 kcals/kg [id number] total kcals 1.25-2 g protein/kg 74-118 g total protein 25-30 mL/kg 8778-8111 total fluid mLs NUTRITION DIAGNOSIS: * Increased kcal/prot needs R/T wound healing, wt loss as evidenced by recent history of sacral stage 4 wound, severe BL LE wasting, 91% [place] Body Weight. * Swallowing difficulty R/T dysphagia w/ h/o brain tumor and CVA as evidenced by s/p recent PEG placement, on GT feeds. CURRENT TF:Glucerna 1.5 @50 ml ENTERAL NUTRITION RECOMMENDATIONS: Glucerna 1.5 @ 50ml/hr x 24 hrs to provide 1200ml, 1800kcal, 99g prot, 911ml free water * Maintain at goal as tolerated. * HOB over 30 degrees/ water flush per MD ADDITIONAL RECOMMENDATIONS: * Calibrated bedscale wt for accurate CBW * Check lytes daily w/ TF, replete as needed * Wound healing: Ziyad 1pkt BID + Vit C 250mg BID + Zn SO4 220mg daily x10 days * Monitor BGs closely, need for tighter regimen (BGs in the 200's) -> consider long acting insulin
--- NOTE | 2018-12-14 14:46 | NUR ---
CASE MANAGEMENT:REVIEW 12/14/18 SI:SEPSIS. TROPONIN LEAK. SVT 97.5 121 20 114/75 91% ON 2L/NC WBC+13.4 PHOS-2.4 IS: IV K-PHOS X1 IV ROCEPHIN Q24 DEPAKOTE GT Q12 LAMICTAL GT QD JANUVIA GT Q24 HEPARIN SQ Q8HRS FLOMAX GT QHS CARDIZEM GT Q6HRS : TELEMETRY STATUS DCP: FROM [facility]
[2018-12-14 16:00] VITALS: BP 110/76
--- NOTE | 2018-12-14 16:42 | Surgery Progress Note ---
Surgery Progress Note Subjective Additional Comments afebrile, HD Stable, tachycardic, leukocytosis trending down exam stable. Objective Last 24 Hour Vital Signs Date Time Temp Pulse Resp B/P (MAP) Pulse Ox O2 Delivery O2 Flow Rate FiO2 12/14/18 14:00 111 12/14/18 12:34 121 110/69 12/14/18 12:00 97.5 113 20 114/75 (88) 91 12/14/18 12:00 Nasal Cannula 2.0 12/14/18 08:00 98.5 121 22 110/69 (83) 94 12/14/18 07:42 120 12/14/18 07:40 Nasal Cannula 2.0 12/14/18 06:21 119 126/81 12/14/18 04:00 Nasal Cannula 2.0 12/14/18 04:00 97.9 119 18 126/81 (96) 98 12/14/18 04:00 120 12/14/18 00:20 112 122/80 12/14/18 00:00 114 12/14/18 00:00 Nasal Cannula 2.0 12/14/18 00:00 97.9 112 17 122/80 (94) 98 12/13/18 20:00 Nasal Cannula 2.0 12/13/18 20:00 97.7 118 18 119/81 (94) 98 12/13/18 20:00 116 12/13/18 17:15 116 120/77 I&O Intake and Output 12/13/18 12/14/18 19:00 07:00 Output Total 1200 ml 1050 ml Balance -1200 ml -1050 ml Output Urine Total 1200 ml 1050 ml # Voids 1 Dressing: saturated Wound: other Drains: other Cardiovascular: RSR Respiratory: decreased breath sounds Abdomen: soft, present bowel sounds Extremities: no edema Laboratory Tests Test 12/14/18 05:20 White Blood Count 13.4 K/UL (4.8-10.8) H Red Blood Count 3.51 M/UL (4.70-6.10) L Hemoglobin 10.5 G/DL (14.2-18.0) L Hematocrit 32.4 % (42.0-52.0) L Mean Corpuscular Volume 92 FL (80-99) Mean Corpuscular Hemoglobin 30.0 PG (27.0-31.0) Mean Corpuscular Hemoglobin Concent 32.6 G/DL (32.0-36.0) Red Cell Distribution Width 15.5 % (11.6-14.8) H Platelet Count 258 K/UL (150-450) Mean Platelet Volume 6.1 FL (6.5-10.1) L Neutrophils (%) (Auto) % (45.0-75.0) Lymphocytes (%) (Auto) % (20.0-45.0) Monocytes (%) (Auto) % (1.0-10.0) Eosinophils (%) (Auto) % (0.0-3.0) Basophils (%) (Auto) % (0.0-2.0) Prothrombin Time 10.8 SEC (9.30-11.50) Prothromb Time International Ratio 1.0 (0.9-1.1) Activated Partial Thromboplast Time 31 SEC (23-33) Sodium Level 141 MMOL/L (136-145) Potassium Level 4.2 MMOL/L (3.5-5.1) Chloride Level 102 MMOL/L (98-107) Carbon Dioxide Level 34 MMOL/L (21-32) H Anion Gap 5 mmol/L (5-15) Blood Urea Nitrogen 11 mg/dL (7-18) Creatinine 0.5 MG/DL (0.55-1.30) L Estimat Glomerular Filtration Rate > 60 mL/min (>60) Glucose Level 215 MG/DL (74-106) H Calcium Level 9.1 MG/DL (8.5-10.1) Phosphorus Level 2.4 MG/DL (2.5-4.9) L Magnesium Level 2.0 MG/DL (1.8-2.4) Total Bilirubin 0.2 MG/DL (0.2-1.0) Aspartate Amino Transf (AST/SGOT) 16 U/L (15-37) Alanine Aminotransferase (ALT/SGPT) 15 U/L (12-78) Alkaline Phosphatase 97 U/L (46-116) Total Protein 6.2 G/DL (6.4-8.2) L Albumin 1.9 G/DL (3.4-5.0) L Globulin 4.3 g/dL Albumin/Globulin Ratio 0.4 (1.0-2.7) L Plan Problems: (1) Lactic acid increased (2) Diabetes mellitus (3) Hypertension (4) Dysphagia (5) Oligodendroglioma (6) Sacral decubitus ulcer Assessment & Plan: Pt presented on admission with full thickness sacral pressure injury with undermining and bone visible at base of wound.Base of wound 90% granular with an area of 10% loose slough noted at undermined area at 11-12o'clock. Wound is malodorous. Small amt. brown exudate noted. Dark brown borders noted. (L)8.5cm x (W)7cm x (D)1.9cm undermining 9-5 by 3.5cm @9o'clock. Bilat groin areas and scrotum erythematous. Non-blanchable erythema without fluctuance noted to R heel and plantar R heel. Non-blanchable erythema without fluctuance noted to L heel. Tx.Plan: Cleanse sacral wound with Saline. Loosely pack with Hydrogel infused Kerlix. Apply Moisture Barrier periwound. Cover with Optifoam.Change Twice Daily and PRN. Apply Moisture Barrier Paste to Bilat groin areas and Scrotum with each Incontinence care. Apply Cavilon Skin Barrier to both Heels. Cover each heel with Optifoam drsg. Change every 7 days and prn. Air Fluidized Mattress. Reposition at least every 2hours or as tolerated. Position with Pillow between knees. Off-load heels with Pillow. (7) History of CVA (cerebrovascular accident) (8) Severe malnutrition Assessment & Plan: DAILY ESTIMATED NEEDS: Needs based on wound, wasting, DM / 59kg 30-35 kcals/kg 7510-6393 total kcals 1.25-2 g protein/kg 74-118 g total protein 25-30 mL/kg 5931-0396 total fluid mLs NUTRITION DIAGNOSIS: * Increased kcal/prot needs R/T wound healing, wt loss as evidenced by recent history of sacral stage 4 wound, severe BL LE wasting, 91% [place] Body Weight. month. * Swallowing difficulty R/T dysphagia w/ h/o brain tumor and CVA as evidenced by s/p recent PEG placement, pending GT feeding. (CURRENT TF:Glytrol @45) ENTERAL NUTRITION RECOMMENDATIONS: Glucerna 1.5 @ 50ml/hr x 24 hrs to provide 1200ml, 1800kcal, 99g prot, 911ml free water * Start @30ml/hr, advance as tolerated 10ml/hr q4-6 hrs to goal * HOB over 30 degrees/ water flush per MD ------ ADDITIONAL RECOMMENDATIONS: * Calibrated bedscale wt for accurate CBW * Check lytes daily w/ TF, replete as needed * Wound healing: Ziyad 1pkt BID F/up w/ WC eval * Monitor BGs closely, need for tighter regimen (BGs in the 200's) -> consider long acting insulin (9) Anemia (10) PEG (percutaneous endoscopic gastrostomy) adjustment/replacement/removal (11) Sepsis Assessment & Plan: leukocytosis 13k today anemia lactic acidosis - resolved on IV abx as per ID improving wounds unlikely etiology as chronic no acute infection noted in wounds will monitor (12) Acute encephalopathy (13) acute toxic encephalopathy (14) Uncontrolled seizures (15) Tachycardia (16) Acute respiratory failure (17) UTI (urinary tract infection) (18) Hematuria Harry Rivas Dec 14, 2018 16:42
[2018-12-14] MEDS: Morphine Sulfate 4mg/ml Inj (IV USE ONLY) IVP PRN (18:21)
--- NOTE | 2018-12-14 19:01 | Internal Med Progress Note ---
Subjective Date of Service: Dec 14, 2018 Physician Name Kidd,Jesus Attending Physician Camacho Braun MD Current Medications Medications (Trade) Dose Ordered Sig/Chace Route PRN Reason Start Time Stop Time Status Last Admin Dose Admin Acetaminophen (Tylenol) 650 mg Q4H PRN ORAL Mild Pain/Temp > 100.5 12/12/18 14:06 01/11/19 14:05 Acetaminophen/ Hydrocodone Bitart ([place] 5/325) 1 tab Q4H PRN ORAL Moderate Pain (Pain Scale 4-6) 12/14/18 22:07 12/19/18 14:06 Ceftriaxone Sodium 2 gm/ Dextrose 55 ml @ 110 mls/hr DAILY IVPB 12/13/18 10:00 12/20/18 09:59 12/14/18 08:28 Chlorhexidine Gluconate (Susannah-Hex 2%) 1 applic DAILY@2000 TOPIC 12/12/18 20:00 01/09/19 19:59 12/13/18 20:29 Dextrose (Dextrose 50%) 25 ml Q30M PRN IV Hypoglycemia 12/12/18 14:30 01/09/19 06:29 Dextrose (Dextrose 50%) 50 ml Q30M PRN IV Hypoglycemia 12/12/18 14:30 01/09/19 06:29 Diltiazem HCl (Cardizem) 60 mg EVERY 6 HOURS ORAL 12/12/18 18:00 01/09/19 17:59 12/14/18 17:55 Divalproex Sodium (Depakote Sprinkles) 500 mg Q12HR GT 12/13/18 21:00 01/12/19 20:59 12/14/18 08:29 Finasteride (Proscar) 5 mg DAILY@2100 ORAL 12/12/18 21:00 01/09/19 20:59 12/13/18 20:30 Heparin Sodium (Porcine) (Heparin 5000 units/ml) 5,000 units EVERY 8 HOURS SUBQ 12/12/18 22:00 01/10/19 21:59 12/14/18 14:06 Insulin Aspart (NovoLOG) BEFORE MEALS AND HS SUBQ 12/12/18 16:30 01/09/19 06:29 12/14/18 16:47 Lamotrigine (LaMICtal) 50 mg DAILY ORAL 12/13/18 09:00 01/09/19 08:59 12/14/18 08:29 Morphine Sulfate (Morphine Sulfate) 4 mg Q6H PRN IVP Severe Pain (Pain Scale 7-10) 12/12/18 14:07 12/19/18 14:06 12/14/18 18:21 Sitagliptin Phosphate (Januvia) 50 mg Q24H ORAL 12/13/18 06:30 01/12/19 06:29 12/14/18 06:21 Tamsulosin HCl (Flomax) 0.4 mg BEDTIME ORAL 12/12/18 21:00 01/09/19 20:59 12/13/18 20:30 Allergies: Coded Allergies: No Known Allergies (Unverified , 09/27/18) ROS Limited/Unobtainable: Yes Subjective 68 YO M admitted with hematuria and fever, Now UTI and sepsis. Cover for Int gage-Dr Braun Objective Last Vital Signs Date Time Temp Pulse Resp B/P (MAP) Pulse Ox O2 Delivery O2 Flow Rate FiO2 12/14/18 18:51 97.5 12/14/18 17:55 110 110/76 12/14/18 16:00 Nasal Cannula 2.0 12/14/18 16:00 20 99 12/12/18 02:30 21 Laboratory Tests Test 12/14/18 05:20 White Blood Count 13.4 K/UL (4.8-10.8) H Red Blood Count 3.51 M/UL (4.70-6.10) L Hemoglobin 10.5 G/DL (14.2-18.0) L Hematocrit 32.4 % (42.0-52.0) L Mean Corpuscular Volume 92 FL (80-99) Mean Corpuscular Hemoglobin 30.0 PG (27.0-31.0) Mean Corpuscular Hemoglobin Concent 32.6 G/DL (32.0-36.0) Red Cell Distribution Width 15.5 % (11.6-14.8) H Platelet Count 258 K/UL (150-450) Mean Platelet Volume 6.1 FL (6.5-10.1) L Neutrophils (%) (Auto) % (45.0-75.0) Lymphocytes (%) (Auto) % (20.0-45.0) Monocytes (%) (Auto) % (1.0-10.0) Eosinophils (%) (Auto) % (0.0-3.0) Basophils (%) (Auto) % (0.0-2.0) Prothrombin Time 10.8 SEC (9.30-11.50) Prothromb Time International Ratio 1.0 (0.9-1.1) Activated Partial Thromboplast Time 31 SEC (23-33) Sodium Level 141 MMOL/L (136-145) Potassium Level 4.2 MMOL/L (3.5-5.1) Chloride Level 102 MMOL/L (98-107) Carbon Dioxide Level 34 MMOL/L (21-32) H Anion Gap 5 mmol/L (5-15) Blood Urea Nitrogen 11 mg/dL (7-18) Creatinine 0.5 MG/DL (0.55-1.30) L Estimat Glomerular Filtration Rate > 60 mL/min (>60) Glucose Level 215 MG/DL (74-106) H Calcium Level 9.1 MG/DL (8.5-10.1) Phosphorus Level 2.4 MG/DL (2.5-4.9) L Magnesium Level 2.0 MG/DL (1.8-2.4) Total Bilirubin 0.2 MG/DL (0.2-1.0) Aspartate Amino Transf (AST/SGOT) 16 U/L (15-37) Alanine Aminotransferase (ALT/SGPT) 15 U/L (12-78) Alkaline Phosphatase 97 U/L (46-116) Total Protein 6.2 G/DL (6.4-8.2) L Albumin 1.9 G/DL (3.4-5.0) L Globulin 4.3 g/dL Albumin/Globulin Ratio 0.4 (1.0-2.7) L Intake and Output 12/13/18 12/14/18 19:00 07:00 Output Total 1200 ml 1050 ml Balance -1200 ml -1050 ml Output Urine Total 1200 ml 1050 ml # Voids 1 Objective PHYSICAL EXAMINATION: GENERAL: The patient is a well-developed and well-nourished thin-appearing male, in no apparent distress. HEENT: Eyes, pupils are equal and responsive to light and accommodation. Extraocular movements are intact. NECK: Supple without lymphadenopathy. CHEST: Lungs are clear to auscultation bilaterally without wheezes or rales. CARDIOVASCULAR: Regular rhythm and rate. S1 and S2 are normal without murmurs, rubs, or gallops. ABDOMEN: Soft, nontender, and nondistended. Positive bowel sounds. No evidence of hepatosplenomegaly. Currently, no rebound or guarding noted. EXTREMITIES: Negative for clubbing, cyanosis, or edema. RECTAL/GENITAL: Not performed. NEUROLOGIC: Cranial nerves II through XII are grossly intact without focal deficits. Assessment/Plan Assessment/Plan ASSESSMENT: This is a 68-year-old male. 1. Fever. 2. Hematuria. 3. Leukocytosis. 4. Brain cancer. 5. Seizure disorder. 6. Diabetes type 2. 7. Cerebrovascular disease. 8. Right hemiparesis. 9. Hypertension. 10. Coronary artery disease. 11. Expressive aphasia. 12. Urinary tract infection=E. Coli 13. Sepsis=E. Coli TREATMENT: 1. Fever/hematuria/leukocytosis, may be secondary to urinary tract infection versus sepsis. Urine culture is pending. The patient has been started empirically on intravenous cefepime. Await urine culture results. 2. Brain cancer. 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 3. Seizure disorder. Continue Depakote and Vimpat as above. 4. Diabetes type 2. NovoLog sliding scale has been instituted. 5. Cerebrovascular disease/right hemiparesis. 6. Hypertension. 7. Coronary artery disease. 8. Expressive aphasia. 9. aBX=ceftriaxone D# 2/11-end 12/25/18 Jesus Kidd MD Dec 14, 2018 19:01
--- NOTE | 2018-12-14 19:30 | NUR ---
HAND-OFF: Report given to CHIDI Deluca.
--- NOTE | 2018-12-14 19:39 | NUR ---
NURSE NOTES: Report received from CHIDI Bowers. Pt is in stable condition with no signs or symptoms of cardiopulmonary distress. Bed in the lowest position, bed brakes engaged, side rails up x 3 and padded with call light within reach. Will continue to monitor.
[2018-12-14 20:00] VITALS: BP 117/78
[2018-12-14] MEDS: Dyna-Hex 2% Top Sol 2oz TOPIC SCH (20:33)
[2018-12-14] MEDS: Tamsulosin 0.4mg cap ORAL SCH (20:34)
[2018-12-15] VITALS: BP 120/77
[2018-12-15] MEDS: dilTIAZem HCl 60mg tab ORAL SCH ×4 (00:37→17:18)
[2018-12-15 04:00] VITALS: BP 129/82
[2018-12-15] MEDS: sitaGLIPtin 50mg tab ORAL SCH (05:39)
[2018-12-15] MEDS: Heparin 5000 units/ml inj SUBQ SCH ×3 (05:41→21:43)
[2018-12-15] MEDS: NovoLOG Insulin Flexpen SUBQ SCH ×4 (06:05→20:46)
--- NOTE | 2018-12-15 07:10 | NUR ---
NURSE NOTES: Report received from CHIDI Deluca. Patient asleep, easily awakened by name. AOx1, at this time, will continue to monitor and reorient. In 2L NC. Denies any SOB or pain. G tube running Glucernia 1.5 at 50. Mota draining. Picc line on L upper arm, 1 lumen TKO. Bed on lowest position, side rails upx2 & padded, brakes engaged, alarm on. Call light placed close to L hand.
[2018-12-15 07:21] LABS: HEMATOCRIT 31.2 % (42.0-52.0); MEAN CORPUSCULAR VOLUME 92 FL (80-99); PLATELET COUNT 280 K/UL (150-450); RED BLOOD COUNT 3.37 M/UL (4.70-6.10); RED CELL DISTRIBUTION WIDTH 15.7 % (11.6-14.8); WHITE BLOOD COUNT 10.8 K/UL (4.8-10.8)
--- NOTE | 2018-12-15 07:40 | NUR ---
HAND-OFF: Report given to CHIDI Pineda.
[2018-12-15 07:53] LABS: ANION GAP 5 mmol/L (5-15); BLOOD UREA NITROGEN 11 mg/dL (7-18); CALCIUM 8.7 MG/DL (8.5-10.1); CARBON DIOXIDE 33 MMOL/L (21-32); CHLORIDE 101 MMOL/L (98-107); CREATININE 0.5 MG/DL (0.55-1.30); POTASSIUM 4.3 MMOL/L (3.5-5.1); SODIUM 139 MMOL/L (136-145)
[2018-12-15 08:00] VITALS: BP 116/75
--- NOTE | 2018-12-15 08:57 | NUR ---
NURSE NOTES:WOUND CARE FOLLOW-UP NOTES:Full thickness sacral pressure injury with undermined borders. Base of wound has 90% pink granulation with 10% slough at undermined areas clockwise at 11-12o'clock. Bone exposure noted at base of wound.Edges dark brown but are flat.Periwound without erythema or induration. No odor noted. Small amt serous exudate noted. (L)9.2cm x (W)6cm x (D)2.7cm, undermining clockwise 9-5 by 3.1cm @12 0'clock. R and L heels are both fluctuant . Non-blanchable erythema both heels at plantar aspects. Tx.Plan:Cleanse wound with Saline. Loosely pack wound with Hydrogel impregnated Kerlix. Apply Moisture Barrier periwound. Cover with Optifoam drsg Twice daily and PRN. Apply Cavilon Skin Barrier to both heels including plantar aspects of heels. Cover each heel with Optifoam drsg. Change every 7 days and prn. Reposition at least every every 2hours or as tolerated. Off-load heels with pillow. Off-load heels with pillow. APM/ADRIAN mattress overlay.
[2018-12-15] MEDS: Depakote 125mg Sprinkles GT SCH ×2 (09:34→20:32)
[2018-12-15] MEDS: cefTRIAXone 2 GM in D5W 55 ML IVPB SCH (09:36)
[2018-12-15] MEDS: HYDROcodone/Acetamin 5/325 tab ORAL PRN (09:43)
--- NOTE | 2018-12-15 10:32 | Cardiac Electrophysiology PN ---
Assessment/Plan Assessment/Plan 1. SVT with rapid ventricular response. No recurrence on Cardizem 60 q 6. EF 50% 2. Troponin leak 1.7> 1.3. No CP 3. Hypertension. On Cardizem 60 q6 4. Sinus tach likely due to sepsis as WBC was almost 20K on 12/13/18 . On Abx WBC down to 10 K 5. Dysphagia, status post PEG placement. Swallow eval pending today 6. Diabetes. 7. Encephalopathy. 8. Hematuria. Resolved after Mota was advanced by Dr Rousseau 9. History of glioblastoma. LUCIO RN Subjective Subjective In Sinus tach still 120s despite Cardizem. Confused in restraints. Swallow eval pending today Objective Last 24 Hour Vital Signs Date Time Temp Pulse Resp B/P (MAP) Pulse Ox O2 Delivery O2 Flow Rate FiO2 12/15/18 08:00 97.9 115 20 116/75 (89) 97 12/15/18 08:00 118 12/15/18 05:38 110 129/82 12/15/18 04:00 97.8 110 20 129/82 (98) 100 12/15/18 04:00 123 12/15/18 00:37 101 120/77 12/15/18 00:00 98.6 101 19 120/77 (91) 100 12/15/18 00:00 123 12/14/18 21:32 97 Nasal Cannula 2.0 28 12/14/18 21:00 Nasal Cannula 2.0 12/14/18 20:00 98.8 121 18 117/78 (91) 100 12/14/18 20:00 114 12/14/18 18:51 97.5 12/14/18 17:55 110 110/76 12/14/18 16:00 Nasal Cannula 2.0 12/14/18 16:00 97.5 110 20 110/76 (87) 99 12/14/18 15:21 108 12/14/18 14:00 111 12/14/18 12:34 121 110/69 12/14/18 12:00 97.5 113 20 114/75 (88) 91 12/14/18 12:00 Nasal Cannula 2.0 Intake and Output 12/14/18 12/15/18 19:00 07:00 Intake Total 55 ml Output Total 200 ml 1550 ml Balance -145 ml -1550 ml IV Total 55 ml Output Urine Total 200 ml 1550 ml # Bowel Movements 1 Laboratory Tests Test 12/15/18 06:15 White Blood Count 10.8 K/UL (4.8-10.8) Red Blood Count 3.37 M/UL (4.70-6.10) L Hemoglobin 10.0 G/DL (14.2-18.0) L Hematocrit 31.2 % (42.0-52.0) L Mean Corpuscular Volume 92 FL (80-99) Mean Corpuscular Hemoglobin 29.8 PG (27.0-31.0) Mean Corpuscular Hemoglobin Concent 32.2 G/DL (32.0-36.0) Red Cell Distribution Width 15.7 % (11.6-14.8) H Platelet Count 280 K/UL (150-450) Mean Platelet Volume 6.0 FL (6.5-10.1) L Neutrophils (%) (Auto) % (45.0-75.0) Lymphocytes (%) (Auto) % (20.0-45.0) Monocytes (%) (Auto) % (1.0-10.0) Eosinophils (%) (Auto) % (0.0-3.0) Basophils (%) (Auto) % (0.0-2.0) Differential Total Cells Counted 100 Neutrophils % (Manual) 86 % (45-75) H Lymphocytes % (Manual) 4 % (20-45) L Monocytes % (Manual) 3 % (1-10) Eosinophils % (Manual) 3 % (0-3) Basophils % (Manual) 0 % (0-2) Band Neutrophils 4 % (0-8) Platelet Estimate Adequate Platelet Morphology Normal Anisocytosis 1+ Sodium Level 139 MMOL/L (136-145) Potassium Level 4.3 MMOL/L (3.5-5.1) Chloride Level 101 MMOL/L (98-107) Carbon Dioxide Level 33 MMOL/L (21-32) H Anion Gap 5 mmol/L (5-15) Blood Urea Nitrogen 11 mg/dL (7-18) Creatinine 0.5 MG/DL (0.55-1.30) L Estimat Glomerular Filtration Rate > 60 mL/min (>60) Glucose Level 211 MG/DL (74-106) H Calcium Level 8.7 MG/DL (8.5-10.1) Objective HEAD AND NECK: No JVD. LUNGS: Clear. CARDIOVASCULAR: Tachy Regular S1 and S2 with no gallop or murmur. ABDOMEN: Status post G-tube. EXTREMITIES: No pitting edema. Huy Valladares MD Dec 15, 2018 10:31
--- NOTE | 2018-12-15 11:31 | Pulmonology Progress Note ---
Assessment/Plan Problems: (1) At high risk for aspiration (2) Sepsis (3) Bacteremia (4) Acute encephalopathy (5) Hematuria (6) Oligodendroglioma (7) Severe malnutrition (8) Diabetes mellitus (9) Hypertension (10) History of CVA (cerebrovascular accident) (11) Sacral decubitus ulcer (12) Tachycardia Assessment/Plan PHos supplement looks better heart rate still tachy, sinus rhythm now wbc decreasing continue abx check electrolytes no more seizure tolerating feeding Subjective ROS Limited/Unobtainable: No Constitutional: Reports: no symptoms HEENT: Repors: no symptoms Allergies: Coded Allergies: No Known Allergies (Unverified , 09/27/18) Objective Last 24 Hour Vital Signs Date Time Temp Pulse Resp B/P (MAP) Pulse Ox O2 Delivery O2 Flow Rate FiO2 12/15/18 08:00 97.9 115 20 116/75 (89) 97 12/15/18 08:00 118 12/15/18 05:38 110 129/82 12/15/18 04:00 97.8 110 20 129/82 (98) 100 12/15/18 04:00 123 12/15/18 00:37 101 120/77 12/15/18 00:00 98.6 101 19 120/77 (91) 100 12/15/18 00:00 123 12/14/18 21:32 97 Nasal Cannula 2.0 28 12/14/18 21:00 Nasal Cannula 2.0 12/14/18 20:00 98.8 121 18 117/78 (91) 100 12/14/18 20:00 114 12/14/18 18:51 97.5 12/14/18 17:55 110 110/76 12/14/18 16:00 Nasal Cannula 2.0 12/14/18 16:00 97.5 110 20 110/76 (87) 99 12/14/18 15:21 108 12/14/18 14:00 111 12/14/18 12:34 121 110/69 12/14/18 12:00 97.5 113 20 114/75 (88) 91 12/14/18 12:00 Nasal Cannula 2.0 Intake and Output 12/14/18 12/15/18 19:00 07:00 Intake Total 55 ml Output Total 200 ml 1550 ml Balance -145 ml -1550 ml IV Total 55 ml Output Urine Total 200 ml 1550 ml # Bowel Movements 1 General Appearance: WD/WN HEENT: atraumatic Respiratory/Chest: chest wall non-tender, lungs clear Cardiovascular: normal peripheral pulses, regular rhythm Abdomen: normal bowel sounds, no organomegaly Genitourinary: normal external genitalia Extremities: no clubbing Laboratory Tests 12/15/18 06:15: White Blood Count 10.8, Red Blood Count 3.37L, Hemoglobin 10.0L, Hematocrit 31.2L, Mean Corpuscular Volume 92, Mean Corpuscular Hemoglobin 29.8, Mean Corpuscular Hemoglobin Concent 32.2, Red Cell Distribution Width 15.7H, Platelet Count 280, Mean Platelet Volume 6.0L, Neutrophils (%) (Auto) , Lymphocytes (%) (Auto) , Monocytes (%) (Auto) , Eosinophils (%) (Auto) , Basophils (%) (Auto) , Differential Total Cells Counted 100, Neutrophils % ( Manual) 86H, Lymphocytes % (Manual) 4L, Monocytes % (Manual) 3, Eosinophils % ( Manual) 3, Basophils % (Manual) 0, Band Neutrophils 4, Platelet Estimate Adequate, Platelet Morphology Normal, Anisocytosis 1+, Sodium Level 139, Potassium Level 4.3, Chloride Level 101, Carbon Dioxide Level 33H, Anion Gap 5, Blood Urea Nitrogen 11, Creatinine 0.5L, Estimat Glomerular Filtration Rate > 60 , Glucose Level 211H, Calcium Level 8.7 Current Medications Medications (Trade) Dose Ordered Sig/Chace Route PRN Reason Start Time Stop Time Status Last Admin Dose Admin Acetaminophen (Tylenol) 650 mg Q4H PRN ORAL Mild Pain/Temp > 100.5 12/12/18 14:06 01/11/19 14:05 Acetaminophen/ Hydrocodone Bitart ([place] 5/325) 1 tab Q4H PRN ORAL Moderate Pain (Pain Scale 4-6) 12/14/18 22:07 12/19/18 14:06 12/15/18 09:43 Ceftriaxone Sodium 2 gm/ Dextrose 55 ml @ 110 mls/hr DAILY IVPB 12/13/18 10:00 12/20/18 09:59 12/15/18 09:36 Chlorhexidine Gluconate (Susannah-Hex 2%) 1 applic DAILY@2000 TOPIC 12/12/18 20:00 01/09/19 19:59 12/14/18 20:33 Dextrose (Dextrose 50%) 25 ml Q30M PRN IV Hypoglycemia 12/12/18 14:30 01/09/19 06:29 Dextrose (Dextrose 50%) 50 ml Q30M PRN IV Hypoglycemia 12/12/18 14:30 01/09/19 06:29 Diltiazem HCl (Cardizem) 60 mg EVERY 6 HOURS ORAL 12/12/18 18:00 01/09/19 17:59 12/15/18 05:38 Divalproex Sodium (Depakote Sprinkles) 500 mg Q12HR GT 12/13/18 21:00 01/12/19 20:59 12/15/18 09:34 Finasteride (Proscar) 5 mg DAILY@2100 ORAL 12/12/18 21:00 01/09/19 20:59 12/14/18 20:37 Heparin Sodium (Porcine) (Heparin 5000 units/ml) 5,000 units EVERY 8 HOURS SUBQ 12/12/18 22:00 01/10/19 21:59 12/15/18 05:41 Insulin Aspart (NovoLOG) BEFORE MEALS AND HS SUBQ 12/12/18 16:30 01/09/19 06:29 12/15/18 06:05 Lamotrigine (LaMICtal) 50 mg DAILY ORAL 12/13/18 09:00 01/09/19 08:59 12/15/18 09:35 Morphine Sulfate (Morphine Sulfate) 4 mg Q6H PRN IVP Severe Pain (Pain Scale 7-10) 12/12/18 14:07 12/19/18 14:06 12/14/18 18:21 Sitagliptin Phosphate (Januvia) 50 mg Q24H ORAL 12/13/18 06:30 01/12/19 06:29 12/15/18 05:39 Tamsulosin HCl (Flomax) 0.4 mg BEDTIME ORAL 12/12/18 21:00 01/09/19 20:59 12/14/18 20:34 Raul Feng MD Dec 15, 2018 11:31
--- NOTE | 2018-12-15 11:39 | NUR ---
SWALLOW/SPEECH THERAPY NOTE: REFERRED BY DR MIKE FOR A SWALLOW EVAL (PRIMARY DR AMBRIZ), SEE CARE ACTIVITY SECTION FOR FULL REPORT. 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 AT SNF ON PEG FEEDINGS OF GLUCERNA. [place] [facility] [place]. ON 10/12/18 AT THAT TIME, HE WAS NOT ALERT NOR READY FOR PO INTAKE AND NGT AND ORAL CARE WERE CONTINUED. REEVAL OF SWALLOWING SKILLS WAS COMPLETED ON 10/21/18 AND HIS SWALLOW WAS GROSSLY FUNCTIONAL (AND FAMILY WANTED HIM TO EAT/DRINK BY MOUTH FOR QUALITY OF LIFE) AND IT WAS RECOMMENDED HE BEGIN A [facility] SOFT GROUND DIET AND THIN LIQUIDS (DISLIKED NECTAR THICK) WITH GLUCERNTA TID (CCHO-MED AND LOW NA). INTAKE WAS POOR 10% OR REFUSED. FAMILY DID NOT WANT PEG AT THAT TIME. NOW PATIENT HAS PEG W/O ORAL GRAT NOTED BUT HE WAS SEEING DIRECTOR SPORTS. ALERT ON 02 2 LITERS NC. ABLE TO EXPRESS BASIC NEEDS IN HOARSE/BREATHY VOICE IN EGYPTIAN INITIAL IMPRESSIONS: HIGH RISK FOR PERSISTENT OR WORSENED OROPHARYNGEAL DYSPHAGIA HIGH RISK FOR SILENT ASPIRATION DUE TO NEUROLOGICAL DEFICITS. DID NOT FOLLOW ORAL COMMANDS TONGUE/LIPS MOVE ADEQUATELY FOR INTELLIGIBLE SPEECH ADEQUATE DENTITION GROSSLY FUNCTIONAL SALIVA MANAGEMENT RECOMMENDATIONS: COMPLETED MODIFIED BARIUM SWALLOW STUDY TO FURTHER ASSESS SWALLOW, DETERMINE SILENT ASPIRATION RISK/ETIOLOGY, AND ATTEMPT TRIAL TX TECHNIQUES FOR ORAL GRAT OR MORE. CONTINUE WITH PEG FEEDINGS AND ORAL CARE FOR NOW. D/W RN (RICH) AND DR MIKE (WHO AGREED) Addendum: 12/15/18 at 1152 by RUEL MEIER DIRECTOR SPORTS PAIN (? HOW MUCH DOES NOT SAY) ONLY IF HOB TO 90 DUE TO SACRAL PAIN FROM WOUNDS TOLERATED 45 DEGREES BUT STILL SOME PAIN. Addendum: 12/15/18 at 1206 by RUEL MEIER DIRECTOR SPORTS UPDATED REPORT: REFERRED BY DR MIKE FOR A SWALLOW EVAL (PRIMARY DR AMBRIZ), SEE ST CARE ACTIVITY SECTION FOR FULL REPORT. 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 AT SNF ON PEG FEEDINGS OF GLUCERNA. [place] [facility] [place] [facility] AND [place]/01/18. ON 10/12/18 AT THAT TIME, HE WAS NOT ALERT NOR READY FOR PO INTAKE AND NGT AND ORAL CARE WERE CONTINUED. REEVAL OF SWALLOWING SKILLS WAS COMPLETED ON 10/21/18 AND HIS SWALLOW WAS GROSSLY FUNCTIONAL (AND FAMILY WANTED HIM TO EAT/DRINK BY MOUTH FOR QUALITY OF LIFE) AND IT WAS RECOMMENDED HE BEGIN A [facility] SOFT GROUND DIET AND THIN LIQUIDS (DISLIKED NECTAR THICK) WITH GLUCERNTA TID (CCHO-MED AND LOW NA). INTAKE WAS POOR 10% OR REFUSED. FAMILY DID NOT WANT PEG AT THAT TIME. NOW PATIENT HAS PEG W/O ORAL GRAT NOTED BUT HE WAS SEEING DIRECTOR SPORTS. PATIENT GETTING PEG FEEDINGS AND ON DIET OF SOFT CHEW AND THIN LIQUIDS. PER RNRICH, PATIENT WAS CHOKING ON HIS EGGS BUT APPEARED TO NOT COUGH WITH PUREED FOODS. ALERT ON 02 2 LITERS NC. ABLE TO EXPRESS BASIC NEEDS IN HOARSE/BREATHY VOICE IN EGYPTIAN. INITIAL IMPRESSIONS: HIGH RISK FOR PERSISTENT OR WORSENED OROPHARYNGEAL DYSPHAGIA HIGH RISK FOR SILENT ASPIRATION DUE TO NEUROLOGICAL DEFICITS. DID NOT FOLLOW ORAL COMMANDS TONGUE/LIPS MOVE ADEQUATELY FOR INTELLIGIBLE SPEECH ADEQUATE DENTITION GROSSLY [employer]AL SALIVA MANAGEMENT RECOMMENDATIONS: GIVEN SILENT ASPIRATION RISK, HOLD PO TRIALS/MEALS FOR MOD BARIUM SWALLOW STUDY TO FURTHER ASSESS SWALLOW, DETERMINE SILENT ASPIRATION RISK/ETIOLOGY, AND ATTEMPT TRIAL TX TECHNIQUES FOR ORAL GRAT OR MORE. CONTINUE WITH PEG FEEDINGS AND ORAL CARE FOR NOW. D/W RN (RICH) AND DR MIKE (WHO AGREED)
[2018-12-15 12:00] VITALS: BP 127/86
--- NOTE | 2018-12-15 12:32 | NUR ---
SWALLOW/SPEECH THERAPY NOTE: MODIFIED BARIUM SWALLOW STUDY COMPLETED, SEE FULL REPORT TO FOLLOW OR CALL [phone]. ALERT IN LATERAL/OBLIQUE VIEWS ONLY. BACK PAIN WITH HOB AT 90 AND COULD ONLY GO TO 45 DEGREES HOB AND LIMITED PO TRIALS TO MINIMUM ( THOUGH HEAD POSITION IN NEUTRAL). THIN LIQUIDS: TSP, TSP, CUP NECTAR THICK LIQUIDS: TSP, CUP HONEY THICK LIQUIDS: TSP THIN LIQUID WASH: CUP TSP WATER TO CLEAR COATING IN PHARYNX INITIAL IMPRESSIONS MODERATELY SEVERE OROPHARYNGEAL DYSPHAGIA (LEVEL 2 ON DYSPHAGIA OUTCOME SEVERITY SCALE): MAX ASSIST OR USE OF STRATEGIES WITH PARTIAL PO ONLY (TOLERATES AT LEAST ONE CONSISTENCY SAFELY WITH TOTAL USE OF STRATEGIES) AND CHARACTERIZED BY INCREASED OROPHARYNGEAL TRANSIT TIMES DUE TO OROPHARYNGEAL DYSMOTILITY AND DELAYED SWALLOW. NO ASPIRATION WITH MOST TRIALS OF TSP THIN/NECTAR THICK/HONEY THICK LIQUIDS, BUT HIGH RISK PRESENT DUE TO ABOVE NOTED DEFICITS (MOSTLY AFTER THE SWALLOW FROM PHARYNGEAL DYSMOTILITY). WITH THIN AND NECTAR THICK LIQUIDS VIA CUP HAD TRACE LARYNGEAL PENETRATION (W/O COUGH) BEFORE SWALLOW AND APPEARED TO BE DUE TO DELAYED SWALLOW AND LATE CLOSURE OF LARYNGEAL VESTIBULE (NEED TO REVIEW MORE CLOSELY). VERY HIGH RISK FOR SIGNIFICANT AND CHRONIC ASPIRATION PARTICULARLY AFTER THE SWALLOW WITH ALL CONSISTENCIES AND LARGER AMOUNTS (CUP LEVEL) DUE TO PHARYNGEAL DYSMOTILITY RESULTING IN SIGNIFICANT PHARYNGEAL RESIDUE (IN VALLECULAE AND PYRIFORM SINUSES). SOME CLEARANCE OF RESIDUE COMPLETED WITH MAX CUES TO SWALLOW HARD AND AGAIN BUT PATIENT HAD SUCH POOR PHARYNGEAL SENSATION THAT HE WOULD NOT ALWAYS COMPLY. LIMITED USE OF OTHER STRATEGIES SINCE PT WAS IN PAIN AND DID NOT WANT TO BE UPRIGHT FOR MORE TRIALS/TREATMENT TECHNIQUES. RECOMMENDATIONS: CONTINUE WITH PEG FEEDINGS (CONTINUOUS) PRIMARY INTAKE AND ORAL GRAT BUT DOWNGRADE TO [facility]-MED LIQUIFIED PUREED LIKE THIN OR NECTAR THICK SOUP CONSISTENCY, OK TO HAVE THIN LIQUIDS (SAFEST AT TSP LEVEL FOR THOSE CONSISTENCIES) USING POSTED ASPIRATION PRECAUTIONS AND ASSIST WITH MEALS. D/W RN,, AND PATIENT. INITIAL IMPRESSIONS: Addendum: 12/16/18 at 1302 by RUEL MEIER POLISHER NUMERAL UPDATED NOTE: MODIFIED BARIUM SWALLOW STUDY COMPLETED, SEE FULL REPORT TO FOLLOW OR CALL [phone]. ALERT IN LATERAL/OBLIQUE VIEWS ONLY. BACK PAIN WITH HOB AT 90 AND COULD ONLY GO TO 45 DEGREES HOB AND LIMITED PO TRIALS TO MINIMUM (THOUGH HEAD POSITION IN NEUTRAL) SINCE PT HAD PAIN ON SACRAL AREA FROM WOUND. DID NOT HAVE TOLERANCE FOR TRIAL TX TECHNIQUES OTHER THAN HARD 2ND SWALLOW CUE. THIN LIQUIDS: TSP, TSP, CUP NECTAR THICK LIQUIDS: TSP, CUP HONEY THICK LIQUIDS: TSP THIN LIQUID WASH: CUP TSP WATER TO CLEAR COATING IN PHARYNX INITIAL IMPRESSIONS MODERATELY SEVERE OROPHARYNGEAL DYSPHAGIA (LEVEL 2 ON DYSPHAGIA OUTCOME SEVERITY SCALE): MAX ASSIST OR USE OF STRATEGIES WITH PARTIAL PO ONLY (TOLERATES AT LEAST ONE CONSISTENCY SAFELY WITH TOTAL USE OF STRATEGIES) AND CHARACTERIZED BY INCREASED OROPHARYNGEAL TRANSIT TIMES DUE TO OROPHARYNGEAL DYSMOTILITY AND DELAYED SWALLOW. NO ASPIRATION OVERALL WITH TRIALS OF THIN, NECTAR THICK, AND HONEY THICK LIQUIDS, BUT HIGH RISK PRESENT DUE TO ABOVE NOTED DEFICITS (MOSTLY AFTER THE SWALLOW FROM PHARYNGEAL DYSMOTILITY MOR[place]O WITH REDUCED BASE OF TONGUE RETRACTION THAN HYOLARYNGEAL EXCURSION AND REDUCED PHARYNGEAL STRIPPING WAVE). WITH THIN (TSP/CUP) AND NECTAR THICK LIQUIDS (CUP)HAD TRACE LARYNGEAL PENETRATION W/O COUGH BEFORE SWALLOW AND ABOVE VOCAL FOLDS DUE TO DELAYED SWALLOW AND LATE CLOSURE OF LARYNGEAL VESTIBULE. VERY HIGH RISK FOR SIGNIFICANT AND CHRONIC ASPIRATION PARTICULARLY AFTER THE SWALLOW WITH ALL CONSISTENCIES AND MOSTLY WITH LARGER AMOUNTS (CUP LEVEL AND THICKER CONSISTENCIES OF HONEY OR GREATER) DUE TO PHARYNGEAL DYSMOTILITY RESULTING IN SIGNIFICANT PHARYNGEAL RESIDUE (IN VALLECULAE MORE THAN PYRIFORM SINUSES). SOME CLEARANCE OF RESIDUE COMPLETED WITH MAX CUES AND MORE TIME TO SWALLOW HARD AND AGAIN BUT PATIENT HAD SUCH POOR PHARYNGEAL SENSATION THAT HE WOULD NOT ALWAYS COMPLY. LIMITED USE OF OTHER STRATEGIES ESOPHAGEAL PHASE- TRACE BACKFLOW THROUGH THE PHARYNGOESOPHAGEAL SEGMENT OPENING WITH HONEY THICK LIQUID ONLY. SINCE PT WAS IN PAIN AND DID NOT WANT TO BE UPRIGHT FOR MORE TRIALS/TREATMENT TECHNIQUES. RECOMMENDATIONS: CONTINUE WITH PEG FEEDINGS (CONTINUOUS) PRIMARY INTAKE AND [facility]AT [facility] PUREED LIKE THIN OR NECTAR THICK SOUP CONSISTENCY, OK TO HAVE THIN LIQUIDS (SAFEST AT TSP LEVEL FOR THOSE CONSISTENCIES) USING POSTED ASPIRATION AND REFLUX PRECAUTIONS AND ASSIST WITH MEALS. D/W RN,, AND PATIENT.
--- NOTE | 2018-12-15 12:57 | Surgery Progress Note ---
Surgery Progress Note Subjective Additional Comments tachy leukocytosis resolved. exam stable. Objective Last 24 Hour Vital Signs Date Time Temp Pulse Resp B/P (MAP) Pulse Ox O2 Delivery O2 Flow Rate FiO2 12/15/18 12:21 100 127/86 12/15/18 12:00 122 12/15/18 12:00 97.8 115 18 127/86 (100) 100 12/15/18 08:00 97.9 115 20 116/75 (89) 97 12/15/18 08:00 118 12/15/18 05:38 110 129/82 12/15/18 04:00 97.8 110 20 129/82 (98) 100 12/15/18 04:00 123 12/15/18 00:37 101 120/77 12/15/18 00:00 98.6 101 19 120/77 (91) 100 12/15/18 00:00 123 12/14/18 21:32 97 Nasal Cannula 2.0 28 12/14/18 21:00 Nasal Cannula 2.0 12/14/18 20:00 98.8 121 18 117/78 (91) 100 12/14/18 20:00 114 12/14/18 18:51 97.5 12/14/18 17:55 110 110/76 12/14/18 16:00 Nasal Cannula 2.0 12/14/18 16:00 97.5 110 20 110/76 (87) 99 12/14/18 15:21 108 12/14/18 14:00 111 I&O Intake and Output 12/14/18 12/15/18 19:00 07:00 Intake Total 55 ml Output Total 200 ml 1550 ml Balance -145 ml -1550 ml IV Total 55 ml Output Urine Total 200 ml 1550 ml # Bowel Movements 1 Dressing: saturated Wound: other Drains: other Cardiovascular: RSR Respiratory: decreased breath sounds Abdomen: soft, present bowel sounds Extremities: no cyanosis Laboratory Tests Test 12/15/18 06:15 White Blood Count 10.8 K/UL (4.8-10.8) Red Blood Count 3.37 M/UL (4.70-6.10) L Hemoglobin 10.0 G/DL (14.2-18.0) L Hematocrit 31.2 % (42.0-52.0) L Mean Corpuscular Volume 92 FL (80-99) Mean Corpuscular Hemoglobin 29.8 PG (27.0-31.0) Mean Corpuscular Hemoglobin Concent 32.2 G/DL (32.0-36.0) Red Cell Distribution Width 15.7 % (11.6-14.8) H Platelet Count 280 K/UL (150-450) Mean Platelet Volume 6.0 FL (6.5-10.1) L Neutrophils (%) (Auto) % (45.0-75.0) Lymphocytes (%) (Auto) % (20.0-45.0) Monocytes (%) (Auto) % (1.0-10.0) Eosinophils (%) (Auto) % (0.0-3.0) Basophils (%) (Auto) % (0.0-2.0) Differential Total Cells Counted 100 Neutrophils % (Manual) 86 % (45-75) H Lymphocytes % (Manual) 4 % (20-45) L Monocytes % (Manual) 3 % (1-10) Eosinophils % (Manual) 3 % (0-3) Basophils % (Manual) 0 % (0-2) Band Neutrophils 4 % (0-8) Platelet Estimate Adequate Platelet Morphology Normal Anisocytosis 1+ Sodium Level 139 MMOL/L (136-145) Potassium Level 4.3 MMOL/L (3.5-5.1) Chloride Level 101 MMOL/L (98-107) Carbon Dioxide Level 33 MMOL/L (21-32) H Anion Gap 5 mmol/L (5-15) Blood Urea Nitrogen 11 mg/dL (7-18) Creatinine 0.5 MG/DL (0.55-1.30) L Estimat Glomerular Filtration Rate > 60 mL/min (>60) Glucose Level 211 MG/DL (74-106) H Calcium Level 8.7 MG/DL (8.5-10.1) Plan Problems: (1) Lactic acid increased (2) Diabetes mellitus (3) Hypertension (4) Dysphagia (5) Oligodendroglioma (6) Sacral decubitus ulcer Assessment & Plan: Pt presented on admission with full thickness sacral pressure injury with undermining and bone visible at base of wound.Base of wound 90% granular with an area of 10% loose slough noted at undermined area at 11-12o'clock. Wound is malodorous. Small amt. brown exudate noted. Dark brown borders noted. (L)8.5cm x (W)7cm x (D)1.9cm undermining 9-5 by 3.5cm @9o'clock. Bilat groin areas and scrotum erythematous. Non-blanchable erythema without fluctuance noted to R heel and plantar R heel. Non-blanchable erythema without fluctuance noted to L heel. Tx.Plan: Cleanse sacral wound with Saline. Loosely pack with Hydrogel infused Kerlix. Apply Moisture Barrier periwound. Cover with Optifoam.Change Twice Daily and PRN. Apply Moisture Barrier Paste to Bilat groin areas and Scrotum with each Incontinence care. Apply Cavilon Skin Barrier to both Heels. Cover each heel with Optifoam drsg. Change every 7 days and prn. Air Fluidized Mattress. Reposition at least every 2hours or as tolerated. Position with Pillow between knees. Off-load heels with Pillow. (7) History of CVA (cerebrovascular accident) (8) Severe malnutrition Assessment & Plan: DAILY ESTIMATED NEEDS: Needs based on wound, wasting, DM / 59kg 30-35 kcals/kg 3848-5507 total kcals 1.25-2 g protein/kg 74-118 g total protein 25-30 mL/kg 9199-1541 total fluid mLs NUTRITION DIAGNOSIS: * Increased kcal/prot needs R/T wound healing, wt loss as evidenced by recent history of sacral stage 4 wound, severe BL LE wasting, 91% [place] Body Weight. month. * Swallowing difficulty R/T dysphagia w/ h/o brain tumor and CVA as evidenced by s/p recent PEG placement, pending GT feeding. (CURRENT TF:Glytrol @45) ENTERAL NUTRITION RECOMMENDATIONS: Glucerna 1.5 @ 50ml/hr x 24 hrs to provide 1200ml, 1800kcal, 99g prot, 911ml free water * Start @30ml/hr, advance as tolerated 10ml/hr q4-6 hrs to goal * HOB over 30 degrees/ water flush per MD ------ ADDITIONAL RECOMMENDATIONS: * Calibrated bedscale wt for accurate CBW * Check lytes daily w/ TF, replete as needed * Wound healing: Ziyad 1pkt BID F/up w/ WC eval * Monitor BGs closely, need for tighter regimen (BGs in the 200's) -> consider long acting insulin (9) Anemia (10) PEG (percutaneous endoscopic gastrostomy) adjustment/replacement/removal (11) Sepsis Assessment & Plan: leukocytosis 13k today anemia lactic acidosis - resolved on IV abx as per ID improving wounds unlikely etiology as chronic no acute infection noted in wounds will monitor (12) Acute encephalopathy (13) acute toxic encephalopathy (14) Uncontrolled seizures (15) Tachycardia (16) Acute respiratory failure (17) UTI (urinary tract infection) (18) Hematuria Harry Rivas Dec 15, 2018 12:57
[2018-12-15] MEDS: Morphine Sulfate 4mg/ml Inj (IV USE ONLY) IVP PRN (13:18)
--- NOTE | 2018-12-15 15:57 | Infectious Diseases Prog Note ---
Assessment/Plan Assessment/Plan 68 yo male who was recently admitted 11/12/18 - 11/17/18 with PNA, UTI and sacral OM. Now returning with Fever and hematuria Sepsis - Urosepsis Likely Secondary to UTI c/w bacteremia UCx 12/10/18 - E. coli Blood Cx 12/10/18 - E .colil; 12/14 Bcx p UCx 11/10/18 - P.a. 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 No contrast enhancement to suggest recurrent tumor is evident currently. There is evidence of old peripheral hemorrhage, presumably related to the prior surgery. 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 Negative for acute intracranial bleed, mass effect, infarct, or contrast enhancing lesion. 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 HTN HLD BPH Dm2 s/p appendectomy s/p tonsillectomy CAD seizure disorder SNF resident sacral decubitus ulcer, FTT s/p PEG 11/05/18 S/P Peg Plan: - Cont Ceftriaxone 2g Q24hr #3/ ( End date 12/25/18) - 12/13/18 SP Cefepime #1 and flagyl #1 - Monitor CBC and Temps - 11/30 S/P Meropenem #6 to PO Cipro for PsA UTI and PNA (abx d # for PsA sacral OM) - 11/25 S/P Vancomycin #14 - 11/12 SP Cefepime #2 - 11/10 SP IV Vancomycin #32, Zosyn #23 - 10/19 Sp Ceftriaxone #8 - 10/12/18 SP Cefepime #3 -wound care per surgical team -PEG care -aspiration precautions -f/u repeat Bcx x2 Thank you for this consult. We will continue to follow the patient during this hospitalization. Subjective Allergies: Coded Allergies: No Known Allergies (Unverified , 09/27/18) Subjective afebrile leukocytosis resolved repeat Bcx p Objective Vital Signs Last 24 Hour Vital Signs Date Time Temp Pulse Resp B/P (MAP) Pulse Ox O2 Delivery O2 Flow Rate FiO2 12/15/18 14:40 98 Nasal Cannula 2.0 28 12/15/18 12:21 100 127/86 12/15/18 12:00 122 12/15/18 12:00 97.8 115 18 127/86 (100) 100 12/15/18 09:00 Nasal Cannula 2.0 12/15/18 08:00 97.9 115 20 116/75 (89) 97 12/15/18 08:00 118 12/15/18 05:38 110 129/82 12/15/18 04:00 97.8 110 20 129/82 (98) 100 12/15/18 04:00 123 12/15/18 00:37 101 120/77 12/15/18 00:00 98.6 101 19 120/77 (91) 100 12/15/18 00:00 123 12/14/18 21:32 97 Nasal Cannula 2.0 28 12/14/18 21:00 Nasal Cannula 2.0 12/14/18 20:00 98.8 121 18 117/78 (91) 100 12/14/18 20:00 114 12/14/18 18:51 97.5 12/14/18 17:55 110 110/76 12/14/18 16:00 Nasal Cannula 2.0 12/14/18 16:00 97.5 110 20 110/76 (87) 99 Height (Feet): 5 Height (Inches): 10.00 Weight (Pounds): 132 Objective Gen: NAD on NC HEENT: NCAT, MMM, EOMI LUNGS: CTAB, No W CARDS: RRR, S1, S2 ABD: Soft, NT, ND, PEG ( No e/p) Laboratory Tests Test 12/15/18 06:15 White Blood Count 10.8 K/UL (4.8-10.8) Red Blood Count 3.37 M/UL (4.70-6.10) L Hemoglobin 10.0 G/DL (14.2-18.0) L Hematocrit 31.2 % (42.0-52.0) L Mean Corpuscular Volume 92 FL (80-99) Mean Corpuscular Hemoglobin 29.8 PG (27.0-31.0) Mean Corpuscular Hemoglobin Concent 32.2 G/DL (32.0-36.0) Red Cell Distribution Width 15.7 % (11.6-14.8) H Platelet Count 280 K/UL (150-450) Mean Platelet Volume 6.0 FL (6.5-10.1) L Neutrophils (%) (Auto) % (45.0-75.0) Lymphocytes (%) (Auto) % (20.0-45.0) Monocytes (%) (Auto) % (1.0-10.0) Eosinophils (%) (Auto) % (0.0-3.0) Basophils (%) (Auto) % (0.0-2.0) Differential Total Cells Counted 100 Neutrophils % (Manual) 86 % (45-75) H Lymphocytes % (Manual) 4 % (20-45) L Monocytes % (Manual) 3 % (1-10) Eosinophils % (Manual) 3 % (0-3) Basophils % (Manual) 0 % (0-2) Band Neutrophils 4 % (0-8) Platelet Estimate Adequate Platelet Morphology Normal Anisocytosis 1+ Sodium Level 139 MMOL/L (136-145) Potassium Level 4.3 MMOL/L (3.5-5.1) Chloride Level 101 MMOL/L (98-107) Carbon Dioxide Level 33 MMOL/L (21-32) H Anion Gap 5 mmol/L (5-15) Blood Urea Nitrogen 11 mg/dL (7-18) Creatinine 0.5 MG/DL (0.55-1.30) L Estimat Glomerular Filtration Rate > 60 mL/min (>60) Glucose Level 211 MG/DL (74-106) H Calcium Level 8.7 MG/DL (8.5-10.1) Current Medications Medications (Trade) Dose Ordered Sig/Chace Route PRN Reason Start Time Stop Time Status Last Admin Dose Admin Acetaminophen (Tylenol) 650 mg Q4H PRN ORAL Mild Pain/Temp > 100.5 12/12/18 14:06 01/11/19 14:05 Acetaminophen/ Hydrocodone Bitart ([place] 5/325) 1 tab Q4H PRN ORAL Moderate Pain (Pain Scale 4-6) 12/14/18 22:07 12/19/18 14:06 12/15/18 09:43 Ceftriaxone Sodium 2 gm/ Dextrose 55 ml @ 110 mls/hr DAILY IVPB 12/13/18 10:00 12/20/18 09:59 12/15/18 09:36 Chlorhexidine Gluconate ([place]annah-Hex 2%) 1 applic DAILY@2000 TOPIC 12/12/18 20:00 01/09/19 19:59 12/14/18 20:33 Dextrose (Dextrose 50%) 25 ml Q30M PRN IV Hypoglycemia 12/12/18 14:30 01/09/19 06:29 Dextrose (Dextrose 50%) 50 ml Q30M PRN IV Hypoglycemia 12/12/18 14:30 01/09/19 06:29 Diltiazem HCl (Cardizem) 60 mg EVERY 6 HOURS ORAL 12/12/18 18:00 01/09/19 17:59 12/15/18 12:21 Divalproex Sodium (Depakote Sprinkles) 500 mg Q12HR GT 12/13/18 21:00 01/12/19 20:59 12/15/18 09:34 Finasteride (Proscar) 5 mg DAILY@2100 ORAL 12/12/18 21:00 01/09/19 20:59 12/14/18 20:37 Heparin Sodium (Porcine) (Heparin 5000 units/ml) 5,000 units EVERY 8 HOURS SUBQ 12/12/18 22:00 01/10/19 21:59 12/15/18 14:50 Insulin Aspart (NovoLOG) BEFORE MEALS AND HS SUBQ 12/12/18 16:30 01/09/19 06:29 12/15/18 12:20 Lamotrigine (LaMICtal) 50 mg DAILY ORAL 12/13/18 09:00 01/09/19 08:59 12/15/18 09:35 Morphine Sulfate (Morphine Sulfate) 4 mg Q6H PRN IVP Severe Pain (Pain Scale 7-10) 12/12/18 14:07 12/19/18 14:06 12/15/18 13:18 Sitagliptin Phosphate (Januvia) 50 mg Q24H ORAL 12/13/18 06:30 01/12/19 06:29 12/15/18 05:39 Tamsulosin HCl (Flomax) 0.4 mg BEDTIME ORAL 12/12/18 21:00 01/09/19 20:59 12/14/18 20:34 Brandie Carlos M.D. Dec 15, 2018 15:57
[2018-12-15 16:00] VITALS: BP 122/78
--- NOTE | 2018-12-15 16:36 | Internal Med Progress Note ---
Subjective Date of Service: Dec 15, 2018 Physician Name Jesus Kidd Attending Physician Camacho Braun MD Current Medications Medications (Trade) Dose Ordered Sig/Chace Route PRN Reason Start Time Stop Time Status Last Admin Dose Admin Acetaminophen (Tylenol) 650 mg Q4H PRN ORAL Mild Pain/Temp > 100.5 12/12/18 14:06 01/11/19 14:05 Acetaminophen/ Hydrocodone Bitart ([place] 5/325) 1 tab Q4H PRN ORAL Moderate Pain (Pain Scale 4-6) 12/14/18 22:07 12/19/18 14:06 12/15/18 09:43 Ceftriaxone Sodium 2 gm/ Dextrose 55 ml @ 110 mls/hr DAILY IVPB 12/13/18 10:00 12/20/18 09:59 12/15/18 09:36 Chlorhexidine Gluconate ([place]-Hex 2%) 1 applic DAILY@2000 TOPIC 12/12/18 20:00 01/09/19 19:59 12/14/18 20:33 Dextrose (Dextrose 50%) 25 ml Q30M PRN IV Hypoglycemia 12/12/18 14:30 01/09/19 06:29 Dextrose (Dextrose 50%) 50 ml Q30M PRN IV Hypoglycemia 12/12/18 14:30 01/09/19 06:29 Diltiazem HCl (Cardizem) 60 mg EVERY 6 HOURS ORAL 12/12/18 18:00 01/09/19 17:59 12/15/18 12:21 Divalproex Sodium (Depakote Sprinkles) 500 mg Q12HR GT 12/13/18 21:00 01/12/19 20:59 12/15/18 09:34 Finasteride (Proscar) 5 mg DAILY@2100 ORAL 12/12/18 21:00 01/09/19 20:59 12/14/18 20:37 Heparin Sodium (Porcine) (Heparin 5000 units/ml) 5,000 units EVERY 8 HOURS SUBQ 12/12/18 22:00 01/10/19 21:59 12/15/18 14:50 Insulin Aspart (NovoLOG) BEFORE MEALS AND HS SUBQ 12/12/18 16:30 01/09/19 06:29 12/15/18 12:20 Lamotrigine (LaMICtal) 50 mg DAILY ORAL 12/13/18 09:00 01/09/19 08:59 12/15/18 09:35 Morphine Sulfate (Morphine Sulfate) 4 mg Q6H PRN IVP Severe Pain (Pain Scale 7-10) 12/12/18 14:07 12/19/18 14:06 12/15/18 13:18 Sitagliptin Phosphate (Januvia) 50 mg Q24H ORAL 12/13/18 06:30 01/12/19 06:29 12/15/18 05:39 Tamsulosin HCl (Flomax) 0.4 mg BEDTIME ORAL 12/12/18 21:00 01/09/19 20:59 12/14/18 20:34 Allergies: Coded Allergies: No Known Allergies (Unverified , 09/27/18) ROS Limited/Unobtainable: No Constitutional: Reports: no symptoms HEENT: Reports: no symptoms Cardiovascular: Reports: no symptoms Respiratory: Reports: no symptoms Gastrointestinal/Abdominal: Reports: no symptoms Genitourinary: Reports: no symptoms Neurologic/Psychiatric: Reports: no symptoms Subjective 68 YO M admitted with hematuria and fever, Now UTI and sepsis. Cover for Int gage-Dr Braun Objective Last Vital Signs Date Time Temp Pulse Resp B/P (MAP) Pulse Ox O2 Delivery O2 Flow Rate FiO2 12/15/18 16:00 97.7 116 18 122/78 (93) 98 12/15/18 14:40 Nasal Cannula 2.0 28 Laboratory Tests Test 12/15/18 06:15 White Blood Count 10.8 K/UL (4.8-10.8) Red Blood Count 3.37 M/UL (4.70-6.10) L Hemoglobin 10.0 G/DL (14.2-18.0) L Hematocrit 31.2 % (42.0-52.0) L Mean Corpuscular Volume 92 FL (80-99) Mean Corpuscular Hemoglobin 29.8 PG (27.0-31.0) Mean Corpuscular Hemoglobin Concent 32.2 G/DL (32.0-36.0) Red Cell Distribution Width 15.7 % (11.6-14.8) H Platelet Count 280 K/UL (150-450) Mean Platelet Volume 6.0 FL (6.5-10.1) L Neutrophils (%) (Auto) % (45.0-75.0) Lymphocytes (%) (Auto) % (20.0-45.0) Monocytes (%) (Auto) % (1.0-10.0) Eosinophils (%) (Auto) % (0.0-3.0) Basophils (%) (Auto) % (0.0-2.0) Differential Total Cells Counted 100 Neutrophils % (Manual) 86 % (45-75) H Lymphocytes % (Manual) 4 % (20-45) L Monocytes % (Manual) 3 % (1-10) Eosinophils % (Manual) 3 % (0-3) Basophils % (Manual) 0 % (0-2) Band Neutrophils 4 % (0-8) Platelet Estimate Adequate Platelet Morphology Normal Anisocytosis 1+ Sodium Level 139 MMOL/L (136-145) Potassium Level 4.3 MMOL/L (3.5-5.1) Chloride Level 101 MMOL/L (98-107) Carbon Dioxide Level 33 MMOL/L (21-32) H Anion Gap 5 mmol/L (5-15) Blood Urea Nitrogen 11 mg/dL (7-18) Creatinine 0.5 MG/DL (0.55-1.30) L Estimat Glomerular Filtration Rate > 60 mL/min (>60) Glucose Level 211 MG/DL (74-106) H Calcium Level 8.7 MG/DL (8.5-10.1) Intake and Output 12/14/18 12/15/18 19:00 07:00 Intake Total 55 ml Output Total 200 ml 1550 ml Balance -145 ml -1550 ml IV Total 55 ml Output Urine Total 200 ml 1550 ml # Bowel Movements 1 Objective PHYSICAL EXAMINATION: GENERAL: The patient is a well-developed and well-nourished thin-appearing male, in no apparent distress. HEENT: Eyes, pupils are equal and responsive to light and accommodation. Extraocular movements are intact. NECK: Supple without lymphadenopathy. CHEST: Lungs are clear to auscultation bilaterally without wheezes or rales. CARDIOVASCULAR: Regular rhythm and rate. S1 and S2 are normal without murmurs, rubs, or gallops. ABDOMEN: Soft, nontender, and nondistended. Positive bowel sounds. No evidence of hepatosplenomegaly. Currently, no rebound or guarding noted. EXTREMITIES: Negative for clubbing, cyanosis, or edema. RECTAL/GENITAL: Not performed. NEUROLOGIC: Cranial nerves II through XII are grossly intact without focal deficits. Assessment/Plan Assessment/Plan ASSESSMENT: This is a 68-year-old male. 1. Fever. 2. Hematuria. 3. Leukocytosis. 4. Brain cancer. 5. Seizure disorder. 6. Diabetes type 2. 7. Cerebrovascular disease. 8. Right hemiparesis. 9. Hypertension. 10. Coronary artery disease. 11. Expressive aphasia. 12. Urinary tract infection=E. Coli 13. Sepsis=E. Coli TREATMENT: 1. Fever/hematuria/leukocytosis, may be secondary to urinary tract infection versus sepsis. Urine culture is pending. The patient has been started empirically on intravenous cefepime. Await urine culture results. 2. Brain cancer. 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 3. Seizure disorder. Continue Depakote and Vimpat as above. 4. Diabetes type 2. NovoLog sliding scale has been instituted. 5. Cerebrovascular disease/right hemiparesis. 6. Hypertension. 7. Coronary artery disease. 8. Expressive aphasia. 9. aBX=ceftriaxone D# 3/-end 12/25/18 Jesus Kidd MD Dec 15, 2018 16:36
--- NOTE | 2018-12-15 19:08 | NUR ---
HAND-OFF: Report given to CHIDI Deluca. Patient sleeping comfortably. No SOB observed.
--- NOTE | 2018-12-15 19:32 | NUR ---
NURSE NOTES: Report received from CHIDI Pineda, Pt is in stable condition with no signs or symptoms of cardiopulmonary distress noted. Bed in the lowest position, bed brakes engaged, side rails up x 3 and padded, and call light within reach. Will continue to monitor.
[2018-12-15 20:00] VITALS: BP 146/88
[2018-12-15] MEDS: Dyna-Hex 2% Top Sol 2oz TOPIC SCH (20:31)
[2018-12-15] MEDS: Tamsulosin 0.4mg cap ORAL SCH (20:32)
[2018-12-16] VITALS: BP 133/87
[2018-12-16] MEDS: dilTIAZem HCl 60mg tab ORAL SCH ×2 (00:47→05:58)
--- NOTE | 2018-12-16 02:51 | Neurology Progress Note ---
Interim History Interim History ROS Limited/Unobtainable: Yes Complaints: AMS Events: December 16, [address] Denis Dias Review of Systems All Systems: reviewed and negative except above Objective Physical Exam Last Vital Signs Date Time Temp Pulse Resp B/P (MAP) Pulse Ox O2 Delivery O2 Flow Rate FiO2 12/16/18 00:47 123 133/87 12/16/18 00:00 97.7 19 99 12/15/18 21:00 Nasal Cannula 2.0 12/15/18 14:40 28 Laboratory Tests Test 12/15/18 06:15 White Blood Count 10.8 K/UL (4.8-10.8) Red Blood Count 3.37 M/UL (4.70-6.10) L Hemoglobin 10.0 G/DL (14.2-18.0) L Hematocrit 31.2 % (42.0-52.0) L Mean Corpuscular Volume 92 FL (80-99) Mean Corpuscular Hemoglobin 29.8 PG (27.0-31.0) Mean Corpuscular Hemoglobin Concent 32.2 G/DL (32.0-36.0) Red Cell Distribution Width 15.7 % (11.6-14.8) H Platelet Count 280 K/UL (150-450) Mean Platelet Volume 6.0 FL (6.5-10.1) L Neutrophils (%) (Auto) % (45.0-75.0) Lymphocytes (%) (Auto) % (20.0-45.0) Monocytes (%) (Auto) % (1.0-10.0) Eosinophils (%) (Auto) % (0.0-3.0) Basophils (%) (Auto) % (0.0-2.0) Differential Total Cells Counted 100 Neutrophils % (Manual) 86 % (45-75) H Lymphocytes % (Manual) 4 % (20-45) L Monocytes % (Manual) 3 % (1-10) Eosinophils % (Manual) 3 % (0-3) Basophils % (Manual) 0 % (0-2) Band Neutrophils 4 % (0-8) Platelet Estimate Adequate Platelet Morphology Normal Anisocytosis 1+ Sodium Level 139 MMOL/L (136-145) Potassium Level 4.3 MMOL/L (3.5-5.1) Chloride Level 101 MMOL/L (98-107) Carbon Dioxide Level 33 MMOL/L (21-32) H Anion Gap 5 mmol/L (5-15) Blood Urea Nitrogen 11 mg/dL (7-18) Creatinine 0.5 MG/DL (0.55-1.30) L Estimat Glomerular Filtration Rate > 60 mL/min (>60) Glucose Level 211 MG/DL (74-106) H Calcium Level 8.7 MG/DL (8.5-10.1) General: well developed, other Head: normocophalic, other Neck: no rigidity EENT: benign Neurologic Exam Mental Status: awake, alert, other Speech: other Language: other Cranial Nerve II: other Cranial Nerves III, IV, : PERRLA, EOMI, other Cranial Nerve V: other Cranial Nerve VII: other Cranial Nerve VIII: other Cranial Nerve IX: other Cranial Nerve XI: other Cranial Nerve XII: other Motor System: other Sensory: other Coordination: other Deep Tendon Reflexes: 1+ bicep (L), 1+ bicep (R), 1+ tricep (L), 1+ tricep (R) , 1+ brachioradialis (L), 1+ brachioradialis (R), 1+ knee (L), 1+ knee (R), 1+ ankle (L), 1+ ankle (R) Stance: other Gait: other Objective Eyes opening spontaneously- Right hemiplegia but w/d x 4 , less strength on RLE /RUE - PERLL - visual joe unable to be obtained but partial hemianopia - preferential gaze to left but can overcome and track with eyes past midline. Impression/Recommendations Problems: (1) Lactic acid increased (2) Bacteremia (3) Diabetes mellitus (4) Hypertension (5) Dysphagia (6) Oligodendroglioma (7) Sacral decubitus ulcer (8) History of CVA (cerebrovascular accident) (9) Severe malnutrition (10) Anemia (11) PEG (percutaneous endoscopic gastrostomy) adjustment/replacement/removal (12) Sepsis (13) Acute encephalopathy (14) acute toxic encephalopathy (15) Uncontrolled seizures (16) Tachycardia (17) Acute respiratory failure (18) UTI (urinary tract infection) (19) Hematuria Status: stable Diagnostic Impression Afebrile, normotensive, with leukocytosis- neurological exam largely stable. Recommendations COntinue PEG feeds Nutritional consult may help SBP<140 Maintain normothermia Maintain normoglycemia with ISS Na 135-145 HgB>8 Replace/ Replete Lytes - Magnesium/ Calcium No indication for neuroimaging at this time Q4 hr Neuro Obs Vidya Sun N.P. Dec 16, 2018 02:51
[2018-12-16 04:00] VITALS: BP 132/64
[2018-12-16] MEDS: Morphine Sulfate 4mg/ml Inj (IV USE ONLY) IVP PRN (04:18)
[2018-12-16] MEDS: sitaGLIPtin 50mg tab ORAL SCH (05:58)
[2018-12-16] MEDS: Heparin 5000 units/ml inj SUBQ SCH ×3 (06:01→21:53)
[2018-12-16] MEDS: NovoLOG Insulin Flexpen SUBQ SCH ×4 (06:16→21:58)
--- NOTE | 2018-12-16 07:31 | NUR ---
NURSE NOTES: Report received from CHIDI Deluca. Patient awake. AOx1. Denies pain or SOB. No breathing distress noted. Noticed dried blood at Mota insertion site. No blood noticed on Mota drainage bag or tube at this time, will continue to monitor. Tube feeding changed by night RN, running at the goal rate. Patient in rectal tube, no drainage noted at this time. Bed on lowest position, side rails padded and upx2, brakes engaged, alarm on. Call light placed near Patient's left hand.
[2018-12-16 08:00] VITALS: BP 133/80
--- NOTE | 2018-12-16 08:17 | NUR ---
HAND-OFF: Report given to CHIDI Pineda.
[2018-12-16 08:42] LABS: BASOPHILS % (AUTO) 0.9 % (0.0-2.0); EOSINOPHILS % (AUTO) 1.5 % (0.0-3.0); HEMATOCRIT 32.8 % (42.0-52.0); HEMOGLOBIN 10.3 G/DL (14.2-18.0); LYMPHOCYTES % (AUTO) 11.6 % (20.0-45.0); MEAN CORPUSCULAR VOLUME 91 FL (80-99); MONOCYTES % (AUTO) 5.6 % (1.0-10.0); NEUTROPHILS % (AUTO) 80.4 % (45.0-75.0); PLATELET COUNT 294 K/UL (150-450); RED CELL DISTRIBUTION WIDTH 14.9 % (11.6-14.8); WHITE BLOOD COUNT 8.9 K/UL (4.8-10.8)
[2018-12-16 08:50] LABS: ANION GAP 2 mmol/L (5-15); BLOOD UREA NITROGEN 12 mg/dL (7-18); CARBON DIOXIDE 38 MMOL/L (21-32); CHLORIDE 96 MMOL/L (98-107); CREATININE 0.5 MG/DL (0.55-1.30); POTASSIUM 4.4 MMOL/L (3.5-5.1); SODIUM 136 MMOL/L (136-145)
[2018-12-16] MEDS: Depakote 125mg Sprinkles GT SCH ×2 (09:35→21:45)
[2018-12-16] MEDS: cefTRIAXone 2 GM in D5W 55 ML IVPB SCH (09:36)
--- NOTE | 2018-12-16 10:01 | Pulmonology Progress Note ---
Assessment/Plan Problems: (1) At high risk for aspiration (2) Sepsis (3) Bacteremia (4) Acute encephalopathy (5) Hematuria (6) Oligodendroglioma (7) Severe malnutrition (8) Diabetes mellitus (9) Hypertension (10) History of CVA (cerebrovascular accident) (11) Sacral decubitus ulcer (12) Tachycardia Assessment/Plan still sinus tachy looks better heart rate still tachy, sinus rhythm now wbc decreasing continue abx check electrolytes no more seizure tolerating feeding Subjective ROS Limited/Unobtainable: No Constitutional: Reports: no symptoms HEENT: Repors: no symptoms Respiratory: Reports: no symptoms Allergies: Coded Allergies: No Known Allergies (Unverified , 09/27/18) Objective Last 24 Hour Vital Signs Date Time Temp Pulse Resp B/P (MAP) Pulse Ox O2 Delivery O2 Flow Rate FiO2 12/16/18 08:00 98.9 114 20 133/80 (97) 100 12/16/18 05:58 107 132/64 12/16/18 04:48 97.7 12/16/18 04:00 98.3 107 20 132/64 (86) 98 12/16/18 04:00 119 12/16/18 00:47 123 133/87 12/16/18 00:00 97.7 123 19 133/87 (102) 99 12/16/18 00:00 123 12/15/18 21:00 Nasal Cannula 2.0 12/15/18 20:00 120 12/15/18 20:00 98.5 121 19 146/88 (107) 99 12/15/18 17:18 118 122/78 12/15/18 16:00 97.7 116 18 122/78 (93) 98 12/15/18 16:00 122 12/15/18 14:40 98 Nasal Cannula 2.0 28 12/15/18 12:21 100 127/86 12/15/18 12:00 122 12/15/18 12:00 97.8 115 18 127/86 (100) 100 Intake and Output 12/15/18 12/16/18 18:59 06:59 Output Total 900 ml 650 ml Balance -900 ml -650 ml Output Urine Total 900 ml 650 ml # Bowel Movements 1 1 General Appearance: WD/WN HEENT: normocephalic Respiratory/Chest: chest wall non-tender, lungs clear, chest wall tender Cardiovascular: normal rate, regularly irregular Abdomen: normal bowel sounds, soft, non tender Neurologic/Psychiatric: lock up worker II-XII grossly normal Microbiology Date/Time Source Procedure Growth Status 12/14/18 14:25 Blood Blood Culture - Preliminary NO GROWTH AFTER 24 HOURS Resulted 12/14/18 14:15 Blood Blood Culture - Preliminary NO GROWTH AFTER 24 HOURS Resulted Laboratory Tests 12/16/18 08:30: White Blood Count 8.9, Red Blood Count 3.60L, Hemoglobin 10.3L, Hematocrit 32.8L , Mean Corpuscular Volume 91, Mean Corpuscular Hemoglobin 28.6, Mean Corpuscular Hemoglobin Concent 31.4L, Red Cell Distribution Width 14.9H, Platelet Count 294, Mean Platelet Volume 5.9L, Neutrophils (%) (Auto) 80.4H, Lymphocytes (%) (Auto) 11.6L, Monocytes (%) (Auto) 5.6, Eosinophils (%) (Auto) 1.5, Basophils (%) (Auto) 0.9, Sodium Level 136, Potassium Level 4.4, Chloride Level 96L, Carbon Dioxide Level 38H, Anion Gap 2L, Blood Urea Nitrogen 12, Creatinine 0.5L, Estimat Glomerular Filtration Rate > 60, Glucose Level 164H, Calcium Level 9.0 Current Medications Medications (Trade) Dose Ordered Sig/Chace Route PRN Reason Start Time Stop Time Status Last Admin Dose Admin Acetaminophen (Tylenol) 650 mg Q4H PRN ORAL Mild Pain/Temp > 100.5 12/12/18 14:06 01/11/19 14:05 Acetaminophen/ Hydrocodone Bitart ([place] 5/325) 1 tab Q4H PRN ORAL Moderate Pain (Pain Scale 4-6) 12/14/18 22:07 12/19/18 14:06 12/15/18 09:43 Ceftriaxone Sodium 2 gm/ Dextrose 55 ml @ 110 mls/hr DAILY IVPB 12/13/18 10:00 12/20/18 09:59 12/16/18 09:36 Chlorhexidine Gluconate ([place]-Hex 2%) 1 applic DAILY@2000 TOPIC 12/12/18 20:00 01/09/19 19:59 12/15/18 20:31 Dextrose (Dextrose 50%) 25 ml Q30M PRN IV Hypoglycemia 12/12/18 14:30 01/09/19 06:29 Dextrose (Dextrose 50%) 50 ml Q30M PRN IV Hypoglycemia 12/12/18 14:30 01/09/19 06:29 Diltiazem HCl (Cardizem) 60 mg EVERY 6 HOURS ORAL 12/12/18 18:00 01/09/19 17:59 12/16/18 05:58 Divalproex Sodium (Depakote Sprinkles) 500 mg Q12HR GT 12/13/18 21:00 01/12/19 20:59 12/16/18 09:35 Finasteride (Proscar) 5 mg DAILY@2100 ORAL 12/12/18 21:00 01/09/19 20:59 12/15/18 20:32 Heparin Sodium (Porcine) (Heparin 5000 units/ml) 5,000 units EVERY 8 HOURS SUBQ 12/12/18 22:00 01/10/19 21:59 12/16/18 06:01 Insulin Aspart (NovoLOG) BEFORE MEALS AND HS SUBQ 12/12/18 16:30 01/09/19 06:29 12/16/18 06:16 Lamotrigine (LaMICtal) 50 mg DAILY ORAL 12/13/18 09:00 01/09/19 08:59 12/16/18 09:35 Morphine Sulfate (Morphine Sulfate) 4 mg Q6H PRN IVP Severe Pain (Pain Scale 7-10) 12/12/18 14:07 12/19/18 14:06 12/16/18 04:18 Sitagliptin Phosphate (Januvia) 50 mg Q24H ORAL 12/13/18 06:30 01/12/19 06:29 12/16/18 05:58 Tamsulosin HCl (Flomax) 0.4 mg BEDTIME ORAL 12/12/18 21:00 01/09/19 20:59 12/15/18 20:32 Raul Feng MD Dec 16, 2018 10:01
--- NOTE | 2018-12-16 11:47 | Cardiac Electrophysiology PN ---
Assessment/Plan Assessment/Plan 1. SVT with rapid ventricular response. Increase Cardizem to 90 q 6. EF 50% 2. Troponin leak 1.7> 1.3. No CP 3. Hypertension. On Cardizem 90 q6 4. Sinus tach likely due to sepsis as WBC was almost 20K on 12/13/18 . On Abx WBC down to 10 K 5. Dysphagia, status post PEG placement. Had Swallow eval yesterday 6. Diabetes. 7. Encephalopathy. 8. Hematuria. Resolved after Mota was advanced by Dr Rousseau 9. History of glioblastoma. DW RN Subjective Subjective In Sinus tach 130s despite Cardizem . Confused in restraints. Swallow eval OKed puree diet but he holds in mouth Objective Last 24 Hour Vital Signs Date Time Temp Pulse Resp B/P (MAP) Pulse Ox O2 Delivery O2 Flow Rate FiO2 12/16/18 09:00 Nasal Cannula 2.0 12/16/18 08:00 113 12/16/18 08:00 98.9 114 20 133/80 (97) 100 12/16/18 05:58 107 132/64 12/16/18 04:48 97.7 12/16/18 04:00 98.3 107 20 132/64 (86) 98 12/16/18 04:00 119 12/16/18 00:47 123 133/87 12/16/18 00:00 97.7 123 19 133/87 (102) 99 12/16/18 00:00 123 12/15/18 21:00 Nasal Cannula 2.0 12/15/18 20:00 120 12/15/18 20:00 98.5 121 19 146/88 (107) 99 12/15/18 17:18 118 122/78 12/15/18 16:00 97.7 116 18 122/78 (93) 98 12/15/18 16:00 122 12/15/18 14:40 98 Nasal Cannula 2.0 28 12/15/18 12:21 100 127/86 12/15/18 12:00 122 12/15/18 12:00 97.8 115 18 127/86 (100) 100 Intake and Output 12/15/18 12/16/18 19:00 07:00 Output Total 900 ml 650 ml Balance -900 ml -650 ml Output Urine Total 900 ml 650 ml # Bowel Movements 1 1 Laboratory Tests Test 12/16/18 08:30 White Blood Count 8.9 K/UL (4.8-10.8) Red Blood Count 3.60 M/UL (4.70-6.10) L Hemoglobin 10.3 G/DL (14.2-18.0) L Hematocrit 32.8 % (42.0-52.0) L Mean Corpuscular Volume 91 FL (80-99) Mean Corpuscular Hemoglobin 28.6 PG (27.0-31.0) Mean Corpuscular Hemoglobin Concent 31.4 G/DL (32.0-36.0) L Red Cell Distribution Width 14.9 % (11.6-14.8) H Platelet Count 294 K/UL (150-450) Mean Platelet Volume 5.9 FL (6.5-10.1) L Neutrophils (%) (Auto) 80.4 % (45.0-75.0) H Lymphocytes (%) (Auto) 11.6 % (20.0-45.0) L Monocytes (%) (Auto) 5.6 % (1.0-10.0) Eosinophils (%) (Auto) 1.5 % (0.0-3.0) Basophils (%) (Auto) 0.9 % (0.0-2.0) Sodium Level 136 MMOL/L (136-145) Potassium Level 4.4 MMOL/L (3.5-5.1) Chloride Level 96 MMOL/L (98-107) L Carbon Dioxide Level 38 MMOL/L (21-32) H Anion Gap 2 mmol/L (5-15) L Blood Urea Nitrogen 12 mg/dL (7-18) Creatinine 0.5 MG/DL (0.55-1.30) L Estimat Glomerular Filtration Rate > 60 mL/min (>60) Glucose Level 164 MG/DL (74-106) H Calcium Level 9.0 MG/DL (8.5-10.1) Microbiology Date/Time Source Procedure Growth Status 12/14/18 14:25 Blood Blood Culture - Preliminary NO GROWTH AFTER 24 HOURS Resulted 12/14/18 14:15 Blood Blood Culture - Preliminary NO GROWTH AFTER 24 HOURS Resulted Objective HEAD AND NECK: No JVD. LUNGS: Clear. CARDIOVASCULAR: Tachy Regular S1 and S2 with no gallop or murmur. ABDOMEN: Status post G-tube. EXTREMITIES: No pitting edema. Huy Valladares MD Dec 16, 2018 11:47
[2018-12-16 12:00] VITALS: BP 132/95
--- NOTE | 2018-12-16 12:05 | Internal Med Progress Note ---
Subjective Date of Service: Dec 16, 2018 Physician Name KiddJesus Attending Physician Camacho Braun MD Current Medications Medications (Trade) Dose Ordered Sig/Chace Route PRN Reason Start Time Stop Time Status Last Admin Dose Admin Acetaminophen (Tylenol) 650 mg Q4H PRN ORAL Mild Pain/Temp > 100.5 12/12/18 14:06 01/11/19 14:05 Acetaminophen/ Hydrocodone Bitart ([place] 5/325) 1 tab Q4H PRN ORAL Moderate Pain (Pain Scale 4-6) 12/14/18 22:07 12/19/18 14:06 12/15/18 09:43 Ceftriaxone Sodium 2 gm/ Dextrose 55 ml @ 110 mls/hr DAILY IVPB 12/13/18 10:00 12/20/18 09:59 12/16/18 09:36 Chlorhexidine Gluconate ([place]-Hex 2%) 1 applic DAILY@2000 TOPIC 12/12/18 20:00 01/09/19 19:59 12/15/18 20:31 Dextrose (Dextrose 50%) 25 ml Q30M PRN IV Hypoglycemia 12/12/18 14:30 01/09/19 06:29 Dextrose (Dextrose 50%) 50 ml Q30M PRN IV Hypoglycemia 12/12/18 14:30 01/09/19 06:29 Diltiazem HCl (Cardizem) 90 mg Q6HR ORAL 12/16/18 12:00 01/15/19 11:59 Divalproex Sodium (Depakote Sprinkles) 500 mg Q12HR GT 12/13/18 21:00 01/12/19 20:59 12/16/18 09:35 Finasteride (Proscar) 5 mg DAILY@2100 ORAL 12/12/18 21:00 01/09/19 20:59 12/15/18 20:32 Heparin Sodium (Porcine) (Heparin 5000 units/ml) 5,000 units EVERY 8 HOURS SUBQ 12/12/18 22:00 01/10/19 21:59 12/16/18 06:01 Insulin Aspart (NovoLOG) BEFORE MEALS AND HS SUBQ 12/12/18 16:30 01/09/19 06:29 12/16/18 06:16 Lamotrigine (LaMICtal) 50 mg DAILY ORAL 12/13/18 09:00 01/09/19 08:59 12/16/18 09:35 Morphine Sulfate (Morphine Sulfate) 4 mg Q6H PRN IVP Severe Pain (Pain Scale 7-10) 12/12/18 14:07 12/19/18 14:06 12/16/18 04:18 Sitagliptin Phosphate (Januvia) 50 mg Q24H ORAL 12/13/18 06:30 01/12/19 06:29 12/16/18 05:58 Tamsulosin HCl (Flomax) 0.4 mg BEDTIME ORAL 12/12/18 21:00 01/09/19 20:59 12/15/18 20:32 Allergies: Coded Allergies: No Known Allergies (Unverified , 09/27/18) ROS Limited/Unobtainable: Yes Subjective 68 YO M admitted with hematuria and fever, Now UTI and sepsis. Cover for Int med-Dr Braun. Await bed at [facility] Objective Last Vital Signs Date Time Temp Pulse Resp B/P (MAP) Pulse Ox O2 Delivery O2 Flow Rate FiO2 12/16/18 09:00 Nasal Cannula 2.0 12/16/18 08:00 113 12/16/18 08:00 98.9 20 133/80 (97) 100 12/15/18 14:40 28 Laboratory Tests Test 12/16/18 08:30 White Blood Count 8.9 K/UL (4.8-10.8) Red Blood Count 3.60 M/UL (4.70-6.10) L Hemoglobin 10.3 G/DL (14.2-18.0) L Hematocrit 32.8 % (42.0-52.0) L Mean Corpuscular Volume 91 FL (80-99) Mean Corpuscular Hemoglobin 28.6 PG (27.0-31.0) Mean Corpuscular Hemoglobin Concent 31.4 G/DL (32.0-36.0) L Red Cell Distribution Width 14.9 % (11.6-14.8) H Platelet Count 294 K/UL (150-450) Mean Platelet Volume 5.9 FL (6.5-10.1) L Neutrophils (%) (Auto) 80.4 % (45.0-75.0) H Lymphocytes (%) (Auto) 11.6 % (20.0-45.0) L Monocytes (%) (Auto) 5.6 % (1.0-10.0) Eosinophils (%) (Auto) 1.5 % (0.0-3.0) Basophils (%) (Auto) 0.9 % (0.0-2.0) Sodium Level 136 MMOL/L (136-145) Potassium Level 4.4 MMOL/L (3.5-5.1) Chloride Level 96 MMOL/L (98-107) L Carbon Dioxide Level 38 MMOL/L (21-32) H Anion Gap 2 mmol/L (5-15) L Blood Urea Nitrogen 12 mg/dL (7-18) Creatinine 0.5 MG/DL (0.55-1.30) L Estimat Glomerular Filtration Rate > 60 mL/min (>60) Glucose Level 164 MG/DL (74-106) H Calcium Level 9.0 MG/DL (8.5-10.1) Microbiology Date/Time Source Procedure Growth Status 12/14/18 14:25 Blood Blood Culture - Preliminary NO GROWTH AFTER 24 HOURS Resulted 12/14/18 14:15 Blood Blood Culture - Preliminary NO GROWTH AFTER 24 HOURS Resulted Intake and Output 12/15/18 12/16/18 19:00 07:00 Output Total 900 ml 650 ml Balance -900 ml -650 ml Output Urine Total 900 ml 650 ml # Bowel Movements 1 1 Objective PHYSICAL EXAMINATION: GENERAL: The patient is a well-developed and well-nourished thin-appearing male, in no apparent distress. HEENT: Eyes, pupils are equal and responsive to light and accommodation. Extraocular movements are intact. NECK: Supple without lymphadenopathy. CHEST: Lungs are clear to auscultation bilaterally without wheezes or rales. CARDIOVASCULAR: Regular rhythm and rate. S1 and S2 are normal without murmurs, rubs, or gallops. ABDOMEN: Soft, nontender, and nondistended. Positive bowel sounds. No evidence of hepatosplenomegaly. Currently, no rebound or guarding noted. EXTREMITIES: Negative for clubbing, cyanosis, or edema. RECTAL/GENITAL: Not performed. NEUROLOGIC: Cranial nerves II through XII are grossly intact without focal deficits. Assessment/Plan Assessment/Plan ASSESSMENT: This is a 68-year-old male. 1. Fever. 2. Hematuria. 3. Leukocytosis. 4. Brain cancer. 5. Seizure disorder. 6. Diabetes type 2. 7. Cerebrovascular disease. 8. Right hemiparesis. 9. Hypertension. 10. Coronary artery disease. 11. Expressive aphasia. 12. Urinary tract infection=E. Coli 13. Sepsis=E. Coli TREATMENT: 1. Fever/hematuria/leukocytosis, may be secondary to urinary tract infection versus sepsis. Urine culture is pending. The patient has been started empirically on intravenous cefepime. Await urine culture results. 2. Brain cancer. 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 3. Seizure disorder. Continue Depakote and Vimpat as above. 4. Diabetes type 2. NovoLog sliding scale has been instituted. 5. Cerebrovascular disease/right hemiparesis. 6. Hypertension. 7. Coronary artery disease. 8. Expressive aphasia. 9. aBX=ceftriaxone D# /-end 12/25/18 10. D/C to [facility] when bed avail Jesus Kidd MD Dec 16, 2018 12:05
[2018-12-16] MEDS: dilTIAZem HCl 90mg tab ORAL SCH ×2 (12:14→17:22)
--- NOTE | 2018-12-16 13:10 | NUR ---
SPEECH/SWALLOW THERAPY NOTE: SWALLOW STATUS: PATIENT DISLIKES NECTAR THICK LIQUIDS SO CLEARED FOR TSP LEVEL THIN LIQUIDS. ALERT BUT LOOKS TIRED. GETTING MEAL WITH CHIDI VILLANUEVA. PER RN, PATIENT SOMTIMES COUGHING DURING MEAL WITH THE NECTAR THICK SOUP TSP LEVEL. REVIEWED ASPIRATION AND REFLUX PRECAUTIONS OF TSP ONLY, UPRIGHT TOLERATED, 2 HARD SWALLOWS, CHIN TUCK, MORE TIMES, AND TURN HEAD RIGHT OR LEFT FOR MORE PRESSURE ON THE PHARYNGEAL MUSCLES. GOALS MET FOR STAFF EDUCATED/TRAINED IN THESE POSTED ASP/REFLUX PRECAUTION FOR ORAL GRAT. STILL RECEIVING PEG FEEDINGS FOR PRIMARY SOURCE OF FEEDINGS. CLARIFIED WITH THE RN, THAT IS IT OK FOR PATIENT TO HAVE TSP LEVEL THIN LIQUIDS FOR PREFERENCE AND QUALITY OF LIFE (NO ASP JUST SLIGHT PENETRATION ON TSP LEVEL). ON ONE OCCASION, PATIENT'S VOICE WAS WET AND TOLD TO COUGH AND RESWALLOW WHICH HE DID RESULTING IN A CLEAR VOICE. GOALS NOT MET FOR INTAKE SINCE IT IS ONLY ORAL GRAT. WILL DO TRIAL TX WITH PATIENT WHEN HE IS NOT HAVING A MEAL. PLAN: CONTINUE WITH PLAN OF CARE IN MOD BARIUM SWALLOW STUDY REPORT D/W RICH MURILLO AND PATIENT WHO IS VERY TIRED AND NOT TALKING MUCH. Addendum: 12/16/18 at 1320 by RUEL MEIER READING RECOVERY TEACHER EDUCATE/TRAINED VICKIE CANTRELL, REGARDING ASPIRATION AND REFLUX PRECAUTIONS. SHE FED PATIENT 8 TSP AND THEN HE STARTED TO COUGH. LATER HE SQUEEZED HIS MOUTH CLOSED AND REFUSED MORE PO INTAKE.
--- NOTE | 2018-12-16 13:43 | Surgery Progress Note ---
Surgery Progress Note Subjective Symptoms: improved Objective Last 24 Hour Vital Signs Date Time Temp Pulse Resp B/P (MAP) Pulse Ox O2 Delivery O2 Flow Rate FiO2 12/16/18 12:14 113 132/95 12/16/18 12:00 133 12/16/18 12:00 98.5 128 20 132/95 (107) 98 12/16/18 09:00 Nasal Cannula 2.0 12/16/18 08:00 113 12/16/18 08:00 98.9 114 20 133/80 (97) 100 12/16/18 05:58 107 132/64 12/16/18 04:48 97.7 12/16/18 04:00 98.3 107 20 132/64 (86) 98 12/16/18 04:00 119 12/16/18 00:47 123 133/87 12/16/18 00:00 97.7 123 19 133/87 (102) 99 12/16/18 00:00 123 12/15/18 21:00 Nasal Cannula 2.0 12/15/18 20:00 120 12/15/18 20:00 98.5 121 19 146/88 (107) 99 12/15/18 17:18 118 122/78 12/15/18 16:00 97.7 116 18 122/78 (93) 98 12/15/18 16:00 122 12/15/18 14:40 98 Nasal Cannula 2.0 28 I&O Intake and Output 12/15/18 12/16/18 19:00 07:00 Output Total 900 ml 650 ml Balance -900 ml -650 ml Output Urine Total 900 ml 650 ml # Bowel Movements 1 1 Dressing: saturated Wound: other Drains: other Cardiovascular: RSR Respiratory: clear, decreased breath sounds Abdomen: soft, present bowel sounds, non-distended Extremities: no cyanosis Laboratory Tests Test 12/16/18 08:30 White Blood Count 8.9 K/UL (4.8-10.8) Red Blood Count 3.60 M/UL (4.70-6.10) L Hemoglobin 10.3 G/DL (14.2-18.0) L Hematocrit 32.8 % (42.0-52.0) L Mean Corpuscular Volume 91 FL (80-99) Mean Corpuscular Hemoglobin 28.6 PG (27.0-31.0) Mean Corpuscular Hemoglobin Concent 31.4 G/DL (32.0-36.0) L Red Cell Distribution Width 14.9 % (11.6-14.8) H Platelet Count 294 K/UL (150-450) Mean Platelet Volume 5.9 FL (6.5-10.1) L Neutrophils (%) (Auto) 80.4 % (45.0-75.0) H Lymphocytes (%) (Auto) 11.6 % (20.0-45.0) L Monocytes (%) (Auto) 5.6 % (1.0-10.0) Eosinophils (%) (Auto) 1.5 % (0.0-3.0) Basophils (%) (Auto) 0.9 % (0.0-2.0) Sodium Level 136 MMOL/L (136-145) Potassium Level 4.4 MMOL/L (3.5-5.1) Chloride Level 96 MMOL/L (98-107) L Carbon Dioxide Level 38 MMOL/L (21-32) H Anion Gap 2 mmol/L (5-15) L Blood Urea Nitrogen 12 mg/dL (7-18) Creatinine 0.5 MG/DL (0.55-1.30) L Estimat Glomerular Filtration Rate > 60 mL/min (>60) Glucose Level 164 MG/DL (74-106) H Calcium Level 9.0 MG/DL (8.5-10.1) Plan Problems: (1) Lactic acid increased (2) Diabetes mellitus (3) Hypertension (4) Dysphagia (5) Oligodendroglioma (6) Sacral decubitus ulcer Assessment & Plan: Pt presented on admission with full thickness sacral pressure injury with undermining and bone visible at base of wound.Base of wound 90% granular with an area of 10% loose slough noted at undermined area at 11-12o'clock. Wound is malodorous. Small amt. brown exudate noted. Dark brown borders noted. (L)8.5cm x (W)7cm x (D)1.9cm undermining 9-5 by 3.5cm @9o'clock. Bilat groin areas and scrotum erythematous. Non-blanchable erythema without fluctuance noted to R heel and plantar R heel. Non-blanchable erythema without fluctuance noted to L heel. Tx.Plan: Cleanse sacral wound with Saline. Loosely pack with Hydrogel infused Kerlix. Apply Moisture Barrier periwound. Cover with Optifoam.Change Twice Daily and PRN. Apply Moisture Barrier Paste to Bilat groin areas and Scrotum with each Incontinence care. Apply Cavilon Skin Barrier to both Heels. Cover each heel with Optifoam drsg. Change every 7 days and prn. Air Fluidized Mattress. Reposition at least every 2hours or as tolerated. Position with Pillow between knees. Off-load heels with Pillow. (7) History of CVA (cerebrovascular accident) (8) Severe malnutrition Assessment & Plan: DAILY ESTIMATED NEEDS: Needs based on wound, wasting, DM / 59kg 30-35 kcals/kg 5053-7338 total kcals 1.25-2 g protein/kg 74-118 g total protein 25-30 mL/kg 9226-7409 total fluid mLs NUTRITION DIAGNOSIS: * Increased kcal/prot needs R/T wound healing, wt loss as evidenced by recent history of sacral stage 4 wound, severe BL LE wasting, 91% [place] Body Weight. month. * Swallowing difficulty R/T dysphagia w/ h/o brain tumor and CVA as evidenced by s/p recent PEG placement, pending GT feeding. (CURRENT TF:Glytrol @45) ENTERAL NUTRITION RECOMMENDATIONS: Glucerna 1.5 @ 50ml/hr x 24 hrs to provide 1200ml, 1800kcal, 99g prot, 911ml free water * Start @30ml/hr, advance as tolerated 10ml/hr q4-6 hrs to goal * HOB over 30 degrees/ water flush per MD ------ ADDITIONAL RECOMMENDATIONS: * Calibrated bedscale wt for accurate CBW * Check lytes daily w/ TF, replete as needed * Wound healing: Ziyad 1pkt BID F/up w/ WC eval * Monitor BGs closely, need for tighter regimen (BGs in the 200's) -> consider long acting insulin (9) Anemia (10) PEG (percutaneous endoscopic gastrostomy) adjustment/replacement/removal (11) Sepsis Assessment & Plan: leukocytosis resolved anemia lactic acidosis - resolved on IV abx as per ID improving wounds unlikely etiology as chronic no acute infection noted in wounds will monitor (12) Acute encephalopathy (13) acute toxic encephalopathy (14) Uncontrolled seizures (15) Tachycardia (16) Acute respiratory failure (17) UTI (urinary tract infection) (18) Hematuria Harry Rivas Dec 16, 2018 13:43
--- NOTE | 2018-12-16 15:10 | NUR ---
CASE MANAGEMENT:REVIEW 12/16/18 SI:E COLI SEPSIS. TROPONIN LEAK. SVT 98.5 128 20 132/95 98% ON 2L/NC H/H-10.3/32.8 IS:IV ROCEPHIN Q24 DEPAKOTE GT Q12 LAMICTAL GT QD JANUVIA GT Q24 HEPARIN SQ Q8HRS FLOMAX GT QHS CARDIZEM GT Q6HRS : TELEMETRY STATUS DCP: FROM [facility]
--- NOTE | 2018-12-16 15:19 | NUR ---
DISCHARGE PLANNING FAXED CLINICALS TO [facility] T: [phone] F: [phone] AWAIT ACCEPTANCE AND ASSIGNED ROOM NUMBER Addendum: 12/16/18 at 1625 by PURVI WINN LVN LVN RECEIVED CALL FROM JOEY AT [facility] THEY WILL ACCEPT PATIENT BACK WHEN READY TO DISCHARGE LONG MRSA AND VRE ARE COLONIZED COLONIZATION DISCUSSED WITH LEONIDAS
[2018-12-16 16:00] VITALS: BP 110/79
--- NOTE | 2018-12-16 18:03 | Infectious Diseases Prog Note ---
Assessment/Plan Assessment/Plan 68 yo male who was recently admitted 11/12/18 - 11/17/18 with PNA, UTI and sacral OM. Now returning with Fever and hematuria Sepsis - Urosepsis, resolving Likely Secondary to UTI c/w bacteremia UCx 12/10/18 - E. coli Blood Cx 12/10/18 - E .colil; 12/14 Bcx NTD UCx 11/10/18 - P.a. 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 No contrast enhancement to suggest recurrent tumor is evident currently. There is evidence of old peripheral hemorrhage, presumably related to the prior surgery. 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 Negative for acute intracranial bleed, mass effect, infarct, or contrast enhancing lesion. 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 HTN HLD BPH Dm2 s/p appendectomy s/p tonsillectomy CAD seizure disorder SNF resident sacral decubitus ulcer, FTT s/p PEG 11/05/18 S/P Peg MRSA, VRE colonized Plan: - Cont Ceftriaxone 2g Q24hr #10/01 ( End date 12/25/18) - 12/13/18 SP Cefepime #1 and flagyl #1 - Monitor CBC and Temps - 11/30 S/P Meropenem #6 to PO Cipro for PsA UTI and PNA (abx d # for PsA sacral OM) - 11/25 S/P Vancomycin #14 - 11/12 SP Cefepime #2 - 11/10 SP IV Vancomycin #32, Zosyn #23 - 10/19 Sp Ceftriaxone #8 - 10/12/18 SP Cefepime #3 -wound care per surgical team -PEG care -aspiration precautions -f/u repeat Bcx x2 Thank you for this consult. We will continue to follow the patient during this hospitalization. Subjective Allergies: Coded Allergies: No Known Allergies (Unverified , 09/27/18) Subjective afebrile no leukocytosis repeat Bcx NTD Objective Vital Signs Last 24 Hour Vital Signs Date Time Temp Pulse Resp B/P (MAP) Pulse Ox O2 Delivery O2 Flow Rate FiO2 12/16/18 17:22 117 110/76 12/16/18 16:00 98.7 113 18 110/79 (89) 98 12/16/18 16:00 112 12/16/18 12:14 113 132/95 12/16/18 12:00 133 12/16/18 12:00 98.5 128 20 132/95 (107) 98 12/16/18 09:00 Nasal Cannula 2.0 12/16/18 08:00 113 12/16/18 08:00 98.9 114 20 133/80 (97) 100 12/16/18 05:58 107 132/64 12/16/18 04:48 97.7 12/16/18 04:00 98.3 107 20 132/64 (86) 98 12/16/18 04:00 119 12/16/18 00:47 123 133/87 12/16/18 00:00 97.7 123 19 133/87 (102) 99 12/16/18 00:00 123 12/15/18 21:00 Nasal Cannula 2.0 12/15/18 20:00 120 12/15/18 20:00 98.5 121 19 146/88 (107) 99 Height (Feet): 5 Height (Inches): 10.00 Weight (Pounds): 127 Objective Gen: NAD on NC HEENT: NCAT, MMM, EOMI LUNGS: CTAB, No W CARDS: RRR, S1, S2 ABD: Soft, NT, ND, PEG ( No e/p) Microbiology Date/Time Source Procedure Growth Status 12/14/18 14:25 Blood Blood Culture - Preliminary NO GROWTH AFTER 24 HOURS Resulted 12/14/18 14:15 Blood Blood Culture - Preliminary NO GROWTH AFTER 24 HOURS Resulted Laboratory Tests Test 12/16/18 08:30 White Blood Count 8.9 K/UL (4.8-10.8) Red Blood Count 3.60 M/UL (4.70-6.10) L Hemoglobin 10.3 G/DL (14.2-18.0) L Hematocrit 32.8 % (42.0-52.0) L Mean Corpuscular Volume 91 FL (80-99) Mean Corpuscular Hemoglobin 28.6 PG (27.0-31.0) Mean Corpuscular Hemoglobin Concent 31.4 G/DL (32.0-36.0) L Red Cell Distribution Width 14.9 % (11.6-14.8) H Platelet Count 294 K/UL (150-450) Mean Platelet Volume 5.9 FL (6.5-10.1) L Neutrophils (%) (Auto) 80.4 % (45.0-75.0) H Lymphocytes (%) (Auto) 11.6 % (20.0-45.0) L Monocytes (%) (Auto) 5.6 % (1.0-10.0) Eosinophils (%) (Auto) 1.5 % (0.0-3.0) Basophils (%) (Auto) 0.9 % (0.0-2.0) Sodium Level 136 MMOL/L (136-145) Potassium Level 4.4 MMOL/L (3.5-5.1) Chloride Level 96 MMOL/L (98-107) L Carbon Dioxide Level 38 MMOL/L (21-32) H Anion Gap 2 mmol/L (5-15) L Blood Urea Nitrogen 12 mg/dL (7-18) Creatinine 0.5 MG/DL (0.55-1.30) L Estimat Glomerular Filtration Rate > 60 mL/min (>60) Glucose Level 164 MG/DL (74-106) H Calcium Level 9.0 MG/DL (8.5-10.1) Current Medications Medications (Trade) Dose Ordered Sig/Chace Route PRN Reason Start Time Stop Time Status Last Admin Dose Admin Acetaminophen (Tylenol) 650 mg Q4H PRN ORAL Mild Pain/Temp > 100.5 12/12/18 14:06 01/11/19 14:05 Acetaminophen/ Hydrocodone Bitart (Ophir 5/325) 1 tab Q4H PRN ORAL Moderate Pain (Pain Scale 4-6) 12/14/18 22:07 12/19/18 14:06 12/15/18 09:43 Ceftriaxone Sodium 2 gm/ Dextrose 55 ml @ 110 mls/hr DAILY IVPB 12/13/18 10:00 12/20/18 09:59 12/16/18 09:36 Chlorhexidine Gluconate (Susannah-Hex 2%) 1 applic DAILY@2000 TOPIC 12/12/18 20:00 01/09/19 19:59 12/15/18 20:31 Dextrose (Dextrose 50%) 25 ml Q30M PRN IV Hypoglycemia 12/12/18 14:30 01/09/19 06:29 Dextrose (Dextrose 50%) 50 ml Q30M PRN IV Hypoglycemia 12/12/18 14:30 01/09/19 06:29 Diltiazem HCl (Cardizem) 90 mg Q6HR ORAL 12/16/18 12:00 01/15/19 11:59 12/16/18 17:22 Divalproex Sodium (Depakote Sprinkles) 500 mg Q12HR GT 12/13/18 21:00 01/12/19 20:59 12/16/18 09:35 Finasteride (Proscar) 5 mg DAILY@2100 ORAL 12/12/18 21:00 01/09/19 20:59 12/15/18 20:32 Heparin Sodium (Porcine) (Heparin 5000 units/ml) 5,000 units EVERY 8 HOURS SUBQ 12/12/18 22:00 01/10/19 21:59 12/16/18 15:30 Insulin Aspart (NovoLOG) BEFORE MEALS AND HS SUBQ 12/12/18 16:30 01/09/19 06:29 12/16/18 17:16 Lamotrigine (LaMICtal) 50 mg DAILY ORAL 12/13/18 09:00 01/09/19 08:59 12/16/18 09:35 Morphine Sulfate (Morphine Sulfate) 4 mg Q6H PRN IVP Severe Pain (Pain Scale 7-10) 12/12/18 14:07 12/19/18 14:06 12/16/18 04:18 Sitagliptin Phosphate (Januvia) 50 mg Q24H ORAL 12/13/18 06:30 01/12/19 06:29 12/16/18 05:58 Tamsulosin HCl (Flomax) 0.4 mg BEDTIME ORAL 12/12/18 21:00 01/09/19 20:59 12/15/18 20:32 Brandie Carlos M.D. Dec 16, 2018 18:03
--- NOTE | 2018-12-16 19:40 | NUR ---
HAND-OFF: Report given to Nuha. Patient sleeping comfortably. Denies pain.
--- NOTE | 2018-12-16 19:56 | NUR ---
NURSE NOTES: Received report from Julio MURILLO. Patient is awake, lying semi-fowlers, resting comfortably.No s/sx of acute distress, denies pain at this time.On 2L N/C.AOx1, unable to make needs known, aphasic. Left upper arm PICC flushed, patent. No erythema, bleeding, infiltration noted. Gt flushed, patent. Patient is on low air loss mattress for appropriate wound management, F/C draining to gravity, bed lowest position, brakes on, siderails upx3. Siderails padded following seizures precautions, call light within reach. Will continue plan of care.
[2018-12-16 20:00] VITALS: BP 125/75
[2018-12-16] MEDS: Tamsulosin 0.4mg cap ORAL SCH (21:46)
[2018-12-16] MEDS: Dyna-Hex 2% Top Sol 2oz TOPIC SCH (21:53)
[2018-12-17] VITALS: BP 108/73
[2018-12-17] MEDS: dilTIAZem HCl 90mg tab ORAL SCH ×3 (00:39→11:24)
[2018-12-17 04:00] VITALS: BP 115/77
[2018-12-17] MEDS: sitaGLIPtin 50mg tab ORAL SCH (05:48)
[2018-12-17] MEDS: NovoLOG Insulin Flexpen SUBQ SCH ×2 (05:50→11:26)
[2018-12-17] MEDS: Heparin 5000 units/ml inj SUBQ SCH ×2 (05:54→14:53)
[2018-12-17 07:08] LABS: HEMATOCRIT 29.1 % (42.0-52.0); HEMOGLOBIN 9.5 G/DL (14.2-18.0); MEAN CORPUSCULAR VOLUME 91 FL (80-99); PLATELET COUNT 311 K/UL (150-450); RED CELL DISTRIBUTION WIDTH 15.2 % (11.6-14.8); WHITE BLOOD COUNT 13.6 K/UL (4.8-10.8)
--- NOTE | 2018-12-17 07:24 | NUR ---
HAND-OFF: Report given to CHIDI Veras, patient sleeping in semi-loza's, resting comfortably in stable condition.
[2018-12-17 07:28] LABS: ALANINE AMINOTRANSFERASE 10 U/L (12-78); ALBUMIN 1.7 G/DL (3.4-5.0); ALBUMIN/GLOBULIN RATIO 0.4 (1.0-2.7); ALKALINE PHOSPHATASE 62 U/L (46-116); ANION GAP 4 mmol/L (5-15); ASPARTATE AMINO TRANSFERASE 18 U/L (15-37); BILIRUBIN,TOTAL 0.2 MG/DL (0.2-1.0); BLOOD UREA NITROGEN 12 mg/dL (7-18); CALCIUM 8.8 MG/DL (8.5-10.1); CARBON DIOXIDE 35 MMOL/L (21-32); CHLORIDE 97 MMOL/L (98-107); CREATININE 0.4 MG/DL (0.55-1.30); POTASSIUM 4.1 MMOL/L (3.5-5.1); SODIUM 136 MMOL/L (136-145)
--- NOTE | 2018-12-17 07:48 | NUR ---
NURSE NOTES: Nurse report given by CHIDI Breen. Patient's sleeping at semi-loza position. Patient's comfortable, no sign of distress or SOB. Bed at lowest position, break engaged, call light within reach. Mota intact, soft restraints applied on both wrist. Patient's on nasal cannula 2L, G-tube is running at 50ml/hr.
[2018-12-17 08:00] VITALS: BP 116/68
--- NOTE | 2018-12-17 08:17 | NUR ---
NURSE NOTES: Left message with Dr. Carlos regarding patient's WBC level of 13 this morning; awaiting response.
[2018-12-17] MEDS: cefTRIAXone 2 GM in D5W 55 ML IVPB SCH (08:47)
[2018-12-17] MEDS: Depakote 125mg Sprinkles GT SCH (08:57)
--- NOTE | 2018-12-17 09:48 | Cardiac Electrophysiology PN ---
Assessment/Plan Assessment/Plan 1. SVT with rapid ventricular response. Better with Cardizem 90 q 6. EF 50% 2. Troponin leak 1.7> 1.3. No CP 3. Hypertension. On Cardizem 90 q6 4. Sinus tach likely due to sepsis as WBC was almost 20K on 12/13/18 . On Abx WBC down to 10 K 5. Dysphagia, status post PEG placement. 6. Diabetes. 7. Encephalopathy. 8. Hematuria. Resolved after Mota was advanced by Dr Rousseau 9. History of glioblastoma. LUCIO RN Subjective Subjective More alert but still in restraints. Objective Last 24 Hour Vital Signs Date Time Temp Pulse Resp B/P (MAP) Pulse Ox O2 Delivery O2 Flow Rate FiO2 12/17/18 09:00 Nasal Cannula 2.0 12/17/18 08:07 Nasal Cannula 2.0 12/17/18 08:00 110 12/17/18 08:00 98.2 110 20 116/68 (84) 98 12/17/18 05:48 121 115/77 12/17/18 04:00 117 12/17/18 04:00 98.0 121 18 115/77 (90) 100 12/17/18 00:39 121 108/73 12/17/18 00:00 121 12/17/18 00:00 98.0 121 18 108/73 (85) 98 12/16/18 21:00 Nasal Cannula 2.0 12/16/18 20:00 98.4 128 18 125/75 (92) 98 12/16/18 20:00 125 12/16/18 17:22 117 110/76 12/16/18 16:00 98.7 113 18 110/79 (89) 98 12/16/18 16:00 112 12/16/18 12:14 113 132/95 12/16/18 12:00 133 12/16/18 12:00 98.5 128 20 132/95 (107) 98 Intake and Output 12/16/18 12/17/18 18:59 06:59 Intake Total 850 ml 420 ml Output Total 300 ml 600 ml Balance 550 ml -180 ml Intake Oral 300 ml Free Water 100 ml Tube Feeding 550 ml 320 ml Output Urine Total 300 ml 600 ml # Bowel Movements 2 4 Laboratory Tests Test 12/17/18 05:38 White Blood Count 13.6 K/UL (4.8-10.8) #H Red Blood Count 3.20 M/UL (4.70-6.10) L Hemoglobin 9.5 G/DL (14.2-18.0) L Hematocrit 29.1 % (42.0-52.0) L Mean Corpuscular Volume 91 FL (80-99) Mean Corpuscular Hemoglobin 29.6 PG (27.0-31.0) Mean Corpuscular Hemoglobin Concent 32.5 G/DL (32.0-36.0) Red Cell Distribution Width 15.2 % (11.6-14.8) H Platelet Count 311 K/UL (150-450) Mean Platelet Volume 5.8 FL (6.5-10.1) L Neutrophils (%) (Auto) % (45.0-75.0) Lymphocytes (%) (Auto) % (20.0-45.0) Monocytes (%) (Auto) % (1.0-10.0) Eosinophils (%) (Auto) % (0.0-3.0) Basophils (%) (Auto) % (0.0-2.0) Differential Total Cells Counted 100 Neutrophils % (Manual) 88 % (45-75) H Lymphocytes % (Manual) 4 % (20-45) L Monocytes % (Manual) 5 % (1-10) Eosinophils % (Manual) 0 % (0-3) Basophils % (Manual) 1 % (0-2) Band Neutrophils 2 % (0-8) Platelet Estimate Adequate Platelet Morphology Normal Clumped Platelets 1+ Anisocytosis 1+ Sodium Level 136 MMOL/L (136-145) Potassium Level 4.1 MMOL/L (3.5-5.1) Chloride Level 97 MMOL/L (98-107) L Carbon Dioxide Level 35 MMOL/L (21-32) H Anion Gap 4 mmol/L (5-15) L Blood Urea Nitrogen 12 mg/dL (7-18) Creatinine 0.4 MG/DL (0.55-1.30) L Estimat Glomerular Filtration Rate > 60 mL/min (>60) Glucose Level 199 MG/DL (74-106) H Calcium Level 8.8 MG/DL (8.5-10.1) Phosphorus Level 3.0 MG/DL (2.5-4.9) Magnesium Level 1.8 MG/DL (1.8-2.4) Total Bilirubin 0.2 MG/DL (0.2-1.0) Aspartate Amino Transf (AST/SGOT) 18 U/L (15-37) Alanine Aminotransferase (ALT/SGPT) 10 U/L (12-78) L Alkaline Phosphatase 62 U/L (46-116) Total Protein 5.8 G/DL (6.4-8.2) L Albumin 1.7 G/DL (3.4-5.0) L Globulin 4.1 g/dL Albumin/Globulin Ratio 0.4 (1.0-2.7) L Microbiology Date/Time Source Procedure Growth Status 12/14/18 14:25 Blood Blood Culture - Preliminary NO GROWTH AFTER 48 HOURS Resulted 12/14/18 14:15 Blood Blood Culture - Preliminary NO GROWTH AFTER 48 HOURS Resulted Objective HEAD AND NECK: No JVD. LUNGS: Clear. CARDIOVASCULAR: Tachy Regular S1 and S2 with no gallop or murmur. ABDOMEN: Status post G-tube. EXTREMITIES: No pitting edema. Huy Valladares MD Dec 17, 2018 09:48
--- NOTE | 2018-12-17 09:55 | Diagnostic Imaging Report ---
Indication: Dysphasia Procedure and findings: Real-time fluoroscopic imaging performed in a lateral projection in conjunction with the speech pathologist evaluation. Variable consistencies of barium given per mouth. Findings: Significant abnormalities of both oral and pharyngeal phases of swallowing are demonstrated. Trace laryngeal penetration demonstrated. No cough. No aspiration identified. Significant swallowing deficits are noted. Total fluoroscopic time: 206 seconds. Abnormal video swallow. Please refer to speech pathology evaluation for more information.
--- NOTE | 2018-12-17 10:52 | Infectious Diseases Prog Note ---
Assessment/Plan Assessment/Plan 68 yo male who was recently admitted 11/12/18 - 11/17/18 with PNA, UTI and sacral OM. Now returning with Fever and hematuria Sepsis - Urosepsis, resolving Likely Secondary to UTI c/w bacteremia UCx 12/10/18 - E. coli Blood Cx 12/10/18 - E .colil; 12/14 Bcx NTD UCx 11/10/18 - P.a. 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 No contrast enhancement to suggest recurrent tumor is evident currently. There is evidence of old peripheral hemorrhage, presumably related to the prior surgery. 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 Negative for acute intracranial bleed, mass effect, infarct, or contrast enhancing lesion. 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 HTN HLD BPH Dm2 s/p appendectomy s/p tonsillectomy CAD seizure disorder SNF resident sacral decubitus ulcer, FTT s/p PEG 11/05/18 S/P Peg MRSA, VRE colonized Plan: - Cont Ceftriaxone 2g Q24hr #10/31 ( End date 12/25/18) - 12/13/18 SP Cefepime #1 and flagyl #1 - Monitor CBC and Temps - 11/30 S/P Meropenem #6 to PO Cipro for PsA UTI and PNA (abx d # for PsA sacral OM) - 11/25 S/P Vancomycin #14 - 11/12 SP Cefepime #2 - 11/10 SP IV Vancomycin #32, Zosyn #23 - 10/19 Sp Ceftriaxone #8 - 10/12/18 SP Cefepime #3 -wound care per surgical team -PEG care -aspiration precautions -f/u repeat Bcx x2 Thank you for this consult. We will continue to follow the patient during this hospitalization. Subjective Allergies: Coded Allergies: No Known Allergies (Unverified , 09/27/18) Subjective afebrile mild leukocytosis repeat Bcx NTD Objective Vital Signs Last 24 Hour Vital Signs Date Time Temp Pulse Resp B/P (MAP) Pulse Ox O2 Delivery O2 Flow Rate FiO2 12/17/18 09:00 Nasal Cannula 2.0 12/17/18 08:07 Nasal Cannula 2.0 12/17/18 08:00 110 12/17/18 08:00 98.2 110 20 116/68 (84) 98 12/17/18 05:48 121 115/77 12/17/18 04:00 117 12/17/18 04:00 98.0 121 18 115/77 (90) 100 12/17/18 00:39 121 108/73 12/17/18 00:00 121 12/17/18 00:00 98.0 121 18 108/73 (85) 98 12/16/18 21:00 Nasal Cannula 2.0 12/16/18 20:00 98.4 128 18 125/75 (92) 98 12/16/18 20:00 125 12/16/18 17:22 117 110/76 12/16/18 16:00 98.7 113 18 110/79 (89) 98 12/16/18 16:00 112 12/16/18 12:14 113 132/95 12/16/18 12:00 133 12/16/18 12:00 98.5 128 20 132/95 (107) 98 Height (Feet): 5 Height (Inches): 10.00 Weight (Pounds): 127 Objective Gen: NAD on NC HEENT: NCAT, MMM, EOMI LUNGS: CTAB, No W CARDS: RRR, S1, S2 ABD: Soft, NT, ND, PEG ( No e/p) Microbiology Date/Time Source Procedure Growth Status 12/14/18 14:25 Blood Blood Culture - Preliminary NO GROWTH AFTER 48 HOURS Resulted 12/14/18 14:15 Blood Blood Culture - Preliminary NO GROWTH AFTER 48 HOURS Resulted Laboratory Tests Test 12/17/18 05:38 White Blood Count 13.6 K/UL (4.8-10.8) #H Red Blood Count 3.20 M/UL (4.70-6.10) L Hemoglobin 9.5 G/DL (14.2-18.0) L Hematocrit 29.1 % (42.0-52.0) L Mean Corpuscular Volume 91 FL (80-99) Mean Corpuscular Hemoglobin 29.6 PG (27.0-31.0) Mean Corpuscular Hemoglobin Concent 32.5 G/DL (32.0-36.0) Red Cell Distribution Width 15.2 % (11.6-14.8) H Platelet Count 311 K/UL (150-450) Mean Platelet Volume 5.8 FL (6.5-10.1) L Neutrophils (%) (Auto) % (45.0-75.0) Lymphocytes (%) (Auto) % (20.0-45.0) Monocytes (%) (Auto) % (1.0-10.0) Eosinophils (%) (Auto) % (0.0-3.0) Basophils (%) (Auto) % (0.0-2.0) Differential Total Cells Counted 100 Neutrophils % (Manual) 88 % (45-75) H Lymphocytes % (Manual) 4 % (20-45) L Monocytes % (Manual) 5 % (1-10) Eosinophils % (Manual) 0 % (0-3) Basophils % (Manual) 1 % (0-2) Band Neutrophils 2 % (0-8) Platelet Estimate Adequate Platelet Morphology Normal Clumped Platelets 1+ Anisocytosis 1+ Sodium Level 136 MMOL/L (136-145) Potassium Level 4.1 MMOL/L (3.5-5.1) Chloride Level 97 MMOL/L (98-107) L Carbon Dioxide Level 35 MMOL/L (21-32) H Anion Gap 4 mmol/L (5-15) L Blood Urea Nitrogen 12 mg/dL (7-18) Creatinine 0.4 MG/DL (0.55-1.30) L Estimat Glomerular Filtration Rate > 60 mL/min (>60) Glucose Level 199 MG/DL (74-106) H Calcium Level 8.8 MG/DL (8.5-10.1) Phosphorus Level 3.0 MG/DL (2.5-4.9) Magnesium Level 1.8 MG/DL (1.8-2.4) Total Bilirubin 0.2 MG/DL (0.2-1.0) Aspartate Amino Transf (AST/SGOT) 18 U/L (15-37) Alanine Aminotransferase (ALT/SGPT) 10 U/L (12-78) L Alkaline Phosphatase 62 U/L (46-116) Total Protein 5.8 G/DL (6.4-8.2) L Albumin 1.7 G/DL (3.4-5.0) L Globulin 4.1 g/dL Albumin/Globulin Ratio 0.4 (1.0-2.7) L Current Medications Medications (Trade) Dose Ordered Sig/Chace Route PRN Reason Start Time Stop Time Status Last Admin Dose Admin Acetaminophen (Tylenol) 650 mg Q4H PRN ORAL Mild Pain/Temp > 100.5 12/12/18 14:06 01/11/19 14:05 Acetaminophen/ Hydrocodone Bitart ([place] 5/325) 1 tab Q4H PRN ORAL Moderate Pain (Pain Scale 4-6) 12/14/18 22:07 12/19/18 14:06 12/15/18 09:43 Ceftriaxone Sodium 2 gm/ Dextrose 55 ml @ 110 mls/hr DAILY IVPB 12/13/18 10:00 12/20/18 09:59 12/17/18 08:47 Chlorhexidine Gluconate ([place]-Hex 2%) 1 applic DAILY@2000 TOPIC 12/12/18 20:00 01/09/19 19:59 12/16/18 21:53 Dextrose (Dextrose 50%) 25 ml Q30M PRN IV Hypoglycemia 12/12/18 14:30 01/09/19 06:29 Dextrose (Dextrose 50%) 50 ml Q30M PRN IV Hypoglycemia 12/12/18 14:30 01/09/19 06:29 Diltiazem HCl (Cardizem) 90 mg Q6HR ORAL 12/16/18 12:00 01/15/19 11:59 12/17/18 05:48 Divalproex Sodium (Depakote Sprinkles) 500 mg Q12HR GT 12/13/18 21:00 01/12/19 20:59 12/17/18 08:57 Finasteride (Proscar) 5 mg DAILY@2100 ORAL 12/12/18 21:00 01/09/19 20:59 12/16/18 21:45 Heparin Sodium (Porcine) (Heparin 5000 units/ml) 5,000 units EVERY 8 HOURS SUBQ 12/12/18 22:00 01/10/19 21:59 12/17/18 05:54 Insulin Aspart (NovoLOG) BEFORE MEALS AND HS SUBQ 12/12/18 16:30 01/09/19 06:29 12/17/18 05:50 Lamotrigine (LaMICtal) 50 mg DAILY ORAL 12/13/18 09:00 01/09/19 08:59 12/17/18 08:47 Morphine Sulfate (Morphine Sulfate) 4 mg Q6H PRN IVP Severe Pain (Pain Scale 7-10) 12/12/18 14:07 12/19/18 14:06 12/16/18 04:18 Sitagliptin Phosphate (Januvia) 50 mg Q24H ORAL 12/13/18 06:30 01/12/19 06:29 12/17/18 05:48 Tamsulosin HCl (Flomax) 0.4 mg BEDTIME ORAL 12/12/18 21:00 01/09/19 20:59 12/16/18 21:46 Brandie Carlos M.D. Dec 17, 2018 10:52
[2018-12-17] MEDS: HYDROcodone/Acetamin 5/325 tab ORAL PRN (11:27)
[2018-12-17] MEDS ORDERED: DEPAKOTE SPRIN125 M1 GT (11:51)
[2018-12-17] MEDS ORDERED: JANUVIA50 MG ORAL (11:51)
[2018-12-17] MEDS ORDERED: FINASTERIDE5 MG ORAL (11:51)
[2018-12-17] MEDS ORDERED: LAMICTAL25 MG ORAL (11:51)
[2018-12-17] MEDS ORDERED: CARDIZEM90 MG ORAL (11:51)
--- NOTE | 2018-12-17 11:53 | Pulmonology Progress Note ---
Assessment/Plan Problems: (1) At high risk for aspiration (2) Sepsis (3) Bacteremia (4) Acute encephalopathy (5) Hematuria (6) Oligodendroglioma (7) Severe malnutrition (8) Diabetes mellitus (9) Hypertension (10) History of CVA (cerebrovascular accident) (11) Sacral decubitus ulcer (12) Tachycardia Assessment/Plan still sinus tachy looks better heart rate still tachy, sinus rhythm now wbc decreasing continue abx check electrolytes no more seizure tolerating feeding Subjective ROS Limited/Unobtainable: No Constitutional: Reports: no symptoms HEENT: Repors: no symptoms Respiratory: Reports: no symptoms Allergies: Coded Allergies: No Known Allergies (Unverified , 09/27/18) Objective Last 24 Hour Vital Signs Date Time Temp Pulse Resp B/P (MAP) Pulse Ox O2 Delivery O2 Flow Rate FiO2 12/17/18 11:40 98 Nasal Cannula 2.0 28 12/17/18 11:24 119 107/73 12/17/18 09:00 Nasal Cannula 2.0 12/17/18 08:07 Nasal Cannula 2.0 12/17/18 08:00 110 12/17/18 08:00 98.2 110 20 116/68 (84) 98 12/17/18 05:48 121 115/77 12/17/18 04:00 117 12/17/18 04:00 98.0 121 18 115/77 (90) 100 12/17/18 00:39 121 108/73 12/17/18 00:00 121 12/17/18 00:00 98.0 121 18 108/73 (85) 98 12/16/18 21:00 Nasal Cannula 2.0 12/16/18 20:00 98.4 128 18 125/75 (92) 98 12/16/18 20:00 125 12/16/18 17:22 117 110/76 12/16/18 16:00 98.7 113 18 110/79 (89) 98 12/16/18 16:00 112 12/16/18 12:14 113 132/95 12/16/18 12:00 133 12/16/18 12:00 98.5 128 20 132/95 (107) 98 Intake and Output 12/16/18 12/17/18 18:59 06:59 Intake Total 850 ml 420 ml Output Total 300 ml 600 ml Balance 550 ml -180 ml Intake Oral 300 ml Free Water 100 ml Tube Feeding 550 ml 320 ml Output Urine Total 300 ml 600 ml # Bowel Movements 2 4 General Appearance: cachetic HEENT: normocephalic, atraumatic Respiratory/Chest: chest wall non-tender, normal breath sounds, chest wall tender Cardiovascular: normal peripheral pulses, normal rate Abdomen: normal bowel sounds, no organomegaly Genitourinary: normal external genitalia Extremities: no clubbing Neurologic/Psychiatric: defective cigarette slitter II-XII grossly normal Microbiology Date/Time Source Procedure Growth Status 12/14/18 14:25 Blood Blood Culture - Preliminary NO GROWTH AFTER 48 HOURS Resulted 12/14/18 14:15 Blood Blood Culture - Preliminary NO GROWTH AFTER 48 HOURS Resulted Laboratory Tests 12/17/18 05:38: White Blood Count 13.6#H, Red Blood Count 3.20L, Hemoglobin 9.5L, Hematocrit 29.1L, Mean Corpuscular Volume 91, Mean Corpuscular Hemoglobin 29.6, Mean Corpuscular Hemoglobin Concent 32.5, Red Cell Distribution Width 15.2H, Platelet Count 311, Mean Platelet Volume 5.8L, Neutrophils (%) (Auto) , Lymphocytes (%) (Auto) , Monocytes (%) (Auto) , Eosinophils (%) (Auto) , Basophils (%) (Auto) , Differential Total Cells Counted 100, Neutrophils % ( Manual) 88H, Lymphocytes % (Manual) 4L, Monocytes % (Manual) 5, Eosinophils % ( Manual) 0, Basophils % (Manual) 1, Band Neutrophils 2, Platelet Estimate Adequate, Platelet Morphology Normal, Clumped Platelets 1+, Anisocytosis 1+, Sodium Level 136, Potassium Level 4.1, Chloride Level 97L, Carbon Dioxide Level 35H, Anion Gap 4L, Blood Urea Nitrogen 12, Creatinine 0.4L, Estimat Glomerular Filtration Rate > 60, Glucose Level 199H, Calcium Level 8.8, Phosphorus Level 3.0, Magnesium Level 1.8, Total Bilirubin 0.2, Aspartate Amino Transf (AST/SGOT ) 18, Alanine Aminotransferase (ALT/SGPT) 10L, Alkaline Phosphatase 62, Total Protein 5.8L, Albumin 1.7L, Globulin 4.1, Albumin/Globulin Ratio 0.4L Current Medications Medications (Trade) Dose Ordered Sig/Chace Route PRN Reason Start Time Stop Time Status Last Admin Dose Admin Acetaminophen (Tylenol) 650 mg Q4H PRN ORAL Mild Pain/Temp > 100.5 12/12/18 14:06 01/11/19 14:05 Acetaminophen/ Hydrocodone Bitart ([place] 5/325) 1 tab Q4H PRN ORAL Moderate Pain (Pain Scale 4-6) 12/14/18 22:07 12/19/18 14:06 12/17/18 11:27 Ceftriaxone Sodium 2 gm/ Dextrose 55 ml @ 110 mls/hr DAILY IVPB 12/13/18 10:00 12/20/18 09:59 12/17/18 08:47 Chlorhexidine Gluconate ([place]-Hex 2%) 1 applic DAILY@2000 TOPIC 12/12/18 20:00 01/09/19 19:59 12/16/18 21:53 Dextrose (Dextrose 50%) 25 ml Q30M PRN IV Hypoglycemia 12/12/18 14:30 01/09/19 06:29 Dextrose (Dextrose 50%) 50 ml Q30M PRN IV Hypoglycemia 12/12/18 14:30 01/09/19 06:29 Diltiazem HCl (Cardizem) 90 mg Q6HR ORAL 12/16/18 12:00 01/15/19 11:59 12/17/18 11:24 Divalproex Sodium (Depakote Sprinkles) 500 mg Q12HR GT 12/13/18 21:00 01/12/19 20:59 12/17/18 08:57 Finasteride (Proscar) 5 mg DAILY@2100 ORAL 12/12/18 21:00 01/09/19 20:59 12/16/18 21:45 Heparin Sodium (Porcine) (Heparin 5000 units/ml) 5,000 units EVERY 8 HOURS SUBQ 12/12/18 22:00 01/10/19 21:59 12/17/18 05:54 Insulin Aspart (NovoLOG) BEFORE MEALS AND HS SUBQ 12/12/18 16:30 01/09/19 06:29 12/17/18 11:26 Lamotrigine (LaMICtal) 50 mg DAILY ORAL 12/13/18 09:00 01/09/19 08:59 12/17/18 08:47 Morphine Sulfate (Morphine Sulfate) 4 mg Q6H PRN IVP Severe Pain (Pain Scale 7-10) 12/12/18 14:07 12/19/18 14:06 12/16/18 04:18 Sitagliptin Phosphate (Januvia) 50 mg Q24H ORAL 12/13/18 06:30 01/12/19 06:29 12/17/18 05:48 Tamsulosin HCl (Flomax) 0.4 mg BEDTIME ORAL 12/12/18 21:00 01/09/19 20:59 12/16/18 21:46 Raul Feng MD Dec 17, 2018 11:53
[2018-12-17 12:00] VITALS: BP 107/73
--- NOTE | 2018-12-17 12:15 | NUR ---
RD ASSESSMENT & RECOMMENDATIONS SEE CARE ACTIVITY FOR COMPLETE ASSESSMENT DAILY ESTIMATED NEEDS: Needs based on wound, wasting, DM / 59kg 30-35 kcals/kg 5888-4197 total kcals 1.25-2 g protein/kg 74-118 g total protein 25-30 mL/kg 3110-8206 total fluid mLs NUTRITION DIAGNOSIS: * Increased kcal/prot needs R/T wound healing, wt loss as evidenced by recent history of sacral stage 4 wound, severe BL LE wasting, 91% [place] Body Weight. * Swallowing difficulty R/T dysphagia w/ h/o brain tumor and CVA as evidenced by s/p recent PEG placement, on GT feeds + oral grat w/ texture modification, poor acceptance. (UPDATED) CURRENT DIET:CCHO HIGH Liquify puree w/ NTL CURRENT TF:Glucerna 1.5 @50 ml ENTERAL NUTRITION RECOMMENDATIONS: Glucerna 1.5 @ 50ml/hr x 24 hrs to provide 1200ml, 1800kcal, 99g prot, 911ml free water * Maintain at goal as tolerated. * HOB over 30 degrees/ water flush per MD ADDITIONAL RECOMMENDATIONS: * Calibrated bedscale wt for accurate CBW * Check lytes daily w/ TF, replete as needed * Wound healing: Ziyad 1pkt BID + Vit C 250mg BID + Zn SO4 220mg daily x10 days * Monitor BGs closely, need for tighter regimen (BGs in the 200's) -> consider long acting insulin * Rec Oral grat diet-> liberalized regular/ texture per BINDER LOCKSTITCH
--- NOTE | 2018-12-17 12:26 | NUR ---
NURSE NOTES: Spoke with Dr. Feng about whether or not carroll is to be d/anna. Per Dr. Feng, contact Dr. Rousseau. Called Dr. Rousseau's office and he is on vacation. Spoke with covering doctor Dr. Palmer whom ordered to d/c carroll and wait for void before discharge. Order noted and carried out.
--- NOTE | 2018-12-17 12:27 | NUR ---
NURSE NOTES: Dr. Evans Palmer said to order the d/c carroll order under Dr. Rousseau because his name isn't under the ordering doctors. Order noted and carried out.
--- NOTE | 2018-12-17 13:12 | NUR ---
NURSE NOTES: Dr. Evans Palmer called back to say he changed his mind on the d/c carroll order. Made him aware that the carroll had already been d/anna and he said to reinsert. Carroll re-inserted without difficulty. Pt still has hematuria.
--- NOTE | 2018-12-17 13:15 | NUR ---
NURSE NOTES: Per Dr. Rousseau and Dr. Palmer, patient to be discharged with carroll.
--- NOTE | 2018-12-17 13:19 | NUR ---
DISCHARGE PLANNED PATIENT WILL BE RETURNING TO [facility] ROOM 111 SKILLED T: [phone] FOR NURSE TO NURSE REPORT [facility] HAS BEEN ARRANGED FOR 1500 PICK TRANSFER FROM [facility]
--- NOTE | 2018-12-17 13:30 | NUR ---
DISCHARGE SWALLOW/SPEECH THERAPY SUMMARY: PATIENT SEEN FOR DYSPHAGIA, SEE SWALLOW EVALUATION AND MODIFIED BARUIM SWALLOW STUDY REPORTS. PER RY MURILLO, PATIENT IS ONLY TAKING A FEW BITES FOR ORAL GRATIFICATION AND REQUIRES PEG FEEDINGS FOR PRIMARY INTAKE. PATIENT TO BE D/C TO [facility] TODAY. GOALS MET FOR NEW STAFF EDUCATED/TRAINED IN POSTED ASPIRATION PRECAUTIONS BUT GOALS FOR INTAKE NOT NEEDED SINCE HE IS ONLY ON ORAL GRAT. QUESTIONABLE IF PATIENT WILL BENEFIT FROM SWALLOW THERAPY HE DOES NOT ALWAYS FOLLOW COMMANDS AND IS MINIMALLY VERBAL AT LEAST TODAY. PLAN: F/UP INDEPENDENT CROP CONSULTANT FOR DYSPHAGIA MANAGEMENT AND TX WITH TRIAL TX IN SWALLOW THERAPY IF ABLE TO PARTICIPATE. D/W CHIDI RAZA AND LEFT MEDICAL RECORDS FOR SNF.
[2018-12-17] MEDS ORDERED: D5W 275ml ONE (13:41)
[2018-12-17] MEDS ORDERED: Tubing IV Secondary IV ONE ×2 (13:41→17:09)
--- NOTE | 2018-12-17 14:36 | Surgery Progress Note ---
Surgery Progress Note Subjective Additional Comments no acute events. Objective Last 24 Hour Vital Signs Date Time Temp Pulse Resp B/P (MAP) Pulse Ox O2 Delivery O2 Flow Rate FiO2 12/17/18 12:00 98.2 115 22 107/73 (84) 98 12/17/18 11:40 98 Nasal Cannula 2.0 28 12/17/18 11:24 119 107/73 12/17/18 09:00 Nasal Cannula 2.0 12/17/18 08:07 Nasal Cannula 2.0 12/17/18 08:00 110 12/17/18 08:00 98.2 110 20 116/68 (84) 98 12/17/18 05:48 121 115/77 12/17/18 04:00 117 12/17/18 04:00 98.0 121 18 115/77 (90) 100 12/17/18 00:39 121 108/73 12/17/18 00:00 121 12/17/18 00:00 98.0 121 18 108/73 (85) 98 12/16/18 21:00 Nasal Cannula 2.0 12/16/18 20:00 98.4 128 18 125/75 (92) 98 12/16/18 20:00 125 12/16/18 17:22 117 110/76 12/16/18 16:00 98.7 113 18 110/79 (89) 98 12/16/18 16:00 112 I&O Intake and Output 12/16/18 12/17/18 19:00 07:00 Intake Total 800 ml 470 ml Output Total 300 ml 600 ml Balance 500 ml -130 ml Intake Oral 300 ml Free Water 100 ml Tube Feeding 500 ml 370 ml Output Urine Total 300 ml 600 ml # Bowel Movements 2 4 Dressing: saturated Wound: other Drains: other Cardiovascular: RSR Respiratory: decreased breath sounds Abdomen: soft, present bowel sounds, non-distended Extremities: no cyanosis Laboratory Tests Test 12/17/18 05:38 White Blood Count 13.6 K/UL (4.8-10.8) #H Red Blood Count 3.20 M/UL (4.70-6.10) L Hemoglobin 9.5 G/DL (14.2-18.0) L Hematocrit 29.1 % (42.0-52.0) L Mean Corpuscular Volume 91 FL (80-99) Mean Corpuscular Hemoglobin 29.6 PG (27.0-31.0) Mean Corpuscular Hemoglobin Concent 32.5 G/DL (32.0-36.0) Red Cell Distribution Width 15.2 % (11.6-14.8) H Platelet Count 311 K/UL (150-450) Mean Platelet Volume 5.8 FL (6.5-10.1) L Neutrophils (%) (Auto) % (45.0-75.0) Lymphocytes (%) (Auto) % (20.0-45.0) Monocytes (%) (Auto) % (1.0-10.0) Eosinophils (%) (Auto) % (0.0-3.0) Basophils (%) (Auto) % (0.0-2.0) Differential Total Cells Counted 100 Neutrophils % (Manual) 88 % (45-75) H Lymphocytes % (Manual) 4 % (20-45) L Monocytes % (Manual) 5 % (1-10) Eosinophils % (Manual) 0 % (0-3) Basophils % (Manual) 1 % (0-2) Band Neutrophils 2 % (0-8) Platelet Estimate Adequate Platelet Morphology Normal Clumped Platelets 1+ Anisocytosis 1+ Sodium Level 136 MMOL/L (136-145) Potassium Level 4.1 MMOL/L (3.5-5.1) Chloride Level 97 MMOL/L (98-107) L Carbon Dioxide Level 35 MMOL/L (21-32) H Anion Gap 4 mmol/L (5-15) L Blood Urea Nitrogen 12 mg/dL (7-18) Creatinine 0.4 MG/DL (0.55-1.30) L Estimat Glomerular Filtration Rate > 60 mL/min (>60) Glucose Level 199 MG/DL (74-106) H Calcium Level 8.8 MG/DL (8.5-10.1) Phosphorus Level 3.0 MG/DL (2.5-4.9) Magnesium Level 1.8 MG/DL (1.8-2.4) Total Bilirubin 0.2 MG/DL (0.2-1.0) Aspartate Amino Transf (AST/SGOT) 18 U/L (15-37) Alanine Aminotransferase (ALT/SGPT) 10 U/L (12-78) L Alkaline Phosphatase 62 U/L (46-116) Total Protein 5.8 G/DL (6.4-8.2) L Albumin 1.7 G/DL (3.4-5.0) L Globulin 4.1 g/dL Albumin/Globulin Ratio 0.4 (1.0-2.7) L Plan Problems: (1) Lactic acid increased (2) Diabetes mellitus (3) Hypertension (4) Dysphagia (5) Oligodendroglioma (6) Sacral decubitus ulcer Assessment & Plan: Pt presented on admission with full thickness sacral pressure injury with undermining and bone visible at base of wound.Base of wound 90% granular with an area of 10% loose slough noted at undermined area at 11-12o'clock. Wound is malodorous. Small amt. brown exudate noted. Dark brown borders noted. (L)8.5cm x (W)7cm x (D)1.9cm undermining 9-5 by 3.5cm @9o'clock. Bilat groin areas and scrotum erythematous. Non-blanchable erythema without fluctuance noted to R heel and plantar R heel. Non-blanchable erythema without fluctuance noted to L heel. Tx.Plan: Cleanse sacral wound with Saline. Loosely pack with Hydrogel infused Kerlix. Apply Moisture Barrier periwound. Cover with Optifoam.Change Twice Daily and PRN. Apply Moisture Barrier Paste to Bilat groin areas and Scrotum with each Incontinence care. Apply Cavilon Skin Barrier to both Heels. Cover each heel with Optifoam drsg. Change every 7 days and prn. Air Fluidized Mattress. Reposition at least every 2hours or as tolerated. Position with Pillow between knees. Off-load heels with Pillow. (7) History of CVA (cerebrovascular accident) (8) Severe malnutrition Assessment & Plan: DAILY ESTIMATED NEEDS: Needs based on wound, wasting, DM / 59kg 30-35 kcals/kg 7371-4638 total kcals 1.25-2 g protein/kg 74-118 g total protein 25-30 mL/kg 9527-8774 total fluid mLs NUTRITION DIAGNOSIS: * Increased kcal/prot needs R/T wound healing, wt loss as evidenced by recent history of sacral stage 4 wound, severe BL LE wasting, 91% [place] Body Weight. month. * Swallowing difficulty R/T dysphagia w/ h/o brain tumor and CVA as evidenced by s/p recent PEG placement, pending GT feeding. (CURRENT TF:Glytrol @45) ENTERAL NUTRITION RECOMMENDATIONS: Glucerna 1.5 @ 50ml/hr x 24 hrs to provide 1200ml, 1800kcal, 99g prot, 911ml free water * Start @30ml/hr, advance as tolerated 10ml/hr q4-6 hrs to goal * HOB over 30 degrees/ water flush per MD ------ ADDITIONAL RECOMMENDATIONS: * Calibrated bedscale wt for accurate CBW * Check lytes daily w/ TF, replete as needed * Wound healing: Ziyad 1pkt BID F/up w/ WC eval * Monitor BGs closely, need for tighter regimen (BGs in the 200's) -> consider long acting insulin (9) Anemia (10) PEG (percutaneous endoscopic gastrostomy) adjustment/replacement/removal (11) Sepsis Assessment & Plan: leukocytosis resolved anemia lactic acidosis - resolved on IV abx as per ID improving wounds unlikely etiology as chronic no acute infection noted in wounds will monitor (12) Acute encephalopathy (13) acute toxic encephalopathy (14) Uncontrolled seizures (15) Tachycardia (16) Acute respiratory failure (17) UTI (urinary tract infection) (18) Hematuria Harry Rivas Dec 17, 2018 14:36
[2018-12-17] MEDS: Morphine Sulfate 4mg/ml Inj (IV USE ONLY) IVP PRN (14:54)
--- NOTE | 2018-12-17 15:21 | NUR ---
NURSE NOTES: Nurse report given to Bernardino at [facility].
[2018-12-17] MEDS ORDERED: NS 275ml ONE (17:09)
--- NOTE | 2018-12-17 17:41 | NUR ---
NURSE NOTES: Patient's transferred with [facility] staffs. PICC line removed and no active bleeding noted. Patient's in stable condition, no sign of distress or SOB. Patient's comfortable. Patient's wound at sacral is changed and pictures were taken. Bilateral heels are red but blanchable, optifoam were applied on both heels. Patient's belonging was with him, transfer staffs were aware. Tele school lunch monitor disconnected. Patient's transferred with carroll catheter. ID band is removed. Patient was transferred out at 1710.
--- NOTE | 2018-12-17 17:55 | Neurology Progress Note ---
Interim History Interim History ROS Limited/Unobtainable: No Complaints: AMS Events: December 16, [address] Denis Dias Objective Physical Exam Last Vital Signs Date Time Temp Pulse Resp B/P (MAP) Pulse Ox O2 Delivery O2 Flow Rate FiO2 12/17/18 16:00 102 12/17/18 12:00 98.2 22 107/73 (84) 98 12/17/18 11:40 Nasal Cannula 2.0 28 Laboratory Tests Test 12/17/18 05:38 White Blood Count 13.6 K/UL (4.8-10.8) #H Red Blood Count 3.20 M/UL (4.70-6.10) L Hemoglobin 9.5 G/DL (14.2-18.0) L Hematocrit 29.1 % (42.0-52.0) L Mean Corpuscular Volume 91 FL (80-99) Mean Corpuscular Hemoglobin 29.6 PG (27.0-31.0) Mean Corpuscular Hemoglobin Concent 32.5 G/DL (32.0-36.0) Red Cell Distribution Width 15.2 % (11.6-14.8) H Platelet Count 311 K/UL (150-450) Mean Platelet Volume 5.8 FL (6.5-10.1) L Neutrophils (%) (Auto) % (45.0-75.0) Lymphocytes (%) (Auto) % (20.0-45.0) Monocytes (%) (Auto) % (1.0-10.0) Eosinophils (%) (Auto) % (0.0-3.0) Basophils (%) (Auto) % (0.0-2.0) Differential Total Cells Counted 100 Neutrophils % (Manual) 88 % (45-75) H Lymphocytes % (Manual) 4 % (20-45) L Monocytes % (Manual) 5 % (1-10) Eosinophils % (Manual) 0 % (0-3) Basophils % (Manual) 1 % (0-2) Band Neutrophils 2 % (0-8) Platelet Estimate Adequate Platelet Morphology Normal Clumped Platelets 1+ Anisocytosis 1+ Sodium Level 136 MMOL/L (136-145) Potassium Level 4.1 MMOL/L (3.5-5.1) Chloride Level 97 MMOL/L (98-107) L Carbon Dioxide Level 35 MMOL/L (21-32) H Anion Gap 4 mmol/L (5-15) L Blood Urea Nitrogen 12 mg/dL (7-18) Creatinine 0.4 MG/DL (0.55-1.30) L Estimat Glomerular Filtration Rate > 60 mL/min (>60) Glucose Level 199 MG/DL (74-106) H Calcium Level 8.8 MG/DL (8.5-10.1) Phosphorus Level 3.0 MG/DL (2.5-4.9) Magnesium Level 1.8 MG/DL (1.8-2.4) Total Bilirubin 0.2 MG/DL (0.2-1.0) Aspartate Amino Transf (AST/SGOT) 18 U/L (15-37) Alanine Aminotransferase (ALT/SGPT) 10 U/L (12-78) L Alkaline Phosphatase 62 U/L (46-116) Total Protein 5.8 G/DL (6.4-8.2) L Albumin 1.7 G/DL (3.4-5.0) L Globulin 4.1 g/dL Albumin/Globulin Ratio 0.4 (1.0-2.7) L General: well developed, other Head: normocophalic, other Neck: no rigidity EENT: benign Neurologic Exam Mental Status: awake, alert, other Speech: other Language: other Cranial Nerve II: other Cranial Nerves III, IV, : PERRLA, EOMI, other Cranial Nerve V: other Cranial Nerve VII: other Cranial Nerve VIII: other Cranial Nerve IX: other Cranial Nerve XI: other Cranial Nerve XII: other Motor System: other Sensory: other Coordination: other Deep Tendon Reflexes: 1+ bicep (L), 1+ bicep (R), 1+ tricep (L), 1+ tricep (R) , 1+ brachioradialis (L), 1+ brachioradialis (R), 1+ knee (L), 1+ knee (R), 1+ ankle (L), 1+ ankle (R) Stance: other Gait: other Objective Eyes opening spontaneously- Right hemiplegia but w/d x 4 , less strength on RLE /RUE - PERLL - visual joe unable to be obtained but partial hemianopia - preferential gaze to left but can overcome and track with eyes past midline. Impression/Recommendations Problems: (1) Lactic acid increased (2) Bacteremia (3) Diabetes mellitus (4) Hypertension (5) Dysphagia (6) Oligodendroglioma (7) Sacral decubitus ulcer (8) History of CVA (cerebrovascular accident) (9) Severe malnutrition (10) Anemia (11) PEG (percutaneous endoscopic gastrostomy) adjustment/replacement/removal (12) Sepsis (13) Acute encephalopathy (14) acute toxic encephalopathy (15) Uncontrolled seizures (16) Tachycardia (17) Acute respiratory failure (18) UTI (urinary tract infection) (19) Hematuria Status: stable Diagnostic Impression Afebrile, normotensive, with leukocytosis- neurological exam largely stable. Recommendations COntinue PEG feeds Nutritional consult may help SBP<140 Maintain normothermia Maintain normoglycemia with ISS Na 135-145 HgB>8 Replace/ Replete Lytes - Magnesium/ Calcium No indication for neuroimaging at this time Q4 hr Neuro Obs Vidya Sun N.P. Dec 17, 2018 17:55
--- NOTE | 2018-12-18 12:21 | Discharge Summary ---
Discharge Summary Discharge Summary _ DATE OF ADMISSION: 12/10/2018 DATE OF DISCHARGE: 12/17/2018 ADMITTING MD: Dr. Camacho Braun DISCHARGED BY: Dr. Raul Feng CONSULTANTS: Dr. Denis Rousseau [facility] COURSE: Patient is a 68-year-old male, with history of brain CA, presented to ED with chief complaint of hematuria, fever and abnormal laboratories. Patient is a resident of [facility]. According to staff at rehab center, patient developed fever on 12/09/2018. He was also noted to have hematuria coming out from the Mota. He has medical history significant for oligodendroglioma grade 2 brain CA, seizure disorder, type 2 diabetes, old CVA with right hemiparesis, hypertension, coronary artery disease and expressive aphasia. On evaluation at ED, vital signs were stable. He was initially afebrile, but temperature went up to 101.3. Blood work showed WBC of 21. Hemoglobin 12, hematocrit 36. Sodium was low at 130. Potassium 5.0. Chloride 93. BUN 22, creatinine 0.7. Glucose was 293. Troponin was elevated to 0.178 and proBNP was 2434. Lactic acid was elevated to 2.8. Urinalyses with 30-40 urine WBC, too many to count urine RBC, +3 leukocyte esterase, +5 blood, +1 ketones, +3 protein. EKG showed normal sinus rhythm with no acute changes. Chest x-ray showed right basilar atelectasis and possible reticular infiltrates. He was given IV 30 cc/kg bolus. Due to elevated troponin, he was given aspirin. He was started empirically on IV antibiotics. He was then admitted for evaluation of sepsis, UTI, pneumonia, and elevated troponin. He was initially admitted to telemetry. He was started empirically on cefepime and Flagyl. While on the monitor, developed SVT at the rate up to 200s. He was given IV Cardizem and was transferred to ICU. He was placed on seizure precautions. He was continued on Depakote and Vimpat. Losartan was discontinued. He was eventually given Cardizem 60 mg 3 times daily. He had elevated troponin. Possibly from troponin leak. Levels were downtrending. Urine was felipe looking. Urologist was consulted. On evaluation, Mota catheter appeared to be not in the bladder. Balloon was deflated and catheter was pushed back into the bladder and irrigated. There was some mild bleeding noted from the meatus probably from urethral trauma, but urine coming out from Mota catheter appeared felipe-yellow without active bleeding. He was placed on bilateral soft wrist restraints to prevent patient from pulling out catheter" further trauma. He was continued on Flomax and finasteride. Hematuria resolved post Mota repositioning. There were no further recurrence of SVT on Cardizem. He was in sinus rhythm on the monitor. He was eventually transferred out of ICU. He was consulted for evaluation of sepsis. Urine culture showed growth of gram- negative rods. Patient had a history of MRSA pneumonia. He had single episode of high fever. Urine culture showed growth of gram-negative rods. He came in with sacral decubitus ulcer requiring care. Surgery was called to evaluate and assist with care. He had full-thickness sacral pressure injury with undermining and bone visible at the base of the wound. Bilateral groin areas and is chronic to report erythematous. He had non-blanchable erythema without fluctuance noted to bilateral heels he was given wound care. He was placed on air-fluidized mattress with frequent repositioning and offloading. Nutrition was optimized for wound healing. Wound did not appear infected. Patient had a history of left frontal oligodendroglioma, grade 2, status post resection as well as left frontal stroke with baseline right hemiplegia. Neurologist was consulted. Patient had intermittent eye opening and preferential gaze to the left. Neuro exam was stable. There was no indication for neuroimaging per neurologist. Swallow evaluation was done. Patient has tube feeding but takes in food orally for oral gratification. He was placed on strict aspiration precautions. He continued to have low-grade fever, heart rate was elevated. WBC went up to 19. Urine culture showed growth of E. coli. Blood culture with E. coli. He was started on 2 g ceftriaxone IV daily. Sinus tachycardia was attributed to sepsis. Leukocytosis eventually down trended. Repeat blood culture did not isolate any growth. Patient was eventually cleared for discharge back to [facility]. To continue IV antibiotic therapy with ceftriaxone until 12/25/2018. FINAL DIAGNOSES: Sepsis likely secondary to E. coli UTI consistent with bacteremia Acute encephalopathy Sacral decubitus ulcer, stage IV, present on admission SVT with rapid veentricular response, resolved Sinus Tachycardia likely due to sepsis Troponin leak Left frontal oligodendroglioma, grade 2, status post resection CVA with right hemiparesis and expressive aphasia Hematuria secondary to Mota trauma, resolved Hypertension Hyperlipidemia Coronary aretery disease Seizure disorder Severe malnutrition DISPOSITION: Patient was discharged back to [facility]. DISCHARGE MEDICATIONS: Refer to Discharge Medication List. I have been assigned to complete a discharge summary on this account, I was not involved with the patient's management.--TAPAN Almanza Jacqueline Robles NP Dec 18, 2018 12:21
--- NOTE | 2018-12-18 16:06 | Cardiology Report ---
APPROVED REPORT EKG Measurement Heart [id number] Sinus tachycardia Low voltage QRS Possible Inferior infarct, age undetermined Cannot rule out Anteroseptal infarct, age undetermined Abnormal ECG
--- NOTE | 2018-12-21 08:39 | Cardiology Report ---
APPROVED REPORT EXAM: Two-dimensional and M-mode echocardiogram with Doppler and color Doppler. INDICATION Supraventric tachycarida M-Mode DIMENSIONS IVSd0.9 (0.7-1.1cm)Left Atrium (MM)2.6 (1.6-4.0cm) LVDd4.5 (3.5-5.6cm)Aortic Root3.1 (2.0-3.7cm) PWd0.9 (0.7-1.1cm)Aortic Cusp Exc.1.7 (1.5-2.0cm) IVSs3.2 cm LVDs1.3 (2.5-4.0cm) Technically difficult study due to pt's position. Normal left ventricular chamber size, systolic function . Mild daniel-apical hypokinesis. Left ventricular ejection fraction estimated to be 50%. Mild left ventricular hypertrophy by 2-D. Small circumferential pericardial effusion . All other cardiac chamber sizes are within normal limits. Aortic valve calcification with normal cusp excursion . Mildly thickened mitral valve leaflets with normal excursion. Mild mitral annulus and aortic root calcification. Pulmonic valve not well visualized. IVC at size 1.5 cm without physiologic collapse suggestive of mildly increased RA pressure. A color flow and spectral Doppler study was performed and revealed: No aortic insufficiency . Mitral inflow velocities indicates possible pseudo normalization pattern implying moderately elevated left atrial pressure (Grade II ). Trace mitral regurgitation. Trace tricuspid regurgitation. Tricuspid systolic velocities suggests peak right ventricular systolic pressure of 27mmHg.
== END 2018-12-17 17:10 | DRG 871 ==
LOC: EDUNIT# 01:02 → EDBD 01:02 → EDBEDREQ 01:22 → EMR 01:58 → 2E 02:03 → EDBEDREQ 04:28 → ICU 11:17 → 2W 12-11 17:49 → 2E 12-12 14:17
PROC: 02HV33Z Insertion of Infusion Device into Superior Vena Cava, Percutaneous Approach (ICD-10-PCS; principal; 2018-12-10)
DX: A41.9 Sepsis, unspecified organism (principal); L89.154 Pressure ulcer of sacral region, stage 4; E43 Unspecified severe protein-calorie malnutrition; G92 Toxic encephalopathy; G93.40 Encephalopathy, unspecified; I69.351 Hemiplegia and hemiparesis following cerebral infarction affecting right dominant side; N39.0 Urinary tract infection, site not specified; S37.39XA Other injury of urethra, initial encounter; N17.9 Acute kidney failure, unspecified; Z43.1 Encounter for attention to gastrostomy; Z85.841 Personal history of malignant neoplasm of brain; I10 Essential (primary) hypertension; I25.10 Atherosclerotic heart disease of native coronary artery without angina pectoris; G40.909 Epilepsy, unspecified, not intractable, without status epilepticus; E11.9 Type 2 diabetes mellitus without complications; I69.320 Aphasia following cerebral infarction; B96.20 Unspecified Escherichia coli [E. coli] as the cause of diseases classified elsewhere; R31.9 Hematuria, unspecified; E78.5 Hyperlipidemia, unspecified; Z92.3 Personal history of irradiation; Z79.01 Long term (current) use of anticoagulants; N40.1 Benign prostatic hyperplasia with lower urinary tract symptoms; R33.8 Other retention of urine; N31.9 Neuromuscular dysfunction of bladder, unspecified; X58.XXXA Exposure to other specified factors, initial encounter; R13.10 Dysphagia, unspecified
CPT/HCPCS: 36415; 36569; 71045; 74230; 76937; 80048; 80053; 81003; 82550; 82553; 82962; 83605; 83735; 83880; 84100; 84484; 85007; 85025; 85610; 85651; 85730; 86140; 87040; 87070; 87081; 87086; 87181; 92610; 93005; 93306; 93970; 96361; 96365; 96367; 99285; J1815; J8499